=== PATIENT | male | born 1970 | race American Indian/Alaskan Native ===

== ENCOUNTER 2019-11-26 10:38 | Inpatient (IN) | payer MEDICAID, SELFPAY ==
--- NOTE | 2019-11-26 | CT_ITS ---
EXAMINATION: CT ABDOMEN AND PELVIS WITHOUT CONTRAST CLINICAL INFORMATION: Right flank pain COMPARISON: 03/29/2019 and 04/04/2018 TECHNIQUE: Multidetector volumetric imaging was performed from the superior aspect of the liver through the pubic symphysis. Sagittal and coronal reformatted images were obtained on the technologist's workstation. This CT examination was performed using dose optimization techniques as appropriate, variously including the following: *Automated exposure control *Adjustment of mA and/or kV according to patient size (this includes techniques or standardized protocols for targeted exams where dose is matched to indication/reason for exam; i.e. extremities or head) *Use of iterative reconstruction technique DLP: 694 mGy-cm FINDINGS: KIDNEYS AND URETERS: Status post left nephrectomy. Surgical clips in the left renal fossa. No mass. Stable thickening of dura is fashion with associated clips or calcification (image 40/99). Compensatory enlargement of the right kidney. On unenhanced CT a 1.8 cm right upper pole mass (image 33/99) measures 3 Hounsfield units consistent with a cyst. No enhancement on prior CT. No right renal calculi. There is new right perinephric fat stranding and thickening of the renal renal fascia (image 39/99). This suggests acute inflammation such as pyelonephritis or glomerulonephritis. The right ureter is normal in course and caliber. No calculus and no hydronephrosis. LUNG BASES: Minor dependent atelectasis. LIVER, GALLBLADDER, AND BILIARY TREE: The liver is normal in size, shape, and attenuation. No focal hepatic lesion or biliary ductal dilatation is present. The gallbladder is unremarkable with no evidence of radiopaque gallstones, gallbladder wall thickening, or obvious pericholecystic inflammatory changes. PANCREAS: Unremarkable. SPLEEN: There is a small stable laterally positioned accessory spleen (image 26/99). ADRENAL GLANDS: The left adrenal gland is normal in appearance. There is a stable 18 mm right adrenal mass (image 27/99) measuring 10 outside units. This is most consistent with a lipid rich adenoma. BLADDER: The bladder again demonstrates mild wall thickening. No bladder calculus. GASTROINTESTINAL TRACT: The small and large bowel are unremarkable. The appendix is unremarkable. No free air. No free fluid. ABDOMINAL WALL: Postsurgical changes in the left lateral abdominal wall from nephrectomy (image 48/99). LYMPH NODES: No retroperitoneal lymphadenopathy. No pelvic lymphadenopathy. VASCULAR: Surgical clips along the course of the left renal artery. Normal caliber abdominal aorta. No caval or branch vessel abnormality seen. No rich peritoneal collection. PELVIC VISCERA: The prostate and seminal vesicles are symmetric and within normal limits. No pelvic free fluid or lymphadenopathy. Large phlebolith in the right hemipelvis. OSSEOUS STRUCTURES: No suspicious lytic or blastic lesions. IMPRESSION: 1. There is new right perinephric fat stranding and thickening of the renal renal fascia suggesting an acute inflammatory process such as pyelonephritis or glomerulonephritis. Clinical correlation advised. No hydronephrosis. No calculi. 2. Compensatory enlargement of a solitary right kidney following left nephrectomy. Stable right upper pole cyst. 3. Stable 18 mm right adrenal mass. Favor lipid rich adenoma. 4. Stable minor bladder wall thickening.
[2019-11-26 10:56] VITALS: BP 145/94; PULSE 108; RESP 18; TEMP 37.3; O2SAT 98; BMI 32.3
[2019-11-26 11:41] LABS: Glucose Urine UA NEG (NEG); Leukocyte Esterase Urine NEG (NEG); Nitrite Urine NEG (NEG); PH 5.5 (5.0-8.0); Specific Gravity - Urine >= 1.030 (1.005-1.025); Urine Blood NEG (NEG); Urine Ketones NEG (NEG); Urine Protein TRACE MG/DL (NEG-TRACE)
[2019-11-26 11:46] LABS: Color Urine YELLOW
[2019-11-26 11:47] LABS: Appearance Urine CLEAR
[2019-11-26 13:10] LABS: MANUAL DIFF FLAG NO
[2019-11-26] MEDS: Cyclobenzaprine HCl 10 MG TABLET PO (13:11)
[2019-11-26] MEDS: 0.9 % Sodium Chloride 1,000 ML 999 ML IVCONT (13:12)
[2019-11-26 13:13] LABS: Basophils Absolute Auto 0.1 X10*3/uL (0.0-0.2); Basophils Percent Auto 0.4 % (0-2); Eosinophils Absolute Auto 0.2 X10*3/uL (0.0-0.4); Eosinophils Percent Auto 1.7 % (0-4); Hematocrit 48.4 % (42-52); Hemoglobin 16.4 g/dl (14.0-18.0); Imm Gran Abs Auto 0.24 X10*3/uL (0.00-0.03); Imm Gran Pct Auto 1.8 % (0.0-0.4); Lymphocytes Absolute Auto 1.7 X10*3/uL (1.2-4.9); Lymphocytes Percent Auto 12.9 % (20-40); Mean Corpuscular HGB Conc 33.9 g/dl (31.0-36.0); Mean Corpuscular Hemoglobin 31.2 pg (27.0-33.0); Mean Corpuscular Volume 92.2 fL (80-98); Mean Platelet Volume 11.4 fL (9.4-12.4); Monocytes Absolute Auto 1.1 X10*3/uL (0.1-1.2); Monocytes Percent Auto 8.5 % (2-11); Neutrophils Absolute Auto 9.9 X10*3/uL (2.0-8.3); Neutrophils Percent Auto 74.7 % (45-73); Platelet Count 249 X10*3/uL (160-400); Red Blood Count 5.25 X10*6/uL (4.60-5.80); Red Cell Distribution Width 12.8 % (11.0-16.0); White Blood Count 13.3 X10*3/uL (4.8-10.8)
--- NOTE | 2019-11-26 13:15 | ED.ABDPAIN ---
HPI - Abdominal Pain General Chief Complaint: Back Pain/Injury Stated Complaint: kidney pain Time Seen by Provider: 11/26/19 12:12 Source: patient Mode of arrival: ambulatory Limitations: no limitations History of Present Illness HPI narrative: 49yoM c PMHx of asthma, arthritis and PSHx of left kidney removed presenting to the ED c c/o R flank pain while walking today. Reports s red jack to right flank denies injury. Admit to associated increased urgency/frequency. Worse with movement. Relieved c rest. Associated symptoms: denies other symptoms Related Data Home Medications Medication Instructions Recorded Confirmed montelukast [Singulair] 10 mg PO DAILY 11/26/19 11/26/19 nicotine 11/26/19 pregabalin [Lyrica] 150 mg PO BID 11/26/19 11/26/19 Allergies Allergy/AdvReac Type Severity Reaction Status Date / Time ibuprofen [From MOTRIN] Allergy Unknown KIDNEY Verified 11/26/19 11:05 ISSUES mushroom AdvReac Mild VOMITING Verified 11/26/19 11:05 OMNIPAQUE (IV Contrast) Allergy Mild HIVES Uncoded 11/08/19 15:01 Review of Systems Review of Systems Yes all other systems are reviewed and are negative Constitutional: Reports as per HPI, Denies body ache(s), Denies chills, Denies fever(s), Denies headache(s), Denies lethargy, Denies malaise and Denies weakness Eyes: Reports as per HPI Reports as per HPI, Denies dysphagia, Denies headache(s) and Denies odynophagia Cardiovascular: Reports as per HPI, Denies chest pain, Denies Epigastric Pain and Denies dyspnea Respiratory: Reports as per HPI and Denies dyspnea Gastrointestinal: Reports as per HPI, Denies belching, Denies melena, Denies bloating, Denies hematochezia, Denies change in bowel habits, Denies tenesmus, Denies change in stool character, Denies coffee ground emesis, Denies constipation, Denies GI cramping, Denies dysphagia, Denies excessive flatus, Denies early satiety, Denies dyspepsia, Denies heartburn, Denies fecal incontinence, Denies diarrhea, Denies loose stools, Denies nausea, Denies odynophagia, Denies vomiting, Denies hematemesis and Denies other Genitourinary: Reports as per HPI, Denies hematospermia, Denies hematuria, Reports oliguria, Reports difficulty urinating, Denies dysuria, Reports flank pain, Denies penile discharge, Reports urinary frequency, Reports urinary hesitancy, Denies urinary incontinence and Reports urinary urgency Musculoskeletal: Reports as per HPI, Denies numbness and Denies tingling Reports as per HPI, Denies headache(s), Denies numbness, Denies tingling and Denies weakness Endocrine: Reports as per HPI, Denies polyphagia, Denies polydipsia and Denies polyuria Hematologic/Lymphatic: Reports as per HPI Allergic/Immunologic: Reports as per HPI Physical Exam Vital Signs and I&O and Narrative: Vital Signs and I&O: Vital Signs Temp 97.3 F 11/26/19 20:00 Pulse 86 11/26/19 20:00 Resp 18 11/26/19 20:00 BP 137/87 11/26/19 20:00 Pulse Ox 97 11/26/19 20:00 Intake & Output 11/26/19 11/26/19 11/27/19 06:59 18:59 06:59 Intake Total 1000 / 1000 Balance 1000 / 1000 Weight 90.718 kg Intake: Intake, IV Amoun t 1000 / 1000 0.9 % Sodium C hloride 1,000 ml 1000 / 1000 @ 999 mls/hr I VCONT .Q1H1M [facility] Rx#:[id number] Body Mass Index 32.3 All vitals reviewed and pt c mildly hypertensive otherwise all other vitals are within normal limits. Const: General: cooperative, healthy appearing, comfortable, no acute distress, well developed, alert, awake and Physically active Nutritional Appearance: average body habitus Orientation/consciousness: patient oriented x3 Limitations: no limitations HENMT: Head: Yes normal to inspection Ears: hearing grossly normal bilaterally General nose exam: Normal external nose present Face and sinus: Yes normal facial exam Mouth: Normal oral and palatal mucosa present and moist mucous membranes Throat: Yes posterior oropharynx normal Eyes: General: appearance normal, both eyes and all related structures Visual Yu: normal visual yu by confrontation Pupils: Equal, round and reactive pupils present EOM: EOMs intact bilaterally Neck: Neck: Yes normal visual inspection, Yes full ROM, Yes no lymphadenopathy, Yes no meningeal signs, Yes trachea midline and Yes supple Chest: Chest palpation & inspection: normal inspection of the chest Resp: Effort & Inspection: normal respiratory effort and able to speak in complete sentences Auscultation: clear to auscultation bilaterally, no crackles, no rales, no rhonchi and no wheezes Cardio: Rate: regular rate Rhythm: regular rhythm Heart sounds: S1 normal heart sound present and S2 normal heart sound present Peripheral pulses: Peripheral pulses 2+ throughout GI: Inspection: Yes normal to inspection Palpation (GI): Soft to palpation, Tenderness to palpation present (GI) (Right Flank) and No hepatosplenomegaly present Percussion: Yes normal to percussion Auscultation: normal bowel sounds : General: Yes no CVA tenderness Back/Spine/Pelvis: Back: no CVA tenderness Cervical Spine: normal cervical lordosis and cervical ROM normal Thoracic/Lumbar Spine: thoracic and lumbar spine normal to inspection and thoraco-lumbar ROM normal Skin: Lesions: no lesions Rashes: rashes noted (to right flank erythemous) Wounds: no wounds Neuro: General: patient oriented x3, gait normal and no meningeal signs Cranial nerves: Yes Equal, round and reactive pupils present Cognition (Neuro): normal cognition Motor exam (neuro): 5/5 motor strength present throughout Sensory Exam: Normal double simultaneous stimulation for sensation Extrem: General: Yes normal to inspection, Yes full ROM and Yes capillary refill normal Course Course Course Narrative: Patient seen at 12:15PM 49yoM c PMHx of asthma, arthritis and PSHx of left kidney removed presenting to the ED c c/o R flank pain while walking today. Reports s red jack to right flank denies injury. Admit to associated increased urgency/frequency. Worse with movement. Relieved c rest. Denies fevers, N/V, CP/SOB, back pain, hematuria, constipation or diarrhea. - Concern for muscle strain vs kidney stones vs UTI/Pyelonephritis - Plan: Labs, UA, CT scan of abd/pelvis c IV contrast. Provide IVF's, 10 mg of flexeril and re-evaluate Labs Returned 15PM - Pt c Mild elevated WBC at 13,000. Otherwise all other labs WNL. CT scan of abd/pelvis c IV contrast revealed IMPRESSION: 1. There is new right perinephric fat stranding and thickening of the renal renal fascia suggesting an acute inflammatory process such as pyelonephritis or glomerulonephritis. Clinical correlation advised. No hydronephrosis. No calculi. 2. Compensatory enlargement of a solitary right kidney following left nephrectomy. Stable right upper pole cyst. 3. Stable 18 mm right adrenal mass. Favor lipid rich adenoma. 4. Stable minor bladder wall thickening. - Therefore 2 gm of Rocephin ordered at this time. Plan is to admit for UTI/Pyelonephritis. - Pt understands and agrees with plan. MDM - Abdominal Pain Lab Data Result diagrams: 11/26/19 13:06 11/26/19 13:06 Labs: Lab Results 11/26/19 11/26/19 11/26/19 Range/Units 11:28 13:06 13:06 WBC 13.3 H (4.8-10.8) X10*3/uL RBC 5.25 (4.60-5.80) X10*6/uL Hgb 16.4 (14.0-18.0) g/dl Hct 48.4 (42-52) % MCV 92.2 (80-98) fL MCH 31.2 (27.0-33.0) pg MCHC 33.9 (31.0-36.0) g/dl RDW 12.8 (11.0-16.0) % Plt Count 249 (160-400) X10*3/uL MPV 11.4 (9.4-12.4) fL Immature Gran % (Auto) 1.8 H (0.0-0.4) % Neut % (Auto) 74.7 H (45-73) % Lymph % (Auto) 12.9 L (20-40) % [place] % (Auto) 8.5 (2-11) % Eos % (Auto) 1.7 (0-4) % Baso % (Auto) 0.4 (0-2) % Neut # (Auto) 9.9 H (2.0-8.3) X10*3/uL Lymph # (Auto) 1.7 (1.2-4.9) X10*3/uL [place] # (Auto) 1.1 (0.1-1.2) X10*3/uL Eos # (Auto) 0.2 (0.0-0.4) X10*3/uL Baso # (Auto) 0.1 (0.0-0.2) X10*3/uL Abs Immat Gran (auto) 0.24 H (0.00-0.03) X10*3/uL Absolute Nucleated RBC 0.000 (0.0-0.012) X10*3/uL Nucleated RBC % (auto) 0.0 (0.0-0.2) /100WBC Hold Purple Top SEE NOTE Sodium (135-145) mmol/L Potassium (3.3-5.1) mmol/l Chloride (96-108) mmol/L Carbon Dioxide (22-29) mmol/L Anion Gap (12-20) BUN (9-16) mg/dL Creatinine (0.5-1.4) mg/dL Estim Creat Clear Calc Estimated GFR Random Glucose (60-115) mg/dL Lactic Acid (0.5-2.0) mmol/L Calcium (8.4-10.2) mg/dL Urine Color YELLOW Urine Appearance CLEAR Urine pH 5.5 (5.0-8.0) Ur Specific [place] >= 1.030 H (1.005-1.025) Urine Protein TRACE (NEG-TRACE) MG/DL Urine Glucose (UA) NEG (NEG) MG/DL Urine Ketones NEG (NEG) MG/DL Urine Blood NEG (NEG) Urine Nitrite NEG (NEG) Ur Leukocyte Esterase NEG (NEG) Urine RBC (0) /HPF Urine WBC (0-4) /HPF Ur Squamous Epith Cells /LPF Urine Bacteria /LPF 11/26/19 11/26/19 11/26/19 Range/Units 13:06 15:23 15:24 WBC (4.8-10.8) X10*3/uL RBC (4.60-5.80) X10*6/uL Hgb (14.0-18.0) g/dl Hct (42-52) % MCV (80-98) fL MCH (27.0-33.0) pg MCHC (31.0-36.0) g/dl RDW (11.0-16.0) % Plt Count (160-400) X10*3/uL MPV (9.4-12.4) fL Immature Gran % (Auto) (0.0-0.4) % Neut % (Auto) (45-73) % Lymph % (Auto) (20-40) % [place] % (Auto) (2-11) % Eos % (Auto) (0-4) % Baso % (Auto) (0-2) % Neut # (Auto) (2.0-8.3) X10*3/uL Lymph # (Auto) (1.2-4.9) X10*3/uL [place] # (Auto) (0.1-1.2) X10*3/uL Eos # (Auto) (0.0-0.4) X10*3/uL Baso # (Auto) (0.0-0.2) X10*3/uL Abs Immat Gran (auto) (0.00-0.03) X10*3/uL Absolute Nucleated RBC (0.0-0.012) X10*3/uL Nucleated RBC % (auto) (0.0-0.2) /100WBC Hold Purple Top Sodium 137 (135-145) mmol/L Potassium 4.5 (3.3-5.1) mmol/l Chloride 105 (96-108) mmol/L Carbon Dioxide 24 (22-29) mmol/L Anion Gap 13 (12-20) BUN 18 H (9-16) mg/dL Creatinine 1.05 (0.5-1.4) mg/dL Estim Creat Clear Calc 87.7 Estimated GFR > 60 Random Glucose 98 (60-115) mg/dL Lactic Acid 1.2 (0.5-2.0) mmol/L Calcium 9.1 (8.4-10.2) mg/dL Urine Color YELLOW Urine Appearance CLEAR Urine pH 5.5 (5.0-8.0) Ur Specific [place] 1.020 (1.005-1.025) Urine Protein 1+ H (NEG-TRACE) MG/DL Urine Glucose (UA) NEG (NEG) MG/DL Urine Ketones NEG (NEG) MG/DL Urine Blood TRACE (NEG) Urine Nitrite NEG (NEG) Ur Leukocyte Esterase NEG (NEG) Urine RBC 1-4 (0) /HPF Urine WBC 1-4 (0-4) /HPF Ur Squamous Epith Cells TRACE /LPF Urine Bacteria TRACE /LPF Critical Care Time Critical Care Time Critical Care Time: Yes Total Critical Care Time: 45 Attestation: I attest to this document Discharge Plan Discharge Clinical Impression: Acute pyelonephritis, Acute right flank pain Patient Disposition: Admitted As Inpatient Interventions: Admission Worksheet (ED) Last Done: 11/26/19 19:34 Discharge Date/Time: 11/26/19 19:43 [facility] Past Medical History Attestation statement: The following information was validated with the patient. Medical History Arthritis Asthma Surgical History H/O kidney removal H/O neck surgery Previous back surgery Social History Social History Household Members: Spouse and Children Housing: Apartment Do you presently have visiting nurse or other home services: No Alcohol intake: current Alcohol intake frequency: a few times a month Smoking Status: Current every day smoker Years Smoked: 30 Smoked in Last 30 Days: Yes Smoking Quit Date: 0900 Use of substances other than those prescribed or required for medical reasons: No Have you been hit, kicked, punched, or otherwise hurt by someone within the past year? If so, by whom?: No Do you feel safe in your current relationship?: Yes Is there a partner from a previous relationship who is making you feel unsafe now?: No Are you made to feel afraid or neglected: No Advance Directives: No Advance Directives Information Provided: Yes Do you have thoughts of harming others: None Do you have a plan to hurt others: No Plan Recently lost weight without trying: No
[2019-11-26 13:32] LABS: Anion Gap 13 (12-20); Blood Urea Nitrogen 18 mg/dL (9-16); Calcium 9.1 mg/dL (8.4-10.2); Carbon Dioxide 24 mmol/L (22-29); Chloride 105 mmol/L (96-108); Creatinine Clr Calc Pharmacy 87.7; Estimated Glomerular Filt Rate > 60; Glucose Random 98 mg/dL (60-115); Potassium 4.5 mmol/l (3.3-5.1); Sodium 137 mmol/L (135-145)
[2019-11-26 14:29] VITALS: BP 149/89; PULSE 86; RESP 18; O2SAT 97
[2019-11-26 15:06] VITALS: BP 161/83; PULSE 75; RESP 16; TEMP 36.8; O2SAT 99
[2019-11-26 15:34] LABS: Glucose Urine UA NEG (NEG); Leukocyte Esterase Urine NEG (NEG); Nitrite Urine NEG (NEG); PH 5.5 (5.0-8.0); Urine Blood TRACE (NEG); Urine Ketones NEG (NEG); Urine Protein 1+ MG/DL (NEG-TRACE)
[2019-11-26 15:36] LABS: Appearance Urine CLEAR; Color Urine YELLOW
[2019-11-26 15:39] LABS: Squamous Epithelial Cell Urine TRACE /LPF
[2019-11-26 15:40] LABS: Bacteria Urine TRACE /LPF
[2019-11-26 15:49] LABS: Lactic Acid 1.2 mmol/L (0.5-2.0)
[2019-11-26] MEDS: levoFLOXacin/D5W 750 MG/150 ML PIGGYBACK 100 MG IV (16:13)
--- NOTE | 2019-11-26 19:19 | PC.NURSE ---
Report taken from Usha, this RN resuming care. Pt found sitting upright in bed, speaking full sentences, inquiring when he will be admitted to floor. Continue to monitor.
[2019-11-26 20:00] VITALS: BP 137/87; PULSE 86; RESP 18; TEMP 36.3; O2SAT 97
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
[2019-11-26] MEDS: 0.9 % Sodium Chloride Flush 3 ML SYRINGE 2 ML IVFLUSH (20:24)
[2019-11-26] MEDS: oxyCODONE HCl Immed Release 5 MG TABLET PO (21:00)
[2019-11-26] MEDS: 0.9 % Sodium Chloride 1,000 ML 100 ML IVCONT (22:12)
[2019-11-26] MEDS: Flu Vacc QS2020-21(6mos up)/PF 0.5 ML SYRINGE IM (22:15)
[2019-11-26 23:22] VITALS: BP 137/75; PULSE 95; RESP 18; TEMP 36.9; O2SAT 95
[2019-11-27 02:39] VITALS: RESP 18
[2019-11-27] MEDS: Morphine Sulfate 2 MG/ML CARTRIDGE 1 MG IVPUSH (02:39)
--- NOTE | 2019-11-27 04:45 | PC.NURSE ---
Patient alert and oriented, vss, c/o 08/30 R-flank pain unable to give oxycodone on shift. Discussed with ordered for 1mg morphine IV given as ordered. Patient resting in bed eyes closed, NS running at 100ml/hr Will continue to monitor
[2019-11-27] MEDS: oxyCODONE HCl Immed Release 5 MG TABLET PO ×4 (05:19→23:58)
[2019-11-27 05:38] VITALS: BMI 32.4
[2019-11-27 05:59] VITALS: BMI 32.3
[2019-11-27 06:34] LABS: MANUAL DIFF FLAG NO
[2019-11-27 06:55] LABS: Basophils Absolute Auto 0.1 X10*3/uL (0.0-0.2); Basophils Percent Auto 0.5 % (0-2); Eosinophils Absolute Auto 0.2 X10*3/uL (0.0-0.4); Eosinophils Percent Auto 1.7 % (0-4); Hematocrit 45.2 % (42-52); Hemoglobin 14.8 g/dl (14.0-18.0); Imm Gran Abs Auto 0.33 X10*3/uL (0.00-0.03); Imm Gran Pct Auto 2.7 % (0.0-0.4); Lymphocytes Absolute Auto 2.4 X10*3/uL (1.2-4.9); Lymphocytes Percent Auto 19.8 % (20-40); Mean Corpuscular HGB Conc 32.7 g/dl (31.0-36.0); Mean Corpuscular Hemoglobin 31.1 pg (27.0-33.0); Mean Platelet Volume 11.9 fL (9.4-12.4); Monocytes Absolute Auto 1.2 X10*3/uL (0.1-1.2); Monocytes Percent Auto 9.5 % (2-11); Neutrophils Absolute Auto 8.1 X10*3/uL (2.0-8.3); Neutrophils Percent Auto 65.8 % (45-73); Platelet Count 226 X10*3/uL (160-400); Red Blood Count 4.76 X10*6/uL (4.60-5.80); Red Cell Distribution Width 12.8 % (11.0-16.0); White Blood Count 12.3 X10*3/uL (4.8-10.8)
[2019-11-27 07:37] LABS: Anion Gap 13 (12-20); Blood Urea Nitrogen 24 mg/dL (9-16); Calcium 8.5 mg/dL (8.4-10.2); Carbon Dioxide 22 mmol/L (22-29); Chloride 107 mmol/L (96-108); Creatinine Clr Calc Pharmacy 80.8; Estimated Glomerular Filt Rate > 60; Glucose Random 97 mg/dL (60-115); Potassium 4.1 mmol/l (3.3-5.1); Sodium 138 mmol/L (135-145)
[2019-11-27 08:00] VITALS: BP 136/95; PULSE 82; RESP 20; TEMP 36.6; O2SAT 97
[2019-11-27] MEDS: 0.9 % Sodium Chloride 1,000 ML 100 ML IVCONT ×2 (10:44→20:49)
--- NOTE | 2019-11-27 11:14 | MHC.CM.PN ---
Patient lives alone in a 6 apartment building and he is functionally independent. Patient's goal is to return home and CM has initiated and will follow for dc planning. Patient's Girlfriend/Susi is his HCP and his PCP is Dr. Mirtha Lunsford.
[2019-11-27 12:03] VITALS: BP 143/79; PULSE 77; RESP 18; TEMP 36.6; O2SAT 96
--- NOTE | 2019-11-27 12:18 | PC.NURSE ---
Administratively documented meds from 11/26/2019 as not given. Confirmed with ED RN Usha that they were not given as PA had entered them in error.
--- NOTE | 2019-11-27 12:30 | PC.NURSE ---
Mo from ED 11/26/2019 administratively documented as complete. Confirmed with ED RN Usha she administered it and it continued on transfer. [facility] medical staff assistant confirm it was infused but due to Expanse access issue, were unable to document completion time.
[2019-11-27 14:52] VITALS: BMI 32.3
[2019-11-27 16:00] VITALS: BP 148/85; PULSE 75; RESP 20; TEMP 36.4; O2SAT 98
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
--- NOTE | 2019-11-27 16:30 | P.CNID_ITS ---
History of Present Illness Data of Consult Primary Care Provider: Mirtha Lunsford MD Review of Systems Constitutional: Constitutional: Denies headache(s) and Denies weakness ENT: Denies headache(s) Musculoskeletal: Musculoskeletal: Denies numbness and Denies tingling Neurologic: Reports as per HPI, Denies headache(s), Denies numbness, Denies tingling and Denies weakness PMFSH Past Medical History Medical History Arthritis Asthma Surgical History Surgical History H/O kidney removal H/O neck surgery Previous back surgery Social History Social History Household Members: Spouse and Children Housing: Apartment Alcohol intake: current Alcohol intake frequency: a few times a month Smoking Status: Current every day smoker Years Smoked: 30 Advance Directives: No Advance Directives Information Provided: No service: No Current occupational status: employed Meds Allergies Allergy/AdvReac Type Severity Reaction Status Date / Time ibuprofen [From MOTRIN] Allergy Unknown KIDNEY Verified 11/26/19 11:05 ISSUES mushroom AdvReac Mild VOMITING Verified 11/26/19 11:05 OMNIPAQUE (IV Contrast) Allergy Mild HIVES Uncoded 11/08/19 15:01 Home Medications Medication Instructions Recorded Confirmed Type montelukast [Singulair] 10 mg PO DAILY 11/26/19 11/26/19 History nicotine 11/26/19 History pregabalin [Lyrica] 150 mg PO BID 11/26/19 11/26/19 History Physical Exam Vital Signs and I&O and Narrative: Vital Signs and I&O: Vital Signs Temp 97.9 F 11/27/19 12:03 Pulse 77 11/27/19 12:03 Resp 18 11/27/19 12:03 BP 143/79 H 11/27/19 12:03 Pulse Ox 96 11/27/19 12:03 Intake & Output 11/26/19 11/27/19 11/27/19 18:59 06:59 18:59 Intake Total 1000 / 2710 1710 / 2710 1720 / 1720 Output Total 601 / 601 Balance 1000 / 2109 1109 / 2109 1720 / 1720 Urine Output (Aver age ml/kg/hr) 0.55 0.55 Weight 200 lb 200 lb 0.732 oz 200 lb 0.724 oz Intake: Intake, Oral [place] unt 1560 / 1560 720 / 720 Intake, IV Amoun t 1000 / 1150 150 / 1150 1000 / 1000 levoFLOXacin/D 5W 750 mg In 150 150 / 150 ml @ 100 mls/h r IV ONCE ONE Rx# :[id number] 0.9 % Sodium C hloride 1,000 ml 1000 / 1000 1000 / 1000 @ 100 mls/hr I VCONT .Q10H JUAN Rx#:[id number] Output: Output, Urine Am ount 601 / 601 Other: Breakfast % Eate n 100% Dinner % Eaten 100% Body Mass Index 32.3 Results Labs CBC & Chem 7: 11/28/19 05:35 11/27/19 05:34 Labs: Short CBC 11/26/19 11/27/19 Range/Units 15:24 05:34 WBC 12.3 H (4.8-10.8) X10*3/uL Hgb 14.8 (14.0-18.0) g/dl Hct 45.2 (42-52) % Plt Count 226 (160-400) X10*3/uL Urine Color YELLOW Urine Appearance CLEAR Urine pH 5.5 (5.0-8.0) Ur Specific [place] 1.020 (1.005-1.025) Urine Protein 1+ H (NEG-TRACE) MG/DL Urine Glucose (UA) NEG (NEG) MG/DL Urine Ketones NEG (NEG) MG/DL Urine Blood TRACE (NEG) Urine Nitrite NEG (NEG) Ur Leukocyte Esterase NEG (NEG) Urine RBC 1-4 (0) /HPF Urine WBC 1-4 (0-4) /HPF Ur Squamous Epith Cells TRACE /LPF Urine Bacteria TRACE /LPF BMP 11/27/19 05:34 Sodium 138 Potassium 4.1 Chloride 107 Carbon Dioxide 22 BUN 24 H Creatinine 1.14 Calcium 8.5
--- NOTE | 2019-11-27 17:32 | P.PNIM_ITS ---
Subjective Subjective Date of Service: 11/27/19 Interval History: patient admitted for right flank pain and diagnosed to have acute pyelonephritis by imaging studies, today patient complaining of persistent right flank pain radiating from back towards the right groin, no hematuria no fever chills. Review of Systems General no fever no chills. CVS no chest pain, no palpitation. GI no nausea no vomiting no diarrhea. Skin no rashes Physical Exam Vital Signs and I&O and Narrative: Vital Signs and I&O: Vital Signs Temp 97.6 F 11/27/19 16:00 Pulse 75 11/27/19 16:00 Resp 20 11/27/19 16:00 BP 148/85 H 11/27/19 16:00 Pulse Ox 98 11/27/19 16:00 Intake & Output 11/26/19 11/27/19 11/27/19 18:59 06:59 18:59 Intake Total 1000 / 2710 1710 / 2710 1720 / 1720 Output Total 601 / 601 Balance 1000 / 2109 1109 / 2109 1720 / 1720 Urine Output (Aver age ml/kg/hr) 0.55 0.55 Weight 90.718 kg 90.739 kg 90.739 kg Intake: Intake, Oral [place] unt 1560 / 1560 720 / 720 Intake, IV Amoun t 1000 / 1150 150 / 1150 1000 / 1000 levoFLOXacin/D 5W 750 mg In 150 150 / 150 ml @ 100 mls/h r IV ONCE ONE Rx# :[id number] 0.9 % Sodium C hloride 1,000 ml 1000 / 1000 1000 / 1000 @ 100 mls/hr I VCONT .Q10H JUAN Rx#:[id number] Output: Output, Urine Am ount 601 / 601 Other: Breakfast % Eate n 100% Dinner % Eaten 100% Body Mass Index 32.3 General patient awake alert ambulating with no distress. Neck is supple no JVD. CVS no chest pain, no palpitation. Respiratory lungs clear to auscultation no respiratory distress no wheeze or rhonchi. Gastrointestinal abdomen soft nontender no guarding no rigidity bowel sounds audible Skin no rash Extremities no edema. Neuro nonfocal Objective Data Current Medications Generic Name Dose Route Start Last Admin Trade Name Freq PRN Reason Stop Dose Admin Acetaminophen 650 mg 11/26/19 20:20 Acetaminophen 650 Mg Supp.Rect [place] Q6H PRN Pain, Mild (Pain Scale 1-3) Sodium Chloride 1,000 mls @ 100 mls/hr 11/26/19 20:20 11/27/19 10:44 Ns IVCONT 100 mls/hr .Q10H JUAN Administration Ondansetron HCl 4 mg 11/26/19 20:20 Ondansetron Hcl 4 Mg/2 Ml Vial IVPUSH Q8H PRN Nausea and Vomiting Oxycodone HCl 5 mg 11/26/19 20:20 11/27/19 11:34 Oxycodone Hcl Immed Release 5 Mg Tablet PO 5 mg Q6H PRN Administration Pain, Severe (Pain Scale 7-10) Sodium Chloride 2 ml 11/27/19 00:00 11/27/19 11:00 0.9 % Sodium Chloride Flush 3 Ml Syringe IVFLUSH Not Given QSHIFT [facility] Labs CBC & Chem 7: 11/27/19 05:34 11/27/19 05:34 Labs: Laboratory Results - last 24 hr 11/27/19 11/27/19 05:34 05:34 MCV 95.0 MCH 31.1 MCHC 32.7 RDW 12.8 Plt Count 226 MPV 11.9 Immature Gran % (Auto) 2.7 H Neut % (Auto) 65.8 Lymph % (Auto) 19.8 L [place] % (Auto) 9.5 Eos % (Auto) 1.7 Baso % (Auto) 0.5 Neut # (Auto) 8.1 Lymph # (Auto) 2.4 [place] # (Auto) 1.2 Eos # (Auto) 0.2 Baso # (Auto) 0.1 Abs Immat Gran (auto) 0.33 H Absolute Nucleated RBC 0.000 Nucleated RBC % (auto) 0.0 Anion Gap 13 Estim Creat Clear Calc 80.8 Estimated GFR > 60 Random Glucose 97 Calcium 8.5 Assessment and Plan (1) Acute pyelonephritis: Problem details: He is doing better Cultures are pending Status: Acute (2) Acute right flank pain: Status: Acute (3) Previous back surgery: Status: Acute (4) Asthma: Status: Acute Assessment and Plan: 1. Acute pyelonephritis. patient feeling better still with right flank pain continue IV ceftriaxone follow urine cultures, no evidence of sepsis, WBC gradually trending down, patient seen by Infectious Disease she recommends Ce ftin for 10 days. 2. History of asthma, currently no acute exacerbation. 3. Deep vein thrombosis prophylaxis. Low risk. Recommend early ambulation.
[2019-11-27 23:24] VITALS: BP 145/79; PULSE 77; RESP 18; TEMP 36.6; O2SAT 97
[2019-11-27] MEDS: 0.9 % Sodium Chloride Flush 3 ML SYRINGE 2 ML IVFLUSH (23:59)
[2019-11-28 03:13] VITALS: BMI 33.7
[2019-11-28] MEDS: 0.9 % Sodium Chloride 1,000 ML 100 ML IVCONT (06:29)
[2019-11-28 06:37] LABS: MANUAL DIFF FLAG NO
[2019-11-28 06:50] LABS: Basophils Absolute Auto 0.1 X10*3/uL (0.0-0.2); Basophils Percent Auto 0.4 % (0-2); Eosinophils Absolute Auto 0.3 X10*3/uL (0.0-0.4); Eosinophils Percent Auto 2.7 % (0-4); Hematocrit 44.1 % (42-52); Hemoglobin 14.5 g/dl (14.0-18.0); Imm Gran Abs Auto 0.32 X10*3/uL (0.00-0.03); Imm Gran Pct Auto 2.9 % (0.0-0.4); Lymphocytes Absolute Auto 2.4 X10*3/uL (1.2-4.9); Lymphocytes Percent Auto 21.4 % (20-40); Mean Corpuscular HGB Conc 32.9 g/dl (31.0-36.0); Mean Corpuscular Hemoglobin 31.5 pg (27.0-33.0); Mean Corpuscular Volume 95.7 fL (80-98); Mean Platelet Volume 11.9 fL (9.4-12.4); Monocytes Percent Auto 8.7 % (2-11); Neutrophils Absolute Auto 7.2 X10*3/uL (2.0-8.3); Neutrophils Percent Auto 63.9 % (45-73); Platelet Count 202 X10*3/uL (160-400); Red Blood Count 4.61 X10*6/uL (4.60-5.80); Red Cell Distribution Width 12.8 % (11.0-16.0); White Blood Count 11.2 X10*3/uL (4.8-10.8)
[2019-11-28 07:35] VITALS: BP 154/99; PULSE 94; RESP 20; TEMP 36.7; O2SAT 95
[2019-11-28] MEDS: oxyCODONE HCl Immed Release 5 MG TABLET PO (09:26)
--- NOTE | 2019-11-28 11:41 | MHC.CM.PN ---
Patient has been medically cleared for dc to home today, no services.
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
== END 2019-11-28 12:01 | disposition home or self-care (01) | DRG 463 ==
LOC: HO.ED 16:43 → HO.IMC 17:13
PROVIDERS: Physician Assistant Medical; Admitting Provider Hospitalist; PCP Family Medicine; Visit Provider Hospitalist
DX: N10 Acute pyelonephritis (principal); F17.210 Nicotine dependence, cigarettes, uncomplicated; J45.909 Unspecified asthma, uncomplicated; I12.9 Hypertensive chronic kidney disease with stage 1 through stage 4 chronic kidney disease, or unspecified chronic kidney disease; N18.9 Chronic kidney disease, unspecified; Z71.6 Tobacco abuse counseling; Z90.5 Acquired absence of kidney; Z88.6 Allergy status to analgesic agent; Z79.899 Other long term (current) drug therapy
CPT/HCPCS: 36415; 74176; 80048; 81001; 81003; 83605; 85025; 87040; 87086; 90686; 96361; 96365; 96367; 99219; 99284; 99291; J1956; J2270

== ENCOUNTER 2019-11-29 15:05 | Emergency (ER) | payer MEDICAID, SELFPAY ==
--- NOTE | 2019-11-29 15:52 | PC.NURSE ---
called for triage x2, no answer.
== END 2019-11-29 17:30 | disposition left against medical advice (07) ==
PROVIDERS: Emergency Provider Emergency Medicine; PCP Family Medicine
DX: R10.9 Unspecified abdominal pain (principal)
CPT/HCPCS: 99281

== ENCOUNTER 2020-01-31 07:48 | Outpatient (REF) | payer MEDICAID, SELFPAY | END 2020-01-31 07:49 | disposition home or self-care (01) | LOC: HO.LAB 07:48 | PROVIDERS: PCP Family Medicine; Visit Provider Internal Medicine | DX: Z20.828 Contact with and (suspected) exposure to other viral communicable diseases (principal) | CPT/HCPCS: C9803; U0003 ==

== ENCOUNTER 2020-02-25 03:58 | Emergency (ER) | payer MEDICAID, SELFPAY ==
[2020-02-25 04:05] VITALS: BP 146/94; PULSE 95; RESP 22; TEMP 36.3; O2SAT 94; BMI 33.9
[2020-02-25] MEDS: Albuterol/Iprat 2.5/0.5MG 3 ML AMPUL.NEB INHALE (04:15)
[2020-02-25 04:16] VITALS: PULSE 91; O2SAT 96
--- NOTE | 2020-02-25 04:32 | ED.ASTHMA ---
HPI - Asthma General Chief Complaint: Asthma Stated Complaint: Asthma Time Seen by Provider: 02/25/20 04:28 Source: patient Mode of arrival: ambulatory Limitations: no limitations History of Present Illness HPI Narrative: Patient history of asthma/COPD smoker planning to quit, comes here for increased shortness of breath since last night with audible wheezing and dry cough no fever no chills no recent exposure to COVID feels this to similar attacks as in the past complaint: asthma attack Onset (ago): day(s) (1) Severity: moderate Associated symptoms: dry cough Asthma History: adult onset Treatments Prior to Arrival: inhaled bronchodilator Related Data Current Asthma Therapy: inhaled bronchodilator Home Medications Medication Instructions Recorded Confirmed montelukast [Singulair] 10 mg PO DAILY 11/26/19 11/26/19 nicotine 11/26/19 pregabalin [Lyrica] 150 mg PO BID 11/26/19 11/26/19 Previous Rx's Medication Instructions Recorded cefuroxime axetil 500 mg PO Q12H #20 tab 11/28/19 prednisone 40 mg PO DAILY #10 tab 02/25/20 Allergies Allergy/AdvReac Type Severity Reaction Status Date / Time ibuprofen [From MOTRIN] Allergy Unknown KIDNEY Verified 11/26/19 11:05 ISSUES mushroom AdvReac Mild VOMITING Verified 11/26/19 11:05 OMNIPAQUE (IV Contrast) Allergy Mild HIVES Uncoded 11/08/19 15:01 Review of Systems Review of Systems: Constitutional : No Weight loss, No Fever, No Chills ENT/Mouth : No sore throat, No Rhinorrhea Eyes: No Eye Pain, No Swelling Cardiovascular : No Chest Pain, no palpitations Respiratory :++Cough, No Sputum, ++ shortness of breath Gastrointestinal : no Nausea, No Vomiting, No Diarrhea, No abdominal Pain, no black stools Genitourinary : No Dysuria, No Urinary Frequency Musculoskeletal : No joint pain, No Myalgias, No Joint Swelling Skin : No Skin Lesions, No rash Neuro : No Weakness, No Numbness, No Dizziness, No Headache Psych : No Anxiety/Panic, No Depression Heme/Lymph: No Bruising, No Lymphadenopathy Endocrine : No Polyuria, No Polydipsia All other systems reviewed and are negative PMFSH Past Medical History Medical History Arthritis Asthma Surgical History H/O kidney removal H/O neck surgery Previous back surgery Social History Social History Household Members: Spouse and Children Housing: Apartment Alcohol intake: current Alcohol intake frequency: holidays/special occasions only Smoking Status: Former smoker Years Smoked: 30 Smoked in Last 30 Days: Yes Use of substances other than those prescribed or required for medical reasons: No Advance Directives: No Advance Directives Information Provided: No service: No Current occupational status: employed Physical Exam Vital Signs: Vital Signs: Last Vital Signs Temp 97.4 F 02/25/20 04:05 Pulse 80 02/25/20 06:14 Resp 15 02/25/20 06:00 BP 143/86 H 02/25/20 06:00 Pulse Ox 95 02/25/20 06:00 Body Mass Index 33.9 Appearance: Alert. Oriented X3. No acute distress. Frequent dry cough Eyes: Pupils equal, round and reactive to light. ENT: Pharynx normal. Neck: Normal inspection. Neck supple. CVS: Normal heart rate and rhythm. Pulses normal. Respiratory: Mild respiratory distress. Bilateral diffuse wheezing and rhonchi no crackles no dullness on percussion Abdomen: Soft and nontender. Bowel sounds are present, no mass palpable, no CVA tenderness Skin: Skin warm and dry. Normal skin color. Normal skin turgor. Extremities: No lower extremity edema. No calf tenderness Neuro: Oriented X 3. No motor deficit. No sensory deficit. Course Course Course Narrative: Patient with COPD/asthma came with increased shortness of breath chest x-ray negative for any acute infiltrate COVID test is negative labs stable with normal WBC count. Patient responded to DuoNeb treatment and IV steroid will give him another albuterol treatment as he is saturating 92% at room air discharge him home on prednisone and to continue albuterol inhalers MDM - Asthma Lab Data Result diagrams: 02/25/20 04:50 02/25/20 04:51 Labs: Lab Results 02/25/20 02/25/20 02/25/20 Range/Units 04:50 04:50 04:51 WBC 8.0 (4.8-10.8) X10*3/uL RBC 5.15 (4.60-5.80) X10*6/uL Hgb 15.7 (14.0-18.0) g/dl Hct 47.4 (42-52) % MCV 92.0 (80-98) fL MCH 30.5 (27.0-33.0) pg MCHC 33.1 (31.0-36.0) g/dl RDW 13.0 (11.0-16.0) % Plt Count 233 (160-400) X10*3/uL MPV 11.4 (9.4-12.4) fL Immature Gran % (Auto) 0.6 H (0.0-0.4) % Neut % (Auto) 50.9 (45-73) % Lymph % (Auto) 28.3 (20-40) % [place] % (Auto) 10.9 (2-11) % Eos % (Auto) 8.7 H (0-4) % Baso % (Auto) 0.6 (0-2) % Lymph # (Auto) 2.3 (1.2-4.9) X10*3/uL [place] # (Auto) 0.9 (0.1-1.2) X10*3/uL Eos # (Auto) 0.7 H (0.0-0.4) X10*3/uL Baso # (Auto) 0.1 (0.0-0.2) X10*3/uL Abs Immat Gran (auto) 0.05 H (0.00-0.03) X10*3/uL Absolute Neuts (auto) 4.1 (2.0-8.3) X10*3/uL Absolute Nucleated RBC 0.000 (0.0-0.012) X10*3/uL Nucleated RBC % (auto) 0.0 (0.0-0.2) /100WBC Sodium 138 (135-145) mmol/L Potassium 4.4 (3.3-5.1) mmol/l Chloride 103 (96-108) mmol/L Carbon Dioxide 28 (22-29) mmol/L Anion Gap 11 L (12-20) BUN 17 H (9-16) mg/dL Creatinine 1.12 (0.5-1.4) mg/dL Estim Creat Clear Calc 83.3 Estimated GFR > 60 Random Glucose 108 (60-115) mg/dL Calcium 8.8 (8.4-10.2) mg/dL COVID-19 ([facility]) Negative (Negative) COVID-19 Clin Com See Note Discharge Plan Discharge Clinical Impression: Chronic obstructive asthma with exacerbation Patient Disposition: Home, Self-Care Instructions: COPD (Chronic Obstructive Pulmonary Disease) (ED) Additional Instructions: Continue use inhaler as prescribed. Take prednisone course stop smoking follow with PCP if not better Prescriptions: New prednisone 20 mg tablet 40 mg PO DAILY Qty: 10 RF: 0 No Action montelukast [Singulair] 10 mg Tablet 10 mg PO DAILY RF: 0 pregabalin [Lyrica] 150 mg Capsule 150 mg PO BID RF: 0 nicotine RF: 0 Hold Instructions: Resume on 11/28/19. Resume as previously directed cefuroxime axetil 500 mg Tablet 500 mg PO Q12H Qty: 20 RF: 0 Interventions: ED Discharge Assessment Last Done: 02/25/20 06:45
[2020-02-25 04:33] VITALS: RESP 20
--- NOTE | 2020-02-25 04:34 | XR_ITS ---
EXAMINATION: XR CHEST CLINICAL INFORMATION: Shortness of breath COMPARISON: 07/02/2019 TECHNIQUE: Frontal view of the chest was obtained. FINDINGS: Cervical fusion hardware noted. The lungs are well expanded. Mild bronchial wall thickening. No dense consolidation. No edema or effusion. No pneumothorax. The cardiomediastinal silhouette is within normal limits. XR/XR chest 1V IMPRESSION: No dense consolidation. Bronchial wall thickening can be seen with a small airways process such as asthma or atypical/viral infection.
[2020-02-25] MEDS: Albuterol Sulfate (0.083%) 2.5 MG/3 ML VIAL.NEB 5 MG INHALE (04:54)
[2020-02-25] MEDS: Magnesium Sulfate/H2O 2 GM/50 ML PIGGYBACK IV (04:54)
[2020-02-25] MEDS: methylPREDNISolone Sod Succ/PF 125 MG/2 ML VIAL IVPUSH (04:55)
[2020-02-25 04:56] VITALS: PULSE 91; O2SAT 95
[2020-02-25 05:07] LABS: Basophils Absolute Auto 0.1 X10*3/uL (0.0-0.2); Basophils Percent Auto 0.6 % (0-2); Eosinophils Absolute Auto 0.7 X10*3/uL (0.0-0.4); Eosinophils Percent Auto 8.7 % (0-4); Hematocrit 47.4 % (42-52); Hemoglobin 15.7 g/dl (14.0-18.0); Imm Gran Abs Auto 0.05 X10*3/uL (0.00-0.03); Imm Gran Pct Auto 0.6 % (0.0-0.4); Lymphocytes Absolute Auto 2.3 X10*3/uL (1.2-4.9); Lymphocytes Percent Auto 28.3 % (20-40); MANUAL DIFF FLAG NO; Mean Corpuscular HGB Conc 33.1 g/dl (31.0-36.0); Mean Corpuscular Hemoglobin 30.5 pg (27.0-33.0); Mean Platelet Volume 11.4 fL (9.4-12.4); Monocytes Absolute Auto 0.9 X10*3/uL (0.1-1.2); Monocytes Percent Auto 10.9 % (2-11); Neutrophils Absolute Auto 4.1 X10*3/uL (2.0-8.3); Neutrophils Percent Auto 50.9 % (45-73); Platelet Count 233 X10*3/uL (160-400); Red Blood Count 5.15 X10*6/uL (4.60-5.80)
[2020-02-25 05:20] LABS: COVID-19 Test Negative (Negative); IDNOW Serial# 9DD0AD1C
[2020-02-25 05:35] LABS: Anion Gap 11 (12-20); Blood Urea Nitrogen 17 mg/dL (9-16); Calcium 8.8 mg/dL (8.4-10.2); Carbon Dioxide 28 mmol/L (22-29); Chloride 103 mmol/L (96-108); Creatinine Clr Calc Pharmacy 83.3; Estimated Glomerular Filt Rate > 60; Glucose Random 108 mg/dL (60-115); Potassium 4.4 mmol/l (3.3-5.1); Sodium 138 mmol/L (135-145)
[2020-02-25 06:00] VITALS: BP 143/86; PULSE 90; RESP 15; O2SAT 95
[2020-02-25] MEDS: Albuterol Sulfate (0.083%) 2.5 MG/3 ML VIAL.NEB 7.5 MG INHALE (06:13)
[2020-02-25 06:14] VITALS: PULSE 80; O2SAT 92
== END 2020-02-25 06:58 | disposition home or self-care (01) ==
PROVIDERS: Emergency Provider Internal Medicine; PCP Family Medicine
DX: J44.1 Chronic obstructive pulmonary disease with (acute) exacerbation (principal); Z20.828 Contact with and (suspected) exposure to other viral communicable diseases; Z87.891 Personal history of nicotine dependence
CPT/HCPCS: 36415; 71045; 80048; 85025; 87635; 94640; 94644; 96365; 96375; 99284; J2930; J3475

== ENCOUNTER 2020-03-14 06:27 | Emergency (ER) | payer MEDICAID, SELFPAY ==
[2020-03-14 06:35] VITALS: BP 147/97; PULSE 111; RESP 16; TEMP 36.8; O2SAT 96; BMI 33.9
--- NOTE | 2020-03-14 06:42 | ED_ITS ---
HPI - SOB/Dyspnea General Chief Complaint: Upper Respiratory Symptoms Stated Complaint: ASTHMA Time Seen by Provider: 03/14/20 06:42 Source: patient Mode of arrival: ambulatory Limitations: no limitations History of Present Illness HPI Narrative: History of COPD/asthma smoker been feeling increased shortness of breath since last night with dry cough no fever no chills has taken and 2 treatments and 3 times inhaler without any response patient been tested for COVID 3 times already negative no one else is sick at home MD elicited complaint: shortness of breath Pertinent past history: COPD and asthma Onset (ago): day(s) Severity: moderate Exacerbating factors: coughing Relieving factors: nothing Known history of: COPD and asthma Associated symptoms: denies other symptoms Treatment prior to arrival: bronchodilator Related Data Home oxygen amount: none Home Medications Medication Instructions Recorded Confirmed montelukast [Singulair] 10 mg PO DAILY 11/26/19 11/26/19 nicotine 11/26/19 pregabalin [Lyrica] 150 mg PO BID 11/26/19 11/26/19 Previous Rx's Medication Instructions Recorded cefuroxime axetil 500 mg PO Q12H #20 tab 11/28/19 prednisone 40 mg PO DAILY #10 tab 02/25/20 doxycycline hyclate 100 mg PO BID #20 cap 03/14/20 prednisone 40 mg PO DAILY #10 tab 03/14/20 Allergies Allergy/AdvReac Type Severity Reaction Status Date / Time ibuprofen [From MOTRIN] Allergy Unknown KIDNEY Verified 11/26/19 11:05 ISSUES mushroom AdvReac Mild VOMITING Verified 11/26/19 11:05 OMNIPAQUE (IV Contrast) Allergy Mild HIVES Uncoded 11/08/19 15:01 Review of Systems Review of Systems: Constitutional : No Weight loss, No Fever, No Chills ENT/Mouth : No sore throat, No Rhinorrhea Eyes: No Eye Pain, No Swelling Cardiovascular : No Chest Pain, no palpitations Respiratory :+Cough, No Sputum, ++ shortness of breath Gastrointestinal : no Nausea, No Vomiting, No Diarrhea, No abdominal Pain, no black stools Genitourinary : No Dysuria, No Urinary Frequency Musculoskeletal : No joint pain, No Myalgias, No Joint Swelling Skin : No Skin Lesions, No rash Neuro : No Weakness, No Numbness, No Dizziness, No Headache Psych : No Anxiety/Panic, No Depression Heme/Lymph: No Bruising, No Lymphadenopathy Endocrine : No Polyuria, No Polydipsia All other systems reviewed and are negative PMFSH Past Medical History Medical History Arthritis Asthma Surgical History H/O kidney removal H/O neck surgery Previous back surgery Social History Social History Household Members: Spouse and Children Housing: Apartment Alcohol intake: current Alcohol intake frequency: holidays/special occasions only Smoking Status: Light tobacco smoker Years Smoked: 30 Advance Directives: No Advance Directives Information Provided: No service: No Current occupational status: employed Physical Exam Vital Signs: Vital Signs: Last Vital Signs Temp 97.9 F 03/14/20 09:58 Pulse 84 03/14/20 09:58 Resp 18 03/14/20 09:58 BP 133/82 03/14/20 09:58 Pulse Ox 99 03/14/20 09:58 Body Mass Index 33.9 Const: General: healthy appearing, comfortable and acute distress mild Nutritional Appearance: average body habitus and well nourished Orientation/consciousness: patient oriented x3 HENMT: Head: Yes normal to inspection Ears: hearing grossly normal bilaterally General nose exam: Normal external nose present Mouth: Normal oral and palatal mucosa present Eyes: General: appearance normal, both eyes and all related structures Neck: Neck: Yes normal visual inspection, Yes lymphadenopathy and Yes no JVD Chest: Chest palpation & inspection: normal inspection of the chest and normal palpation of entire chest wall Resp: Effort & Inspection: respiratory distress, uses accessory muscles and prolonged expiratory phase Auscultation: no crackles, no rales, rhonchi throughout and wheezes expiratory wheezes Percussion: percussion normal Cardio: Jugular venous distension: no JVD Rate: tachycardic Rhythm: regular rhythm Heart sounds: S1 normal heart sound present and S2 normal heart sound present Peripheral pulses: Peripheral pulses 2+ throughout GI: Inspection: Yes normal to inspection Palpation (GI): Soft to palpation, nontender and No hepatosplenomegaly present Auscultation: normal bowel sounds Back/Spine/Pelvis: Thoracic/Lumbar Spine: thoracic and lumbar spine normal to inspection Skin: General skin exam: no rashes or lesions noted Neuro: General: patient oriented x3 and no focal motor deficits Extrem: General: Yes normal to inspection, Yes no calf tenderness and No pedal edema MDM - SOB/Dyspnea MDM Narrative Medical decision making narrative: Patient chronic smoker COPD/bronchitis feeling better after nebulizing treatment and steroids. Will discharge patient home on doxycycline and prednisone and advised to continue nebulizing treatment at home Medical Records Attestation: I reviewed the patient's medical records. Lab Data Attestation: I reviewed the patient's lab results. Result diagrams: 03/14/20 07:15 03/14/20 07:15 Labs: Lab Results 03/14/20 03/14/20 Range/Units 07:15 07:15 WBC 7.8 (4.8-10.8) X10*3/uL RBC 5.07 (4.60-5.80) X10*6/uL Hgb 15.8 (14.0-18.0) g/dl Hct 46.5 (42-52) % MCV 91.7 (80-98) fL MCH 31.2 (27.0-33.0) pg MCHC 34.0 (31.0-36.0) g/dl RDW 12.9 (11.0-16.0) % Plt Count 225 (160-400) X10*3/uL MPV 10.9 (9.4-12.4) fL Immature Gran % (Auto) 0.8 H (0.0-0.4) % Neut % (Auto) 64.4 (45-73) % Lymph % (Auto) 17.9 L (20-40) % [place] % (Auto) 8.7 (2-11) % Eos % (Auto) 7.7 H (0-4) % Baso % (Auto) 0.5 (0-2) % Lymph # (Auto) 1.4 (1.2-4.9) X10*3/uL [place] # (Auto) 0.7 (0.1-1.2) X10*3/uL Eos # (Auto) 0.6 H (0.0-0.4) X10*3/uL Baso # (Auto) 0.0 (0.0-0.2) X10*3/uL Abs Immat Gran (auto) 0.06 H (0.00-0.03) X10*3/uL Absolute Neuts (auto) 5.0 (2.0-8.3) X10*3/uL Absolute Nucleated RBC 0.000 (0.0-0.012) X10*3/uL Nucleated RBC % (auto) 0.0 (0.0-0.2) /100WBC Sodium 138 (135-145) mmol/L Potassium 4.1 (3.3-5.1) mmol/l Chloride 106 (96-108) mmol/L Carbon Dioxide 23 (22-29) mmol/L Anion Gap 13 (12-20) BUN 12 (9-16) mg/dL Creatinine 1.05 (0.5-1.4) mg/dL Estim Creat Clear Calc 88.9 Estimated GFR > 60 Random Glucose 114 (60-115) mg/dL Calcium 8.9 (8.4-10.2) mg/dL Discharge Plan Discharge Clinical Impression: Bronchitis Patient Disposition: Home, Self-Care Instructions: Acute Bronchitis (ED) Additional Instructions: Stop smoking. Continue to use inhaler. Take antibiotics as prescribed. Follow-up with PCP if not better Prescriptions: New doxycycline hyclate 100 mg capsule 100 mg PO BID Qty: 20 RF: 0 prednisone 20 mg tablet 40 mg PO DAILY Qty: 10 RF: 0 No Action prednisone 20 mg tablet 40 mg PO DAILY Qty: 10 RF: 0 montelukast [Singulair] 10 mg Tablet 10 mg PO DAILY RF: 0 pregabalin [Lyrica] 150 mg Capsule 150 mg PO BID RF: 0 nicotine RF: 0 Hold Instructions: Resume on 11/28/19. Resume as previously directed cefuroxime axetil 500 mg Tablet 500 mg PO Q12H Qty: 20 RF: 0 Stand Alone Forms: Work/School Release Interventions: ED Discharge Assessment Last Done: 03/14/20 11:22 Discharge Date/Time: 03/14/20 11:22
--- NOTE | 2020-03-14 06:50 | XR_ITS ---
EXAMINATION: XR CHEST CLINICAL INFORMATION: Shortness of breath COMPARISON: 02/25/2020 TECHNIQUE: Frontal view of the chest was obtained. FINDINGS: No significant abnormality is noted involving the heart, lungs, mediastinum, bony thorax or soft tissues. XR/XR chest 1V IMPRESSION: Unremarkable examination.
[2020-03-14] MEDS: methylPREDNISolone Sod Succ/PF 125 MG/2 ML VIAL IVPUSH (07:19)
[2020-03-14] MEDS: Magnesium Sulfate/H2O 2 GM/50 ML PIGGYBACK IV (07:19)
[2020-03-14 07:20] LABS: MANUAL DIFF FLAG NO
[2020-03-14 07:23] LABS: Basophils Percent Auto 0.5 % (0-2); Eosinophils Absolute Auto 0.6 X10*3/uL (0.0-0.4); Eosinophils Percent Auto 7.7 % (0-4); Hematocrit 46.5 % (42-52); Hemoglobin 15.8 g/dl (14.0-18.0); Imm Gran Abs Auto 0.06 X10*3/uL (0.00-0.03); Imm Gran Pct Auto 0.8 % (0.0-0.4); Lymphocytes Absolute Auto 1.4 X10*3/uL (1.2-4.9); Lymphocytes Percent Auto 17.9 % (20-40); Mean Corpuscular Hemoglobin 31.2 pg (27.0-33.0); Mean Corpuscular Volume 91.7 fL (80-98); Mean Platelet Volume 10.9 fL (9.4-12.4); Monocytes Absolute Auto 0.7 X10*3/uL (0.1-1.2); Monocytes Percent Auto 8.7 % (2-11); Neutrophils Percent Auto 64.4 % (45-73); Platelet Count 225 X10*3/uL (160-400); Red Blood Count 5.07 X10*6/uL (4.60-5.80); Red Cell Distribution Width 12.9 % (11.0-16.0); White Blood Count 7.8 X10*3/uL (4.8-10.8)
[2020-03-14] MEDS: Albuterol Sulfate (0.083%) 2.5 MG/3 ML VIAL.NEB 5 MG INHALE ×2 (07:31→09:53)
[2020-03-14] MEDS: Albuterol/Iprat 2.5/0.5MG 3 ML AMPUL.NEB INHALE (07:31)
[2020-03-14 07:32] VITALS: PULSE 97; O2SAT 92
[2020-03-14 07:47] LABS: Anion Gap 13 (12-20); Blood Urea Nitrogen 12 mg/dL (9-16); Calcium 8.9 mg/dL (8.4-10.2); Carbon Dioxide 23 mmol/L (22-29); Chloride 106 mmol/L (96-108); Creatinine Clr Calc Pharmacy 88.9; Estimated Glomerular Filt Rate > 60; Glucose Random 114 mg/dL (60-115); Potassium 4.1 mmol/l (3.3-5.1); Sodium 138 mmol/L (135-145)
[2020-03-14 07:51] VITALS: PULSE 105; O2SAT 94
[2020-03-14 09:53] VITALS: PULSE 85; O2SAT 98
[2020-03-14 09:58] VITALS: BP 133/82; PULSE 84; RESP 18; TEMP 36.6; O2SAT 99
== END 2020-03-14 11:22 | disposition home or self-care (01) ==
PROVIDERS: Emergency Provider Internal Medicine; PCP Family Medicine
DX: J20.9 Acute bronchitis, unspecified (principal); F17.210 Nicotine dependence, cigarettes, uncomplicated; J45.909 Unspecified asthma, uncomplicated; Z79.899 Other long term (current) drug therapy
CPT/HCPCS: 36415; 71045; 80048; 85025; 94640; 94644; 94645; 96365; 96375; 99284; 99285; J2930; J3475

== ENCOUNTER → 2020-04-14 12:46 | Outpatient (BNVA) | payer MEDICAID, SELFPAY | PROVIDERS: PCP Family Medicine; Visit Provider Internal Medicine Endocrinology, Diabetes & Metabolism | DX: D35.01 Benign neoplasm of right adrenal gland (principal) | CPT/HCPCS: 99212 ==

== ENCOUNTER 2020-04-16 | Outpatient (REF) | payer MEDICAID, SELFPAY | END 2020-04-16 00:01 | disposition home or self-care (01) | LOC: HO.RESP | PROVIDERS: Visit Provider Internal Medicine Pulmonary Disease | DX: J44.9 Chronic obstructive pulmonary disease, unspecified (principal) | CPT/HCPCS: 99212 ==

== ENCOUNTER 2020-04-16 09:40 | Outpatient (REF) | payer MEDICAID, SELFPAY ==
--- NOTE | 2020-04-16 | PFT_ITS ---
Forced vital capacity is normal. FEV1 is slightly decreased, FEV1/FVC ratio is slightly decreased. [id number] moderately decreased. MVV is moderately decreased. Post bronchodilator, there is a significant improvement in FVC and [id number]. Total lung capacity normal. Residual volume moderately increased. Diffusion capacity normal. CONCLUSION: There is evidence of mild obstructive airway disorder. There is a significant response to bronchodilator therapy. These findings are consistent with mild bronchial asthma. Clinical correlation is recommended. Ramesh Henning MD MSB/MODL / [id number]
== END 2020-04-16 09:41 | disposition home or self-care (01) ==
LOC: HO.RESP 09:40
PROVIDERS: PCP Family Medicine; Visit Provider Internal Medicine Pulmonary Disease
DX: J44.9 Chronic obstructive pulmonary disease, unspecified (principal)

== ENCOUNTER 2020-04-30 05:55 | Outpatient (REF) | payer MEDICAID, SELFPAY ==
[2020-05-06 22:37] LABS: Dexamethasone 477 ng/dL
== END 2020-04-30 05:56 | disposition home or self-care (01) ==
LOC: HO.LAB 05:55
PROVIDERS: PCP Family Medicine; Visit Provider Internal Medicine Endocrinology, Diabetes & Metabolism
DX: D35.01 Benign neoplasm of right adrenal gland (principal)
CPT/HCPCS: 36415; 80299; 82533

== ENCOUNTER 2020-05-05 07:49 | Outpatient (REF) | payer MEDICAID, SELFPAY ==
--- NOTE | ~2020-05-05 | CT_ITS ---
EXAMINATION: CT ABDOMEN AND PELVIS WITHOUT CONTRAST CLINICAL INFORMATION: Benign neoplasm of right adrenal gland COMPARISON: Previous CT of the abdomen and pelvis November 2019 TECHNIQUE: Multidetector volumetric imaging was performed from the superior aspect of the liver through the pubic symphysis. Sagittal and coronal reformatted images were obtained on the technologist's workstation. This CT examination was performed using dose optimization techniques as appropriate, variously including the following: *Automated exposure control *Adjustment of mA and/or kV according to patient size (this includes techniques or standardized protocols for targeted exams where dose is matched to indication/reason for exam; i.e. extremities or head) *Use of iterative reconstruction technique DLP: 577 mGy-cm FINDINGS: LUNG BASES: The visualized lung bases are unremarkable. LIVER, GALLBLADDER, AND BILIARY TREE: The liver is normal in size, shape, and attenuation. No focal hepatic lesion or biliary ductal dilatation is present. The gallbladder is unremarkable with no evidence of radiopaque gallstones, gallbladder wall thickening, or obvious pericholecystic inflammatory changes. PANCREAS: Unremarkable. SPLEEN: Unremarkable. ADRENAL GLANDS: There is a stable 1 x 1.8 cm low-attenuation right adrenal lesion. Hounsfield units without contrast measure 4. This likely represents a benign adenoma. The left adrenal gland is normal appearing. KIDNEYS AND URETERS: The left kidney has been removed. There is a 1.6 cm cyst exophytic to the medial upper pole of the right kidney. The right kidney is otherwise unremarkable. BLADDER: Not optimally distended. GASTROINTESTINAL TRACT: The small and large bowel are unremarkable. The appendix is unremarkable. ABDOMINAL WALL: There are postsurgical changes to the left lateral abdominal wall that are stable. LYMPH NODES: Normal. VASCULAR: Unremarkable. PELVIC VISCERA: Unremarkable. OSSEOUS STRUCTURES: There are mild degenerative changes of the spine. CT/CT abdomen pelvis wo con IMPRESSION: Stable 1 x 1.8 cm low-attenuation right adrenal lesion likely representing a benign adenoma. Postoperative change from left nephrectomy. Stable right renal cyst.
[2020-05-05] MEDS: Barium Sulfate Oral (Berry) 450 ML ORAL.SUSP 900 ML PO (10:57)
== END 2020-05-05 07:50 | disposition home or self-care (01) ==
LOC: HO.CT 07:49
PROVIDERS: PCP Family Medicine; Visit Provider Internal Medicine Endocrinology, Diabetes & Metabolism
DX: D35.01 Benign neoplasm of right adrenal gland (principal)
CPT/HCPCS: 74176

== ENCOUNTER 2020-05-14 12:23 | Emergency (ER) | payer MEDICAID, SELFPAY ==
--- NOTE | ~2020-05-14 | XR_ITS ---
EXAMINATION: XR FOOT, RIGHT CLINICAL INFORMATION: Pain and swelling. COMPARISON: None TECHNIQUE: AP, lateral, and oblique views of the right foot. FINDINGS: There is no visible acute fracture, dislocation or subluxation seen. The soft tissues are normal. The ankle mortise and subtalar joints are normal. There is a small retrocalcaneal enthesophyte. XR/XR foot RT min 3V IMPRESSION: Small retrocalcaneal enthesophyte. No visible acute fracture or joint abnormality seen.
[2020-05-14 12:46] VITALS: BP 170/102; PULSE 82; RESP 18; TEMP 37.1; O2SAT 97; BMI 33.0
[2020-05-14] MEDS: Acetaminophen 325 MG TABLET 650 MG PO (13:54)
--- NOTE | 2020-05-14 14:02 | ED.LOWEXIN ---
HPI - Extremity Injury (Lower) General Chief Complaint: Extremity Injury, Lower Stated Complaint: rt foot toe pain,no inj Time Seen by Provider: 05/14/20 13:59 Source: patient Mode of arrival: ambulatory Limitations: no limitations History of Present Illness HPI Narrative: 50-year-old male with history of arthritis presented with 1 day history of right big toe pain and redness, patient declined any history of trauma or injury to the foot or to the toe, no prior episodes of to pain, pain started today, described as sharp severe 7/10 constant localized to the pace of right big toe with no radiation, movement makes the pain worse nothing make it better. Related Data Home Medications Medication Instructions Recorded Confirmed montelukast [Singulair] 10 mg PO DAILY 11/26/19 04/14/20 nicotine 11/26/19 04/14/20 pregabalin [Lyrica] 150 mg PO BID 11/26/19 04/14/20 Previous Rx's Medication Instructions Recorded doxycycline hyclate 100 mg PO BID #20 cap 03/14/20 dexamethasone 1 mg tablet 1 mg PO ONCE 1 Days #1 tab 04/14/20 albuterol sulfate 90 mcg/actuation 2 puff INHALATION Q4-6H PRN 30 04/16/20 aerosol inhaler Days #1 ea azithromycin 250 mg tablet See Rx Instructions PO .COMPLEX 5 04/16/20 Days #6 tab benzonatate 100 mg capsule 100 mg PO TID PRN #60 cap 04/16/20 fluticasone 250 mcg-salmeterol 50 1 inh INHALATION BID 30 Days #1 ea 04/16/20 mcg/dose blistr powdr for inhalation prednisone 20 mg PO BID #10 tab 05/14/20 Allergies Allergy/AdvReac Type Severity Reaction Status Date / Time ibuprofen [From MOTRIN] Allergy Unknown KIDNEY Verified 04/16/20 09:44 ISSUES mushroom AdvReac Mild VOMITING Verified 04/16/20 09:44 Review of Systems Review of Systems: All other systems are reviewed and are negative Constitutional: Reports as per HPI and Reports no additional constitutional complaints Eyes: Reports as per HPI and Reports no additional eye complaints Reports system reviewed and no additional complaints, except as documented Cardiovascular: Reports as per HPI and Reports no additional cardiovascular complaints Respiratory: Reports as per HPI and Reports no additional respiratory complaints Gastrointestinal: Reports as per HPI and Reports no additional gastrointestinal complaints Genitourinary: Reports no additional female genitourinary complaints Musculoskeletal: Reports no additional musculoskeletal complaints Skin/Breast: Reports system reviewed and no additional complaints, except as docu Psychiatric: Reports no additional psychiatric complaints Endocrine: Reports no additional endocrine complaints Hematologic/Lymphatic: Reports no additional hematologic/lymphatic complaints Allergic/Immunologic: Reports no additional allergic/immunologic complaints Reports system reviewed and no additional complaints, except as documented and Reports Abnormal speech present [facility] Past Medical History 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 Arthritis Asthma Surgical History H/O kidney removal H/O neck surgery Previous back surgery Social History Social History Household Members: Spouse and Children Housing: Apartment Alcohol intake: never Smoking Status: Current some day smoker Years Smoked: 30 Use of substances other than those prescribed or required for medical reasons: No Advance Directives: No Advance Directives Information Provided: No service: No Current occupational status: employed Physical Exam Vital Signs: Vital Signs: Last Vital Signs Temp 98.8 F 05/14/20 12:46 Pulse 96 05/14/20 14:11 Resp 16 05/14/20 14:11 BP 153/99 H 05/14/20 14:11 Pulse Ox 98 05/14/20 14:11 Body Mass Index 33.0 Vital signs have been reviewed as appeared to be correct. Blood pressure normal. Heart rate normal. Respiration rate normal. Temperature normal. Oxygen saturation normal. Appearance: Alert. Oriented X3. No acute distress. Head: Normal external exam. Normocephalic. Atraumatic. No Haynes signs noted. No raccoon eyes noted Eyes: PERRLA. EOMI. Conjunctiva and sclera normal. Eyelids normal. ENT: TM's Normal. Pharynx normal. Uvula midline. Moist mucous membranes. No trismus noted. No drooling noted. No muffled voice noted. Neck: Normal inspection. Neck supple. FROM. No adenopathy. Thyroid Normal. No meningeal signs. No neck mass noted. CVS: Normal heart rate and rhythm. Heart sound normal. No murmurs noted. Pulses normal throughout. Respiratory: No respiratory distress. Painless inspiration. Breath sounds normal. No wheezes/rales/rhonchi noted. Chest nontender. No accessory muscle usage noted or decreased air movement noted. Abdomen: Soft and nontender. Bowel sounds normal in all 4 quadrants. No distention noted. No organomegaly noted. No visible injury noted. Back: No CVA tenderness. Full range of motion noted. Skin: Skin warm and dry. Normal skin color. Normal skin turgor. No rashes/lesions/lacerations noted. Extremities: Mild swelling redness and hotness to the base of the right big toe, tender to touch and movement, no deformity. Neuro: Oriented X 3. No motor deficit. No sensory deficit. Reflexes normal. Course Course Course Narrative: 50-year-old male with history of arthritis, patient never had a history of gout, today's physical exam and x-ray of the foot is consistent with gout arthritis to the right big toe. Because patient has 1 kidney and NSAIDs is contraindicated for this patient were started the patient on steroids. Initial blood pressure was high improved while in the ED. MDM - Extremity Injury (Lower) Imaging Data Right foot x-ray: Radiologist's impression: Small retrocalcaneal enthesophyte. No visible acute fracture or joint abnormality seen. Discharge Plan Discharge Clinical Impression: Gout, arthritis Patient Disposition: Home, Self-Care Instructions: Gout (ED) Prescriptions: New prednisone 20 mg tablet 20 mg PO BID Qty: 10 RF: 0 No Action benzonatate [Tessalon Perles] 100 mg capsule 100 mg PO TID PRN (Reason: cough) Qty: 60 RF: 0 montelukast [Singulair] 10 mg Tablet 10 mg PO DAILY RF: 0 pregabalin [Lyrica] 150 mg Capsule 150 mg PO BID RF: 0 nicotine RF: 0 Hold Instructions: Resume on 11/28/19. Resume as previously directed doxycycline hyclate 100 mg capsule 100 mg PO BID Qty: 20 RF: 0 dexamethasone 1 mg tablet 1 mg PO ONCE 1 Days Qty: 1 RF: 0 fluticasone propion-salmeterol [Wixela Inhub] 250-50 mcg/dose blister with device 1 inh inhalation BID 30 Days Qty: 1 RF: 6 albuterol sulfate 90 mcg/actuation HFA aerosol inhaler 2 puff inhalation Q4-6H PRN (Reason: shortness of breath or wheezing) 30 Days Qty: 1 RF: 6 azithromycin 250 mg tablet See Rx Instructions PO .COMPLEX 5 Days Qty: 6 RF: 0 Referrals: Mirtha Lunsford MD [Primary Care Provider] - 2 days Stand Alone Forms: Work/School Release
[2020-05-14 14:11] VITALS: BP 153/99; PULSE 96; RESP 16; O2SAT 98
[2020-05-14] MEDS: predniSONE 20 MG TABLET 60 MG PO (14:16)
== END 2020-05-14 14:53 | disposition home or self-care (01) ==
PROVIDERS: Emergency Provider Emergency Medicine; PCP Family Medicine
DX: M10.9 Gout, unspecified (principal); M77.31 Calcaneal spur, right foot; Z90.5 Acquired absence of kidney; F17.200 Nicotine dependence, unspecified, uncomplicated
CPT/HCPCS: 73630; 99283; 99284

== ENCOUNTER 2020-07-08 11:40 | Emergency (ER) | payer MEDICAID, SELFPAY ==
[2020-07-08 12:35] VITALS: BP 144/105; PULSE 84; RESP 18; TEMP 36.8; O2SAT 97; BMI 32.3
--- NOTE | 2020-07-08 13:12 | ED_ITS ---
HPI - Back Pain/Injury General Chief Complaint: Back Pain/Injury <RAMANDEEP Oliva Last Filed: 07/08/20 13:54> Stated Complaint: L LEG PAIN <RAMANDEEP Oliva Last Filed: 07/08/20 13:54> Time Seen by Provider: 07/08/20 12:43 <RAMANDEEP Oliva Last Filed: 07/08/20 13:54> Source: patient <RAMANDEEP Oliva Last Filed: 07/08/20 13:54> Mode of arrival: ambulatory <RAMANDEEP Oliva Last Filed: 07/08/20 13:54> History of Present Illness HPI Narrative: 50-year-old male with a past medical history of asthma, arthritis, previ ous back surgery, neck surgery, 1 kidney removed, presenting to the ED complaining of left-sided lower back/buttock pain radiating down left lower extremity x1 day. Admits pain worse with movement/ambulation. Denies known injury/trauma or falls, numbness, tingling, weakness, urinary incontinence/retention, fever, chills, dysuria/hematuria <RAMANDEEP Oliva Last Filed: 07/08/20 13:54> MD elicited complaint: back pain <RAMANDEEP Oliva Last Filed: 07/08/20 13:54> Related Data Home Medications: Home Medications Medication Instructions Recorded Confirmed pregabalin [Lyrica] 150 mg PO BID 11/26/19 07/28/20 Previous Rx's Medication Instructions Recorded albuterol sulfate 90 mcg/actuation 2 puff INHALATION Q4-6H PRN 30 04/16/20 aerosol inhaler Days #1 ea nicotine 21 mg TRANSDERMAL DAILY #30 ea 07/28/20 prednisone 20 mg PO DAILY #5 tab 07/28/20 <RAMANDEEP Oliva Last Filed: 07/08/20 13:54> Allergies/Adverse Reactions: Allergies Allergy/AdvReac Type Severity Reaction Status Date / Time ibuprofen [From MOTRIN] Allergy Unknown KIDNEY Verified 07/28/20 07:33 ISSUES mushroom AdvReac Mild VOMITING Verified 07/28/20 07:33 <RAMANDEEP Oliva Last Filed: 07/08/20 13:54> Review of Systems Review of Systems: Constitutional: No Fever, No Chills Gastrointestinal: No Nausea, No Vomiting, No Abdominal pain Genitourinary: No Dysuria, No Hematuria, No Urinary Incontinence/retention, No Flank Pain Musculoskeletal: +back pain, No Myalgias, No Joint Swelling Skin: No Skin Lesions, No rash Neuro: No Weakness, No Numbness, No Paresthesias <RAMANDEEP Oliva - Last Filed: 07/08/20 13:54> Yes all other systems are reviewed and are negative <RAMANDEEP Oliva - Last Filed: 07/08/20 13:54> Neurologic: Denies Sensory deficit (Neuro) <ARMANDEEP Oliva - Last Filed: 07/08/20 13:54> [facility] Past Medical History Attestation statement: The following information was validated with the patient. 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 Arthritis Asthma <RAMANDEEP Oliva - Last Filed: 07/08/20 13:54> Surgical History: Surgical History H/O kidney removal H/O neck surgery Previous back surgery <RAMANDEEP Oliva Last Filed: 07/08/20 13:54> Social History Social History: Social History Household Members: None Housing: Apartment Do you presently have visiting nurse or other home services: No Alcohol intake: never Patient Tobacco Use Status: Current everyday Tobacco user Tobacco use type: Cigarette Years Smoked: 20 years e-Cigarette/Vaping Use: Currently Using Second Hand Smoke Exposure: No service: No Current occupational status: employed <RAMANDEEP Oliva Last Filed: 07/08/20 13:54> Physical Exam Vital Signs: Vital Signs: Last Vital Signs Temp 98.2 F 07/08/20 12:35 Pulse 84 07/08/20 12:35 Resp 18 07/08/20 12:35 BP 144/105 H 07/08/20 12:35 Pulse Ox 97 07/08/20 12:35 Body Mass Index 32.3 <RAMANDEEP Oliva - Last Filed: 07/08/20 13:54> Vital Signs: Last Vital Signs Temp 98.2 F 07/08/20 12:35 Pulse 84 07/08/20 12:35 Resp 18 07/08/20 12:35 BP 144/105 H 07/08/20 12:35 Pulse Ox 97 07/08/20 12:35 Body Mass Index 32.3 <Arcadio Landa MD - Last Filed: 08/04/20 11:31> Const: General: cooperative, healthy appearing and no acute distress <Nasima Espinoza DC - Last Filed: 07/08/20 13:54> Orientation/consciousness: patient oriented x3 <Nasima Espinoza DC - Last Filed: 07/08/20 13:54> Limitations: no limitations <Nasima Espinoza DC - Last Filed: 07/08/20 13:54> HENMT: Head: Yes normal to inspection <Nasima Espinoza DC - Last Filed: 07/08/20 13:54> Ears: hearing grossly normal bilaterally <Nasima Espinoza DC - Last Filed: 07/08/20 13:54> General nose exam: Normal external nose present <Nasima Espinoza DC - Last Filed: 07/08/20 13:54> Face and sinus: Yes normal facial exam <Nasima Espinoza DC - Last Filed: 07/08/20 13:54> Eyes: General: appearance normal, both eyes and all related structures <Nasima Espinoza DC - Last Filed: 07/08/20 13:54> EOM: EOMs intact bilaterally <Nasima Espinoza DC - Last Filed: 07/08/20 13:54> Neck: Other: No midline cervical spinous tenderness or step-offs <Nasima Espinoza [facility] Last Filed: 07/08/20 13:54> Neck: Yes normal visual inspection and Yes no meningeal signs <RAMANDEEP Oliva - Last Filed: 07/08/20 13:54> Resp: Effort & Inspection: normal respiratory effort <RAMANDEEP Oliva Last Filed: 07/08/20 13:54> Cardio: Rate: regular rate <RAMANDEEP Oliva - Last Filed: 07/08/20 13:54> GI: Inspection: Yes normal to inspection <Nasima Espinoza DC - Last Filed: 07/08/20 13:54> Palpation (GI): Soft to palpation, nontender, no guarding and not rigid <Nasima Espinoza DC - Last Filed: 07/08/20 13:54> : General: Yes no CVA tenderness <Nasima Espinoza DC - Last Filed: 07/08/20 13:54> Back/Spine/Pelvis: Other: No midline thoracic/lumbar spinous tenderness or step-offs. + left-sided lower lumbar MSK/buttock tenderness to palpation, no appreciable deformity/ecchymosis or erythema <Nasima Espinoza DC - Last Filed: 07/08/20 13:54> Back: no CVA tenderness <Nasima Espinoza DC - Last Filed: 07/08/20 13:54> Skin: Rashes: no rashes <Nasima Espinoza DC - Last Filed: 07/08/20 13:54> Wounds: no wounds <Nasima Espinoza DC - Last Filed: 07/08/20 13:54> Neuro: Other: No saddle anesthesia, ambulating with steady gait <Nasima Espinoza DC - Last Filed: 07/08/20 13:54> General: patient oriented x3, gait normal, tone normal, moves all extremities and no meningeal signs <Nasima Espinoza DC - Last Filed: 07/08/20 13:54> Gait exam (Neuro): Normal gait present <Nasima Espinoza [facility] Last Filed: 07/08/20 13:54> Motor exam (neuro): 5/5 motor strength present throughout <Nasima Espinoza DC - Last Filed: 07/08/20 13:54> Sensory Exam: No Sensory deficit (Neuro) <Nasima Espinoza [facility] Last Filed: 07/08/20 13:54> Extrem: General: Yes normal to inspection <Nasima Espinoza DC - Last Filed: 07/08/20 13:54> Course Course Course Narrative: I have reviewed the chart <Arcadio Landa MD - Last Filed: 08/04/20 11:31> MDM - Back Pain/Injury MDM Narrative Medical decision making narrative: On exam VSS, NAD/well-appearing, no midline spinous tenderness throughout, no red flag symptoms or saddle anesthesia, ambulating with steady gait. Likely MSK pain/sciatica. Low concern for cauda equina/cord compression <RAMANDEEP Oliva Last Filed: 07/08/20 13:54> Discharge Plan Discharge Clinical Impression: Lumbar radiculopathy <RAMANDEEP Oliva Last Filed: 07/08/20 13:54> Patient Disposition: Home, Self-Care <RAMANDEEP Oliva Last Filed: 07/08/20 13:54> Instructions: Acute Low Back Pain (ED) <RAMANDEEP Oliva Last Filed: 07/08/20 13:54> Additional Instructions: Your pain is likely musculoskeletal Flexeril is a muscle relaxer, take at night as it makes you drowsy, do not drive, drink alcohol, or operate machinery while taking it Prednisone is a steroid which will help with inflammation Lidoderm patches are numbing patches, apply to painful area In addition take Tylenol at home If symptoms persist or worsen, pain becomes unbearable, you developed urinary retention or incontinence, or weakness return to the ED <RAMANDEEP Oliva Last Filed: 07/08/20 13:54> Prescriptions: No Action pregabalin [Lyrica] 150 mg Capsule 150 mg PO BID RF: 0 nicotine 21 mg/24 hr Patch 24 Hour 21 mg transdermal DAILY Qty: 30 RF: 0 prednisone 20 mg tablet 20 mg PO DAILY Qty: 5 RF: 0 albuterol sulfate 90 mcg/actuation HFA aerosol inhaler 2 puff inhalation Q4-6H PRN (Reason: shortness of breath or wheezing) 30 Days Qty: 1 RF: 6 <RAMANDEEP Oliva Last Filed: 07/08/20 13:54> Referrals: Mirtha Lunsford MD [Primary Care Provider] - 5 days <RAMANDEEP Oliva Last Filed: 07/08/20 13:54> Stand Alone Forms: Work/School Release <RAMANDEEP Oliva Last Filed: 07/08/20 13:54> Interventions: ED Discharge Assessment Last Done: 07/08/20 13:49 <RAMANDEEP Oliva Last Filed: 07/08/20 13:54> Discharge Date/Time: 07/08/20 13:49 <RAMANDEEP Oliva - Last Filed: 07/08/20 13:54>
[2020-07-08] MEDS: Cyclobenzaprine HCl 5 MG TABLET PO (13:43)
[2020-07-08] MEDS: Lidocaine 4 % Patch ADH..PATCH 1 PATCH TRANSDERMA (13:43)
== END 2020-07-08 13:49 | disposition home or self-care (01) ==
PROVIDERS: Emergency Provider Emergency Medicine; PCP Family Medicine
DX: M54.16 Radiculopathy, lumbar region (principal); M54.42 Lumbago with sciatica, left side
CPT/HCPCS: 99283

== ENCOUNTER 2020-07-27 22:19 | Inpatient (IN) | payer MEDICAID, SELFPAY ==
--- NOTE | ~2020-07-27 | XR_ITS ---
EXAMINATION: PORTABLE CHEST 1 VIEW CLINICAL INFORMATION: Short of breath . COMPARISON: 03/12/2020. TECHNIQUE: Portable frontal view of the chest was obtained. FINDINGS: The lungs are well expanded. No focal infiltrate, effusion, edema, or pneumothorax. Cardiac and mediastinal silhouettes are within normal limits for technique. No acute bony abnormality seen. Cervical spine hardware noted. XR/XR chest 1V IMPRESSION: No evidence of acute disease.
[2020-07-27 22:25] VITALS: PULSE 145; RESP 39; O2SAT 94; BMI 34.4
[2020-07-27] MEDS: Magnesium Sulfate/H2O 2 GM/50 ML PIGGYBACK IV (22:31)
[2020-07-27] MEDS: methylPREDNISolone Sod Succ 125 MG/2 ML VIAL IVPUSH (22:31)
[2020-07-27 22:32] VITALS: BP 170/107; PULSE 102; RESP 33; O2SAT 95
--- NOTE | 2020-07-27 22:37 | ECG_ITS ---
Test Reason : ASTHMA Blood Pressure : / mmHG Vent. Rate : 133 BPM Atrial Rate : 133 BPM P-R Int : 124 ms QRS Dur : 084 ms QT Int : 300 ms P-R-T Axes : 076 026 059 degrees QTc Int : 446 ms Sinus tachycardia Inferior infarct , age undetermined Abnormal ECG When compared to the previous EKG of Vent. rate has increased Referred By: Adelita Mcclelland Electronically Signed By:JULEE AVENDAÑO MD
--- NOTE | 2020-07-27 22:40 | ED.SOB ---
HPI - SOB/Dyspnea General Chief Complaint: Dyspnea Stated Complaint: SOB Time Seen by Provider: 07/27/20 22:36 Source: patient and family Mode of arrival: ambulatory History of Present Illness HPI Narrative: 50-year-old male with history of asthma/COPD who comes in in extremis stating that he recently was trying to stop smoking and was trying to vape instead and states that he vaped approximately 2 hours ago and then developed acute worsening shortness of breath. Otherwise, denies any fevers, chills, abdominal pain, urinary symptoms but does complain of chest tightness. Related Data Home Medications Medication Instructions Recorded Confirmed montelukast [Singulair] 10 mg PO DAILY 11/26/19 04/14/20 nicotine 11/26/19 04/14/20 pregabalin [Lyrica] 150 mg PO BID 11/26/19 04/14/20 Previous Rx's Medication Instructions Recorded doxycycline hyclate 100 mg PO BID #20 cap 03/14/20 dexamethasone 1 mg tablet 1 mg PO ONCE 1 Days #1 tab 04/14/20 albuterol sulfate 90 mcg/actuation 2 puff INHALATION Q4-6H PRN 30 04/16/20 aerosol inhaler Days #1 ea azithromycin 250 mg tablet See Rx Instructions PO .COMPLEX 5 04/16/20 Days #6 tab benzonatate 100 mg capsule 100 mg PO TID PRN #60 cap 04/16/20 fluticasone 250 mcg-salmeterol 50 1 inh INHALATION BID 30 Days #1 ea 04/16/20 mcg/dose blistr powdr for inhalation prednisone 20 mg PO BID #10 tab 05/14/20 acetaminophen [Tylenol Extra 500 mg PO Q6H PRN #20 tab 07/08/20 Strength] cyclobenzaprine 5 mg PO Q8H PRN 5 Days #14 tab 07/08/20 lidocaine [Lidoderm] 1 patch TOPICAL DAILY PRN #30 ea 07/08/20 MDD remove after 12 hours prednisone 40 mg PO DAILY 5 Days #10 tab 07/08/20 Allergies Allergy/AdvReac Type Severity Reaction Status Date / Time ibuprofen [From MOTRIN] Allergy Unknown KIDNEY Verified 07/08/20 12:35 ISSUES mushroom AdvReac Mild VOMITING Verified 07/08/20 12:35 Review of Systems Review of Systems: Pertinent positives and negatives as stated in HPI 10 point review of systems otherwise negative. 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 Arthritis Asthma Surgical History H/O kidney removal H/O neck surgery Previous back surgery Social History Social History Household Members: Spouse and Children Housing: Apartment Do you presently have visiting nurse or other home services: No Alcohol intake: never Years Smoked: 30 Advance Directives: No Advance Directives Information Provided: No service: No Current occupational status: employed Physical Exam Vital Signs: Vital Signs: Last Vital Signs Pulse 127 H 07/27/20 23:18 Resp 34 H 07/27/20 23:00 BP 160/95 H 07/27/20 23:00 Pulse Ox 96 07/27/20 23:00 Body Mass Index 34.4 VITAL SIGNS: Reviewed. GENERAL: Well developed, well nourished, severe distress. HEAD: Normocephalic/atraumatic EYES: PERRLA, EOMI OROPHARYNX: no oral lesions noted, posterior pharynx clear, no lip/tongue/facial swelling NECK: Supple, no adenopathy LUNGS: Minimal air movement with expiratory wheeze, tachypnea, significant work of breathing with retractions and tripoding. SpO2<94> on non-rebreather CARDIOVASCULAR: Regular rate and rhythm without noted murmurs ABDOMEN: Obese, Soft, non-tender, non-distended with bowel sounds. SKIN: Inspection of the skin reveals no rashes NEUROLOGIC: Alert and oriented x 4. Strength and sensation to light touch were grossly intact x 4. Course Course Course Narrative: 50-year-old male with severe asthma exacerbation who has continue to improve after receiving Solu-Medrol, magnesium sulfate, and 3-10 mg hour long albuterol treatments. He will be admitted, this is not sepsis. Review of all investigations is negative for evidence of pneumonia and COVID-19 is negative. The leukocytosis is secondary to having received Solu-Medrol prior to lab work being drawn. Patient is now able to speak in full sentences although his respiratory rate remains elevated at 26 he is oxygenating well with much improved air movement. This case was discussed with the inpatient hospitalist who has agreed for admission. MDM - SOB/Dyspnea Lab Data Result diagrams: 07/27/20 22:44 07/27/20 22:44 Labs: Lab Results 07/27/20 07/27/20 07/27/20 Range/Units 22:44 22:44 23:36 WBC 17.9 H (4.8-10.8) X10*3/uL RBC 5.26 (4.60-5.80) X10*6/uL Hgb 16.4 (14.0-18.0) g/dl Hct 48.6 (42-52) % MCV 92.4 (80-98) fL MCH 31.2 (27.0-33.0) pg MCHC 33.7 (31.0-36.0) g/dl RDW 12.9 (11.0-16.0) % Plt Count 284 D (160-400) X10*3/uL MPV 11.4 (9.4-12.4) fL Immature Gran % (Auto) 1.1 H (0.0-0.4) % Neut % (Auto) 73.0 (45-73) % Lymph % (Auto) 18.8 L (20-40) % [place] % (Auto) 6.8 (2-11) % Eos % (Auto) 0.1 (0-4) % Baso % (Auto) 0.2 (0-2) % Lymph # (Auto) 3.4 (1.2-4.9) X10*3/uL [place] # (Auto) 1.2 (0.1-1.2) X10*3/uL Eos # (Auto) 0.0 (0.0-0.4) X10*3/uL Baso # (Auto) 0.0 (0.0-0.2) X10*3/uL Abs Immat Gran (auto) 0.20 H (0.00-0.03) X10*3/uL Absolute Neuts (auto) 13.1 H (2.0-8.3) X10*3/uL Absolute Nucleated RBC 0.000 (0.0-0.012) X10*3/uL Nucleated RBC % (auto) 0.0 (0.0-0.2) /100WBC Sodium 141 (135-145) mmol/L Potassium 3.9 (3.3-5.1) mmol/L Chloride 109 H (96-108) mmol/L Carbon Dioxide 18 L (22-29) mmol/L Anion Gap 18 (12-20) BUN 17 H (9-16) mg/dL Creatinine 1.10 (0.5-1.4) mg/dL Estim Creat Clear Calc 88.4 Estimated GFR > 60 Random Glucose 155 H D (60-115) mg/dL Calcium 9.0 (8.4-10.2) mg/dL Total Bilirubin 0.5 (0.0-1.0) mg/dL AST 15 (5-37) U/L ALT 19 (0-40) U/L Alkaline Phosphatase 98 (39-117) U/L Total Protein 7.4 (6.5-8.0) g/dL Albumin 4.5 (3.5-5.0) g/dL COVID-19 ([facility]) Negative (Negative) COVID-19 Clin Com See Note ECG Data Attestation: I personally reviewed and interpreted this ECG as follows: Prior ECG tracings: not available for review Interpretation: Sinus tachycardia, HR-133, no evidence of acute ischemia, LA/QRS/QTC are within normal limits. Discharge Plan Discharge Clinical Impression: Acute hypoxemic respiratory failure, Asthma exacerbation, Engages in vaping Patient Disposition: Admitted As Inpatient Prescriptions: No Action benzonatate [Tessalon Perles] 100 mg capsule 100 mg PO TID PRN (Reason: cough) Qty: 60 RF: 0 prednisone 20 mg tablet 20 mg PO BID Qty: 10 RF: 0 montelukast [Singulair] 10 mg Tablet 10 mg PO DAILY RF: 0 pregabalin [Lyrica] 150 mg Capsule 150 mg PO BID RF: 0 nicotine RF: 0 Hold Instructions: Resume on 11/28/19. Resume as previously directed doxycycline hyclate 100 mg capsule 100 mg PO BID Qty: 20 RF: 0 prednisone 20 mg tablet 40 mg PO DAILY 5 Days Qty: 10 RF: 0 acetaminophen [Tylenol Extra Strength] 500 mg tablet 500 mg PO Q6H PRN (Reason: pain or fever) Qty: 20 RF: 0 lidocaine [Lidoderm] 5 % adhesive patch,medicated 1 patch topical DAILY MDD remove after 12 hours PRN (Reason: pain) Qty: 30 RF: 0 cyclobenzaprine 5 mg tablet 5 mg PO Q8H PRN (Reason: pain (scale score 7-10)) 5 Days Qty: 14 RF: 0 dexamethasone 1 mg tablet 1 mg PO ONCE 1 Days Qty: 1 RF: 0 fluticasone propion-salmeterol [Wixela Inhub] 250-50 mcg/dose blister with device 1 inh inhalation BID 30 Days Qty: 1 RF: 6 albuterol sulfate 90 mcg/actuation HFA aerosol inhaler 2 puff inhalation Q4-6H PRN (Reason: shortness of breath or wheezing) 30 Days Qty: 1 RF: 6 azithromycin 250 mg tablet See Rx Instructions PO .COMPLEX 5 Days Qty: 6 RF: 0
[2020-07-27 22:48] LABS: Basophils Percent Auto 0.2 % (0-2); Eosinophils Percent Auto 0.1 % (0-4); Hematocrit 48.6 % (42-52); Hemoglobin 16.4 g/dl (14.0-18.0); Imm Gran Pct Auto 1.1 % (0.0-0.4); Lymphocytes Absolute Auto 3.4 X10*3/uL (1.2-4.9); Lymphocytes Percent Auto 18.8 % (20-40); MANUAL DIFF FLAG NO; Mean Corpuscular HGB Conc 33.7 g/dl (31.0-36.0); Mean Corpuscular Hemoglobin 31.2 pg (27.0-33.0); Mean Corpuscular Volume 92.4 fL (80-98); Mean Platelet Volume 11.4 fL (9.4-12.4); Monocytes Absolute Auto 1.2 X10*3/uL (0.1-1.2); Monocytes Percent Auto 6.8 % (2-11); Neutrophils Absolute Auto 13.1 X10*3/uL (2.0-8.3); Platelet Count 284 X10*3/uL (160-400); Red Blood Count 5.26 X10*6/uL (4.60-5.80); Red Cell Distribution Width 12.9 % (11.0-16.0); White Blood Count 17.9 X10*3/uL (4.8-10.8)
[2020-07-27] MEDS: LORazepam 2 MG/ML VIAL 0.5 MG IVPUSH (22:53)
[2020-07-27 23:00] VITALS: BP 160/95; PULSE 134; RESP 34; O2SAT 96
--- NOTE | 2020-07-27 23:08 | PC.NURSE ---
PT HAS IMPROVED FOLLOWING MEDICATIONS AND RESPIRATORY TREATMENT. PT NOW SPEAKING IN HALF SENTENCES, RR DECREASED TO 30'S. PT REQUESTED AND WAS GIVEN SIPS OF WATER. PT MORE RELAXED AND REQUESTED TO WATCH TV.
[2020-07-27] MEDS: Albuterol Sulfate (0.083%) 2.5 MG/3 ML VIAL.NEB 10 MG INHALE (23:17)
[2020-07-27 23:18] VITALS: PULSE 127; O2SAT 96
[2020-07-27 23:25] LABS: Alanine Aminotransferase 19 U/L (0-40); Albumin Level 4.5 g/dL (3.5-5.0); Alkaline Phosphatase 98 U/L (39-117); Anion Gap 18 (12-20); Aspartate Amino Transferase 15 U/L (5-37); Bilirubin Total 0.5 mg/dL (0.0-1.0); Blood Urea Nitrogen 17 mg/dL (9-16); Carbon Dioxide 18 mmol/L (22-29); Chloride 109 mmol/L (96-108); Creatinine Clr Calc Pharmacy 88.4; Estimated Glomerular Filt Rate > 60; Glucose Random 155 mg/dL (60-115); Potassium 3.9 mmol/L (3.3-5.1); Sodium 141 mmol/L (135-145); Total Protein 7.4 g/dL (6.5-8.0)
[2020-07-27 23:57] LABS: COVID-19 Test Negative (Negative); IDNOW Serial# 9DD0AD1C
[2020-07-28 00:39] VITALS: BP 149/93; PULSE 110; RESP 22; O2SAT 98
--- NOTE | 2020-07-28 00:40 | PC.NURSE ---
PT RELAXED, MINIMAL WORK OF BREATHING AND RR IMPROVED TO 21/MIN. PT REPORTS DYSPNEA AT 5/10.
[2020-07-28 01:01] LABS: Glucose Urine UA NEG (NEG); Leukocyte Esterase Urine NEG (NEG); Nitrite Urine NEG (NEG); Specific Gravity - Urine 1.015 (1.005-1.025); Urine Blood NEG (NEG); Urine Ketones NEG (NEG); Urine Protein NEG (NEG-TRACE)
[2020-07-28 01:02] LABS: Appearance Urine CLEAR; Color Urine YELLOW; UACC Culture Trigger NO
--- NOTE | 2020-07-28 01:12 | PC.NURSE ---
PT REQUESTED AND PROVIDED WITH SANDWICH AND SODA, PT ALSO HAD 8OZ OF WATER.
[2020-07-28 01:56] VITALS: BP 140/76; PULSE 106; RESP 22; O2SAT 92
--- NOTE | 2020-07-28 01:57 | PC.NURSE ---
pt given warm blanket and pillow, able to recline in semi fowlers position comfortably. pt placed on 2 lpm 02 via nc, spo2 improved from 92% room air to 94% on nc.
[2020-07-28 03:03] VITALS: BP 120/67; PULSE 109; RESP 22
--- NOTE | 2020-07-28 03:08 | PC.NURSE ---
REPORT TAKEN FROM EDY RENDON, FIRST CONTACT WITH PT. RESTING IN BED SKIN PWD RESPIRATIONS EVEN UNLABORED. VSS. AWAITING BED ASSIGNMENT FOR ADMISSION. AWARE OF PLAN OF CARE.
--- NOTE | 2020-07-28 05:19 | PC.NURSE ---
PT CONTINUES TO REST IN BED AWAITING BED ASSIGNMENT FOR ADMISSION, OFFERS NO COMPLAINTS AT THIS TIME.
--- NOTE | 2020-07-28 05:41 | PM.IMHP ---
History of Present Illness Date of Service: 07/27/20 Chief Complaint: Shortness of breath This is a 50-year-old male with past medical history of asthma who presents the hospital shortness of breath. Patient reports that he has asthma will come of this morning from sleep, he was having wheezing, difficulty breathing, dry cough, developed chest pain with coughing, no abdominal pain nausea or vomiting, no diarrhea constipation, no urinary symptoms and no lower extremity edema. Denies any fever or chills. Reports that his last asthma exacerbation was 2 months ago. On arrival to the ED patient was noted to be gasping for air unable to speak and having increased work of breathing. On arrival to the ED hemodynamically stable with a heart rate 145, respiratory rate of 39, BP of 170/107, and satting 94% on non-rebreather. Currently satting 92% on room air. 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 Arthritis Asthma Surgical History H/O kidney removal H/O neck surgery Previous back surgery Social History Household Members: Spouse and Children Housing: Apartment Do you presently have visiting nurse or other home services: No Alcohol intake: never Patient Tobacco Use Status: Current everyday Tobacco user Years Smoked: 30 Advance Directives: No Advance Directives Information Provided: No service: No Current occupational status: employed Meds Allergies Allergy/AdvReac Type Severity Reaction Status Date / Time ibuprofen [From MOTRIN] Allergy Unknown KIDNEY Verified 07/08/20 12:35 ISSUES mushroom AdvReac Mild VOMITING Verified 07/08/20 12:35 Home Medications Medication Instructions Recorded Confirmed Last Taken Type pregabalin [Lyrica] 150 mg PO BID 11/26/19 07/28/20 11/26/19 History Physical Exam Vital Signs and Narrative: Vital Signs: Last Vital Signs Pulse 109 H 07/28/20 03:03 Resp 22 H 07/28/20 03:03 BP 120/67 07/28/20 03:03 Pulse Ox 92 07/28/20 01:56 Body Mass Index 34.4 Const: General: cooperative and no acute distress Orientation/consciousness: patient oriented x3 Eyes: General: appearance normal, both eyes and all related structures Chest: Other: Wheezing throughout the lungs Resp: Effort & Inspection: normal respiratory effort and able to speak in complete sentences Cardio: Rate: regular rate Rhythm: regular rhythm GI: Palpation (GI): Soft to palpation Auscultation: normal bowel sounds Skin: General skin exam: no rashes or lesions noted Neuro: General: patient oriented x3 Cognition (Neuro): normal cognition Extrem: General: Yes normal to inspection and Yes no pedal edema Results Labs CBC and Chem 7: 07/27/20 22:44 07/27/20 22:44 Labs: Laboratory Results - last 24 hr 07/27/20 07/27/20 07/27/20 22:44 22:44 23:36 MCV 92.4 MCH 31.2 MCHC 33.7 RDW 12.9 Plt Count 284 D MPV 11.4 Immature Gran % (Auto) 1.1 H Neut % (Auto) 73.0 Lymph % (Auto) 18.8 L [place] % (Auto) 6.8 Eos % (Auto) 0.1 Baso % (Auto) 0.2 Lymph # (Auto) 3.4 [place] # (Auto) 1.2 Eos # (Auto) 0.0 Baso # (Auto) 0.0 Abs Immat Gran (auto) 0.20 H Absolute Neuts (auto) 13.1 H Absolute Nucleated RBC 0.000 Nucleated RBC % (auto) 0.0 Anion Gap 18 Estim Creat Clear Calc 88.4 Estimated GFR > 60 Random Glucose 155 H D Calcium 9.0 Total Bilirubin 0.5 AST 15 ALT 19 Alkaline Phosphatase 98 Total Protein 7.4 Albumin 4.5 Urine Color Urine Appearance Urine pH Ur Specific [place] Urine Protein Urine Glucose (UA) Urine Ketones Urine Blood Urine Nitrite Ur Leukocyte Esterase COVID-19 ([facility]) Negative COVID-19 Clin Com See Note 07/28/20 00:55 MCV MCH MCHC RDW Plt Count MPV Immature Gran % (Auto) Neut % (Auto) Lymph % (Auto) [place] % (Auto) Eos % (Auto) Baso % (Auto) Lymph # (Auto) [place] # (Auto) Eos # (Auto) Baso # (Auto) Abs Immat Gran (auto) Absolute Neuts (auto) Absolute Nucleated RBC Nucleated RBC % (auto) Anion Gap Estim Creat Clear Calc Estimated GFR Random Glucose Calcium Total Bilirubin AST ALT Alkaline Phosphatase Total Protein Albumin Urine Color YELLOW Urine Appearance CLEAR Urine pH 6.0 Ur Specific [place] 1.015 Urine Protein NEG Urine Glucose (UA) NEG Urine Ketones NEG Urine Blood NEG Urine Nitrite NEG Ur Leukocyte Esterase NEG COVID-19 ([facility]) COVID-19 Clin Com Imaging Radiologist's Impressions: Impressions Chest X-Ray 07/27/20 22:36 IMPRESSION: No evidence of acute disease. Assessment and Plan (1) Acute hypoxemic respiratory failure: Status: Acute (2) Asthma exacerbation: Status: Acute This is a 50-year-old male with past medical history of asthma who presents to the hospital with complaints of shortness of breath and wheezing, found to be hypoxic. # acute asthma exacerbation - no evidence of infection - patient continues to smoke which is most likely a exacerbating factor - started on IV Solu-Medrol b.i.d. - DuoNeb p.r.n. and scheduled # acute hypoxic respiratory failure - secondary to asthma exacerbation - currently on 2 L of oxygen satting 95-96% - manage asthma as above - monitor respiratory status - wean off oxygen as tolerated DVT prophylaxis: Lovenox
[2020-07-28] MEDS: methylPREDNISolone Sod Succ 40 MG/ML VIAL IVPUSH (07:29)
[2020-07-28] MEDS: Enoxaparin Sodium 40 MG/0.4 ML SYRINGE SUBCUT (07:29)
[2020-07-28] MEDS: Pregabalin 150 MG CAPSULE PO (07:29)
[2020-07-28] MEDS: 0.9 % Sodium Chloride Flush 3 ML SYRINGE IVFLUSH (07:29)
[2020-07-28 07:57] VITALS: BP 144/81; PULSE 91; RESP 18; TEMP 36.1; O2SAT 95
[2020-07-28 11:28] VITALS: BP 159/96; PULSE 108; RESP 18; TEMP 36.3; O2SAT 95
--- NOTE | 2020-07-28 11:31 | MHC.CM.PN ---
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 REPORTS HE HAS HEALTH CARE PROXY NAMING HIS GIRL FRIEND THE FIRST AGENT AND HIS BROTHER SECOND , [id number] THAT HE MAIL COPY IN TO THE [facility] MEDICAL RECORDS TO HAVE ON FILE. DISCHARGE PLAN-ANTICIPATE DISCHARGE LATER TODAY , CONFIRMED BY HOSPITALIST HOME NO SERVICES PCP LIMA AGUAYO AT THE [facility] HAS APPOINTMENT ALREADY SCHEDULED FOR SEPTEMBER TRANSPORTATION FAMILY/FRIENDS
[2020-07-28] MEDS: Throat Lozenge, Medicated LOZENGE 1 LOZENGE MUCOUS MEM (11:39)
[2020-07-28] MEDS: Acetaminophen 325 MG TABLET 650 MG PO (11:39)
[2020-07-28] MEDS: Nicotine 21 MG PATCH.TD24 TRANSDERMA (11:39)
--- NOTE | 2020-07-28 12:32 | P.DS_ITS ---
DS: Providers Provider Date of Service: 07/28/20 Date of admission: 07/28/20 01:21 Primary care physician: Unknown Physician DS: Diagnosis Discharge Diagnosis (1) Acute hypoxemic respiratory failure: Status: Acute (2) Asthma exacerbation: Status: Acute DS: Medications Discharge Medications Home Medications: Home Medications Medication Instructions Recorded Confirmed pregabalin [Lyrica] 150 mg PO BID 11/26/19 07/28/20 Previous Rx's Medication Instructions Recorded albuterol sulfate 90 mcg/actuation 2 puff INHALATION Q4-6H PRN 30 04/16/20 aerosol inhaler Days #1 ea nicotine 21 mg TRANSDERMAL DAILY #30 ea 07/28/20 prednisone 20 mg PO DAILY #5 tab 07/28/20 DS: Summary Hospital Course Hospital Course: Shortness of breath This is a 50-year-old male with past medical history of asthma who presents the hospital shortness of breath. Patient reports that he has asthma will come of this morning from sleep, he was having wheezing, difficulty breathing, dry cough, developed chest pain with coughing, no abdominal pain nausea or vomiting, no diarrhea constipation, no urinary symptoms and no lower extremity edema. Denies any fever or chills. Reports that his last asthma exacerbation was 2 months ago. On arrival to the ED patient was noted to be gasping for air unable to speak and having increased work of breathing. On arrival to the ED hemodynamically stable with a heart rate 145, respiratory rate of 39, BP of 170/107, and satting 94% on non-rebreather. Currently satting 92% on room air. On arrival are significant for WBC count of 17.9 (this was drawn after patient received Solu-Medrol) otherwise unremarkable Chest x-ray shows no evidence of acute disease Hospital course 50-year-old male with past medical history of asthma presented to the hospital with complaints of shortness of breath and wheezing,after he vaped,in ER found to be hypoxic, tachycardic and tachypneic,patient treated with iv steroids,duonebs and oxygen with good response, he feels good and wishes to be discharged home since his lung examination is clear his oxygen has been weaned to off he is talking without any shortness of breath he is being discharged home on short course of steroids,rec to continue duoneb updrafts qid and prn and recommended to abstain from vaping and has been placed on nicotine patch. Time Spent with Patient Time attestation: Total time spent providing and/or coordinating discharge services: Discharge coordination time: Greater than 30 minutes Quality: Stroke Does the patient have a stroke diagnosis?: No Physical Exam Vital Signs: Vital Signs: Last Vital Signs Temp 97.3 F 07/28/20 11:28 Pulse 108 H 07/28/20 11:28 Resp 18 07/28/20 11:28 BP 159/96 H 07/28/20 11:28 Pulse Ox 95 07/28/20 11:28 Body Mass Index 34.4 General patient resting comfortably in no acute distress, talking in full sentences. Neck supple no JVD. CVS regular rate rhythm, Respiratory lungs clear to auscultation, no respiratory distress, no wheeze, no rhonchi. Gastrointestinal abdomen soft, nontender, bowel sounds audible, no guarding , no rigidity. Extremities no clubbing cyanosis or edema. Neuro nonfocal , speech clear. Skin no rash DS: Data Data Completed and Pending Labs on day of discharge: Laboratory Results - last 24 hr 07/27/20 07/27/20 07/27/20 22:44 22:44 23:36 WBC 17.9 H RBC 5.26 Hgb 16.4 Hct 48.6 MCV 92.4 MCH 31.2 MCHC 33.7 RDW 12.9 Plt Count 284 D MPV 11.4 Immature Gran % (Auto) 1.1 H Neut % (Auto) 73.0 Lymph % (Auto) 18.8 L [place] % (Auto) 6.8 Eos % (Auto) 0.1 Baso % (Auto) 0.2 Lymph # (Auto) 3.4 [place] # (Auto) 1.2 Eos # (Auto) 0.0 Baso # (Auto) 0.0 Abs Immat Gran (auto) 0.20 H Absolute Neuts (auto) 13.1 H Absolute Nucleated RBC 0.000 Nucleated RBC % (auto) 0.0 Sodium 141 Potassium 3.9 Chloride 109 H Carbon Dioxide 18 L Anion Gap 18 BUN 17 H Creatinine 1.10 Estim Creat Clear Calc 88.4 Estimated GFR > 60 Random Glucose 155 H D Calcium 9.0 Total Bilirubin 0.5 AST 15 ALT 19 Alkaline Phosphatase 98 Total Protein 7.4 Albumin 4.5 Urine Color Urine Appearance Urine pH Ur Specific [place] Urine Protein Urine Glucose (UA) Urine Ketones Urine Blood Urine Nitrite Ur Leukocyte Esterase COVID-19 ([facility]) Negative COVID-19 Clin Com See Note 07/28/20 00:55 WBC RBC Hgb Hct MCV MCH MCHC RDW Plt Count MPV Immature Gran % (Auto) Neut % (Auto) Lymph % (Auto) [place] % (Auto) Eos % (Auto) Baso % (Auto) Lymph # (Auto) [place] # (Auto) Eos # (Auto) Baso # (Auto) Abs Immat Gran (auto) Absolute Neuts (auto) Absolute Nucleated RBC Nucleated RBC % (auto) Sodium Potassium Chloride Carbon Dioxide Anion Gap BUN Creatinine Estim Creat Clear Calc Estimated GFR Random Glucose Calcium Total Bilirubin AST ALT Alkaline Phosphatase Total Protein Albumin Urine Color YELLOW Urine Appearance CLEAR Urine pH 6.0 Ur Specific [place] 1.015 Urine Protein NEG Urine Glucose (UA) NEG Urine Ketones NEG Urine Blood NEG Urine Nitrite NEG Ur Leukocyte Esterase NEG COVID-19 ([facility]) COVID-19 Clin Com Discharge Plan Discharge Patient Disposition: Home, Self-Care Discharge Diagnosis: Acute hypoxic respiratory failure Acute asthma exacerbation Referrals: Physician,Unknown [Primary Care Provider] - 1 Week Discharge Medications: New nicotine 21 mg/24 hr Patch 24 Hour 21 mg transdermal DAILY Qty: 30 RF: 0 prednisone 20 mg tablet 20 mg PO DAILY Qty: 5 RF: 0 Continued pregabalin [Lyrica] 150 mg Capsule 150 mg PO BID RF: 0 albuterol sulfate 90 mcg/actuation HFA aerosol inhaler 2 puff inhalation Q4-6H PRN (Reason: shortness of breath or wheezing) 30 Days Qty: 1 RF: 6 Discharge Orders: Discharge Order (Routine); Ordered 07/28/20 Ordered By: Niall Alexandre Diet: advance to usual diet Activity on Discharge: As tolerated Stand Alone Forms: Patient Portal Discharge page Care Plan Goals: Acute asthma exacerbation due to vaping strongly rec to avoid allergens and smoking,take prednisone for 5 days,use albuterol updraft 4 x per day and as needed for shortness of breath every 3 hrs Health Concerns: Asthma/vaping Plan of Treatment: follow up with pcp in 1 week Assessment: as above
== END 2020-07-28 13:10 | disposition home or self-care (01) | DRG 144 ==
LOC: HO.ED 07-28 00:29 → HO.EDOVER 07-28 02:16 → HO.S3 07-28 05:28
PROVIDERS: Admitting Provider Internal Medicine; Emergency Provider Student in an Organized Health Care Education/Training Program; PCP Family Medicine; Visit Provider Hospitalist
DX: U07.0 Vaping-related disorder (principal); J96.01 Acute respiratory failure with hypoxia; J45.901 Unspecified asthma with (acute) exacerbation; F17.210 Nicotine dependence, cigarettes, uncomplicated; Z20.822 Contact with and (suspected) exposure to COVID-19; Z71.6 Tobacco abuse counseling; Z88.6 Allergy status to analgesic agent; Z79.52 Long term (current) use of systemic steroids; Z79.899 Other long term (current) drug therapy
CPT/HCPCS: 36415; 71045; 80053; 81003; 85025; 87635; 93005; 94640; 94644; 96365; 96366; 96375; 99218; 99285; J1650; J2060; J2920; J2930; J3475

== ENCOUNTER 2020-07-28 07:49 | Outpatient (REF) | payer MEDICAID, SELFPAY | END 2020-07-28 07:50 | disposition home or self-care (01) | LOC: HO.HOSX 07:49 | PROVIDERS: Visit Provider Physician Assistant | DX: Z13.89 Encounter for screening for other disorder (principal) ==

== ENCOUNTER 2020-09-14 00:23 | Inpatient (IN) | payer MEDICAID, SELFPAY ==
[2020-09-14] VITALS (12 sets, daily range): BP systolic 125–160; BP diastolic 77–94; PULSE 79–118; RESP 17–28; TEMP 36.5–36.9; O2SAT 94–98; BMI 34.0; BMI 34.4
--- NOTE | ~2020-09-14 | XR_ITS ---
EXAMINATION: XR CHEST CLINICAL INFORMATION: Cough COMPARISON: 07/27/2020 TECHNIQUE: 2 views of the chest were obtained. FINDINGS: Lung volumes are symmetric. No focal consolidation is seen. No evidence of pneumothorax, pleural effusion, or pulmonary edema. The cardiomediastinal contour is unremarkable. ACDF hardware noted in the lower cervical spine. No acute osseous findings are seen. XR/XR chest 2V IMPRESSION: No acute cardiopulmonary findings.
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
[2020-09-14] MEDS: Albuterol Sulfate (0.083%) 2.5 MG/3 ML VIAL.NEB 10 MG INHALE ×2 (01:30→04:11)
[2020-09-14 01:51] LABS: Basophils Absolute Auto 0.1 X10*3/uL (0.0-0.2); Basophils Percent Auto 0.5 % (0-2); Eosinophils Absolute Auto 0.8 X10*3/uL (0.0-0.4); Eosinophils Percent Auto 7.6 % (0-4); Hematocrit 42.8 % (42-52); Hemoglobin 14.5 g/dl (14.0-18.0); Imm Gran Abs Auto 0.17 X10*3/uL (0.00-0.03); Imm Gran Pct Auto 1.7 % (0.0-0.4); Lymphocytes Absolute Auto 2.4 X10*3/uL (1.2-4.9); Lymphocytes Percent Auto 24.3 % (20-40); MANUAL DIFF FLAG NO; Mean Corpuscular HGB Conc 33.9 g/dl (31.0-36.0); Mean Corpuscular Hemoglobin 31.7 pg (27.0-33.0); Mean Corpuscular Volume 93.7 fL (80-98); Mean Platelet Volume 11.4 fL (9.4-12.4); Monocytes Absolute Auto 1.1 X10*3/uL (0.1-1.2); Monocytes Percent Auto 10.8 % (2-11); Neutrophils Absolute Auto 5.4 X10*3/uL (2.0-8.3); Neutrophils Percent Auto 55.1 % (45-73); Platelet Count 193 X10*3/uL (160-400); Red Blood Count 4.57 X10*6/uL (4.60-5.80); Red Cell Distribution Width 13.3 % (11.0-16.0); White Blood Count 9.9 X10*3/uL (4.8-10.8)
[2020-09-14 02:19] LABS: Anion Gap 13 (12-20); Blood Urea Nitrogen 18 mg/dL (9-16); Calcium 8.9 mg/dL (8.4-10.2); Chloride 108 mmol/L (96-108); Creatinine Clr Calc Pharmacy 89.8; Estimated Glomerular Filt Rate > 60; Glucose Random 109 mg/dL (60-115); Potassium 3.8 mmol/L (3.3-5.1); Sodium 140 mmol/L (135-145)
[2020-09-14 02:24] LABS: Carbon Dioxide 23 mmol/L (22-29)
[2020-09-14] MEDS: methylPREDNISolone Sod Succ 125 MG/2 ML VIAL IVPUSH (03:30)
[2020-09-14] MEDS: Magnesium Sulfate/H2O 2 GM/50 ML PIGGYBACK IV (03:30)
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
[2020-09-14 06:27] LABS: COVID-19 Test Negative (Negative); IDNOW Serial# 9DD0AD1C
[2020-09-14 06:37] LABS: Troponin-I High Sensitivity 14.4 ng/L (<3.5-35.0)
[2020-09-14] MEDS: methylPREDNISolone Sod Succ 40 MG/ML VIAL IVPUSH ×3 (07:21→18:16)
[2020-09-14] MEDS: Azithromycin 500 MG TABLET PO (07:21)
[2020-09-14] MEDS: Enoxaparin Sodium 40 MG/0.4 ML SYRINGE SUBCUT (07:21)
[2020-09-14] MEDS: Albuterol/Iprat 2.5/0.5MG 3 ML AMPUL.NEB INHALE ×4 (08:44→20:19)
[2020-09-14] MEDS: 0.9 % Sodium Chloride Flush 3 ML SYRINGE IVFLUSH ×3 (09:14→19:51)
[2020-09-14] MEDS: Famotidine 20 MG TABLET PO (09:14)
--- NOTE | 2020-09-14 13:52 | PC.NURSE ---
pt is not pleased that his tv is not working states how do you expect me to stay here in the hospital with no tv. pt educated that we are here to take care of his medical needs. pt not happy and asking if he has to stay. pt educated about leaving ama but reminded he is being admitted for a reason. pt medicated per emar and given lunch. pt aware of plan of care.
--- NOTE | 2020-09-14 14:20 | PC.NURSE ---
denita to call back
[2020-09-14] MEDS: Acetaminophen 325 MG TABLET 650 MG PO (15:01)
[2020-09-14] MEDS: Pregabalin 150 MG CAPSULE PO (18:15)
[2020-09-14] MEDS: oxyCODONE HCl Immed Release 5 MG TABLET PO (19:51)
[2020-09-15] VITALS (12 sets, daily range): BP systolic 140–157; BP diastolic 82–92; PULSE 97–118; RESP 18–20; TEMP 36.4–36.8; O2SAT 94–99
[2020-09-15] MEDS: Melatonin 3 MG TABLET 6 MG PO ×2 (00:12→19:57)
[2020-09-15] MEDS: methylPREDNISolone Sod Succ 40 MG/ML VIAL IVPUSH ×4 (00:12→18:38)
[2020-09-15] MEDS: Albuterol/Iprat 2.5/0.5MG 3 ML AMPUL.NEB INHALE ×3 (00:30→11:09)
--- NOTE | 2020-09-15 00:59 | PC.NURSE ---
pt with 17 beat run VT asymptomatic - reported to Dr. Elvia limon with frequent pvc's, labs in am ok per [employer]. pacer pads at bedside. will continue to monitor
[2020-09-15 05:32] LABS: Basophils Percent Auto 0.2 % (0-2); Eosinophils Percent Auto 0.2 % (0-4); Hematocrit 44.4 % (42-52); Hemoglobin 14.5 g/dl (14.0-18.0); Imm Gran Abs Auto 0.38 X10*3/uL (0.00-0.03); Imm Gran Pct Auto 1.6 % (0.0-0.4); Lymphocytes Absolute Auto 0.8 X10*3/uL (1.2-4.9); Lymphocytes Percent Auto 3.4 % (20-40); MANUAL DIFF FLAG SCAN; Mean Corpuscular HGB Conc 32.7 g/dl (31.0-36.0); Mean Corpuscular Volume 94.9 fL (80-98); Mean Platelet Volume 12.1 fL (9.4-12.4); Monocytes Absolute Auto 0.4 X10*3/uL (0.1-1.2); Monocytes Percent Auto 1.7 % (2-11); Neutrophils Absolute Auto 21.8 X10*3/uL (2.0-8.3); Neutrophils Percent Auto 92.9 % (45-73); Platelet Count 215 X10*3/uL (160-400); Red Blood Count 4.68 X10*6/uL (4.60-5.80); Red Cell Distribution Width 13.4 % (11.0-16.0); SCAN SMEAR FLAG 1; White Blood Count 23.5 X10*3/uL (4.8-10.8)
[2020-09-15 05:56] LABS: SLIDE REVIEW VERIFIED
[2020-09-15 06:02] LABS: Anion Gap 17 (12-20); Blood Urea Nitrogen 17 mg/dL (9-16); Calcium 9.3 mg/dL (8.4-10.2); Carbon Dioxide 19 mmol/L (22-29); Chloride 106 mmol/L (96-108); Creatinine Clr Calc Pharmacy 105.6; Estimated Glomerular Filt Rate > 60; Glucose Random 143 mg/dL (60-115); Potassium 4.4 mmol/L (3.3-5.1); Sodium 138 mmol/L (135-145)
[2020-09-15] MEDS: Enoxaparin Sodium 40 MG/0.4 ML SYRINGE SUBCUT (06:19)
[2020-09-15] MEDS: Azithromycin 500 MG TABLET PO (06:21)
[2020-09-15] MEDS: Acetaminophen 325 MG TABLET 650 MG PO (08:08)
[2020-09-15] MEDS: Famotidine 20 MG TABLET PO (08:08)
[2020-09-15] MEDS: Pregabalin 150 MG CAPSULE PO ×2 (08:08→19:57)
[2020-09-15] MEDS: 0.9 % Sodium Chloride Flush 3 ML SYRINGE IVFLUSH ×3 (08:13→20:41)
--- NOTE | 2020-09-15 10:03 | MHC.CM.PN ---
met with pt raj inepenmdent and being dcd today pt key sbis car in parking lot dc plan home no services
--- NOTE | 2020-09-15 10:07 | MHC.CM.PN ---
pt dcd home no services pt will drive himself home
--- NOTE | 2020-09-15 10:10 | MHC.CM.PN ---
met with pt who is independent cm intervention is not indicated pt will drive himself home his car is in parking lot
--- NOTE | 2020-09-15 12:18 | HO.PM.IMPN ---
Subjective Subjective Date of Service: 09/15/20 Interval History: F/u on asthma exacerbation, still feel sob Review of Systems .ros Physical Exam Vital Signs: Vital Signs: Last Vital Signs Temp 97.5 F 09/15/20 11:44 Pulse 116 H 09/15/20 11:44 Resp 20 09/15/20 11:44 BP 157/88 H 09/15/20 11:44 Pulse Ox 95 09/15/20 11:44 Body Mass Index 34.4 Const: Other: General: AO X 3, no acute distress Resp: wheeze, CVS: S1,S2,RRR GI: +BS, NT, no distention Skin: No rash Neuro: motor grossly intact Psych: appropriate affect Objective Data Current Medications Generic Name Dose Route Start Last Admin Trade Name Freq PRN Reason Stop Dose Admin Acetaminophen 650 mg 09/14/20 05:53 09/15/20 08:08 Acetaminophen 325 Mg Tablet PO 650 mg Q6H PRN Administration Pain, Mild (Pain Scale 1-3) Azithromycin 500 mg 09/14/20 06:00 09/15/20 06:21 Azithromycin 500 Mg Tablet PO 500 mg Q24H JUAN Administration Benzonatate 100 mg 09/15/20 12:14 Benzonatate 100 Mg Capsule PO TID PRN Cough Enoxaparin Sodium 40 mg 09/14/20 07:00 09/15/20 06:19 Enoxaparin Sodium 40 Mg/0.4 Ml Syringe SUBCUT 40 mg Q24H JUAN Administration Famotidine 20 mg 09/14/20 09:00 09/15/20 08:08 Famotidine 20 Mg Tablet PO 20 mg DAILY JUAN Administration Magnesium Hydroxide 30 ml 09/14/20 05:53 Milk Of Magnesia 30 Ml Oral.Susp PO DAILY PRN Constipation Melatonin 6 mg 09/14/20 05:53 09/15/20 00:12 Melatonin 3 Mg Tablet PO 6 mg BEDTIME PRN Administration Insomnia Methylprednisolone Sodium Succinate 40 mg 09/14/20 07:00 09/15/20 12:09 Methylprednisolone Sod Succ 40 Mg/Ml Vial IVPUSH 40 mg Q6H JUAN Administration Oxycodone HCl 5 mg 09/14/20 05:53 09/14/20 19:51 Oxycodone Hcl Immed Release 5 Mg Tablet PO 5 mg Q6H PRN Administration Pain, Severe (Pain Scale 7-10) Pregabalin 150 mg 09/14/20 21:00 09/15/20 08:08 Pregabalin 150 Mg Capsule PO 150 mg BID JUAN Administration Sodium Chloride 3 ml 09/14/20 08:00 09/15/20 08:13 0.9 % Sodium Chloride Flush 3 Ml Syringe IVFLUSH 3 ml QSHIFT JUAN Administration Labs CBC & Chem 7: 09/15/20 04:29 09/15/20 04:29 Labs: Laboratory Results - last 24 hr 09/15/20 09/15/20 04:29 04:29 WBC 23.5 H RBC 4.68 Hgb 14.5 Hct 44.4 MCV 94.9 MCH 31.0 MCHC 32.7 RDW 13.4 Plt Count 215 MPV 12.1 Immature Gran % (Auto) 1.6 H Neut % (Auto) 92.9 H Lymph % (Auto) 3.4 L [place] % (Auto) 1.7 L Eos % (Auto) 0.2 Baso % (Auto) 0.2 Lymph # (Auto) 0.8 L [place] # (Auto) 0.4 Eos # (Auto) 0.0 Baso # (Auto) 0.0 Abs Immat Gran (auto) 0.38 H Absolute Neuts (auto) 21.8 H Absolute Nucleated RBC 0.000 Nucleated RBC % (auto) 0.0 Smear Tech's Comments VERIFIED Sodium 138 Potassium 4.4 Chloride 106 Carbon Dioxide 19 L Anion Gap 17 BUN 17 H Creatinine 0.89 Estim Creat Clear Calc 105.6 Estimated GFR > 60 Random Glucose 143 H Calcium 9.3 Assessment and Plan (1) Asthma exacerbation: Status: Acute Assessment and Plan: 50-year-old male with a past medical history of asthma, arthritis presented to the hospital with a chief complaint of shortness of breath. Noted to be in acute asthma exacerbation. Acute asthma exacerbation: improving, change Duoneb to Xopenex d/t tachycaria IV Solumedrol for 1 more day. Supplemental oxygen p.r.n. Azithromycin for presumed bronchitis Tesalon for cough DVT prophylaxis: Lovenox Code status: Full code Quality Stroke Does the patient have a stroke diagnosis?: No VTE Prior VTE?: No VTE Risk Level:: Medical - moderate - high VTE Device Contraindication: Treatment Not Indicated VTE Drug Contraindication: N/A - Med Ordered
--- NOTE | 2020-09-15 12:26 | P.CDIC_ITS ---
CDI Concurrent Query Service Date: 09/16/20 Documentation Clarification: Please clarify if you are treating a proba ble/suspected/likely or confirmed: Asthma Type: -Mild intermittent - less than 2x/week -Mild persistent - more than 2x/week but not daily -Moderate persistent - daily and may restrict physical activity -Severe persistent - throughout the day with frequent attacks, limiting activities -Exercise induced -Other, please specify -Unable to determine Provider Response: Other Other Diagnosis: Moderate persistent asthma PLEASE DO NOT DELETE/MODIFY EXISTING CONTENT Additional information is needed in order to code to the highest accuracy and appropriate Severity of Illness (SOI). Please clarify the information noted below in your progress notes and discharge summary. Risk Factors/Clinical Indicators/Treatments Admit with Acute Asthma Exacerbation treated with nebulizer, antibiotic and steroid. Underlying history of Asthma CDS: Misty [place] RN Contact Number: [phone] Please Review the information above and exercise your independent professional judgment in responding to the query. If you concur, pleas document in the PROGRESS NOTES and DISCHARGE SUMMARY. If you do not agree with the query, please document in the query above. THIS QUERY IS PART OF THE PERMANENT MEDICAL RECORD
[2020-09-15] MEDS: Benzonatate 100 MG CAPSULE PO ×2 (12:37→20:41)
--- NOTE | 2020-09-15 16:53 | PC.NURSE ---
PRN tessalon not effective. Pt states no change, and pt is coughing very freq parveen with ambulating. notified- states will start new PO hycodan PRN
[2020-09-15] MEDS: guaiFEN/Codeine SF 200/20/10ML 10 ML LIQUID 5 ML PO (17:33)
[2020-09-15] MEDS: oxyCODONE HCl Immed Release 5 MG TABLET PO (19:57)
[2020-09-16] MEDS: guaiFEN/Codeine SF 200/20/10ML 10 ML LIQUID 5 ML PO ×2 (01:46→07:44)
[2020-09-16] MEDS: methylPREDNISolone Sod Succ 40 MG/ML VIAL IVPUSH ×2 (01:47→06:06)
[2020-09-16 02:00] VITALS: PULSE 115; O2SAT 96
[2020-09-16 03:30] VITALS: BP 142/84; PULSE 95; RESP 18; TEMP 36.7; O2SAT 95
[2020-09-16] MEDS: Enoxaparin Sodium 40 MG/0.4 ML SYRINGE SUBCUT (06:06)
[2020-09-16] MEDS: Azithromycin 500 MG TABLET PO (06:06)
[2020-09-16] MEDS: Benzonatate 100 MG CAPSULE PO (06:19)
--- NOTE | 2020-09-16 07:41 | PM.DS ---
DS: Providers Provider Date of Service: 09/16/20 Date of admission: 09/14/20 05:53 Primary care physician: Mirtha Lunsford MD DS: Diagnosis Discharge Diagnosis (1) Asthma exacerbation: Status: Acute DS: Medications Discharge Medications Home Medications: Home Medications Medication Instructions Recorded Confirmed pregabalin [Lyrica] 150 mg PO BID 11/26/19 09/14/20 montelukast 1 tab PO QPM 09/14/20 09/14/20 Previous Rx's Medication Instructions Recorded albuterol sulfate 90 mcg/actuation 2 puff INHALATION Q4-6H PRN 30 04/16/20 aerosol inhaler Days #1 ea nicotine 21 mg TRANSDERMAL DAILY #30 ea 07/28/20 prednisone 20 mg PO DAILY #5 tab 07/28/20 codeine-guaifenesin 5 ml PO Q6H PRN #118 ml 09/16/20 DS: Summary Hospital Course Hospital Course: Patient presented with exacerbation of asthma after recent steroid use and was admitted for exacerbation of moderate persitent asthma treated with IV steroid , bronchodilators by Nebs and has significantly improved and being transitioned to oral prednisone, cough medication and advised stop smoking and follow up with you PCP. Final diagnosis: Asthma exacerbation Time Spent with Patient Time attestation: Total time spent providing and/or coordinating discharge services: Discharge coordination time: Greater than 30 minutes Quality: Stroke Does the patient have a stroke diagnosis?: No Physical Exam Vital Signs: Vital Signs: Last Vital Signs Temp 98.0 F 09/16/20 03:30 Pulse 95 09/16/20 03:30 Resp 18 09/16/20 03:30 BP 142/84 H 09/16/20 03:30 Pulse Ox 95 09/16/20 03:30 Body Mass Index 34.4 Const: Other: General: AO X 3, no acute distress Resp: CTA bilateral CVS: S1,S2,RRR GI: +BS, NT, no distention Skin: No rash Neuro: motor grossly intact Psych: appropriate affect Discharge Plan Discharge Anticipated Discharge Date/Time: 09/16/20 09:04 Patient Disposition: Home, Self-Care Discharge Diagnosis: Asthma exacerbation Referrals: Mirtha Lunsford MD [Primary Care Provider] - 1 Week Discharge Medications: New prednisone 10 mg tablet See Taper mg PO DAILY Qty: 20 RF: 0 codeine-guaifenesin 10-100 mg/5 mL Liquid 5 ml PO Q6H PRN (Reason: Cough) Qty: 118 RF: 0 Continued pregabalin [Lyrica] 150 mg Capsule 150 mg PO BID RF: 0 nicotine 21 mg/24 hr Patch 24 Hour 21 mg transdermal DAILY Qty: 30 RF: 0 montelukast 10 mg tablet 1 tab PO QPM RF: 0 albuterol sulfate 90 mcg/actuation HFA aerosol inhaler 2 puff inhalation Q4-6H PRN (Reason: shortness of breath or wheezing) 30 Days Qty: 1 RF: 6 Discontinued prednisone 20 mg tablet 20 mg PO DAILY Qty: 5 RF: 0 Discharge Orders: Discharge Order (Routine); Ordered 09/16/20 Ordered By: Woody Cruz Diet: advance to usual diet Activity on Discharge: As tolerated Stand Alone Forms: Patient Portal Discharge page, Work/School Release Care Plan Goals: Prevent rehospitalization and full recover from asthma Health Concerns: [place] Plan of Treatment: Use inhalers, take steroid as directed and stop smoking Assessment: as above Discharge Date/Time: 09/16/20 09:30
[2020-09-16 07:44] VITALS: BP 140/95; PULSE 91; RESP 20; TEMP 36.6; O2SAT 96
[2020-09-16] MEDS: 0.9 % Sodium Chloride Flush 3 ML SYRINGE IVFLUSH (07:45)
[2020-09-16] MEDS: Pregabalin 150 MG CAPSULE PO (07:45)
[2020-09-16] MEDS: Famotidine 20 MG TABLET PO (07:45)
--- NOTE | 2020-09-16 07:55 | PC.NURSE ---
Walked pt around unit with cont pulseox on - didnt drop below 95%
[2020-09-16 08:00] VITALS: PULSE 85; O2SAT 95
[2020-09-16 08:12] VITALS: PULSE 89; O2SAT 95
--- NOTE | 2020-09-16 08:47 | MHC.CM.PN ---
pts dc no skilled servceis ordered by
== END 2020-09-16 09:30 | disposition home or self-care (01) | DRG 141 ==
LOC: HO.ED 05:27 → HO.EDOVER 06:09 → HO.IMC 14:16
PROVIDERS: Admitting Provider Hospitalist; Emergency Provider Emergency Medicine; PCP Family Medicine; Visit Provider Internal Medicine
DX: J45.41 Moderate persistent asthma with (acute) exacerbation (principal); F17.210 Nicotine dependence, cigarettes, uncomplicated; Z20.822 Contact with and (suspected) exposure to COVID-19; Z71.6 Tobacco abuse counseling; Z90.5 Acquired absence of kidney; Z88.6 Allergy status to analgesic agent; Z79.899 Other long term (current) drug therapy
CPT/HCPCS: 36415; 71046; 80048; 84484; 85025; 87635; 94640; 94644; 94645; 99219; 99285; J1650; J2920; J2930; J3475

== ENCOUNTER 2020-09-22 06:21 | Inpatient (IN) | payer MEDICAID, SELFPAY ==
[2020-09-22] VITALS (10 sets, daily range): BP systolic 134–153; BP diastolic 81–100; PULSE 84–106; RESP 18–22; TEMP 36–36.9; O2SAT 92–96; BMI 34.3
--- NOTE | ~2020-09-22 | XR_ITS ---
EXAMINATION: XR CHEST CLINICAL INFORMATION: Dyspnea COMPARISON: Previous chest x-ray 09/14/2020 TECHNIQUE: Frontal view of the chest was obtained. FINDINGS: The cardiac and mediastinal contours are stable. There are increased central bronchovascular markings questionable for airways disease or small infiltrates. Mild pulmonary edema cannot be excluded and clinical correlation is recommended. The lungs are otherwise clear. There is no pleural effusion or pneumothorax. There are degenerative changes of the spine. There are postsurgical changes to the cervical spine. XR/XR chest 1V IMPRESSION: Increased central bronchovascular markings questionable for airways disease or small infiltrates. Differential would include mild pulmonary edema. Clinical correlation recommended.
--- NOTE | 2020-09-22 06:38 | ECG_ITS ---
Test Reason : SOB Blood Pressure : / mmHG Vent. Rate : 099 BPM Atrial Rate : 099 BPM P-R Int : 124 ms QRS Dur : 084 ms QT Int : 356 ms P-R-T Axes : 068 036 030 degrees QTc Int : 456 ms Normal sinus rhythm Normal ECG When compared to the previous EKG of Criteria for inferior infarct not present Referred By: Myrna Corrales Electronically Signed By:Donald Whitehead
--- NOTE | 2020-09-22 06:40 | ED_ITS ---
HPI - Asthma General Chief Complaint: Dyspnea Stated Complaint: Trouble breathing since last visit Time Seen by Provider: 09/22/20 06:35 Source: patient and old records reviewed Mode of arrival: ambulatory Limitations: no limitations History of Present Illness HPI Narrative: 50 yo male with asthma here with attack since leaving hospital for same on 09/16 he is on oral steroids did not take today's dose, he works m [employer] and thinks exposure triggered this attack MD complaint: asthma attack and shortness of breath Onset (ago): day(s) (3) Severity: moderate and similar to prior Associated symptoms: dry cough Asthma History: childhood onset Treatments Prior to Arrival: inhaled bronchodilator Related Data Home Medications Medication Instructions Recorded Confirmed pregabalin 150 mg capsule (Lyrica) 150 mg PO BID 11/26/19 09/14/20 montelukast 10 mg tablet 1 tab PO QPM 09/14/20 09/14/20 Previous Rx's Medication Instructions Recorded albuterol sulfate 90 mcg/actuation 2 puff INHALATION Q4-6H PRN 30 04/16/20 aerosol inhaler Days #1 ea nicotine 21 mg/24 hr daily 21 mg TRANSDERMAL DAILY #30 ea 07/28/20 transdermal patch codeine 10 mg-guaifenesin 100 mg/5 5 ml PO Q6H PRN #118 ml 09/16/20 mL oral liquid prednisone 10 mg tablet See Taper PO DAILY #20 tab 09/16/20 Allergies Allergy/AdvReac Type Severity Reaction Status Date / Time ibuprofen [From MOTRIN] Allergy Unknown KIDNEY Verified 09/14/20 17:02 ISSUES mushroom AdvReac Mild VOMITING Verified 09/14/20 17:02 Review of Systems Review of Systems: Constitutional : No Fever, No Chills ENT/Mouth : No Hoarseness, No sore throat, No Rhinorrhea Eyes: No Redness, No Discharge, No Vision Changes Cardiovascular : No Chest Pain, positive SOB, positive Dyspnea on Exertion, No Edema Respiratory : positive Cough, No Sputum, positive Wheezing, Gastrointestinal : No Nausea, No Vomiting, No Diarrhea, No abdominal Pain Genitourinary : No Dysuria, No Hematuria Musculoskeletal : No joint pain, No Myalgias Skin : No rash Neuro : No Weakness, No Numbness, No Headache Psych : No anxiety, depression Heme/Lymph: No Bruising, No Bleeding Endocrine : No Polyuria, No Polydipsia All other systems reviewed and are negative [facility] Past Medical History Attestation statement: The following information was validated with the patient. 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 Arthritis Asthma Surgical History H/O kidney removal H/O neck surgery Previous back surgery Social History Social History Household Members: Spouse Housing: Apartment Do you presently have visiting nurse or other home services: No Alcohol intake: current Alcohol intake frequency: a few times a week Patient Tobacco Use Status: Current everyday Tobacco user Tobacco use type: Cigarette Cigarettes Per Day: 3 Years Smoked: 20 years e-Cigarette/Vaping Use: Former Use Second Hand Smoke Exposure: Yes Advance Directives: No Advance Directives Information Provided: No service: No Current occupational status: employed Physical Exam Vital Signs: Vital Signs: Last Vital Signs Temp 98.0 F 09/22/20 08:16 Pulse 91 09/22/20 08:16 Resp 20 09/22/20 08:16 BP 140/87 H 09/22/20 08:16 Pulse Ox 92 09/22/20 08:16 Body Mass Index 34.3 Appearance: Alert. Oriented X3. mild acute distress. Eyes: Pupils equal, round and reactive to light. ENT: Pharynx normal. Neck: Normal inspection. Neck supple. CVS: Normal heart rate and rhythm. Pulses normal. Respiratory: Mild respiratory distress retractions nd tachypnea. Breath sounds decreased throughout with end exp wheezes Abdomen: Soft and nontender. Skin: Skin warm and dry. Normal skin color. Normal skin turgor. Extremities: No lower extremity edema. No calf ttp Neuro: Oriented X 3. No motor deficit. No sensory deficit. Course Course Course Narrative: repeat neb ordered, given CXR and hx of COPD syndrome - added on antibiotics given repeat nebs, already on steroids - admit for further management MDM - Asthma MDM Narrative Medical decision making narrative: 50 yo male with hx of asthma comes in with exacerbation after possible cleaning product/work exposure, at this time will need IV steroids, IV magnesium, hour long neb 10mg, labs, cultures, CXR, COVID swab, currently on steroids if he does not drastically improve will need admission for further care Lab Data Result diagrams: 09/22/20 07:03 09/22/20 07:03 Labs: Lab Results 09/22/20 09/22/20 09/22/20 Range/Units 07:03 07:03 07:03 WBC 14.6 H (4.8-10.8) X10*3/uL RBC 5.01 (4.60-5.80) X10*6/uL Hgb 15.9 (14.0-18.0) g/dl Hct 46.8 (42-52) % MCV 93.4 (80-98) fL MCH 31.7 (27.0-33.0) pg MCHC 34.0 (31.0-36.0) g/dl RDW 13.4 (11.0-16.0) % Plt Count 203 (160-400) X10*3/uL MPV 11.1 (9.4-12.4) fL Immature Gran % (Auto) Cancelled Neut % (Auto) Cancelled Lymph % (Auto) Cancelled [place] % (Auto) Cancelled Eos % (Auto) Cancelled Baso % (Auto) Cancelled Lymph # (Auto) Cancelled [place] # (Auto) Cancelled Eos # (Auto) Cancelled Baso # (Auto) Cancelled Abs Immat Gran (auto) Cancelled Absolute Neuts (auto) Cancelled Absolute Nucleated RBC 0.000 (0.0-0.012) X10*3/uL Nucleated RBC % (auto) 0.0 (0.0-0.2) /100WBC Neutrophils % (Manual) 60 (45-73) % Band Neutrophils % 9 H (3-5) % Lymphocytes % (Manual) 15 L (20-40) % Monocytes % (Manual) 7 (2-11) % Eosinophils % (Manual) 7 H (0-4) % Metamyelocytes % 2 % Abs Neuts (Manual) 10.1 H (2.2-7.9) X10*3/uL Lymphocytes # (Manual) 2.2 (0.6-4.8) X10*3/uL Monocytes # (Manual) 1.0 (0.0-1.2) X10*3/uL Eosinophils # (Manual) 1.0 H (0.0-0.8) X10*3/UL Metamyelocytes # 0.3 X10*3/uL Nucleated RBCs 1 H (0-0) /100WBC Toxic Vacuolation PRESENT Platelet Estimate NORMAL (NORMAL) Large Platelets PRESENT Plt Morphology Comment NOTED RBC Morphology NORMAL VBG pH (7.32-7.43) VBG pCO2 mmHg VBG pO2 mmHg VBG HCO3 (22-26) mmol/L VBG O2 Saturation % VBG Base Excess mmol/L Sodium 138 (135-145) mmol/L Potassium 3.9 (3.3-5.1) mmol/L Chloride 101 (96-108) mmol/L Carbon Dioxide 26 (22-29) mmol/L Anion Gap 15 (12-20) BUN 15 (9-16) mg/dL Creatinine 1.06 (0.5-1.4) mg/dL Estim Creat Clear Calc 88.6 Estimated GFR > 60 Random Glucose 127 H (60-115) mg/dL Lactic Acid 3.1 H* (0.5-2.0) mmol/L Calcium 9.2 (8.4-10.2) mg/dL Total Bilirubin 0.7 (0.0-1.0) mg/dL Direct Bilirubin 0.3 (0.0-0.5) mg/dL AST 21 (5-37) U/L ALT 32 (0-40) U/L Alkaline Phosphatase 86 (39-117) U/L B-Natriuretic Peptide (<100) pg/mL Total Protein 7.1 (6.5-8.0) g/dL Albumin 4.2 (3.5-5.0) g/dL COVID-19 ([facility]) (Negative) COVID-19 Clin Com 09/22/20 09/22/20 09/22/20 Range/Units 07:03 07:03 07:14 WBC (4.8-10.8) X10*3/uL RBC (4.60-5.80) X10*6/uL Hgb (14.0-18.0) g/dl Hct (42-52) % MCV (80-98) fL MCH (27.0-33.0) pg MCHC (31.0-36.0) g/dl RDW (11.0-16.0) % Plt Count (160-400) X10*3/uL MPV (9.4-12.4) fL Immature Gran % (Auto) Neut % (Auto) Lymph % (Auto) [place] % (Auto) Eos % (Auto) Baso % (Auto) Lymph # (Auto) [place] # (Auto) Eos # (Auto) Baso # (Auto) Abs Immat Gran (auto) Absolute Neuts (auto) Absolute Nucleated RBC (0.0-0.012) X10*3/uL Nucleated RBC % (auto) (0.0-0.2) /100WBC Neutrophils % (Manual) (45-73) % Band Neutrophils % (3-5) % Lymphocytes % (Manual) (20-40) % Monocytes % (Manual) (2-11) % Eosinophils % (Manual) (0-4) % Metamyelocytes % % Abs Neuts (Manual) (2.2-7.9) X10*3/uL Lymphocytes # (Manual) (0.6-4.8) X10*3/uL Monocytes # (Manual) (0.0-1.2) X10*3/uL Eosinophils # (Manual) (0.0-0.8) X10*3/UL Metamyelocytes # X10*3/uL Nucleated RBCs (0-0) /100WBC Toxic Vacuolation Platelet Estimate (NORMAL) Large Platelets Plt Morphology Comment RBC Morphology VBG pH 7.39 (7.32-7.43) VBG pCO2 37 mmHg VBG pO2 129 mmHg VBG HCO3 22 (22-26) mmol/L VBG O2 Saturation 99.0 % VBG Base Excess -1.4 mmol/L Sodium (135-145) mmol/L Potassium (3.3-5.1) mmol/L Chloride (96-108) mmol/L Carbon Dioxide (22-29) mmol/L Anion Gap (12-20) BUN (9-16) mg/dL Creatinine (0.5-1.4) mg/dL Estim Creat Clear Calc Estimated GFR Random Glucose (60-115) mg/dL Lactic Acid (0.5-2.0) mmol/L Calcium (8.4-10.2) mg/dL Total Bilirubin (0.0-1.0) mg/dL Direct Bilirubin (0.0-0.5) mg/dL AST (5-37) U/L ALT (0-40) U/L Alkaline Phosphatase (39-117) U/L B-Natriuretic Peptide < 10 (<100) pg/mL Total Protein (6.5-8.0) g/dL Albumin (3.5-5.0) g/dL COVID-19 ([facility]) Negative (Negative) COVID-19 Clin Com See Note ECG Data Attestation: I personally reviewed and interpreted this ECG as follows: ECG interpretation time: 06:52 Interpretation: Rate: 99 Rhythm: NSR [place]: normal Normal P waves. Normal LUCY. Normal QRS complex. ST T wave : normal no GAMALIEL qTC: normal prior studies: no acute ischemia The study has been interpreted contemporaneously by me. . Critical Care Time Critical Care Time Critical Care Time: Yes Total Critical Care Time: 35 Attestation: hour long neb, repeat nebs, review of records I attest to this time spent taking care of the patient Discharge Plan Discharge Clinical Impression: Acidosis, lactic COPD (chronic obstructive pulmonary disease) Qualifiers: COPD type: COPD with acute exacerbation Qualified Code(s): J44.1 - Chronic obstructive pulmonary disease with (acute) exacerbation Patient Disposition: Admitted As Inpatient
[2020-09-22] MEDS: Albuterol Sulfate (0.083%) 2.5 MG/3 ML VIAL.NEB 10 MG INHALE (06:49)
[2020-09-22] MEDS: Magnesium Sulfate/H2O 2 GM/50 ML PIGGYBACK IV (07:09)
[2020-09-22] MEDS: methylPREDNISolone Sod Succ 125 MG/2 ML VIAL IVPUSH (07:09)
[2020-09-22 07:16] LABS: Hematocrit 46.8 % (42-52); Hemoglobin 15.9 g/dl (14.0-18.0); Mean Corpuscular Hemoglobin 31.7 pg (27.0-33.0); Mean Corpuscular Volume 93.4 fL (80-98); Mean Platelet Volume 11.1 fL (9.4-12.4); Platelet Count 203 X10*3/uL (160-400); Red Blood Count 5.01 X10*6/uL (4.60-5.80); Red Cell Distribution Width 13.4 % (11.0-16.0); White Blood Count 14.6 X10*3/uL (4.8-10.8)
[2020-09-22 07:22] LABS: VBG Base Excess -1.4 mmol/L; VBG HCO3 22 mmol/L (22-26); VBG pCO2 37 mmHg; VBG pH 7.39 (7.32-7.43); VBG pO2 129 mmHg
[2020-09-22 07:26] LABS: Venous Blood Gas Refer to POC result
[2020-09-22 07:36] LABS: COVID-19 Test Negative (Negative); IDNOW Serial# 9DD0AD1C
[2020-09-22 07:43] LABS: Band Neutrophils Percent 9 % (3-5); Eosinophils Percent Manual 7 % (0-4); Large Platelet PRESENT; Lymphocytes Absolute Manual 2.2 X10*3/uL (0.6-4.8); Lymphocytes Percent Manual 15 % (20-40); Metamyelocytes Absolute 0.3 X10*3/uL; Metamyelocytes Percent 2 %; Monocytes Percent Manual 7 % (2-11); Neutrophils Absolute Manual 10.1 X10*3/uL (2.2-7.9); Neutrophils Percent Manual 60 % (45-73); Nucleated Red Blood Cells 1 /100WBC (0-0); Platelet Estimate NORMAL (NORMAL); Platelet Morphology Comment NOTED; Toxic Vacuolation PRESENT
[2020-09-22 07:44] LABS: RBC Morphology NORMAL
[2020-09-22 07:48] LABS: Alanine Aminotransferase 32 U/L (0-40); Albumin Level 4.2 g/dL (3.5-5.0); Alkaline Phosphatase 86 U/L (39-117); Anion Gap 15 (12-20); Aspartate Amino Transferase 21 U/L (5-37); Bilirubin Direct 0.3 mg/dL (0.0-0.5); Bilirubin Total 0.7 mg/dL (0.0-1.0); Blood Urea Nitrogen 15 mg/dL (9-16); Calcium 9.2 mg/dL (8.4-10.2); Carbon Dioxide 26 mmol/L (22-29); Chloride 101 mmol/L (96-108); Creatinine Clr Calc Pharmacy 88.6; Estimated Glomerular Filt Rate > 60; Glucose Random 127 mg/dL (60-115); Potassium 3.9 mmol/L (3.3-5.1); Sodium 138 mmol/L (135-145); Total Protein 7.1 g/dL (6.5-8.0)
[2020-09-22 07:51] LABS: B Type Natriuretic Peptide < 10 pg/mL (<100)
[2020-09-22 07:54] LABS: Lactic Acid 3.1 mmol/L (0.5-2.0)
[2020-09-22] MEDS: cefTRIAXone sodium 1 GM in 0.9 % Sodium Chloride 50 ML IV (08:12)
[2020-09-22] MEDS: 0.9 % Sodium Chloride 500 ML IV (08:13)
[2020-09-22 09:12] LABS: Reflex Lactate? Lactic Acid Added
[2020-09-22] MEDS: Doxycycline Hyclate 100 MG in 0.9 % Sodium Chloride 250 ML 166.67 MG IV (09:23)
--- NOTE | 2020-09-22 09:41 | PHA.MEDREC ---
Pharmacy Consult ? Medication Reconciliation Pharmacy has completed the medication reconciliation. PT reports the last dose of prednisone taken was 20mg yesterday.
[2020-09-22] MEDS: Albuterol Sulfate (0.083%) 2.5 MG/3 ML VIAL.NEB INHALE (09:44)
[2020-09-22 10:16] LABS: ~Lactic Acid-LAB USE ONLY 1.4 mmol/L (0.5-2.0)
[2020-09-22] MEDS: Albuterol/Iprat 2.5/0.5MG 3 ML AMPUL.NEB INHALE ×2 (13:42→19:24)
[2020-09-22] MEDS: methylPREDNISolone Sod Succ 40 MG/ML VIAL IVPUSH ×2 (14:26→20:43)
--- NOTE | 2020-09-22 16:40 | P.HPHOSP_ITS ---
History of Present Illness Date of Service: 09/22/20 Chief Complaint: shortness of breath 50 year male smoker with history of asthma, arthitis, recent admission from 09/14 to 09/16 and treated with exacerbation of asthma and discarged home with steroid and bronchodilators and come back today with persistent symptoms of shortness of breath, non productive cough and wheeze and does seem to be getting better with inhalers and steroid at home and therefore came back to be reevaluated. 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 Arthritis Asthma Surgical History H/O kidney removal H/O neck surgery Previous back surgery Social History Household Members: Family Housing: Apartment Do you presently have visiting nurse or other home services: No Alcohol intake: current Alcohol intake frequency: a few times a week Patient Tobacco Use Status: Current everyday Tobacco user Tobacco use type: Cigarette Cigarettes Per Day: 3 Years Smoked: 20 years Smoked in Last 30 Days: Yes e-Cigarette/Vaping Use: Former Use Patient Interested in Nicotine Replacement: No (states he has reduced amount of cigarettes from 2 packs to 2/day) Patient Given Instructions on How to Stop Smoking: No (pt refused) Second Hand Smoke Exposure: No Use of substances other than those prescribed or required for medical reasons: No Currently Displaying Signs/Symptoms of Drug Intoxication Withdrawal: No Any prior treatment program specific to substance use: No Have you been hit, kicked, punched, or otherwise hurt by someone within the past year? If so, by whom?: No Do you feel safe in your current relationship?: Yes Is there a partner from a previous relationship who is making you feel unsafe now?: No Are you made to feel afraid or neglected: No Advance Directives: No Advance Directives Information Provided: No Do you have thoughts of harming others: None Do you have a plan to hurt others: No Plan Recently lost weight without trying: No Nutrition Risks: No Nutritional Risk Poor oral hygiene: No service: No Current occupational status: employed Meds Allergies Allergy/AdvReac Type Severity Reaction Status Date / Time ibuprofen [From MOTRIN] Allergy Unknown KIDNEY Verified 09/14/20 17:02 ISSUES mushroom AdvReac Mild VOMITING Verified 09/14/20 17:02 Active Medications: Current Medications Generic Name Dose Route Start Last Admin Trade Name Freq PRN Reason Stop Dose Admin Acetaminophen 650 mg 09/22/20 12:12 Acetaminophen 325 Mg Tablet PO Q6H PRN Pain, Mild (Pain Scale 1-3) Albuterol/Ipratropium 3 ml 09/22/20 14:00 09/22/20 13:42 Albuterol/Iprat 2.5/0.5mg 3 Ml Ampul.Neb INHALE 3 ml RQ6H WHILE AWAKE JUAN Administration Albuterol/Ipratropium 3 ml 09/22/20 12:17 Albuterol/Iprat 2.5/0.5mg 3 Ml Ampul.Neb INHALE Q2H PRN Shortness of Breath Guaifenesin/Codeine Phosphate 5 ml 09/22/20 16:38 Guaifen/Codeine Sf 200/20/10ml 10 Ml Liquid PO Q6H PRN Cough Methylprednisolone Sodium Succinate 40 mg 09/22/20 14:00 09/22/20 14:26 Methylprednisolone Sod Succ 40 Mg/Ml Vial IVPUSH 40 mg Q8H JUAN Administration Montelukast Sodium 10 mg 09/22/20 21:00 Montelukast Sodium 10 Mg Tablet PO BEDTIME JUAN Nicotine 21 mg 09/22/20 16:38 Nicotine 21 Mg Patch.Td24 TRANSDERMA DAILY PRN Nicotine Cravings Non-Formulary Medication 1 tab 09/22/20 16:38 Acetaminophen PO Q6H PRN Headache Pharmacy Consult 1 each 09/22/20 09:19 Consult Rx Perform Med Rec MISCELLANE ONCE PRN Consult order Pregabalin 150 mg 09/22/20 21:00 Pregabalin 150 Mg Capsule PO BID JUAN Rivaroxaban 10 mg 09/23/20 09:00 Rivaroxaban 10 Mg Tablet PO DAILY JUAN Simethicone 80 mg 09/22/20 17:00 Simethicone 80 Mg Tab.Chew PO QIDWMHS JUAN Sodium Chloride 3 ml 09/22/20 16:00 0.9 % Sodium Chloride Flush 3 Ml Syringe IVFLUSH QSHIFT [facility] Home Medications Medication Instructions Recorded Confirmed Last Taken Type pregabalin 150 mg capsule (Lyrica) 150 mg PO BID 11/26/19 09/22/20 09/21/20 History montelukast 10 mg tablet 1 tab PO BEDTIME 09/14/20 09/22/20 09/21/20 History acetaminophen 500 mg tablet 1 tab PO Q6H PRN 09/22/20 09/22/20 Unknown History ipratropium 20 mcg-albuterol 100 1 - 2 puff PO QID 09/22/20 09/22/20 09/21/20 History mcg/actuation mist for inhalation (Combivent Respimat) nicotine 21 mg/24 hr daily 21 mg TRANSDERMAL DAILY PRN 09/22/20 09/22/20 Unknown History transdermal patch simethicone 80 mg chewable tablet 80 mg PO QIDWMHS 09/22/20 09/22/20 09/21/20 History Physical Exam Vital Signs and Narrative: Vital Signs: Last Vital Signs Temp 97.2 F 09/22/20 15:52 Pulse 88 09/22/20 15:52 Resp 20 09/22/20 15:52 BP 151/90 H 09/22/20 15:52 Pulse Ox 95 09/22/20 15:52 Body Mass Index 34.3 Const: Other: Constitutional Awake and Alert, No apparent distress Neck Supple, No lymphadenopathy Cardiovascular RRR, No M/R/G, S1 S2, No S3 S4, No pedal edema Respiratory tight air movment, no wheeze Gastrointestinal Non tender, Non-distended Skin No rash Neurological Alert & oriented x3 Psychological Appropriate affect Results Labs CBC and Chem 7: 09/22/20 07:03 09/22/20 07:03 Imaging Radiologist's Impressions: Impressions Chest X-Ray 09/22/20 06:37 IMPRESSION: Increased central bronchovascular markings questionable for airways disease or small infiltrates. Differential would include mild pulmonary edema. Clinical correlation recommended. Assessment and Plan (1) Asthma exacerbation: Status: Acute 50 male with asthma readmitted for exacerbation of asthma Plan: IV corticosteroid, bronchodilators by Neb, cough medicine. Eleavated WBC is due to recent steroid. Lactic acidosis d/t bronchidlators not sepsis. Xarelto for DVT prophylaxis Quality Stroke Does the patient have a stroke diagnosis?: No VTE Prior VTE?: No VTE Risk Level:: Medical - moderate - high VTE Device Contraindication: N/A - Device Ordered VTE Drug Contraindication: N/A - Med Ordered
[2020-09-22] MEDS: Acetaminophen 325 MG TABLET 650 MG PO (17:44)
[2020-09-22] MEDS: Simethicone 80 MG TAB.CHEW PO ×2 (17:44→20:43)
[2020-09-22] MEDS: guaiFEN/Codeine SF 200/20/10ML 10 ML LIQUID 5 ML PO (17:45)
[2020-09-22] MEDS: 0.9 % Sodium Chloride Flush 3 ML SYRINGE IVFLUSH ×2 (17:45→20:43)
[2020-09-22] MEDS: Montelukast Sodium 10 MG TABLET PO (20:43)
[2020-09-22] MEDS: Pregabalin 150 MG CAPSULE PO (20:43)
[2020-09-22] MEDS: Melatonin 3 MG TABLET 6 MG PO (22:48)
[2020-09-23] MEDS: guaiFEN/Codeine SF 200/20/10ML 10 ML LIQUID 5 ML PO ×3 (02:05→15:16)
[2020-09-23] MEDS: Acetaminophen 325 MG TABLET 650 MG PO (02:08)
[2020-09-23] MEDS: Albuterol/Iprat 2.5/0.5MG 3 ML AMPUL.NEB INHALE ×2 (02:15→07:45)
[2020-09-23 02:16] VITALS: PULSE 95; O2SAT 94
[2020-09-23] MEDS: methylPREDNISolone Sod Succ 40 MG/ML VIAL IVPUSH (06:13)
[2020-09-23 07:46] VITALS: BP 170/94; PULSE 88; RESP 20; TEMP 36.6; O2SAT 97
[2020-09-23 07:47] VITALS: PULSE 87; O2SAT 98
[2020-09-23] MEDS: Simethicone 80 MG TAB.CHEW PO (08:47)
[2020-09-23] MEDS: 0.9 % Sodium Chloride Flush 3 ML SYRINGE IVFLUSH (08:48)
[2020-09-23] MEDS: Pregabalin 150 MG CAPSULE PO (08:48)
[2020-09-23] MEDS: Rivaroxaban 10 MG TABLET PO (08:48)
--- NOTE | 2020-09-23 09:13 | MHC.CM.PN ---
pt lives in [facility] alone. he reports he is independent in his care. 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 pt denies the need for vna at dc. pt has a s.o. and brother that live in the area and can help him should he need it. pt will transport himself at dc as his car is in the [facility] pkg lot. dc plan is home no svcs. cm to cont. to follow.
--- NOTE | 2020-09-23 14:03 | PM.DS ---
DS: Providers Provider Date of Service: 09/23/20 Date of admission: 09/22/20 12:14 Primary care physician: Unknown Physician DS: Diagnosis Discharge Diagnosis (1) Asthma exacerbation: Status: Acute DS: Medications Discharge Medications Home Medications: Home Medications Medication Instructions Recorded Confirmed pregabalin 150 mg capsule (Lyrica) 150 mg PO BID 11/26/19 09/22/20 montelukast 10 mg tablet 1 tab PO BEDTIME 09/14/20 09/22/20 acetaminophen 500 mg tablet 1 tab PO Q6H PRN 09/22/20 09/22/20 ipratropium 20 mcg-albuterol 100 1 - 2 puff PO QID 09/22/20 09/22/20 mcg/actuation mist for inhalation (Combivent Respimat) nicotine 21 mg/24 hr daily 21 mg TRANSDERMAL DAILY PRN 09/22/20 09/22/20 transdermal patch simethicone 80 mg chewable tablet 80 mg PO QIDWMHS 09/22/20 09/22/20 Previous Rx's Medication Instructions Recorded albuterol sulfate 90 mcg/actuation 2 puff INHALATION Q4-6H PRN 30 04/16/20 aerosol inhaler Days #1 ea codeine 10 mg-guaifenesin 100 mg/5 5 ml PO Q6H PRN #118 ml 09/16/20 mL oral liquid codeine 10 mg-guaifenesin 100 mg/5 5 ml PO Q6H PRN #120 ml 09/23/20 mL oral liquid prednisone 10 mg tablet See Taper PO DAILY #18 tab 09/23/20 DS: Summary Hospital Course Hospital Course: Chief Complaint: shortness of breath 50 year male smoker with history of asthma, arthitis, recent admission from 09/14 to 09/16 and treated with exacerbation of asthma and discarged home with steroid and bronchodilators and come back today? with persistent symptoms of shortness of breath, non productive cough and wheeze and does seem to be getting better with inhalers and steroid at home and therefore came back to be reevaluated. Hospital course: He was hospitalized overnight and treated with IV steroid, bronchodilators by Nebulizers, given robitussin and codein for cough.. His main problem was cough and got much relief with robitussin with codein and able to sleep. Lungs are clear, no hypoxia and therefore will discharge to complete course of prednisone cindy and use inhlaers as needed and to stop smoking. Time Spent with Patient Time attestation: Total time spent providing and/or coordinating discharge services: Discharge coordination time: Greater than 30 minutes Quality: Stroke Does the patient have a stroke diagnosis?: No Physical Exam Vital Signs: Vital Signs: Last Vital Signs Temp 97.8 F 09/23/20 07:46 Pulse 87 09/23/20 07:47 Resp 20 09/23/20 07:46 BP 170/94 H 09/23/20 07:46 Pulse Ox 97 09/23/20 07:46 Body Mass Index 34.3 DS: Data Data Completed and Pending Labs on day of discharge: Preliminary micro results at discharge 09/22/20 07:19 Blood Culture - Preliminary Blood - Arterial No growth after 24 hours. 09/22/20 07:02 Blood Culture - Preliminary Blood - Arterial No growth after 24 hours. Discharge Plan Discharge Anticipated Discharge Date/Time: 09/23/20 13:31 Patient Disposition: Home, Self-Care Discharge Diagnosis: Asthma exacerbation with COPD Referrals: Physician,Unknown [Primary Care Provider] - 1 Week Discharge Medications: New codeine-guaifenesin 10-100 mg/5 mL Liquid 5 ml PO Q6H PRN (Reason: Cough) Qty: 120 RF: 0 prednisone 10 mg tablet See Taper mg PO DAILY Qty: 18 RF: 0 Continued acetaminophen 500 mg tablet 1 tab PO Q6H PRN (Reason: Headache) RF: 0 Combivent Respimat 20-100 mcg/actuation mist 1 - 2 puff PO QID RF: 0 nicotine 21 mg/24 hr patch 24 hour 21 mg transdermal DAILY PRN (Reason: Nicotine Cravings) RF: 0 simethicone 80 mg Tablet,Chewable 80 mg PO QIDWMHS RF: 0 pregabalin [Lyrica] 150 mg Capsule 150 mg PO BID RF: 0 montelukast 10 mg tablet 1 tab PO BEDTIME RF: 0 codeine-guaifenesin 10-100 mg/5 mL Liquid 5 ml PO Q6H PRN (Reason: Cough) Qty: 118 RF: 0 albuterol sulfate 90 mcg/actuation HFA aerosol inhaler 2 puff inhalation Q4-6H PRN (Reason: shortness of breath or wheezing) 30 Days Qty: 1 RF: 6 Discontinued prednisone 10 mg tablet See Taper mg PO DAILY Qty: 20 RF: 0 Discharge Orders: Discharge Order (Routine); Ordered 09/23/20 Ordered By: Woody Cruz Diet: advance to usual diet Activity on Discharge: As tolerated Stand Alone Forms: Patient Portal Discharge page, Work/School Release Care Plan Goals: prevent rehospitalization Health Concerns: asthma/copd, smoking Plan of Treatment: Take prednisone, use inhalers as directed, cough medication for cough and follow up with your Doctor in a week Assessment: See above
== END 2020-09-23 15:46 | disposition home or self-care (01) | DRG 141 ==
LOC: HO.ED 09:19 → HO.EDOVER 12:25 → HO.IMC 13:48
PROVIDERS: Admitting Provider Internal Medicine; Emergency Provider Emergency Medicine; Visit Provider Internal Medicine
DX: J45.901 Unspecified asthma with (acute) exacerbation (principal); E87.2 Acidosis; F17.210 Nicotine dependence, cigarettes, uncomplicated; Z71.6 Tobacco abuse counseling; Z90.5 Acquired absence of kidney; Z20.822 Contact with and (suspected) exposure to COVID-19; M19.90 Unspecified osteoarthritis, unspecified site; Z88.6 Allergy status to analgesic agent; Z79.899 Other long term (current) drug therapy
CPT/HCPCS: 36415; 71045; 80048; 80076; 82803; 83605; 83880; 85007; 85027; 87040; 87635; 93005; 94640; 94644; 99219; 99285; J0696; J2920; J2930; J3475

== ENCOUNTER 2020-10-20 10:48 | Emergency (ER) | payer MEDICAID, SELFPAY ==
--- NOTE | ~2020-10-20 | XR_ITS ---
EXAMINATION: XR CHEST CLINICAL INFORMATION: Productive cough COMPARISON: Chest radiographs 09/22/2020, 09/14/2020 TECHNIQUE: 2 views of the chest were obtained. FINDINGS: Lungs are clear. There is no airspace consolidation or groundglass opacity or effusion. The costophrenic sulci are well-defined. The heart is normal in size. The hilar and mediastinal contours are normal. There is mild dextrocurvature lower thoracic spine. Prior lower anterior cervical fusion again noted. XR/XR chest 2V IMPRESSION: Unremarkable examination.
[2020-10-20 11:38] VITALS: BP 158/96; PULSE 98; RESP 16; TEMP 36.8; O2SAT 96; BMI 34.7
--- NOTE | 2020-10-20 12:12 | ED.GENADULT ---
HPI - General Adult General Chief complaint: General Medical Stated complaint: ASTHMA Time Seen by Provider: 10/20/20 11:53 Source: patient Mode of arrival: ambulatory Limitations: no limitations History of Present Illness HPI narrative: 50 y/o male with history of asthma/COPD overlap with 2 recent admissions to [facility] end or August and early September who presents to the ED from Urgent Care with mild facial swelling x1 week as well as productive cough of yellow phlegm and wheezing that started yesterday. He recently completed a prednisone taper about 2 weeks ago. He has been using his nebulizer treatments every 4-6 hours at home. 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 He has no fever or chills. He is fully vaccinated against COVID-19. MD complaint: facial swelling, wheezing + cough Onset (ago): day(s) Location: face and neck Radiation: non-radiation Severity: mild Relieving factors: medication Associated symptoms: cough and shortness of breath Treatments prior to arrival: none Related Data Home Medications Medication Instructions Recorded Confirmed pregabalin 150 mg capsule (Lyrica) 150 mg PO BID 11/26/19 09/22/20 montelukast 10 mg tablet 1 tab PO BEDTIME 09/14/20 09/22/20 acetaminophen 500 mg tablet 1 tab PO Q6H PRN 09/22/20 09/22/20 ipratropium 20 mcg-albuterol 100 1 - 2 puff PO QID 09/22/20 09/22/20 mcg/actuation mist for inhalation (Combivent Respimat) nicotine 21 mg/24 hr daily 21 mg TRANSDERMAL DAILY PRN 09/22/20 09/22/20 transdermal patch simethicone 80 mg chewable tablet 80 mg PO QIDWMHS 09/22/20 09/22/20 Previous Rx's Medication Instructions Recorded albuterol sulfate 90 mcg/actuation 2 puff INHALATION Q4-6H PRN 30 04/16/20 aerosol inhaler Days #1 ea codeine 10 mg-guaifenesin 100 mg/5 5 ml PO Q6H PRN #118 ml 09/16/20 mL oral liquid codeine 10 mg-guaifenesin 100 mg/5 5 ml PO Q6H PRN #120 ml 09/23/20 mL oral liquid prednisone 10 mg tablet See Taper PO DAILY #18 tab 09/23/20 azithromycin 250 mg tablet See Rx Instructions .ROUTE 10/20/20 (Zithromax Z-Abdifatah) .COMPLEX #6 tab hydrocodone-homatropine 5 mg-1.5 5 ml PO Q4-6H PRN #60 ml 10/20/20 mg/5 mL (5 mL) oral syrup (Hycodan) ipratropium 0.5 mg-albuterol 3 mg 3 ml INHALATION Q6H PRN #15 ml 10/20/20 (2.5 mg base)/3 mL nebulization soln prednisone 10 mg tablets in a dose 10 mg PO PER PKG DIR #48 ea 10/20/20 pack Allergies Allergy/AdvReac Type Severity Reaction Status Date / Time ibuprofen [From MOTRIN] Allergy Unknown KIDNEY Verified 09/14/20 17:02 ISSUES mushroom AdvReac Mild VOMITING Verified 09/14/20 17:02 Review of Systems Constitutional: Constitutional: Denies chills, Denies fever(s) and Denies headache(s) Eyes: Eyes: Denies change in vision, Denies eye discharge and Reports itchy eyes ENT: Denies facial pain, Denies headache(s), Denies lip swelling, Denies nasal congestion, Denies sore throat, Denies throat swelling and Denies tongue swelling Cardiovascular: Cardiovascular: Denies chest pain, Denies chest pain with activity, Reports dyspnea, Reports dyspnea on exertion and Denies orthopnea Respiratory: Respiratory: Reports change in phlegm color, Reports chest congestion, Reports cough, Denies hemoptysis, Denies pain on inspiration, Reports pain with cough, Reports dyspnea, Reports dyspnea on exertion and Reports wheezing Gastrointestinal: Gastrointestinal: Denies abdominal pain, Denies nausea and Denies vomiting Musculoskeletal: Musculoskeletal: Denies back pain and Denies myalgias Integumentary/Breasts: Skin/Breast: Reports swelling, Denies pruritus, Denies erythema and Denies rash Neurologic: Denies headache(s) Endocrine: Endocrine: Denies flushing Hematologic/Lymphatic: Hematologic/Lymphatic: Denies easy bleeding and Denies easy bruising Allergic/Immunologic: Allergic/Immunologic: Reports itchy eyes, Denies lip swelling, Denies throat swelling, Denies tongue swelling and Reports wheezing PMFSH Past Medical History Attestation statement: The following information was validated with the patient. 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 Arthritis Asthma Surgical History H/O kidney removal H/O neck surgery Previous back surgery Social History Social History Household Members: Family Housing: Apartment Do you presently have visiting nurse or other home services: No Alcohol intake: current Alcohol intake frequency: a few times a week Patient Tobacco Use Status: Current everyday Tobacco user Tobacco use type: Cigarette Cigarettes Per Day: 3 Years Smoked: 20 years e-Cigarette/Vaping Use: Former Use Second Hand Smoke Exposure: No service: No Current occupational status: employed Physical Exam Vital Signs: Vital Signs: Last Vital Signs Temp 98.2 F 10/20/20 11:38 Pulse 86 10/20/20 13:13 Resp 16 10/20/20 11:38 BP 158/96 H 10/20/20 11:38 Pulse Ox 96 10/20/20 11:38 Body Mass Index 34.7 Appearance: Alert. Oriented X3. No acute distress. Head/face: normal inspection with subjective reports of mild generalized facial swelling, no edema, no erythema, no rash. Eyes: Pupils equal, round and reactive to light. ENT: Pharynx normal. no swelling of lips, mouth or tongue. Neck: Normal inspection. Neck supple. CVS: Normal heart rate and rhythm. Pulses normal. Respiratory: No respiratory distress. speaking in complete sentences, expiratory wheezes bilaterally, L>R. no rhonchi, no accessory muscle use Abdomen: Soft and nontender. +BS x4 Skin: Skin warm and dry. Normal skin color. Normal skin turgor. No rashes. Extremities: No lower extremity edema. Neuro: Oriented X 3. No motor deficit. No sensory deficit. Const: General: cooperative, healthy appearing, comfortable, no acute distress, alert and awake Nutritional Appearance: average body habitus Orientation/consciousness: patient oriented x3 Limitations: no limitations HENMT: Head: Yes normal to inspection, Yes normocephalic and Yes atraumatic Ears: hearing grossly normal bilaterally, external ears normal and TM's normal bilaterally General nose exam: Normal external nose present and Normal nares present Face and sinus: Yes face symmetric, No erythema, No sinus tenderness, No Facial tenderness on exam of face and sinuses and Yes hudson face (very mild) Mouth: Normal oral and palatal mucosa present, lip normal and tongue normal Teeth and gingiva: dentition normal and gingiva normal Throat: Yes posterior oropharynx normal, Yes tonsils normal and Yes uvula midline Eyes: General: appearance normal, both eyes and all related structures Neck: Neck: Yes normal visual inspection Neuro: General: patient oriented x3 Course Course Course Narrative: 50 y/o male presenting with reports of facial swelling and wheezing, productive cough. He was sent in from Urgent Care where he was noted to be tachycardic to 110. He reports using his home neb prior to going in. He denies chest pain or palpitations. He is breathing with ease but is wheezey on exam. Given new productive cough will check CXR. Will check COVID swab as well. PO prednisone and nebulizer ordered. His facial swelling may be due to ongoing steroid use for the last month however benefits outweigh the risks at this time and patient agrees. Reevaluation(s) Reevaluation #1: CXR clear. COVID negative. Wheezing significantly improved. No hypoxia or resp distress. Will treat for acute bronchitis and refer to Pulm. He has never seen pulm before and sounds like he has never had PFTs. Encouraged to stay away from harsh cleaning chemicals such as bleach as this can exacerbate his asthma. He is stable for d/c home with close outpatient follow up. Medical Decision Making Lab Data Labs: Lab Results 10/20/20 Range/Units 12:35 COVID-19 ([facility]) Negative (Negative) COVID-19 Clin Com See Note Discharge Plan Discharge Clinical Impression: Acute bronchitis Qualifiers: Bronchitis organism: unspecified organism Qualified Code(s): J20.9 - Acute bronchitis, unspecified Patient Disposition: Home, Self-Care Instructions: Acute Bronchitis (ED), Wheezing (ED) Additional Instructions: Your COVID test was negative. Your chest x-ray did not show any pneumonia. Take the prescribed medications as directed. Start the prednisone taper TOMORROW, you were given the 1st dose in the ER today. Use your nebulizer every 4 hours at home for the next 2 days. Follow up with your doctor this week. Follow up with Pulmonology - name and number listed below. If you develop new or worsening symptoms call 911 or come back to the ER for further evaluation. Prescriptions: New hydrocodone-homatropine [Hycodan] 5-1.5 mg/5 mL (5 mL) syrup 5 ml PO Q4-6H PRN (Reason: cough) Qty: 60 RF: 0 prednisone 10 mg tablets,dose pack 10 mg PO PER PKG DIR Qty: 48 RF: 0 azithromycin [Zithromax Z-Abdifatah] 250 mg tablet See Rx Instructions .ROUTE .COMPLEX Qty: 6 RF: 0 ipratropium-albuterol 0.5 mg-3 mg(2.5 mg base)/3 mL solution for nebulization 3 ml inhalation Q6H PRN (Reason: shortness of breath or wheezing) Qty: 15 RF: 0 No Action acetaminophen 500 mg tablet 1 tab PO Q6H PRN (Reason: Headache) RF: 0 Combivent Respimat 20-100 mcg/actuation mist 1 - 2 puff PO QID RF: 0 nicotine 21 mg/24 hr patch 24 hour 21 mg transdermal DAILY PRN (Reason: Nicotine Cravings) RF: 0 simethicone 80 mg Tablet,Chewable 80 mg PO QIDWMHS RF: 0 codeine-guaifenesin 10-100 mg/5 mL Liquid 5 ml PO Q6H PRN (Reason: Cough) Qty: 120 RF: 0 prednisone 10 mg tablet See Taper mg PO DAILY Qty: 18 RF: 0 pregabalin [Lyrica] 150 mg Capsule 150 mg PO BID RF: 0 montelukast 10 mg tablet 1 tab PO BEDTIME RF: 0 codeine-guaifenesin 10-100 mg/5 mL Liquid 5 ml PO Q6H PRN (Reason: Cough) Qty: 118 RF: 0 albuterol sulfate 90 mcg/actuation HFA aerosol inhaler 2 puff inhalation Q4-6H PRN (Reason: shortness of breath or wheezing) 30 Days Qty: 1 RF: 6 Referrals: Flip Wan MD [Physician] - 2 days (asthma/COVID with 2 recent admissions and recurrent exacerbations) Stand Alone Forms: Work/School Release Interventions: ED Discharge Assessment Last Done: 10/20/20 14:14 Discharge Date/Time: 10/20/20 14:15
[2020-10-20] MEDS: predniSONE 10 MG TABLET 50 MG PO (12:40)
[2020-10-20] MEDS: Loratadine 10 MG TABLET PO (12:40)
[2020-10-20 13:13] VITALS: PULSE 86; O2SAT 96
[2020-10-20] MEDS: Albuterol Sulfate (0.083%) 2.5 MG/3 ML VIAL.NEB 5 MG INHALE (13:13)
[2020-10-20 13:14] LABS: COVID-19 Test Negative (Negative); IDNOW Serial# 08D9AD1C
== END 2020-10-20 14:15 | disposition home or self-care (01) ==
PROVIDERS: Physician Assistant; Emergency Provider Emergency Medicine; PCP Family Medicine
DX: J20.9 Acute bronchitis, unspecified (principal); M54.2 Cervicalgia; F17.210 Nicotine dependence, cigarettes, uncomplicated; R05 Cough; Z20.822 Contact with and (suspected) exposure to COVID-19; Z71.6 Tobacco abuse counseling; Z79.899 Other long term (current) drug therapy
CPT/HCPCS: 36415; 71046; 87635; 94640; 99283; 99284

== ENCOUNTER → 2020-10-21 12:50 | Outpatient (BNVA) | payer MEDICAID, SELFPAY | PROVIDERS: PCP Family Medicine; Visit Provider Internal Medicine Pulmonary Disease | DX: J44.9 Chronic obstructive pulmonary disease, unspecified (principal) | CPT/HCPCS: 99212 ==

== ENCOUNTER 2020-10-26 08:00 | Emergency (ER) | payer MEDICAID, SELFPAY ==
[2020-10-26 08:02] VITALS: BP 145/95; PULSE 115; RESP 16; TEMP 36.1; O2SAT 97; BMI 34.7
[2020-10-26 08:11] VITALS: BP 146/107; PULSE 109; RESP 16; TEMP 37.1; O2SAT 95
--- NOTE | 2020-10-26 08:11 | ED.BACK ---
HPI - Back Pain/Injury General Chief Complaint: Back Pain/Injury Stated Complaint: BACK PAIN Time Seen by Provider: 10/26/20 08:11 Source: patient and old records reviewed Mode of arrival: ambulatory Limitations: no limitations History of Present Illness MD elicited complaint: back pain Pertinent past history: prior back pain Onset (ago): day(s) (2) Timing: progressively worsening Severity: severe Similar Symptoms Previously: Yes Quality: sharp, aching and throbbing Location: lumbar spine Radiation: buttocks and left upper leg Exacerbating factors: movement, walking and coughing/sneezing Relieving factors: none Context: unknown Associated symptoms: denies other symptoms Work related injury: No Related Data Home Medications Medication Instructions Recorded Confirmed pregabalin 150 mg capsule (Lyrica) 150 mg PO BID 11/26/19 09/22/20 montelukast 10 mg tablet 1 tab PO BEDTIME 09/14/20 09/22/20 acetaminophen 500 mg tablet 1 tab PO Q6H PRN 09/22/20 09/22/20 ipratropium 20 mcg-albuterol 100 1 - 2 puff PO QID 09/22/20 09/22/20 mcg/actuation mist for inhalation (Combivent Respimat) nicotine 21 mg/24 hr daily 21 mg TRANSDERMAL DAILY PRN 09/22/20 09/22/20 transdermal patch simethicone 80 mg chewable tablet 80 mg PO QIDWMHS 09/22/20 09/22/20 Previous Rx's Medication Instructions Recorded albuterol sulfate 90 mcg/actuation 2 puff INHALATION Q4-6H PRN 30 04/16/20 aerosol inhaler Days #1 ea codeine 10 mg-guaifenesin 100 mg/5 5 ml PO Q6H PRN #118 ml 09/16/20 mL oral liquid codeine 10 mg-guaifenesin 100 mg/5 5 ml PO Q6H PRN #120 ml 09/23/20 mL oral liquid prednisone 10 mg tablet See Taper PO DAILY #18 tab 09/23/20 azithromycin 250 mg tablet See Rx Instructions .ROUTE 10/20/20 (Zithromax Z-Abdifatah) .COMPLEX #6 tab hydrocodone-homatropine 5 mg-1.5 5 ml PO Q4-6H PRN #60 ml 10/20/20 mg/5 mL (5 mL) oral syrup (Hycodan) ipratropium 0.5 mg-albuterol 3 mg 3 ml INHALATION Q6H PRN #15 ml 10/20/20 (2.5 mg base)/3 mL nebulization soln prednisone 10 mg tablets in a dose 10 mg PO PER PKG DIR #48 ea 10/20/20 pack fluticasone 250 mcg-salmeterol 50 1 inh INHALATION BID 30 Days #1 ea 10/21/20 mcg/dose blistr powdr for inhalation (Wixela Inhub) cyclobenzaprine 10 mg tablet 10 mg PO TID PRN #14 tab 10/26/20 lidocaine 4 % topical patch 1 patch TOPICAL DAILY PRN #10 ea 10/26/20 morphine 15 mg immediate release 15 mg PO Q6H PRN 3 Days #8 tab 10/26/20 tablet Allergies Allergy/AdvReac Type Severity Reaction Status Date / Time ibuprofen [From MOTRIN] Allergy Unknown KIDNEY Verified 10/21/20 13:00 ISSUES mushroom AdvReac Mild VOMITING Verified 10/21/20 13:00 Review of Systems Review of Systems: Constitutional : No Weight loss, No Fever, No Chills, ENT/Mouth : No Hearing loss, No Ear Pain, No Nasal Congestion, No Sinus Pain, No Hoarseness, No sore throat, No Rhinorrhea, No Swallowing Difficulty Cardiovascular : No Chest Pain, No SOB Respiratory : No Cough, No Dyspnea Gastrointestinal : No Nausea, No Vomiting, No Diarrhea, No abdominal Pain, No Hematochezia, No Melena Genitourinary : No Dysuria, No Urinary Frequency, No Hematuria, No Urinary Incontinence, Musculoskeletal : positive back pain Skin : No Skin Lesions, No rash Neuro : No Weakness, No Numbness, No Paresthesias, no loss of bowel or bladder incontinence, no saddle anesthesia [facility] Past Medical History Attestation statement: The following information was validated with the patient. 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 Arthritis Asthma Surgical History H/O kidney removal H/O neck surgery Previous back surgery Social History Social History Household Members: Family Housing: Apartment Do you presently have visiting nurse or other home services: No Alcohol intake: current Alcohol intake frequency: a few times a week Patient Tobacco Use Status: Current everyday Tobacco user Tobacco use type: Cigarette Cigarettes Per Day: 3 Years Smoked: 20 years e-Cigarette/Vaping Use: Former Use Second Hand Smoke Exposure: No Advance Directives: Yes Advance Directives Information Provided: Yes Advance Directives on File: No service: No Current occupational status: employed Physical Exam Vital Signs: Vital Signs: Last Vital Signs Temp 97.0 F 10/26/20 08:02 Pulse 115 H 10/26/20 08:02 Resp 16 10/26/20 08:02 BP 145/95 H 10/26/20 08:02 Pulse Ox 97 10/26/20 08:02 Body Mass Index 34.7 Appearance: Alert. Oriented X3. No acute distress. Eyes: Pupils equal, round and reactive to light. ENT: Pharynx normal. Neck: Normal inspection. Neck supple. CVS: Normal heart rate and rhythm. Pulses normal. Respiratory: No respiratory distress. Breath sounds normal. Abdomen: Soft and nontender. Back: ttp along lower lumbar spine and L buttock area - 2+ bilateral patella intact, SILT throughout, 5/5 strength Skin: Skin warm and dry. Normal skin color. Normal skin turgor. Extremities: No lower extremity edema. No calf ttp Neuro: Oriented X 3. No motor deficit. No sensory deficit. MDM - Back Pain/Injury MDM Narrative Medical decision making narrative: 50 yo male with hx of back pain comes in with low back pain and sciatica down L leg - no b/b incontinence, no saddle anesthesia no CE symptoms, no other red flags - will treat for pain and refer to PCP. NV intact Discharge Plan Discharge Clinical Impression: Strain of lumbar region, Sciatica Patient Disposition: Home, Self-Care Instructions: Sciatica (ED), Acute Low Back Pain (ED), Lower Back Exercises (ED) Additional Instructions: return to ED for any worsening symptoms or concerns Prescriptions: New cyclobenzaprine 10 mg tablet 10 mg PO TID PRN (Reason: muscle spasm) Qty: 14 RF: 0 lidocaine 4 % adhesive patch,medicated 1 patch topical DAILY PRN (Reason: pain) Qty: 10 RF: 0 morphine 15 mg tablet 15 mg PO Q6H PRN (Reason: pain) 3 Days Qty: 8 RF: 0 No Action acetaminophen 500 mg tablet 1 tab PO Q6H PRN (Reason: Headache) RF: 0 Combivent Respimat 20-100 mcg/actuation mist 1 - 2 puff PO QID RF: 0 nicotine 21 mg/24 hr patch 24 hour 21 mg transdermal DAILY PRN (Reason: Nicotine Cravings) RF: 0 simethicone 80 mg Tablet,Chewable 80 mg PO QIDWMHS RF: 0 codeine-guaifenesin 10-100 mg/5 mL Liquid 5 ml PO Q6H PRN (Reason: Cough) Qty: 120 RF: 0 prednisone 10 mg tablet See Taper mg PO DAILY Qty: 18 RF: 0 hydrocodone-homatropine [Hycodan] 5-1.5 mg/5 mL (5 mL) syrup 5 ml PO Q4-6H PRN (Reason: cough) Qty: 60 RF: 0 prednisone 10 mg tablets,dose pack 10 mg PO PER PKG DIR Qty: 48 RF: 0 azithromycin [Zithromax Z-Abdifatah] 250 mg tablet See Rx Instructions .ROUTE .COMPLEX Qty: 6 RF: 0 ipratropium-albuterol 0.5 mg-3 mg(2.5 mg base)/3 mL solution for nebulization 3 ml inhalation Q6H PRN (Reason: shortness of breath or wheezing) Qty: 15 RF: 0 pregabalin [Lyrica] 150 mg Capsule 150 mg PO BID RF: 0 montelukast 10 mg tablet 1 tab PO BEDTIME RF: 0 codeine-guaifenesin 10-100 mg/5 mL Liquid 5 ml PO Q6H PRN (Reason: Cough) Qty: 118 RF: 0 fluticasone propion-salmeterol [Wixela Inhub] 250-50 mcg/dose blister with device 1 inh inhalation BID 30 Days Qty: 1 RF: 6 albuterol sulfate 90 mcg/actuation HFA aerosol inhaler 2 puff inhalation Q4-6H PRN (Reason: shortness of breath or wheezing) 30 Days Qty: 1 RF: 6 Referrals: Mirtha Lunsford MD [Primary Care Provider] - 3 days (if not better) Stand Alone Forms: Work/School Release
== END 2020-10-26 08:30 | disposition home or self-care (01) ==
PROVIDERS: Emergency Provider Emergency Medicine; PCP Family Medicine
DX: S39.012A Strain of muscle, fascia and tendon of lower back, initial encounter (principal); M54.42 Lumbago with sciatica, left side; M79.605 Pain in left leg; F17.210 Nicotine dependence, cigarettes, uncomplicated; X58.XXXA Exposure to other specified factors, initial encounter; Y93.9 Activity, unspecified; Y92.9 Unspecified place or not applicable; Y99.9 Unspecified external cause status; Z71.6 Tobacco abuse counseling; Z79.899 Other long term (current) drug therapy
CPT/HCPCS: 99283

== ENCOUNTER → 2020-12-08 10:18 | Outpatient (BNVA) | payer MEDICAID, SELFPAY | PROVIDERS: PCP Family Medicine; Visit Provider Internal Medicine Pulmonary Disease | DX: J44.9 Chronic obstructive pulmonary disease, unspecified (principal); Z91.09 Other allergy status, other than to drugs and biological substances | CPT/HCPCS: 99212 ==

== ENCOUNTER 2021-01-13 07:26 | Outpatient (REF) | payer MEDICAID, SELFPAY | END 2021-01-13 07:27 | disposition home or self-care (01) | LOC: HO.MDS 07:26 | PROVIDERS: PCP Family Medicine; Visit Provider Internal Medicine Pulmonary Disease | DX: J45.51 Severe persistent asthma with (acute) exacerbation (principal) | CPT/HCPCS: 96372; J2357 ==

== ENCOUNTER → 2021-01-19 09:33 | Outpatient (BNVA) | payer MEDICAID, SELFPAY | PROVIDERS: PCP Family Medicine; Visit Provider Internal Medicine Pulmonary Disease | DX: Z91.09 Other allergy status, other than to drugs and biological substances (principal); J44.9 Chronic obstructive pulmonary disease, unspecified | CPT/HCPCS: 99212 ==

== ENCOUNTER 2021-01-29 12:55 | Outpatient (REF) | payer MEDICAID, SELFPAY | END 2021-01-29 12:56 | disposition home or self-care (01) | LOC: HO.MDS 12:55 | PROVIDERS: Visit Provider Internal Medicine Pulmonary Disease | DX: J45.50 Severe persistent asthma, uncomplicated (principal) | CPT/HCPCS: 96372; J2357 ==

== ENCOUNTER 2021-02-16 07:51 | Outpatient (REF) | payer MEDICAID, SELFPAY | END 2021-02-16 07:52 | disposition home or self-care (01) | LOC: HO.MDS 07:51 | PROVIDERS: Visit Provider Internal Medicine Pulmonary Disease | DX: J45.50 Severe persistent asthma, uncomplicated (principal) | CPT/HCPCS: 96372; J2357 ==

== ENCOUNTER 2021-03-02 07:25 | Outpatient (REF) | payer MEDICAID, SELFPAY | END 2021-03-02 07:26 | disposition home or self-care (01) | LOC: HO.MDS 07:25 | PROVIDERS: PCP Family Medicine; Visit Provider Internal Medicine Pulmonary Disease | DX: J45.50 Severe persistent asthma, uncomplicated (principal) | CPT/HCPCS: 96372; J2357 ==

== ENCOUNTER 2021-03-16 07:32 | Outpatient (REF) | payer MEDICAID, SELFPAY | END 2021-03-16 07:33 | disposition home or self-care (01) | LOC: HO.MDS 07:32 | PROVIDERS: PCP Family Medicine; Visit Provider Internal Medicine Pulmonary Disease | DX: J45.50 Severe persistent asthma, uncomplicated (principal) | CPT/HCPCS: 96372; J2357 ==

== ENCOUNTER 2021-03-17 14:56 | Outpatient (REF) | payer MEDICAID, SELFPAY ==
--- NOTE | ~2021-03-17 | XR_ITS ---
EXAMINATION: XR CERVICAL SPINE CLINICAL INFORMATION: Cervicalgia COMPARISON: August 19, 2008 TECHNIQUE: 6 views of the cervical spine were obtained. FINDINGS: Patient is status post anterior discectomy and fusion at the C5-C6 and C6-C7 levels. There appears to be some degree of bony union at the C5-C6 level. There is some smooth mildly bulging bony union anterior aspect C6-C7 level. No abnormal prevertebral soft tissue swelling is seen. No acute fracture is appreciated. Remainder of the disc spaces appear unremarkable. There is no significant change from prior study other than for the anterior discectomy and fusion at C6-C7. XR/XR cervical spine 4V IMPRESSION: Postsurgical change C5-C7 without acute cervical spine abnormality appreciated.
--- NOTE | ~2021-03-17 | XR_ITS ---
EXAMINATION: XR SHOULDER, LEFT CLINICAL INFORMATION: Left shoulder pain. COMPARISON: 03/20/2007. TECHNIQUE: AP external rotation, Grashey, scapular Y, and axillary views of the left shoulder. FINDINGS: There is no evidence of acute fracture or dislocation of the left shoulder. No calcific tendinitis. Glenohumeral joint appears unremarkable. There is degenerative change of the left acromioclavicular joint with narrowing of the joint space and marginal spurring. XR/XR shoulder LT min 2V IMPRESSION: Degenerative change of the left acromioclavicular joint. No significant left shoulder abnormality appreciated.
== END 2021-03-17 14:57 | disposition home or self-care (01) ==
LOC: HO.XRAY 14:56
PROVIDERS: Absent Provider Family Medicine; PCP Family Medicine; Visit Provider Nurse Practitioner Family
DX: M25.512 Pain in left shoulder (principal); M54.2 Cervicalgia
CPT/HCPCS: 72050; 73030

== ENCOUNTER 2021-03-30 07:49 | Outpatient (REF) | payer MEDICAID, SELFPAY | END 2021-03-30 07:50 | disposition home or self-care (01) | LOC: HO.MDS 07:49 | PROVIDERS: PCP Family Medicine; Visit Provider Internal Medicine Pulmonary Disease | DX: J45.50 Severe persistent asthma, uncomplicated (principal) | CPT/HCPCS: 96372; J2357 ==

== ENCOUNTER 2021-04-14 12:02 | Outpatient (REF) | payer MEDICAID, SELFPAY | END 2021-04-14 12:03 | disposition home or self-care (01) | LOC: HO.MDS 12:02 | PROVIDERS: PCP Family Medicine; Visit Provider Internal Medicine Pulmonary Disease | DX: J45.50 Severe persistent asthma, uncomplicated (principal); M10.9 Gout, unspecified; Z90.5 Acquired absence of kidney | CPT/HCPCS: 96372; J2357 ==

== ENCOUNTER 2021-04-25 06:26 | Emergency (ER) | payer MEDICAID, SELFPAY ==
--- NOTE | ~2021-04-25 | XR_ITS ---
EXAMINATION: XR CHEST CLINICAL INFORMATION: Cough. Left lateral chest wall pain. COMPARISON: Most recent chest radiograph dated 10/20/2020. TECHNIQUE: 2 views of the chest were obtained. FINDINGS: No focal airspace consolidation. No pleural effusion or pneumothorax. Stable cardiomediastinal silhouette. Cervical spine stabilization hardware and upper abdominal surgical clips are unchanged. No acute osseous abnormality. XR/XR chest 2V IMPRESSION: No acute cardiopulmonary findings.
[2021-04-25 06:45] VITALS: BP 131/90; PULSE 102; RESP 16; TEMP 36.9; O2SAT 96; BMI 33.9
[2021-04-25 07:13] LABS: COVID-19 Test Negative (Negative)
[2021-04-25 07:15] VITALS: BP 138/89; PULSE 96; RESP 14; TEMP 37.2; O2SAT 97
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
[2021-04-25] MEDS: Albuterol/Iprat 2.5/0.5MG 3 ML AMPUL.NEB INHALE (07:47)
[2021-04-25 07:49] VITALS: PULSE 84; RESP 21; O2SAT 96
== END 2021-04-25 09:18 | disposition home or self-care (01) ==
PROVIDERS: Emergency Provider Emergency Medicine; PCP Family Medicine
DX: R07.89 Other chest pain (principal); J45.909 Unspecified asthma, uncomplicated; Z20.822 Contact with and (suspected) exposure to COVID-19; I10 Essential (primary) hypertension; F17.200 Nicotine dependence, unspecified, uncomplicated
CPT/HCPCS: 71046; 87635; 94640; 99284

== ENCOUNTER 2021-04-27 07:39 | Outpatient (REF) | payer MEDICAID, SELFPAY | END 2021-04-27 07:40 | disposition home or self-care (01) | LOC: HO.MDS 07:39 | PROVIDERS: PCP Family Medicine; Visit Provider Internal Medicine Pulmonary Disease | DX: J45.51 Severe persistent asthma with (acute) exacerbation (principal) | CPT/HCPCS: 96372; J2357 ==

== ENCOUNTER → 2021-05-08 08:56 | Outpatient (BNVA) | payer MEDICAID, SELFPAY | PROVIDERS: PCP Family Medicine; Visit Provider Internal Medicine Endocrinology, Diabetes & Metabolism | DX: D35.01 Benign neoplasm of right adrenal gland (principal) | CPT/HCPCS: 99212 ==

== ENCOUNTER 2021-05-12 07:56 | Outpatient (REF) | payer MEDICAID, SELFPAY | END 2021-05-12 07:57 | disposition home or self-care (01) | LOC: HO.MDS 07:56 | PROVIDERS: PCP Family Medicine; Visit Provider Internal Medicine Pulmonary Disease | DX: J45.50 Severe persistent asthma, uncomplicated (principal) | CPT/HCPCS: 96372; J2357 ==

== ENCOUNTER 2021-05-18 18:52 | Emergency (ER) | payer MEDICAID, SELFPAY ==
[2021-05-18 19:19] VITALS: BP 145/98; PULSE 110; RESP 20; TEMP 36.9; O2SAT 97
== END 2021-05-18 19:52 | disposition left against medical advice (07) ==
PROVIDERS: Emergency Provider Emergency Medicine
DX: J45.909 Unspecified asthma, uncomplicated (principal)

== ENCOUNTER 2021-05-20 00:58 | Emergency (ER) | payer MEDICAID, SELFPAY ==
--- NOTE | ~2021-05-20 | XR_ITS ---
EXAMINATION: XR CHEST CLINICAL INFORMATION: Asthma COMPARISON: 04/25/2021 TECHNIQUE: Frontal view of the chest was obtained. FINDINGS: Low lung volumes and portable technique exaggerate prominence of the bronchovascular markings/interstitium. No parenchymal consolidation. No pleural effusion. No pneumothorax. Cardiomediastinal silhouette and pulmonary vascularity are within normal limits. No acute osseous abnormalities. XR/XR chest 1V IMPRESSION: No acute findings.
[2021-05-20 01:05] VITALS: BP 153/94; PULSE 106; RESP 18; TEMP 36.4; O2SAT 96; BMI 33.9
[2021-05-20 01:39] LABS: COVID-19 Test Negative (Negative); Influenza A Negative (Negative); Influenza B2 Negative (Negative)
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
[2021-05-20] MEDS: Acetaminophen 325 MG TABLET 650 MG PO (02:01)
[2021-05-20] MEDS: predniSONE 20 MG TABLET 60 MG PO (02:01)
[2021-05-20] MEDS: Albuterol Sulfate (0.083%) 2.5 MG/3 ML VIAL.NEB 5 MG INHALE (02:03)
[2021-05-20] MEDS: Albuterol/Iprat 2.5/0.5MG 3 ML AMPUL.NEB INHALE (02:03)
[2021-05-20 02:05] VITALS: PULSE 84; RESP 16; O2SAT 96
[2021-05-20 03:16] VITALS: BP 148/82; PULSE 92; RESP 20; O2SAT 96
== END 2021-05-20 03:32 | disposition home or self-care (01) ==
PROVIDERS: Emergency Provider Emergency Medicine
DX: J45.901 Unspecified asthma with (acute) exacerbation (principal); Z20.822 Contact with and (suspected) exposure to COVID-19; I10 Essential (primary) hypertension; F17.200 Nicotine dependence, unspecified, uncomplicated; Z79.899 Other long term (current) drug therapy; Z72.89 Other problems related to lifestyle; Z90.5 Acquired absence of kidney
CPT/HCPCS: 71045; 87502; 87635; 94640; 94644; 99284

== ENCOUNTER 2021-05-25 07:44 | Outpatient (REF) | payer MEDICAID, SELFPAY | END 2021-05-25 07:45 | disposition home or self-care (01) | LOC: HO.MDS 07:44 | PROVIDERS: Visit Provider Internal Medicine Pulmonary Disease | DX: J45.50 Severe persistent asthma, uncomplicated (principal) | CPT/HCPCS: 96372; J2357 ==

== ENCOUNTER 2021-06-09 07:35 | Outpatient (REF) | payer MEDICAID, SELFPAY | END 2021-06-09 07:36 | disposition home or self-care (01) | LOC: HO.MDS 07:35 | PROVIDERS: Visit Provider Internal Medicine Pulmonary Disease | DX: J45.50 Severe persistent asthma, uncomplicated (principal) | CPT/HCPCS: 96372; J2357 ==

== ENCOUNTER → 2021-06-10 12:40 | Outpatient (BNVA) | payer MEDICAID, SELFPAY | PROVIDERS: PCP Family Medicine; Visit Provider Internal Medicine Pulmonary Disease | DX: J44.9 Chronic obstructive pulmonary disease, unspecified (principal); Z91.09 Other allergy status, other than to drugs and biological substances | CPT/HCPCS: 99212 ==

== ENCOUNTER 2021-06-22 07:51 | Outpatient (REF) | payer MEDICAID, SELFPAY | END 2021-06-22 07:52 | disposition home or self-care (01) | LOC: HO.MDS 07:51 | PROVIDERS: Visit Provider Internal Medicine Pulmonary Disease | DX: J45.50 Severe persistent asthma, uncomplicated (principal) | CPT/HCPCS: 96372; J2357 ==

== ENCOUNTER 2021-07-01 06:31 | Emergency (ER) | payer MEDICAID, SELFPAY ==
--- NOTE | ~2021-07-01 | XR_ITS ---
EXAMINATION: XR CHEST CLINICAL INFORMATION: Cough COMPARISON: Chest x-ray 05/10/2021 TECHNIQUE: Frontal view of the chest was obtained. FINDINGS: Cardiac silhouette is normal in size. The lungs are well aerated. There is no lobar consolidation. No pleural effusion or pneumothorax. Surgical changes of the cervical spine. XR/XR chest 1V IMPRESSION: No acute pulmonary pathology.
[2021-07-01 06:43] VITALS: BP 149/108; PULSE 98; RESP 22; TEMP 37.2; O2SAT 98; BMI 38.7
--- NOTE | 2021-07-01 06:56 | ED.URI ---
HPI - URI/Sore Throat General Chief Complaint: Upper Respiratory Symptoms Stated Complaint: cough, difficulty breathing Time Seen by Provider: 07/01/21 06:56 Source: patient Mode of arrival: ambulatory Limitations: no limitations History of Present Illness HPI Narrative: 51 years old male came in for evaluation of upper respiratory symptoms. Patient with history of smoking cigarette came in with complain of headache, nasal congestion, sore throat, coughing with a white sputum. No sick contacts, patient took COVID vaccination x3, had flu shot. Related Data Home Medications Medication Instructions Recorded Confirmed pregabalin 150 mg capsule (Lyrica) 150 mg PO BID 11/26/19 05/08/21 montelukast 10 mg tablet 1 tab PO BEDTIME 09/14/20 05/08/21 acetaminophen 500 mg tablet 1 tab PO Q6H PRN 09/22/20 05/08/21 ipratropium 20 mcg-albuterol 100 1 - 2 puff PO QID 09/22/20 05/08/21 mcg/actuation mist for inhalation (Combivent Respimat) simethicone 80 mg chewable tablet 80 mg PO QIDWMHS 09/22/20 05/08/21 amlodipine 5 mg tablet 5 mg PO DAILY 05/08/21 05/08/21 Previous Rx's Medication Instructions Recorded hydrocodone-homatropine 5 mg-1.5 5 ml PO Q4-6H PRN #60 ml 10/20/20 mg/5 mL (5 mL) oral syrup (Hycodan) ipratropium 0.5 mg-albuterol 3 mg 3 ml INHALATION Q6H PRN #15 ml 10/20/20 (2.5 mg base)/3 mL nebulization soln cyclobenzaprine 10 mg tablet 10 mg PO TID PRN #14 tab 10/26/20 lidocaine 4 % topical patch 1 patch TOPICAL DAILY PRN #10 ea 10/26/20 morphine 15 mg immediate release 15 mg PO Q6H PRN 3 Days #8 tab 10/26/20 tablet omalizumab 150 mg subcutaneous 225 mg SUBCUT Q2W 28 Days #3 ea 12/11/20 solution (Xolair) benzonatate 200 mg capsule 200 mg PO BID-TID PRN 30 Days #60 01/19/21 cap codeine 10 mg-guaifenesin 100 mg/5 5 ml PO Q6H PRN 30 Days #237 ml 01/20/21 mL oral liquid tramadol 50 mg tablet 50 - 100 mg PO Q4H PRN #20 tab 04/25/21 dexamethasone 1 mg tablet 1 mg PO DAILY #1 tab 05/08/21 albuterol sulfate 90 mcg/actuation 1 inh INHALATION QID PRN #6.7 g 05/20/21 aerosol inhaler fluticasone propionate 115 2 puff INHALATION Q12H 30 Days #1 06/10/21 mcg-salmeterol 21 mcg/actuation ea HFA inhaler (Advair HFA) albuterol sulfate 90 mcg/actuation 1 inh INHALATION QID PRN #6.7 g 07/01/21 aerosol inhaler azithromycin 250 mg tablet See Rx Instructions .ROUTE 07/01/21 (Zithromax Z-Abdifatah) .COMPLEX #6 tab prednisone 20 mg tablet 20 mg PO BID #10 tab 07/01/21 Allergies Allergy/AdvReac Type Severity Reaction Status Date / Time Iodinated Contrast Media Allergy Severe Unknown Verified 07/01/21 06:43 ibuprofen [From MOTRIN] Allergy Unknown KIDNEY Verified 07/01/21 06:43 ISSUES mushroom AdvReac Mild VOMITING Verified 07/01/21 06:43 Review of Systems Review of Systems: All other systems are reviewed and are negative Constitutional: Reports as per HPI and Reports no additional constitutional complaints Eyes: Reports as per HPI and Reports no additional eye complaints Reports system reviewed and no additional complaints, except as documented Cardiovascular: Reports as per HPI and Reports no additional cardiovascular complaints Respiratory: Reports as per HPI and Reports no additional respiratory complaints Gastrointestinal: Reports as per HPI and Reports no additional gastrointestinal complaints Genitourinary: Reports no additional female genitourinary complaints Musculoskeletal: Reports no additional musculoskeletal complaints Skin/Breast: Reports system reviewed and no additional complaints, except as docu Psychiatric: Reports no additional psychiatric complaints Endocrine: Reports no additional endocrine complaints Hematologic/Lymphatic: Reports no additional hematologic/lymphatic complaints Allergic/Immunologic: Reports no additional allergic/immunologic complaints Reports system reviewed and no additional complaints, except as documented and Reports Abnormal speech present [facility] Past Medical History 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 Arthritis Asthma Hypertension Surgical History H/O kidney removal H/O neck surgery History of unilateral nephrectomy Previous back surgery Family History Family History Mother Hypertension Asthma Father Medical history unknown Social History Social History Household Members: Family Housing: Apartment Do you presently have visiting nurse or other home services: No Alcohol intake: current Alcohol intake frequency: a few times a week Patient Tobacco Use Status: Current everyday Tobacco user Tobacco use type: Cigarette Cigarettes Per Day: 3 Years Smoked: 20 years e-Cigarette/Vaping Use: Former Use Second Hand Smoke Exposure: No Advance Directives: No Advance Directives Information Provided: No service: No Current occupational status: employed Physical Exam Vital Signs: Vital Signs: Last Vital Signs Temp 98.2 F 07/01/21 07:12 Pulse 92 07/01/21 07:12 Resp 18 07/01/21 07:12 BP 129/84 07/01/21 07:12 Pulse Ox 94 07/01/21 07:12 BMI result Body Mass Index 38.7 Vital signs have been reviewed as appeared to be correct. Blood pressure normal. Heart rate normal. Respiration rate normal. Temperature normal. Oxygen saturation normal. Appearance: Alert. Oriented X3. No acute distress. Head: Normal external exam. Normocephalic. Atraumatic. No Haynes signs noted. No raccoon eyes noted Eyes: PERRLA. EOMI. Conjunctiva and sclera normal. Eyelids normal. ENT: TM's Normal. Pharynx normal. Uvula midline. Moist mucous membranes. No trismus noted. No drooling noted. No muffled voice noted. Neck: Normal inspection. Neck supple. FROM. No adenopathy. Thyroid Normal. No meningeal signs. No neck mass noted. CVS: Normal heart rate and rhythm. Heart sound normal. No murmurs noted. Pulses normal throughout. Respiratory: No respiratory distress. Painless inspiration. Breath sounds normal. Bilateral diffuse expiratory wheezing with prolonged expiration, Chest nontender. No accessory muscle usage noted or decreased air movement noted. Abdomen: Soft and nontender. Bowel sounds normal in all 4 quadrants. No distention noted. No organomegaly noted. No visible injury noted. Back: No CVA tenderness. Full range of motion noted. Skin: Skin warm and dry. Normal skin color. Normal skin turgor. No rashes/lesions/lacerations noted. Extremities: No lower extremity edema. Extremities exhibit normal range of motion. Extremities nontender. Neuro: Oriented X 3. Cranial nerve exam: II-XII are grossly intact No motor deficit. No sensory deficit. Reflexes normal. Course Course Course Narrative: Assessment and plan. 51-year-old male was history of smoking a cigarette and in the process of quitting smoking. Start the patient on bronchodilator/prednisone/Z-Abdifatah. MDM - URI/Sore Throat Lab Data Attestation: I reviewed the patient's lab results. Labs: Lab Results 07/01/21 07/01/21 Range/Units 06:37 06:37 COVID-19 ([facility]) Negative (Negative) COVID-19 Clin Com See Note Influenza Type A ([facility]) Negative (Negative) Influenza Type B ([facility]) Negative (Negative) Influenza A & B Note See Note Imaging Data Chest x-ray: Attestation: I personally reviewed and interpreted this imaging study as follows: Radiologist's impression: No acute pathology Discharge Plan Discharge Clinical Impression: Bronchitis Patient Disposition: Home, Self-Care Instructions: Acute Bronchitis (ED) Prescriptions: New prednisone 20 mg tablet 20 mg PO BID Qty: 10 0RF albuterol sulfate 90 mcg/actuation HFA aerosol inhaler 1 inh inhalation QID PRN (Reason: shortness of breath or wheezing) Qty: 6.7 0RF azithromycin [Zithromax Z-Abdifatah] 250 mg tablet See Rx Instructions .ROUTE .COMPLEX Qty: 6 0RF Rx Instructions: For 250 mg dose pack: take 500 mg today (day 1), then 250 mg for 4 days (days 2-5) No Action Xolair 150 mg recon soln 225 mg subcut Q2W 28 Days Qty: 3 12RF Rx Instructions: requires multiple injection sites; do not exceed 150 mg per injection site codeine-guaifenesin 10-100 mg/5 mL liquid 5 ml PO Q6H PRN (Reason: allergy symptoms) 30 Days Qty: 237 0RF acetaminophen 500 mg tablet 1 tab PO Q6H PRN (Reason: Headache) 0RF Combivent Respimat 20-100 mcg/actuation mist 1 - 2 puff PO QID 0RF simethicone 80 mg Tablet,Chewable 80 mg PO QIDWMHS 0RF hydrocodone-homatropine [Hycodan] 5-1.5 mg/5 mL (5 mL) syrup 5 ml PO Q4-6H PRN (Reason: cough) Qty: 60 0RF ipratropium-albuterol 0.5 mg-3 mg(2.5 mg base)/3 mL solution for nebulization 3 ml inhalation Q6H PRN (Reason: shortness of breath or wheezing) Qty: 15 0RF pregabalin [Lyrica] 150 mg Capsule 150 mg PO BID 0RF montelukast 10 mg tablet 1 tab PO BEDTIME 0RF cyclobenzaprine 10 mg tablet 10 mg PO TID PRN (Reason: muscle spasm) Qty: 14 0RF lidocaine 4 % adhesive patch,medicated 1 patch topical DAILY PRN (Reason: pain) Qty: 10 0RF Rx Instructions: may leave on for up to 12 hrs morphine 15 mg tablet 15 mg PO Q6H PRN (Reason: pain) 3 Days Qty: 8 0RF tramadol 50 mg tablet 50 - 100 mg PO Q4H PRN (Reason: pain) Qty: 20 0RF albuterol sulfate 90 mcg/actuation HFA aerosol inhaler 1 inh inhalation QID PRN (Reason: shortness of breath or wheezing) Qty: 6.7 0RF benzonatate 200 mg capsule 200 mg PO BID-TID PRN (Reason: cough) 30 Days Qty: 60 1RF amlodipine 5 mg tablet 5 mg PO DAILY 0RF dexamethasone 1 mg tablet 1 mg PO DAILY Qty: 1 0RF Advair HFA 115-21 mcg/actuation HFA aerosol inhaler 2 puff inhalation Q12H 30 Days Qty: 1 6RF Referrals: Mirtha Lunsford MD [Primary Care Provider] -
[2021-07-01 07:04] LABS: IDNOW Serial# 16C4AD1C; Influenza A Negative (Negative); Influenza B2 Negative (Negative)
[2021-07-01 07:05] LABS: COVID-19 Test Negative (Negative)
[2021-07-01 07:12] VITALS: BP 129/84; PULSE 92; RESP 18; TEMP 36.8; O2SAT 94
== END 2021-07-01 09:13 | disposition home or self-care (01) ==
PROVIDERS: Emergency Provider Emergency Medicine; PCP Family Medicine
DX: J40 Bronchitis, not specified as acute or chronic (principal); R05.9 Cough, unspecified; R06.02 Shortness of breath; F17.210 Nicotine dependence, cigarettes, uncomplicated; Z71.6 Tobacco abuse counseling; Z20.822 Contact with and (suspected) exposure to COVID-19; Z79.899 Other long term (current) drug therapy
CPT/HCPCS: 71045; 87502; 87635; 99283

== ENCOUNTER 2021-07-06 08:05 | Outpatient (REF) | payer MEDICAID, SELFPAY | END 2021-07-06 08:06 | disposition home or self-care (01) | LOC: HO.MDS 08:05 | PROVIDERS: Visit Provider Internal Medicine Pulmonary Disease | DX: J45.50 Severe persistent asthma, uncomplicated (principal) | CPT/HCPCS: 96372; J2357 ==

== ENCOUNTER 2021-07-21 07:59 | Outpatient (REF) | payer MEDICAID, SELFPAY | END 2021-07-21 08:00 | disposition home or self-care (01) | LOC: HO.MDS 07:59 | PROVIDERS: Visit Provider Internal Medicine Pulmonary Disease | DX: J45.50 Severe persistent asthma, uncomplicated (principal) | CPT/HCPCS: 96372; J2357 ==

== ENCOUNTER 2021-08-03 07:29 | Outpatient (REF) | payer MEDICAID, SELFPAY | END 2021-08-03 07:30 | disposition home or self-care (01) | LOC: HO.MDS 07:29 | PROVIDERS: Visit Provider Internal Medicine Pulmonary Disease | DX: J45.50 Severe persistent asthma, uncomplicated (principal) | CPT/HCPCS: 96372; J2357 ==

== ENCOUNTER 2021-08-17 07:58 | Outpatient (REF) | payer MEDICAID, SELFPAY | END 2021-08-17 07:59 | disposition home or self-care (01) | LOC: HO.MDS 07:58 | PROVIDERS: Visit Provider Internal Medicine Pulmonary Disease | DX: J45.50 Severe persistent asthma, uncomplicated (principal) | CPT/HCPCS: 96372; J2357 ==

== ENCOUNTER 2021-08-31 00:35 | Inpatient (IN) | payer MEDICAID, SELFPAY ==
[2021-08-31] VITALS (12 sets, daily range): BP systolic 115–154; BP diastolic 77–90; PULSE 94–116; RESP 18–28; TEMP 36.6–37.1; O2SAT 93–98; BMI 33.0
--- NOTE | ~2021-08-31 | XR_ITS ---
EXAMINATION: XR CHEST CLINICAL INFORMATION: Dyspnea COMPARISON: 07/01/2021 TECHNIQUE: Frontal view of the chest was obtained. FINDINGS: Cardiac leads overlie the chest. Cervical fusion hardware. The lungs are well expanded. There is no focal consolidation, edema, or effusion. No pneumothorax. The cardiomediastinal silhouette is within normal limits. No acute osseous abnormality. XR/XR chest 1V IMPRESSION: Clear lungs.
--- NOTE | 2021-08-31 00:48 | ECG_ITS ---
Test Reason : cp Blood Pressure : / mmHG Vent. Rate : 097 BPM Atrial Rate : 097 BPM P-R Int : 144 ms QRS Dur : 090 ms QT Int : 356 ms P-R-T Axes : 075 023 040 degrees QTc Int : 452 ms Normal sinus rhythm Normal ECG When compared with ECG of 22-SEP-2020 06:50, No significant change was found Referred By: Generic ED Physician Electronically Signed By:JULEE AVENDAÑO MD
[2021-08-31] MEDS: Albuterol Sulfate (0.083%) 2.5 MG/3 ML VIAL.NEB 10 MG INHALE (01:09)
[2021-08-31] MEDS: methylPREDNISolone Sod Succ 125 MG/2 ML VIAL 60 MG IVPUSH (01:11)
[2021-08-31] MEDS: Magnesium Sulfate/H2O 2 GM/50 ML PIGGYBACK IV (01:12)
[2021-08-31 01:36] LABS: COVID-19 Test Negative (Negative)
--- NOTE | 2021-08-31 01:47 | ED_ITS ---
HPI - SOB/Dyspnea General Chief Complaint: Dyspnea Stated Complaint: chest pains, coughing Time Seen by Provider: 08/31/21 00:58 History of Present Illness HPI Narrative: Patient is a 51-year-old male with coughing upper respiratory symptoms ongoing for the last 2 days. Positive history of smoking. Wheezing. Patient vaccinated for COVID. Cough nonproductive in nature. Worsen with ambulation. No changes in environment. No fever no chills Related Data Home Medications Medication Instructions Recorded Confirmed pregabalin 150 mg capsule (Lyrica) 150 mg PO BID 11/26/19 05/08/21 montelukast 10 mg tablet 1 tab PO BEDTIME 09/14/20 05/08/21 acetaminophen 500 mg tablet 1 tab PO Q6H PRN Headache 09/22/20 05/08/21 ipratropium 20 mcg-albuterol 100 1 - 2 puff PO QID 09/22/20 05/08/21 mcg/actuation mist for inhalation (Combivent Respimat) simethicone 80 mg chewable tablet 80 mg PO QIDWMHS 09/22/20 05/08/21 amlodipine 5 mg tablet 5 mg PO DAILY 05/08/21 05/08/21 Previous Rx's Medication Instructions Recorded hydrocodone-homatropine 5 mg-1.5 5 ml PO Q4-6H PRN cough #60 mL 10/20/20 mg/5 mL (5 mL) oral syrup (Hycodan) ipratropium 0.5 mg-albuterol 3 mg 3 ml inhalation Q6H PRN shortness 10/20/20 (2.5 mg base)/3 mL nebulization of breath or wheezing #15 mL soln cyclobenzaprine 10 mg tablet 10 mg PO TID PRN muscle spasm #14 10/26/20 tabs lidocaine 4 % topical patch 1 patch topical DAILY PRN pain #10 10/26/20 ea morphine 15 mg immediate release 15 mg PO Q6H PRN pain 3 days #8 10/26/20 tablet tabs omalizumab 150 mg subcutaneous 225 mg subcut Q2W 28 days #3 ea 12/11/20 solution (Xolair) benzonatate 200 mg capsule 200 mg PO BID-TID PRN cough 30 01/19/21 days #60 caps codeine 10 mg-guaifenesin 100 mg/5 5 ml PO Q6H PRN allergy symptoms 01/20/21 mL oral liquid 30 days #237 mL tramadol 50 mg tablet 50 - 100 mg PO Q4H PRN pain #20 04/25/21 tabs dexamethasone 1 mg tablet 1 mg PO DAILY #1 tab 05/08/21 albuterol sulfate 90 mcg/actuation 1 inh inhalation QID PRN shortness 05/20/21 aerosol inhaler of breath or wheezing #6.7 grams fluticasone propionate 115 2 puff inhalation Q12H 30 days #1 06/10/21 mcg-salmeterol 21 mcg/actuation ea HFA inhaler (Advair HFA) albuterol sulfate 90 mcg/actuation 1 inh inhalation QID PRN shortness 07/01/21 aerosol inhaler of breath or wheezing #6.7 grams azithromycin 250 mg tablet See Rx Instructions PO .COMPLEX #6 07/01/21 (Zithromax Z-Abdifatah) tabs prednisone 20 mg tablet 20 mg PO BID #10 tabs 07/01/21 Allergies Allergy/AdvReac Type Severity Reaction Status Date / Time Iodinated Contrast Media Allergy Severe Unknown Verified 07/01/21 06:43 ibuprofen [From MOTRIN] Allergy Unknown KIDNEY Verified 07/01/21 06:43 ISSUES mushroom AdvReac Mild VOMITING Verified 07/01/21 06:43 Review of Systems Review of Systems: Positive coughing upper respiratory symptoms Yes all other systems are reviewed and are negative [facility] Past Medical History Attestation statement: The following information was validated with the patient. 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 Arthritis Asthma Hypertension Surgical History H/O kidney removal H/O neck surgery History of unilateral nephrectomy Previous back surgery Family History Family History Mother Hypertension Asthma Father Medical history unknown Social History Social History Household Members: Family Housing: Apartment Do you presently have visiting nurse or other home services: No Alcohol intake: current Alcohol intake frequency: does not drink Patient Tobacco Use Status: Never used Tobacco Tobacco use type: Cigarette Cigarettes Per Day: 3 Years Smoked: 20 years e-Cigarette/Vaping Use: Former Use Second Hand Smoke Exposure: No Use of substances other than those prescribed or required for medical reasons: No Advance Directives: No service: No Current occupational status: employed Physical Exam Vital Signs: Vital Signs: Last Vital Signs Temp 98.1 F 08/31/21 00:45 Pulse 97 08/31/21 04:46 Resp 20 08/31/21 04:46 BP 125/80 08/31/21 04:46 Pulse Ox 93 08/31/21 04:46 O2 Del Method 08/31/21 04:46 BMI result Body Mass Index 33.0 Appearance: Alert. Oriented X3. No acute distress. Eyes: Pupils equal, round and reactive to light. ENT: Pharynx normal. Neck: Normal inspection. Neck supple. No lymph nodes noted. No crepitus CVS: Normal heart rate and rhythm. Pulses normal. Normal S1 and S2 Respiratory: No respiratory distress. . Positive Wheezing. Moving good air. No rales Abdomen: Soft and nontender. No rigidity. No distention. good BS x4 Skin: Skin warm and dry. Normal skin color. Normal skin turgor. Extremities: No lower extremity edema. Neurovascular intact to all extremities. No Lacerations. No Rash Neuro: Oriented X 3. No motor deficit. No sensory deficit. Moving all extermities. No slurred speech MDM - SOB/Dyspnea MDM Narrative Medical decision making narrative: COVID test was negative. Chest x-ray did not show any focal infiltrate. L long neb given. Steroids given. Magnesium given. Will monitor carefully. Patient's EKG showed a sinus pattern heart rate is 100 NV QRS QT within normal limits there is no acute ST segment elevation noted. Patient given to continuous neb treatments. Continued to be wheezy. Will admit patient for further treatment. Currently in stable condition. Differential Diagnosis Differential diagnosis: Likely acute exacerbation of chronic obstructive airways disease Medical Records Attestation: I reviewed the patient's medical records. Lab Data Attestation: I reviewed the patient's lab results. Result diagrams: 08/31/21 04:45 08/31/21 04:45 Labs: Lab Results 08/31/21 08/31/21 Range/Units 00:50 04:45 WBC 9.0 (4.8-10.8) X10*3/uL RBC 4.75 (4.60-5.80) X10*6/uL Hgb 14.6 (14.0-18.0) g/dl Hct 43.8 (42.0-52.0) % MCV 92.2 (80.0-98.0) fL MCH 30.7 (27.0-33.0) pg MCHC 33.3 (31.0-36.0) g/dl RDW 13.0 (11.0-16.0) % Plt Count 234 (160-400) X10*3/uL MPV 10.8 (9.4-12.4) fL Immature Gran % (Auto) 1.3 H (0.0-0.4) % Neut % (Auto) 87.6 H (45-73) % Lymph % (Auto) 6.7 L (20-40) % [place] % (Auto) 1.8 L (2-11) % Eos % (Auto) 2.0 (0-4) % Baso % (Auto) 0.6 (0-2) % Lymph # (Auto) 0.6 L (1.2-4.9) X10*3/uL [place] # (Auto) 0.2 (0.1-1.2) X10*3/uL Eos # (Auto) 0.2 (0.0-0.4) X10*3/uL Baso # (Auto) 0.1 (0.0-0.2) X10*3/uL Abs Immat Gran (auto) 0.12 H (0.00-0.03) X10*3/uL Absolute Neuts (auto) 7.8 (2.0-8.3) x10*3/uL Absolute Nucleated RBC 0.000 (0.0-0.012) X10*3/uL Nucleated RBC % (auto) 0.0 (0.0-0.2) /100WBC COVID-19 ([facility]) Negative (Negative) COVID-19 Clin Com See Note Discharge Plan Discharge Clinical Impression: Asthma with exacerbation Patient Disposition: Admitted As Inpatient
--- NOTE | 2021-08-31 02:22 | PC.NURSE ---
Pt a&o, pt completed breathing treatment. pt does report some improvement but still has some sob. Provider aware. Will continue to monitor, if no improvement after monitoring for a short time, second respiratory treatment ordered. pt on bedside monitor
[2021-08-31] MEDS: Albuterol Sulfate (0.083%) 2.5 MG/3 ML VIAL.NEB 7.5 MG INHALE (02:59)
[2021-08-31 04:50] LABS: Basophils Absolute Auto 0.1 X10*3/uL (0.0-0.2); Basophils Percent Auto 0.6 % (0-2); Eosinophils Absolute Auto 0.2 X10*3/uL (0.0-0.4); Hematocrit 43.8 % (42.0-52.0); Hemoglobin 14.6 g/dl (14.0-18.0); Imm Gran Abs Auto 0.12 X10*3/uL (0.00-0.03); Imm Gran Pct Auto 1.3 % (0.0-0.4); Lymphocytes Absolute Auto 0.6 X10*3/uL (1.2-4.9); Lymphocytes Percent Auto 6.7 % (20-40); MANUAL DIFF FLAG NO; Mean Corpuscular HGB Conc 33.3 g/dl (31.0-36.0); Mean Corpuscular Hemoglobin 30.7 pg (27.0-33.0); Mean Corpuscular Volume 92.2 fL (80.0-98.0); Mean Platelet Volume 10.8 fL (9.4-12.4); Monocytes Absolute Auto 0.2 X10*3/uL (0.1-1.2); Monocytes Percent Auto 1.8 % (2-11); Neutrophils Absolute Auto 7.8 x10*3/uL (2.0-8.3); Neutrophils Percent Auto 87.6 % (45-73); Platelet Count 234 X10*3/uL (160-400); Red Blood Count 4.75 X10*6/uL (4.60-5.80)
[2021-08-31 05:10] LABS: Anion Gap 14 (12-20); Blood Urea Nitrogen 16 mg/dL (9-16); Calcium 8.9 mg/dL (8.4-10.2); Carbon Dioxide 21 mmol/L (22-29); Chloride 104 mmol/L (96-108); Creatinine Clr Calc Pharmacy 78.6; Estimated Glomerular Filt Rate > 60; Glucose Random 143 mg/dL (60-115); Potassium 4.1 mmol/L (3.3-5.1); Sodium 135 mmol/L (135-145)
--- NOTE | 2021-08-31 05:37 | PM.IMHP ---
History of Present Illness Date of Service: 08/31/21 Chief Complaint: sob 51-year-old male with a past medical history of hypertension, asthma/COPD, arthritis, tobacco dependence presented to the hospital today with a chief complaint of shortness of breath. Patient reports that over the past 3 days he has been having shortness of breath associated with cough and whitish sputum production. Denies any fevers. Mentioned shortness of breath has been gradually worsening with no significant improvement from his home inhalers. Hence decided to come to the ER for further evaluation. Denies any GI symptoms. Review of all other systems is negative except mentioned above ER course: Per ER team patient noted to be diffusely wheezing; given nebulizations and steroids with no significant improvement; hence decided to admit to the hospital for further management. 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 Arthritis Asthma Hypertension Family History Mother Hypertension Asthma Father Medical history unknown Surgical History H/O kidney removal H/O neck surgery History of unilateral nephrectomy Previous back surgery Social History Household Members: Family Housing: Apartment Do you presently have visiting nurse or other home services: No Alcohol intake: current Alcohol intake frequency: does not drink Patient Tobacco Use Status: Never used Tobacco Tobacco use type: Cigarette Cigarettes Per Day: 3 Years Smoked: 20 years e-Cigarette/Vaping Use: Former Use Second Hand Smoke Exposure: No Use of substances other than those prescribed or required for medical reasons: No Advance Directives: No service: No Current occupational status: employed Meds Allergies Allergy/AdvReac Type Severity Reaction Status Date / Time Iodinated Contrast Media Allergy Severe Unknown Verified 07/01/21 06:43 ibuprofen [From MOTRIN] Allergy Unknown KIDNEY Verified 07/01/21 06:43 ISSUES mushroom AdvReac Mild VOMITING Verified 07/01/21 06:43 Active Medications: Current Medications Acetaminophen (Acetaminophen 325 Mg Tablet) 650 mg PO Q6H PRN PRN Reason: Pain, Mild (Pain Scale 1-3) Albuterol/Ipratropium (Albuterol/Iprat 2.5/0.5mg 3 Ml Ampul.Neb) 3 ml INHALE RQ4H WHILE AWAKE [facility] Albuterol/Ipratropium (Albuterol/Iprat 2.5/0.5mg 3 Ml Ampul.Neb) 3 ml INHALE RQ4H PRN PRN Reason: Shortness of Breath/Wheezing Azithromycin (Azithromycin 500 Mg Tablet) 500 mg PO Q24H [facility] Enoxaparin Sodium (Enoxaparin Sodium 40 Mg/0.4 Ml Syringe) 40 mg SUBCUT Q24H [facility] Melatonin (Melatonin 3 Mg Tablet) 6 mg PO BEDTIME PRN PRN Reason: Insomnia Methylprednisolone Sodium Succinate (Methylprednisolone Sod Succ 40 Mg/Ml Vial) 40 mg IVPUSH Q6H [facility] Pharmacy Consult (Consult Rx Perform Med Rec) 1 each MISCELLANE ONCE PRN PRN Reason: Consult order Senna (Sennosides 8.6 Mg Tablet) 17.2 mg PO BEDTIME PRN PRN Reason: Constipation Sodium Chloride (0.9 % Sodium Chloride Flush 3 Ml Syringe) 3 ml IVFLUSH QSHIFT [facility] Home Medications Medication Instructions Recorded Confirmed Last Taken Type pregabalin 150 mg capsule (Lyrica) 150 mg PO BID 11/26/19 05/08/21 09/21/20 History montelukast 10 mg tablet 1 tab PO BEDTIME 09/14/20 05/08/21 09/21/20 History acetaminophen 500 mg tablet 1 tab PO Q6H PRN Headache 09/22/20 05/08/21 Unknown History ipratropium 20 mcg-albuterol 100 1 - 2 puff PO QID 09/22/20 05/08/21 09/21/20 History mcg/actuation mist for inhalation (Combivent Respimat) simethicone 80 mg chewable tablet 80 mg PO QIDWMHS 09/22/20 05/08/21 09/21/20 History amlodipine 5 mg tablet 5 mg PO DAILY 05/08/21 05/08/21 Unknown History Physical Exam Vital Signs and Narrative: Vital Signs: Last Vital Signs Temp 98.1 F 08/31/21 00:45 Pulse 97 08/31/21 04:46 Resp 20 08/31/21 04:46 BP 125/80 08/31/21 04:46 Pulse Ox 93 08/31/21 04:46 O2 Del Method 08/31/21 04:46 BMI result Body Mass Index 33.0 Gen: Appears be in no acute distress HEENT: NCAT, Moist mucosa. Pulmonary: Bilateral expiratory wheezing noted, fair air entry CVS: Normal S1-S2 Abdomen: BS+, Soft, Nontender Extremities: Warm well perfused Neuro: Alert and awake. Grossly nonfocal Results Labs CBC and Chem 7: 08/31/21 04:45 08/31/21 04:45 Labs: Laboratory Results - last 24 hr 08/31/21 08/31/21 08/31/21 00:50 04:45 04:45 MCV 92.2 MCH 30.7 MCHC 33.3 RDW 13.0 Plt Count 234 MPV 10.8 Immature Gran % (Auto) 1.3 H Neut % (Auto) 87.6 H Lymph % (Auto) 6.7 L [place] % (Auto) 1.8 L Eos % (Auto) 2.0 Baso % (Auto) 0.6 Lymph # (Auto) 0.6 L [place] # (Auto) 0.2 Eos # (Auto) 0.2 Baso # (Auto) 0.1 Abs Immat Gran (auto) 0.12 H Absolute Neuts (auto) 7.8 Absolute Nucleated RBC 0.000 Nucleated RBC % (auto) 0.0 Anion Gap 14 Estim Creat Clear Calc 78.6 Estimated GFR > 60 Random Glucose 143 H Calcium 8.9 COVID-19 ([facility]) Negative COVID-19 Clin Com See Note Imaging Radiologist's Impressions: Impressions Chest X-Ray 08/31/21 01:01 IMPRESSION: Clear lungs. Assessment and Plan (1) Asthma-COPD overlap syndrome: Status: Acute Plan 51-year-old male with a past medical history of hypertension, asthma/COPD, arthritis, tobacco dependence presented to the hospital today with a chief complaint of shortness of breath. Noted to be in acute asthma/COPD exacerbation. Admitted for further management. Acute asthma/COPD exacerbation: Continue Solu-Medrol IV q.i.d. Nebulizations standing and p.r.n. Azithromycin Supplemental oxygen p.r.n. Tobacco dependence: Counseled on smoking cessation History of hypertension: Continue home amlodipine DVT prophylaxis: Lovenox Code status: Full code Quality Stroke Does the patient have a stroke diagnosis?: No VTE Prior VTE?: No VTE Risk Level:: Medical - moderate - high VTE Device Contraindication: Treatment Not Indicated VTE Drug Contraindication: N/A - Med Ordered
[2021-08-31] MEDS: Azithromycin 500 MG TABLET PO (05:53)
[2021-08-31] MEDS: methylPREDNISolone Sod Succ 40 MG/ML VIAL IVPUSH ×4 (05:54→22:56)
--- NOTE | 2021-08-31 05:55 | PC.NURSE ---
pt medicated per mar
--- NOTE | 2021-08-31 08:36 | PHA.MEDREC ---
Pharmacy Consult ? Medication Reconciliation Pharmacy has completed the medication reconciliation.
--- NOTE | 2021-08-31 08:36 | PHA.MEDREC ---
Pharmacy Consult ? Medication Reconciliation Pharmacy has completed the medication reconciliation.
--- NOTE | 2021-08-31 09:00 | PM.EVENT ---
Event Note Date of Service: 08/31/21 Event Note: Admitted for asthma exacerbation this morning. Exam: wheezing, very tight.. Continue IV steroid, bronchodilators scheduled and PRN o/w A/P per H and P from today
[2021-08-31] MEDS: Albuterol/Iprat 2.5/0.5MG 3 ML AMPUL.NEB INHALE ×5 (09:15→23:22)
[2021-08-31] MEDS: 0.9 % Sodium Chloride Flush 3 ML SYRINGE IVFLUSH ×3 (10:17→22:56)
[2021-08-31] MEDS: Enoxaparin Sodium 40 MG/0.4 ML SYRINGE SUBCUT (10:19)
[2021-08-31] MEDS: Benzonatate 100 MG CAPSULE PO ×3 (10:26→23:09)
--- NOTE | 2021-08-31 11:56 | MHC.CM.PN ---
met with pt who had no servceis prior to admiison pt will drive himself home he is vax x 4 dc plan home no servceis
--- NOTE | 2021-08-31 12:53 | PC.NURSE ---
patient a&ox3, security monitor applied-nsr, vss, pt lungs have expiratory wheezing, no c/o pain or discomfort, pt states his cough was helped with the tessalon perlabrak, pt medicated per order, will continue to monitor
--- NOTE | 2021-08-31 13:14 | P.CDIC_ITS ---
CDI Concurrent Query Documentation Clarification: PHYSICIAN'S DOCUMENTATION REQUEST Date of Query: 08/31/21 1315 Patient Name: Yuri Dotson Admit Date: 08/31/21 Dear Doctor, Please review the following and provide your response in the progress notes. Clinical Indicators: The diagnosis of asthma was documented in the record on 08/31/21. Additional clinical indicators from the record include: Risk Factors/Clinical Indicators/Treatments Admitted for asthma exacerbation this morning. Exam: wheezing, very tight.. Continue IV steroid, bronchodilators scheduled and PRN Based on the above, please clarify in the Progress Notes further specificity regarding the type and acuity of the asthma: Type: * Mild intermittent - less than 2x/week * Mild persistent - more than 2x/week but not daily * Moderate persistent - daily and may restrict physical activity * Severe persistent - throughout the day with frequent attacks, limiting activities * Exercise induced * Chronic obstructive asthma and indicate if with acute lower respiratory infection * Asthma with underlying COPD and indicate if with acute lower respiratory infection * Other ? please specify * Unable to determine Acuity: * With acute exacerbation * With status asthmaticus * Uncomplicated * Unable to determine Use of terms such as suspected, likely, concern for, or probable (associated with a specific diagnosis that is being evaluated, monitored, or treated as if it exists) are acceptable and can be coded in the inpatient setting, when documented at the time of discharge. Thank you, Misty Hills RN Extension: [phone] Please use your independent medical judgment in providing your response. THIS QUERY IS PART OF THE PERMANENT MEDICAL RECORD
--- NOTE | 2021-08-31 13:14 | MHC.CDI.CONC ---
CDI Concurrent Query Documentation Clarification: PHYSICIAN'S DOCUMENTATION REQUEST Date of Query: 08/31/21 1315 Patient Name: Yuri Dotson Admit Date: 08/31/21 Dear Doctor, Please review the following and provide your response in the progress notes. Clinical Indicators: The diagnosis of asthma was documented in the record on 08/31/21. Additional clinical indicators from the record include: Risk Factors/Clinical Indicators/Treatments Admitted for asthma exacerbation this morning. Exam: wheezing, very tight.. Continue IV steroid, bronchodilators scheduled and PRN Based on the above, please clarify in the Progress Notes further specificity regarding the type and acuity of the asthma: Type: Mild intermittent - less than 2x/week Mild persistent - more than 2x/week but not daily Moderate persistent - daily and may restrict physical activity Severe persistent - throughout the day with frequent attacks, limiting activities Exercise induced Chronic obstructive asthma and indicate if with acute lower respiratory infection Asthma with underlying COPD and indicate if with acute lower respiratory infection Other ? please specify Unable to determine Acuity: With acute exacerbation With status asthmaticus Uncomplicated Unable to determine Use of terms such as suspected, likely, concern for, or probable (associated with a specific diagnosis that is being evaluated, monitored, or treated as if it exists) are acceptable and can be coded in the inpatient setting, when documented at the time of discharge. Thank you, Misty Hills RN Extension: [phone] Please use your independent medical judgment in providing your response. THIS QUERY IS PART OF THE PERMANENT MEDICAL RECORD
[2021-08-31] MEDS: Acetaminophen 325 MG TABLET 650 MG PO ×2 (17:39→22:56)
--- NOTE | 2021-08-31 17:41 | PC.NURSE ---
patient medicated for headache 08/30, pvc monitor intact, sinus tach, vss, will continue to monitor
[2021-08-31] MEDS: Melatonin 3 MG TABLET 6 MG PO (23:09)
[2021-09-01 03:24] VITALS: BP 139/87; PULSE 102; RESP 20; TEMP 36.8; O2SAT 93
[2021-09-01 03:28] VITALS: BP 103/52; PULSE 78; RESP 16; TEMP 36.2; O2SAT 93
[2021-09-01] MEDS: methylPREDNISolone Sod Succ 40 MG/ML VIAL IVPUSH (05:53)
[2021-09-01] MEDS: Azithromycin 500 MG TABLET PO (05:53)
[2021-09-01] MEDS: Albuterol/Iprat 2.5/0.5MG 3 ML AMPUL.NEB INHALE ×2 (06:39→08:49)
[2021-09-01 07:03] LABS: Hematocrit 47.5 % (42.0-52.0); Hemoglobin 15.9 g/dl (14.0-18.0); Mean Corpuscular HGB Conc 33.5 g/dl (31.0-36.0); Mean Corpuscular Hemoglobin 31.1 pg (27.0-33.0); Mean Platelet Volume 11.2 fL (9.4-12.4); Platelet Count 292 X10*3/uL (160-400); Red Blood Count 5.11 X10*6/uL (4.60-5.80); Red Cell Distribution Width 13.1 % (11.0-16.0)
[2021-09-01 07:05] LABS: Anion Gap 19 (12-20); Blood Urea Nitrogen 19 mg/dL (9-16); Calcium 9.7 mg/dL (8.4-10.2); Carbon Dioxide 19 mmol/L (22-29); Chloride 104 mmol/L (96-108); Estimated Glomerular Filt Rate > 60; Glucose Random 141 mg/dL (60-115); Potassium 4.1 mmol/L (3.3-5.1); Sodium 138 mmol/L (135-145)
[2021-09-01 07:45] VITALS: BP 142/84; PULSE 102; RESP 20; TEMP 36.6; O2SAT 95
[2021-09-01 08:21] LABS: Band Neutrophils Percent 7 % (3-5); Lymphocytes Absolute Manual 0.5 X10*3/uL (1.2-4.9); Lymphocytes Percent Manual 2 % (20-40); Metamyelocytes Absolute 0.3 X10*3/uL; Metamyelocytes Percent 1 %; Monocytes Absolute Manual 0.8 X10*3/uL (0.1-1.2); Monocytes Percent Manual 3 % (2-11); Neutrophils Absolute Manual 24.4 X10*3/uL (2.0-8.3); Neutrophils Percent Manual 87 % (45-73); Nucleated Red Blood Cells 1 /100WBC (0-0)
[2021-09-01 08:23] LABS: Platelet Estimate NORMAL (NORMAL); Platelet Morphology Comment NORMAL; RBC Morphology NORMAL
[2021-09-01 08:50] VITALS: PULSE 103; RESP 18; O2SAT 93
--- NOTE | 2021-09-01 09:02 | PM.DS ---
DS: Providers Provider Date of Service: 09/01/21 Date of admission: 08/31/21 05:34 Primary care physician: Unknown Physician DS: Diagnosis Discharge Diagnosis (1) Asthma-COPD overlap syndrome: Status: Acute DS: Summary Hospital Course Hospital Course: [facility] Complaint: sob 51-year-old male with a past medical history of hypertension, asthma/COPD, arthritis, tobacco dependence presented to the hospital today with a chief complaint of shortness of breath. ? Patient reports that over the past 3 days he has been having shortness of breath associated with cough and whitish sputum production.? Denies any fevers. ? Mentioned shortness of breath has been gradually worsening with no significant improvement from his home inhalers.? Hence decided to come to the ER for further evaluation. ? Denies any GI symptoms. ? ?Review of all other systems is negative except mentioned above ? ER course: Per ER team patient noted to be diffusely wheezing; given nebulizations and steroids with no significant improvement; hence decided to admit to the hospital for further management. Hospital course: Patient was admitted overnight and treated with IV Solumedrol, bronchodilators scheduled and PRN and improved by the next day of hospital with resolution of wheezing, no respiratory distress, O2 sat 95% on room air. Has no fever, but note that WBC has gone up to 23 from 9 the prior day. He has the pattern of doing this in past with steroid use and there is no evidence of acute infection, this is reactive from steroid but will repeat next week. Will discharge with an additional 4 days of Prednisone, no smoking advised and to continue use of inhalers. He feels comfortable and ready to go home. Advised to follow up with PCP Time Spent with Patient Time attestation: Total time spent providing and/or coordinating discharge services: Discharge coordination time: Greater than 30 minutes Quality: Safe Use of Opioids Does Pt have an Active Cancer Diagnosis on the Problem List?: No Quality: Stroke Does the patient have a stroke diagnosis?: No Physical Exam Vital Signs: Vital Signs: Last Vital Signs Temp 97.9 F 09/01/21 07:45 Pulse 103 H 09/01/21 08:50 Resp 18 09/01/21 08:50 BP 142/84 H 09/01/21 07:45 Pulse Ox 95 09/01/21 07:45 O2 Del Method 09/01/21 07:45 O2 Flow Rate 2 09/01/21 03:28 BMI result Body Mass Index 33.0 Const: Other: General: AO X 3, no acute distress Resp: CTA bilateral CVS: S1,S2,RRR GI: +BS, NT, no distention Skin: No rash Neuro: motor grossly intact Psych: appropriate affect DS: Data Data Completed and Pending Labs on day of discharge: Laboratory Results - last 24 hr 09/01/21 09/01/21 06:19 06:19 WBC 26.0 H RBC 5.11 Hgb 15.9 Hct 47.5 MCV 93.0 MCH 31.1 MCHC 33.5 RDW 13.1 Plt Count 292 MPV 11.2 Immature Gran % (Auto) Cancelled Neut % (Auto) Cancelled Lymph % (Auto) Cancelled Wilkes % (Auto) Cancelled Eos % (Auto) Cancelled Baso % (Auto) Cancelled Lymph # (Auto) Cancelled Wilkes # (Auto) Cancelled Eos # (Auto) Cancelled Baso # (Auto) Cancelled Abs Immat Gran (auto) Cancelled Absolute Neuts (auto) Cancelled Absolute Nucleated RBC 0.000 Nucleated RBC % (auto) 0.0 Neutrophils % (Manual) 87 H Band Neutrophils % 7 H Lymphocytes % (Manual) 2 L Monocytes % (Manual) 3 Metamyelocytes % 1 Abs Neuts (Manual) 24.4 H Lymphocytes # (Manual) 0.5 L Monocytes # (Manual) 0.8 Metamyelocytes # 0.3 Nucleated RBCs 1 H Platelet Estimate NORMAL Plt Morphology Comment NORMAL RBC Morphology NORMAL Sodium 138 Potassium 4.1 Chloride 104 Carbon Dioxide 19 L Anion Gap 19 BUN 19 H Creatinine 1.11 Estim Creat Clear Calc 82.0 Estimated GFR > 60 Random Glucose 141 H Calcium 9.7 D Discharge Plan Discharge Anticipated Discharge Date/Time: 09/01/21 08:55 Patient Disposition: Home, Self-Care Discharge Diagnosis: Asthma exacerbation Referrals: Physician,Unknown J [Primary Care Provider] - 1 Week Discharge Medications: New prednisone 20 mg tablet 20 mg PO DAILY Qty: 8 0RF Continued Xolair 150 mg recon soln 225 mg subcut Q2W 28 Days Qty: 3 12RF Rx Instructions: requires multiple injection sites; do not exceed 150 mg per injection site acetaminophen 500 mg tablet 1 tab PO Q6H PRN (Reason: Headache) Combivent Respimat 20-100 mcg/actuation mist 1 - 2 puff PO QID ipratropium-albuterol 0.5 mg-3 mg(2.5 mg base)/3 mL solution for nebulization 3 ml inhalation Q6H PRN (Reason: shortness of breath or wheezing) Qty: 15 0RF pregabalin [Lyrica] 150 mg Capsule 150 mg PO BID montelukast 10 mg tablet 1 tab PO BEDTIME cyclobenzaprine 10 mg tablet 10 mg PO TID PRN (Reason: muscle spasm) Qty: 14 0RF albuterol sulfate 90 mcg/actuation HFA aerosol inhaler 1 inh inhalation QID PRN (Reason: shortness of breath or wheezing) Qty: 6.7 0RF amlodipine 10 mg tablet 1 tab PO DAILY loratadine 10 mg tablet 1 tab PO DAILY Combivent Respimat 20-100 mcg/actuation mist 1 puff inhalation QID PRN (Reason: Shortness Of Breath) Advair HFA 115-21 mcg/actuation HFA aerosol inhaler 2 puff inhalation Q12H 30 Days Qty: 1 6RF Discharge Orders: Discharge Order (Routine); Ordered 09/01/21 Ordered By: Woody Cruz Diet: Advance to usual diet Activity on Discharge: As tolerated Stand Alone Forms: Patient Portal Discharge page Other Ambulatory Orders: Complete Blood Count no Diff (Routine) Timeframe: [id number] Facility: [facility] - Location: Laboratory Ordered By: Woody Cruz Care Plan Goals: Full recovery from asthma exacerbation Health Concerns: Asthma, COPD Plan of Treatment: take Prednisone as recommended, no smoking and follow up with your Doctor in a week Use inhalers as directed Check lab (CBC) next week Assessment: As above Discharge Date/Time: 09/01/21 09:21
[2021-09-01] MEDS: Enoxaparin Sodium 40 MG/0.4 ML SYRINGE SUBCUT (09:03)
[2021-09-01] MEDS: Benzonatate 100 MG CAPSULE PO (09:05)
--- NOTE | 2021-09-01 09:11 | MHC.CM.PN ---
pt dcd home no skilled servceis ordered by
[2021-09-01 09:42] LABS: SLIDE REVIEW VERIFIED
== END 2021-09-01 09:21 | disposition home or self-care (01) | DRG 140 ==
LOC: HO.ED 04:13 → HO.EDOVER 05:47 → HO.IMC 18:40
PROVIDERS: Admitting Provider Hospitalist; Emergency Provider Emergency Medicine Emergency Medical Services; PCP Family Medicine; Visit Provider Internal Medicine
DX: J44.1 Chronic obstructive pulmonary disease with (acute) exacerbation (principal); J45.901 Unspecified asthma with (acute) exacerbation; D72.829 Elevated white blood cell count, unspecified; F17.210 Nicotine dependence, cigarettes, uncomplicated; I10 Essential (primary) hypertension; Z71.6 Tobacco abuse counseling; Z20.822 Contact with and (suspected) exposure to COVID-19; Z90.5 Acquired absence of kidney; Z91.041 Radiographic dye allergy status; Z88.6 Allergy status to analgesic agent; Z79.51 Long term (current) use of inhaled steroids; Z79.52 Long term (current) use of systemic steroids; Z79.899 Other long term (current) drug therapy
CPT/HCPCS: 36415; 71045; 80048; 85007; 85025; 85027; 87635; 93005; 94640; 94644; 96365; 96366; 96375; 99219; 99285; J1650; J2920; J2930; J3475

== ENCOUNTER 2021-09-09 08:02 | Outpatient (REF) | payer MEDICAID, SELFPAY | END 2021-09-09 08:03 | disposition home or self-care (01) | LOC: HO.MDS 08:02 | PROVIDERS: Visit Provider Internal Medicine Pulmonary Disease | DX: J45.50 Severe persistent asthma, uncomplicated (principal) | CPT/HCPCS: 96372; J2357 ==

== ENCOUNTER 2021-09-28 07:31 | Outpatient (REF) | payer MEDICAID, SELFPAY | END 2021-09-28 07:32 | disposition home or self-care (01) | LOC: HO.MDS 07:31 | PROVIDERS: Visit Provider Internal Medicine Pulmonary Disease | DX: J45.50 Severe persistent asthma, uncomplicated (principal) | CPT/HCPCS: 36415; 71046; 85027; 96372; J2357 ==

== ENCOUNTER 2021-09-28 09:45 | Outpatient (REF) | payer MEDICAID, SELFPAY ==
--- NOTE | ~2021-09-28 | XR_ITS ---
EXAMINATION: XR CHEST CLINICAL INFORMATION: Asthma COMPARISON: Previous chest x-rays most recent August 2021 TECHNIQUE: 2 views of the chest were obtained. FINDINGS: The cardiac and mediastinal contours are stable. There is retrosternal linear scarring or subsegmental atelectasis similar to previous exams. The lungs are otherwise clear. There is no pleural effusion or pneumothorax. There are postsurgical changes to the lower cervical spine. There are degenerative changes of the thoracic spine. XR/XR chest 2V IMPRESSION: No evidence for acute disease in chest.
[2021-09-28 10:43] LABS: Hematocrit 45.7 % (42.0-52.0); Hemoglobin 15.5 g/dl (14.0-18.0); Mean Corpuscular HGB Conc 33.9 g/dl (31.0-36.0); Mean Corpuscular Hemoglobin 31.1 pg (27.0-33.0); Mean Corpuscular Volume 91.8 fL (80.0-98.0); Mean Platelet Volume 11.2 fL (9.4-12.4); Platelet Count 289 X10*3/uL (160-400); Red Blood Count 4.98 X10*6/uL (4.60-5.80); Red Cell Distribution Width 12.8 % (11.0-16.0); White Blood Count 8.2 X10*3/uL (4.8-10.8)
== END 2021-09-28 09:46 | disposition home or self-care (01) ==
LOC: HO.XRAY 09:45
PROVIDERS: Absent Provider Internal Medicine; PCP Family Medicine; Visit Provider Internal Medicine Endocrinology, Diabetes & Metabolism
DX: J45.21 Mild intermittent asthma with (acute) exacerbation (principal); D72.829 Elevated white blood cell count, unspecified; R60.0 Localized edema
CPT/HCPCS: 36415; 71046; 85027

== ENCOUNTER 2021-10-12 08:02 | Outpatient (REF) | payer MEDICAID, SELFPAY | END 2021-10-12 08:03 | disposition home or self-care (01) | LOC: HO.MDS 08:02 | PROVIDERS: Visit Provider Internal Medicine Pulmonary Disease | DX: J45.50 Severe persistent asthma, uncomplicated (principal) | CPT/HCPCS: 96372; J2357 ==

== ENCOUNTER 2021-10-27 07:50 | Outpatient (REF) | payer MEDICAID, SELFPAY | END 2021-10-27 07:51 | disposition home or self-care (01) | LOC: HO.MDS 07:50 | PROVIDERS: Visit Provider Internal Medicine Pulmonary Disease | DX: J45.50 Severe persistent asthma, uncomplicated (principal) | CPT/HCPCS: 96372; J2357 ==

== ENCOUNTER 2021-11-09 07:47 | Outpatient (REF) | payer MEDICAID, SELFPAY | END 2021-11-09 07:48 | disposition home or self-care (01) | LOC: HO.MDS 07:47 | PROVIDERS: Visit Provider Internal Medicine Pulmonary Disease | DX: J45.50 Severe persistent asthma, uncomplicated (principal) | CPT/HCPCS: 96372; J2357 ==

== ENCOUNTER 2021-11-21 07:37 | Emergency (ER) | payer MEDICAID, SELFPAY ==
--- NOTE | ~2021-11-21 | XR_ITS ---
EXAMINATION: XR CHEST CLINICAL INFORMATION: Shortness of breath. COMPARISON: 09/28/2021 chest radiographs. TECHNIQUE: Frontal view of the chest was obtained. FINDINGS: Mild linear markings are seen at the left lung base. The right lung is clear. The heart and mediastinal structures are unremarkable. XR/XR chest 1V IMPRESSION: Mild linear markings at the left lung base are nonspecific, but represents interval increase in the previous study. This could represent mild atelectasis or developing infiltrate.
[2021-11-21 07:46] VITALS: BP 142/85; PULSE 114; RESP 22; TEMP 37; O2SAT 93; BMI 33.5
--- NOTE | 2021-11-21 08:08 | ECG_ITS ---
Test Reason : SOB Blood Pressure : / mmHG Vent. Rate : 108 BPM Atrial Rate : 108 BPM P-R Int : 134 ms QRS Dur : 086 ms QT Int : 330 ms P-R-T Axes : 066 021 039 degrees QTc Int : 442 ms Sinus tachycardia Otherwise normal ECG When compared with ECG of 31-AUG-2021 01:43, No significant change was found Referred By: Sola Ortiz Electronically Signed By:DAVID FINCH
--- NOTE | 2021-11-21 08:09 | ED.ASTHMA ---
HPI - Asthma General Chief Complaint: Asthma Stated Complaint: asthma cough Time Seen by Provider: 11/21/21 08:02 Source: patient Mode of arrival: ambulatory Limitations: no limitations History of Present Illness HPI Narrative: 51 yo male with history of asthma, active smoker, sciatica, gout, hx pyelonephritis, environmental allergies who presents to the ER for evaluation of SOB, wheezing and cough that started last night. He reports at home his had some cough and shortness of breath last week but got over a pretty quickly. She did not have COVID. He reports he used his nebulizer machine twice at home last night but ran out of his medications. He states he had a hard time sleeping because of his shortness of breath, wheezing and coughing. He has had chills but no fevers. He is vaccinated for COVID. He denies any chest pain but he admits to chest discomfort only when he coughs. He is dyspneic on exertion. He denies any lower extremity swelling or edema. He was [place] [facility] [place] asthma exacerbation. MD complaint: shortness of breath Onset (ago): day(s) (1) Severity: similar to prior Context: recent URI and smoke exposure Associated symptoms: productive cough Asthma History: adult onset, history of frequent attacks and history of prior ED visit Treatments Prior to Arrival: inhaled bronchodilator Related Data Current Asthma Therapy: none Home Medications Medication Instructions Recorded Confirmed pregabalin 150 mg capsule (Lyrica) 150 mg PO BID 11/26/19 08/31/21 montelukast 10 mg tablet 1 tab PO BEDTIME 09/14/20 08/31/21 acetaminophen 500 mg tablet 1 tab PO Q6H PRN Headache 09/22/20 08/31/21 ipratropium 20 mcg-albuterol 100 1 - 2 puff PO QID 09/22/20 08/31/21 mcg/actuation mist for inhalation (Combivent Respimat) amlodipine 10 mg tablet 1 tab PO DAILY 08/31/21 08/31/21 ipratropium 20 mcg-albuterol 100 1 puff inhalation QID PRN 08/31/21 08/31/21 mcg/actuation mist for inhalation Shortness Of Breath (Combivent Respimat) loratadine 10 mg tablet 1 tab PO DAILY 07/11/22 07/11/22 Previous Rx's Medication Instructions Recorded ipratropium 0.5 mg-albuterol 3 mg 3 ml inhalation Q6H PRN shortness 10/20/20 (2.5 mg base)/3 mL nebulization of breath or wheezing #15 mL soln cyclobenzaprine 10 mg tablet 10 mg PO TID PRN muscle spasm #14 10/26/20 tabs omalizumab 150 mg subcutaneous 225 mg subcut Q2W 28 days #3 ea 12/11/20 solution (Xolair) albuterol sulfate 90 mcg/actuation 1 inh inhalation QID PRN shortness 05/20/21 aerosol inhaler of breath or wheezing #6.7 grams fluticasone propionate 115 2 puff inhalation Q12H 30 days #1 06/10/21 mcg-salmeterol 21 mcg/actuation ea HFA inhaler (Advair HFA) prednisone 20 mg tablet 20 mg PO DAILY #8 tabs 09/01/21 albuterol sulfate 1.25 mg/3 mL 1.25 mg (3 mL) inhalation QID PRN 11/21/21 solution for nebulization shortness of breath or wheezing #75 mL azithromycin 250 mg tablet See Rx Instructions PO .COMPLEX #6 11/21/21 (Zithromax Z-Abdifatah) tabs cefpodoxime 200 mg tablet 200 mg PO BID #10 tabs 11/21/21 prednisone 20 mg tablet 40 mg PO DAILY #14 tabs 11/21/21 Allergies Allergy/AdvReac Type Severity Reaction Status Date / Time Iodinated Contrast Media Allergy Severe Unknown Verified 07/01/21 06:43 ibuprofen [From MOTRIN] Allergy Unknown KIDNEY Verified 07/01/21 06:43 ISSUES mushroom AdvReac Mild VOMITING Verified 07/01/21 06:43 Review of Systems Review of Systems: Constitutional: No Fever, No Chills ENT/Mouth: + sore throat, No Rhinorrhea, No Swallowing Difficulty Cardiovascular: No Chest Pain, + SOB, No Orthopnea, No Edema Respiratory: + Cough, + Sputum, + Wheezing, + dyspnea Gastrointestinal: No Nausea, No Vomiting, No Diarrhea, No abdominal Pain Genitourinary: No Dysuria, No Urinary Frequency, No Hematuria Musculoskeletal: No joint pain, No Myalgias Skin: No Skin Lesions, No rash Neuro: No Weakness, No Numbness, No Dizziness, No Headache Psych: No Anxiety/Panic, No Depression Heme/Lymph: No Bruising, No Lymphadenopathy Endocrine: No Polyuria, No Polydipsia PMFSH Past Medical History 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 Arthritis Asthma Hypertension Surgical History H/O kidney removal H/O neck surgery History of unilateral nephrectomy Previous back surgery Family History Family History Mother Hypertension Asthma Father Medical history unknown Social History Social History Household Members: None Housing: House Do you presently have visiting nurse or other home services: No Alcohol intake: current Alcohol intake frequency: does not drink Patient Tobacco Use Status: Current everyday Tobacco user Tobacco use type: Cigarette Cigarettes Per Day: 4 Years Smoked: 20 years e-Cigarette/Vaping Use: Former Use Second Hand Smoke Exposure: No Advance Directives: No Advance Directives Information Provided: No service: No Current occupational status: employed Physical Exam Vital Signs: Vital Signs: Last Vital Signs Temp 98.4 F 11/21/21 08:54 Pulse 93 11/21/21 09:49 Resp 20 11/21/21 09:49 BP 139/84 11/21/21 08:54 Pulse Ox 98 11/21/21 08:54 O2 Del Method 11/21/21 08:54 BMI result Body Mass Index 33.5 Appearance: Alert. Oriented X3. No acute distress. Eyes: Pupils equal, round and reactive to light. ENT: Pharynx normal. Neck: Normal inspection. Neck supple. CVS: Normal heart rate and rhythm. Pulses normal. Respiratory: Mild respiratory distress with RR low 20s, mild increased WOB, diffuse inspiratory and expiratory wheezes throughout with prolonged expiratory phase. Abdomen: Soft and nontender. +BS x4 Skin: Skin warm and dry. Normal skin color. Normal skin turgor. No rashes. Extremities: No lower extremity edema. Neuro: Oriented X 3. No motor deficit. No sensory deficit. Nonfocal Course Course Course Narrative: 51 yo male with history of asthma, COPD overlap syndrome who was recently admitted to each for asthma exacerbation over the summer who presents to the ER for evaluation of cough, wheezing, shortness of breath that started last night in the setting of being around his with recent URI. On arrival to the ER he is tachycardic and mildly tachypneic. He has diffuse inspiratory and expiratory wheezes with prolonged expiratory phase. He is able to speak in complete sentences. His oxygen saturations are 98%. Will check chest x-ray and lab workup. Will check EKG. Will give him an hour long nebulizer 10 mg albuerol treatment, 125 mg IV solumedrol, 2g Mg++ and reassess. Reevaluation(s) Reevaluation #1: Patient aeration has improved although he does have some ongoing wheezing. Will repeat his nebulizer. He is not tachycardic or tremulous. He reports some improvement with the breathing treatment and would like another. Reevaluation #2: Chest x-ray showing possible left base developing infiltrate versus atelectasis. He has no leukocytosis. After a total of 20 mg of albuterol patient's wheezing has improved. There is some mild persistent wheezing but he is feeling much better than when he 1st arrived. Patient would like to be discharged home with refills of his nebulizer treatments, steroids and antibiotics rather than be admitted to the hospital at this time. We discussed that if he fails outpatient management he will require admission to the hospital and understands to come back if he has worsening symptoms. At this time comfortable with [place] home. He will follow-up with Dr. Wan, his sensor specialist and do his best to stop smoking. Strict return precautions discussed. Comfortable with [facility] - Asthma Medical Records Attestation: I reviewed the patient's medical records. Lab Data Attestation: I reviewed the patient's lab results. Result diagrams: 11/21/21 08:41 11/21/21 08:41 Labs: Lab Results 11/21/21 11/21/21 11/21/21 Range/Units 08:26 08:26 08:41 WBC 8.1 (4.8-10.8) X10*3/uL RBC 5.39 (4.60-5.80) X10*6/uL Hgb 16.5 (14.0-18.0) g/dl Hct 49.4 (42.0-52.0) % MCV 91.7 (80.0-98.0) fL MCH 30.6 (27.0-33.0) pg MCHC 33.4 (31.0-36.0) g/dl RDW 12.7 (11.0-16.0) % Plt Count 204 D (160-400) X10*3/uL MPV 11.0 (9.4-12.4) fL Immature Gran % (Auto) 1.4 H (0.0-0.4) % Neut % (Auto) 62.8 (45-73) % Lymph % (Auto) 14.8 L (20-40) % [place] % (Auto) 14.0 H (2-11) % Eos % (Auto) 6.3 H (0-4) % Baso % (Auto) 0.7 (0-2) % Lymph # (Auto) 1.2 (1.2-4.9) X10*3/uL [place] # (Auto) 1.1 (0.1-1.2) X10*3/uL Eos # (Auto) 0.5 H (0.0-0.4) X10*3/uL Baso # (Auto) 0.1 (0.0-0.2) X10*3/uL Abs Immat Gran (auto) 0.11 H (0.00-0.03) X10*3/uL Absolute Neuts (auto) 5.1 (2.0-8.3) x10*3/uL Absolute Nucleated RBC 0.000 (0.0-0.012) X10*3/uL Nucleated RBC % (auto) 0.0 (0.0-0.2) /100WBC Sodium (135-145) mmol/L Potassium (3.3-5.1) mmol/L Chloride (96-108) mmol/L Carbon Dioxide (22-29) mmol/L Anion Gap (12-20) BUN (9-16) mg/dL Creatinine (0.5-1.4) mg/dL Estim Creat Clear Calc Estimated GFR Random Glucose (60-115) mg/dL Calcium (8.4-10.2) mg/dL Magnesium (1.6-2.6) mg/dL Total Bilirubin (0.0-1.0) mg/dL Direct Bilirubin (0.0-0.5) mg/dL AST (5-37) U/L ALT (0-40) U/L Alkaline Phosphatase (39-117) U/L B-Natriuretic Peptide (<100) pg/mL Total Protein (6.5-8.0) g/dL Albumin (3.5-5.0) g/dL Procalcitonin ng/mL Urine Color Urine Appearance Urine pH (5.0-9.0) Ur Specific [place] (1.005-1.025) Urine Protein (Neg-Trace) mg/dL Urine Glucose (UA) (Negative) mg/dL Urine Ketones (Negative) mg/dL Urine Blood (Negative) Urine Nitrite (Negative) Ur Leukocyte Esterase (Negative) COVID-19 (WESLY) Negative (Negative) COVID-19 Clin Com See Note Influenza Type A (CONRADO) Negative (Negative) Influenza Type B (CONRADO) Negative (Negative) Influenza A & B Note See Note 11/21/21 11/21/21 11/21/21 Range/Units 08:41 08:41 08:41 WBC (4.8-10.8) X10*3/uL RBC (4.60-5.80) X10*6/uL Hgb (14.0-18.0) g/dl Hct (42.0-52.0) % MCV (80.0-98.0) fL MCH (27.0-33.0) pg MCHC (31.0-36.0) g/dl RDW (11.0-16.0) % Plt Count (160-400) X10*3/uL MPV (9.4-12.4) fL Immature Gran % (Auto) (0.0-0.4) % Neut % (Auto) (45-73) % Lymph % (Auto) (20-40) % [place] % (Auto) (2-11) % Eos % (Auto) (0-4) % Baso % (Auto) (0-2) % Lymph # (Auto) (1.2-4.9) X10*3/uL [place] # (Auto) (0.1-1.2) X10*3/uL Eos # (Auto) (0.0-0.4) X10*3/uL Baso # (Auto) (0.0-0.2) X10*3/uL Abs Immat Gran (auto) (0.00-0.03) X10*3/uL Absolute Neuts (auto) (2.0-8.3) x10*3/uL Absolute Nucleated RBC (0.0-0.012) X10*3/uL Nucleated RBC % (auto) (0.0-0.2) /100WBC Sodium 140 (135-145) mmol/L Potassium 4.4 (3.3-5.1) mmol/L Chloride 106 (96-108) mmol/L Carbon Dioxide 19 L (22-29) mmol/L Anion Gap 19 (12-20) BUN 15 (9-16) mg/dL Creatinine 1.12 (0.5-1.4) mg/dL Estim Creat Clear Calc 82.0 Estimated GFR > 60 Random Glucose 106 (60-115) mg/dL Calcium 9.4 (8.4-10.2) mg/dL Magnesium 2.2 (1.6-2.6) mg/dL Total Bilirubin 0.5 (0.0-1.0) mg/dL Direct Bilirubin 0.2 (0.0-0.5) mg/dL AST 20 (5-37) U/L ALT 23 (0-40) U/L Alkaline Phosphatase 137 H D (39-117) U/L B-Natriuretic Peptide < 10 (<100) pg/mL Total Protein 7.7 (6.5-8.0) g/dL Albumin 4.5 (3.5-5.0) g/dL Procalcitonin 0.08 ng/mL Urine Color Urine Appearance Urine pH (5.0-9.0) Ur Specific [place] (1.005-1.025) Urine Protein (Neg-Trace) mg/dL Urine Glucose (UA) (Negative) mg/dL Urine Ketones (Negative) mg/dL Urine Blood (Negative) Urine Nitrite (Negative) Ur Leukocyte Esterase (Negative) COVID-19 (WESLY) (Negative) COVID-19 Clin Com Influenza Type A (CONRADO) (Negative) Influenza Type B (CONRADO) (Negative) Influenza A & B Note 11/21/21 Range/Units 10:25 WBC (4.8-10.8) X10*3/uL RBC (4.60-5.80) X10*6/uL Hgb (14.0-18.0) g/dl Hct (42.0-52.0) % MCV (80.0-98.0) fL MCH (27.0-33.0) pg MCHC (31.0-36.0) g/dl RDW (11.0-16.0) % Plt Count (160-400) X10*3/uL MPV (9.4-12.4) fL Immature Gran % (Auto) (0.0-0.4) % Neut % (Auto) (45-73) % Lymph % (Auto) (20-40) % [place] % (Auto) (2-11) % Eos % (Auto) (0-4) % Baso % (Auto) (0-2) % Lymph # (Auto) (1.2-4.9) X10*3/uL [place] # (Auto) (0.1-1.2) X10*3/uL Eos # (Auto) (0.0-0.4) X10*3/uL Baso # (Auto) (0.0-0.2) X10*3/uL Abs Immat Gran (auto) (0.00-0.03) X10*3/uL Absolute Neuts (auto) (2.0-8.3) x10*3/uL Absolute Nucleated RBC (0.0-0.012) X10*3/uL Nucleated RBC % (auto) (0.0-0.2) /100WBC Sodium (135-145) mmol/L Potassium (3.3-5.1) mmol/L Chloride (96-108) mmol/L Carbon Dioxide (22-29) mmol/L Anion Gap (12-20) BUN (9-16) mg/dL Creatinine (0.5-1.4) mg/dL Estim Creat Clear Calc Estimated GFR Random Glucose (60-115) mg/dL Calcium (8.4-10.2) mg/dL Magnesium (1.6-2.6) mg/dL Total Bilirubin (0.0-1.0) mg/dL Direct Bilirubin (0.0-0.5) mg/dL AST (5-37) U/L ALT (0-40) U/L Alkaline Phosphatase (39-117) U/L B-Natriuretic Peptide (<100) pg/mL Total Protein (6.5-8.0) g/dL Albumin (3.5-5.0) g/dL Procalcitonin ng/mL Urine Color Yellow Urine Appearance Clear Urine pH 6.5 (5.0-9.0) Ur Specific [place] 1.020 (1.005-1.025) Urine Protein Negative (Neg-Trace) mg/dL Urine Glucose (UA) Negative (Negative) mg/dL Urine Ketones Negative (Negative) mg/dL Urine Blood Negative (Negative) Urine Nitrite Negative (Negative) Ur Leukocyte Esterase Negative (Negative) COVID-19 (WESLY) (Negative) COVID-19 Clin Com Influenza Type A (CONRADO) (Negative) Influenza Type B (CONRADO) (Negative) Influenza A & B Note ECG Data Attestation: I personally reviewed and interpreted this ECG as follows: ECG interpretation date: 11/21/21 ECG interpretation time: 09:31 Prior ECG tracings: available for review Interpretation: sinus tachycardia, HR 108, normal CT interval, normal QTc, no ST segment elevations or depressions Critical Care Time Critical Care Time Critical Care Time: Yes Total Critical Care Time: 41 Attestation: I have personally provided critical care time exclusive of time spent on separately billable procedures. Time includes review of lab data, radiology results, frequent bedside reassessments and monitoring for potential decompensation. Intervention performed as documented. Discharge Plan Discharge Clinical Impression: Acute asthmatic bronchitis Patient Disposition: Home, Self-Care Instructions: Asthma (ED), Acute Bronchitis (ED) Additional Instructions: Your chest x-ray showed a possible developing pneumonia at the left lower lung, take the prescribed antibiotics for this. Use the prescribed albuterol treatments every 4 hours while awake where not feeling well. Take the prescribed steroids as directed. Recommend following up with your sensor specialist next week. STOP SMOKING If you have any new or worsening symptoms call 911 or come back to the hospital right away for further evaluation Prescriptions: New albuterol sulfate 1.25 mg/3 mL solution for nebulization 1.25 mg inhalation QID PRN (Reason: shortness of breath or wheezing) Qty: 75 0RF prednisone 20 mg tablet 40 mg PO DAILY Qty: 14 0RF azithromycin [Zithromax Z-Abdifatah] 250 mg tablet See Rx Instructions .ROUTE .COMPLEX Qty: 6 0RF Rx Instructions: take 500 mg today (day 1), then 250 mg for 4 days (days 2-5) cefpodoxime 200 mg tablet 200 mg PO BID Qty: 10 0RF Rx Instructions: must administer with a meal/food No Action Xolair 150 mg recon soln 225 mg subcut Q2W 28 Days Qty: 3 12RF Rx Instructions: requires multiple injection sites; do not exceed 150 mg per injection site acetaminophen 500 mg tablet 1 tab PO Q6H PRN (Reason: Headache) Combivent Respimat 20-100 mcg/actuation mist 1 - 2 puff PO QID ipratropium-albuterol 0.5 mg-3 mg(2.5 mg base)/3 mL solution for nebulization 3 ml inhalation Q6H PRN (Reason: shortness of breath or wheezing) Qty: 15 0RF pregabalin [Lyrica] 150 mg Capsule 150 mg PO BID montelukast 10 mg tablet 1 tab PO BEDTIME cyclobenzaprine 10 mg tablet 10 mg PO TID PRN (Reason: muscle spasm) Qty: 14 0RF albuterol sulfate 90 mcg/actuation HFA aerosol inhaler 1 inh inhalation QID PRN (Reason: shortness of breath or wheezing) Qty: 6.7 0RF amlodipine 10 mg tablet 1 tab PO DAILY loratadine 10 mg tablet 1 tab PO DAILY Combivent Respimat 20-100 mcg/actuation mist 1 puff inhalation QID PRN (Reason: Shortness Of Breath) prednisone 20 mg tablet 20 mg PO DAILY Qty: 8 0RF Advair HFA 115-21 mcg/actuation HFA aerosol inhaler 2 puff inhalation Q12H 30 Days Qty: 1 6RF Referrals: Mirtha Lunsford MD [Primary Care Provider] - Flip Wan MD [Physician] - Interventions: ED Discharge Assessment Last Done: 11/21/21 10:48 Discharge Date/Time: 11/21/21 10:48
[2021-11-21] MEDS: Albuterol Sulfate 7.5 MG, Albuterol Sulfate (0.083%) 2.5 MG 10 MG INHALE (08:17)
--- OUTSIDE RECORDS SUMMARY | 2021-11-21 08:17 | XMS_ITS | Continuity of Care Document ---
:1970 Author Organization [facility] Address Unavailable , Care Team Providers Name Role Phone Mirtha Lunsford MD Primary Care Physician [phone] Encounter [facility] [place] Date(s): 04/16/21 - 07/16/21 [facility] Attending Physician: Yair Kearney MD Admitting Physician: Yair Kearney MD Referring Physician: Mirtha Lunsford MD Allergies, Adverse Reactions, Alerts Substance Reaction Severity Status Other Food Allergy n/v Persistent Severe Active mushrooms Motrin avoids due to having single kidney Active Immunizations Given and Recorded Vaccine Date Status Refusal Reason pneumococcal 23-valent vaccine1 06/25/14 Given 1Early/Late Reason: Wan to Standard Admin Times Medications Acetaminophen = 500 mg, 0 Refills, Maintenance, 06/23/18 9:02:30 EDT Start Date: 06/23/18 Status: OrderedAlbuterol 0.083% Inhalation Solution 2.5 mg, Inhalation, Every 4 hours, PRN, Maintenance, 06/25/14 13:24:17 EDT Start Date: 06/25/14 Status: OrderedamLODIPine 5 mg oral tablet 5 mg, 1, tablet, By Mouth, Daily, Refills 0, Maintenance, 04/27/21 14:53:00 EST, Partial fill upon patient request if the prescription is for a schedule II opioid drug. Start Date: 04/27/21 Status: Orderedanxiety and depression pills anxiety and depression pills, Refills 0, Maintenance, 04/27/21 15:00:00 EST, Supply Start Date: 04/27/21 Status: OrderedCombivent Respimat 20 mcg-100 mcg/inh inhalation aerosol 1 puffs, Inhalation, 4 times a day, PRN Wheezing/Shortness of Breath, INHALE 1 PUFF 4 TIMES A DAY MAY TAKE ADDITIONAL PUFFS NEEDED NOT TO EXCEED 6 PUFFS IN 24 HOURS Start Date: 12/28/17 Status: OrderedInjections for breathing every two weeks Injections for breathing every two weeks, Refills 0, Maintenance, 04/27/21 14:54:00 EST, Supply Start Date: 04/27/21 Status: OrderedLyrica 150 mg oral capsule 1 capsule = 150 mg, By Mouth, 2 times a day, 0 Refills, Maintenance, 02/25/16 11:55:59 EST, Capsule Start Date: 02/25/16 Status: OrderedXopenex HFA 45 mcg/inh inhalation aerosol 2 puffs, Inhalation, 2 times a day, 0 Refills, Maintenance, 06/25/14 13:25:14 EDT, Aerosol Start Date: 06/25/14 Status: Ordered Problem List Condition Effective Dates Status Health Status Informant Asthma flare(Confirmed) Active Sacroiliac joint Active dysfunction(Confirmed) Social History Social History Type Response Smoking Status 5-9 cigarettes (between 1/4 to 1/2 pack)/day in last 30 days entered on: 12/28/17 Sex
--- OUTSIDE RECORDS SUMMARY | 2021-11-21 08:17 | XMS_ITS | Continuity of Care Document ---
:1970 Author Organization [facility] Address [address] [place] [id number]- Care Team Providers Name Role Phone Mirtha Lunsford MD Primary Care Physician [phone] [place] [facility] [place] [facility] [id number] Date(s): 01/14/20 - 02/13/20 [facility] [address] [place] [id number] Attending Physician: Dodie Venegas Admitting Physician: Dodie Venegas Referring Physician: Dodie Venegas Referring Physician: Sherwin Jacob Allergies, Adverse Reactions, Alerts Substance Reaction Severity [...] 06/25/14 13:24:17 EDT Start Date: 06/25/14 Status: OrderedCombivent Respimat 20 mcg-100 mcg/inh inhalation aerosol 1 puffs, Inhalation, 4 times a day, PRN Wheezing/Shortness of Breath, INHALE 1 PUFF 4 TIMES A DAY MAY TAKE ADDITIONAL PUFFS NEEDED NOT TO EXCEED 6 PUFFS IN 24 HOURS Start Date: 12/28/17 Status: OrderedLyrica 150 mg oral capsule 1 capsule = 150 mg, By Mouth, 2 times a day, 0 Refills, Maintenance, 02/25/16 11:55:59 EST, Capsule Start Date: 02/25/16 Status: OrderedXopenex HFA 45 mcg/inh inhalation aerosol 2 puffs, Inhalation, 2 times a day, 0 Refills, Maintenance, 06/25/14 13:25:14 EDT, Aerosol Start Date: 06/25/14 Status: Ordered Problem List Condition Effective Dates Status Health Status Informant Sacroiliac joint Active dysfunction(Confirmed) Social History Social History Type Response Smoking Status 5-9 cigarettes (between 1/4 to 1/2 pack)/day in last 30 days entered on: 12/28/17 Sex
--- OUTSIDE RECORDS SUMMARY | 2021-11-21 08:17 | XMS_ITS | Continuity of Care Document ---
:1970 Author Organization [facility] Address [address] [place] [phone]- Care Team Providers Name Role Phone Mirtha Lunsford MD Primary Care Physician [place] [facility] [place] [id number] Date(s): 04/11/19 - 04/21/19 [facility] [address] [place] [id number]- [facility] Attending Physician: Dodie Venegas Admitting Physician: Dodie Venegas Referring Physician: Dodie Venegas Referring Physician: Sherwin Jacob Allergies, Adverse Reactions, Alerts Substance Reaction Severity Status Motrin avoids due to having single kidney Active Other Food Allergy n/v Persistent Severe Active mushrooms Immunizations Given and Recorded Vaccine Date Status [...] EDT, Aerosol Start Date: 06/25/14 Status: Ordered Social History Social History Type Response Smoking Status 5-9 cigarettes (between 1/4 to 1/2 pack)/day in last 30 days entered on: 12/28/17 Sex
--- OUTSIDE RECORDS SUMMARY | 2021-11-21 08:17 | XMS_ITS | Continuity of Care Document ---
:1970 Author Organization [facility] Address [address] [place] [phone]- Care Team Providers Name Role Phone Mirtha Lunsford MD Primary Care Physician [phone] Encounter [facility] [place] Date(s): 08/05/21 - 09/04/21 [facility] [address] [place] [id number] Attending Physician: Dodie Venegas Admitting [...]
--- OUTSIDE RECORDS SUMMARY | 2021-11-21 08:17 | XMS_ITS | Continuity of Care Document ---
:1970 Author Organization [facility] Address [address] [place] [id number]- Care Team Providers Name Role Phone Mirtha Lunsford MD Primary Care Physician [phone] [place] [facility] [place] 04[place]21 - 05/28/21 [facility] [address] [place] [id number]- Allergies, Adverse Reactions, Alerts Substance Reaction Severity [...]
--- OUTSIDE RECORDS SUMMARY | 2021-11-21 08:17 | XMS_ITS | Continuity of Care Document ---
:1970 Author Organization [facility] Address [address] [place] [phone]- Care Team Providers Name Role Phone Mirtha Lunsford MD Primary Care Physician [phone] Encounter [facility] [place] R [id number] Date(s): 10/23/19 - 11/22/19 [facility] [address] [place] [id number]- [facility] Allergies, Adverse Reactions, Alerts Substance Reaction Severity [...]
--- OUTSIDE RECORDS SUMMARY | 2021-11-21 08:17 | XMS_ITS | Continuity of Care Document ---
:1970 Author Organization [facility] Address [address] [place] [phone]- Care Team Providers Name Role Phone Mirtha Lunsford MD Primary Care Physician [phone] [place] [facility] [place](s): 09/29/20 - 10/29/20 [facility] [address] [place] [id number] Attending Physician: Dodie Venegas Admitting Physician: Dodie [...] 06/25/14 13:24:17 EDT Start Date: 06/25/14 Status: Orderedbenzonatate 100 mg oral capsule 0 Refills, Maintenance, 06/06/20 12:32:00 EDT, Partial fill upon patient request if the prescriptionis for a schedule II opioid drug. Start Date: 06/06/20 Status: OrderedCombivent Respimat 20 mcg-100 mcg/inh inhalation [...]
--- OUTSIDE RECORDS SUMMARY | 2021-11-21 08:17 | XMS_ITS | Continuity of Care Document ---
:1970 Author Organization [facility] Address Unavailable , Care Team Providers Name Role Phone Mirtha Lunsford MD Primary Care Physician [place] [facility] [place] 05/10/21 [facility] Allergies, Adverse Reactions, Alerts Substance Reaction Severity [...]
--- OUTSIDE RECORDS SUMMARY | 2021-11-21 08:17 | XMS_ITS | Continuity of Care Document ---
:1970 Author Organization [facility] Address [address] [place] [address]- Care Team Providers Name Role Phone Mirtha Lunsford MD Primary Care Physician [phone] [place] [facility] [place]s): 01/29/19 - 03/09/19 [facility] [address] [place] [address]- [facility] Attending Physician: Hemant Torres MD, V Admitting Physician: Hemant Torres MD, V Allergies, Adverse Reactions, Alerts Substance Reaction Severity [...]
--- OUTSIDE RECORDS SUMMARY | 2021-11-21 08:17 | XMS_ITS | Continuity of Care Document ---
:1970 Author Organization [facility] Address [address] [place] [address]- Care Team Providers Name Role Phone Mirtha Lunsford MD Primary Care Physician Encounter [facility] [place] Date(s): 06/06/20 - 08/21/20 [facility] [address] [place] [id number] Attending Physician: Hemant Torres MD, V Admitting [...]
--- OUTSIDE RECORDS SUMMARY | 2021-11-21 08:17 | XMS_ITS | Continuity of Care Document ---
:1970 Author Organization [facility] Address [address] [place] [address]- Care Team Providers Name Role Phone SaltvilleMirtha beth MD Primary Care Physician [phone] Encounter [facility] [place] Date(s): 09/05/19 - 10/05/19 [facility] [address] [place] [address]- [facility] Allergies, Adverse Reactions, Alerts Substance Reaction Severity [...]
--- OUTSIDE RECORDS SUMMARY | 2021-11-21 08:17 | XMS_ITS | Continuity of Care Document ---
:1970 Author Organization [facility]rology Address Unavailable , Care Team Providers Name Role Phone Mirtha Lunsford MD Primary Care Physician [place] [facility] [place] 07/21/21 - 08/20/21 [facility] Attending Physician: Dodie Venegas Admitting Physician: Dodie Venegas Referring Physician: Dodie Venegas Allergies, Adverse Reactions, Alerts Substance Reaction Severity [...]
--- OUTSIDE RECORDS SUMMARY | 2021-11-21 08:17 | XMS_ITS | Continuity of Care Document ---
:1970 Author Organization [facility] Address Unavailable , Care Team Providers Name Role Phone Mirtha Lunsford MD Primary Care Physician Encounter [facility] [place] Date(s): 04/10/21 - 05/16/21 [facility] Attending Physician: Yair Kearney MD [...]
--- OUTSIDE RECORDS SUMMARY | 2021-11-21 08:17 | XMS_ITS | Continuity of Care Document ---
:1970 Author Organization [facility] Address [address] [place] [address]- Care Team Providers Name Role Phone Mirtha Lunsford MD Primary Care Physician [phone] [id number] - 10/29/20 [facility] [address] [place] [id number] Attending Physician: Hemant Torres MD, V Admitting [...]
--- OUTSIDE RECORDS SUMMARY | 2021-11-21 08:17 | XMS_ITS | Continuity of Care Document ---
:1970 Author Organization [facility] Address [address] [place] [address]- Care Team Providers Name Role Phone Mirtha Lunsford MD Primary Care Physician [phone] Encounter [facility] [place] Date(s): 02/23/21 - 03/25/21 [facility] [address] [place] [id number] Allergies, Adverse Reactions, Alerts Substance Reaction Severity [...] Maintenance, 02/25/16 11:55:59 EST, Capsule Start Date: 1/4/17 Status: OrderedXopenex HFA 45 mcg/inh inhalation aerosol [...]
--- OUTSIDE RECORDS SUMMARY | 2021-11-21 08:17 | XMS_ITS | Continuity of Care Document ---
:1970 Author Organization [facility] Address Unavailable , Care Team Providers Name Role Phone Mirtha Lunsford MD Primary Care Physician [place] [facility] [place] 04/16/21 - 05/16/21 [facility] Allergies, Adverse Reactions, Alerts Substance [...]
--- OUTSIDE RECORDS SUMMARY | 2021-11-21 08:17 | XMS_ITS | Continuity of Care Document ---
:1970 Author Organization [facility] Address [address] [place] [address]- Care Team Providers Name Role Phone Mirtha Lunsford MD Primary Care Physician [id number] - 09/04/21 [facility] [address] [place] [address] Attending Physician: Jeremias Shea MD Admitting Physician: Jeremias Shea MD Allergies, Adverse Reactions, Alerts Substance Reaction [...]
--- OUTSIDE RECORDS SUMMARY | 2021-11-21 08:17 | XMS_ITS | Continuity of Care Document ---
:1970 Author Organization [facility] Address [address] [place] [address]- Care Team Providers Name Role Phone Mirtha Lunsford MD Primary Care Physician [phone] [place] [facility] [place] 01/16/19 - 05/16/19 [facility] [address] [place] [address]- [facility] Attending Physician: Hemant Torres MD, V [...]
--- OUTSIDE RECORDS SUMMARY | 2021-11-21 08:17 | XMS_ITS | Continuity of Care Document ---
:1970 Author Organization [facility] Address [address] [place] [address]- Care Team Providers Name Role Phone Mirtha Lunsford MD Primary Care Physician En[place] [facility] [place] [facility] [id number] Date(s): 02/07/19 - 02/17/19 [facility] [address] [place] [address]- [facility] Attending Physician: Dodie Venegas Admitting Physician: Dodie [...]
--- OUTSIDE RECORDS SUMMARY | 2021-11-21 08:17 | XMS_ITS | Continuity of Care Document ---
:1970 Author Organization [facility] Address Unavailable , Care Team Providers Name Role Phone Mirtha Lunsford MD Primary Care Physician [id number] Date(s): 05/25/21 - 07/16/21 [facility] Attending Physician: Yair Kearney MD Admitting [...]
[2021-11-21 08:21] VITALS: PULSE 98; RESP 24; O2SAT 97
[2021-11-21] MEDS: methylPREDNISolone Sod Succ 125 MG/2 ML VIAL IVPUSH (08:24)
[2021-11-21] MEDS: Magnesium Sulfate/H2O 2 GM/50 ML PIGGYBACK IV (08:24)
[2021-11-21] MEDS: guaiFENesin LA 600 MG TAB.ER.12H 1200 MG PO (08:24)
[2021-11-21 08:45] LABS: MANUAL DIFF FLAG NO
[2021-11-21 08:54] VITALS: BP 139/84; PULSE 98; RESP 24; TEMP 36.9; O2SAT 98
[2021-11-21 08:54] LABS: Basophils Absolute Auto 0.1 X10*3/uL (0.0-0.2); Basophils Percent Auto 0.7 % (0-2); Eosinophils Absolute Auto 0.5 X10*3/uL (0.0-0.4); Eosinophils Percent Auto 6.3 % (0-4); Hematocrit 49.4 % (42.0-52.0); Hemoglobin 16.5 g/dl (14.0-18.0); Imm Gran Abs Auto 0.11 X10*3/uL (0.00-0.03); Imm Gran Pct Auto 1.4 % (0.0-0.4); Lymphocytes Absolute Auto 1.2 X10*3/uL (1.2-4.9); Lymphocytes Percent Auto 14.8 % (20-40); Mean Corpuscular HGB Conc 33.4 g/dl (31.0-36.0); Mean Corpuscular Hemoglobin 30.6 pg (27.0-33.0); Mean Corpuscular Volume 91.7 fL (80.0-98.0); Monocytes Absolute Auto 1.1 X10*3/uL (0.1-1.2); Neutrophils Absolute Auto 5.1 x10*3/uL (2.0-8.3); Neutrophils Percent Auto 62.8 % (45-73); Platelet Count 204 X10*3/uL (160-400); Red Blood Count 5.39 X10*6/uL (4.60-5.80); Red Cell Distribution Width 12.7 % (11.0-16.0); White Blood Count 8.1 X10*3/uL (4.8-10.8)
[2021-11-21] MEDS: Albuterol Sulfate 2.5 MG, Albuterol Sulfate (0.083%) 2.5 MG 5 MG INHALE ×2 (09:01→09:48)
[2021-11-21 09:03] VITALS: PULSE 98; RESP 20; O2SAT 95
[2021-11-21 09:04] LABS: IDNOW Serial# 9DB6401D; Influenza A Negative (Negative); Influenza B2 Negative (Negative)
[2021-11-21 09:05] LABS: COVID-19 Test Negative (Negative); IDNOW Serial# 16C4AD1C
[2021-11-21 09:15] LABS: B Type Natriuretic Peptide < 10 pg/mL (<100)
--- NOTE | 2021-11-21 09:17 | PC.NURSE ---
Pt received two duo nebs via Respiratory Therapy. Pt continues to have bilateral wheezes throughout. Pt states that work of breathing is a bit easier at this time
[2021-11-21 09:20] LABS: Alanine Aminotransferase 23 U/L (0-40); Albumin Level 4.5 g/dL (3.5-5.0); Alkaline Phosphatase 137 U/L (39-117); Anion Gap 19 (12-20); Aspartate Amino Transferase 20 U/L (5-37); Bilirubin Direct 0.2 mg/dL (0.0-0.5); Bilirubin Total 0.5 mg/dL (0.0-1.0); Blood Urea Nitrogen 15 mg/dL (9-16); Calcium 9.4 mg/dL (8.4-10.2); Carbon Dioxide 19 mmol/L (22-29); Chloride 106 mmol/L (96-108); Estimated Glomerular Filt Rate > 60; Glucose Random 106 mg/dL (60-115); Magnesium 2.2 mg/dL (1.6-2.6); Potassium 4.4 mmol/L (3.3-5.1); Sodium 140 mmol/L (135-145); Total Protein 7.7 g/dL (6.5-8.0)
[2021-11-21 09:27] LABS: Procalcitonin 0.08 ng/mL
[2021-11-21 09:49] VITALS: PULSE 93; RESP 20; O2SAT 96
[2021-11-21 10:33] LABS: Appearance Urine Clear; Color Urine Yellow; Glucose Urine UA Negative (Negative); Leukocyte Esterase Urine Negative (Negative); Nitrite Urine Negative (Negative); PH 6.5 (5.0-9.0); Urine Blood Negative (Negative); Urine Ketones Negative (Negative); Urine Protein Negative (Neg-Trace)
== END 2021-11-21 10:48 | disposition home or self-care (01) ==
PROVIDERS: Physician Assistant; Emergency Provider Emergency Medicine; PCP Family Medicine
DX: J45.909 Unspecified asthma, uncomplicated (principal); Z20.822 Contact with and (suspected) exposure to COVID-19; R06.02 Shortness of breath; F17.210 Nicotine dependence, cigarettes, uncomplicated; Z71.6 Tobacco abuse counseling; Z79.899 Other long term (current) drug therapy
CPT/HCPCS: 36415; 71045; 80048; 80076; 81003; 83735; 83880; 84145; 85025; 87502; 87635; 93005; 94640; 96365; 96366; 96375; 99285; J2930; J3475

== ENCOUNTER 2021-12-03 14:08 | Outpatient (REF) | payer MEDICAID, SELFPAY ==
--- NOTE | ~2021-12-03 | XR_ITS ---
EXAMINATION: XR CHEST CLINICAL INFORMATION: Bronchitis COMPARISON: Chest x-ray 11/21/2021 TECHNIQUE: 2 views of the chest were obtained. FINDINGS: No significant abnormality is noted involving the heart, lungs, mediastinum, bony thorax or soft tissues. There is lower cervical disc fusion with ventral hardware. XR/XR chest 2V IMPRESSION: Unremarkable chest examination.
== END 2021-12-03 14:09 | disposition home or self-care (01) ==
LOC: HO.XRAY 14:08
PROVIDERS: Absent Provider Family Medicine; PCP Family Medicine; Visit Provider Internal Medicine
DX: J40 Bronchitis, not specified as acute or chronic (principal)
CPT/HCPCS: 71046

== ENCOUNTER → 2022-01-27 10:36 | Outpatient (BNVA) | payer MEDICAID, SELFPAY | PROVIDERS: PCP Family Medicine; Visit Provider Internal Medicine Pulmonary Disease | DX: J45.909 Unspecified asthma, uncomplicated (principal); Z91.09 Other allergy status, other than to drugs and biological substances; Z79.899 Other long term (current) drug therapy | CPT/HCPCS: 99212 ==

== ENCOUNTER 2022-02-01 07:26 | Outpatient (REF) | payer MEDICAID, SELFPAY | END 2022-02-01 07:27 | disposition home or self-care (01) | LOC: HO.MDS 07:26 | PROVIDERS: Visit Provider Internal Medicine Pulmonary Disease | DX: J45.50 Severe persistent asthma, uncomplicated (principal) | CPT/HCPCS: 96372; J2357 ==

== ENCOUNTER 2022-02-13 03:30 | Emergency (ER) | payer MEDICAID, SELFPAY ==
[2022-02-13 03:36] VITALS: BP 155/73; PULSE 95; RESP 22; TEMP 36.4; O2SAT 96; BMI 38.7
--- NOTE | 2022-02-13 03:48 | ED.GENADULT ---
HPI - General Adult General Chief complaint: General Medical Stated complaint: Diff breathing Time Seen by Provider: 02/13/22 03:48 Source: patient Mode of arrival: ambulatory Limitations: no limitations History of Present Illness HPI narrative: Patient history of asthma already vaccinated against COVID and flu been sick since yesterday with nasal congestion running nose cough chills no fever cough is mostly dry came here with wheezing and frequent cough use nebulized treatment at home without much response Related Data Home Medications Medication Instructions Recorded Confirmed pregabalin 150 mg capsule (Lyrica) 150 mg PO BID 11/26/19 08/31/21 montelukast 10 mg tablet 1 tab PO BEDTIME 09/14/20 08/31/21 acetaminophen 500 mg tablet 1 tab PO Q6H PRN Headache 09/22/20 08/31/21 ipratropium 20 mcg-albuterol 100 1 - 2 puff PO QID 09/22/20 08/31/21 mcg/actuation mist for inhalation (Combivent Respimat) amlodipine 10 mg tablet 1 tab PO DAILY 08/31/21 08/31/21 loratadine 10 mg tablet 1 tab PO DAILY 08/31/21 08/31/21 Previous Rx's Medication Instructions Recorded ipratropium 0.5 mg-albuterol 3 mg 3 ml inhalation Q6H PRN shortness 10/20/20 (2.5 mg base)/3 mL nebulization of breath or wheezing #15 mL soln cyclobenzaprine 10 mg tablet 10 mg PO TID PRN muscle spasm #14 10/26/20 tabs omalizumab 150 mg subcutaneous 225 mg subcut Q2W 28 days #3 ea 12/11/20 solution (Xolair) albuterol sulfate 90 mcg/actuation 1 inh inhalation QID PRN shortness 05/20/21 aerosol inhaler of breath or wheezing #6.7 grams fluticasone propionate 115 2 puff inhalation Q12H 30 days #1 06/10/21 mcg-salmeterol 21 mcg/actuation ea HFA inhaler (Advair HFA) albuterol sulfate 1.25 mg/3 mL 1.25 mg (3 mL) inhalation QID PRN 11/21/21 solution for nebulization shortness of breath or wheezing #75 mL cefpodoxime 200 mg tablet 200 mg PO BID #10 tabs 11/21/21 codeine 10 mg-guaifenesin 100 mg/5 10 ml PO Q6H PRN cough #237 mL 02/13/22 mL oral liquid oseltamivir 75 mg capsule (Tamiflu) 75 mg PO BID 5 days #10 caps 02/13/22 prednisone 20 mg tablet 40 mg PO DAILY #10 tabs 02/13/22 Allergies Allergy/AdvReac Type Severity Reaction Status Date / Time Iodinated Contrast Media Allergy Severe Unknown Verified 01/27/22 10:38 ibuprofen [From MOTRIN] Allergy Unknown KIDNEY Verified 01/27/22 10:38 ISSUES mushroom AdvReac Mild VOMITING Verified 01/27/22 10:38 Review of Systems Review of Systems: Yes all other systems are reviewed and are negative [facility] Past Medical History Medical History (Updated 02/13/22 @ 05:49 by Yobani Palumbo MD) 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 Arthritis Asthma Asthma with exacerbation Hypertension Surgical History H/O kidney removal H/O neck surgery History of unilateral nephrectomy Previous back surgery Family History Family History Mother Hypertension Asthma Father Medical history unknown Social History Social History Household Members: None Housing: House Do you presently have visiting nurse or other home services: No Alcohol intake: current Alcohol intake frequency: does not drink Patient Tobacco Use Status: Current everyday Tobacco user Tobacco use type: Cigarette Cigarettes Per Day: 4 Years Smoked: 20 years e-Cigarette/Vaping Use: Former Use Second Hand Smoke Exposure: No Use of substances other than those prescribed or required for medical reasons: No Any prior treatment program specific to substance use: No Advance Directives: No Advance Directives Information Provided: Yes service: No Current occupational status: employed Physical Exam ED Vital Signs: Vital Signs - 24 hr 02/13/22 03:36 02/13/22 04:10 02/13/22 04:36 Temperature 97.6 F 98.1 F Pulse Rate 95 128 H 129 H Respiratory Rate 22 H 28 H 24 H Blood Pressure 155/73 H 137/80 Pulse Oximetry 96 93 Oxygen Delivery Method Room Air Room Air 02/13/22 05:40 Temperature 99.7 F Pulse Rate 114 H Respiratory Rate 23 H Blood Pressure 131/84 Pulse Oximetry 94 Oxygen Delivery Method Room Air BMI result Body Mass Index 38.7 Appearance: Alert. Oriented X3. No acute distress. Eyes: No pallor ENT: Pharynx normal. Oral Mucosa moist Neck: Normal inspection. Neck supple. CVS: Normal heart rate and rhythm. Pulses normal. Respiratory: No respiratory distress. Equal air entry bilateral, bilateral wheezing with rhonchi Abdomen: Soft and nontender. Bowel sounds are present, no mass palpable, no CVA tenderness Skin: Skin warm and dry. Normal skin color. Normal skin turgor. Extremities: No lower extremity edema. No calf tenderness Neuro: Oriented X 3. No motor deficit. Medications Administered Discontinued Medications Generic Name Dose Route Start Last Admin Trade Name Freq PRN Reason Stop Dose Admin Albuterol Sulfate 2.5 mg/ 0 mg 02/13/22 03:49 02/13/22 04:08 Albuterol/Ipratropium 3 ml INHALE 02/13/22 03:50 5 each ONCE ONE Administration Guaifenesin/Codeine Phosphate 10 ml 02/13/22 03:49 02/13/22 04:05 Guaifen/Codeine Sf 200/20/10ml 10 Ml Liquid PO 02/13/22 03:50 10 ml ONCE ONE Administration Magnesium Sulfate 2 gm in 50 mls @ 100 mls/hr 02/13/22 03:49 02/13/22 04:06 Magnesium Sulfate/H2o IV 02/13/22 04:18 100 mls/hr ONCE ONE Administration Methylprednisolone Sodium Succinate 125 mg 02/13/22 03:49 02/13/22 04:03 Methylprednisolone Sod Succ 125 Mg/2 Ml Vial IVPUSH 02/13/22 03:50 125 mg ONCE ONE Administration Oseltamivir Phosphate 75 mg 02/13/22 05:17 02/13/22 05:28 Oseltamivir Phosphate 75 Mg Capsule PO 02/13/22 05:18 75 mg ONCE ONE Administration Medical Decision Making Lab Data MDM Lab Attestation statement: I reviewed the patient's lab results. Result Diagrams: 02/13/22 04:01 02/13/22 04:01 Labs: Lab Results 02/13/22 02/13/22 02/13/22 Range/Units 04:01 04:01 04:01 WBC 10.2 (4.8-10.8) X10*3/uL RBC 5.12 (4.60-5.80) X10*6/uL Hgb 15.6 (14.0-18.0) g/dl Hct 46.3 (42.0-52.0) % MCV 90.4 (80.0-98.0) fL MCH 30.5 (27.0-33.0) pg MCHC 33.7 (31.0-36.0) g/dl RDW 13.0 (11.0-16.0) % Plt Count 238 (160-400) X10*3/uL MPV 11.0 (9.4-12.4) fL Immature Gran % (Auto) 0.8 H (0.0-0.4) % Neut % (Auto) 84.0 H (45-73) % Lymph % (Auto) 8.1 L (20-40) % Sampson % (Auto) 6.6 (2-11) % Eos % (Auto) 0.2 (0-4) % Baso % (Auto) 0.3 (0-2) % Lymph # (Auto) 0.8 L (1.2-4.9) X10*3/uL Sampson # (Auto) 0.7 (0.1-1.2) X10*3/uL Eos # (Auto) 0.0 (0.0-0.4) X10*3/uL Baso # (Auto) 0.0 (0.0-0.2) X10*3/uL Abs Immat Gran (auto) 0.08 H (0.00-0.03) X10*3/uL Absolute Neuts (auto) 8.6 H (2.0-8.3) x10*3/uL Absolute Nucleated RBC 0.000 (0.0-0.012) X10*3/uL Nucleated RBC % (auto) 0.0 (0.0-0.2) /100WBC Sodium 138 (135-145) mmol/L Potassium 4.5 (3.3-5.1) mmol/L Chloride 104 (96-108) mmol/L Carbon Dioxide 24 (22-29) mmol/L Anion Gap 15 (12-20) BUN 16 (9-16) mg/dL Creatinine 1.14 (0.5-1.4) mg/dL Estim Creat Clear Calc 86.7 Estimated GFR > 60 Random Glucose 83 (60-115) mg/dL Calcium 9.0 (8.4-10.2) mg/dL Total Bilirubin 0.4 (0.0-1.0) mg/dL AST 16 (5-37) U/L ALT 16 (0-40) U/L Alkaline Phosphatase 125 H (39-117) U/L Total Protein 7.0 (6.5-8.0) g/dL Albumin 4.3 (3.5-5.0) g/dL Influenza Type A (PCR) POSITIVE A (Negative) Influenza Type B (PCR) NEGATIVE (Negative) RSV RNA Qual (PCR) NEGATIVE (Negative) SARS-CoV-2 RNA (RT-PCR) NEGATIVE (Negative) Discharge Plan Discharge Clinical Impression: Asthma, Influenza A Patient Disposition: Home, Self-Care Instructions: Asthma (ED), Influenza (ED) Additional Instructions: Continue to use albuterol inhaler as prescribed Tamiflu as prescribed Prednisone and cough syrup Drink plenty of fluid, social distancing still completely better Prescriptions: New prednisone 20 mg tablet 40 mg PO DAILY Qty: 10 0RF codeine-guaifenesin 10-100 mg/5 mL liquid 10 ml PO Q6H PRN (Reason: cough) Qty: 237 0RF oseltamivir [Tamiflu] 75 mg capsule 75 mg PO BID 5 Days Qty: 10 0RF No Action Xolair 150 mg recon soln 225 mg subcut Q2W 28 Days Qty: 3 12RF Rx Instructions: requires multiple injection sites; do not exceed 150 mg per injection site acetaminophen 500 mg tablet 1 tab PO Q6H PRN (Reason: Headache) Combivent Respimat 20-100 mcg/actuation mist 1 - 2 puff PO QID ipratropium-albuterol 0.5 mg-3 mg(2.5 mg base)/3 mL solution for nebulization 3 ml inhalation Q6H PRN (Reason: shortness of breath or wheezing) Qty: 15 0RF pregabalin [Lyrica] 150 mg Capsule 150 mg PO BID montelukast 10 mg tablet 1 tab PO BEDTIME cyclobenzaprine 10 mg tablet 10 mg PO TID PRN (Reason: muscle spasm) Qty: 14 0RF albuterol sulfate 1.25 mg/3 mL solution for nebulization 1.25 mg inhalation QID PRN (Reason: shortness of breath or wheezing) Qty: 75 0RF cefpodoxime 200 mg tablet 200 mg PO BID Qty: 10 0RF Rx Instructions: must administer with a meal/food albuterol sulfate 90 mcg/actuation HFA aerosol inhaler 1 inh inhalation QID PRN (Reason: shortness of breath or wheezing) Qty: 6.7 0RF amlodipine 10 mg tablet 1 tab PO DAILY loratadine 10 mg tablet 1 tab PO DAILY Advair HFA 115-21 mcg/actuation HFA aerosol inhaler 2 puff inhalation Q12H 30 Days Qty: 1 6RF Interventions: ED Discharge Assessment Last Done: 02/13/22 06:02 Discharge Date/Time: 02/13/22 06:03
[2022-02-13 04:08] LABS: MANUAL DIFF FLAG NO
[2022-02-13 04:10] VITALS: PULSE 128; RESP 28; O2SAT 95
--- NOTE | 2022-02-13 04:20 | PC.NURSE ---
pt a&o, increase sob with history of Asthma. no chest pain. Medicated per apr. pt able to speak in full sentences. pt please on bedside monitor
[2022-02-13 04:26] LABS: Alanine Aminotransferase 16 U/L (0-40); Albumin Level 4.3 g/dL (3.5-5.0); Alkaline Phosphatase 125 U/L (39-117); Anion Gap 15 (12-20); Aspartate Amino Transferase 16 U/L (5-37); Basophils Percent Auto 0.3 % (0-2); Bilirubin Total 0.4 mg/dL (0.0-1.0); Blood Urea Nitrogen 16 mg/dL (9-16); Carbon Dioxide 24 mmol/L (22-29); Chloride 104 mmol/L (96-108); Creatinine Clr Calc Pharmacy 86.7; Eosinophils Percent Auto 0.2 % (0-4); Estimated Glomerular Filt Rate > 60; Glucose Random 83 mg/dL (60-115); Hematocrit 46.3 % (42.0-52.0); Hemoglobin 15.6 g/dl (14.0-18.0); Imm Gran Abs Auto 0.08 X10*3/uL (0.00-0.03); Imm Gran Pct Auto 0.8 % (0.0-0.4); Lymphocytes Absolute Auto 0.8 X10*3/uL (1.2-4.9); Lymphocytes Percent Auto 8.1 % (20-40); Mean Corpuscular HGB Conc 33.7 g/dl (31.0-36.0); Mean Corpuscular Hemoglobin 30.5 pg (27.0-33.0); Mean Corpuscular Volume 90.4 fL (80.0-98.0); Monocytes Absolute Auto 0.7 X10*3/uL (0.1-1.2); Monocytes Percent Auto 6.6 % (2-11); Neutrophils Absolute Auto 8.6 x10*3/uL (2.0-8.3); Platelet Count 238 X10*3/uL (160-400); Potassium 4.5 mmol/L (3.3-5.1); Red Blood Count 5.12 X10*6/uL (4.60-5.80); Sodium 138 mmol/L (135-145); White Blood Count 10.2 X10*3/uL (4.8-10.8)
[2022-02-13 04:36] VITALS: BP 137/80; PULSE 129; RESP 24; TEMP 36.7; O2SAT 93
--- NOTE | 2022-02-13 04:47 | PC.NURSE ---
pt report feeling better after medication and treatment
[2022-02-13 05:04] LABS: Influenza A PCR POSITIVE (Negative); Influenza B PCR NEGATIVE (Negative); Resp Syncy Virus RNA Qual PCR NEGATIVE (Negative); SARS COV2 PCR INHOUSE NEGATIVE (Negative)
[2022-02-13 05:40] VITALS: BP 131/84; PULSE 114; RESP 23; TEMP 37.6; O2SAT 94
--- NOTE | 2022-02-13 06:01 | PC.NURSE ---
Reviewed discharge instruction with pt. pt verbalized understanding.
== END 2022-02-13 06:03 | disposition home or self-care (01) ==
PROVIDERS: Emergency Provider Internal Medicine
DX: J11.1 Influenza due to unidentified influenza virus with other respiratory manifestations (principal); J45.909 Unspecified asthma, uncomplicated; F17.210 Nicotine dependence, cigarettes, uncomplicated
CPT/HCPCS: 0241U; 36415; 71045; 80053; 85025; 94640; 96374; 96375; 99284; J2930; J3475

== ENCOUNTER 2022-02-23 07:32 | Outpatient (REF) | payer MEDICAID, SELFPAY | END 2022-02-23 07:33 | disposition home or self-care (01) | LOC: HO.MDS 07:32 | PROVIDERS: PCP Internal Medicine; Visit Provider Internal Medicine Pulmonary Disease | DX: J45.50 Severe persistent asthma, uncomplicated (principal) | CPT/HCPCS: 96372; J2357 ==

== ENCOUNTER 2022-03-03 13:04 | Outpatient (REF) | payer MEDICAID, SELFPAY ==
--- NOTE | 2022-03-03 09:45 | EMG_ITS ---
Please see scanned EMG / Nerve Conduction Report. MTDD
== END 2022-03-03 13:05 | disposition home or self-care (01) ==
LOC: HO.NEURO 13:04
PROVIDERS: Visit Provider Internal Medicine
DX: R20.2 Paresthesia of skin (principal)
CPT/HCPCS: 95885; 95909

== ENCOUNTER 2022-03-08 09:35 | Outpatient (REF) | payer MEDICAID, SELFPAY | END 2022-03-08 09:36 | disposition home or self-care (01) | LOC: HO.MDS 09:35 | PROVIDERS: Visit Provider Internal Medicine Pulmonary Disease | DX: J45.50 Severe persistent asthma, uncomplicated (principal) | CPT/HCPCS: 96372; J2357 ==

== ENCOUNTER 2022-03-09 08:12 | Emergency (ER) | payer MEDICAID, SELFPAY ==
--- NOTE | ~2022-03-09 | CT_ITS ---
EXAMINATION: CT abdomen pelvis wo IV con CLINICAL INFORMATION: Reason for Exam R flank and RLQ pain COMPARISON: Multiple prior CTs most recent 05/05/2020 TECHNIQUE: Multidetector volumetric imaging was performed from the superior aspect of the liver through the pubic symphysis , noncontrasted study. Sagittal and coronal reformatted images were obtained on the technologist's workstation. This CT examination was performed using dose optimization techniques as appropriate, variously including the following: *Automated exposure control *Adjustment of mA and/or kV according to patient size (this includes techniques or standardized protocols for targeted exams where dose is matched to indication/reason for exam; i.e. extremities or head) *Use of iterative reconstruction technique DLP: 677 mGy-cm FINDINGS: LOWER THORAX: Included lung bases are clear. HEPATOBILIARY: No focal hepatic lesions. No biliary ductal dilatation. GALLBLADDER: Gallbladder unremarkable. SPLEEN: Spleen is normal in size. PANCREAS: No focal mass or ductal dilatation. STOMACH AND GASTROINTESTINAL TRACT: Stomach is grossly unremarkable. There are a few scattered sigmoid diverticula. No evidence of diverticulitis. No CT evidence of appendicitis. ADRENALS: Redemonstration of right adrenal nodule 1.5 x 1.7 cm, low attenuation of its matrix suggesting lipid rich adenoma, this has not changed. Left adrenal is normal. KIDNEYS/URETERS: Postsurgical changes from prior left nephrectomy. Compensatory hypertrophy right kidney. No stone. No hydronephrosis. Perinephric fat are clear. Small cyst protruding from the anterior cortex 1.4 cm. This has not changed from prior CT of February 2018 URINARY BLADDER: Partially decompressed. PELVIC VISCERA: Unremarkable PERITONEUM: No free air or fluid. LYMPH NODES: No lymphadenopathy. VASCULAR:Abdominal aorta normal in size, no aneurysm found. BONES, ABDOMINAL WALL AND SOFT TISSUES: Age-appropriate changes of the spine and skeletal system, no destructive osteolytic or osteosclerotic bone lesion found CT/CT abdomen pelvis wo IV con IMPRESSION: * No CT evidence of acute intra-abdominal process to explain patient's pain symptoms. * Postsurgical changes from prior left nephrectomy. Compensatory hypertrophy right kidney. * Stable right adrenal nodule, low attenuation of its matrix suggesting lipid rich adenoma. * Mild sigmoid diverticulosis without evidence of acute diverticulitis. * Cystic structure in the upper pole right kidney 1.9 cm Limited evaluation due to lack of contrast, this is stable unchanged since February 2018 likely a simple cyst. No follow-up is required.
[2022-03-09 08:39] VITALS: BP 150/89; PULSE 91; RESP 16; TEMP 36.2; O2SAT 97; BMI 32.9
--- NOTE | 2022-03-09 09:20 | ED.GENADULT ---
HPI - General Adult General Chief complaint: General Medical Stated complaint: Lump on r side/Sore throat Time Seen by Provider: 03/09/22 09:07 Source: patient Mode of arrival: ambulatory History of Present Illness HPI narrative: 52-year-old male with past medical history of arthritis, asthma, hypertension, kidney removal, presenting to the ED complaining of right flank pain radiating to right lower quadrant x a few days. States pain worse with walking and palpation. Also reports sore throat. Denies fever, chills, nausea/vomiting, hematuria/dysuria, scrotal swelling/pain, urinary incontinence/retention Onset (ago): day(s) Related Data Home Medications Medication Instructions Recorded Confirmed pregabalin 150 mg capsule (Lyrica) 150 mg PO BID 11/26/19 08/31/21 montelukast 10 mg tablet 1 tab PO BEDTIME 09/14/20 08/31/21 acetaminophen 500 mg tablet 1 tab PO Q6H PRN Headache 09/22/20 08/31/21 ipratropium 20 mcg-albuterol 100 1 - 2 puff PO QID 09/22/20 08/31/21 mcg/actuation mist for inhalation (Combivent Respimat) amlodipine 10 mg tablet 1 tab PO DAILY 08/31/21 08/31/21 loratadine 10 mg tablet 1 tab PO DAILY 08/31/21 08/31/21 Previous Rx's Medication Instructions Recorded ipratropium 0.5 mg-albuterol 3 mg 3 ml inhalation Q6H PRN shortness 10/20/20 (2.5 mg base)/3 mL nebulization of breath or wheezing #15 mL soln cyclobenzaprine 10 mg tablet 10 mg PO TID PRN muscle spasm #14 10/26/20 tabs omalizumab 150 mg subcutaneous 225 mg subcut Q2W 28 days #3 ea 12/11/20 solution (Xolair) albuterol sulfate 90 mcg/actuation 1 inh inhalation QID PRN shortness 05/20/21 aerosol inhaler of breath or wheezing #6.7 grams fluticasone propionate 115 2 puff inhalation Q12H 30 days #1 06/10/21 mcg-salmeterol 21 mcg/actuation ea HFA inhaler (Advair HFA) albuterol sulfate 1.25 mg/3 mL 1.25 mg (3 mL) inhalation QID PRN 11/21/21 solution for nebulization shortness of breath or wheezing #75 mL cefpodoxime 200 mg tablet 200 mg PO BID #10 tabs 11/21/21 codeine 10 mg-guaifenesin 100 mg/5 10 ml PO Q6H PRN cough #237 mL 02/13/22 mL oral liquid oseltamivir 75 mg capsule (Tamiflu) 75 mg PO BID 5 days #10 caps 02/13/22 prednisone 20 mg tablet 40 mg PO DAILY #10 tabs 02/13/22 acetaminophen 500 mg tablet 500 mg PO Q6H PRN fever or pain 03/09/22 (Tylenol Extra Strength) #14 tabs cyclobenzaprine 5 mg tablet 5 mg PO Q8H PRN pain (scale score 03/09/22 7-10) 5 days #14 tabs lidocaine 5 % topical patch 1 patch topical DAILY PRN pain #30 03/09/22 (Lidoderm) ea Allergies Allergy/AdvReac Type Severity Reaction Status Date / Time Iodinated Contrast Media Allergy Severe Unknown Verified 03/09/22 09:40 ibuprofen [From MOTRIN] Allergy Unknown KIDNEY Verified 03/09/22 09:40 ISSUES mushroom AdvReac Mild VOMITING Verified 03/09/22 09:40 Review of Systems Review of Systems: Constitutional: No Fever, No Chills ENT/Mouth: No Ear Pain, No Nasal Congestion, + sore throat, No Rhinorrhea, No Swallowing Difficulty Cardiovascular: No Chest Pain, No SOB Respiratory: No Cough, No Sputum, No Wheezing Gastrointestinal: No Nausea, No Vomiting, No Diarrhea, No Constipation, No Abdominal pain Genitourinary: No Dysuria, No Urinary Frequency, No Hematuria, No Urinary Incontinence/retention, No Urgency, + Flank Pain Musculoskeletal: + joint pain, No Myalgias, No Joint Swelling Skin: No Skin Lesions, No rash Neuro: No Weakness, No Numbness, No Paresthesias Yes all other systems are reviewed and are negative Constitutional: Constitutional: Reports as per [facility] Past Medical History Attestation statement: The following information was validated with the patient. 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 Arthritis Asthma Asthma with exacerbation Hypertension Surgical History H/O kidney removal H/O neck surgery History of unilateral nephrectomy Previous back surgery Family History Family History Mother Hypertension Asthma Father Medical history unknown Social History Social History Household Members: None Housing: House Do you presently have visiting nurse or other home services: No Alcohol intake: current Alcohol intake frequency: does not drink Patient Tobacco Use Status: Current everyday Tobacco user Tobacco use type: Cigarette Cigarettes Per Day: 4 Years Smoked: 20 years e-Cigarette/Vaping Use: Former Use Second Hand Smoke Exposure: No Advance Directives: No Advance Directives Information Provided: No service: No Current occupational status: employed Physical Exam ED Vital Signs: Vital Signs - 24 hr 03/09/22 08:39 03/09/22 11:22 Temperature 97.1 F 97.1 F Pulse Rate 91 88 Respiratory Rate 16 16 Blood Pressure 150/89 H 135/85 Pulse Oximetry 97 93 Oxygen Delivery Method Room Air Room Air BMI result Body Mass Index 32.9 Const General: cooperative, healthy appearing, comfortable and no acute distress Orientation/consciousness: patient oriented x3 Limitations: no limitations HENMT Head: Yes normal to inspection and Yes atraumatic Ears: hearing grossly normal bilaterally, external ears normal, TM's normal bilaterally and mastoids normal General nose exam: Normal external nose present Face and sinus: Yes normal facial exam Throat: Yes tonsils normal, Yes uvula midline, No peritonsillar mass and Yes posterior oropharynx abnormal (mild erythematous ) Eyes General: appearance normal, both eyes and all related structures EOM: EOMs intact bilaterally Neck Neck: Yes normal visual inspection and Yes no meningeal signs Resp Effort & Inspection: normal respiratory effort and no respiratory distress Cardio Rate: regular rate Heart sounds: S1 normal heart sound present and S2 normal heart sound present GI Inspection: Yes normal to inspection Palpation (GI): Soft to palpation, Tenderness to palpation present (GI) in the RLQ; not suprapubicly, no guarding and not rigid General: Yes CVA tenderness on the right Back/Spine/Pelvis Other: No midline thoracic/lumbar spinous tenderness/step-off or deformity Back: CVA tenderness Skin Rashes: no rashes Wounds: no wounds Neuro Other: Strength intact throughout. No saddle anesthesia. Sensation intact to light touch. Neurovascular intact distally General: patient oriented x3, gait normal, tone normal, moves all extremities, no meningeal signs and no focal motor deficits Gait exam (Neuro): Normal gait present Motor exam (neuro): 5/5 motor strength present throughout Extrem General: Yes normal to inspection Course Course Course Narrative: -1106--no leukocytosis. BUN acute on chronically elevated. UA not infected -rapid strep negative CT abdomen pelvis wo IV con IMPRESSION: ? *? No CT evidence of acute intra-abdominal process to explain patient's pain symptoms. ? *? Postsurgical changes from prior left nephrectomy. Compensatory hypertrophy right kidney. ? *? Stable right adrenal nodule, low attenuation of its matrix suggesting lipid rich adenoma. ? *? Mild sigmoid diverticulosis without evidence of acute diverticulitis. ? *? Cystic structure in the upper pole right kidney 1.9 cm Limited evaluation due to lack of contrast, this is stable unchanged since February 2018 likely a simple cyst. No follow-up is required. Results discussed with patient including worrisome signs and symptoms and strict return precautions, and when to return to the emergency department. They verbalized understanding and feel safe for discharge at this time. Medical Decision Making Medical Decision Making [facility] Narrative: 52-year-old male with past medical history of arthritis, asthma, hypertension, kidney removal, presenting to the ED complaining of right flank pain radiating to right lower quadrant x a few days. On exam vital signs stable, NAD, nontoxic appearing, abdomen soft nontender with RLQ and right CVA tenderness, no rebound or guarding, no midline spinous tenderness throughout or red flag symptoms. Ambulating with steady gait. Concern for renal stone/pyelo vs appendicitis vs MSK pain/strain. Low suspicion for testicular torsion, fracture, cord compression, cauda equina or cholecystitis/cholelithiasis Plan: Labs, UA, CT AP, re-evaluate Please refer to course for remaining clinical decision making, interpretation of labs/imaging results, and discussions with consultants and/or family members. Differential Diagnosis Differential Diagnoses: The differential diagnosis associated with the presentation includes As above Lab Data [facility] Lab Attestation statement: I reviewed the patient's lab results. 03/09/22 09:48 03/09/22 09:48 Labs: Lab Results 03/09/22 03/09/22 03/09/22 Range/Units 09:47 09:48 09:48 WBC 8.4 (4.8-10.8) X10*3/uL RBC 5.25 (4.60-5.80) X10*6/uL Hgb 16.0 (14.0-18.0) g/dl Hct 47.0 (42.0-52.0) % MCV 89.5 (80.0-98.0) fL MCH 30.5 (27.0-33.0) pg MCHC 34.0 (31.0-36.0) g/dl RDW 13.0 (11.0-16.0) % Plt Count 271 (160-400) X10*3/uL MPV 10.6 (9.4-12.4) fL Immature Gran % (Auto) 1.4 H (0.0-0.4) % Neut % (Auto) 66.6 (45-73) % Lymph % (Auto) 19.1 L (20-40) % [place] % (Auto) 9.9 (2-11) % Eos % (Auto) 2.5 (0-4) % Baso % (Auto) 0.5 (0-2) % Lymph # (Auto) 1.6 (1.2-4.9) X10*3/uL [place] # (Auto) 0.8 (0.1-1.2) X10*3/uL Eos # (Auto) 0.2 (0.0-0.4) X10*3/uL Baso # (Auto) 0.0 (0.0-0.2) X10*3/uL Abs Immat Gran (auto) 0.12 H (0.00-0.03) X10*3/uL Absolute Neuts (auto) 5.6 (2.0-8.3) x10*3/uL Absolute Nucleated RBC 0.000 (0.0-0.012) X10*3/uL Nucleated RBC % (auto) 0.0 (0.0-0.2) /100WBC Sodium 137 (135-145) mmol/L Potassium 4.6 (3.3-5.1) mmol/L Chloride 106 (96-108) mmol/L Carbon Dioxide 25 (22-29) mmol/L Anion Gap 11 L (12-20) BUN 18 H (9-16) mg/dL Creatinine 1.07 (0.5-1.4) mg/dL Estim Creat Clear Calc 84.0 Estimated GFR > 60 Random Glucose 93 (60-115) mg/dL Calcium 9.2 (8.4-10.2) mg/dL Magnesium 2.3 (1.6-2.6) mg/dL Total Bilirubin 0.6 (0.0-1.0) mg/dL Direct Bilirubin 0.2 (0.0-0.5) mg/dL AST 14 (5-37) U/L ALT 17 (0-40) U/L Alkaline Phosphatase 115 (39-117) U/L Total Protein 7.1 (6.5-8.0) g/dL Albumin 4.1 (3.5-5.0) g/dL Lipase 54 (8-78) U/L Urine Color Yellow Urine Appearance Clear Urine pH 5.5 (5.0-9.0) Ur Specific [place] 1.015 (1.005-1.025) Urine Protein Negative (Neg-Trace) mg/dL Urine Glucose (UA) Negative (Negative) mg/dL Urine Ketones Negative (Negative) mg/dL Urine Blood Negative (Negative) Urine Nitrite Negative (Negative) Ur Leukocyte Esterase Negative (Negative) S. pyogenes GrpA CORNADO (Negative) 03/09/22 Range/Units 09:48 WBC (4.8-10.8) X10*3/uL RBC (4.60-5.80) X10*6/uL Hgb (14.0-18.0) g/dl Hct (42.0-52.0) % MCV (80.0-98.0) fL MCH (27.0-33.0) pg MCHC (31.0-36.0) g/dl RDW (11.0-16.0) % Plt Count (160-400) X10*3/uL MPV (9.4-12.4) fL Immature Gran % (Auto) (0.0-0.4) % Neut % (Auto) (45-73) % Lymph % (Auto) (20-40) % [place] % (Auto) (2-11) % Eos % (Auto) (0-4) % Baso % (Auto) (0-2) % Lymph # (Auto) (1.2-4.9) X10*3/uL [place] # (Auto) (0.1-1.2) X10*3/uL Eos # (Auto) (0.0-0.4) X10*3/uL Baso # (Auto) (0.0-0.2) X10*3/uL Abs Immat Gran (auto) (0.00-0.03) X10*3/uL Absolute Neuts (auto) (2.0-8.3) x10*3/uL Absolute Nucleated RBC (0.0-0.012) X10*3/uL Nucleated RBC % (auto) (0.0-0.2) /100WBC Sodium (135-145) mmol/L Potassium (3.3-5.1) mmol/L Chloride (96-108) mmol/L Carbon Dioxide (22-29) mmol/L Anion Gap (12-20) BUN (9-16) mg/dL Creatinine (0.5-1.4) mg/dL Estim Creat Clear Calc Estimated GFR Random Glucose (60-115) mg/dL Calcium (8.4-10.2) mg/dL Magnesium (1.6-2.6) mg/dL Total Bilirubin (0.0-1.0) mg/dL Direct Bilirubin (0.0-0.5) mg/dL AST (5-37) U/L ALT (0-40) U/L Alkaline Phosphatase (39-117) U/L Total Protein (6.5-8.0) g/dL Albumin (3.5-5.0) g/dL Lipase (8-78) U/L Urine Color Urine Appearance Urine pH (5.0-9.0) Ur Specific [place] (1.005-1.025) Urine Protein (Neg-Trace) mg/dL Urine Glucose (UA) (Negative) mg/dL Urine Ketones (Negative) mg/dL Urine Blood (Negative) Urine Nitrite (Negative) Ur Leukocyte Esterase (Negative) S. pyogenes GrpA CONRAD[place] Negative (Negative) Radiology Impression Discussion of test interpretation with radiology: I have reviewed the radiologist's reading. External Record Review External record reviewed: Office record, Outpatient record and Prior outpatient labs Prescription Management I considered prescription management with: Pain Medication Discharge Plan Discharge Clinical Impression: Acute flank pain, Abdominal pain Patient Disposition: Home, Self-Care Instructions: Abdominal Pain (ED), Flank Pain (ED) Additional Instructions: Your pain is likely musculoskeletal Flexeril is a muscle relaxer, take at night as it makes you drowsy, do not drive, drink alcohol, or operate machinery while taking it Lidoderm patches are numbing patches, apply to painful area In addition take Tylenol at home If symptoms persist or worsen, pain becomes unbearable, you developed urinary retention or incontinence, or weakness return to the ED Prescriptions: New acetaminophen [Tylenol Extra Strength] 500 mg tablet 500 mg PO Q6H PRN (Reason: fever or pain) Qty: 14 0RF lidocaine [Lidoderm] 5 % adhesive patch,medicated 1 patch topical DAILY MDD remove after 12 hours PRN (Reason: pain) Qty: 30 0RF Rx Instructions: leave on most painful area for up to 12 hrs cyclobenzaprine 5 mg tablet 5 mg PO Q8H PRN (Reason: pain (scale score 7-10)) 5 Days Qty: 14 0RF No Action Xolair 150 mg recon soln 225 mg subcut Q2W 28 Days Qty: 3 12RF Rx Instructions: requires multiple injection sites; do not exceed 150 mg per injection site acetaminophen 500 mg tablet 1 tab PO Q6H PRN (Reason: Headache) Combivent Respimat 20-100 mcg/actuation mist 1 - 2 puff PO QID ipratropium-albuterol 0.5 mg-3 mg(2.5 mg base)/3 mL solution for nebulization 3 ml inhalation Q6H PRN (Reason: shortness of breath or wheezing) Qty: 15 0RF pregabalin [Lyrica] 150 mg Capsule 150 mg PO BID montelukast 10 mg tablet 1 tab PO BEDTIME cyclobenzaprine 10 mg tablet 10 mg PO TID PRN (Reason: muscle spasm) Qty: 14 0RF albuterol sulfate 1.25 mg/3 mL solution for nebulization 1.25 mg inhalation QID PRN (Reason: shortness of breath or wheezing) Qty: 75 0RF cefpodoxime 200 mg tablet 200 mg PO BID Qty: 10 0RF Rx Instructions: must administer with a meal/food prednisone 20 mg tablet 40 mg PO DAILY Qty: 10 0RF codeine-guaifenesin 10-100 mg/5 mL liquid 10 ml PO Q6H PRN (Reason: cough) Qty: 237 0RF oseltamivir [Tamiflu] 75 mg capsule 75 mg PO BID 5 Days Qty: 10 0RF albuterol sulfate 90 mcg/actuation HFA aerosol inhaler 1 inh inhalation QID PRN (Reason: shortness of breath or wheezing) Qty: 6.7 0RF amlodipine 10 mg tablet 1 tab PO DAILY loratadine 10 mg tablet 1 tab PO DAILY Advair HFA 115-21 mcg/actuation HFA aerosol inhaler 2 puff inhalation Q12H 30 Days Qty: 1 6RF Referrals: Mirtha Lunsford MD [Primary Care Provider] - 3 days Interventions: ED Discharge Assessment Last Done: 03/09/22 11:42 Discharge Date/Time: 03/09/22 11:42
[2022-03-09 09:52] LABS: MANUAL DIFF FLAG NO
[2022-03-09 09:55] LABS: Basophils Percent Auto 0.5 % (0-2); Eosinophils Absolute Auto 0.2 X10*3/uL (0.0-0.4); Eosinophils Percent Auto 2.5 % (0-4); Imm Gran Abs Auto 0.12 X10*3/uL (0.00-0.03); Imm Gran Pct Auto 1.4 % (0.0-0.4); Lymphocytes Absolute Auto 1.6 X10*3/uL (1.2-4.9); Lymphocytes Percent Auto 19.1 % (20-40); Mean Corpuscular Hemoglobin 30.5 pg (27.0-33.0); Mean Corpuscular Volume 89.5 fL (80.0-98.0); Mean Platelet Volume 10.6 fL (9.4-12.4); Monocytes Absolute Auto 0.8 X10*3/uL (0.1-1.2); Monocytes Percent Auto 9.9 % (2-11); Neutrophils Absolute Auto 5.6 x10*3/uL (2.0-8.3); Neutrophils Percent Auto 66.6 % (45-73); Platelet Count 271 X10*3/uL (160-400); Red Blood Count 5.25 X10*6/uL (4.60-5.80); White Blood Count 8.4 X10*3/uL (4.8-10.8)
[2022-03-09 09:56] LABS: Appearance Urine Clear; Color Urine Yellow; Glucose Urine UA Negative (Negative); Leukocyte Esterase Urine Negative (Negative); Nitrite Urine Negative (Negative); PH 5.5 (5.0-9.0); Specific Gravity - Urine 1.015 (1.005-1.025); Urine Blood Negative (Negative); Urine Ketones Negative (Negative); Urine Protein Negative (Neg-Trace)
[2022-03-09 10:02] LABS: IDNOW Serial# 6674DD1D; Strep A Nucleic Acid Negative (Negative)
[2022-03-09 10:09] LABS: Alanine Aminotransferase 17 U/L (0-40); Albumin Level 4.1 g/dL (3.5-5.0); Alkaline Phosphatase 115 U/L (39-117); Anion Gap 11 (12-20); Aspartate Amino Transferase 14 U/L (5-37); Bilirubin Direct 0.2 mg/dL (0.0-0.5); Bilirubin Total 0.6 mg/dL (0.0-1.0); Blood Urea Nitrogen 18 mg/dL (9-16); Calcium 9.2 mg/dL (8.4-10.2); Carbon Dioxide 25 mmol/L (22-29); Chloride 106 mmol/L (96-108); Estimated Glomerular Filt Rate > 60; Glucose Random 93 mg/dL (60-115); Lipase 54 U/L (8-78); Magnesium 2.3 mg/dL (1.6-2.6); Potassium 4.6 mmol/L (3.3-5.1); Sodium 137 mmol/L (135-145); Total Protein 7.1 g/dL (6.5-8.0)
[2022-03-09 11:22] VITALS: BP 135/85; PULSE 88; RESP 16; TEMP 36.2; O2SAT 93
== END 2022-03-09 11:42 | disposition home or self-care (01) ==
PROVIDERS: Physician Assistant; Emergency Provider Emergency Medicine; PCP Family Medicine
DX: R10.13 Epigastric pain (principal); J02.9 Acute pharyngitis, unspecified; R10.31 Right lower quadrant pain; F17.210 Nicotine dependence, cigarettes, uncomplicated; Z71.6 Tobacco abuse counseling; Z79.899 Other long term (current) drug therapy
CPT/HCPCS: 36415; 74176; 80048; 80076; 81003; 83690; 83735; 85025; 87651; 99283; 99284

== ENCOUNTER 2022-03-22 07:40 | Outpatient (REF) | payer MEDICAID, SELFPAY | END 2022-03-22 07:41 | disposition home or self-care (01) | LOC: HO.MDS 07:40 | PROVIDERS: Visit Provider Internal Medicine Pulmonary Disease | DX: J45.50 Severe persistent asthma, uncomplicated (principal) | CPT/HCPCS: 96372; J2357 ==

== ENCOUNTER 2022-03-28 09:10 | Emergency (ER) | payer MEDICAID, SELFPAY ==
--- NOTE | ~2022-03-28 | XR_ITS ---
EXAMINATION: XR CHEST CLINICAL INFORMATION: Cough. COMPARISON: 02/13/2022 chest radiograph. TECHNIQUE: Frontal view of the chest was obtained. FINDINGS: No significant abnormality is noted involving the heart, lungs, mediastinum, bony thorax or soft tissues. Cervical spine anterior fusion plate in good position without abnormality. XR/XR chest 1V IMPRESSION: No acute cardiopulmonary process.
[2022-03-28 09:13] VITALS: BP 142/91; PULSE 108; RESP 16; TEMP 36.8; O2SAT 98; BMI 32.3
--- NOTE | 2022-03-28 09:19 | ECG_ITS ---
Test Reason : CHEST PAIN Blood Pressure : / mmHG Vent. Rate : 102 BPM Atrial Rate : 102 BPM P-R Int : 138 ms QRS Dur : 078 ms QT Int : 334 ms P-R-T Axes : 061 014 031 degrees QTc Int : 435 ms Sinus tachycardia Otherwise normal ECG When compared with ECG of 21-NOV-2021 08:33, No significant change was found Referred By: Malik Viera Electronically Signed By:JULEE AVENDAÑO MD
--- NOTE | 2022-03-28 09:20 | ED.GENADULT ---
HPI - General Adult General Chief complaint: General Medical Stated complaint: CP , Swollen Throat, asthma Time Seen by Provider: 03/28/22 09:18 Source: patient Mode of arrival: ambulatory Limitations: no limitations History of Present Illness HPI narrative: 52-year-old male presents emergency room complaining of a sore throat he states he is vaccinated for COVID and flu he denies any sick contacts but states he has been having sore throat for the past day states he also has some chest congestion but has no cough he denies fevers or chills he does have history of asthma and is a smoker but has no cough. Denies any fevers chills nausea vomiting or diarrhea. Onset (ago): day(s) Related Data Home Medications Medication Instructions Recorded Confirmed pregabalin 150 mg capsule (Lyrica) 150 mg PO BID 11/26/19 08/31/21 montelukast 10 mg tablet 1 tab PO BEDTIME 09/14/20 08/31/21 acetaminophen 500 mg tablet 1 tab PO Q6H PRN Headache 09/22/20 08/31/21 ipratropium 20 mcg-albuterol 100 1 - 2 puff PO QID 09/22/20 08/31/21 mcg/actuation mist for inhalation (Combivent Respimat) amlodipine 10 mg tablet 1 tab PO DAILY 08/31/21 08/31/21 loratadine 10 mg tablet 1 tab PO DAILY 08/31/21 08/31/21 Previous Rx's Medication Instructions Recorded ipratropium 0.5 mg-albuterol 3 mg 3 ml inhalation Q6H PRN shortness 10/20/20 (2.5 mg base)/3 mL nebulization of breath or wheezing #15 mL soln cyclobenzaprine 10 mg tablet 10 mg PO TID PRN muscle spasm #14 10/26/20 tabs omalizumab 150 mg subcutaneous 225 mg subcut Q2W 28 days #3 ea 12/11/20 solution (Xolair) albuterol sulfate 90 mcg/actuation 1 inh inhalation QID PRN shortness 05/20/21 aerosol inhaler of breath or wheezing #6.7 grams fluticasone propionate 115 2 puff inhalation Q12H 30 days #1 06/10/21 mcg-salmeterol 21 mcg/actuation ea HFA inhaler (Advair HFA) albuterol sulfate 1.25 mg/3 mL 1.25 mg (3 mL) inhalation QID PRN 11/21/21 solution for nebulization shortness of breath or wheezing #75 mL cefpodoxime 200 mg tablet 200 mg PO BID #10 tabs 11/21/21 codeine 10 mg-guaifenesin 100 mg/5 10 ml PO Q6H PRN cough #237 mL 02/13/22 mL oral liquid oseltamivir 75 mg capsule (Tamiflu) 75 mg PO BID 5 days #10 caps 02/13/22 prednisone 20 mg tablet 40 mg PO DAILY #10 tabs 02/13/22 acetaminophen 500 mg tablet 500 mg PO Q6H PRN fever or pain 03/09/22 (Tylenol Extra Strength) #14 tabs cyclobenzaprine 5 mg tablet 5 mg PO Q8H PRN pain (scale score 03/09/22 7-10) 5 days #14 tabs lidocaine 5 % topical patch 1 patch topical DAILY PRN pain #30 03/09/22 (Lidoderm) ea acetaminophen 325 mg tablet 325 mg PO QID PRN pain #90 tabs 03/28/22 (Tylenol) benzonatate 100 mg capsule 100 mg PO BID PRN cough #20 caps 03/28/22 Allergies Allergy/AdvReac Type Severity Reaction Status Date / Time Iodinated Contrast Media Allergy Severe Unknown Verified 03/28/22 09:13 ibuprofen [From MOTRIN] Allergy Unknown KIDNEY Verified 03/28/22 09:13 ISSUES mushroom AdvReac Mild VOMITING Verified 03/28/22 09:13 [facility] Past Medical History 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 Arthritis Asthma Asthma with exacerbation Hypertension Surgical History H/O kidney removal H/O neck surgery History of unilateral nephrectomy Previous back surgery Family History Family History Mother Hypertension Asthma Father Medical history unknown Social History Social History Household Members: None Housing: House Do you presently have visiting nurse or other home services: No Alcohol intake: current Alcohol intake frequency: does not drink Patient Tobacco Use Status: Current everyday Tobacco user Tobacco use type: Cigarette Cigarettes Per Day: 4 Years Smoked: 20 years e-Cigarette/Vaping Use: Former Use Second Hand Smoke Exposure: No Advance Directives: No Advance Directives Information Provided: Yes service: No Current occupational status: employed Physical Exam ED Vital Signs: Vital Signs - 24 hr 03/28/22 09:13 03/28/22 10:45 Temperature 98.3 F 98.9 F Pulse Rate 108 H 91 Respiratory Rate 16 14 Blood Pressure 142/91 H 138/86 Pulse Oximetry 98 98 Oxygen Delivery Method Room Air Room Air BMI result Body Mass Index 32.3 Medications Administered Discontinued Medications Generic Name Dose Route Start Last Admin Trade Name Freq PRN Reason Stop Dose Admin Acetaminophen 650 mg 03/28/22 09:18 03/28/22 10:08 Acetaminophen 325 Mg Tablet PO 03/28/22 09:19 650 mg ONCE ONE Administration Benzonatate 100 mg 03/28/22 09:23 03/28/22 10:08 Benzonatate 100 Mg Capsule PO 03/28/22 09:24 100 mg ONCE ONE Administration Sodium Chloride 1,000 mls @ 999 mls/hr 03/28/22 09:30 03/28/22 10:08 Ns IV 03/28/22 10:30 999 mls/hr .Q1H1M JUAN Administration Prednisone 60 mg 03/28/22 09:18 03/28/22 10:07 Prednisone 20 Mg Tablet PO 03/28/22 09:19 60 mg ONCE ONE Administration Medical Decision Making Medical Decision Making [facility] Narrative: Concern for viral infection I will give patient Tylenol prednisone Tessalon I will check or COVID flu RSV strep and mono. 1121 Patient is negative for covid flu and rs and mono. He is sleeping comfortably in the room. I will send home. Differential Diagnosis Differential Diagnoses: The differential diagnosis associated with the presentation includes COVID influenza strep mononucleosis or other viral infection patient is not toxic) normal vitals Admission/Observation Consideration of admission/observation: Escalation of care including admission/observation considered Lab Data [facility] Lab Attestation statement: I reviewed the patient's lab results. 03/28/22 09:42 03/28/22 09:42 Labs: Lab Results 03/28/22 03/28/22 03/28/22 Range/Units 09:42 09:42 09:42 WBC 12.7 H (4.8-10.8) X10*3/uL RBC 5.01 (4.60-5.80) X10*6/uL Hgb 15.3 (14.0-18.0) g/dl Hct 45.2 (42.0-52.0) % MCV 90.2 (80.0-98.0) fL MCH 30.5 (27.0-33.0) pg MCHC 33.8 (31.0-36.0) g/dl RDW 13.3 (11.0-16.0) % Plt Count 266 (160-400) X10*3/uL MPV 10.3 (9.4-12.4) fL Immature Gran % (Auto) 2.4 H (0.0-0.4) % Neut % (Auto) 74.7 H (45-73) % Lymph % (Auto) 12.3 L (20-40) % [place] % (Auto) 10.2 (2-11) % Eos % (Auto) 0.2 (0-4) % Baso % (Auto) 0.2 (0-2) % Lymph # (Auto) 1.6 (1.2-4.9) X10*3/uL [place] # (Auto) 1.3 H (0.1-1.2) X10*3/uL Eos # (Auto) 0.0 (0.0-0.4) X10*3/uL Baso # (Auto) 0.0 (0.0-0.2) X10*3/uL Abs Immat Gran (auto) 0.31 H (0.00-0.03) X10*3/uL Absolute Neuts (auto) 9.4 H (2.0-8.3) x10*3/uL Absolute Nucleated RBC 0.000 (0.0-0.012) X10*3/uL Nucleated RBC % (auto) 0.0 (0.0-0.2) /100WBC Sodium 136 (135-145) mmol/L Potassium 4.0 (3.3-5.1) mmol/L Chloride 108 (96-108) mmol/L Carbon Dioxide 18 L (22-29) mmol/L Anion Gap 14 (12-20) BUN 27 H (9-16) mg/dL Creatinine 0.91 (0.5-1.4) mg/dL Estim Creat Clear Calc 97.8 Estimated GFR > 60 Random Glucose 103 (60-115) mg/dL Calcium 8.9 (8.4-10.2) mg/dL Monoscreen (Negative) Influenza Type A (PCR) NEGATIVE (Negative) Influenza Type B (PCR) NEGATIVE (Negative) RSV RNA Qual (PCR) NEGATIVE (Negative) SARS-CoV-2 RNA (RT-PCR) NEGATIVE (Negative) S. pyogenes GrpA CONRADO (Negative) 03/28/22 03/28/22 Range/Units 09:42 09:44 WBC (4.8-10.8) X10*3/uL RBC (4.60-5.80) X10*6/uL Hgb (14.0-18.0) g/dl Hct (42.0-52.0) % MCV (80.0-98.0) fL MCH (27.0-33.0) pg MCHC (31.0-36.0) g/dl RDW (11.0-16.0) % Plt Count (160-400) X10*3/uL MPV (9.4-12.4) fL Immature Gran % (Auto) (0.0-0.4) % Neut % (Auto) (45-73) % Lymph % (Auto) (20-40) % [place] % (Auto) (2-11) % Eos % (Auto) (0-4) % Baso % (Auto) (0-2) % Lymph # (Auto) (1.2-4.9) X10*3/uL [place] # (Auto) (0.1-1.2) X10*3/uL Eos # (Auto) (0.0-0.4) X10*3/uL Baso # (Auto) (0.0-0.2) X10*3/uL Abs Immat Gran (auto) (0.00-0.03) X10*3/uL Absolute Neuts (auto) (2.0-8.3) x10*3/uL Absolute Nucleated RBC (0.0-0.012) X10*3/uL Nucleated RBC % (auto) (0.0-0.2) /100WBC Sodium (135-145) mmol/L Potassium (3.3-5.1) mmol/L Chloride (96-108) mmol/L Carbon Dioxide (22-29) mmol/L Anion Gap (12-20) BUN (9-16) mg/dL Creatinine (0.5-1.4) mg/dL Estim Creat Clear Calc Estimated GFR Random Glucose (60-115) mg/dL Calcium (8.4-10.2) mg/dL Monoscreen Negative (Negative) Influenza Type A (PCR) (Negative) Influenza Type B (PCR) (Negative) RSV RNA Qual (PCR) (Negative) SARS-CoV-2 RNA (RT-PCR) (Negative) S. pyogenes GrpA CONRADO Negative (Negative) Independent Interpretation I performed an independent interpretation of an: EKG Interpretation: Rate 102 sinus tachycardia no signs of ischemia no change from previous Discharge Plan Discharge Clinical Impression: Pharyngitis, Chest congestion Patient Disposition: Home, Self-Care Instructions: Pleurisy (ED), Pharyngitis (ED), Upper Respiratory Infection (ED) Additional Instructions: Your flu covid rsv strept and mono were all negative. This is likely a viral issue that should resolve. I will send you home with robert alvarez tylenol and ibuprofen as needed for pain. Prescriptions: New acetaminophen [Tylenol] 325 mg tablet 325 mg PO QID PRN (Reason: pain) Qty: 90 0RF benzonatate 100 mg capsule 100 mg PO BID PRN (Reason: cough) Qty: 20 0RF No Action Xolair 150 mg recon soln 225 mg subcut Q2W 28 Days Qty: 3 12RF Rx Instructions: requires multiple injection sites; do not exceed 150 mg per injection site acetaminophen 500 mg tablet 1 tab PO Q6H PRN (Reason: Headache) Combivent Respimat 20-100 mcg/actuation mist 1 - 2 puff PO QID ipratropium-albuterol 0.5 mg-3 mg(2.5 mg base)/3 mL solution for nebulization 3 ml inhalation Q6H PRN (Reason: shortness of breath or wheezing) Qty: 15 0RF pregabalin [Lyrica] 150 mg Capsule 150 mg PO BID montelukast 10 mg tablet 1 tab PO BEDTIME cyclobenzaprine 10 mg tablet 10 mg PO TID PRN (Reason: muscle spasm) Qty: 14 0RF albuterol sulfate 1.25 mg/3 mL solution for nebulization 1.25 mg inhalation QID PRN (Reason: shortness of breath or wheezing) Qty: 75 0RF cefpodoxime 200 mg tablet 200 mg PO BID Qty: 10 0RF Rx Instructions: must administer with a meal/food prednisone 20 mg tablet 40 mg PO DAILY Qty: 10 0RF codeine-guaifenesin 10-100 mg/5 mL liquid 10 ml PO Q6H PRN (Reason: cough) Qty: 237 0RF oseltamivir [Tamiflu] 75 mg capsule 75 mg PO BID 5 Days Qty: 10 0RF acetaminophen [Tylenol Extra Strength] 500 mg tablet 500 mg PO Q6H PRN (Reason: fever or pain) Qty: 14 0RF lidocaine [Lidoderm] 5 % adhesive patch,medicated 1 patch topical DAILY MDD remove after 12 hours PRN (Reason: pain) Qty: 30 0RF Rx Instructions: leave on most painful area for up to 12 hrs cyclobenzaprine 5 mg tablet 5 mg PO Q8H PRN (Reason: pain (scale score 7-10)) 5 Days Qty: 14 0RF albuterol sulfate 90 mcg/actuation HFA aerosol inhaler 1 inh inhalation QID PRN (Reason: shortness of breath or wheezing) Qty: 6.7 0RF amlodipine 10 mg tablet 1 tab PO DAILY loratadine 10 mg tablet 1 tab PO DAILY Advair HFA 115-21 mcg/actuation HFA aerosol inhaler 2 puff inhalation Q12H 30 Days Qty: 1 6RF
[2022-03-28 09:46] LABS: MANUAL DIFF FLAG NO
[2022-03-28 09:48] LABS: Basophils Percent Auto 0.2 % (0-2); Eosinophils Percent Auto 0.2 % (0-4); Hematocrit 45.2 % (42.0-52.0); Hemoglobin 15.3 g/dl (14.0-18.0); Imm Gran Abs Auto 0.31 X10*3/uL (0.00-0.03); Imm Gran Pct Auto 2.4 % (0.0-0.4); Lymphocytes Absolute Auto 1.6 X10*3/uL (1.2-4.9); Lymphocytes Percent Auto 12.3 % (20-40); Mean Corpuscular HGB Conc 33.8 g/dl (31.0-36.0); Mean Corpuscular Hemoglobin 30.5 pg (27.0-33.0); Mean Corpuscular Volume 90.2 fL (80.0-98.0); Mean Platelet Volume 10.3 fL (9.4-12.4); Monocytes Absolute Auto 1.3 X10*3/uL (0.1-1.2); Monocytes Percent Auto 10.2 % (2-11); Neutrophils Absolute Auto 9.4 x10*3/uL (2.0-8.3); Neutrophils Percent Auto 74.7 % (45-73); Platelet Count 266 X10*3/uL (160-400); Red Blood Count 5.01 X10*6/uL (4.60-5.80); Red Cell Distribution Width 13.3 % (11.0-16.0); White Blood Count 12.7 X10*3/uL (4.8-10.8)
[2022-03-28 10:02] LABS: IDNOW Serial# 6674DD1D; Strep A Nucleic Acid Negative (Negative)
[2022-03-28] MEDS: predniSONE 20 MG TABLET 60 MG PO (10:07)
[2022-03-28] MEDS: 0.9 % Sodium Chloride 1,000 ML 999 ML IV (10:08)
[2022-03-28] MEDS: Benzonatate 100 MG CAPSULE PO (10:08)
[2022-03-28] MEDS: Acetaminophen 325 MG TABLET 650 MG PO (10:08)
--- NOTE | 2022-03-28 10:22 | PC.NURSE ---
pt is a/o x 4 no sob/aníbal noted lungs - cta. speaks in full sentences. heart sounds - regular. abd soft and non-tender. bs + x 4 quads. non edema noted. pt aware of plan of care.
[2022-03-28 10:25] LABS: Influenza A PCR NEGATIVE (Negative); Influenza B PCR NEGATIVE (Negative); Resp Syncy Virus RNA Qual PCR NEGATIVE (Negative); SARS COV2 PCR INHOUSE NEGATIVE (Negative)
[2022-03-28 10:28] LABS: Anion Gap 14 (12-20); Blood Urea Nitrogen 27 mg/dL (9-16); Calcium 8.9 mg/dL (8.4-10.2); Carbon Dioxide 18 mmol/L (22-29); Chloride 108 mmol/L (96-108); Creatinine Clr Calc Pharmacy 97.8; Estimated Glomerular Filt Rate > 60; Glucose Random 103 mg/dL (60-115); Sodium 136 mmol/L (135-145)
[2022-03-28 10:41] LABS: Monotest Negative (Negative)
[2022-03-28 10:45] VITALS: BP 138/86; PULSE 91; RESP 14; TEMP 37.2; O2SAT 98
== END 2022-03-28 11:38 | disposition home or self-care (01) ==
PROVIDERS: Emergency Provider Student in an Organized Health Care Education/Training Program; PCP Family Medicine
DX: J02.9 Acute pharyngitis, unspecified (principal); R07.89 Other chest pain; F17.210 Nicotine dependence, cigarettes, uncomplicated; Z20.822 Contact with and (suspected) exposure to COVID-19; Z20.828 Contact with and (suspected) exposure to other viral communicable diseases; Z79.899 Other long term (current) drug therapy; Z71.6 Tobacco abuse counseling
CPT/HCPCS: 0241U; 36415; 71045; 80048; 85025; 86308; 87651; 93005; 99284

== ENCOUNTER 2022-04-05 07:46 | Outpatient (REF) | payer MEDICAID, SELFPAY | END 2022-04-05 07:47 | disposition home or self-care (01) | LOC: HO.MDS 07:46 | PROVIDERS: Visit Provider Internal Medicine Pulmonary Disease | DX: J45.50 Severe persistent asthma, uncomplicated (principal) | CPT/HCPCS: 96372; J2357 ==

== ENCOUNTER 2022-04-05 13:38 | Emergency (ER) | payer MEDICAID, SELFPAY | END 2022-04-05 15:38 | disposition left against medical advice (07) | PROVIDERS: Emergency Provider Emergency Medicine; PCP Family Medicine | DX: J02.9 Acute pharyngitis, unspecified (principal); F17.210 Nicotine dependence, cigarettes, uncomplicated ==

== ENCOUNTER 2022-04-06 08:22 | Emergency (ER) | payer MEDICAID, SELFPAY ==
[2022-04-06 08:25] VITALS: BP 167/97; PULSE 107; RESP 20; TEMP 36.6; O2SAT 98; BMI 33.0
[2022-04-06 08:49] LABS: Strep A Nucleic Acid Negative (Negative)
[2022-04-06 09:09] LABS: IDNOW Serial# BCCEAD1C; Influenza A Negative (Negative); Influenza B2 Negative (Negative)
[2022-04-06 09:13] LABS: COVID-19 Test Negative (Negative); IDNOW Serial# 55D5AD1C
--- NOTE | 2022-04-06 09:18 | PC.NURSE ---
patient resting quietly on stretcher. NAD. No resp distress. only c/o sore throat at this time. seen here a few days ago for same compliant. FLU/COVID/STREP negative.
--- NOTE | 2022-04-06 09:19 | ED_ITS ---
HPI - General Adult General Chief complaint: Upper Respiratory Symptoms Stated complaint: Losing voice/Sore throat Time Seen by Provider: 04/06/22 09:18 Source: patient Mode of arrival: ambulatory Limitations: no limitations Related Data Home Medications Medication Instructions Recorded Confirmed pregabalin 150 mg capsule (Lyrica) 150 mg PO BID 11/26/19 08/31/21 montelukast 10 mg tablet 1 tab PO BEDTIME 09/14/20 08/31/21 acetaminophen 500 mg tablet 1 tab PO Q6H PRN Headache 09/22/20 08/31/21 ipratropium 20 mcg-albuterol 100 1 - 2 puff PO QID 09/22/20 08/31/21 mcg/actuation mist for inhalation (Combivent Respimat) amlodipine 10 mg tablet 1 tab PO DAILY 08/31/21 08/31/21 loratadine 10 mg tablet 1 tab PO DAILY 08/31/21 08/31/21 Previous Rx's Medication Instructions Recorded ipratropium 0.5 mg-albuterol 3 mg 3 ml inhalation Q6H PRN shortness 10/20/20 (2.5 mg base)/3 mL nebulization of breath or wheezing #15 mL soln cyclobenzaprine 10 mg tablet 10 mg PO TID PRN muscle spasm #14 10/26/20 tabs omalizumab 150 mg subcutaneous 225 mg subcut Q2W 28 days #3 ea 12/11/20 solution (Xolair) albuterol sulfate 90 mcg/actuation 1 inh inhalation QID PRN shortness 05/20/21 aerosol inhaler of breath or wheezing #6.7 grams fluticasone propionate 115 2 puff inhalation Q12H 30 days #1 06/10/21 mcg-salmeterol 21 mcg/actuation ea HFA inhaler (Advair HFA) albuterol sulfate 1.25 mg/3 mL 1.25 mg (3 mL) inhalation QID PRN 11/21/21 solution for nebulization shortness of breath or wheezing #75 mL cefpodoxime 200 mg tablet 200 mg PO BID #10 tabs 11/21/21 codeine 10 mg-guaifenesin 100 mg/5 10 ml PO Q6H PRN cough #237 mL 02/13/22 mL oral liquid oseltamivir 75 mg capsule (Tamiflu) 75 mg PO BID 5 days #10 caps 02/13/22 prednisone 20 mg tablet 40 mg PO DAILY #10 tabs 02/13/22 acetaminophen 500 mg tablet 500 mg PO Q6H PRN fever or pain 03/09/22 (Tylenol Extra Strength) #14 tabs cyclobenzaprine 5 mg tablet 5 mg PO Q8H PRN pain (scale score 03/09/22 7-10) 5 days #14 tabs lidocaine 5 % topical patch 1 patch topical DAILY PRN pain #30 03/09/22 (Lidoderm) ea acetaminophen 325 mg tablet 325 mg PO QID PRN pain #90 tabs 03/28/22 (Tylenol) benzonatate 100 mg capsule 100 mg PO BID PRN cough #20 caps 03/28/22 Allergies Allergy/AdvReac Type Severity Reaction Status Date / Time Iodinated Contrast Media Allergy Severe Unknown Verified 04/06/22 08:31 ibuprofen [From MOTRIN] Allergy Unknown KIDNEY Verified 04/06/22 08:31 ISSUES mushroom AdvReac Mild VOMITING Verified 04/06/22 08:31 [facility] Past Medical History 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 Arthritis Asthma Asthma with exacerbation Hypertension Surgical History H/O kidney removal H/O neck surgery History of unilateral nephrectomy Previous back surgery Family History Family History Mother Hypertension Asthma Father Medical history unknown Social History Social History Household Members: None Housing: House Do you presently have visiting nurse or other home services: No Alcohol intake: current Alcohol intake frequency: does not drink Patient Tobacco Use Status: Current everyday Tobacco user Tobacco use type: Cigarette Cigarettes Per Day: 4 Years Smoked: 20 years e-Cigarette/Vaping Use: Former Use Second Hand Smoke Exposure: No Advance Directives: No Advance Directives Information Provided: No service: No Current occupational status: employed Physical Exam ED Vital Signs: Vital Signs - 24 hr 04/06/22 08:25 Temperature 97.8 F Pulse Rate 107 H Respiratory Rate 20 Blood Pressure 167/97 H Pulse Oximetry 98 Oxygen Delivery Method Room Air BMI result Body Mass Index 33.0 Medical Decision Making Lab Data Labs: Lab Results 04/06/22 04/06/22 04/06/22 Range/Units 08:30 08:30 08:30 COVID-19 (WESLY) Negative (Negative) COVID-19 Clin Com See Note Influenza Type A (CONRADO) Negative (Negative) Influenza Type B (CONRADO) Negative (Negative) Influenza A & B Note See Note S. pyogenes GrpA CONRADO Negative (Negative) Discharge Plan Discharge Prescriptions: No Action Xolair 150 mg recon soln 225 mg subcut Q2W 28 Days Qty: 3 12RF Rx Instructions: requires multiple injection sites; do not exceed 150 mg per injection site acetaminophen 500 mg tablet 1 tab PO Q6H PRN (Reason: Headache) Combivent Respimat 20-100 mcg/actuation mist 1 - 2 puff PO QID ipratropium-albuterol 0.5 mg-3 mg(2.5 mg base)/3 mL solution for nebulization 3 ml inhalation Q6H PRN (Reason: shortness of breath or wheezing) Qty: 15 0RF pregabalin [Lyrica] 150 mg Capsule 150 mg PO BID montelukast 10 mg tablet 1 tab PO BEDTIME cyclobenzaprine 10 mg tablet 10 mg PO TID PRN (Reason: muscle spasm) Qty: 14 0RF albuterol sulfate 1.25 mg/3 mL solution for nebulization 1.25 mg inhalation QID PRN (Reason: shortness of breath or wheezing) Qty: 75 0RF cefpodoxime 200 mg tablet 200 mg PO BID Qty: 10 0RF Rx Instructions: must administer with a meal/food prednisone 20 mg tablet 40 mg PO DAILY Qty: 10 0RF codeine-guaifenesin 10-100 mg/5 mL liquid 10 ml PO Q6H PRN (Reason: cough) Qty: 237 0RF oseltamivir [Tamiflu] 75 mg capsule 75 mg PO BID 5 Days Qty: 10 0RF acetaminophen [Tylenol Extra Strength] 500 mg tablet 500 mg PO Q6H PRN (Reason: fever or pain) Qty: 14 0RF lidocaine [Lidoderm] 5 % adhesive patch,medicated 1 patch topical DAILY MDD remove after 12 hours PRN (Reason: pain) Qty: 30 0RF Rx Instructions: leave on most painful area for up to 12 hrs cyclobenzaprine 5 mg tablet 5 mg PO Q8H PRN (Reason: pain (scale score 7-10)) 5 Days Qty: 14 0RF acetaminophen [Tylenol] 325 mg tablet 325 mg PO QID PRN (Reason: pain) Qty: 90 0RF benzonatate 100 mg capsule 100 mg PO BID PRN (Reason: cough) Qty: 20 0RF albuterol sulfate 90 mcg/actuation HFA aerosol inhaler 1 inh inhalation QID PRN (Reason: shortness of breath or wheezing) Qty: 6.7 0RF amlodipine 10 mg tablet 1 tab PO DAILY loratadine 10 mg tablet 1 tab PO DAILY Advair HFA 115-21 mcg/actuation HFA aerosol inhaler 2 puff inhalation Q12H 30 Days Qty: 1 6RF
--- NOTE | 2022-04-06 09:23 | ED.URI ---
HPI - URI/Sore Throat General Chief Complaint: Upper Respiratory Symptoms Stated Complaint: Losing voice/Sore throat Time Seen by Provider: 04/06/22 09:18 Source: patient Mode of arrival: ambulatory Limitations: no limitations History of Present Illness HPI Narrative: 52 yo male with history of mild intermittent asthma, seasonal allergies, kidney stones, arthritis who presents to the ER for a sore throat and losing his voice. He states he 1st got sick with a chest cold almost 2 weeks ago. He was seen here on 03/28 when he tested negative for Strep, Flu, COVID, mono and RSV. He was given meds for his cough. He states his cough got better but his sore throat persisted and he soon after lost his voice. He has tried tea, hot water with lemon and OTC remedies. He reports his voice is still not normal and he is worried. He denies fever, SOB, chest pain, trouble swallowing or neck swelling. He continues to smoke cigarettes but has been trying to cut down. MD elicited complaint: sore throat Pertinent past history: asthma Onset (ago): week(s) Consistency: constant Severity: moderate Description of mucous: clear Able to tolerate fluids by mouth: Yes Exacerbating factors: swallowing and speaking Relieving factors: nothing Associated symptoms: voice changes, sore throat and cough Treatments prior to arrival: none Related Data Home Medications Medication Instructions Recorded Confirmed pregabalin 150 mg capsule (Lyrica) 150 mg PO BID 11/26/19 08/31/21 montelukast 10 mg tablet 1 tab PO BEDTIME 09/14/20 08/31/21 acetaminophen 500 mg tablet 1 tab PO Q6H PRN Headache 09/22/20 08/31/21 ipratropium 20 mcg-albuterol 100 1 - 2 puff PO QID 09/22/20 08/31/21 mcg/actuation mist for inhalation (Combivent Respimat) amlodipine 10 mg tablet 1 tab PO DAILY 08/31/21 08/31/21 loratadine 10 mg tablet 1 tab PO DAILY 08/31/21 08/31/21 Previous Rx's Medication Instructions Recorded ipratropium 0.5 mg-albuterol 3 mg 3 ml inhalation Q6H PRN shortness 10/20/20 (2.5 mg base)/3 mL nebulization of breath or wheezing #15 mL soln cyclobenzaprine 10 mg tablet 10 mg PO TID PRN muscle spasm #14 10/26/20 tabs omalizumab 150 mg subcutaneous 225 mg subcut Q2W 28 days #3 ea 12/11/20 solution (Xolair) albuterol sulfate 90 mcg/actuation 1 inh inhalation QID PRN shortness 05/20/21 aerosol inhaler of breath or wheezing #6.7 grams fluticasone propionate 115 2 puff inhalation Q12H 30 days #1 06/10/21 mcg-salmeterol 21 mcg/actuation ea HFA inhaler (Advair HFA) albuterol sulfate 1.25 mg/3 mL 1.25 mg (3 mL) inhalation QID PRN 11/21/21 solution for nebulization shortness of breath or wheezing #75 mL cefpodoxime 200 mg tablet 200 mg PO BID #10 tabs 11/21/21 codeine 10 mg-guaifenesin 100 mg/5 10 ml PO Q6H PRN cough #237 mL 02/13/22 mL oral liquid oseltamivir 75 mg capsule (Tamiflu) 75 mg PO BID 5 days #10 caps 02/13/22 prednisone 20 mg tablet 40 mg PO DAILY #10 tabs 02/13/22 acetaminophen 500 mg tablet 500 mg PO Q6H PRN fever or pain 03/09/22 (Tylenol Extra Strength) #14 tabs cyclobenzaprine 5 mg tablet 5 mg PO Q8H PRN pain (scale score 03/09/22 7-10) 5 days #14 tabs lidocaine 5 % topical patch 1 patch topical DAILY PRN pain #30 03/09/22 (Lidoderm) ea acetaminophen 325 mg tablet 325 mg PO QID PRN pain #90 tabs 03/28/22 (Tylenol) benzonatate 100 mg capsule 100 mg PO BID PRN cough #20 caps 03/28/22 Allergies Allergy/AdvReac Type Severity Reaction Status Date / Time Iodinated Contrast Media Allergy Severe Unknown Verified 04/06/22 08:31 ibuprofen [From MOTRIN] Allergy Unknown KIDNEY Verified 04/06/22 08:31 ISSUES mushroom AdvReac Mild VOMITING Verified 04/06/22 08:31 Review of Systems Review of Systems: Yes all other systems are reviewed and are negative PMFSH Past Medical History 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 Arthritis Asthma Asthma with exacerbation Hypertension Surgical History H/O kidney removal H/O neck surgery History of unilateral nephrectomy Previous back surgery Family History Family History Mother Hypertension Asthma Father Medical history unknown Social History Social History Household Members: None Housing: House Do you presently have visiting nurse or other home services: No Alcohol intake: current Alcohol intake frequency: does not drink Patient Tobacco Use Status: Current everyday Tobacco user Tobacco use type: Cigarette Cigarettes Per Day: 4 Years Smoked: 20 years e-Cigarette/Vaping Use: Former Use Second Hand Smoke Exposure: No Advance Directives: No Advance Directives Information Provided: No service: No Current occupational status: employed Physical Exam Vital Signs: Vital Signs: Last Vital Signs Temp 97.8 F 04/06/22 08:25 Pulse 107 H 04/06/22 08:25 Resp 20 04/06/22 08:25 BP 167/97 H 04/06/22 08:25 Pulse Ox 98 04/06/22 08:25 O2 Del Method 04/06/22 08:25 BMI result Body Mass Index 33.0 Appearance: Alert. Oriented X3. No acute distress. Eyes: Pupils equal, round and reactive to light. ENT: Pharynx with mild posterior pharyngeal erythema, moist mucus membranes. normal tonsils and uvula. normal TMs bilaterally. Neck: Normal inspection. Neck supple. No LAD. Trachea midline CVS: Normal heart rate and rhythm. Pulses normal. Respiratory: No respiratory distress. Breath sounds normal. Skin: Skin warm and dry. Normal skin color. Normal skin turgor. No rashes. Extremities: No lower extremity edema. Neuro: Oriented X 3. Grossly normal, nonfocal Course Course Course Narrative: 52 yo male presenting with sore throat and losing his voice, started about 10-14 days ago. Cough and other URI symptoms are improved but the voice changes persist. He continues to smoke. VSS today and exam is unremarkable. He appears well. COVID, Flu, Strep tests today are negative. We discussed importance of voice rest, smoking cessation and roles of other remedies. Stable for d/c home with supportive care and outpatient follow up. Medical Decision Making Differential Diagnosis Differential Diagnoses: The differential diagnosis associated with the presentation includes laryngitis, viral pharyngitis, strep throat, vocal cord dysfunction, vocal cord mass/polyp, less likely malignancy Lab Data MDM Lab Attestation statement: I reviewed the patient's lab results. Labs: Lab Results 04/06/22 04/06/22 04/06/22 Range/Units 08:30 08:30 08:30 COVID-19 ([facility]) Negative (Negative) COVID-19 Clin Com See Note Influenza Type A ([facility]) Negative (Negative) Influenza Type B ([facility]) Negative (Negative) Influenza A & B Note See Note S. pyogenes GrpA [facility] Negative (Negative) External Record Review External record reviewed: Outpatient record, Prior outpatient labs and Prior outpatient radiology Tests considered The following testing was considered but not selected: labs and imaging considered, not indicated at this time Chronic Conditions Patient?s care impacted by: Other (smoking) Critical Care Time Critical Care Time Critical Care Time: No Discharge Plan Discharge Clinical Impression: Laryngitis Patient Disposition: Home, Self-Care Instructions: Laryngitis (ED) Additional Instructions: You tested negative for COVID-19, influenza and strep throat today. You have laryngitis which will resolve with time and voice rest. Do your best to stop smoking Rest and drink plenty of fluids Follow up with your doctor as needed. Prescriptions: No Action Xolair 150 mg recon soln 225 mg subcut Q2W 28 Days Qty: 3 12RF Rx Instructions: requires multiple injection sites; do not exceed 150 mg per injection site acetaminophen 500 mg tablet 1 tab PO Q6H PRN (Reason: Headache) Combivent Respimat 20-100 mcg/actuation mist 1 - 2 puff PO QID ipratropium-albuterol 0.5 mg-3 mg(2.5 mg base)/3 mL solution for nebulization 3 ml inhalation Q6H PRN (Reason: shortness of breath or wheezing) Qty: 15 0RF pregabalin [Lyrica] 150 mg Capsule 150 mg PO BID montelukast 10 mg tablet 1 tab PO BEDTIME cyclobenzaprine 10 mg tablet 10 mg PO TID PRN (Reason: muscle spasm) Qty: 14 0RF albuterol sulfate 1.25 mg/3 mL solution for nebulization 1.25 mg inhalation QID PRN (Reason: shortness of breath or wheezing) Qty: 75 0RF cefpodoxime 200 mg tablet 200 mg PO BID Qty: 10 0RF Rx Instructions: must administer with a meal/food prednisone 20 mg tablet 40 mg PO DAILY Qty: 10 0RF codeine-guaifenesin 10-100 mg/5 mL liquid 10 ml PO Q6H PRN (Reason: cough) Qty: 237 0RF oseltamivir [Tamiflu] 75 mg capsule 75 mg PO BID 5 Days Qty: 10 0RF acetaminophen [Tylenol Extra Strength] 500 mg tablet 500 mg PO Q6H PRN (Reason: fever or pain) Qty: 14 0RF lidocaine [Lidoderm] 5 % adhesive patch,medicated 1 patch topical DAILY MDD remove after 12 hours PRN (Reason: pain) Qty: 30 0RF Rx Instructions: leave on most painful area for up to 12 hrs cyclobenzaprine 5 mg tablet 5 mg PO Q8H PRN (Reason: pain (scale score 7-10)) 5 Days Qty: 14 0RF acetaminophen [Tylenol] 325 mg tablet 325 mg PO QID PRN (Reason: pain) Qty: 90 0RF benzonatate 100 mg capsule 100 mg PO BID PRN (Reason: cough) Qty: 20 0RF albuterol sulfate 90 mcg/actuation HFA aerosol inhaler 1 inh inhalation QID PRN (Reason: shortness of breath or wheezing) Qty: 6.7 0RF amlodipine 10 mg tablet 1 tab PO DAILY loratadine 10 mg tablet 1 tab PO DAILY Advair HFA 115-21 mcg/actuation HFA aerosol inhaler 2 puff inhalation Q12H 30 Days Qty: 1 6RF Referrals: Mirtha Lunsford MD [Primary Care Provider] -
== END 2022-04-06 09:41 | disposition home or self-care (01) ==
PROVIDERS: Emergency Provider Emergency Medicine; PCP Family Medicine
DX: J04.0 Acute laryngitis (principal); R05.9 Cough, unspecified; Z20.822 Contact with and (suspected) exposure to COVID-19; Z20.828 Contact with and (suspected) exposure to other viral communicable diseases; Z79.899 Other long term (current) drug therapy; F17.210 Nicotine dependence, cigarettes, uncomplicated; Z71.6 Tobacco abuse counseling
CPT/HCPCS: 87502; 87635; 87651; 99282; 99283

== ENCOUNTER 2022-04-19 07:19 | Outpatient (REF) | payer MEDICAID, SELFPAY | END 2022-04-19 07:20 | disposition home or self-care (01) | LOC: HO.MDS 07:19 | PROVIDERS: Visit Provider Internal Medicine Pulmonary Disease | DX: J45.50 Severe persistent asthma, uncomplicated (principal) | CPT/HCPCS: 96372; J2357 ==

== ENCOUNTER 2022-05-03 08:24 | Outpatient (REF) | payer MEDICAID, SELFPAY | END 2022-05-03 08:25 | disposition home or self-care (01) | LOC: HO.MDS 08:24 | PROVIDERS: Visit Provider Internal Medicine Pulmonary Disease | DX: J45.50 Severe persistent asthma, uncomplicated (principal) | CPT/HCPCS: 96372; J2357 ==

== ENCOUNTER → 2022-05-11 08:53 | Outpatient (BNVA) | payer MEDICAID, SELFPAY | PROVIDERS: PCP Family Medicine; Visit Provider Internal Medicine Endocrinology, Diabetes & Metabolism | DX: D35.01 Benign neoplasm of right adrenal gland (principal) | CPT/HCPCS: 99212 ==

== ENCOUNTER 2022-05-17 08:01 | Outpatient (REF) | payer MEDICAID, SELFPAY | END 2022-05-17 08:02 | disposition home or self-care (01) | LOC: HO.MDS 08:01 | PROVIDERS: Visit Provider Internal Medicine Pulmonary Disease | DX: J45.50 Severe persistent asthma, uncomplicated (principal) | CPT/HCPCS: 96372; J2357 ==

== ENCOUNTER 2022-05-31 07:06 | Outpatient (REF) | payer MEDICAID, SELFPAY | END 2022-05-31 07:07 | disposition home or self-care (01) | LOC: HO.MDS 07:06 | PROVIDERS: Visit Provider Internal Medicine Pulmonary Disease | DX: J45.50 Severe persistent asthma, uncomplicated (principal) | CPT/HCPCS: 96372; J2357 ==

== ENCOUNTER 2022-06-14 07:43 | Outpatient (REF) | payer MEDICAID, SELFPAY | END 2022-06-14 07:44 | disposition home or self-care (01) | LOC: HO.MDS 07:43 | PROVIDERS: Visit Provider Internal Medicine Pulmonary Disease | DX: J45.909 Unspecified asthma, uncomplicated (principal) | CPT/HCPCS: 96372; J2357 ==

== ENCOUNTER 2022-06-23 07:31 | Emergency (ER) | payer MEDICAID, SELFPAY ==
--- NOTE | ~2022-06-23 | XR_ITS ---
EXAMINATION: XR CHEST CLINICAL INFORMATION: Chest pain asthma COMPARISON: Chest radiograph from 03/28/2022 TECHNIQUE: Frontal view of the chest was obtained. FINDINGS: Stable interstitial prominence. Left basilar atelectasis versus scarring. No pneumothorax. Trachea is midline. Cardiac mediastinal silhouette is stable. No large pleural effusion. Osseous structures are intact. Soft tissues are unremarkable. XR/XR chest 1V IMPRESSION: 1. Stable interstitial prominence. 2. Left basilar atelectasis versus scarring.
[2022-06-23 07:33] VITALS: BP 153/93; PULSE 110; RESP 18; TEMP 36; O2SAT 98; BMI 33.9
--- NOTE | 2022-06-23 07:37 | ECG_ITS ---
Test Reason : cp Blood Pressure : / mmHG Vent. Rate : 100 BPM Atrial Rate : 100 BPM P-R Int : 146 ms QRS Dur : 084 ms QT Int : 350 ms P-R-T Axes : 048 020 031 degrees QTc Int : 451 ms Normal sinus rhythm Normal ECG When compared with ECG of 28-MAR-2022 09:29, No significant change was found Referred By: Generic ED Physician Electronically Signed By:JULEE AVENDAÑO MD
--- NOTE | 2022-06-23 07:57 | ED.ASTHMA ---
HPI - Asthma General Chief Complaint: Upper Respiratory Symptoms Stated Complaint: chest pain, cough, asthma, toe issue Time Seen by Provider: 06/23/22 07:50 Source: patient Mode of arrival: ambulatory History of Present Illness HPI Narrative: 52-year-old male who presents with 2 days of persistent 9 time coughing and increased difficulty breathing and has a history of asthma. Patient last took his albuterol inhaler proximal is 0630 this morning. He otherwise denies any body aches, fevers, chills. Related Data Home Medications Medication Instructions Recorded Confirmed pregabalin 150 mg capsule (Lyrica) 150 mg PO BID 11/26/19 05/11/22 montelukast 10 mg tablet 1 tab PO BEDTIME 09/14/20 05/11/22 acetaminophen 500 mg tablet 1 tab PO Q6H PRN Headache 09/22/20 05/11/22 ipratropium 20 mcg-albuterol 100 1 - 2 puff PO QID 09/22/20 05/11/22 mcg/actuation mist for inhalation (Combivent Respimat) loratadine 10 mg tablet 1 tab PO DAILY 08/31/21 05/11/22 lisinopril 10 mg tablet 10 mg PO DAILY 05/11/22 05/11/22 Previous Rx's Medication Instructions Recorded ipratropium 0.5 mg-albuterol 3 mg 3 ml inhalation Q6H PRN shortness 10/20/20 (2.5 mg base)/3 mL nebulization of breath or wheezing #15 mL soln cyclobenzaprine 10 mg tablet 10 mg PO TID PRN muscle spasm #14 10/26/20 tabs omalizumab 150 mg subcutaneous 225 mg subcut Q2W 28 days #3 ea 12/11/20 solution (Xolair) albuterol sulfate 90 mcg/actuation 1 inh inhalation QID PRN shortness 05/20/21 aerosol inhaler of breath or wheezing #6.7 grams fluticasone propionate 115 2 puff inhalation Q12H 30 days #1 06/10/21 mcg-salmeterol 21 mcg/actuation ea HFA inhaler (Advair HFA) albuterol sulfate 1.25 mg/3 mL 1.25 mg (3 mL) inhalation QID PRN 11/21/21 solution for nebulization shortness of breath or wheezing #75 mL cefpodoxime 200 mg tablet 200 mg PO BID #10 tabs 11/21/21 codeine 10 mg-guaifenesin 100 mg/5 10 ml PO Q6H PRN cough #237 mL 02/13/22 mL oral liquid oseltamivir 75 mg capsule (Tamiflu) 75 mg PO BID 5 days #10 caps 02/13/22 acetaminophen 500 mg tablet 500 mg PO Q6H PRN fever or pain 03/09/22 (Tylenol Extra Strength) #14 tabs cyclobenzaprine 5 mg tablet 5 mg PO Q8H PRN pain (scale score 03/09/22 7-10) 5 days #14 tabs lidocaine 5 % topical patch 1 patch topical DAILY PRN pain #30 03/09/22 (Lidoderm) ea acetaminophen 325 mg tablet 325 mg PO QID PRN pain #90 tabs 03/28/22 (Tylenol) benzonatate 100 mg capsule 100 mg PO BID PRN cough #20 caps 03/28/22 dexamethasone 1 mg tablet 1 mg PO ONCE #1 tab 05/04/22 prednisone 50 mg tablet 50 mg PO DAILY 4 days #4 tabs 06/23/22 Allergies Allergy/AdvReac Type Severity Reaction Status Date / Time Iodinated Contrast Media Allergy Severe Unknown Verified 05/11/22 09:03 ibuprofen [From MOTRIN] Allergy Unknown KIDNEY Verified 05/11/22 09:03 ISSUES mushroom AdvReac Mild VOMITING Verified 05/11/22 09:03 amlodipine AdvReac Unknown Swelling Verified 05/11/22 09:03 Review of Systems Review of Systems: Pertinent positives and negatives as stated in [facility] Past Medical History Source: nursing notes reviewed 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 Arthritis Asthma Asthma with exacerbation Hypertension Surgical History H/O kidney removal H/O neck surgery History of unilateral nephrectomy Previous back surgery Family History Family History Mother Hypertension Asthma Father Medical history unknown Social History Social History Household Members: None Housing: House Do you presently have visiting nurse or other home services: No Alcohol intake: current Alcohol intake frequency: does not drink Patient Tobacco Use Status: Current everyday Tobacco user Tobacco use type: Cigarette Cigarettes Per Day: 4 Years Smoked: 20 years e-Cigarette/Vaping Use: Former Use Second Hand Smoke Exposure: No Advance Directives: No service: No Current occupational status: employed Physical Exam Vital Signs: Vital Signs: Last Vital Signs Temp 96.8 F 06/23/22 07:33 Pulse 97 06/23/22 09:08 Resp 20 06/23/22 09:08 BP 153/93 H 06/23/22 07:33 Pulse Ox 98 06/23/22 07:33 O2 Del Method Room Air 06/23/22 07:33 BMI result Body Mass Index 33.9 VITAL SIGNS: Reviewed. GENERAL: Well developed, well nourished, in no acute distress. HEAD: Normocephalic/atraumatic EYES: PERRLA, EOMI EARS: Ext canals without abnormality, TMs non-bulging and non-erythematous NOSE: Nares patent bilateral OROPHARYNX: no oral lesions noted, posterior pharynx clear and non-erythematous without noted tonsillar enlargement/erythema/exudates NECK: Supple, no adenopathy LUNGS: Normal breath sounds. No adventitious sounds or accessory muscle use. SpO2<98> CARDIOVASCULAR: Regular rate and rhythm without noted murmurs, no JVD or lower extremity edema. ABDOMEN: Soft, non-tender, non-distended with bowel sounds. MUSCULOSKELETAL: No tenderness, deformities, or effusions noted on gross inspection. EXTREMITIES: No cyanosis, clubbing or edema. SKIN: Inspection of the skin reveals no rashes NEUROLOGIC: Alert and oriented x 4. Strength and sensation to light touch were grossly intact x 4. Medications Administered Discontinued Medications Generic Name Dose Route Start Last Admin Trade Name Freq PRN Reason Stop Dose Admin Acetaminophen 975 mg 06/23/22 07:54 06/23/22 08:08 Acetaminophen 325 Mg Tablet PO 06/23/22 07:55 975 mg ONCE ONE Administration Albuterol Sulfate 10 mg 06/23/22 07:54 06/23/22 08:14 Albuterol Sulfate (0.083%) 2.5 Mg/3 Ml Vial.Neb INHALE 06/23/22 07:55 10 mg ONCE ONE Administration Albuterol Sulfate 7.5 mg/ 0 mg 06/23/22 08:54 06/23/22 09:06 Albuterol/Ipratropium 3 ml INHALE 06/23/22 08:55 2.5 each ONCE ONE Administration Prednisone 50 mg 06/23/22 07:54 06/23/22 08:08 Prednisone 10 Mg Tablet PO 06/23/22 07:55 50 mg ONCE ONE Administration Medical Decision Making Medical Decision Making MDM Narrative: 52-year-old male with history and clinical presentation most consistent with asthma exacerbation and likely concomitant seasonal allergy symptoms. Low clinical suspicion for any acute cardiopulmonary etiology this patient is not hypoxic and reported shortness of breath is related with deep inspiration. Patient is also a noted cigarette smoker. Review of all investigations and re-evaluation demonstrates that patient is feeling improved in will continue on a short course of steroids. He was given all results and findings and is otherwise discharged home in stable condition. Differential Diagnosis Please see the discussion above Independent Interpretation I performed an independent interpretation of an: EKG Interpretation: Normal sinus rhythm, HR-100, no STEMI, ID/QRS/QTC is within normal limits. Radiology Impression Radiologist Impression: My interpretation is in agreement with radiology's impression of the imaging studies. Discharge Plan Discharge Clinical Impression: Asthma exacerbation Patient Disposition: Home, Self-Care Instructions: Asthma (ED) Additional Instructions: 1. Resume all home medications. Recommend that you start taking daily Flonase (fluticasone) as well as the Claritin that you are taking daily. 2. Please reduce the amount of cigarettes that your smoking daily. 3. Complete the entire course steroids. 4. Follow-up with your primary care provider by calling the office today and scheduling a follow-up appointment. Return to the ER for any worsening symptoms. Prescriptions: New prednisone 50 mg tablet 50 mg PO DAILY 4 Days Qty: 4 0RF No Action Xolair 150 mg recon soln 225 mg subcut Q2W 28 Days Qty: 3 12RF Rx Instructions: requires multiple injection sites; do not exceed 150 mg per injection site dexamethasone 1 mg tablet 1 mg PO ONCE Qty: 1 0RF acetaminophen 500 mg tablet 1 tab PO Q6H PRN (Reason: Headache) Combivent Respimat 20-100 mcg/actuation mist 1 - 2 puff PO QID ipratropium-albuterol 0.5 mg-3 mg(2.5 mg base)/3 mL solution for nebulization 3 ml inhalation Q6H PRN (Reason: shortness of breath or wheezing) Qty: 15 0RF pregabalin [Lyrica] 150 mg Capsule 150 mg PO BID montelukast 10 mg tablet 1 tab PO BEDTIME cyclobenzaprine 10 mg tablet 10 mg PO TID PRN (Reason: muscle spasm) Qty: 14 0RF albuterol sulfate 1.25 mg/3 mL solution for nebulization 1.25 mg inhalation QID PRN (Reason: shortness of breath or wheezing) Qty: 75 0RF cefpodoxime 200 mg tablet 200 mg PO BID Qty: 10 0RF Rx Instructions: must administer with a meal/food codeine-guaifenesin 10-100 mg/5 mL liquid 10 ml PO Q6H PRN (Reason: cough) Qty: 237 0RF oseltamivir [Tamiflu] 75 mg capsule 75 mg PO BID 5 Days Qty: 10 0RF acetaminophen [Tylenol Extra Strength] 500 mg tablet 500 mg PO Q6H PRN (Reason: fever or pain) Qty: 14 0RF lidocaine [Lidoderm] 5 % adhesive patch,medicated 1 patch topical DAILY MDD remove after 12 hours PRN (Reason: pain) Qty: 30 0RF Rx Instructions: leave on most painful area for up to 12 hrs cyclobenzaprine 5 mg tablet 5 mg PO Q8H PRN (Reason: pain (scale score 7-10)) 5 Days Qty: 14 0RF acetaminophen [Tylenol] 325 mg tablet 325 mg PO QID PRN (Reason: pain) Qty: 90 0RF benzonatate 100 mg capsule 100 mg PO BID PRN (Reason: cough) Qty: 20 0RF albuterol sulfate 90 mcg/actuation HFA aerosol inhaler 1 inh inhalation QID PRN (Reason: shortness of breath or wheezing) Qty: 6.7 0RF loratadine 10 mg tablet 1 tab PO DAILY Advair HFA 115-21 mcg/actuation HFA aerosol inhaler 2 puff inhalation Q12H 30 Days Qty: 1 6RF lisinopril 10 mg tablet 10 mg PO DAILY Referrals: Mirtha Lunsford MD [Primary Care Provider] -
[2022-06-23] MEDS: Acetaminophen 325 MG TABLET 975 MG PO (08:08)
[2022-06-23] MEDS: predniSONE 10 MG TABLET 50 MG PO (08:08)
[2022-06-23] MEDS: Albuterol Sulfate (0.083%) 2.5 MG/3 ML VIAL.NEB 10 MG INHALE (08:14)
[2022-06-23 08:20] VITALS: PULSE 102; RESP 28; O2SAT 96
[2022-06-23 09:08] VITALS: PULSE 97; RESP 20
[2022-06-23] MEDS: Albuterol Sulfate 90 MCG 8 GM INHALER 2 PUFF INHALE (11:05)
[2022-06-23 11:09] VITALS: PULSE 96; RESP 18
[2022-06-23 11:12] VITALS: BP 138/78; PULSE 90; RESP 20; O2SAT 95
--- NOTE | 2022-06-23 11:14 | PC.NURSE ---
Patient has some wheezing after getting breathing treatments but is improved from first arrived.
== END 2022-06-23 11:16 | disposition home or self-care (01) ==
PROVIDERS: Emergency Provider Student in an Organized Health Care Education/Training Program; PCP Family Medicine
DX: J45.901 Unspecified asthma with (acute) exacerbation (principal); F17.210 Nicotine dependence, cigarettes, uncomplicated
CPT/HCPCS: 71045; 93005; 94640; 99285

== ENCOUNTER → 2022-06-24 09:12 | Outpatient (BNVA) | payer MEDICAID, SELFPAY | PROVIDERS: PCP Family Medicine; Visit Provider Internal Medicine Pulmonary Disease | DX: J45.909 Unspecified asthma, uncomplicated (principal); Z91.09 Other allergy status, other than to drugs and biological substances | CPT/HCPCS: 99212 ==

== ENCOUNTER 2022-06-28 07:39 | Outpatient (REF) | payer MEDICAID, SELFPAY | END 2022-06-28 07:40 | disposition home or self-care (01) | LOC: HO.MDS 07:39 | PROVIDERS: Visit Provider Internal Medicine Pulmonary Disease | DX: J45.50 Severe persistent asthma, uncomplicated (principal) | CPT/HCPCS: 96372; J2357 ==

== ENCOUNTER 2022-07-07 06:41 | Emergency (ER) | payer MEDICAID, SELFPAY ==
--- NOTE | ~2022-07-07 | XR_ITS ---
EXAMINATION: XR FOOT, RIGHT CLINICAL INFORMATION: Pain first metatarsal phalangeal joint. Suspect gout. COMPARISON: May 14, 2020 TECHNIQUE: AP, lateral, and oblique views of the right foot. FINDINGS: There is no evidence of acute fracture or dislocation of the right foot. Joint spaces are maintained. There is some mild soft tissue edema seen about the medial aspect of the first metatarsophalangeal joint. No bony erosions or soft tissue calcifications are evident. XR/XR foot RT 2V IMPRESSION: Soft tissue edema about the first metatarsophalangeal joint without erosive change or soft tissue calcifications.
[2022-07-07 07:00] VITALS: BMI 26.6
--- NOTE | 2022-07-07 07:53 | ED.LOWEXIN ---
HPI - Extremity Injury (Lower) General Chief Complaint: Extremity Injury, Lower Stated Complaint: lower extremity inj? Time Seen by Provider: 07/07/22 07:17 Source: patient Mode of arrival: ambulatory History of Present Illness HPI Narrative: 52-year-old male presents with pain, redness, swelling at the right great toe MTP this started last night. Patient denies any traumatic injury or history of diabetes. Patient states that he did drink on Tuesday. Related Data Home Medications Medication Instructions Recorded Confirmed pregabalin 150 mg capsule (Lyrica) 150 mg PO BID 11/26/19 05/11/22 montelukast 10 mg tablet 1 tab PO BEDTIME 09/14/20 05/11/22 ipratropium 20 mcg-albuterol 100 1 - 2 puff PO QID 09/22/20 05/11/22 mcg/actuation mist for inhalation (Combivent Respimat) loratadine 10 mg tablet 1 tab PO DAILY 08/31/21 05/11/22 lisinopril 10 mg tablet 10 mg PO DAILY 05/11/22 05/11/22 Previous Rx's Medication Instructions Recorded omalizumab 150 mg subcutaneous 225 mg subcut Q2W 28 days #3 ea 12/11/20 solution (Xolair) albuterol sulfate 90 mcg/actuation 1 inh inhalation QID PRN shortness 05/20/21 aerosol inhaler of breath or wheezing #6.7 grams fluticasone propionate 115 2 puff inhalation Q12H 30 days #1 06/10/21 mcg-salmeterol 21 mcg/actuation ea HFA inhaler (Advair HFA) albuterol sulfate 1.25 mg/3 mL 1.25 mg (3 mL) inhalation QID PRN 11/21/21 solution for nebulization shortness of breath or wheezing #75 mL cefpodoxime 200 mg tablet 200 mg PO BID #10 tabs 11/21/21 cyclobenzaprine 5 mg tablet 5 mg PO Q8H PRN pain (scale score 03/09/22 7-10) 5 days #14 tabs lidocaine 5 % topical patch 1 patch topical DAILY PRN pain #30 03/09/22 (Lidoderm) ea acetaminophen 325 mg tablet 325 mg PO QID PRN pain #90 tabs 03/28/22 (Tylenol) benzonatate 100 mg capsule 100 mg PO BID PRN cough #20 caps 03/28/22 dexamethasone 1 mg tablet 1 mg PO ONCE #1 tab 05/04/22 fluticasone propionate 50 1 spray intranasal BID 30 days #16 06/24/22 mcg/actuation nasal grams spray,suspension (Flonase Allergy Relief) codeine 10 mg-guaifenesin 100 mg/5 10 ml PO Q4-6H PRN allergy 06/25/22 mL oral liquid symptoms 10 days #237 mL Allergies Allergy/AdvReac Type Severity Reaction Status Date / Time Iodinated Contrast Media Allergy Severe Unknown Verified 07/07/22 07:02 ibuprofen [From MOTRIN] Allergy Unknown KIDNEY Verified 07/07/22 07:02 ISSUES mushroom AdvReac Mild VOMITING Verified 07/07/22 07:02 amlodipine AdvReac Unknown Swelling Verified 07/07/22 07:02 Review of Systems Review of Systems: Pertinent positives and negatives as stated in HPI [facility] Past Medical History Source: nursing notes reviewed 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 Arthritis Asthma Asthma with exacerbation Hypertension Surgical History H/O kidney removal H/O neck surgery History of unilateral nephrectomy Previous back surgery Family History Family History Mother Hypertension Asthma Father Medical history unknown Social History Social History Household Members: None Housing: House Do you presently have visiting nurse or other home services: No Alcohol intake: never Patient Tobacco Use Status: Current everyday Tobacco user Tobacco use type: Cigarette Cigarettes Per Day: 4 Years Smoked: 20 years Smoked in Last 30 Days: Yes e-Cigarette/Vaping Use: Former Use Second Hand Smoke Exposure: No Use of substances other than those prescribed or required for medical reasons: No Advance Directives: No service: No Current occupational status: employed Physical Exam Vital Signs: Vital Signs: Last Vital Signs Temp 98.5 F 07/07/22 08:10 Pulse 85 07/07/22 08:10 Resp 17 07/07/22 08:10 BP 117/90 H 07/07/22 08:10 Pulse Ox 96 07/07/22 08:10 O2 Del Method Room Air 07/07/22 08:10 BMI result Body Mass Index 26.6 VITAL SIGNS: Reviewed. GENERAL: Well developed, well nourished, in no acute distress. HEAD: Normocephalic/atraumatic EYES: PERRLA, EOMI LUNGS: Normal breath sounds. No adventitious sounds or accessory muscle use. CARDIOVASCULAR: Regular rate and rhythm without noted murmurs ABDOMEN: Soft, non-tender, non-distended with bowel sounds. RIGHT GREAT TOE: Swelling, erythema isolated to the MTP, no evidence of deformity or skin breaks or infection around the nail, tenderness on palpation SKIN: Inspection of the skin reveals no rashes NEUROLOGIC: Alert and oriented x 4. Strength and sensation to light touch were grossly intact x 4. Medications Administered Discontinued Medications Generic Name Dose Route Start Last Admin Trade Name Freq PRN Reason Stop Dose Admin Acetaminophen 975 mg 07/07/22 07:53 07/07/22 07:58 Acetaminophen 325 Mg Tablet PO 07/07/22 07:54 975 mg ONCE ONE Administration Medical Decision Making Medical Decision Making MDM Narrative: 52-year-old male with history and clinical presentation most consistent with gout, does not appear to be infectious in etiology. Will obtain BMP, x-ray and then provide colchicine. Review of all investigations demonstrates appropriate renal function and will give patient colchicine with loading dose 1.2 mg, also gave patient 0.6 mg and instructed to take 1 hour after. No evidence to suggest fracture/dislocation/cellulitis. Differential Diagnosis Please see the discussion above Lab Data Please see the discussion above 07/07/22 07:40 Labs: Lab Results 07/07/22 Range/Units 08:45 Sodium 137 (135-145) mmol/L Potassium 4.7 (3.3-5.1) mmol/L Chloride 104 (96-108) mmol/L Carbon Dioxide 26 (22-29) mmol/L Anion Gap 12 (12-20) BUN 18 H (9-16) mg/dL Creatinine 0.88 (0.5-1.4) mg/dL Estim Creat Clear Calc 92.8 Estimated GFR > 60 Random Glucose 97 (60-115) mg/dL Calcium 9.2 (8.4-10.2) mg/dL Radiology Impression Radiologist Impression: My interpretation is in agreement with radiology's impression Discharge Plan Discharge Clinical Impression: Gout attack Patient Disposition: Home, Self-Care Instructions: Low Purine Diet (ED), Gout (ED) Additional Instructions: 1. Please take the 0.6 mg colchicine 1 hour after the dose that you are given by nursing. 2. You may continue to treat your joint swelling and pain with ibuprofen 400 mg, orally with milk or food, every 6 hours. Drink plenty of water as well. 3. Follow-up with primary care provider in 1-2 days for re-evaluation. Return to the ER for any worsening symptoms. Prescriptions: No Action Xolair 150 mg recon soln 225 mg subcut Q2W 28 Days Qty: 3 12RF Rx Instructions: requires multiple injection sites; do not exceed 150 mg per injection site dexamethasone 1 mg tablet 1 mg PO ONCE Qty: 1 0RF codeine-guaifenesin 10-100 mg/5 mL liquid 10 ml PO Q4-6H PRN (Reason: allergy symptoms) 10 Days Qty: 237 0RF Combivent Respimat 20-100 mcg/actuation mist 1 - 2 puff PO QID pregabalin [Lyrica] 150 mg Capsule 150 mg PO BID montelukast 10 mg tablet 1 tab PO BEDTIME albuterol sulfate 1.25 mg/3 mL solution for nebulization 1.25 mg inhalation QID PRN (Reason: shortness of breath or wheezing) Qty: 75 0RF cefpodoxime 200 mg tablet 200 mg PO BID Qty: 10 0RF Rx Instructions: must administer with a meal/food lidocaine [Lidoderm] 5 % adhesive patch,medicated 1 patch topical DAILY MDD remove after 12 hours PRN (Reason: pain) Qty: 30 0RF Rx Instructions: leave on most painful area for up to 12 hrs cyclobenzaprine 5 mg tablet 5 mg PO Q8H PRN (Reason: pain (scale score 7-10)) 5 Days Qty: 14 0RF acetaminophen [Tylenol] 325 mg tablet 325 mg PO QID PRN (Reason: pain) Qty: 90 0RF benzonatate 100 mg capsule 100 mg PO BID PRN (Reason: cough) Qty: 20 0RF albuterol sulfate 90 mcg/actuation HFA aerosol inhaler 1 inh inhalation QID PRN (Reason: shortness of breath or wheezing) Qty: 6.7 0RF loratadine 10 mg tablet 1 tab PO DAILY Advair HFA 115-21 mcg/actuation HFA aerosol inhaler 2 puff inhalation Q12H 30 Days Qty: 1 6RF lisinopril 10 mg tablet 10 mg PO DAILY fluticasone propionate [Flonase Allergy Relief] 50 mcg/actuation spray,suspension 1 spray intranasal BID 30 Days Qty: 16 6RF Rx Instructions: administer into each nostril Referrals: Mirtha Lunsford MD [Primary Care Provider] -
[2022-07-07] MEDS: Acetaminophen 325 MG TABLET 975 MG PO (07:58)
[2022-07-07 08:10] VITALS: BP 117/90; PULSE 85; RESP 17; TEMP 36.9; O2SAT 96
--- NOTE | 2022-07-07 08:24 | PC.NURSE ---
assumed care of this pt at 0730. pt a&o x4, calm, pleasant, and cooperative. pt reports right great toe pain 3/10 at rest and with elevation but worsens with walking. x-ray completed, labs obtained, and pt medicated per apr. pt currently resting quietly on stretcher in no apparent distress. awaiting lab results. vss. wctm
[2022-07-07 09:10] LABS: Anion Gap 12 (12-20)
[2022-07-07 09:12] LABS: Blood Urea Nitrogen 18 mg/dL (9-16); Calcium 9.2 mg/dL (8.4-10.2); Carbon Dioxide 26 mmol/L (22-29); Chloride 104 mmol/L (96-108); Creatinine Clr Calc Pharmacy 92.8; Estimated Glomerular Filt Rate > 60; Glucose Random 97 mg/dL (60-115); Potassium 4.7 mmol/L (3.3-5.1); Sodium 137 mmol/L (135-145)
[2022-07-07] MEDS: Colchicine 0.6 MG TABLET 1.2 MG PO (10:07)
[2022-07-07] MEDS: Colchicine 0.6 MG TABLET PO (10:07)
== END 2022-07-07 10:22 | disposition home or self-care (01) ==
PROVIDERS: Emergency Provider Student in an Organized Health Care Education/Training Program; PCP Family Medicine
DX: M10.9 Gout, unspecified (principal); Z79.899 Other long term (current) drug therapy; F17.210 Nicotine dependence, cigarettes, uncomplicated; Z71.6 Tobacco abuse counseling
CPT/HCPCS: 36415; 73620; 80048; 99283; 99284

== ENCOUNTER 2022-07-12 10:50 | Outpatient (REF) | payer MEDICAID, SELFPAY | END 2022-07-12 10:51 | disposition home or self-care (01) | LOC: HO.MDS 10:50 | PROVIDERS: Visit Provider Internal Medicine Pulmonary Disease | DX: J45.50 Severe persistent asthma, uncomplicated (principal) | CPT/HCPCS: 96372; J2357 ==

== ENCOUNTER 2022-07-13 06:25 | Outpatient (REF) | payer MEDICAID, SELFPAY ==
[2022-07-13 09:29] LABS: Cortisol Random 1.3 ug/dL
[2022-07-22 09:08] LABS: Dexamethasone 568 ng/dL
== END 2022-07-13 06:26 | disposition home or self-care (01) ==
LOC: HO.LAB 06:25
PROVIDERS: PCP Family Medicine; Visit Provider Internal Medicine Endocrinology, Diabetes & Metabolism
DX: D35.01 Benign neoplasm of right adrenal gland (principal); Z79.899 Other long term (current) drug therapy
CPT/HCPCS: 36415; 80299; 82533

== ENCOUNTER 2022-07-27 14:55 | Outpatient (REF) | payer MEDICAID, SELFPAY | END 2022-07-27 14:56 | disposition home or self-care (01) | LOC: HO.MDS 14:55 | PROVIDERS: Visit Provider Internal Medicine Pulmonary Disease | DX: J45.50 Severe persistent asthma, uncomplicated (principal) | CPT/HCPCS: 96372; J2357 ==

== ENCOUNTER 2022-08-04 10:15 | Emergency (ER) | payer MEDICAID, SELFPAY ==
--- NOTE | ~2022-08-04 | XR_ITS ---
EXAMINATION: XR CHEST CLINICAL INFORMATION: Cough and asthma COMPARISON: 06/23/2022 TECHNIQUE: 2 views of the chest were obtained. FINDINGS: No significant abnormality is noted involving the heart, lungs, mediastinum, bony thorax or soft tissues. ACDF hardware is again seen. Some interstitial prominence had been noted previously which is no longer the case. XR/XR chest 2V IMPRESSION: No acute intrathoracic disease.
[2022-08-04 10:31] VITALS: BP 139/90; PULSE 96; RESP 16; TEMP 35.7; O2SAT 97; BMI 33.8
--- NOTE | 2022-08-04 10:39 | ECG_ITS ---
Test Reason : CHEST PAIN Blood Pressure : / mmHG Vent. Rate : 104 BPM Atrial Rate : 104 BPM P-R Int : 126 ms QRS Dur : 080 ms QT Int : 332 ms P-R-T Axes : 063 039 029 degrees QTc Int : 436 ms Sinus tachycardia Otherwise normal ECG When compared with ECG of 23-JUN-2022 07:39, No significant change was found Referred By: Miky Garcia Electronically Signed By:JULEE AVENDAÑO MD
[2022-08-04 11:13] LABS: MANUAL DIFF FLAG NO
[2022-08-04 11:15] LABS: Basophils Absolute Auto 0.1 X10*3/uL (0.0-0.2); Basophils Percent Auto 0.4 % (0-2); Eosinophils Percent Auto 0.2 % (0-4); Hematocrit 48.9 % (42.0-52.0); Hemoglobin 16.7 g/dl (14.0-18.0); Imm Gran Abs Auto 0.61 X10*3/uL (0.00-0.03); Imm Gran Pct Auto 3.5 % (0.0-0.4); Lymphocytes Absolute Auto 0.9 X10*3/uL (1.2-4.9); Lymphocytes Percent Auto 5.2 % (20-40); Mean Corpuscular HGB Conc 34.2 g/dl (31.0-36.0); Mean Corpuscular Hemoglobin 31.6 pg (27.0-33.0); Mean Corpuscular Volume 92.4 fL (80.0-98.0); Mean Platelet Volume 11.3 fL (9.4-12.4); Monocytes Absolute Auto 0.6 X10*3/uL (0.1-1.2); Monocytes Percent Auto 3.7 % (2-11); Neutrophils Absolute Auto 15.2 x10*3/uL (2.0-8.3); Platelet Count 273 X10*3/uL (160-400); Red Blood Count 5.29 X10*6/uL (4.60-5.80); Red Cell Distribution Width 12.7 % (11.0-16.0); White Blood Count 17.5 X10*3/uL (4.8-10.8)
[2022-08-04 11:28] LABS: Anion Gap 14 (12-20); Blood Urea Nitrogen 26 mg/dL (9-16); Calcium 9.9 mg/dL (8.4-10.2); Carbon Dioxide 19 mmol/L (22-29); Chloride 105 mmol/L (96-108); Creatinine Clr Calc Pharmacy 84.4; Estimated Glomerular Filt Rate > 60; Glucose Random 104 mg/dL (60-115); Potassium 4.8 mmol/L (3.3-5.1); Sodium 133 mmol/L (135-145)
[2022-08-04 11:30] VITALS: BP 142/91; PULSE 95; RESP 24; TEMP 37.1; O2SAT 95
[2022-08-04 11:37] LABS: Troponin-I High Sensitivity 19.5 ng/L (<3.5-35.0)
[2022-08-04 12:10] VITALS: BP 131/93; PULSE 92; RESP 20; O2SAT 97
[2022-08-04 12:19] VITALS: PULSE 87; RESP 17; O2SAT 98
[2022-08-04] MEDS: Albuterol Sulfate (0.083%) 2.5 MG/3 ML VIAL.NEB 5 MG INHALE (12:19)
[2022-08-04 12:50] LABS: COVID-19 Test Negative (Negative); IDNOW Serial# BCCEAD1C
[2022-08-04] MEDS: dexAMETHasone 2 MG TABLET 10 MG PO (13:25)
--- NOTE | 2022-08-04 13:33 | ED.GENADULT ---
HPI - General Adult General Chief complaint: General Medical Stated complaint: high BP, , dizzy, headache Time Seen by Provider: 08/04/22 12:06 Source: patient Mode of arrival: ambulatory Limitations: no limitations History of Present Illness HPI narrative: 52-year-old male my, hypertension presents with chest discomfort, difficulty breathing, I burning been foggy vision. Patient noted his blood pressure at that time was 160 systolic leave. Patient had a vague chest discomfort. Described as a sharp pain in the middle of his chest. Did not radiate. Not associated with nausea vomiting. He did have some shortness of breath and some wheezing and cough. This is not atypical for the patient. There are no clear relieving or exacerbating features. He had no fevers or chills. There is no mucus production. At that same time, he tried to eat some crackers developed a right-sided neck pain with swallowing. That symptom has since resolved. Essentially, his only complaint at this time is some shortness of breath associated with the wheezing and difficulty breathing. Related Data Home Medications Medication Instructions Recorded Confirmed pregabalin 150 mg capsule (Lyrica) 150 mg PO BID 11/26/19 05/11/22 montelukast 10 mg tablet 1 tab PO BEDTIME 09/14/20 05/11/22 ipratropium 20 mcg-albuterol 100 1 - 2 puff PO QID 09/22/20 05/11/22 mcg/actuation mist for inhalation (Combivent Respimat) loratadine 10 mg tablet 1 tab PO DAILY 08/31/21 05/11/22 lisinopril 10 mg tablet 10 mg PO DAILY 05/11/22 05/11/22 Previous Rx's Medication Instructions Recorded omalizumab 150 mg subcutaneous 225 mg subcut Q2W 28 days #3 ea 12/11/20 solution (Xolair) albuterol sulfate 90 mcg/actuation 1 inh inhalation QID PRN shortness 05/20/21 aerosol inhaler of breath or wheezing #6.7 grams fluticasone propionate 115 2 puff inhalation Q12H 30 days #1 06/10/21 mcg-salmeterol 21 mcg/actuation ea HFA inhaler (Advair HFA) albuterol sulfate 1.25 mg/3 mL 1.25 mg (3 mL) inhalation QID PRN 11/21/21 solution for nebulization shortness of breath or wheezing #75 mL cefpodoxime 200 mg tablet 200 mg PO BID #10 tabs 11/21/21 cyclobenzaprine 5 mg tablet 5 mg PO Q8H PRN pain (scale score 03/09/22 7-10) 5 days #14 tabs lidocaine 5 % topical patch 1 patch topical DAILY PRN pain #30 03/09/22 (Lidoderm) ea acetaminophen 325 mg tablet 325 mg PO QID PRN pain #90 tabs 03/28/22 (Tylenol) benzonatate 100 mg capsule 100 mg PO BID PRN cough #20 caps 03/28/22 dexamethasone 1 mg tablet 1 mg PO ONCE #1 tab 05/04/22 fluticasone propionate 50 1 spray intranasal BID 30 days #16 06/24/22 mcg/actuation nasal grams spray,suspension (Flonase Allergy Relief) codeine 10 mg-guaifenesin 100 mg/5 10 ml PO Q4-6H PRN allergy 06/25/22 mL oral liquid symptoms 10 days #237 mL Allergies Allergy/AdvReac Type Severity Reaction Status Date / Time Iodinated Contrast Media Allergy Severe Unknown Verified 08/04/22 10:30 ibuprofen [From MOTRIN] Allergy Unknown KIDNEY Verified 08/04/22 10:30 ISSUES mushroom AdvReac Mild VOMITING Verified 08/04/22 10:30 amlodipine AdvReac Unknown Swelling Verified 08/04/22 10:30 Review of Systems Review of Systems: CONSTITUTIONAL: Denies weight loss, fever and chills. HEENT: Denies changes in vision and hearing. RESPIRATORY: + SOB and cough. CV: Denies palpitations + CP. GI: Denies abdominal pain, nausea, vomiting and diarrhea. : Denies dysuria and urinary frequency. MSK: Denies myalgia and joint pain. SKIN: Denies rash and pruritus. NEUROLOGICAL: Denies headache and syncope. PSYCHIATRIC: Denies recent changes in mood. Denies anxiety and depression. All other ROS are negative unless in HPI PMFSH Past Medical History 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 Arthritis Asthma Asthma with exacerbation Hypertension Surgical History H/O kidney removal H/O neck surgery History of unilateral nephrectomy Previous back surgery Family History Family History Mother Hypertension Asthma Father Medical history unknown Social History Social History Household Members: None Housing: House Do you presently have visiting nurse or other home services: No Alcohol intake: never Patient Tobacco Use Status: Current everyday Tobacco user Tobacco use type: Cigarette Cigarettes Per Day: 4 Years Smoked: 20 years Smoked in Last 30 Days: Yes e-Cigarette/Vaping Use: Former Use Second Hand Smoke Exposure: No Use of substances other than those prescribed or required for medical reasons: No Advance Directives: No service: No Current occupational status: employed Physical Exam ED Vital Signs: Vital Signs - 24 hr 08/04/22 10:31 08/04/22 11:30 08/04/22 12:10 Temperature 96.3 F L 98.7 F Pulse Rate 96 95 92 Respiratory Rate 16 24 H 20 Blood Pressure 139/90 H 142/91 H 131/93 H Pulse Oximetry 97 95 97 Oxygen Delivery Method Room Air Room Air Room Air 08/04/22 12:19 Temperature Pulse Rate 87 Respiratory Rate 17 Blood Pressure Pulse Oximetry Oxygen Delivery Method BMI result Body Mass Index 33.8 GEN: Well developed, no acute distress, alert, oriented HEENT: Normocephalic, atraumatic, normal external ears, nose appears normal, no oropharyngeal edema or exudates Eyes: Normal to appearance Neck: Supple, no lymphadenopathy Respiratory: Prolonged expiration, expiratory wheezes, poor air movement Cardiovascular: Regular rate and rhythm, no murmurs rubs or gallops Abdomen: Soft, nontender, nondistended, no guarding, no rebound Back: No CVA tenderness Extremities: No clubbing cyanosis or edema Neurologic: No focal neurologic deficits, cranial nerves 2-12 intact, strength is 5/5 bilaterally Skin: No rash Course Course Course Narrative: 52-year-old male with history of asthma presents with multiple complaints. The workup is completed this time. Patient's laboratory analysis is most consistent with an elevated white blood cell count with a left shift. He has no fever. Chest x-ray reveals no acute cardiopulmonary disease. There is no indication start antibiotic treatment. COVID negative. Patient received dexamethasone and nebulizer treatment. Lungs are clear to auscultation bilaterally. No longer dyspneic. He is feeling much better. Will discharge patient at this time with close follow-up. Medications Administered Discontinued Medications Generic Name Dose Route Start Last Admin Trade Name Prince PRN Reason Stop Dose Admin Albuterol Sulfate 5 mg 08/04/22 12:12 08/04/22 12:19 Albuterol Sulfate (0.083%) 2.5 Mg/3 Ml Vial.Neb INHALE 08/04/22 12:13 5 mg ONCE ONE Administration Dexamethasone 10 mg 08/04/22 12:12 08/04/22 13:25 Dexamethasone 2 Mg Tablet PO 08/04/22 12:13 10 mg ONCE ONE Administration Medical Decision Making Medical Decision Making [facility] Narrative: 52-year-old male presents with multiple complaints including chest discomfort, difficulty breathing, wheezing, coughing, dizziness, eye complaints and elevated blood pressure. On my evaluation, patient's blood pressure was significantly improved. His heart was regular rate and rhythm. There are no murmurs rubs or gallops. Lungs revealed decreased air movement, prolonged expiration and some expiratory wheezes. Symptoms are most consistent with an asthma exacerbation. I have provided the patient with nebulizer, steroids, chest x-ray, routine laboratory analysis. Will re-evaluate the patient frequently. Will need to assess for patient for discharge. This symptoms persist, patient may require hospitalization. Differential Diagnosis Differential Diagnoses: The differential diagnosis associated with the presentation includes (Asthma exacerbation, atypical chest pain, bronchitis, pneumonia, COVID, viral infection, musculoskeletal pain) Admission/Observation Consideration of admission/observation: Escalation of care including admission/observation considered Lab Data [facility] Lab Attestation statement: I reviewed the patient's lab results. 08/04/22 11:06 08/04/22 11:06 Labs: Lab Results 08/04/22 08/04/22 08/04/22 Range/Units 11:05 11:06 11:06 WBC 17.5 H (4.8-10.8) X10*3/uL RBC 5.29 (4.60-5.80) X10*6/uL Hgb 16.7 (14.0-18.0) g/dl Hct 48.9 (42.0-52.0) % MCV 92.4 (80.0-98.0) fL MCH 31.6 (27.0-33.0) pg MCHC 34.2 (31.0-36.0) g/dl RDW 12.7 (11.0-16.0) % Plt Count 273 (160-400) X10*3/uL MPV 11.3 (9.4-12.4) fL Immature Gran % (Auto) 3.5 H (0.0-0.4) % Neut % (Auto) 87.0 H (45-73) % Lymph % (Auto) 5.2 L (20-40) % Peach % (Auto) 3.7 (2-11) % Eos % (Auto) 0.2 (0-4) % Baso % (Auto) 0.4 (0-2) % Lymph # (Auto) 0.9 L (1.2-4.9) X10*3/uL Peach # (Auto) 0.6 (0.1-1.2) X10*3/uL Eos # (Auto) 0.0 (0.0-0.4) X10*3/uL Baso # (Auto) 0.1 (0.0-0.2) X10*3/uL Abs Immat Gran (auto) 0.61 H (0.00-0.03) X10*3/uL Absolute Neuts (auto) 15.2 H (2.0-8.3) x10*3/uL Absolute Nucleated RBC 0.000 (0.0-0.012) X10*3/uL Nucleated RBC % (auto) 0.0 (0.0-0.2) /100WBC Sodium 133 L (135-145) mmol/L Potassium 4.8 (3.3-5.1) mmol/L Chloride 105 (96-108) mmol/L Carbon Dioxide 19 L (22-29) mmol/L Anion Gap 14 (12-20) BUN 26 H (9-16) mg/dL Creatinine 1.08 (0.5-1.4) mg/dL Estim Creat Clear Calc 84.4 Estimated GFR > 60 Random Glucose 104 (60-115) mg/dL Calcium 9.9 D (8.4-10.2) mg/dL Troponin I High Sens 19.5 (<3.5-35.0) ng/L COVID-19 ([facility]) (Negative) COVID-19 Clin Com 06/14/23 Range/Units 12:29 WBC (4.8-10.8) X10*3/uL RBC (4.60-5.80) X10*6/uL Hgb (14.0-18.0) g/dl Hct (42.0-52.0) % MCV (80.0-98.0) fL MCH (27.0-33.0) pg MCHC (31.0-36.0) g/dl RDW (11.0-16.0) % Plt Count (160-400) X10*3/uL MPV (9.4-12.4) fL Immature Gran % (Auto) (0.0-0.4) % Neut % (Auto) (45-73) % Lymph % (Auto) (20-40) % Peach % (Auto) (2-11) % Eos % (Auto) (0-4) % Baso % (Auto) (0-2) % Lymph # (Auto) (1.2-4.9) X10*3/uL Peach # (Auto) (0.1-1.2) X10*3/uL Eos # (Auto) (0.0-0.4) X10*3/uL Baso # (Auto) (0.0-0.2) X10*3/uL Abs Immat Gran (auto) (0.00-0.03) X10*3/uL Absolute Neuts (auto) (2.0-8.3) x10*3/uL Absolute Nucleated RBC (0.0-0.012) X10*3/uL Nucleated RBC % (auto) (0.0-0.2) /100WBC Sodium (135-145) mmol/L Potassium (3.3-5.1) mmol/L Chloride (96-108) mmol/L Carbon Dioxide (22-29) mmol/L Anion Gap (12-20) BUN (9-16) mg/dL Creatinine (0.5-1.4) mg/dL Estim Creat Clear Calc Estimated GFR Random Glucose (60-115) mg/dL Calcium (8.4-10.2) mg/dL Troponin I High Sens (<3.5-35.0) ng/L COVID-19 ([facility]) Negative (Negative) COVID-19 Clin Com See Note Independent Interpretation I performed an independent interpretation of an: EKG (Sinus tachycardia heart rate [address], [address] elevations depressions, Q-waves noted in 3 and AVF, low voltage in the limb leads) and Plain X-Ray (Chest: No acute cardiopulmonary disease) Tests considered The following testing was considered but not selected: CT chest Prescription Management I considered prescription management with: Pain Medication and Antibiotic Discharge Plan Discharge Clinical Impression: Asthma, Atypical chest pain, Elevated blood pressure reading Patient Disposition: Home, Self-Care Instructions: Chest Pain (DC), Asthma (ED), DASH Eating Plan (ED), Hypertension (ED) Prescriptions: No Action Xolair 150 mg recon soln 225 mg subcut Q2W 28 Days Qty: 3 12RF Rx Instructions: requires multiple injection sites; do not exceed 150 mg per injection site dexamethasone 1 mg tablet 1 mg PO ONCE Qty: 1 0RF codeine-guaifenesin 10-100 mg/5 mL liquid 10 ml PO Q4-6H PRN (Reason: allergy symptoms) 10 Days Qty: 237 0RF Combivent Respimat 20-100 mcg/actuation mist 1 - 2 puff PO QID pregabalin [Lyrica] 150 mg Capsule 150 mg PO BID montelukast 10 mg tablet 1 tab PO BEDTIME albuterol sulfate 1.25 mg/3 mL solution for nebulization 1.25 mg inhalation QID PRN (Reason: shortness of breath or wheezing) Qty: 75 0RF cefpodoxime 200 mg tablet 200 mg PO BID Qty: 10 0RF Rx Instructions: must administer with a meal/food lidocaine [Lidoderm] 5 % adhesive patch,medicated 1 patch topical DAILY MDD remove after 12 hours PRN (Reason: pain) Qty: 30 0RF Rx Instructions: leave on most painful area for up to 12 hrs cyclobenzaprine 5 mg tablet 5 mg PO Q8H PRN (Reason: pain (scale score 7-10)) 5 Days Qty: 14 0RF acetaminophen [Tylenol] 325 mg tablet 325 mg PO QID PRN (Reason: pain) Qty: 90 0RF benzonatate 100 mg capsule 100 mg PO BID PRN (Reason: cough) Qty: 20 0RF albuterol sulfate 90 mcg/actuation HFA aerosol inhaler 1 inh inhalation QID PRN (Reason: shortness of breath or wheezing) Qty: 6.7 0RF loratadine 10 mg tablet 1 tab PO DAILY Advair HFA 115-21 mcg/actuation HFA aerosol inhaler 2 puff inhalation Q12H 30 Days Qty: 1 6RF lisinopril 10 mg tablet 10 mg PO DAILY fluticasone propionate [Flonase Allergy Relief] 50 mcg/actuation spray,suspension 1 spray intranasal BID 30 Days Qty: 16 6RF Rx Instructions: administer into each nostril Referrals: [facility] [Primary Care Provider] -
== END 2022-08-04 13:57 | disposition home or self-care (01) ==
PROVIDERS: Emergency Provider Emergency Medicine
DX: J45.909 Unspecified asthma, uncomplicated (principal); R07.89 Other chest pain; H53.8 Other visual disturbances; I10 Essential (primary) hypertension; R05.9 Cough, unspecified; Z20.822 Contact with and (suspected) exposure to COVID-19
CPT/HCPCS: 36415; 71046; 80048; 84484; 85025; 87635; 93005; 94640; 99284; 99285; J8540

== ENCOUNTER 2022-08-09 07:09 | Outpatient (REF) | payer MEDICAID, SELFPAY | END 2022-08-09 07:10 | disposition home or self-care (01) | LOC: HO.MDS 07:09 | PROVIDERS: Visit Provider Internal Medicine Pulmonary Disease | DX: J45.50 Severe persistent asthma, uncomplicated (principal) | CPT/HCPCS: 96372; J2357 ==

== ENCOUNTER 2022-08-19 07:45 | Emergency (ER) | payer MEDICAID, SELFPAY ==
--- NOTE | ~2022-08-19 | CT_ITS ---
EXAMINATION: CT LUMBAR SPINE WITHOUT CONTRAST CLINICAL INFORMATION: Lower extremity weakness and back pain. COMPARISON: CT scan of the abdomen and pelvis dated 03/09/2022. TECHNIQUE: Multiple axial images of the lumbar spine were obtained without the administration of intravenous contrast. Coronal and sagittal reformatted images were obtained. This CT examination was performed using dose optimization techniques as appropriate, variously including the following: *Automated exposure control *Adjustment of mA and/or kV according to patient size (this includes techniques or standardized protocols for targeted exams where dose is matched to indication/reason for exam; i.e. extremities or head) *Use of iterative reconstruction technique DLP; 638 mGy-cm FINDINGS: There is normal lumbar lordosis and spinal alignment. The vertebral bodies are intact. Mild to moderate marginal osteophyte formation is seen at L1-2 and more pronounced at L4-5. The neural foramina are patent. Mild multilevel bilateral facet arthropathy is seen, most pronounced at L3-4 and L5-S1. L4-5 generalized disc bulge mildly narrowing the spinal canal and neural foramina at that level. Mild hypertrophy of the ligamentum flavum. Mid sagittal diameter is 16 mm (image 85, series 6). No acute intra-abdominal/pelvic abnormality. Status post left nephrectomy with no abnormality in the left renal fossa. The paravertebral soft tissues are unremarkable. CT/CT lumbar spine wo IV con IMPRESSION: 1. L4-5 generalized disc bulge causing mild spinal canal and neural foraminal narrowing. 2. Mild multilevel degenerative changes as detailed above. If patient's symptoms persist or worsen, lumbar spine MRI should be considered.
[2022-08-19 08:27] VITALS: BP 122/85; PULSE 99; RESP 19; TEMP 36.8; O2SAT 96; BMI 34.8
[2022-08-19 08:34] VITALS: BP 122/85; PULSE 94; RESP 16; TEMP 36.8; O2SAT 98
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
[2022-08-19 09:23] LABS: MANUAL DIFF FLAG NO
[2022-08-19 09:29] LABS: Basophils Absolute Auto 0.1 X10*3/uL (0.0-0.2); Basophils Percent Auto 0.5 % (0-2); Eosinophils Absolute Auto 0.1 X10*3/uL (0.0-0.4); Eosinophils Percent Auto 0.7 % (0-4); Hematocrit 43.4 % (42.0-52.0); Hemoglobin 14.6 g/dl (14.0-18.0); Imm Gran Abs Auto 0.55 X10*3/uL (0.00-0.03); Imm Gran Pct Auto 4.6 % (0.0-0.4); Lymphocytes Absolute Auto 2.1 X10*3/uL (1.2-4.9); Lymphocytes Percent Auto 17.6 % (20-40); Mean Corpuscular HGB Conc 33.6 g/dl (31.0-36.0); Mean Corpuscular Hemoglobin 31.3 pg (27.0-33.0); Mean Corpuscular Volume 93.1 fL (80.0-98.0); Mean Platelet Volume 10.4 fL (9.4-12.4); Monocytes Absolute Auto 1.1 X10*3/uL (0.1-1.2); Monocytes Percent Auto 9.5 % (2-11); Neutrophils Absolute Auto 8.1 x10*3/uL (2.0-8.3); Neutrophils Percent Auto 67.1 % (45-73); Platelet Count 234 X10*3/uL (160-400); Red Blood Count 4.66 X10*6/uL (4.60-5.80); Red Cell Distribution Width 13.2 % (11.0-16.0)
[2022-08-19 09:40] LABS: INTERNATIONAL NORM RATIO 0.9 (0.9-1.1); Prothrombin Time 9.7 SEC (10.0-13.1)
[2022-08-19 09:51] LABS: Appearance Urine Clear; Color Urine Yellow; Glucose Urine UA Negative (Negative); Leukocyte Esterase Urine Negative (Negative); Nitrite Urine Negative (Negative); Specific Gravity - Urine 1.015 (1.005-1.025); Urine Blood Negative (Negative); Urine Ketones Negative (Negative); Urine Protein Negative (Neg-Trace)
[2022-08-19 09:54] LABS: Alanine Aminotransferase 23 U/L (0-40); Albumin Level 3.8 g/dL (3.5-5.0); Alkaline Phosphatase 63 U/L (39-117); Anion Gap 13 (12-20); Aspartate Amino Transferase 13 U/L (5-37); Bilirubin Direct 0.1 mg/dL (0.0-0.5); Bilirubin Total 0.3 mg/dL (0.0-1.0); Blood Urea Nitrogen 19 mg/dL (9-16); Calcium 9.6 mg/dL (8.4-10.2); Carbon Dioxide 25 mmol/L (22-29); Chloride 108 mmol/L (96-108); Creatinine Clr Calc Pharmacy 106.3; Estimated Glomerular Filt Rate > 60; Glucose Random 98 mg/dL (60-115); Potassium 4.5 mmol/L (3.3-5.1); Sodium 141 mmol/L (135-145); Total Protein 6.2 g/dL (6.5-8.0)
[2022-08-19 10:50] LABS: Magnesium 2.3 mg/dL (1.6-2.6)
--- NOTE | 2022-08-19 11:15 | PC.NURSE ---
pt a&o x4, pleasant, calm, and cooperative. reports weakness from lower back down lower extremities that started last night while doing dishes. pt sts he had to army crawl upstairs to bed. pt sts little pain to BL lower extremities that is bearable. otherwise no complaints. currently resting quietly on stretcher in no apparent distress. rr even/unlabored. wctm
[2022-08-19] MEDS: Acetaminophen 325 MG TABLET 975 MG PO (12:04)
[2022-08-19 12:08] VITALS: RESP 16
== END 2022-08-19 12:09 | disposition home or self-care (01) ==
PROVIDERS: Physician Assistant Medical; Emergency Provider Emergency Medicine
DX: M54.50 Low back pain, unspecified (principal); Z79.899 Other long term (current) drug therapy
CPT/HCPCS: 36415; 72131; 80048; 80076; 81003; 83735; 85025; 85610; 85730; 99284

== ENCOUNTER 2022-08-19 08:00 | Outpatient (REF) | payer MEDICAID, SELFPAY ==
[2022-08-19 11:14] LABS: Estimated Glomerular Filt Rate > 60
[2022-08-19 11:36] LABS: Creatinine, mg/dL 87.23
[2022-08-19 13:21] LABS: Creatinine, 24Hr Urine 1.4 G/Day (1.0-2.0); Total Volume 24 Hour Urine 1650 mL
== END 2022-08-19 08:01 | disposition home or self-care (01) ==
LOC: HO.LAB 08:00
PROVIDERS: Visit Provider Internal Medicine Hypertension Specialist
DX: I10 Essential (primary) hypertension (principal); Z90.5 Acquired absence of kidney
CPT/HCPCS: 36415; 82565; 82570

== ENCOUNTER 2022-08-23 07:06 | Outpatient (REF) | payer MEDICAID, SELFPAY | END 2022-08-23 07:07 | disposition home or self-care (01) | LOC: HO.MDS 07:06 | PROVIDERS: Visit Provider Internal Medicine Pulmonary Disease | DX: J45.50 Severe persistent asthma, uncomplicated (principal) | CPT/HCPCS: 96372; J2357 ==

== ENCOUNTER 2022-09-06 08:54 | Outpatient (REF) | payer MEDICAID, SELFPAY | END 2022-09-06 08:55 | disposition home or self-care (01) | LOC: HO.MDS 08:54 | PROVIDERS: Visit Provider Internal Medicine Pulmonary Disease | DX: J45.50 Severe persistent asthma, uncomplicated (principal) | CPT/HCPCS: 96372; J2357 ==

== ENCOUNTER 2022-09-07 10:10 | Outpatient (AMB) | payer MEDICAID, SELFPAY ==
--- NOTE | 2022-09-07 10:14 | A.OFFVIS_ITS ---
Intake Vital Signs 09/07/22 10:16 Height 5 ft 6 in Weight 209 lb 7.026 oz BMI 33.8 BP 118/82 Pulse 107 H Pulse Oximetry (%) 95 Intake Visit Reasons: asthma exacerbation Intake Note: Continue current regimen of Xolair, Advair, Combivent, and albuterol MDI. Pt was started on flonase for allergy symptoms. Allergies Iodinated Contrast Media Allergy (Severe, Verified 08/04/22 10:30) Unknown ibuprofen [From MOTRIN] Allergy (Unknown, Verified 08/04/22 10:30) KIDNEY ISSUES mushroom Adverse Reaction (Mild, Verified 08/04/22 10:30) VOMITING amlodipine Adverse Reaction (Unknown, Verified 08/04/22 10:30) Swelling HPI asthma exacerbation HPI Details 52-year-old gentleman, active 20+ pack-year smoker, followed for allergic asthma asthma/COPD overlap syndrome.? Patient continues on Xolair, albuterol MDI and Combivent. He has not been using his Advair, and does his symptoms suboptimal control. Though he denies an acute exacerbation. [facility] 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 Arthritis Asthma Asthma with exacerbation Hypertension Surgical History H/O kidney removal H/O neck surgery History of unilateral nephrectomy Previous back surgery Family History Mother Hypertension Asthma Father Medical history unknown Social History Household Members: None Housing: House Do you presently have visiting nurse or other home services: No Alcohol intake: never Patient Tobacco Use Status: Current everyday Tobacco user Tobacco use type: Cigarette Cigarettes Per Day: 4 Years Smoked: 20 years e-Cigarette/Vaping Use: Former Use Second Hand Smoke Exposure: No service: No Current occupational status: employed Review of Systems Const Denies daytime sleepiness, Denies excessive sweating, Denies fatigue, Denies fever(s), Denies lethargy, Denies malaise, Denies night sweats, Denies snoring and Denies weight loss Eyes Denies blurry vision and Denies itchy eyes ENT Denies nasal congestion, Denies post nasal drip, Denies sinus pain, Denies sinus pressure and Denies other ( Thrush) Card Denies chest pain, Denies pedal edema, Denies dyspnea, Denies orthopnea and Denies paroxysmal nocturnal dyspnea Resp Denies cough, Denies hemoptysis, Denies excessive phlegm production, Denies dyspnea, Denies snoring and Denies wheezing GI Denies abdominal pain and Denies heartburn Musc Denies myalgias, Denies arthralgias and Denies joint swelling Skin/Breast Denies rash Neuro Denies memory loss and Denies seizure-like activity Psych Denies abnormal sleep pattern, Denies anxiety and Denies memory loss Endo Denies excessive sweating, Denies fatigue and Denies heat intolerance Paul/Lymph Denies easy bruising Aller/Immun Denies itchy eyes, Denies seasonal rhinorrhea and Denies wheezing Physical Exam Vital Signs: Last Vital Signs Pulse 107 H 09/07/22 10:16 BP 118/82 09/07/22 10:16 Pulse Ox 95 09/07/22 10:16 BMI result Body Mass Index 33.8 Const General: no acute distress and alert Nutritional Appearance: not obese Orientation/consciousness: Other orientation findings ( oriented) HEENT Head: Yes atraumatic Eyes General: appearance normal, both eyes and all related structures Sclerae: sclerae normal EOM: EOMs intact bilaterally Neck Neck: Yes supple Lymphatic: no lymphadenopathy noted Resp Effort & Inspection: normal respiratory effort and no use of accessory muscles Auscultation: clear to auscultation bilaterally Cardio Rate: regular rate Rhythm: regular rhythm Heart sounds: no gallops, no murmurs and no rubs Skin General skin exam: other ( warm) Extrem General: No clubbing, No cyanosis and No edema Assessment & Plan Assessment & Plan (1) Asthma: Code(s): J45.909 - Unspecified asthma, uncomplicated Plan: Suboptimal control as patient has not been using his Advair. Restart Advair. Continue Xolair and albuterol MDI/Combivent. (2) Environmental allergies: Code(s): Z91.09 - Other allergy status, other than to drugs and biological substances Plan: Improved control on Xolair. Continue current regimen. Medications: Refilled fluticasone propion-salmeterol 115-21 mcg/actuation (Advair HFA) 2 puffs inh alation Q12H 1 ea 6RF 30 days Coding Level of Care Code Est Pt Level 4 (39268) Diagnoses Asthma J45.909 Environmental allergies Z91.09
[2022-09-07 10:16] VITALS: BP 118/82; PULSE 107; O2SAT 95; BMI 33.8
== END 2022-09-07 10:40 | disposition home or self-care (01) ==
PROVIDERS: Visit Provider Internal Medicine Pulmonary Disease
DX: J45.909 Unspecified asthma, uncomplicated (principal); Z91.09 Other allergy status, other than to drugs and biological substances
CPT/HCPCS: 99214

== ENCOUNTER → 2022-09-07 10:10 | Outpatient (BNVA) | payer MEDICAID, SELFPAY | PROVIDERS: Visit Provider Internal Medicine Pulmonary Disease | DX: J45.909 Unspecified asthma, uncomplicated (principal); Z91.09 Other allergy status, other than to drugs and biological substances; F17.210 Nicotine dependence, cigarettes, uncomplicated | CPT/HCPCS: 99212 ==

== ENCOUNTER 2022-09-13 12:19 | Observation (INO) | payer MEDICAID, SELFPAY ==
--- NOTE | ~2022-09-13 | XR_ITS ---
EXAMINATION: XR CHEST CLINICAL INFORMATION: Chest pain. COMPARISON: 08/04/2022 chest radiographs. TECHNIQUE: 2 views of the chest were obtained. FINDINGS: The lungs are clear. There are no pleural effusions. The heart and mediastinal structures are unremarkable. An anterior cervical spine fusion plate is noted in place without abnormality or change XR/XR chest 2V IMPRESSION: No acute cardiopulmonary process.
--- NOTE | ~2022-09-13 | CT_ITS ---
EXAMINATION: CT ABDOMEN AND PELVIS WITHOUT CONTRAST CLINICAL INFORMATION: abd pain. COMPARISON: 03/09/2022. TECHNIQUE: Multidetector volumetric imaging was performed from the superior aspect of the liver through the pubic symphysis without contrast per renal stone protocol. Sagittal and coronal reformatted images were obtained on the technologist workstation. This CT examination was performed using dose optimization techniques as appropriate, variously including the following: *Automated exposure control *Adjustment of mA and/or kV according to patient size (this includes techniques or standardized protocols for targeted exams where dose is matched to indication/reason for exam; i.e. extremities or head) *Use of iterative reconstruction technique DLP: 578 mGy-cm. FINDINGS: LUNG BASES: The visualized lung bases are unremarkable. LIVER, GALLBLADDER, BILIARY TREE: The non-contrast liver is normal in size, shape, and attenuation. No focal hepatic lesion or biliary ductal dilatation is present. The gallbladder is unremarkable with no evidence of radiopaque gallstones, gallbladder wall thickening, or obvious pericholecystic inflammatory changes. PANCREAS: Unremarkable. SPLEEN: Unremarkable. ADRENAL GLANDS: There is stable 2 cm nodular fullness to the right adrenal gland most consistent with a lipid rich adrenal adenoma, unchanged from the prior study. Left adrenal gland unremarkable KIDNEYS AND URETERS: The left kidney is surgically absent with postoperative changes. I do not appreciate any suspicious soft tissue nodules to suggest recurrent or residual disease in the left renal bed. Remaining right kidney is grossly unremarkable. No obstructive changes. No perinephric stranding. The ureter is decompressed throughout its course to the bladder BLADDER: Decompressed GASTROINTESTINAL TRACT: No colonic wall thickening or pericolonic inflammatory change. The appendix is grossly unremarkable. Small bowel unremarkable ABDOMINAL WALL: No significant hernia is appreciated. LYMPHOVASCULAR STRUCTURES: No lymphadenopathy. The aorta is unremarkable.. PELVIC VISCERA: Unremarkable. OSSEUS STRUCTURES: Unremarkable. CT/CT abdomen pelvis wo IV con IMPRESSION: Chronic appearing and postoperative changes similar to the prior study. I do not appreciate any acute intra-abdominal process.
--- NOTE | 2022-09-13 12:21 | ECG_ITS ---
Test Reason : fall Blood Pressure : / mmHG Vent. Rate : 109 BPM Atrial Rate : 109 BPM P-R Int : 122 ms QRS Dur : 072 ms QT Int : 318 ms P-R-T Axes : 066 017 033 degrees QTc Int : 428 ms Sinus tachycardia Otherwise normal ECG When compared with ECG of 04-AUG-2022 10:46, No significant change was found Referred By: Joe Tee Electronically Signed By:JULEE AVENDAÑO MD
[2022-09-13 12:36] VITALS: BP 149/91; PULSE 109; RESP 18; TEMP 36.1; O2SAT 95; BMI 34.4
--- NOTE | 2022-09-13 12:36 | ED.GENADULT ---
HPI - General Adult General Chief complaint: Abdominal Pain Stated complaint: SOB/Heartburn/CP Time Seen by Provider: 09/13/22 17:48 History of Present Illness HPI narrative: Patient is a 52-year-old male with a history of asthma. History of smoking. Presented today with having epigastric pain. Nausea. Patient claims that at night it seems to get worse it seems to be burning now he is having wheezing he feels hat he is having hiccups. Denies any diaphoresis. No coughing congestion upper respiratory symptoms. No history of HI in the past. Positive history of asthma positive history of smoking no history of hypertension patient claims the symptoms started about 3 days ago at that time he ate some fried chicken then had epigastric pain. Pain usually is worse at night. Improved during the day. Related Data Home Medications Medication Instructions Recorded Confirmed pregabalin 150 mg capsule (Lyrica) 150 mg PO BID 11/26/19 05/11/22 montelukast 10 mg tablet 1 tab PO BEDTIME 09/14/20 05/11/22 ipratropium 20 mcg-albuterol 100 1 - 2 puff PO QID 09/22/20 05/11/22 mcg/actuation mist for inhalation (Combivent Respimat) loratadine 10 mg tablet 1 tab PO DAILY 08/31/21 05/11/22 lisinopril 10 mg tablet 10 mg PO DAILY 05/11/22 05/11/22 Previous Rx's Medication Instructions Recorded omalizumab 150 mg subcutaneous 225 mg subcut Q2W 28 days #3 ea 12/11/20 solution (Xolair) albuterol sulfate 90 mcg/actuation 1 inh inhalation QID PRN shortness 05/20/21 aerosol inhaler of breath or wheezing #6.7 grams albuterol sulfate 1.25 mg/3 mL 1.25 mg (3 mL) inhalation QID PRN 11/21/21 solution for nebulization shortness of breath or wheezing #75 mL cefpodoxime 200 mg tablet 200 mg PO BID #10 tabs 11/21/21 cyclobenzaprine 5 mg tablet 5 mg PO Q8H PRN pain (scale score 03/09/22 7-10) 5 days #14 tabs lidocaine 5 % topical patch 1 patch topical DAILY PRN pain #30 03/09/22 (Lidoderm) ea acetaminophen 325 mg tablet 325 mg PO QID PRN pain #90 tabs 03/28/22 (Tylenol) benzonatate 100 mg capsule 100 mg PO BID PRN cough #20 caps 03/28/22 dexamethasone 1 mg tablet 1 mg PO ONCE #1 tab 05/04/22 fluticasone propionate 50 1 spray intranasal BID 30 days #16 06/24/22 mcg/actuation nasal grams spray,suspension (Flonase Allergy Relief) codeine 10 mg-guaifenesin 100 mg/5 10 ml PO Q4-6H PRN allergy 06/25/22 mL oral liquid symptoms 10 days #237 mL acetaminophen 325 mg tablet 650 mg PO Q6H PRN pain #30 tabs 08/19/22 (Tylenol) prednisone 20 mg tablet 40 mg PO DAILY 5 days #10 tabs 08/19/22 fluticasone propionate 115 2 puff inhalation Q12H 30 days #1 09/07/22 mcg-salmeterol 21 mcg/actuation ea HFA inhaler (Advair HFA) Allergies Allergy/AdvReac Type Severity Reaction Status Date / Time Iodinated Contrast Media Allergy Severe Unknown Verified 09/13/22 12:35 ibuprofen [From MOTRIN] Allergy Unknown KIDNEY Verified 09/13/22 12:35 ISSUES mushroom AdvReac Mild VOMITING Verified 09/13/22 12:35 amlodipine AdvReac Unknown Swelling Verified 09/13/22 12:35 Review of Systems Review of Systems: Positive abdominal pain. Positive shortness of breath Yes all other systems are reviewed and are negative PMFSH Past Medical History Attestation statement: The following information was validated with the patient. 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 Arthritis Asthma Asthma with exacerbation Hypertension Surgical History H/O kidney removal H/O neck surgery History of unilateral nephrectomy Previous back surgery Family History Family History Mother Hypertension Asthma Father Medical history unknown Social History Social History Household Members: None Housing: House Do you presently have visiting nurse or other home services: No Alcohol intake: current Alcohol intake frequency: holidays/special occasions only Alcohol type: beer Patient Tobacco Use Status: Current everyday Tobacco user Tobacco use type: Cigarette Cigarettes Per Day: 4 Years Smoked: 20 years Smoked in Last 30 Days: Yes e-Cigarette/Vaping Use: Former Use Second Hand Smoke Exposure: No Use of substances other than those prescribed or required for medical reasons: No Advance Directives: No Advance Directives Information Provided: No service: No Current occupational status: employed Physical Exam ED Vital Signs: Vital Signs - 24 hr 09/13/22 12:36 09/13/22 16:05 09/13/22 18:35 Temperature 96.9 F 96.8 F 97.7 F Pulse Rate 109 H 88 87 Respiratory Rate 18 18 20 Blood Pressure 149/91 H 149/89 H 148/85 H Pulse Oximetry 95 97 97 Oxygen Delivery Method Room Air Room Air Room Air 09/13/22 18:55 09/13/22 20:25 Temperature 97.7 F Pulse Rate 87 89 Respiratory Rate 19 19 Blood Pressure 112/71 Pulse Oximetry 96 Oxygen Delivery Method Room Air BMI result Body Mass Index 34.4 Appearance: Alert. Oriented X3. No acute distress. Eyes: Pupils equal, round and reactive to light. ENT: Pharynx normal. Neck: Normal inspection. Neck supple. No lymph nodes noted. No crepitus CVS: Normal heart rate and rhythm. Pulses normal. Normal S1 and S2 Respiratory: No respiratory distress. Breath sounds normal. Positive Wheezing. No rales Abdomen: Soft and nontender. No rigidity. No distention. good BS x4 Skin: Skin warm and dry. Normal skin color. Normal skin turgor. Extremities: No lower extremity edema. Neurovascular intact to all extremities. No Lacerations. No Rash Neuro: Oriented X 3. No motor deficit. No sensory deficit. Moving all extermities. No slurred speech Course Course Course Narrative: TRISTON GILLIS 52-year-old male presents for evaluation of chest pain, heartburn and shortness of breath. Patient with a history of asthma in feels his heartburn is contributing to an asthma attack. He also reports waking up at night gasping for air. EKG was done in triage and is nonischemic. Plan for labs Medications Administered Generic Name Dose Route Start Last Admin Trade Name Freq PRN Reason Stop Dose Admin Sodium Chloride 1,000 mls @ 999 mls/hr 09/13/22 21:00 09/13/22 21:30 Ns IV 09/13/22 22:00 999 mls/hr .Q1H1M JUAN Administration Sodium Chloride 1,000 mls @ 999 mls/hr 09/13/22 21:00 09/13/22 21:30 Ns IV 09/13/22 22:00 999 mls/hr .Q1H1M JUAN Administration Discontinued Medications Generic Name Dose Route Start Last Admin Trade Name Freq PRN Reason Stop Dose Admin Al Hydroxide/Mg Hydroxide 30 ml 09/13/22 18:05 09/13/22 18:45 Magnesium Hydrox/Alum Hydrox 30 Ml Oral.Susp PO 09/13/22 18:06 30 ml ONCE ONE Administration Albuterol/Ipratropium 3 ml 09/13/22 18:05 09/13/22 18:52 Albuterol/Iprat 2.5/0.5mg 3 Ml Ampul.Neb INHALE 09/13/22 18:06 3 ml ONCE ONE Administration Sodium Chloride 1,000 mls @ 999 mls/hr 09/13/22 18:15 09/13/22 20:28 Ns IV 09/13/22 19:15 Infused .Q1H1M JUAN Infusion Sodium Chloride 1,000 mls @ 999 mls/hr 09/13/22 20:15 09/13/22 21:29 Ns IV 09/13/22 21:15 Infused .Q1H1M JUAN Infusion Ceftriaxone Sodium 1 gm/ 50 mls @ 100 mls/hr 09/13/22 20:08 09/13/22 21:02 Sodium Chloride IV 09/13/22 20:37 Infused ONCE ONE Infusion Methylprednisolone Sodium Succinate 125 mg 09/13/22 18:05 09/13/22 18:46 Methylprednisolone Sod Succ 125 Mg/2 Ml Vial IVPUSH 09/13/22 18:06 125 mg ONCE ONE Administration Medical Decision Making Medical Decision Making MDM Narrative: Positive abdominal pain in the epigastric area nausea generalized malaise decreased p.o. intake patient felt when he sat up it improves. Positive burning sensation in the epigastric area. CT scan of the abdomen pelvis showed no acute finding. No obstruction or abscess no perforation patient's labs showed an elevated white count. There is a bandemia. Question etiology. On interpretation of patient's chest x-ray was negative. No evidence for pneumonia no evidence of pneumothorax. Patient's electrolytes did show elevated BUN and creatinine. Consistent with dehydration. IV fluid was started. Patient is approximately 100 kilos. Will give a full 3 L of fluids. Recheck lactate. There is no source. Two sets of cardiac enzymes was done. There were negative. My interpretation patient's EKG just shows sinus tachycardia. Consistent with the dehydration picture. Not consistent with ACS. Patient's case discussed with the hospitalist team. Will admit for further evaluation of patient's dehydration bandemia. In stable condition. Patient's lactate could be from albuterol treatment. Differential Diagnosis Differential Diagnoses: The differential diagnosis associated with the presentation includes Abdominal pain, dehydration, pancreatitis, biliary disease, pneumonia, ACS Admission/Observation Consideration of admission/observation: Escalation of care including admission/observation considered Consult Healthcare Provider Management of the patient was discussed with: Hospitalist Lab Data MDM Lab Attestation statement: I reviewed the patient's lab results. 09/13/22 13:31 09/13/22 13:31 Labs: Lab Results 09/13/22 09/13/22 09/13/22 Range/Units 13:31 13:31 13:31 WBC 24.1 H (4.8-10.8) X10*3/uL RBC 5.10 (4.60-5.80) X10*6/uL Hgb 15.9 (14.0-18.0) g/dl Hct 47.5 (42.0-52.0) % MCV 93.1 (80.0-98.0) fL MCH 31.2 (27.0-33.0) pg MCHC 33.5 (31.0-36.0) g/dl RDW 13.8 (11.0-16.0) % Plt Count 256 (160-400) X10*3/uL MPV 11.5 (9.4-12.4) fL Immature Gran % (Auto) Cancelled Neut % (Auto) Cancelled Lymph % (Auto) Cancelled [place] % (Auto) Cancelled Eos % (Auto) Cancelled Baso % (Auto) Cancelled Lymph # (Auto) Cancelled [place] # (Auto) Cancelled Eos # (Auto) Cancelled Baso # (Auto) Cancelled Abs Immat Gran (auto) Cancelled Absolute Neuts (auto) Cancelled Absolute Nucleated RBC 0.000 (0.0-0.012) X10*3/uL Nucleated RBC % (auto) 0.0 (0.0-0.2) /100WBC Neutrophils % (Manual) 63 (45-73) % Band Neutrophils % 24 H (3-5) % Lymphocytes % (Manual) 4 L (20-40) % Monocytes % (Manual) 3 (2-11) % Basophils % (Manual) 1 (0-2) % Metamyelocytes % 5 % Abs Neuts (Manual) 21.0 H (2.0-8.3) X10*3/uL Lymphocytes # (Manual) 1.0 L (1.2-4.9) X10*3/uL Monocytes # (Manual) 0.7 (0.1-1.2) X10*3/uL Basophils # (Manual) 0.2 (0.0-0.2) X10*3/uL Metamyelocytes # 1.2 X10*3/uL Platelet Estimate NORMAL (NORMAL) Plt Morphology Comment NORMAL RBC Morphology NORMAL PT 10.7 (10.0-13.1) SEC INR 0.9 (0.9-1.1) APTT 24.2 L (26.0-36.4) SEC Sodium 138 (135-145) mmol/L Potassium 5.0 (3.3-5.1) mmol/L Chloride 105 (96-108) mmol/L Carbon Dioxide 23 (22-29) mmol/L Anion Gap 15 (12-20) BUN 37 H (9-16) mg/dL Creatinine 1.52 H (0.5-1.4) mg/dL Estim Creat Clear Calc 60.4 Estimated GFR 48 Random Glucose 145 H (60-115) mg/dL Lactic Acid (0.5-2.0) mmol/L Calcium 9.7 (8.4-10.2) mg/dL Total Bilirubin 0.7 (0.0-1.0) mg/dL AST 15 (5-37) U/L ALT 32 (0-40) U/L Alkaline Phosphatase 60 (39-117) U/L Troponin I High Sens (<3.5-35.0) ng/L Total Protein 7.5 (6.5-8.0) g/dL Albumin 4.4 (3.5-5.0) g/dL Lipase 30 (8-78) U/L Urine Color Urine Appearance Urine pH (5.0-9.0) Ur Specific [place] (1.005-1.025) Urine Protein (Neg-Trace) mg/dL Urine Glucose (UA) (Negative) mg/dL Urine Ketones (Negative) mg/dL Urine Blood (Negative) Urine Nitrite (Negative) Ur Leukocyte Esterase (Negative) 09/13/22 09/13/22 09/13/22 Range/Units 13:31 18:32 20:16 WBC (4.8-10.8) X10*3/uL RBC (4.60-5.80) X10*6/uL Hgb (14.0-18.0) g/dl Hct (42.0-52.0) % MCV (80.0-98.0) fL MCH (27.0-33.0) pg MCHC (31.0-36.0) g/dl RDW (11.0-16.0) % Plt Count (160-400) X10*3/uL MPV (9.4-12.4) fL Immature Gran % (Auto) Neut % (Auto) Lymph % (Auto) [place] % (Auto) Eos % (Auto) Baso % (Auto) Lymph # (Auto) [place] # (Auto) Eos # (Auto) Baso # (Auto) Abs Immat Gran (auto) Absolute Neuts (auto) Absolute Nucleated RBC (0.0-0.012) X10*3/uL Nucleated RBC % (auto) (0.0-0.2) /100WBC Neutrophils % (Manual) (45-73) % Band Neutrophils % (3-5) % Lymphocytes % (Manual) (20-40) % Monocytes % (Manual) (2-11) % Basophils % (Manual) (0-2) % Metamyelocytes % % Abs Neuts (Manual) (2.0-8.3) X10*3/uL Lymphocytes # (Manual) (1.2-4.9) X10*3/uL Monocytes # (Manual) (0.1-1.2) X10*3/uL Basophils # (Manual) (0.0-0.2) X10*3/uL Metamyelocytes # X10*3/uL Platelet Estimate (NORMAL) Plt Morphology Comment RBC Morphology PT (10.0-13.1) SEC INR (0.9-1.1) APTT (26.0-36.4) SEC Sodium (135-145) mmol/L Potassium (3.3-5.1) mmol/L Chloride (96-108) mmol/L Carbon Dioxide (22-29) mmol/L Anion Gap (12-20) BUN (9-16) mg/dL Creatinine (0.5-1.4) mg/dL Estim Creat Clear Calc Estimated GFR Random Glucose (60-115) mg/dL Lactic Acid (0.5-2.0) mmol/L Calcium (8.4-10.2) mg/dL Total Bilirubin (0.0-1.0) mg/dL AST (5-37) U/L ALT (0-40) U/L Alkaline Phosphatase (39-117) U/L Troponin I High Sens 13.5 10.6 (<3.5-35.0) ng/L Total Protein (6.5-8.0) g/dL Albumin (3.5-5.0) g/dL Lipase (8-78) U/L Urine Color Yellow Urine Appearance Clear Urine pH 6.5 (5.0-9.0) Ur Specific [place] 1.020 (1.005-1.025) Urine Protein Trace (Neg-Trace) mg/dL Urine Glucose (UA) Negative (Negative) mg/dL Urine Ketones Negative (Negative) mg/dL Urine Blood Negative (Negative) Urine Nitrite Negative (Negative) Ur Leukocyte Esterase Negative (Negative) 09/13/22 Range/Units 20:16 WBC (4.8-10.8) X10*3/uL RBC (4.60-5.80) X10*6/uL Hgb (14.0-18.0) g/dl Hct (42.0-52.0) % MCV (80.0-98.0) fL MCH (27.0-33.0) pg MCHC (31.0-36.0) g/dl RDW (11.0-16.0) % Plt Count (160-400) X10*3/uL MPV (9.4-12.4) fL Immature Gran % (Auto) Neut % (Auto) Lymph % (Auto) [place] % (Auto) Eos % (Auto) Baso % (Auto) Lymph # (Auto) [place] # (Auto) Eos # (Auto) Baso # (Auto) Abs Immat Gran (auto) Absolute Neuts (auto) Absolute Nucleated RBC (0.0-0.012) X10*3/uL Nucleated RBC % (auto) (0.0-0.2) /100WBC Neutrophils % (Manual) (45-73) % Band Neutrophils % (3-5) % Lymphocytes % (Manual) (20-40) % Monocytes % (Manual) (2-11) % Basophils % (Manual) (0-2) % Metamyelocytes % % Abs Neuts (Manual) (2.0-8.3) X10*3/uL Lymphocytes # (Manual) (1.2-4.9) X10*3/uL Monocytes # (Manual) (0.1-1.2) X10*3/uL Basophils # (Manual) (0.0-0.2) X10*3/uL Metamyelocytes # X10*3/uL Platelet Estimate (NORMAL) Plt Morphology Comment RBC Morphology PT (10.0-13.1) SEC INR (0.9-1.1) APTT (26.0-36.4) SEC Sodium (135-145) mmol/L Potassium (3.3-5.1) mmol/L Chloride (96-108) mmol/L Carbon Dioxide (22-29) mmol/L Anion Gap (12-20) BUN (9-16) mg/dL Creatinine (0.5-1.4) mg/dL Estim Creat Clear Calc Estimated GFR Random Glucose (60-115) mg/dL Lactic Acid 2.4 H* (0.5-2.0) mmol/L Calcium (8.4-10.2) mg/dL Total Bilirubin (0.0-1.0) mg/dL AST (5-37) U/L ALT (0-40) U/L Alkaline Phosphatase (39-117) U/L Troponin I High Sens (<3.5-35.0) ng/L Total Protein (6.5-8.0) g/dL Albumin (3.5-5.0) g/dL Lipase (8-78) U/L Urine Color Urine Appearance Urine pH (5.0-9.0) Ur Specific [place] (1.005-1.025) Urine Protein (Neg-Trace) mg/dL Urine Glucose (UA) (Negative) mg/dL Urine Ketones (Negative) mg/dL Urine Blood (Negative) Urine Nitrite (Negative) Ur Leukocyte Esterase (Negative) Independent Interpretation I performed an independent interpretation of an: EKG and Plain X-Ray Interpretation: Sinus heart rate is 100 MO QRS QT within normal limits is no acute ST segment elevation Chest x-ray showed no pneumonia no pneumothorax Radiology Impression Discussion of test interpretation with radiology: I have reviewed the radiologist's reading. Chronic Conditions Asthma Discharge Plan Discharge Clinical Impression: Asthma, Chest pain, Acute dehydration Prescriptions: No Action Xolair 150 mg recon soln 225 mg subcut Q2W 28 Days Qty: 3 12RF Rx Instructions: requires multiple injection sites; do not exceed 150 mg per injection site dexamethasone 1 mg tablet 1 mg PO ONCE Qty: 1 0RF codeine-guaifenesin 10-100 mg/5 mL liquid 10 ml PO Q4-6H PRN (Reason: allergy symptoms) 10 Days Qty: 237 0RF Combivent Respimat 20-100 mcg/actuation mist 1 - 2 puff PO QID pregabalin [Lyrica] 150 mg Capsule 150 mg PO BID montelukast 10 mg tablet 1 tab PO BEDTIME albuterol sulfate 1.25 mg/3 mL solution for nebulization 1.25 mg inhalation QID PRN (Reason: shortness of breath or wheezing) Qty: 75 0RF cefpodoxime 200 mg tablet 200 mg PO BID Qty: 10 0RF Rx Instructions: must administer with a meal/food lidocaine [Lidoderm] 5 % adhesive patch,medicated 1 patch topical DAILY MDD remove after 12 hours PRN (Reason: pain) Qty: 30 0RF Rx Instructions: leave on most painful area for up to 12 hrs cyclobenzaprine 5 mg tablet 5 mg PO Q8H PRN (Reason: pain (scale score 7-10)) 5 Days Qty: 14 0RF acetaminophen [Tylenol] 325 mg tablet 325 mg PO QID PRN (Reason: pain) Qty: 90 0RF benzonatate 100 mg capsule 100 mg PO BID PRN (Reason: cough) Qty: 20 0RF albuterol sulfate 90 mcg/actuation HFA aerosol inhaler 1 inh inhalation QID PRN (Reason: shortness of breath or wheezing) Qty: 6.7 0RF loratadine 10 mg tablet 1 tab PO DAILY prednisone 20 mg tablet 40 mg PO DAILY 5 Days Qty: 10 0RF acetaminophen [Tylenol] 325 mg tablet 650 mg PO Q6H PRN (Reason: pain) Qty: 30 0RF lisinopril 10 mg tablet 10 mg PO DAILY fluticasone propionate [Flonase Allergy Relief] 50 mcg/actuation spray,suspension 1 spray intranasal BID 30 Days Qty: 16 6RF Rx Instructions: administer into each nostril fluticasone propion-salmeterol [Advair HFA] 115-21 mcg/actuation HFA aerosol inhaler 2 puff inhalation Q12H 30 Days Qty: 1 6RF
[2022-09-13 13:48] LABS: Hematocrit 47.5 % (42.0-52.0); Hemoglobin 15.9 g/dl (14.0-18.0); Mean Corpuscular HGB Conc 33.5 g/dl (31.0-36.0); Mean Corpuscular Hemoglobin 31.2 pg (27.0-33.0); Mean Corpuscular Volume 93.1 fL (80.0-98.0); Mean Platelet Volume 11.5 fL (9.4-12.4); Platelet Count 256 X10*3/uL (160-400); Red Cell Distribution Width 13.8 % (11.0-16.0)
[2022-09-13 13:53] LABS: WBC ABN SCTR FOR CBC 1
[2022-09-13 13:59] LABS: Alanine Aminotransferase 32 U/L (0-40); Albumin Level 4.4 g/dL (3.5-5.0); Alkaline Phosphatase 60 U/L (39-117); Anion Gap 15 (12-20); Aspartate Amino Transferase 15 U/L (5-37); Bilirubin Total 0.7 mg/dL (0.0-1.0); Blood Urea Nitrogen 37 mg/dL (9-16); Calcium 9.7 mg/dL (8.4-10.2); Carbon Dioxide 23 mmol/L (22-29); Chloride 105 mmol/L (96-108); Creatinine Clr Calc Pharmacy 60.4; Estimated Glomerular Filt Rate 48; Glucose Random 145 mg/dL (60-115); Lipase 30 U/L (8-78); Sodium 138 mmol/L (135-145); Total Protein 7.5 g/dL (6.5-8.0)
[2022-09-13 14:07] LABS: Troponin-I High Sensitivity 13.5 ng/L (<3.5-35.0)
[2022-09-13 14:15] LABS: INTERNATIONAL NORM RATIO 0.9 (0.9-1.1); Prothrombin Time 10.7 SEC (10.0-13.1)
[2022-09-13 14:18] LABS: Neutrophils Percent Manual 63 % (45-73); Partial Thromboplastin Time 24.2 SEC (26.0-36.4)
[2022-09-13 14:21] LABS: Band Neutrophils Percent 24 % (3-5); Basophils Percent Manual 1 % (0-2); Lymphocytes Percent Manual 4 % (20-40); Metamyelocytes Percent 5 %; Monocytes Percent Manual 3 % (2-11)
[2022-09-13 14:22] LABS: Platelet Estimate NORMAL (NORMAL); Platelet Morphology Comment NORMAL; RBC Morphology NORMAL
[2022-09-13 14:26] LABS: Basophils Abs Manual 0.2 X10*3/uL (0.0-0.2); Metamyelocytes Absolute 1.2 X10*3/uL; Monocytes Absolute Manual 0.7 X10*3/uL (0.1-1.2); White Blood Count 24.1 X10*3/uL (4.8-10.8)
[2022-09-13 16:05] VITALS: BP 149/89; PULSE 88; RESP 18; TEMP 36; O2SAT 97
[2022-09-13 18:35] VITALS: BP 148/85; PULSE 87; RESP 20; TEMP 36.5; O2SAT 97
[2022-09-13 18:40] LABS: Appearance Urine Clear; Color Urine Yellow; Glucose Urine UA Negative (Negative); Leukocyte Esterase Urine Negative (Negative); Nitrite Urine Negative (Negative); PH 6.5 (5.0-9.0); Urine Blood Negative (Negative); Urine Ketones Negative (Negative); Urine Protein Trace mg/dL (Neg-Trace)
[2022-09-13] MEDS: Magnesium Hydrox/Alum Hydrox 30 ML ORAL.SUSP PO (18:45)
[2022-09-13] MEDS: 0.9 % Sodium Chloride 1,000 ML 999 ML IV ×4 (18:46→21:30)
[2022-09-13] MEDS: methylPREDNISolone Sod Succ 125 MG/2 ML VIAL IVPUSH (18:46)
[2022-09-13] MEDS: Albuterol/Iprat 2.5/0.5MG 3 ML AMPUL.NEB INHALE (18:52)
--- NOTE | 2022-09-13 18:52 | PC.NURSE ---
20g IV placed in the right AC w/o complications - IVF and medications administered per provider order, RT bedside providing albuterol treatment.
[2022-09-13 18:55] VITALS: PULSE 87; RESP 19; O2SAT 96
[2022-09-13 20:25] VITALS: BP 112/71; PULSE 89; RESP 19; TEMP 36.5; O2SAT 96
[2022-09-13] MEDS: cefTRIAXone sodium 1 GM in 0.9 % Sodium Chloride 50 ML IV (20:32)
[2022-09-13 20:51] LABS: Lactic Acid 2.4 mmol/L (0.5-2.0)
[2022-09-13 21:04] LABS: Troponin-I High Sensitivity 10.6 ng/L (<3.5-35.0)
--- NOTE | 2022-09-13 21:52 | PHA.MEDREC ---
Pharmacy Consult ? Medication Reconciliation Pharmacy has completed the medication reconciliation. Patient confirmed all medications. Reports his dexamethasone was 2 tabs x 4 days and 1 tab x 8 days, and that he is now on the 1 tab for 8 days. Patient has no clue what sertraline is. Marium Schulz, PharmD
[2022-09-13 22:29] LABS: Reflex Lactate? Lactic Acid Added
--- NOTE | 2022-09-13 22:42 | PM.IMHP ---
History of Present Illness Date of Service: 09/13/22 Chief Complaint: abd pain 52-year-old male with reported history of asthma, comes into the hospital with complaints of abdominal pain. Patient reports that the pain started on Tuesday, it occurs while he is laying down, he feels significant start comfort all over his stomach that radiates to the chest, feels like burning heat, 10 makes him jump up. Patient reports that he has had poor sleep as a result, and has not had any recent leave. This pain is intermittent, occurs worse at rest, reports no chest pain, no palpitations, no diarrhea or constipation, no nausea or vomiting, no urinary symptoms and no lower extremity edema. He reports feeling chills 2 days prior but no fever. As a result of this abdominal pain patient has had poor oral intake and has not been eating or drinking appropriately. On arrival to the ED patient hemodynamically stable no significant abnormal vitals Labs are significant for WBC count of 24, evidence of bandemia, creatinine of 1.52 with a baseline less than 1, lactic acid of 2.4, Negative UA. Abdominal pelvic CT negative for any acute abnormality. Patient presents to have pain, and poor tolerance of p.o. intake therefore will be admitted for further management Review of Systems Review of Systems: Yes all other systems are reviewed and are negative COUNT INCLUDES THE [facility] 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 Arthritis Asthma Asthma with exacerbation Hypertension Family History Mother Hypertension Asthma Father Medical history unknown Surgical History H/O kidney removal H/O neck surgery History of unilateral nephrectomy Previous back surgery Social History Household Members: None Housing: House Do you presently have visiting nurse or other home services: No Alcohol intake: current Alcohol intake frequency: holidays/special occasions only Alcohol type: beer Patient Tobacco Use Status: Current everyday Tobacco user Tobacco use type: Cigarette Cigarettes Per Day: 4 Years Smoked: 20 years Smoked in Last 30 Days: Yes e-Cigarette/Vaping Use: Former Use Second Hand Smoke Exposure: No Use of substances other than those prescribed or required for medical reasons: No Advance Directives: No Advance Directives Information Provided: No service: No Current occupational status: employed Meds Allergies Allergy/AdvReac Type Severity Reaction Status Date / Time Iodinated Contrast Media Allergy Severe Unknown Verified 09/13/22 12:35 ibuprofen [From MOTRIN] Allergy Unknown KIDNEY Verified 09/13/22 12:35 ISSUES mushroom AdvReac Mild VOMITING Verified 09/13/22 12:35 amlodipine AdvReac Unknown Swelling Verified 09/13/22 12:35 Home Medications Medication Instructions Recorded Confirmed Last Taken Type pregabalin 150 mg capsule (Lyrica) 150 mg PO BID 11/26/19 09/13/22 08/30/21 History montelukast 10 mg tablet 1 tab PO BEDTIME 09/14/20 09/13/22 08/30/21 History ipratropium 20 mcg-albuterol 100 2 puff PO BID 09/22/20 09/13/22 08/30/21 History mcg/actuation mist for inhalation (Combivent Respimat) loratadine 10 mg tablet 1 tab PO DAILY 08/31/21 09/13/22 08/30/21 History lisinopril 10 mg tablet 10 mg PO DAILY 05/11/22 09/13/22 Unknown History dexamethasone 4 mg tablet 4 mg PO DAILY 09/13/22 09/13/22 Unknown History Physical Exam Vital Signs and Narrative: Vital Signs: Last Vital Signs Temp 97.7 F 09/13/22 20:25 Pulse 89 09/13/22 20:25 Resp 19 09/13/22 20:25 BP 112/71 09/13/22 20:25 Pulse Ox 96 09/13/22 20:25 O2 Del Method Room Air 09/13/22 20:25 BMI result Body Mass Index 34.4 Const: General: cooperative and no acute distress Orientation/consciousness: patient oriented x3 Eyes: General: appearance normal, both eyes and all related structures Resp: Effort & Inspection: normal respiratory effort Auscultation: clear to auscultation bilaterally Cardio: Rate: regular rate Rhythm: regular rhythm GI: Other: Abdomen is mildly tender worse at the epigastric region, no rebound or guarding Palpation (GI): Soft to palpation Auscultation: normal bowel sounds Skin: General skin exam: no rashes or lesions noted Neuro: General: patient oriented x3 Cognition (Neuro): normal cognition Extrem: General: Yes normal to inspection and Yes no pedal edema Results Labs 09/13/22 13:31 09/13/22 13:31 Labs: Laboratory Results - last 24 hr 09/13/22 09/13/22 09/13/22 13:31 13:31 13:31 MCV 93.1 MCH 31.2 MCHC 33.5 RDW 13.8 Plt Count 256 MPV 11.5 Immature Gran % (Auto) Cancelled Neut % (Auto) Cancelled Lymph % (Auto) Cancelled [place] % (Auto) Cancelled Eos % (Auto) Cancelled Baso % (Auto) Cancelled Lymph # (Auto) Cancelled [place] # (Auto) Cancelled Eos # (Auto) Cancelled Baso # (Auto) Cancelled Abs Immat Gran (auto) Cancelled Absolute Neuts (auto) Cancelled Absolute Nucleated RBC 0.000 Nucleated RBC % (auto) 0.0 Neutrophils % (Manual) 63 Band Neutrophils % 24 H Lymphocytes % (Manual) 4 L Monocytes % (Manual) 3 Basophils % (Manual) 1 Metamyelocytes % 5 Abs Neuts (Manual) 21.0 H Lymphocytes # (Manual) 1.0 L Monocytes # (Manual) 0.7 Basophils # (Manual) 0.2 Metamyelocytes # 1.2 Platelet Estimate NORMAL Plt Morphology Comment NORMAL RBC Morphology NORMAL PT 10.7 INR 0.9 APTT 24.2 L Anion Gap 15 Estim Creat Clear Calc 60.4 Estimated GFR 48 Random Glucose 145 H Lactic Acid Calcium 9.7 Total Bilirubin 0.7 AST 15 ALT 32 Alkaline Phosphatase 60 Total Protein 7.5 Albumin 4.4 Lipase 30 Urine Color Urine Appearance Urine pH Ur Specific [place] Urine Protein Urine Glucose (UA) Urine Ketones Urine Blood Urine Nitrite Ur Leukocyte Esterase 09/13/22 09/13/22 18:32 20:16 MCV MCH MCHC RDW Plt Count MPV Immature Gran % (Auto) Neut % (Auto) Lymph % (Auto) [place] % (Auto) Eos % (Auto) Baso % (Auto) Lymph # (Auto) [place] # (Auto) Eos # (Auto) Baso # (Auto) Abs Immat Gran (auto) Absolute Neuts (auto) Absolute Nucleated RBC Nucleated RBC % (auto) Neutrophils % (Manual) Band Neutrophils % Lymphocytes % (Manual) Monocytes % (Manual) Basophils % (Manual) Metamyelocytes % Abs Neuts (Manual) Lymphocytes # (Manual) Monocytes # (Manual) Basophils # (Manual) Metamyelocytes # Platelet Estimate Plt Morphology Comment RBC Morphology PT INR APTT Anion Gap Estim Creat Clear Calc Estimated GFR Random Glucose Lactic Acid 2.4 H* Calcium Total Bilirubin AST ALT Alkaline Phosphatase Total Protein Albumin Lipase Urine Color Yellow Urine Appearance Clear Urine pH 6.5 Ur Specific [place] 1.020 Urine Protein Trace Urine Glucose (UA) Negative Urine Ketones Negative Urine Blood Negative Urine Nitrite Negative Ur Leukocyte Esterase Negative Imaging Radiologist's Impressions: Impressions Chest X-Ray 09/13/22 15:05 IMPRESSION: No acute cardiopulmonary process. Abdomen/Pelvis CT 09/13/22 18:39 IMPRESSION: Chronic appearing and postoperative changes similar to the prior study. I do not appreciate any acute intra-abdominal process. Assessment and Plan (1) Abdominal pain: Status: Acute (2) HO (acute kidney injury): Status: Acute (3) Acute dehydration: Status: Acute Plan 52-year-old male with past medical history of asthma, and cortical adrenal adenoma comes into the hospital with complaints of abdominal discomfort found to have HO # abdominal discomfort, pain - likely secondary to acid reflux - troponin, abdominal pelvic CT negative with no evidence of acute findings - will treat with PPI 40 b.i.d. - monitor symptoms - Keep NPO and advance p.o. as tolerated # HO - near to dehydration - started on IV fluids - follow BMP # leukocytosis - likely secondary to dehydration, and reactive - no evidence of infection acutely - will follow CBC and blood cultures - off on starting antibiotics at this time # lactic acidosis - secondary to dehydration - continue IVF - trend # asthma - not in exacerbation - continue home inhalers DVT prophylaxis: Early ambulation Time Spent With Patient Time: Total time managing care of this patient today ____ minutes. Quality Stroke Does the patient have a stroke diagnosis?: No VTE Prior VTE?: No VTE Risk Level:: Medical - low VTE Device Contraindication: Treatment Not Indicated VTE Drug Contraindication: Treatment Not Indicated
[2022-09-13 23:00] VITALS: BP 136/90; PULSE 77; RESP 17; TEMP 36.6; O2SAT 98
[2022-09-13 23:18] LABS: ~Lactic Acid-LAB USE ONLY 3.3 mmol/L (0.5-2.0)
--- NOTE | 2022-09-13 23:20 | PC.NURSE ---
critical lactic acid 3.3. this rn made dr hairston aware. no new orders
--- NOTE | 2022-09-13 23:56 | PC.NURSE ---
pt NPO orders in place. per dr hairston po meds, ice, and water are okay. per due to abd pain not yet controlled will attempted food trial in am.
[2022-09-13] MEDS: Lactated Ringers 1,000 ML 100 ML IVCONT (23:58)
[2022-09-13] MEDS: Omeprazole 40 MG CAPSULE.DR PO (23:59)
[2022-09-14] VITALS (9 sets, daily range): BP systolic 116–141; BP diastolic 56–90; PULSE 74–98; RESP 16–22; TEMP 36.3–37.2; O2SAT 96–99
[2022-09-14 00:46] LABS: Reflex Lactate? 2 Y
[2022-09-14 01:32] LABS: ~Lactic Acid-LAB USE ONLY 2.6 mmol/L (0.5-2.0)
--- NOTE | 2022-09-14 01:33 | PC.NURSE ---
critical [place] 2.6. dr hairston made aware. no new orders. IVF infusing
--- NOTE | 2022-09-14 05:00 | PC.NURSE ---
pt ambulatory to restroom independently. pt calm and cooperative.
[2022-09-14 06:03] LABS: Hematocrit 39.5 % (42.0-52.0); Hemoglobin 12.9 g/dl (14.0-18.0); Mean Corpuscular HGB Conc 32.7 g/dl (31.0-36.0); Mean Corpuscular Hemoglobin 30.9 pg (27.0-33.0); Mean Corpuscular Volume 94.5 fL (80.0-98.0); Mean Platelet Volume 10.9 fL (9.4-12.4); Platelet Count 197 X10*3/uL (160-400); Red Blood Count 4.18 X10*6/uL (4.60-5.80); Red Cell Distribution Width 13.7 % (11.0-16.0)
[2022-09-14 06:31] LABS: Band Neutrophils Percent 6 % (3-5); Lymphocytes Absolute Manual 0.6 X10*3/uL (1.2-4.9); Lymphocytes Percent Manual 3 % (20-40); Metamyelocytes Absolute 0.2 X10*3/uL; Metamyelocytes Percent 1 %; Monocytes Absolute Manual 0.2 X10*3/uL (0.1-1.2); Monocytes Percent Manual 1 % (2-11); Myelocytes Absolute 0.4 X10*/uL; Myelocytes Percent 2 %; Neutrophils Absolute Manual 17.7 X10*3/uL (2.0-8.3); Neutrophils Percent Manual 87 % (45-73); Platelet Estimate SLIGHTLY DECREASED (NORMAL); RBC Morphology NOTED
[2022-09-14 06:32] LABS: Burr Cells 1+ (0-2) /OIF; Platelet Morphology Comment NORMAL; Smudge Cells PRESENT; Toxic Vacuolation PRESENT
[2022-09-14] MEDS: Omeprazole 40 MG CAPSULE.DR PO ×2 (06:32→15:36)
[2022-09-14] MEDS: oxyCODONE HCl Immed Release 5 MG TABLET PO ×3 (06:32→22:55)
--- NOTE | 2022-09-14 06:34 | PC.NURSE ---
iv pump repeated alarm for down stream occlusion. this rn placed 20g iv in R hand. pt tolerated well. pt medicated according to mar
[2022-09-14 06:38] LABS: Anion Gap 12 (12-20); Blood Urea Nitrogen 31 mg/dL (9-16); Calcium 8.3 mg/dL (8.4-10.2); Carbon Dioxide 21 mmol/L (22-29); Chloride 107 mmol/L (96-108); Creatinine Clr Calc Pharmacy 88.3; Estimated Glomerular Filt Rate > 60; Glucose Random 163 mg/dL (60-115); Potassium 4.5 mmol/L (3.3-5.1); Sodium 135 mmol/L (135-145)
[2022-09-14] MEDS: Albuterol/Iprat 2.5/0.5MG 3 ML AMPUL.NEB INHALE ×2 (07:27→19:26)
--- NOTE | 2022-09-14 07:40 | PC.NURSE ---
assumed care of pt at this time. axox4, ambulating to bathroom at this time. assessed pt pain; 06/30 abd. pain. all needs met at this time; awaiting bed assignment.
[2022-09-14 07:50] LABS: Lactic Acid 2.1 mmol/L (0.5-2.0)
[2022-09-14] MEDS: Fluticasone/Vilanterol 100/25 BLST.W.DEV 1 PUFF INHALE (08:05)
--- NOTE | 2022-09-14 08:08 | PC.NURSE ---
Critical lactic of 2.[address] Spear made aware, clarified if he wanted a 5th lactic collected, per Dr. Spear he would not like a repeat in 2 hours at this time
[2022-09-14] MEDS: 0.9 % Sodium Chloride Flush 3 ML SYRINGE IVFLUSH ×2 (08:12→20:46)
[2022-09-14] MEDS: dexAMETHasone 4 MG TABLET PO (08:12)
[2022-09-14] MEDS: Pregabalin 150 MG CAPSULE PO ×2 (08:12→20:46)
[2022-09-14] MEDS: Loratadine 10 MG TABLET PO (08:13)
[2022-09-14] MEDS: lisinopriL 10 MG TABLET PO (08:13)
[2022-09-14] MEDS: Lactated Ringers 1,000 ML 100 ML IVCONT ×3 (08:15→22:56)
[2022-09-14] MEDS: Acetaminophen 325 MG TABLET 650 MG PO ×2 (08:17→15:36)
[2022-09-14 09:26] LABS: Reflex Lactate? Lactic Acid Added
--- NOTE | 2022-09-14 11:34 | PC.NURSE ---
report given to [facility] – ada nurse.
--- NOTE | 2022-09-14 16:24 | HO.PM.IMPN ---
Subjective Subjective Date of Service: 09/14/22 Interval History: describes abdominal pain as a fullness in burning that is intermittent exacerbated by food. When further questioned patient has essentially been on steroids over the last 6 weeks for asthma exacerbation/ gout/lumbar radiculopathy. When NPO. . . Pain subsided Review of Systems denies chest pain Denies shortness of breath Denies nausea vomiting diarrhea Denies fever chills Physical Exam Vital Signs: Vital Signs: Last Vital Signs Temp 98.8 F 09/14/22 15:15 Pulse 98 09/14/22 15:15 Resp 18 09/14/22 15:15 BP 116/56 L 09/14/22 15:15 Pulse Ox 96 09/14/22 15:15 O2 Del Method Room Air 09/14/22 15:15 BMI result Body Mass Index 34.4 Const: Other: awake alert oriented x3 no acute distress Resp: Other: clear to auscultation bilaterally no rales rhonchi or Cardio: Other: no S4; positive S1-S2; no S3 murmurs rubs or gallops GI: Other: soft nontender nondistended with Extrem: Other: no edema bilaterally Objective Data Active Medications Acetaminophen (Acetaminophen 325 Mg Tablet) 650 mg PO Q6H PRN PRN Reason: Pain, Mild (Pain Scale 1-3) Last Admin: 09/14/22 15:36 Dose: 650 mg Documented By: ANU Albuterol Sulfate (Albuterol Sulfate (0.042%) 1.25 Mg/3 Ml Vial.Neb) 1.25 mg INHALE QID PRN PRN Reason: shortness of breath or wheezing Albuterol Sulfate (Albuterol Sulfate 90 Mcg 8 Gm Inhaler) 1 puff INHALE QID PRN PRN Reason: shortness of breath or wheezing Albuterol/Ipratropium (Albuterol/Iprat 2.5/0.5mg 3 Ml Ampul.Neb) 3 ml INHALE BID [facility] Last Admin: 09/14/22 07:27 Dose: 3 ml Documented By: KELVIN Fluticasone Propionate (Fluticasone Propionate Nasal 16 Gm [place]) 1 spray NOSTRIL-B BID [facility] Last Admin: 09/14/22 11:34 Dose: Not Given Documented By: FEDERICO Non-Admin Reason: Med Not Available Fluticasone/Vilanterol (Fluticasone/Vilanterol 100/25 Blst.W.Dev) 1 puff INHALE RDAILY [facility] Last Admin: 09/14/22 08:05 Dose: 1 puff Documented By: KELVIN Lactated Ringer's (Lr) 1,000 mls @ 100 mls/hr IVCONT .Q10H [facility] Last Admin: 09/14/22 13:02 Dose: 100 mls/hr Documented By: ANU Lisinopril (Lisinopril 10 Mg Tablet) 10 mg PO DAILY [facility]; Protocol Last Admin: 09/14/22 08:13 Dose: 10 mg Documented By: FEDERICO Loratadine (Loratadine 10 Mg Tablet) 10 mg PO DAILY [facility] Last Admin: 09/14/22 08:13 Dose: 10 mg Documented By: FEDERICO Montelukast Sodium (Montelukast Sodium 10 Mg Tablet) 10 mg PO BEDTIME [facility] Omeprazole (Omeprazole 40 Mg Capsule.Dr) 40 mg PO BID@0630,1630 [facility] Last Admin: 09/14/22 15:36 Dose: 40 mg Documented By: ANU Ondansetron HCl (Ondansetron Hcl 4 Mg/2 Ml Vial) 4 mg IVPUSH Q8H PRN PRN Reason: Nausea and Vomiting Oxycodone HCl (Oxycodone Hcl Immed Release 5 Mg Tablet) 5 mg PO Q6H PRN PRN Reason: Pain, Severe (Pain Scale 7-10) Last Admin: 09/14/22 12:49 Dose: 5 mg Documented By: ANU Pantoprazole Sodium (Pantoprazole Sodium 40 Mg/10 Ml Vial) 40 mg IVPUSH BID@0630,1630 [facility] Pregabalin (Pregabalin 150 Mg Capsule) 150 mg PO BID [facility] Last Admin: 09/14/22 08:12 Dose: 150 mg Documented By: FEDERICO Sodium Chloride (0.9 % Sodium Chloride Flush 3 Ml Syringe) 3 ml IVFLUSH QSHIFT [facility] Last Admin: 09/14/22 15:37 Dose: Not Given Documented By: ANU Non-Admin Reason: IV Running Labs 09/14/22 05:48 09/14/22 05:48 Labs: Laboratory Results - last 24 hr 09/13/22 09/13/22 09/13/22 18:32 20:16 22:40 MCV MCH MCHC RDW Plt Count MPV Immature Gran % (Auto) Neut % (Auto) Lymph % (Auto) [place] % (Auto) Eos % (Auto) Baso % (Auto) Lymph # (Auto) [place] # (Auto) Eos # (Auto) Baso # (Auto) Abs Immat Gran (auto) Absolute Neuts (auto) Absolute Nucleated RBC Nucleated RBC % (auto) Neutrophils % (Manual) Band Neutrophils % Lymphocytes % (Manual) Monocytes % (Manual) Metamyelocytes % Myelocytes % Abs Neuts (Manual) Lymphocytes # (Manual) Monocytes # (Manual) Metamyelocytes # Myelocytes # Smudge Cells Toxic Vacuolation Platelet Estimate Plt Morphology Comment RBC Morphology [place] Cells Anion Gap Estim Creat Clear Calc Estimated GFR Random Glucose Lactic Acid 2.4 H* Lactic Acid F/U @ 2Hr 3.3 H* Lactic Acid F/U @ 4Hr Calcium Urine Color Yellow Urine Appearance Clear Urine pH 6.5 Ur Specific [place] 1.020 Urine Protein Trace Urine Glucose (UA) Negative Urine Ketones Negative Urine Blood Negative Urine Nitrite Negative Ur Leukocyte Esterase Negative 09/14/22 09/14/22 09/14/22 01:02 05:48 05:48 MCV 94.5 MCH 30.9 MCHC 32.7 RDW 13.7 Plt Count 197 MPV 10.9 Immature Gran % (Auto) Cancelled Neut % (Auto) Cancelled Lymph % (Auto) Cancelled [place] % (Auto) Cancelled Eos % (Auto) Cancelled Baso % (Auto) Cancelled Lymph # (Auto) Cancelled [place] # (Auto) Cancelled Eos # (Auto) Cancelled Baso # (Auto) Cancelled Abs Immat Gran (auto) Cancelled Absolute Neuts (auto) Cancelled Absolute Nucleated RBC 0.000 Nucleated RBC % (auto) 0.0 Neutrophils % (Manual) 87 H Band Neutrophils % 6 H Lymphocytes % (Manual) 3 L Monocytes % (Manual) 1 L Metamyelocytes % 1 Myelocytes % 2 Abs Neuts (Manual) 17.7 H Lymphocytes # (Manual) 0.6 L Monocytes # (Manual) 0.2 Metamyelocytes # 0.2 Myelocytes # 0.4 [place] Cells PRESENT Toxic Vacuolation PRESENT Platelet Estimate SLIGHTLY DECREASED Plt Morphology Comment NORMAL RBC Morphology NOTED [place] Cells 1+ (0-2) Anion Gap 12 Estim Creat Clear Calc 88.3 Estimated GFR > 60 Random Glucose 163 H Lactic Acid Lactic Acid F/U @ 2Hr Lactic Acid F/U @ 4Hr 2.6 H* Calcium 8.3 L D Urine Color Urine Appearance Urine pH Ur Specific [place] Urine Protein Urine Glucose (UA) Urine Ketones Urine Blood Urine Nitrite Ur Leukocyte Esterase 09/14/22 07:03 MCV MCH MCHC RDW Plt Count MPV Immature Gran % (Auto) Neut % (Auto) Lymph % (Auto) [place] % (Auto) Eos % (Auto) Baso % (Auto) Lymph # (Auto) [place] # (Auto) Eos # (Auto) Baso # (Auto) Abs Immat Gran (auto) Absolute Neuts (auto) Absolute Nucleated RBC Nucleated RBC % (auto) Neutrophils % (Manual) Band Neutrophils % Lymphocytes % (Manual) Monocytes % (Manual) Metamyelocytes % Myelocytes % Abs Neuts (Manual) Lymphocytes # (Manual) Monocytes # (Manual) Metamyelocytes # Myelocytes # [place] Cells Toxic Vacuolation Platelet Estimate Plt Morphology Comment RBC Morphology [place] Cells Anion Gap Estim Creat Clear Calc Estimated GFR Random Glucose Lactic Acid 2.1 H* Lactic Acid F/U @ 2Hr Lactic Acid F/U @ 4Hr Calcium Urine Color Urine Appearance Urine pH Ur Specific [place] Urine Protein Urine Glucose (UA) Urine Ketones Urine Blood Urine Nitrite Ur Leukocyte Esterase Assessment and Plan (1) Gastritis: Status: Acute (2) HO (acute kidney injury): Status: Acute (3) Asthma: Status: Acute (4) Leukocytosis: Status: Acute Plan 52-year-old male with past medical history of asthma, and cortical adrenal adenoma comes into the hospital with complaints of abdominal discomfort found to have HO. when question has been on courses of prednisone for asthma exacerbation, then course of prednisone for gout, then course of steroids for lumbar radiculopathy 1.Gastritis (secondary to prednisone use) - IV pantoprazole b.i.d. - advance diet as tolerated 2. HO - resolved with volume repletion -follow renals/divalents 3.Leukocytosis - likely secondary to steroid use. - Trend daily 4.Asthma - not in exacerbation - continue home inhalers ambulation full code patient requires ongoing hospitalization to treat gastritis with IV PPI Time Spent With Patient Time: Total time managing care of this patient today ____ minutes. Quality Stroke Does the patient have a stroke diagnosis?: No VTE Prior VTE?: No VTE Risk Level:: Medical - low VTE Device Contraindication: Treatment Not Indicated VTE Drug Contraindication: Treatment Not Indicated
[2022-09-14] MEDS: Pantoprazole Sodium 40 MG/10 ML VIAL IVPUSH (17:55)
[2022-09-14] MEDS: Montelukast Sodium 10 MG TABLET PO (20:46)
[2022-09-14] MEDS: Fluticasone Propionate Nasal 16 GM SPRAY 1 SPRAY NOSTRIL-B (22:55)
[2022-09-15] VITALS (10 sets, daily range): BP systolic 121–147; BP diastolic 71–78; PULSE 71–91; RESP 16–20; TEMP 36–36.9; O2SAT 94–98
[2022-09-15] MEDS: Pantoprazole Sodium 40 MG/10 ML VIAL IVPUSH ×2 (05:56→16:37)
[2022-09-15] MEDS: oxyCODONE HCl Immed Release 5 MG TABLET PO ×3 (05:59→20:08)
[2022-09-15] MEDS: Albuterol/Iprat 2.5/0.5MG 3 ML AMPUL.NEB INHALE ×2 (06:07→19:36)
[2022-09-15] MEDS: Fluticasone/Vilanterol 100/25 BLST.W.DEV 1 PUFF INHALE (08:41)
[2022-09-15] MEDS: Loratadine 10 MG TABLET PO (08:56)
[2022-09-15] MEDS: Lactated Ringers 1,000 ML 100 ML IVCONT ×2 (08:56→18:31)
[2022-09-15] MEDS: Acetaminophen 325 MG TABLET 650 MG PO ×3 (08:56→23:35)
[2022-09-15] MEDS: Pregabalin 150 MG CAPSULE PO ×2 (08:56→20:08)
[2022-09-15] MEDS: lisinopriL 10 MG TABLET PO (08:56)
--- NOTE | 2022-09-15 09:50 | MHC.CM.PN ---
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 PT VERIFIES PCP IS LIMA AGUAYO, JACKIE VACC X4 AND PT REPORTS HIS S.O. ARIEL Moran. [phone] IS HIS HCP AND COPY HAS BEEN REQUESTED. DCP: HOME NO SERVICES, PT WILL DRIVE SELF HOME
--- NOTE | 2022-09-15 16:11 | HO.PM.IMPN ---
Subjective Subjective Date of Service: 09/15/22 Interval History: improved but still some postprandial burning and pain. Review of Systems denies chest pain Denies shortness of breath Denies nausea vomiting diarrhea Denies fever chills Physical Exam Vital Signs: Vital Signs: Last Vital Signs Temp 97.6 F 09/15/22 15:14 Pulse 91 09/15/22 15:14 Resp 16 09/15/22 15:14 BP 123/71 09/15/22 15:14 Pulse Ox 95 09/15/22 15:14 O2 Del Method Room Air 09/15/22 15:14 BMI result Body Mass Index 34.4 Const: Other: awake alert oriented x3 no acute distress Resp: Other: clear to auscultation bilaterally no rales rhonchi or Cardio: Other: no S4; positive S1-S2; no S3 murmurs rubs or gallops GI: Other: soft nontender nondistended with Extrem: Other: no edema bilaterally Objective Data Active Medications Acetaminophen (Acetaminophen 325 Mg Tablet) 650 mg PO Q6H PRN PRN Reason: Pain, Mild (Pain Scale 1-3) Last Admin: 09/15/22 08:56 Dose: 650 mg Documented By: ANU Albuterol Sulfate (Albuterol Sulfate (0.042%) 1.25 Mg/3 Ml Vial.Neb) 1.25 mg INHALE QID PRN PRN Reason: shortness of breath or wheezing Albuterol Sulfate (Albuterol Sulfate 90 Mcg 8 Gm Inhaler) 1 puff INHALE QID PRN PRN Reason: shortness of breath or wheezing Albuterol/Ipratropium (Albuterol/Iprat 2.5/0.5mg 3 Ml Ampul.Neb) 3 ml INHALE BID [facility] Last Admin: 09/15/22 06:07 Dose: 3 ml Documented By: TALIA Fluticasone Propionate (Fluticasone Propionate Nasal 16 Gm [place]) 1 spray NOSTRIL-B BID [facility] Last Admin: 09/15/22 08:56 Dose: Not Given Documented By: ANU Non-Admin Reason: Patient Refused Fluticasone/Vilanterol (Fluticasone/Vilanterol 100/25 Blst.W.Dev) 1 puff INHALE RDAILY [facility] Last Admin: 09/15/22 08:41 Dose: 1 puff Documented By: LYNN Lactated Ringer's (Lr) 1,000 mls @ 100 mls/hr IVCONT .Q10H [facility] Last Admin: 09/15/22 13:10 Dose: Not Given Documented By: ANU Non-Admin Reason: IV Running Lisinopril (Lisinopril 10 Mg Tablet) 10 mg PO DAILY [facility]; Protocol Last Admin: 09/15/22 08:56 Dose: 10 mg Documented By: ANU Loratadine (Loratadine 10 Mg Tablet) 10 mg PO DAILY [facility] Last Admin: 09/15/22 08:56 Dose: 10 mg Documented By: ANU Montelukast Sodium (Montelukast Sodium 10 Mg Tablet) 10 mg PO BEDTIME [facility] Last Admin: 09/14/22 20:46 Dose: 10 mg Documented By: NELSON Ondansetron HCl (Ondansetron Hcl 4 Mg/2 Ml Vial) 4 mg IVPUSH Q8H PRN PRN Reason: Nausea and Vomiting Oxycodone HCl (Oxycodone Hcl Immed Release 5 Mg Tablet) 5 mg PO Q6H PRN PRN Reason: Pain, Severe (Pain Scale 7-10) Last Admin: 09/15/22 12:10 Dose: 5 mg Documented By: ANU Pantoprazole Sodium (Pantoprazole Sodium 40 Mg/10 Ml Vial) 40 mg IVPUSH BID@0630,1630 [facility] Last Admin: 09/15/22 05:56 Dose: 40 mg Documented By: NELSON Pregabalin (Pregabalin 150 Mg Capsule) 150 mg PO BID [facility] Last Admin: 09/15/22 08:56 Dose: 150 mg Documented By: ANU Sodium Chloride (0.9 % Sodium Chloride Flush 3 Ml Syringe) 3 ml IVFLUSH QSHIFT [facility] Last Admin: 09/15/22 08:53 Dose: Not Given Documented By: ANU Non-Admin Reason: IV Running Labs 09/14/22 05:48 09/14/22 05:48 Microbiology Microbiology Results: Microbiology 09/13/22 20:16 Blood Culture - Preliminary Blood - Venous No growth after 24 hours. 09/13/22 20:16 Blood Culture - Preliminary Blood - Venous No growth after 24 hours. Assessment and Plan (1) Gastritis: Status: Acute (2) HO (acute kidney injury): Status: Acute Plan 52-year-old male with past medical history of asthma, and cortical adrenal adenoma comes into the hospital with complaints of abdominal discomfort found to have HO. when question has been on courses of prednisone for asthma exacerbation, then course of prednisone for gout, then course of steroids for lumbar radiculopathy. Slowly improving with therapies 1.Gastritis (secondary to prednisone use) - IV pantoprazole b.i.d. - advance diet tolerated thus far 2. HO - resolved with volume repletion -follow renals/divalents 3.Leukocytosis - likely secondary to steroid use. - Trend daily 4.Asthma - not in exacerbation - continue home inhalers ambulation full code patient requires ongoing hospitalization to treat gastritis with IV PPI Time Spent With Patient Time: Total time managing care of this patient today ____ minutes. Quality Stroke Does the patient have a stroke diagnosis?: No VTE Prior VTE?: No VTE Risk Level:: Medical - low VTE Device Contraindication: Treatment Not Indicated VTE Drug Contraindication: Treatment Not Indicated
[2022-09-15] MEDS: Albuterol Sulfate 90 MCG 8 GM INHALER 1 PUFF INHALE (16:37)
[2022-09-15] MEDS: 0.9 % Sodium Chloride Flush 3 ML SYRINGE IVFLUSH ×2 (16:37→20:08)
[2022-09-15] MEDS: Montelukast Sodium 10 MG TABLET PO (20:08)
[2022-09-15] MEDS: Fluticasone Propionate Nasal 16 GM SPRAY 1 SPRAY NOSTRIL-B (20:09)
[2022-09-16 03:40] VITALS: BP 136/80; PULSE 75; RESP 16; TEMP 36.4; O2SAT 96
[2022-09-16] MEDS: oxyCODONE HCl Immed Release 5 MG TABLET PO ×2 (03:47→10:58)
[2022-09-16] MEDS: Pantoprazole Sodium 40 MG/10 ML VIAL IVPUSH (05:57)
[2022-09-16 06:38] LABS: Hematocrit 44.4 % (42.0-52.0); Hemoglobin 14.9 g/dl (14.0-18.0); Mean Corpuscular HGB Conc 33.6 g/dl (31.0-36.0); Mean Corpuscular Hemoglobin 31.4 pg (27.0-33.0); Mean Corpuscular Volume 93.5 fL (80.0-98.0); Platelet Count 204 X10*3/uL (160-400); Red Blood Count 4.75 X10*6/uL (4.60-5.80); Red Cell Distribution Width 13.7 % (11.0-16.0)
[2022-09-16 06:39] LABS: WBC ABN SCTR FOR CBC 1; White Blood Count 18.3 X10*3/uL (4.8-10.8)
[2022-09-16 06:55] LABS: Alanine Aminotransferase 23 U/L (0-40); Albumin Level 3.6 g/dL (3.5-5.0); Alkaline Phosphatase 49 U/L (39-117); Anion Gap 15 (12-20); Aspartate Amino Transferase 13 U/L (5-37); Bilirubin Total 0.4 mg/dL (0.0-1.0); Blood Urea Nitrogen 27 mg/dL (9-16); Calcium 8.8 mg/dL (8.4-10.2); Carbon Dioxide 21 mmol/L (22-29); Chloride 102 mmol/L (96-108); Estimated Glomerular Filt Rate > 60; Glucose Fasting 89 mg/dL (60-99); Potassium 4.3 mmol/L (3.3-5.1); Sodium 134 mmol/L (135-145); Total Protein 6.2 g/dL (6.5-8.0)
[2022-09-16 07:02] LABS: Band Neutrophils Percent 8 % (3-5); Lymphocytes Absolute Manual 4.6 X10*3/uL (1.2-4.9); Lymphocytes Percent Manual 25 % (20-40); Metamyelocytes Absolute 0.9 X10*3/uL; Metamyelocytes Percent 5 %; Monocytes Absolute Manual 1.1 X10*3/uL (0.1-1.2); Monocytes Percent Manual 6 % (2-11); Neutrophils Absolute Manual 11.7 X10*3/uL (2.0-8.3); Neutrophils Percent Manual 56 % (45-73); Platelet Estimate NORMAL (NORMAL); Platelet Morphology Comment NORMAL; RBC Morphology NORMAL
[2022-09-16] MEDS: Albuterol/Iprat 2.5/0.5MG 3 ML AMPUL.NEB INHALE (07:52)
[2022-09-16 07:54] VITALS: PULSE 92; RESP 18; O2SAT 98
[2022-09-16] MEDS: Fluticasone/Vilanterol 100/25 BLST.W.DEV 1 PUFF INHALE (07:55)
[2022-09-16 07:56] VITALS: BP 138/85; PULSE 88; RESP 20; TEMP 36.3; O2SAT 98
[2022-09-16] MEDS: lisinopriL 10 MG TABLET PO (08:42)
[2022-09-16] MEDS: Pregabalin 150 MG CAPSULE PO (08:43)
[2022-09-16] MEDS: Loratadine 10 MG TABLET PO (08:43)
[2022-09-16] MEDS: Fluticasone Propionate Nasal 16 GM SPRAY 1 SPRAY NOSTRIL-B (08:43)
[2022-09-16] MEDS: 0.9 % Sodium Chloride Flush 3 ML SYRINGE IVFLUSH (08:44)
[2022-09-16 11:54] VITALS: BP 129/86; PULSE 95; RESP 20; TEMP 36.1; O2SAT 96
--- NOTE | 2022-09-16 11:57 | PM.DS ---
DS: Providers Provider Date of Service: 09/16/22 Date of admission: 09/13/22 22:40 Date of discharge: 09/16/22 Primary care physician: Mirtha Lunsford MD DS: Diagnosis Discharge Diagnosis (1) Gastritis: Status: Acute (2) HO (acute kidney injury): Status: Acute DS: Summary Hospital Course Hospital Course: 52-year-old male with reported history of asthma, comes into the hospital with complaints of abdominal pain.? Patient reports that the pain started on Tuesday, it occurs while he is laying down, he feels significant start comfort all over his stomach that radiates to the chest, feels like burning heat, 10 makes him jump up.? Patient reports that he has had poor sleep as a result, and has not had any recent leave.? This pain is intermittent, occurs worse at rest, reports no chest pain, no palpitations, no diarrhea or constipation, no nausea or vomiting, no urinary symptoms and no lower extremity edema.? He reports feeling chills 2 days prior but no fever.? As a result of this abdominal pain patient has had poor oral intake and has not been eating or drinking appropriately. On arrival to the ED patient hemodynamically stable no significant abnormal vitals Labs are significant for WBC count of 24, evidence of bandemia, creatinine of 1.52 with a baseline less than 1, lactic acid of 2.4, Negative UA.?Abdominal pelvic CT negative for any acute abnormality. when further queried, patient describes long-term steroid use related to asthma exacerbation 1st, then episode of gout, then a lumbar radiculopathy. He states he was not compliant taking medicines with food Hospital Course Admitted to general medical floor and given IV pantoprazole q.12 hours. Over the course next 48 hours he improved significantly was able to tolerate a regular diet without issues. At present time sees believed to be gastritis related to steroid use and he will be discharged with omeprazole b.i.d. until follow-up with PCP. Further plans I ORIANA Gary as per PCP Time Spent with Patient Time attestation: Total time managing care of this patient today ____ minutes. Discharge coordination time: Greater than 30 minutes Quality: Safe Use of Opioids Does Pt have an Active Cancer Diagnosis on the Problem List?: No Quality: Stroke Does the patient have a stroke diagnosis?: No Physical Exam Vital Signs: Vital Signs: Last Vital Signs Temp 97.0 F 09/16/22 11:54 Pulse 95 09/16/22 11:54 Resp 20 09/16/22 11:54 BP 129/86 09/16/22 11:54 Pulse Ox 96 09/16/22 11:54 O2 Del Method Room Air 09/16/22 11:54 BMI result Body Mass Index 34.4 Const: Other: awake alert oriented x3 no acute distress Resp: Other: clear to auscultation bilaterally no rales rhonchi or Cardio: Other: no S4; positive S1-S2; no S3 murmurs rubs or gallops GI: Other: soft nontender nondistended with Extrem: Other: no edema bilaterally DS: Data Data Completed and Pending Labs on day of discharge: Laboratory Results - last 24 hr 09/16/22 09/16/22 06:12 06:12 WBC 18.3 H RBC 4.75 Hgb 14.9 Hct 44.4 MCV 93.5 MCH 31.4 MCHC 33.6 RDW 13.7 Plt Count 204 MPV 11.0 Immature Gran % (Auto) Cancelled Neut % (Auto) Cancelled Lymph % (Auto) Cancelled [place] % (Auto) Cancelled Eos % (Auto) Cancelled Baso % (Auto) Cancelled Lymph # (Auto) Cancelled [place] # (Auto) Cancelled Eos # (Auto) Cancelled Baso # (Auto) Cancelled Abs Immat Gran (auto) Cancelled Absolute Neuts (auto) Cancelled Absolute Nucleated RBC 0.000 Nucleated RBC % (auto) 0.0 Neutrophils % (Manual) 56 Band Neutrophils % 8 H Lymphocytes % (Manual) 25 Monocytes % (Manual) 6 Metamyelocytes % 5 Abs Neuts (Manual) 11.7 H Lymphocytes # (Manual) 4.6 Monocytes # (Manual) 1.1 Metamyelocytes # 0.9 Platelet Estimate NORMAL Plt Morphology Comment NORMAL RBC Morphology NORMAL Sodium 134 L Potassium 4.3 Chloride 102 Carbon Dioxide 21 L Anion Gap 15 BUN 27 H Creatinine 1.02 Estim Creat Clear Calc 90.0 Estimated GFR > 60 Fasting Glucose 89 Calcium 8.8 D Total Bilirubin 0.4 AST 13 ALT 23 Alkaline Phosphatase 49 Total Protein 6.2 L Albumin 3.6 Preliminary micro results at discharge 09/13/22 20:16 Blood Culture - Preliminary Blood - Venous No growth after 48 hours. 09/13/22 20:16 Blood Culture - Preliminary Blood - Venous No growth after 48 hours. Discharge Plan Discharge Anticipated Discharge Date/Time: 09/16/22 11:53 Patient Disposition: Home, Self-Care Discharge Diagnosis: Acute gastritis Referrals: Mirtha Lunsford MD [Primary Care Provider] - 1 Week Discharge Medications: New omeprazole 40 mg capsule,delayed release(DR/EC) 40 mg PO BID Qty: 60 1RF Continued Xolair 150 mg recon soln 225 mg subcut Q2W 28 Days Qty: 3 12RF Rx Instructions: requires multiple injection sites; do not exceed 150 mg per injection site Combivent Respimat 20-100 mcg/actuation mist 2 puff PO BID pregabalin [Lyrica] 150 mg Capsule 150 mg PO BID montelukast 10 mg tablet 1 tab PO BEDTIME albuterol sulfate 1.25 mg/3 mL solution for nebulization 1.25 mg inhalation QID PRN (Reason: shortness of breath or wheezing) Qty: 75 0RF albuterol sulfate 90 mcg/actuation HFA aerosol inhaler 1 inh inhalation QID PRN (Reason: shortness of breath or wheezing) Qty: 6.7 0RF loratadine 10 mg tablet 1 tab PO DAILY acetaminophen [Tylenol] 325 mg tablet 650 mg PO Q6H PRN (Reason: pain) Qty: 30 0RF dexamethasone 4 mg tablet 4 mg PO DAILY lisinopril 10 mg tablet 10 mg PO DAILY fluticasone propionate [Flonase Allergy Relief] 50 mcg/actuation spray,suspension 1 spray intranasal BID 30 Days Qty: 16 6RF Rx Instructions: administer into each nostril fluticasone propion-salmeterol [Advair HFA] 115-21 mcg/actuation HFA aerosol inhaler 2 puff inhalation Q12H 30 Days Qty: 1 6RF Discharge Orders: Discharge Order (Routine); Ordered 09/16/22 Ordered By: Dylan Spear Diet: Advance to usual diet Activity on Discharge: As tolerated Stand Alone Forms: Patient Portal Discharge page Care Plan Goals: resume all medicines as taken prior to hospitalization Health Concerns: take omeprazole 40 mg b.i.d. until seen by PCP. Plan of Treatment: based on response to therapies Assessment: see discharge summary
--- NOTE | 2022-09-16 12:38 | MHC.CM.PN ---
PT MEDICALLY CLEARED FOR D/C HOME SELF-CARE, PT'S CAR IN [facility] AND HE WILL DRIVE HIMSELF HOME
--- NOTE | 2022-09-19 16:51 | P.CDIM_ITS ---
PROVIDER RESPONSE TEXT: To clarify, the appropriate diagnosis supported by the clinical indicators: Other: Related to volume contracture QUERY TEXT: PHYSICIAN'S DOCUMENTATION REQUEST Date of Query: 09/15/2022 07:58 AM EDT Patient Name: Yuri Stokes Admit Date: 09/14/2022 Dear Dylan Spear, A review of the medical record indicates additional documentation may be needed. Please review below and update the documentation accordingly. Clinical Indicators: H&P: 09/14 - Lactic acidosis Secondary to dehydration Continue IVF/trend Clarify which of the following accurately represents the acuity of the Lactic acidosis: Possible options might include: Acute lactic acidosis Other specify if known Other (explain)Clinically unable to determine (explain)Thank you, Ashly Blair, CCS, CDIS Use of terms such as suspected, likely, concern for, or probable (associated with a specific diagnosi s that is being evaluated, monitored, or treated as if it exists) are acceptable and can be coded in the inpatient se tting, when documented at the time of discharge. Please use your independent medical judgment in providing your response. THIS QUERY IS PART OF THE PERMANENT MEDICAL RECORD
== END 2022-09-16 13:42 | disposition home or self-care (01) ==
LOC: HO.ED 18:03 → HO.EDOVER 22:44 → HO.IMC 09-14 11:26
PROVIDERS: Physician Assistant; Admitting Provider Internal Medicine; Emergency Provider Emergency Medicine Emergency Medical Services; PCP Family Medicine; Visit Provider Hospitalist
DX: K29.60 Other gastritis without bleeding (principal); N17.9 Acute kidney failure, unspecified; E86.0 Dehydration; E87.20 Acidosis, unspecified; R07.9 Chest pain, unspecified; R10.13 Epigastric pain; J45.909 Unspecified asthma, uncomplicated; R11.0 Nausea; I10 Essential (primary) hypertension; R06.02 Shortness of breath; D72.829 Elevated white blood cell count, unspecified; Z79.899 Other long term (current) drug therapy
CPT/HCPCS: 36415; 71046; 74176; 80048; 80053; 81003; 83605; 83690; 84484; 85007; 85025; 85027; 85610; 85730; 87040; 93005; 94640; 96361; 96365; 96375; 96376; 99222; 99285; J0696; J2930; J8540

== ENCOUNTER → 2022-09-13 12:21 | Outpatient (BNV) | payer MEDICAID, SELFPAY | PROVIDERS: Visit Provider Internal Medicine Cardiovascular Disease | DX: R00.0 Tachycardia, unspecified (principal) | CPT/HCPCS: 93010 ==

== ENCOUNTER → 2022-09-13 22:40 | Outpatient (BNV) | payer MEDICAID, SELFPAY | PROVIDERS: Admitting Provider Internal Medicine; Emergency Provider Emergency Medicine Emergency Medical Services; Visit Provider Internal Medicine | DX: K29.70 Gastritis, unspecified, without bleeding (principal); N17.9 Acute kidney failure, unspecified | CPT/HCPCS: 99222; 99233; 99239 ==

== ENCOUNTER 2022-09-20 09:02 | Outpatient (REF) | payer MEDICAID, SELFPAY | END 2022-09-20 09:03 | disposition home or self-care (01) | LOC: HO.MDS 09:02 | PROVIDERS: Visit Provider Internal Medicine Pulmonary Disease | DX: J45.50 Severe persistent asthma, uncomplicated (principal) | CPT/HCPCS: 96372; J2357 ==

== ENCOUNTER 2022-09-21 10:39 | Emergency (ER) | payer MEDICAID, SELFPAY ==
[2022-09-21 10:53] VITALS: BP 128/94; PULSE 107; RESP 17; TEMP 36.1; O2SAT 95; BMI 34.9
--- NOTE | 2022-09-21 11:03 | PC.NURSE ---
PT HAS ONLY THE R KIDNEY
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
== END 2022-09-21 13:03 | disposition home or self-care (01) ==
PROVIDERS: Emergency Provider Emergency Medicine; PCP Family Medicine
DX: S39.012A Strain of muscle, fascia and tendon of lower back, initial encounter (principal); X58.XXXA Exposure to other specified factors, initial encounter; M51.36 Other intervertebral disc degeneration, lumbar region; I10 Essential (primary) hypertension; F17.210 Nicotine dependence, cigarettes, uncomplicated; Y93.9 Activity, unspecified; Y92.9 Unspecified place or not applicable; Y99.9 Unspecified external cause status
CPT/HCPCS: 99282; 99283

== ENCOUNTER 2022-09-23 11:39 | Outpatient (REF) | payer MEDICAID, SELFPAY ==
[2022-09-23 18:12] LABS: CT PCR NOT DETECTED (Not Detect.); NG PCR NOT DETECTED (Not Detect.)
[2022-09-24 05:13] LABS: Syphilis Screen Nonreactive (Nonreactive)
== END 2022-09-23 11:40 | disposition home or self-care (01) ==
LOC: HO.HHCL 11:39
PROVIDERS: Visit Provider Family Medicine
DX: Z11.3 Encounter for screening for infections with a predominantly sexual mode of transmission (principal); N48.9 Disorder of penis, unspecified
CPT/HCPCS: 0353U; 36415; 86780; 87255

== ENCOUNTER 2022-09-29 10:54 | Outpatient (REF) | payer MEDICAID, SELFPAY ==
[2022-09-29 15:05] LABS: Syphilis Screen Nonreactive (Nonreactive)
== END 2022-09-29 10:55 | disposition home or self-care (01) ==
LOC: HO.HHCL 10:54
PROVIDERS: Visit Provider Family Medicine
DX: N48.9 Disorder of penis, unspecified (principal)
CPT/HCPCS: 36415; 86780; 87255

== ENCOUNTER 2022-09-29 11:30 | Outpatient (REF) | payer MEDICAID, SELFPAY | END 2022-09-29 11:31 | disposition home or self-care (01) | LOC: HO.LNP 11:30 | PROVIDERS: Visit Provider Family Medicine | DX: N48.9 Disorder of penis, unspecified (principal) | CPT/HCPCS: 87255 ==

== ENCOUNTER 2022-09-29 12:30 | Emergency (ER) | payer MEDICAID, SELFPAY ==
--- NOTE | ~2022-09-29 | XR_ITS ---
EXAMINATION: XR CHEST CLINICAL INFORMATION: Shortness of breath. COMPARISON: 09/13/2022 chest radiographs. TECHNIQUE: 2 views of the chest were obtained. FINDINGS: No significant abnormality is noted involving the heart, lungs, mediastinum, bony thorax or soft tissues. Anterior cervical spine fusion plate in place without abnormality. XR/XR chest 2V IMPRESSION: No acute cardiopulmonary process.
[2022-09-29 12:37] VITALS: BP 145/92; PULSE 112; RESP 18; TEMP 36.9; O2SAT 97; BMI 34.7
--- NOTE | 2022-09-29 12:37 | ED.GENADULT ---
HPI - General Adult General Chief complaint: General Medical Stated complaint: weakness, fatigue Time Seen by Provider: 09/29/22 14:37 Source: patient and RN notes reviewed Mode of arrival: ambulatory Limitations: no limitations History of Present Illness HPI narrative: This is a [id number], with a hx of asthma and recent admission for HO, presenting to the emergency department with complaints of fatigue since this morning. Pt states that is feeling much more tired than he usually does today. Denies headache, fevers, chills, abdominal pain, nausea, vomiting or diarrhea. He reports that he has a genitalial rash, he is sexually active with his . He states that he has been coughing today and has felt wheezy - has been using albuterol inhaler with some relief. No fevers, chills, abdominal pain, chest pain, palpitations, nausea, vomiting, diarrhea, constipation, urinary symptoms or penile discharge. No other complaints or concerns at this time. MD complaint: Fatigue Onset (ago): day(s) Radiation: non-radiation Relieving factors: none Exacerbating factors: none Associated symptoms: denies other symptoms Treatments prior to arrival: none Related Data Home Medications Medication Instructions Recorded Confirmed pregabalin 150 mg capsule (Lyrica) 150 mg PO BID 11/26/19 09/13/22 montelukast 10 mg tablet 1 tab PO BEDTIME 09/14/20 09/13/22 ipratropium 20 mcg-albuterol 100 2 puff PO BID 09/22/20 09/13/22 mcg/actuation mist for inhalation (Combivent Respimat) loratadine 10 mg tablet 1 tab PO DAILY 08/31/21 09/13/22 lisinopril 10 mg tablet 10 mg PO DAILY 05/11/22 09/13/22 dexamethasone 4 mg tablet 4 mg PO DAILY 09/13/22 09/13/22 Previous Rx's Medication Instructions Recorded omalizumab 150 mg subcutaneous 225 mg subcut Q2W 28 days #3 ea 12/11/20 solution (Xolair) albuterol sulfate 90 mcg/actuation 1 inh inhalation QID PRN shortness 05/20/21 aerosol inhaler of breath or wheezing #6.7 grams albuterol sulfate 1.25 mg/3 mL 1.25 mg (3 mL) inhalation QID PRN 11/21/21 solution for nebulization shortness of breath or wheezing #75 mL acetaminophen 325 mg tablet 650 mg PO Q6H PRN pain #30 tabs 08/19/22 (Tylenol) fluticasone propionate 115 2 puff inhalation Q12H 30 days #1 09/07/22 mcg-salmeterol 21 mcg/actuation ea HFA inhaler (Advair HFA) omeprazole 40 mg capsule,delayed 40 mg PO BID #60 caps 09/16/22 release oxycodone 5 mg tablet 5 mg PO TID PRN pain #14 tabs 09/21/22 fluticasone propionate 50 1 spray intranasal BID 30 days #16 09/23/22 mcg/actuation nasal grams spray,suspension (Flonase Allergy Relief) albuterol sulfate 2.5 mg/0.5 mL 2.5 mg (0.5 mL) inhalation Q20M 09/29/22 solution for nebulization #30 ea albuterol sulfate 90 mcg/actuation 2 puff inhalation QID PRN 09/29/22 aerosol inhaler shortness of breath or wheezing #6.7 grams mupirocin 2 % topical ointment 1 appl topical TID 7 days #15 grams 09/29/22 prednisone 20 mg tablet 40 mg PO DAILY 5 days #10 tabs 09/29/22 Allergies Allergy/AdvReac Type Severity Reaction Status Date / Time Iodinated Contrast Media Allergy Severe Unknown Verified 09/13/22 12:35 ibuprofen [From MOTRIN] Allergy Unknown KIDNEY Verified 09/13/22 12:35 ISSUES mushroom AdvReac Mild VOMITING Verified 09/13/22 12:35 amlodipine AdvReac Unknown Swelling Verified 09/13/22 12:35 Review of Systems Review of Systems: Yes all other systems are reviewed and are negative Constitutional: Constitutional: Reports as per [facility] Past Medical History Attestation statement: The following information was validated with the patient. 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 Arthritis Asthma Asthma with exacerbation Hypertension Surgical History H/O kidney removal H/O neck surgery History of unilateral nephrectomy Previous back surgery Family History Family History Mother Hypertension Asthma Father Medical history unknown Social History Social History Household Members: None Housing: Apartment Do you presently have visiting nurse or other home services: No Alcohol intake: current Alcohol intake frequency: holidays/special occasions only Alcohol type: beer Patient Tobacco Use Status: Current everyday Tobacco user Tobacco use type: Cigarette Cigarettes Per Day: 5 Years Smoked: 20 years e-Cigarette/Vaping Use: Former Use Second Hand Smoke Exposure: No Advance Directives: No Advance Directives Information Provided: No service: No Current occupational status: employed Physical Exam ED Vital Signs: Vital Signs - 24 hr 09/29/22 12:37 09/29/22 16:29 Temperature 98.4 F Pulse Rate 112 H 97 Respiratory Rate 18 20 Blood Pressure 145/92 H 125/75 Pulse Oximetry 97 98 Oxygen Delivery Method Room Air Room Air BMI result Body Mass Index 34.7 Const General: cooperative, comfortable and no acute distress Orientation/consciousness: patient oriented x3 Limitations: no limitations HENMT Head: Yes normal to inspection, Yes normocephalic and Yes atraumatic Ears: hearing grossly normal bilaterally General nose exam: Normal external nose present Face and sinus: Yes normal facial exam Mouth: Normal oral and palatal mucosa present, oropharynx normal and moist mucous membranes Throat: Yes posterior oropharynx normal Eyes General: appearance normal, both eyes and all related structures Eyelids: Yes eyelids normal Conjunctivae: conjunctivae normal Sclerae: sclerae normal Pupils: Equal, round and reactive pupils present EOM: EOMs intact bilaterally Neck Neck: Yes normal visual inspection, Yes full ROM and Yes no lymphadenopathy Lymphatic: no lymphadenopathy noted Chest Chest palpation & inspection: normal inspection of the chest Resp Other: Lungs with inspiratory and expiratory wheezes noted throughout all lung yu. Effort & Inspection: normal respiratory effort and able to speak in complete sentences Cardio Rate: regular rate Rhythm: regular rhythm Heart sounds: S1 normal heart sound present and S2 normal heart sound present GI Other: examination performed with RN present during entire encounter. 1mm pustule noted to shaft of uncircumsized penis with no surrounding erythema, edema or warmth. No drainage. able to retract foreskin without difficulty. Inspection: Yes normal to inspection Skin General skin exam: no rashes or lesions noted Trauma: no lacerations or abrasions Wounds: no wounds Neuro General: patient oriented x3 and moves all extremities Cranial nerves: Yes Equal, round and reactive pupils present Extrem General: Yes normal to inspection Right upper extremity: normal to inspection Left upper extremity: normal to inspection Right lower extremity: normal to inspection Left lower extremity: normal to inspection Course Course Course Narrative: RME - 52 yo male with history of asthma, recent admission for HO (w/ leukocytosis and bandemia without source of infection), hx pyelonephritis who presents to the ER for evaluation of acute onset of weakness and fatigue and not feeling well that started yesterday. He also reports a genital rash. He is concerned about STI, AIDS, or some other disease. Sexually active with only. Anxious about his abnormal labs in the past. HR 110 in triage. Plan: lab workup, UA Reevaluation(s) Reevaluation #1: Pt's symptoms signifiantly improved after receiving updraft. Workup all reassuring today. Sxs consistent with asthma exacerbation and folliculitis. D/C with mupriocin, prednisone and albuterol. Discussed return precautions. PT understands and agrees with plan. Stable for d/c, Medications Administered Discontinued Medications Generic Name Dose Route Start Last Admin Trade Name Freq PRN Reason Stop Dose Admin Albuterol Sulfate 5 mg/ 0 mg 09/29/22 15:05 09/29/22 15:45 Albuterol/Ipratropium 3 ml INHALE 09/29/22 15:06 1 each ONCE ONE Administration Prednisone 40 mg 09/29/22 15:05 09/29/22 15:15 Prednisone 20 Mg Tablet PO 09/29/22 15:06 40 mg ONCE ONE Administration Medical Decision Making Medical Decision Making [facility] Narrative: 52 year old male presenting to the emergency department for evaluation of tiredness which started today. During examination, vital signs within normal limits. Lungs with inspiratory and expiratory wheezes heard throughout all lung yu. Patient also expressing concerns about bump on penile shaft. Examination consistent with folliculitis. Patient medicated in department with Prednisone and duo nebulizer. Lung sounds greatly improved, wheezes no longer heard. Symptoms consistent with asthma exacerbation, will discharge and of course of Prednisone. Patient given return precautions. Patient understands the cruise with plan. He is feeling much better, patient stable for discharge. Differential Diagnosis Differential Diagnoses: The differential diagnosis associated with the presentation includes asthma exacerbation, pneumonia, UTI, herpes, folliculitis Lab Data [facility] Lab Attestation statement: I reviewed the patient's lab results. 09/29/22 13:32 09/29/22 13:32 Labs: Lab Results 09/29/22 09/29/22 09/29/22 Range/Units 13:32 13:32 13:33 WBC 7.7 (4.8-10.8) X10*3/uL RBC 4.12 L (4.60-5.80) X10*6/uL Hgb 12.9 L (14.0-18.0) g/dl Hct 39.4 L (42.0-52.0) % MCV 95.6 (80.0-98.0) fL MCH 31.3 (27.0-33.0) pg MCHC 32.7 (31.0-36.0) g/dl RDW 14.6 (11.0-16.0) % Plt Count 250 (160-400) X10*3/uL MPV 10.0 (9.4-12.4) fL Immature Gran % (Auto) 3.0 H (0.0-0.4) % Neut % (Auto) 67.5 (45-73) % Lymph % (Auto) 18.0 L (20-40) % [place] % (Auto) 9.3 (2-11) % Eos % (Auto) 1.7 (0-4) % Baso % (Auto) 0.5 (0-2) % Lymph # (Auto) 1.4 (1.2-4.9) X10*3/uL [place] # (Auto) 0.7 (0.1-1.2) X10*3/uL Eos # (Auto) 0.1 (0.0-0.4) X10*3/uL Baso # (Auto) 0.0 (0.0-0.2) X10*3/uL Abs Immat Gran (auto) 0.23 H (0.00-0.03) X10*3/uL Absolute Neuts (auto) 5.2 (2.0-8.3) x10*3/uL Absolute Nucleated RBC 0.000 (0.0-0.012) X10*3/uL Nucleated RBC % (auto) 0.0 (0.0-0.2) /100WBC Sodium 142 (135-145) mmol/L Potassium 4.0 (3.3-5.1) mmol/L Chloride 105 (96-108) mmol/L Carbon Dioxide 27 (22-29) mmol/L Anion Gap 14 (12-20) BUN 10 (9-16) mg/dL Creatinine 1.07 (0.5-1.4) mg/dL Estim Creat Clear Calc 86.2 Estimated GFR > 60 Random Glucose 107 (60-115) mg/dL Calcium 9.8 D (8.4-10.2) mg/dL Magnesium 2.3 (1.6-2.6) mg/dL Total Bilirubin 0.5 (0.0-1.0) mg/dL Direct Bilirubin 0.2 (0.0-0.5) mg/dL AST 22 (5-37) U/L ALT 35 (0-40) U/L Alkaline Phosphatase 90 (39-117) U/L Total Protein 7.3 (6.5-8.0) g/dL Albumin 4.1 (3.5-5.0) g/dL Urine Color Yellow Urine Appearance Clear Urine pH 7.5 (5.0-9.0) Ur Specific [place] 1.010 (1.005-1.025) Urine Protein Negative (Neg-Trace) mg/dL Urine Glucose (UA) Negative (Negative) mg/dL Urine Ketones Negative (Negative) mg/dL Urine Blood Negative (Negative) Urine Nitrite Negative (Negative) Ur Leukocyte Esterase Negative (Negative) COVID-19 ([facility]) (Negative) COVID-19 Clin Com Influenza Type A ([facility]O) (Negative) Influenza Type B (CONRADO) (Negative) Influenza A & B Note 09/29/22 09/29/22 Range/Units 15:10 15:10 WBC (4.8-10.8) X10*3/uL RBC (4.60-5.80) X10*6/uL Hgb (14.0-18.0) g/dl Hct (42.0-52.0) % MCV (80.0-98.0) fL MCH (27.0-33.0) pg MCHC (31.0-36.0) g/dl RDW (11.0-16.0) % Plt Count (160-400) X10*3/uL MPV (9.4-12.4) fL Immature Gran % (Auto) (0.0-0.4) % Neut % (Auto) (45-73) % Lymph % (Auto) (20-40) % [place] % (Auto) (2-11) % Eos % (Auto) (0-4) % Baso % (Auto) (0-2) % Lymph # (Auto) (1.2-4.9) X10*3/uL [place] # (Auto) (0.1-1.2) X10*3/uL Eos # (Auto) (0.0-0.4) X10*3/uL Baso # (Auto) (0.0-0.2) X10*3/uL Abs Immat Gran (auto) (0.00-0.03) X10*3/uL Absolute Neuts (auto) (2.0-8.3) x10*3/uL Absolute Nucleated RBC (0.0-0.012) X10*3/uL Nucleated RBC % (auto) (0.0-0.2) /100WBC Sodium (135-145) mmol/L Potassium (3.3-5.1) mmol/L Chloride (96-108) mmol/L Carbon Dioxide (22-29) mmol/L Anion Gap (12-20) BUN (9-16) mg/dL Creatinine (0.5-1.4) mg/dL Estim Creat Clear Calc Estimated GFR Random Glucose (60-115) mg/dL Calcium (8.4-10.2) mg/dL Magnesium (1.6-2.6) mg/dL Total Bilirubin (0.0-1.0) mg/dL Direct Bilirubin (0.0-0.5) mg/dL AST (5-37) U/L ALT (0-40) U/L Alkaline Phosphatase (39-117) U/L Total Protein (6.5-8.0) g/dL Albumin (3.5-5.0) g/dL Urine Color Urine Appearance Urine pH (5.0-9.0) Ur Specific [place] (1.005-1.025) Urine Protein (Neg-Trace) mg/dL Urine Glucose (UA) (Negative) mg/dL Urine Ketones (Negative) mg/dL Urine Blood (Negative) Urine Nitrite (Negative) Ur Leukocyte Esterase (Negative) COVID-19 ([facility]) Negative (Negative) COVID-19 Clin Com See Note Influenza Type A (CONRADO) Negative (Negative) Influenza Type B (CON[facility]O) Negative (Negative) Influenza A & B Note See Note Radiology Impression Discussion of test interpretation with radiology: I have reviewed the radiologist's reading. External Record Review External record reviewed: Inpatient record, Office record, Outpatient record, Prior outpatient labs, Prior outpatient radiology, Primary care record and Outside ED record Discharge Plan Discharge Clinical Impression: Asthma exacerbation, Malaise, Folliculitis Patient Disposition: Home, Self-Care Instructions: Asthma (ED), Folliculitis (ED) Additional Instructions: You tested negative for COVID and flu today. Your blood work was reassuring today. Your urine did not show any signs of infection. You have a skin infection on your penile shaft, please use antibiotic ointment for the next 7 days. Keep a close eye on region, watch for any increasing redness, swelling, or pain. Your chest x-ray did not show any pneumonia. However your lungs were wheezy which improved after receiving updraft. Please take prescribed prednisone as directed. Complete the entire course. Use albuterol inhaler and nebulizer as directed. If any new or worsening symptoms occur including but not limited to worsening shortness of breath, chest pain, please return for re-evaluation. Prescriptions: New prednisone 20 mg tablet 40 mg PO DAILY 5 Days Qty: 10 0RF albuterol sulfate 2.5 mg/0.5 mL solution for nebulization 2.5 mg inhalation Q20M Qty: 30 0RF Rx Instructions: for up to 3 doses albuterol sulfate 90 mcg/actuation HFA aerosol inhaler 2 puff inhalation QID PRN (Reason: shortness of breath or wheezing) Qty: 6.7 0RF mupirocin 2 % ointment 1 appl topical TID 7 Days Qty: 15 0RF No Action Xolair 150 mg recon soln 225 mg subcut Q2W 28 Days Qty: 3 12RF Rx Instructions: requires multiple injection sites; do not exceed 150 mg per injection site fluticasone propionate [Flonase Allergy Relief] 50 mcg/actuation spray,suspension 1 spray intranasal BID 30 Days Qty: 16 6RF Rx Instructions: administer into each nostril Combivent Respimat 20-100 mcg/actuation mist 2 puff PO BID pregabalin [Lyrica] 150 mg Capsule 150 mg PO BID montelukast 10 mg tablet 1 tab PO BEDTIME albuterol sulfate 1.25 mg/3 mL solution for nebulization 1.25 mg inhalation QID PRN (Reason: shortness of breath or wheezing) Qty: 75 0RF albuterol sulfate 90 mcg/actuation HFA aerosol inhaler 1 inh inhalation QID PRN (Reason: shortness of breath or wheezing) Qty: 6.7 0RF loratadine 10 mg tablet 1 tab PO DAILY acetaminophen [Tylenol] 325 mg tablet 650 mg PO Q6H PRN (Reason: pain) Qty: 30 0RF oxycodone 5 mg tablet 5 mg PO TID PRN (Reason: pain) Qty: 14 0RF Rx Instructions: Partial Fill upon patient request. dexamethasone 4 mg tablet 4 mg PO DAILY omeprazole 40 mg capsule,delayed release(DR/EC) 40 mg PO BID Qty: 60 1RF lisinopril 10 mg tablet 10 mg PO DAILY fluticasone propion-salmeterol [Advair HFA] 115-21 mcg/actuation HFA aerosol inhaler 2 puff inhalation Q12H 30 Days Qty: 1 6RF Interventions: ED Discharge Assessment Last Done: 09/29/22 17:36 Discharge Date/Time: 09/29/22 17:36
--- NOTE | 2022-09-29 12:43 | ECG_ITS ---
Test Reason : weakness Blood Pressure : / mmHG Vent. Rate : 106 BPM Atrial Rate : 106 BPM P-R Int : 130 ms QRS Dur : 086 ms QT Int : 328 ms P-R-T Axes : 000 173 161 degrees QTc Int : 435 ms Limb leads reversal Sinus tachycardia Right axis deviation Inferior infarct , age undetermined Abnormal ECG When compared with ECG of 13-SEP-2022 12:31, QRS axis Shifted right Referred By: Sola Ortiz Electronically Signed By:Donald Whitehead
[2022-09-29 13:37] LABS: MANUAL DIFF FLAG NO
[2022-09-29 13:41] LABS: Basophils Percent Auto 0.5 % (0-2); Eosinophils Absolute Auto 0.1 X10*3/uL (0.0-0.4); Eosinophils Percent Auto 1.7 % (0-4); Hematocrit 39.4 % (42.0-52.0); Hemoglobin 12.9 g/dl (14.0-18.0); Imm Gran Abs Auto 0.23 X10*3/uL (0.00-0.03); Lymphocytes Absolute Auto 1.4 X10*3/uL (1.2-4.9); Mean Corpuscular HGB Conc 32.7 g/dl (31.0-36.0); Mean Corpuscular Hemoglobin 31.3 pg (27.0-33.0); Mean Corpuscular Volume 95.6 fL (80.0-98.0); Monocytes Absolute Auto 0.7 X10*3/uL (0.1-1.2); Monocytes Percent Auto 9.3 % (2-11); Neutrophils Absolute Auto 5.2 x10*3/uL (2.0-8.3); Neutrophils Percent Auto 67.5 % (45-73); Platelet Count 250 X10*3/uL (160-400); Red Blood Count 4.12 X10*6/uL (4.60-5.80); Red Cell Distribution Width 14.6 % (11.0-16.0); White Blood Count 7.7 X10*3/uL (4.8-10.8)
[2022-09-29 13:45] LABS: Appearance Urine Clear; Color Urine Yellow; Glucose Urine UA Negative (Negative); Leukocyte Esterase Urine Negative (Negative); Nitrite Urine Negative (Negative); PH 7.5 (5.0-9.0); Urine Blood Negative (Negative); Urine Ketones Negative (Negative); Urine Protein Negative (Neg-Trace)
[2022-09-29 14:01] LABS: Alanine Aminotransferase 35 U/L (0-40); Albumin Level 4.1 g/dL (3.5-5.0); Alkaline Phosphatase 90 U/L (39-117); Anion Gap 14 (12-20); Aspartate Amino Transferase 22 U/L (5-37); Bilirubin Direct 0.2 mg/dL (0.0-0.5); Bilirubin Total 0.5 mg/dL (0.0-1.0); Blood Urea Nitrogen 10 mg/dL (9-16); Calcium 9.8 mg/dL (8.4-10.2); Carbon Dioxide 27 mmol/L (22-29); Chloride 105 mmol/L (96-108); Creatinine Clr Calc Pharmacy 86.2; Estimated Glomerular Filt Rate > 60; Glucose Random 107 mg/dL (60-115); Magnesium 2.3 mg/dL (1.6-2.6); Sodium 142 mmol/L (135-145); Total Protein 7.3 g/dL (6.5-8.0)
[2022-09-29] MEDS: predniSONE 20 MG TABLET 40 MG PO (15:15)
[2022-09-29 15:45] LABS: COVID-19 Test Negative (Negative); IDNOW Serial# 9DB6401D
[2022-09-29] MEDS: Albuterol Sulfate 5 MG, Albuterol/Iprat 2.5/0.5MG 3 ML 3 ML INHALE (15:45)
[2022-09-29 15:46] LABS: IDNOW Serial# BCCEAD1C; Influenza A Negative (Negative); Influenza B2 Negative (Negative)
[2022-09-29 16:29] VITALS: BP 125/75; PULSE 97; RESP 20; O2SAT 98
== END 2022-09-29 17:36 | disposition home or self-care (01) ==
PROVIDERS: Physician Assistant; Physician Assistant Medical; Emergency Provider Student in an Organized Health Care Education/Training Program; PCP Family Medicine
DX: J45.901 Unspecified asthma with (acute) exacerbation (principal); L73.9 Follicular disorder, unspecified; R06.02 Shortness of breath; R00.0 Tachycardia, unspecified; Z20.822 Contact with and (suspected) exposure to COVID-19; Z20.828 Contact with and (suspected) exposure to other viral communicable diseases; Z79.899 Other long term (current) drug therapy
CPT/HCPCS: 36415; 71046; 80048; 80076; 81003; 83735; 85025; 87502; 87635; 93005; 99283; 99284

== ENCOUNTER → 2022-09-29 12:43 | Outpatient (BNV) | payer MEDICAID, SELFPAY | PROVIDERS: Emergency Provider Student in an Organized Health Care Education/Training Program; PCP Family Medicine; Visit Provider Internal Medicine Cardiovascular Disease | DX: R00.0 Tachycardia, unspecified (principal); R94.31 Abnormal electrocardiogram [ECG] [EKG] | CPT/HCPCS: 93010 ==

== ENCOUNTER 2022-10-04 07:11 | Outpatient (REF) | payer MEDICAID, SELFPAY | END 2022-10-04 07:12 | disposition home or self-care (01) | LOC: HO.MDS 07:11 | PROVIDERS: Visit Provider Internal Medicine Pulmonary Disease | DX: J45.50 Severe persistent asthma, uncomplicated (principal) | CPT/HCPCS: 96372; J2357 ==

== ENCOUNTER 2022-10-18 07:51 | Outpatient (REF) | payer MEDICAID, SELFPAY | END 2022-10-18 07:52 | disposition home or self-care (01) | LOC: HO.MDS 07:51 | PROVIDERS: Visit Provider Internal Medicine Pulmonary Disease | DX: J45.50 Severe persistent asthma, uncomplicated (principal) | CPT/HCPCS: 96372; J2357 ==

== ENCOUNTER 2022-11-01 07:49 | Outpatient (REF) | payer MEDICAID, SELFPAY | END 2022-11-01 07:50 | disposition home or self-care (01) | LOC: HO.MDS 07:49 | PROVIDERS: Visit Provider Internal Medicine Pulmonary Disease | DX: J45.50 Severe persistent asthma, uncomplicated (principal) | CPT/HCPCS: 96372; J2357 ==

== ENCOUNTER 2022-11-09 08:18 | Emergency (ER) | payer MEDICAID, SELFPAY ==
--- NOTE | ~2022-11-09 | US_ITS ---
EXAMINATION: LEFT LOWER EXTREMITY DEEP VENOUS ULTRASOUND CLINICAL INFORMATION: SIDE lower extremity complaint. COMPARISON: None. TECHNIQUE: Duplex Doppler imaging with compression maneuvers were performed of the left lower extremity deep venous system. FINDINGS: The visualized common femoral, femoral and popliteal veins demonstrate normal compressibility and color flow without evidence of venous thrombosis. Visualized portions of the calf veins demonstrate normal color fill-in suggesting patency. There is no evidence of a Cowan's cyst. Localized superficial imaging in the region of indicated pain (third toe) demonstrates no gross abnormality. US/US venous duplex LE LT IMPRESSION: No evidence of deep venous thrombosis involving the left lower extremity.
--- NOTE | ~2022-11-09 | XR_ITS ---
EXAMINATION: XR FOOT, LEFT CLINICAL INFORMATION: Foot pain and redness COMPARISON: None available. TECHNIQUE: AP, lateral, and oblique views of the left foot. FINDINGS: Mild calcaneal spurring, otherwise bones are unremarkable. No fracture, dislocation or erosive bony changes. Alignment is anatomic. Joint spaces are maintained. No focal soft tissue swelling. XR/XR foot LT min 3V IMPRESSION: No acute bony pathology.
[2022-11-09 08:21] VITALS: BP 134/90; PULSE 107; RESP 18; TEMP 36.7; O2SAT 97; BMI 35.0
--- NOTE | 2022-11-09 09:19 | ED_ITS ---
HPI - Extremity Problem General Chief complaint: Extremity Problem Stated complaint: L Leg Pain Time Seen by Provider: 11/09/22 09:10 Source: patient, RN notes reviewed and old records reviewed Mode of arrival: ambulatory History of Present Illness HPI Narrative: 52-year-old male with a past medical history of gastritis, gout, arthritis, asthma, presenting to the ED sent down from physical therapy for left foot pain/ inflamed vein. patient reports foot pain started yesterday, atraumatic, noted to be warm and increasingly painful today. does report history of gout however this presenting differently. Denies injury/fall or trauma, numbness/ tingling, weakness, fever/ chills, calf pain, recent travel, taking anticoagulation MD Complaint: extremity pain Related Data Home Medications Medication Instructions Recorded Confirmed pregabalin 150 mg capsule (Lyrica) 150 mg PO BID 11/26/19 09/13/22 montelukast 10 mg tablet 1 tab PO BEDTIME 09/14/20 09/13/22 ipratropium 20 mcg-albuterol 100 2 puff PO BID 09/22/20 09/13/22 mcg/actuation mist for inhalation (Combivent Respimat) loratadine 10 mg tablet 1 tab PO DAILY 08/31/21 09/13/22 lisinopril 10 mg tablet 10 mg PO DAILY 05/11/22 09/13/22 dexamethasone 4 mg tablet 4 mg PO DAILY 09/13/22 09/13/22 Previous Rx's Medication Instructions Recorded omalizumab 150 mg subcutaneous 225 mg subcut Q2W 28 days #3 ea 12/11/20 solution (Xolair) albuterol sulfate 90 mcg/actuation 1 inh inhalation QID PRN shortness 05/20/21 aerosol inhaler of breath or wheezing #6.7 grams albuterol sulfate 1.25 mg/3 mL 1.25 mg (3 mL) inhalation QID PRN 11/21/21 solution for nebulization shortness of breath or wheezing #75 mL acetaminophen 325 mg tablet 650 mg (2 x 325 mg) PO Q6H PRN 08/19/22 (Tylenol) pain #30 tabs fluticasone propionate 115 2 puff inhalation Q12H 30 days #1 09/07/22 mcg-salmeterol 21 mcg/actuation ea HFA inhaler (Advair HFA) omeprazole 40 mg capsule,delayed 40 mg PO BID #60 caps 09/16/22 release oxycodone 5 mg tablet 5 mg PO TID PRN pain #14 tabs 09/21/22 fluticasone propionate 50 1 spray intranasal BID 30 days #16 09/23/22 mcg/actuation nasal grams spray,suspension (Flonase Allergy Relief) albuterol sulfate 2.5 mg/0.5 mL 2.5 mg (0.5 mL) inhalation Q20M 09/29/22 solution for nebulization #30 ea albuterol sulfate 90 mcg/actuation 2 puff inhalation QID PRN 09/29/22 aerosol inhaler shortness of breath or wheezing #6.7 grams mupirocin 2 % topical ointment 1 appl topical TID 7 days #15 grams 09/29/22 prednisone 20 mg tablet 40 mg (2 x 20 mg) PO DAILY 5 days 09/29/22 #10 tabs cephalexin 500 mg capsule 500 mg PO QID 7 days #28 caps 11/09/22 prednisone 10 mg tablets in a dose See Taper PO DAILY #48 ea 11/11/22 pack tramadol 50 mg tablet 50 mg PO BID PRN severe pain 11/11/22 (scale score 7-10) #5 tabs Allergies Allergy/AdvReac Type Severity Reaction Status Date / Time Iodinated Contrast Media Allergy Severe Unknown Verified 11/11/22 09:50 ibuprofen [From MOTRIN] Allergy Unknown KIDNEY Verified 11/11/22 09:50 ISSUES mushroom AdvReac Mild VOMITING Verified 11/11/22 09:50 amlodipine AdvReac Unknown Swelling Verified 11/11/22 09:50 Review of Systems Review of Systems: Constitutional: No Fever, No Chills ENT/Mouth: No Ear Pain, No Nasal Congestion, No sore throat, No Rhinorrhea, No Swallowing Difficulty Cardiovascular: No Chest Pain, No SOB Respiratory: No Cough, No Sputum Gastrointestinal: No Nausea, No Vomiting, No Abdominal pain Genitourinary: No Dysuria, No Urinary Frequency, No Hematuria Musculoskeletal: +oint pain, No Myalgias, + Joint Swelling Skin: + Skin Lesions, No rash Neuro: No Weakness, No Numbness, No Paresthesias Yes all other systems are reviewed and are negative Constitutional: Constitutional: Reports as per [facility] Past Medical History Attestation statement: The following information was validated with the patient. Source: old records reviewed Medical History Asthma with exacerbation Hypertension 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 Arthritis Asthma Surgical History History of unilateral nephrectomy H/O neck surgery Previous back surgery H/O kidney removal Family History Family History Mother Hypertension Asthma Father Medical history unknown Social History Social History Household Members: None Housing: Apartment Do you presently have visiting nurse or other home services: No Alcohol intake: current Alcohol intake frequency: a few times a week Alcohol type: beer Patient Tobacco Use Status: Current everyday Tobacco user Tobacco use type: Cigarette Cigarettes Per Day: 5 Years Smoked: 20 years e-Cigarette/Vaping Use: Former Use Second Hand Smoke Exposure: No Advance Directives: No service: No Current occupational status: employed Physical Exam Vital Signs: Vital Signs: Last Vital Signs Temp 98.1 F 11/09/22 08:21 Pulse 87 11/09/22 09:24 Resp 18 11/09/22 09:24 BP 130/90 H 11/09/22 09:24 Pulse Ox 98 11/09/22 09:24 O2 Del Method Room Air 11/09/22 09:24 BMI result Body Mass Index 35.0 Const: General: cooperative, healthy appearing and no acute distress Orientation/consciousness: patient oriented x3 Limitations: no limitations HEENT: Head: Yes normal to inspection and Yes atraumatic Ears: hearing grossly normal bilaterally General nose exam: Normal external nose present Face and sinus: Yes normal facial exam Eyes: General: appearance normal, both eyes and all related structures EOM: EOMs intact bilaterally Neck: Neck: Yes normal visual inspection and Yes no meningeal signs Resp: Effort & Inspection: normal respiratory effort and no respiratory distress Cardio: Rate: regular rate Heart sounds: S1 normal heart sound present and S2 normal heart sound present Peripheral pulses: dorsalis pedis present Skin: Wounds: no wounds Neuro: General: patient oriented x3, tone normal and no meningeal signs Cranial nerves: Yes CN's II-XII intact bilaterally Gait exam (Neuro): Normal gait present Extrem: Other: left foot with small area of erythema to distal 3rd metatarsal, warm to touch, tender to palpation. Mild superficial thrombophlebitis noted. No appreciable swelling/ pitting edema, no crepitus, no ecchymosis. Neurovascularly intact. No lymphangitis General: Yes no calf tenderness Course Course Course Narrative: 1018--XR foot LT min 3V IMPRESSION: No acute bony pathology. US venous duplex LE LT IMPRESSION: No evidence of deep venous thrombosis involving the left lower extremity. > will treat as early cellulitis. Results discussed with patient including worrisome signs and symptoms and strict return precautions, and when to return to the emergency department. They verbalized understanding and feel safe for discharge at this time. Medical Decision Making Medical Decision Making [facility] Narrative: 52-year-old male with a past medical history of gastritis, gout, arthritis, asthma, presenting to the ED sent down from physical therapy for left foot pain/ inflamed vein. on exam mildly tachycardic likely from pain, NAD, nontoxic a ppearing, physical exam as noted above with small area of erythema and warmth to distal left 3rd metatarsal. Neurovascularly intact. Concern for DVT vs superficial thrombophlebitis vs early cellulitis vs ?gout. low suspicion for septic joint/arthritis, necrotizing fasciitis or arterial occlusion or fracture Plan: X-ray, venous duplex ultrasound Please refer to course for remaining clinical decision making, interpretation of labs/imaging results, and discussions with consultants and/or family members. Differential Diagnosis Differential Diagnoses: The differential diagnosis associated with the presentation includes As above Lab Data [facility] Lab Attestation statement: I reviewed the patient's lab results. Independent Interpretation I performed an independent interpretation of an: Plain X-Ray Radiology Impression Discussion of test interpretation with radiology: I have reviewed the radiologist's reading. External Record Review External record reviewed: Inpatient record, Office record, Outpatient record, Prior outpatient labs, Prior outpatient radiology, Primary care record and Outside ED record Tests considered The following testing was considered but not selected: As above Prescription Management I considered prescription management with: Pain Medication and Antibiotic Discharge Plan Discharge Clinical Impression: Cellulitis, Superficial thrombophlebitis Patient Disposition: Home, Self-Care Instructions: Cellulitis (DC), Superficial Thrombophlebitis (ED) Additional Instructions: Your ultrasound and x-ray were unremarkable. Keflex as an antibiotic please take as prescribed Consider compression stockings and elevation at home. Take Tylenol for pain Follow-up with your doctor If symptoms persist or worsen return to the ED Prescriptions: New cephalexin 500 mg capsule 500 mg PO QID 7 Days Qty: 28 0RF No Action Xolair 150 mg recon soln 225 mg subcut Q2W 28 Days Qty: 3 12RF Rx Instructions: requires multiple injection sites; do not exceed 150 mg per injection site fluticasone propionate [Flonase Allergy Relief] 50 mcg/actuation spray,suspension 1 spray intranasal BID 30 Days Qty: 16 6RF Rx Instructions: administer into each nostril Combivent Respimat 20-100 mcg/actuation mist 2 puff PO BID pregabalin [Lyrica] 150 mg Capsule 150 mg PO BID montelukast 10 mg tablet 1 tab PO BEDTIME albuterol sulfate 1.25 mg/3 mL solution for nebulization 1.25 mg inhalation QID PRN (Reason: shortness of breath or wheezing) Qty: 75 0RF albuterol sulfate 90 mcg/actuation HFA aerosol inhaler 1 inh inhalation QID PRN (Reason: shortness of breath or wheezing) Qty: 6.7 0RF loratadine 10 mg tablet 1 tab PO DAILY acetaminophen [Tylenol] 325 mg tablet 650 mg PO Q6H PRN (Reason: pain) Qty: 30 0RF oxycodone 5 mg tablet 5 mg PO TID PRN (Reason: pain) Qty: 14 0RF Rx Instructions: Partial Fill upon patient request. dexamethasone 4 mg tablet 4 mg PO DAILY omeprazole 40 mg capsule,delayed release(DR/EC) 40 mg PO BID Qty: 60 1RF prednisone 20 mg tablet 40 mg PO DAILY 5 Days Qty: 10 0RF albuterol sulfate 2.5 mg/0.5 mL solution for nebulization 2.5 mg inhalation Q20M Qty: 30 0RF Rx Instructions: for up to 3 doses albuterol sulfate 90 mcg/actuation HFA aerosol inhaler 2 puff inhalation QID PRN (Reason: shortness of breath or wheezing) Qty: 6.7 0RF mupirocin 2 % ointment 1 appl topical TID 7 Days Qty: 15 0RF prednisone 10 mg tablets,dose pack See Taper PO DAILY Qty: 48 0RF Taper: Prednisone 40 mg daily for 3 Days and 0 Hour 30 mg daily for 3 Days and 0 Hour 20 mg daily for 3 Days and 0 Hour 10 mg daily for 3 Days and 0 Hour tramadol 50 mg tablet 50 mg PO BID PRN (Reason: severe pain (scale score 7-10)) Qty: 5 0RF lisinopril 10 mg tablet 10 mg PO DAILY fluticasone propion-salmeterol [Advair HFA] 115-21 mcg/actuation HFA aerosol inhaler 2 puff inhalation Q12H 30 Days Qty: 1 6RF Referrals: Mirtha Lunsford MD [Primary Care Provider] - 5 days Interventions: ED Discharge Assessment Last Done: 11/09/22 10:25 Discharge Date/Time: 11/09/22 10:25
[2022-11-09 09:24] VITALS: BP 130/90; PULSE 87; RESP 18; O2SAT 98
--- NOTE | 2022-11-09 09:36 | PC.NURSE ---
aox4. CHRISTOS. reports L foot pain nonradiating. +CSM- no numbness/tingling. reports pain increases when walks. no other complaints. no cp/sob.
== END 2022-11-09 10:25 | disposition home or self-care (01) ==
PROVIDERS: Emergency Provider Emergency Medicine; PCP Family Medicine
DX: L03.116 Cellulitis of left lower limb (principal); M79.662 Pain in left lower leg; I80.02 Phlebitis and thrombophlebitis of superficial vessels of left lower extremity; R00.0 Tachycardia, unspecified; I10 Essential (primary) hypertension; F17.210 Nicotine dependence, cigarettes, uncomplicated; Z79.899 Other long term (current) drug therapy
CPT/HCPCS: 73630; 93971; 99284

== ENCOUNTER 2022-11-11 09:43 | Emergency (ER) | payer MEDICAID, SELFPAY ==
--- NOTE | ~2022-11-11 | XR_ITS ---
EXAMINATION: CR FOOT, RIGHT CLINICAL INFORMATION: Pain COMPARISON: Left foot films dated 11/09/2022. Right foot films dated 07/07/2022. TECHNIQUE: AP, lateral, and oblique views of the right foot. FINDINGS: Mild soft tissue swelling over the forefoot is seen centered at the distal metatarsal and proximal interphalangeal joints. No underlying acute fracture or dislocation is seen. Minimal spurring is seen at the first metatarsophalangeal joint. No other significant arthritic changes noted XR/XR foot RT 2V IMPRESSION: 1. Mild soft tissue swelling over the forefoot. No acute fracture or dislocation. 2. Minimal degenerative changes at the first metatarsophalangeal joint.
[2022-11-11 09:51] VITALS: BP 153/92; PULSE 110; RESP 19; TEMP 36.6; O2SAT 99; BMI 34.5
--- NOTE | 2022-11-11 10:25 | ED.LOWEXIN ---
HPI - Extremity Injury (Lower) General Chief Complaint: Extremity Injury, Lower Stated Complaint: r foot swelling Time Seen by Provider: 11/11/22 10:21 Source: patient Mode of arrival: ambulatory Limitations: no limitations History of Present Illness HPI Narrative: 52 yo male with history of arthritis, gastritis, hx pyelonephritis, hx solitary kidney, recently diagnosed cellulitis of the left foot here 2 days ago presents to the ER for evaluation of redness, pain and swelling at the base of the great toe on the right foot that started when he woke up today. He denies any injury or trauma. He states he has a history of gout in his other foot years ago. He denies any fever, chills, N/V/D. He has been taking the keflex for the left foot and it is getting better. MD complaint: foot injury Onset (ago): hour(s) Type of Injury: unknown Place: home Severity: moderate Relieving factors: immobilization and rest Exacerbating factors: weight bearing, movement and palpation Associated symptoms: able to partially bear weight Other symptoms: none Related Data Home Medications Medication Instructions Recorded Confirmed pregabalin 150 mg capsule (Lyrica) 150 mg PO BID 11/26/19 09/13/22 montelukast 10 mg tablet 1 tab PO BEDTIME 09/14/20 09/13/22 ipratropium 20 mcg-albuterol 100 2 puff PO BID 09/22/20 09/13/22 mcg/actuation mist for inhalation (Combivent Respimat) loratadine 10 mg tablet 1 tab PO DAILY 08/31/21 09/13/22 lisinopril 10 mg tablet 10 mg PO DAILY 05/11/22 09/13/22 dexamethasone 4 mg tablet 4 mg PO DAILY 09/13/22 09/13/22 Previous Rx's Medication Instructions Recorded omalizumab 150 mg subcutaneous 225 mg subcut Q2W 28 days #3 ea 12/11/20 solution (Xolair) albuterol sulfate 90 mcg/actuation 1 inh inhalation QID PRN shortness 05/20/21 aerosol inhaler of breath or wheezing #6.7 grams albuterol sulfate 1.25 mg/3 mL 1.25 mg (3 mL) inhalation QID PRN 11/21/21 solution for nebulization shortness of breath or wheezing #75 mL acetaminophen 325 mg tablet 650 mg (2 x 325 mg) PO Q6H PRN 08/19/22 (Tylenol) pain #30 tabs fluticasone propionate 115 2 puff inhalation Q12H 30 days #1 09/07/22 mcg-salmeterol 21 mcg/actuation ea HFA inhaler (Advair HFA) omeprazole 40 mg capsule,delayed 40 mg PO BID #60 caps 09/16/22 release oxycodone 5 mg tablet 5 mg PO TID PRN pain #14 tabs 09/21/22 fluticasone propionate 50 1 spray intranasal BID 30 days #16 09/23/22 mcg/actuation nasal grams spray,suspension (Flonase Allergy Relief) albuterol sulfate 2.5 mg/0.5 mL 2.5 mg (0.5 mL) inhalation Q20M 09/29/22 solution for nebulization #30 ea albuterol sulfate 90 mcg/actuation 2 puff inhalation QID PRN 09/29/22 aerosol inhaler shortness of breath or wheezing #6.7 grams mupirocin 2 % topical ointment 1 appl topical TID 7 days #15 grams 09/29/22 prednisone 20 mg tablet 40 mg (2 x 20 mg) PO DAILY 5 days 09/29/22 #10 tabs cephalexin 500 mg capsule 500 mg PO QID 7 days #28 caps 11/09/22 prednisone 10 mg tablets in a dose See Taper PO DAILY #48 ea 11/11/22 pack tramadol 50 mg tablet 50 mg PO BID PRN severe pain 11/11/22 (scale score 7-10) #5 tabs Allergies Allergy/AdvReac Type Severity Reaction Status Date / Time Iodinated Contrast Media Allergy Severe Unknown Verified 11/11/22 09:50 ibuprofen [From MOTRIN] Allergy Unknown KIDNEY Verified 11/11/22 09:50 ISSUES mushroom AdvReac Mild VOMITING Verified 11/11/22 09:50 amlodipine AdvReac Unknown Swelling Verified 11/11/22 09:50 Review of Systems Review of Systems: Yes all other systems are reviewed and are negative PMFSH Past Medical History Medical History Asthma with exacerbation Hypertension 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 Arthritis Asthma Surgical History History of unilateral nephrectomy H/O neck surgery Previous back surgery H/O kidney removal Family History Family History Mother Hypertension Asthma Father Medical history unknown Social History Social History Household Members: None Housing: Apartment Do you presently have visiting nurse or other home services: No Alcohol intake: current Alcohol intake frequency: a few times a week Alcohol type: beer Patient Tobacco Use Status: Current everyday Tobacco user Tobacco use type: Cigarette Cigarettes Per Day: 5 Years Smoked: 20 years e-Cigarette/Vaping Use: Former Use Second Hand Smoke Exposure: No Advance Directives: No service: No Current occupational status: employed Physical Exam Vital Signs: Vital Signs: Last Vital Signs Temp 98 F 11/11/22 09:51 Pulse 110 H 11/11/22 09:51 Resp 19 11/11/22 09:51 BP 153/92 H 11/11/22 09:51 Pulse Ox 99 11/11/22 09:51 O2 Del Method Room Air 11/11/22 09:51 BMI result Body Mass Index 34.5 Appearance: Alert. Oriented X3. No acute distress. HEENT: normal inspection CVS: Normal heart rate and rhythm. Pulses normal. Respiratory: No respiratory distress. Skin: Skin warm and dry. Normal skin color. Normal skin turgor. No rashes. Extremities: right foot with erythema, swelling and tenderness of the 1st MTP joint. no fluctuance or induration. pain w/ movement of the toe. no open wounds. NV intact distally. left foot with mild erythema, minimal warmth on the top of the foot Neuro: Oriented X 3. No motor deficit. No sensory deficit. antalgic gait Medications Administered Discontinued Medications Generic Name Dose Route Start Last Admin Trade Name Freq PRN Reason Stop Dose Admin Ketorolac Tromethamine 30 mg 11/11/22 11:37 11/11/22 11:51 Ketorolac Tromethamine 30 Mg/Ml Vial IM 11/11/22 11:38 30 mg ONCE ONE Administration Prednisone 60 mg 11/11/22 11:37 11/11/22 11:51 Prednisone 20 Mg Tablet PO 11/11/22 11:38 60 mg ONCE ONE Administration Medical Decision Making Medical Decision Making MDM Narrative: 52 yo male presenting to the ER for evaluation of nontraumatic right great toe pain, redness and swelling that started today. he is already on abx for cellulitis of the left foot exam is c/w acute gout flare of the right great toe x-ray reviewed no indication for joint aspiration today, low suspicion for infection will start on prednisone, has 1 kidney cannot take nsaids Differential Diagnosis Differential Diagnoses: The differential diagnosis associated with the presentation includes gout, septic joint, cellulitis, abscess, fracture Independent Interpretation I performed an independent interpretation of an: Plain X-Ray Interpretation: no acute fracture, agree w/ radiology read Radiology Impression Discussion of test interpretation with radiology: I have reviewed the radiologist's reading. Radiologist Impression: EXAMINATION: CR FOOT, RIGHT CLINICAL INFORMATION: Pain COMPARISON: Left foot films dated 11/09/2022. Right foot films dated 07/07/2022. TECHNIQUE: AP, lateral, and oblique views of the right foot. FINDINGS: Mild soft tissue swelling over the forefoot is seen centered at the distal metatarsal and proximal interphalangeal joints. No underlying acute fracture or dislocation is seen. Minimal spurring is seen at the first metatarsophalangeal joint. No other significant arthritic changes noted XR/XR foot RT 2V IMPRESSION: 1. Mild soft tissue swelling over the forefoot. No acute fracture or dislocation. 2. Minimal degenerative changes at the first metatarsophalangeal joint. External Record Review External record reviewed: Outpatient record, Prior outpatient labs and Prior outpatient radiology Prescription Management I considered prescription management with: Pain Medication and Other (steroids) Chronic Conditions Patient?s care impacted by: Other (hx solitary kidney, cannot use NSAIDS) Critical Care Time Critical Care Time Critical Care Time: No Discharge Plan Discharge Clinical Impression: Gout Qualifiers: Gout site: toe Gout etiology: unspecified cause Chronicity: acute Laterality: right Qualified Code(s): M10.9 - Gout, unspecified Patient Disposition: Home, Self-Care Instructions: Low Purine Diet (ED), Gout (ED) Additional Instructions: Your x-ray read is still pending, if there is an abnormality, we will call you. Take the prescribed steroid taper as directed. Start this medication tomorrow, your given 1st dose today in the emergency department. Recommend Tylenol 975 mg every 6 hours around the clock for mild to moderate pain. Take the prescribed Tramadol as needed for severe pain only. Follow-up with primary care doctor. If you develop new or worsening symptoms call 911 or come back to the ER for further evaluation. Prescriptions: New prednisone 10 mg tablets,dose pack See Taper PO DAILY Qty: 48 0RF Taper: Prednisone 40 mg daily for 3 Days and 0 Hour 30 mg daily for 3 Days and 0 Hour 20 mg daily for 3 Days and 0 Hour 10 mg daily for 3 Days and 0 Hour tramadol 50 mg tablet 50 mg PO BID PRN (Reason: severe pain (scale score 7-10)) Qty: 5 0RF No Action Xolair 150 mg recon soln 225 mg subcut Q2W 28 Days Qty: 3 12RF Rx Instructions: requires multiple injection sites; do not exceed 150 mg per injection site fluticasone propionate [Flonase Allergy Relief] 50 mcg/actuation spray,suspension 1 spray intranasal BID 30 Days Qty: 16 6RF Rx Instructions: administer into each nostril Combivent Respimat 20-100 mcg/actuation mist 2 puff PO BID pregabalin [Lyrica] 150 mg Capsule 150 mg PO BID montelukast 10 mg tablet 1 tab PO BEDTIME albuterol sulfate 1.25 mg/3 mL solution for nebulization 1.25 mg inhalation QID PRN (Reason: shortness of breath or wheezing) Qty: 75 0RF albuterol sulfate 90 mcg/actuation HFA aerosol inhaler 1 inh inhalation QID PRN (Reason: shortness of breath or wheezing) Qty: 6.7 0RF loratadine 10 mg tablet 1 tab PO DAILY acetaminophen [Tylenol] 325 mg tablet 650 mg PO Q6H PRN (Reason: pain) Qty: 30 0RF oxycodone 5 mg tablet 5 mg PO TID PRN (Reason: pain) Qty: 14 0RF Rx Instructions: Partial Fill upon patient request. dexamethasone 4 mg tablet 4 mg PO DAILY omeprazole 40 mg capsule,delayed release(DR/EC) 40 mg PO BID Qty: 60 1RF prednisone 20 mg tablet 40 mg PO DAILY 5 Days Qty: 10 0RF albuterol sulfate 2.5 mg/0.5 mL solution for nebulization 2.5 mg inhalation Q20M Qty: 30 0RF Rx Instructions: for up to 3 doses albuterol sulfate 90 mcg/actuation HFA aerosol inhaler 2 puff inhalation QID PRN (Reason: shortness of breath or wheezing) Qty: 6.7 0RF mupirocin 2 % ointment 1 appl topical TID 7 Days Qty: 15 0RF cephalexin 500 mg capsule 500 mg PO QID 7 Days Qty: 28 0RF lisinopril 10 mg tablet 10 mg PO DAILY fluticasone propion-salmeterol [Advair HFA] 115-21 mcg/actuation HFA aerosol inhaler 2 puff inhalation Q12H 30 Days Qty: 1 6RF Referrals: Mirtha Lunsford MD [Primary Care Provider] - Interventions: ED Discharge Assessment Last Done: 11/11/22 13:05 Discharge Date/Time: 11/11/22 13:05
[2022-11-11] MEDS: predniSONE 20 MG TABLET 60 MG PO (11:51)
[2022-11-11] MEDS: Ketorolac Tromethamine 30 MG/ML VIAL IM (11:51)
== END 2022-11-11 13:05 | disposition home or self-care (01) ==
PROVIDERS: Emergency Provider Emergency Medicine; PCP Family Medicine
DX: M10.9 Gout, unspecified (principal); M79.671 Pain in right foot; Z79.899 Other long term (current) drug therapy; F17.210 Nicotine dependence, cigarettes, uncomplicated
CPT/HCPCS: 73620; 96372; 99283; 99284; J1885

== ENCOUNTER 2022-11-16 07:36 | Outpatient (REF) | payer MEDICAID, SELFPAY | END 2022-11-16 07:37 | disposition home or self-care (01) | LOC: HO.MDS 07:36 | PROVIDERS: Visit Provider Internal Medicine Pulmonary Disease | DX: J45.50 Severe persistent asthma, uncomplicated (principal) | CPT/HCPCS: 96372; J2357 ==

== ENCOUNTER 2022-11-16 08:00 | Outpatient (RCR) | payer MEDICAID, SELFPAY | END 2023-03-07 09:39 | disposition home or self-care (01) | LOC: HO.PT 08:00 | PROVIDERS: PCP Family Medicine; Visit Provider Physician Assistant | DX: M54.50 Low back pain, unspecified (principal) | CPT/HCPCS: 97110; 97140; 97161; 97530 ==

== ENCOUNTER 2022-11-28 09:02 | Inpatient (IN) | payer MEDICAID, SELFPAY ==
[2022-11-28] VITALS (13 sets, daily range): BP systolic 131–163; BP diastolic 82–93; PULSE 95–130; RESP 14–24; TEMP 36.3–36.9; O2SAT 94–97; BMI 35.3
--- NOTE | 2022-11-28 09:22 | PC.NURSE ---
Patient reports sob that started yesterday and has gotten worse. states that he did two updrafts this morning at 2am and 6am with no relief. Reports productive cough with whwite sputum. Wheezing heard bilaterally. VSS Sinus tacy on monitor.
--- NOTE | 2022-11-28 09:36 | ED_ITS ---
HPI - Asthma General Chief Complaint: Asthma Stated Complaint: SOB Time Seen by Provider: 11/28/22 09:30 Source: patient Mode of arrival: ambulatory Limitations: no limitations History of Present Illness HPI Narrative: Patient is a 52 old male presents emergency department for evaluation of shortness of breath, chest pain diffuse throughout the anterior chest experienced only during episode deep breathing and cough. Cough is productive at times with yellow phlegm. Positive home nebulizers without sub mint. States that this does feel consistent with his prior episodes of asthma exacerbation. Denies any known sick contacts. Denies fevers, chills, headache, sore throat, neck pain, abdominal pain, nausea, vomiting, lower extremity pain, recent surgery, or prolonged immobilization. Related Data Home Medications Medication Instructions Recorded Confirmed pregabalin 150 mg capsule (Lyrica) 150 mg PO BID 11/26/19 11/28/22 montelukast 10 mg tablet 1 tab PO BEDTIME 09/14/20 11/28/22 loratadine 10 mg tablet 1 tab PO DAILY 08/31/21 11/28/22 lisinopril 10 mg tablet 10 mg PO DAILY 05/11/22 11/28/22 cyclobenzaprine 10 mg tablet 10 mg PO BEDTIME PRN muscle pain 11/28/22 11/28/22 ipratropium 20 mcg-albuterol 100 1 puff inhalation BID Shortness Of 11/28/22 11/28/22 mcg/actuation mist for inhalation Breath Or Wheezing (Combivent Respimat) nicotine 21 mg/24 hr daily 1 patch transdermal DAILY 11/28/22 11/28/22 transdermal patch Previous Rx's Medication Instructions Recorded omalizumab 150 mg subcutaneous 225 mg subcut Q2W 28 days #3 ea 12/11/20 solution (Xolair) acetaminophen 325 mg tablet 650 mg (2 x 325 mg) PO Q6H PRN 08/19/22 (Tylenol) pain #30 tabs fluticasone propionate 115 2 puff inhalation Q12H 30 days #1 09/07/22 mcg-salmeterol 21 mcg/actuation ea HFA inhaler (Advair HFA) fluticasone propionate 50 1 spray intranasal BID 30 days #16 09/23/22 mcg/actuation nasal grams spray,suspension (Flonase Allergy Relief) albuterol sulfate 90 mcg/actuation 2 puff inhalation QID PRN 09/29/22 aerosol inhaler shortness of breath or wheezing #6.7 grams tramadol 50 mg tablet 50 mg PO BID PRN severe pain 11/11/22 (scale score 7-10) #5 tabs Allergies Allergy/AdvReac Type Severity Reaction Status Date / Time Iodinated Contrast Media Allergy Severe Unknown Verified 11/11/22 09:50 ibuprofen [From MOTRIN] Allergy Unknown KIDNEY Verified 11/11/22 09:50 ISSUES mushroom AdvReac Mild VOMITING Verified 11/11/22 09:50 amlodipine AdvReac Unknown Swelling Verified 11/11/22 09:50 Review of Systems 2 Review of Systems: Yes all other systems are reviewed and are negative [facility] Past Medical History Attestation statement: The following information was validated with the patient. Source: old records reviewed Medical History Asthma with exacerbation Hypertension 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 Arthritis Asthma Surgical History History of unilateral nephrectomy H/O neck surgery Previous back surgery H/O kidney removal Family History Family History Mother Hypertension Asthma Father Medical history unknown Social History Social History Household Members: None Housing: Apartment Do you presently have visiting nurse or other home services: No Alcohol intake: current Alcohol intake frequency: holidays/special occasions only Alcohol type: beer Patient Tobacco Use Status: Current everyday Tobacco user Tobacco use type: Cigarette Cigarette Packs Per Day: 0 Cigarettes Per Day: 4 Years Smoked: 20 years e-Cigarette/Vaping Use: Former Use Second Hand Smoke Exposure: No service: No Current occupational status: employed Physical Exam 2 Vital Signs: Vital Signs: Last Vital Signs Temp 98.4 F 11/28/22 19:36 Pulse 105 H 11/28/22 19:54 Resp 16 11/28/22 19:54 BP 148/84 H 11/28/22 19:36 Pulse Ox 96 11/28/22 19:36 O2 Del Method Nasal Cannula 11/28/22 19:36 O2 Flow Rate 2 11/28/22 19:36 BMI result Body Mass Index 35.3 Appearance: Alert.?Oriented to person, place and time. No acute distress.?Normal affect. Eyes: Pupils equal, round and reactive to light.? ENT: Pharynx normal.?? Neck: Normal inspection.? Neck supple.??No cervical lymphadenopathy. CVS: Heart sounds normal. Sinus tachycardia.? Pulses normal.?? Respiratory: Increased work of breathing.? Lung sounds with inspiratory and expiratory wheezing bilaterally Abdomen: Soft and non-tender. Normoactive bowel sounds. Skin: Skin warm and dry.? Normal skin color.? ? Extremities: No lower extremity edema.? No calf ttp? Neuro: Moves all extremities spontaneously. Sensation intact bilaterally. CN II- XII intact. No focal neuro deficits. Ambulates with normal steady gait. Course Reevaluation(s) Reevaluation #1: EKG revealing a sinus tachycardia without acute ischemic findings, troponin 16.4, at this time suspect secondary to demand ischemia versus ACS, comparable with prior levels. Chest x-rays without evidence of pneumonia,mildl leukoctosis 12.5, likely inflamatory not consistent with sepsis. COVID-19 testing is negative. At this time suspect symptoms most consistent with asthma exacerbation; thus far he has received albuterol 7.5 mg nebulizer, 60 of prednisone orally, and remains with significant inspiratory and expiratory wheezing. Will trial mag 2 g IV, and Solu-Medrol 40 mg IV. Time: 12:25 Reevaluation #2: Patient with improvement in shortness of breath at rest after receiving magnesium and Solu-Medrol. Attempted ambulatory O2 trial, O2 saturation down to 92% on room air, tachycardic with heart rate to the 130s, significant dyspnea, fatigue, and cough upon ambulation. Spoke with hospitalist, Dr. Love for admission to medicine service for treatment of asthma exacerbation, will additionally obtain venous blood gas at this time. Time: 14:24 Medications Administered Generic Name Dose Route Start Last Admin Trade Name Freq PRN Reason Stop Dose Admin Albuterol/Ipratropium 3 ml 11/28/22 16:00 11/28/22 19:51 Albuterol/Iprat 2.5/0.5mg 3 Ml Ampul.Neb INHALE 3 ml RQ4H JUAN Administration Cefuroxime Axetil 500 mg 11/28/22 21:00 11/28/22 19:43 Cefuroxime Axetil 500 Mg Tablet PO 500 mg BID JUAN Administration Enoxaparin Sodium 40 mg 11/28/22 18:00 11/28/22 17:42 Enoxaparin Sodium 40 Mg/0.4 Ml Syringe SUBCUT 40 mg Q24H JUAN Administration Hydrocodone Bit/Homatropine Methylb 10 ml 11/28/22 17:00 11/28/22 19:43 Hydrocodone/Homat 5/1.5/5 Ml 5 Ml Syrup PO 10 ml QID JUAN Administration Methylprednisolone Sodium Succinate 40 mg 11/28/22 21:00 11/28/22 19:43 Methylprednisolone Sod Succ 40 Mg/Ml Vial IVPUSH 40 mg BID JUAN Administration Nicotine 21 mg 11/28/22 15:15 11/28/22 15:15 Nicotine 21 Mg Patch.Td24 TRANSDERMA 21 mg DAILY JUAN Administration Omeprazole 20 mg 11/28/22 16:30 11/28/22 17:42 Omeprazole 20 Mg Capsule.Dr PO 20 mg BID@0630,1630 JUAN Administration Sodium Chloride 3 ml 11/28/22 16:00 11/28/22 17:42 0.9 % Sodium Chloride Flush 3 Ml Syringe IVFLUSH 3 ml QSHIFT JUAN Administration Discontinued Medications Generic Name Dose Route Start Last Admin Trade Name Freq PRN Reason Stop Dose Admin Acetaminophen 975 mg 11/28/22 12:25 11/28/22 12:42 Acetaminophen 325 Mg Tablet PO 11/28/22 12:26 975 mg ONCE ONE Administration Albuterol Sulfate 2.5 mg/ 5 mg 11/28/22 09:48 11/28/22 09:52 Albuterol Sulfate 2.5 mg INHALE 11/28/22 09:49 5 mg ONCE ONE Administration Albuterol Sulfate 2.5 mg/ 0 mg 11/28/22 10:57 11/28/22 10:59 Albuterol/Ipratropium 3 ml INHALE 11/28/22 10:58 2.5 dose ONCE ONE Administration Magnesium Sulfate 2 gm in 50 mls @ 50 mls/hr 11/28/22 15:40 11/28/22 17:38 Magnesium Sulfate/H2o IV 11/28/22 16:39 Infused ONCE ONE Infusion Loratadine 10 mg 11/28/22 15:01 11/28/22 15:15 Loratadine 10 Mg Tablet PO 11/28/22 15:02 10 mg ONCE ONE Administration Methylprednisolone Sodium Succinate 40 mg 11/28/22 12:24 11/28/22 12:39 Methylprednisolone Sod Succ 40 Mg/Ml Vial IVPUSH 11/28/22 12:25 40 mg ONCE ONE Administration Prednisone 60 mg 11/28/22 09:40 11/28/22 09:52 Prednisone 20 Mg Tablet PO 11/28/22 09:41 60 mg ONCE ONE Administration Medical Decision Making Medical Decision Making [facility] Narrative: Patient is a 52-year-old male with past medical history of asthma, gout, gastritis, pyelonephritis presenting to emergency department for evaluation of shortness of breath as per HPI. At the time my examination he is noted to have mild increased work of breathing, tachypnea and tachycardia, speaking short sentences, diffuse expiratory wheezing throughout, and no use of accessory muscles. Will obtain CBC to evaluate for leukocytosis/ anemia, CMP to evaluate for abnormal electrolytes /abnormal renal function/ abnormal hepatic function, EKG and troponin to evaluate for ischemia/ACS. Chest x-ray to evaluate for consolidation/ infiltrate/ mass/ pulmonary congestion COVID-19 and influenza testing. At this time Lower suspicion for ACS, Wells score for DVT -2; low risk, unlikely suspect viral syndrome v. pneumonia v. asthma exacerbation as etiology for symptoms. Suspect tachypnea and tachycardia due to respiratory distress, afebrile, low suspicionfor sepsis. ED bronch protocol ordered and prednisone 60 mg orally. Differential Diagnosis Differential Diagnoses: The differential diagnosis associated with the presentation includes (As noted above) Admission/Observation Consideration of admission/observation: Escalation of care including admission/observation considered (I considered admission upon arrival, see course narrative for further detail) Lab Data [facility] Lab Attestation statement: I reviewed the patient's lab results. Labs revealing a very mild leukocytosis at 12.5, overall unremarkable CMP. 11/28/22 09:55 11/28/22 09:55 Labs: Lab Results 11/28/22 11/28/22 Range/Units 09:55 09:58 WBC 12.5 H (4.8-10.8) X10*3/uL RBC 4.91 (4.60-5.80) X10*6/uL Hgb 15.2 (14.0-18.0) g/dl Hct 45.9 (42.0-52.0) % MCV 93.5 (80.0-98.0) fL MCH 31.0 (27.0-33.0) pg MCHC 33.1 (31.0-36.0) g/dl RDW 12.6 (11.0-16.0) % Plt Count 228 (160-400) X10*3/uL MPV 11.4 (9.4-12.4) fL Immature Gran % (Auto) 0.8 H (0.0-0.4) % Neut % (Auto) 91.7 H (45-73) % Lymph % (Auto) 3.8 L (20-40) % [place] % (Auto) 2.5 (2-11) % Eos % (Auto) 0.9 (0-4) % Baso % (Auto) 0.3 (0-2) % Lymph # (Auto) 0.5 L (1.2-4.9) X10*3/uL [place] # (Auto) 0.3 (0.1-1.2) X10*3/uL Eos # (Auto) 0.1 (0.0-0.4) X10*3/uL Baso # (Auto) 0.0 (0.0-0.2) X10*3/uL Abs Immat Gran (auto) 0.10 H (0.00-0.03) X10*3/uL Absolute Neuts (auto) 11.5 H (2.0-8.3) x10*3/uL Absolute Nucleated RBC 0.000 (0.0-0.012) X10*3/uL Nucleated RBC % (auto) 0.0 (0.0-0.2) /100WBC Smear Tech's Comments VERIFIED Sodium 140 (135-145) mmol/L Potassium 4.5 (3.3-5.1) mmol/L Chloride 110 H (96-108) mmol/L Carbon Dioxide 19 L (22-29) mmol/L Anion Gap 16 (12-20) BUN 12 (9-16) mg/dL Creatinine 1.00 (0.5-1.4) mg/dL Estim Creat Clear Calc 93.1 Estimated GFR > 60 Random Glucose 189 H (60-115) mg/dL Calcium 9.1 D (8.4-10.2) mg/dL Magnesium 2.0 (1.6-2.6) mg/dL Total Bilirubin 0.3 (0.0-1.0) mg/dL AST 18 (5-37) U/L ALT 17 (0-40) U/L Alkaline Phosphatase 93 (39-117) U/L Troponin I High Sens 16.4 D (<3.5-35.0) ng/L Total Protein 7.5 (6.5-8.0) g/dL Albumin 4.1 (3.5-5.0) g/dL COVID-19 ([facility]) Negative (Negative) COVID-19 Clin Com See Note Independent Interpretation I performed an independent interpretation of an: EKG and Plain X-Ray (I personally interpreted chest x-ray and agree with radiologist impression, no evidence of consolidation or infiltrate) Interpretation: Rate: 113 Rhythm:? Sinus tachycardia Normal P waves.? Normal LUCY.?? Normal QRS complex.?? ST T wave :??No ST elevation, no ST depression, no T-wave inversion qTC: 449 prior studies:? September 2022 The study has been interpreted contemporaneously by me. Radiology Impression Discussion of test interpretation with radiology: I have reviewed the radiologist's reading. Radiologist Impression: XR/XR chest 2V IMPRESSION: Unremarkable chest examination. No change from 09/29/2022 External Record Review External record reviewed: Outpatient record Critical Care Time Critical Care Time Critical Care Time: Yes Total Critical Care Time: 35 Attestation: I personally attest to this critical care time spent taking care of the patient exclusive of all other billable procedures was approximately 35 minutes including initial evaluation of patient, ordering tests, x-ray interpretation, EKG interpretation, medical consultation, documentation, re-evaluation. Discharge Plan Discharge Clinical Impression: Asthma with acute exacerbation Patient Disposition: Admitted As Inpatient Interventions: Admission Worksheet (ED) Last Done: 11/28/22 18:19 Discharge Date/Time: 11/28/22 18:20
--- NOTE | 2022-11-28 10:15 | PC.NURSE ---
Updraft provided by respiratory, patient reports some relief, wheezing improved
[2022-11-28 10:16] LABS: COVID-19 Test Negative (Negative); IDNOW Serial# 55D5AD1C
[2022-11-28 10:17] LABS: Alanine Aminotransferase 17 U/L (0-40); Albumin Level 4.1 g/dL (3.5-5.0); Alkaline Phosphatase 93 U/L (39-117); Anion Gap 16 (12-20); Aspartate Amino Transferase 18 U/L (5-37); Bilirubin Total 0.3 mg/dL (0.0-1.0); Blood Urea Nitrogen 12 mg/dL (9-16); Calcium 9.1 mg/dL (8.4-10.2); Carbon Dioxide 19 mmol/L (22-29); Chloride 110 mmol/L (96-108); Creatinine Clr Calc Pharmacy 93.1; Estimated Glomerular Filt Rate > 60; Glucose Random 189 mg/dL (60-115); Potassium 4.5 mmol/L (3.3-5.1); Sodium 140 mmol/L (135-145); Total Protein 7.5 g/dL (6.5-8.0)
--- NOTE | 2022-11-28 10:41 | PC.NURSE ---
Patient reports difficulty breathing again, 95% on RA, wheezing heard bilaterally, provider notified, stated to call respiratory, respiratory called
--- NOTE | 2022-11-28 10:58 | PC.NURSE ---
Seen by respiratory, new orders obtained
[2022-11-28] MEDS: Nicotine 21 MG PATCH.TD24 TRANSDERMA (15:15)
--- NOTE | 2022-11-28 15:29 | PM.IMHP ---
History of Present Illness Date of Service: 11/28/22 Attending physician on admission: Mary Grace Love Chief Complaint: asthma excerebation,possible uri,tachycardia 52 old male presents emergency department for evaluation of shortness of breath,aggressive coughing ,feels tight /sob which is more during cough and deep breathing . Cough is productive at times with yellow phlegm. In addition patient says he has been area and scratchy feeling in throat. Positive home nebulizers without benefit . States that this does feel consistent with his prior episodes of asthma exacerbation. Denies any known sick contacts or travel. Denies fevers, chills, headache, neck pain, abdominal pain, nausea, vomiting, lower extremity pain, recent surgery, or prolonged immobilization. patient was given -nebs steriods in ed -sob minimum improvement ,has aggaressive cough ,uri like symptoms-ed requested admission for asthma excerebation. Lab imaging ekg reviewed: wbc: 12.5 bmp fine . ekg is sinus tachycardia Review of Systems Review of Systems: as above. [facility] Medical History Asthma with exacerbation Hypertension 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 Arthritis Asthma Family History Mother Hypertension Asthma Father Medical history unknown Surgical History History of unilateral nephrectomy H/O neck surgery Previous back surgery H/O kidney removal Social History Household Members: None Housing: Apartment Do you presently have visiting nurse or other home services: No Alcohol intake: current Alcohol intake frequency: holidays/special occasions only Alcohol type: beer Patient Tobacco Use Status: Current everyday Tobacco user Tobacco use type: Cigarette Cigarettes Per Day: 5 Years Smoked: 20 years Smoked in Last 30 Days: Yes e-Cigarette/Vaping Use: Former Use Second Hand Smoke Exposure: No Use of substances other than those prescribed or required for medical reasons: No Advance Directives: No service: No Current occupational status: employed Meds Allergies Allergy/AdvReac Type Severity Reaction Status Date / Time Iodinated Contrast Media Allergy Severe Unknown Verified 11/11/22 09:50 ibuprofen [From MOTRIN] Allergy Unknown KIDNEY Verified 11/11/22 09:50 ISSUES mushroom AdvReac Mild VOMITING Verified 11/11/22 09:50 amlodipine AdvReac Unknown Swelling Verified 11/11/22 09:50 Active Medications: Current Medications Albuterol/Ipratropium (Albuterol/Iprat 2.5/0.5mg 3 Ml Ampul.Neb) 3 ml INHALE RQ4H JUAN Albuterol/Ipratropium (Albuterol/Iprat 2.5/0.5mg 3 Ml Ampul.Neb) 3 ml INHALE Q3H PRN PRN Reason: sob Cefuroxime Axetil (Cefuroxime Axetil 500 Mg Tablet) 500 mg PO BID [facility] Enoxaparin Sodium (Enoxaparin Sodium 40 Mg/0.4 Ml Syringe) 40 mg SUBCUT Q24H [facility] Hydrocodone Bit/Homatropine Methylb (Hydrocodone/Homat 5/1.5/5 Ml 5 Ml Syrup) 10 ml PO QID [facility] Last Admin: 11/28/22 15:14 Dose: 10 ml Methylprednisolone Sodium Succinate (Methylprednisolone Sod Succ 40 Mg/Ml Vial) 40 mg IVPUSH BID [facility] Nicotine (Nicotine 21 Mg Patch.Td24) 21 mg TRANSDERMA DAILY [facility] Last Admin: 11/28/22 15:15 Dose: 21 mg Sodium Chloride (0.9 % Sodium Chloride Flush 3 Ml Syringe) 3 ml IVFLUSH QSHIFT [facility] Home Medications Medication Instructions Recorded Confirmed Last Taken Type pregabalin 150 mg capsule (Lyrica) 150 mg PO BID 11/26/19 09/13/22 08/30/21 History montelukast 10 mg tablet 1 tab PO BEDTIME 09/14/20 09/13/22 08/30/21 History loratadine 10 mg tablet 1 tab PO DAILY 08/31/21 09/13/22 08/30/21 History lisinopril 10 mg tablet 10 mg PO DAILY 05/11/22 09/13/22 Unknown History cyclobenzaprine 10 mg tablet 10 mg PO BEDTIME PRN muscle pain 11/28/22 11/28/22 Unknown History nicotine 14 mg/24 hr daily 1 patch topical DAILY 11/28/22 11/28/22 Unknown History transdermal patch sertraline 100 mg tablet 100 mg PO DAILY 11/28/22 11/28/22 Unknown History Physical Exam Vital Signs and Narrative: Vital Signs: Last Vital Signs Temp 98.5 F 11/28/22 11:56 Pulse 118 H 11/28/22 15:01 Resp 18 11/28/22 15:01 BP 163/93 H 11/28/22 15:18 Pulse Ox 94 11/28/22 15:01 O2 Del Method Room Air 11/28/22 15:01 BMI result Body Mass Index 35.3 Appearance: Alert.? Oriented X3.?sob. Eyes: Pupils equal, round and reactive to light. ENT: Pharynx -no much erythema cvs: rrr(tachycardia), [id number] , no murmur res: air entry tight , has bilateral wheezing abd: no rebound or guarding ,nt, bs present. ext pulses present , no cyanosis. neuro: axo3 , nonfocal. Results Labs 11/28/22 09:55 11/28/22 09:55 Labs: Laboratory Results - last 24 hr 11/28/22 11/28/22 09:55 09:58 MCV 93.5 MCH 31.0 MCHC 33.1 RDW 12.6 Plt Count 228 MPV 11.4 Immature Gran % (Auto) 0.8 H Neut % (Auto) 91.7 H Lymph % (Auto) 3.8 L [place] % (Auto) 2.5 Eos % (Auto) 0.9 Baso % (Auto) 0.3 Lymph # (Auto) 0.5 L [place] # (Auto) 0.3 Eos # (Auto) 0.1 Baso # (Auto) 0.0 Abs Immat Gran (auto) 0.10 H Absolute Neuts (auto) 11.5 H Absolute Nucleated RBC 0.000 Nucleated RBC % (auto) 0.0 Smear Tech's Comments VERIFIED Anion Gap 16 Estim Creat Clear Calc 93.1 Estimated GFR > 60 Random Glucose 189 H Calcium 9.1 D Magnesium 2.0 Total Bilirubin 0.3 AST 18 ALT 17 Alkaline Phosphatase 93 Total Protein 7.5 Albumin 4.1 COVID-19 ([facility]) Negative COVID-19 Clin Com See Note ECG Attestation: I personally reviewed and interpreted this ECG as follows: (sinus tachycardia) Imaging Radiologist's Impressions: Impressions Chest X-Ray 11/28/22 09:50 IMPRESSION: Unremarkable chest examination. No change from 09/29/2022 Assessment and Plan (1) Asthma exacerbation: Status: Resolved Plan 52-year-old male with past medical history of asthma execerbation/uri 1. asthma -moderate persistent asthma excerebation/possible uri viral covid neg,added res panel mild leucocytosis tachycardia -sec to cough aggressive and nebs. not hypoxic no sepsis given hour long treatment nebs -seems slightly improving started nebs ,steriods iv ,antbiotics,loratidine and cough meds. Rest of the home medication continue once medical reconciliation is done. DVT prophylaxis: lovenox. Time Spent With Patient Time: Total time managing care of this patient today ____ minutes. Quality Stroke Does the patient have a stroke diagnosis?: No VTE Prior VTE?: No VTE Risk Level:: Medical - moderate - high VTE Device Contraindication: N/A - Device Ordered VTE Drug Contraindication: N/A - Med Ordered
--- NOTE | 2022-11-28 16:55 | PHA.MEDREC ---
Pharmacy Consult ? Medication Reconciliation Pharmacy has completed the medication reconciliation. Patient states only used rescue inhaler and then came to hospital when pertaining to respiratory meds. Patient mentions they cannot take pregablin and tramadol together, with tramadol being reserved for severe pain. Patient is now on 21mg nicotine patch. Receives Xolair every 2 weeks.
--- NOTE | 2022-11-28 17:23 | PC.NURSE ---
Patient transferred form ED to rm [id number] ,RM [id number] did not have curtains,admissions order states Medical Telemetry,patient was transferred by Nursing Labeling Machine Operator,report was not called from ED.Nursing Labeling Machine Operator was called and asked to transfer patient because of other emergencies in ED .Dr. Love was notified and it is ok for this patient to stay on med-surg unit.
[2022-11-28] MEDS: Omeprazole 20 MG CAPSULE.DR PO (17:42)
[2022-11-29] VITALS (13 sets, daily range): BP systolic 132–159; BP diastolic 75–91; PULSE 79–130; RESP 17–25; TEMP 36.4–37.1; O2SAT 94–98
[2022-11-29] MEDS: Omeprazole 20 MG CAPSULE.DR PO (06:26)
--- NOTE | 2022-11-29 11:46 | HO.PM.IMPN ---
Subjective Subjective Date of Service: 11/29/22 Interval History: asthma excerebation, Review of Systems sob seems somewhat improving but still sob with minimum activity Still has aggressive cough He says he becomes tachycardic when receives nebulizer and has aggressive cough Physical Exam Vital Signs: Vital Signs: Last Vital Signs Temp 98.2 F 11/29/22 11:16 Pulse 112 H 11/29/22 11:16 Resp 24 H 11/29/22 11:16 BP 132/77 11/29/22 11:16 Pulse Ox 98 11/29/22 11:16 O2 Del Method Room Air 11/29/22 11:16 O2 Flow Rate 2 11/29/22 07:06 BMI result Body Mass Index 35.3 Appearance: Alert.? Oriented X3.?sob cvs: rrr(tachycardia improving), [id number] , no murmur res: air entry tight , has bilateral wheezing abd: no rebound or guarding ,nt, bs present. ext pulses present , no cyanosis. neuro: axo3 , nonfocal. Objective Data Active Medications Acetaminophen (Acetaminophen 325 Mg Tablet) 975 mg PO Q6H PRN PRN Reason: Pain, Mild (Pain Scale 1-3) Cefuroxime Axetil (Cefuroxime Axetil 500 Mg Tablet) 500 mg PO BID [facility] Last Admin: 11/29/22 09:07 Dose: 500 mg Documented By: JONN Enoxaparin Sodium (Enoxaparin Sodium 40 Mg/0.4 Ml Syringe) 40 mg SUBCUT Q24H [facility] Last Admin: 11/28/22 17:42 Dose: 40 mg Documented By: LUIS Hydrocodone Bit/Homatropine Methylb (Hydrocodone/Homat 5/1.5/5 Ml 5 Ml Syrup) 10 ml PO Q4H [facility] Last Admin: 11/29/22 09:06 Dose: 10 ml Documented By: JONN Loratadine (Loratadine 10 Mg Tablet) 10 mg PO DAILY [facility] Last Admin: 11/29/22 09:56 Dose: 10 mg Documented By: JONN Methylprednisolone Sodium Succinate (Methylprednisolone Sod Succ 40 Mg/Ml Vial) 40 mg IVPUSH BID [facility] Last Admin: 11/29/22 09:06 Dose: 40 mg Documented By: JONN Nicotine (Nicotine 21 Mg Patch.Td24) 21 mg TRANSDERMA DAILY [facility] Last Admin: 11/29/22 09:07 Dose: 21 mg Documented By: JONN Omeprazole (Omeprazole 20 Mg Capsule.) 20 mg PO BID@0630,1630 [facility] Last Admin: 11/29/22 06:26 Dose: 20 mg Documented By: IDALMIS Pregabalin (Pregabalin 150 Mg Capsule) 150 mg PO BID [facility] Last Admin: 11/29/22 10:08 Dose: 150 mg Documented By: JONN Sodium Chloride (0.9 % Sodium Chloride Flush 3 Ml Syringe) 3 ml IVFLUSH QSHIFT [facility] Last Admin: 11/29/22 09:12 Dose: 3 ml Documented By: JONN Labs 11/28/22 09:55 11/28/22 09:55 Labs: Laboratory Results - last 24 hr 11/28/22 11/28/22 15:30 15:36 Hold Purple Top SEE NOTE VBG pH 7.39 VBG pCO2 33 VBG pO2 52 VBG HCO3 20 L VBG O2 Saturation 80.0 VBG Base Excess -3.1 Hold Green Top See Note Assessment and Plan (1) Asthma with acute exacerbation: Status: Acute Plan 52-year-old male with past medical history of asthma execerbation/uri 1. acute asthma excerebation -moderate persistent asthma excerebation/possible uri viral covid neg,added res panel mild leucocytosis tachycardia -sec to cough aggressive and nebs. not hypoxic no sepsis minimum improment so far started nebs chnaged to xopenex ,steriods iv ,antbiotics,loratidine and adjusted cough meds. DVT prophylaxis: lovenox. ongoing hospitilisation need : acute asthma excerebation -moderate persistent asthma excerebation/possible uri viral-needs nebs,steriods ,respiraory status not optimal yet. Time Spent With Patient Time: Total time managing care of this patient today ____ minutes. Quality Stroke Does the patient have a stroke diagnosis?: No VTE Prior VTE?: No VTE Risk Level:: Medical - moderate - high VTE Device Contraindication: N/A - Device Ordered VTE Drug Contraindication: N/A - Med Ordered
--- NOTE | 2022-11-29 15:31 | MHC.CM.PN ---
PT REPORTS HE LIVES ALONE AND CARES FOR HIMSELF HE STATES BELIEVES HE NEEDS A C S S REPRESENTATIVE AND HAS AN APPT FOR AN EVALUATION WITH [facility] ON 12/20/22 PT USES A CANE TO AMBULATE AND DENIES HAVING ANY OTHER DME HE SAYS HE HAS A HCP, COPY REQUESTED PCP: LIMA AGUAYO DCP: HOME NO SERVICES PT TO ARRANGE TRANSPORT
[2022-11-30] VITALS (10 sets, daily range): BP systolic 130–170; BP diastolic 74–92; PULSE 82–110; RESP 18–24; TEMP 36.2–36.9; O2SAT 95–99
[2022-11-30 07:15] LABS: Adenovirus PCR Not Detected (Not Detect.); Bordetella parapertussis PCR Not Detected (Not Detect.); Bordetella pertussis PCR Not Detected (Not Detect.); Chlamydia pneumoniae PCR Not Detected (Not Detect.); Coronavirus 229E PCR Not Detected (Not Detect.); Coronavirus HKU1 PCR Not Detected (Not Detect.); Coronavirus NL63 PCR Not Detected (Not Detect.); Coronavirus OC43 PCR Not Detected (Not Detect.); Human metapneumovirus PCR Not Detected (Not Detect.); Influenza A PCR Not Detected (Not Detect.); Influenza B PCR Not Detected (Not Detect.); Mycoplasma pneumoniae PCR Not Detected (Not Detect.); Parainfluenza 1 PCR Not Detected (Not Detect.); Parainfluenza 2 PCR Not Detected (Not Detect.); Parainfluenza 3 PCR Not Detected (Not Detect.); Parainfluenza 4 PCR Not Detected (Not Detect.); RSV PCR Not Detected (Not Detect.); Rhino/Enterovirus PCR Detected (Not Detect.); SARS-CoV-2 PCR Not Detected (Not Detect.)
--- NOTE | 2022-11-30 14:20 | HO.PM.IMPN ---
Subjective Subjective Date of Service: 11/30/22 Interval History: complaining of persistent shortness of breath and cough, denies fever, no chills, no headache, no dizziness respiratory viral panel positive for rhino virus on 2 L of oxygen finger oximetry 96%. Review of Systems all other system reviewed and negative Physical Exam Vital Signs: Vital Signs: Last Vital Signs Temp 97.2 F 11/30/22 12:20 Pulse 100 11/30/22 12:36 Resp 24 H 11/30/22 12:36 BP 170/92 H 11/30/22 12:20 Pulse Ox 95 11/30/22 12:20 O2 Del Method Room Air 11/30/22 12:20 O2 Flow Rate 2 11/30/22 07:50 BMI result Body Mass Index 35.3 Const: Other: General awake alert x3 no acute distress Neck supple no JVD. CVS regular rate rhythm, Respiratory lungs bilateral expiratory wheeze, no use of accessory muscles Gastrointestinal abdomen soft, non tender, bowel sounds audible, no guarding , no rigidity. Extremities no edema. Neuro nonfocal , speech clear. Skin no rash Objective Data Active Medications Acetaminophen (Acetaminophen 325 Mg Tablet) 975 mg PO Q6H PRN PRN Reason: Pain, Mild (Pain Scale 1-3) Last Admin: 11/30/22 10:22 Dose: 975 mg Documented By: COTEMA Cefuroxime Axetil (Cefuroxime Axetil 500 Mg Tablet) 500 mg PO BID [facility] Last Admin: 11/30/22 08:15 Dose: 500 mg Documented By: COTEMA Enoxaparin Sodium (Enoxaparin Sodium 40 Mg/0.4 Ml Syringe) 40 mg SUBCUT Q24H [facility] Last Admin: 11/29/22 16:21 Dose: 40 mg Documented By: JONN Hydrocodone Bit/Homatropine Methylb (Hydrocodone/Homat 5/1.5/5 Ml 5 Ml Syrup) 10 ml PO Q4H [facility] Last Admin: 11/30/22 12:38 Dose: 10 ml Documented By: COTEMA Levalbuterol HCl (Levalbuterol Hcl 1.25 Mg/3 Ml Vial.Neb) 1.25 mg INHALE Q3H PRN PRN Reason: sob Levalbuterol HCl (Levalbuterol Hcl 1.25 Mg/3 Ml Vial.Neb) 1.25 mg INHALE RQ4H [facility] Last Admin: 11/30/22 12:36 Dose: 1.25 mg Documented By: TALIA Loratadine (Loratadine 10 Mg Tablet) 10 mg PO DAILY [facility] Last Admin: 11/30/22 08:15 Dose: 10 mg Documented By: COTEMA Methylprednisolone Sodium Succinate (Methylprednisolone Sod Succ 40 Mg/Ml Vial) 40 mg IVPUSH BID [facility] Last Admin: 11/30/22 08:15 Dose: 40 mg Documented By: COTEMA Nicotine (Nicotine 21 Mg Patch.Td24) 21 mg TRANSDERMA DAILY [facility] Last Admin: 11/30/22 08:15 Dose: 21 mg Documented By: KIMBERLEYEMA Omeprazole (Omeprazole 20 Mg Capsule.) 20 mg PO BID@0630,1630 [facility] Last Admin: 11/30/22 05:47 Dose: 20 mg Documented By: EDAFOAleksandar Pregabalin (Pregabalin 150 Mg Capsule) 150 mg PO BID [facility] Last Admin: 11/30/22 08:15 Dose: 150 mg Documented By: TAVIA Sodium Chloride (0.9 % Sodium Chloride Flush 3 Ml Syringe) 3 ml IVFLUSH QSHIFT [facility] Last Admin: 11/30/22 08:19 Dose: 3 ml Documented By: TAVIA Labs 11/28/22 09:55 11/28/22 09:55 Labs: Laboratory Results - last 24 hr 11/29/22 14:45 Respiratory Panel Sif[place]es See Note Adenovirus (Rapid PCR) Not Detected B.pert (TEM-PCR) Not Detected B.parapertussis DNA PCR Not Detected C. pneumoniae DNA (PCR) Not Detected Coronavirus OC43 (PCR) Not Detected Coronavirus HKU1 (PCR) Not Detected Coronavirus 229E (PCR) Not Detected Coronavirus NL63 (PCR) Not Detected Human Metapneumovir PCR Not Detected Influenza A (RT-PCR) Not Detected Influenza B (RT-PCR) Not Detected M. pneumoniae (PCR) Not Detected Parainfluenza 1 (PCR) Not Detected Parainfluenza 2 (PCR) Not Detected Parainfluenza 3 (PCR) Not Detected Parainfluenza 4 (PCR) Not Detected RSV (PCR) Not Detected Entero/Rhino (PCR) Detected A SARS-CoV-2 RNA (RT-PCR) Not Detected Assessment and Plan (1) Asthma with acute exacerbation: Status: Acute Plan 52-year-old male with past medical history of asthma execerbation/uri 1. acute excerebation of oderate persistent asthma respiratory viral panel positive for rhino virus,covid neg less tachycardia, will place on DuoNeb updraft scheduled q.4 hours, DC Xopenex continue IV steroids ,cough medications and loratadine wean oxygen as tolerated not on home oxygen DC Ceftin, continue supportive care 2. tobacco use disorder continue nicotine patch DVT prophylaxis: lovenox. ongoing hospitilisation need : acute asthma excerebation -moderate persistent asthma excerebation/possible uri viral-needs nebs,steriods ,respiraory status not optimal yet. Time Spent With Patient Time: Total time managing care of this patient today ____ minutes. Quality Stroke Does the patient have a stroke diagnosis?: No VTE Prior VTE?: No VTE Risk Level:: Medical - moderate - high VTE Device Contraindication: N/A - Device Ordered VTE Drug Contraindication: N/A - Med Ordered
[2022-12-01] VITALS (10 sets, daily range): BP systolic 137–152; BP diastolic 79–91; PULSE 91–115; RESP 2–18; TEMP 36.2–36.4; O2SAT 93–106
--- NOTE | 2022-12-01 11:08 | HO.PM.IMPN ---
Subjective Subjective Date of Service: 12/01/22 Interval History: complaining of persistent shortness of breath , cough, has headache this morning denies lightheadedness or dizziness, no fevers, no chills requiring 2 L of oxygen finger oximetry 95%, not on home O2. tolerating diet no nausea, no vomiting, no abdominal pain, no acute events overnight. Review of Systems all other system reviewed and negative Physical Exam Vital Signs: Vital Signs: Last Vital Signs Temp 97.5 F 12/01/22 07:42 Pulse 91 12/01/22 07:47 Resp 18 12/01/22 07:47 BP 143/79 H 12/01/22 07:42 Pulse Ox 95 12/01/22 07:42 O2 Del Method Nasal Cannula 12/01/22 07:42 O2 Flow Rate 2 12/01/22 07:42 BMI result Body Mass Index 35.3 Const: Other: General awake alert x3 no acute distress Neck supple no JVD. CVS regular rate rhythm, Respiratory lungs bilateral expiratory wheeze, no use of accessory muscles Gastrointestinal abdomen soft, non tender, bowel sounds audible, no guarding , no rigidity. Extremities no edema. Neuro nonfocal , speech clear. Skin no rash Objective Data Active Medications Acetaminophen (Acetaminophen 325 Mg Tablet) 975 mg PO Q6H PRN PRN Reason: Pain, Mild (Pain Scale 1-3) Last Admin: 12/01/22 08:32 Dose: 975 mg Documented By: COTEMA Albuterol/Ipratropium (Albuterol/Iprat 2.5/0.5mg 3 Ml Ampul.Neb) 3 ml INHALE RQ4H WHILE AWAKE [facility] Last Admin: 12/01/22 07:46 Dose: 3 ml Documented By: JHONATHAN Enoxaparin Sodium (Enoxaparin Sodium 40 Mg/0.4 Ml Syringe) 40 mg SUBCUT Q24H [facility] Last Admin: 11/30/22 16:38 Dose: 40 mg Documented By: COTEMA Fluticasone Propionate (Fluticasone Propionate Nasal 16 Gm [place]) 1 spray NOSTRIL-B BID [facility] Hydrocodone Bit/Homatropine Methylb (Hydrocodone/Homat 5/1.5/5 Ml 5 Ml Syrup) 10 ml PO QID [facility] Levalbuterol HCl (Levalbuterol Hcl 1.25 Mg/3 Ml Vial.Delgado) 1.25 mg INHALE Q3H PRN PRN Reason: sob Last Admin: 11/30/22 23:06 Dose: 1.25 mg Documented By: JIMENA Lisinopril (Lisinopril 10 Mg Tablet) 10 mg PO DAILY [facility]; Protocol Loratadine (Loratadine 10 Mg Tablet) 10 mg PO DAILY [facility] Last Admin: 12/01/22 08:32 Dose: 10 mg Documented By: COTEMA Methylprednisolone Sodium Succinate (Methylprednisolone Sod Succ 40 Mg/Ml Vial) 40 mg IVPUSH BID [facility] Last Admin: 12/01/22 08:32 Dose: 40 mg Documented By: KIMBERLEYEMA Montelukast Sodium (Montelukast Sodium 10 Mg Tablet) 10 mg PO BEDTIME [facility] Nicotine (Nicotine 21 Mg Patch.Td24) 21 mg TRANSDERMA DAILY [facility] Last Admin: 12/01/22 08:33 Dose: 21 mg Documented By: TAVIA Omeprazole (Omeprazole 20 Mg Capsule.) 20 mg PO BID@0630,1630 [facility] Last Admin: 12/01/22 05:37 Dose: 20 mg Documented By: CHET Pregabalin (Pregabalin 150 Mg Capsule) 150 mg PO BID [facility] Last Admin: 12/01/22 08:32 Dose: 150 mg Documented By: TAVIA Sodium Chloride (0.9 % Sodium Chloride Flush 3 Ml Syringe) 3 ml IVFLUSH QSHIFT [facility] Last Admin: 12/01/22 08:32 Dose: 3 ml Documented By: COTEMA Labs 11/28/22 09:55 11/28/22 09:55 Assessment and Plan (1) Asthma with acute exacerbation: Status: Acute Plan 52-year-old male with past medical history of asthma execerbation/uri 1. acute excerebation of moderate persistent asthma respiratory viral panel positive for rhino virus,covid neg. cxr neg on DuoNeb updraft scheduled q.4 hours scheduled and as needed, continue IV steroids ,cough medications and loratadine mild tachycardia likely due to updrafts will follow Resume Singulair and Flonase wean oxygen as tolerated not on home oxygen if patient continue to improve will wean iv steroids to by mouth at a.m. DC Ceftin, continue supportive care 2. tobacco use disorder continue nicotine patch DVT prophylaxis: lovenox. ongoing hospitilisation need : acute exacerbation of moderate persistent asthma / uri viral-needs nebs,steriods iv. Time Spent With Patient Time: Total time managing care of this patient today ____ minutes. Quality Stroke Does the patient have a stroke diagnosis?: No VTE Prior VTE?: No VTE Risk Level:: Medical - moderate - high VTE Device Contraindication: N/A - Device Ordered VTE Drug Contraindication: N/A - Med Ordered
--- NOTE | 2022-12-01 13:59 | MHC.CM.PN ---
Patient Lives alone. DP home no services private transport. Patient states that he has a CM Finoa; but she does not know where she is from. A call placed to the contact# provided by patient [phone]. The call went to her . Bess is from [facility] per her VM greeting. A VM was left with CM contact info.
[2022-12-01] MEDS: polyethylene glycoL 3350 17 GM POWD.PACK PO (16:45)
[2022-12-01] MEDS: HYDROcodone/Homat 5/1.5/5 ML 5 ML SYRUP 10 ML PO (20:31)
[2022-12-01] MEDS: methylPREDNISolone Sod Succ 40 MG/ML VIAL IVPUSH (20:31)
[2022-12-01] MEDS: Montelukast Sodium 10 MG TABLET PO (20:31)
[2022-12-01] MEDS: Pregabalin 150 MG CAPSULE PO (20:31)
[2022-12-01] MEDS: Fluticasone Propionate Nasal 16 GM SPRAY 1 SPRAY NOSTRIL-B (20:32)
[2022-12-01] MEDS: Albuterol/Iprat 2.5/0.5MG 3 ML AMPUL.NEB INHALE (20:44)
[2022-12-01] MEDS: Acetaminophen 325 MG TABLET 975 MG PO (20:46)
[2022-12-02] VITALS (10 sets, daily range): BP systolic 134–162; BP diastolic 73–91; PULSE 89–107; RESP 14–20; TEMP 36.2–36.7; O2SAT 93–97
[2022-12-02] MEDS: Albuterol/Iprat 2.5/0.5MG 3 ML AMPUL.NEB INHALE ×5 (01:21→20:25)
[2022-12-02] MEDS: polyethylene glycoL 3350 17 GM POWD.PACK PO (08:19)
[2022-12-02] MEDS: Nicotine 21 MG PATCH.TD24 TRANSDERMA (08:19)
[2022-12-02] MEDS: HYDROcodone/Homat 5/1.5/5 ML 5 ML SYRUP 10 ML PO ×4 (08:20→20:01)
[2022-12-02] MEDS: methylPREDNISolone Sod Succ 40 MG/ML VIAL IVPUSH ×2 (08:20→20:03)
[2022-12-02] MEDS: Loratadine 10 MG TABLET PO (08:21)
[2022-12-02] MEDS: Sennosides 8.6 MG TABLET 17.2 MG PO (08:21)
[2022-12-02] MEDS: Omeprazole 20 MG CAPSULE.DR PO ×2 (08:21→17:01)
[2022-12-02] MEDS: Pregabalin 150 MG CAPSULE PO ×2 (08:21→20:03)
[2022-12-02] MEDS: lisinopriL 10 MG TABLET PO (08:21)
[2022-12-02] MEDS: Fluticasone Propionate Nasal 16 GM SPRAY 1 SPRAY NOSTRIL-B ×2 (08:21→20:01)
[2022-12-02] MEDS: Benzonatate 100 MG CAPSULE PO ×3 (08:29→20:03)
--- NOTE | 2022-12-02 10:41 | P.PNIM_ITS ---
Subjective Subjective Date of Service: 12/02/22 Interval History: f/u on athma, persistent wheeze, sob Physical Exam 2 Vital Signs: Vital Signs: Last Vital Signs Temp 97.1 F 12/02/22 06:48 Pulse 94 12/02/22 06:48 Resp 18 12/02/22 06:48 BP 135/79 12/02/22 06:48 Pulse Ox 93 12/02/22 06:48 O2 Del Method Room Air 12/02/22 06:48 O2 Flow Rate 2 12/02/22 00:00 BMI result Body Mass Index 35.3 Const: Other: General: AO X 3, no acute distress Resp: lonnie wheeze, no accessory muscle use CVS: S1,S2,RRR GI: +BS, NT, no distention Skin: No rash Neuro: motor grossly intact Psych: appropriate affect Objective Data Active Medications Acetaminophen (Acetaminophen 325 Mg Tablet) 975 mg PO Q6H PRN PRN Reason: Pain, Mild (Pain Scale 1-3) Last Admin: 12/01/22 20:46 Dose: 975 mg Documented By: STEPHEN Albuterol/Ipratropium (Albuterol/Iprat 2.5/0.5mg 3 Ml Ampul.Neb) 3 ml INHALE RQ4H WHILE AWAKE [facility] Last Admin: 12/02/22 07:51 Dose: 3 ml Documented By: KELVIN Benzonatate (Benzonatate 100 Mg Capsule) 100 mg PO TID [facility] Last Admin: 12/02/22 08:29 Dose: 100 mg Documented By: NIKO Enoxaparin Sodium (Enoxaparin Sodium 40 Mg/0.4 Ml Syringe) 40 mg SUBCUT Q24H [facility] Last Admin: 12/01/22 16:03 Dose: 40 mg Documented By: JANE Fluticasone Propionate (Fluticasone Propionate Nasal 16 Gm [place]) 1 spray NOSTRIL-B BID [facility] Last Admin: 12/02/22 08:21 Dose: 1 spray Documented By: NIKO Hydrocodone Bit/Homatropine Methylb (Hydrocodone/Homat 5/1.5/5 Ml 5 Ml Syrup) 10 ml PO QID [facility] Last Admin: 12/02/22 08:20 Dose: 10 ml Documented By: NIKO Levalbuterol HCl (Levalbuterol Hcl 1.25 Mg/3 Ml Vial.Neb) 1.25 mg INHALE Q3H PRN PRN Reason: sob Last Admin: 11/30/22 23:06 Dose: 1.25 mg Documented By: JIMENA Lisinopril (Lisinopril 10 Mg Tablet) 10 mg PO DAILY [facility]; Protocol Last Admin: 12/02/22 08:21 Dose: 10 mg Documented By: NIKO Loratadine (Loratadine 10 Mg Tablet) 10 mg PO DAILY [facility] Last Admin: 12/02/22 08:21 Dose: 10 mg Documented By: NIKO Methylprednisolone Sodium Succinate (Methylprednisolone Sod Succ 40 Mg/Ml Vial) 40 mg IVPUSH BID [facility] Last Admin: 12/02/22 08:20 Dose: 40 mg Documented By: NIKO Montelukast Sodium (Montelukast Sodium 10 Mg Tablet) 10 mg PO BEDTIME [facility] Last Admin: 12/01/22 20:31 Dose: 10 mg Documented By: STEPHEN Nicotine (Nicotine 21 Mg Patch.Td24) 21 mg TRANSDERMA DAILY [facility] Last Admin: 12/02/22 08:19 Dose: 21 mg Documented By: NIKO Omeprazole (Omeprazole 20 Mg Capsule.Dr) 20 mg PO BID@0630,1630 [facility] Last Admin: 12/02/22 08:21 Dose: 20 mg Documented By: NIKO Polyethylene Glycol (Polyethylene Glycol 3350 17 Gm Powd.Pack) 17 gm PO DAILY [facility] Last Admin: 12/02/22 08:19 Dose: 17 gm Documented By: NIKO Pregabalin (Pregabalin 150 Mg Capsule) 150 mg PO BID [facility] Last Admin: 12/02/22 08:21 Dose: 150 mg Documented By: NIKO Senna (Sennosides 8.6 Mg Tablet) 17.2 mg PO DAILY [facility] Last Admin: 12/02/22 08:21 Dose: 17.2 mg Documented By: NIKO Sodium Chloride (0.9 % Sodium Chloride Flush 3 Ml Syringe) 3 ml IVFLUSH QSHIFT [facility] Last Admin: 12/02/22 08:22 Dose: 3 ml Documented By: NIKO Labs 11/28/22 09:55 11/28/22 09:55 Assessment and Plan (1) Asthma with acute exacerbation: Status: Acute Plan 52-year-old male with past medical history of asthma execerbation/uri 1. acute excerebation of moderate persistent asthma d/t rhino virus,covid neg. cxr neg, continue steroid, updrafts, cough meds, wean off O2, 2. tobacco use disorder continue nicotine patch DVT prophylaxis: lovenox. ongoing hospitilisation need : acute exacerbation of moderate persistent asthma / uri viral-needs nebs,steriods iv. Time Spent With Patient Time: Total time managing care of this patient today ____ minutes. Quality Stroke Does the patient have a stroke diagnosis?: No VTE Prior VTE?: No VTE Risk Level:: Medical - moderate - high VTE Device Contraindication: N/A - Device Ordered VTE Drug Contraindication: N/A - Med Ordered
[2022-12-02] MEDS: Acetaminophen 325 MG TABLET 975 MG PO ×2 (10:48→20:03)
[2022-12-02] MEDS: Enoxaparin Sodium 40 MG/0.4 ML SYRINGE SUBCUT (17:01)
[2022-12-02] MEDS: Montelukast Sodium 10 MG TABLET PO (20:03)
[2022-12-02] MEDS: Melatonin 3 MG TABLET 6 MG PO (23:33)
[2022-12-02] MEDS: guaiFEN/Codeine SF 200/20/10ML 10 ML LIQUID 5 ML PO (23:33)
[2022-12-03 00:46] VITALS: PULSE 100; RESP 18; O2SAT 95
[2022-12-03] MEDS: levalbuterol HCL 1.25 MG/3 ML VIAL.NEB INHALE (00:46)
[2022-12-03 03:31] VITALS: BP 138/91; PULSE 100; RESP 17; TEMP 36.6; O2SAT 95
[2022-12-03] MEDS: Omeprazole 20 MG CAPSULE.DR PO (05:56)
[2022-12-03 07:44] VITALS: BP 154/99; PULSE 88; RESP 18; TEMP 36.1; O2SAT 95
[2022-12-03] MEDS: HYDROcodone/Homat 5/1.5/5 ML 5 ML SYRUP 10 ML PO (08:35)
[2022-12-03] MEDS: Nicotine 21 MG PATCH.TD24 TRANSDERMA (08:35)
[2022-12-03] MEDS: amLODIPine Besylate 5 MG TABLET PO (08:36)
[2022-12-03] MEDS: polyethylene glycoL 3350 17 GM POWD.PACK PO (08:36)
[2022-12-03] MEDS: Sennosides 8.6 MG TABLET 17.2 MG PO (08:36)
[2022-12-03] MEDS: Pregabalin 150 MG CAPSULE PO (08:36)
[2022-12-03] MEDS: Benzonatate 100 MG CAPSULE PO (08:36)
[2022-12-03] MEDS: lisinopriL 10 MG TABLET PO (08:36)
[2022-12-03] MEDS: Loratadine 10 MG TABLET PO (08:36)
[2022-12-03] MEDS: Albuterol/Iprat 2.5/0.5MG 3 ML AMPUL.NEB INHALE (08:41)
[2022-12-03] MEDS: Fluticasone Propionate Nasal 16 GM SPRAY 1 SPRAY NOSTRIL-B (08:41)
[2022-12-03 08:42] VITALS: PULSE 103; RESP 18; O2SAT 95
--- NOTE | 2022-12-03 10:17 | PM.DS ---
DS: Providers Provider Date of Service: 12/03/22 Date of admission: 11/28/22 15:01 Primary care physician: Mirtha Lunsford MD DS: Diagnosis Discharge Diagnosis (1) Asthma with acute exacerbation: Status: Acute DS: Summary Hospital Course Hospital Course: Chief Complaint: asthma excerebation,possible uri,tachycardia 52 old male presents emergency department for evaluation of shortness of breath,aggressive coughing ,feels tight /sob which is more during cough and deep breathing . Cough is productive at times with yellow phlegm. In addition patient says he has been area and scratchy feeling in throat. Positive home nebulizers without benefit . States that this does feel consistent with his prior episodes of asthma exacerbation. Denies any known sick contacts or travel. Denies fevers, chills, headache, neck pain, abdominal pain, nausea, vomiting, lower extremity pain, recent surgery, or prolonged immobilization. patient was given -nebs steriods in ed -sob minimum improvement ,has aggaressive cough ,uri like symptoms-ed requested admission for asthma excerebation. Lab imaging ekg reviewed: wbc: 12.5 bmp fine . ekg is sinus tachycardia Hospital course: patient was hospitalized for management of acute exacerbation of asthma precipitated by rhino virus. His management consisted of IV steroid, bronchodilators by nebulizer and over the course of hospitalization has improved he was on oxygen and presently does not need oxygen. His oxygen saturation is 95% room in and upon ambulation. Plan is to dischargen him home to continue use of home inhalers in addition to steroid for 3 more days, prednisone 40 mg daily for 3 days. his lungs are clear, and he is breathing easy. of note, his blood pressure has been high with systolic blood pressures in the foot 100 and 50s. This has been a trend in the past, I have initiated Norvasc 5 mg daily and should follow up with primary care physician for further medication adjustment and BP check final diagnoses Acute exacerbation of asthma rhino virus hypertension, previously not treated Time Spent with Patient Time attestation: Total time managing care of this patient today ____ minutes. Discharge coordination time: Greater than 30 minutes Quality: Safe Use of Opioids Does Pt have an Active Cancer Diagnosis on the Problem List?: No Quality: Stroke Does the patient have a stroke diagnosis?: No Physical Exam Vital Signs: Vital Signs: Last Vital Signs Temp 96.9 F 12/03/22 07:44 Pulse 103 H 12/03/22 08:42 Resp 18 12/03/22 08:42 BP 154/99 H 12/03/22 07:44 Pulse Ox 95 12/03/22 07:44 O2 Del Method Nasal Cannula 12/03/22 07:44 O2 Flow Rate 2 12/03/22 07:44 BMI result Body Mass Index 35.3 Const: Other: General: AO X 3, no acute distress Resp: clear, no accessory muscle use CVS: S1,S2,RRR GI: +BS, NT, no distention Skin: No rash Neuro: motor grossly intact Psych: appropriate affect Discharge Plan Discharge Anticipated Discharge Date/Time: 12/03/22 10:12 Patient Disposition: Home, Self-Care Discharge Diagnosis: Acute asthma, rhino virus Referrals: Mirtha Lunsford MD [Primary Care Provider] - 1 Week Discharge Medications: New prednisone 20 mg tablet 40 mg PO DAILY Qty: 6 0RF amlodipine 5 mg Tablet 5 mg PO DAILY Qty: 30 0RF Protocol: Hold for SBP< HOLD for SBP < : 90 Continued Xolair 150 mg recon soln 225 mg subcut Q2W 28 Days Qty: 3 12RF Rx Instructions: requires multiple injection sites; do not exceed 150 mg per injection site; NEXT DOSE: 11/30/22 fluticasone propionate [Flonase Allergy Relief] 50 mcg/actuation spray,suspension 1 spray intranasal BID 30 Days Qty: 16 6RF Rx Instructions: administer into each nostril pregabalin [Lyrica] 150 mg Capsule 150 mg PO BID Rx Instructions: CANNOT TAKE WITH TRAMADOL montelukast 10 mg tablet 1 tab PO BEDTIME loratadine 10 mg tablet 1 tab PO DAILY acetaminophen [Tylenol] 325 mg tablet 650 mg PO Q6H PRN (Reason: pain) Qty: 30 0RF albuterol sulfate 90 mcg/actuation HFA aerosol inhaler 2 puff inhalation QID PRN (Reason: shortness of breath or wheezing) Qty: 6.7 0RF tramadol 50 mg tablet 50 mg PO BID PRN (Reason: severe pain (scale score 7-10)) Qty: 5 0RF Rx Instructions: CANNOT TAKE WITH PREGABLIN cyclobenzaprine 10 mg tablet 10 mg PO BEDTIME PRN (Reason: muscle pain) nicotine 21 mg/24 hr Patch 24 Hour 1 patch TRANSDERMAL DAILY Combivent Respimat 20-100 mcg/actuation mist 1 puff inhalation BID lisinopril 10 mg tablet 10 mg PO DAILY fluticasone propion-salmeterol [Advair HFA] 115-21 mcg/actuation HFA aerosol inhaler 2 puff inhalation Q12H 30 Days Qty: 1 6RF Discharge Orders: Discharge Order (Routine); Ordered 12/03/22 Ordered By: Woody Cruz Diet: Advance to usual diet Activity on Discharge: As tolerated Stand Alone Forms: Patient Portal Discharge page Care Plan Goals: full recovery from asthma and rhino virus Health Concerns: asthma exacerbation rhino virus Plan of Treatment: take prednisone as directed and continue using your usual inhalers, follow-up with your primary care doctor within a week to 10 days, call and make the appointment. Assessment: See above
--- NOTE | 2022-12-03 10:52 | MHC.CM.PN ---
Patient has been discharged to home self care. He arranged for transport home.
== END 2022-12-03 10:42 | disposition home or self-care (01) | DRG 141 ==
LOC: HO.ED 09:33 → HO.EDOVER 15:19 → HO.S3 15:35
PROVIDERS: Nurse Practitioner Family; Admitting Provider Internal Medicine; Emergency Provider Emergency Medicine; PCP Family Medicine; Visit Provider Internal Medicine
DX: J45.41 Moderate persistent asthma with (acute) exacerbation (principal); B97.89 Other viral agents as the cause of diseases classified elsewhere; F17.210 Nicotine dependence, cigarettes, uncomplicated; I10 Essential (primary) hypertension; Z20.822 Contact with and (suspected) exposure to COVID-19; Z90.5 Acquired absence of kidney; Z91.041 Radiographic dye allergy status; Z71.6 Tobacco abuse counseling; Z79.51 Long term (current) use of inhaled steroids; Z79.899 Other long term (current) drug therapy
CPT/HCPCS: 36415; 71046; 80053; 82803; 83735; 84484; 85025; 87633; 87635; 93005; 94640; 99285; J1650; J2920; J3475

== ENCOUNTER → 2022-11-28 15:01 | Outpatient (BNV) | payer MEDICAID, SELFPAY | PROVIDERS: Admitting Provider Internal Medicine; Emergency Provider Emergency Medicine; PCP Family Medicine; Visit Provider Internal Medicine | DX: J45.901 Unspecified asthma with (acute) exacerbation (principal) | CPT/HCPCS: 99222; 99232; 99233 ==

== ENCOUNTER 2022-12-08 08:51 | Outpatient (AMB) | payer MEDICAID, SELFPAY ==
--- NOTE | 2022-12-08 08:53 | MHC.OFFVIS ---
Intake Vital Signs 12/08/22 08:55 Height 5 ft 6 in Weight 216 lb 0.848 oz BMI 34.9 BP 112/62 Blood Pressure Location Lt brachial Position Sitting Pulse 114 H Pulse Source Doppler Pulse Oximetry (%) 99 Oxygen Delivery Method Room Air Intake Visit Reasons: asthma exacerbation Allergies Iodinated Contrast Media Allergy (Severe, Verified 12/08/22 08:56) Unknown ibuprofen [From MOTRIN] Allergy (Unknown, Verified 12/08/22 08:56) KIDNEY ISSUES mushroom Adverse Reaction (Mild, Verified 12/08/22 08:56) VOMITING amlodipine Adverse Reaction (Unknown, Verified 12/08/22 08:56) Swelling HPI asthma exacerbation HPI Details 52-year-old gentleman, active 20+ pack-year smoker, followed for allergic asthma asthma/COPD overlap syndrome.? At the last office visit he has been hospitalized for rhinovirus induced asthma exacerbation. Now his at baseline. He continues on Xolair, Advair, and albuterol MDI/Combivent. 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 Arthritis Surgical History History of unilateral nephrectomy H/O neck surgery Previous back surgery H/O kidney removal Family History Mother Hypertension Asthma Father Medical history unknown Social History Household Members: None Housing: Apartment Do you presently have visiting nurse or other home services: No Alcohol intake: current Alcohol intake frequency: holidays/special occasions only Alcohol type: beer Patient Tobacco Use Status: Current everyday Tobacco user Tobacco use type: Cigarette Cigarette Packs Per Day: 0 Cigarettes Per Day: 4 Years Smoked: 20 years e-Cigarette/Vaping Use: Former Use Second Hand Smoke Exposure: No service: No Current occupational status: employed [employer] Const Denies daytime sleepiness, Denies excessive sweating, Denies fatigue, Denies fever(s), Denies lethargy, Denies malaise, Denies night sweats, Denies snoring and Denies weight loss Eyes Denies blurry vision and Denies itchy eyes ENT Denies nasal congestion, Denies post nasal drip, Denies sinus pain, Denies sinus pressure and Denies other ( Thrush) Card Denies chest pain, Denies pedal edema, Denies dyspnea, Denies orthopnea and Denies paroxysmal nocturnal dyspnea Resp Denies cough, Denies hemoptysis, Denies excessive phlegm production, Denies dyspnea, Denies snoring and Denies wheezing GI Denies abdominal pain and Denies heartburn Musc Denies myalgias, Denies arthralgias and Denies joint swelling Skin/Breast Denies rash Neuro Denies memory loss and Denies seizure-like activity Psych Denies abnormal sleep pattern, Denies anxiety and Denies memory loss Endo Denies excessive sweating, Denies fatigue and Denies heat intolerance Paul/Lymph Denies easy bruising Aller/Immun Denies itchy eyes, Denies seasonal rhinorrhea and Denies wheezing Physical Exam Vital Signs: Last Vital Signs Pulse 114 H 12/08/22 08:55 BP 112/62 12/08/22 08:55 Pulse Ox 99 12/08/22 08:55 Oxygen Delivery Method Room Air 12/08/22 08:55 BMI result Body Mass Index 34.9 Const General: no acute distress and alert Nutritional Appearance: not obese Orientation/consciousness: Other orientation findings ( oriented) HEENT Head: Yes atraumatic Eyes General: appearance normal, both eyes and all related structures Sclerae: sclerae normal EOM: EOMs intact bilaterally Neck Neck: Yes supple Lymphatic: no lymphadenopathy noted Resp Effort & Inspection: normal respiratory effort and no use of accessory muscles Auscultation: clear to auscultation bilaterally Cardio Rate: regular rate Rhythm: regular rhythm Heart sounds: no gallops, no murmurs and no rubs Skin General skin exam: other ( warm) Extrem General: No clubbing, No cyanosis and No edema Assessment & Plan Assessment & Plan (1) Asthma: Code(s): J45.909 - Unspecified asthma, uncomplicated Plan: Well controlled current regimen of Xolair, Advair, and albuterol MDI/Combivent. Continue current regimen. (2) Environmental allergies: Code(s): Z91.09 - Other allergy status, other than to drugs and biological substances Plan: Well controlled on Xolair. Continue current regimen. Coding Level of Care Code Est Pt Level 4 (47641) Diagnoses Asthma J45.909 Environmental allergies Z91.09
[2022-12-08 08:55] VITALS: BP 112/62; PULSE 114; O2SAT 99; BMI 34.9
== END 2022-12-08 09:18 | disposition home or self-care (01) ==
PROVIDERS: Visit Provider Internal Medicine Pulmonary Disease
DX: J45.909 Unspecified asthma, uncomplicated (principal); Z91.09 Other allergy status, other than to drugs and biological substances
CPT/HCPCS: 99214

== ENCOUNTER → 2022-12-08 08:51 | Outpatient (BNVA) | payer MEDICAID, SELFPAY | PROVIDERS: Visit Provider Internal Medicine Pulmonary Disease | DX: J45.909 Unspecified asthma, uncomplicated (principal); Z91.09 Other allergy status, other than to drugs and biological substances | CPT/HCPCS: 99212 ==

== ENCOUNTER 2022-12-09 07:38 | Outpatient (REF) | payer MEDICAID, SELFPAY | END 2022-12-09 07:39 | disposition home or self-care (01) | LOC: HO.MDS 07:38 | PROVIDERS: Visit Provider Internal Medicine Pulmonary Disease | DX: J45.50 Severe persistent asthma, uncomplicated (principal) | CPT/HCPCS: 96372; J2357 ==

== ENCOUNTER 2022-12-23 07:47 | Outpatient (REF) | payer MEDICAID, SELFPAY | END 2022-12-23 07:48 | disposition home or self-care (01) | LOC: HO.MDS 07:47 | PROVIDERS: Visit Provider Internal Medicine Pulmonary Disease | DX: J45.50 Severe persistent asthma, uncomplicated (principal) | CPT/HCPCS: 96372; J2357 ==

== ENCOUNTER 2022-12-30 08:48 | Outpatient (AMB) | payer MEDICAID, SELFPAY ==
--- NOTE | 2022-12-30 08:53 | MHC.OFFVIS ---
Intake Vital Signs 12/30/22 08:54 Height 5 ft 6 in Weight 217 lb 2.485 oz BMI 35.0 BP 118/72 Blood Pressure Location Lt brachial Position Sitting Pulse 110 H Pulse Source Doppler Pulse Oximetry (%) 96 Oxygen Delivery Method Room Air Intake Visit Reasons: Asthma Allergies Iodinated Contrast Media Allergy (Severe, Verified 12/30/22 08:59) Unknown ibuprofen [From MOTRIN] Allergy (Unknown, Verified 12/30/22 08:59) KIDNEY ISSUES mushroom Adverse Reaction (Mild, Verified 12/30/22 08:59) VOMITING amlodipine Adverse Reaction (Unknown, Verified 12/30/22 08:59) Swelling HPI Asthma HPI Details 52-year-old gentleman, active 20+ pack-year smoker, followed for allergic asthma asthma/COPD overlap syndrome.?He continues on Xolair, Advair, and albuterol MDI/Combivent with good control of his underlying asthma symptoms. Over the last few weeks he developed infection bronchitis symptomatic with cough productive of greenish sputum. 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 Arthritis Surgical History (Updated 12/11/22 @ 00:02 by Background Daemon) History of unilateral nephrectomy H/O neck surgery Previous back surgery H/O kidney removal Family History Mother Hypertension Asthma Father Medical history unknown Social History Household Members: None Housing: Apartment Do you presently have visiting nurse or other home services: No Alcohol intake: current Alcohol intake frequency: holidays/special occasions only Alcohol type: beer Patient Tobacco Use Status: Current everyday Tobacco user Tobacco use type: Cigarette Cigarette Packs Per Day: 0 Cigarettes Per Day: 4 Years Smoked: 20 years e-Cigarette/Vaping Use: Former Use Second Hand Smoke Exposure: No service: No Current occupational status: employed [employer] Const Denies daytime sleepiness, Denies excessive sweating, Denies fatigue, Denies fever(s), Denies lethargy, Denies malaise, Denies night sweats, Denies snoring and Denies weight loss Eyes Denies blurry vision and Denies itchy eyes ENT Denies nasal congestion, Denies post nasal drip, Denies sinus pain, Denies sinus pressure and Denies other ( Thrush) Card Denies chest pain, Denies pedal edema, Denies dyspnea, Denies orthopnea and Denies paroxysmal nocturnal dyspnea Resp Reports cough, Denies hemoptysis, Reports excessive phlegm production, Denies dyspnea, Denies snoring and Denies wheezing GI Denies abdominal pain and Denies heartburn Musc Denies myalgias, Denies arthralgias and Denies joint swelling Skin/Breast Denies rash Neuro Denies memory loss and Denies seizure-like activity Psych Denies abnormal sleep pattern, Denies anxiety and Denies memory loss Endo Denies excessive sweating, Denies fatigue and Denies heat intolerance Palu/Lymph Denies easy bruising Aller/Immun Denies itchy eyes, Denies seasonal rhinorrhea and Denies wheezing Physical Exam Vital Signs: Last Vital Signs Pulse 110 H 12/30/22 08:54 BP 118/72 12/30/22 08:54 Pulse Ox 96 12/30/22 08:54 Oxygen Delivery Method Room Air 12/30/22 08:54 BMI result Body Mass Index 35.0 Const General: no acute distress and alert Nutritional Appearance: not obese Orientation/consciousness: Other orientation findings ( oriented) HEENT Head: Yes atraumatic Eyes General: appearance normal, both eyes and all related structures Sclerae: sclerae normal EOM: EOMs intact bilaterally Neck Neck: Yes supple Lymphatic: no lymphadenopathy noted Resp Effort & Inspection: normal respiratory effort and no use of accessory muscles Auscultation: clear to auscultation bilaterally Cardio Rate: regular rate Rhythm: regular rhythm Heart sounds: no gallops, no murmurs and no rubs Skin General skin exam: other ( warm) Extrem General: No clubbing, No cyanosis and No edema Assessment & Plan Assessment & Plan (1) Asthma: Code(s): J45.909 - Unspecified asthma, uncomplicated Plan: Well controlled on current regimen of Xolair, Combivent, Advair, albuterol MDI. Continue current regimen. Now with an acute infection bronchitis, will treat with a course of Levaquin. (2) Environmental allergies: Code(s): Z91.09 - Other allergy status, other than to drugs and biological substances Plan: Well controlled on Xolair. Continue current regimen. Coding Level of Care Code Est Pt Level 4 (53495) Diagnoses Asthma J45.909 Environmental allergies Z91.09
[2022-12-30 08:54] VITALS: BP 118/72; PULSE 110; O2SAT 96; BMI 35.0
== END 2022-12-30 09:20 | disposition home or self-care (01) ==
PROVIDERS: PCP Family Medicine; Visit Provider Internal Medicine Pulmonary Disease
DX: J45.909 Unspecified asthma, uncomplicated (principal); Z91.09 Other allergy status, other than to drugs and biological substances
CPT/HCPCS: 99214

== ENCOUNTER → 2022-12-30 08:48 | Outpatient (BNVA) | payer MEDICAID, SELFPAY | PROVIDERS: PCP Family Medicine; Visit Provider Internal Medicine Pulmonary Disease | DX: J45.909 Unspecified asthma, uncomplicated (principal); Z91.09 Other allergy status, other than to drugs and biological substances | CPT/HCPCS: 99212 ==

== ENCOUNTER 2023-01-06 07:42 | Outpatient (REF) | payer MEDICAID, SELFPAY | END 2023-01-06 07:43 | disposition home or self-care (01) | LOC: HO.MDS 07:42 | PROVIDERS: Visit Provider Internal Medicine Pulmonary Disease | DX: J45.50 Severe persistent asthma, uncomplicated (principal) | CPT/HCPCS: 96372; J2357 ==

== ENCOUNTER 2023-01-20 08:01 | Outpatient (REF) | payer MEDICAID, SELFPAY | END 2023-01-20 08:02 | disposition home or self-care (01) | LOC: HO.MDS 08:01 | PROVIDERS: Visit Provider Internal Medicine Pulmonary Disease | DX: J45.50 Severe persistent asthma, uncomplicated (principal) | CPT/HCPCS: 96372; J2357 ==

== ENCOUNTER 2023-02-02 10:00 | Outpatient (RCR) | payer MEDICAID, SELFPAY | END 2023-05-06 11:41 | disposition home or self-care (01) | LOC: HO.PT 10:00 | PROVIDERS: PCP Family Medicine; Visit Provider Family Medicine | DX: M25.511 Pain in right shoulder (principal); M25.512 Pain in left shoulder | CPT/HCPCS: 97110; 97140; 97161 ==

== ENCOUNTER 2023-02-03 11:14 | Outpatient (REF) | payer MEDICAID, SELFPAY | END 2023-02-03 11:15 | disposition home or self-care (01) | LOC: HO.MDS 11:14 | PROVIDERS: Visit Provider Internal Medicine Pulmonary Disease | DX: J45.50 Severe persistent asthma, uncomplicated (principal) | CPT/HCPCS: 96372; J2357 ==

== ENCOUNTER 2023-02-24 10:15 | Outpatient (REF) | payer MEDICAID, SELFPAY | END 2023-02-24 10:16 | disposition home or self-care (01) | LOC: HO.MDS 10:15 | PROVIDERS: Visit Provider Internal Medicine Pulmonary Disease | DX: J45.50 Severe persistent asthma, uncomplicated (principal) | CPT/HCPCS: 96372; J2357 ==

== ENCOUNTER 2023-03-10 08:05 | Outpatient (REF) | payer MEDICAID, SELFPAY | END 2023-03-10 08:06 | disposition home or self-care (01) | LOC: HO.MDS 08:05 | PROVIDERS: Visit Provider Internal Medicine Pulmonary Disease | DX: J45.50 Severe persistent asthma, uncomplicated (principal) | CPT/HCPCS: 96372; J2357 ==

== ENCOUNTER 2023-03-24 11:10 | Outpatient (REF) | payer MEDICAID, SELFPAY | END 2023-03-24 11:11 | disposition home or self-care (01) | LOC: HO.MDS 11:10 | PROVIDERS: Visit Provider Internal Medicine Pulmonary Disease | DX: J45.50 Severe persistent asthma, uncomplicated (principal) | CPT/HCPCS: 96372; J2357 ==

== ENCOUNTER 2023-03-29 14:58 | Emergency (ER) | payer MEDICAID, SELFPAY ==
--- NOTE | 2023-03-29 | ECG_ITS ---
Test Reason : CHEST PAIN Blood Pressure : / mmHG Vent. Rate : 109 BPM Atrial Rate : 109 BPM P-R Int : 142 ms QRS Dur : 078 ms QT Int : 338 ms P-R-T Axes : 065 028 046 degrees QTc Int : 455 ms Sinus tachycardia Otherwise normal ECG When compared with ECG of 28-NOV-2022 09:59, No significant change was found Referred By: Generic ED Physician Electronically Signed By:LOIDA MELARA
--- NOTE | ~2023-03-29 | XR_ITS ---
EXAMINATION: XR CHEST CLINICAL INFORMATION: Cough, difficulty breathing COMPARISON: None available. TECHNIQUE: 2 views of the chest were obtained. FINDINGS: The lungs are well-expanded and clear. Heart size and pulmonary vascularity is normal. No gross bony abnormality seen. There is ventral plate and screws im lower cervical spine for fusion XR/XR chest 2V IMPRESSION: No acute cardiopulmonary process seen.
[2023-03-29 15:17] VITALS: BP 135/89; PULSE 106; RESP 18; TEMP 36.6; O2SAT 94; BMI 34.6
--- NOTE | 2023-03-29 15:17 | ED_ITS ---
HPI - Chest Pain General Chief Complaint: Upper Respiratory Symptoms Stated Complaint: Chest Discomfort Head Pain Injury 03/25/23 Related Data Home Medications Medication Instructions Recorded Confirmed pregabalin 150 mg capsule (Lyrica) 150 mg PO BID 11/26/19 11/28/22 montelukast 10 mg tablet 1 tab PO BEDTIME 09/14/20 11/28/22 loratadine 10 mg tablet 1 tab PO DAILY 08/31/21 11/28/22 cyclobenzaprine 10 mg tablet 10 mg PO BEDTIME PRN muscle pain 11/28/22 11/28/22 ipratropium 20 mcg-albuterol 100 1 puff inhalation BID Shortness Of 11/28/22 11/28/22 mcg/actuation mist for inhalation Breath Or Wheezing (Combivent Respimat) nicotine 21 mg/24 hr daily 1 patch transdermal DAILY 11/28/22 11/28/22 transdermal patch escitalopram oxalate 5 mg tablet 5 mg PO DAILY 12/30/22 (Lexapro) lisinopril 20 mg tablet 20 mg PO QAM 12/30/22 sertraline 100 mg tablet 100 mg PO DAILY 12/30/22 Previous Rx's Medication Instructions Recorded omalizumab 150 mg subcutaneous 225 mg subcut Q2W 28 days #3 ea 12/11/20 solution (Xolair) acetaminophen 325 mg tablet 650 mg (2 x 325 mg) PO Q6H PRN 08/19/22 (Tylenol) pain #30 tabs fluticasone propionate 50 1 spray intranasal BID 30 days #16 09/23/22 mcg/actuation nasal grams spray,suspension (Flonase Allergy Relief) albuterol sulfate 90 mcg/actuation 2 puff inhalation QID PRN 09/29/22 aerosol inhaler shortness of breath or wheezing #6.7 grams tramadol 50 mg tablet 50 mg PO BID PRN severe pain 11/11/22 (scale score 7-10) #5 tabs amlodipine 5 mg tablet 5 mg PO DAILY #30 tabs 12/03/22 prednisone 20 mg tablet 40 mg (2 x 20 mg) PO DAILY #6 tabs 12/03/22 levofloxacin 750 mg tablet 750 mg PO DAILY 7 days #7 tabs 12/30/22 fluticasone propionate 115 2 puff inhalation Q12H 30 days #1 03/24/23 mcg-salmeterol 21 mcg/actuation ea HFA inhaler (Advair HFA) Allergies Allergy/AdvReac Type Severity Reaction Status Date / Time Iodinated Contrast Media Allergy Severe Unknown Verified 12/30/22 08:59 ibuprofen [From MOTRIN] Allergy Unknown KIDNEY Verified 12/30/22 08:59 ISSUES mushroom AdvReac Mild VOMITING Verified 12/30/22 08:59 amlodipine AdvReac Unknown Swelling Verified 12/30/22 08:59 [facility] Past Medical History Medical History (Updated 04/02/23 @ 17:17 by Olivia Newton NP) Asthma Asthma with exacerbation Hypertension 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 Arthritis Surgical History (Updated 12/11/22 @ 00:02 by Nikko Shaw) History of unilateral nephrectomy H/O neck surgery Previous back surgery H/O kidney removal Family History Family History Mother Hypertension Asthma Father Medical history unknown Social History Social History Household Members: None Housing: Apartment Do you presently have visiting nurse or other home services: No Alcohol intake: current Alcohol intake frequency: holidays/special occasions only Alcohol type: beer Patient Tobacco Use Status: Current everyday Tobacco user Tobacco use type: Cigarette Cigarette Packs Per Day: 0 Cigarettes Per Day: 4 Years Smoked: 20 years e-Cigarette/Vaping Use: Former Use Second Hand Smoke Exposure: No Advance Directives: No Advance Directives Information Provided: No service: No Current occupational status: employed Physical Exam 2 Vital Signs: Vital Signs: Last Vital Signs Temp 97.8 F 03/29/23 15:17 Pulse 106 H 03/29/23 15:17 Resp 18 03/29/23 15:17 BP 135/89 03/29/23 15:17 Pulse Ox 94 03/29/23 15:17 O2 Del Method Room Air 03/29/23 15:17 BMI result Body Mass Index 34.6 Course Course Course Narrative: This is a rapid medical exam. Deferred additional HPI, ROS, PE to primary provider. 53 yo male with history of solitary kidney, asthma, chronic back/neck pain here with complaints of coughing, difficulty breathing, chest tightness since last night. No fevers, chills. Also had head strike/injury 2/2 and has had headache, dizziness subsequently. No LOC. No AC therapy use. Normal neuro-will hold on ct imaging Will obtain EKG, CXR, viral testing, labs VSS Medical Decision Making Lab Data 03/29/23 15:40 03/29/23 15:40 Labs: Lab Results 03/29/23 Range/Units 15:40 WBC 9.7 (4.8-10.8) X10*3/uL RBC 4.93 (4.60-5.80) X10*6/uL Hgb 15.1 (14.0-18.0) g/dl Hct 45.3 (42.0-52.0) % MCV 91.9 (80.0-98.0) fL MCH 30.6 (27.0-33.0) pg MCHC 33.3 (31.0-36.0) g/dl RDW 13.2 (11.0-16.0) % Plt Count 270 (160-400) X10*3/uL MPV 11.0 (9.4-12.4) fL Immature Gran % (Auto) 0.6 H (0.0-0.4) % Neut % (Auto) 67.0 (45-73) % Lymph % (Auto) 17.9 L (20-40) % [place] % (Auto) 9.1 (2-11) % Eos % (Auto) 4.8 H (0-4) % Baso % (Auto) 0.6 (0-2) % Lymph # (Auto) 1.7 (1.2-4.9) X10*3/uL [place] # (Auto) 0.9 (0.1-1.2) X10*3/uL Eos # (Auto) 0.5 H (0.0-0.4) X10*3/uL Baso # (Auto) 0.1 (0.0-0.2) X10*3/uL Abs Immat Gran (auto) 0.06 H (0.00-0.03) X10*3/uL Absolute Neuts (auto) 6.5 (2.0-8.3) x10*3/uL Absolute Nucleated RBC 0.000 (0.0-0.012) X10*3/uL Nucleated RBC % (auto) 0.0 (0.0-0.2) /100WBC PT 12.2 (11.1-13.3) SEC INR 1.0 (0.9-1.1) Sodium 140 (135-145) mmol/L Potassium 4.4 (3.3-5.1) mmol/L Chloride 107 (96-108) mmol/L Carbon Dioxide 25 (22-29) mmol/L Anion Gap 12 (12-20) BUN 14 (9-16) mg/dL Creatinine 1.12 (0.5-1.4) mg/dL Estim Creat Clear Calc 81.3 Estimated GFR > 60 Random Glucose 91 (60-115) mg/dL Calcium 9.5 (8.4-10.2) mg/dL Total Bilirubin 0.2 (0.0-1.0) mg/dL Direct Bilirubin < 0.2 (0.0-0.5) mg/dL AST 25 (5-37) U/L ALT 27 (0-40) U/L Alkaline Phosphatase 118 H (39-117) U/L Troponin I High Sens 13.3 (<3.5-35.0) ng/L Total Protein 7.4 (6.5-8.0) g/dL Albumin 4.0 (3.5-5.0) g/dL COVID-19 ([facility]) Negative (Negative) COVID-19 Clin Com See Note Influenza Type A ([facility]) Negative (Negative) Influenza Type B ([facility]O) Negative (Negative) Influenza A & B Note See Note Discharge Plan Discharge Clinical Impression: Viral infection Patient Disposition: Left W/O Completing Treatment Prescriptions: No Action Xolair 150 mg recon soln 225 mg subcut Q2W 28 Days Qty: 3 12RF Rx Instructions: requires multiple injection sites; do not exceed 150 mg per injection site; NEXT DOSE: 11/30/22 fluticasone propionate [Flonase Allergy Relief] 50 mcg/actuation spray,suspension 1 spray intranasal BID 30 Days Qty: 16 6RF Rx Instructions: administer into each nostril fluticasone propion-salmeterol [Advair HFA] 115-21 mcg/actuation HFA aerosol inhaler 2 puff inhalation Q12H 30 Days Qty: 1 6RF pregabalin [Lyrica] 150 mg Capsule 150 mg PO BID Rx Instructions: CANNOT TAKE WITH TRAMADOL montelukast 10 mg tablet 1 tab PO BEDTIME loratadine 10 mg tablet 1 tab PO DAILY acetaminophen [Tylenol] 325 mg tablet 650 mg PO Q6H PRN (Reason: pain) Qty: 30 0RF albuterol sulfate 90 mcg/actuation HFA aerosol inhaler 2 puff inhalation QID PRN (Reason: shortness of breath or wheezing) Qty: 6.7 0RF tramadol 50 mg tablet 50 mg PO BID PRN (Reason: severe pain (scale score 7-10)) Qty: 5 0RF Rx Instructions: CANNOT TAKE WITH PREGABLIN cyclobenzaprine 10 mg tablet 10 mg PO BEDTIME PRN (Reason: muscle pain) nicotine 21 mg/24 hr Patch 24 Hour 1 patch TRANSDERMAL DAILY Combivent Respimat 20-100 mcg/actuation mist 1 puff inhalation BID prednisone 20 mg tablet 40 mg PO DAILY Qty: 6 0RF amlodipine 5 mg Tablet 5 mg PO DAILY Qty: 30 0RF Protocol: Hold for SBP< HOLD for SBP < : 90 lisinopril 20 mg tablet 20 mg PO QAM sertraline 100 mg tablet 100 mg PO DAILY escitalopram oxalate [Lexapro] 5 mg tablet 5 mg PO DAILY levofloxacin 750 mg tablet 750 mg PO DAILY 7 Days Qty: 7 0RF Discharge Date/Time: 03/29/23 19:58
[2023-03-29 15:44] LABS: MANUAL DIFF FLAG NO
[2023-03-29 15:45] LABS: Basophils Absolute Auto 0.1 X10*3/uL (0.0-0.2); Basophils Percent Auto 0.6 % (0-2); Eosinophils Absolute Auto 0.5 X10*3/uL (0.0-0.4); Eosinophils Percent Auto 4.8 % (0-4); Hematocrit 45.3 % (42.0-52.0); Hemoglobin 15.1 g/dl (14.0-18.0); Imm Gran Abs Auto 0.06 X10*3/uL (0.00-0.03); Imm Gran Pct Auto 0.6 % (0.0-0.4); Lymphocytes Absolute Auto 1.7 X10*3/uL (1.2-4.9); Lymphocytes Percent Auto 17.9 % (20-40); Mean Corpuscular HGB Conc 33.3 g/dl (31.0-36.0); Mean Corpuscular Hemoglobin 30.6 pg (27.0-33.0); Mean Corpuscular Volume 91.9 fL (80.0-98.0); Monocytes Absolute Auto 0.9 X10*3/uL (0.1-1.2); Monocytes Percent Auto 9.1 % (2-11); Neutrophils Absolute Auto 6.5 x10*3/uL (2.0-8.3); Platelet Count 270 X10*3/uL (160-400); Red Blood Count 4.93 X10*6/uL (4.60-5.80); Red Cell Distribution Width 13.2 % (11.0-16.0); White Blood Count 9.7 X10*3/uL (4.8-10.8)
[2023-03-29 15:53] LABS: Prothrombin Time 12.2 SEC (11.1-13.3)
[2023-03-29 16:02] LABS: Alanine Aminotransferase 27 U/L (0-40); Alkaline Phosphatase 118 U/L (39-117); Anion Gap 12 (12-20); Aspartate Amino Transferase 25 U/L (5-37); Bilirubin Direct < 0.2 mg/dL (0.0-0.5); Bilirubin Total 0.2 mg/dL (0.0-1.0); Blood Urea Nitrogen 14 mg/dL (9-16); Calcium 9.5 mg/dL (8.4-10.2); Carbon Dioxide 25 mmol/L (22-29); Chloride 107 mmol/L (96-108); Creatinine Clr Calc Pharmacy 81.3; Estimated Glomerular Filt Rate > 60; Glucose Random 91 mg/dL (60-115); Potassium 4.4 mmol/L (3.3-5.1); Sodium 140 mmol/L (135-145); Total Protein 7.4 g/dL (6.5-8.0)
[2023-03-29 16:08] LABS: COVID-19 Test Negative (Negative); IDNOW Serial# 58CA691E; IDNOW Serial# 6674DD1D; Influenza A Negative (Negative); Influenza B2 Negative (Negative); Troponin-I High Sensitivity 13.3 ng/L (<3.5-35.0)
== END 2023-03-29 19:58 | disposition left against medical advice (07) ==
LOC: HO.ED 19:53
PROVIDERS: Nurse Practitioner Family; Emergency Provider Emergency Medicine; PCP Family Medicine
DX: B34.9 Viral infection, unspecified (principal); R07.9 Chest pain, unspecified; I10 Essential (primary) hypertension; J45.909 Unspecified asthma, uncomplicated; R05.9 Cough, unspecified; Z11.52 Encounter for screening for COVID-19
CPT/HCPCS: 36415; 71046; 80048; 80076; 84484; 85025; 85610; 87502; 87635; 93005; 99283

== ENCOUNTER → 2023-03-29 15:07 | Outpatient (BNV) | payer MEDICAID, SELFPAY | PROVIDERS: Emergency Provider Emergency Medicine; PCP Family Medicine; Visit Provider Internal Medicine | DX: R00.0 Tachycardia, unspecified (principal) | CPT/HCPCS: 93010 ==

== ENCOUNTER 2023-04-07 07:59 | Outpatient (REF) | payer MEDICAID, SELFPAY | END 2023-04-07 08:00 | disposition home or self-care (01) | LOC: HO.MDS 07:59 | PROVIDERS: Visit Provider Internal Medicine Pulmonary Disease | DX: J45.50 Severe persistent asthma, uncomplicated (principal) | CPT/HCPCS: 96372; J2357 ==

== ENCOUNTER 2023-04-21 09:09 | Outpatient (REF) | payer MEDICAID, SELFPAY ==
[2023-04-21 09:18] VITALS: BP 127/87; PULSE 86; RESP 18; TEMP 36.6; BMI 34.5
== END 2023-04-21 09:10 | disposition home or self-care (01) ==
LOC: HO.MDS 09:09
PROVIDERS: Visit Provider Internal Medicine Pulmonary Disease
DX: J45.50 Severe persistent asthma, uncomplicated (principal)
CPT/HCPCS: 96372; J2357

== ENCOUNTER 2023-05-05 07:37 | Outpatient (REF) | payer MEDICAID, SELFPAY ==
[2023-05-05 07:37] VITALS: BP 146/96; PULSE 92; RESP 20; TEMP 36; O2SAT 97
== END 2023-05-05 07:38 | disposition home or self-care (01) ==
LOC: HO.MDS 07:37
PROVIDERS: Visit Provider Internal Medicine Pulmonary Disease
DX: J45.50 Severe persistent asthma, uncomplicated (principal)
CPT/HCPCS: 96372; J2357

== ENCOUNTER 2023-05-06 07:59 | Emergency (ER) | payer MEDICAID, SELFPAY ==
[2023-05-06] VITALS (7 sets, daily range): BP systolic 136–164; BP diastolic 83–106; PULSE 82–102; RESP 16–22; TEMP 36–36.6; O2SAT 94–98; BMI 40.3
--- NOTE | 2023-05-06 | ECG_ITS ---
Test Reason : chest pain w/ coughing Blood Pressure : / mmHG Vent. Rate : 082 BPM Atrial Rate : 082 BPM P-R Int : 150 ms QRS Dur : 082 ms QT Int : 380 ms P-R-T Axes : 058 029 038 degrees QTc Int : 443 ms Normal sinus rhythm Normal ECG When compared with ECG of 29-MAR-2023 15:07, No significant change was found Referred By: Lilian Mart Electronically Signed By:JULEE AVENDAÑO MD
--- NOTE | ~2023-05-06 | XR_ITS ---
EXAMINATION: XR CHEST CLINICAL INFORMATION: Chest pain COMPARISON: 09/29/2022 and 03/29/2023 TECHNIQUE: Frontal view of the chest was obtained. FINDINGS: Lungs are well expanded and clear. No evidence of consolidation, pleural effusion or pneumothorax. There appears to be chronic thickening of the bronchial avitia. Query if there is any history of cigarette smoking, bronchitis or asthma. Cardiac silhouette is normal in size. The pulmonary vascular pattern is normal. No acute osseous abnormality. Anterior fusion hardware the cervical spine is partially included in the [id number]. XR/XR chest 1V IMPRESSION: * No acute cardiopulmonary abnormality. * The observation of chronic diffuse thickening of bronchial avitia requires clinical correlation.
--- NOTE | 2023-05-06 08:40 | PC.NURSE ---
Pt coming from home reports coughing with phlegm (clear) X2 days, pt reports coughing so hard he feels like he is going to pass out. Pt reports he feels like he has mucus stuck in his throat that he cannot get out. Pt also reports sharp chest pains with coughing 8/10, along with SOB during those episodes. Pt is alert and oriented, breathing even and unlabored, skin WNL. Pt denies any fevers, N/V/D, recent illnesses. Pt resting in bed comfortably, intermittent cough noted.
--- NOTE | 2023-05-06 09:42 | ED_ITS ---
HPI - General Adult General Chief complaint: General Medical Stated complaint: choking in sleep, waking up dizzy, rash on chest Time Seen by Provider: 05/06/23 08:24 History of Present Illness HPI narrative: Patient is a 53-year-old male presents today with having coughing congestion upper respiratory symptoms also chest tightness that has been ongoing for the last 3-4 days. He feels like he has some liquid in the back of his throat when he coughs. Patient feels that he needs to cough to get it up and feels better. He is vaccinated for COVID. He is also complaining of some chest pain that is mid chest. Patient denies any diaphoresis. There is a nonspecific rash to his chest. He has been itching for 2 days. Positive history of smoking. Positive history of borderline hypertension. No history of high cholesterol no history of VT. Patient is from home. No diaphoresis. No abdominal pain or nausea no vomiting. No diarrhea. No stress test done in the past. Related Data Home Medications Medication Instructions Recorded Confirmed pregabalin 150 mg capsule (Lyrica) 150 mg PO BID 11/26/19 11/28/22 montelukast 10 mg tablet 1 tab PO BEDTIME 09/14/20 11/28/22 loratadine 10 mg tablet 1 tab PO DAILY 08/31/21 11/28/22 cyclobenzaprine 10 mg tablet 10 mg PO BEDTIME PRN muscle pain 11/28/22 11/28/22 ipratropium 20 mcg-albuterol 100 1 puff inhalation BID Shortness Of 11/28/22 11/28/22 mcg/actuation mist for inhalation Breath Or Wheezing (Combivent Respimat) nicotine 21 mg/24 hr daily 1 patch transdermal DAILY 11/28/22 11/28/22 transdermal patch escitalopram oxalate 5 mg tablet 5 mg PO DAILY 12/30/22 (Lexapro) lisinopril 20 mg tablet 20 mg PO QAM 12/30/22 sertraline 100 mg tablet 100 mg PO DAILY 12/30/22 Previous Rx's Medication Instructions Recorded omalizumab 150 mg subcutaneous 225 mg subcut Q2W 28 days #3 ea 12/11/20 solution (Xolair) acetaminophen 325 mg tablet 650 mg (2 x 325 mg) PO Q6H PRN 08/19/22 (Tylenol) pain #30 tabs fluticasone propionate 50 1 spray intranasal BID 30 days #16 09/23/22 mcg/actuation nasal grams spray,suspension (Flonase Allergy Relief) albuterol sulfate 90 mcg/actuation 2 puff inhalation QID PRN 09/29/22 aerosol inhaler shortness of breath or wheezing #6.7 grams tramadol 50 mg tablet 50 mg PO BID PRN severe pain 11/11/22 (scale score 7-10) #5 tabs amlodipine 5 mg tablet 5 mg PO DAILY #30 tabs 12/03/22 prednisone 20 mg tablet 40 mg (2 x 20 mg) PO DAILY #6 tabs 12/03/22 levofloxacin 750 mg tablet 750 mg PO DAILY 7 days #7 tabs 12/30/22 fluticasone propionate 115 2 puff inhalation Q12H 30 days #1 03/24/23 mcg-salmeterol 21 mcg/actuation ea HFA inhaler (Advair HFA) albuterol sulfate 90 mcg/actuation 2 inh inhalation Q6H PRN shortness 05/06/23 breath activated powder inhaler of breath or wheezing #1 ea doxycycline hyclate 100 mg capsule 100 mg PO BID cough 7 days #14 caps 05/06/23 prednisone 20 mg tablet 40 mg (2 x 20 mg) PO DAILY #10 tabs 05/06/23 Allergies Allergy/AdvReac Type Severity Reaction Status Date / Time Iodinated Contrast Media Allergy Severe Unknown Verified 05/06/23 08:05 ibuprofen [From MOTRIN] Allergy Unknown KIDNEY Verified 05/06/23 08:05 ISSUES mushroom AdvReac Mild VOMITING Verified 05/06/23 08:05 amlodipine AdvReac Unknown Swelling Verified 05/06/23 08:05 Review of Systems 2 Review of Systems: Positive shortness of breath Yes all other systems are reviewed and are negative PMFSH Past Medical History Attestation statement: The following information was validated with the patient. Medical History Asthma Asthma with exacerbation Hypertension 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 Arthritis Surgical History History of unilateral nephrectomy H/O neck surgery Previous back surgery H/O kidney removal Family History Family History Mother Hypertension Asthma Father Medical history unknown Social History Social History Household Members: None Housing: Apartment Do you presently have visiting nurse or other home services: No Alcohol intake: current Alcohol intake frequency: holidays/special occasions only Alcohol type: beer Patient Tobacco Use Status: Current everyday Tobacco user Tobacco use type: Cigarette Cigarette Packs Per Day: 0 Cigarettes Per Day: 4 Years Smoked: 20 years Smoked in Last 30 Days: Yes e-Cigarette/Vaping Use: Former Use Second Hand Smoke Exposure: No Use of substances other than those prescribed or required for medical reasons: No Advance Directives: No service: No Current occupational status: employed Physical Exam ED Vital Signs: Vital Signs - 24 hr 05/06/23 08:02 05/06/23 08:34 05/06/23 09:52 Temperature 96.8 F 97.6 F Pulse Rate 102 H 86 82 Respiratory Rate 18 16 22 H Blood Pressure 156/106 H 149/105 H Pulse Oximetry 98 97 Oxygen Delivery Method Room Air Room Air 05/06/23 10:23 05/06/23 11:48 05/06/23 12:48 Temperature 96.8 F Pulse Rate 88 90 90 Respiratory Rate 18 19 18 Blood Pressure 136/83 Pulse Oximetry 96 Oxygen Delivery Method Room Air BMI result Body Mass Index 40.3 Appearance: Alert. Oriented X3. No acute distress. Eyes: Pupils equal, round and reactive to light. ENT: Pharynx normal. Neck: Normal inspection. Neck supple. No lymph nodes noted. No crepitus CVS: Normal heart rate and rhythm. Pulses normal. Normal S1 and S2 Respiratory: No respiratory distress. Positive wheezing bilaterally Abdomen: Soft and nontender. No rigidity. No distention. good BS x4 Skin: Skin warm and dry. Normal skin color. Normal skin turgor. Extremities: No lower extremity edema. Neurovascular intact to all extremities. No Lacerations. No Rash Neuro: Oriented X 3. No motor deficit. No sensory deficit. Moving all extermities. No slurred speech Medications Administered Discontinued Medications Generic Name Dose Route Start Last Admin Trade Name Freq PRN Reason Stop Dose Admin Albuterol/Ipratropium 3 ml 05/06/23 12:45 05/06/23 12:48 Albuterol/Iprat 2.5/0.5mg 3 Ml Ampul.Neb INHALE 05/06/23 12:46 3 ml ONCE ONE Administration Albuterol Sulfate 2.5 mg/ 0 mg 05/06/23 09:52 05/06/23 09:57 Albuterol/Ipratropium 3 ml INHALE 05/06/23 09:53 1 dose ONCE ONE Administration Albuterol Sulfate 2.5 mg/ 0 mg 05/06/23 10:20 05/06/23 10:23 Albuterol/Ipratropium 3 ml INHALE 05/06/23 10:21 1 dose ONCE ONE Administration Sodium Chloride 1,000 mls @ 999 mls/hr 05/06/23 09:45 05/06/23 11:48 Ns IV 05/06/23 10:45 Infused .Q1H1M JUAN Infusion Methylprednisolone Sodium Succinate 125 mg 05/06/23 09:43 05/06/23 10:30 Methylprednisolone Sod Succ 125 Mg/2 Ml Vial IVPUSH 05/06/23 09:44 125 mg ONCE ONE Administration Medical Decision Making Medical Decision Making [facility] Narrative: Patient feels coughing upper respiratory symptoms. His flu COVID RSV were all negative. Chest x-ray showed no focal infiltrate by my interpretation. I reviewed radiology's reading. Question bronchitis was noted. Will start patient on doxycycline. My interpretation patient's EKG showed a sinus rhythm heart rate is 80 MD QRS QTC within normal limits there has no acute ST segment elevation in the setting of well-appearing atypical chest pain 2 sets of negative enzymes unlikely secondary to ACS. Will discharge patient home. Close follow-up on an outpatient basis Differential Diagnosis Differential Diagnoses: The differential diagnosis associated with the presentation includes Bronchitis, asthma, pneumonia Admission/Observation Consideration of admission/observation: Escalation of care including admission/observation considered Lab Data [facility] Lab Attestation statement: I reviewed the patient's lab results. 05/06/23 10:28 05/06/23 10:28 Labs: Lab Results 05/06/23 05/06/23 05/06/23 Range/Units 10:28 11:49 11:58 WBC 7.8 (4.8-10.8) X10*3/uL RBC 5.30 (4.60-5.80) X10*6/uL Hgb 16.2 (14.0-18.0) g/dl Hct 47.8 (42.0-52.0) % MCV 90.2 (80.0-98.0) fL MCH 30.6 (27.0-33.0) pg MCHC 33.9 (31.0-36.0) g/dl RDW 13.0 (11.0-16.0) % Plt Count 245 (160-400) X10*3/uL MPV 10.9 (9.4-12.4) fL Immature Gran % (Auto) 0.5 H (0.0-0.4) % Neut % (Auto) 61.2 (45-73) % Lymph % (Auto) 25.5 (20-40) % [place] % (Auto) 9.5 (2-11) % Eos % (Auto) 2.8 (0-4) % Baso % (Auto) 0.5 (0-2) % Lymph # (Auto) 2.0 (1.2-4.9) X10*3/uL [place] # (Auto) 0.7 (0.1-1.2) X10*3/uL Eos # (Auto) 0.2 (0.0-0.4) X10*3/uL Baso # (Auto) 0.0 (0.0-0.2) X10*3/uL Abs Immat Gran (auto) 0.04 H (0.00-0.03) X10*3/uL Absolute Neuts (auto) 4.8 (2.0-8.3) x10*3/uL Absolute Nucleated RBC 0.000 (0.0-0.012) X10*3/uL Nucleated RBC % (auto) 0.0 (0.0-0.2) /100WBC Sodium 139 (135-145) mmol/L Potassium 4.3 (3.3-5.1) mmol/L Chloride 105 (96-108) mmol/L Carbon Dioxide 25 (22-29) mmol/L Anion Gap 13 (12-20) BUN 13 (9-16) mg/dL Creatinine 1.00 (0.5-1.4) mg/dL Estim Creat Clear Calc 98.7 Estimated GFR > 60 Random Glucose 94 (60-115) mg/dL Calcium 10.2 D (8.4-10.2) mg/dL Troponin I High Sens 11.3 11.1 (<3.5-35.0) ng/L B-Natriuretic Peptide 36 (<100) pg/mL Urine Color Yellow Urine Appearance Clear Urine pH 7.0 (5.0-9.0) Ur Specific [place] 1.015 (1.005-1.025) Urine Protein Negative (Neg-Trace) mg/dL Urine Glucose (UA) Negative (Negative) mg/dL Urine Ketones Negative (Negative) mg/dL Urine Blood Negative (Negative) Urine Nitrite Negative (Negative) Ur Leukocyte Esterase Negative (Negative) Urine RBC 0-2 (0-2) /HPF Urine WBC 0-5 (0-5) /HPF Ur Squamous Epith Cells 0-2 (0-2) /HPF Urine Bacteria None Seen (None Seen) Hyaline Casts 0-2 (0-2) /LPF Influenza Type A (PCR) NEGATIVE (Negative) Influenza Type B (PCR) NEGATIVE (Negative) RSV RNA Qual (PCR) NEGATIVE (Negative) SARS-CoV-2 RNA (RT-PCR) NEGATIVE (Negative) Independent Interpretation I performed an independent interpretation of an: EKG (Sinus heart rate is 80 MD QRS QTC within normal limits is no acute ST segment elevation) and Plain X-Ray (Chest x-ray negative for pneumonia) Radiology Impression Discussion of test interpretation with radiology: I have reviewed the radiologist's reading. Discharge Plan Discharge Clinical Impression: Bronchitis Patient Disposition: Home, Self-Care Instructions: Chronic Bronchitis (DC) Prescriptions: New doxycycline hyclate 100 mg capsule 100 mg PO BID 7 Days Qty: 14 0RF prednisone 20 mg tablet 40 mg PO DAILY Qty: 10 0RF albuterol sulfate 90 mcg/actuation aerosol powdr breath activated 2 inh inhalation Q6H PRN (Reason: shortness of breath or wheezing) Qty: 1 0RF No Action Xolair 150 mg recon soln 225 mg subcut Q2W 28 Days Qty: 3 12RF Rx Instructions: requires multiple injection sites; do not exceed 150 mg per injection site; NEXT DOSE: 11/30/22 fluticasone propionate [Flonase Allergy Relief] 50 mcg/actuation spray,suspension 1 spray intranasal BID 30 Days Qty: 16 6RF Rx Instructions: administer into each nostril fluticasone propion-salmeterol [Advair HFA] 115-21 mcg/actuation HFA aerosol inhaler 2 puff inhalation Q12H 30 Days Qty: 1 6RF pregabalin [Lyrica] 150 mg Capsule 150 mg PO BID Rx Instructions: CANNOT TAKE WITH TRAMADOL montelukast 10 mg tablet 1 tab PO BEDTIME loratadine 10 mg tablet 1 tab PO DAILY acetaminophen [Tylenol] 325 mg tablet 650 mg PO Q6H PRN (Reason: pain) Qty: 30 0RF albuterol sulfate 90 mcg/actuation HFA aerosol inhaler 2 puff inhalation QID PRN (Reason: shortness of breath or wheezing) Qty: 6.7 0RF tramadol 50 mg tablet 50 mg PO BID PRN (Reason: severe pain (scale score 7-10)) Qty: 5 0RF Rx Instructions: CANNOT TAKE WITH PREGABLIN cyclobenzaprine 10 mg tablet 10 mg PO BEDTIME PRN (Reason: muscle pain) nicotine 21 mg/24 hr Patch 24 Hour 1 patch TRANSDERMAL DAILY Combivent Respimat 20-100 mcg/actuation mist 1 puff inhalation BID prednisone 20 mg tablet 40 mg PO DAILY Qty: 6 0RF amlodipine 5 mg Tablet 5 mg PO DAILY Qty: 30 0RF Protocol: Hold for SBP< HOLD for SBP < : 90 lisinopril 20 mg tablet 20 mg PO QAM sertraline 100 mg tablet 100 mg PO DAILY escitalopram oxalate [Lexapro] 5 mg tablet 5 mg PO DAILY levofloxacin 750 mg tablet 750 mg PO DAILY 7 Days Qty: 7 0RF Referrals: Mirtha Lunsford MD [Primary Care Provider] - 05/09/23
[2023-05-06] MEDS: Albuterol Sulfate 2.5 MG, Albuterol/Iprat 2.5/0.5MG 3 ML 3 ML INHALE ×2 (09:57→10:23)
[2023-05-06] MEDS: methylPREDNISolone Sod Succ 125 MG/2 ML VIAL IVPUSH (10:30)
[2023-05-06] MEDS: 0.9 % Sodium Chloride 1,000 ML 999 ML IV (10:30)
[2023-05-06 10:35] LABS: MANUAL DIFF FLAG NO
[2023-05-06 10:39] LABS: Basophils Percent Auto 0.5 % (0-2); Eosinophils Absolute Auto 0.2 X10*3/uL (0.0-0.4); Eosinophils Percent Auto 2.8 % (0-4); Hematocrit 47.8 % (42.0-52.0); Hemoglobin 16.2 g/dl (14.0-18.0); Imm Gran Abs Auto 0.04 X10*3/uL (0.00-0.03); Imm Gran Pct Auto 0.5 % (0.0-0.4); Lymphocytes Percent Auto 25.5 % (20-40); Mean Corpuscular HGB Conc 33.9 g/dl (31.0-36.0); Mean Corpuscular Hemoglobin 30.6 pg (27.0-33.0); Mean Corpuscular Volume 90.2 fL (80.0-98.0); Mean Platelet Volume 10.9 fL (9.4-12.4); Monocytes Absolute Auto 0.7 X10*3/uL (0.1-1.2); Monocytes Percent Auto 9.5 % (2-11); Neutrophils Absolute Auto 4.8 x10*3/uL (2.0-8.3); Neutrophils Percent Auto 61.2 % (45-73); Platelet Count 245 X10*3/uL (160-400); White Blood Count 7.8 X10*3/uL (4.8-10.8)
[2023-05-06 10:58] LABS: Anion Gap 13 (12-20); Blood Urea Nitrogen 13 mg/dL (9-16); Calcium 10.2 mg/dL (8.4-10.2); Carbon Dioxide 25 mmol/L (22-29); Chloride 105 mmol/L (96-108); Creatinine Clr Calc Pharmacy 98.7; Estimated Glomerular Filt Rate > 60; Glucose Random 94 mg/dL (60-115); Potassium 4.3 mmol/L (3.3-5.1); Sodium 139 mmol/L (135-145)
[2023-05-06 11:02] LABS: B Type Natriuretic Peptide 36 pg/mL (<100); Troponin-I High Sensitivity 11.3 ng/L (<3.5-35.0)
[2023-05-06 11:24] LABS: Influenza A PCR NEGATIVE (Negative); Influenza B PCR NEGATIVE (Negative); Resp Syncy Virus RNA Qual PCR NEGATIVE (Negative); SARS COV2 PCR INHOUSE NEGATIVE (Negative)
[2023-05-06 12:12] LABS: Appearance Urine Clear; Color Urine Yellow; Glucose Urine UA Negative (Negative); Leukocyte Esterase Urine Negative (Negative); Nitrite Urine Negative (Negative); Specific Gravity - Urine 1.015 (1.005-1.025); Urine Blood Negative (Negative); Urine Ketones Negative (Negative); Urine Protein Negative (Neg-Trace)
[2023-05-06 12:14] LABS: Bacteria Urine None Seen (None Seen); Hyaline Casts Urine 0-2 /LPF (0-2); RBC Urine 0-2 /HPF (0-2); Squamous Epithelial Cell Urine 0-2 /HPF (0-2); WBC Urine 0-5 /HPF (0-5)
[2023-05-06 12:33] LABS: Troponin-I High Sensitivity 11.1 ng/L (<3.5-35.0)
[2023-05-06] MEDS: Albuterol/Iprat 2.5/0.5MG 3 ML AMPUL.NEB INHALE (12:48)
== END 2023-05-06 13:44 | disposition home or self-care (01) ==
PROVIDERS: Emergency Provider Emergency Medicine Emergency Medical Services; PCP Family Medicine
DX: J40 Bronchitis, not specified as acute or chronic (principal); R21 Rash and other nonspecific skin eruption; I10 Essential (primary) hypertension; J45.909 Unspecified asthma, uncomplicated; Z11.52 Encounter for screening for COVID-19; Z20.828 Contact with and (suspected) exposure to other viral communicable diseases
CPT/HCPCS: 0241U; 36415; 71045; 80048; 81001; 83880; 84484; 85025; 93005; 94640; 96361; 96374; 99285; J2930

== ENCOUNTER → 2023-05-06 09:34 | Outpatient (BNV) | payer MEDICAID, SELFPAY | PROVIDERS: Emergency Provider Emergency Medicine Emergency Medical Services; PCP Family Medicine; Visit Provider Internal Medicine Cardiovascular Disease | DX: R07.9 Chest pain, unspecified (principal) | CPT/HCPCS: 93010 ==

== ENCOUNTER → 2023-05-11 12:16 | Outpatient (BNVA) | payer MEDICAID, SELFPAY | PROVIDERS: PCP Family Medicine; Visit Provider Internal Medicine ==

== ENCOUNTER 2023-05-19 08:01 | Outpatient (REF) | payer MEDICAID, SELFPAY ==
[2023-05-19 08:06] VITALS: BP 123/92; PULSE 100; RESP 18; TEMP 36.5; O2SAT 97
== END 2023-05-19 08:02 | disposition home or self-care (01) ==
LOC: HO.MDS 08:01
PROVIDERS: Visit Provider Internal Medicine Pulmonary Disease
DX: J45.50 Severe persistent asthma, uncomplicated (principal)
CPT/HCPCS: 96372; J2357

== ENCOUNTER 2023-05-30 10:38 | Outpatient (REF) | payer MEDICAID, SELFPAY ==
[2023-05-30 12:36] LABS: Alanine Aminotransferase 18 U/L (0-40); Albumin Level 4.6 g/dL (3.5-5.0); Alkaline Phosphatase 134 U/L (39-117); Anion Gap 13 (12-20); Aspartate Amino Transferase 17 U/L (5-37); Bilirubin Direct 0.2 mg/dL (0.0-0.5); Bilirubin Total 0.3 mg/dL (0.0-1.0); Blood Urea Nitrogen 13 mg/dL (9-16); Calcium 9.7 mg/dL (8.4-10.2); Carbon Dioxide 28 mmol/L (22-29); Chloride 104 mmol/L (96-108); Cholesterol 237 mg/dL (<200); Estimated Glomerular Filt Rate > 60; Glucose Random 99 mg/dL (60-115); HDL Cholesterol 79 mg/dL (>40); LDL Cholesterol Calculated 131 mg/dL (<100); Potassium 4.5 mmol/L (3.3-5.1); Sodium 140 mmol/L (135-145); Triglycerides 139 mg/dL (<150)
[2023-05-30 12:54] LABS: TSH reflex Free T4 0.33 uIU/mL (0.32-4.0)
[2023-05-30 12:59] LABS: HIV AB/AG Nonreactive (Nonreactive); HIV Num 1 0.05 S/CO (0.00-0.99); ~HepC Num1 0.15 S/CO (0.00-0.79); ~Hepatitis C Antibody Nonreactive (Nonreactive)
[2023-05-30 13:52] LABS: CT PCR NOT DETECTED (Not Detect.); NG PCR NOT DETECTED (Not Detect.)
[2023-06-01 08:54] LABS: RPR Rapid Plasma Reagin NON-REACTIVE (NON-REACTIVE)
== END 2023-05-30 10:39 | disposition home or self-care (01) ==
LOC: HO.HHCL 10:38
PROVIDERS: Visit Provider Family Medicine
DX: R00.0 Tachycardia, unspecified (principal); I10 Essential (primary) hypertension; E78.5 Hyperlipidemia, unspecified; Z11.3 Encounter for screening for infections with a predominantly sexual mode of transmission
CPT/HCPCS: 0353U; 36415; 80048; 80061; 80076; 84443; 86592; 86803; 87389

== ENCOUNTER 2023-06-02 10:53 | Outpatient (AMB) | payer MEDICAID, SELFPAY ==
[2023-06-02 10:55] VITALS: BP 128/82; PULSE 109; BMI 33.7
--- NOTE | 2023-06-02 10:55 | MHC.OFFVIS ---
Intake Vital Signs 06/02/23 10:55 Height 5 ft 6 in Weight 208 lb 15.971 oz BMI 33.7 BP 128/82 Blood Pressure Location Lt brachial Position Sitting Pulse 109 H Pulse Source Pulse Oximeter Intake Visit Reasons: Adrenal adenoma-confirmed Intake Note: Patient present today for Adrenal adenoma follow up visit. Tactical Response Group Officer Required: No Accompanied by: Self / Same As Patient Allergies Iodinated Contrast Media Allergy (Severe, Verified 06/02/23 11:02) Unknown ibuprofen [From MOTRIN] Allergy (Unknown, Verified 06/02/23 11:02) KIDNEY ISSUES mushroom Adverse Reaction (Mild, Verified 06/02/23 11:02) VOMITING amlodipine Adverse Reaction (Unknown, Verified 06/02/23 11:02) Swelling Medication List - Last Reconciled 06/02/23 by Artur Aguilar MD acetaminophen (Tylenol) 650 mg (2 x 325 mg) PO Q6H PRN albuterol sulfate 90 mcg/actuation 2 puffs inhalation QID PRN albuterol sulfate 90 mcg/actuation 2 inhalations inhalation Q6H PRN amlodipine 5 mg See Protocol PO DAILY cyclobenzaprine 10 mg PO BEDTIME PRN doxycycline hyclate 100 mg PO BID 7 days escitalopram oxalate (Lexapro) 5 mg PO DAILY fluticasone propion-salmeterol 115-21 mcg/actuation (Advair HFA) 2 puffs inhalation Q12H 30 days fluticasone propionate 50 mcg/actuation (Flonase Allergy Relief) 1 spray intranasal BID 30 days ipratropium-albuterol 20-100 mcg/actuation (Combivent Respimat) 1 puff inhalation BID lisinopril 20 mg PO QAM loratadine 10 mg PO DAILY montelukast 10 mg PO BEDTIME omalizumab (Xolair) 225 mg subcut Q2W 28 days pregabalin (Lyrica) 150 mg PO BID HPI HPI Comments History of Present Illness Details 53 yo male today for follow-up visit, for adrenal lesion evaluation. He is feeling well. He had allergic reaction to IV contrast. The had to send the patient to ER after IV contrast was given. He has incidental finding right adrenal nodule found in CT performed in ER back in February 2018. A CT with washout was consistent with benign adenoma. He has had extensive biochemical workup which showed the mass was not secretory with including several dexamethasone suppression test. More recently, he completed a course of steroids for asthma and is going to go for steroid injection next week. Denies no dizziness, denies acne, proximal muscle weakness, y, no violaceous stretch escalante, , denies nausea, vomiting, diarrhea, palpitations, sweating, flushing, headache, anxiety, irritability. FH negative for cancer. personal age appropriate screening for cancer negative. 03/02/18 CT scan. There is a 1.5 cm enhancing right adrenal lesion measuring 69 Hounsfield units. Left adrenal gland is normal. 03/29/19 CT Abdomenr There is 1.3 x 1.4 cm right adrenal lesion. On precontrast exam it measures 17 Hounsfield units. On immediate post contrast it measures 78 Hounsfield units and on delayed 10 minute images it measures 40 Hounsfield units. The absolute washout is 62.3% and related washout is 48.7%. These findings are consistent with benign adrenal adenoma. The left adrenal gland is normal. 04/04/18 CT abdomen with and without contrast. There is a 1.5 cm right adrenal lesion. On precontrast it measures 17 Hounsfield units. On the postcontrast exam it measures 65 Hounsfield units and on 10 minute washout images it measures 30 Hounsfield units. The absolute washout is 72.9% and related washout is 53.8% suggestive of adenoma. The left adrenal gland is normal. Workup for hypersecretion was normal. No sx of pheo or [facility] Medical History Asthma Asthma with exacerbation Hypertension 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 Arthritis Surgical History History of unilateral nephrectomy H/O neck surgery Previous back surgery H/O kidney removal Family History Mother Hypertension Asthma Father Medical history unknown Social History Household Members: None Housing: Apartment Do you presently have visiting nurse or other home services: No Alcohol intake: current Alcohol intake frequency: holidays/special occasions only Alcohol type: beer Patient Tobacco Use Status: Current everyday Tobacco user Tobacco use type: Cigarette Cigarette Packs Per Day: 0 Cigarettes Per Day: 4 Years Smoked: 20 years e-Cigarette/Vaping Use: Former Use Second Hand Smoke Exposure: No service: No Current occupational status: employed Physical Exam Vital Signs: Last Vital Signs Pulse 109 H 06/02/23 10:55 BP 128/82 06/02/23 10:55 BMI result Body Mass Index 33.7 Const Other: No cushingoid features Assessment & Plan Assessment & Plan (1) 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: Code(s): D35.01 - Benign neoplasm of right adrenal gland Plan: This is a 51-year-old male with a history of adrenal mass of the right characterized as benign with washout and found to be non secretory. The plan is to continued observation. May repeat 1 mg dexamethasone suppression test in 1 year Coding Level of Care Code Est Pt Level 3 (01761) Diagnoses 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 D35.01
== END 2023-06-02 11:13 | disposition home or self-care (01) ==
PROVIDERS: PCP Family Medicine; Referring Provider Family Medicine; Visit Provider Internal Medicine Endocrinology, Diabetes & Metabolism
DX: D35.01 Benign neoplasm of right adrenal gland (principal)
CPT/HCPCS: 99213

== ENCOUNTER 2023-06-06 06:21 | Emergency (ER) | payer MEDICAID, SELFPAY ==
--- NOTE | ~2023-06-06 | XR_ITS ---
EXAMINATION: XR CHEST CLINICAL INFORMATION: Shortness of breath. COMPARISON: Multiple priors with the last chest x-ray of 05/06/2023 TECHNIQUE: 2 views of the chest were obtained. FINDINGS: Lower cervical fusion hardware is again noted. The cardiomediastinal silhouette is stable and normal. The lungs are symmetrically adequately expanded. No focal consolidation, changes of congestion or pleural effusions are seen. No pneumothorax. Small round nodular density noted at the right lung base laterally projecting over the ninth rib lateral segment is felt to represent a nipple shadow. Mild arthritic changes at the acromioclavicular articulation are again noted. XR/XR chest 2V IMPRESSION: No radiographic evidence of pneumonia or pulmonary edema. No acute pulmonary process. A faint round nodular opacity noted at the right lung base laterally probably represents a nipple shadow. Consider repeat PA view following nipple marker placement.
[2023-06-06 06:30] VITALS: BP 159/90; PULSE 100; RESP 20; TEMP 37; O2SAT 98; BMI 33.9
--- NOTE | 2023-06-06 06:46 | PC.NURSE ---
pt no longer wanted to stay due to wait time.
== END 2023-06-06 09:26 | disposition left against medical advice (07) ==
PROVIDERS: Emergency Provider Emergency Medicine; PCP Family Medicine
DX: R09.A2 Foreign body sensation, throat (principal)
CPT/HCPCS: 71046; 99281; 99283

== ENCOUNTER 2023-06-07 12:37 | Outpatient (REF) | payer MEDICAID, SELFPAY ==
--- NOTE | ~2023-06-07 | XR_ITS ---
EXAMINATION: XR CHEST CLINICAL INFORMATION: Right nipple marker recommended by radiologist because a small round nodular opacity. COMPARISON: 06/06/2023 TECHNIQUE: 2 frontal views of the chest was obtained. FINDINGS: Redemonstration of lower cervical fusion hardware. Heart size normal. There is no gross pneumothorax. Radiopaque marker placed on right nipple correlates with general region of previously questioned small rounded nodular density felt to likely represent a nipple shadow, although this density is less conspicuous on the current exam. No pleural effusion. No focal consolidation. XR/XR chest 1V IMPRESSION: Radiopaque marker placed on right nipple correlates with general region of previously questioned small round nodular density felt to likely represent a nipple shadow, although this density is less conspicuous on the current exam. This study was presented today, June 07, 2023, for interpretation. Stat results provided at this time as requested by referring provider.
== END 2023-06-07 12:38 | disposition home or self-care (01) ==
LOC: HO.HHCX 12:37
PROVIDERS: Visit Provider Emergency Medicine
DX: R93.89 Abnormal findings on diagnostic imaging of other specified body structures (principal)
CPT/HCPCS: 71045

== ENCOUNTER 2023-06-20 14:30 | Outpatient (AMB) | payer MEDICAID, SELFPAY ==
[2023-06-20 14:48] VITALS: BP 125/80; PULSE 107; BMI 34.2
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
== END 2023-06-20 15:05 | disposition home or self-care (01) ==
PROVIDERS: PCP Family Medicine; Referring Provider Family Medicine; Visit Provider Surgery
DX: Z87.19 Personal history of other diseases of the digestive system (principal)
CPT/HCPCS: 99203

== ENCOUNTER → 2023-06-20 14:30 | Outpatient (BNVA) | payer MEDICAID, SELFPAY | PROVIDERS: PCP Family Medicine; Visit Provider Surgery | DX: Z87.19 Personal history of other diseases of the digestive system (principal); Z71.2 Person consulting for explanation of examination or test findings | CPT/HCPCS: 99202 ==

== ENCOUNTER 2023-07-03 07:10 | Emergency (ER) | payer MEDICAID, SELFPAY ==
[2023-07-03 07:13] VITALS: BP 150/99; PULSE 106; RESP 18; TEMP 37.2; O2SAT 97; BMI 45.2
[2023-07-03 08:12] LABS: Influenza A PCR NEGATIVE (Negative); Influenza B PCR NEGATIVE (Negative); Resp Syncy Virus RNA Qual PCR NEGATIVE (Negative); SARS COV2 PCR INHOUSE NEGATIVE (Negative)
[2023-07-03] MEDS: diphenhydrAMINE HCL 25 MG CAPSULE PO (08:49)
--- NOTE | 2023-07-03 09:24 | ED.GENADULT ---
HPI - General Adult General Chief complaint: Skin/Abscess/Foreign Body Stated complaint: Body aches Time Seen by Provider: 07/03/23 07:51 Source: patient Mode of arrival: ambulatory History of Present Illness HPI narrative: 53-year-old male presents with bilateral skin itchiness to flank areas of the abdomen, no difficulty swallowing, no facial swelling and no difficulty breathing. Related Data Home Medications ?Medication ?Instructions ?Recorded ?Confirmed pregabalin 150 mg capsule (Lyrica) 150 mg PO BID 11/26/19 06/20/23 cyclobenzaprine 10 mg tablet 10 mg PO BEDTIME PRN muscle pain 11/28/22 06/20/23 ipratropium 20 mcg-albuterol 100 1 puff inhalation BID Shortness Of 11/28/22 06/20/23 mcg/actuation mist for inhalation Breath Or Wheezing (Combivent Respimat) escitalopram oxalate 5 mg tablet 5 mg PO DAILY 12/30/22 06/20/23 (Lexapro) lisinopril 20 mg tablet 20 mg PO QAM 12/30/22 06/20/23 loratadine 10 mg tablet 10 mg PO DAILY 05/11/23 06/20/23 montelukast 10 mg tablet 10 mg PO BEDTIME 05/11/23 06/20/23 atorvastatin 40 mg tablet 40 mg PO QAM 06/20/23 06/20/23 carvedilol 3.125 mg tablet 3.125 mg PO BID 06/20/23 06/20/23 escitalopram oxalate 10 mg tablet 10 mg PO DAILY 06/20/23 06/20/23 hydroxyzine pamoate 25 mg capsule 25 mg PO DAILY PRN anxiety 06/20/23 06/20/23 hydroxyzine pamoate 50 mg capsule 50 mg PO DAILY PRN anxiety 06/20/23 06/20/23 metoprolol succinate 25 mg 12.5 mg PO DAILY 06/20/23 06/20/23 tablet,extended release 24 hr nicotine 7 mg/24 hr daily 1 patch transdermal Q24H 06/20/23 transdermal patch pregabalin 150 mg capsule (Lyrica) 150 mg PO DAILY 06/20/23 sertraline 100 mg tablet 100 mg PO DAILY 06/20/23 terbinafine HCl 1 % topical cream 1 appl topical BID 06/20/23 Previous Rx's ?Medication ?Instructions ?Recorded omalizumab 150 mg subcutaneous 225 mg subcut Q2W 28 days #3 ea 12/11/20 solution (Xolair) acetaminophen 325 mg tablet 650 mg (2 x 325 mg) PO Q6H PRN 08/19/22 (Tylenol) pain #30 tabs albuterol sulfate 90 mcg/actuation 2 puff inhalation QID PRN 09/29/22 aerosol inhaler shortness of breath or wheezing #6.7 grams amlodipine 5 mg tablet 5 mg PO DAILY #30 tabs 12/03/22 fluticasone propionate 115 2 puff inhalation Q12H 30 days #1 03/24/23 mcg-salmeterol 21 mcg/actuation ea HFA inhaler (Advair HFA) albuterol sulfate 90 mcg/actuation 2 inh inhalation Q6H PRN shortness 05/06/23 breath activated powder inhaler of breath or wheezing #1 ea doxycycline hyclate 100 mg capsule 100 mg PO BID cough 7 days #14 caps 05/06/23 fluticasone propionate 50 1 spray intranasal BID 30 days #16 06/07/23 mcg/actuation nasal grams spray,suspension (Flonase Allergy Relief) sodium,potassium,mag sulfates 17.5 See Rx Instructions PO .COMPLEX 06/20/23 gram-3.13 gram-1.6 gram oral soln #354 mL (Suprep Bowel Prep Kit) levofloxacin 750 mg tablet 750 mg PO DAILY #7 tabs 06/29/23 Allergies Allergy/AdvReac Type Severity Reaction Status Date / Time Iodinated Contrast Media Allergy Severe Unknown Verified 07/03/23 07:15 ibuprofen [From MOTRIN] Allergy Unknown KIDNEY Verified 07/03/23 07:15 ISSUES mushroom AdvReac Mild VOMITING Verified 07/03/23 07:15 amlodipine AdvReac Unknown Swelling Verified 07/03/23 07:15 Review of Systems Review of Systems: Pertinent positives and negatives as stated in HPI [facility] Past Medical History Source: nursing notes reviewed Medical History Smoker History of rectal polyps Asthma Asthma with exacerbation Hypertension 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 Arthritis Surgical History History of unilateral nephrectomy H/O neck surgery Previous back surgery H/O kidney removal Family History Family History Mother Hypertension Asthma Father Medical history unknown Social History Social History Household Members: None Housing: Apartment Do you presently have visiting nurse or other home services: No Alcohol intake: current Alcohol intake frequency: holidays/special occasions only Alcohol type: beer Patient Tobacco Use Status: Current everyday Tobacco user Tobacco use type: Cigarette Cigarette Packs Per Day: 0 Cigarettes Per Day: 4 Years Smoked: 20 years e-Cigarette/Vaping Use: Former Use Second Hand Smoke Exposure: No Advance Directives: No Advance Directives Information Provided: No Do you have a plan to hurt others: No Plan service: No Current occupational status: employed Physical Exam ED Vital Signs: Vital Signs - 24 hr 07/03/23 07:13 Temperature 99.0 F Pulse Rate 106 H Respiratory Rate 18 Blood Pressure 150/99 H Pulse Oximetry 97 Oxygen Delivery Method Room Air BMI result Body Mass Index 45.2 VITAL SIGNS: Reviewed. GENERAL: Well developed, well nourished, in no acute distress. HEAD: Normocephalic/atraumatic EYES: PERRLA, EOMI EARS: Ext canals without abnormality, TMs non-bulging and non-erythematous NOSE: Nares patent bilateral OROPHARYNX: no oral lesions noted, posterior pharynx clear and non-erythematous without noted tonsillar enlargement/erythema/exudates NECK: Supple, no adenopathy LUNGS: Normal breath sounds. No adventitious sounds or accessory muscle use. SpO2<97> CARDIOVASCULAR: Regular rate and rhythm without noted murmurs ABDOMEN: Soft, non-tender, non-distended with bowel sounds. MUSCULOSKELETAL: No tenderness, deformities, or effusions noted on gross inspection. EXTREMITIES: No cyanosis, clubbing or edema. SKIN: Inspection of the skin reveals mild erythema to bilateral abdominal flank, no purpura NEUROLOGIC: Alert and oriented x 4. Strength and sensation to light touch were grossly intact x 4. Medications Administered Discontinued Medications Generic Name Dose Route Start Last Admin Trade Name Freq PRN Reason Stop Dose Admin Diphenhydramine HCl 25 mg 07/03/23 08:18 07/03/23 08:49 Diphenhydramine Hcl 25 Mg Capsule PO 07/03/23 08:19 25 mg ONCE ONE Administration Medical Decision Making Medical Decision Making MDM Narrative: 53-year-old male with history and clinical presentation, possible viral illness, possible medication side effect as recent use of of medication, possible scratching due to dry skin. Patient just completed a course of levofloxacin. Patient given 25 mg of Benadryl, I did review the viral testing results which are negative for influenza/RSV/COVID-19. Patient may be experiencing a sensitivity to levofloxacin, he was informed of this and instructed to communicate this before getting treated with this antibiotic in the future. Lab Data [facility] Lab Attestation statement: I reviewed the patient's lab results. Please see the discussion above Labs: Lab Results 07/03/23 Range/Units 07:30 Influenza Type A (PCR) NEGATIVE (Negative) Influenza Type B (PCR) NEGATIVE (Negative) RSV RNA Qual (PCR) NEGATIVE (Negative) SARS-CoV-2 RNA (RT-PCR) NEGATIVE (Negative) External Record Review External record reviewed: Outpatient record, Prior outpatient labs, Prior outpatient radiology and Outside ED record Critical Care Time Critical Care Time Critical Care Time: Yes Total Critical Care Time: 30 Attestation: I personally attest to this time spent taking care of the patient. Discharge Plan Discharge Clinical Impression: Antibiotic-induced allergic rash Patient Disposition: Home, Self-Care Instructions: Antibiotic Medication Allergy (ED) Additional Instructions: I suspicion for reaction to levofloxacin, recommend avoiding this medication in the future. Continue to take [id number] Benadryl as needed for any further redness and itching. Return to the ER for any facial/lip/tongue swelling or difficulty breathing. Prescriptions: No Action Xolair 150 mg recon soln 225 mg subcut Q2W 28 Days Qty: 3 12RF Rx Instructions: requires multiple injection sites; do not exceed 150 mg per injection site; NEXT DOSE: 11/30/22 fluticasone propion-salmeterol [Advair HFA] 115-21 mcg/actuation HFA aerosol inhaler 2 puff inhalation Q12H 30 Days Qty: 1 6RF fluticasone propionate [Flonase Allergy Relief] 50 mcg/actuation spray,suspension 1 spray intranasal BID 30 Days Qty: 16 2RF Rx Instructions: administer into each nostril levofloxacin 750 mg tablet 750 mg PO DAILY Qty: 7 0RF pregabalin [Lyrica] 150 mg Capsule 150 mg PO BID Rx Instructions: CANNOT TAKE WITH TRAMADOL montelukast 10 mg tablet 10 mg PO BEDTIME loratadine 10 mg tablet 10 mg PO DAILY acetaminophen [Tylenol] 325 mg tablet 650 mg PO Q6H PRN (Reason: pain) Qty: 30 0RF doxycycline hyclate 100 mg capsule 100 mg PO BID 7 Days Qty: 14 0RF albuterol sulfate 90 mcg/actuation aerosol powdr breath activated 2 inh inhalation Q6H PRN (Reason: shortness of breath or wheezing) Qty: 1 0RF albuterol sulfate 90 mcg/actuation HFA aerosol inhaler 2 puff inhalation QID PRN (Reason: shortness of breath or wheezing) Qty: 6.7 0RF cyclobenzaprine 10 mg tablet 10 mg PO BEDTIME PRN (Reason: muscle pain) Combivent Respimat 20-100 mcg/actuation mist 1 puff inhalation BID amlodipine 5 mg Tablet 5 mg PO DAILY Qty: 30 0RF Protocol: Hold for SBP< HOLD for SBP < : 90 lisinopril 20 mg tablet 20 mg PO QAM escitalopram oxalate [Lexapro] 5 mg tablet 5 mg PO DAILY pregabalin [Lyrica] 150 mg capsule 150 mg PO DAILY atorvastatin 40 mg tablet 40 mg PO QAM escitalopram oxalate 10 mg tablet 10 mg PO DAILY carvedilol 3.125 mg tablet 3.125 mg PO BID hydroxyzine pamoate 50 mg capsule 50 mg PO DAILY PRN (Reason: anxiety) hydroxyzine pamoate 25 mg capsule 25 mg PO DAILY PRN (Reason: anxiety) metoprolol succinate 25 mg tablet extended release 24 hr 12.5 mg PO DAILY nicotine 7 mg/24 hr patch 24 hour 1 patch transdermal Q24H sertraline 100 mg tablet 100 mg PO DAILY terbinafine HCl 1 % cream 1 appl topical BID sodium,potassium,mag sulfates [Suprep Bowel Prep Kit] 17.5-3.13-1.6 gram recon soln See Rx Instructions PO .COMPLEX Qty: 354 0RF Rx Instructions: DILUTE; drink full amount early evening before AND next morning at least 2 hr before procedure; follow w 960 mL water PO Referrals: Mirtha Lunsford MD [Primary Care Provider] - Print Language: Montserratian
[2023-07-03 09:40] VITALS: BP 146/86; PULSE 95; RESP 18; TEMP 36.3; O2SAT 98
== END 2023-07-03 09:40 | disposition home or self-care (01) ==
PROVIDERS: Emergency Provider Student in an Organized Health Care Education/Training Program; PCP Family Medicine
DX: R21 Rash and other nonspecific skin eruption (principal); L29.9 Pruritus, unspecified; M79.10 Myalgia, unspecified site; F17.210 Nicotine dependence, cigarettes, uncomplicated; Z11.52 Encounter for screening for COVID-19; Z20.822 Contact with and (suspected) exposure to COVID-19; Z79.899 Other long term (current) drug therapy
CPT/HCPCS: 0241U; 99282; 99283

== ENCOUNTER 2023-07-08 06:51 | Day surgery (SDC) | payer MEDICAID, SELFPAY ==
[2023-07-06 12:06] VITALS: BMI 34.2
--- NOTE | 2023-07-06 13:47 | HO.ANESPROP2 ---
Documented by User: Mely Chun NP 07/06/23 13:48 HPI - Anesthesia Eval Consult details Narrative: 53yo M for Colonoscopy with possible Polypectomy PMFSH Active Problems Active Problems: All Active Problems Smoker (Acute) History of rectal polyps (Acute) Asthma (Acute) Gastritis (Acute) Acute pyelonephritis (Acute) Acute right flank pain (Acute) Engages in vaping (Acute) Hip pain (Acute) Environmental allergies (Acute) 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 (Acute) H/O neck surgery (Acute) H/O kidney removal (Acute) Arthritis (Acute) Past Medical History Medical History Smoker History of rectal polyps Asthma Asthma with exacerbation Hypertension 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 Arthritis Family History Family History Mother Hypertension Asthma Father Medical history unknown Surgical History Surgical History History of unilateral nephrectomy H/O neck surgery Previous back surgery H/O kidney removal Social History Social History Household Members: None Housing: Apartment Do you presently have visiting nurse or other home services: No Alcohol intake: current Alcohol intake frequency: holidays/special occasions only Alcohol type: beer Patient Tobacco Use Status: Current everyday Tobacco user Tobacco use type: Cigarette Cigarette Packs Per Day: 0 Cigarettes Per Day: 5 Years Smoked: 20 years e-Cigarette/Vaping Use: Former Use Second Hand Smoke Exposure: No service: No Current occupational status: employed Meds Allergies Allergy/AdvReac Type Severity Reaction Status Date / Time Iodinated Contrast Media Allergy Severe Unknown Verified 07/03/23 07:15 levofloxacin Allergy Mild Rash Verified 07/03/23 09:34 ibuprofen [From MOTRIN] Allergy Unknown KIDNEY Verified 07/03/23 07:15 ISSUES mushroom AdvReac Mild VOMITING Verified 07/03/23 07:15 amlodipine AdvReac Unknown Swelling Verified 07/03/23 07:15 Home Medications ?Medication ?Instructions ?Recorded ?Confirmed ?Last Taken ?Type pregabalin 150 mg capsule (Lyrica) 150 mg PO BID 11/26/19 06/20/23 11/28/22 09:00 History cyclobenzaprine 10 mg tablet 10 mg PO BEDTIME PRN muscle pain 11/28/22 06/20/23 Unknown History ipratropium 20 mcg-albuterol 100 1 puff inhalation BID Shortness Of 11/28/22 06/20/23 Unknown History mcg/actuation mist for inhalation Breath Or Wheezing (Combivent Respimat) escitalopram oxalate 5 mg tablet 5 mg PO DAILY 12/30/22 06/20/23 Unknown History (Lexapro) lisinopril 20 mg tablet 20 mg PO QAM 12/30/22 06/20/23 Unknown History loratadine 10 mg tablet 10 mg PO DAILY 05/11/23 06/20/23 Unknown History montelukast 10 mg tablet 10 mg PO BEDTIME 05/11/23 06/20/23 Unknown History atorvastatin 40 mg tablet 40 mg PO QAM 06/20/23 06/20/23 Unknown History carvedilol 3.125 mg tablet 3.125 mg PO BID 06/20/23 06/20/23 Unknown History escitalopram oxalate 10 mg tablet 10 mg PO DAILY 06/20/23 06/20/23 Unknown History hydroxyzine pamoate 25 mg capsule 25 mg PO DAILY PRN anxiety 06/20/23 06/20/23 Unknown History hydroxyzine pamoate 50 mg capsule 50 mg PO DAILY PRN anxiety 06/20/23 06/20/23 Unknown History metoprolol succinate 25 mg 12.5 mg PO DAILY 06/20/23 06/20/23 Unknown History tablet,extended release 24 hr nicotine 7 mg/24 hr daily 1 patch transdermal Q24H 06/20/23 Unknown History transdermal patch pregabalin 150 mg capsule (Lyrica) 150 mg PO DAILY 06/20/23 Unknown History sertraline 100 mg tablet 100 mg PO DAILY 06/20/23 Unknown History terbinafine HCl 1 % topical cream 1 appl topical BID 06/20/23 Unknown History Exam Height,Weight and Vital Signs: Height 5 ft 6 in Weight 96.162 kg Assessment and Plan Assessment Anesthesia Assessment: Chart Reviewed Documented by User: Funmi Vazquez MD 07/08/23 09:42 [facility] Past Medical History Medical History Smoker History of rectal polyps Asthma Asthma with exacerbation Hypertension 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 Arthritis Family History Family History Mother Hypertension Asthma Father Medical history unknown Family history of problems with anesthesia: No Surgical History Surgical History History of unilateral nephrectomy H/O neck surgery Previous back surgery H/O kidney removal History of Problems with Anesthesia: No Social History Social History Household Members: None Housing: Apartment Do you presently have visiting nurse or other home services: No Alcohol intake: current Alcohol intake frequency: holidays/special occasions only Alcohol type: beer Patient Tobacco Use Status: Current everyday Tobacco user Tobacco use type: Cigarette Cigarette Packs Per Day: 0 Cigarettes Per Day: 5 Years Smoked: 20 years e-Cigarette/Vaping Use: Former Use Second Hand Smoke Exposure: No service: No Current occupational status: employed Meds Allergies Allergy/AdvReac Type Severity Reaction Status Date / Time Iodinated Contrast Media Allergy Severe Unknown Verified 07/03/23 07:15 levofloxacin Allergy Mild Rash Verified 07/03/23 09:34 ibuprofen [From MOTRIN] Allergy Unknown KIDNEY Verified 07/03/23 07:15 ISSUES mushroom AdvReac Mild VOMITING Verified 07/03/23 07:15 amlodipine AdvReac Unknown Swelling Verified 07/03/23 07:15 Home Medications ?Medication ?Instructions ?Recorded ?Confirmed ?Last Taken ?Type pregabalin 150 mg capsule (Lyrica) 150 mg PO BID 11/26/19 06/20/23 11/28/22 09:00 History cyclobenzaprine 10 mg tablet 10 mg PO BEDTIME PRN muscle pain 11/28/22 06/20/23 Unknown History ipratropium 20 mcg-albuterol 100 1 puff inhalation BID Shortness Of 11/28/22 06/20/23 Unknown History mcg/actuation mist for inhalation Breath Or Wheezing (Combivent Respimat) escitalopram oxalate 5 mg tablet 5 mg PO DAILY 12/30/22 06/20/23 Unknown History (Lexapro) lisinopril 20 mg tablet 20 mg PO QAM 12/30/22 06/20/23 Unknown History loratadine 10 mg tablet 10 mg PO DAILY 05/11/23 06/20/23 Unknown History montelukast 10 mg tablet 10 mg PO BEDTIME 05/11/23 06/20/23 Unknown History atorvastatin 40 mg tablet 40 mg PO QAM 06/20/23 06/20/23 Unknown History carvedilol 3.125 mg tablet 3.125 mg PO BID 06/20/23 06/20/23 Unknown History escitalopram oxalate 10 mg tablet 10 mg PO DAILY 06/20/23 06/20/23 Unknown History hydroxyzine pamoate 25 mg capsule 25 mg PO DAILY PRN anxiety 06/20/23 06/20/23 Unknown History hydroxyzine pamoate 50 mg capsule 50 mg PO DAILY PRN anxiety 06/20/23 06/20/23 Unknown History metoprolol succinate 25 mg 12.5 mg PO DAILY 06/20/23 06/20/23 Unknown History tablet,extended release 24 hr nicotine 7 mg/24 hr daily 1 patch transdermal Q24H 06/20/23 Unknown History transdermal patch pregabalin 150 mg capsule (Lyrica) 150 mg PO DAILY 06/20/23 Unknown History sertraline 100 mg tablet 100 mg PO DAILY 06/20/23 Unknown History terbinafine HCl 1 % topical cream 1 appl topical BID 06/20/23 Unknown History Exam Height,Weight and Vital Signs: Height 5 ft 6 in Weight 96.162 kg Vital Signs Temp Pulse Resp BP Pulse Ox O2 Del Method 97.0 F 92 16 122/88 92 Room Air 07/08/23 08:04 07/08/23 08:04 07/08/23 08:04 07/08/23 08:04 07/08/23 08:04 07/08/23 08:04 Airway Mallampati Class: II TM Dist: >3cm Neck ROM: Full Partial: Upper and Lower Heart: RRR Lungs: Bilateral wheezes Assessment and Plan Assessment Anesthesia Assessment: Anesthesia Plan Discussed and Chart Reviewed Final Anesthetic Review Family History of Problems with Anesthesia: No History of Problems with Anesthesia: No NPO: Yes ASA Class: II Final Preanesthetic Review: No Changes in Pt Med Stat, Meds/Allgs Chart Reviewed, Consent Obtained/Reviewed and Anes Risks/Benef Reviewed Patient Risk: Intermediate Procedure Risk: Low Assessment/Block/Sedation in SS: Assess/Block/Sedation-SS Anesthetic Plan Anesthetic Plan: TIVA Disposition: Standard PACU
[2023-07-08 07:47] VITALS: BMI 32.3
[2023-07-08 08:04] VITALS: BP 122/88; PULSE 92; RESP 16; TEMP 36.1; O2SAT 92
[2023-07-08] MEDS: Lactated Ringers 1,000 ML 100 ML IVCONT (08:07)
--- NOTE | 2023-07-08 08:10 | MHC.SHP ---
Pre-Procedural Eval Section A - 24 Hr Update-Section A only Date of Service: 07/08/23 The patient is an INPATIENT: No The patient has been examined within 24 hours of the surgical procedure. The History & Physical has been completed within 30 days and I have reviewed it.: Yes Section B - Complete if H&P > 30 days Chief Complaint: Personal history of other diseases Allergies: Allergies Allergy/AdvReac Type Severity Reaction Status Date / Time Iodinated Contrast Media Allergy Severe Unknown Verified 07/03/23 07:15 levofloxacin Allergy Mild Rash Verified 07/03/23 09:34 ibuprofen [From MOTRIN] Allergy Unknown KIDNEY Verified 07/03/23 07:15 ISSUES mushroom AdvReac Mild VOMITING Verified 07/03/23 07:15 amlodipine AdvReac Unknown Swelling Verified 07/03/23 07:15 Plan I have reviewed the history and physical and performed a pertinent physical examination on my patient. No changes have occurred unless specified. Time Spent With Patient Time: Total time managing care of this patient today ____ minutes.
[2023-07-08] MEDS: Albuterol Sulfate (0.083%) 2.5 MG/3 ML VIAL.NEB INHALE (08:37)
[2023-07-08 08:39] VITALS: PULSE 91; RESP 18; O2SAT 95
--- NOTE | 2023-07-08 09:33 | W.PM.OPN ---
Operative Note Operative Note Date of Service: 07/08/23 Narrative: Preop diagnosis: History of a tubular adenoma Postop diagnosis: 1. Flat polyp about 1 cm, in the cecum, removed with multiple bites of the cold forceps 2. Small polyp about 2-3 mm at level 80 cm, removed with multiple bites of a cold forceps 3. Small polyp, about 2-3 mm at level 70 cm , removed with multiple bites of a cold forceps 4. Small polyp about 2-3 mm at level 45 cm, removed with multiple bites of the cold forceps 5. Small polyp, about 2-3 mm at level 20 cm removed with multiple bites of cold forceps 6. Polyp, about 5 mm, at level 5 cm removed with multiple bites of the cold forceps 7. External hemorrhoid Procedure: Colonoscopy with polypectomy using cold forceps x 6 The patient is a 53-year-old male, with a history of tubular adenoma in the past, here for a follow-up colonoscopy. He understands the technique of the procedure as well as the risks, benefits, and alternatives The patient was brought to the operating room and placed in left lateral decubitus position under monitored anesthesia care. A surgical time-out was done. A full digital rectal exam was done and this did not reveal any significant anal lesions. He did have external hemorrhoids. The tip of the Olympus colonoscope was gently introduced through the anal orifice advanced with insufflation all the way to the cecum. The cecum was intubated. The cecum was identified by visualization of the ileocecal valve as well as the appendiceal orifice. There was note of a flat polyp in the cecum, about 1 cm in widest dimension removed with multiple bites of cold forceps. The scope was gradually withdrawn with careful examination of the entire colonic mucosa being done with scope withdrawal. The patient had adequate bowel prep so it was unlikely that any lesion may have been missed. There was note of a small polyp about 2-3 mm at level 80 cm removed with multiple bites of the cold forceps. Another small polyp about 2-3 mm in size was removed with multiple bites of the cold forceps at level 70 cm. A small polyp about 2-3 mm was seen at 45 cm also removed with multiple bites of the cold forceps. A small polyp about 2-3 mm at level 20 cm removed with multiple cold forceps. A polyp in the rectum about 5 mm in size at level 5 cm was removed with cold forceps as well. The rest of the anal canal was unremarkable except for hemorrhoids. The scope was then withdrawn completely with desufflation. The patient tolerated procedure well. There were no immediate complications. Depending on the path report, will probably recommend repeating the colonoscopy in 1 year because of the multiple polyps as above.
[2023-07-08 09:34] VITALS: BP 95/53; PULSE 96; RESP 12; TEMP 36.5; O2SAT 96
--- NOTE | 2023-07-08 09:48 | P.CONAN_ITS ---
HPI - Anesthesia Eval Consult details Narrative: for colon screen [facility] Active Problems Active Problems: All Active Problems Smoker (Acute) History of rectal polyps (Acute) Asthma (Acute) Gastritis (Acute) Acute pyelonephritis (Acute) Acute right flank pain (Acute) Engages in vaping (Acute) Hip pain (Acute) Environmental allergies (Acute) 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 (Acute) H/O neck surgery (Acute) H/O kidney removal (Acute) Arthritis (Acute) Past Medical History Medical History Smoker History of rectal polyps Asthma Asthma with exacerbation Hypertension 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 Arthritis Family History Family History Mother Hypertension Asthma Father Medical history unknown Family history of problems with anesthesia: No Surgical History Surgical History History of unilateral nephrectomy H/O neck surgery Previous back surgery H/O kidney removal History of Problems with Anesthesia: No Social History Social History Household Members: None Housing: Apartment Do you presently have visiting nurse or other home services: No Alcohol intake: current Alcohol intake frequency: holidays/special occasions only Alcohol type: beer Patient Tobacco Use Status: Current everyday Tobacco user Tobacco use type: Cigarette Cigarette Packs Per Day: 0 Cigarettes Per Day: 5 Years Smoked: 20 years e-Cigarette/Vaping Use: Former Use Second Hand Smoke Exposure: No Use of substances other than those prescribed or required for medical reasons: No Are you DNR?: No Advance Directives: No Advance Directives Information Provided: Yes service: No Current occupational status: employed Meds Allergies Allergy/AdvReac Type Severity Reaction Status Date / Time Iodinated Contrast Media Allergy Severe Unknown Verified 07/03/23 07:15 levofloxacin Allergy Mild Rash Verified 07/03/23 09:34 ibuprofen [From MOTRIN] Allergy Unknown KIDNEY Verified 07/03/23 07:15 ISSUES mushroom AdvReac Mild VOMITING Verified 07/03/23 07:15 amlodipine AdvReac Unknown Swelling Verified 07/03/23 07:15 Active Medications: Current Medications Albuterol Sulfate (Albuterol Sulfate (0.083%) 2.5 Mg/3 Ml Vial.Neb) 2.5 mg INHALE ONCE PRN PRN Reason: Shortness of Breath/Wheezing Last Admin: 07/08/23 08:37 Dose: 2.5 mg Lactated Ringer's (Lr) 1,000 mls @ 100 mls/hr IVCONT .Q10H JUAN Last Admin: 07/08/23 08:07 Dose: 100 mls/hr Home Medications ?Medication ?Instructions ?Recorded ?Confirmed ?Last Taken ?Type pregabalin 150 mg capsule (Lyrica) 150 mg PO BID 11/26/19 06/20/23 11/28/22 09:00 History cyclobenzaprine 10 mg tablet 10 mg PO BEDTIME PRN muscle pain 11/28/22 06/20/23 Unknown History ipratropium 20 mcg-albuterol 100 1 puff inhalation BID Shortness Of 11/28/22 06/20/23 Unknown History mcg/actuation mist for inhalation Breath Or Wheezing (Combivent Respimat) escitalopram oxalate 5 mg tablet 5 mg PO DAILY 12/30/22 06/20/23 Unknown History (Lexapro) lisinopril 20 mg tablet 20 mg PO QAM 12/30/22 06/20/23 Unknown History loratadine 10 mg tablet 10 mg PO DAILY 05/11/23 06/20/23 Unknown History montelukast 10 mg tablet 10 mg PO BEDTIME 05/11/23 06/20/23 Unknown History atorvastatin 40 mg tablet 40 mg PO QAM 06/20/23 06/20/23 Unknown History carvedilol 3.125 mg tablet 3.125 mg PO BID 06/20/23 06/20/23 Unknown History escitalopram oxalate 10 mg tablet 10 mg PO DAILY 06/20/23 06/20/23 Unknown History hydroxyzine pamoate 25 mg capsule 25 mg PO DAILY PRN anxiety 06/20/23 06/20/23 Unknown History hydroxyzine pamoate 50 mg capsule 50 mg PO DAILY PRN anxiety 06/20/23 06/20/23 Unknown History metoprolol succinate 25 mg 12.5 mg PO DAILY 06/20/23 06/20/23 Unknown History tablet,extended release 24 hr nicotine 7 mg/24 hr daily 1 patch transdermal Q24H 06/20/23 Unknown History transdermal patch pregabalin 150 mg capsule (Lyrica) 150 mg PO DAILY 06/20/23 Unknown History sertraline 100 mg tablet 100 mg PO DAILY 06/20/23 Unknown History terbinafine HCl 1 % topical cream 1 appl topical BID 06/20/23 Unknown History Exam Height,Weight and Vital Signs: Height 5 ft 6 in Weight 90.718 kg Last Vital Signs Temp 97.7 F 07/08/23 09:34 Pulse 96 07/08/23 09:34 Resp 12 07/08/23 09:34 BP 95/53 L 07/08/23 09:34 Pulse Ox 96 07/08/23 09:34 O2 Del Method Room Air 07/08/23 09:34 Airway Mallampati Class: III TM Dist: >3cm Neck ROM: Full Heart: rrr Lungs: cta Assessment and Plan Assessment Anesthesia Assessment: Anesthesia Plan Discussed, Smoking Cess. Discussed (vapes) and Chart Reviewed Final Anesthetic Review Family History of Problems with Anesthesia: No History of Problems with Anesthesia: No NPO: Yes ASA Class: III Final Preanesthetic Review: No Changes in Pt Med Stat, Meds/Allgs Chart Reviewed, Consent Obtained/Reviewed and Anes Risks/Benef Reviewed Patient Risk: Intermediate Procedure Risk: Low Anesthetic Plan Anesthetic Plan: MAC: Disposition: Standard PACU
[2023-07-08 09:49] VITALS: BP 111/79; PULSE 85; RESP 18; TEMP 36.5; O2SAT 97
== END 2023-07-08 10:00 | disposition home or self-care (01) ==
PROVIDERS: PCP Family Medicine; Visit Provider Surgery
PROC: 0DBE8ZZ Excision of Large Intestine, Via Natural or Artificial Opening Endoscopic (ICD-10-PCS; CPT 45380; principal; 2023-07-08 09:00)
DX: Z12.11 Encounter for screening for malignant neoplasm of colon (principal); D12.0 Benign neoplasm of cecum; D12.6 Benign neoplasm of colon, unspecified; K63.5 Polyp of colon; K64.4 Residual hemorrhoidal skin tags; Z86.010 Personal history of colon polyps; I10 Essential (primary) hypertension; J45.909 Unspecified asthma, uncomplicated; Z88.8 Allergy status to other drugs, medicaments and biological substances
CPT/HCPCS: 45380; 88305; 94640; J2250; J2704

== ENCOUNTER → 2023-07-08 06:51 | Outpatient (BNV) | payer MEDICAID, SELFPAY | PROVIDERS: PCP Family Medicine; Visit Provider Surgery | DX: Z12.11 Encounter for screening for malignant neoplasm of colon (principal); K63.5 Polyp of colon; Z86.010 Personal history of colon polyps | CPT/HCPCS: 45380 ==

== ENCOUNTER 2023-07-21 10:14 | Outpatient (AMB) | payer MEDICAID, SELFPAY ==
--- NOTE | 2023-07-21 10:14 | MHC.OFFVIS ---
Intake Visit Reasons: S/P colonoscopy Intake Note: This patient presents for a post-op status post colonoscopy. Patient c/o; reports no complaints status post colonoscopy, reports he has a rash all over his body which is very itchy, reports has x2 Shingles vaccines. Medical Sonographer Required: No Accompanied by: Self / Same As Patient Allergies Iodinated Contrast Media Allergy (Severe, Verified 07/21/23 10:18) Unknown levofloxacin Allergy (Mild, Verified 07/21/23 10:18) Rash ibuprofen [From MOTRIN] Allergy (Unknown, Verified 07/21/23 10:18) KIDNEY ISSUES mushroom Adverse Reaction (Mild, Verified 07/21/23 10:18) VOMITING amlodipine Adverse Reaction (Unknown, Verified 07/21/23 10:18) Swelling Medication List - Last Reconciled 07/21/23 by Stephane Pisano MD acetaminophen (Tylenol) 650 mg (2 x 325 mg) PO Q6H PRN albuterol sulfate 90 mcg/actuation 2 puffs inhalation QID PRN albuterol sulfate 90 mcg/actuation 2 inhalations inhalation Q6H PRN amlodipine 5 mg See Protocol PO DAILY atorvastatin 40 mg PO QAM carvedilol 3.125 mg PO BID cyclobenzaprine 10 mg PO BEDTIME PRN doxycycline hyclate 100 mg PO BID 7 days escitalopram oxalate (Lexapro) 5 mg PO DAILY escitalopram oxalate 10 mg PO DAILY fluticasone propion-salmeterol 115-21 mcg/actuation (Advair HFA) 2 puffs inhalation Q12H 30 days fluticasone propionate 50 mcg/actuation (Flonase Allergy Relief) 1 spray intranasal BID 30 days hydroxyzine pamoate 50 mg PO DAILY PRN hydroxyzine pamoate 25 mg PO DAILY PRN ipratropium-albuterol 20-100 mcg/actuation (Combivent Respimat) 1 puff inhalation BID levofloxacin 750 mg PO DAILY lisinopril 20 mg PO QAM loratadine 10 mg PO DAILY metoprolol succinate ER 12.5 mg PO DAILY montelukast 10 mg PO BEDTIME nicotine 1 patch transdermal Q24H omalizumab (Xolair) 225 mg subcut Q2W 28 days pregabalin (Lyrica) 150 mg PO BID pregabalin (Lyrica) 150 mg PO DAILY sertraline 100 mg PO DAILY sodium,potassium,mag sulfates 17.5-3.13-1.6 gram (Suprep Bowel Prep Kit) DILUTE; drink full amount early evening before AND next morning at least 2 hr before procedure; follow w 960 mL water PO terbinafine HCl 1% 1 appl topical BID HPI HPI S/P colonoscopy: Details: He underwent a colonoscopy last 07/08/2023 for a history of a tubular adenoma. He tolerated the procedure well. He currently denies significant complaints. [facility] Medical History (Updated 07/21/23 @ 10:25 by Stephane Pisano MD) Tubular adenoma Smoker History of rectal polyps Asthma Asthma with exacerbation Hypertension 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 Arthritis Surgical History History of unilateral nephrectomy H/O neck surgery Previous back surgery H/O kidney removal Family History Mother Hypertension Asthma Father Medical history unknown Social History Household Members: None Housing: Apartment Do you presently have visiting nurse or other home services: No Alcohol intake: current Alcohol intake frequency: holidays/special occasions only Alcohol type: beer Patient Tobacco Use Status: Current everyday Tobacco user Tobacco use type: Cigarette Cigarette Packs Per Day: 0 Cigarettes Per Day: 5 Years Smoked: 20 years e-Cigarette/Vaping Use: Former Use Second Hand Smoke Exposure: No service: No Current occupational status: employed [employer] Systems Const Denies chills and Denies fever(s) Card Denies chest pain, Denies dyspnea and Denies dyspnea on exertion Resp Denies cough, Denies dyspnea and Denies dyspnea on exertion GI Denies hematochezia and Denies change in bowel habits Denies hematuria and Denies difficulty urinating Musc Denies back pain and Denies limited range of motion Neuro Denies focal weakness and Denies convulsions Psych Denies depression and Denies mood swings Physical Exam Const General: comfortable and no acute distress Resp Effort & Inspection: normal respiratory effort GI Palpation (GI): Soft to palpation, not firm and nontender Assessment & Plan Assessment & Plan (1) Tubular adenoma: Code(s): D36.9 - Benign neoplasm, unspecified site Category: Medical Plan: Status post colonoscopy. He had multiple polyps removed. There was a flat polyp in the cecum about 1 cm in size. This was removed using multiple bites of the cold forceps. There were 4 other small polyps which were tubular adenomas without any high-grade dysplasia.. I explained to him that in view of the above findings, I would recommend repeating the colonoscopy within 1 year. He understands the plan well. I also advised him the benefits of weight loss because of his high BMI. Coding Level of Care Code Est Pt Level 2 (58283) Diagnoses Tubular adenoma D36.9
== END 2023-07-21 10:26 | disposition home or self-care (01) ==
PROVIDERS: PCP Family Medicine; Referring Provider Family Medicine; Visit Provider Surgery
DX: D12.0 Benign neoplasm of cecum (principal); D12.4 Benign neoplasm of descending colon; D12.5 Benign neoplasm of sigmoid colon; D12.9 Benign neoplasm of anus and anal canal
CPT/HCPCS: 99212

== ENCOUNTER → 2023-07-21 10:14 | Outpatient (BNVA) | payer MEDICAID, SELFPAY | PROVIDERS: PCP Family Medicine; Visit Provider Surgery | DX: D36.9 Benign neoplasm, unspecified site (principal) | CPT/HCPCS: 99212 ==

== ENCOUNTER 2023-08-01 08:31 | Outpatient (AMB) | payer MEDICAID, SELFPAY ==
[2023-08-01 09:05] VITALS: BP 114/64; PULSE 101; O2SAT 97; BMI 33.3
--- NOTE | 2023-08-01 09:05 | MHC.OFFVIS ---
Vital Signs 08/01/23 09:05 Height 5 ft 6 in Weight 206 lb 2.115 oz BMI 33.3 BP 114/64 Blood Pressure Location Lt brachial Position Sitting Pulse 101 H Pulse Source Doppler Pulse Oximetry (%) 97 Oxygen Delivery Method Room Air Intake Visit Reasons: Asthma Allergies Iodinated Contrast Media Allergy (Severe, Verified 08/01/23 09:10) Unknown levofloxacin Allergy (Mild, Verified 08/01/23 09:10) Rash ibuprofen [From MOTRIN] Allergy (Unknown, Verified 08/01/23 09:10) KIDNEY ISSUES mushroom Adverse Reaction (Mild, Verified 08/01/23 09:10) VOMITING amlodipine Adverse Reaction (Unknown, Verified 08/01/23 09:10) Swelling HPI HPI Asthma: Details: 53-year-old gentleman, active 20+ pack-year smoker, followed for allergic asthma asthma/COPD overlap syndrome.?He continues on Xolair, Advair, and albuterol MDI/Combivent with good control of his underlying asthma symptoms. over the last 2 weeks he has been having mild exacerbation secondary to very high pollen count. [facility] Medical History (Updated 07/21/23 @ 10:25 by Stephane Pisano MD) Tubular adenoma Smoker History of rectal polyps Asthma Asthma with exacerbation Hypertension 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 Arthritis Surgical History History of unilateral nephrectomy H/O neck surgery Previous back surgery H/O kidney removal Family History Mother Hypertension Asthma Father Medical history unknown Social History Household Members: None Housing: Apartment Do you presently have visiting nurse or other home services: No Alcohol intake: current Alcohol intake frequency: holidays/special occasions only Alcohol type: beer Patient Tobacco Use Status: Current everyday Tobacco user Tobacco use type: Cigarette Cigarette Packs Per Day: 0 Cigarettes Per Day: 5 Years Smoked: 20 years e-Cigarette/Vaping Use: Former Use Second Hand Smoke Exposure: No service: No Current occupational status: employed [employer] Const Denies daytime sleepiness, Denies excessive sweating, Denies fatigue, Denies fever(s), Denies lethargy, Denies malaise, Denies night sweats, Denies snoring and Denies weight loss Eyes Denies blurry vision and Denies itchy eyes ENT Denies nasal congestion, Denies post nasal drip, Denies sinus pain, Denies sinus pressure and Denies other ( Thrush) Card Denies chest pain, Denies pedal edema, Denies dyspnea, Denies orthopnea and Denies paroxysmal nocturnal dyspnea Resp Reports cough, Denies hemoptysis, Denies excessive phlegm production, Denies dyspnea, Denies snoring and Denies wheezing GI Denies abdominal pain and Denies heartburn Musc Denies myalgias, Denies arthralgias and Denies joint swelling Skin/Breast Denies rash Neuro Denies memory loss and Denies seizure-like activity Psych Denies abnormal sleep pattern, Denies anxiety and Denies memory loss Endo Denies excessive sweating, Denies fatigue and Denies heat intolerance Paul/Lymph Denies easy bruising Aller/Immun Denies itchy eyes, Denies seasonal rhinorrhea and Denies wheezing Physical Exam Vital Signs: Last Vital Signs Pulse 101 H 08/01/23 09:05 BP 114/64 08/01/23 09:05 Pulse Ox 97 08/01/23 09:05 Oxygen Delivery Method Room Air 08/01/23 09:05 BMI result Body Mass Index 33.3 Const General: no acute distress and alert Nutritional Appearance: not obese Orientation/consciousness: Other orientation findings ( oriented) HEENT Head: Yes atraumatic Eyes General: appearance normal, both eyes and all related structures Sclerae: sclerae normal EOM: EOMs intact bilaterally Neck Neck: Yes supple Lymphatic: no lymphadenopathy noted Resp Effort & Inspection: normal respiratory effort and no use of accessory muscles Auscultation: clear to auscultation bilaterally Cardio Rate: regular rate Rhythm: regular rhythm Heart sounds: no gallops, no murmurs and no rubs Skin General skin exam: other ( warm) Extrem General: No clubbing, No cyanosis and No edema Assessment & Plan Assessment & Plan (1) Asthma: Code(s): J45.909 - Unspecified asthma, uncomplicated Category: Medical Plan: Baseline well controlled on current regimen of Xolair, Advair, Combivent, and albuterol MDI. Continue current regimen. (2) Environmental allergies: Code(s): Z91.09 - Other allergy status, other than to drugs and biological substances Category: Medical Plan: Baseline control on Xolair. Now with mild exacerbation secondary to very high seasonal pollen count. Will treat with low-dose prednisone course. Medications: New prednisone Take 2 pills daily for 7 days, then take 1 pill daily for 7 days 10 mg PO DIRECTED 21 tabs 0RF Coding Level of Care Code Est Pt Level 4 (69709) Diagnoses Asthma J45.909 Environmental allergies Z91.09
== END 2023-08-01 09:23 | disposition home or self-care (01) ==
PROVIDERS: PCP Family Medicine; Referring Provider Family Medicine; Visit Provider Internal Medicine Pulmonary Disease
DX: J45.909 Unspecified asthma, uncomplicated (principal); Z91.09 Other allergy status, other than to drugs and biological substances
CPT/HCPCS: 99214

== ENCOUNTER → 2023-08-01 08:31 | Outpatient (BNVA) | payer MEDICAID, SELFPAY | PROVIDERS: PCP Family Medicine; Visit Provider Internal Medicine Pulmonary Disease | DX: J45.909 Unspecified asthma, uncomplicated (principal); Z91.09 Other allergy status, other than to drugs and biological substances | CPT/HCPCS: 99212 ==

== ENCOUNTER 2023-08-26 09:08 | Outpatient (REF) | payer MEDICAID, SELFPAY ==
[2023-08-26 11:39] LABS: Alanine Aminotransferase 30 U/L (0-40); Albumin Level 4.2 g/dL (3.5-5.0); Alkaline Phosphatase 117 U/L (39-117); Aspartate Amino Transferase 25 U/L (5-37); Bilirubin Direct 0.2 mg/dL (0.0-0.5); Bilirubin Total 0.4 mg/dL (0.0-1.0); Cholesterol 183 mg/dL (<200); HDL Cholesterol 78 mg/dL (>40); LDL Cholesterol Calculated 90 mg/dL (<100); Total Protein 7.4 g/dL (6.5-8.0); Triglycerides 78 mg/dL (<150)
== END 2023-08-26 09:09 | disposition home or self-care (01) ==
LOC: HO.HHCL 09:08
PROVIDERS: Visit Provider Family Medicine
DX: E78.5 Hyperlipidemia, unspecified (principal)
CPT/HCPCS: 36415; 80061; 80076

== ENCOUNTER 2023-09-14 13:43 | Outpatient (REF) | payer MEDICAID, SELFPAY ==
--- NOTE | ~2023-09-14 | XR_ITS ---
EXAMINATION: XR SHOULDER, RIGHT CLINICAL INFORMATION: acute neck pain radiating to R upper arm COMPARISON: None available. TECHNIQUE: AP external rotation, Grashey, scapular Y, and axillary views of the right shoulder. FINDINGS: There is moderate acromioclavicular osteoarthritis. Small glenoid osteophytes. Glenohumeral joint space is normal. No fracture or malalignment. Soft tissues are normal with no abnormal calcifications. XR/XR shoulder RT min 2V IMPRESSION: Moderate acromioclavicular and mild glenohumeral osteoarthritis. No acute osseous findings.
--- NOTE | ~2023-09-14 | XR_ITS ---
EXAMINATION: XR CERVICAL SPINE CLINICAL INFORMATION: Neck pain COMPARISON: 03/17/2021 TECHNIQUE: Five views of the cervical spine. FINDINGS: Solid osseous fusion across the interbody spaces at C5-C6 and C6-C7 status post ACDF with interbody grafts, ACDF plate and screw fixation at C5-C6 and a zero-profile construct at C6-C7. Mild degenerative disc disease is again noted at C3-C4 and C4-C5 with endplate osteophytes. Intervertebral disc heights appear well-preserved. There is mild multilevel facet arthropathy, most notably at C3 and C3-C4. Vertebral alignment is normal without spondylolisthesis. Vertebral body heights are normal. No fractures are evident. Prevertebral soft tissues are normal. XR/XR cervical spine 3V IMPRESSION: 1. Solid osseous fusion at C5-C6 and C6-C7 status post ACDF. 2. Mild degenerative disc disease at C3-C4 and C4-C5.
== END 2023-09-14 13:44 | disposition home or self-care (01) ==
LOC: HO.XRAY 13:43
PROVIDERS: PCP Family Medicine; Visit Provider Family Medicine
DX: M54.2 Cervicalgia (principal); M79.621 Pain in right upper arm
CPT/HCPCS: 72040; 73030

== ENCOUNTER 2023-10-17 07:23 | Emergency (ER) | payer MEDICAID, SELFPAY ==
--- NOTE | ~2023-10-17 | XR_ITS ---
EXAMINATION: XR CHEST CLINICAL INFORMATION: Shortness of breath, wheezing COMPARISON: Chest radiograph 06/07/2023 TECHNIQUE: 2 views of the chest were obtained. FINDINGS: The lungs are adequately expanded. No focal consolidation. Mild bilateral bronchial wall thickening. No pleural effusions or pneumothorax. The cardiomediastinal silhouette is within normal limits. No acute osseous abnormality. Cervical spine fusion hardware. XR/XR chest 2V IMPRESSION: Mild bilateral bronchial wall thickening which can be seen with reactive airways disease. No focal consolidation. Electronically signed by: Sanford Estrella MD 10/17/2023 12:37 PM EDT
[2023-10-17 07:41] VITALS: BP 143/88; PULSE 101; RESP 20; TEMP 36.9; O2SAT 97; BMI 32.7
[2023-10-17 08:17] LABS: IDNOW Serial# 08D9AD1C; Strep A Nucleic Acid Negative (Negative)
[2023-10-17 09:06] LABS: Influenza A PCR NEGATIVE (Negative); Influenza B PCR NEGATIVE (Negative); Resp Syncy Virus RNA Qual PCR NEGATIVE (Negative); SARS COV2 PCR INHOUSE NEGATIVE (Negative)
== END 2023-10-17 10:15 | disposition left against medical advice (07) ==
PROVIDERS: Physician Assistant Medical; Emergency Provider Emergency Medicine; PCP Family Medicine
DX: J45.909 Unspecified asthma, uncomplicated (principal); R06.02 Shortness of breath; Z03.818 Encounter for observation for suspected exposure to other biological agents ruled out
CPT/HCPCS: 0241U; 71046; 87651; 99281

== ENCOUNTER 2023-10-18 03:08 | Emergency (ER) | payer MEDICAID, SELFPAY ==
[2023-10-18] VITALS (7 sets, daily range): BP systolic 120–141; BP diastolic 60–90; PULSE 81–101; RESP 18–30; TEMP 36.6–36.7; O2SAT 94–97; BMI 33.9
--- NOTE | ~2023-10-18 | XR_ITS ---
EXAMINATION: XR CHEST CLINICAL INFORMATION: Shortness of breath COMPARISON: Chest x-ray on 10/17/2023 TECHNIQUE: Frontal view of the chest was obtained. FINDINGS: The cardiac silhouette is normal. There is mild diffuse bronchial wall thickening. There are no areas of consolidation. There are no pleural effusions or pneumothoraces. The bones and soft tissues are unremarkable for the patient's age. XR/XR chest 1V IMPRESSION: Bronchial wall thickening may be infectious and/or inflammatory in etiology. Electronically signed by: Barbara Orlando MD 10/18/2023 03:42 AM EDT
[2023-10-18 03:24] LABS: MANUAL DIFF FLAG NO
[2023-10-18] MEDS: methylPREDNISolone Sod Succ 125 MG/2 ML VIAL IVPUSH (03:24)
[2023-10-18 03:28] LABS: Basophils Absolute Auto 0.1 X10*3/uL (0.0-0.2); Basophils Percent Auto 0.8 % (0-2); Eosinophils Absolute Auto 0.5 X10*3/uL (0.0-0.4); Eosinophils Percent Auto 5.5 % (0-4); Hematocrit 42.8 % (42.0-52.0); Hemoglobin 14.8 g/dl (14.0-18.0); Imm Gran Abs Auto 0.06 X10*3/uL (0.00-0.03); Imm Gran Pct Auto 0.7 % (0.0-0.4); Lymphocytes Absolute Auto 2.4 X10*3/uL (1.2-4.9); Lymphocytes Percent Auto 26.5 % (20-40); Mean Corpuscular HGB Conc 34.6 g/dl (31.0-36.0); Mean Corpuscular Hemoglobin 31.5 pg (27.0-33.0); Mean Corpuscular Volume 91.1 fL (80.0-98.0); Mean Platelet Volume 11.2 fL (9.4-12.4); Monocytes Percent Auto 11.1 % (2-11); Neutrophils Absolute Auto 5.1 x10*3/uL (2.0-8.3); Neutrophils Percent Auto 55.4 % (45-73); Platelet Count 231 X10*3/uL (160-400); White Blood Count 9.2 X10*3/uL (4.8-10.8)
[2023-10-18] MEDS: Albuterol Sulfate 5 MG, Albuterol Sulfate (0.083%) 2.5 MG 7.5 MG INHALE ×2 (03:40→07:38)
[2023-10-18 03:41] LABS: Anion Gap 14 (12-20); Blood Urea Nitrogen 24 mg/dL (9-16); Calcium 9.6 mg/dL (8.4-10.2); Carbon Dioxide 21 mmol/L (22-29); Chloride 108 mmol/L (96-108); Creatinine Clr Calc Pharmacy 76.4; Estimated Glomerular Filt Rate > 60; Glucose Random 99 mg/dL (60-115); Sodium 139 mmol/L (135-145)
[2023-10-18 04:16] LABS: Influenza A PCR NEGATIVE (Negative); Influenza B PCR NEGATIVE (Negative); Resp Syncy Virus RNA Qual PCR NEGATIVE (Negative); SARS COV2 PCR INHOUSE NEGATIVE (Negative)
[2023-10-18] MEDS: Albuterol Sulfate 2.5 MG, Albuterol Sulfate (0.083%) 2.5 MG 5 MG INHALE (06:01)
--- NOTE | 2023-10-18 07:22 | PC.NURSE ---
wheezes heard throughout all yu and patient has some chest tightness with coughing, bringing up white clear phlegm.
--- NOTE | 2023-10-18 07:56 | ED_ITS ---
HPI - Asthma General Chief Complaint: Asthma Stated Complaint: diff breathing Time Seen by Provider: 10/18/23 03:16 Source: patient Mode of arrival: ambulatory Limitations: no limitations History of Present Illness ED Provider: Dr. Landa HPI Narrative: patient with 48 hours of increasing shortness of breath, denies fever. states that he has severe COPD MD complaint: shortness of breath Onset (ago): day(s) Severity: moderate Treatments Prior to Arrival: inhaled bronchodilator Related Data Home Medications ?Medication ?Instructions ?Recorded ?Confirmed pregabalin 150 mg capsule (Lyrica) 150 mg PO BID 11/26/19 07/21/23 cyclobenzaprine 10 mg tablet 10 mg PO BEDTIME PRN muscle pain 11/28/22 07/21/23 ipratropium 20 mcg-albuterol 100 1 puff inhalation BID Shortness Of 11/28/22 07/21/23 mcg/actuation mist for inhalation Breath Or Wheezing (Combivent Respimat) escitalopram oxalate 5 mg tablet 5 mg PO DAILY 12/30/22 07/21/23 (Lexapro) lisinopril 20 mg tablet 20 mg PO QAM 12/30/22 07/21/23 loratadine 10 mg tablet 10 mg PO DAILY 05/11/23 07/21/23 atorvastatin 40 mg tablet 40 mg PO QAM 06/20/23 07/21/23 carvedilol 3.125 mg tablet 3.125 mg PO BID 06/20/23 07/21/23 escitalopram oxalate 10 mg tablet 10 mg PO DAILY 06/20/23 07/21/23 hydroxyzine pamoate 25 mg capsule 25 mg PO DAILY PRN anxiety 06/20/23 07/21/23 hydroxyzine pamoate 50 mg capsule 50 mg PO DAILY PRN anxiety 06/20/23 07/21/23 metoprolol succinate 25 mg 12.5 mg PO DAILY 06/20/23 07/21/23 tablet,extended release 24 hr nicotine 7 mg/24 hr daily 1 patch transdermal Q24H 06/20/23 07/21/23 transdermal patch pregabalin 150 mg capsule (Lyrica) 150 mg PO DAILY 06/20/23 07/21/23 sertraline 100 mg tablet 100 mg PO DAILY 06/20/23 07/21/23 terbinafine HCl 1 % topical cream 1 appl topical BID 06/20/23 07/21/23 Previous Rx's ?Medication ?Instructions ?Recorded omalizumab 150 mg subcutaneous 225 mg subcut Q2W 28 days #3 ea 12/11/20 solution (Xolair) acetaminophen 325 mg tablet 650 mg (2 x 325 mg) PO Q6H PRN 08/19/22 (Tylenol) pain #30 tabs albuterol sulfate 90 mcg/actuation 2 puff inhalation QID PRN 09/29/22 aerosol inhaler shortness of breath or wheezing #6.7 grams amlodipine 5 mg tablet 5 mg PO DAILY #30 tabs 12/03/22 albuterol sulfate 90 mcg/actuation 2 inh inhalation Q6H PRN shortness 05/06/23 breath activated powder inhaler of breath or wheezing #1 ea doxycycline hyclate 100 mg capsule 100 mg PO BID cough 7 days #14 caps 05/06/23 sodium,potassium,mag sulfates 17.5 See Rx Instructions PO .COMPLEX 06/20/23 gram-3.13 gram-1.6 gram oral soln #354 mL (Suprep Bowel Prep Kit) levofloxacin 750 mg tablet 750 mg PO DAILY #7 tabs 06/29/23 montelukast 10 mg tablet 10 mg PO BEDTIME #90 tabs 07/21/23 prednisone 10 mg tablet 10 mg PO DIRECTED #21 tabs 08/01/23 fluticasone propionate 50 1 spray intranasal BID #48 mL 10/03/23 mcg/actuation nasal spray,suspension fluticasone propionate 115 2 puff inhalation Q12H 30 days #1 10/17/23 mcg-salmeterol 21 mcg/actuation ea HFA inhaler (Advair HFA) [id number] 2.5 20 ml PO Q4H PRN cough #118 mL 10/18/23 mg-5 mg-50 mg/5 mL oral liquid (Robitussin Cough and Cold CF) prednisone 20 mg tablet 60 mg (3 x 20 mg) PO DAILY #12 tabs 10/18/23 Allergies Allergy/AdvReac Type Severity Reaction Status Date / Time Iodinated Contrast Media Allergy Severe Unknown Verified 10/18/23 03:16 levofloxacin Allergy Mild Rash Verified 10/18/23 03:16 ibuprofen [From MOTRIN] Allergy Unknown KIDNEY Verified 10/18/23 03:16 ISSUES mushroom AdvReac Mild VOMITING Verified 10/18/23 03:16 amlodipine AdvReac Unknown Swelling Verified 10/18/23 03:16 Review of Systems 2 Review of Systems: Yes all other systems are reviewed and are negative Neurologic: Denies Sensory deficit (Neuro) [facility] Past Medical History Medical History Tubular adenoma Smoker History of rectal polyps Asthma Asthma with exacerbation Hypertension 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 Arthritis Surgical History History of unilateral nephrectomy H/O neck surgery Previous back surgery H/O kidney removal Family History Family History Mother Hypertension Asthma Father Medical history unknown Social History Social History Household Members: None Housing: Apartment Do you presently have visiting nurse or other home services: No Alcohol intake: current Alcohol intake frequency: holidays/special occasions only Alcohol type: beer Patient Tobacco Use Status: Current everyday Tobacco user Tobacco use type: Cigarette Cigarette Packs Per Day: 0 Cigarettes Per Day: 5 Years Smoked: 20 years Smoked in Last 30 Days: No e-Cigarette/Vaping Use: Former Use Second Hand Smoke Exposure: No Use of substances other than those prescribed or required for medical reasons: No Advance Directives: Yes Advance Directives Information Provided: Yes Advance Directives on File: No Do you have a plan to hurt others: No Plan service: No Current occupational status: employed Physical Exam 2 Vital Signs: Vital Signs: Last Vital Signs Temp 98.1 F 10/18/23 05:35 Pulse 81 10/18/23 07:55 Resp 18 10/18/23 07:55 BP 125/66 10/18/23 07:55 Pulse Ox 95 10/18/23 07:55 O2 Del Method Room Air 10/18/23 07:55 BMI result Body Mass Index 33.9 Const: Other: very short of breath, audible wheezing Nutritional Appearance: average body habitus Orientation/consciousness: oriented to person and patient oriented x3 Limitations: no limitations HEENT: Head: Yes normal to inspection Ears: external ears normal General nose exam: Normal external nose present Mouth: Normal oral and palatal mucosa present and oropharynx normal Throat: Yes posterior oropharynx normal Eyes: General: appearance normal, both eyes and all related structures Neck: Other: supple Neck: Yes normal visual inspection Chest: Chest palpation & inspection: normal inspection of the chest Resp: Other: diffuse wheezing, tight Cardio: Jugular venous distension: no JVD Rate: regular rate Rhythm: r egular rhythm Heart sounds: S1 normal heart sound present and S2 normal heart sound present GI: Inspection: Yes normal to inspection Palpation (GI): Soft to palpation, nontender and No hepatosplenomegaly present Auscultation: normal bowel sounds : General: Yes no CVA tenderness Back/Spine/Pelvis: Back: no CVA tenderness Skin: General skin exam: no rashes or lesions noted Neuro: General: oriented to person and patient oriented x3 Cranial nerves: Yes CN's II-XII intact bilaterally Motor exam (neuro): 5/5 motor strength present throughout Sensory Exam: No Sensory deficit (Neuro) Extrem: General: Yes normal to inspection Psych: Appearance: grossly normal Course Reevaluation(s) Reevaluation #1: with multiple treatments and iv steroids patient now improve, will dc home on prednisone. Time: 08:00 Reevaluation #2: I spent 40 minutes of critical care, with interventions, assessments, speaking to patient, consultants, and family. Time: 08:00 Medications Administered Discontinued Medications Generic Name Dose Route Start Last Admin Trade Name Freq PRN Reason Stop Dose Admin Albuterol Sulfate 5 mg/ 7.5 mg 10/18/23 03:36 10/18/23 03:40 Albuterol Sulfate 2.5 mg INHALE 10/18/23 03:37 7.5 mg ONCE ONE Administration Albuterol Sulfate 2.5 mg/ 5 mg 10/18/23 05:56 10/18/23 06:01 Albuterol Sulfate 2.5 mg INHALE 10/18/23 05:57 5 mg ONCE ONE Administration Albuterol Sulfate 5 mg/ 7.5 mg 10/18/23 07:26 10/18/23 07:38 Albuterol Sulfate 2.5 mg INHALE 10/18/23 07:27 7.5 mg ONCE ONE Administration Methylprednisolone Sodium Succinate 125 mg 10/18/23 03:18 10/18/23 03:24 Methylprednisolone Sod Succ 125 Mg/2 Ml Vial IVPUSH 10/18/23 03:19 125 mg ONCE ONE Administration Medical Decision Making Differential Diagnosis Differential Diagnoses: The differential diagnosis associated with the presentation includes (COPD exacerbation, pneumonia, covid, flu, rsv) Admission/Observation Consideration of admission/observation: Escalation of care including admission/observation considered (upon arrival patient considered for admission) Lab Data 10/18/23 03:21 10/18/23 03:21 Labs: Lab Results 10/18/23 Range/Units 03:21 WBC 9.2 (4.8-10.8) X10*3/uL RBC 4.70 (4.60-5.80) X10*6/uL Hgb 14.8 (14.0-18.0) g/dl Hct 42.8 (42.0-52.0) % MCV 91.1 (80.0-98.0) fL MCH 31.5 (27.0-33.0) pg MCHC 34.6 (31.0-36.0) g/dl RDW 13.0 (11.0-16.0) % Plt Count 231 (160-400) X10*3/uL MPV 11.2 (9.4-12.4) fL Immature Gran % (Auto) 0.7 H (0.0-0.4) % Neut % (Auto) 55.4 (45-73) % Lymph % (Auto) 26.5 (20-40) % [place] % (Auto) 11.1 H (2-11) % Eos % (Auto) 5.5 H (0-4) % Baso % (Auto) 0.8 (0-2) % Lymph # (Auto) 2.4 (1.2-4.9) X10*3/uL [place] # (Auto) 1.0 (0.1-1.2) X10*3/uL Eos # (Auto) 0.5 H (0.0-0.4) X10*3/uL Baso # (Auto) 0.1 (0.0-0.2) X10*3/uL Abs Immat Gran (auto) 0.06 H (0.00-0.03) X10*3/uL Absolute Neuts (auto) 5.1 (2.0-8.3) x10*3/uL Absolute Nucleated RBC 0.000 (0.0-0.012) X10*3/uL Nucleated RBC % (auto) 0.0 (0.0-0.2) /100WBC Sodium 139 (135-145) mmol/L Potassium 4.0 (3.3-5.1) mmol/L Chloride 108 (96-108) mmol/L Carbon Dioxide 21 L (22-29) mmol/L Anion Gap 14 (12-20) BUN 24 H (9-16) mg/dL Creatinine 1.18 (0.5-1.4) mg/dL Estim Creat Clear Calc 76.4 Estimated GFR > 60 Random Glucose 99 (60-115) mg/dL Calcium 9.6 (8.4-10.2) mg/dL Influenza Type A (PCR) NEGATIVE (Negative) Influenza Type B (PCR) NEGATIVE (Negative) RSV RNA Qual (PCR) NEGATIVE (Negative) SARS-CoV-2 RNA (RT-PCR) NEGATIVE (Negative) Independent Interpretation I performed an independent interpretation of an: Plain X-Ray (no infiltrate) Prescription Management I considered prescription management with: Antibiotic (no evidence of infiltrate on cxr) Chronic Conditions Patient?s care impacted by: Other (copd) Discharge Plan Discharge Clinical Impression: COPD exacerbation Patient Disposition: Home, Self-Care Instructions: COPD (Chronic Obstructive Pulmonary Disease) (ED) Prescriptions: New prednisone 20 mg tablet 60 mg PO DAILY Qty: 12 0RF Robitussin Cough and Cold CF 2.5-5-50 mg/5 mL liquid 20 ml PO Q4H PRN (Reason: cough) Qty: 118 0RF No Action Xolair 150 mg recon soln 225 mg subcut Q2W 28 Days Qty: 3 12RF Rx Instructions: requires multiple injection sites; do not exceed 150 mg per injection site; NEXT DOSE: 11/30/22 levofloxacin 750 mg tablet 750 mg PO DAILY Qty: 7 0RF montelukast 10 mg tablet 10 mg PO BEDTIME Qty: 90 2RF fluticasone propionate 50 mcg/actuation spray,suspension 1 spray intranasal BID Qty: 48 0RF fluticasone propion-salmeterol [Advair HFA] 115-21 mcg/actuation HFA aerosol inhaler 2 puff inhalation Q12H 30 Days Qty: 1 6RF pregabalin [Lyrica] 150 mg Capsule 150 mg PO BID Rx Instructions: CANNOT TAKE WITH TRAMADOL loratadine 10 mg tablet 10 mg PO DAILY acetaminophen [Tylenol] 325 mg tablet 650 mg PO Q6H PRN (Reason: pain) Qty: 30 0RF doxycycline hyclate 100 mg capsule 100 mg PO BID 7 Days Qty: 14 0RF albuterol sulfate 90 mcg/actuation aerosol powdr breath activated 2 inh inhalation Q6H PRN (Reason: shortness of breath or wheezing) Qty: 1 0RF albuterol sulfate 90 mcg/actuation HFA aerosol inhaler 2 puff inhalation QID PRN (Reason: shortness of breath or wheezing) Qty: 6.7 0RF cyclobenzaprine 10 mg tablet 10 mg PO BEDTIME PRN (Reason: muscle pain) Combivent Respimat 20-100 mcg/actuation mist 1 puff inhalation BID amlodipine 5 mg Tablet 5 mg PO DAILY Qty: 30 0RF Protocol: Hold for SBP< HOLD for SBP < : 90 lisinopril 20 mg tablet 20 mg PO QAM escitalopram oxalate [Lexapro] 5 mg tablet 5 mg PO DAILY pregabalin [Lyrica] 150 mg capsule 150 mg PO DAILY atorvastatin 40 mg tablet 40 mg PO QAM escitalopram oxalate 10 mg tablet 10 mg PO DAILY carvedilol 3.125 mg tablet 3.125 mg PO BID hydroxyzine pamoate 50 mg capsule 50 mg PO DAILY PRN (Reason: anxiety) hydroxyzine pamoate 25 mg capsule 25 mg PO DAILY PRN (Reason: anxiety) metoprolol succinate 25 mg tablet extended release 24 hr 12.5 mg PO DAILY nicotine 7 mg/24 hr patch 24 hour 1 patch transdermal Q24H sertraline 100 mg tablet 100 mg PO DAILY terbinafine HCl 1 % cream 1 appl topical BID sodium,potassium,mag sulfates [Suprep Bowel Prep Kit] 17.5-3.13-1.6 gram recon soln See Rx Instructions PO .COMPLEX Qty: 354 0RF Rx Instructions: DILUTE; drink full amount early evening before AND next morning at least 2 hr before procedure; follow w 960 mL water PO prednisone 10 mg tablet 10 mg PO DIRECTED Qty: 21 0RF Rx Instructions: Take 2 pills daily for 7 days, then take 1 pill daily for 7 days Print Language: Bengali
== END 2023-10-18 08:26 | disposition home or self-care (01) ==
PROVIDERS: Emergency Provider Emergency Medicine; PCP Family Medicine
DX: J44.1 Chronic obstructive pulmonary disease with (acute) exacerbation (principal); R06.02 Shortness of breath; Z03.818 Encounter for observation for suspected exposure to other biological agents ruled out; Z79.899 Other long term (current) drug therapy
CPT/HCPCS: 0241U; 71045; 80048; 85025; 94640; 94664; 96374; 99284; 99285; J2919

== ENCOUNTER 2023-12-28 14:14 | Outpatient (AMB) | payer MEDICAID, SELFPAY ==
--- NOTE | 2023-12-28 14:16 | MHC.OFFVIS ---
Vital Signs 12/28/23 14:17 Height 5 ft 6 in Weight 203 lb 14.841 oz BMI 32.9 BP 119/60 Blood Pressure Location Rt brachial Position Sitting Pulse 101 H Pulse Source Doppler Pulse Oximetry (%) 97 Oxygen Delivery Method Room Air Intake Visit Reasons: asthma exacerbation Allergies Iodinated Contrast Media Allergy (Severe, Verified 10/18/23 03:16) Unknown levofloxacin Allergy (Mild, Verified 10/18/23 03:16) Rash ibuprofen [From MOTRIN] Allergy (Unknown, Verified 10/18/23 03:16) KIDNEY ISSUES mushroom Adverse Reaction (Mild, Verified 10/18/23 03:16) VOMITING amlodipine Adverse Reaction (Unknown, Verified 10/18/23 03:16) Swelling HPI HPI asthma exacerbation: Details: 53-year-old gentleman, active 20+ pack-year smoker, followed for allergic asthma asthma/COPD overlap syndrome.?He continues on Xolair, Advair, and albuterol MDI/Combivent with baseline good control of his underlying asthma symptoms. Today he comes in for sick visit complaining of an acute exacerbation symptomatic with cough productive of sputum and wheezing. 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 Arthritis Surgical History History of unilateral nephrectomy H/O neck surgery Previous back surgery H/O kidney removal Family History Mother Hypertension Asthma Father Medical history unknown Social History Household Members: None Housing: Apartment Do you presently have visiting nurse or other home services: No Alcohol intake: current Alcohol intake frequency: holidays/special occasions only Alcohol type: beer Patient Tobacco Use Status: Current everyday Tobacco user Tobacco use type: Cigarette Cigarette Packs Per Day: 0 Cigarettes Per Day: 5 Years Smoked: 20 years e-Cigarette/Vaping Use: Former Use Second Hand Smoke Exposure: No service: No Current occupational status: employed Review of Systems Const Denies daytime sleepiness, Denies excessive sweating, Denies fatigue, Denies fever(s), Denies lethargy, Denies malaise, Denies night sweats, Denies snoring and Denies weight loss Eyes Denies blurry vision and Denies itchy eyes ENT Denies nasal congestion, Denies post nasal drip, Denies sinus pain, Denies sinus pressure and Denies other ( Thrush) Card Denies chest pain, Denies pedal edema, Denies dyspnea, Denies orthopnea and Denies paroxysmal nocturnal dyspnea Resp Reports cough, Denies hemoptysis, Reports excessive phlegm production, Denies dyspnea, Denies snoring and Reports wheezing GI Denies abdominal pain and Denies heartburn Musc Denies myalgias, Denies arthralgias and Denies joint swelling Skin/Breast Denies rash Neuro Denies memory loss and Denies seizure-like activity Psych Denies abnormal sleep pattern, Denies anxiety and Denies memory loss Endo Denies excessive sweating, Denies fatigue and Denies heat intolerance Paul/Lymph Denies easy bruising Aller/Immun Denies itchy eyes, Denies seasonal rhinorrhea and Reports wheezing Physical Exam Vital Signs: Last Vital Signs Pulse 101 H 12/28/23 14:17 BP 119/60 12/28/23 14:17 Pulse Ox 97 12/28/23 14:17 Oxygen Delivery Method Room Air 12/28/23 14:17 BMI result Body Mass Index 32.9 Const General: no acute distress and alert Nutritional Appearance: not obese Orientation/consciousness: Other orientation findings ( oriented) HEENT Head: Yes atraumatic Eyes General: appearance normal, both eyes and all related structures Sclerae: sclerae normal EOM: EOMs intact bilaterally Neck Neck: Yes supple Lymphatic: no lymphadenopathy noted Resp Effort & Inspection: normal respiratory effort and no use of accessory muscles Auscultation: wheezes expiratory wheezes (Bilateral) Cardio Rate: regular rate Rhythm: regular rhythm Heart sounds: no gallops, no murmurs and no rubs Skin General skin exam: other ( warm) Extrem General: No clubbing, No cyanosis and No edema Assessment & Plan Assessment & Plan (1) Environmental allergies: Code(s): Z91.09 - Other allergy status, other than to drugs and biological substances Category: Medical Plan: Well controlled on Xolair. Continue current regimen. (2) Asthma: Code(s): J45.909 - Unspecified asthma, uncomplicated Category: Medical Plan: Baseline controlled on Xolair, Advair, duo nebs, albuterol MDI. Now with an acute exacerbation, will treat with a course of azithromycin and prednisone. Orders: Orders XR chest 2V Today R05.9 - Cough, unspecified Medications: New prednisone 40 mg (2 x 20 mg) PO DAILY 10 tabs 0RF azithromycin For 250 mg dose pack: take 500 mg today (day 1), then 250 mg for 4 days (days 2-5) PO 6 tabs 0RF Coding Level of Care Code Est Pt Level 4 (96839) Complex EM visit Add On G2211 Diagnoses Environmental allergies Z91.09 Asthma J45.909
[2023-12-28 14:17] VITALS: BP 119/60; PULSE 101; O2SAT 97; BMI 32.9
== END 2023-12-28 14:34 | disposition home or self-care (01) ==
LOC: HO.HPS 14:14
PROVIDERS: PCP Family Medicine; Visit Provider Internal Medicine Pulmonary Disease
DX: Z91.09 Other allergy status, other than to drugs and biological substances (principal); J45.909 Unspecified asthma, uncomplicated
CPT/HCPCS: 99214

== ENCOUNTER 2023-12-28 14:14 | Outpatient (REF) | payer MEDICAID, SELFPAY ==
--- NOTE | ~2023-12-28 | XR_ITS ---
EXAMINATION: XR CHEST CLINICAL INFORMATION: R05.9 - Cough, unspecified COMPARISON: Chest x-ray on 10/18/2023 TECHNIQUE: 2 views of the chest were obtained. FINDINGS: The cardiac silhouette is normal. There is mild diffuse bronchial wall thickening. There are no areas of consolidation. There are no pleural effusions or pneumothoraces. The bones and soft tissues are unremarkable for the patient's age. XR/XR chest 2V IMPRESSION: Bronchial wall thickening may be infectious and/or inflammatory in etiology. Electronically signed by: Barbara Orlando MD 01/21/2024 07:51 AM EST
== END 2023-12-28 14:15 | disposition home or self-care (01) ==
LOC: HO.XRAY 14:14
PROVIDERS: PCP Family Medicine; Visit Provider Internal Medicine Pulmonary Disease
DX: R05.9 Cough, unspecified (principal); J45.909 Unspecified asthma, uncomplicated; Z87.891 Personal history of nicotine dependence
CPT/HCPCS: 71046; 99212

== ENCOUNTER 2024-01-21 06:34 | Emergency (ER) | payer MEDICAID, SELFPAY ==
--- NOTE | ~2024-01-21 | XR_ITS ---
EXAMINATION: XR CHEST CLINICAL INFORMATION: dyspnea COMPARISON: Chest x-ray on 12/28/2023 TECHNIQUE: 2 views of the chest were obtained. FINDINGS: No significant abnormality is noted involving the heart, lungs, mediastinum, bony thorax or soft tissues. XR/XR chest 2V IMPRESSION: Unremarkable examination. Electronically signed by: Barbara Orlando MD 01/21/2024 07:51 AM EST
[2024-01-21 06:35] VITALS: BP 150/95; PULSE 99; RESP 26; TEMP 36.3; O2SAT 96; BMI 33.8
--- NOTE | 2024-01-21 06:48 | ED_ITS ---
HPI - General Adult General Chief complaint: Dyspnea Stated complaint: diff breathing, asthmatic Time Seen by Provider: 01/21/24 06:48 Source: patient Mode of arrival: ambulatory Limitations: no limitations History of Present Illness ED Provider: Carolina HPI narrative: Patient is a 53-year-old male with history of asthma, current smoker presenting with complaint of shortness of breath for the past 2 days. Non-productive cough, though reports he feels as though he has sputum to clear. Denies fevers, chest pain, palpitations. Has been using inhaler and nebulizer with little relief. Only smoked 2 cigarettes yesterday as he felt too short of breath to smoke normal amount. MD complaint: shortness of breath Onset (ago): day(s) Associated symptoms: cough Treatments prior to arrival: other Related Data Home Medications ?Medication ?Instructions ?Recorded ?Confirmed pregabalin 150 mg capsule (Lyrica) 150 mg PO BID 11/26/19 07/21/23 cyclobenzaprine 10 mg tablet 10 mg PO BEDTIME PRN muscle pain 11/28/22 07/21/23 ipratropium 20 mcg-albuterol 100 1 puff inhalation BID Shortness Of 11/28/22 07/21/23 mcg/actuation mist for inhalation Breath Or Wheezing (Combivent Respimat) escitalopram oxalate 5 mg tablet 5 mg PO DAILY 12/30/22 07/21/23 (Lexapro) lisinopril 20 mg tablet 20 mg PO QAM 12/30/22 07/21/23 loratadine 10 mg tablet 10 mg PO DAILY 05/11/23 07/21/23 atorvastatin 40 mg tablet 40 mg PO QAM 06/20/23 07/21/23 carvedilol 3.125 mg tablet 3.125 mg PO BID 06/20/23 07/21/23 escitalopram oxalate 10 mg tablet 10 mg PO DAILY 06/20/23 07/21/23 hydroxyzine pamoate 25 mg capsule 25 mg PO DAILY PRN anxiety 06/20/23 07/21/23 hydroxyzine pamoate 50 mg capsule 50 mg PO DAILY PRN anxiety 06/20/23 07/21/23 metoprolol succinate 25 mg 12.5 mg PO DAILY 06/20/23 07/21/23 tablet,extended release 24 hr nicotine 7 mg/24 hr daily 1 patch transdermal Q24H 06/20/23 07/21/23 transdermal patch pregabalin 150 mg capsule (Lyrica) 150 mg PO DAILY 06/20/23 07/21/23 sertraline 100 mg tablet 100 mg PO DAILY 06/20/23 07/21/23 terbinafine HCl 1 % topical cream 1 appl topical BID 06/20/23 07/21/23 Previous Rx's ?Medication ?Instructions ?Recorded omalizumab 150 mg subcutaneous 225 mg subcut Q2W 28 days #3 ea 12/11/20 solution (Xolair) acetaminophen 325 mg tablet 650 mg (2 x 325 mg) PO Q6H PRN 08/19/22 (Tylenol) pain #30 tabs albuterol sulfate 90 mcg/actuation 2 puff inhalation QID PRN 09/29/22 aerosol inhaler shortness of breath or wheezing #6.7 grams amlodipine 5 mg tablet 5 mg PO DAILY #30 tabs 12/03/22 albuterol sulfate 90 mcg/actuation 2 inh inhalation Q6H PRN shortness 05/06/23 breath activated powder inhaler of breath or wheezing #1 ea doxycycline hyclate 100 mg capsule 100 mg PO BID cough 7 days #14 caps 05/06/23 sodium,potassium,mag sulfates 17.5 See Rx Instructions PO .COMPLEX 06/20/23 gram-3.13 gram-1.6 gram oral soln #354 mL (Suprep Bowel Prep Kit) levofloxacin 750 mg tablet 750 mg PO DAILY #7 tabs 06/29/23 montelukast 10 mg tablet 10 mg PO BEDTIME #90 tabs 07/21/23 fluticasone propionate 50 1 spray intranasal BID #48 mL 10/03/23 mcg/actuation nasal spray,suspension fluticasone propionate 115 2 puff inhalation Q12H 30 days #1 10/17/23 mcg-salmeterol 21 mcg/actuation ea HFA inhaler (Advair HFA) [id number] 2.5 20 ml PO Q4H PRN cough #118 mL 10/18/23 mg-5 mg-50 mg/5 mL oral liquid (Robitussin Cough and Cold CF) azithromycin 250 mg tablet See Rx Instructions PO .COMPLEX #6 12/28/23 tabs prednisone 20 mg tablet 40 mg (2 x 20 mg) PO DAILY #10 tabs 12/28/23 albuterol sulfate 2.5 mg/3 mL 2.5 mg (3 mL) inhalation Q4-6H PRN 01/21/24 (0.083 %) solution for nebulization shortness of breath or wheezing #75 mL azithromycin 250 mg tablet See Rx Instructions PO .COMPLEX #6 01/21/24 tabs benzonatate 100 mg capsule 100 mg PO TID PRN cough #20 caps 01/21/24 prednisone 20 mg tablet 40 mg (2 x 20 mg) PO DAILY #10 tabs 01/21/24 Allergies Allergy/AdvReac Type Severity Reaction Status Date / Time Iodinated Contrast Media Allergy Severe Unknown Verified 01/21/24 06:39 levofloxacin Allergy Mild Rash Verified 01/21/24 06:39 ibuprofen [From MOTRIN] Allergy Unknown KIDNEY Verified 01/21/24 06:39 ISSUES mushroom AdvReac Mild VOMITING Verified 01/21/24 06:39 amlodipine AdvReac Unknown Swelling Verified 01/21/24 06:39 Review of Systems 2 Review of Systems: As per hPI. 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 Arthritis Surgical History History of unilateral nephrectomy H/O neck surgery Previous back surgery H/O kidney removal Family History Family History Mother Hypertension Asthma Father Medical history unknown Social History Social History Household Members: None Housing: Apartment Do you presently have visiting nurse or other home services: No Alcohol intake: former Patient Tobacco Use Status: Current everyday Tobacco user Tobacco use type: Cigarette Cigarette Packs Per Day: 0 Cigarettes Per Day: 5 Years Smoked: 20 years Smoked in Last 30 Days: Yes e-Cigarette/Vaping Use: Former Use Second Hand Smoke Exposure: No Use of substances other than those prescribed or required for medical reasons: No Advance Directives: No Advance Directives Information Provided: No Do you have a plan to hurt others: No Plan service: No Current occupational status: employed Physical Exam ED Vital Signs: Vital Signs - 24 hr 01/21/24 06:35 01/21/24 07:40 01/21/24 08:46 Temperature 97.3 F Pulse Rate 99 103 H 78 Respiratory Rate 26 H 24 H 19 Blood Pressure 150/95 H Pulse Oximetry 96 Oxygen Delivery Method Room Air BMI result Body Mass Index 33.8 Vital signs have been reviewed and appear to be correct. Blood pressure elevated. Heart rate normal. Respiratory rate mildly tachypneic. Temperature normal. Oxygen saturation normal. Const General: cooperative, healthy appearing and no acute distress Orientation/consciousness: oriented to person, oriented to place, oriented to time and patient oriented x3 Limitations: no limitations HENMT Head: Yes normocephalic and Yes atraumatic Ears: external ears normal General nose exam: Normal external nose present Face and sinus: Yes face symmetric Mouth: oropharynx normal and moist mucous membranes Throat: Yes uvula midline Eyes Pupils: Equal, round and reactive pupils present Neck Neck: Yes normal visual inspection and Yes supple Resp Effort & Inspection: normal respiratory effort and able to speak in complete sentences Auscultation: wheezes expiratory wheezes, inspiratory wheezes and throughout Cardio Rate: regular rate Rhythm: regular rhythm Heart sounds: S1 normal heart sound present and S2 normal heart sound present GI Palpation (GI): Soft to palpation and nontender Auscultation: normoactive bowel sounds General: Yes no CVA tenderness Back/Spine/Pelvis Back: no CVA tenderness Skin General skin exam: elasticity normal and turgor normal Neuro General: oriented to person, oriented to place, oriented to time, patient oriented x3, moves all extremities, no focal motor deficits and CN's II-XI intact bilaterally Cranial nerves: Yes Equal, round and reactive pupils present Cognition (Neuro): normal cognition Extrem General: Yes full ROM, Yes no pedal edema and Yes no calf tenderness Psych Mental Status: mental status grossly normal Affect: normal affect Thought process: Normal thought process present Medications Administered Discontinued Medications Generic Name Dose Route Start Last Admin Trade Name Freq PRN Reason Stop Dose Admin Albuterol Sulfate 2.5 mg/ 5 mg 01/21/24 08:45 01/21/24 09:10 Albuterol Sulfate 2.5 mg INHALE 01/21/24 09:26 Not Given Q20M [facility] Albuterol Sulfate 5 mg/ 0 mg 01/21/24 07:32 01/21/24 07:39 Albuterol/Ipratropium 3 ml INHALE 01/21/24 07:33 7.5 each ONCE ONE Administration Magnesium Sulfate 2 gm in 50 mls @ 25 mls/hr 01/21/24 06:51 01/21/24 09:27 Magnesium Sulfate/H2o IV 01/21/24 08:50 Infused ONCE ONE Infusion Methylprednisolone Sodium Succinate 60 mg 01/21/24 06:51 01/21/24 07:04 Methylprednisolone Sod Succ 125 Mg/2 Ml Vial IVPUSH 01/21/24 06:52 60 mg ONCE ONE Administration Medical Decision Making Medical Decision Making [facility] Narrative: Patient is a 53-year-old male with history of asthma, current smoker presenting with complaint of shortness of breath for the past 2 days. On exam patient is awake, A+Ox3, BP elevated, mildly tachypneic, VS otherwise, WNL, afebrile, normal neurological exam without focal deficits, physical exam findings as above. Given reported symptoms and physical exam findings, initial differential includes asthma exacerbation, bronchitis, pneumonia, viral illness, covid, flu, rsv. Labs notable for slight leukocytosis, otherwise unremarkable. X-ray chest notable for no evidence of pneumonia. My interpretation is in agreement with the radiologist's interpretation. Viral serology negative. Patient still has some expiratory wheezing after two breathing treatments here, but work of breathing has improved. Able to maintain adequate saturation without increased work of breathing on ambulation. Feel patient is stable for discharge home and patient is agreeable with this. He is requesting albuterol for his nebulizer. Return precautions discussed. Follow up with PCP. Patient verbalized understanding of and agreement with plan. Differential Diagnosis Differential Diagnoses: The differential diagnosis associated with the presentation includes As per [facility] Admission/Observation Consideration of admission/observation: Escalation of care including admission/observation considered Patient would have been admitted to the hospital had their work up had any findings where hospital admission was appropriate and their clinical presentation warranted hospital admission. Lab Data [facility] Lab Attestation statement: I reviewed the patient's lab results. As per [facility] 01/21/24 06:46 01/21/24 06:46 Labs: Lab Results 01/21/24 Range/Units 06:46 WBC 10.9 H (4.8-10.8) X10*3/uL RBC 4.77 (4.60-5.80) X10*6/uL Hgb 14.8 (14.0-18.0) g/dl Hct 44.0 (42.0-52.0) % MCV 92.2 (80.0-98.0) fL MCH 31.0 (27.0-33.0) pg MCHC 33.6 (31.0-36.0) g/dl RDW 13.1 (11.0-16.0) % Plt Count 236 (160-400) X10*3/uL MPV 10.8 (9.4-12.4) fL Immature Gran % (Auto) 1.1 H (0.0-0.4) % Neut % (Auto) 82.5 H (45-73) % Lymph % (Auto) 8.4 L (20-40) % [place] % (Auto) 7.6 (2-11) % Eos % (Auto) 0.1 (0-4) % Baso % (Auto) 0.3 (0-2) % Lymph # (Auto) 0.9 L (1.2-4.9) X10*3/uL [place] # (Auto) 0.8 (0.1-1.2) X10*3/uL Eos # (Auto) 0.0 (0.0-0.4) X10*3/uL Baso # (Auto) 0.0 (0.0-0.2) X10*3/uL Abs Immat Gran (auto) 0.12 H (0.00-0.03) X10*3/uL Absolute Neuts (auto) 9.0 H (2.0-8.3) x10*3/uL Absolute Nucleated RBC 0.000 (0.0-0.012) X10*3/uL Nucleated RBC % (auto) 0.0 (0.0-0.2) /100WBC Sodium 140 (135-145) mmol/L Potassium 4.1 (3.3-5.1) mmol/L Chloride 107 (96-108) mmol/L Carbon Dioxide 18 L (22-29) mmol/L Anion Gap 19 (12-20) BUN 19 H (9-16) mg/dL Creatinine 1.01 (0.5-1.4) mg/dL Estim Creat Clear Calc 89.2 Estimated GFR > 60 Random Glucose 128 H (60-115) mg/dL Calcium 9.6 (8.4-10.2) mg/dL Total Bilirubin 0.6 (0.0-1.0) mg/dL AST 21 (5-37) U/L ALT 26 (0-40) U/L Alkaline Phosphatase 114 (39-117) U/L Total Protein 7.5 (6.5-8.0) g/dL Albumin 4.3 (3.5-5.0) g/dL Influenza Type A (PCR) NEGATIVE (Negative) Influenza Type B (PCR) NEGATIVE (Negative) RSV RNA Qual (PCR) NEGATIVE (Negative) SARS-CoV-2 RNA (RT-PCR) NEGATIVE (Negative) Independent Interpretation I performed an independent interpretation of an: Plain X-Ray Interpretation: No evidence of pneumonia on cxr. Radiology Impression Discussion of test interpretation with radiology: I have reviewed the radiologist's reading. Radiologist Impression: XR/XR chest 2V IMPRESSION: Unremarkable examination. External Record Review External record reviewed: Inpatient record, Office record and Outpatient record Prescription Management I considered prescription management with: Antibiotic and Other Discharge Plan Discharge Clinical Impression: Asthma with exacerbation Patient Disposition: Home, Self-Care Instructions: Asthma (DC) Additional Instructions: You were evaluated in the emergency department today for cough, wheezing and shortness of breath. You are being treated for an asthma exacerbation with a short course of steroids to decrease inflammation. You are being prescribed an antibiotic, complete the full course as prescribed. You are being prescribed benzonatate for cough which you can use every 8 hours as needed, PLEASE BE SURE TO KEEP THIS MEDICATION OUT OF THE REACH OF CHILDREN. You are being prescribed albuterol for your nebulizer. Please follow-up with your primary care provider this week. Return to the emergency department if you develop worsening shortness of breath, difficulty breathing, chest pain, fever not improved with Tylenol or ibuprofen, or any other concerning symptoms. Prescriptions: New azithromycin 250 mg tablet See Rx Instructions .ROUTE .COMPLEX Qty: 6 0RF Rx Instructions: For 250 mg dose pack: take 500 mg today (day 1), then 250 mg for 4 days (days 2-5) prednisone 20 mg tablet 40 mg PO DAILY Qty: 10 0RF benzonatate 100 mg capsule 100 mg PO TID PRN (Reason: cough) Qty: 20 0RF albuterol sulfate 2.5 mg /3 mL (0.083 %) solution for nebulization 2.5 mg inhalation Q4-6H PRN (Reason: shortness of breath or wheezing) Qty: 75 0RF No Action Xolair 150 mg recon soln 225 mg subcut Q2W 28 Days Qty: 3 12RF Rx Instructions: requires multiple injection sites; do not exceed 150 mg per injection site; NEXT DOSE: 11/30/22 levofloxacin 750 mg tablet 750 mg PO DAILY Qty: 7 0RF montelukast 10 mg tablet 10 mg PO BEDTIME Qty: 90 2RF fluticasone propionate 50 mcg/actuation spray,suspension 1 spray intranasal BID Qty: 48 0RF fluticasone propion-salmeterol [Advair HFA] 115-21 mcg/actuation HFA aerosol inhaler 2 puff inhalation Q12H 30 Days Qty: 1 6RF pregabalin [Lyrica] 150 mg Capsule 150 mg PO BID Rx Instructions: CANNOT TAKE WITH TRAMADOL loratadine 10 mg tablet 10 mg PO DAILY acetaminophen [Tylenol] 325 mg tablet 650 mg PO Q6H PRN (Reason: pain) Qty: 30 0RF doxycycline hyclate 100 mg capsule 100 mg PO BID 7 Days Qty: 14 0RF albuterol sulfate 90 mcg/actuation aerosol powdr breath activated 2 inh inhalation Q6H PRN (Reason: shortness of breath or wheezing) Qty: 1 0RF albuterol sulfate 90 mcg/actuation HFA aerosol inhaler 2 puff inhalation QID PRN (Reason: shortness of breath or wheezing) Qty: 6.7 0RF cyclobenzaprine 10 mg tablet 10 mg PO BEDTIME PRN (Reason: muscle pain) Combivent Respimat 20-100 mcg/actuation mist 1 puff inhalation BID amlodipine 5 mg Tablet 5 mg PO DAILY Qty: 30 0RF Protocol: Hold for SBP< HOLD for SBP < : 90 Robitussin Cough and Cold CF 2.5-5-50 mg/5 mL liquid 20 ml PO Q4H PRN (Reason: cough) Qty: 118 0RF lisinopril 20 mg tablet 20 mg PO QAM escitalopram oxalate [Lexapro] 5 mg tablet 5 mg PO DAILY pregabalin [Lyrica] 150 mg capsule 150 mg PO DAILY atorvastatin 40 mg tablet 40 mg PO QAM escitalopram oxalate 10 mg tablet 10 mg PO DAILY carvedilol 3.125 mg tablet 3.125 mg PO BID hydroxyzine pamoate 50 mg capsule 50 mg PO DAILY PRN (Reason: anxiety) hydroxyzine pamoate 25 mg capsule 25 mg PO DAILY PRN (Reason: anxiety) metoprolol succinate 25 mg tablet extended release 24 hr 12.5 mg PO DAILY nicotine 7 mg/24 hr patch 24 hour 1 patch transdermal Q24H sertraline 100 mg tablet 100 mg PO DAILY terbinafine HCl 1 % cream 1 appl topical BID sodium,potassium,mag sulfates [Suprep Bowel Prep Kit] 17.5-3.13-1.6 gram recon soln See Rx Instructions PO .COMPLEX Qty: 354 0RF Rx Instructions: DILUTE; drink full amount early evening before AND next morning at least 2 hr before procedure; follow w 960 mL water PO prednisone 20 mg tablet 40 mg PO DAILY Qty: 10 0RF azithromycin 250 mg tablet See Rx Instructions PO .COMPLEX Qty: 6 0RF Rx Instructions: For 250 mg dose pack: take 500 mg today (day 1), then 250 mg for 4 days (days 2-5) PO Print Language: Czech
[2024-01-21 06:52] LABS: Basophils Percent Auto 0.3 % (0-2); Eosinophils Percent Auto 0.1 % (0-4); Hemoglobin 14.8 g/dl (14.0-18.0); Imm Gran Abs Auto 0.12 X10*3/uL (0.00-0.03); Imm Gran Pct Auto 1.1 % (0.0-0.4); Lymphocytes Absolute Auto 0.9 X10*3/uL (1.2-4.9); Lymphocytes Percent Auto 8.4 % (20-40); MANUAL DIFF FLAG NO; Mean Corpuscular HGB Conc 33.6 g/dl (31.0-36.0); Mean Corpuscular Volume 92.2 fL (80.0-98.0); Mean Platelet Volume 10.8 fL (9.4-12.4); Monocytes Absolute Auto 0.8 X10*3/uL (0.1-1.2); Monocytes Percent Auto 7.6 % (2-11); Neutrophils Percent Auto 82.5 % (45-73); Platelet Count 236 X10*3/uL (160-400); Red Blood Count 4.77 X10*6/uL (4.60-5.80); Red Cell Distribution Width 13.1 % (11.0-16.0); White Blood Count 10.9 X10*3/uL (4.8-10.8)
[2024-01-21] MEDS: methylPREDNISolone Sod Succ 125 MG/2 ML VIAL 60 MG IVPUSH (07:04)
[2024-01-21] MEDS: Magnesium Sulfate/H2O 2 GM/50 ML PIGGYBACK IV (07:05)
[2024-01-21 07:06] LABS: Alanine Aminotransferase 26 U/L (0-40); Albumin Level 4.3 g/dL (3.5-5.0); Alkaline Phosphatase 114 U/L (39-117); Anion Gap 19 (12-20); Aspartate Amino Transferase 21 U/L (5-37); Bilirubin Total 0.6 mg/dL (0.0-1.0); Blood Urea Nitrogen 19 mg/dL (9-16); Calcium 9.6 mg/dL (8.4-10.2); Carbon Dioxide 18 mmol/L (22-29); Chloride 107 mmol/L (96-108); Creatinine Clr Calc Pharmacy 89.2; Estimated Glomerular Filt Rate > 60; Glucose Random 128 mg/dL (60-115); Potassium 4.1 mmol/L (3.3-5.1); Sodium 140 mmol/L (135-145); Total Protein 7.5 g/dL (6.5-8.0)
[2024-01-21 07:29] LABS: Influenza A PCR NEGATIVE (Negative); Influenza B PCR NEGATIVE (Negative); Resp Syncy Virus RNA Qual PCR NEGATIVE (Negative); SARS COV2 PCR INHOUSE NEGATIVE (Negative)
--- OUTSIDE RECORDS SUMMARY | 2024-01-21 07:38 | XMS_ITS | Continuity of Care Document ---
Author Organization [facility] Address [address] [place] [phone]- Care Team Providers Care Grades 6 Through 8 Teacher Name Role Phone Mirtha Lunsford MD Primary Care Physician [place] [facility] [place] 09[place]07[place]22 - 10/07/22 [facility] [address] [place] [phone]- Allergies, Adverse Reactions, Alerts Substance Reaction Severity Status Other Food Allergy n/v mushrooms Persistent Severe Active Motrin avoids due to having single kidney Active Immunizations Given and Recorded Vaccine Date Status Refusal Reason pneumococcal 23-valent vaccine 1 06/25/14 Given 1Early/Late Reason: Wan to Standard Admin Times Medications Acetaminophen = 500 mg, 0 Refills, Maintenance, 06/23/18 9:02:30 EDT Start Date: 06/23/18 Status: Ordered Albuterol 0.083% Inhalation Solution 2.5 mg, Inhalation, Every 4 hours, PRN, Maintenance, 06/25/14 13:24:17 EDT Start Date: 06/25/14 Status: Ordered amLODIPine 5 mg oral tablet 5 mg, 1, tablet, By Mouth, Daily, Refills 0, Maintenance, 04/27/21 14:53:00 EST, Partial fill upon patient request if the prescription is for a schedule II opioid drug. Start Date: 04/27/21 Status: Ordered anxiety and depression pills anxiety and depression pills, Refills 0, Maintenance, 04/27/21 15:00:00 EST, Supply Start Date: 04/27/21 Status: Ordered Combivent Respimat 20 mcg-100 mcg/inh inhalation aerosol 1 puffs, Inhalation, 4 times a day, PRN Wheezing/Shortness of Breath, INHALE 1 PUFF 4 TIMES A DAY MAY TAKE ADDITIONAL PUFFS NEEDED NOT TO EXCEED 6 PUFFS IN 24 HOURS Start Date: 12/28/17 Status: Ordered Injections for breathing every two weeks Injections for breathing every two weeks, Refills 0, Maintenance, 04/27/21 14:54:00 EST, Supply Start Date: 04/27/21 Status: Ordered Lyrica 150 mg oral capsule 1 capsule = 150 mg, By Mouth, 2 times a day, 0 Refills, Maintenance, 02/25/16 11:55:59 EST, Capsule Start Date: 02/25/16 Status: Ordered oxyCODONE 5 mg oral tablet PLEASE SEE ATTACHED FOR DETAILED DIRECTIONS Start Date: 10/04/22 Status: Ordered predniSONE 20 mg oral tablet TAKE 2 TABLETS ORALLY DAILY FOR 5 DAYS Start Date: 10/04/22 Status: Ordered Xopenex HFA 45 mcg/inh inhalation aerosol 2 puffs, Inhalation, 2 times a day, 0 Refills, Maintenance, 06/25/14 13:25:14 EDT, Aerosol Start Date: 06/25/14 Status: Ordered Problem List Condition Confirmation Course Effective Dates Status Health St atus Informant Asthma flare Confirmed Active Sacroiliac joint dysfunction Confirmed Active Social History Social History Type Response Smoking Status 5-9 cigarettes (betw een 1/4 to 1/2 pack)/day in last 30 days entered on: 12/28/17 Sex Patient Care team information Care Team Personnel Name: Mirtha Lunsford MD Position: [facility] Outreach Member Role: PCP Address: Address: [address] [place] [address] [place] [phone]- Name: Ashley Duran RN Position: [facility] ED RN W/OE and Tasks Member Role: Primary Care Nurse Name: Rashaun Cortez Position: [facility] TA Member Role: Lifetime Consulting Physician Name: Junito Kent RN Position: [facility] RN Member Role: Primary Care Nurse Care Team Related Persons Name: ARIEL VILLEGAS Address: home [address] [place] [address] Name: MICA RM Address: home [address] [place] [id number]
[2024-01-21] MEDS: Albuterol Sulfate 5 MG, Albuterol/Iprat 2.5/0.5MG 3 ML 3 ML INHALE (07:39)
--- OUTSIDE RECORDS SUMMARY | 2024-01-21 07:39 | XMS_ITS | Continuity of Care Document ---
Author Organization [facility] Address [address] [place] [phone]- Care Team Providers Care Access Coordinator Name Role Phone [place] Mirtha SOSA Primary Care Physician Encounter [facility] [place] Date(s): 10/04/22 - 11/03/22 [facility] [address] [place] [phone]- Attending Physician: Dodie Venegas Admitting Physician: Dodie Venegas Referring Physician: Dodie Venegas Referring Physician: Sherwin Jacob Allergies, Adverse Reactions, Alerts Substance Reaction Severity Status Motrin avoids due to having single kidney Active Other Food Allergy n/v mushrooms Persistent Severe Active Immunizations Given and Recorded Vaccine Date [...] Care team information Care Team Personnel Name: Jonn SOSA , Mirtha Landaverde Position: [facility] Outreach Member Role: PCP Address: Address: [address] [place] [address] [place] [phone]- Name: Ashley Duran RN Position: [facility] ED RN W/OE and Tasks Member Role: Primary Care Nurse Name: Rashaun Cortez Position: [facility] TA Member Role: Lifetime Consulting Physician Name: Donte RENDON, Junito Position: [facility] RN Member Role: Primary Care Nurse Care Team Related Persons Name: ARIEL VILLEGAS Address: [address] [place] [address] Name: MICA RM Address: home [address] [place] [address]
--- OUTSIDE RECORDS SUMMARY | 2024-01-21 07:39 | XMS_ITS | Continuity of Care Document ---
Author Organization [facility] Address [address] [place] [phone]- Care Team Providers Care Epic Director Name Role Phone Elaine Sierra NP Primary Care Physician [phone] Encounter [facility] [place] Date(s): 05/12/22 - 06/11/22 [facility] [address] [place] [phone]- Attending Physician: Dodie Venegas Admitting Physician: Dodie [...] EST, Capsule Start Date: 02/25/16 Status: Ordered Xopenex HFA 45 mcg/inh inhalation [...] Care team information Care Team Personnel Name: Ashley Duran RN Position: [facility] ED RN W/OE and Tasks Member Role: Primary Care Nurse Name: Rashaun Cortez Position: [facility] Member Role: Lifetime Consulting Physician Name: Junito Kent RN Position: [facility] RN Member Role: Primary Care Nurse Care Team Related Persons Name: ARIEL VILLEGAS Address: home [address] [place] [address] Name: MICA RM Address: home [address] [place] [phone]
--- OUTSIDE RECORDS SUMMARY | 2024-01-21 07:39 | XMS_ITS | Continuity of Care Document ---
Author Organization [facility] Address [address] [place] [phone]- Care Team Providers Care Budget Manager Name Role Phone Elaine Sierra NP Primary Care Physician [phone] Encounter [facility] [place] Date(s): 12/01/21 - 01/06/[address] [address] Attending Physician: Elaine Sierra NP Admitting Physician: Elaine Sierra NP Referring Physician: Elaine Sierra NP Allergies, Adverse Reactions, Alerts Substance Reaction Severity [...] team information Care Team Personnel Name: Ashley Murillo RN Position: [facility] ED RN W/OE and Tasks Member Role: Primary Care Nurse Name: Junito Kent RN Position: S RN Member Role: Primary Care Nurse Care Team Related Persons Name: ARIEL VILLEGAS Address: [address] [place] [address] Name: RM MICA Address: home [address] [place] [phone]
--- OUTSIDE RECORDS SUMMARY | 2024-01-21 07:39 | XMS_ITS | Continuity of Care Document ---
Author Organization [facility] Address [address] [place] [id number]- Care Team Providers Care Clay Dry Press Operator Name Role Phone Rigo OWENS, Elaine Primary Care Physician Encounter [facility] Date(s): 03/19/22 - 06/11/22 [facility] [address] [place] [id number]- Attending Physician: Jeremias Shea MD Admitting Physician: [...] Team Personnel Name: Ashley Duran RN Position: [facility] ED RN W/OE and Tasks Member Role: Primary Care Nurse Name: Rashaun Cortez Position: [facility] GISELL Member Role: Lifetime Consulting Physician Name: Junito Kent RN Position: [facility] RN Member Role: Primary Care Nurse Care Team Related Persons Name: ARIEL VILLEGAS Address: [address] [place] [address] Name: MICA RM Address: home [address] [place] [id number]
[2024-01-21 07:40] VITALS: PULSE 103; RESP 24; O2SAT 99
[2024-01-21] MEDS: Albuterol Sulfate 2.5 MG, Albuterol Sulfate (0.083%) 2.5 MG 5 MG INHALE (08:45)
[2024-01-21 08:46] VITALS: PULSE 78; RESP 19; O2SAT 98
--- NOTE | 2024-01-21 09:33 | MHC.EDTECH ---
Ambulation trial with O2 monitoring successfully completed with O2 Sat 95-97% during trial without any difficulty. Provider Beatris Trniidad NP informed.
[2024-01-21 09:37] VITALS: BP 139/86; PULSE 93; RESP 20; TEMP 36.6; O2SAT 96
[2024-01-21 09:59] VITALS: BP 146/76; PULSE 91; RESP 16; TEMP 37; O2SAT 96
== END 2024-01-21 10:01 | disposition home or self-care (01) ==
PROVIDERS: Emergency Provider Emergency Medicine; PCP Family Medicine
DX: J45.901 Unspecified asthma with (acute) exacerbation (principal); R06.02 Shortness of breath; Z03.818 Encounter for observation for suspected exposure to other biological agents ruled out; R00.0 Tachycardia, unspecified; I10 Essential (primary) hypertension; F17.210 Nicotine dependence, cigarettes, uncomplicated; Z79.899 Other long term (current) drug therapy
CPT/HCPCS: 0241U; 36415; 71046; 80053; 85025; 94640; 96365; 96366; 96375; 99284; 99285; J2919; J3475

== ENCOUNTER 2024-02-02 09:35 | Outpatient (AMB) | payer MEDICAID, SELFPAY ==
--- NOTE | 2024-02-02 09:39 | A.OFFVIS_ITS ---
Vital Signs 02/02/24 09:40 Height 5 ft 6 in Weight 207 lb 3.752 oz BMI 33.4 BP 120/82 Blood Pressure Location Rt brachial Position Sitting Pulse 105 H Pulse Source Doppler Pulse Oximetry (%) 97 Oxygen Delivery Method Room Air Intake Visit Reasons: Asthma Allergies Iodinated Contrast Media Allergy (Severe, Verified 01/21/24 06:39) Unknown levofloxacin Allergy (Mild, Verified 01/21/24 06:39) Rash ibuprofen [From MOTRIN] Allergy (Unknown, Verified 01/21/24 06:39) KIDNEY ISSUES mushroom Adverse Reaction (Mild, Verified 01/21/24 06:39) VOMITING amlodipine Adverse Reaction (Unknown, Verified 01/21/24 06:39) Swelling HPI HPI Asthma: Details: 53-year-old gentleman, active 20+ pack-year smoker, followed for allergic asthma asthma/COPD overlap syndrome.?He continues on Xolair, Advair, and albuterol MDI/Combivent with baseline good control of his underlying asthma symptoms. He continues to complain persistent nocturnal cough productive of whitish sputum. 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 Arthritis Surgical History History of unilateral nephrectomy H/O neck surgery Previous back surgery H/O kidney removal Family History Mother Hypertension Asthma Father Medical history unknown Social History Household Members: None Housing: Apartment Do you presently have visiting nurse or other home services: No Alcohol intake: former Patient Tobacco Use Status: Current everyday Tobacco user Tobacco use type: Cigarette Cigarette Packs Per Day: 0 Cigarettes Per Day: 5 Years Smoked: 20 years e-Cigarette/Vaping Use: Former Use Second Hand Smoke Exposure: No service: No Current occupational status: employed Review of Systems Const Denies daytime sleepiness, Denies excessive sweating, Denies fatigue, Denies fever(s), Denies lethargy, Denies malaise, Denies night sweats, Denies snoring and Denies weight loss Eyes Denies blurry vision and Denies itchy eyes ENT Denies nasal congestion, Denies post nasal drip, Denies sinus pain, Denies sinus pressure and Denies other ( Thrush) Card Denies chest pain, Denies pedal edema, Denies dyspnea, Denies orthopnea and Denies paroxysmal nocturnal dyspnea Resp Reports cough, Denies hemoptysis, Reports excessive phlegm production, Denies dyspnea, Denies snoring and Denies wheezing GI Denies abdominal pain and Denies heartburn Musc Denies myalgias, Denies arthralgias and Denies joint swelling Skin/Breast Denies rash Neuro Denies memory loss and Denies seizure-like activity Psych Denies abnormal sleep pattern, Denies anxiety and Denies memory loss Endo Denies excessive sweating, Denies fatigue and Denies heat intolerance Paul/Lymph Denies easy bruising Aller/Immun Denies itchy eyes, Denies seasonal rhinorrhea and Denies wheezing Physical Exam Vital Signs: Last Vital Signs Pulse 105 H 02/02/24 09:40 BP 120/82 02/02/24 09:40 Pulse Ox 97 02/02/24 09:40 Oxygen Delivery Method Room Air 02/02/24 09:40 BMI result Body Mass Index 33.4 Const General: no acute distress and alert Nutritional Appearance: not obese Orientation/consciousness: Other orientation findings ( oriented) HEENT Head: Yes atraumatic Eyes General: appearance normal, both eyes and all related structures Sclerae: sclerae normal EOM: EOMs intact bilaterally Neck Neck: Yes supple Lymphatic: no lymphadenopathy noted Resp Effort & Inspection: normal respiratory effort and no use of accessory muscles Auscultation: clear to auscultation bilaterally Cardio Rate: regular rate Rhythm: regular rhythm Heart sounds: no gallops, no murmurs and no rubs Skin General skin exam: other ( warm) Extrem General: No clubbing, No cyanosis and No edema Assessment & Plan Assessment & Plan (1) Asthma: Code(s): J45.909 - Unspecified asthma, uncomplicated Category: Medical Plan: Good baseline control on Xolair, Advair and Combivent. Continue current regimen. (2) Environmental allergies: Code(s): Z91.09 - Other allergy status, other than to drugs and biological substances Category: Medical Plan: Well controlled on Xolair and Singulair. Continue current regimen. (3) Cough: Code(s): R05.9 - Cough, unspecified Category: Medical Plan: Now with persistent cough, will obtain sputum culture. Orders: Orders Sputum Cult + Gram stain Today R05.9 - Cough, unspecified Coding Level of Care Code Est Pt Level 4 (24983) Complex EM visit Add On G2211 Diagnoses Asthma J45.909 Environmental allergies Z91.09 Cough R05.9
[2024-02-02 09:40] VITALS: BP 120/82; PULSE 105; O2SAT 97; BMI 33.4
== END 2024-02-02 09:56 | disposition home or self-care (01) ==
PROVIDERS: PCP Family Medicine; Visit Provider Internal Medicine Pulmonary Disease
DX: J45.909 Unspecified asthma, uncomplicated (principal); Z91.09 Other allergy status, other than to drugs and biological substances; R05.9 Cough, unspecified
CPT/HCPCS: 99214

== ENCOUNTER → 2024-02-02 09:35 | Outpatient (BNVA) | payer MEDICAID, SELFPAY | PROVIDERS: PCP Family Medicine; Visit Provider Internal Medicine Pulmonary Disease | DX: J45.909 Unspecified asthma, uncomplicated (principal); Z91.09 Other allergy status, other than to drugs and biological substances; R05.9 Cough, unspecified | CPT/HCPCS: 99212 ==

== ENCOUNTER 2024-02-28 09:24 | Outpatient (REF) | payer MEDICAID, SELFPAY ==
[2024-02-28 11:36] LABS: Rheumatoid Factor 14.5 IU/mL (<15.0)
[2024-02-28 12:01] LABS: Erythrocyte Sedimentation Rate 7 MM/HR (0-15)
[2024-02-28 12:04] LABS: HIV AB/AG Nonreactive (Nonreactive); HIV Num 1 0.05 S/CO (0.00-0.99); Syphilis Screen Nonreactive (Nonreactive); ~HepC Num1 0.09 S/CO (0.00-0.79); ~Hepatitis C Antibody Nonreactive (Nonreactive)
[2024-02-28 14:07] LABS: CT PCR NOT DETECTED (Not Detect.); NG PCR NOT DETECTED (Not Detect.)
[2024-03-02 15:39] LABS: Anti Nuclear Antibody Screen NEGATIVE (NEGATIVE)
== END 2024-02-28 09:25 | disposition home or self-care (01) ==
LOC: HO.HHCL 09:24
PROVIDERS: Visit Provider Family Medicine
DX: M25.641 Stiffness of right hand, not elsewhere classified (principal); M25.642 Stiffness of left hand, not elsewhere classified; Z11.3 Encounter for screening for infections with a predominantly sexual mode of transmission
CPT/HCPCS: 85652; 86038; 86431; 86780; 86803; 87389; 87491; 87591

== ENCOUNTER 2024-04-20 09:01 | Outpatient (AMB) | payer MEDICAID, SELFPAY ==
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
[2024-04-20 09:16] VITALS: BMI 32.5
--- OUTSIDE RECORDS SUMMARY | 2024-04-20 09:34 | XMS_ITS | Clinical Summary ---
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 predominantly in REM sleep. 2. Total sleep time RDI 9. REM sleep RDI 33. 3. Minimal periodic limb movement disorder, PLMS index 4. 4. Moderate amount of snoring, 25% of the sleep time. 08/29/23: Pt notes he had been prescribed a CPAP machine in the past, but has not rocael using it due to sleeping with his hands in his face. He has new concerns of sleeping difficulties, memory changes and coughing when sneezing due to lack of breath. Assessment & Plan (08/29/2023 10:02 AM EDT): Sleep study 04/18/2017 revealed 1. Moderately severe obstructive sleep apnea/hypopnea, predominantly in REM sleep. 2. Total sleep time RDI 9. REM sleep RDI 33. 3. Minimal periodic limb movement disorder, PLMS index 4. 4. Moderate amount of snoring, 25% of the sleep time. 08/29/23: Pt notes he had been prescribed a CPAP machine in the past, but has not rocael using it due to sleeping with his hands in his face. He has new concerns of sleeping difficulties, memory changes and coughing when sneezing due to lack of breath. Assessment & Plan (05/30/2023 12:20 PM EDT): Sleep study 04/18/2017 revealed 1. Moderately severe obstructive sleep apnea/hypopnea, predominantly in REM sleep. 2. Total sleep time RDI 9. REM sleep RDI 33. 3. Minimal periodic limb movement disorder, PLMS index 4. 4. Moderate amount of snoring, 25% of the sleep time. He did not follow up for CPAP titration. Then was referred to sleep medicine. He repots he will be doing a home sleep study in the future. Assessment & Plan (01/24/2023 9:01 AM EST): Sleep study 04/18/2017 revealed 1. Moderately severe obstructive sleep apnea/hypopnea, predominantly in REM sleep. 2. Total sleep time RDI 9. REM sleep RDI 33. 3. Minimal periodic limb movement disorder, PLMS index 4. 4. Moderate amount of snoring, 25% of the sleep time. He did not follow up for CPAP titration. Then was referred to sleep medicine. He repots he will be doing a home sleep study in the future. Assessment & Plan (11/01/2022 10:22 AM EDT): Sleep study 04/18/2017 revealed 1. Moderately severe obstructive sleep apnea/hypopnea, predominantly in REM sleep. 2. Total sleep time RDI 9. REM sleep RDI 33. 3. Minimal periodic limb movement disorder, PLMS index 4. 4. Moderate amount of snoring, 25% of the sleep time. He did not follow up for CPAP titration. Then was referred to sleep medicine. He repots he will be doing a home sleep study in the future. Assessment & Plan (06/28/2022 10:10 AM EDT): 04/18/2017:Prior Sleep study CONCLUSION: 1. Moderately severe obstructive sleep apnea/hypopnea, predominantly in REM sleep. 2. Total sleep time RDI 9. REM sleep RDI 33. 3. Minimal periodic limb movement disorder, PLMS index 4. 4. Moderate amount of snoring, 25% of the sleep time. He did not follow up for CPAP titration. Stage 2 chronic kidney disease 08/19/2020 Essential hypertension 08/19/2020 Overview (11/03/2023): -followed by [facility] -echo 03/31/23 EF 60-65% no changes compared to02/2017 -Blood pressure is at goal -Continue lifestyle modifications -Continue current medications -cardiology note from 04/12/23, no changes, follow up 6 months Assessment & Plan (11/03/2023 10:12 AM EDT): -followed by [facility] -echo 03/31/23 EF 60-65% no changes compared to02/2017 -Blood pressure is at goal -Continue lifestyle modifications -Continue current medications -cardiology note from 04/12/23, no changes, follow up 6 months Assessment & Plan (05/30/2023 12:31 PM EDT): -followed by [facility] -echo 03/31/23 EF 60-65% no changes compared to02/2017 -Blood pressure is at goal -Continue lifestyle modifications -Continue current medications -cardiology note from 04/12/23, no changes, follow up 6 months Assessment & Plan (12/20/2022 8:03 PM EDT): cr 11/28/2022 cr 1 Checked here BP manually in LA 132/100 and in RA 140/100 , HR 116, pt was smoking 1 hour ago. Pt having elevated BP here and diastolic at home as well and at hospital -EKG today for ongoing tachycardia ----> HR 105,QTc 449, NSR ,questionable Q wave lead III and AvF seen in EKG done in 09/2022 -will increase lisinopril to 20 mg daily , will hold on amlodipine for now-pt concern for hx of LE edema -advised tobacco cessation and advised to use nicotine patches and px today lozenges -pt to f w PCP in next 4 to 6 weeks to monitor BP and will need chem f up then after Bhupendra inh dose was increased -EKG today HR 105,QTc 449, NSR ,questionable Q wave lead III and AvF seen in EKG done in 09/2022 -Pt denies having any cardiac symptoms --referred today to cards w elevated risk factors and abnormal EKG-will hold on ASA for now ,denies symptoms will need stress test Assessment & Plan (11/01/2022 9:02 AM EDT): -Blood pressure is at goal -Continue lifestyle modifications -Continue current medications Depressive disorder 03/09/2012 Overview (06/29/2023): -Followed by psychiatric prescriber Loraine Bunch Assessment & Plan (05/30/2023 12:33 PM EDT): Followed by psychiatric prescriber Loraine Bunch Dyslipidemia 03/09/2012 Overview (10/31/2023): Lab Results Component Value Date CHOLESTEROL 201 (H) 03/05/2022 LDLCHOL 112 (H) 03/05/2022 TRIG 78 08/26/2023 TRIG 139 05/30/2023 TRIG 159 (H) 03/05/2022 HDLCHOL 62 03/05/2022 CHOLHDLRAT 3.2 03/05/2022 -atorvastatin increased from 40mg to 80mg by CDTM 08/2023 -continue lifestyle modifications Assessment & Plan (05/30/2023 12:33 PM EDT): Lab Results Component Value Date CHOLESTEROL 201 (H) 03/05/2022 LDLCHOL 112 (H) 03/05/2022 TRIG 159 (H) 03/05/2022 HDLCHOL 62 03/05/2022 CHOLHDLRAT 3.2 03/05/2022 -continue lifestyle modifications Assessment & Plan (01/24/2023 9:00 AM EST): Lab Results Component Value Date CHOLESTEROL 201 (H) 03/05/2022 LDLCHOL 112 (H) 03/05/2022 TRIG 159 (H) 03/05/2022 HDLCHOL 62 03/05/2022 CHOLHDLRAT 3.2 03/05/2022 -continue lifestyle modifications Assessment & Plan (11/01/2022 9:02 AM EDT): Lab Results Component Value Date CHOLESTEROL 201 (H) 03/05/2022 LDLCHOL 112 (H) 03/05/2022 TRIG 159 (H) 03/05/2022 HDLCHOL 62 03/05/2022 CHOLHDLRAT 3.2 03/05/2022 -continue lifestyle modifications Nicotine dependence 03/09/2012 Overview (10/31/2023): -Cigg/day: 5 -Age started: 23 -Total years smokin -Pack year history: 15 packs Encouraged smoking cessation resources such as pharmacomtherapy, [facility] smoking cessation group, and [facility] pharmacy smoking cessation clinic -14mg and 7mg patches trialed 11/01/2022 Discussed USPSTF recommends annual lung cancer screening with low dose CT in people who meet the following criteria: -ages 50 to 80 years. -have a 20 pack-year smoking history. -currently smoke cigarettes or quit within the past 15 years. -LDCT: referral on 05/30/2023 to pharmacy with Merary Agosto CDTM: patient seen in CDTM 10/31/23 and reports smoking 4-5cigs/day and denies using NRT, states he will continue efforts without NRT Assessment & Plan (05/30/2023 10:18 AM EDT): -Cigg/day: 5 -Age started: 23 -Total years smokin -Pack year history: 15 packs Encouraged smoking cessation resources such as pharmacomtherapy, [facility] smoking cessation group, and [facility] pharmacy smoking cessation clinic -14mg and 7mg patches trialed 11/01/2022 Discussed USPSTF recommends annual lung cancer screening with low dose CT in people who meet the following criteria: -ages 50 to 80 years. -have a 20 pack-year smoking history. -currently smoke cigarettes or quit within the past 15 years. -LDCT: referral on 05/30/2023 to pharmacy with Merary Assessment & Plan (01/24/2023 10:03 AM EST): -Smokes 6 cigarettes a day. -14mg and 7mg patches given 11/01/2022. Assessment & Plan (11/01/2022 9:16 AM EDT): -Smokes 5 cigarettes a day. -14mg and 7mg patches given 11/01/2022. Assessment & Plan (02/24/2022 10:59 AM EST): -smoking 4-5 cig a day -Declined CDTM or assistance for quitting on 02/24/2022. Advise to let me know if he needs any support. Resolved Problems Problem Noted Date Diagnosed Date Resolved Date Tachycardia 01/24/2023 02/10/2024 Overview (01/24/2023): Referral to cardio done 01/24/23 Assessment & Plan (05/30/2023 12:31 PM EDT): Referral to cardio done 01/24/23 Assessment & Plan (01/24/2023 10:06 AM EST): Referral to cardio done 01/24/23 Thrush 01/24/2023 05/30/2023 Obesity (BMI 35.0-39.9 without comorbidity) 12/20/2022 09/14/2023 Assessment & Plan (12/20/2022 8:04 PM EDT): -Advised pt to improve diet and exercise,discussed healthy life style -discussed chief credit officer referral -referred today Acute dehydration 09/23/2022 10/27/2022 HO (acute kidney injury) 09/23/2022 Elevated blood pressure reading 09/23/2022 10/27/2022 Gastritis 09/23/2022 10/27/2022 Penile lesion 09/23/2022 10/27/2022 Assessment & Plan (09/23/2022 10:54 AM EDT): Advised no sex until we rule out STI. Herpes viral culture obtained. RPR testing. Low back pain at multiple sites 09/23/2022 10/27/2022 Assessment & Plan (09/23/2022 10:52 AM EDT): MRI has been trying to reach Pt. He was given the number today to call. Once MRI is done, he will schedule with neuro surgery. -Given 1 tab daily of oxycodone in the morning. Pt understands this is for one week only and not residential. Acute idiopathic gout involv ing toe of left foot 09/08/2022 09/08/2022 Neural foraminal stenosis of lumbar spine 09/07/2022 10/27/2022 Gout attack 07/15/2022 10/27/2022 Assessment & Plan (07/17/2022 1:53 PM EDT): Advised patient to hydrate, Limit sugary drinks and alcohol. These can make gout flares worse, limit foods high in purines, eat a well-balanced diet. RTC PRN if symptome worsen or fail to improve Right flank pain 06/28/2022 02/10/2024 Asthma 06/28/2022 10/27/2022 Environmental allergies 06/28/2022 12/ Use of combustion-free vaporization device 06/28/2022 02/10/2024 Leukocytosis 06/28/2022 10/27/2022 Callus of foot 05/21/2022 10/27/2022 Assessment & Plan (05/21/2022 12:26 PM EDT): No evidence of ulceration at this time use urea cream FU with PCP Tobacco dependence 02/24/2022 Disorder of adrenal gland 02/15/2022 Hypertensive disorder 02/15/20222022 Benign essential hypertension 04/08/2021 09/06/2022 Overview (09/06/2022): -Blood pressure is at goal -Continue lifestyle modifications -Continue current medications Low back pain 04/08/2021 10/27/2022 Absent kidney 08/19/2020 02/10/2024 Rheumatoid arthritis 08/19/2020 023 Nicotine dependence 08/19/2020 07/03/19 Mild intermittent asthma 11/22/2016 Episodic opioid dependence 03/09/2012 0 07/02/2022 Encounters Date Type Department Care Team Description 04/17/2024 3:00 PM EST Office Visit [facility] [address] [place] [phone] Kwame Tariq MD Flu-like symptoms (Primary Dx); Moderate persistent asthma without complication 04/16/[address] [facility] [address] [place] [phone] Anibal Lenz MD Sacroiliac joint dysfunction 04/12/[address] [facility] [address] [place] [phone] Mirtha Lunsford MD Moderate persistent asthma without complication 04/03/[address] [facility] [address] [place] [phone] Mirtha Lunsford MD Mild intermittent asthma without complication 04/03/[address] [facility] [address] [place] [phone] Mirtha Lunsford MD Chronic bilateral low back pain, unspecified whether sciatica present; Mild intermittent asthma without complication 03/19/[address] [facility] [address] [place] [phone] Joyce Nava MA Recalls May (I book the appt on 06/18/2024 for Physical.) 03/19/2024 Travel 03/09/2024 9:00 AM EST Office Visit [facility] [address] [place] [phone] Anibal Lenz MD Acute left-sided thoracic back pain (Primary Dx); Sacroiliac joint dysfunction 03/09/2024 Travel 03/07/[address] [facility] [address] [place] [phone] Mirtha Lunsford MD Chronic bilateral low back pain, unspecified whether sciatica present 03/05/[address] [phone] Mirtha Lunsford MD Seasonal allergies 02/28/[address] [phone] Mirtha Lunsford MD Moderate persistent asthma without complication 02/27/[address] [phone] Linwood Kumari MA PA for Lyrica 02/26/[address] [phone] Kitty Funk NP Rash; Sacroiliac joint dysfunction 02/26/[address] [phone] Mirtha Lunsford MD Sacroiliac joint dysfunction 02/23/2024 9:45 AM EST Office Visit [address] [phone] Mirtha Lunsford MD Fissure in skin of foot (Primary Dx); Stiffness of joints of both hands; Varicose veins of both lower extremities, unspecified whether complicated; Dietary counseling; Exercise counseling; Class 1 obesity due to excess calories with serious comorbidity and body mass index (BMI) of 34.0 to 34.9 in adult; Moderate persistent asthma without complication; Adrenal cortical adenoma, unspecified laterality; Routine screening for STI (sexually transmitted infection) 02/23/[address] [phone] Mirtha Lunsford MD Durable Medical Equipment (Compression stockings) 02/23/2024 Travel [address] [phone] Mirtha Lunsford MD Prior Authorization ( PA Request Pregabalin 150 MG) 02/07/[address] [phone] Mirtha Lunsford MD Care Coordination (ICP CP healthcare project manager ) 02/07/[address] [facility] [address] [place] [phone] Mirtha Lunsford MD Chronic bilateral low back pain, unspecified whether sciatica present 01/21/2024 Orders Only [facility] External Provider, [facility] from Last 3 Months Immunizations Name Administration Dates Next Due Hep A, Adult 05/30/2023,11/01/2022,06/28/2022 Hep B, adult 01/24/2023,08/02/2022,06/28/2022 Influenza injectable quadriv alent IIV4 with preservative 11/01/2022,11/08/2017,01/12/2017,11/18 Influenza injectable quadriv alent preservative free 02/18/2022,11/10/2020,11/28/2019,11/25,11/13/2018,11/21/2014 Influenza, IIV3, injectable 02/18/2022,0 11/10/2020,11/26/2019,11/13,11/08/2017,01/12/2017,11/19/2015 ,11/21/2014,01/20/2012,01/13/2010 Influenza, Split (incl. lopez fied surface antigen) 01/20/2012 Influenza, Unspecified 11/10/2020,2019,11/13/2018,11/08,01/12/2017,11/19/2015,11/21/2014 ,01/20/2012,01/13/2010 Influenza, seasonal, injecta ble, preservative free 11/03/2023 Moderna Covid-19 Vaccine 12+ 07/06/2021, 07/06/2021,02/27/2021,02/27,05/23/2020,05/23/2020,04/25/2020 ,04/25/2020 Moderna Covid-19 Vaccine 6+ Bivalent 02/18/2022, 02/18/2022 Pfizer Covid-19 Vaccine 12+ 01/24/2023 Pneumococcal Conjugate PCV 20 11/01/2022 Pneumococcal Polysaccharide PPSV23 10/24/2014,,01/22/2008 Pneumococcal, Unspecified 01/22/2008 TD (adult), 2 Lf tetanus tox oid, preservative free, adsorbed 11/15/2011,05/26/2007 Td (adult) 11/15/2011 Td (adult), 5 Lf tetanus tox oid, preservative free, adsorbed 11/15/2011 Td, Adsorbed, Preservative F ree, Adult Use, Lf Unspecified 05/26/2007 Tdap 10/24/2014 Zoster, Recombinant 04/27/2021,2021 Family History Medical History Relation Name Comments Hypertension Mother Relation Name Status Comments Mother Social History Tobacco Use Types Packs/Day Years Used Date Smoking Tobacco: Every Day Cigarettes Passive Smoke Exposure: Current Smokeless Tobacco: Never Tobacco Cessation:Ready to Q uit: Not Asked; Counseling Given: Not Answered Comments:4-5 cigs/day Alcohol Use Standard Drinks/Week Comments Yes 0 (1 standard drink = 0.6 oz pur e alcohol) occasionally Alcohol Answer Date Recorded How often do you have a drink containing alcohol ? 2 12/19/2023 How many drinks containing a lcohol do you have on a typical day when you are drinking? 1 12/19/2023 Frequency of Binge Drinking Not on file 11/22 Depression Answer Date Recorded Patient Health Questionnaire-9 Score 0 06/17/2023 Patient Health Questionnaire-9 Score 0 06/17/2023 Last PHQ-9: Questionnaire Data Not on file 0 06/17/2023 Housing Stability Answer Date Recorded What is your housing situation today? I have nava laureano 08/29/[address] you li ve. Do you have problems with any of the following? None of the above 08/29/2023 Food Insecurity Answer Date Recorded Within the past 12 months, y ou worried that your food would run out before you got money to buy more: Never True 08/29/2023 Within the past 12 months,th e food you bought just didn't last and you didn't have enough money to get more: Never True 09/2023 Transportation Answer Date Recorded In the past 12 months, has l ack of transportation kept you from medical appts, meetings, work or from getting things needed for daily living? No 08/29/2023 Utilities Answer Date Recorded In the past 12 months, has t he electric, gas, oil or water company threatened to shut off services in your home? No 08/29/2023 Depression Answer Date Recorded Patient Health Questionnaire-2 Score 0 06/17/2023 Internet Access Answer Date Recorded Internet Access Q1 Yes 10/24/2023 Internet Access Q2 My internet/Wi-Fi ac cess is not consistent or reliable 10/24/2023 Sex and Gender Information Value Date Recorded Sex Assigned at Male 12/21/2021 10:19 AM EDT Legal Sex Male 10:19 AM EDT Gender Identity Male 12/21/2021 10:19 AM EDT Sexual Orientation Straight 12/21/2021 10 :19 AM EDT Last Filed Vital Signs Vital Sign Reading Time Taken Comments Blood Pressure 145/98 04/17/2024 3:08 PM EST Pulse 104 04/17/2024 3:08 PM EST Temperature 37.2 ??C (99 ??F) 04/17/2024 3:08 PM EST Respiratory Rate 20 04/17/2024 3:08 PM EST Oxygen Saturation 94% 04/17/2024 3:08 PM EST Inhaled Oxygen Concentration - - Weight 97.1 kg (214 lb 2 oz) 04/17/2024 3:08 PM EST Height 172.7 cm (5' 8 ) 04/17/2024 3:08 PM EST Body Mass Index 32.56 04/17/2024 3:08 PM EST Plan of Treatment Upcoming Encounters Date Type Department Care Team (Late st Contact Info) Description 06/18/2024 9:15 AM EDT Office Visit [facility] [address] [place] [address] Mirtha Lunsford MD [address] [place] [address] 07/18/2024 8:00 AM EDT Office Visit [facility] [address] [place] [phone] Rebecca Capps Health Maintenance Due Date Last Done Comments CT Colonography 1968 FIT DNA/Cologuard 1968 FIT 1968 FOBT 1968 Sigmoidoscopy 1968 Depression Screening 06/16/2024 06/17/2023, 06/17/19 Dental Oral Exam 07/16/2024 01/16/2024, 05/2020, 04/02/2019, Additional history exists Dental Prophylaxis 07/16/2024 01/16/2024, 0 07/25/2020, 07/03/2018, Additional history exists Colonoscopy 08/23/2024 08/24/2023, 06/21, 07/08/2023, Additional history exists Colorectal Cancer Screening 08/23/2024 SDOH Screening 08/28/2024 08/29/2023 DTaP/Tdap/Td Vaccines (2 - Td or Tdap) 10/24/2024 10/24/2014, 11/15/2011, 11/15/2011, Additional history exists Alcohol/Substance Use Screening 12/18/2024 12/19/2023 Dental X-Ray: Bitewings 01/16/2025 01/16/20 24, 04/15/2021, 03/26/2021, Additional history exists Tobacco Screening 04/17/2025 04/17/2024 Dental X-Ray: Full Mouth 01/16/2027 024, 07/25/2020, 05/05/2015 Lipid Panel 08/25/2028 08/26/2023, 040 09/2023, 03/05/2022 RSV Patients and Patients Aged 60 years or older (1 - 1-dose 75+ series) 02/15/2043 Zoster Vaccines Completed 04/27/2021, 2021 Pneumococcal Vaccine: 50+ Years Completed 11/01/2022, 10/24/2014, 06/25/2014, Additional history exists Hepatitis B Vaccines Completed 01/24/2023, 08/02/2022, 06/28/2022 Hepatitis A Vaccines Completed 05/30/2023, 11/01/2022, 06/28/2022 Influenza Vaccine Completed 11/03/2023, , 02/18/2022, Additional history exists COVID-19 Vaccine Completed 11/10/2023, 05/2022, 02/18/2022, Additional history exists HIV Screening Completed 02/28/2024, 04/0 09/2023, 03/12/2022 Hepatitis C Screening Completed 02/28/2024 , 05/30/2023, 03/12/2022, Additional history exists HIB Vaccines Aged Out No longer eligi ble based on patient's age to complete this topic HPV Vaccines Aged Out No longer eligi ble based on patient's age to complete this topic IPV Vaccines Aged Out No longer eligi ble based on patient's age to complete this topic Meningococcal Vaccine Aged Out No javier madi eligible based on patient's age to complete this topic RSV under 20 months Aged Out No longe r eligible based on patient's age to complete this topic Rotavirus Vaccines Aged Out No longer eligible based on patient's age to complete this topic Goals Goal Patient Goal Type Associated Problems Recent Progress Patient-Stated? Author Blood Pressure < 140/90 Blood Pressure 145/98( 025 3:08 PM EST) No Piers-Gambl e, Victoria, PharmD Reduce tobacco use (cigarettes, smokeless, etc) Tobacco Use No Piers-Gambl e, Victoria, PharmD Procedures Procedure Name Priority Date/Time Associated Diagnosis Comments POCT INFLUENZA A (ID NOW RAPID MOLECULAR) Routine 04/17/2024 3:22 PM EST Flu-like symptoms POCT INFLUENZA B (ID NOW RAPID MOLECULAR) Routine 04/17/2024 3:22 PM EST Flu-like symptoms POCT RAPID COVID ANTIGEN Routine 04/17/2024 3:22 PM EST Flu-like symptoms CHANCE SCREEN, IFA, W/REFL TITER AND PATTERN Routine 02/28/2024 9:39 AM EST Stiffness of joints of both hands SYPHILIS SCREEN Routine 02/28/2024 9:26 AM EST Routine screening for STI (sexually transmitted infection) HEPATITIS C AB W/REFL TO HCV RNA, QN, PCR Routine 02/28/2024 9:26 AM EST Routine screening for STI (sexually transmitted infection) HIV 1/2 ANTIGEN/ANTIBODY, FOURTH GENERATION W/RFL Routine 02/28/2024 9:26 AM EST Routine screening for STI (sexually transmitted infection) SED RATE BY MODIFIED WESTERGREN Routine 02/28/2024 9:26 AM EST Stiffness of joints of both hands RHEUMATOID FACTOR Routine 02/28/2024 9:2 6 AM EST Stiffness of joints of both hands CHLAMYDIA/N. GONORRHOEAE RNA, TMA, UROGENITAL Routine 02/28/2024 9:26 AM EST Routine screening for STI (sexually transmitted infection) XR CHEST 2 VIEWS Routine 01/21/2024 6:50 AM EST PROPHYLAXIS - ADULT Routine 01/16/2024 8 :00 AM EST Dental plaque Dental calculus INTRAORAL - COMPLETE SERIES OF RADIOGRAPHIC IMAGES Routine 01/16/2024 8:00 AM EST PERIODIC ORAL EVALUATION - ESTABLISHED PATIENT Routine 01/16/2024 8:00 AM EST LIPID PANEL, STANDARD Routine 08/26/2023 9:11 AM EDT HM COLONOSCOPY Routine 08/24/2023 2:44 PM EDT from Last 3 Months or Most Recently Relevant to Health Maintenance Results * POCT Rapid Influenza B ESCOBEDO ID NOW (04/17/2024 3:22 PM EST) Influenza B Negative Negative, Indeterminate [facility] Swab 04/17/2024 3:22 PM EST Kwame Tariq MD POINT OF CARE TEST ENTER/EDIT OR DERABLES Final Result [facility] [address] [place] [phone] * (ABNORMAL) POCT Rapid Influenza A ESCOBEDO ID NOW (04/17/2024 3:22 PM EST) Influenza A Positive( A) Negative, Indeterminate [facility] Swab 04/17/2024 3:22 PM EST us Kwame Name POINT OF CARE TEST ENTER/EDIT OR DERABLES Final Result [facility] [address] [place] [phone] * POCT Rapid Covid-19 BinaxNOW (04/17/2024 3:22 PM EST) Rapid COVID Ag Negative [facility] Swab 04/17/2024 3:22 PM EST us Kwame Name POINT OF CARE TEST ENTER/EDIT OR DERABLES Final Result Performing Organization Address [facility]/ZIP Co de Phone Number [facility] [address] [place] [address] [phone] * CHANCE Screen,IFA, with Reflex to Titer and Pattern (02/28/2024 9:39 AM EST) Anti Nuclear Antibody Screen NEGATIVE NEGATIVE [facility] Comment:CHANCE IFA is a first l ine screen for detecting thepresence of up to approximately 150 autoantibodies invarious autoimmune diseases. A negative CHANCE IFA resultsuggests an CHANCE-associated autoimmune disease is notpresent at this time, but is not definitive. If thereis high clinical suspicion for Sjogren's syndrome,testing for anti-SS-A/Ro antibody should be considered.Anti-Aracelis-1 antibody should be considered for clinicallysuspected inflammatory myopathies.AC-0: NegativeInternational Consensus on CHANCE Patterns(https://doi.org/10.1515/vmdp-1374-2320)For additional information, please refer tohttp://education.[employer].Corebook/faq/JVL119(This link is being provided for informational/educational purposes only.)THIS TEST WAS PERFORMED AT:[employer] [place] [id number] PRINCE MD CHANCE Titer TNP [facility] CHANCE Pattern [facility] CH[facility] 2 (REF LAB) [facility] CHANCE Pattern 2 [facility] CHANCE TITER 3 [facility] CHANCE PATTERN 3 [facility] Blood Venous blood specimen / Unknown 02/28/2024 9:39 AM EST 02/28/2024 11:15 AM EST Mirtha Lunsford MD LAB BLOOD ORDERABLES Final Result Performing Organization Address [facility] de Phone Number [facility] [address] [place] [phone] * Syphilis Screen (02/28/2024 9:26 AM EST) [facility] Syphilis Screen Nonreactive Nonreactive [facility] Blood Venous blood specimen / Unknown 02/28/2024 9:26 AM EST 02/28/2024 11:15 AM EST Mirtha Lunsford MD LAB BLOOD ORDERABLES Final Result Performing Organization Address [facility] de Phone Number [facility] [address] [place] [phone] * Hepatitis C Antibody with Reflex to HCV, RNA, Quantitative, Real-Time PCR (02/28/2024 9:26 AM EST) [facility] Hepatitis C Antibody Nonreactive Nonreactive [facility] Comment:Antibodies to HCV no t detected; does not exclude early acuteHCV infection. Blood Venous blood specimen / Unknown 02/28/2024 9:26 AM EST 02/28/2024 11:15 AM EST Mirtha Lunsford MD LAB BLOOD ORDERABLES Final Result Performing Organization Address [facility] de Phone Number [facility] [address] [place] [address] [phone] * Chlamydia/N. Gonorrhoeae RNA, TMA, Urine (02/28/2024 9:26 AM EST) [facility] CT PCR NOT DETECTED Not Detect. [facility] Comment:A not detected test result does not exclude the possibilityof infection because test results can be affected byimproper specimen collection, concurrent antibiotic therapy,or the number of organisms in the specimen which may bebelow the sensitivity of the test. As with many diagnostictests, results from the Xpert CT/NG assay should beinterpreted in conjunction with other laboratory andclinical data available to the clinician.Xpert CT/NG performance has not been evaluated in patientsless than 14 years of age. The assay should not be used forthe evaluationof suspected sexual abuse or for other medico-legalindications. Additional testing is recommended in anycircumstance when false positive or false negative resultscould lead to adverse medical, social or psychologicalconsequences. NG PCR NOT DETECTED Not Detect. [facility] Comment:A not detected test result does not exclude the possibilityof infection because test results can be affected byimproper specimen collection, concurrent antibiotic therapy,or the number of organisms in the specimen which may bebelow the sensitivity of the test. As with many diagnostictests, results from the Xpert CT/NG assay should beinterpreted in conjunction with other laboratory andclinical data available to the clinician.Xpert CT/NG performance has not been evaluated in patientsless than 14 years of age. The assay should not be used forthe evaluationof suspected sexual abuse or for other medico-legalindications. Additional testing is recommended in anycircumstance when false positive or false negative resultscould lead to adverse medical, social or psychologicalconsequences. Urine, Random 02/28/2024 9:2 6 AM EST 02/28/2024 11:34 AM EST Narrative [facility] - 02/28/2024 2:07 PM EST Urine us Mritha Lunsford MD LAB MICROBIOLOGY - GENERAL ORDERABLES Final Result [facility] [address] [place] [phone] * HIV-1/2 Antigen and Antibodies, Fourth Generation, with Reflexes (02/28/2024 9:26 AM EST) HIV AB/AG Nonreactive Nonreactive [facility] Comment:HIV-1 p24 Ag and/or HIV-1/HIV-2 Ab not detected.A test result that is nonreactive does not exclude thepossibility of exposure to or infection with HIV-1 and/orHIV-2. Nonreactive results in this assay for individualswith prior exposure to HIV-1 and/or HIV-2 may be due toantigen and antibody levels that are below the limit ofdetection of this assay.The [employer] HIV Ag/Ab Combo assay result andsupplemental assay results should be interpreted inconjunction with the patient's clinical presentation,history and other laboratory results. If the results areinconsistent with clinical evidence, additional testing issuggested to confirm the result. Blood Venous blood specimen / Unknown 02/28/2024 9:26 AM EST 02/28/2024 11:15 AM EST Mirtha Lunsford MD LAB BLOOD ORDERABLES Final Result Performing Organization Address [facility] Co de Phone Number [facility] [address] [place] [phone] * Sed Rate by Modified Jonoergren (02/28/2024 9:26 AM EST) [facility] Erythrocyte Sedimentation Rate 7 0 - 15 MM/HR [facility] Comment:Patients with polycy themia and many hemoglobin abnormalitiesmay have depressed sed rates whereas patients with anemiamay have elevated sed rates. Blood Venous blood specimen / Unknown 02/28/2024 9:26 AM EST 02/28/2024 11:15 AM EST Mirtha Lunsford MD LAB BLOOD ORDERABLES Final Result Performing Organization Address [facility] Co de Phone Number [facility] [address] [place] [address] [phone] * Rheumatoid Factor (02/28/2024 9:26 AM EST) [facility] Rheumatoid Factor 14.5 <15.0 IU/mL [facility] Blood Venous blood specimen / Unknown 02/28/2024 9:26 AM EST 02/28/2024 11:15 AM EST us Mirtha Lunsford MD LAB BLOOD ORDERABLES Final Result [facility] [address] [facility] [place] [address] [phone] * XR Chest 2 Views (01/21/2024 6:50 AM EST) Anatomical Region Laterality Modality Chest Radiographic Ursula ging 01/21/2024 6:50 AM EST Narrative 01/21/2024 7:54 AM EST ? [facility] ?[address] ?[place] [address] ?XRay Report ? Signed ? Patient: Yuri Stokes ? MR#: [id number] ? : 1970 ?Acct:[id number] ? Age/Sex: 53 / M ?ADM Date: 01/21/24 ? Loc: HO.ED ? Attending Dr: ? Ordering Physician: Jena Corrales DO ?? Date of Service: 01/21/24 ?? Procedure(s): XR chest 2V ?? Accession Number(s): [id number] ? cc: Mirtha Lunsford MD; Jena Corrales DO ? EXAMINATION: ?? XR CHEST ? CLINICAL INFORMATION: ?? dyspnea ? COMPARISON: ?? Chest x-ray on 12/28/2023 ? TECHNIQUE: ?? 2 views of the chest were obtained. ? FINDINGS: ?? No significant abnormality is noted involving the heart, lungs, ?? mediastinum, bony thorax or soft tissues. ? XR/XR chest 2V ?? IMPRESSION: ?? Unremarkable examination. ? Electronically signed by: ??Barbaar Orlando MD ??01/21/2024 07:51 AM EST ?? RP ? Dictated By: ?Barbara Orlando MD ? Signed By: ?<Electronically signed by Barbara Orlando MD in OV> ? 01/21/24 0751 ? DD/DT: 01/20/ 0650 ? TD/TT: 01/20/ 0654 ? Claim Review Medical Director: PN ? Procedure Note Donotuseinterpreter, Image - 01/21/[address] [address] XRay Report Signed Patient: Yuri Stokes MR#: [id number] : 1970Acct:[id number] Age/Sex: 53 / MADM Date: 01/21/24 Loc: .ED Attending Dr: Ordering Physician: Jena Corrales DO Date of Service: 01/21/24 Procedure(s): XR chest 2V Accession Number(s): [id number] cc: Mirtha Lunsford MD; Jena Corrales DO EXAMINATION: XR CHEST CLINICAL INFORMATION: dyspnea COMPARISON: Chest x-ray on 12/28/2023 TECHNIQUE: 2 views of the chest were obtained. FINDINGS: No significant abnormality is noted involving the heart, lungs, mediastinum, bony thorax or soft tissues. XR/XR chest 2V IMPRESSION: Unremarkable examination. Electronically signed by: Barbara Orlando MD 01/21/2024 07:51 AM EST RP Dictated By: Barbara Orlando MD Signed By: <Electronically signed by Barbara Orlando MD in OV> 01/21/24 0751 DD/ 0650 TD/TT: 01/21/24 0654 Claim Review Medical Director: PN [facility] External Provider IMG XR PROCEDURES Final Result * Lipid Panel, Standard (08/26/2023 9:11 AM EDT) Triglycerides 78 <150 mg/dL [facility] Comment:Desirable Triglyceri de: less than 150 mg/dLBorderline High Triglyceride 150-199 mg/dLHigh Triglyceride: 200-499 mg/dLVery High Triglyceride: greater than or equal to 5OO mg/dL Cholesterol 183 <200 mg/dL [facility] Comment:Desirable Cholestero l: less than 200 mg/dLBorderline High Cholesterol: 200-239 mg/dLHigh Cholesterol: greater than 239 mg/dL LDL Cholesterol Calculated 90 <100 mg/dL [facility] Comment:Desirable LDL: less than 100 mg/dLNear Optimal/Above Optimal LDL: 110- 129 mg/dLBorderline High LDL: 130-159 mg/dLHigh LDL: 160-189 mg/dLVery High LDL: greater than or equal to 190 mg/dL HDL Cholesterol 78 >40 mg/dL [facility] Comment:Desirable HDL: great er than 40 mg/dL Note: This HDL assay may give artificially low results in patients with liver disease. 08/26/2023 9:11 AM EDT 08/26/2023 11:07 AM EDT Mirtha Lunsford MD LAB BLOOD ORDERABLES Final Result [facility] [address] [place] [address] [phone] * (ABNORMAL) Colonoscopy (07/08/2023) Colonoscopy Abnormal( A) Normal Comment:Multiple polyps with Dr. Pisano, repeat 1 year Historical Provider HEALTH MAINTENANCE Edited Result - Final from Last 3 Months or Most Recently Relevant to Health Maintenance Insurance [facility] [place] AD[place] Advance Directives Documents on File Type Date Recorded Patient Cargo And Ramp Services Manager Expl anation Advance Directives and Living Will 12/19/2023 Health Care Proxy 12/19/23 Care Teams Professor Of Music Relationship Specialty Start Date End Date Chambers, MD Mirtha [address] [place] [phone] PCP - General Family Medicine 03/04/15 Victoria Radford PharmD [address] [place] [phone] Pharmacist Internal Medicine 08/03/22 Acosta Sinha FNP [address] [place] [address] Nurse Practitioner Family Medicine 01/17/23 Flip Wan MD [address] [place] [address] Pulmonary Disease 02/02/24 Dmitri Sequeira MD [address] [facility] [address] [place] [address] Nephrology 02/10/24 Stephane Pisano MD [address] [place] [address] [address] [place] [address] General Surgery 02/10/24 Melvin Claros MD [address] [place] [address] Cardiology 04/16/24 Ghassan Fletcher White SourerCigar Head Holer 02/07/24
--- OUTSIDE RECORDS SUMMARY | 2024-04-20 09:34 | XMS_ITS | Encounter Summary ---
Author Organization [employer] Address [address] [facility] [address] [facility] [address] [place] [address] Care Team Providers Care Liability Claims Adjuster Name Role Phone Mirtha Lunsford MD Primary Care Provider + [phone] Victoria Radford PharmD Unavailable [phone] Acosta Sinha GLASS INSTALLER TECHNICIAN Unavailable Unavailable Flip Wan MD Unavailable [phone] Dmitri Sequeira MD Unavailable [phone] Stephane Pisano MD Unavailable [phone] eMlvin Claros MD Unavailable [phone] Reason for Visit * Reason Comments Med Refill Encounter Details Date Type Department Care Team (Late st Contact Info) Description 09/23/2022 Refill [facility] [address] [place], [place] [phone] Mirtha Lunsford MD [address] [place], [place] [phone] Seasonal allergies Social History Tobacco Use Types Packs/Day Years Used Date Smoking Tobacco: Every Day Cigarettes Passive Smoke Exposure: Current Smokeless Tobacco: Never Comments:6 cigs Alcohol Use Standard Drinks/Week Comments Yes 0 (1 standard drink = 0.6 oz pur e alcohol) occasionally Depression Answer Date Recorded Patient Health Questionnaire-9 Score 10 07/12/2022 Depression Answer Date Recorded Patient Health Questionnaire-2 Score 2 07/12/2022 Sex and Gender Information Value Date Recorded Sex Assigned at Male 12/21/2021 10:19 AM EDT Legal Sex Male 10:19 AM EDT Gender Identity Male 12/21/2021 10:19 AM EDT Sexual Orientation Straight 12/21/2021 10 :19 AM EDT documented as of this encounter Plan of Treatment Upcoming Encounters Date Type Department Care Team (Late st Contact Info) Description 06/18/2024 9:15 AM EDT Office Visit [facility] [address] [place] [address] Mirtha Lunsford MD [address] [place] [address] 07/18/2024 8:00 AM EDT Office Visit [facility] ADULT [facility] [address] [place] [address] Rebecca Capps documented as of this encounter Goals Goal Patient Goal Type Associated Problems Recent Progress Patient-Stated? Author Blood Pressure < 140/90 Blood Pressure 145/98( 025 3:08 PM EST) No Victoria Mayo PharmD documented as of this encounter Visit Diagnoses Diagnosis Seasonal allergies Allergic rhinitis, cause unspecified documented in this encounter Additional Health Concerns Assessment Noted Time PHQ-9 Depression Total Score: 10 023 3:38 PM EDT documented as of this encounter Care Teams Liability Claims Adjuster Relationship Specialty Start Date End Date Mirtha Lunsford MD [address] [place] [address] PCP - General Family Medicine 03/04/15 Victoria Radford, PharmD [address] [place] [address] Pharmacist Internal Medicine 08/03/22 Acosta Sinha FNP [address] [place] [address] Nurse Practitioner Family Medicine 01/17/23 Filp Wan MD [address] [place] [address] Pulmonary Disease 02/02/24 Dmitri Sequeira MD [address] [place] [address] [address] [place] [address] Nephrology 02/10/24 Stephane Pisano MD [address] [place] [address] [address] [place] [address] General Surgery 02/10/24 Melvin Claros MD [address] [place] [address] Cardiology 04/16/24 NARAYAN LICEA Brake SpecialistJava Sql Developer 01/06/23 02/06/24 Ghassan Fletcher Brake SpecialistJava Sql Developer 02/07/24 documented as of this encounter
--- OUTSIDE RECORDS SUMMARY | 2024-04-20 09:34 | XMS_ITS | Encounter Summary ---
Author Organization [employer] Address [address] [facility] [address] [address] [place] [address] Care Team Providers Care End Touching Machine Operator Name Role Phone Mirtha Lunsford MD Primary Care Provider +- [phone] Victoria Radford PharmD Unavailable Acosta Sinha RISK OFFICER Unavailable Unavailable Flip Wan MD Unavailable [phone] Dmitri Sequeira MD Unavailable [phone] Stephane Pisano MD Unavailable [phone] Melvin Claros MD Unavailable [phone] Reason for Visit * Reason Onset Date Comments Other 11/23/2022 Encounter Details Date Type Department Care Team (Late st Contact Info) Description 11/23/2022 Telephone [facility] [address] [place], [place] [phone] Mirtha Lunsford MD [address] [place], [place] [phone] Other Social History Tobacco Use Types Packs/Day Years [...] AM EDT documented as of this encounter Miscellaneous Notes * Telephone Encounter - Melody Cecil - 11/23/2022 9:17 AM EDT Tc from nidia with ICP states pt is requesting for a higher dosage to the nicotine patches. States he feels like it is not helping him. Any questions, contact nidia at [phone] documented in this encounter Plan of Treatment Upcoming Encounters Date Type Department Care Team (Late st Contact Info) Description 06/18/2024 9:15 AM EDT Office Visit [facility] [address] [place] [address] Mirtha Lunsford MD [address] [place] [address] 07/18/2024 8:00 AM EDT Office Visit [facility] ADULT [facility] [address] [place] [address] Rebecca Capps documented as of this encounter Goals Goal Patient Goal Type Associated Problems Recent Progress Patient-Stated? Author Blood Pressure < 140/90 Blood Pressure 145/98( 025 3:08 PM EST) No Victoria Mayo PharmD documented as of this encounter Visit Diagnoses Not on filedocumented in this encounter Additional Health Concerns Assessment Noted Time PHQ-9 Depression Total Score: 10 023 3:38 PM EDT documented as of this encounter Care Teams End Touching Machine Operator Relationship Specialty Start Date End Date Mirtha Lunsford MD [address] [place] [address] [phone] PCP - General Family Medicine 03/04/15 Victoria Radford PharmD [address] [place] [address] Pharmacist Internal Medicine 08/03/22 Acosta Sinha FNP [address] [place] [address] Nurse Practitioner Family Medicine 01/17/23 Flip Wan MD 5 [place] [address] Pulmonary Disease 02/02/24 Dmitri Sequeira MD 100 [facility] 200 [place] [address] Nephrology 02/10/24 Stephane Pisano MD [address] [place] [address] 3[address] [place] [address] General Surgery 02/10/24 Melvin Claros MD [address] [place] [address] Cardiology 04/16/24 NARAYAN LICEA Check AirmanDoor Cutter 01/06/23 02/06/24 Ghassan Fletcher Check AirmanDoor Cutter 02/07/24 documented as of this encounter
--- OUTSIDE RECORDS SUMMARY | 2024-04-20 09:34 | XMS_ITS | Encounter Summary ---
Author Organization [employer] Address [address] [facility] [address] [address] [place] [address] Care Team Providers Care Gasoline Engine Assembler Name Role Phone Mirtha Lunsford MD Primary Care Provider + [phone] Victoria Radford PharmD Unavailable Acosta Sinha SERVER SECURITY ADMINISTRATOR Unavailable Unavailable Flip Wan MD Unavailable [phone] Dmitri Sequeira MD Unavailable [phone] Stephane Pisano MD Unavailable [phone] Melvin Claros MD Unavailable [phone] Reason for Visit * Reason Comments Med Refill Encounter Details Date Type Department Care Team (Late st Contact Info) Description 11/15/[address] [facility] [address] [place], [place] [phone] Mirtha Lunsford MD [address] [place], [place] [phone] Seasonal allergies Social History Tobacco Use Types [...] 06/18/2024 9:15 AM EDT Office Visit [facility] [address] [place] [address] Mirtha Lunsford MD [address] [place] [address] 07/18/2024 8:00 AM EDT Office Visit [facility] [address] [place] [address] Rebecca Capps documented as of this encounter [...] documented as of this encounter Care Teams Gasoline Engine Assembler Relationship Specialty Start Date End Date Mirtha Lunsford MD [address] [place] [address] PCP - General Family Medicine 03/04/15 Victoria Radford, PharmD [address] [place] [address] Pharmacist Internal Medicine 08/03/22 Acosta Sinha FNP [address] [place] [address] Nurse Practitioner Family Medicine 01/17/23 Flip Wan MD [address] [place] [address] Pulmonary Disease 02/02/24 Dmitri Sequeira MD [address] [place] [address] [address] [place] [address] Nephrology 02/10/24 Stephane Pisano MD [address] [place] [address] [address] [place] [address] General Surgery 02/10/24 Melvin Claros MD [address] [place] [address] Cardiology 04/16/24 NARAYAN LICEA Bark TannerGray Tender 01/06/23 02/06/24 Ghassan Fletcher Bark TannerGray Tender 02/07/24 documented as of this encounter
--- OUTSIDE RECORDS SUMMARY | 2024-04-20 09:35 | XMS_ITS | Encounter Summary ---
Author Organization [employer] [facility] Address [address] [facility] 7t [place] [address] Care Team Providers Care Land Acquisition Specialist Name Role Phone Mirtha Lunsford MD Primary Care Provider + [phone] Victoria Radford PharmD Unavailable [phone] Acosta Sinha AIRPLANE PILOT COMMERCIAL Unavailable Unavailable Flip Wan MD Unavailable [phone] Dmitri Sequeira MD Unavailable [phone] Stephane Pisano MD Unavailable [phone] Melvin Claros MD Unavailable [phone] Encounter Details Date Type Department Care Team (Latest Contact Info) Description 07/03/2018 Abstract [facility] Dental, Provider, DDS Social History Tobacco Use Types Packs/Day Years Used Date Smoking Tobacco: Never Assessed Sex and Gender Information Value Date Recorded Sex Assigned at Male 12/21/2021 10:19 AM EDT Legal Sex Male 10:19 AM EDT Gender Identity Male 12/21/2021 10:19 AM EDT Sexual Orientation Straight 12/21/2021 10 :19 AM EDT documented as of this encounter Plan of Treatment Upcoming Encounters Date Type Department Care Team (Late st Contact Info) Description 06/18/2024 9:15 AM EDT Office Visit [facility] [address] [place], [place] [phone] Mirtha Lunsford MD [address] [place] [address] 07/18/2024 8:00 AM EDT Office Visit [facility] [address] [place] [address] Rebecca Capps documented as of this encounter Visit Diagnoses Not on filedocumented in this encounter Care Teams Land Acquisition Specialist Relationship Specialty Start Date End Date Mirtha Lunsford MD [address] [place] [address] PCP - General Family Medicine 03/04/15 Victoria Radford, GypsyD [address] [place] [address] Pharmacist Internal Medicine 08/03/22 Acosta Sinha FNP [address] [place] [address] Nurse Practitioner Family Medicine 01/17/23 Flip Wan MD [address] [place] [address] Pulmonary Disease 02/02/24 Dmitri Seque[address] MD [address] [facility] 200 [place] [address] Nephrology 02/10/24 Stephane Pisano MD [address] [place] [address] 3rd [place] [address] General Surgery 02/10/24 Melvin Claros MD [address] [place] [address] Cardiology 04/16/24 NARAYAN LICEA Mortgage BrokerMammography Tech 01/06/23 02/06/24 Ghassan Fletcher Mortgage BrokerMammography Tech 02/07/24 documented as of this encounter
--- OUTSIDE RECORDS SUMMARY | 2024-04-20 09:35 | XMS_ITS | Encounter Summary ---
Author Organization [employer] Address [address] [facility] [address] [place] [address] Care Team Providers Care Cessation Systems Outreach Specialist Name Role Phone Mirtha Lunsford MD Primary Care Provider + [phone] Victoria Radford PharmD Unavailable [phone] Acosta Sinha LABORATORY TESTER Unavailable Unavailable Flip Wan MD Unavailable [phone] Dmitri Sequeira MD Unavailable [phone] Stephane Pisano MD Unavailable [phone] Melvin Claros MD Unavailable [phone] Reason for Visit * Reason Comments Med Refill Encounter Details Date Type Department Care Team (Late st Contact Info) Description 01/04/2024 Refill [facility] MEDICINE 230 [place], [place] [phone] Shayla Ferrer DO 230 [place], [place] [phone] Social History Tobacco Use Types Packs/Day Years Used Date Smoking Tobacco: Every Day Cigarettes Passive Smoke Exposure: Current Smokeless Tobacco: Never Comments:4-5 cigs/day Alcohol Use Standard Drinks/Week Comments [...] Description 06/18/2024 9:15 AM EDT Office Visit [facility] MEDICINE 230 [place] [address] Mirtha Lunsford MD 230 [place] [address] 07/18/2024 8:00 AM EDT Office Visit [facility] ADULT DENTAL 230 [place] [address] Rebecca Capps documented as of this encounter Goals Goal Patient Goal Type Associated Problems Recent Progress Patient-Stated? Author Blood Pressure < 140/90 Blood Pressure 145/98( 025 3:08 PM EST) No Victoria Mayo PharmD Reduce tobacco use (cigarettes, smokeless, etc) Tobacco Use No Victoria Mayo PharmD documented as of this encounter Visit Diagnoses Not on filedocumented in this encounter Additional Health Concerns Assessment Noted Time PHQ-9 Depression Total Score: 0 06/17/19 24 9:26 AM EDT documented as of this encounter Care Teams Cessation Systems Outreach Specialist Relationship Specialty Start Date End Date Mirtha Lunsford MD [address] [place] [address] PCP - General Family Medicine 03/04/15 Victoria Radford PharmD [address] [place] [address] Pharmacist Internal Medicine 08/03/22 Acosta Sinha FNP [address] [place] [address] Nurse Practitioner Family Medicine 01/17/23 Flip Wan MD [address] [place] [address] Pulmonary Disease 02/02/24 Dmitri Sequeira MD 100 [facility] 200 [place] [address] Nephrology 02/10/24 Stephane Pisano MD [address] [place] [address] 3rd [place] [address] General Surgery 02/10/24 Melvin Claros MD [address]96 [place] [address] Cardiology 04/16/24 NARAYAN LICEA Meter Readers SupervisorWhizzer 01/06/23 02/06/24 Ghassan Fletcher Meter Readers SupervisorWhizzer 02/07/24 documented as of this encounter
--- OUTSIDE RECORDS SUMMARY | 2024-04-20 09:35 | XMS_ITS | Encounter Summary ---
Author Organization [employer] Address [address] [facility] [facility] [address] 7t [place] [address] Care Team Providers Care Operating Room Specialist Name Role Phone Mirtha Lunsford MD Primary Care Provider +- [phone] Victoria Radford PharmD Unavailable Acosta Sinha REHAB DIRECTOR OCCUPATIONAL THERAPIST Unavailable Unavailable Flip Wan MD Unavailable [phone] Dmitri Sequeira MD Unavailable [phone] Stephane Pisano MD Unavailable [phone] Melvin Claros MD Unavailable [phone] Reason for Visit * Reason Comments Med Refill Encounter Details Date Type Department Care Team (Late st Contact Info) Description 11/13/2022 Refill [facility] [address] [place] [address] [phone] Mirtha Lunsford MD 230 [place], [place] [phone] Essential hypertension (Primary Dx) Social History Tobacco Use Types Packs/Day Years [...] Description 06/18/2024 9:15 AM EDT Office Visit [facility] MEDICINE 230 [place] [address] Mirtha Lunsford MD 230 [place] [address] 07/18/2024 8:00 AM EDT Office Visit [facility] ADULT DENTAL [address] [place] [address] Rebecca Capps documented as of this encounter Goals Goal Patient Goal Type Associated Problems Recent Progress Patient-Stated? Author Blood Pressure < 140/90 Blood Pressure 145/98( 025 3:08 PM EST) No Victoria Mayo PharmD documented as of this encounter Visit Diagnoses Diagnosis Essential hypertension- Primary Unspecified essential hypertension documented in this encounter Additional Health Concerns Assessment Noted Time PHQ-9 Depression Total Score: 10 023 3:38 PM EDT documented as of this encounter Care Teams Operating Room Specialist Relationship Specialty Start Date End Date Mirtha Lunsford MD [address] [place] [address] PCP - General Family Medicine 03/04/15 Victoria Radford PharmD [address] [place] [address] Pharmacist Internal Medicine 08/03/22 Acosta Sinha FNP [address] [place] [address] Nurse Practitioner Family Medicine 01/17/23 Flip Wan MD [address] [place] [address] Pulmonary Disease 02/02/24 Dmitri Sequeira MD [address] [place] [address] Nephrology 02/10/24 Stephane Pisano MD [address] [place] [address] 3[address] [place] [address] General Surgery 02/10/24 Melvin Claros MD 596 [place] [address] Cardiology 04/16/24 NARAYAN LICEA Customer Retention RepresentativeMedical Doctor Nuclear Medicine 01/06/23 02/06/24 Ghassan Fletcher Customer Retention RepresentativeMedical Doctor Nuclear Medicine 02/07/24 documented as of this encounter
--- OUTSIDE RECORDS SUMMARY | 2024-04-20 09:35 | XMS_ITS | Encounter Summary ---
Author Organization [employer] Address [address] [facility] [address] 7t [place] [address] Care Team Providers Care Hearing Stenographer Name Role Phone Mirtha Lunsford MD Primary Care Provider + [phone] Victoria Radford PharmD Unavailable [phone] Acosta Sinha PURCHASING COORDINATOR Unavailable Unavailable Flip Wan MD Unavailable [phone] Dmitri Sequeira MD Unavailable [phone] Stephane Pisano MD Unavailable [phone] Melvin Claros MD Unavailable [phone] Encounter Details Date Type Department Care Team (Late st Contact Info) Description 08/24/2023 Abstract [facility] MEDICINE 230 [place], [place] [phone] Mirtha Lunsford MD 230 [place], [place] [phone] Social History Tobacco Use Types Packs/Day Years [...] housing situation today? I have nava laureano 12/06/[address] you li ve. Do you have problems with any of the following? None of the above 12/06/2022 Food Insecurity Answer Date Recorded Within the past 12 months, y ou worried that your food would run out before you got money to buy more: Never True 12/06/2022 Within the past 12 months,th e food you bought just didn't last and you didn't have enough money to get more: Never True Transportation Answer Date Recorded In the past 12 months, has l ack of transportation kept you from medical appts, meetings, work or from getting things needed for daily living? No 12/06/2022 Utilities Answer Date Recorded In the past 12 months, has t he electric, gas, oil or water company threatened to shut off services in your home? No 12/06/2022 Depression Answer Date Recorded Patient Health Questionnaire-2 Score 0 06/17/2023 Sex and Gender Information Value Date Recorded Sex Assigned at Male 12/21/2021 10:19 AM EDT Legal Sex Male 10:19 AM EDT Gender Identity Male 12/21/2021 10:19 AM EDT Sexual Orientation Straight 12/21/2021 10 :19 AM EDT documented as of this encounter Plan of Treatment Upcoming Encounters Date Type Department Care Team (Late st Contact Info) Description 06/18/2024 9:15 AM EDT Office Visit [facility] MEDICINE 230 [place] [address] Mirtha Lunsford MD 230 [place] [address] 07/18/2024 8:00 AM EDT Office Visit [facility] ADULT DENTAL 230 [place] [address] Rebecca Capps documented as of this encounter Goals Goal Patient Goal Type Associated Problems Recent Progress Patient-Stated? Author Blood Pressure < 140/90 Blood Pressure 145/98( 025 3:08 PM EST) No Piers-Gambl e, Victoria, PharmD Reduce tobacco use (cigarettes, smokeless, etc) Tobacco Use No Piers-Gambl e, Victoria, PharmD documented as of this encounter Procedures Procedure Name Priority Date/Time Associated Diagnosis Comments HM COLONOSCOPY Routine 08/24/2023 2:44 PM EDT documented in this encounter Visit Diagnoses Not on filedocumented in this encounter Additional Health Concerns Assessment Noted Time PHQ-9 Depression Total Score: 0 06/17/19 9:26 AM EDT documented as of this encounter Care Teams Hearing Stenographer Relationship Specialty Start Date End Date Mirtha Lunsford MD 230 [place] [address] PCP - General Family Medicine 03/04/15 Victoria Radford, GypsyD [address] [place] [address] Pharmacist Internal Medicine 08/03/22 Acosta Sinha FNP [address] [place] [address] Nurse Practitioner Family Medicine 01/17/23 Flip Wan MD [address] [place] [address] Pulmonary Disease 02/02/24 Dmitri Sequeira MD [address] [address] Nephrology 02/10/24 Stephane Pisano MD [address] [place] [address] 3rd [place] [address] General Surgery 02/10/24 Melvin Claros MD 596 [place] [address] Cardiology 04/16/24 NARAYAN LICEA SensitizerDeoiling Machine Operator 01/06/23 02/06/24 Ghassan Fletcher SensitizerDeoiling Machine Operator 02/07/24 documented as of this encounter
--- OUTSIDE RECORDS SUMMARY | 2024-04-20 09:35 | XMS_ITS | Encounter Summary ---
Author Organization [employer] Address [address] [facility] [address] 7t [place] [address] Care Team Providers Care Executive Producer [employer]os Name Role Phone Mirtha Lunsford MD Primary Care Provider +- [phone] Victoria Radford PharmD Unavailable Acosta Sinha LABEL STITCHER Unavailable Unavailable Flip Wan MD Unavailable [phone] Dmitri Sequeira MD Unavailable [phone] Stephane Pisano MD Unavailable [phone] Melvin Claros MD Unavailable [phone] Reason for Visit * Reason Comments Med Refill Encounter Details Date Type Department Care Team (Late st Contact Info) Description 04/03/2024 Refill [facility] MEDICINE 230 [place], [place] [phone] Mirtha Lunsford MD 230 [place] [address] Mild intermittent asthma without complication Social History Tobacco Use Types Packs/Day Years [...] Description 06/18/2024 9:15 AM EDT Office Visit [facility] MEDICINE 230 [place] [address] Mirtha Lunsford MD 230 [place] [address] 07/18/2024 8:00 AM EDT Office Visit [facility] ADULT DENTAL 230 [place] [address] Rebecca Capps documented as of this encounter Goals Goal Patient Goal Type Associated Problems Recent Progress Patient-Stated? Author Blood Pressure < 140/90 Blood Pressure 145/98( 025 3:08 PM EST) No Victoria Mayo PharmD Reduce tobacco use (cigarettes, smokeless, etc) Tobacco Use No Victoria Mayo PharmD documented as of this encounter Visit Diagnoses Diagnosis Mild intermittent asthma without complication documented in this encounter Additional Health Concerns Assessment Noted Time PHQ-9 Depression Total Score: 0 06/17/19 24 9:26 AM EDT documented as of this encounter Care Teams Executive Producer Promos Relationship Specialty Start Date End Date Mirtha Lunsford MD 230 [place] [address] PCP - General Family Medicine 03/04/15 Victoria Radford PharmD [address] [place] [address] Pharmacist Internal Medicine 08/03/22 Acosta Sinha FNP [address] [place] [address] Nurse Practitioner Family Medicine 01/17/23 Flip Wan MD [address] [place] [address] Pulmonary Disease 02/02/24 Dmitri Sequeira MD [address] [place] [address] Nephrology 02/10/24 Stephane Pisano MD [address] [place] [address] 3rd [place] [address] General Surgery 02/10/24 Melvin Claros MD 5[address] [place] [address] Cardiology 04/16/24 Ghassan Fletcher Senior Sql Server DeveloperCard Clothier 02/07/24 documented as of this encounter
--- OUTSIDE RECORDS SUMMARY | 2024-04-20 09:35 | XMS_ITS | Encounter Summary ---
Author Organization [employer] Address [address] [facility] [address] 7t [place] [address] Care Team Providers Care Test Desk Supervisor Name Role Phone Mirtha Lunsford MD Primary Care Provider +- [phone] Victoria Radford PharmD Unavailable [phone] Acosta Sinha Unavailable Unavailable Flip Wan MD Unavailable [phone] Dmitri Sequeira MD Unavailable [phone] Stephane Pisano MD Unavailable [phone] Melvin Claros MD Unavailable [phone] Reason for Visit * Reason Comments Med Refill Encounter Details Date Type Department Care Team (Late st Contact Info) Description 02/02/2023 Refill [facility] MEDICINE 230 [place] [address] Acosta Sinha FNP Social History Tobacco Use Types Packs/Day Years Used Date Smoking Tobacco: Every Day Cigarettes Passive Smoke Exposure: Current Smokeless Tobacco: Never Comments:6 cigs Alcohol Use Standard Drinks/Week Comments Yes 0 (1 standard drink = 0.6 oz pur e alcohol) occasionally Depression Answer Date Recorded Patient Health Questionnaire-9 Score 10 07/12/2022 Housing Stability Answer Date Recorded What is [...] Description 06/18/2024 9:15 AM EDT Office Visit [facility] MEDICINE [address] [place] [address] Mirtha Lunsford MD [address] [place] [address] 07/18/2024 8:00 AM EDT Office Visit [facility] ADULT DENTAL [address] [place] [address] Rebecca Capps documented as of this encounter Goals Goal Patient Goal Type Associated Problems Recent Progress Patient-Stated? Author Blood Pressure < 140/90 Blood Pressure 145/98( 025 3:08 PM EST) No Victoria Mayo, PharmD documented as of this encounter Visit Diagnoses Not on filedocumented in this encounter Additional Health Concerns Assessment Noted Time PHQ-9 Depression Total Score: 10 023 3:38 PM EDT documented as of this encounter Care Teams Test Desk Supervisor Relationship Specialty Start Date End Date Mirtha Lunsford MD [address] [place] [address] PCP - General Family Medicine 03/04/15 Victoria Radford, Duy 230 [place] [address] Pharmacist Internal Medicine 08/03/22 Acosta Sinha FNP 230 [place] [address] Nurse Practitioner Family Medicine 01/17/23 Flip Wan MD [address] [place] [address] Pulmonary Disease 02/02/24 Dmitri Sequeira MD [address] [address] Nephrology 02/10/24 Stephane Pisano MD [address] [place] [address] 3rd [place] [address] General Surgery 02/10/24 Melvin Claros MD 596 [place] [address] Cardiology 04/16/24 NARAYAN LICEA Pole PeelerMonitoring Engineer 01/06/23 02/06/24 Ghassan Fletcher Pole PeelerMonitoring Engineer 02/07/24 documented as of this encounter
--- OUTSIDE RECORDS SUMMARY | 2024-04-20 09:35 | XMS_ITS | Encounter Summary ---
Author Organization [employer] Address [address] [facility] [address] 7[address] [place] [address] Care Team Providers Care Lifeguard Name Role Phone Mirtha Lunsford MD Primary Care Provider +- [phone] Victoria Radford PharmD Unavailable [phone] Acosta Sinha SALES FORCE DEVELOPER Unavailable Unavailable Flip Wan MD Unavailable [phone] Dmitri Sequeira MD Unavailable [phone] Stephane Pisano MD Unavailable [phone] Melvin Claros MD Unavailable [phone] Reason for Visit * Reason Comments Med Refill Encounter Details Date Type Department Care Team (Late st Contact Info) Description 04/16/2024 Refill [facility] [address] [place] [address] [phone] Anibal Lenz MD 230 [place], [place] [phone] Sacroiliac joint dysfunction Social History Tobacco Use Types Packs/Day Years [...] Description 06/18/2024 9:15 AM EDT Office Visit [facility] MEDICINE 230 [place] [address] Mirtha Lunsford MD 230 [place] [address] 07/18/2024 8:00 AM EDT Office Visit [facility] ADULT DENTAL 230 [place] [address] Rebecca Capps documented as of this encounter Goals Goal Patient Goal Type Associated Problems Recent Progress Patient-Stated? Author Blood Pressure < 140/90 Blood Pressure 145/98( 025 3:08 PM EST) No Victoria Mayo PharmD Reduce tobacco use (cigarettes, smokeless, etc) Tobacco Use No Victoria Mayo PharmD documented as of this encounter Visit Diagnoses Diagnosis Sacroiliac joint dysfunction Nonallopathic lesion of sacral region, not elsewhere classified documented in this encounter Additional Health Concerns Assessment Noted Time PHQ-9 Depression Total Score: 0 06/17/19 24 9:26 AM EDT documented as of this encounter Care Teams Lifeguard Relationship Specialty Start Date End Date Mirtha Lunsford MD 230 [place] [address] PCP - General Family Medicine 03/04/15 Victoria Radford PharmD [address] [place] [address] Pharmacist Internal Medicine 08/03/22 Acosta Sinha FNP [address] [place] [address] Nurse Practitioner Family Medicine 01/17/23 Flip Wan MD [address] [place] [address] Pulmonary Disease 02/02/24 Dmitri Sequeira MD [address] [facility] 200 [place] [address] Nephrology 02/10/24 Stephane Pisano MD [address] [place] [address] 3rd [place] [address] General Surgery 02/10/24 Melvin Claros MD 596 [place] [address] Cardiology 04/16/24 Ghassan Fletcher Planner/SchedulerProduction Cell Leader 02/07/24 documented as of this encounter
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
--- OUTSIDE RECORDS SUMMARY | 2024-04-20 09:35 | XMS_ITS | Encounter Summary ---
Author Organization [facility] Address [address] 7t [place] [address] Care Team Providers Care Instructor Private Name Role Phone Mirtha Lunsford MD Primary Care Provider + [phone] Victoria Radford PharmD Unavailable Acosta Sinha HALL MONITOR Unavailable Unavailable Flip Wan MD Unavailable [phone] Dmitri Sequeira MD Unavailable [phone] Stephane Pisano MD Unavailable [phone] Melvin Claros MD Unavailable [phone] Encounter Details Date Type Department Care Team (Latest Contact Info) Description 07/25/2020 Abstract [facility] CONVERSIONS Dental, Provider, DDS Social History [...] Description 06/18/2024 9:15 AM EDT Office Visit [facility] MEDICINE [address] [place], [place] [phone] Mirtha Lunsford MD [address] [place] [address] 07/18/2024 8:00 AM EDT Office Visit [facility] ADULT DENTAL [address] [place] [address] Rebecca Capps documented as of this encounter Visit Diagnoses Not on filedocumented in this encounter Care Teams Instructor Private Relationship Specialty Start Date End Date Mirtha Lunsford MD [address] [place] [address] PCP - General Family Medicine 03/04/15 Victoria Radford, GypsyD [address] [place] [address] Pharmacist Internal Medicine 08/03/22 Acosta Sinha FNP [address] [place] [address] Nurse Practitioner Family Medicine 01/17/23 Flip Wan MD [address] [place] [address] Pulmonary Disease 02/02/24 Dmitri Sequeira MD [address] [facility] [address] [place] [phone] Nephrology 02/10/24 Stephane Pisano MD [address] [place] [address] 3rd [place] [address] General Surgery 02/10/24 Melvin Claros MD [address] [place] [address] Cardiology 04/16/24 NARAYAN LICEA Fur JoinerOil Lease Buyer 01/06/23 02/06/24 Ghassan Fletcher Fur JoinerOil Lease Buyer 02/07/24 documented as of this encounter
--- OUTSIDE RECORDS SUMMARY | 2024-04-20 09:35 | XMS_ITS | Encounter Summary ---
Author Organization [employer] Address [address] [place] [address] Care Team Providers Care Business Administration Professor Name Role Phone Mirtha Lunsford MD Primary Care Provider +- [phone] Victoria Radford PharmD Unavailable Acosta Sinha SENIOR RESEARCH ANALYST Unavailable Unavailable Flip Wan MD Unavailable [phone] Dmitri Sequeira MD Unavailable [phone] Stephane Pisano MD Unavailable [phone] Melvin Claros MD Unavailable [phone] Reason for Visit * Reason Comments Med Refill Encounter Details Date Type Department Care Team (Late st Contact Info) Description 04/12/2024 Refill [facility] MEDICINE [address] [place], [place] [phone] Mirtha Lunsford MD [address] [place] [address] Moderate persistent asthma without complication Social History Tobacco Use [...] Description 06/18/2024 9:15 AM EDT Office Visit [facility] MEDICINE [address] [place] [address] Mirtha Lunsford MD [address] [place] [address] 07/18/2024 8:00 AM EDT Office Visit [facility] ADULT DENTAL [address] [place] [address] Rebecca Capps documented as of this encounter Goals Goal Patient Goal Type Associated Problems Recent Progress Patient-Stated? Author Blood Pressure < 140/90 Blood Pressure 145/98( 025 3:08 PM EST) No Victoria Mayo PharmNaresh Reduce tobacco use (cigarettes, smokeless, etc) Tobacco Use No Victoria Mayo PharmD documented as of this encounter Visit Diagnoses Diagnosis Moderate persistent asthma without complication documented in this encounter Additional Health Concerns Assessment Noted Time PHQ-9 Depression Total Score: 0 06/17/19 24 9:26 AM EDT documented as of this encounter Care Teams Business Administration Professor Relationship Specialty Start Date End Date Mirtha Lunsford MD [address] [place] [address] PCP - General Family Medicine 03/04/15 Victoria Radford PharmD [address] [place] [address] Pharmacist Internal Medicine 08/03/22 Acosta Sinha FNP [address] [place] [address] Nurse Practitioner Family Medicine 01/17/23 Flip Wan MD [address] [place] [address] Pulmonary Disease 02/02/24 Dmitri Sequeira MD [address] [place] [phone] Nephrology 02/10/24 Stephane Pisano MD [address] [place] [address] [address] [place] [address] General Surgery 02/10/24 Melvin Claros MD [address] [place] [address] Cardiology 04/16/24 Ghassan Fletcher Metalizer Field OperationIntegrated Logistics Programs Director 02/07/24 documented as of this encounter
--- OUTSIDE RECORDS SUMMARY | 2024-04-20 09:35 | XMS_ITS | Encounter Summary ---
Author Organization [employer] Address [address] [place] [address] Care Team Providers Care Naval Science Teacher Name Role Phone Mirtha Lunsford MD Primary Care Provider [phone]- [phone] Victoria Radford PharmD Unavailable [phone] Acosta Sinha METALSMITH APPRENTICE Unavailable Unavailable Flip Wan MD Unavailable [phone] Dmitri Sequeira MD Unavailable [phone] Stephane Pisano MD Unavailable [phone] Melvin Claros MD Unavailable [phone] Encounter Details Date Type Department Care Team (Late st Contact Info) Description 04/17/2024 3:00 PM EST Office Visit [facility] [address] [place] [phone] Name, MD Kwame [address] [place] [address] Flu-like symptoms (Primary Dx); Moderate persistent asthma without complication Social History [...] AM EDT documented as of this encounter Last Filed Vital Signs Vital Sign Reading [...] Mass Index 32.56 04/17/2024 3:08 PM EST documented in this encounter Progress Notes * Nadine Melissa MA - 04/17/2024 3:00 PM EST * Kwame Tariq MD - 04/17/2024 3:00 PM EST Subjective Patient ID: Yuri Dotson is a 54 y.o. male who presents for No chief complaint on file.. Patient comes for a sick visit. The patient has 2 days of malaise, body aches, fevers, chills, cough and wheezing. He has a personal history of asthma. Rapid testing for flu was positive today. Review of Systems Constitutional: Positive for fatigue and fever. HENT: Negative for sore throat. Respiratory: Positive for cough, shortness of breath and wheezing. Cardiovascular: Negative for chest pain. Musculoskeletal: Positive for myalgias. Visit Vitals BP (!) 145/98 (BP Location: Right arm, Patient Position: Sitting, BP Cuff Size: Large adult) Pulse 104 Temp 99 ??F (37.2 ??C) (Oral) Resp 20 Ht 5' 8 (1.727 m) Wt 214 lb 2 oz (97.1 kg) SpO2 94% BMI 32.56 kg/m?? Smoking Status Every Day BSA 2.16 m?? Objective Physical Exam Constitutional: Appearance: Normal appearance. Cardiovascular: Rate and Rhythm: Normal rate and regular rhythm. Heart sounds: No murmur heard. Pulmonary: Effort: Pulmonary effort is normal. No respiratory distress. Breath sounds: Wheezing present. No rhonchi or rales. Abdominal: Palpations: Abdomen is soft. Tenderness: There is no abdominal tenderness. Musculoskeletal: Right lower leg: No edema. Left lower leg: No edema. Neurological: Mental Status: He is alert. Latest Reference Range & Units 04/17/24 15:22 Influenza A Negative, Indeterminate Positive ! Influenza B Negative, Indeterminate Negative Rapid COVID Ag Negative !: Data is abnormal Assessment/Plan Diagnoses and all orders for this visit: Flu-like symptoms Comments: Patient is having symptoms of flu and asthma exacerbation. Rapid testing for flu A was positive. I recommended rest, drink plenty of fluids, Tylenol 3 times a day as needed, 5-day course of prednisone, course of Tamiflu, continue current inhalers, mask at home until he is feeling better. He is recommended to call or come back if he does not feel much better by next week. Orders: - POCT Rapid Covid-19 BinaxNOW - POCT Rapid Influenza B ESCOBEDO ID NOW - POCT Rapid Influenza A ESCOBEDO ID NOW Moderate persistent asthma without complication - albuterol (Ventolin HFA) 108 (90 Base) MCG/ACT inhaler; INHALE 2 PUFFS BY MOUTH EVERY 4 HOURS NEEDED FOR WHEEZING OR SHORTNESS OF BREATH Other orders - predniSONE (Deltasone) 20 MG tablet; Take 2 tablets (40 mg) by mouth Once per day for 5 days. - oseltamivir (Tamiflu) 75 MG capsule; Take 1 capsule (75 mg) by mouth 2 times daily for 5 days. - acetaminophen (Tylenol Extra Strength) 500 MG tablet; Take 1 tablet (500 mg) by mouth every 8 (eight) hours if needed for fever. documented in this encounter Plan of Treatment Upcoming Encounters Date Type Department Care Team (Late st Contact Info) Description 06/18/2024 9:15 AM EDT Office Visit [facility] MEDICINE [address] [place] [phone] Mirtha Lunsford MD [address] [place] [address] 07/18/2024 8:00 AM EDT Office Visit [facility] ADULT DENTAL [address] [place] [address] Rebecca Capps documented as of this encounter Goals Goal Patient Goal Type Associated Problems Recent Progress Patient-Stated? Author Blood Pressure < 140/90 Blood Pressure 145/98( 025 3:08 PM EST) No Piers-Gambl e, Victoria, PharmD Reduce tobacco use (cigarettes, smokeless, etc) Tobacco Use No Piers-Gambl e, Victoria, PharmD documented as of this encounter Procedures Procedure Name Priority Date/Time Associated Diagnosis Comments POCT INFLUENZA B (ID NOW RAPID MOLECULAR) Routine 04/17/2024 3:22 PM EST Flu-like symptoms POCT INFLUENZA A (ID NOW RAPID MOLECULAR) Routine 04/17/2024 3:22 PM EST Flu-like symptoms POCT RAPID COVID ANTIGEN Routine 04/17/2024 3:22 PM EST Flu-like symptoms documented in this encounter Results * (ABNORMAL) POCT Rapid Influenza A ESCOBEDO ID NOW (04/17/2024 3:22 PM EST) [facility] Influenza A Positive( A) Negative, Indeterminate [facility] Swab 04/17/2024 3:22 PM EST us Kwame Tariq MD POINT OF CARE TEST ENTER/EDIT OR DERABLES Final Result Performing Organization Address [facility] de Phone Number [facility] [address] [place] [phone] * POCT Rapid Influenza B ESCOBEDO ID NOW (04/17/2024 3:22 PM EST) [facility] Influenza B Negative Negative, Indeterminate [facility] Swab 04/17/2024 3:22 PM EST us Kwame Tariq MD POINT OF CARE TEST ENTER/EDIT OR DERABLES Final Result Performing Organization Address [facility] de Phone Number [facility] [address] [place] [phone] * POCT Rapid Covid-19 BinaxNOW (04/17/2024 3:22 PM EST) [facility] Rapid COVID Ag Negative [facility] Swab 04/17/2024 3:22 PM EST us Kwame Tariq MD POINT OF CARE TEST ENTER/EDIT OR DERABLES Final Result [facility] [address] [place] [address] [phone] documented in this encounter Visit Diagnoses Diagnosis Flu-like symptoms- Primary Moderate persistent asthma without complication documented in this encounter Additional Health Concerns Assessment Noted Time PHQ-9 Depression Total Score: 0 06/17/19 24 9:26 AM EDT documented as of this encounter Care Teams Naval Science Teacher Relationship Specialty Start Date End Date Mirtha Lunsford MD [address] [place] [address] PCP - General Family Medicine 03/04/15 Victoria Radford PharmD [address] [place] [address] Pharmacist Internal Medicine 08/03/22 Acosta Sinha FNP [address] [place] [address] Nurse Practitioner Family Medicine 01/17/23 Flip Wan MD [address] [place] [address] Pulmonary Disease 02/02/24 Dmitri Sequeira MD [address] [phone] Nephrology 02/10/24 Stephane Pisano MD [address] [place] [address] 3rd [place] [address] General Surgery 02/10/24 Melvin Claros MD [address] [place] [address] Cardiology 04/16/24 Ghassan Fletcher Blade FilerPrevention Coordinator 02/07/24 documented as of this encounter
--- OUTSIDE RECORDS SUMMARY | 2024-04-20 09:35 | XMS_ITS | Encounter Summary ---
Author Organization [employer] Address [address] 7[address] [place] [address] Care Team Providers Care Rubber Mill Operator Name Role Phone Mirtha Lunsford MD Primary Care Provider +- [phone] Victoria Radford PharmD Unavailable [phone] Acosta Sinha PUBLIC RELATIONS MANAGER Unavailable Unavailable Flip Wan MD Unavailable [phone] Dmtiri Sequeira MD Unavailable [phone] Stephane Pisano MD Unavailable [phone] Reason for Visit * Reason Comments Med Refill Encounter Details Date Type Department Care Team (Late st Contact Info) Description 04/03/2024 Refill [facility] [address] [place], [place] [phone] Mirtha Lunsford MD [address] [place], [place] [phone] Chronic bilateral low back pain, unspecified whether sciatica present; Mild intermittent asthma without complication Social History [...] 9:15 AM EDT Office Visit [facility] [address] [place] [address] Mirtha Lunsford MD [address] [place] [address] 07/18/2024 8:00 AM EDT Office Visit [facility] [address] [place] [address] Rebecca Capps documented as of this encounter Goals Goal Patient Goal Type Associated Problems Recent Progress Patient-Stated? Author Blood Pressure < 140/90 Blood Pressure 145/98( 025 3:08 PM EST) No Victoria Mayo PharmD Reduce tobacco use (cigarettes, smokeless, etc) Tobacco Use No Victoria Mayo PharmD documented as of this encounter Visit Diagnoses Diagnosis Chronic bilateral low back pain, unspecified whether sciatica present Mild intermittent asthma without complication documented in this encounter Additional Health Concerns Assessment Noted Time PHQ-9 Depression Total Score: 0 06/17/19 24 9:26 AM EDT documented as of this encounter Care Teams Rubber Mill Operator Relationship Specialty Start Date End Date Mirtha Lunsford MD [address] [place] [address] PCP - General Family Medicine 03/04/15 Victoria Radford PharmD [address] [place] [address] Pharmacist Internal Medicine 08/03/22 Acosta Sinha FNP [address] [place] [address] Nurse Practitioner Family Medicine 01/17/23 Flip Wan MD [address] [place] [address] Pulmonary Disease 02/02/24 Dmitri Sequeira MD [address] [address] Nephrology 02/10/24 Stephane Pisano MD [address] [place] [address] 3rd [place] [address] General Surgery 02/10/24 Ghassan Fletcher Public Service DirectorHydro Plant Technician 02/07/24 documented as of this encounter
--- OUTSIDE RECORDS SUMMARY | 2024-04-20 09:35 | XMS_ITS | Encounter Summary ---
Author Organization [employer] Address [address] 7t [place] [address] Care Team Providers Care Recovery Room Rn Name Role Phone Mirtha Lunsford MD Primary Care Provider +- [phone] Victoria Radford PharmD Unavailable [phone] Acosta Sinha SHOCHET Unavailable Unavailable Flip Wan MD Unavailable [phone] Dmitri Sequeira MD Unavailable [phone] Stephane Pisano MD Unavailable [phone] Melvin Claros MD Unavailable [phone] Reason for Visit * Reason Comments Med Refill Encounter Details Date Type Department Care Team (Late st Contact Info) Description 09/06/2023 Refill [facility] 230 [place], [place] [phone] Mirtha Lunsford MD 230 [place] [address] Social History Tobacco Use Types Packs/Day Years [...] Description 06/18/2024 9:15 AM EDT Office Visit [facility] [address] [place] [address] Mirtha Lunsford MD 230 [place] [address] 07/18/2024 8:00 AM EDT Office Visit [facility] 230 [place] [address] Rebecca Capps documented as of this encounter Goals Goal Patient Goal Type Associated Problems Recent Progress Patient-Stated? Author Blood Pressure < 140/90 Blood Pressure 145/98( 025 3:08 PM EST) No Piers-Gambl e, Victoria, PharmD Reduce tobacco use (cigarettes, smokeless, etc) Tobacco Use No Piers-Gambl e, Victoria, PharmD documented as of this encounter Visit Diagnoses Not on filedocumented in this encounter Additional Health Concerns Assessment Noted Time PHQ-9 Depression Total Score: 0 06/17/19 9:26 AM EDT documented as of this encounter Care Teams Recovery Room Rn Relationship Specialty Start Date End Date Mirtha Lunsford MD 230 [place] [address] PCP - General Family Medicine 03/04/15 Victoria Radford, GypsyD [address] [place] [address] Pharmacist Internal Medicine 08/03/22 Acosta Sinha FNP [address] [place] [address] Nurse Practitioner Family Medicine 01/17/23 Flip Wan MD [address] [place] [address] Pulmonary Disease 02/02/24 Dmitri Sequeira MD 100 [facility] 200 [place] [address] Nephrology 02/10/24 Stephane Pisano MD [address] [place] [address] 3rd [place] [address] General Surgery 02/10/24 Melvin Claros MD 596 [place] [address] Cardiology 04/16/24 NARAYAN LICEA Systems TechnicianBathing Suit Maker 01/06/23 02/06/24 Ghassan Fletcher Systems TechnicianBathing Suit Maker 02/07/24 documented as of this encounter
--- OUTSIDE RECORDS SUMMARY | 2024-04-20 09:35 | XMS_ITS | Encounter Summary ---
Author Organization [facility] Address 100 [facility] 200 [place] [address] Phone Care Team Providers Care Regional Production Manager Name Role Phone Tavia Mosquera Primary Care Provider [phone] Reason for Referral * Imaging (Routine) - Closed Specialty Diagnoses / Procedures Referred By Contac t Referred To Contact Diagnoses Right kidney absent Procedures Ultrasound renal limited Dmitri Sequeira MD Phone: tel: fax: Referral ID Status Reason Start Date Expiration Date Visits Re quested Visits Authorized [id number] Closed 09/22/2023 09/21/2024 1 1 Encounter Details Date Type Department Care Team (Latest Contact Info) Description 09/22/2023 Office Communication [facility] 100 [facility] 200 [place] [address] Dmitri Sequeira MD [address] [facility] 204 [place] [phone] Right kidney absent (Primary Dx) Social History Tobacco Use Types [...] on file Sexual Orientation Not on file documented as of this encounter Miscellaneous Notes * Telephone Encounter - Dmitri Sequeira MD - 09/23/2023 5:31 AM EDT Make up vcahrt as I saw him--put on schedule 09/22/23 so I coastal/harbor defense officer write a note * Telephone Encounter - Dmitri Sequeira MD - 09/22/2023 4:29 PM EDT Pls make up cahrt so I can write note and bbill--he was seen 09/22/23 documented in this encounter Plan of Treatment Scheduled Orders Name Type Priority Associated Diagnoses Orde r Schedule Renal Function Panel Lab Routine Right kidney absent Expected: 08/21/2024, Expires: 10/22/2024 Urinalysis with microscopic Lab Routine Right kidney absent Expected: 08/21/2024, Expires: 10/22/2024 Urine Albumin / Creatinine Ratio Lab Routine Right kidney absent Expected: 08/21/2024, Expires: 10/22/2024 Protein, Total, Random Urine w/Creatinine (Protein/Creat Ratio) Lab Routine Right kidney absent Expected: 08/21/2024, Expires: 10/22/2024 Ultrasound renal limited Imaging Routine Right kidney absent Expected: 08/21/2024, Expires: 09/21/2024 documented as of this encounter Visit Diagnoses Diagnosis Right kidney absent- Primary documented in this encounter Care Teams Regional Production Manager Relationship Specialty Start Date End Date [facility] [address] [place] [address] PCP - General 04/29/22 documented as of this encounter
--- OUTSIDE RECORDS SUMMARY | 2024-04-20 09:35 | XMS_ITS | Encounter Summary ---
Author Organization [employer] Address [address] [facility] 7t [place] [address] Care Team Providers Care Tattoo And Body Artist Name Role Phone Mirtha Lunsford MD Primary Care Provider + [phone] Victoria Radford PharmD Unavailable [phone] Acosta Sinha BLOW MOULDING MACHINE OPERATOR Unavailable Unavailable Flip Wan MD Unavailable [phone] Dmitri Sequeira MD Unavailable [phone] Stephane Pisano MD Unavailable Melvin Claros MD Unavailable [phone] Encounter Details Date Type Department Care Team (Late st Contact Info) Description 09/08/2022 Abstract [facility] 230 [place] [address] Mirtha Lunsford MD 230 [place], [place] [phone] Social History Tobacco Use Types Packs/Day Years [...] Description 06/18/2024 9:15 AM EDT Office Visit [facility] 230 [place] [address] Mirtha Lunsford MD 230 [place], [place] 07/18/2024 8:00 AM EDT Office Visit [facility] 230 [place] [address] Rebecca Capps documented as of this encounter [...] documented as of this encounter Care Teams Tattoo And Body Artist Relationship Specialty Start Date End Date Mirtha Lunsford MD [address] [place] [address] PCP - General Family Medicine 03/04/15 Victoria Radford, PharmD [address] [place] [address] Pharmacist Internal Medicine 08/03/22 Acosta Sinha FNP [address] [place] [address] Nurse Practitioner Family Medicine 01/17/23 Flip Wan MD [address] [place] [address] Pulmonary Disease 02/02/24 Dmitri Sequeira MD [address] [phone] Nephrology 02/10/24 Stephane Pisano MD [address] [place] [address] 3rd [place] [address] General Surgery 02/10/24 Melvin Claros MD 596 [place] [address] Cardiology 04/16/24 NARAYAN LICEA Manufacturing InspectorSupervisor Acoustical Tile Carpenters 01/06/23 02/06/24 Ghassan Fletcher Manufacturing InspectorSupervisor Acoustical Tile Carpenters 02/07/24 documented as of this encounter
--- OUTSIDE RECORDS SUMMARY | 2024-04-20 09:35 | XMS_ITS | Encounter Summary ---
Author Organization [employer] Address [address] 7t [place] [address] Care Team Providers Care Pack Mule Worker Name Role Phone Mirtha Lunsford MD Primary Care Provider + [phone] [place] Radford PharmD Unavailable Acosta Sinha CONVEYOR TECHNICIAN Unavailable Unavailable Flip Wan MD Unavailable [phone] Dmitri Sequeira MD Unavailable [phone] Stephane Pisano MD Unavailable [phone] Melvin Claros MD Unavailable [phone] Reason for Visit * Reason Comments Med Refill Encounter Details Date Type Department Care Team (Late st Contact Info) Description 12/29/2023 Refill [facility] 230 [place] [address] Anya Muller ANP 230 [place] [address] Essential hypertension Social History Tobacco Use Types Packs/Day Years [...] Description 06/18/2024 9:15 AM EDT Office Visit [facility] 230 [place] [address] Mirtha Lunsford MD 230 [place] [address] 07/18/2024 8:00 AM EDT Office Visit [facility] [address] [place] [address] Rebecca Capps documented as of this encounter Goals Goal Patient Goal Type Associated Problems Recent Progress Patient-Stated? Author Blood Pressure < 140/90 Blood Pressure 145/98( 025 3:08 PM EST) No Victoria Mayo PharmD Reduce tobacco use (cigarettes, smokeless, etc) Tobacco Use No Victoria Mayo PharmD documented as of this encounter Visit Diagnoses Diagnosis Essential hypertension Unspecified essential hypertension documented in this encounter Additional Health Concerns Assessment Noted Time PHQ-9 Depression Total Score: 0 06/17/19 24 9:26 AM EDT documented as of this encounter Care Teams Pack Mule Worker Relationship Specialty Start Date End Date Mirtha Lunsford MD [address] [place] [address] PCP - General Family Medicine 03/04/15 Victoria Radford PharmD [address] [place] [address] Pharmacist Internal Medicine 08/03/22 Acosta Sinha FNP [address] [place] [address] Nurse Practitioner Family Medicine 01/17/23 Flip Wan MD [address] [place] [address] Pulmonary Disease 02/02/24 Dmitri Sequeira MD 100 [facility] 200 [place] [address] Nephrology 02/10/24 Stephane Pisano MD [address] [place] [address] 3rd [place] [address] General Surgery 02/10/24 Melvin Claros MD 596 [place] [address] Cardiology 04/16/24 NARAYAN LICEA Corn ShredderContent Development Manager 01/06/23 02/06/24 Ghassan Fletcher Corn ShredderContent Development Manager 02/07/24 documented as of this encounter
== END 2024-04-20 09:42 | disposition home or self-care (01) ==
PROVIDERS: PCP Family Medicine; Visit Provider Physical Medicine & Rehabilitation
DX: M19.011 Primary osteoarthritis, right shoulder (principal); M79.18 Myalgia, other site; R20.0 Anesthesia of skin; R20.2 Paresthesia of skin
CPT/HCPCS: 99204

== ENCOUNTER → 2024-04-20 09:01 | Outpatient (BNVA) | payer MEDICAID, SELFPAY | PROVIDERS: PCP Family Medicine; Visit Provider Physical Medicine & Rehabilitation | DX: M19.011 Primary osteoarthritis, right shoulder (principal); M79.18 Myalgia, other site; R20.0 Anesthesia of skin; R20.2 Paresthesia of skin; Z98.1 Arthrodesis status | CPT/HCPCS: 99202 ==

== ENCOUNTER 2024-05-31 07:53 | Outpatient (AMB) | payer MEDICAID, SELFPAY ==
--- NOTE | 2024-05-31 07:55 | A.OFFVIS_ITS ---
Vital Signs 05/31/24 07:57 Height 5 ft 8 in Weight 214 lb 15.211 oz BMI 32.7 BP 116/86 Blood Pressure Location Rt brachial Position Sitting Pulse 93 Pulse Source Pulse Oximeter Pulse Oximetry (%) 98 Oxygen Delivery Method Room Air Intake Visit Reasons: Adrenal adenoma Intake Note: Patient present today for Adrenal adenoma follow up visit. Vice President Payment Required: No Accompanied by: Self / Same As Patient Allergies Iodinated Contrast Media Allergy (Severe, Verified 05/31/24 07:58) Unknown levofloxacin Allergy (Mild, Verified 05/31/24 07:58) Rash ibuprofen [From MOTRIN] Allergy (Unknown, Verified 05/31/24 07:58) KIDNEY ISSUES mushroom Adverse Reaction (Mild, Verified 05/31/24 07:58) VOMITING amlodipine Adverse Reaction (Unknown, Verified 05/31/24 07:58) Swelling Medication List - Last Reconciled 05/31/24 by Artur Aguilar MD acetaminophen (Tylenol) 650 mg (2 x 325 mg) PO Q6H PRN albuterol sulfate 90 mcg/actuation 2 puffs inhalation QID PRN albuterol sulfate 90 mcg/actuation 2 inhalations inhalation Q6H PRN albuterol sulfate 2.5 mg (3 mL) inhalation Q4-6H PRN amlodipine 5 mg See Protocol PO DAILY atorvastatin 40 mg PO QAM azithromycin For 250 mg dose pack: take 500 mg today (day 1), then 250 mg for 4 days (days 2-5) azithromycin For 250 mg dose pack: take 500 mg today (day 1), then 250 mg for 4 days (days 2-5) PO benzonatate 100 mg PO TID PRN carvedilol 3.125 mg PO BID cyclobenzaprine 10 mg PO BEDTIME PRN dexamethasone 1 mg PO ONCE escitalopram oxalate (Lexapro) 5 mg PO DAILY escitalopram oxalate 10 mg PO DAILY fluticasone propion-salmeterol 115-21 mcg/actuation (Advair HFA) 2 puffs inhalation Q12H 30 days fluticasone propionate 50 mcg/actuation 1 spray intranasal BID guaifenesin ER 600 mg PO BID hydroxyzine pamoate 50 mg PO DAILY PRN hydroxyzine pamoate 25 mg PO DAILY PRN ipratropium-albuterol 20-100 mcg/actuation (Combivent Respimat) 1 puff inhalation BID levofloxacin 750 mg PO DAILY lisinopril 20 mg PO QAM loratadine 10 mg PO DAILY metoprolol succinate ER 12.5 mg PO DAILY montelukast 10 mg PO BEDTIME nicotine 1 patch transdermal Q24H omalizumab (Xolair) 225 mg subcut Q2W 28 days bkxhtrhdzhinh-LJ-aamcicwzrzd 2.5-5-50 mg/5 mL (Robitussin Cough and Cold CF) 20 mL PO Q4H PRN prednisone 40 mg (2 x 20 mg) PO DAILY prednisone 40 mg (2 x 20 mg) PO DAILY pregabalin (Lyrica) 150 mg PO BID pregabalin (Lyrica) 150 mg PO DAILY sertraline 100 mg PO DAILY sodium,potassium,mag sulfates 17.5-3.13-1.6 gram (Suprep Bowel Prep Kit) DILUTE; drink full amount early evening before AND next morning at least 2 hr before procedure; follow w 960 mL water PO terbinafine HCl 1% 1 appl topical BID HPI Comments Details: 54 yo male today for follow-up visit, for adrenal lesion evaluation. He is feeling well. He had allergic reaction to IV contrast. The had to send the patient to ER after IV contrast was given. He has incidental finding right adrenal nodule found in CT performed in ER back in February 2018. A CT with washout was consistent with benign adenoma. He has had extensive biochemical workup which showed the mass was not secretory with including several dexamethasone suppression test. More recently, he completed a course of steroids for asthma and is going to go for steroid injection next week. Denies no dizziness, denies acne, proximal muscle weakness, y, no violaceous stretch escalante, , denies nausea, vomiting, diarrhea, palpitations, sweating, flushing, headache, anxiety, irritability. FH negative for cancer. personal age appropriate screening for cancer negative. 03/02/18 CT scan. There is a 1.5 cm enhancing right adrenal lesion measuring 69 Hounsfield units. Left adrenal gland is normal. 03/29/19 CT Abdomenr There is 1.3 x 1.4 cm right adrenal lesion. On precontrast exam it measures 17 Hounsfield units. On immediate post contrast it measures 78 Hounsfield units and on delayed 10 minute images it measures 40 Hounsfield units. The absolute washout is 62.3% and related washout is 48.7%. These findings are consistent with benign adrenal adenoma. The left adrenal gland is normal. 04/04/18 CT abdomen with and without contrast. There is a 1.5 cm right adrenal lesion. On precontrast it measures 17 Hounsfield units. On the postcontrast exam it measures 65 Hounsfield units and on 10 minute washout images it measures 30 Hounsfield units. The absolute washout is 72.9% and related washout is 53.8% suggestive of adenoma. The left adrenal gland is normal. Workup for hypersecretion was normal. No sx of pheo or Reese's. The patient is a 54-year-old male presenting with urinary symptoms and surveillance of an adrenal mass. He has experienced sensations of kidney soreness and unusual urination patterns, indicating possible prostate issues or urinary tract infection. Although he acknowledges these urinary symptoms, he does not exhibit signs like increased frequency, urgency, dysuria, or hematuria. Additionally, he has no symptoms such as weight gain, weakness, or features suggestive of Reese syndrome. The adrenal mass is longstanding, and he remains asymptomatic in that regard. These issues are significant considerations that necessitate further urinalysis by PCP to evaluate the potential for infection and ongoing surveillance of the adrenal mass. COUNTS INCLUDE 234 BEDS AT THE [facility] Medical History (Updated 04/20/24 @ 10:12 by Edwige Varela MD) Tubular adenoma Smoker History of rectal polyps Asthma Asthma with exacerbation Hypertension 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 Arthritis Surgical History History of unilateral nephrectomy H/O neck surgery Previous back surgery H/O kidney removal Family History Mother Hypertension Asthma Father Medical history unknown Social History Household Members: None Housing: Apartment Do you presently have visiting nurse or other home services: No Alcohol intake: former Patient Tobacco Use Status: Current everyday Tobacco user Tobacco use type: Cigarette Cigarette Packs Per Day: 0 Cigarettes Per Day: 5 Years Smoked: 20 years e-Cigarette/Vaping Use: Former Use Second Hand Smoke Exposure: No service: No Current occupational status: unemployed 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 The plan is to continued observation. Will repeat 1 mg dexamethasone suppression test 1. Adrenal mass Regular surveillance of the stable adrenal mass is recommended. Cortisol levels should be assessed annually through a dexamethasone suppression test to monitor adrenal function. 2. Urinary symptoms A urinalysis is advised to evaluate for potential urinary tract infection or prostate-related issues. Follow-up with primary care is recommended to arrange for this test, and further evaluation may be necessary based on findings. I discussed the importance of monitoring the adrenal mass annually using a dexamethasone suppression test to ensure stable adrenal function, emphasizing the absence of symptomatic changes such as those seen in [place] syndrome. Regarding urinary symptoms, the patient was advised to undergo urinalysis and contact PCP soon, as immediate identification of any infection is crucial to prevent progression. We discussed potential prostate involvement, given his symptoms, which require additional evaluation if urinalysis results do not reveal infection. The patient understands the rationale behind these assessments and is agreeable to the planned management strategy. - Contact your primary care physician promptly to arrange for a urinalysis. - Follow instructions for performing the dexamethasone suppression test as directed, with prescribed timing. - Report immediately if symptoms worsen or new symptoms develop. - Plan to monitor the adrenal mass yearly with appropriate testing and surveillance. The patient had an opportunity to ask questions regarding treatment plan. The patient expressed understanding and agreement with the above treatment plan. . Patient was informed and verbally consented to the use of an ambient scribe for clinic note documentation during this visit. Orders: Orders Cortisol Random 1 Week D35.01 - Benign neoplasm of right adrenal gland Dexamethasone 1 Week D35.01 - Benign neoplasm of right adrenal gland Medications: New dexamethasone 1 mg PO ONCE 1 tab 0RF Coding Level of Care Code Est Pt Level 3 (32268) Diagnoses 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 D35.01
[2024-05-31 07:57] VITALS: BP 116/86; PULSE 93; O2SAT 98; BMI 32.7
--- OUTSIDE RECORDS SUMMARY | 2024-05-31 07:58 | XMS_ITS | Encounter Summary ---
Author Organization [employer] Address [address] [place] [address] Care Team Providers Care Paving Machine Operator Name Role Phone Mirtha Lunsford MD Primary Care Provider [place] Radford PharmD Unavailable Acosta Sinha RN BUILDING Unavailable Unavailable Flip Wan MD Unavailable [phone] Dmitri Sequeira MD Unavailable [phone] Stephane Pisano MD Unavailable Melvin Claros MD Unavailable [phone] Reason for Visit * Reason Comments Med Refill Encounter Details Date Type Department Care Team (Late st Contact Info) Description 11/15/2022 Refill [facility] [address] [place], [place] [phone] Mirtha Lunsford MD 230 [place], [place] [phone] Seasonal allergies Social History Tobacco Use Types [...] Description 06/18/2024 9:15 AM EDT Office Visit [facility]ICINE 230 [place] [address] Mirtha Lunsford MD 230 [place] [address] 07/18/2024 8:00 AM EDT Office Visit [facility] ADULT DENTAL 230 [place] [address] Rebecca Capps documented as of this encounter Goals Goal Patient Goal Type Associated Problems Recent Progress Patient-Stated? Author Blood Pressure < 140/90 Blood Pressure 132/84( 025 10:22 AM EDT) No Vitcoria Mayo PharmD documented as of this encounter Visit Diagnoses Diagnosis Seasonal allergies Allergic rhinitis, cause unspecified documented in this encounter Additional Health Concerns Assessment Noted Time PHQ-9 Depression Total Score: 10 023 3:38 PM EDT documented as of this encounter Care Teams Paving Machine Operator Relationship Specialty Start Date End Date Mirtha Lunsford MD [address] [place] [address] PCP - General Family Medicine 03/04/15 Victoria Radford, PharmD [address] [place] [address] Pharmacist Internal Medicine 08/03/22 Acosta Sinha FNP [address] [place] [address] Nurse Practitioner Family Medicine 01/17/23 Flip Wan MD [address] [place] [address] Pulmonary Disease 02/02/24 Dmitri Sequeira MD [address] [place] [address] Nephrology 02/10/24 Stephane Pisano MD [address] [place] [address] 3rd [place] [address] General Surgery 02/10/24 Melvin Claros MD 596 [place] [address] Cardiology 04/16/24 NARAYAN LICEA Supplemental NurseHot Mill Shearer 01/06/23 02/06/24 Ghassan Fletcher Supplemental NurseHot Mill Shearer 02/07/24 documented as of this encounter
--- OUTSIDE RECORDS SUMMARY | 2024-05-31 07:58 | XMS_ITS | Encounter Summary ---
Author Organization [employer] Address [address] [facility] [address] 7t [place] [address] Care Team Providers Care Meals On Wheels Driver Name Role Phone Mirtha Lunsford MD Primary Care Provider [phone]- [phone] Victoria Radford PharmD Unavailable [phone] Acosta Sinha BIOFUELS PLANT SUPERINTENDENT Unavailable Unavailable Flip Wan MD Unavailable [phone] Dmitri Sequeira MD Unavailable [phone] Stephane Pisano MD Unavailable [phone] Melvin Claros MD Unavailable [phone] Reason for Visit * Reason Comments Med Refill Encounter Details Date Type Department Care Team (Late st Contact Info) Description 05/08/2024 Refill [facility] [address] [place] [address] [phone] Mirtha Lunsford MD [address] [place], [place] [phone] Social History Tobacco Use Types Packs/Day Years [...] Description 06/18/2024 9:15 AM EDT Office Visit [facility] MEDIC[facility] [address] [place] [address] Mirtha Lunsford MD [address] [place] [address] 07/18/2024 8:00 AM EDT Office Visit [facility] ADULT DENTAL [address] [place] [address] Rebecca Capps documented as of this encounter Goals Goal Patient Goal Type Associated Problems Recent Progress Patient-Stated? Author Blood Pressure < 140/90 Blood Pressure 132/84( 025 10:22 AM EDT) No Victoria Mayo PharmD Reduce tobacco use (cigarettes, smokeless, etc) Tobacco Use No Victoria Mayo PharmD documented as of this encounter Visit Diagnoses Not on filedocumented in this encounter Additional Health Concerns Assessment Noted Time PHQ-9 Depression Total Score: 0 06/17/19 24 9:26 AM EDT documented as of this encounter Care Teams Meals On Wheels Driver Relationship Specialty Start Date End Date Mirtha Lunsford MD [address] [place] [address] PCP - General Family Medicine 03/04/15 Victoria Radford, PharmD [address] [place] [phone] Pharmacist Internal Medicine 08/03/22 Acosta Sinha FNP [address] [place] [address] 54571 Nurse Practitioner Family Medicine 01/17/23 Flip Wan MD [address] [place] [phone] Pulmonary Disease 02/02/24 Dmitri Sequeira MD [address] [phone] Nephrology 02/10/24 Stephane Pisano MD [address] [place] [address] [address] [place] [address] General Surgery 02/10/24 Melvin Claros MD [address] [place] [address] Cardiology 04/16/24 Ghassan Fletcher Records AnalystMedical Record Clerk 02/07/24 documented as of this encounter
--- OUTSIDE RECORDS SUMMARY | 2024-05-31 07:58 | XMS_ITS | Clinical Summary ---
Author Organization [employer] Address [address] [facility] 7t [place] [address] Care Team Providers Care Bank Vault Clerk Name Role Phone Mirtha Lunsford MD Primary Care Provider [phone]- [phone] Victorai Radford PharmD Unavailable [phone] Acosta Sinha TENTER FRAME OPERATOR Unavailable Unavailable Flip Wan MD Unavailable [phone] Dmitri Sequeira MD Unavailable [phone] Stephane Pisano MD Unavailable [phone] Melvin Claros MD Unavailable [phone] Allergies Active Allergy Reactions Criticality Noted Date [...] MOUTH EVERY 12 HOURS 12 g 11 02/24/19 23 Active montelukast (Singulair) 10 MG tabletIndicatio ns:Mild intermittent asthma without complication TAKE 1 TABLET BY MOUTH EVERYDAY AT BEDTIME 90 tablet 1 01/22/20 23 Active atorvastatin (Lipitor) 80 MG tabletIndicatio ns:Dyslipidemia Take 1 tablet (80 mg) by mouth Once per day. 90 tablet 08/24/19 24 Active metoprolol succinate XL (Toprol-XL) 25 MG 24 hr tabletIndicatio ns:Essential hypertension Take 1 tablet by mouth once daily. Do not crush or chew. 90 tablet 3 08/29/19 24 Active omalizumab (Xolair) 150 MG/ML injectionIndica tions:Moderate persistent asthma without complication Inject under the skin. Active albuterol (2.5 MG/3ML) 0.083% nebulizer solutionIndicat ions:Moderate persistent asthma without complication TAKE 3 ML BY NEBULIZATION EVERY 4 (FOUR) HOURS IF NEEDED FOR WHEEZING. 75 mL 2 11/02/19 24 Active terbinafine (Athletes Foot, Terbinafine,) 1 % creamIndication s:Fissures in skin of both feet,Tinea pedis of left foot Apply topically 2 times daily. 42 g 2 12/19/19 24 Active lisinopril 20 MG tabletIndicatio ns:Essential hypertension Take 1 tablet (20 mg) by mouth in the morning. 90 tablet 01/10/20 24 Active mometasone (Elocon) 0.1 % creamIndication s:Rash APPLY TO THE AFFECTED AREA(S) TOPICALLY ONCE DAILY 45 g 1 02/27/19 25 Active loratadine (Claritin) 10 MG tabletIndicatio ns:Seasonal allergies TAKE 1 TABLET BY MOUTH EVERY MORNING 90 tablet 1 03/06/19 25 Active Combivent Respimat 20-100 MCG/ACT inhalerIndicati ons:Mild intermittent asthma without complication INHALE 1 PUFF BY INHALATION ROUTE 4 TIMES EVERY DAY MAY TAKE ADDITIONAL PUFFS NEEDED NOT TO EXCEED 6 PUFFS IN 24HRS 4 g 7 04/03/19 25 Active baclofen (Lioresal) 10 MG tabletIndicatio ns:Sacroiliac joint dysfunction TAKE 1 TABLET BY MOUTH THREE TIMES DAILY IN THE MORNING, AT NOON, AND AT BEDTIME NEEDED FOR MUSCLE SPASMS 60 tablet 1 04/17/19 25 Active lidocaine (Lidoderm) 5 % patchIndication s:Sacroiliac joint dysfunction APPLY 1 PATCH TOPICALLY TO SKIN, LEAVE ON FOR 12 HOURS AND OFF FOR 12 HOURS DIRECTED 30 patch 1 04/27/19 25 Active pregabalin (Lyrica) 150 MG capsuleIndicati ons:Chronic bilateral low back pain, unspecified whether sciatica present TAKE 1 CAPSULE BY MOUTH TWICE DAILY IN THE MORNING AND IN THE EVENING 60 capsule 05/03/19 25 Active albuterol (Ventolin HFA) 108 (90 Base) MCG/ACT inhalerIndicati ons:Moderate persistent asthma without complication INHALE 2 PUFFS BY MOUTH EVERY 4 HOURS NEEDED FOR WHEEZING OR SHORTNESS OF BREATH 18 g 1 05/19/19 25 Active pregabalin (Lyrica) 150 MG capsuleIndicati ons:Chronic bilateral low back pain, unspecified whether sciatica present TAKE 1 CAPSULE BY MOUTH TWICE DAILY IN THE MORNING AND IN THE EVENING 60 capsule 04/03/19 25 2024 Discontinued albuterol (Ventolin HFA) 108 (90 Base) MCG/ACT inhalerIndicati ons:Moderate persistent asthma without complication INHALE 2 PUFFS BY MOUTH EVERY 4 HOURS NEEDED FOR WHEEZING OR SHORTNESS OF BREATH 18 g 1 04/17/19 25 2024 Discontinued acetaminophen (Tylenol Extra Strength) 500 MG tablet Take 1 tablet (500 mg) by mouth every 8 (eight) hours if needed for fever. 90 tablet 04/17/19 25 2024 Active Problems Problem Noted Date Diagnosed Date Hx of chest pain 04/16/2024 Overview (04/16/2024): -Patient followed at [facility] with Dr. Agueda Claros DO. [...] and nutrition interventions discussed. -Patient followed at [facility] with Dr. Agueda Claros [...] retention. I spoke with JULIETA Wood at [facility] pain clinic and they want the last CT scan faxed at [phone], they will fu with patient this week. Order lumbar MRI ro cord compromise Preventative health care 07/02/2022 Overview (12/19/2023): -next physical exam due after 05/29/2024 -eye care facilitated by [facility] -dental home is [facility] -health care proxy filed 12/19/23 Assessment & Plan (12/19/2023 9:30 AM EDT): -next physical exam due after 05/29/2024 -eye care facilitated by [facility] -dental home is [facility] -health care proxy filed 12/19/23 Assessment & Plan (05/30/2023 10:13 AM EDT): -next physical exam due after 02/28/2023 -eye care facilitated by [facility] -dental home is [facility] -health care proxy given on 05/30/2023 Assessment & Plan (11/01/2022 9:15 AM EDT): -next physical exam due after 02/28/2023 -eye care facilitated by [facility] -dental home is Adrenal cortical adenoma 06/28/2022 Overview (02/23/2024): Seen by Dr. Aguilar 05/08/2021 (prior was followed by Dr. Moseley) Hx incidental finding right adrenal nodule found in CT preformed in ER Feb 2018 c/w benign adenoma. Biochemical workup showed mass not racing secretary including dexamethasone suppression test. Repeat CT done [...] benign adenoma. Biochemical workup showed mass not racing secretary including dexamethasone suppression test. Repeat CT done [...] benign adenoma. Biochemical workup showed mass not racing secretary including dexamethasone suppression test. Repeat CT done 2019. Follow up Dr. Aguilar 1 year recommended. -referral placed 05/30/23 Assessment & Plan (01/24/2023 9:53 AM EST): Seen by Dr. Aguilar 05/08/2021 (prior was followed by Dr. Moseley) Hx incidental finding right adrenal nodule found in CT preformed in ER Feb 2018 c/w benign adenoma. Biochemical workup showed mass not racing secretary including dexamethasone suppression test. Repeat CT done [...] plan. Moderate persistent asthma 02/24/2022 Overview (02/02/2024): -make up operator helper Dr. Wan seen 02/02/24 -Well controlled on current regimen of Xolair, Combivent, Advair, albuterol MDI. -last prednisone use 12/28/23 for exacerbation, given by pulmonary Assessment & Plan (02/23/2024 10:09 AM EST): -make up operator helper Dr. Wan seen 02/02/24 -Well controlled on current regimen of Xolair, Combivent, Advair, albuterol MDI. -last prednisone use 12/28/23 for exacerbation, given by pulmonary Assessment & Plan (05/30/2023 12:31 PM EDT): -make up operator helper Dr. Wna seen 12/2022 -Well controlled on current regimen of Xolair, Combivent, Advair, albuterol MDI. Continue current Assessment & Plan (01/24/2023 9:53 AM EST): -make up operator helper Dr. Wan seen 12/2022 -Well controlled on current regimen of Xolair, Combivent, Advair, albuterol MDI. Continue current Assessment & Plan (12/20/2022 8:01 PM EDT): Few wheezing on lung exam,reports feeling well -offered NBZ tx here but refuse states will get at home ,and got pump tx before coming that may cause elevated HR -continue his regular inh and montelukast -continue care w make up operator helper -planned apt for next month -advised to get booster for COVID 19 at vaccine clinic, pt s/p p20 and flu vaccine already Assessment & Plan (11/01/2022 9:02 AM EDT): -make up operator helper Dr. Wan -continue Flovent -continue Singulair -continue albuterol prn Assessment & Plan (06/28/2022 10:09 AM EDT): Normal lung exam. advised to call Dr. Wan, his make up operator helper, for kristan't. continue Flovent, Singulair, may use [...] Tubular adenoma on colonoscopy 03/[address] iPsano, referred 03/2021 follow up 3 years recommended [...] Essential hypertension 08/19/2020 Overview (11/03/2023): -followed by [facility] -echo 03/31/23 EF 60-65% no changes compared to02/2017 -Blood pressure is at goal -Continue lifestyle modifications -Continue current medications -cardiology note from 04/12/23, no changes, follow up 6 months Assessment & Plan (11/03/2023 10:12 AM EDT): -followed by [facility] -echo 03/31/23 EF 60-65% no changes compared to02/2017 -Blood pressure is at goal -Continue lifestyle modifications -Continue current medications -cardiology note from 04/12/23, no changes, follow up 6 months Assessment & Plan (05/30/2023 12:31 PM EDT): -followed by [facility] -echo 03/31/23 EF 60-65% [...] as pharmacomtherapy, [facility] smoking cessation group, and [facility] pharmacy smoking cessation clinic -14mg and 7mg patches trialed 11/01/2022 Discussed USPSTF recommends annual lung cancer screening with low dose CT in people who meet the following criteria: -ages 50 to 80 years. -have a 20 pack-year smoking history. -currently smoke cigarettes or quit within the past 15 years. -LDCT: referral on 05/30/2023 to pharmacy with [facility] Per CDTM: patient seen in CDTM 10/31/23 and reports smoking 4-5cigs/day and denies using NRT, states he will continue efforts without NRT Assessment & Plan (05/30/2023 10:18 AM EDT): -Cigg/day: 5 -Age started: 23 -Total years smokin -Pack year history: 15 packs Encouraged smoking cessation resources such as pharmacomtherapy, [facility] smoking cessation group, and [facility] pharmacy smoking cessation clinic -14mg and [...] diet and exercise,discussed healthy life style -discussed dance director referral -referred today Acute dehydration 09/23/2022 10/27/2022 [...] is for one week only and not buttermaker continuous churn. Acute idiopathic gout involv ing toe of [...] 06/28/2022 02/10/2024 Asthma 06/28/2022 10/27/2022 Environmental allergies 06/28/202201/22 Use of combustion-free vaporization device 06/28/2022 02/10/2024 [...] Encounters Date Type Department Care Team Description 05/18/2024 Refill [facility] [address] [place] [phone] Name, MD Kwame Moderate persistent asthma without complication 05/16/2024 Telephone [facility] MEDIC[facility] [address] [place] [address] NUTRITION APPT REQUEST 05/14/2024 Orders Only [facility] [address] [place] [address] [phone] Mirtha Lunsford MD Class 1 obesity due to excess calories with serious comorbidity and body mass index (BMI) of 33.0 to 33.9 in adult (Primary Dx) 05/11/2024 10:30 AM EDT Office Visit [facility] [address] [place] [address] [phone] Kulwinder Álvarez MD Callus (Primary Dx); Seborrheic keratosis; Viral wart on finger 05/11/2024 Travel 05/10/2024 Orders Only [facility] [address] [place] [address] [phone] Kalli Henderson MD Class 1 obesity due to excess calories with serious comorbidity and body mass index (BMI) of 33.0 to 33.9 in adult (Primary Dx) 05/09/2024 Telephone [facility] [address] [place] [address] 81411 Mirtha Lunsford MD 05/08/2024 Refill [facility] [address] [place] [address] [phone] Mirtha Lunsford MD 05/04/2024 Population Health Risk Score [facility] () Department [address] [place] [address] [phone] Provider, Population Health Generic 05/02/2024 Refill [facility] [address] [place] [address] [phone] Mirtha Lunsford MD Chronic bilateral low back pain, unspecified whether sciatica present 04/26/2024 Refill [facility] [address] [place] [address] [phone] Mirtha Lunsford MD Sacroiliac joint dysfunction 04/17/2024 3:00 PM EST Office Visit [facility] [address] [place] [address] Kwame Tariq MD Flu-like symptoms (Primary Dx); Moderate persistent asthma without complication 04/16/2024 Refill [facility] [address] [place] [address] [phone] Anibal Lenz MD Sacroiliac joint dysfunction 04/12/2024 Refill [facility] [address] [place] [address] [phone] Mirtha Lunsford MD Moderate persistent asthma without complication 04/03/2024 Refill [facility] [address] [place] [address] 8[address]21 Mirtha Lunsford MD Mild intermittent asthma without complication 04/03/2024 Refill [facility] [address] [place] [address] Mirtha Lunsford MD Chronic bilateral low back pain, unspecified whether sciatica present; Mild intermittent asthma without complication 03/19/2024 Telephone [facility] [address] [place] [address] 32995 Joyce Nava MA Recalls May (I book the appt on 06/18/2024 for Physical.) 03/19/2024 Travel 03/09/2024 9:00 AM EST Office Visit [facility] [address] [place] [address] [phone] Anibal Lenz MD Acute left-sided thoracic back pain (Primary Dx); Sacroiliac joint dysfunction 03/09/2024 Travel 03/07/2024 Refill [facility] [address] [place] [address] [phone] Mirtha Lunsford MD Chronic bilateral low back pain, unspecified whether sciatica present 03/05/2024 Refill [facility] [address] [place] [address] [phone] Mirtha Lunsford MD Seasonal allergies from Last 3 Months Immunizations Name Administration [...] Sign Reading Time Taken Comments Blood Pressure 132/84 05/11/2024 10:22 AM EDT Pulse 74 05/11/2024 10:22 AM EDT Temperature 37.1 ??C (98.7 ??F) 05/11/2024 10:22 AM E DT Respiratory Rate 18 05/11/2024 10:22 AM EDT Oxygen Saturation 94% 04/17/2024 3:08 PM EST Inhaled Oxygen Concentration - - Weight 96.8 kg (213 lb 6.4 oz) 05/11/2024 10:22 AM EDT Height 172.7 cm (5' 8 ) 05/11/2024 10:22 AM EDT Body Mass Index 32.45 05/11/2024 10:22 AM EDT Plan of Treatment Upcoming Encounters Date Type Department Care Team (Late st Contact Info) Description 06/18/2024 9:15 AM EDT Office Visit [facility] MEDICINE [address] [place] [address] Mirtha Lunsford MD [address] [place] [address] 07/18/2024 8:00 AM EDT Office Visit [facility] ADULT DENTAL [address] [place] [address] Rebecca Capps Health Maintenance Due Date Last [...] 024, 07/25/2020, 05/05/2015 Lipid Panel 08/25/2028 08/26/2023, 04/0 09/2023, 03/05/2022 RSV Patients and Patients Aged 60 years or older (1 - 1-dose 75+ series) 02/15/2043 Zoster Vaccines Completed 04/27/2021, 2021 Pneumococcal Vaccine: 50+ Years Completed 11/01/2022, 10/24/2014, 06/25/2014, Additional history exists Hepatitis B Vaccines Completed 01/24/2023, 08/02/2022, 06/28/2022 Hepatitis A Vaccines Aged Out 05/30/2023, 11/01/2022, 06/28/2022 No longer eligible based on patient's age to complete this topic Influenza Vaccine Completed 11/03/2023, , 02/18/2022, Additional history exists COVID-19 Vaccine Completed 11/10/2023, 05/2022, 02/18/2022, Additional history exists HIV Screening Completed 02/28/2024, 09/2023, 03/12/2022 Hepatitis C Screening Completed 02/28/2024 [...] Pressure 132/84( 025 10:22 AM EDT) No Piers-Gambl e, Victoria, PharmD Reduce tobacco [...] Routine 04/17/2024 3:22 PM EST Flu-like symptoms HEPATITIS C AB W/REFL TO HCV RNA, QN, PCR Routine 02/28/2024 9:26 AM EST Routine screening for STI (sexually transmitted infection) HIV 1/2 ANTIGEN/ANTIBODY, FOURTH GENERATION W/RFL Routine 02/28/2024 9:26 AM EST Routine screening for STI (sexually transmitted infection) PROPHYLAXIS - ADULT Routine 01/16/2024 8 :00 [...] ESCOBEDO ID NOW (04/17/2024 3:22 PM EST) Pathologist [facility] Influenza B Negative Negative, Indeterminate [facility] Swab 04/17/2024 3:22 PM EST us Kwame Tariq MD POINT OF CARE TEST ENTER/EDIT OR DERABLES Final Result [facility] [address] [place] [phone] * (ABNORMAL) POCT Rapid Influenza A ESCOBEDO ID NOW (04/17/2024 3:22 PM EST) Influenza A Positive( A) Negative, Indeterminate [facility] Swab 04/17/2024 3:22 PM EST us Kwame Tariq MD POINT OF CARE TEST ENTER/EDIT OR DERABLES Final Result Performing Organization Address City/[facility]/ZIP Co de Phone Number [facility] [address] [place] [address] [phone] * POCT Rapid Covid-19 BinaxNOW (04/17/2024 3:22 PM EST) Rapid COVID Ag Negative [facility] Swab 04/17/2024 3:22 PM EST Kwame Name POINT OF CARE TEST ENTER/EDIT OR DERABLES Final Result Performing Organization Address [facility] Co de Phone Number [facility] [address] [place] [address] [phone] * Hepatitis C Antibody with Reflex to HCV, RNA, Quantitative, Real-Time PCR (02/28/2024 9:26 AM EST) Pathologist [facility] Hepatitis C Antibody Nonreactive Nonreactive [facility] Comment:Antibodies to HCV no t detected; does not exclude early acuteHCV infection. Blood Venous blood specimen / Unknown 02/28/2024 9:26 AM EST 02/28/2024 11:15 AM EST us Mirtha Lunsford MD LAB BLOOD ORDERABLES Final Result Performing Organization Address [facility] Co de Phone Number [facility] [address] [place] [phone] * HIV-1/2 Antigen and Antibodies, Fourth Generation, with Reflexes (02/28/2024 9:26 AM EST) HIV AB/AG Nonreactive Nonreactive [facility] Comment:HIV-1 p24 Ag and/or HIV-1/HIV-2 Ab not detected.A test result that is nonreactive does not exclude thepossibility of exposure to or infection with HIV-1 and/orHIV-2. Nonreactive results in this assay for individualswith prior exposure to HIV-1 and/or HIV-2 may be due toantigen and antibody levels that are below the limit ofdetection of this assay.The [employer] HIV Ag/Ab Combo assay result andsupplemental assay results should be interpreted inconjunction with the patient's clinical presentation,history and other laboratory results. If the results areinconsistent with clinical evidence, additional testing issuggested to confirm the result. Blood Venous blood specimen / Unknown 02/28/2024 9:26 AM EST 02/28/2024 11:15 AM EST Mirtha Lunsford MD LAB BLOOD ORDERABLES Final Result Performing Organization Address City/State/[facility] Co de Phone Number [facility] [address] [place] [phone] * Lipid Panel, Standard (08/26/2023 9:11 AM EDT) Triglycerides 78 <150 mg/dL [facility] Comment:Desirable Triglyceri de: less than 150 mg/dLBorderline High Triglyceride 150-199 mg/dLHigh Triglyceride: 200-499 mg/dLVery High Triglyceride: greater than or equal to 5OO mg/dL Cholesterol 183 <200 mg/dL [facility] Comment:Desirable Cholestero l: less than 200 mg/dLBorderline High Cholesterol: 200-239 mg/dLHigh Cholesterol: greater than 239 mg/dL LDL Cholesterol Calculated 90 <100 mg/dL [facility] Comment:Desirable LDL: less than 100 mg/dLNear Optimal/Above Optimal LDL: 110- 129 mg/dLBorderline High LDL: 130-159 mg/dLHigh LDL: 160-189 mg/dLVery High LDL: greater than or equal to 190 mg/dL HDL Cholesterol 78 >40 mg/dL [facility] Comment:Desirable HDL: great er than 40 mg/dL Note: This HDL assay may give artificially low results in patients with liver disease. 08/26/2023 9:11 AM EDT 08/26/2023 11:07 AM EDT Mirtha Lunsford MD LAB BLOOD ORDERABLES Final Result [facility] [address] [place] [phone] [phone] * (ABNORMAL) Colonoscopy (07/08/2023) Colonoscopy Abnormal( A) Normal Comment:Multiple polyps with Dr. Pisano, repeat 1 year us Historical Provider HEALTH MAINTENANCE Edited Result - Final from Last 3 Months or Most Recently Relevant to Health Maintenance Insurance [facility] C3 DENTAL-[facility] MEDICAID STAND ADULT Advance Directives Documents on File Type Date Recorded Patient Web Interface Developer Expl anation Advance Directives and Living Will 12/19/2023 Health Care Proxy 12/19/23 Care Teams Bank Vault Clerk Relationship Specialty Start Date End Date Jonn, MD Mirtha [address] [place], [place] PCP - General Family Medicine 03/04/15 Victoria Radford PharmD [address] [place] [address] Pharmacist Internal Medicine 08/03/22 Acosta Sinha FNP [address] [place] [address] Nurse Practitioner Family Medicine 01/17/23 Flip Wan MD [address] [place] [address] Pulmonary Disease 02/02/24 Dmitri Sequeira MD [address] [phone] Nephrology 02/10/24 Stephane Pisano MD 11 [facility] [address] [place], [place] General Surgery 02/10/24 Melvin Claros MD [address] [place] [address] Cardiology 04/16/24 Ghassan Fletcher Unix Systems AdministratorPipe Insulator Helper 02/07/24
--- OUTSIDE RECORDS SUMMARY | 2024-05-31 07:58 | XMS_ITS | Encounter Summary ---
Author Organization [employer] [facility] Address [address] [facility] 7t [place] [address] Care Team Providers Care Flitch Hanger Name Role Phone Mirtha Lunsford MD Primary Care Provider + [phone] Victoria Radford PharmD Unavailable [phone] Acosta Sinha CALENDER OPERATOR Unavailable Unavailable Flip Wan MD Unavailable [phone] Dmitri Sequeira MD Unavailable [phone] Stephane Pisano MD Unavailable [phone] Melvin Claros MD Unavailable [phone] Encounter Details Date Type Department Care Team (Latest Contact Info) Description 07/25/2020 Abstract [facility] CONVERSIONS Dental, Provider, DDS Social History Tobacco [...] Description 06/18/2024 9:15 AM EDT Office Visit [facility] MEDICINE [address] [place], [place] [phone] Mirtha Lunsford MD 230 [place] [address] 07/18/2024 8:00 AM EDT Office Visit [facility] ADULT DENTAL 230 [place] [address] Rebecca Capps documented as of this encounter Visit Diagnoses Not on filedocumented in this encounter Care Teams Flitch Hanger Relationship Specialty Start Date End Date Mirtha Lunsford MD 230 [place] [address] PCP - General Family Medicine 03/04/15 Victoria Radford, GypsyD [address] [place] [address] Pharmacist Internal Medicine 08/03/22 Acosta Sinha FNP 230 [place] [address] Nurse Practitioner Family Medicine 01/17/23 Flip Wan MD [address] [place] [address] Pulmonary Disease 02/02/24 Dmitri Sequeira MD 100 [facility] 200 [place] [address] Nephrology 02/10/24 Stephane Pisano MD [address] [place] [address] 3rd [place] [address] General Surgery 02/10/24 Melvin Claros MD 596 [place] [address] Cardiology 04/16/24 NARAYAN LICEA Systems ProgrammerChemistry Intern 01/06/23 02/06/24 Ghassan Fletcher Systems ProgrammerChemistry Intern 02/07/24 documented as of this encounter
--- OUTSIDE RECORDS SUMMARY | 2024-05-31 07:58 | XMS_ITS | Encounter Summary ---
Author Organization [employer] Address [address] [facility] [address] 7t [place] [address] Care Team Providers Care Mechanical Test Engineer Name Role Phone Mirtha Lunsford MD Primary Care Provider +- [phone] Victoria Radford PharmD Unavailable [phone] Acosta Sinha CUSTOM FEED MILL OPERATOR HELPER Unavailable Unavailable Flip Wan MD Unavailable [phone] Dmitri Sequeira MD Unavailable [phone] Stephane Pisano MD Unavailable [phone] Melvin Claros MD Unavailable [phone] Encounter Details Date Type Department Care Team (Late st Contact Info) Description 05/14/[address] [facility] MEDICINE 230 [place], [place] [phone] Mirtha Lunsford MD 230 [place], [place] [phone] Class 1 obesity due to excess calories with serious comorbidity and body mass index (BMI) of 33.0 to 33.9 in adult (Primary Dx) Social History Tobacco Use Types [...] AM EDT Office Visit [facility] MEDICINE 230 [place] [address] Mirtha Lunsford MD 230 [place] [address] 07/18/2024 8:00 AM EDT Office Visit [facility] ADULT DENTAL 230 [place] [address] Rebecca Capps documented as of this encounter Goals Goal Patient Goal Type Associated Problems Recent Progress Patient-Stated? Author Blood Pressure < 140/90 Blood Pressure 132/84( 025 10:22 AM EDT) No Victoria Mayo PharmD Reduce tobacco use (cigarettes, smokeless, etc) Tobacco Use No Victoria Mayo PharmD documented as of this encounter Visit Diagnoses Diagnosis Class 1 obesity due to excess calories with serious comorbidity and body mass index (BMI) of 33.0 to 33.9 in adult- Primary documented in this encounter Additional Health Concerns Assessment Noted Time PHQ-9 Depression Total Score: 0 06/17/19 24 9:26 AM EDT documented as of this encounter Care Teams Mechanical Test Engineer Relationship Specialty Start Date End Date Mirtha Lunsford MD [address] [place] [address] PCP - General Family Medicine 03/04/15 Victoria Radford PharmD [address] [place] [address] Pharmacist Internal Medicine 08/03/22 Acosta Sinha FNP [address] [place] [address] Nurse Practitioner Family Medicine 01/17/23 Flip Wan MD [address] [place] [address] Pulmonary Disease 02/02/24 Dmitri Sequeira MD 100 [facility] 200 [place] [address] Nephrology 02/10/24 Stephane Pisano MD [address] [place] [address] 3rd [place] [address] General Surgery 02/10/24 Melvin Claros MD 596 [place] [address] Cardiology 04/16/24 Ghassan Fletcher Return To Factory ClerkPlant Packer 02/07/24 documented as of this encounter
--- OUTSIDE RECORDS SUMMARY | 2024-05-31 07:58 | XMS_ITS | Encounter Summary ---
Author Organization [employer] Address [address] [facility] [address] 7t [place] [address] Care Team Providers Care Large Sheetfed Press Operator Name Role Phone Mirtha Lunsford MD Primary Care Provider + [phone] Victoria Radford PharmD Unavailable Acosta Sinha ROOF FOREMAN Unavailable Unavailable Flip Wan MD Unavailable [phone] Dmitri Sequeira MD Unavailable [phone] Stephane Pisano MD Unavailable [phone] Melvin Claros MD Unavailable [phone] Reason for Visit * Reason Comments Med Refill Encounter Details Date Type Department Care Team (Late st Contact Info) Description 12/29/2023 Refill [facility] MEDICINE 230 [place] [address] Anya Muller ANP 230 [place] [address] Essential hypertension Social History Tobacco Use Types [...] 9:15 AM EDT Office Visit [facility] MEDICINE 230 [place] [address] Mirtha Lunsford MD 230 [place] [address] 07/18/2024 8:00 AM EDT Office Visit [facility] ADULT DENTAL 230 [place] [address] Rebecca Capps documented as of this encounter [...] documented as of this encounter Care Teams Large Sheetfed Press Operator Relationship Specialty Start Date End Date Mirtha Lunsford MD 230 [place] [address] PCP - General Family Medicine 03/04/15 Victoria Radford PharmD [address] [place] [address] Pharmacist Internal Medicine 08/03/22 Acosta Sinha FNP [address] [place] [address] Nurse Practitioner Family Medicine 01/17/23 Flip Wan MD [address] [place] [address] Pulmonary Disease 02/02/24 Dmitri Sequeira MD 100 [facility] 200 [place] [address] Nephrology 02/10/24 Stephane Pisano MD [address] [place] [address] 3rd [place] [address] General Surgery 02/10/24 Melvin Claros MD 596 [place] [address] Cardiology 04/16/24 NARAYAN LICEA Intern RetailMangle Press Catcher 01/06/23 02/06/24 Ghassan Fletcher Intern RetailMangle Press Catcher 02/07/24 documented as of this encounter
--- OUTSIDE RECORDS SUMMARY | 2024-05-31 07:58 | XMS_ITS | Encounter Summary ---
Author Organization [facility] Address [address] [facility] 200 [place] [address] Phone Care Team Providers Care Home Comfort Advisor Name Role Phone Tavia Mosquera Primary Care Provider [phone] Reason for Referral * Imaging (Routine) - Closed Specialty Diagnoses / Procedures Referred By Contac t Referred To Contact Diagnoses Right kidney absent Procedures Ultrasound renal limited Dmitri Sequeira MD Phone: tel: fax: Referral ID Status Reason Start Date Expiration Date Visits Re quested Visits Authorized [id number] Closed 09/22/2023 09/21/2024 1 1 Encounter Details Date Type Department Care Team (Latest Contact Info) Description 09/22/2023 Office Communication [facility] [address] [facility] 200 [place] [address] Dmitri Sequeira MD [address] [facility] 204 [place] [phone] Right kidney absent (Primary Dx) Social History Tobacco Use Types Packs/Day Years Used Date Smoking Tobacco: Every Day Cigarettes 0.2 42.3 Started: 02/21/1982 Alcohol Use Standard Drinks/Week Comments [...] saw him--put on schedule 09/22/23 so I ladle liner helper write a note * Telephone Encounter - [...] Primary documented in this encounter Care Teams Home Comfort Advisor Relationship Specialty Start Date End Date [facility] [address] [place] [address] PCP - General 04/29/22 documented as of this encounter
--- OUTSIDE RECORDS SUMMARY | 2024-05-31 07:58 | XMS_ITS | Encounter Summary ---
Author Organization [employer] Address [address] [facility] [address] 7t [place] [address] Care Team Providers Care Patient Financial Representative Name Role Phone Mirtha Lunsford MD Primary Care Provider + [phone] Victoria Radford PharmD Unavailable Acosta Sinha DIESEL POWERPLANT MECHANIC Unavailable Unavailable Flip Wan MD Unavailable [phone] Dmitri Sequeira MD Unavailable [phone] Stephane Pisnao MD Unavailable Melvin Claros MD Unavailable [phone] Reason for Visit * Reason Comments Med Refill Encounter Details Date Type Department Care Team (Late st Contact Info) Description 09/23/2022 Refill [facility] [address] [place], [place] [phone] Mirtha Lunsford MD 230 [place], [place] [phone] Seasonal allergies Social History Tobacco Use Types [...] AM EDT Office Visit [facility] MEDICINE 230 [place] [address] Mirtha Lunsford MD 230 [place] [address] 07/18/2024 8:00 AM EDT Office Visit [facility] ADULT DENTAL 230 [place] [address] Rebecca Capps documented as of this encounter Goals Goal Patient Goal Type Associated Problems Recent Progress Patient-Stated? Author Blood Pressure < 140/90 Blood Pressure 132/84( 025 10:22 AM EDT) No Victoria Mayo PharmD documented as of this encounter Visit Diagnoses Diagnosis Seasonal allergies Allergic rhinitis, cause unspecified documented in this encounter Additional Health Concerns Assessment Noted Time PHQ-9 Depression Total Score: 10 023 3:38 PM EDT documented as of this encounter Care Teams Patient Financial Representative Relationship Specialty Start Date End Date Mirtha Lunsford MD [address] [place] [address] PCP - General Family Medicine 03/04/15 Victoria Radford, PharmD [address] [place] [address] Pharmacist Internal Medicine 08/03/22 Acosta Sinha FNP [address] [place] [address] Nurse Practitioner Family Medicine 01/17/23 Flip Wan MD [address] [place] [address] Pulmonary Disease 02/02/24 Dmitri Sequeira MD [address] [place] [address] Nephrology 02/10/24 Stephane Pisano MD [address] [place] [address] 3rd [place] [address] General Surgery 02/10/24 Melvin Claros MD 596 [place] [address] Cardiology 04/16/24 NARAYAN LICEA Radio Interference InvestigatorBarrel Driller 01/06/23 02/06/24 Ghassan Fletcher Radio Interference InvestigatorBarrel Driller 02/07/24 documented as of this encounter
--- OUTSIDE RECORDS SUMMARY | 2024-05-31 07:58 | XMS_ITS | Encounter Summary ---
Author Organization [employer] Address [address] [facility] [facility] [address] 7t [place] [address] Care Team Providers Care Pillow Cleaner Name Role Phone Mirtha Lunsford MD Primary Care Provider +- [phone] Victoria Radford PharmD Unavailable [phone] Acosta Sinha Unavailable Unavailable Flip Wan MD Unavailable [phone] Dmitri Sequeira MD Unavailable [phone] Stephane Pisano MD Unavailable [phone] Melvin Claros MD Unavailable [phone] Reason for Visit * Reason Comments Med Refill Encounter Details Date Type Department Care Team (Late st Contact Info) Description 02/02/2023 Refill [facility] MEDICINE 230 [place] [address] Acosta Sinha FNP Social History Tobacco Use [...] Description 06/18/2024 9:15 AM EDT Office Visit [facility] MEDICINE [address] [place] [address] Mirtha Lunsford MD [address] [place] [address] 07/18/2024 8:00 AM EDT Office Visit [facility] ADULT DENTAL [address] [place] [address] Rebecca Capps documented as of this encounter Goals Goal Patient Goal Type Associated Problems Recent Progress Patient-Stated? Author Blood Pressure < 140/90 Blood Pressure 132/84( 025 10:22 AM EDT) No Victoria Maoy, PharmD documented as of this encounter Visit Diagnoses Not on filedocumented in this encounter Additional Health Concerns Assessment Noted Time PHQ-9 Depression Total Score: 10 023 3:38 PM EDT documented as of this encounter Care Teams Pillow Cleaner Relationship Specialty Start Date End Date Mirtha Lunsford MD [address] [place] [address] PCP - General Family Medicine 03/04/15 Victoria Radford, Duy 230 [place] [address] Pharmacist Internal Medicine 08/03/22 Acosta Sinha FNP 230 [place] [address] Nurse Practitioner Family Medicine 01/17/23 Flip Wan MD [address] [place] [address] Pulmonary Disease 02/02/24 Dmitri Sequeira MD [address] [address] Nephrology 02/10/24 Stephane Pisano MD [address] [place] [address] [address] General Surgery 02/10/24 Melvin Claros MD 596 [place] [address] Cardiology 04/16/24 NARAYAN LICEA Metal Fitters And MachinistsAdvertising Copywriter 01/06/23 02/06/24 Ghassan Fletcher Metal Fitters And MachinistsAdvertising Copywriter 02/07/24 documented as of this encounter
--- OUTSIDE RECORDS SUMMARY | 2024-05-31 07:58 | XMS_ITS | Encounter Summary ---
Author Organization [employer] Address [address] [facility] [address] 7t [place] [address] Care Team Providers Care Grout Machine Operator Name Role Phone Mirtha Lunsford MD Primary Care Provider + [phone] Victoria Radford PharmD Unavailable [phone] Acosta Sinha SAND FILLER Unavailable Unavailable Flip Wan MD Unavailable [phone] Dmitri Sequeira MD Unavailable [phone] Stephane Pisano MD Unavailable [phone] Melvin Claros MD Unavailable [phone] Encounter Details Date Type Department Care Team (Late st Contact Info) Description 08/24/2023 Abstract [facility] 230 [place], [place] [phone] Mirtha Lunsford MD 230 [place], [place] [phone] Social History Tobacco Use Types Packs/Day Years [...] Description 06/18/2024 9:15 AM EDT Office Visit [facility] 230 [place] [address] Mirtha Lunsford MD 230 [place] [address] 07/18/2024 8:00 AM EDT Office Visit [facility] ADULT DENTAL 230 [place] [address] Rebecca Capps documented as of this encounter [...] documented as of this encounter Care Teams Grout Machine Operator Relationship Specialty Start Date End Date Mirtha Lunsford MD 230 [place] [address] PCP - General Family Medicine 03/04/15 Victoria Radford, GypsyD [address] [place] [address] Pharmacist Internal Medicine 08/03/22 Acosta Sinha FNP [address] [place] [address] Nurse Practitioner Family Medicine 01/17/23 Flip Wan MD [address] [place] [address] Pulmonary Disease 02/02/24 Dmitri Sequeira MD [address] [address] Nephrology 02/10/24 Stephane Pisano MD [address] [place] [address] 3rd [place] [address] General Surgery 02/10/24 Melvin Claros MD 596 [place] [address] Cardiology 04/16/24 NARAYAN LICEA Criminal ProfilerMixer Machine Feeder 01/06/23 02/06/24 Ghassan Fletcher Criminal ProfilerMixer Machine Feeder 02/07/24 documented as of this encounter
--- OUTSIDE RECORDS SUMMARY | 2024-05-31 07:58 | XMS_ITS | Encounter Summary ---
Author Organization [employer] Address [address] [address] 7t [place] [address] Care Team Providers Care Manganese Wheeler Name Role Phone Mirtha Lunsford MD Primary Care Provider +- [phone] Victoria Radford PharmD Unavailable Acosta Sinha EQUITY RESEARCH ANALYST Unavailable Unavailable Flip Wan MD Unavailable [phone] Dmitri Sequeira MD Unavailable [phone] Stephane Pisano MD Unavailable [phone] Melvin Claros MD Unavailable [phone] Reason for Visit * Reason Comments Med Refill Encounter Details Date Type Department Care Team (Late st Contact Info) Description 09/06/2023 Refill [facility] MED[facility]INE 230 [place], [place] [phone] Mirtha Lunsford MD 230 [place] [address] Social History Tobacco Use Types Packs/Day Years [...] Description 06/18/2024 9:15 AM EDT Office Visit [facility] MEDICINE [address] [place] [address] Mirtha Lunsford MD 230 [place] [address] 07/18/2024 8:00 AM EDT Office Visit [facility] ADULT DENTAL 230 [place] [address] Rebecca Capps documented as of this encounter [...] documented as of this encounter Care Teams Manganese Wheeler Relationship Specialty Start Date End Date Mirtha Lunsford MD 230 [place] [address] PCP - General Family Medicine 03/04/15 Victoria Radford, GypsyD [address] [place] [address] Pharmacist Internal Medicine 08/03/22 Acosta Sinha FNP [address] [place] [address] Nurse Practitioner Family Medicine 01/17/23 Flip Wan MD [address] [place] [address] Pulmonary Disease 02/02/24 Dmitri Sequeira MD 100 [facility] 200 [place] [address] Nephrology 02/10/24 Stephane Pisano MD [address] [place] [address] 3rd [place] [address] General Surgery 02/10/24 Melvin Claros MD 596 [place] [address] Cardiology 04/16/24 NARAYAN LICEA Rn BuildingCook Station 01/06/23 02/06/24 Ghassan Fletcher Rn BuildingCook Station 02/07/24 documented as of this encounter
--- OUTSIDE RECORDS SUMMARY | 2024-05-31 07:58 | XMS_ITS | Encounter Summary ---
Author Organization [employer] Address [address] [facility] [address] [facility] [address] 7t [place] [address] Care Team Providers Care Family Support Specialist Name Role Phone Mirtha Lunsford MD Primary Care Provider +- [phone] Victoria Radford PharmD Unavailable Acosta Sinha BIOFUELS OPERATIONS MANAGER Unavailable Unavailable Flip Wan MD Unavailable [phone] Dmitri Sequeira MD Unavailable [phone] Stephane Pisano MD Unavailable [phone] Melvin Claros MD Unavailable [phone] Reason for Visit * Reason Onset Date Comments Other 11/23/2022 Encounter Details Date Type Department Care Team (Late st Contact Info) Description 11/23/2022 Telephone [facility] MEDICINE 230 [place], [place] [phone] Mirtha Lunsford MD 230 [place], [place] [phone] Other Social History Tobacco Use Types Packs/Day [...] helping him. Any questions, contact nidia at [phone] documented in this encounter Plan of Treatment Upcoming Encounters Date Type Department Care Team (Late st Contact Info) Description 06/18/2024 9:15 AM EDT Office Visit [facility] MEDICINE 230 [place] [address] Mirtha Lunsford MD 230 [place] [address] 07/18/2024 8:00 AM EDT Office Visit [facility] ADULT DENTAL 230 [place] [address] Rebecca Capps documented as of this encounter [...] documented as of this encounter Care Teams Family Support Specialist Relationship Specialty Start Date End Date Mirtha Lunsford MD [address] [place] [phone] PCP - General Family Medicine 03/04/15 Victoria Radfodr PharmD [address] [place] [address] Pharmacist Internal Medicine 08/03/22 Acosta Sinha FNP 230 [place] [address] Nurse Practitioner Family Medicine 01/17/23 Flip Wan MD [address] [place] [address] Pulmonary Disease 02/02/24 Dmitri Sequeira MD 100 [facility] 200 [place] [address] Nephrology 02/10/24 Stephane Pisano MD [address] [place] [address] 3rd [place] [address] General Surgery 02/10/24 Melvin Claros MD 596 [place] [address] Cardiology 04/16/24 NARAYAN LICEA Rabbet OperatorUnit Manager 01/06/23 02/06/24 Ghassan Fletcher Rabbet OperatorUnit Manager 02/07/24 documented as of this encounter
--- OUTSIDE RECORDS SUMMARY | 2024-05-31 07:58 | XMS_ITS | Encounter Summary ---
Author Organization [employer] Address [address] [facility] 7t [place] [address] Care Team Providers Care Wire Bender Name Role Phone Mirtha Lunsford MD Primary Care Provider + [phone] Victoria Radford PharmD Unavailable [phone] Acosta Sinha LABEL FUSER TENDER Unavailable Unavailable Flip Wan MD Unavailable [phone] Dmitri Sequeira MD Unavailable [phone] Stephane Pisano MD Unavailable [phone] Melvin Claros MD Unavailable [phone] Reason for Referral * Consultation (Routine) - Closed Specialty Diagnoses / Procedures Referred By Ruthie reyes Referred To Contact Nutrition Diagnoses Class 1 obesity due to excess calories with serious comorbidity and body mass index (BMI) of 33.0 to 33.9 in adult Kalli Henderson MD 230 [place] [address] Phone: tel: fax: Referral ID Status Reason Start Date Expiration Date V isits Requested Visits Authorized [id number] Closed Consult and Treat 05/10/2024 05/10/2025 1 1 Encounter Details Date Type Department Care Team (Late st Contact Info) Description 05/10/2024 Orders Only [facility] MEDICINE 230 [place] [address] Kalli Henderson MD 230 [place], [place] [phone] Class 1 obesity due to excess calories [...] [facility] MED[facility]INE 230 [place] [address] Mirtha Lunsford MD 230 [place] [address] 07/18/2024 8:00 AM EDT Office Visit [facility] ADULT DENTAL 230 [place], [place] [phone] Rebecca Capps Scheduled Referrals Name Type Priority Associated Diagnoses Orde r Schedule Referral to Nutrition Therapy Outpatient Referral Routine Class 1 obesity due to excess calories with serious comorbidity and body mass index (BMI) of 33.0 to 33.9 in adult Expected: 05/10/2024 (Approximate), Expires: 05/10/2025 documented as of this encounter Goals Goal [...] documented as of this encounter Care Teams Wire Bender Relationship Specialty Start Date End Date Mirtha Lunsford MD [address] [place] [address] [phone] PCP - General Family Medicine 03/04/15 PetesVictoria Duran, PharmD [address] [place] [address] Pharmacist Internal Medicine 08/03/22 Acosta Sinha FNP 230 [place] [address] Nurse Practitioner Family Medicine 01/17/23 Flip Wan MD 5 [place] [address] Pulmonary Disease 02/02/24 Dmitri Sequeira MD 100 [facility] 200 [place] [address] Nephrology 02/10/24 Stephane Pisano MD [address] [place] [address] 3rd [place] [address] General Surgery 02/10/24 Melvin Claros MD 596 [place] [address] Cardiology 04/16/24 Ghassan Fletcher Knit Tubing DyerFlat Spring Assembler 02/07/24 documented as of this encounter
--- OUTSIDE RECORDS SUMMARY | 2024-05-31 07:58 | XMS_ITS | Encounter Summary ---
Author Organization [employer] [facility] Address [address] [facility] 7t [place] [address] Care Team Providers Care Dining Server Name Role Phone Mirtha Lunsford MD Primary Care Provider + [phone] Victoria Radford PharmD Unavailable [phone] Acosta Sinha INSULATOR TESTER Unavailable Unavailable Flip Wan MD Unavailable [phone] Dmitri Sequeira MD Unavailable [phone] Stephane Pisano MD Unavailable [phone] Melvin Claros MD Unavailable +[phone] Encounter Details Date Type Department Care Team (Latest Contact Info) Description 07/03/[address] [facility] CONVERSIONS Dental, Provider, DDS Social History [...] 06/18/2024 9:15 AM EDT [address] [facility] MEDICINE [address] [place], [place] [phone] Mirtha Lunsford MD 230 [place] [address] 07/18/2024 8:00 AM EDT Office Visit [facility]ULT [facility] [address] [place] [address] Rebecca Capps documented as of this encounter Visit Diagnoses Not on filedocumented in this encounter Care Teams Dining Server Relationship Specialty Start Date End Date Mirtha Lunsford MD 230 [place] [address] PCP - General Family Medicine 03/04/15 Victoria Radford, GypsyD 230 [place] [address] Pharmacist Internal Medicine 08/03/22 Acosta Sinha FNP 230 [place] [address] Nurse Practitioner Family Medicine 01/17/23 Flip Wan MD [address] [place] [address] Pulmonary Disease 02/02/24 Dmitri Sequeira MD 100 [facility] 200 [place] [address] Nephrology 02/10/24 Stephane Pisano MD [address] [place] [address] 3rd [place] [address] General Surgery 02/10/24 Melvin Claros MD 596 [place] [address] Cardiology 04/16/24 NARAYAN LICEA Pens And Pencils RepairerStraightening Machine Feeder 01/06/23 02/06/24 Ghassan Fletcher Pens And Pencils RepairerStraightening Machine Feeder 02/07/24 documented as of this encounter
--- OUTSIDE RECORDS SUMMARY | 2024-05-31 07:58 | XMS_ITS | Encounter Summary ---
Author Organization [employer] Address [address] [facility] [address] 7t [place] [address] Care Team Providers Care Roving Carrier Name Role Phone Mirtah Lunsford MD Primary Care Provider +- [phone] Victoria Radford PharmD Unavailable Acosta Sinha STRUCTURAL TEST ENGINEER Unavailable Unavailable Flip Wan MD Unavailable [phone] Dmitri Sequeira MD Unavailable [phone] Stephane Pisano MD Unavailable [phone] Melvin Claros MD Unavailable [phone] Reason for Visit * Reason Comments Med Refill Encounter Details Date Type Department Care Team (Late st Contact Info) Description 04/12/[address] [facility] MEDICINE 230 [place] [address] Mirtha Lunsford MD 230 [place] [address] Moderate persistent asthma without complication Social History [...] [facility] 230 [place] [address] Mirtha Lunsford MD 230 [place] [address] 07/18/2024 8:00 AM EDT Office Visit [facility] ADULT DENTAL [address] [place] [address] Rebecca Capps documented as of this encounter [...] documented as of this encounter Care Teams Roving Carrier Relationship Specialty Start Date End Date Mirtha Lunsford MD 230 [place] [address] PCP - General Family Medicine 03/04/15 Victoria Radford, PharmD [address] [place] [address] Pharmacist Internal Medicine 08/03/22 Acosta Sinha FNP [address] [place] [address] Nurse Practitioner Family Medicine 01/17/23 Flip Wan MD [address] [place] [address] Pulmonary Disease 02/02/24 Dmitri Sequeira MD [address] [address] Nephrology 02/10/24 Stephane Pisano MD [address] [place] [address] 3rd [place] [address] General Surgery 02/10/24 Melvin Claros MD 596 [place] [address] Cardiology 04/16/24 Ghassan Fletcher Neon Sign MakerSocial Media Marketing Specialist 02/07/24 documented as of this encounter
--- OUTSIDE RECORDS SUMMARY | 2024-05-31 07:58 | XMS_ITS | Encounter Summary ---
Author Organization [employer] Address [address] [facility] 7t [place] [address] Care Team Providers Care Armament Repairer Name Role Phone Mirtha Lunsford MD Primary Care Provider + [phone] Victoria Radford PharmD Unavailable Acosta Sinha SLAB CONDITIONER SUPERVISOR Unavailable Unavailable Flip Wan MD Unavailable [phone] Dmitri Sequeira MD Unavailable [phone] Stephane Pisano MD Unavailable Melvin Claros MD Unavailable [phone] Encounter Details Date Type Department Care Team (Late st Contact Info) Description 09/08/2022 Abstract [facility] MEDICINE 230 [place] [address] Mirtha Lunsford MD 230 [place], [place] [phone] Social History Tobacco Use Types Packs/Day Years [...] Description 06/18/2024 9:15 AM EDT Office Visit [facility] 230 [place] [address] Mirtha Lunsford MD 230 [place], [place] 07/18/2024 8:00 AM EDT Office Visit [facility] ADULT DENTAL 230 [place] [address] Rebecca Capps documented as of this encounter [...] documented as of this encounter Care Teams Armament Repairer Relationship Specialty Start Date End Date Mirtha Lunsford MD [address] [place] [address] PCP - General Family Medicine 03/04/15 Victoria Radford, PharmD [address] [place] [address] Pharmacist Internal Medicine 08/03/22 Acosta Sinha FNP [address] [place] [address] Nurse Practitioner Family Medicine 01/17/23 Flip Wan MD [address] [place] [address] Pulmonary Disease 02/02/24 Dmitri Sequeira MD 100 [facility] 200 [place] [address] Nephrology 02/10/24 Stephane Pisano MD [address] [place] [address] 3rd [place] [address] General Surgery 02/10/24 Melvin Claros MD 596 [place] [address] Cardiology 04/16/24 NARAYAN LICEA Chemical ManagerCommunity Outreach Specialist 01/06/23 02/06/24 Ghassan Fletcher Chemical ManagerCommunity Outreach Specialist 02/07/24 documented as of this encounter
--- OUTSIDE RECORDS SUMMARY | 2024-05-31 07:58 | XMS_ITS | Encounter Summary ---
Author Organization [employer] Address [address] [facility] [address] 7t [place] [address] Care Team Providers Care Inventory Audit Clerk Name Role Phone Mirtha Lunsford MD Primary Care Provider + [phone] Victoria Radford PharmD Unavailable [phone] Acosta Sinha ENVIRONMENTAL SERVICES MANAGER Unavailable Unavailable Flip Wan MD Unavailable [phone] Dmitri Sequeira MD Unavailable [phone] Stephane Pisano MD Unavailable [phone] Melvin Claros MD Unavailable [phone] Reason for Visit * Reason Comments Med Refill Encounter Details Date Type Department Care Team (Late st Contact Info) Description 01/04/[address] [facility] MEDICINE 230 [place], [place] [phone] Shayla Ferrer DO 230 [place], [place] [phone] Social History Tobacco Use Types Packs/Day Years [...] 9:15 AM EDT Office Visit [facility] MEDICINE 230 [place] [address] Mirtha Lunsford MD 230 [place] [address] 07/18/2024 8:00 AM EDT Office Visit [facility] ADULT DENTAL 230 [place] [address] Rebecca Capps documented as of this encounter [...] documented as of this encounter Care Teams Inventory Audit Clerk Relationship Specialty Start Date End Date Mirtha Lunsford MD 230 [place] [address] PCP - General Family Medicine 03/04/15 Victoria Radford, PharmD [address] [place] [address] Pharmacist Internal Medicine 08/03/22 Acosta Sinha FNP [address] [place] [address] Nurse Practitioner Family Medicine 01/17/23 Flip Wan MD [address] [place] [address] Pulmonary Disease 02/02/24 Dmitri Sequeira MD [address] [facility] 200 [place] [address] Nephrology 02/10/24 Stephane Pisano MD [address] [place] [address] 3rd [place] [address] General Surgery 02/10/24 Melvin Claros MD 596 [place] [address] Cardiology 04/16/24 NARAYAN LICEA Strategic BuyerSupport Analyst 01/06/23 02/06/24 Ghassan Fletcher Strategic BuyerSupport Analyst 02/07/24 documented as of this encounter
--- OUTSIDE RECORDS SUMMARY | 2024-05-31 07:58 | XMS_ITS | Encounter Summary ---
Author Organization [employer] Address [address] [facility] [address] 7t [place] [address] Care Team Providers Care Inserting Machine Operator Name Role Phone Mirtha Lunsford MD Primary Care Provider +- [phone] Victoria Radford PharmD Unavailable Acosta Sinha CHEMICAL UNIT OPERATOR Unavailable Unavailable Flip Wan MD Unavailable [phone] Dmitri Sequeira MD Unavailable [phone] Stephane Pisano MD Unavailable [phone] Melvin Claros MD Unavailable [phone] Reason for Visit * Reason Comments Med Refill Encounter Details Date Type Department Care Team (Late st Contact Info) Description 04/03/[address] [facility] MEDICINE 230 [place] [address] Mirtha Lunsford MD 230 [place] [address] Mild intermittent asthma without complication Social History [...] Description 06/18/2024 9:15 AM EDT Office Visit [facility] MEDICINE [address] [place] [address] Mirtha Lunsford MD 230 [place] [address] 07/18/2024 8:00 AM EDT Office Visit [facility] ADULT DENTAL 230 [place] [address] Rebecca Capps documented as of this encounter [...] documented as of this encounter Care Teams Inserting Machine Operator Relationship Specialty Start Date End Date Mirtha Lunsford MD 230 [place] [address] PCP - General Family Medicine 03/04/15 Victoria Radford PharmD [address] [place] [address] Pharmacist Internal Medicine 08/03/22 Acosta Sinha FNP [address] [place] [address] Nurse Practitioner Family Medicine 01/17/23 Flip Wan MD [address] [place] [address] Pulmonary Disease 02/02/24 Dmitri Sequeira MD [address] [address] Nephrology 02/10/24 Stephane Pisano MD [address] [place] [address] 3rd [place] [address] General Surgery 02/10/24 Melvin Claros MD 596 [place] [address] Cardiology 04/16/24 Ghassan Fletcher Shank TapperStaking Press Operator 02/07/24 documented as of this encounter
--- OUTSIDE RECORDS SUMMARY | 2024-05-31 07:58 | XMS_ITS | Encounter Summary ---
Author Organization [employer] Address [address] [facility] [address] 7t [place] [address] Care Team Providers Care Store Gift Wrap Associate Name Role Phone Mirtha Lunsford MD Primary Care Provider +- [phone] Victoria Radford PharmD Unavailable [phone] Acosta Sinha STUDIO MUSICIAN Unavailable Unavailable Flip Wan MD Unavailable [phone] Dmitri Sequeira MD Unavailable [phone] Stephane Pisano MD Unavailable [phone] Melvin Claros MD Unavailable [phone] Reason for Visit * Reason Comments Med Refill Encounter Details Date Type Department Care Team (Late st Contact Info) Description 11/13/2022 Refill [facility] [address] [place] [address] [phone] Mirtha Lunsford MD 230 [place], [place] [phone] Essential hypertension (Primary Dx) Social History Tobacco [...] AM EDT Office Visit [facility] MEDICINE 230 [place] [address] Mirtha Lunsford MD 230 [place] [address] 07/18/2024 8:00 AM EDT Office Visit [facility] ADULT DENTAL [address] [place] [address] Rebecca Capps documented as of this encounter [...] documented as of this encounter Care Teams Store Gift Wrap Associate Relationship Specialty Start Date End Date Mirtha Lunsford MD [address] [place] [address] PCP - General Family Medicine 03/04/15 Victoria Radford PharmD [address] [place] [address] Pharmacist Internal Medicine 08/03/22 Acosta Sinha FNP [address] [place] [address] Nurse Practitioner Family Medicine 01/17/23 Flip Wan MD [address] [place] [address] Pulmonary Disease 02/02/24 Dmitri Seuqeira MD [address] [address] Nephrology 02/10/24 Stephane Pisano MD [address] [place] [address] 3rd [place] [address] General Surgery 02/10/24 Melvin Claros MD 596 [place] [address] Cardiology 04/16/24 NARAYAN LICEA Nurse LeaderFilling Machine Tender 01/06/23 02/06/24 Ghassan Fletcher Nurse LeaderFilling Machine Tender 02/07/24 documented as of this encounter
--- OUTSIDE RECORDS SUMMARY | 2024-05-31 07:58 | XMS_ITS | Clinical Summary ---
Author Organization [facility] Address [address] [place] [address] [place] [address] Phone Care Team Providers Care Planning Analyst Name Role Phone Demetri Tavia Primary Care Provider [phone] Allergies Active Allergy Reactions Criticality Noted Date [...] plan. 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 Wan -continue Flovent -continue Singulair -continue [...] CHOLHDLRAT 3.2 03/05/2022 -continue lifestyle modifications Immunizations Immunization Administration Dates Next Due Hepatitis A 11/01/2022,06/28/2022 [...] Colorectal Cancer Screening: Sigmoidoscopy 02/15/2017 Influenza Vaccine (Season Ended) 2024 11/01/2022, 02/18/2022, 02/18/2022, Additional history exists Pneumococcal Vaccine: Peds ( 0 to 5 Years) and At-Risk Patients (6 to 49 Years) Completed 11/01/2022, 10/24/2014, 06/25/2014, Additional history exists Insurance Medicaid [place] Care Teams Planning Analyst Relationship Specialty Start Date End Date Tavia Mosquera [address] [place] [address] PCP - General 04/29/22
== END 2024-05-31 08:09 | disposition home or self-care (01) ==
LOC: HO.ENCR 07:53
PROVIDERS: PCP Family Medicine; Visit Provider Internal Medicine Endocrinology, Diabetes & Metabolism
DX: D35.01 Benign neoplasm of right adrenal gland (principal)
CPT/HCPCS: 99213

== ENCOUNTER → 2024-05-31 07:53 | Outpatient (BNVA) | payer MEDICAID, SELFPAY | PROVIDERS: PCP Family Medicine; Visit Provider Internal Medicine Endocrinology, Diabetes & Metabolism | DX: D35.01 Benign neoplasm of right adrenal gland (principal) | CPT/HCPCS: 99212 ==

== ENCOUNTER 2024-06-12 06:54 | Outpatient (REF) | payer MEDICAID, SELFPAY ==
--- OUTSIDE RECORDS SUMMARY | 2024-06-12 06:57 | XMS_ITS | Encounter Summary ---
Author Organization [employer] Address [address] [facility] [address] 7t [place] [address] Care Team Providers Care Belt Turner Name Role Phone Mirtha Lunsford MD Primary Care Provider + [phone] Victoria Radford PharmD Unavailable Acosta Sinha GAG WRITER Unavailable Unavailable Flip Wan MD Unavailable [phone] Dmitri Sequeira MD Unavailable [phone] Stephane Piasno MD Unavailable [phone] Melvin Claros MD Unavailable [phone] Artur Aguilar MD Unavailable [phone] Reason for Visit * Reason Comments Med Refill Encounter Details Date Type Department Care Team (Late st Contact Info) Description 11/13/2022 Refill [facility] [address] [place] [address] [phone] Mirtha Lunsford MD 230 [place], [place] [phone] Essential hypertension (Primary Dx) Social History Tobacco [...] Description 06/18/2024 9:15 AM EDT Office Visit [facility] MED[facility] 230 [place] [address] Mirtha Lunsford MD 230 [place] [address] 07/18/2024 8:00 AM EDT Office Visit [facility] ADULT DENTAL 230 [place] [address] Rebecca Capps documented as of this encounter [...] documented as of this encounter Care Teams Belt Turner Relationship Specialty Start Date End Date Mirtha Lunsford MD [address] [place] [address] PCP - General Family Medicine 03/04/15 Victoria Radford, PharmD [address] [place] [address] Pharmacist Internal Medicine 08/03/22 Acosta Sinha FNP [address] [place] [address] Nurse Practitioner Family Medicine 01/17/23 Flip Wan MD [address] [place] [address] Pulmonary Disease 02/02/24 Dmitri Sequeira MD 100 [address] 200 [place] [address] Nephrology 02/10/24 Stephane Pisano MD [address] 3rd [place] [address] General Surgery 02/10/24 Melvin Claros MD 596 [place] [address] Cardiology 04/16/24 Artur Aguilar MD [address] [place] [address] Endocrinology 05/31/24 NARAYAN LICEA Timber GirdlerPewter Finisher 01/06/23 02/06/24 Ghassan Fletcher Timber GirdlerPewter Finisher 02/07/24 documented as of this encounter
--- OUTSIDE RECORDS SUMMARY | 2024-06-12 06:57 | XMS_ITS | Encounter Summary ---
Author Organization [employer] Address [address] [facility] [address] 7t [place] [address] Care Team Providers Care Gse Mechanic Name Role Phone Mirtha Lunsford MD Primary Care Provider + [phone] Victoria Radford PharmD Unavailable Acosta Sinha MATH TEACHER Unavailable Unavailable Flip Wan MD Unavailable [phone] Dmitri Sequeira MD Unavailable [phone] Stephane Pisano MD Unavailable [phone] Melvin Claros MD Unavailable [phone] Artur Aguilar MD Unavailable [phone] Reason for Visit * Reason Comments Med Refill Encounter Details Date Type Department Care Team (Late st Contact Info) Description 05/08/2024 Refill [facility] [address] [place] [address] [phone] Mirtha Lunsford MD 230 [place], [place] [phone] Social History Tobacco Use Types Packs/Day Years [...] Description 06/18/2024 9:15 AM EDT Office Visit [facility] MED[facility] 230 [place] [address] Mirtha Lunsford MD 230 [place] [address] 07/18/2024 8:00 AM EDT Office Visit [facility] ADULT DENTAL 230 [place] [address] Rebecca Capps documented as of this encounter Goals Goal Patient Goal Type Associated Problems Recent Progress Patient-Stated? Author Blood Pressure < 140/90 Blood Pressure 132/84( 025 10:22 AM EDT) No Victoria Mayo, PharmD Reduce tobacco use (cigarettes, smokeless, etc) Tobacco Use No PetesVictoria Frost, PharmD documented as of this encounter Visit Diagnoses Not on filedocumented in this encounter Additional Health Concerns Assessment Noted Time PHQ-9 Depression Total Score: 0 06/17/19 24 9:26 AM EDT documented as of this encounter Care Teams Gse Mechanic Relationship Specialty Start Date End Date Mirtha Lunsford MD [address] [place] [address] PCP - General Family Medicine 03/04/15 Victoria Radford, PharmD [address] [place] [address] Pharmacist Internal Medicine 08/03/22 Acosta Sinha FNP [address] [place] [address] Nurse Practitioner Family Medicine 01/17/23 Flip Wan MD [address] [place] [address] Pulmonary Disease 02/02/24 Dmitri Sequeira MD [address] [address] Nephrology 02/10/24 Stephane Pisano MD [address] [place] [address] 3rd [place] [address] General Surgery 02/10/24 Melvin Claros MD 596 [place] [address] Cardiology 04/16/24 Artur Aguilar MD [address] [place] [address] Endocrinology 05/31/24 Ghassan Fletcher Biological AideWell Reactivator Operator 02/07/24 documented as of this encounter
--- OUTSIDE RECORDS SUMMARY | 2024-06-12 06:57 | XMS_ITS | Encounter Summary ---
Author Organization [employer] Address [address] 7t [place] [address] Care Team Providers Care Artificial Breast Fabricator Name Role Phone Mirtha Lunsford MD Primary Care Provider + [phone] Victoria Radford PharmD Unavailable [phone] Acosta Sinha COURSEWARE DEVELOPER Unavailable Unavailable Flip Wan MD Unavailable [phone] Dmitri Sequeira MD Unavailable [phone] Stephane Pisano MD Unavailable Melvin Claros MD Unavailable [phone] Artur Aguilar MD Unavailable [phone] Encounter Details Date Type Department Care Team (Late st Contact Info) Description 06/08/2024 Orders Only [facility] MEDICINE 230 [place], [place] [phone] Mirtha Lunsford MD 230 [place], [place] [phone] Essential hypertension Social History Tobacco Use Types [...] before you got money to buy more: Sometimes True 2024 Within the past 12 months,th e food you bought just didn't last and you didn't have enough money to get more: Sometimes True 06/06/2024 Transportation Answer Date Recorded In the past [...] Description 06/18/2024 9:15 AM EDT Office Visit [facility] MED[facility] 230 [place] [address] Mirtha Lunsford MD 230 [place] [address] 07/18/2024 8:00 AM EDT Office Visit [facility] ADULT DENTAL 230 [place] [address] Rebecca Capps documented as of this encounter Goals Goal Patient Goal Type Associated Problems Recent Progress Patient-Stated? Author Blood Pressure < 140/90 Blood Pressure 132/84( 025 10:22 AM EDT) No Victoria Mayo PharmD Reduce tobacco use (cigarettes, smokeless, etc) Tobacco Use No Victoria Mayo, PharmD documented as of this encounter Visit Diagnoses Diagnosis Essential hypertension Unspecified essential hypertension documented in this encounter Additional Health Concerns Assessment Noted Time PHQ-9 Depression Total Score: 0 06/17/19 24 9:26 AM EDT documented as of this encounter Care Teams Artificial Breast Fabricator Relationship Specialty Start Date End Date Mirtha Lunsford MD 230 [place] [address] PCP - General Family Medicine 03/04/15 Victoria Radford, PharmD 230 [place] [address] Pharmacist Internal Medicine 08/03/22 Acosta Sinha FNP 230 [place], [place] Nurse Practitioner Family Medicine 01/17/23 Flip Wan MD 5 [place] [address] Pulmonary Disease 02/02/24 Dmitri Sequeira MD [address] [address] Nephrology 02/10/24 Stephane Pisano MD 11 [facility] 3rd [place] [address] General Surgery 02/10/24 Melvin Claros MD [address] [place] [address] Cardiology 04/16/24 Artur Aguilar MD [address] [place] [address] Drive [address] [place] [address] Endocrinology 05/31/24 Ghassan Fletcher Purchasing And Fiscal ClerkOffice Machine Embossograph Operator 02/07/24 documented as of this encounter
--- OUTSIDE RECORDS SUMMARY | 2024-06-12 06:57 | XMS_ITS | Encounter Summary ---
Author Organization [employer] Address [address] [facility] 7t [place] [address] Care Team Providers Care Sales Representative Cash Registers Name Role Phone Mirtha Lunsford MD Primary Care Provider + [phone] Victoria Radford PharmD Unavailable Acosta Sinha OPS ANALYST Unavailable Unavailable Flip Wan MD Unavailable [phone] Dmitri Sequeira MD Unavailable [phone] Stephane Pisano MD Unavailable Melvin Claros MD Unavailable [phone] Artur Aguilar MD Unavailable [phone] Reason for Visit * Reason Comments Med Refill Encounter Details Date Type Department Care Team (Late st Contact Info) Description 11/15/2022 Refill [facility] [address] [place], [place] [phone] Mirtha Lunsford MD 230 [place], [place] [phone] Seasonal allergies Social History Tobacco Use Types [...] EDT Office Visit [facility] MEDICINE 230 [place] [address] Mirtha Lunsford MD [address] [place] [address] 07/18/2024 8:00 AM EDT Office Visit [facility] ADULT DENTAL [address] [place] [address] Rebecca Capps documented as of this encounter [...] documented as of this encounter Care Teams Sales Representative Cash Registers Relationship Specialty Start Date End Date Mirtha Lunsford MD [address] [place] [address] PCP - General Family Medicine 03/04/15 Victoria Radford, PharmD [address] [place] [address] Pharmacist Internal Medicine 08/03/22 Acosta Sinha FNP [address] [place] [address] Nurse Practitioner Family Medicine 01/17/23 Flip Wan MD [address] [place] [address] Pulmonary Disease 02/02/24 Dmitri Sequeira MD [address] [place] [address] Nephrology 02/10/24 Stephane Pisano MD [address] 3rd [place] [address] General Surgery 02/10/24 Melvin Claros MD 596 [place] [address] Cardiology 04/16/24 Artur Aguilar MD [address] [place] [address] Endocrinology 05/31/24 NARAYAN LICEA Slab Miller OperatorHigh Risk Case Manager 01/06/23 02/06/24 Ghassan Fletcher Slab Miller OperatorHigh Risk Case Manager 02/07/24 documented as of this encounter
--- OUTSIDE RECORDS SUMMARY | 2024-06-12 06:57 | XMS_ITS | Encounter Summary ---
Author Organization [employer] Address [address] [facility] [address] 7t [place] [address] Care Team Providers Care Freelance Art Director Name Role Phone Mirtha Lunsford MD Primary Care Provider + [phone] Victoria Radford PharmD Unavailable [phone] Acosta Sinha DIABETES TRAINER Unavailable Unavailable Flip Wan MD Unavailable [phone] Dmitri Sequeira MD Unavailable [phone] Stephane Pisano MD Unavailable [phone] Melvin Claros MD Unavailable [phone] Artur Aguilar MD Unavailable [phone] Reason for Visit * Reason Onset Date Comments Other 11/23/2022 Encounter Details Date Type Department Care Team ([facility] st Contact Info) Description 11/23/2022 Telephone [facility] MEDICINE 230 [place], [place] [phone] Mirtha Lunsford MD 230 [place], [place] [phone] Other Social History Tobacco Use Types Packs/Day [...] helping him. Any questions, contact nidia at [phone] documented in this encounter Plan of Treatment Upcoming Encounters Date Type Department Care Team (Late st Contact Info) Description 06/18/2024 9:15 AM EDT Office Visit [facility] MEDICINE 230 [place] [address] Mirtha Lunsford MD 230 [place] [address] 07/18/2024 8:00 AM EDT Office Visit [facility] ADULT DENTAL 230 [place] [address] Rebecca Capps documented as of this encounter Goals Goal Patient Goal Type Associated Problems Recent Progress Patient-Stated? Author Blood Pressure < 140/90 Blood Pressure 132/84( 025 10:22 AM EDT) No Victoria Mayo, PharmD documented as of this encounter Visit Diagnoses Not on filedocumented in this encounter Additional Health Concerns Assessment Noted Time PHQ-9 Depression Total Score: 10 023 3:38 PM EDT documented as of this encounter Care Teams Freelance Art Director Relationship Specialty Start Date End Date Mirtha Lunsford MD [address] [place] [address] [id number] PCP - General Family Medicine 03/04/15 Victoria Radford, PharmD [address] [place] [address] [phone] Pharmacist Internal Medicine 08/03/22 Acosta Sinha FNP 230 [place] [address] Nurse Practitioner Family Medicine 01/17/23 Flip Wan MD 5 [place] [address] Pulmonary Disease 02/02/24 Dmitri Sequeira MD 100 [facility] 200 [place] [address] Nephrology 02/10/24 Stephane Pisano MD 11 [facility] 3rd [place] [address] General Surgery 02/10/24 Melvin Claros MD 596 [place] [address] Cardiology 04/16/24 Artur Aguilar MD [address] [place] [address] Endocrinology 05/31/24 NARAYAN LICEA Kettle CoordinatorFitness Attendant 01/06/23 02/06/24 Ghassan Fletcher Kettle CoordinatorFitness Attendant 02/07/24 documented as of this encounter
--- OUTSIDE RECORDS SUMMARY | 2024-06-12 06:57 | XMS_ITS | Encounter Summary ---
Author Organization [employer] Address [address] [facility] 7t [place] [address] Care Team Providers Care Kelp Cutter Name Role Phone Mirtha Lunsford MD Primary Care Provider + [phone] Victoria Radford PharmD Unavailable [phone] Acosta Sinha STRIPPING SHOVEL OPERATOR Unavailable Unavailable Flip Wan MD Unavailable Dmitri Sequeira MD Unavailable [phone] Stephane Pisano MD Unavailable [phone] Melvin Claros MD Unavailable [phone] Artur Aguilar MD Unavailable [phone] Reason for Visit * Reason Comments Med Refill Encounter Details Date Type Department Care Team (Late st Contact Info) Description 09/23/2022 Refill [facility] [address] [place], [place] [phone] Mirtha Lunsford MD 230 [place], [place] [phone] Seasonal allergies Social History Tobacco Use Types [...] 9:15 AM EDT Office Visit [facility] MEDICINE 230 [place] [address] Mirtha Lunsford MD [address] [place] [address] 07/18/2024 8:00 AM EDT Office Visit [facility] ADULT DENTAL [address] [place] [address] Rebecca Capps documented as of this encounter [...] documented as of this encounter Care Teams Kelp Cutter Relationship Specialty Start Date End Date Mirtha Lunsford MD [address] [place] [address] PCP - General Family Medicine 03/04/15 Victoria Radford, PharmD [address] [place] [address] Pharmacist Internal Medicine 08/03/22 Acosta Sinha FNP [address] [place] [address] Nurse Practitioner Family Medicine 01/17/23 Flip Wan MD [address] [place] [address] Pulmonary Disease 02/02/24 Dmitri Sequeira MD 100 [facility] 200 [place] [address] Nephrology 02/10/24 Stephane Pisano MD [address] 3rd [place] [address] General Surgery 02/10/24 Melvin Claros MD 596 [place] [address] Cardiology 04/16/24 Artur Aguilar MD [address] [place] [address] Endocrinology 05/31/24 NARAYAN LICEA Boiler Operators SupervisorLogistic Manager 01/06/23 02/06/24 Ghassan Fletcher Boiler Operators SupervisorLogistic Manager 02/07/24 documented as of this encounter
--- OUTSIDE RECORDS SUMMARY | 2024-06-12 06:57 | XMS_ITS | Encounter Summary ---
Author Organization [employer] Address [address] [facility] 7t [place] [address] Care Team Providers Care Rail Switchman Name Role Phone Mirtha Lunsford MD Primary Care Provider + [phone] Victoria Radford PharmD Unavailable [phone] Acosta Sinha GENERAL MERCHANDISE SALESPERSON Unavailable Unavailable Flip Wan MD Unavailable [phone] Dmitri Sequeira MD Unavailable [phone] Stephane Pisano MD Unavailable [phone] Melvin Claros MD Unavailable [phone] Artur Aguilar MD Unavailable [phone] Reason for Referral * Consultation (Routine) - Closed Specialty Diagnoses / Procedures Referred By Ruthie reyes Referred To Contact Nutrition Diagnoses Class 1 obesity due to excess calories with serious comorbidity and body mass index (BMI) of 33.0 to 33.9 in adult Kalli Henderson MD 230 [place] [address] Phone: tel: fax: Referral ID Status Reason Start Date Expiration Date V isits Requested Visits Authorized [id number] Closed Consult and Treat 05/10/2024 05/10/2025 1 1 Encounter Details Date Type Department Care Team (Late st Contact Info) Description 05/10/2024 Orders Only [facility] MEDICINE 230 [place], [place] [phone] Kalli Henderson MD 230 [place] [address] Class 1 obesity due to excess calories [...] Description 06/18/2024 9:15 AM EDT Office Visit [facility] MEDICINE 230 [place] [address] Mirtha Lunsford MD 230 [place] [address] 07/18/2024 8:00 AM EDT Office Visit [facility] ADULT DENTAL 230 [place], [place] [phone] Rebecca Capps Scheduled Referrals Name Type Priority [...] documented as of this encounter Care Teams Rail Switchman Relationship Specialty Start Date End Date Mirtha Lunsford MD [address] [place] [address] PCP - General Family Medicine 03/04/15 Petes-Marlene Gamblesa, PharmD [address] [place] [address] Pharmacist Internal Medicine 08/03/22 Acosta Sinha FNP 230 [place] [address] Nurse Practitioner Family Medicine 01/17/23 Flip Wan MD 5 [place] [address] Pulmonary Disease 02/02/24 Dmitri Sequeira MD 100 [facility] 200 [place] [address] Nephrology 02/10/24 Stephane Pisano MD 11 Hospital [facility] 3rd [place] [address] General Surgery 02/10/24 Melvin Claros MD 596 [place] [address] Cardiology 04/16/24 Artur Aguilar MD [address] [place] [address] Endocrinology 05/31/24 Ghassan Fletcher Padder CushionPipe Coverer And Insulator 02/07/24 documented as of this encounter
--- OUTSIDE RECORDS SUMMARY | 2024-06-12 06:57 | XMS_ITS | Encounter Summary ---
Author Organization [employer] Address [address] [facility] [address] 7t [place] [address] Care Team Providers Care Vehicle Maintenance Technician Name Role Phone Mitrha Lunsford MD Primary Care Provider + [phone] Victoria Radford PharmD Unavailable [phone] Acosta Sinha Unavailable Unavailable Flip Wan MD Unavailable [phone] Dmitri Sequeira MD Unavailable [phone] Stephane Pisano MD Unavailable [phone] Melvin Claros MD Unavailable [phone] Artur Aguilar MD Unavailable [phone] Reason for Visit * Reason Comments Med Refill Encounter Details Date Type Department Care Team (Late st Contact Info) Description 02/02/2023 Refill [facility] MEDICINE 230 [place] [address] Acosta Sinha FNP Social History Tobacco Use [...] Office Visit [facility] MEDICINE [address] [place] [address] Mirtha Lunsford MD [address] [place] [address] 07/18/2024 8:00 AM EDT Office Visit [facility] ADULT DENTAL [address] [place] [address] Rebecca Capps documented as of this encounter [...] documented as of this encounter Care Teams Vehicle Maintenance Technician Relationship Specialty Start Date End Date Mirtha Lunsford MD [address] [place] [address] PCP - General Family Medicine 03/04/15 Victoria Radford PharmD 230 [place] [address] Pharmacist Internal Medicine 08/03/22 Acosta Sinha FNP 230 [place] [address] Nurse Practitioner Family Medicine 01/17/23 Flip Wan MD 5 [place] [address] Pulmonary Disease 02/02/24 Dmitri Sequeira MD [address] [address] Nephrology 02/10/24 Stephane Pisano MD [address] 3rd [place] [address] General Surgery 02/10/24 Melvin Claros MD 596 [place] [address] Cardiology 04/16/24 Artur Aguilar MD [address] [place] [address] Endocrinology 05/31/24 NARAYAN LICEA Recruit InstructorBusiness Operations Consultant 01/06/23 02/06/24 Ghassan Fletcher Recruit InstructorBusiness Operations Consultant 02/07/24 documented as of this encounter
--- OUTSIDE RECORDS SUMMARY | 2024-06-12 06:57 | XMS_ITS | Encounter Summary ---
Author Organization [employer] Address 75 [facility] 7t [place] [address] Care Team Providers Care Pillowcase Sewer Name Role Phone Mirtha Lunsford MD Primary Care Provider + [phone] Victoria Radford PharmD Unavailable Acosta Sinha Unavailable Unavailable Flip Wan MD Unavailable [phone] Dmitri Sequeira MD Unavailable [phone] Stephane Pisano MD Unavailable Melvin Claros MD Unavailable [phone] Artur Aguilar MD Unavailable [phone] Reason for Visit * Reason Comments Med Refill Encounter Details Date Type Department Care Team (Late st Contact Info) Description 06/07/2024 Refill [facility] MEDICINE 230 [place], [place] [phone] Victoria Radford, PharmD 230 [place], [place] [phone] Essential hypertension Social History Tobacco Use Types [...] encounter Miscellaneous Notes * Telephone Encounter - Loraine Wakefield LPN - 06/08/2024 8:04 AM EDT Last seen 04.17.24 documented in this encounter Plan of Treatment Upcoming Encounters Date Type Department Care Team ([facility] st Contact Info) Description 06/18/2024 9:15 AM EDT Office Visit [facility] MEDICINE 230 [place] [address] Mirtha Lunsford MD 230 [place] [address] 07/18/2024 8:00 AM EDT Office Visit [facility] ADULT DENTAL 230 [place] [address] Rebecca Capps documented as of this encounter Goals Goal Patient Goal Type Associated Problems Recent Progress Patient-Stated? Author Blood Pressure < 140/90 Blood Pressure 132/84( 025 10:22 AM EDT) No Petes-Victoria Swanson, PharmD Reduce tobacco use (cigarettes, smokeless, etc) Tobacco Use No Piers-GambVictoria morales, PharmD documented as of this encounter Visit Diagnoses Diagnosis Essential hypertension Unspecified essential hypertension documented in this encounter Additional Health Concerns Assessment Noted Time PHQ-9 Depression Total Score: 0 06/17/19 24 9:26 AM EDT documented as of this encounter Care Teams Pillowcase Sewer Relationship Specialty Start Date End Date Mirtha Lunsford MD 230 [place] [address] PCP - General Family Medicine 03/04/15 Victoria Radford, PharmD [address] [place] [address] Pharmacist Internal Medicine 08/03/22 Acosta Sinha FNP [address] [place] [address] Nurse Practitioner Family Medicine 01/17/23 Flip Wan MD [address] [place] [address] Pulmonary Disease 02/02/24 Dmitri Sequeira MD [address] [place] [address] Nephrology 02/10/24 Stephane Pisano MD [address] 3rd [place] [address] General Surgery 02/10/24 Melvin Claros MD 596 [place] [address] Cardiology 04/16/24 Artur Aguilar MD [address] [place] [address] Endocrinology 05/31/24 Ghassan Fletcher Supervisor BakingPot Feeder 02/07/24 documented as of this encounter
--- OUTSIDE RECORDS SUMMARY | 2024-06-12 06:57 | XMS_ITS | Encounter Summary ---
Author Organization [employer] Address [address] [facility] [address] 7t [place] [address] Care Team Providers Care Medication Aid Name Role Phone Mirtha Lunsford MD Primary Care Provider + [phone] Victoria Radford PharmD Unavailable [phone] Acosta Sinha E COMMERCE WEB DEVELOPER Unavailable Unavailable Flip Wan MD Unavailable [phone] Dmitri Sequeira MD Unavailable [phone] Stephane Pisano MD Unavailable [phone] Melvin Claros MD Unavailable [phone] Artur Aguilar MD Unavailable [phone] Encounter Details Date Type Department Care Team (Late st Contact Info) Description 05/14/2024 Orders Only [facility] MEDICINE 230 [place], [place] [phone] Mirtha Lunsford MD 230 [place], [place] [phone] Class 1 obesity due to excess calories [...] Office Visit [facility] MEDICINE 230 [place] [address] Mirtha Lunsford MD 230 [place] [address] 07/18/2024 8:00 AM EDT Office Visit [facility] ADULT DENTAL 230 [place] [address] Rebecca Capps documented as of this encounter [...] documented as of this encounter Care Teams Medication Aid Relationship Specialty Start Date End Date Mirtha Lunsford MD 230 [place] [address] PCP - General Family Medicine 03/04/15 Victoria Radford, PharmD 230 [place] [address] Pharmacist Internal Medicine 08/03/22 Acosta Sinha FNP 230 [place], [place] Nurse Practitioner Family Medicine 01/17/23 Flip Wan MD 5 [place] [address] Pulmonary Disease 02/02/24 Dmitri Sequeira MD [address] [address] Nephrology 02/10/24 Stephane Pisano MD 11 [facility] 3rd [place] [address] General Surgery 02/10/24 Melvin Claros MD 596 [place] [address] Cardiology 04/16/24 Artur Aguilar MD [address] [place] [address] Endocrinology 05/31/24 Ghassan Fletcher Machine Tool DresserAn/Sqq 89(V)15 Sonar System Journeyman 02/07/24 documented as of this encounter
--- OUTSIDE RECORDS SUMMARY | 2024-06-12 06:57 | XMS_ITS | Encounter Summary ---
Author Organization [employer] Address 75 [facility] 7t [place] [address] Care Team Providers Care Quality Control Assessor Name Role Phone Mirtha Lunsford MD Primary Care Provider + [phone] Victoria Radford PharmD Unavailable [phone] Acosta Sinha INTERPRETER Unavailable Unavailable Flip Wan MD Unavailable [phone] Dmitri Sequeira MD Unavailable [phone] Stephane Pisano MD Unavailable Melvin Claros MD Unavailable Artur Aguilar MD Unavailable [phone] Encounter Details Date Type Department Care Team (Latest Contact Info) Description 07/03/2018 Abstract [facility] CONVERSIONS Dental, Provider, DDS Social History Tobacco [...] Description 06/18/2024 9:15 AM EDT Office Visit [facility] MEDICINE 230 [place] [address] Mirtha Lunsford MD 230 [place] [address] 07/18/2024 8:00 AM EDT Office Visit [facility] ADULT DENTAL 230 [place] [address] Rebecca Capps documented as of this encounter Visit Diagnoses Not on filedocumented in this encounter Care Teams Quality Control Assessor Relationship Specialty Start Date End Date Mirtha Lunsford MD 230 [place] [address] PCP - General Family Medicine 03/04/15 Victoria Radford, GypsyD 230 [place] [address] Pharmacist Internal Medicine 08/03/22 Acosta Sinha FNP 230 [place] [address] Nurse Practitioner Family Medicine 01/17/23 Flip Wan MD 5 [place] [address] Pulmonary Disease 02/02/24 Dmitri Sequeira MD [address] [address] Nephrology 02/10/24 Stephane Pisano MD [address] [facility] 3rd [place] [address] General Surgery 02/10/24 Melvin Claros MD 596 [place] [address] Cardiology 04/16/24 Artur Aguilar MD [address] [facility] [address] [place] [address] Endocrinology 05/31/24 NARAYAN LICEA Home Health Nurse Licensed PracticalBotany Technician 01/06/23 02/06/24 Ghassan Fletcher Home Health Nurse Licensed PracticalBotany Technician 02/07/24 documented as of this encounter
--- OUTSIDE RECORDS SUMMARY | 2024-06-12 06:58 | XMS_ITS | Encounter Summary ---
Author Organization [employer] Address 75 [facility] 7t [place] [address] Care Team Providers Care Wastewater Technician Name Role Phone Mirtha Lunsford MD Primary Care Provider + [phone] Victoria Radford PharmD Unavailable [phone] Acosta Sinha VESSEL SPECIALIST Unavailable Unavailable Flip Wan MD Unavailable [phone] Dmitri Sequeira MD Unavailable [phone] Stephane Pisano MD Unavailable Melvin Claros MD Unavailable [phone] Artur Aguilar MD Unavailable [phone] Encounter Details Date Type Department Care Team (Latest Contact Info) Description 07/25/2020 Abstract [facility] CONVERSIONS Dental, Provider, DDS Social History Tobacco [...] Description 06/18/2024 9:15 AM EDT Office Visit [facility] MEDICINE 230 [place] [address] Mirtha Lunsford MD 230 [place] [address] 07/18/2024 8:00 AM EDT Office Visit [facility] ADULT DENTAL 230 [place] [address] Rebecca Capps documented as of this encounter Visit Diagnoses Not on filedocumented in this encounter Care Teams Wastewater Technician Relationship Specialty Start Date End Date Mirtha Lunsford MD 230 [place] [address] PCP - General Family Medicine 03/04/15 Victoria Radford, GypsyD 230 [place] [address] Pharmacist Internal Medicine 08/03/22 Acosta Sinha FNP 230 [place] [address] Nurse Practitioner Family Medicine 01/17/23 Flip Wan MD 5 [place] [address] Pulmonary Disease 02/02/24 Dmitri Sequeira MD [address] [address] Nephrology 02/10/24 Stephane Pisano MD 11 [facility] 3rd [place] [address] General Surgery 02/10/24 Melvin Claros MD 596 [place] [address] Cardiology 04/16/24 Artur Aguilar MD [address] [place] [address] Endocrinology 05/31/24 NARAYAN LICEA Education RnParty Director 01/06/23 02/06/24 Ghassan Fletcher Education RnParty Director 02/07/24 documented as of this encounter
--- OUTSIDE RECORDS SUMMARY | 2024-06-12 06:58 | XMS_ITS | Encounter Summary ---
Author Organization [employer] Address [address] [facility] [address] 7t [place] [address] Care Team Providers Care Flake Or Shred Roll Operator Name Role Phone Mirtha Lunsford MD Primary Care Provider + [phone] Victoria Radford PharmD Unavailable Acosta Sinha MEDICAL PRACTITIONERS Unavailable Unavailable Flip Wan MD Unavailable [phone] Dmitri Sequeira MD Unavailable [phone] Stephane Pisano MD Unavailable [phone] Melvin Claros MD Unavailable [phone] Artur Aguilar MD Unavailable [phone] Reason for Visit * Reason Comments Med Refill Encounter Details Date Type Department Care Team (Late st Contact Info) Description 09/06/2023 Refill [facility] MEDICINE 230 [place], [place] [phone] Mirtha Lunsford MD 230 [place] [address] Social History Tobacco Use Types Packs/Day Years [...] Description 06/18/2024 9:15 AM EDT Office Visit [facility] MEDICINE [address] [place] [address] Mirtha Lunsford MD 230 [place] [address] 07/18/2024 8:00 AM EDT Office Visit [facility] ADULT DENTAL [address] [place] [address] Rebecca Capps documented as of this encounter [...] documented as of this encounter Care Teams Flake Or Shred Roll Operator Relationship Specialty Start Date End Date Mirtha Lunsford MD 230 [place] [address] PCP - General Family Medicine 03/04/15 Victoria Radford, GypsyD [address] [place] [address] Pharmacist Internal Medicine 08/03/22 Acosta Sinha FNP [address] [place] [address] Nurse Practitioner Family Medicine 01/17/23 Flip Wan MD 5 [place] [address] Pulmonary Disease 02/02/24 Dmitri Sequeira MD 100 [facility] [address] 200 [place] [address] Nephrology 02/10/24 Stephane Pisano MD 11 [facility] 3rd [place] [address] General Surgery 02/10/24 Melvin Claros MD 596 [place] [address] Cardiology 04/16/24 Artur Aguilar MD [address] [place] [address] Endocrinology 05/31/24 NARAYAN LICEA Senior Strategy ManagerSilk Screener 01/06/23 02/06/24 Ghassan Fletcher Senior Strategy ManagerSilk Screener 02/07/24 documented as of this encounter
--- OUTSIDE RECORDS SUMMARY | 2024-06-12 06:58 | XMS_ITS | Encounter Summary ---
Author Organization [employer] Address [address] [facility] [address] 7t [place] [address] Care Team Providers Care Riverboat Master Name Role Phone Mirtha Lunsford MD Primary Care Provider + [phone] Victoria Radford PharmD Unavailable [phone] Acosta Sinha ELEVATOR OPERATOR SERVICE Unavailable Unavailable Flip Wan MD Unavailable [phone] Dmitri Sequeira MD Unavailable [phone] Stephane Pisano MD Unavailable Melvin Claros MD Unavailable Artur Aguilar MD Unavailable [phone] Encounter Details Date Type Department Care Team (Late st Contact Info) Description 08/24/2023 Abstract [facility] MEDICINE 230 [place], [place] [phone] Mirtha Lunsford MD 230 [place], [place] [phone] Social History Tobacco Use Types Packs/Day Years [...] EDT Office Visit [facility] MEDICINE [address] [place] [address] Mirtha Lunsford MD [address] [place] [address] 07/18/2024 8:00 AM EDT Office Visit [facility] ADULT DENTAL [address] [place] [address] Rebecca Capps documented as of this encounter [...] documented as of this encounter Care Teams Riverboat Master Relationship Specialty Start Date End Date Mirtha Lunsford MD 230 [place] [address] PCP - General Family Medicine 03/04/15 Victoria Radford PharmD [address] [place] [address] Pharmacist Internal Medicine 08/03/22 Acosta Sinha FNP [address] [place] [address] Nurse Practitioner Family Medicine 01/17/23 Flip Wan MD 5 [place] [address] Pulmonary Disease 02/02/24 Dmitri Sequeira MD [address] [address] Nephrology 02/10/24 Stephane Pisano MD 11 [facility] 3rd [place] [address] General Surgery 02/10/24 Mlevin Claors MD 596 [place] [address] Cardiology 04/16/24 Artur Aguilar MD 10 [facility] [address] [place] [address] Endocrinology 05/31/24 NARAYAN LICEA Paper SealerPhysician Coder 01/06/23 02/06/24 Ghassan Fletcher Paper SealerPhysician Coder 02/07/24 documented as of this encounter
--- OUTSIDE RECORDS SUMMARY | 2024-06-12 06:58 | XMS_ITS | Encounter Summary ---
Author Organization [employer] Address [address] 7t [place] [address] Care Team Providers Care Vehicle Service Agent Name Role Phone Mirtha Lunsford MD Primary Care Provider + [phone] Victoria Radford PharmD Unavailable Acosta Sinha Unavailable Unavailable Flip Wan MD Unavailable [phone] Dmitri Sequeira MD Unavailable [phone] Stephane Pisano MD Unavailable [phone] Melvin Claros MD Unavailable [phone] Artur Aguilar MD Unavailable [phone] Reason for Visit * Reason Comments Med Refill Encounter Details Date Type Department Care Team (Late st Contact Info) Description 12/29/2023 Refill [facility] MEDICINE 230 [place], [place] [phone] Anya Muller, ANP 230 [place] [address] Essential hypertension Social History Tobacco Use Types [...] Description 06/18/2024 9:15 AM EDT Office Visit [facility] MEDICINE 230 [place] [address] Mirtha Lunsford MD 230 [place] [address] 07/18/2024 8:00 AM EDT Office Visit [facility] ADULT DENTAL 230 [place] [address] Rebecca Capps documented as of this encounter Goals Goal Patient Goal Type Associated Problems Recent Progress Patient-Stated? Author Blood Pressure < 140/90 Blood Pressure 132/84( 025 10:22 AM EDT) No Victoria Mayo PharmD Reduce tobacco use (cigarettes, smokeless, etc) Tobacco Use No Petes-Victoria Swanson, PharmD documented as of this encounter Visit Diagnoses Diagnosis Essential hypertension Unspecified essential hypertension documented in this encounter Additional Health Concerns Assessment Noted Time PHQ-9 Depression Total Score: 0 06/17/19 24 9:26 AM EDT documented as of this encounter Care Teams Vehicle Service Agent Relationship Specialty Start Date End Date Mirtha Lunsford MD 230 [place] [address] PCP - General Family Medicine 03/04/15 Victoria Radford, PharmD [address] [place] [address] Pharmacist Internal Medicine 08/03/22 Acosta Sinha FNP [address] [place] [address] Nurse Practitioner Family Medicine 01/17/23 Flip Wan MD [address] [place] [address] Pulmonary Disease 02/02/24 Dmitri Sequeira MD [address] [address] Nephrology 02/10/24 Stephane Pisano MD [address] [place] [address] 3rd [place] [address] General Surgery 02/10/24 Melvin Claros MD 596 [place] [address] Cardiology 04/16/24 Artur Aguilar MD [address] [place] [address] Endocrinology 05/31/24 NARAYAN LICEA Real Estate Agency PrincipalBiology Lecturer 01/06/23 02/06/24 Ghassan Fletcher Real Estate Agency PrincipalBiology Lecturer 02/07/24 documented as of this encounter
--- OUTSIDE RECORDS SUMMARY | 2024-06-12 06:58 | XMS_ITS | Encounter Summary ---
Author Organization [employer] Address [address] 7t [place] [address] Care Team Providers Care Jewelry Salesperson Name Role Phone Mirtha Lunsford MD Primary Care Provider Victoria Radford PharmD Unavailable Acosta Sinha BANKRUPTCY PARALEGAL Unavailable Unavailable Flip Wan MD Unavailable [phone] Dmitri Sequeira MD Unavailable [phone] Stephane Pisano MD Unavailable [phone] Melvin Claros MD Unavailable Artur Aguilar MD Unavailable [phone] Encounter Details Date Type Department Care Team (Late st Contact Info) Description 09/08/2022 Abstract [facility] MED[facility]INE 230 [place] [address] Mirtha Lunsford MD 230 [place], [place] [phone] Social History Tobacco Use Types Packs/Day Years [...] Description 06/18/2024 9:15 AM EDT Office Visit [facility] 230 [place] [address] Mirtha Lunsford MD 230 [place] [address] 07/18/2024 8:00 AM EDT Office Visit [facility] ADULT DENTAL 230 [place] [address] Rebecca Capps documented as of this encounter [...] documented as of this encounter Care Teams Jewelry Salesperson Relationship Specialty Start Date End Date Mirtha Lunsford MD [address] [place] [address] PCP - General Family Medicine 03/04/15 Victoria Radford, PharmD [address] [place] [address] Pharmacist Internal Medicine 08/03/22 Acosta Sinha FNP [address] [place] [address] Nurse Practitioner Family Medicine 01/17/23 Flip Wan MD [address] [place] [address] Pulmonary Disease 02/02/24 Dmitri Sequeira MD [address] [place] [address] 200 [place] [address] Nephrology 02/10/24 Stephane Pisano MD [address] 3rd [place] [address] General Surgery 02/10/24 Melvin Claros MD 596 [place] [address] Cardiology 04/16/24 Artur Aguilar MD [address] [place] [address] Endocrinology 05/31/24 NARAYAN LICEA Judicial AssistantHearing Therapist 01/06/23 02/06/24 Ghassan Fletcher Judicial AssistantHearing Therapist 02/07/24 documented as of this encounter
--- OUTSIDE RECORDS SUMMARY | 2024-06-12 06:58 | XMS_ITS | Encounter Summary ---
Author Organization [employer] Address [address] [facility] 7t [place] [address] Care Team Providers Care Forecast Analyst Name Role Phone Mirtha Lunsford MD Primary Care Provider + [phone] Victoria Radford PharmD Unavailable [phone] Acosta Sinha JOB DEVELOPER Unavailable Unavailable Flip Wan MD Unavailable [phone] Dmitri Sequeira MD Unavailable [phone] Stephane Pisano MD Unavailable [phone] Melvin Claros MD Unavailable [phone] Artur Aguilar MD Unavailable [phone] Reason for Visit * Reason Comments Med Refill Encounter Details Date Type Department Care Team (Late st Contact Info) Description 04/12/2024 Refill [facility] MED[facility] 230 [place], [place] [phone] Mirtha Lunsford MD 230 [place] [address] Moderate persistent asthma without complication Social History [...] Description 06/18/2024 9:15 AM EDT Office Visit [facility] MEDICINE 230 [place] [address] Mirtha Lunsford MD 230 [place] [address] 07/18/2024 8:00 AM EDT Office Visit [facility] ADULT DENTAL 230 [place] [address] Rebecca Capps documented as of this encounter [...] documented as of this encounter Care Teams Forecast Analyst Relationship Specialty Start Date End Date Mirtha Lunsford MD 230 [place] [address] PCP - General Family Medicine 03/04/15 Victoria Radford, PharmD [address] [place] [address] Pharmacist Internal Medicine 08/03/22 Acosta Sinha FNP [address] [place] [address] Nurse Practitioner Family Medicine 01/17/23 Flip Wan MD [address] [place] [address] Pulmonary Disease 02/02/24 Dmitri Sequeira MD [address] [address] Nephrology 02/10/24 Stephane Pisano MD [address] [place] [address] 3rd [place] [address] General Surgery 02/10/24 Melvin Claros MD 596 [place] [address] Cardiology 04/16/24 Artur Aguilar MD [address] [place] [address] Endocrinology 05/31/24 Ghassan Fletcher White Sugar SupervisorWaste And Batting Waste Chopper 02/07/24 documented as of this encounter
--- OUTSIDE RECORDS SUMMARY | 2024-06-12 06:58 | XMS_ITS | Encounter Summary ---
Author Organization [employer] Address [address] [facility] 7t [place] [address] Care Team Providers Care Hide Examiner Name Role Phone Mirtha Lunsford MD Primary Care Provider + [phone] Victoria Radford PharmD Unavailable Acosta Sinha WORK OVER RIG OPERATOR Unavailable Unavailable Flip Wan MD Unavailable [phone] Dmitri Sequeira MD Unavailable [phone] Stephane Pisano MD Unavailable [phone] Melvin Claros MD Unavailable [phone] Artur Aguilar MD Unavailable [phone] Reason for Visit * Reason Comments Med Refill Encounter Details Date Type Department Care Team (Late st Contact Info) Description 04/03/2024 Refill [facility] MEDICINE 230 [place], [place] [phone] Mirtha Lunsford MD 230 [place] [address] Mild intermittent asthma without complication Social History [...] Office Visit [facility] MEDICINE 230 [place] [address] Mirtha Lunsford MD 230 [place] [address] 07/18/2024 8:00 AM EDT Office Visit [facility] ADULT DENTAL 230 [place] [address] Rebecca Capps documented as of this encounter [...] documented as of this encounter Care Teams Hide Examiner Relationship Specialty Start Date End Date Mirtha Lunsford MD 230 [place] [address] PCP - General Family Medicine 03/04/15 Victoria Radford, PharmD [address] [place] [address] Pharmacist Internal Medicine 08/03/22 Acosta Sinha FNP [address] [place] [address] Nurse Practitioner Family Medicine 01/17/23 Flip Wan MD [address] [place] [address] Pulmonary Disease 02/02/24 Dmitri Sequeira MD [address] [address] Nephrology 02/10/24 Stephane Pisano MD [address] [place] [address] 3rd [place] [address] General Surgery 02/10/24 Melvin Claros MD 596 [place] [address] Cardiology 04/16/24 Artur Aguilar MD [address] [place] [address] Endocrinology 05/31/24 Ghassan Fletcher Fleet SalespersonService Center Assistant 02/07/24 documented as of this encounter
--- OUTSIDE RECORDS SUMMARY | 2024-06-12 06:58 | XMS_ITS | Encounter Summary ---
Author Organization [facility] Address [address] [facility] [facility] 200 [place] [address] Phone Care Team Providers Care Hot Blaster Name Role Phone Tavia Mosquera Primary Care Provider [phone] Reason for Referral * Imaging (Routine) - Closed Specialty Diagnoses / Procedures Referred By Contac t Referred To Contact Diagnoses Right kidney absent Procedures Ultrasound renal limited Dmitri Sequeira MD Phone: tel: fax: Referral ID Status Reason Start Date Expiration Date Visits Re quested Visits Authorized [id number] Closed 09/22/2023 09/21/2024 1 1 Encounter Details Date Type Department Care Team (Latest Contact Info) Description 09/22/2023 Office Communication [facility] [address] [facility] 200 [place] [address] Dmitri Sequeira MD [address] [facility] 204 [place] [phone] Right kidney absent (Primary Dx) Social History [...] saw him--put on schedule 09/22/23 so I thread dresser write a note * Telephone Encounter - [...] Primary documented in this encounter Care Teams Hot Blaster Relationship Specialty Start Date End Date [facility] [address] [place] [address] PCP - General 04/29/22 documented as of this encounter
--- OUTSIDE RECORDS SUMMARY | 2024-06-12 06:58 | XMS_ITS | Encounter Summary ---
Author Organization [employer] Address [address] [facility] [address] 7t [place] [address] Care Team Providers Care Drafting Detailer Name Role Phone Mirtha Lunsford MD Primary Care Provider + [phone] Victoria Radford PharmD Unavailable Acosta Sinha LOCOMOTIVE PIPE FITTER Unavailable Unavailable Flip Wan MD Unavailable [phone] Dmitri Sequeira MD Unavailable [phone] Stephane Pisano MD Unavailable [phone] Melvin Claros MD Unavailable [phone] Artur Aguilar MD Unavailable [phone] Reason for Visit * Reason Comments Med Refill Encounter Details Date Type Department Care Team (Late st Contact Info) Description 01/04/2024 Refill [facility] MEDICINE 230 [place], [place] [phone] Shayla Ferrer DO 230 [place], [place] [phone] Social History Tobacco Use Types Packs/Day Years [...] [facility] MED[facility] 230 [place] [address] Mirtha Lunsford MD 230 [place] [address] 07/18/2024 8:00 AM EDT Office Visit [facility] ADULT DENTAL 230 [place] [address] Rebecca Capps documented as of this encounter Goals Goal Patient Goal Type Associated Problems Recent Progress Patient-Stated? Author Blood Pressure < 140/90 Blood Pressure 132/84( 025 10:22 AM EDT) No Victoria Mayo, PharmD Reduce tobacco use (cigarettes, smokeless, etc) Tobacco Use No Piers-Gambl nickie, Victoria, PharmD documented as of this encounter Visit Diagnoses Not on filedocumented in this encounter Additional Health Concerns Assessment Noted Time PHQ-9 Depression Total Score: 0 06/17/19 24 9:26 AM EDT documented as of this encounter Care Teams Drafting Detailer Relationship Specialty Start Date End Date Mirtha Lunsford MD [address] [place] [address] PCP - General Family Medicine 03/04/15 Victoria Radford, PharmD [address] [place] [address] Pharmacist Internal Medicine 08/03/22 Acosta Sinha FNP [address] [place] [address] Nurse Practitioner Family Medicine 01/17/23 Flip Wan MD [address] [place] [address] Pulmonary Disease 02/02/24 Dmitri Sequeira MD 100 [facility] 200 [place] [address] Nephrology 02/10/24 Stephane Pisano MD [address] [place] [address] 3rd [place] [address] General Surgery 02/10/24 Melvin Claros MD 596 [place] [address] Cardiology 04/16/24 Artur Aguilar MD [address] [place] [address] Endocrinology 05/31/24 NARAYAN LICEA Box Office ClerkTank Wagon Operator 01/06/23 02/06/24 Ghassan Fletcher Box Office ClerkTank Wagon Operator 02/07/24 documented as of this encounter
--- OUTSIDE RECORDS SUMMARY | 2024-06-12 06:58 | XMS_ITS | Clinical Summary ---
Author Organization [facility] Address [address] [place] [address] [place] [address] Phone Care Team Providers Care Skid Road Worker Name Role Phone Demetri Tavia Primary Care Provider [phone] Allergies Active Allergy Reactions Criticality Noted Date [...] reviewed the films today as well. Mr. Chaipn Dotson has chronic low back pain for [...] plan. Moderate persistent asthma 02/24/202211/18 Overview (11/18/2022): -comparator operator Dr. Wan -continue Flovent -continue Singulair -continue albuterol prn Last Assessment & Plan: -comparator operator Dr. Wan -continue Flovent -continue Singulair -continue [...] 02/18/2022, 02/18/2022, Additional history exists Pneumococcal Vaccine: 50+ Years Completed 11/01/2022, 10/24/2014, 06/25/2014, Additional history exists Pneumococcal Vaccine: Peds ( 0 to 5 Years) and At-Risk Patients (6 to 49 Years) Discontinued 11/01/2022, 10/24/2014, 06/25/2014, Additional history exists Insurance Medicaid [place] Medicaid [place] Care Teams Skid Road Worker Relationship Specialty Start Date End Date [facility] 230 [facility] [place] [address] PCP - General 04/29/22
[2024-06-12 10:11] LABS: Cortisol Random 1.2 ug/dL
[2024-06-23 13:18] LABS: Dexamethasone 583 ng/dL
== END 2024-06-12 06:55 | disposition home or self-care (01) ==
LOC: HO.LAB 06:54
PROVIDERS: PCP Family Medicine; Visit Provider Internal Medicine Endocrinology, Diabetes & Metabolism
DX: D35.01 Benign neoplasm of right adrenal gland (principal)
CPT/HCPCS: 36415; 80299; 82533

== ENCOUNTER 2024-06-20 14:20 | Outpatient (REF) | payer MEDICAID, SELFPAY ==
--- NOTE | ~2024-06-20 | XR_ITS ---
CLINICAL HISTORY: M79.643 - Pain in unspecified hand 3 views of the right hand, 3 views of the left hand Comparison: None Findings: No fractures or dislocations. No significant arthritic change. No erosions. No radiopaque foreign body. Soft tissues are unremarkable. IMPRESSION: 1. No acute findings This document has been electronically signed by: Kam Avina MD on 06/23/2024 06:47:18
--- NOTE | 2024-06-20 14:23 | EMG_ITS ---
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 History of past cervical fusion, lumbar surgery. Chronic neck pain, right-sided mostly. Reason for referral: Evaluate for Carpal Tunnel Syndrome Procedure done: Bilateral upper extremities NCS Precautions and/or limitations: Previous cervical and lumbar spine surgeries The limb temperature was monitored continuously and remained between 32-36 degrees C during the performance of the NCS. Nerve Conduction Studies Anti Sensory Summary Table ?Stim Site NR Onset (ms) Norm Onset (ms) Peak (ms) Norm Peak (ms) O-P Amp (?V) Norm O-P Amp Site1 Site2 Delta-0 (ms) Dist (cm) Masood (m/s) Norm Masood (m/s) Left Median Anti Sensory (2nd Digit) Wrist ? 3.2 4.0 <3.6 14.5 >10 Wrist 2nd Digit 3.2 14.0 44 Right Median Anti Sensory (2nd Digit) Wrist ? 3.0 3.8 <3.6 19.4 >10 Wrist 2nd Digit 3.0 14.0 47 Left Ulnar Anti Sensory (5th Digit) Wrist ? 2.5 3.1 <3.7 22.0 >15.0 Wrist 5th Digit 2.5 14.0 56 Right Ulnar Anti Sensory (5th Digit) Wrist ? 2.3 3.2 <3.7 18.3 >15.0 Wrist 5th Digit 2.3 14.0 61 Motor Summary Table ?Stim Site NR Onset (ms) Norm Onset (ms) O-P Amp (mV) Norm O-P Amp iAmp (mV) Amp (1st) (%) Site1 Site2 Delta-0 (ms) Dist (cm) Masood (m/s) Norm Masood (m/s) Left Median Motor (Abd Poll Brev) Wrist ? 4.0 <3.9 12.3 >4.5 14.1 100.0 Elbow Wrist 3.7 21.0 57 >45 Elbow ? 7.7 12.2 14.1 99.2 Right Median Motor (Abd Poll Brev) Wrist ? 3.8 <3.9 9.4 >4.5 11.0 100.0 Elbow Wrist 3.9 21.0 54 >45 Elbow ? 7.7 9.5 10.9 101.1 Left Ulnar Motor (Abd Dig Minimi) Wrist ? 3.0 <3.0 6.7 >5 8.5 100.0 B Elbow Wrist 3.6 20.5 57 >45 B Elbow ? 6.6 6.7 8.8 100.0 A Elbow B Elbow 1.8 10.0 56 >45 A Elbow ? 8.4 6.3 8.3 94.0 Right Ulnar Motor (Abd Dig Minimi) Wrist ? 2.8 <3.0 7.0 >5 8.9 100.0 B Elbow Wrist 3.5 20.0 57 >45 B Elbow ? 6.3 7.2 9.0 102.9 A Elbow B Elbow 1.6 10.0 62 >45 A Elbow ? 7.9 6.9 9.0 98.6 Comparison Summary Table ?Stim Site NR Peak (ms) Norm Peak (ms) P-T Amp (?V) Site1 Site2 Delta-P (ms) Norm Delta (ms) Right Median/Radial Dig I Comparison (Digit 1 - 10cm) Median ? 2.9 <2.9 31.9 Median Radial 0.1 Radial ? 2.8 <2.8 7.5 FINDINGS: Left median motor nerve showed prolonged distal latency, normal amplitude and normal conduction velocity. Bilateral median sensory nerves showed prolonged peak latency. All other nerves tested were within normal. IMPRESSION: 1. This is an abnormal nerve conduction study. 2. There is electrodiagnostic evidence for left moderate-severe in right mild median neuropathy at the wrist, consistent with carpal tunnel syndrome. 3. There is no electrodiagnostic evidence for ulnar neuropathy. CLINICAL COMMENT: Sending for hand x-rays. Follow up with me after results Thank you for your kind referral. Edwige Varela MD, CHAD Board Certified, [place] Board of Physical Medicine and Rehabilitation (ABPMR) Board Certified, [place] Board of Electrodiagnostic Medicine (ABEM) CODIN 5 [phone] MTDD
--- OUTSIDE RECORDS SUMMARY | 2024-06-20 15:39 | XMS_ITS | Encounter Summary ---
Author Organization [employer] Address [address] [facility] [address] 7t [place] [address] Care Team Providers Care Hand Fretted Instrument Maker Name Role Phone Mirtha Lunsford MD Primary Care Provider + [phone] Victoria Radford PharmD Unavailable Acosta Sinha DRAIN TILE PRESS OPERATOR Unavailable Unavailable Flip Wan MD Unavailable [phone] Dmitri Sequeira MD Unavailable [phone] Stephane Pisano MD Unavailable [phone] Melvin Claros MD Unavailable [phone] Artur Aguilar MD Unavailable [phone] Reason for Visit * Reason Onset Date Comments Other 11/23/2022 Encounter Details Date Type Department Care Team ([facility] st Contact Info) Description 11/23/2022 Telephone [facility] MEDICINE 230 [place], [place] [phone] Mirtha Lunsford MD 230 [place], [place] [phone] Other Social History Tobacco Use Types Packs/Day [...] helping him. Any questions, contact nidia at [phone] documented in this encounter Plan of Treatment Upcoming Encounters Date Type Department Care Team (Late st Contact Info) Description 07/18/2024 8:00 AM EDT Office Visit [facility] ADULT DENTAL 230 [place] [address] Rebecca Capps documented as of this encounter Goals Goal Patient Goal Type Associated Problems Recent Progress Patient-Stated? Author Blood Pressure < 140/90 Blood Pressure 133/90( 025 9:04 AM EDT) No Petes-Victoria Swanson, PharmD documented as of this encounter Visit Diagnoses Not on filedocumented in this encounter Additional Health Concerns Assessment Noted Time PHQ-9 Depression Total Score: 10 023 3:38 PM EDT documented as of this encounter Care Teams Hand Fretted Instrument Maker Relationship Specialty Start Date End Date Mirtha Lunsford MD 230 [place] [address] PCP - General Family Medicine 03/04/15 Victoria Radford, PharmD 230 [place] [address] Pharmacist Internal Medicine 08/03/22 Acosta Sinha FNP 230 [place], [place] Nurse Practitioner Family Medicine 01/17/23 Flip Wan MD [address] [place] [address] Pulmonary Disease 02/02/24 Dmitri Sequeira MD [address] [place] [address] Nephrology 02/10/24 Stephane Pisano MD [address] 3rd [place] [address] General Surgery 02/10/24 Melvin Claros MD 596 [place] [address] Cardiology 04/16/24 Artur Aguilar MD [address] [place] [address] Endocrinology 05/31/24 NARAYAN LICEA Assistant Loan ProcessorMechanic Marine Engine 01/06/23 02/06/24 Ghassan Fletcher Assistant Loan ProcessorMechanic Marine Engine 02/07/24 documented as of this encounter
--- OUTSIDE RECORDS SUMMARY | 2024-06-20 15:39 | XMS_ITS | Encounter Summary ---
Author Organization [employer] Address [address] [facility] [address] 7t [place] [address] Care Team Providers Care Clerk Checker Name Role Phone Mirtha Lunsford MD Primary Care Provider + [phone] Victoria Radford PharmD Unavailable [phone] Acosta Sinha PLUSH BRUSHER Unavailable Unavailable Flip Wan MD Unavailable [phone] Dmitri Sequeira MD Unavailable [phone] Stephane Pisano MD Unavailable Melvin Claros MD Unavailable [phone] Artur Aguilar MD Unavailable [phone] Reason for Visit * Reason Comments Med Refill Encounter Details Date Type Department Care Team (Late st Contact Info) Description 09/23/2022 Refill [facility] [address] [place], [place] [phone] Mirtha Lunsford MD 230 [place], [place] [phone] Seasonal allergies Social History Tobacco Use Types [...] Description 07/18/2024 8:00 AM EDT Office Visit [facility] ADULT DENTAL 230 [place] [address] Rebecca Capps documented as of this encounter Goals Goal Patient Goal Type Associated Problems Recent Progress Patient-Stated? Author Blood Pressure < 140/90 Blood Pressure 133/90( 025 9:04 AM EDT) No Victoria Mayo PharmD documented as of this encounter Visit Diagnoses Diagnosis Seasonal allergies Allergic rhinitis, cause unspecified documented in this encounter Additional Health Concerns Assessment Noted Time PHQ-9 Depression Total Score: 10 023 3:38 PM EDT documented as of this encounter Care Teams Clerk Checker Relationship Specialty Start Date End Date Mirtha Lunsford MD 230 [place] [address] PCP - General Family Medicine 03/04/15 Victoria Radford, PharmD 230 [place] [address] Pharmacist Internal Medicine 08/03/22 Acosta Sinha FNP 230 [place] [address] Nurse Practitioner Family Medicine 01/17/23 Flip Wan MD 5 [place] [address] Pulmonary Disease 02/02/24 Dmitri Sequeira MD 100 [facility] 200 [place] [address] Nephrology 02/10/24 Stephane Pisano MD 11 [facility] 3rd [place] [address] General Surgery 02/10/24 Melvin Claros MD 596 [place] [address] Cardiology 04/16/24 Artur Aguilar MD [address] [place] [address] Endocrinology 05/31/24 NARAYAN LICEA CouncilpersonField Technician 01/06/23 02/06/24 Ghassan Fletcher CouncilpersonField Technician 02/07/24 documented as of this encounter
--- OUTSIDE RECORDS SUMMARY | 2024-06-20 15:39 | XMS_ITS | Clinical Summary ---
Author Organization [employer] Address [address] [place] [address] Care Team Providers Care Custom Furrier Name Role Phone Mirtha Lunsford MD Primary Care Provider [phone]- [phone] Victoria Radford PharmD Unavailable Acosta Sinha PRODUCT MARKETING PROGRAMS MANAGER Unavailable Unavailable Flip Wan MD Unavailable [phone] Dmitri Sequeira MD Unavailable Stephane Pisano MD Unavailable [phone] Melvin Claros MD Unavailable Artur Aguilar MD Unavailable [phone] Allergies Active Allergy Reactions Criticality Noted Date [...] Once per day. 90 tablet 024 Active omalizumab (Xolair) 150 MG/ML injectionIndica [...] times daily. 42 g 2 024 Active loratadine (Claritin) 10 MG tabletIndicatio ns:Seasonal allergies TAKE 1 TABLET BY MOUTH EVERY MORNING 90 tablet 1 025 Active Combivent Respimat 20-100 MCG/ACT inhalerIndicati ons:Mild intermittent asthma without complication INHALE 1 PUFF BY INHALATION ROUTE 4 TIMES EVERY DAY MAY TAKE ADDITIONAL PUFFS NEEDED NOT TO EXCEED 6 PUFFS IN 24HRS 4 g 7 025 Active lidocaine (Lidoderm) 5 % patchIndication s:Sacroiliac joint dysfunction APPLY 1 PATCH TOPICALLY TO SKIN, LEAVE ON FOR 12 HOURS AND OFF FOR 12 HOURS DIRECTED 30 patch 1 025 Active albuterol (Ventolin HFA) 108 (90 Base) MCG/ACT inhalerIndicati ons:Moderate persistent asthma without complication INHALE 2 PUFFS BY MOUTH EVERY 4 HOURS NEEDED FOR WHEEZING OR SHORTNESS OF BREATH 18 g 1 025 Active mometasone (Elocon) 0.1 % creamIndication s:Rash APPLY TOPICALLY TO THE AFFECTED AREA(S) ONCE DAILY 45 g 1 025 Active pregabalin (Lyrica) 150 MG capsuleIndicati ons:Chronic bilateral low back pain, unspecified whether sciatica present TAKE 1 CAPSULE BY MOUTH TWICE DAILY IN THE MORNING AND IN THE EVENING 60 capsule 025 Active lisinopril 20 MG tabletIndicatio ns:Essential hypertension Take 1 tablet (20 mg) by mouth in the morning. 90 tablet 3 025 Active metoprolol succinate XL (Toprol-XL) 25 MG 24 hr tabletIndicatio ns:Essential hypertension Take 1 tablet by mouth once daily. Do not crush or chew. 90 tablet 3 025 Active baclofen (Lioresal) 10 MG tabletIndicatio ns:Sacroiliac joint dysfunction TAKE 1 TABLET BY MOUTH THREE TIMES DAILY IN THE MORNING, AT NOON, AND AT BEDTIME NEEDED FOR MUSCLE SPASMS 60 tablet 1 025 Active metoprolol succinate XL (Toprol-XL) 25 MG 24 hr tabletIndicatio ns:Essential hypertension Take 1 tablet by mouth once daily. Do not crush or chew. 90 tablet 3 024 2024 Discontinued(R eorder (will not trigger notification to Pharmacy)) lisinopril 20 MG tabletIndicatio ns:Essential hypertension Take 1 tablet (20 mg) by mouth in the morning. 90 tablet 024 2024 Discontinued mometasone (Elocon) 0.1 % creamIndication s:Rash APPLY TO THE AFFECTED AREA(S) TOPICALLY ONCE DAILY 45 g 1 025 2024 Discontinued baclofen (Lioresal) 10 MG tabletIndicatio ns:Sacroiliac joint dysfunction TAKE 1 TABLET BY MOUTH THREE TIMES DAILY IN THE MORNING, AT NOON, AND AT BEDTIME NEEDED FOR MUSCLE SPASMS 60 tablet 1 025 2024 Discontinued pregabalin (Lyrica) 150 MG capsuleIndicati ons:Chronic bilateral low back pain, unspecified whether sciatica present TAKE 1 CAPSULE BY MOUTH TWICE DAILY IN THE MORNING AND IN THE EVENING 60 capsule 025 2024 Discontinued lisinopril 20 MG tabletIndicatio ns:Essential hypertension TAKE 1 TABLET BY MOUTH EVERY MORNING 90 tablet 025 2024 Discontinued(R eorder (will not trigger notification to Pharmacy)) Active Problems Problem Noted Date Diagnosed Date Multiple lipomas 06/18/2024 Overview (06/18/2024): Multiple lipomas as described in physical exam. History of lipoma removal. - Will refer back to surgery as they are bothersome to him. Referred to General Surgery 06/18/24. Assessment & Plan (06/18/2024 2:49 PM EDT): Multiple lipomas as described in physical exam. History of lipoma removal. - Will refer back to surgery as they are bothersome to him. Referred to General Surgery 06/18/24. Ingrown nail of great toe 06/18/2024 Overview (06/18/2024): - Podiatry referral was placed 06/18/24. Assessment & Plan (06/18/2024 3:01 PM EDT): - Podiatry referral was placed 06/18/24. Leg muscle spasm 06/18/2024 Overview (06/18/2024): Left leg spasm, likely from underlying back issues. No evidence of nerve compression. - Recommended to continue with orthopedics Assessment & Plan (06/18/2024 2:59 PM EDT): Left leg spasm, likely from underlying back issues. No evidence of nerve compression. - Recommended to continue with orthopedics Hx of chest pain 04/16/2024 Overview (04/16/2024): -Patient followed at [facility] with Dr. Agueda Claros DO. Note from 04/12/24 reviewed. Stiffness of joints of both hands 02/23/2024 Overview (06/18/2024): Ongoing stiffness and pain to both hands. - Inflammatory and rheumatoid labs Feb 2024 were negative. - NCS scheduled 06/20/24 Assessment & Plan (06/18/2024 2:55 PM EDT): Ongoing stiffness and pain to both hands. - Inflammatory and rheumatoid labs Feb 2024 were negative. - NCS scheduled 06/20/24 Fissures in skin of both feet 12/19/2023 [...] OTC athletes foot cream Dietary counseling 08/29/2023 Assessment & Plan (06/18/2024 2:49 PM EDT): Dietary Recommendations: Fruits, vegetables, whole grains, protein foods, and fat-free or low-fat dairy products are healthy choices. Eat different types of protein foods in your diet. This can include seafood, lean meats, poultry, beans, peas, lentils, nuts, seeds, soy products, and eggs. Limit foods and beverages higher in added sugars, saturated fat, and sodium. Exercise counseling 08/29/2023 Assessment & Plan (06/18/2024 2:50 PM EDT): Exercise Recommendations: At least 150 minutes of moderate-intensity physical activity per week, or an equivalent combination of moderate- and vigorous-intensity activity. Class 1 obesity due to exces s calories with serious comorbidity and body mass index (BMI) of 33.0 to 33.9 in adult 08/29/2023 Overview (06/18/2024): Discussed weight, diet, exercise with patient in relation to health conditions. Used motivational interviewing to illicit change talk and established initial goals with patient. Assessment & Plan (06/18/2024 3:05 PM EDT): Discussed weight, diet, exercise with patient in relation to health conditions. Used motivational interviewing to illicit change talk and established initial goals with patient. Memory problem 08/29/2023 Overview (08/29/2023): -discussed memory [...] and nutrition interventions discussed. -Patient followed at [facility] with Dr. Agueda Claros DO. [...] retention. I spoke with JULIETA Wood at [facility] pain clinic and they want the last CT scan faxed at [phone], they will fu with patient this week. Order lumbar MRI ro cord compromise Other specified health status 07/02/2022 Overview (06/18/2024): -next physical exam due after 06/18/25 -eye care facilitated by [facility] -dental home is [facility] [place] -health care proxy filed 12/19/23 Assessment & Plan (06/18/2024 3:03 PM EDT): -next physical exam due after 06/18/25 -eye care facilitated by [facility] -dental home is [facility] [place] -health care proxy filed 12/19/23 Assessment & Plan (12/19/2023 9:30 AM EDT): -next physical exam due after 05/29/2024 -eye care facilitated by [facility] -dental home is [facility] [place] -health care proxy filed 12/19/23 Assessment & Plan (05/30/2023 10:13 AM EDT): -next physical exam due after 02/28/2023 -eye care facilitated by [facility] -dental home is [facility] [place] -health care proxy given on 05/30/2023 Assessment & Plan (11/01/2022 9:15 AM EDT): -next physical exam due after 02/28/2023 -eye care facilitated by [facility] -dental home is Adrenal cortical adenoma 06/28/2022 Overview (05/31/2024): Seen by Dr. Aguilar 05/08/2021 (prior was followed by Dr. Msoeley) Hx incidental finding right adrenal nodule found in CT preformed in ER Feb 2018 c/w benign adenoma. Biochemical workup showed mass not legal secretary receptionist including dexamethasone suppression test. Repeat CT done 2019. -seen 06/02/2023 The plan is to continued observation. May repeat 1 mg dexamethasone suppression test in 1 year -seen 05/31/[address] Aguilar -The plan is to continued observation. Will repeat 1 mg dexamethasone suppression test -Regular surveillance of the stable adrenal mass is recommended. Cortisol levels should be assessed annually through a dexamethasone suppression test to monitor adrenal function. -Follow up Dr. Aguilar 1 year recommended Assessment & Plan (02/23/2024 10:08 AM EST): Seen by Dr. Aguilar 05/08/2021 (prior was followed by Dr. Moseley) Hx incidental finding right adrenal nodule found in CT preformed in ER Feb 2018 c/w benign adenoma. Biochemical workup showed mass not legal secretary receptionist including dexamethasone suppression test. Repeat CT done [...] benign adenoma. Biochemical workup showed mass not legal secretary receptionist including dexamethasone suppression test. Repeat CT done 2019. Follow up Dr. Aguilar 1 year recommended. -referral placed 05/30/23 Assessment & Plan (01/24/2023 9:53 AM EST): Seen by Dr. Aguilar 05/08/2021 (prior was followed by Dr. Moseley) Hx incidental finding right adrenal nodule found in CT preformed in ER Feb 2018 c/w benign adenoma. Biochemical workup showed mass not legal secretary receptionist including dexamethasone suppression test. Repeat CT done [...] plan. 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 Wan seen 02/02/24 -Well controlled on current regimen of Xolair, Combivent, Advair, albuterol MDI. -last prednisone use 12/28/23 for exacerbation, given by pulmonary Assessment & Plan (06/18/2024 3:06 PM EDT): -sewer pipe sorter Dr. Wan seen 02/02/24 -Well controlled on current regimen of Xolair, Combivent, Advair, albuterol MDI. -last prednisone use 12/28/23 for exacerbation, given by pulmonary Assessment & Plan (02/23/2024 10:09 AM EST): -sewer pipe sorter Dr. Wan seen 02/02/24 -Well controlled on current regimen of Xolair, Combivent, Advair, albuterol MDI. -last prednisone use 12/28/23 for exacerbation, given by pulmonary Assessment & Plan (05/30/2023 12:31 PM EDT): -sewer pipe sorter Dr. Wan seen 12/2022 -Well controlled on current regimen of Xolair, Combivent, Advair, albuterol MDI. Continue current Assessment & Plan (01/24/2023 9:53 AM EST): -sewer pipe sorter Dr. Wan seen 12/2022 -Well controlled on current regimen of Xolair, Combivent, Advair, albuterol MDI. Continue current Assessment & Plan (12/20/2022 8:01 PM EDT): Few wheezing on lung exam,reports feeling well -offered NBZ tx here but refuse states will get at home ,and got pump tx before coming that may cause elevated HR -continue his regular inh and montelukast -continue care w sewer pipe sorter -planned apt for next month -advised to get booster for COVID 19 at vaccine clinic, pt s/p p20 and flu vaccine already Assessment & Plan (11/01/2022 9:02 AM EDT): -sewer pipe sorter Dr. Wan -continue Flovent -continue Singulair -continue albuterol prn Assessment & Plan (06/28/2022 10:09 AM EDT): Normal lung exam. advised to call Dr. Wan, his sewer pipe sorter, for kristan't. continue Flovent, Singulair, may use [...] up 1 month Tubular adenoma 02/15/2022 Overview (06/18/2024): Tubular adenoma on colonoscopy 03/[address] Pisano, referred 03/2021 follow up 3 years recommended -colonoscopy intake with Dr. Pisano 07/08/23 with multiple polyps recommending repeat in 1 year -has follow-up scheduled with Dr. Pisano per pt's report 06/18/24 in the next few months. Assessment & Plan (06/18/2024 3:04 PM EDT): Tubular adenoma on colonoscopy 03/[address] Pisano, referred 03/2021 follow up 3 years recommended -colonoscopy intake with Dr. Pisano 07/08/23 with multiple polyps recommending repeat in 1 year -has follow-up scheduled with Dr. Pisano per pt's report 06/18/24 in the next few months. Assessment & Plan (08/29/2023 8:28 AM EDT): [...] kidney disease 08/19/2020 Essential hypertension 08/19/2020 Overview (06/18/2024): -followed by [facility] -echo 03/31/23 EF 60-65% no changes compared to02/2017 -Blood pressure is slightly above goal, recommended monitoring at home. -Continue lifestyle modifications -Continue current medications -cardiology note from 04/12/23, no changes, follow up 6 months Assessment & Plan (06/18/2024 3:06 PM EDT): -followed by [facility] -echo 03/31/23 EF 60-65% no changes compared to02/2017 -Blood pressure is slightly above goal, recommended monitoring at home. -Continue lifestyle modifications -Continue current medications -cardiology note from 04/12/23, no changes, follow up 6 months Assessment & Plan (11/03/2023 10:12 AM EDT): -followed by [facility] -echo 03/31/23 EF 60-65% no changes compared to02/2017 -Blood pressure is at goal -Continue lifestyle modifications -Continue current medications -cardiology note from 04/12/23, no changes, follow up 6 months Assessment & Plan (05/30/2023 12:31 PM EDT): -followed by [facility] -echo 03/31/23 EF 60-65% no changes compared [...] psychiatric prescriber Loraine Bunch Assessment & Plan (06/18/2024 3:03 PM EDT): -Followed by psychiatric prescriber Loraine Bunch Assessment & Plan (05/30/2023 12:33 PM EDT): Followed by psychiatric prescriber Loraine Bunch Dyslipidemia 03/09/2012 Overview (06/18/2024): Lab Results Component Value Date CHOL 183 08/26/2023 CHOL 237 (H) 05/30/2023 TRIG 78 08/26/2023 TRIG 139 05/30/2023 TRIG 159 (H) 03/05/2022 HDL 78 08/26/2023 HDL 79 05/30/2023 LDLCHOLCAL 90 08/26/2023 LDLCHOLCAL 131 (H) 05/30/2023 -atorvastatin increased from 40mg to 80mg by [facility] 08/2023 -continue lifestyle modifications Assessment & Plan (06/18/2024 3:03 PM EDT): Lab Results Component Value Date CHOL 183 08/26/2023 CHOL 237 (H) 05/30/2023 TRIG 78 08/26/2023 TRIG 139 05/30/2023 TRIG 159 (H) 03/05/2022 HDL 78 08/26/2023 HDL 79 05/30/2023 LDLCHOLCAL 90 08/26/2023 LDLCHOLCAL 131 (H) 05/30/2023 -atorvastatin [place] from 40mg to 80mg by [facility] [place] 08/2023 -continue lifestyle modifications Assessment & Plan [...] -continue lifestyle modifications Nicotine dependence 03/09/2012 Overview (06/18/2024): -Cigg/day: 5 -Age started: 23 -Total years smokin -Pack year history: 15 packs Encouraged smoking cessation resources such as pharmacomtherapy, [facility] smoking cessation group, and [facility] pharmacy smoking cessation clinic -14mg and 7mg patches trialed 11/01/2022 Discussed USPSTF recommends annual lung cancer screening with low dose CT in people who meet the following criteria: -ages 50 to 80 years. -have a 20 pack-year smoking history. -currently smoke cigarettes or quit within the past 15 years. -LDCT: referral on 05/30/2023 to pharmacy with Mer[facility] Mejia [facility]: patient seen in [facility] 10/31/23 and reports smoking 4-5cigs/day and denies using NRT, states he will continue efforts without NRT. Ordered LDCT 06/18/24. Assessment & Plan (06/18/2024 3:02 PM EDT): -Cigg/day: 5 -Age started: 23 -Total years smokin -Pack year history: 15 packs Encouraged smoking cessation resources such as pharmacomtherapy, [facility] smoking cessation group, and [facility] pharmacy smoking cessation clinic -14mg and 7mg patches trialed 11/01/2022 Discussed USPSTF recommends annual lung cancer screening with low dose CT in people who meet the following criteria: -ages 50 to 80 years. -have a 20 pack-year smoking history. -currently smoke cigarettes or quit within the past 15 years. -LDCT: referral on 05/30/2023 to pharmacy with Merary Mejia [facility]: patient seen in [facility] 10/31/23 and reports smoking 4-5cigs/day and denies using NRT, states he will continue efforts without NRT. Ordered LDCT 06/18/24. Assessment & Plan (05/30/2023 10:18 AM EDT): -Cigg/day: 5 -Age started: 23 -Total years smokin -Pack year history: 15 packs Encouraged smoking cessation resources such as pharmacomtherapy, [facility] smoking cessation group, and [facility] pharmacy smoking cessation clinic -14mg and 7mg [...] diet and exercise,discussed healthy life style -discussed religious studies professor referral -referred today Acute dehydration 09/23/2022 10/27/2022 [...] is for one week only and not termite exterminator helper. Acute idiopathic gout involv ing toe of [...] 02/10/2024 Asthma 06/28/2022 10/27/2022 Environmental allergies 06/28/2022 12 Use of combustion-free vaporization device 06/28/2022 02/10/2024 [...] Encounters Date Type Department Care Team Description 06/19/2024 Refill [facility] [address] [place] [id number] Mirtha Lunsford MD Sacroiliac joint dysfunction 06/18/2024 9:15 AM EDT Office Visit [facility] [address] [place] [address] [phone] Mirtha Lunsford MD Lipoma, unspecified site (Primary Dx); Ingrown nail of great toe; Leg muscle spasm; Stiffness of joints of both hands; Moderate persistent asthma without complication; Essential hypertension; Dyslipidemia; Depressive disorder; Tubular adenoma; Cigarette nicotine dependence without complication; Class 1 obesity due to excess calories with serious comorbidity and body mass index (BMI) of 33.0 to 33.9 in adult; Dietary counseling; Exercise counseling; Other specified health status 06/18/2024 Travel 06/14/2024 Telephone [facility] [address] [place] [phone] Mirtha Lunsford MD Chartprep 06/12/2024 Orders Only GENERIC EXTERNAL DATA DEPARTMENT Provider, Generic External Data 06/08/2024 Orders Only [address] [address] Mirtha Lunsford MD Essential hypertension 06/07/2024 Refill [facility] [address] [place] [id number] Victoria Radford, PharmD Essential hypertension 06/06/2024 Patient Outreach [address] [phone] Mirtha Lunsford MD Pre-visit Planning (SDOH screening negative and Tobacco screening positive) 06/04/2024 Refill [facility] [address] [place] [phone] Mirtha Lunsford MD Chronic bilateral low back pain, unspecified whether sciatica present 05/31/2024 Refill [facility] [address] [place] [phone] Mirtha Lunsford MD Rash 05/18/2024 Refill [facility] [address] [place] [phone] Kwame Tariq MD Moderate persistent asthma without complication 05/16/2024 Telephone [facility] [address] [place] [phone] NUTRITION APPT REQUEST 05/14/2024 Orders Only [facility] [address] [place] [phone] Mirtha Lunsford MD Class 1 obesity due to excess calories with serious comorbidity and body mass index (BMI) of 33.0 to 33.9 in adult (Primary Dx) 05/11/2024 10:30 AM EDT Office Visit [address] [address] Kulwinder Álvarez MD Callus (Primary Dx); Seborrheic keratosis; Viral wart on finger 05/11/2024 Travel 05/10/2024 Orders Only [facility] [address] [place] [id number] Kalli Henderson MD Class 1 obesity due to excess calories with serious comorbidity and body mass index (BMI) of 33.0 to 33.9 in adult (Primary Dx) 05/09/2024 Telephone [facility] [address] [place] [phone] Mirtha Lunsford MD 05/08/2024 Refill [facility] [address] [place] [phone] Mirtha Lunsford MD 05/04/2024 Population Health Risk Score [facility] ([facility] Department [address] [place] [id number] Provider, Population Health Generic 05/02/2024 Refill [facility] [address] [place] [phone] Mirtha Lunsford MD Chronic bilateral low back pain, unspecified whether sciatica present 04/26/2024 Refill [facility] [address] [place] [phone] Mirtha Lunsford MD Sacroiliac joint dysfunction 04/17/2024 3:00 PM EST Office Visit [facility] [address] [place] [phone] Kwame Tariq MD Flu-like symptoms (Primary Dx); Moderate persistent asthma without complication 04/16/2024 Refill [facility] [address] [place] [phone] Anibal Lenz MD Sacroiliac joint dysfunction 04/12/2024 Refill [facility] [address] [place] [phone] Mirtha Lunsford MD Moderate persistent asthma without complication 04/03/2024 Refill [facility] [address] [place] [phone] Mirtha Lunsford MD Mild intermittent asthma without complication 04/03/2024 Refill [facility] [address] [place] [phone] Mirtha Lunsford MD Chronic bilateral low back pain, unspecified whether sciatica present; Mild intermittent asthma without complication from Last 3 Months Immunizations Name Administration [...] Date Recorded Patient Health Questionnaire-9 Score 0 06/18/2024 Patient Health Questionnaire-9 Score 0 06/18/2024 Last PHQ-9: Questionnaire Data Not on file 0 06/18/2024 Housing Stability Answer Date Recorded What is [...] Date Recorded Patient Health Questionnaire-2 Score 0 06/18/2024 Internet Access Answer Date Recorded Internet Access [...] Sign Reading Time Taken Comments Blood Pressure 133/90 06/18/2024 9:04 AM EDT Pulse 98 06/18/2024 9:04 AM EDT Temperature 37.1 ??C (98.7 ??F) 05/11/2024 10:22 AM E DT Respiratory Rate 20 06/18/2024 9:04 AM EDT Oxygen Saturation 94% 04/17/2024 3:08 PM EST Inhaled Oxygen Concentration - - Weight 97.5 kg (215 lb) 06/18/2024 9:04 AM EDT Height 172.7 cm (5' 8 ) 06/18/2024 9:04 AM EDT Body Mass Index 32.69 06/18/2024 9:04 AM EDT Plan of Treatment Upcoming Encounters Date Type Department Care Team (Late st Contact Info) Description 07/18/2024 8:00 AM EDT Office Visit [facility] [address] [place] [address] Rebecca Capps Health Maintenance Due Date Last Done Comments CT Colonography 1968 FIT DNA/Cologuard 1968 FIT 1968 FOBT 1968 Sigmoidoscopy 1968 Dental Oral Exam 07/16/2024 01/16/2024, 05/2020, 04/02/2019, Additional history exists Dental Prophylaxis 07/16/2024 01/16/2024, 0 07/25/2020, 07/03/2018, Additional history exists Colonoscopy 08/23/2024 08/24/2023, 06/21, 07/08/2023, Additional history exists Colorectal Cancer Screening 08/23/2024 DTaP/Tdap/Td Vaccines (2 - Td or Tdap) 10/24/2024 10/24/2014, 11/15/2011, 11/15/2011, Additional history exists Alcohol/Substance Use Screening 12/18/2024 12/19/2023 Dental X-Ray: Bitewings 01/16/2025 01/16/20 24, 04/15/2021, 03/26/2021, Additional history exists SDOH Screening 06/06/2025 06/06/2024 Depression Screening 06/18/2025 06/18/2024, 06/19/19 Tobacco Screening 06/18/2025 06/18/2024 Dental X-Ray: Full Mouth 01/16/2027 024, 07/25/2020, [...] Additional history exists HIV Screening Completed 02/28/2024, 040 09/2023, 03/12/2022 Hepatitis C Screening Completed 02/28/2024 [...] Pressure 133/90( 025 9:04 AM EDT) No Piers-Gambl e, Victoria, PharmD Reduce tobacco use (cigarettes, smokeless, etc) Tobacco Use No Piers-Gambl e, Victoria, PharmD Procedures Procedure Name Priority Date/Time Associated Diagnosis Comments CORTISOL RANDOM Routine 06/12/2024 8:24 AM EDT POCT INFLUENZA A (ID NOW RAPID MOLECULAR) [...] Recently Relevant to Health Maintenance Results * Cortisol Random (06/12/2024 8:24 AM EDT) Cortisol Random 1.2 ug/dL [facility] Comment:Reference Range*: Be fore 10 am 6.2-19.4 ug/dL After 5 pm 2.3-11.9 ug/dL*Please interpret above results accordingly.This test was performed using the Esc[place]edo chemiluminescentmethod. Values obtained from different assay methods cannotbe used interchangeably.Patients receiving fludrocortisone, prednisolone orprednisone may show artificially elevated cortisol valuesdue to cross-reactivity. 06/12/2024 8:24 AM EDT 06/12/2024 8:24 AM EDT us Generic External Data Provider LAB BLOOD ORDERAB LES Final Result [facility] [address] [place] [phone] * POCT Rapid Influenza B ESCOBEDO ID NOW (04/17/2024 3:22 PM EST) Influenza B Negative Negative, Indeterminate [facility] Swab 04/17/2024 3:22 PM EST us Kwame Tariq MD POINT OF CARE TEST ENTER/EDIT OR DERABLES Final Result Performing Organization Address [facility] Co de Phone Number [facility] [address] [place] [phone] * (ABNORMAL) POCT Rapid Influenza A ESCOBEDO ID NOW (04/17/2024 3:22 PM EST) Influenza A Positive( A) Negative, Indeterminate [facility] Swab 04/17/2024 3:22 PM EST Kwame Tariq MD POINT OF CARE TEST ENTER/EDIT OR DERABLES Final Result Performing Organization Address [facility] Co de Phone Number [facility] [address] [place] [phone] * POCT Rapid Covid-19 BinaxNOW (04/17/2024 3:22 PM EST) Rapid COVID Ag Negative [facility] Swab 04/17/2024 3:22 PM EST Kwame Tariq MD POINT OF CARE TEST ENTER/EDIT OR DERABLES Final Result Performing Organization Address [facility] Co de Phone Number [facility] [address] [place] [phone] * Hepatitis C Antibody with Reflex to HCV, RNA, Quantitative, Real-Time PCR (02/28/2024 9:26 AM EST) Pathologist [facility] Hepatitis C Antibody Nonreactive Nonreactive [facility] Comment:Antibodies to HCV no t detected; does not exclude early acuteHCV infection. Blood Venous blood specimen / Unknown 02/28/2024 9:26 AM EST 02/28/2024 11:15 AM EST Mirtha Lunsford MD LAB BLOOD ORDERABLES Final Result Performing Organization Address [facility] Co de Phone Number [facility] [address] [place] [address] [phone] * HIV-1/2 Antigen and Antibodies, Fourth Generation, with Reflexes (02/28/2024 9:26 AM EST) HIV AB/AG Nonreactive Nonreactive [facility] Comment:HIV-1 p24 Ag and/or HIV-1/HIV-2 Ab not detected.A test result that is nonreactive does not exclude thepossibility of exposure to or infection with HIV-1 and/orHIV-2. Nonreactive results in this assay for individualswith prior exposure to HIV-1 and/or HIV-2 may be due toantigen and antibody levels that are below the limit ofdetection of this assay.The Auto [employer]Xtreme Installs HIV Ag/Ab Combo assay result andsupplemental assay results should be interpreted inconjunction with the patient's clinical presentation,history and other laboratory results. If the results areinconsistent with clinical evidence, additional testing issuggested to confirm the result. Blood Venous blood specimen / Unknown 02/28/2024 9:26 AM EST 02/28/2024 11:15 AM EST Mirtha Lunsford MD LAB BLOOD ORDERABLES Final Result Performing Organization Address [facility] Co de Phone Number [facility] [address] [place] [address] [phone] * Lipid Panel, Standard (08/26/2023 9:11 AM EDT) Triglycerides 78 <150 mg/dL [facility] Comment:Desirable Triglyceri de: less than 150 mg/dLBorderline High Triglyceride 150-199 mg/dLHigh Triglyceride: 200-499 mg/dLVery High Triglyceride: greater than or equal to 5OO mg/dL Cholesterol 183 <200 mg/dL [facility] Comment:Desirable Cholestero l: less than 200 mg/dLBorderline High Cholesterol: 200-239 mg/dLHigh Cholesterol: greater than 239 mg/dL LDL Cholesterol Calculated 90 <100 mg/dL [facility] Comment:Desirable LDL: less than 100 mg/dLNear Optimal/Above Optimal LDL: 110- 129 mg/dLBorderline High LDL: 130-159 mg/dLHigh LDL: 160-189 mg/dLVery High LDL: greater than or equal to 190 mg/dL HDL Cholesterol 78 >40 mg/dL [facility] Comment:Desirable HDL: great er than 40 mg/dL Note: This HDL assay may give artificially low results in patients with liver disease. 08/26/2023 9:11 AM EDT 08/26/2023 11:07 AM EDT Mirtha Lunsford MD LAB BLOOD ORDERABLES Final Result [facility] [address] [place] [address] [phone] * (ABNORMAL) Colonoscopy (07/08/2023) Colonoscopy Abnormal( A) Normal Comment:Multiple polyps with Dr. iPsano, repeat 1 year Historical Provider HEALTH MAINTENANCE Edited Result - Final from Last 3 Months or Most Recently Relevant to Health Maintenance Insurance [facility] STAND ADULT Advance Directives Documents on File Type Date Recorded Patient Corporate Event Planner Expl anation Advance Directives and Living Will 12/19/2023 Health Care Proxy 12/19/23 Care Teams Custom Furrier Relationship Specialty Start Date End Date [place], [place] Mirtha [address] [place], [place] PCP - General Family Medicine 03/04/15 Victoria Radford PharmD [address] [place] [address] Pharmacist Internal Medicine 08/03/22 Acosta Sinha FNP [address] [place] [address] Nurse Practitioner Family Medicine 01/17/23 Flip Wan MD [address] [place] [address] Pulmonary Disease 02/02/24 Dmitri Sequeira MD 100 [facility] [address] [place] [address] Nephrology 02/10/24 Stephane Pisano MD [address] 3rd [place] [address] General Surgery 02/10/24 Melvin Claros MD [address] [place] [address] Cardiology 04/16/24 Artur Aguilar MD [address] [place] [address] Endocrinology 05/31/24 Ghassan Fletcher French Folding Machine OperatorStaffing Rn 02/07/24
--- OUTSIDE RECORDS SUMMARY | 2024-06-20 15:39 | XMS_ITS | Encounter Summary ---
Author Organization [employer] Address [address] [facility] [address] 7[address] [place] [address] Care Team Providers Care Wet Washer Machine Name Role Phone Mirtha Lunsford MD Primary Care Provider + [phone] Victoria Radford PharmD Unavailable Acosta Sinha DREDGEMASTER Unavailable Unavailable Flip Wan MD Unavailable [phone] Dmitri Sequeira MD Unavailable [phone] Stephane Pisano MD Unavailable Melvin Claros MD Unavailable [phone] Artur Aguilar MD Unavailable [phone] Reason for Visit * Reason Comments Med Refill Encounter Details Date Type Department Care Team (Late st Contact Info) Description 11/15/2022 Refill [facility] [address] [place], [place] [phone] Mirtha Lunsford MD [address] [place], [place] [phone] Seasonal allergies Social History Tobacco Use Types [...] Description 07/18/2024 8:00 AM EDT Office Visit [facility] ADULT DENTAL 230 [place] [address] Rebecca Capps documented as of this encounter [...] documented as of this encounter Care Teams Wet Washer Machine Relationship Specialty Start Date End Date Mirtha Lunsford MD [address] [place] [address] PCP - General Family Medicine 03/04/15 Victoria Radford, PharmD [address] [place] [address] Pharmacist Internal Medicine 08/03/22 Acosta Sinha FNP [address] [place] [address] Nurse Practitioner Family Medicine 01/17/23 Flip Wan MD [address] [place] [address] Pulmonary Disease 02/02/24 Dmitri Sequeira MD 100 [facility] 200 [place] [address] Nephrology 02/10/24 Stephane Pisano MD 11 [facility] 3rd [place] [address] General Surgery 02/10/24 Melvin Claros MD 596 [place] [address] Cardiology 04/16/24 Artur Aguilar MD [address] [place] [address] Endocrinology 05/31/24 NARAYAN LICEA Routing Equipment TenderNetworking Technology Instructor 01/06/23 02/06/24 Ghassan Fletcher Routing Equipment TenderNetworking Technology Instructor 02/07/24 documented as of this encounter
--- OUTSIDE RECORDS SUMMARY | 2024-06-20 15:39 | XMS_ITS | Encounter Summary ---
Author Organization [employer] Address [address] [facility] [address] 7t [place] [address] Care Team Providers Care Salesforce Consultant Name Role Phone Mirtha Lunsford MD Primary Care Provider + [phone] Victoria Radford PharmD Unavailable [phone] Acosta Sinha PHARMACY SCHEDULER Unavailable Unavailable Flip Wan MD Unavailable [phone] Dmitri Sequeira MD Unavailable [phone] Stephane Pisano MD Unavailable [phone] Melvin Claros MD Unavailable [phone] Artur Aguilar MD Unavailable [phone] Reason for Visit * Reason Comments Med Refill Encounter Details Date Type Department Care Team (Late st Contact Info) Description 05/08/2024 Refill [facility] [address] [place] [address] [phone] Mirtha Lunsford MD [address] [place], [place] [phone] Social History Tobacco Use Types Packs/Day Years [...] Description 07/18/2024 8:00 AM EDT Office Visit [facility] 230 [place] [address] Rebecca Capps documented as of this encounter [...] documented as of this encounter Care Teams Salesforce Consultant Relationship Specialty Start Date End Date Mirtha Lunsford MD [address] [place] [address] PCP - General Family Medicine 03/04/15 Victoria Radford, PharmD [address] [place] [address] Pharmacist Internal Medicine 08/03/22 Acosta Sinha FNP [address] [place] [address] Nurse Practitioner Family Medicine 01/17/23 Flip Wan MD 5 [place] [address] Pulmonary Disease 02/02/24 Dmitri Sequeira MD [address] [address] Nephrology 02/10/24 Stephane Pisano MD 11 [facility] 3rd [place] [address] General Surgery 02/10/24 Melvin Claros MD 596 [place] [address] Cardiology 04/16/24 Artur Aguilar MD 10 [facility] [address] [place] [address] Endocrinology 05/31/24 Ghassan Fletcher Acute CoordinatorRadiological Metallurgist 02/07/24 documented as of this encounter
--- OUTSIDE RECORDS SUMMARY | 2024-06-20 15:39 | XMS_ITS | Encounter Summary ---
Author Organization [email or web address] Address [address] [facility] [address] 7t [place] [address] Care Team Providers Care Relief Mate Name Role Phone Mirtha Lunsford MD Primary Care Provider + [phone] Victoria Radford PharmD Unavailable [phone] Acosta Sinha CNC SERVICE ENGINEER Unavailable Unavailable Flip Wan MD Unavailable [phone] Dmitri Sequeira MD Unavailable [phone] Stephane Pisano MD Unavailable [phone] Melvin Claros MD Unavailable [phone] Artur Aguilar MD Unavailable [phone] Reason for Visit * Reason Comments Med Refill Encounter Details Date Type Department Care Team (Late st Contact Info) Description 11/13/2022 Refill [facility] [address] [place] [address] [phone] Mirtha Lunsford MD 230 [place], [place] [phone] Essential hypertension (Primary Dx) Social History Tobacco [...] Description 07/18/2024 8:00 AM EDT Office Visit [facility] ADULT D[facility] 230 [place] [address] Rebecca Capps documented as of this encounter [...] documented as of this encounter Care Teams Relief Mate Relationship Specialty Start Date End Date Mirtha Lunsford MD [address] [place] [address] PCP - General Family Medicine 03/04/15 Victoria Radford, PharmD [address] [place] [address] Pharmacist Internal Medicine 08/03/22 Acosta Sinha FNP [address] [place] [address] Nurse Practitioner Family Medicine 01/17/23 Flip Wan MD 5 [place] [address] Pulmonary Disease 02/02/24 Dmitri Sequeira MD [address] [address] Nephrology 02/10/24 Stephane Pisano MD 11 [facility] 3rd [place] [address] General Surgery 02/10/24 Melvin Claros MD 596 [place] [address] Cardiology 04/16/24 Artur Aguilar MD [address] [place] [address] Endocrinology 05/31/24 NARAYAN LICEA Welfare DirectorSubscription Crew Leader 01/06/23 02/06/24 Ghassan Fletcher Welfare DirectorSubscription Crew Leader 02/07/24 documented as of this encounter
--- OUTSIDE RECORDS SUMMARY | 2024-06-20 15:39 | XMS_ITS | Encounter Summary ---
Author Organization [employer] Address [address] [facility] [facility] [address] [facility] [address] 7t [place] [address] Care Team Providers Care Die Stamper Name Role Phone Mirtha Lunsford MD Primary Care Provider +- [phone] Victoria Radford PharmD Unavailable [phone] Acosta Sinha ROUNDHOUSE SUPERVISOR Unavailable Unavailable Flip Wan MD Unavailable [phone] Dmitri Sequeira MD Unavailable [phone] Stephane Pisano MD Unavailable [phone] Melvin Claros MD Unavailable [phone] Artur Aguilar MD Unavailable [phone] Encounter Details Date Type Department Care Team (Latest Contact Info) Description 06/18/2024 Travel Social History Tobacco Use Types Packs/Day Years [...] Description 07/18/2024 8:00 AM EDT Office Visit [facility] ADULT DENTAL [address] [place] [address] Rebecca Capps documented as of this encounter [...] Noted Time PHQ-9 Depression Total Score: 0 06/19/19 25 9:06 AM EDT documented as of this encounter Care Teams Die Stamper Relationship Specialty Start Date End Date Mirtha Lunsford MD 230 [place] [address] PCP - General Family Medicine 03/04/15 Victoria Radford PharmD 230 [place] [address] Pharmacist Internal Medicine 08/03/22 Acosta Sinha FNP 230 [place] [address] Nurse Practitioner Family Medicine 01/17/23 Flip Wan MD 5 [place] [address] Pulmonary Disease 02/02/24 Dmitri Sequeira MD 100 [facility] 200 [place] [phone] Nephrology 02/10/24 Stephane Pisano MD 11 [facility] 3rd [place] [address] General Surgery 02/10/24 Melvin Claros MD 596 [place] [address] Cardiology 04/16/24 Artur Aguilar MD [address] [place] [address] Endocrinology 05/31/24 Ghassan Fletcher Self Pay SpecialistTheatre Arts Professor 02/07/24 documented as of this encounter
--- OUTSIDE RECORDS SUMMARY | 2024-06-20 15:39 | XMS_ITS | Encounter Summary ---
Author Organization [employer] Address [address] [facility] [address] 7t [place] [address] Care Team Providers Care Repairer Pump Name Role Phone Mirtha Lunsford MD Primary Care Provider + [phone] Victoria Radford PharmD Unavailable [phone] Acosta Sinha Unavailable Unavailable Flip Wan MD Unavailable [phone] Dmitri Sequeira MD Unavailable [phone] Stephane Pisano MD Unavailable [phone] Melvin Claros MD Unavailable [phone] Artur Aguilar MD Unavailable [phone] Reason for Visit * Reason Comments Med Refill Encounter Details Date Type Department Care Team (Late st Contact Info) Description 02/02/[address] [facility] 230 [place] [address] Acosta Sinha FNP Social History Tobacco Use [...] Description 07/18/2024 8:00 AM EDT Office Visit [facility] ADULT DENT[facility] 230 [place] [address] Rebecca Capps documented as of this encounter [...] documented as of this encounter Care Teams Repairer Pump Relationship Specialty Start Date End Date Mirtha Lunsford MD 230 [place] [address] PCP - General Family Medicine 03/04/15 Victoria Radford PharmD [address] [place] [address] Pharmacist Internal Medicine 08/03/22 Acosta Sinha FNP [address] [place] [address] Nurse Practitioner Family Medicine 01/17/23 Flip Wan MD 5 [place] [address] Pulmonary Disease 02/02/24 Dmitri Sequeira MD 100 [facility] 200 [place] [address] Nephrology 02/10/24 Stephane Pisano MD [address] 3rd [place] [address] General Surgery 02/10/24 Melvin Claros MD 596 [place] [address] Cardiology 04/16/24 Artur Aguilar MD [address] [place] [address] Endocrinology 05/31/24 NARAYAN LICEA Registered Nurse Cardiac TelemetrySocial Work Professor 01/06/23 02/06/24 Ghassan Fletcher Registered Nurse Cardiac TelemetrySocial Work Professor 02/07/24 documented as of this encounter
--- OUTSIDE RECORDS SUMMARY | 2024-06-20 15:40 | XMS_ITS | Encounter Summary ---
Author Organization [email or web address] Address [address] [facility] [address] 7t [place] [address] Care Team Providers Care Chief Customer Officer Name Role Phone Mirtha Lunsford MD Primary Care Provider +- [phone] Victoria Radford PharmD Unavailable Acosta Sinha DIVISION HUMAN RESOURCES MANAGER Unavailable Unavailable Flip Wan MD Unavailable [phone] Dmitri Sequeira MD Unavailable [phone] Stephane Pisano MD Unavailable [phone] Melvin Claros MD Unavailable [phone] Artur Aguilar MD Unavailable [phone] Reason for Visit * Reason Comments Med Refill Encounter Details Date Type Department Care Team (Late st Contact Info) Description 06/19/2024 Refill [facility] 230 [place], [place] [phone] Mirtha Lunsford MD 230 [place], [place] [phone] Sacroiliac joint dysfunction Social History Tobacco Use [...] Description 07/18/2024 8:00 AM EDT Office Visit [facility] ADULT DENTAL 230 [place] [address] Rebecca Capps documented as of this encounter Goals Goal Patient Goal Type Associated Problems Recent Progress Patient-Stated? Author Blood Pressure < 140/90 Blood Pressure 133/90( 025 9:04 AM EDT) No Piers-GambVictoria morales, PharmD Reduce tobacco use (cigarettes, smokeless, etc) Tobacco Use No Ana-Victoria Swanson PharmD documented as of this encounter Visit Diagnoses Diagnosis Sacroiliac joint dysfunction Nonallopathic lesion of sacral region, not elsewhere classified documented in this encounter Additional Health Concerns Assessment Noted Time PHQ-9 Depression Total Score: 0 06/19/19 25 9:06 AM EDT documented as of this encounter Care Teams Chief Customer Officer Relationship Specialty Start Date End Date Mirtha Lunsford MD [address] [place] [address] PCP - General Family Medicine 03/04/15 Victoria Radford PharmD [address] [place] [address] Pharmacist Internal Medicine 08/03/22 Acosta Sinha FNP [address] [place] [address] Nurse Practitioner Family Medicine 01/17/23 Flip Wan MD 5 [place] [address] Pulmonary Disease 02/02/24 Dmitri Sequeira MD [address] [address] Nephrology 02/10/24 Stephane Pisano MD 11 [facility] 3rd [place] [address] General Surgery 02/10/24 Melvin Claros MD 596 [place] [address] Cardiology 04/16/24 Artur Aguilar MD 10 [facility] [address] [place] [address] Endocrinology 05/31/24 Ghassan Fletcher Inspector Exhaust EmissionsMilled Rice Broker 02/07/24 documented as of this encounter
--- OUTSIDE RECORDS SUMMARY | 2024-06-20 15:40 | XMS_ITS | Encounter Summary ---
Author Organization [employer] [facility] Address [address] [facility] 7t [place] [address] Care Team Providers Care Python Developer Name Role Phone Mirtha Lunsford MD Primary Care Provider + [phone] Victoria Radford PharmD Unavailable [phone] Acosta Sinha SIGN LANGUAGE INTERPRETER Unavailable Unavailable Flip Wan MD Unavailable [phone] Dmitri Sequeira MD Unavailable [phone] Stephane Pisano MD Unavailable [phone] Melvin Claros MD Unavailable [phone] Artur Aguilar MD Unavailable [phone] Encounter Details Date Type Department Care Team (Latest Contact Info) Description 07/03/[address] [facility] Dental, Provider, DDS Social History [...] 07/18/2024 8:00 AM EDT Office Visit [facility] ADULT DENTAL 230 [place] [address] Rebecca Capps documented as of this encounter Visit Diagnoses Not on filedocumented in this encounter Care Teams Python Developer Relationship Specialty Start Date End Date Mirtha Lunsford MD 230 [place] [address] PCP - General Family Medicine 03/04/15 Victoria Radford PharmD 230 [place] [address] Pharmacist Internal Medicine 08/03/22 Acosta Sinha FNP 230 [place] [address] Nurse Practitioner Family Medicine 01/17/23 Flip Wan MD 5 [place] [address] Pulmonary Disease 02/02/24 Dmitri Sequeira MD 100 [facility] 200 [place] [address] Nephrology 02/10/24 Stephane Pisano MD [address] 3rd [place] [address] General Surgery 02/10/24 Melvin Claros MD 596 [place] [address] Cardiology 04/16/24 Artur Aguilar MD [address] [place] [address] Endocrinology 05/31/24 NARAYAN LICEA Rn Case MgrInstaller Soft Top 01/06/23 02/06/24 Ghassan Fletcher Rn Case MgrInstaller Soft Top 02/07/24 documented as of this encounter
--- OUTSIDE RECORDS SUMMARY | 2024-06-20 15:40 | XMS_ITS | Encounter Summary ---
Author Organization [employer] Address [address] [facility] 7t [place] [address] Care Team Providers Care Material Crew Supervisor Name Role Phone Mirtha Lunsford MD Primary Care Provider + [phone] Victoria Radford PharmD Unavailable Acosta Sinha BUILDING SUPPLIES SALESPERSON RETAIL Unavailable Unavailable Flip Wan MD Unavailable [phone] Dmitri Sequeira MD Unavailable [phone] Stephane Pisano MD Unavailable [phone] Melvin Claros MD Unavailable [phone] Artur Aguilar MD Unavailable [phone] Reason for Visit * Reason Comments Med Refill Encounter Details Date Type Department Care Team (Late st Contact Info) Description 04/03/2024 Refill [facility] 230 [place], [place] [phone] Mirtha Lunsford MD 230 [place] [address] Mild intermittent asthma without complication Social History [...] Description 07/18/2024 8:00 AM EDT Office Visit [facility] ADULT [facility] 230 [place] [address] Rebecca Cpaps documented as of this encounter Goals Goal [...] documented as of this encounter Care Teams Material Crew Supervisor Relationship Specialty Start Date End Date Mirtha Lunsford MD 230 [place] [address] PCP - General Family Medicine 03/04/15 Victoria Radford, PharmD [address] [place] [address] Pharmacist Internal Medicine 08/03/22 Acosta Sinha FNP [address] [place] [address] Nurse Practitioner Family Medicine 01/17/23 Flip Wan MD 5 [place] [address] Pulmonary Disease 02/02/24 Dmitri Sequeira MD 100 [facility] 200 [place] [address] Nephrology 02/10/24 Stephane Pisano MD 11 [facility] 3rd [place] [address] General Surgery 02/10/24 Melvin Claros MD 596 [place] [address] Cardiology 04/16/24 Artur Aguilar MD 10 [facility] [address] [place] [address] Endocrinology 05/31/24 Ghassan Fletcher Denial Resolution SpecialistNurse Ortho 02/07/24 documented as of this encounter
--- OUTSIDE RECORDS SUMMARY | 2024-06-20 15:40 | XMS_ITS | Encounter Summary ---
Author Organization [employer] Address 75 [facility] 7t [place] [address] Care Team Providers Care Industrial Mechanic Name Role Phone Mirtha Lunsford MD Primary Care Provider + [phone] Victoria Radford PharmD Unavailable Acosta Sinha OFFICE SERVICES ASSISTANT Unavailable Unavailable Flip Wan MD Unavailable [phone] Dmitri Sequeira MD Unavailable [phone] Stephane Pisano MD Unavailable [phone] Melvin Claros MD Unavailable [phone] Artur Aguilar MD Unavailable [phone] Reason for Visit * Reason Comments Med Refill Encounter Details Date Type Department Care Team (Late st Contact Info) Description 04/12/2024 Refill [facility] MEDICINE 230 [place], [place] [phone] Mirtha Lunsford MD 230 [place] [address] Moderate persistent asthma without complication Social History [...] Description 07/18/2024 8:00 AM EDT Office Visit [facility] ADULT DENTAL 230 [facility] [place] [address] Rebecca Capps documented as of this encounter [...] documented as of this encounter Care Teams Industrial Mechanic Relationship Specialty Start Date End Date Mirtha Lunsford MD 230 [place] [address] PCP - General Family Medicine 03/04/15 Victoria Radford, PharmD [address] [place] [address] Pharmacist Internal Medicine 08/03/22 Acosta Sinha FNP [address] [place] [address] Nurse Practitioner Family Medicine 01/17/23 Flip Wan MD 5 [place] [address] Pulmonary Disease 02/02/24 Dmitri Sequeira MD 100 [facility] 200 [place] [address] Nephrology 02/10/24 Stephane Pisano MD 11 [facility] 3rd [place] [address] General Surgery 02/10/24 Melvin Claros MD 596 [place] [address] Cardiology 04/16/24 Artur Aguilar MD 10 [facility] [address] [place] [address] Endocrinology 05/31/24 Ghassan Fletcher Semiconductor EngineerRehabilitation Aide/Scheduler 02/07/24 documented as of this encounter
--- OUTSIDE RECORDS SUMMARY | 2024-06-20 15:40 | XMS_ITS | Encounter Summary ---
Author Organization [employer] Address 75 [facility] [address] 7t [place] [address] Care Team Providers Care Teletypesetter Name Role Phone Mirtha Lunsford MD Primary Care Provider + [phone] Victoria Radford PharmD Unavailable Acosta Sinha EQUAL OPPORTUNITY SPECIALIST Unavailable Unavailable Flip Wan MD Unavailable [phone] Dmitri Sequeira MD Unavailable [phone] Stephane Pisano MD Unavailable [phone] Melvin Claros MD Unavailable [phone] Artur Aguilar MD Unavailable [phone] Reason for Visit * Reason Comments Med Refill Encounter Details Date Type Department Care Team (Late st Contact Info) Description 01/04/2024 Refill [facility] MEDICINE 230 [place], [place] [phone] Shayla Ferrer DO 230 [place], [place] [phone] Social History Tobacco Use Types Packs/Day Years [...] Description 07/18/2024 8:00 AM EDT Office Visit [facility] ADULT DENTAL 230 [place] [address] Rebecca Capps documented as of this encounter [...] documented as of this encounter Care Teams Teletypesetter Relationship Specialty Start Date End Date Mirtha Lunsford MD 230 [place] [address] PCP - General Family Medicine 03/04/15 Victoria Radford, PharmD 230 [place] [address] Pharmacist Internal Medicine 08/03/22 Acosta Sinha FNP 230 [place] [address] Nurse Practitioner Family Medicine 01/17/23 Flip Wan MD 5 [place] [address] Pulmonary Disease 02/02/24 Dmitri Sequeira MD [address] [address] Nephrology 02/10/24 Stephane Pisano MD 11 [facility] 3rd [place] [address] General Surgery 02/10/24 Melvin Claros MD 596 [place] [address] Cardiology 04/16/24 Artur Aguilar MD 10 [facility] [address] [place] [address] Endocrinology 05/31/24 NARAYAN LICEA WedgerUnit Control Worker 01/06/23 02/06/24 Ghassan Fletcher WedgerUnit Control Worker 02/07/24 documented as of this encounter
--- OUTSIDE RECORDS SUMMARY | 2024-06-20 15:40 | XMS_ITS | Encounter Summary ---
Author Organization [email or web address] Address [address] [facility] [address] 7t [place] [address] Care Team Providers Care Air Bag Curer Name Role Phone Mirtha Lunsford MD Primary Care Provider + [phone] Victoria Radford PharmD Unavailable Acosta Sinha Unavailable Unavailable Flip Wan MD Unavailable Dmitri Sequeira MD Unavailable [phone] Stephane Pisano MD Unavailable [phone] Melvin Claros MD Unavailable [phone] Artur Aguilar MD Unavailable [phone] Reason for Visit * Reason Comments Med Refill Encounter Details Date Type Department Care Team (Late st Contact Info) Description 12/29/2023 Refill [facility] MEDICINE 230 [place], [place] [phone] Anya Muller, ANP 230 [place] [address] Essential hypertension Social History Tobacco Use Types [...] Description 07/18/2024 8:00 AM EDT Office Visit [facility] ADULT DENTAL 230 [place] [address] Rebecca Capps documented as of this encounter [...] documented as of this encounter Care Teams Air Bag Curer Relationship Specialty Start Date End Date Mirtha Lunsford MD 230 [place] [address] PCP - General Family Medicine 03/04/15 Victoria Radford, PharmD 230 [place] [address] Pharmacist Internal Medicine 08/03/22 Acosta Sinha FNP 230 [place] [address] Nurse Practitioner Family Medicine 01/17/23 Flip Wan MD 5 [place] [address] Pulmonary Disease 02/02/24 Dmitri Sequeira MD [address] [address] Nephrology 02/10/24 Stephane Pisano MD 11 [facility] 3rd [place] [address] General Surgery 02/10/24 Melvin Claros MD 596 [place] [address] Cardiology 04/16/24 Artur Aguilar MD 10 [facility] [address] [place] [address] Endocrinology 05/31/24 NARAYAN LICEA Client Resolution SpecialistContinuum Of Care Manager 01/06/23 02/06/24 Ghassan Fletcher Client Resolution SpecialistContinuum Of Care Manager 02/07/24 documented as of this encounter
--- OUTSIDE RECORDS SUMMARY | 2024-06-20 15:40 | XMS_ITS | Encounter Summary ---
Author Organization [facility] Address 75 [facility] 7t [place] [address] Care Team Providers Care Rn Bsn Name Role Phone Mirtha Lunsford MD Primary Care Provider + [phone] Victoria Radford PharmD Unavailable [phone] Acosta Sinha DOBBY LOOMS PEGGER Unavailable Unavailable Flip Wan MD Unavailable [phone] Dmitri Sequeira MD Unavailable [phone] Stephane Pisano MD Unavailable [phone] Melvin Claros MD Unavailable [phone] Artur Aguilar MD Unavailable [phone] Encounter Details Date Type Department Care Team (Latest Contact Info) Description 07/25/2020 Abstract [facility] CONVERSIONS Dental, Provider, DDS Social History [...] Description 07/18/2024 8:00 AM EDT Office Visit [facility] ADULT DENTAL 230 [place] [address] Rebecca Capps documented as of this encounter Visit Diagnoses Not on filedocumented in this encounter Care Teams Rn Bsn Relationship Specialty Start Date End Date Mirtha Lunsford MD 230 [place] [address] PCP - General Family Medicine 03/04/15 Victoria Radford PharmD 230 [place] [address] Pharmacist Internal Medicine 08/03/22 Acosta Sinha FNP 230 [place] [address] Nurse Practitioner Family Medicine 01/17/23 Flip Wan MD 5 [place] [address] Pulmonary Disease 02/02/24 Dmitri Sequeira MD 100 [facility] 200 [place] [address] Nephrology 02/10/24 Stephane Pisano MD [address] 3rd [place] [address] General Surgery 02/10/24 Melvin Claros MD 596 [place] [address] Cardiology 04/16/24 Artur Aguilar MD [address] [place] [address] Endocrinology 05/31/24 NARAYAN LICEA Machine Ceramic CoaterValuer 01/06/23 02/06/24 Ghassan Fletcher Machine Ceramic CoaterValuer 02/07/24 documented as of this encounter
--- OUTSIDE RECORDS SUMMARY | 2024-06-20 15:40 | XMS_ITS | Encounter Summary ---
Author Organization [employer] Address [address] [facility] [address] 7t [place] [address] Care Team Providers Care Sign Manufacturer Name Role Phone Mirtha Lunsford MD Primary Care Provider + [phone] Victoria Radford PharmD Unavailable Acosta Sinha PEPPER PICKER Unavailable Unavailable Flip Wan MD Unavailable Dmitri Sequeira MD Unavailable [phone] Stephane Pisano MD Unavailable Melvin Claros MD Unavailable Artur Aguilar MD Unavailable [phone] Encounter Details Date Type Department Care Team (Late st Contact Info) Description 08/24/2023 Abstract [facility] MEDICINE 230 [place], [place] [phone] Mirtha Lunsford MD 230 [place], [place] [phone] Social History Tobacco Use Types Packs/Day Years [...] Description 07/18/2024 8:00 AM EDT Office Visit [facility] ADULT DENTAL 230 [place] [address] Rebecca Capps documented as of this encounter [...] documented as of this encounter Care Teams Sign Manufacturer Relationship Specialty Start Date End Date Mirtha Lunsford MD 230 [place] [address] PCP - General Family Medicine 03/04/15 Victoria Radford PharmD 230 [place] [address] Pharmacist Internal Medicine 08/03/22 Acosta Sinha FNP 230 [place] [address] Nurse Practitioner Family Medicine 01/17/23 Flip Wan MD [address] [place] [address] Pulmonary Disease 02/02/24 Dmitri Sequeira MD [address] [address] Nephrology 02/10/24 Stephane Pisano MD 11 [facility] 3rd [place] [address] General Surgery 02/10/24 Melvin Claros MD 596 [place] [address] Cardiology 04/16/24 Artur Aguilar MD [address] [place] [address] Endocrinology 05/31/24 NARAYAN LICEA Pole RiverCarpet Floor Layer Apprentice 01/06/23 02/06/24 Ghassan Fletcher Pole RiverCarpet Floor Layer Apprentice 02/07/24 documented as of this encounter
--- OUTSIDE RECORDS SUMMARY | 2024-06-20 15:40 | XMS_ITS | Encounter Summary ---
Author Organization [employer] Address [address] [facility] [address] 7t [place] [address] Care Team Providers Care Marine Chronometer Assembler Name Role Phone Mirtha Lunsford MD Primary Care Provider + [phone] Victoria Radford PharmD Unavailable [phone] Acosta Sinha SOLUTIONS MANAGER Unavailable Unavailable Flip Wan MD Unavailable [phone] Dmitri Sequeira MD Unavailable [phone] Stephane Pisano MD Unavailable [phone] Melvin Claros MD Unavailable [phone] Artur Aguilar MD Unavailable [phone] Encounter Details Date Type Department Care Team (Late st Contact Info) Description 05/14/2024 Orders Only [facility] MEDICINE 230 [place], [place] [phone] Mirtha Lunsford MD 230 [place], [place] [phone] Class 1 obesity due to excess calories [...] Description 07/18/2024 8:00 AM EDT Office Visit [facility] ADULT DENTAL 230 [place] [address] Rebecca Capps documented as of this encounter Goals Goal Patient Goal Type Associated Problems Recent Progress Patient-Stated? Author Blood Pressure < 140/90 Blood Pressure 133/90( 025 9:04 AM EDT) No Victoria Mayo PharmNaresh Reduce tobacco use [...] documented as of this encounter Care Teams Marine Chronometer Assembler Relationship Specialty Start Date End Date Mirtha Lunsford MD [address] [place] [address] PCP - General Family Medicine 03/04/15 Victoria Radford PharmD [address] [place] [address] Pharmacist Internal Medicine 08/03/22 Acosta Sinha FNP [address] [place] [address] Nurse Practitioner Family Medicine 01/17/23 Flip Wan MD 5 [place] [address] Pulmonary Disease 02/02/24 Dmitri Sequeira MD 100 [facility] 200 [place] [address] Nephrology 02/10/24 Stephane Pisano MD 11 [facility] 3rd [place] [address] General Surgery 02/10/24 Melvin Claros MD 596 [place] [address] Cardiology 04/16/24 Artur Aguilar MD [address] [address] Endocrinology 05/31/24 Ghassan Fletcher Last InserterAnalysis Tester 02/07/24 documented as of this encounter
--- OUTSIDE RECORDS SUMMARY | 2024-06-20 15:40 | XMS_ITS | Encounter Summary ---
Author Organization [employer] Address [address] [facility] [address] 7t [place] [address] Care Team Providers Care Refinery Operator Reforming Unit Name Role Phone Mirtha Lunsford MD Primary Care Provider + [phone] Victoria Radford PharmD Unavailable [phone] Acosta Sinha SLAUGHTERER RELIGIOUS RITUAL Unavailable Unavailable Flip Wan MD Unavailable [phone] Dmitri Sequeira MD Unavailable [phone] Stephane Pisano MD Unavailable [phone] Melvin Claros MD Unavailable [phone] Artur Aguilar MD Unavailable [phone] Reason for Visit * Reason Comments Med Refill Encounter Details Date Type Department Care Team (Late st Contact Info) Description 09/06/[address] [facility] MEDICINE 230 [place], [place] [phone] Mirtha Lunsford MD 230 [place] [address] Social History Tobacco Use Types Packs/Day Years [...] [facility] 230 [place] [address] Rebecca Capps documented as of this encounter [...] documented as of this encounter Care Teams Refinery Operator Reforming Unit Relationship Specialty Start Date End Date Mirtha Lunsford MD 230 [place] [address] PCP - General Family Medicine 03/04/15 Victoria Radford PharmD 230 [place] [address] Pharmacist Internal Medicine 08/03/22 Acosta Sinha FNP 230 [place] [address] Nurse Practitioner Family Medicine 01/17/23 Flip Wan MD 5 [place] [address] Pulmonary Disease 02/02/24 Dmitri Sequeira MD 100 [facility] 200 [place] [address] Nephrology 02/10/24 Stephane Pisano MD [address] 3rd [place] [address] General Surgery 02/10/24 Melvin Claros MD 596 [place] [address] Cardiology 04/16/24 Artur Aguilar MD [address] [place] [address] Endocrinology 05/31/24 NARAYAN LICEA Kitchen Bath DesignerSteam Fitter Supervisor Maintenance 01/06/23 02/06/24 Ghassan Fletcher Kitchen Bath DesignerSteam Fitter Supervisor Maintenance 02/07/24 documented as of this encounter
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
--- OUTSIDE RECORDS SUMMARY | 2024-06-20 15:40 | XMS_ITS | Clinical Summary ---
Author Organization [facility] Address [address] [place] [address] [place] [address] Phone Care Team Providers Care Commercial Pilot Name Role Phone Demetri Tavia Primary Care Provider [phone] Allergies Active Allergy Reactions Criticality Noted Date [...] plan. 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 Wan -continue Flovent -continue Singulair -continue albuterol prn Tubular adenoma 02/15/2022 11/18/2022 Overview (11/18/2022): Tubular adenoma on colonoscopy 03/[address] Pisano, referred 03/2021 -Missed appointment, encouraged to reschedule on 07/30/21. Was given phone number. Last Assessment & Plan: Tubular adenoma on colonoscopy 03/[address] iPsano, referred 03/2021 -Missed appointment, encouraged to reschedule [...] 10/24/2014, 06/25/2014, Additional history exists Insurance Medicaid [place] Medicaid [place] Care Teams Commercial Pilot Relationship Specialty Start Date End Date [facility] [address] [facility] [place] [address] PCP - General 04/29/22
--- OUTSIDE RECORDS SUMMARY | 2024-06-20 15:40 | XMS_ITS | Encounter Summary ---
Author Organization [employer] Address [address] [facility] 7[address] [place] [address] Care Team Providers Care Material Stockkeeper Yard Name Role Phone Mirtha Lunsford MD Primary Care Provider + [phone] Victoria Radford PharmD Unavailable [phone] Acosta Sinha SATELLITE INSTRUCTION FACILITATOR Unavailable Unavailable Flip Wan MD Unavailable [phone] Dmitri Sequeira MD Unavailable [phone] Stephane Pisano MD Unavailable [phone] Melvin Claros MD Unavailable [phone] Artur Aguilar MD Unavailable [phone] Reason for Referral * Consultation (Routine) - Closed Specialty Diagnoses / Procedures Referred By Ruthie reyes Referred To Contact Nutrition Diagnoses Class 1 obesity due to excess calories with serious comorbidity and body mass index (BMI) of 33.0 to 33.9 in adult Kalli Henderson MD [address] [place] [address] Phone: tel: fax: Referral ID Status Reason Start Date Expiration Date V isits Requested Visits Authorized [id number] Closed Consult and Treat 05/10/2024 05/10/2025 1 1 Encounter Details Date Type Department Care Team (Late st Contact Info) Description 05/10/2024 Orders Only [facility] [address] [place], [place] [phone] Kalli Henderson MD [address] [place] [address] Class 1 obesity due to excess calories [...] Description 07/18/2024 8:00 AM EDT Office Visit [facility] ADULT DENTAL [address] [place] [address] Rebecca Capps Scheduled Referrals Name Type Priority [...] as of this encounter Care Teams Material Stockkeeper Yard Relationship Specialty Start Date End Date Mirtha Lunsford MD [address] [place] [address] PCP - General Family Medicine 03/04/15 Piers-, Victoria, PharmD [address] [place] [address] Pharmacist Internal Medicine 08/03/22 Acosta Sinha FNP [address] [place] [address] Nurse Practitioner Family Medicine 01/17/23 Flip Wan MD [address] [place] [address] Pulmonary Disease 02/02/24 Dmitri Sequeira MD [address] [facility] [address] [place] [address] Nephrology 02/10/24 Stephane Pisano MD [address] 3rd [place] [address] General Surgery 02/10/24 Melvin Claros MD [address] [place] [address] Cardiology 04/16/24 Artur Aguilar MD [address] [place] [address] Endocrinology 05/31/24 Ghassan Fletcher General I FarmworkerVice President Of Recruiting 02/07/24 documented as of this encounter
--- OUTSIDE RECORDS SUMMARY | 2024-06-20 15:40 | XMS_ITS | Encounter Summary ---
Author Organization [facility] Address [address] [facility] [address] [place] [address] Phone Care Team Providers Care Vegetable Ii Farmworker Name Role Phone Tavia Mosquera Primary Care Provider [phone] Reason for Referral * Imaging (Routine) - Closed Specialty Diagnoses / Procedures Referred By Contac t Referred To Contact Diagnoses Right kidney absent Procedures Ultrasound renal limited Dmitri Sequeira MD Phone: tel: fax: Referral ID Status Reason Start Date Expiration Date Visits Re quested Visits Authorized [id number] Closed 09/22/2023 09/21/2024 1 1 Encounter Details Date Type Department Care Team (Latest Contact Info) Description 09/22/2023 Office Communication [facility] [address] [facility] [address] [place] [address] Dmitri Sequeira MD [address] [facility] [address] [place] [phone] Right kidney absent (Primary Dx) Social History [...] saw him--put on schedule 09/22/23 so I underwater hunter write a 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
--- OUTSIDE RECORDS SUMMARY | 2024-06-20 15:40 | XMS_ITS | Encounter Summary ---
Author Organization [employer] Address [address] 7[address] [place] [address] Care Team Providers Care Computer Systems Information Director Name Role Phone Mirtha Lunsford MD Primary Care Provider Victoria Radford PharmD Unavailable Acosta Sinha MOTORCYCLE POLICE Unavailable Unavailable Flip Wan MD Unavailable [phone] Dmitri Sequeira MD Unavailable [phone] Stephane Pisano MD Unavailable Melvin Claros MD Unavailable Artur Aguilar MD Unavailable [phone] Encounter Details Date Type Department Care Team (Late st Contact Info) Description 09/08/2022 Abstract [facility] MEDICINE [address] [place] [address] Mirtha Lunsford MD [address] [place], [place] [phone] Social History Tobacco Use Types Packs/Day Years [...] Description 07/18/2024 8:00 AM EDT Office Visit [facility] ADULT DENTAL [address] [place] [address] Rebecca Capps documented as of this encounter Goals Goal Patient Goal Type Associated Problems Recent Progress Patient-Stated? Author Blood Pressure < 140/90 Blood Pressure 133/90( 025 9:04 AM EDT) No PetesVictoria Frost, PharmD documented as of this encounter Visit Diagnoses Not on filedocumented in this encounter Additional Health Concerns Assessment Noted Time PHQ-9 Depression Total Score: 10 023 3:38 PM EDT documented as of this encounter Care Teams Computer Systems Information Director Relationship Specialty Start Date End Date Mirtha Lunsford MD [address] [place] [address] PCP - General Family Medicine 03/04/15 Victoria Radford, PharmD [address] [place] [address] Pharmacist Internal Medicine 08/03/22 Acosta Sinha FNP [address] [place] [address] Nurse Practitioner Family Medicine 01/17/23 Flip Wan MD [address] [place] [address] Pulmonary Disease 02/02/24 Dmitri Sequeira MD [address] [phone] Nephrology 02/10/24 Stephane Pisano MD [address] [facility] 3rd [place] [address] General Surgery 02/10/24 Melvin Claros MD [address] [place] [address] Cardiology 04/16/24 Artur Aguilar MD [address] [place] [address] Endocrinology 05/31/24 NARAYAN LICEA Railcar Brake OperatorWood Tank Builder 01/06/23 02/06/24 Ghassan Fletcher Railcar Brake OperatorWood Tank Builder 02/07/24 documented as of this encounter
== END 2024-06-20 14:21 | disposition home or self-care (01) ==
LOC: HO.NEURO 14:20
PROVIDERS: PCP Family Medicine; Visit Provider Physical Medicine & Rehabilitation
DX: R20.0 Anesthesia of skin (principal); R20.2 Paresthesia of skin; M79.643 Pain in unspecified hand; Z98.890 Other specified postprocedural states
CPT/HCPCS: 73130; 95911

== ENCOUNTER → 2024-06-20 14:23 | Outpatient (BNV) | payer MEDICAID, SELFPAY | PROVIDERS: PCP Family Medicine; Visit Provider Physical Medicine & Rehabilitation | DX: G56.02 Carpal tunnel syndrome, left upper limb (principal) | CPT/HCPCS: 95911 ==

== ENCOUNTER → 2024-06-20 14:36 | Outpatient (BNV) | payer MEDICAID, SELFPAY | PROVIDERS: PCP Family Medicine; Visit Provider Radiology Diagnostic Radiology | DX: M79.641 Pain in right hand (principal); M79.642 Pain in left hand | CPT/HCPCS: 73130 ==

== ENCOUNTER 2024-07-05 14:44 | Outpatient (AMB) | payer MEDICAID, SELFPAY ==
--- NOTE | 2024-07-05 14:46 | MHC.OFFVIS ---
Vital Signs 07/05/24 14:53 Height 5 ft 8 in Weight 214 lb 4.629 oz BMI 32.6 BP 132/72 Blood Pressure Location Rt brachial Position Sitting Pulse 72 Intake Visit Reasons: tubular adenoma Intake Note: Patient here to follow up tubular adenoma. Last colonoscopy 07-08-2023. Due for repeat colonoscopy. 2nd concern: c/o multiple lipomas thighs, back, arms. Patient c/o: lipomas getting bigger and painful. Vulcanizing Press Operator Required: No Accompanied by: Self / Same As Patient Allergies Iodinated Contrast Media Allergy (Severe, Verified 07/05/24 14:50) Unknown levofloxacin Allergy (Mild, Verified 07/05/24 14:50) Rash ibuprofen [From MOTRIN] Allergy (Unknown, Verified 07/05/24 14:50) KIDNEY ISSUES mushroom Adverse Reaction (Mild, Verified 07/05/24 14:50) VOMITING amlodipine Adverse Reaction (Unknown, Verified 07/05/24 14:50) Swelling Medication List - Last Reconciled 07/05/24 by Stephane Pisano MD acetaminophen (Tylenol) 650 mg (2 x 325 mg) PO Q6H PRN albuterol sulfate 90 mcg/actuation 2 puffs inhalation QID PRN albuterol sulfate 90 mcg/actuation 2 inhalations inhalation Q6H PRN albuterol sulfate 2.5 mg (3 mL) inhalation Q4-6H PRN amlodipine 5 mg See Protocol PO DAILY atorvastatin 40 mg PO QAM benzonatate 100 mg PO TID PRN carvedilol 3.125 mg PO BID cyclobenzaprine 10 mg PO BEDTIME PRN dexamethasone 1 mg PO ONCE escitalopram oxalate (Lexapro) 5 mg PO DAILY escitalopram oxalate 10 mg PO DAILY fluticasone propion-salmeterol 115-21 mcg/actuation (Advair HFA) 2 puffs inhalation Q12H 30 days fluticasone propionate 50 mcg/actuation 1 spray intranasal BID guaifenesin ER 600 mg PO BID hydroxyzine pamoate 50 mg PO DAILY PRN hydroxyzine pamoate 25 mg PO DAILY PRN ipratropium-albuterol 20-100 mcg/actuation (Combivent Respimat) 1 puff inhalation BID lisinopril 20 mg PO QAM loratadine 10 mg PO DAILY metoprolol succinate ER 12.5 mg PO DAILY montelukast 10 mg PO QPM nicotine 1 patch transdermal Q24H omalizumab (Xolair) 225 mg subcut Q2W 28 days wybnigfsktlpr-KG-wauuhhsifet 2.5-5-50 mg/5 mL (Robitussin Cough and Cold CF) 20 mL PO Q4H PRN pregabalin (Lyrica) 150 mg PO BID pregabalin (Lyrica) 150 mg PO DAILY sodium,potassium,mag sulfates 17.5-3.13-1.6 gram (Suprep Bowel Prep Kit) DILUTE; drink full amount early evening before AND next morning at least 2 hr before procedure; follow w 960 mL water PO terbinafine HCl 1% 1 appl topical BID HPI HPI tubular adenoma: Details: 54-year-old male here for follow-up for a history of a tubular adenoma. He had undergone a colonoscopy last Jun, 2023. He had multiple polyps removed then which were tubular adenomas on pathology. However there was note of a 1 cm polyp in the cecum what was relatively flat. I had recommended repeating the colonoscopy within 1 year because of this flat polyp in the cecum which was also a tubular adenoma. He denies GI complaints currently. He says he feels well overall. 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 Arthritis Surgical History History of rectal sphincterotomy History of hydrocelectomy History of colonoscopy History of left nephrectomy H/O neck surgery Previous back surgery Family History Mother Hypertension Asthma Father Medical history unknown Social History Household Members: None Housing: Apartment Do you presently have visiting nurse or other home services: No Alcohol intake: former Patient Tobacco Use Status: Current everyday Tobacco user Tobacco use type: Cigarette Cigarette Packs Per Day: 0 Cigarettes Per Day: 5 Years Smoked: 20 years e-Cigarette/Vaping Use: Former Use Second Hand Smoke Exposure: No service: No Current occupational status: unemployed 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 Review of Systems Const Denies chills and Denies fever(s) Card Denies chest pain, Denies dyspnea and Denies dyspnea on exertion Resp Denies cough, Denies dyspnea and Denies dyspnea on exertion GI Denies hematochezia and Denies change in bowel habits Denies hematuria and Denies difficulty urinating Musc Denies back pain and Denies limited range of motion Neuro Denies focal weakness and Denies convulsions Psych Denies depression and Denies mood swings Physical Exam Vital Signs: Last Vital Signs Pulse 72 07/05/24 14:53 BP 132/72 07/05/24 14:53 BMI result Body Mass Index 32.6 Const General: comfortable and no acute distress Orientation/consciousness: patient oriented x3 Neck Neck: Yes no lymphadenopathy Resp Auscultation: clear to auscultation bilaterally Cardio Rhythm: regular rhythm GI Palpation (GI): Soft to palpation, nontender and no guarding Neuro General: patient oriented x3 Assessment & Plan Assessment & Plan (1) History of adenomatous polyp of colon: Code(s): Z86.0101 - Personal history of adenomatous and serrated colon polyps Category: Medical Plan: He has had multiple tubular adenomas in the past. However, last year, he had 1 flat polyp, 1 cm in size in the cecum this was removed with multiple bites of the cold forceps. I had recommended repeating the colonoscopy within 1 year because of this flat polyp. I explained the technique of this procedure. I reviewed the risks including but not limited to bleeding and perforation, as well as the benefits and alternatives. He says he still understands and wants to proceed. He also says that he had lipomas that he wanted removed on different parts of his body. Currently, he is unable to feel these lipomas at all. I told him that when he follows up in the office, he can point this out to me and we can schedule excision for this. Coding Level of Care Code New Pt Level 3 (67152) Diagnoses History of adenomatous polyp of colon Z86.0101
[2024-07-05 14:53] VITALS: BP 132/72; PULSE 72; BMI 32.6
--- OUTSIDE RECORDS SUMMARY | 2024-07-05 15:31 | XMS_ITS | Clinical Summary ---
Author Organization [facility] Address [address] [facility] [address] [place] [address] Care Team Providers Care Belt Press Operator Name Role Phone Mirtha Lunsford MD Primary Care Provider [phone] Victoria Radford PharmD Unavailable Acosta Sinha BATTERY STACKER Unavailable Unavailable Flip Wan MD Unavailable [phone] Dmitri Sequeira MD Unavailable Stephane Pisano MD Unavailable Melvin Claros MD Unavailable Artur Aguilar MD Unavailable [phone] Allergies Active Allergy Reactions Criticality Noted [...] ONCE DAILY 45 g 1 025 Active lisinopril 20 MG tabletIndicatio ns:Essential [...] MUSCLE SPASMS 60 tablet 1 025 Active pregabalin (Lyrica) 150 MG capsuleIndicati ons:Chronic bilateral low back pain, unspecified whether sciatica present TAKE 1 CAPSULE BY MOUTH TWICE DAILY IN THE MORNING AND IN THE EVENING 60 capsule 025 Active metoprolol succinate XL (Toprol-XL) 25 MG 24 hr tabletIndicatio ns:Essential hypertension Take 1 tablet by mouth once daily. Do not crush or chew. 90 tablet 3 024 2024 Discontinued(R eorder (will not trigger notification to Pharmacy)) lisinopril 20 MG tabletIndicatio ns:Essential hypertension Take 1 tablet (20 mg) by mouth in the morning. 90 tablet 024 2024 Discontinued baclofen (Lioresal) 10 MG tabletIndicatio [...] pain 04/16/2024 Overview (04/16/2024): -Patient followed at [facility] with Dr. Agueda Claros DO. [...] and nutrition interventions discussed. -Patient followed at [facility] with Dr. Agueda [...] retention. I spoke with JULIETA Wood at [facility] pain clinic and they want the last CT scan faxed at [phone], they will fu with patient this week. Order lumbar MRI ro cord compromise Other specified health status 07/02/2022 Overview (06/18/2024): -next physical exam due after 06/18/25 -eye care facilitated by [facility] -dental home is [facility] -health care proxy filed 12/19/23 Assessment & Plan (06/18/2024 3:03 PM EDT): -next physical exam due after 06/18/25 -eye care facilitated by [facility] -dental home is [facility] -health care proxy filed 12/19/23 Assessment & Plan (12/19/2023 9:30 AM EDT): -next physical exam due after 05/29/2024 -eye care facilitated by [facility] -dental home is [facility] -health care proxy filed 12/19/23 Assessment & Plan (05/30/2023 10:13 AM EDT): -next physical exam due after 02/28/2023 -eye care facilitated by [facility] -dental home is [facility] -health care proxy given on 05/30/2023 Assessment [...] benign adenoma. 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 Repeat CT done [...] benign adenoma. 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 Repeat CT done [...] benign adenoma. 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 Repeat CT done 2019. Follow up Dr. Aguilar 1 year recommended. -referral placed 05/30/23 Assessment & Plan (01/24/2023 9:53 AM EST): Seen by Dr. Aguilar 05/08/2021 (prior was followed by Dr. Moseley) Hx incidental finding right adrenal nodule found in CT preformed in ER Feb 2018 c/w benign adenoma. 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 Repeat CT done [...] plan. 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 -last prednisone use 12/28/23 for exacerbation, given by pulmonary Assessment & Plan (06/18/2024 3:06 PM EDT): -automotive design layout drafter Dr. Wan seen 02/02/24 -Well controlled on current regimen of Xolair, Combivent, Advair, albuterol MDI. -last prednisone use 12/28/23 for exacerbation, given by pulmonary Assessment & Plan (02/23/2024 10:09 AM EST): -automotive design layout drafter Dr. Wan seen 02/02/24 -Well controlled on current regimen of Xolair, Combivent, Advair, albuterol MDI. -last prednisone use 12/28/23 for exacerbation, given by pulmonary Assessment & Plan (05/30/2023 12:31 PM EDT): -automotive design layout drafter Dr. Wan seen 12/2022 -Well controlled on current regimen of Xolair, Combivent, Advair, albuterol MDI. Continue current Assessment & Plan (01/24/2023 9:53 AM EST): -automotive design layout drafter Dr. Wan seen 12/2022 -Well controlled on current regimen of Xolair, Combivent, Advair, albuterol MDI. Continue current Assessment & Plan (12/20/2022 8:01 PM EDT): Few wheezing on lung exam,reports feeling well -offered NBZ tx here but refuse states will get at home ,and got pump tx before coming that may cause elevated HR -continue his regular inh and montelukast -continue care w automotive design layout drafter -planned apt for next month -advised to get booster for COVID 19 at vaccine clinic, pt s/p p20 and flu vaccine already Assessment & Plan (11/01/2022 9:02 AM EDT): -automotive design layout drafter Dr. Wan -continue Flovent -continue Singulair -continue albuterol prn Assessment & Plan (06/28/2022 10:09 AM EDT): Normal lung exam. advised to call Dr. Wan, his automotive design layout drafter, for kristan't. continue Flovent, Singulair, may use [...] Essential hypertension 08/19/2020 Overview (06/18/2024): -followed by [facility] -echo 03/31/23 EF 60-65% no changes compared to02/2017 -Blood pressure is slightly above goal, recommended monitoring at home. -Continue lifestyle modifications -Continue current medications -cardiology note from 04/12/23, no changes, follow up 6 months Assessment & Plan (06/18/2024 3:06 PM EDT): -followed by [facility] -echo 03/31/23 EF 60-65% no changes compared to02/2017 -Blood pressure is slightly above goal, recommended monitoring at home. -Continue lifestyle modifications -Continue current medications -cardiology note from 04/12/23, no changes, follow up 6 months Assessment & Plan (11/03/2023 10:12 AM EDT): -followed by [facility] -echo 03/31/23 EF 60-65% no changes compared to02/2017 -Blood pressure is at goal -Continue lifestyle modifications -Continue current medications -cardiology note from 04/12/23, no changes, follow up 6 months Assessment & Plan (05/30/2023 12:31 PM EDT): -followed by [facility] -echo 03/31/23 EF 60-65% no changes compared [...] -atorvastatin increased from 40mg to 80mg by CD 08/2023 -continue lifestyle modifications Assessment & Plan [...] as pharmacomtherapy, [facility] smoking cessation group, and [facility] pharmacy smoking cessation clinic -14mg and 7mg patches trialed 11/01/2022 Discussed USPSTF recommends annual lung cancer screening with low dose CT in people who meet the following criteria: -ages 50 to 80 years. -have a 20 pack-year smoking history. -currently smoke cigarettes or quit within the past 15 years. -LDCT: referral on 05/30/2023 to pharmacy with [facility]: patient seen in CDTM 10/31/23 and reports smoking 4-5cigs/day and denies using NRT, states he will continue efforts without NRT. Ordered LDCT 06/18/24. Assessment & Plan (06/18/2024 3:02 PM EDT): -Cigg/day: 5 -Age started: 23 -Total years smokin -Pack year history: 15 packs Encouraged smoking cessation resources such as pharmacomtherapy, [facility] smoking cessation group, and [facility] pharmacy smoking cessation clinic -14mg and 7mg patches trialed 11/01/2022 Discussed USPSTF recommends annual lung cancer screening with low dose CT in people who meet the following criteria: -ages 50 to 80 years. -have a 20 pack-year smoking history. -currently smoke cigarettes or quit within the past 15 years. -LDCT: referral on 05/30/2023 to pharmacy with [facility]: patient seen in CDTM 10/31/23 and reports smoking 4-5cigs/day and denies using NRT, states he will continue efforts without NRT. Ordered LDCT 06/18/24. Assessment & Plan (05/30/2023 10:18 AM EDT): -Cigg/day: 5 -Age started: 23 -Total years smokin -Pack year history: 15 packs Encouraged smoking cessation resources such as pharmacomtherapy, [facility] smoking cessation group, and [facility] pharmacy smoking cessation clinic -14mg [...] diet and exercise,discussed healthy life style -discussed grid maker referral -referred today Acute dehydration 09/23/2022 10/27/2022 [...] is for one week only and not computer terminal operator. Acute idiopathic gout involv ing toe of [...] arthritis 08/19/2020 023 Nicotine dependence 08/19/2020 07/03/19 23 Mild intermittent asthma 11/22/2016 Episodic opioid dependence 03/09/2012 0 07/02/2022 Encounters Date Type Department Care Team Description 07/03/2024 Refill [facility] WALKIN [address] [address] Mirtha Lunsford MD Chronic bilateral low back pain, unspecified whether sciatica present 06/21/[address] [address] Mirtha Lunsford MD Lung screening referral 06/20/2024 Orders Only [facility] External Provider, [facility] 06/19/2024 [facility] [address] [address] Mirtha Lunsford MD Sacroiliac joint dysfunction 06/18/2024 9:15 AM EDT Office Visit [address] [address] Mirtha Lunsford MD Lipoma, unspecified site (Primary [...] specified health status 06/18/2024 Travel 06/14/[address] [address] Mirtha Lunsford MD Chartprep 06/12/2024 Orders Only GENERIC EXTERNAL DATA DEPARTMENT Provider, Generic External Data 06/08/2024 Orders Only [address] [address] Mirtha Lunsford MD Essential hypertension 06/07/[address] [address] Victoria Radford, PharmD Essential hypertension 06/06/2024 Patient Outreach [address] [address] Mirtha Lunsford MD Pre-visit Planning (SDOH screening negative and Tobacco screening positive) 06/04/2024 Refill [facility] WALK-IN CENTER [address] [place] [address] Mirtha Lunsford MD Chronic bilateral low back pain, unspecified whether sciatica present 05/31/2024 Refill [facility] MEDICINE [address] [place] [address] Mirtha Lunsford MD Rash 05/18/2024 Refill [facility] WALK-IN CENTER [address] [place] [address] Kwame Tariq MD Moderate persistent asthma without complication 05/16/2024 Telephone [facility] MEDICINE [address] [place] [phone] NUTRITION APPT REQUEST 05/14/2024 Orders Only [facility] MEDICINE [address] [place] [address] Mirtha Lunsford MD Class 1 obesity due to excess calories with serious comorbidity and body mass index (BMI) of 33.0 to 33.9 in adult (Primary Dx) 05/11/2024 10:30 AM EDT Office Visit [address] [address] Kulwinder Álvarez MD Callus (Primary Dx); Seborrheic keratosis; Viral wart on finger 05/11/2024 Travel 05/10/2024 Orders Only [facility] MEDICINE [address] [place] [address] Kalli Henderson MD Class 1 obesity due to excess calories with serious comorbidity and body mass index (BMI) of 33.0 to 33.9 in adult (Primary Dx) 05/09/2024 Telephone [facility] MEDICINE [address] [place] [address] Mirtha Lunsford MD 05/08/2024 Refill [facility] WALK[facility]IN [facility]ENTER [address] [place] [phone] Mirtha Lunsford MD 05/04/2024 Population Health Risk Score [facility] () Department [address] [place] [phone] Provider, Population Health Generic 05/02/2024 Refill [facility] WALK-IN CENTER [address] [place] [address] Mirtha Lunsford MD Chronic bilateral low back pain, unspecified whether sciatica present 04/26/2024 Refill [facility] MEDICINE [address] [place] [address] Mirtha Lunsford MD Sacroiliac joint dysfunction 04/17/2024 3:00 PM EST Office Visit [facility] WALK[facility]IN C[facility] [address] [place] [address] Kwame Tariq MD Flu-like symptoms (Primary Dx); Moderate persistent asthma without complication 04/16/2024 Refill [facility] WALK-IN CENTER [address] [place] [address] Anibal Lenz MD Sacroiliac joint dysfunction 04/12/2024 Refill [facility] MEDICINE [address] [place] [address] Mirtha Lunsford MD Moderate persistent asthma without complication from Last 3 Months Immunizations Immunization Administration Dates Next Due Hep A, Adult [...] [facility] [address] [place] [address] Rebecca Capps Health Maintenance Due Date Last [...] 024, 07/25/2020, 05/05/2015 Lipid Panel 08/25/2028 08/26/2023, 0409/2023, 03/05/2022 RSV Patients and Patients Aged 60 [...] patient's age to complete this topic Meningococcal B Vaccine Aged Out No l onger eligible based on patient's age to complete [...] Procedure Name Priority Date/Time Associated Diagnosis Comments XR HAND 3+ VIEWS BILATERAL Routine 06/23/2024 6:47 AM EDT DEXAMETHASONE Routine 06/12/2024 8:24 AM EDT CORTISOL RANDOM Routine 06/12/2024 8:24 AM EDT [...] Recently Relevant to Health Maintenance Results * XR Hand 3+Views Bilateral (06/23/2024 6:47 AM EDT) Anatomical Region Laterality Modality Upper Extremities, Hand Bilateral Radiogra phic Imaging 06/23/2024 6:47 AM EDT Narrative 06/23/2024 6:48 AM EDT ? [facility] ?[address] ?[place] [address] ?XRay Report ? Signed ? Patient: Samson Mauri,Yuri ? MR#: [id number] ? : 1970 ?Acct:[id number] ? Age/Sex: 54 / M ?ADM Date: 04/30/25 ? Loc: HO.NEURO ? Attending Dr: Edwige Varela MD ? Ordering Physician: Edwige Rodriguez ?? Date of Service: 06/20/24 ?? Procedure(s): XR Hand Bilat min 3v ?? Accession Number(s): [id number] ? cc: Mirtha Lunsford MD; Edwige Rodriguez ? CLINICAL HISTORY: M79.643 - Pain in unspecified hand ? 3 views of the right hand, 3 views of the left hand ? Comparison: None ? Findings: ?? No fractures or dislocations. ?? No significant arthritic change. ?? No erosions. No radiopaque foreign body. ?? Soft tissues are unremarkable. ? IMPRESSION: ?? 1. No acute findings ? This document has been electronically signed by: Kam Avina MD on ?? 06/23/2024 06:47:18 ? Dictated By: ?Kam Avina MD ? Signed By: ?<Electronically signed by Kam Avina MD in OV> ?06/23/24 0648 ? DD/ 6 ? TD/TT: 06/23/24646 ? Tobacco Curer: ? Procedure Note Analiater, Image - 06/23/2024 [place] [address] XRay Report Signed Patient: Yuri Stokes MR#: [id number] : 1970Acct:[id number] Age/Sex: 54 / MADM Date: 06/20/24 Loc: HO.NEURO Attending Dr: Edwige Varela MD Ordering Physician: Edwige Rodriguez Date of Service: 06/20/24 Procedure(s): XR Hand Bilat min 3v Accession Number(s): [id number] cc: Mirtha Lunsford MD; Edwige Rodriguez CLINICAL HISTORY: M79.643 - Pain in unspecified hand 3 views of the right hand, 3 views of the left hand Comparison: None Findings: No fractures or dislocations. No significant arthritic change. No erosions. No radiopaque foreign body. Soft tissues are unremarkable. IMPRESSION: 1. No acute findings This document has been electronically signed by: Kam Avina MD on 06/23/2024 06:47:18 Dictated By: Kam Avina MD Signed By: <Electronically signed by Kam Avina MD in OV> 06/23/24647 DD/ 6 TD/TT: 06/23/24646 Tobacco Curer: [facility] External Provider IMG XR PROCEDURES Edited Result - Final * Dexamethasone (06/12/2024 8:24 AM EDT) Dexamethasone 583 ng/dL [facility] Comment:Reference Ranges for Dexamethasone:Baseline: Less than 20 ng/dL1 mg dexamethasone overnight: 180-550 ng/dL (8:00-10:00 AM)This test was developed and its analytical performancecharacteristics have been determined by [employer].It has not been cleared or approved by the FDA. This assayhas been validated pursuant to the CLIA regulations and isused for clinical purposes.THIS TEST WAS PERFORMED AT:[employer] [id number] [facility] [place] [address]VYAVPOREN FRANKLIN MD,PHD,CHAD 06/12/2024 8:24 AM EDT 06/12/2024 8:24 AM EDT Generic External Data Provider LAB BLOOD ORDERAB LES Final Result Performing Organization Address [facility] de Phone Number [facility] [address] [place] [phone] * Cortisol Random (06/12/2024 8:24 AM EDT) Pathologist [facility] Cortisol Random 1.2 ug/dL [facility] Comment:Reference Range*: Be fore 10 am 6.2-19.4 ug/dL After 5 pm 2.3-11.9 ug/dL*Please interpret above results accordingly.This test was performed using the Escobedo chemiluminescentmethod. Values obtained from different assay methods cannotbe used interchangeably.Patients receiving fludrocortisone, prednisolone orprednisone may show artificially elevated cortisol valuesdue to cross-reactivity. 06/12/2024 8:24 AM EDT 06/12/2024 8:24 AM EDT Generic External Data Provider LAB BLOOD ORDERAB LES Final Result Performing Organization Address [facility] Co de Phone Number [facility] [address] [place] [phone] * POCT Rapid Influenza B ESCOBEDO ID NOW (04/17/2024 3:22 PM EST) [facility] Influenza B Negative Negative, Indeterminate [facility] Swab 04/17/2024 3:22 PM EST us Kwame Tariq MD POINT OF CARE TEST ENTER/EDIT OR DERABLES Final Result Performing Organization Address [facility] Phone Number [facility] [address] [place] [phone] * (ABNORMAL) POCT Rapid Influenza A ESCOBEDO ID NOW (04/17/2024 3:22 PM EST) [facility] Influenza A Positive( A) Negative, Indeterminate [facility] Swab 04/17/2024 3:22 PM EST us Kwame Tariq MD POINT OF CARE TEST ENTER/EDIT OR DERABLES Final Result Performing Organization Address [facility] de Phone Number [facility] [address] [place] [phone] * POCT Rapid Covid-19 BinaxNOW (04/17/2024 3:22 PM EST) [facility] Rapid COVID Ag Negative [facility] Swab 04/17/2024 3:22 PM EST Kwame Tariq MD POINT OF CARE TEST ENTER/EDIT OR DERABLES Final Result Performing Organization Address [facility] Phone Number [facility] [address] [place] [phone] * Hepatitis C Antibody with Reflex to HCV, RNA, Quantitative, Real-Time PCR (02/28/2024 9:26 AM EST) [facility] Hepatitis C Antibody Nonreactive Nonreactive [facility] Comment:Antibodies to HCV no t detected; does not exclude early acuteHCV infection. Blood Venous blood specimen / Unknown 02/28/2024 9:26 AM EST 02/28/2024 11:15 AM EST Mirtha Lunsford MD LAB BLOOD ORDERABLES Final Result Performing Organization Address [facility]/ZIP Co de Phone Number [facility] [address] [place] [phone] * HIV-1/2 Antigen and Antibodies, Fourth Generation, with Reflexes (02/28/2024 9:26 AM EST) HIV AB/AG Nonreactive Nonreactive [facility] Comment:HIV-1 p24 Ag and/or HIV-1/HIV-2 Ab not detected.A test result that is nonreactive does not exclude thepossibility of exposure to or infection with HIV-1 and/orHIV-2. Nonreactive results in this assay for individualswith prior exposure to HIV-1 and/or HIV-2 may be due toantigen and antibody levels that are below the limit ofdetection of this assay.The [employer] HIV Ag/Ab Combo assay result andsupplemental assay results should be interpreted inconjunction with the patient's clinical presentation,history and other laboratory results. If the results areinconsistent with clinical evidence, additional testing issuggested to confirm the result. Blood Venous blood specimen / Unknown 02/28/2024 9:26 AM EST 02/28/2024 11:15 AM EST Mirtha Lunsofrd MD LAB BLOOD ORDERABLES Final Result Performing Organization Address City/[facility]/ZIP Co de Phone Number [facility] [address] [place] [phone] * Lipid Panel, Standard (08/26/2023 9:11 AM EDT) Triglycerides 78 <150 mg/dL [facility] Comment:Desirable Triglyceri de: less than 150 mg/dLBorderline High Triglyceride 150-199 mg/dLHigh Triglyceride: 200-499 mg/dLVery High Triglyceride: greater than or equal to 5OO mg/dL Cholesterol 183 <200 mg/dL [facility] Comment:Desirable Cholestero l: less than 200 mg/dLBorderline High Cholesterol: 200-239 mg/dLHigh Cholesterol: greater than 239 mg/dL LDL Cholesterol Calculated 90 <100 mg/dL [facility] Comment:Desirable LDL: less than 100 mg/dLNear Optimal/Above Optimal LDL: 110- 129 mg/dLBorderline High LDL: 130-159 mg/dLHigh LDL: 160-189 mg/dLVery High LDL: greater than or equal to 190 mg/dL HDL Cholesterol 78 >40 mg/dL [facility] Comment:Desirable HDL: great er than 40 mg/dL Note: This HDL assay may give artificially low results in patients with liver disease. 08/26/2023 9:11 AM EDT 08/26/2023 11:07 AM EDT Mirtha Lunsford MD LAB BLOOD ORDERABLES Final Result Performing Organization Address City/State/[facility] Co de Phone Number [facility] [address] [place] [address] [phone] * (ABNORMAL) Colonoscopy (07/08/2023) Colonoscopy Abnormal( A) Normal Comment:Multiple polyps with Dr. Pisano, repeat 1 year Historical Provider HEALTH MAINTENANCE Edited Result - Final from Last 3 Months or Most Recently Relevant to Health Maintenance Insurance [employer] C3 [facility] MEDICAID STAND ADULT Advance Directives Documents on File Type Date Recorded Patient Stock Taker Expl anation Advance Directives and Living Will 12/19/2023 Health Care Proxy 12/19/23 Care Teams Belt Press Operator Relationship Specialty Start Date End Date Jonn, MD Mirtha [address] [place] [phone] PCP - General Family Medicine 03/04/15 Victoria Radford, Duy [address] [place] [phone] Pharmacist Internal Medicine 08/03/22 Acosta Sinha FNP [address] [place] [address] Nurse Practitioner Family Medicine 01/17/23 Flip Wan MD [address] [place] [address] Pulmonary Disease 02/02/24 Dmitri Sequeira MD [address] [facility] [address] [place] [phone] Nephrology 02/10/24 Stephane Pisano MD [address] [facility] 3rd [place] [address] General Surgery 02/10/24 Melvin Claros MD [address] [place] [address] Cardiology 04/16/24 Artur Aguilar MD [address] [place] [address] Endocrinology 05/31/24 Ghassan [employer] Treatment Plant OperatorSoil Conservation Aide 02/07/24
--- OUTSIDE RECORDS SUMMARY | 2024-07-05 15:31 | XMS_ITS | Encounter Summary ---
Author Organization [employer] Address 75 [facility] 7t [place] [address] Care Team Providers Care Timber Feller Name Role Phone Mirtha Lunsford MD Primary Care Provider + [phone] Victoria Radford PharmD Unavailable Acosta Sinha SOLAR APPLICATIONS DEVELOPMENT ENGINEER Unavailable Unavailable Flip Wan MD Unavailable Dmitri Sequeira MD Unavailable +[phone] Stephane Pisano MD Unavailable Melvin Claros MD Unavailable +[phone] Artur Aguilar MD Unavailable [phone] Reason for Visit * Reason Onset Date Comments Other 11/23/2022 Encounter Details Date Type Department Care Team (Late st Contact Info) Description 11/23/2022 Telephone [facility] MEDICINE [address] [place] [address] [phone] Mirtha Lunsford MD [address] [place], [place] [phone] Other Social History Tobacco Use Types Packs/Day [...] helping him. Any questions, contact nidia at [phone] documented in this encounter Plan of Treatment Upcoming Encounters Date Type Department Care Team (Late st Contact Info) Description 07/18/2024 8:00 AM EDT Office Visit [facility] ADULT DENTAL 230 [place] [address] Rebecca Capps documented as of this encounter [...] documented as of this encounter Care Teams Timber Feller Relationship Specialty Start Date End Date Mirtha Lunsford MD [address] [place] [address] PCP - General Family Medicine 03/04/15 Victoria Radford, PharmD [address] [place] [address] Pharmacist Internal Medicine 08/03/22 Acosta Sinha FNP [address] [place], [place] Nurse Practitioner Family Medicine 01/17/23 Flip Wan MD [address] [place] [address] Pulmonary Disease 02/02/24 Dmitri Sequeira MD [address] [place] [address] Nephrology 02/10/24 Stephane Pisano MD [address] 3rd [place] [address] General Surgery 02/10/24 Melvin Claros MD [address] [place] [address] Cardiology 04/16/24 Artur Aguilar MD [address] [place] [address] Endocrinology 05/31/24 NARAYAN LICEA Meat PumperAutomobile Technician 01/06/23 02/06/24 Ghassan Fletcher Meat PumperAutomobile Technician 02/07/24 documented as of this encounter
--- OUTSIDE RECORDS SUMMARY | 2024-07-05 15:31 | XMS_ITS | Encounter Summary ---
Author Organization [employer] Address 75 [facility] 7t [place] [address] Care Team Providers Care Marketing Business Analyst Name Role Phone Mirtha Lunsford MD Primary Care Provider + [phone] Victoria Radford PharmD Unavailable +[phone] Acosta Sinha SONOSCOPE OPERATOR Unavailable Unavailable Flip Wan MD Unavailable [phone] Dmitri Sequeira MD Unavailable [phone] Stephane Pisano MD Unavailable [phone] Melvin Claros MD Unavailable [phone] Artur Aguilar MD Unavailable [phone] Reason for Referral * Consultation (Routine) - Closed Specialty Diagnoses / Procedures Referred By Ruthie eryes Referred To Contact Nutrition Diagnoses Class 1 obesity due to excess calories with serious comorbidity and body mass index (BMI) of 33.0 to 33.9 in adult Kalli Henderson MD 230 [place] [address] Phone: tel: fax: Referral ID Status Reason Start Date Expiration Date V isits Requested Visits Authorized [id number] Closed Consult and Treat 05/10/2024 05/10/2025 1 1 Encounter Details Date Type Department Care Team (Late st Contact Info) Description 05/10/2024 Orders Only [facility] MEDICINE 230 [place], [place] [phone] Kalli Henderson MD 230 [place] [address] Class 1 obesity due to excess calories [...] Description 07/18/2024 8:00 AM EDT Office Visit [facility] ADULT DENTAL 230 [place] [address] Rebecca Capps Scheduled Referrals Name Type Priority [...] documented as of this encounter Care Teams Marketing Business Analyst Relationship Specialty Start Date End Date Mirtha Lunsford MD [address] [place] [address] PCP - General Family Medicine 03/04/15 Piers-, Victoria, PharmD [address] [place] [address] Pharmacist Internal Medicine 08/03/22 Acosta Sinha FNP [address] [place] [address] Nurse Practitioner Family Medicine 01/17/23 Flip Wan MD [address] [place] [address] Pulmonary Disease 02/02/24 Dmitri Sequeira MD 100 [facility] [address] [place] [address] Nephrology 02/10/24 Stephane Pisano MD [address] 3rd [place] [address] General Surgery 02/10/24 Melvin Claros MD 596 [place] [address] Cardiology 04/16/24 Artur Aguilar MD [address] [place] [address] Endocrinology 05/31/24 Ghassan Fletcher Test Case DeveloperRn Flight 02/07/24 documented as of this encounter
--- OUTSIDE RECORDS SUMMARY | 2024-07-05 15:31 | XMS_ITS | Encounter Summary ---
Author Organization [employer] Address [address] [facility] [address] 7t [place] [address] Care Team Providers Care Paper Reel Operator Name Role Phone Mirtha Lunsford MD Primary Care Provider + [phone] Victoria Radford PharmD Unavailable +[phone] Acosta Sinha DATA DEVELOPER Unavailable Unavailable Flip Wan MD Unavailable [phone] Dmitri Sequeira MD Unavailable [phone] Stephane Pisano MD Unavailable [phone] Melvin Claros MD Unavailable [phone] Artur Aguilar MD Unavailable [phone] Encounter Details Date Type Department Care Team (Late st Contact Info) Description 05/14/2024 Orders Only [facility] MEDICINE 230 [place], [place] [phone] Mirtha Lunsford MD 230 [place], [place] [phone] Class 1 obesity due to excess calories [...] Description 07/18/2024 8:00 AM EDT Office Visit [facility] ADULT DENTAL 230 [place] [address] Rebecca Capps documented as of this encounter [...] documented as of this encounter Care Teams Paper Reel Operator Relationship Specialty Start Date End Date Mirtha Lunsford MD [address] [place] [address] PCP - General Family Medicine 03/04/15 Victoria Radford PharmD [address] [place] [address] Pharmacist Internal Medicine 08/03/22 Acosta Sinha FNP [address] [place] [address] Nurse Practitioner Family Medicine 01/17/23 Flip Wan MD 5 [place] [address] Pulmonary Disease 02/02/24 Dmitri Sequeira MD [address] [address] Nephrology 02/10/24 Stephane Pisano MD 11 [facility] 3rd [place] [address] General Surgery 02/10/24 Melvin Claros MD 596 [place] [address] Cardiology 04/16/24 Artur Aguilar MD 10 [facility] [address] [place] [address] Endocrinology 05/31/24 Ghassan Fletcher Chick Room SupervisorProduction Aide 02/07/24 documented as of this encounter
--- OUTSIDE RECORDS SUMMARY | 2024-07-05 15:31 | XMS_ITS | Encounter Summary ---
Author Organization [employer] Address 75 [facility] 7t [place] [address] Care Team Providers Care Respite Coordinator Name Role Phone Mirtha Lunsford MD Primary Care Provider + [phone] Victoria Radford PharmD Unavailable +[phone] Acosta Sinha Unavailable Unavailable Flip Wan MD Unavailable [phone] Dmitri Sequeira MD Unavailable [phone] Stephane Pisano MD Unavailable [phone] Melvin Claros MD Unavailable [phone] Artur Aguilar MD Unavailable [phone] Reason for Visit * Reason Comments Med Refill Encounter Details Date Type Department Care Team (Late st Contact Info) Description 02/02/2023 Refill [facility] MEDICINE 230 [place] [address] Acosta Sinha FNP Social History Tobacco Use [...] Description 07/18/2024 8:00 AM EDT Office Visit [facility] ADULT DENTAL 230 [place] [address] Rebecca Capps documented as of this encounter [...] documented as of this encounter Care Teams Respite Coordinator Relationship Specialty Start Date End Date Mirtha Lunsford MD 230 [place] [address] PCP - General Family Medicine 03/04/15 Victoria Radford PharmD 230 [place] [address] Pharmacist Internal Medicine 08/03/22 Acosta Sinha FNP 230 [place] [address] Nurse Practitioner Family Medicine 01/17/23 Flip Wan MD 5 [place] [address] Pulmonary Disease 02/02/24 Dmitri Sequeira MD 100 [facility] [address] [place] [address] Nephrology 02/10/24 Stephane Pisano MD [address] 3rd [place] [address] General Surgery 02/10/24 Melvin Claros MD 596 [place] [address] Cardiology 04/16/24 Artur Aguilar MD [address] [place] [address] Endocrinology 05/31/24 NARAYAN LICEA Administrative Sales AssistantAddressing Machine Operator 01/06/23 02/06/24 Ghassan Fletcher Administrative Sales AssistantAddressing Machine Operator 02/07/24 documented as of this encounter
--- OUTSIDE RECORDS SUMMARY | 2024-07-05 15:31 | XMS_ITS | Encounter Summary ---
Author Organization [employer] Address 75 [facility] 7t [place] [address] Care Team Providers Care Assistant Foreman Name Role Phone Mirtha Lunsford MD Primary Care Provider + [phone] Victoria Radford PharmD Unavailable [phone] Acosta Sinha ENERGY MANAGEMENT SPECIALIST Unavailable Unavailable Flip Wan MD Unavailable [phone] Dmitri Sequeira MD Unavailable [phone] Stephane Pisano MD Unavailable Melvin Claros MD Unavailable [phone] Artur Aguilar MD Unavailable [phone] Encounter Details Date Type Department Care Team (Latest Contact Info) Description 07/03/2018 Abstract [facility] CONVERSIONS Dental, Provider, DDS Social History [...] Description 07/18/2024 8:00 AM EDT Office Visit [facility] ADULT DENTAL 230 [place] [address] Rebecca Capps documented as of this encounter Visit Diagnoses Not on filedocumented in this encounter Care Teams Assistant Foreman Relationship Specialty Start Date End Date Mirtha Lunsford MD 230 [place] [address] PCP - General Family Medicine 03/04/15 Victoria Radford, Duy 230 [place] [address] Pharmacist Internal Medicine 08/03/22 Acosta Sinha FNP 230 [place] [address] Nurse Practitioner Family Medicine 01/17/23 Flip Wan MD 5 [place] [address] Pulmonary Disease 02/02/24 Dmitri Sequeira MD 100 [facility] 200 [place] [address] Nephrology 02/10/24 Stephane Pisano MD [address] 3rd [place] [address] General Surgery 02/10/24 Melvin Claros MD 596 [place] [address] Cardiology 04/16/24 Artur Aguilar MD [address] [place] [address] Endocrinology 05/31/24 NARAYAN LICEA Ingot HeaderControl Panel Builder 01/06/23 02/06/24 Ghassan Fletcher Ingot HeaderControl Panel Builder 02/07/24 documented as of this encounter
--- OUTSIDE RECORDS SUMMARY | 2024-07-05 15:31 | XMS_ITS | Encounter Summary ---
Author Organization [employer] Address 75 [facility] 7t [place] [address] Care Team Providers Care Customer Relations Assistant Name Role Phone Mirtha Lunsford MD Primary Care Provider + [phone] Victoria Radford PharmD Unavailable Acosta Sinha FIRE PATROL Unavailable Unavailable Flip Wan MD Unavailable [phone] Dmitri Sequeira MD Unavailable [phone] Stephane Pisano MD Unavailable Melvin Claros MD Unavailable [phone] Artur Aguilar MD Unavailable [phone] Reason for Visit * Reason Comments Med Refill Encounter Details Date Type Department Care Team (Late st Contact Info) Description 11/15/2022 Refill [facility] CHC MED & PEDS 505 [place], [place] [phone] Mirtha Lunsford MD 230 [place] [address] Seasonal allergies Social History Tobacco Use Types [...] Description 07/18/2024 8:00 AM EDT Office Visit [facility] ADULT DENTAL 230 [place] [address] Rebecca Capps documented as of this encounter [...] documented as of this encounter Care Teams Customer Relations Assistant Relationship Specialty Start Date End Date Mirtha Lunsford MD 230 [place] [address] PCP - General Family Medicine 03/04/15 Victoria Radford, PharmD 230 [place] [address] Pharmacist Internal Medicine 08/03/22 Acosta Sinha FNP 230 [place] [address] Nurse Practitioner Family Medicine 01/17/23 Flip Wan MD 5 [place] [address] Pulmonary Disease 02/02/24 Dmitri Sequeira MD 100 [facility] 200 [place] [address] Nephrology 02/10/24 Stephane Pisano MD 11 [facility] 3rd [place] [address] General Surgery 02/10/24 Melvin Claros MD 596 [place] [address] Cardiology 04/16/24 Artur Aguilar MD [address] [facility] [address] [place] [address] Endocrinology 05/31/24 NARAYAN LICEA Manager LocationChild And Adolescent Therapist 01/06/23 02/06/24 Ghassan Fletcher Manager LocationChild And Adolescent Therapist 02/07/24 documented as of this encounter
--- OUTSIDE RECORDS SUMMARY | 2024-07-05 15:31 | XMS_ITS | Encounter Summary ---
Author Organization [employer] Address [address] [facility] [address] 7t [place] [address] Care Team Providers Care Equipment Technician Name Role Phone Mirtha Lunsford MD Primary Care Provider + [phone] Victoria Radford PharmD Unavailable [phone] Acosta Sinha RUG CLEANER HELPER Unavailable Unavailable Flip Wan MD Unavailable [phone] Dmitri Sequeira MD Unavailable [phone] Stephane Pisano MD Unavailable Melvin Claros MD Unavailable [phone] Artur Aguilar MD Unavailable [phone] Reason for Visit * Reason Comments Med Refill Encounter Details Date Type Department Care Team (Late st Contact Info) Description 11/13/2022 Refill [facility] 230 [place], [place] [phone] Mirtha Lunsford MD 230 [place], [place] [phone] Essential hypertension (Primary Dx) Social History Tobacco [...] Description 07/18/2024 8:00 AM EDT Office Visit [facility] ADULT DENTAL 230 [place] [address] Rebecca Capps documented as of this encounter [...] documented as of this encounter Care Teams Equipment Technician Relationship Specialty Start Date End Date Mirtha Lunsford MD 230 [place] [address] PCP - General Family Medicine 03/04/15 Victoria Radford, PharmD 230 [place] [address] Pharmacist Internal Medicine 08/03/22 Acosta Sinha FNP 230 [place] [address] Nurse Practitioner Family Medicine 01/17/23 Flip Wan MD 5 [place] [address] Pulmonary Disease 02/02/24 Dmitri Sequeira MD [address] [address] Nephrology 02/10/24 Stephane Pisano MD 11 [facility] 3rd [place] [address] General Surgery 02/10/24 Melvin Claros MD 596 [place] [address] Cardiology 04/16/24 Artur Aguilar MD [address] [place] [address] Endocrinology 05/31/24 NARAYAN LICEA Software Support EngineerFact Checker 01/06/23 02/06/24 Ghassan Fletcher Software Support EngineerFact Checker 02/07/24 documented as of this encounter
--- OUTSIDE RECORDS SUMMARY | 2024-07-05 15:31 | XMS_ITS | Encounter Summary ---
Author Organization [employer] Address 75 [facility] 7t [place] [address] Care Team Providers Care Mammalogist Name Role Phone Mirtha Lunsford MD Primary Care Provider + [phone] Victoria Radford PharmD Unavailable [phone] Acosta Sinha CERAMIC CHEMIST Unavailable Unavailable Flip Wan MD Unavailable [phone] Dmitri Sequeira MD Unavailable [phone] Stephane Pisano MD Unavailable Melvin Claros MD Unavailable [phone] Artur Aguilar MD Unavailable [phone] Reason for Visit * Reason Comments Med Refill Encounter Details Date Type Department Care Team (Late st Contact Info) Description 09/23/[address] [facility] CHC MED & PEDS 505 [place], [place] [phone] Mirtha Lunsford MD 230 [place] [address] Seasonal allergies Social History Tobacco Use Types [...] [facility] 230 [place] [address] Rebecca Capps documented as of this encounter [...] documented as of this encounter Care Teams Mammalogist Relationship Specialty Start Date End Date Mirtha Lunsford MD 230 [place] [address] PCP - General Family Medicine 03/04/15 Victoria Radford, PharmD 230 [place] [address] Pharmacist Internal Medicine 08/03/22 Acosta Sinha FNP 230 [place] [address] Nurse Practitioner Family Medicine 01/17/23 Flip Wan MD 5 [place] [address] Pulmonary Disease 02/02/24 Dmitri Sequeira MD 100 [facility] 200 [place] [address] Nephrology 02/10/24 Stephane Pisano MD 11 [facility] 3rd [place] [address] General Surgery 02/10/24 Melvin Claros MD 596 [place] [address] Cardiology 04/16/24 Artur Aguilar MD [address] [facility] [address] [place] [address] Endocrinology 05/31/24 NARAYAN LICEA Farm Equipment OperatorCabinet Maker 01/06/23 02/06/24 Ghassan Fletcher Farm Equipment OperatorCabinet Maker 02/07/24 documented as of this encounter
--- OUTSIDE RECORDS SUMMARY | 2024-07-05 15:31 | XMS_ITS | Encounter Summary ---
Author Organization [employer] Address [address] [facility] [address] 7t [place] [address] Care Team Providers Care It Systems Analyst Name Role Phone Mirtha Lunsford MD Primary Care Provider + [phone] Victoria Radford PharmD Unavailable [phone] Acosta Sinha VALET Unavailable Unavailable Flip Wan MD Unavailable [phone] Dmitri Sequeira MD Unavailable [phone] Stephane Pisano MD Unavailable [phone] Melvin Claros MD Unavailable [phone] Artur Aguilar MD Unavailable [phone] Reason for Visit * Reason Comments Med Refill Encounter Details Date Type Department Care Team (Late st Contact Info) Description 05/08/2024 Refill [facility] 230 [place], [place] [phone] Mirtha Lunsford MD 230 [place], [place] [phone] Social History Tobacco Use Types Packs/Day Years [...] Description 07/18/2024 8:00 AM EDT Office Visit [facility] ADULT DENTAL 230 [place] [address] Rebecca Capps documented as of this encounter [...] documented as of this encounter Care Teams It Systems Analyst Relationship Specialty Start Date End Date Mirtha Lunsford MD 230 [place] [address] PCP - General Family Medicine 03/04/15 Victoria Radford, PharmD 230 [place] [address] Pharmacist Internal Medicine 08/03/22 Acosta Sinha FNP 230 [place] [address] Nurse Practitioner Family Medicine 01/17/23 Flip Wan MD 5 [place] [address] Pulmonary Disease 02/02/24 Dmitri Sequeira MD [address] [address] Nephrology 02/10/24 Stephane Pisano MD 11 [facility] 3rd [place] [address] General Surgery 02/10/24 Mevlin Claros MD 596 [place] [address] Cardiology 04/16/24 Artur Aguilar MD 10 [facility] [address] [place] [address] Endocrinology 05/31/24 Ghassan Fletcher Motion Picture Film ExaminerBenefits Analyst 02/07/24 documented as of this encounter
--- OUTSIDE RECORDS SUMMARY | 2024-07-05 15:31 | XMS_ITS | Encounter Summary ---
Author Organization [employer] Address 75 [facility] 7t [place] [address] Care Team Providers Care Can Dragger Name Role Phone Mirtha Lunsford MD Primary Care Provider + [phone] Victoria Radford PharmD Unavailable [phone] Acosta Sinha ROLL EDGE STITCHER HAND Unavailable Unavailable Flip Wan MD Unavailable [phone] Dmitri Sequeira MD Unavailable [phone] Stephane Pisano MD Unavailable [phone] Melvin Claros MD Unavailable [phone] Artur Aguilar MD Unavailable [phone] Encounter Details Date Type Department Care Team (Latest Contact Info) Description 07/25/2020 Abstract [facility] CONVERSIONS Dental, Provider, DDS Social [...] Description 07/18/2024 8:00 AM EDT Office Visit [facility] ADULT DENTAL 230 [place] [address] Rebecca Capps documented as of this encounter Visit Diagnoses Not on filedocumented in this encounter Care Teams Can Dragger Relationship Specialty Start Date End Date Mirtha Lunsford MD 230 [place] [address] PCP - General Family Medicine 03/04/15 Victoria Radford PharmD 230 [place] [address] Pharmacist Internal Medicine 08/03/22 Acosta Sinha FNP 230 [place] [address] Nurse Practitioner Family Medicine 01/17/23 Flip Wan MD 5 [place] [address] Pulmonary Disease 02/02/24 Dmitri Sequeira MD 100 [facility] 200 [place] [address] Nephrology 02/10/24 Stephane Pisano MD [address] 3rd [place] [address] General Surgery 02/10/24 Melvin Claros MD 596 [place] [address] Cardiology 04/16/24 Artur Aguilar MD [address] [place] [address] Endocrinology 05/31/24 NARAYAN LICEA Stuffing Machine OperatorHealthcare Educator 01/06/23 02/06/24 Ghassan Fletcher Stuffing Machine OperatorHealthcare Educator 02/07/24 documented as of this encounter
--- OUTSIDE RECORDS SUMMARY | 2024-07-05 15:32 | XMS_ITS | Encounter Summary ---
Author Organization [employer] Address [address] [facility] [address] 7t [place] [address] Care Team Providers Care Securities Consultant Name Role Phone Mirtha Lunsford MD Primary Care Provider + [phone] Victoria Radford PharmD Unavailable [phone] Acosta Sinha CUTTING MACHINE OPERATOR Unavailable Unavailable Flip Wan MD Unavailable [phone] Dmitri Sequeira MD Unavailable [phone] Stephane Pisano MD Unavailable [phone] Melvin Claros MD Unavailable [phone] Artur Aguilar MD Unavailable [phone] Reason for Visit * Reason Comments Med Refill Encounter Details Date Type Department Care Team (Late st Contact Info) Description 07/03/2024 Refill [facility] 230 [place], [place] [phone] Mirtha Lunsford MD 230 [place], [place] [phone] Chronic bilateral low back pain, unspecified whether sciatica present Social History Tobacco Use Types Packs/Day Years [...] Frequency of Binge Drinking Not on file 10/2 09/2023 Depression Answer Date Recorded Patient Health Questionnaire-9 [...] Office Visit [facility] ADULT DENTAL 230 [place] [address] Rebecca Capps documented as of this encounter Goals Goal Patient Goal Type Associated Problems Recent Progress Patient-Stated? Author Blood Pressure < 140/90 Blood Pressure 133/90( 025 9:04 AM EDT) No PeteVictoria Pak PharmD Reduce tobacco use (cigarettes, smokeless, etc) Tobacco Use No Victoria Mayo PharmD documented as of this encounter Visit Diagnoses Diagnosis Chronic bilateral low back pain, unspecified whether sciatica present documented in this encounter Additional Health Concerns Assessment Noted Time PHQ-9 Depression Total Score: 0 06/19/19 25 9:06 AM EDT documented as of this encounter Care Teams Securities Consultant Relationship Specialty Start Date End Date Mirtha Lunsford MD 230 [place] [address] PCP - General Family Medicine 03/04/15 Victoria Radford PharmD [address] [place] [address] Pharmacist Internal Medicine 08/03/22 Acosta Sinha FNP [address] [place] [address] Nurse Practitioner Family Medicine 01/17/23 Flip Wan MD 5 [place] [address] Pulmonary Disease 02/02/24 Dmitri Sequeira MD [address] [address] Nephrology 02/10/24 Stephane Pisano MD 11 [facility] 3rd [place] [address] General Surgery 02/10/24 Melvin Claros MD 596 [place] [address] Cardiology 04/16/24 Artur Aguilar MD 10 [facility] [address] [place] [address] Endocrinology 05/31/24 Ghassan Fletcher Paint Roller Cover Machine SetterCustomer Relations Advisor 02/07/24 documented as of this encounter
--- OUTSIDE RECORDS SUMMARY | 2024-07-05 15:32 | XMS_ITS | Encounter Summary ---
Author Organization [employer] Address [address] [facility] 7t [place] [address] Care Team Providers Care Forestry Support Specialist Name Role Phone Mirtha Lunsford MD Primary Care Provider + [phone] Victoria Radford PharmD Unavailable [phone] Acosta Sinha BUSINESS PROJECT ANALYST Unavailable Unavailable Flip Wan MD Unavailable [phone] Dmitri Sequeira MD Unavailable [phone] Stephane Pisano MD Unavailable Melvin Claros MD Unavailable Artur Aguilar MD Unavailable [phone] Encounter Details Date Type Department Care Team (Late st Contact Info) Description 09/08/2022 Abstract [facility] 230 [place], [place] [phone] Mirtha Lunsford MD 230 [place], [place] [phone] Social History Tobacco Use Types Packs/Day Years [...] Description 07/18/2024 8:00 AM EDT Office Visit [facility]ULT [facility] 230 [place] [address] Rebecca Capps documented as of this encounter Goals Goal Patient Goal Type Associated Problems Recent Progress Patient-Stated? Author Blood Pressure < 140/90 Blood Pressure 133/90( 025 9:04 AM EDT) No Victoria Mayo, PharmD documented as of this encounter Visit Diagnoses Not on filedocumented in this encounter Additional Health Concerns Assessment Noted Time PHQ-9 Depression Total Score: 10 023 3:38 PM EDT documented as of this encounter Care Teams Forestry Support Specialist Relationship Specialty Start Date End Date Mirtha Lunsford MD 230 [place] [address] PCP - General Family Medicine 03/04/15 Victoria Radford, PharmD 230 [place] [address] Pharmacist Internal Medicine 08/03/22 Acosta Sinha FNP 230 [place] [address] Nurse Practitioner Family Medicine 01/17/23 Flip Wan MD [address] [place] [address] Pulmonary Disease 02/02/24 Dmitri Sequeira MD [address] [id number] Nephrology 02/10/24 Stephane Pisano MD [address] [place] [address] 3rd [place] [address] General Surgery 02/10/24 Melvin Claros MD 596 [place] [address] Cardiology 04/16/24 Artur Aguilar MD 10 [facility] [address] [place] [address] Endocrinology 05/31/24 NARAYAN LICEA Flake Or Shred Roll OperatorRailroad Car Inspector 01/06/23 02/06/24 Ghassan Fletcher Flake Or Shred Roll OperatorRailroad Car Inspector 02/07/24 documented as of this encounter
--- OUTSIDE RECORDS SUMMARY | 2024-07-05 15:32 | XMS_ITS | Encounter Summary ---
Author Organization [employer] Address 75 [facility] 7t [place] [address] Care Team Providers Care Travel Writer Name Role Phone Mirtha Lunsford MD Primary Care Provider + [phone] Victoria Radford PharmD Unavailable [phone] Aocsta Sinha Unavailable Unavailable Flip Wan MD Unavailable [phone] Dmitri Sequeira MD Unavailable [phone] Stephane Pisano MD Unavailable [phone] Melvin Claros MD Unavailable [phone] Artur Aguilar MD Unavailable [phone] Reason for Visit * Reason Comments Med Refill Encounter Details Date Type Department Care Team (Late st Contact Info) Description 01/04/2024 Refill [facility] 230 [place], [place] [phone] Shayla Ferrer DO 230 [place], [place] [phone] Social History Tobacco Use Types Packs/Day Years [...] Description 07/18/2024 8:00 AM EDT Office Visit [facility] ADULT [facility] 230 [place] [address] Rebecca Capps documented as of this encounter [...] documented as of this encounter Care Teams Travel Writer Relationship Specialty Start Date End Date Mirtha Lunsford MD 230 [place] [address] PCP - General Family Medicine 03/04/15 Victoria Radford, PharmD 230 [place] [address] Pharmacist Internal Medicine 08/03/22 Acosta Sinha FNP [address] [place] [address] Nurse Practitioner Family Medicine 01/17/23 Flip Wan MD 5 [place] [address] Pulmonary Disease 02/02/24 Dmitri Sequeira MD [address] [address] Nephrology 02/10/24 Stephane Pisano MD 11 [facility] 3rd [place] [address] General Surgery 02/10/24 Melvin Claros MD 596 [place] [address] Cardiology 04/16/24 Artur Aguilar MD 10 [facility] [address] [place] [address] Endocrinology 05/31/24 NARAYAN LICEA Mainspring Winder And OilerDirector Of Technology 01/06/23 02/06/24 Ghassan Fletcher Mainspring Winder And OilerDirector Of Technology 02/07/24 documented as of this encounter
--- OUTSIDE RECORDS SUMMARY | 2024-07-05 15:32 | XMS_ITS | Encounter Summary ---
Author Organization [employer] Address 75 [facility] 7t [place] [address] Care Team Providers Care Director Career Services Name Role Phone Mirtha Lunsford MD Primary Care Provider + [phone] Victoria Radford PharmD Unavailable Acosta Sinha VETERINARY LIVESTOCK INSPECTOR Unavailable Unavailable Flip Wan MD Unavailable [phone] Dmitri Sequeira MD Unavailable [phone] Stephane Pisano MD Unavailable Melvin Claros MD Unavailable [phone] Artur Aguilar MD Unavailable [phone] Reason for Visit * Reason Comments Med Refill Encounter Details Date Type Department Care Team (Late st Contact Info) Description 04/12/2024 Refill [facility] 230 [place], [place] [phone] Mirtha Lunsford MD 230 [place] [address] Moderate persistent asthma without complication Social History [...] Description 07/18/2024 8:00 AM EDT Office Visit [facility] ADULT DENTAL 230 [place] [address] Rebecca Capps documented as of this encounter [...] documented as of this encounter Care Teams Director Career Services Relationship Specialty Start Date End Date Mirtha Lunsford MD 230 [place] [address] PCP - General Family Medicine 03/04/15 Victoria Radford, PharmD 230 [place] [address] Pharmacist Internal Medicine 08/03/22 Acosta Sinha FNP [address] [place] [address] Nurse Practitioner Family Medicine 01/17/23 Flip Wan MD 5 [place] [address] Pulmonary Disease 02/02/24 Dmitri Sequeira MD [address] [address] Nephrology 02/10/24 Stephane Pisano MD 11 [facility] 3rd [place] [address] General Surgery 02/10/24 Melvin Claros MD 596 [place] [address] Cardiology 04/16/24 Artur Aguilar MD 10 [facility] [address] [place] [address] Endocrinology 05/31/24 Ghassan Fletcher Gasket MakerIs Analyst 02/07/24 documented as of this encounter
--- OUTSIDE RECORDS SUMMARY | 2024-07-05 15:32 | XMS_ITS | Encounter Summary ---
Author Organization [employer] Address [address] [facility] [address] 7t [place] [address] Care Team Providers Care Surgical Consultant Name Role Phone Mirtha Lunsford MD Primary Care Provider + [phone] Victoria Radford PharmD Unavailable Acosta Sinha PLASTER FOREMAN Unavailable Unavailable Flip Wan MD Unavailable [phone] Dmitri Sequeira MD Unavailable [phone] Stephane Pisano MD Unavailable [phone] Melvin Claros MD Unavailable Artur Aguilar MD Unavailable [phone] Encounter Details Date Type Department Care Team (Late st Contact Info) Description 08/24/2023 Abstract [facility] 230 [place], [place] [phone] Mirtha Lunsford MD 230 [place], [place] [phone] Social History Tobacco Use Types Packs/Day Years [...] 8:00 AM EDT Office Visit [facility] 230 [place] [address] Rebecca Capps documented as of this encounter [...] documented as of this encounter Care Teams Surgical Consultant Relationship Specialty Start Date End Date Mirtha Lunsford MD 230 [place] [address] PCP - General Family Medicine 03/04/15 Victoria Radford PharmD 230 [place] [address] Pharmacist Internal Medicine 08/03/22 Acosta Sinha FNP 230 [place] [address] Nurse Practitioner Family Medicine 01/17/23 Flip Wan MD 5 [place] [address] Pulmonary Disease 02/02/24 Dmitri Sequeira MD [address] [address] Nephrology 02/10/24 Stephane Pisano MD [address] 3rd [place] [address] General Surgery 02/10/24 Melvin Claros MD 596 [place] [address] Cardiology 04/16/24 Artur Aguilar MD [address] [place] [address] Endocrinology 05/31/24 NARAYAN LICEA Digital Marketing ConsultantLoad Planner 01/06/23 02/06/24 Ghassan Fletcher Digital Marketing ConsultantLoad Planner 02/07/24 documented as of this encounter
--- OUTSIDE RECORDS SUMMARY | 2024-07-05 15:32 | XMS_ITS | Encounter Summary ---
Author Organization [employer] Address 75 [facility] 7t [place] [address] Care Team Providers Care Advertising Solicitor Name Role Phone Mirtha Lunsford MD Primary Care Provider + [phone] Victoria Radford PharmD Unavailable Acosta Sinha Unavailable Unavailable Flip Wan MD Unavailable [phone] Dmitri Sequeira MD Unavailable [phone] Stephane Pisano MD Unavailable [phone] Melvin Claros MD Unavailable [phone] Artur Aguilar MD Unavailable [phone] Reason for Visit * Reason Comments Med Refill Encounter Details Date Type Department Care Team (Late st Contact Info) Description 12/29/[address] [facility] 230 [place], [place] [phone] Anya Muller ANP 230 [place], [place] [phone] Essential hypertension Social History Tobacco Use Types [...] [facility] ADULT DENT[facility] [address] [place] [address] Rebecca Capps documented as of this encounter [...] documented as of this encounter Care Teams Advertising Solicitor Relationship Specialty Start Date End Date Mirtha Lunsford MD 230 [place] [address] PCP - General Family Medicine 03/04/15 Victoria Radford, PharmD 230 [place] [address] Pharmacist Internal Medicine 08/03/22 Acosta Sinha FNP [address] [place] [address] Nurse Practitioner Family Medicine 01/17/23 Flip Wan MD 5 [place] [address] Pulmonary Disease 02/02/24 Dmitri Sequeira MD [address] [address] Nephrology 02/10/24 Stephane Pisano MD 11 [facility] 3rd [place] [address] General Surgery 02/10/24 Melvin Claros MD 596 [place] [address] Cardiology 04/16/24 Artur Aguilar MD 10 [facility] [address] [place] [address] Endocrinology 05/31/24 NARAYAN LICEA Care Transition CoordinatorRn Transport 01/06/23 02/06/24 Ghassan Fletcher Care Transition CoordinatorRn Transport 02/07/24 documented as of this encounter
--- OUTSIDE RECORDS SUMMARY | 2024-07-05 15:32 | XMS_ITS | Clinical Summary ---
Author Organization [facility] Address [address] [place] [address] [place] [address] Phone Care Team Providers Care Microsoft Net Developer Name Role Phone Demetri Tavia Primary Care Provider [phone] Allergies Active Allergy Reactions Criticality Noted Date [...] plan. 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
--- OUTSIDE RECORDS SUMMARY | 2024-07-05 15:32 | XMS_ITS | Encounter Summary ---
Author Organization [employer] Address 75 [facility] 7t [place] [address] Care Team Providers Care Microbiology Analyst Name Role Phone Mirtha Lunsford MD Primary Care Provider + [phone] Victoria Radford PharmD Unavailable Acosta Sinha BIOSECURITY OFFICER Unavailable Unavailable Flip Wan MD Unavailable [phone] Dmitri Sequeira MD Unavailable [phone] Stephane Pisano MD Unavailable Melvin Claros MD Unavailable [phone] Artur Aguilar MD Unavailable [phone] Reason for Visit * Reason Comments Med Refill Encounter Details Date Type Department Care Team (Late st Contact Info) Description 04/03/2024 Refill [facility] 230 [place], [place] [phone] Mirtha Lunsford MD 230 [place] [address] Mild intermittent asthma without complication Social History [...] Description 07/18/2024 8:00 AM EDT Office Visit [facility] ADULT DENTAL 230 [place] [address] Rebecca Capps documented as of this encounter [...] documented as of this encounter Care Teams Microbiology Analyst Relationship Specialty Start Date End Date Mirtha Lunsford MD 230 [place] [address] PCP - General Family Medicine 03/04/15 Victoria Radford, PharmD 230 [place] [address] Pharmacist Internal Medicine 08/03/22 Acosta Sinha FNP [address] [place] [address] Nurse Practitioner Family Medicine 01/17/23 Flip Wan MD 5 [place] [address] Pulmonary Disease 02/02/24 Dmitri Sequeira MD [address] [address] Nephrology 02/10/24 Stephane Pisano MD 11 [facility] 3rd [place] [address] General Surgery 02/10/24 Melvin Claros MD 596 [place] [address] Cardiology 04/16/24 Artur Aguilar MD 10 [facility] [address] [place] [address] Endocrinology 05/31/24 Ghassan Fletcher Pre Sales Technical EngineerMachining And Assembly Supervisor 02/07/24 documented as of this encounter
--- OUTSIDE RECORDS SUMMARY | 2024-07-05 15:32 | XMS_ITS | Encounter Summary ---
Author Organization [employer] Address 75 [facility] 7t [place] [address] Care Team Providers Care Oracle Bpm Consultant Name Role Phone Mirtha Lunsford MD Primary Care Provider + [phone] Victoria Radford PharmD Unavailable Acosta Sinha DANCING MASTER Unavailable Unavailable Flip Wan MD Unavailable [phone] Dmitri Sequeira MD Unavailable [phone] Stephane Pisano MD Unavailable [phone] Melvin Claros MD Unavailable [phone] Artur Aguilar MD Unavailable [phone] Reason for Visit * Reason Comments Med Refill Encounter Details Date Type Department Care Team (Late st Contact Info) Description 09/06/2023 Refill [facility] 230 [place], [place] [phone] Mirtha Lunsford MD 230 [place] [address] Social History Tobacco Use Types Packs/Day Years [...] 8:00 AM EDT Office Visit [facility] ADULT DENT[facility] 230 [place] [address] Rebecca Capps documented as of this encounter [...] documented as of this encounter Care Teams Oracle Bpm Consultant Relationship Specialty Start Date End Date Mirtha Lunsford MD 230 [place] [address] PCP - General Family Medicine 03/04/15 Victoria Radford PharmD 230 [place] [address] Pharmacist Internal Medicine 08/03/22 Acosta Sinha FNP 230 [place] [address] Nurse Practitioner Family Medicine 01/17/23 Flip Wan MD 5 [place] [address] Pulmonary Disease 02/02/24 Dmitri Sequeira MD [address] [address] Nephrology 02/10/24 Stephane Pisano MD [address] 3rd [place] [address] General Surgery 02/10/24 Melvin Claros MD 596 [place] [address] Cardiology 04/16/24 Artur Aguilar MD [address] [place] [address] Endocrinology 05/31/24 NARAYAN LICEA Edge Bander OperatorForensic Technician 01/06/23 02/06/24 Ghassan Fletcher Edge Bander OperatorForensic Technician 02/07/24 documented as of this encounter
--- OUTSIDE RECORDS SUMMARY | 2024-07-05 15:32 | XMS_ITS | Encounter Summary ---
Author Organization [facility] Address [address] [facility] [address] [place] [address] Phone Care Team Providers Care Food Writer Name Role Phone Tavia Mosquera Primary Care Provider [phone] Reason for Referral * Imaging (Routine) - Closed Specialty Diagnoses / Procedures Referred By Contac t Referred To Contact Diagnoses Right kidney absent Procedures Ultrasound renal limited Dmitri Sequeira MD Phone: tel: fax: Referral ID Status Reason Start Date Expiration Date Visits Re quested Visits Authorized [id number] Closed 09/22/2023 09/21/2024 1 1 Encounter Details Date Type Department Care Team (Latest Contact Info) Description 09/22/2023 Office Communication [facility] [address] [facility] [address] [place] [address] Dmitri Sequeira MD [address] [facility] 204 [place] [phone] Right kidney absent (Primary Dx) Social History [...] saw him--put on schedule 09/22/23 so I investigative analyst write a note * Telephone Encounter - [...] Primary documented in this encounter Care Teams Food Writer Relationship Specialty Start Date End Date [facility] [address] [place] [address] PCP - General 04/29/22 documented as of this encounter
== END 2024-07-05 15:38 | disposition home or self-care (01) ==
LOC: HO.HGS 14:45
PROVIDERS: PCP Family Medicine; Visit Provider Surgery
DX: Z86.0101 Personal history of adenomatous and serrated colon polyps (principal); Z01.818 Encounter for other preprocedural examination
CPT/HCPCS: 99213

== ENCOUNTER → 2024-07-05 14:44 | Outpatient (BNVA) | payer MEDICAID, SELFPAY | PROVIDERS: PCP Family Medicine; Visit Provider Surgery | DX: D17.20 Benign lipomatous neoplasm of skin and subcutaneous tissue of unspecified limb (principal); D17.1 Benign lipomatous neoplasm of skin and subcutaneous tissue of trunk; Z86.0101 Personal history of adenomatous and serrated colon polyps | CPT/HCPCS: 99212 ==

== ENCOUNTER 2024-07-15 00:56 | Emergency (ER) | payer MEDICAID, SELFPAY ==
--- NOTE | ~2024-07-15 | XR_ITS ---
CLINICAL HISTORY: cough, sob 1 view chest x-ray. Comparison: CR/SR - XR CHEST 1V - 10/18/23 03:21 EDT Findings: No consolidation, pneumothorax, or effusion. Bronchial wall thickening redemonstrated, unchanged. Heart size normal. Surgical hardware identified over the cervical spine. Impression: 1. Bilateral bronchial wall thickening redemonstrated. No focal pulmonary consolidation. No interval change. This document has been electronically signed by: Adrian Park MD on 07/15/2024 01:48:47
[2024-07-15 01:06] VITALS: BP 111/76; PULSE 94; RESP 24; TEMP 36.3; O2SAT 95; BMI 32.9
--- NOTE | 2024-07-15 01:10 | ECG_ITS ---
Test Reason : DISPENA Blood Pressure : */* mmHG Vent. Rate : 88 BPM Atrial Rate : 88 BPM P-R Int : 142 ms QRS Dur : 88 ms QT Int : 356 ms P-R-T Axes : 58 40 49 degrees QTcB Int : 430 ms Normal sinus rhythm Normal ECG When compared with ECG of 06-May-2023 09:34, No significant change was found Referred By: Generic ED Physician Electronically Signed By: Donald Whitehead
--- NOTE | 2024-07-15 01:24 | MHC.EDTECH ---
Patient ekg taken in Triage and was read by Provider ,blood drawn and rsv/covid swab collected all sent to lab .
[2024-07-15 01:29] LABS: Basophils Absolute Auto 0.1 X10*3/uL (0.0-0.2); Basophils Percent Auto 0.9 % (0-2); Eosinophils Absolute Auto 0.4 X10*3/uL (0.0-0.4); Eosinophils Percent Auto 4.3 % (0-4); Hematocrit 44.5 % (42.0-52.0); Hemoglobin 15.1 g/dl (14.0-18.0); Imm Gran Abs Auto 0.09 X10*3/uL (0.00-0.03); Imm Gran Pct Auto 1.1 % (0.0-0.4); Lymphocytes Absolute Auto 2.5 X10*3/uL (1.2-4.9); Lymphocytes Percent Auto 30.3 % (20-40); MANUAL DIFF FLAG NO; Mean Corpuscular HGB Conc 33.9 g/dl (31.0-36.0); Mean Corpuscular Hemoglobin 31.6 pg (27.0-33.0); Mean Corpuscular Volume 93.1 fL (80.0-98.0); Mean Platelet Volume 11.5 fL (9.4-12.4); Monocytes Absolute Auto 0.9 X10*3/uL (0.1-1.2); Monocytes Percent Auto 10.8 % (2-11); Neutrophils Absolute Auto 4.3 x10*3/uL (2.0-8.3); Neutrophils Percent Auto 52.6 % (45-73); Platelet Count 210 X10*3/uL (160-400); Red Blood Count 4.78 X10*6/uL (4.60-5.80); Red Cell Distribution Width 13.2 % (11.0-16.0); White Blood Count 8.1 X10*3/uL (4.8-10.8)
[2024-07-15 01:43] VITALS: PULSE 92; RESP 20; O2SAT 94
[2024-07-15] MEDS: Albuterol Sulfate 7.5 MG, Albuterol Sulfate (0.083%) 2.5 MG 10 MG INHALE (01:44)
--- NOTE | 2024-07-15 01:45 | ED.SOB ---
HPI - SOB/Dyspnea General Chief Complaint: Dyspnea Stated Complaint: SOB Time Seen by Provider: 07/15/24 01:43 Source: patient Mode of arrival: ambulatory Limitations: no limitations History of Present Illness ED Provider: Dr. Javed Olsen HPI Narrative: 54-year-old male with a history of asthma, gastritis who presents emergency department for evaluation of shortness of breath and cough x3 days. Patient states that he has a cough which is productive of thick white sputum. He states that he has a tightness in his chest whenever he coughs. The patient has been using his albuterol inhaler 10 times a day with no relief of his shortness of breath. Patient states that this evening, he had a coughing spell that made him very short of breath therefore he came to the emergency department for evaluation. Related Data Home Medications ?Medication ?Instructions ?Recorded ?Confirmed pregabalin 150 mg capsule (Lyrica) 150 mg PO BID 11/26/19 07/05/24 cyclobenzaprine 10 mg tablet 10 mg PO BEDTIME PRN muscle pain 11/28/22 07/05/24 ipratropium 20 mcg-albuterol 100 1 puff inhalation BID Shortness Of 11/28/22 07/05/24 mcg/actuation mist for inhalation Breath Or Wheezing (Combivent Respimat) escitalopram oxalate 5 mg tablet 5 mg PO DAILY 12/30/22 07/05/24 (Lexapro) lisinopril 20 mg tablet 20 mg PO QAM 12/30/22 07/05/24 loratadine 10 mg tablet 10 mg PO DAILY 05/11/23 07/05/24 atorvastatin 40 mg tablet 40 mg PO QAM 06/20/23 07/05/24 carvedilol 3.125 mg tablet 3.125 mg PO BID 06/20/23 07/05/24 escitalopram oxalate 10 mg tablet 10 mg PO DAILY 06/20/23 07/05/24 hydroxyzine pamoate 25 mg capsule 25 mg PO DAILY PRN anxiety 06/20/23 07/05/24 hydroxyzine pamoate 50 mg capsule 50 mg PO DAILY PRN anxiety 06/20/23 07/05/24 metoprolol succinate 25 mg 12.5 mg PO DAILY 06/20/23 07/05/24 tablet,extended release 24 hr nicotine 7 mg/24 hr daily 1 patch transdermal Q24H 06/20/23 07/05/24 transdermal patch pregabalin 150 mg capsule (Lyrica) 150 mg PO DAILY 06/20/23 07/05/24 terbinafine HCl 1 % topical cream 1 appl topical BID 06/20/23 07/05/24 Previous Rx's ?Medication ?Instructions ?Recorded omalizumab 150 mg subcutaneous 225 mg subcut Q2W 28 days #3 ea 12/11/20 solution (Xolair) acetaminophen 325 mg tablet 650 mg (2 x 325 mg) PO Q6H PRN 08/19/22 (Tylenol) pain #30 tabs albuterol sulfate 90 mcg/actuation 2 puff inhalation QID PRN 09/29/22 aerosol inhaler shortness of breath or wheezing #6.7 grams amlodipine 5 mg tablet 5 mg PO DAILY #30 tabs 12/03/22 albuterol sulfate 90 mcg/actuation 2 inh inhalation Q6H PRN shortness 05/06/23 breath activated powder inhaler of breath or wheezing #1 ea sodium,potassium,mag sulfates 17.5 See Rx Instructions PO .COMPLEX 06/20/23 gram-3.13 gram-1.6 gram oral soln #354 mL (Suprep Bowel Prep Kit) [id number] 2.5 20 ml PO Q4H PRN cough #118 mL 10/18/23 mg-5 mg-50 mg/5 mL oral liquid (Robitussin Cough and Cold CF) albuterol sulfate 2.5 mg/3 mL 2.5 mg (3 mL) inhalation Q4-6H PRN 01/21/24 (0.083 %) solution for nebulization shortness of breath or wheezing #75 mL benzonatate 100 mg capsule 100 mg PO TID PRN cough #20 caps 01/21/24 guaifenesin 600 mg tablet, 600 mg PO BID #30 tabs 02/02/24 extended release 12 hr fluticasone propionate 50 1 spray intranasal BID #48 mL 05/04/24 mcg/actuation nasal spray,suspension dexamethasone 1 mg tablet 1 mg PO ONCE #1 tab 05/31/24 montelukast 10 mg tablet 10 mg PO QPM #90 tabs 06/25/24 fluticasone propionate 115 2 puff inhalation Q12H 30 days #1 06/29/24 mcg-salmeterol 21 mcg/actuation ea HFA inhaler (Advair HFA) sodium,potassium,mag sulfates 17.5 See Rx Instructions PO .COMPLEX 07/05/24 gram-3.13 gram-1.6 gram oral soln #354 mL (Suprep Bowel Prep Kit) azithromycin 250 mg tablet See Rx Instructions PO .COMPLEX #6 07/15/24 (Zithromax Z-Abdifatah) tabs prednisone 20 mg tablet 60 mg (3 x 20 mg) PO DAILY 5 days 07/15/24 #15 tabs Allergies Allergy/AdvReac Type Severity Reaction Status Date / Time Iodinated Contrast Media Allergy Severe Unknown Verified 07/15/24 01:08 levofloxacin Allergy Mild Rash Verified 07/15/24 01:08 ibuprofen [From MOTRIN] Allergy Unknown KIDNEY Verified 07/15/24 01:08 ISSUES mushroom AdvReac Mild VOMITING Verified 07/15/24 01:08 amlodipine AdvReac Unknown Swelling Verified 07/15/24 01:08 Review of Systems Review of Systems: Yes all other systems are reviewed and are negative [facility] Past Medical History [facility] Narrative: Social history: Patient smokes half a pack of cigarettes per day times many years. He drinks 8 beers 2 to 3 times a week. He denies drug use. 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 Arthritis Surgical History History of rectal sphincterotomy History of hydrocelectomy History of colonoscopy History of left nephrectomy H/O neck surgery Previous back surgery Family History Family History Mother Hypertension Asthma Father Medical history unknown Social History Social History Household Members: None Housing: Apartment Do you presently have visiting nurse or other home services: No Alcohol intake: former Patient Tobacco Use Status: Current everyday Tobacco user Tobacco use type: Cigarette Cigarette Packs Per Day: 0 Cigarettes Per Day: 5 Years Smoked: 20 years e-Cigarette/Vaping Use: Former Use Second Hand Smoke Exposure: No Advance Directives: No Advance Directives Information Provided: No Do you have a plan to hurt others: No Plan service: No Current occupational status: unemployed 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 Exam: General: Awake, alert in no distress, patient is coughing frequently while I was in the room Head: Normocephalic, atraumatic EENT: PERRL, Lids normal, sclera normal, conjunctiva normal, nose normal , ears normal, throat without erythema or exudates Neck: Supple, no adenopathy Lung: Breath sounds were symmetric, patient has diffuse wheezing with no rales or rhonchi. Chest: symmetric movement, nontender Heart: regular rate and rhythm, normal S1, S2 no murmurs or rubs Abdomen: soft, non-tender, nondistended, normal bowel sounds Back: no vertebral tenderness, no CVAT Extremities: no deformities, moves all extremities symmetrically Neuro: Awake, alert, oriented, normal speech, cranial nerves intact, moves all extremities symmetrically Psych: Pleasant, cooperative Medications Administered Discontinued Medications Generic Name Dose Route Start Last Admin Trade Name Freq PRN Reason Stop Dose Admin Albuterol Sulfate 7.5 mg/ 10 mg 07/15/24 01:43 07/15/24 01:44 Albuterol Sulfate 2.5 mg INHALE 07/15/24 01:44 10 mg ONCE ONE Administration Albuterol Sulfate 5 mg/ 0 mg 07/15/24 02:10 07/15/24 02:33 Albuterol/Ipratropium 3 ml INHALE 07/15/24 02:11 1 each ONCE ONE Administration Azithromycin 500 mg/ Sodium 250 mls @ 125 mls/hr 07/15/24 01:59 07/15/24 04:20 Chloride IV 07/15/24 03:58 Infused ONCE ONE Infusion Methylprednisolone Sodium Succinate 125 mg 07/15/24 01:59 07/15/24 02:15 Methylprednisolone Sod Succ 125 Mg/2 Ml Vial IVPUSH 07/15/24 02:00 125 mg ONCE ONE Administration Medical Decision Making Medical Decision Making [facility] Narrative: 54-year-old male with a history of asthma, gastritis who presents emergency department for evaluation of shortness of breath and cough x3 days. Patient states that he has a cough which is productive of thick white sputum. He states that he has a tightness in his chest whenever he coughs. The patient has been using his albuterol inhaler 10 times a day with no relief of his shortness of breath. Patient states that this evening, he had a coughing spell that made him very short of breath therefore he came to the emergency department for evaluation. Vital signs were normal. Lung exam did reveal diffuse wheezing otherwise unremarkable. Differential diagnosis: ?Includes but is not limited to pneumonia, bronchitis, asthma exacerbation, anemia, electrolyte abnormalities Course: My interpretation of the patient's laboratory evaluation as follows: CBC was normal. CMP was unremarkable. Troponin was elevated at 47.8, the 2 hour repeat troponin was unchanged at 43.3 which is reassuring.. COVID-19, influenza and RSV tests are pending Twelve EKG was unremarkable. Chest x-ray revealed no evidence of pneumonia. COVID-19, influenza and RSV tests were negative My impression is that the patient has acute bronchitis which is caused a flare-up of his asthma. Patient was treated with albuterol 7.5 mg and ipratropium 0.5 mg nebulized, Solu-Medrol 125 mg IV and azithromycin 500 mg orally. Patient was discharged home with prescriptions for Zithromax Z-Abdifatah and prednisone 60 mg once a day for 5 days Admission/Observation Consideration of admission/observation: Escalation of care including admission/observation considered (Yes) Lab Data [facility] Lab Attestation statement: I reviewed the patient's lab results. 07/15/24 01:22 07/15/24 01:22 Labs: Lab Results 07/15/24 07/15/24 Range/Units 01:22 03:56 WBC 8.1 (4.8-10.8) X10*3/uL RBC 4.78 (4.60-5.80) X10*6/uL Hgb 15.1 (14.0-18.0) g/dl Hct 44.5 (42.0-52.0) % MCV 93.1 (80.0-98.0) fL MCH 31.6 (27.0-33.0) pg MCHC 33.9 (31.0-36.0) g/dl RDW 13.2 (11.0-16.0) % Plt Count 210 (160-400) X10*3/uL MPV 11.5 (9.4-12.4) fL Immature Gran % (Auto) 1.1 H (0.0-0.4) % Neut % (Auto) 52.6 (45-73) % Lymph % (Auto) 30.3 (20-40) % [place] % (Auto) 10.8 (2-11) % Eos % (Auto) 4.3 H (0-4) % Baso % (Auto) 0.9 (0-2) % Lymph # (Auto) 2.5 (1.2-4.9) X10*3/uL [place] # (Auto) 0.9 (0.1-1.2) X10*3/uL Eos # (Auto) 0.4 (0.0-0.4) X10*3/uL Baso # (Auto) 0.1 (0.0-0.2) X10*3/uL Abs Immat Gran (auto) 0.09 H (0.00-0.03) X10*3/uL Absolute Neuts (auto) 4.3 (2.0-8.3) x10*3/uL Absolute Nucleated RBC 0.000 (0.0-0.012) X10*3/uL Nucleated RBC % (auto) 0.0 (0.0-0.2) /100WBC Sodium 141 (135-145) mmol/L Potassium 4.1 (3.3-5.1) mmol/L Chloride 110 H (96-108) mmol/L Carbon Dioxide 20 L (22-29) mmol/L Anion Gap 15 (12-20) BUN 15 (9-16) mg/dL Creatinine 1.06 (0.5-1.4) mg/dL Estim Creat Clear Calc 88.4 Estimated GFR > 60 Random Glucose 93 (60-115) mg/dL Calcium 8.8 D (8.4-10.2) mg/dL Total Bilirubin 0.3 (0.0-1.0) mg/dL AST 29 (5-37) U/L ALT 34 (0-40) U/L Alkaline Phosphatase 113 (39-117) U/L Troponin I High Sens 47.8 H D 43.3 H (<3.5-35.0) ng/L Total Protein 6.8 (6.5-8.0) g/dL Albumin 4.1 (3.5-5.0) g/dL Influenza Type A (PCR) NEGATIVE (Negative) Influenza Type B (PCR) NEGATIVE (Negative) RSV RNA Qual (PCR) NEGATIVE (Negative) SARS-CoV-2 RNA (RT-PCR) NEGATIVE (Negative) Independent Interpretation I performed an independent interpretation of an: EKG and Plain X-Ray Interpretation: My independent interpretation patient's one-view chest x-ray is as follows: No acute disease. My independent interpretation patient's 12 EKG done on 07/15/2024 at 01:13 hours is as follows: Normal sinus rhythm rate of 88, normal MO interval, QRS duration QTC interval, no ST segment elevation, no ST segment depression, no significant T-wave abnormalities, no PACs, no PVCs. Compared to EKG dated 05/06/2023 had 09:34 hours there is no significant change. Radiology Impression Discussion of test interpretation with radiology: I have reviewed the radiologist's reading. Radiologist Impression: 1 view chest x-ray. Comparison: CR/SR - XR CHEST 1V - 10/18/23 03:21 EDT Findings: No consolidation, pneumothorax, or effusion. Bronchial wall thickening redemonstrated, unchanged. Heart size normal. Surgical hardware identified over the cervical spine. Impression: 1. Bilateral bronchial wall thickening redemonstrated. No focal pulmonary consolidation. No interval change. This document has been electronically signed by: Adrian Park MD on 07/15/2024 01:48:47 Prescription Management I considered prescription management with: Antibiotic (Zithromax) and Other (Anti-inflammatory steroids: Prednisone) Chronic Conditions Patient?s care impacted by: Hypertension Discharge Plan Discharge Clinical Impression: Acute bronchitis, Asthma exacerbation Patient Disposition: Home, Self-Care Instructions: Asthma (ED), Acute Bronchitis (ED) Additional Instructions: Your blood work was unremarkable. Your chest x-ray did not reveal any evidence for pneumonia. Your EKG was unremarkable. You did have an elevated troponin which can be a marker of heart attack however your repeat troponin was unchanged which is reassuring. I am treating you for an asthma exacerbation and for bronchitis. Take Zithromax (azithromycin) Z-Abdifatah as prescribed. Day 1 take 2 pills, each day after that take 1 pill for total of 5 days. This medication states in your system for 7-10 days and continues to work despite only taking it for 5 days. Take prednisone 20 mg pills, 3 pills once a day for 5 days. While you ?are taking prednisone, do not take any NSAIDs (Motrin, Advil, ibuprofen, Aleve, naproxen). Follow-up with your doctor in 2 days. Please return to the emergency department if your symptoms get worse or if you develop any symptoms that are concerning to you. NB: The patient left the emergency department before he can get his discharge instructions. I did call him on his cell phone and went over the instructions with him verbally. I did tell him that his prescriptions were sent to the [facility] pharmacy on [address] in he states that he will pick them up. Prescriptions: New azithromycin [Zithromax Z-Abdifatah] 250 mg tablet See Rx Instructions .ROUTE .COMPLEX Qty: 6 0RF Rx Instructions: take 500 mg today (day 1), then 250 mg for 4 days (days 2-5) prednisone 20 mg tablet 60 mg PO DAILY 5 Days Qty: 15 0RF No Action Xolair 150 mg recon soln 225 mg subcut Q2W 28 Days Qty: 3 12RF Rx Instructions: requires multiple injection sites; do not exceed 150 mg per injection site; NEXT DOSE: 11/30/22 fluticasone propionate 50 mcg/actuation spray,suspension 1 spray intranasal BID Qty: 48 0RF montelukast 10 mg tablet 10 mg PO QPM Qty: 90 0RF fluticasone propion-salmeterol [Advair HFA] 115-21 mcg/actuation HFA aerosol inhaler 2 puff inhalation Q12H 30 Days Qty: 1 4RF pregabalin [Lyrica] 150 mg Capsule 150 mg PO BID Rx Instructions: CANNOT TAKE WITH TRAMADOL loratadine 10 mg tablet 10 mg PO DAILY acetaminophen [Tylenol] 325 mg tablet 650 mg PO Q6H PRN (Reason: pain) Qty: 30 0RF albuterol sulfate 90 mcg/actuation aerosol powdr breath activated 2 inh inhalation Q6H PRN (Reason: shortness of breath or wheezing) Qty: 1 0RF albuterol sulfate 90 mcg/actuation HFA aerosol inhaler 2 puff inhalation QID PRN (Reason: shortness of breath or wheezing) Qty: 6.7 0RF cyclobenzaprine 10 mg tablet 10 mg PO BEDTIME PRN (Reason: muscle pain) Combivent Respimat 20-100 mcg/actuation mist 1 puff inhalation BID amlodipine 5 mg Tablet 5 mg PO DAILY Qty: 30 0RF Protocol: Hold for SBP< HOLD for SBP < : 90 Robitussin Cough and Cold CF 2.5-5-50 mg/5 mL liquid 20 ml PO Q4H PRN (Reason: cough) Qty: 118 0RF benzonatate 100 mg capsule 100 mg PO TID PRN (Reason: cough) Qty: 20 0RF albuterol sulfate 2.5 mg /3 mL (0.083 %) solution for nebulization 2.5 mg inhalation Q4-6H PRN (Reason: shortness of breath or wheezing) Qty: 75 0RF lisinopril 20 mg tablet 20 mg PO QAM escitalopram oxalate [Lexapro] 5 mg tablet 5 mg PO DAILY pregabalin [Lyrica] 150 mg capsule 150 mg PO DAILY atorvastatin 40 mg tablet 40 mg PO QAM escitalopram oxalate 10 mg tablet 10 mg PO DAILY carvedilol 3.125 mg tablet 3.125 mg PO BID hydroxyzine pamoate 50 mg capsule 50 mg PO DAILY PRN (Reason: anxiety) hydroxyzine pamoate 25 mg capsule 25 mg PO DAILY PRN (Reason: anxiety) metoprolol succinate 25 mg tablet extended release 24 hr 12.5 mg PO DAILY nicotine 7 mg/24 hr patch 24 hour 1 patch transdermal Q24H terbinafine HCl 1 % cream 1 appl topical BID sodium,potassium,mag sulfates [Suprep Bowel Prep Kit] 17.5-3.13-1.6 gram recon soln See Rx Instructions PO .COMPLEX Qty: 354 0RF Rx Instructions: DILUTE; drink full amount early evening before AND next morning at least 2 hr before procedure; follow w 960 mL water PO dexamethasone 1 mg tablet 1 mg PO ONCE Qty: 1 0RF guaifenesin 600 mg tablet extended release 12hr 600 mg PO BID Qty: 30 0RF sodium,potassium,mag sulfates [Suprep Bowel Prep Kit] 17.5-3.13-1.6 gram recon soln See Rx Instructions PO .COMPLEX Qty: 354 0RF Rx Instructions: DILUTE; drink full amount early evening before AND next morning at least 2 hr before procedure; follow w 960 mL water PO Print Language: [place]
[2024-07-15 01:53] LABS: Troponin-I High Sensitivity 47.8 ng/L (<3.5-35.0)
[2024-07-15 01:58] LABS: Alanine Aminotransferase 34 U/L (0-40); Albumin Level 4.1 g/dL (3.5-5.0); Anion Gap 15 (12-20); Aspartate Amino Transferase 29 U/L (5-37); Bilirubin Total 0.3 mg/dL (0.0-1.0); Blood Urea Nitrogen 15 mg/dL (9-16); Calcium 8.8 mg/dL (8.4-10.2); Carbon Dioxide 20 mmol/L (22-29); Chloride 110 mmol/L (96-108); Creatinine Clr Calc Pharmacy 88.4; Estimated Glomerular Filt Rate > 60; Glucose Random 93 mg/dL (60-115); Potassium 4.1 mmol/L (3.3-5.1); Sodium 141 mmol/L (135-145); Total Protein 6.8 g/dL (6.5-8.0)
[2024-07-15] MEDS: Azithromycin 500 MG in 0.9 % Sodium Chloride 250 ML 125 MG IV (02:14)
[2024-07-15] MEDS: methylPREDNISolone Sod Succ 125 MG/2 ML VIAL IVPUSH (02:15)
[2024-07-15] MEDS: Albuterol Sulfate 5 MG, Albuterol/Iprat 2.5/0.5MG 3 ML 3 ML INHALE (02:33)
[2024-07-15 02:45] LABS: Alkaline Phosphatase 113 U/L (39-117)
[2024-07-15 03:26] VITALS: O2SAT 88
[2024-07-15 03:37] LABS: Influenza A PCR NEGATIVE (Negative); Influenza B PCR NEGATIVE (Negative); Resp Syncy Virus RNA Qual PCR NEGATIVE (Negative); SARS COV2 PCR INHOUSE NEGATIVE (Negative)
[2024-07-15 04:21] LABS: Troponin-I High Sensitivity 43.3 ng/L (<3.5-35.0)
[2024-07-15 06:04] VITALS: BP 143/83; PULSE 100; RESP 16; TEMP 36.7; O2SAT 98
--- NOTE | 2024-07-15 07:12 | PC.NURSE ---
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 IV removed and Pt ambulated independently with steady gait. Dr. Olsen aware and spoke to Pt via phone.
[2024-07-15 07:16] VITALS: BP 00/00; PULSE 0; RESP 18; TEMP -17.7; TEMP 0
== END 2024-07-15 07:18 | disposition home or self-care (01) ==
PROVIDERS: Emergency Provider Emergency Medicine Emergency Medical Services; PCP Family Medicine
DX: J20.9 Acute bronchitis, unspecified (principal); J45.901 Unspecified asthma with (acute) exacerbation; R06.02 Shortness of breath; R05.9 Cough, unspecified; R07.89 Other chest pain; Z79.899 Other long term (current) drug therapy; F17.210 Nicotine dependence, cigarettes, uncomplicated; Z03.818 Encounter for observation for suspected exposure to other biological agents ruled out
CPT/HCPCS: 0241U; 36415; 71045; 80053; 84484; 85025; 93005; 94640; 96365; 96366; 96375; 99284; 99285; J0456; J2919

== ENCOUNTER → 2024-07-15 01:10 | Outpatient (BNV) | payer MEDICAID, SELFPAY | PROVIDERS: Emergency Provider Emergency Medicine Emergency Medical Services; PCP Family Medicine; Visit Provider Internal Medicine Cardiovascular Disease | DX: R06.00 Dyspnea, unspecified (principal) | CPT/HCPCS: 93010 ==

== ENCOUNTER → 2024-07-15 01:23 | Outpatient (BNV) | payer MEDICAID, SELFPAY | PROVIDERS: Emergency Provider Emergency Medicine Emergency Medical Services; PCP Family Medicine; Visit Provider Radiology Diagnostic Radiology | DX: J98.09 Other diseases of bronchus, not elsewhere classified (principal) | CPT/HCPCS: 71045 ==

== ENCOUNTER 2024-07-27 09:43 | Outpatient (AMB) | payer MEDICAID, SELFPAY ==
--- NOTE | 2024-07-27 07:59 | MHC.OFFVIS ---
Intake Visit Reasons: LDCT Allergies Iodinated Contrast Media Allergy (Severe, Verified 07/15/24 01:08) Unknown levofloxacin Allergy (Mild, Verified 07/15/24 01:08) Rash ibuprofen [From MOTRIN] Allergy (Unknown, Verified 07/15/24 01:08) KIDNEY ISSUES mushroom Adverse Reaction (Mild, Verified 07/15/24 01:08) VOMITING amlodipine Adverse Reaction (Unknown, Verified 07/15/24 01:08) Swelling HPI HPI LDCT: Details: Initial visit for this 54yo smoker with a 30+PYH. Patient started smoking at age 18 for 36 years at 1ppd. Working to cut down. . Denies marijuana use. Denies second hand smoke exposure. Denies exposure to chemicals or substances like asbestos. . Denies known family history of lung cancer. Denies personal history of cancers. Denies chest CT in last year. . Denies recent travel outside the [place]. Denies recent respiratory illness or recent hospitalization for respiratory issues. Denies testing positive for COVID. Admits receiving COVID Vaccine. . Denies fever, chills, new/worsening cough, hemoptysis, hoarseness or dysphagia. Denies significant chest pain, significant dyspnea or unintentional weight loss. Patient Lung Cancer Screening Questionnaire reviewed with patient by provider. . Shared Decision Making Completed. Patient meets criteria. Discussed in detail with patient, the risk vs benefit of LDCT screening. Patient consents to proceed with scan. Discussed smoking cessation. [facility] Medical History (Updated 07/27/24 @ 09:54 by Joyce Espino PA-C) History of adenomatous polyp of colon Nicotine dependence, cigarettes, uncomplicated History of rectal polyps Asthma Asthma with exacerbation Hypertension 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 Arthritis Surgical History (Updated 07/27/24 @ 08:02 by Joyce Espino PA-C) History of rectal sphincterotomy History of hydrocelectomy History of colonoscopy History of left nephrectomy H/O neck surgery Previous back surgery Family History Mother Hypertension Asthma Father Medical history unknown Social History (Updated 07/27/24 @ 09:54 by Joyce Espino PA-C) Household Members: None Housing: Apartment Do you presently have visiting nurse or other home services: No Alcohol intake: current Alcohol intake frequency: holidays/special occasions only Alcohol type: beer Patient Tobacco Use Status: Current everyday Tobacco user Tobacco use type: Cigarette Years Smoked: (onset 18, 1ppd x 36yrs, 30+PYH) e-Cigarette/Vaping Use: Former Use Second Hand Smoke Exposure: No service: No Current occupational status: unemployed 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 - Patient meets criteria for LDCT for lung cancer screening purposes and is asymptomatic. - Smoking cessation counseling offered. Patients can always call [phone]. - Will arrange for a LDCT scan of the chest for screening purposes at [facility]. - Risks, benefits, and alternatives were discussed in detail and the patient agrees to proceed. - Risks discussed include but are not limited to: radiation exposure, anxiety during testing and while awaiting results, false negatives, false positives and possibility of additional intervention such as further imaging or surgical procedures for benign disease. - Benefits are obviously detection of lung cancer at an early stage which can lead to improved outcomes. - Discussed the importance of screening program compliance with adherence to yearly LDCT scan as scheduled - or sooner interval scans for personalized screening regimen. - Discussed follow up plan. Our office will send a letter discussing results and if needed set up phone call and office visit based on CT findings. - Patient educated on results categorization and the management decisions for suspicious findings potentially found on the screening LDCT scan. Any patient with a Lung RADS score of 3 or 4 will be reviewed by a multidisciplinary team at [facility] to form a plan of action in regards to scan findings. - If further work up is warranted for a suspicious lung finding this will be followed by the Lung Cancer Screening program in conjunction with the Thoracic Surgery Department at [facility]. - A copy of the office note and LDCT will be sent to the patient's PCP - as well as documentation on any associated further plans of care. - Incidental findings on LDCT are the PCP's responsibility. These findings are indicated with an S finding on the LDCT Assessment. A note discussing the findings will be sent to the PCP who is then responsible for further management. - All questions answered.? Coding Level of Care Code Lung Cancer Screening G0296 Diagnoses Nicotine dependence, cigarettes, uncomplicated F17.210
--- OUTSIDE RECORDS SUMMARY | 2024-07-27 10:22 | XMS_ITS | Clinical Summary ---
Author Organization [email or web address] Address [address] [facility] [facility] [address] [place] [address] Care Team Providers Care Retort Fireman Name Role Phone Mirtha Lunsford MD Primary Care Provider [phone] Victoria Radford PharmD Unavailable Acosta Sinha TRADING SPECIALIST Unavailable Unavailable Flip Wan MD Unavailable [phone] Dmitri Sequeira MD Unavailable Stephane Pisano MD Unavailable Melvin Claros MD Unavailable Artur Aguilar MD Unavailable Allergies Active Allergy Reactions Criticality [...] BEDTIME 90 tablet 1 01/22/20 23 Active omalizumab (Xolair) 150 MG/ML injectionIndica tions:Moderate [...] daily. 42 g 2 12/19/19 24 Active loratadine (Claritin) 10 MG tabletIndicatio ns:Seasonal allergies TAKE 1 TABLET BY MOUTH EVERY MORNING 90 tablet 1 03/06/19 25 Active Combivent Respimat 20-100 MCG/ACT inhalerIndicati ons:Mild intermittent asthma without complication INHALE 1 PUFF BY INHALATION ROUTE 4 TIMES EVERY DAY MAY TAKE ADDITIONAL PUFFS NEEDED NOT TO EXCEED 6 PUFFS IN 24HRS 4 g 7 04/03/19 25 Active lidocaine (Lidoderm) 5 % patchIndication s:Sacroiliac joint dysfunction APPLY 1 PATCH TOPICALLY TO SKIN, LEAVE ON FOR 12 HOURS AND OFF FOR 12 HOURS DIRECTED 30 patch 1 04/27/19 25 Active albuterol (Ventolin HFA) 108 (90 Base) MCG/ACT inhalerIndicati ons:Moderate persistent asthma without complication INHALE 2 PUFFS BY MOUTH EVERY 4 HOURS NEEDED FOR WHEEZING OR SHORTNESS OF BREATH 18 g 1 05/19/19 25 Active mometasone (Elocon) 0.1 % creamIndication s:Rash APPLY TOPICALLY TO THE AFFECTED AREA(S) ONCE DAILY 45 g 1 06/01/19 25 Active lisinopril 20 MG tabletIndicatio ns:Essential hypertension Take 1 tablet (20 mg) by mouth in the morning. 90 tablet 3 06/09/19 25 Active metoprolol succinate XL (Toprol-XL) 25 MG 24 hr tabletIndicatio ns:Essential hypertension Take 1 tablet by mouth once daily. Do not crush or chew. 90 tablet 3 06/09/19 25 Active baclofen (Lioresal) 10 MG tabletIndicatio ns:Sacroiliac joint dysfunction TAKE 1 TABLET BY MOUTH THREE TIMES DAILY IN THE MORNING, AT NOON, AND AT BEDTIME NEEDED FOR MUSCLE SPASMS 60 tablet 1 06/21/19 25 Active pregabalin (Lyrica) 150 MG capsuleIndicati ons:Chronic bilateral low back pain, unspecified whether sciatica present TAKE 1 CAPSULE BY MOUTH TWICE DAILY IN THE MORNING AND IN THE EVENING 60 capsule 07/04/19 25 Active atorvastatin (Lipitor) 80 MG tabletIndicatio ns:Dyslipidemia TAKE 1 TABLET BY MOUTH EVERY MORNING 90 tablet 1 07/26/19 25 Active atorvastatin (Lipitor) 80 MG tabletIndicatio ns:Dyslipidemia Take 1 tablet (80 mg) by mouth Once per day. 90 tablet 08/24/19 24 2024 Discontinued pregabalin (Lyrica) 150 MG capsuleIndicati ons:Chronic bilateral low back pain, unspecified whether sciatica present TAKE 1 CAPSULE BY MOUTH TWICE DAILY IN THE MORNING AND IN THE EVENING 60 capsule 06/06/19 25 2024 Discontinued Active Problems Problem Noted Date Diagnosed Date [...] pain 04/16/2024 Overview (04/16/2024): -Patient followed at [facility] with Dr. Agueda Claros DO. [...] and let his feet air out. -recommended OT athletes foot cream Dietary counseling 08/29/2023 Assessment [...] and nutrition interventions discussed. -Patient followed at [facility] with Dr. Agueda Claros [...] retention. I spoke with JULIETA Wood at [facility] pain [facility] and they want the last CT scan faxed at [phone], they will fu with patient this week. Order lumbar MRI ro cord compromise Other specified health status 07/02/2022 Overview (06/18/2024): -next physical exam due after 4/28/26 -eye care facilitated by [facility] -dental home is [facility] -health care proxy filed 12/19/23 Assessment & Plan (06/18/2024 3:03 PM EDT): -next physical exam due after 06/18/25 -eye care facilitated by [facility] -dental home is [facility] -health care proxy filed 12/19/23 Assessment & Plan (12/19/2023 9:30 AM EDT): -next physical exam due after 05/29/2024 -eye care facilitated by [facility] -dental home is [facility] -health care proxy filed 12/19/23 Assessment & Plan (05/30/2023 10:13 AM EDT): -next physical exam due after 02/28/2023 -eye care facilitated by [facility] -dental home is [facility] -health care proxy given on 05/30/2023 [...] benign adenoma. Biochemical workup showed mass not secretary office clerk including dexamethasone suppression test. Repeat CT done [...] benign adenoma. Biochemical workup showed mass not secretary office clerk including dexamethasone suppression test. Repeat CT done [...] benign adenoma. Biochemical workup showed mass not secretary office clerk including dexamethasone suppression test. Repeat CT done 2019. Follow up Dr. Aguilar 1 year recommended. -referral placed 05/30/23 Assessment & Plan (01/24/2023 9:53 AM EST): Seen by Dr. Aguilar 05/08/2021 (prior was followed by Dr. Moseley) Hx incidental finding right adrenal nodule found in CT preformed in ER Feb 2018 c/w benign adenoma. Biochemical workup showed mass not secretary office clerk including dexamethasone suppression test. Repeat CT done [...] plan. Moderate persistent asthma 02/24/2022 Overview (02/02/2024): -senior product designer Dr. Wan seen 02/02/24 -Well controlled on current regimen of Xolair, Combivent, Advair, albuterol MDI. -last prednisone use 12/28/23 for exacerbation, given by pulmonary Assessment & Plan (06/18/2024 3:06 PM EDT): -senior product designer Dr. Wan seen 02/02/24 -Well controlled on current regimen of Xolair, Combivent, Advair, albuterol MDI. -last prednisone use 12/28/23 for exacerbation, given by pulmonary Assessment & Plan (02/23/2024 10:09 AM EST): -senior product designer Dr. Wan seen 02/02/24 -Well controlled on current regimen of Xolair, Combivent, Advair, albuterol MDI. -last prednisone use 12/28/23 for exacerbation, given by pulmonary Assessment & Plan (05/30/2023 12:31 PM EDT): -senior product designer Dr. Wan seen 12/2022 -Well controlled on current regimen of Xolair, Combivent, Advair, albuterol MDI. Continue current Assessment & Plan (01/24/2023 9:53 AM EST): -senior product designer Dr. Wan seen 12/2022 -Well controlled on current regimen of Xolair, Combivent, Advair, albuterol MDI. Continue current Assessment & Plan (12/20/2022 8:01 PM EDT): Few wheezing on lung exam,reports feeling well -offered NBZ tx here but refuse states will get at home ,and got pump tx before coming that may cause elevated HR -continue his regular inh and montelukast -continue care w senior product designer -planned apt for next month -advised to get booster for COVID 19 at vaccine clinic, pt s/p p20 and flu vaccine already Assessment & Plan (11/01/2022 9:02 AM EDT): -senior product designer Dr. Wan -continue Flovent -continue Singulair -continue albuterol prn Assessment & Plan (06/28/2022 10:09 AM EDT): Normal lung exam. advised to call Dr. Wan, his senior product designer, for kristan't. continue Flovent, Singulair, may use [...] up 1 month Tubular adenoma 02/15/2022 Overview (07/09/2024): Tubular adenoma on colonoscopy 03/[address] Pisano, referred 03/2021 follow up 3 years recommended -colonoscopy intake with Dr. Pisano 07/08/23 with multiple polyps recommending repeat in 1 year -had follow-up with Dr. Pisano 07/05/24, colonoscopy scheduled Assessment & Plan (06/18/2024 3:04 PM EDT): [...] Essential hypertension 08/19/2020 Overview (06/18/2024): -followed by [facility] -echo 03/31/23 EF 60-65% no changes compared to02/2017 -Blood pressure is slightly above goal, recommended monitoring at home. -Continue lifestyle modifications -Continue current medications -cardiology note from 04/12/23, no changes, follow up 6 months Assessment & Plan (06/18/2024 3:06 PM EDT): -followed by [facility] -echo 03/31/23 EF 60-65% no changes compared to02/2017 -Blood pressure is slightly above goal, recommended monitoring at home. -Continue lifestyle modifications -Continue current medications -cardiology note from 04/12/23, no changes, follow up 6 months Assessment & Plan (11/03/2023 10:12 AM EDT): -followed by [facility] -echo 03/31/23 EF 60-65% no changes compared to02/2017 -Blood pressure is at goal -Continue lifestyle modifications -Continue current medications -cardiology note from 04/12/23, no changes, follow up 6 months Assessment & Plan (05/30/2023 12:31 PM EDT): -followed by [facility] -echo 03/31/23 EF 60-65% [...] -atorvastatin increased from 40mg to 80mg by [facility] 08/2023 -continue lifestyle modifications Assessment & Plan [...] as pharmacomtherapy, [facility] smoking cessation group, and [facility] pharmacy smoking cessation clinic -14mg [...] as pharmacomtherapy, [facility] smoking cessation group, and [facility] pharmacy smoking cessation clinic -14mg [...] Encouraged smoking cessation resources such as pharmacomtherapy, [facility] smoking cessation group, and [facility] pharmacy smoking cessation clinic -14mg [...] diet and exercise,discussed healthy life style -discussed lighting fixtures decorator referral -referred today Acute dehydration 09/23/2022 10/27/2022 [...] is for one week only and not exterminator. Acute idiopathic gout involv ing toe of [...] Encounters Date Type Department Care Team Description 07/24/2024 Refill [facility] MEDICINE [address] [place] [address] Victoria Radford, PharmD Dyslipidemia 07/18/2024 8:00 AM EDT Office Visit [facility] ADULT DENTAL [address] [place] [address] Rebecca Capps Dental calculus (Primary Dx); Dental plaque 07/15/2024 Orders Only GENERIC EXTERNAL DATA DEPARTMENT Provider, Generic External Data 07/03/2024 Refill [facility] WALK-IN CENTER [address] [place] [address] Mirtha Lunsford MD Chronic bilateral low back pain, unspecified whether sciatica present 06/21/2024 Telephone [facility] MEDICINE [address] [place] [phone] Mirtha Lunsford MD Lung screening referral 06/20/2024 Orders Only [facility] External Provider, [facility] 06/19/2024 Refill [facility] [address] [place] [phone] Mirtha Lunsford MD Sacroiliac joint dysfunction 06/18/2024 9:15 AM EDT Office Visit [facility] MEDICINE [address] [place] [phone] Mirtha Lunsford MD Lipoma, unspecified site (Primary [...] specified health status 06/18/2024 Travel 06/14/[address] [address] Mirtha Lunsford MD Chartprep 06/12/2024 Orders Only GENERIC EXTERNAL DATA DEPARTMENT Provider, Generic External Data 06/08/2024 Orders Only [address] [address] Mirtha Lunsford MD Essential hypertension 06/07/[address] [address] Victoria Radford PharmD Essential hypertension 06/06/2024 Patient Outreach [address] [address] Mirtha Lunsford MD Pre-visit Planning (SDOH screening negative and Tobacco screening positive) 06/04/2024 Refill [facility] WALK-IN [address] [address] Mirtha Lunsford MD Chronic bilateral low back pain, unspecified whether sciatica present 05/31/2024 Refill [facility] MEDICINE [address] [place] [phone] Mirtha Lunsford MD Rash 05/18/2024 Refill [facility] [address] [place] [phone] Name, MD Kwame Moderate persistent asthma without complication 05/16/2024 Telephone [facility] MEDICINE [address] [place] [phone] Hannah Pool, JAMES NUTRITION APPT REQUEST 05/14/2024 Orders Only [facility] MEDICINE [address] [place] [phone] Mirtha Lunsford MD Class 1 obesity due to excess calories with serious comorbidity and body mass index (BMI) of 33.0 to 33.9 in adult (Primary Dx) 05/11/2024 10:30 AM EDT Office Visit [address] [address] Kulwinder Álvarez MD Callus (Primary Dx); Seborrheic keratosis; Viral wart on finger 05/11/2024 Travel 05/10/2024 Orders Only [facility] MEDICINE [address] [place] [phone] Kalli Henderson MD Class 1 obesity due to excess calories with serious comorbidity and body mass index (BMI) of 33.0 to 33.9 in adult (Primary Dx) 05/09/2024 Telephone [facility] MEDICINE [address] [place] [phone] Mirtha Lunsford MD 05/08/2024 Refill [facility] WALK[facility]IN CENTER [address] [place] [address] [phone] Mirtha Lunsford MD 05/04/2024 Population Health Risk Score [facility] Department [address] [place] [phone] Provider, Population Health Generic 05/02/2024 Refill [facility] WALK[facility]IN [facility]ENTER [address] [place] [phone] Mirtha Lunsford MD Chronic bilateral low back pain, unspecified whether sciatica present 04/26/2024 Refill [facility] MEDICINE [address] [place] [phone] Mirtha Lunsford MD Sacroiliac joint dysfunction from Last 3 Months Immunizations Immunization Administration [...] Sign Reading Time Taken Comments Blood Pressure 148/84 07/18/2024 8:10 AM EDT Pulse 98 06/18/2024 9:04 AM [...] Care Team (Late st Contact Info) Description 02/11/2025 8:00 AM EST Office Visit [facility] ADULT DENTAL [address] [place] [address] Rebecca Capps Health Maintenance Due Date Last Done Comments CT Colonography 1970 FIT DNA/Cologuard 1970 FIT 1970 FOBT 1970 Sigmoidoscopy 1970 Colonoscopy 08/23/2024 08/24/2023, 06/21, 07/08/2023, Additional history exists Colorectal Cancer Screening 08/23/2024 DTaP/Tdap/Td Vaccines (2 - Td or Tdap) 10/24/2024 10/24/2014, 11/15/2011, 11/15/2011, Additional history exists Alcohol/Substance Use Screening 12/18/2024 12/19/2023 Dental X-Ray: Bitewings 01/16/2025 01/16/20 24, 04/15/2021, 03/26/2021, Additional history exists Dental Oral Exam 01/19/2025 07/18/2024, , 07/25/2020, Additional history exists Dental Prophylaxis 01/19/2025 07/18/2024, 1 03/17/2023, 07/25/2020, Additional history exists SDOH Screening 06/06/2025 06/06/2024 Depression Screening 06/18/2025 06/18/2024, 06/19/19 Disability Screening 06/18/2025 06/18/2024 Tobacco Screening 07/18/2025 07/18/2024 Dental X-Ray: Full Mouth 01/16/2027 024, 07/25/2020, 05/05/2015 Lipid Panel 08/25/2028 08/26/2023, 0 09/2023, 03/05/2022 RSV Patients and Patients Aged [...] Author Blood Pressure < 140/90 Blood Pressure 148/84( 025 8:10 AM EDT) No Piers-Gambl e, Victoria, PharmD Reduce tobacco use (cigarettes, smokeless, etc) Tobacco Use No Piers-Gambl e, Victoria, PharmD Procedures Procedure Name Priority Date/Time Associated Diagnosis Comments PERIODIC ORAL EVALUATION - ESTABLISHED PATIENT Routine 07/18/2024 8:00 AM EDT CASE PRESENTATION, DETAILED AND EXTENSIVE TREATMENT PLANNING Routine 07/18/2024 8:00 AM EDT ORAL HYGIENE INSTRUCTIONS Routine 07/18/2024 8:00 AM EDT Dental calculus Dental plaque PROPHYLAXIS - ADULT Routine 07/18/2024 8 :00 AM EDT Dental calculus Dental plaque HIGH SENSITIVITY TROPONIN I Routine 07/15/2024 3:56 AM EDT XR CHEST 1 VIEW Routine 07/15/2024 1:48 AM EDT CBC WITH AUTO DIFFERENTIAL Routine 07/15/2024 1:22 AM EDT COMPREHENSIVE METABOLIC PANEL Routine 07/15/2024 1:22 AM EDT HIGH SENSITIVITY TROPONIN I Routine 07/15/2024 1:22 AM EDT SARS COV2/INFLUENZA A/B AND RSV RNA QL NAAT Routine 07/15/2024 1:22 AM EDT XR HAND 3+ VIEWS BILATERAL Routine 06/23/2024 6:47 AM EDT DEXAMETHASONE Routine 06/12/2024 8:24 AM EDT CORTISOL RANDOM Routine 06/12/2024 8:24 AM EDT HEPATITIS C AB W/REFL TO HCV RNA, QN, PCR Routine 02/28/2024 9:26 AM EST Routine screening for STI (sexually transmitted infection) HIV 1/2 ANTIGEN/ANTIBODY, FOURTH GENERATION W/RFL Routine 02/28/2024 9:26 AM EST Routine screening for STI (sexually transmitted infection) INTRAORAL - COMPLETE SERIES OF RADIOGRAPHIC IMAGES Routine 01/16/2024 8:00 AM EST LIPID PANEL, STANDARD Routine 08/26/2023 9:11 AM EDT HM COLONOSCOPY Routine 08/24/2023 2:44 PM EDT from Last 3 Months or Most Recently Relevant to Health Maintenance Results * (ABNORMAL) High Sensitivity Troponin I (07/15/2024 3:56 AM EDT) Only the most recent of2 resultswithin the time period is included. TROPONIN I HIGH SENSITIVITY 43.3(H) <3.5 - 35.0 ng/L [facility] Comment:The Lamb high sens itivity Troponin-I results should beused in conjunction with other diagnostic information suchas ECG, clinical observations and information, and patientsymptoms to aid in the diagnosis of [place]. 07/15/2024 3:56 AM EDT 07/15/2024 4:02 AM EDT us Generic External Data Provider LAB BLOOD ORDERAB LES Final Result [facility] [address] [place] [phone] * XR Chest 1 View (07/15/2024 1:48 AM EDT) Anatomical Region Laterality Modality Chest Radiographic Ursula ging 07/15/2024 1:48 AM EDT Narrative 07/15/2024 1:49 AM EDT ? [facility] ?[address] ?[place] [address] ?XRay Report ? Signed ? Patient: Samson Mauri,Yuri ? MR#: [id number] ? : 1970 ?Acct:[id number] ? Age/Sex: 54 / M ?ADM Date: 05/25/25 ? Loc: HO.ED ? Attending Dr: ? Ordering Physician: Javed Olsen MD ?? Date of Service: 07/15/24 ?? Procedure(s): XR chest 1V ?? Accession Number(s): [id number] ? cc: Mirtha Lunsford MD; Javed Olsen MD ? CLINICAL HISTORY: cough, sob ? 1 view chest x-ray. ? Comparison: CR/SR - XR CHEST 1V - 10/18/23 03:21 EDT ? Findings: ?? No consolidation, pneumothorax, or effusion. Bronchial wall thickening ?? redemonstrated, unchanged. Heart size normal. ?? Surgical hardware identified over the cervical spine. ? Impression: ?? 1. Bilateral bronchial wall thickening redemonstrated. No focal pulmonary ?? consolidation. No interval change. ? This document has been electronically signed by: Adrian Park MD on ?? 07/15/2024 01:48:47 ? Dictated By: ?Adrian Park MD ? Signed By: ?<Electronically signed by Adrian Park MD in OV> ? 07/15/24 0149 ? DD/ 0148 ? TD/TT: 07/15/24 0148 ? Tube Bending Machine Operator: ? Procedure Note Becky Hicks - 07/15/2024 [place] [address] XRay Report Signed Patient: Yuri Stokes MR#: [id number] : 1970Acct:[id number] Age/Sex: 54 / MADM Date: 07/15/24 Loc: HO.ED Attending Dr: Ordering Physician: Javed Olsen MD Date of Service: 07/15/24 Procedure(s): XR chest 1V Accession Number(s): [id number] cc: Mirtha Lunsford MD; Javed Olsen MD CLINICAL HISTORY: cough, sob 1 view chest x-ray. Comparison: CR/SR - XR CHEST 1V - 10/18/23 03:21 EDT Findings: No consolidation, pneumothorax, or effusion. Bronchial wall thickening redemonstrated, unchanged. Heart size normal. Surgical hardware identified over the cervical spine. Impression: 1. Bilateral bronchial wall thickening redemonstrated. No focal pulmonary consolidation. No interval change. This document has been electronically signed by: Adrian Park MD on 07/15/2024 01:48:47 Dictated By: Adrian Park MD Signed By: <Electronically signed by Adrian Park MD in OV> 07/15/24 014 DD/ 7 TD/TT: 07/15/24147 Tube Bending Machine Operator: [facility] External Provider IMG XR PROCEDURES Edited Result - Final * SARS-CoV-2 RNA, Influenza A/B, and RSV RNA, Ql NAAT (07/15/2024 1:22 AM EDT) Influenza A PCR NEGATIVE Negative [facility] Influenza B PCR NEGATIVE Negative [facility] Resp Syncy Virus RNA Qual PCR NEGATIVE Negative [facility] SARS COV2 PCR NEGATIVE Negative [facility] Comment:All test results mus t be correlated with clinical findings.Negative results do not preclude SARS-CoV2, influenza Avirus, influenza B virus and/or RSV infectionand should not be used as the sole basis for treatment orother patient management decisions. Negative results must becombined with clinical observations, patient history, andepidemiological information.This test has not been evaluated for monitoring treatment ofinfection.This test has been authorized by the FDA under an EmergencyUse Authorization (EUA) for use by authorized laboratories.Testing performed on the [employer] GeneXpert utilizingreal-time RT-PCR.All SARS CoV2 and positive influenza A/B results arereported to [facility]. 07/15/2024 1:22 AM EDT 07/15/2024 1:28 AM EDT Generic External Data Provider LAB MICROBIOLOGY - GENERAL ORDERABLES Final Result [facility] [address] [place] [address] [phone] * (ABNORMAL) CBC auto differential (07/15/2024 1:22 AM EDT) White Blood Count 8.1 4.8 - 10.8 X10*3/uL [facility] Red Blood Count 4.78 4.60 - 5.80 X10*6/uL [facility] Hemoglobin 15.1 14.0 - 18.0 g/dl [facility] Hematocrit 44.5 42.0 - 52.0 % [facility] Mean Corpuscular Volume 93.1 80.0 - 98.0 fL [facility] Mean Corpuscular Hemoglobin 31.6 27.0 - 33.0 pg [facility] Mean Corpuscular HGB Conc 33.9 31.0 - 36.0 g/dl [facility] Red Cell Distribution Width 13.2 11.0 - 16.0 % [facility] Platelet Count 210 160 - 400 X10*3/uL [facility] Mean Platelet Volume 11.5 9.4 - 12.4 fL [facility] Neutrophils Percent Auto 52.6 45 - 73 % [facility] Imm Gran Pct Auto 1.1(H) 0.0 - 0.4 % [facility] Lymphocytes Percent Auto 30.3 20 - 40 % [facility] Monocytes Percent Auto 10.8 2 - 11 % [facility] Eosinophils Percent Auto 4.3(H) 0 - 4 % [facility] Basophils Percent Auto 0.9 0 - 2 % [facility] NRBC Pct Auto 0.0 0.0 - 0.2 /100WBC [facility] Neutrophils Absolute Auto 4.3 2.0 - 8.3 x10*3/uL [facility] Imm Gran Abs Auto 0.09(H) 0.00 - 0.03 X10*3/uL [facility] Lymphocytes Absolute Auto 2.5 1.2 - 4.9 X10*3/uL [facility] Monocytes Absolute Auto 0.9 0.1 - 1.2 X10*3/uL [facility] Eosinophils Absolute Auto 0.4 0.0 - 0.4 X10*3/uL [facility] Basophils Absolute Auto 0.1 0.0 - 0.2 X10*3/uL [facility] NRBC Abs Auto 0.000 0.0 - 0.012 X10*3/uL [facility] 07/15/2024 1:22 AM EDT 07/15/2024 1:28 AM EDT us Generic External Data Provider LAB BLOOD ORDERAB LES Final Result [facility] [address] [place] [address] [phone] * (ABNORMAL) Comprehensive Metabolic Panel (07/15/2024 1:22 AM EDT) Sodium 141 135 - 145 mmol/L [facility] Potassium 4.1 3.3 - 5.1 mmol/L [facility] Chloride 110(H) 96 - 108 mmol/L [facility] Carbon Dioxide 20(L) 22 - 29 mmol/L [facility] Anion Gap 15 12 - 20 [facility] Urea Nitrogen (BUN) 15 9 - 16 mg/dL [facility] Creatinine, Serum 1.06 0.5 - 1.4 mg/dL [facility] Creatinine Clr Calc Pharmacy 88.4 [facility] Comment:eGFR (calculated fro m the MDRD study equation) and eCrCl(calculated from the Cockcroft-Gault equation) are based ondifferent parameters and may not yield comparable results.If eCrCl result is absurd, please check patient'sheight/weight. Estimated Glomerular Filt Rate >60 [facility] Comment:Chronic Kidney Disea se: Estimated GFR < 60 mL/min/1.81n5Kkantn Kidney Disease: Estimated GFR < 15 mL/min/1.73m2 Glucose 93 60 - 115 mg/dL [facility] Calcium 8.8 8.4 - 10.2 mg/dL [facility] Bilirubin, Total 0.3 0.0 - 1.0 mg/dL [facility] Aspartate Amino Transferase 29 5 - 37 U/L [facility] Alanine Aminotransferase 34 0 - 40 U/L [facility] Total Protein 6.8 6.5 - 8.0 g/dL [facility] Albumin Level 4.1 3.5 - 5.0 g/dL [facility] Alkaline Phosphatase 113 39 - 117 U/L [facility] [facility] 07/15/2024 1:22 AM EDT 07/15/2024 1:28 AM EDT us Generic External Data Provider LAB BLOOD ORDERAB LES Final Result [facility] [address] [place] [address] [phone] * XR Hand 3+Views Bilateral (06/23/2024 6:47 AM EDT) Anatomical Region Laterality Modality Upper Extremities, Hand Bilateral Radiogra phic Imaging 06/23/2024 6:47 AM EDT Narrative 06/23/2024 6:48 AM EDT ? [facility] ?[address] ?[place] [address] ?XRay Report ? Signed ? Patient: Yuri Stokes ? MR#: [id number] ? : 1970 ?Acct:[id number] ? Age/Sex: 54 / M ?ADM Date: 06/20/24 ? Loc: HO.NEURO ? Attending Dr: Edwige Varela MD ? Ordering Physician: Edwige Rodriguez ?? Date of Service: 06/20/24 ?? Procedure(s): XR Hand Bilat min 3v ?? Accession Number(s): [id number] ? cc: Mirtha Lunsford MD; Edwige Rodriguez [...] MD in OV> ?06/23/24 0648 ? DD/ ? TD/TT: 06/23/24 0647 ? Tube Bending Machine Operator: ? Procedure Note Kurt, Image - 06/23/[address] [address] XRay Report Signed Patient: Yuri Stokes MR#: [id number] : 1970Acct:[id number] Age/Sex: 54 / MADM Date: 06/20/24 Loc: HO.NEURO Attending Dr: Edwige Varela MD Ordering Physician: Edwige Rodriguez Date of Service: 06/20/24 Procedure(s): XR Hand Bilat min 3v Accession Number(s): [id number] cc: Mirtha Lunsford MD; Edwige Rodriguez CLINICAL [...] signed by Kam Avina MD in OV> 06/23/2448 DD/ 6 TD/TT: 06/23/24646 Tube Bending Machine Operator: [facility] External Provider IMG XR PROCEDURES Edited Result - Final * Dexamethasone (06/12/2024 8:24 AM EDT) Dexamethasone 583 ng/dL [facility] Comment:Reference Ranges for Dexamethasone:Baseline: Less than 20 ng/dL1 mg dexamethasone overnight: 180-550 ng/dL (8:00-10:00 AM)This test was developed and its analytical performancecharacteristics have been determined by [employer].It has not been cleared or approved by the FDA. This assayhas been validated pursuant to the CLIA regulations and isused for clinical purposes.THIS TEST WAS PERFORMED AT:[facility] [id number] [place] [address]CLPLXOREN FRANKLIN MD,PHD,CHAD 06/12/2024 8:24 AM EDT 06/12/2024 8:24 AM EDT Generic External Data Provider LAB BLOOD ORDERAB LES Final Result Performing Organization Address [facility] de Phone Number [facility] [address] [place] [phone] * Cortisol Random (06/12/2024 8:24 AM EDT) Cortisol Random 1.2 ug/dL [facility] Comment:Reference Range*: Be fore 10 am 6.2-19.4 ug/dL After 5 pm 2.3-11.9 ug/dL*Please interpret above results accordingly.This test was performed using the Col[employer] chemiluminescentmethod. Values obtained from different assay methods cannotbe used interchangeably.Patients receiving fludrocortisone, prednisolone orprednisone may show artificially elevated cortisol valuesdue to cross-reactivity. 06/12/2024 8:24 AM EDT 06/12/2024 8:24 AM EDT Generic External Data Provider LAB BLOOD ORDERAB LES Final Result Performing Organization Address [facility] Co de Phone Number [facility] [address] [place] [phone] * Hepatitis C Antibody with Reflex to HCV, RNA, Quantitative, Real-Time PCR (02/28/2024 9:26 AM EST) Hepatitis C Antibody Nonreactive Nonreactive [facility] Comment:Antibodies to HCV no t detected; does not exclude early acuteHCV infection. Blood Venous blood specimen / Unknown 02/28/2024 9:26 AM EST 02/28/2024 11:15 AM EST Mirtha Lunsford MD LAB BLOOD ORDERABLES Final Result Performing Organization Address [facility] Co de Phone Number [facility] [address] [place] [address] [phone] * HIV-1/2 Antigen and Antibodies, Fourth Generation, with Reflexes (02/28/2024 9:26 AM EST) Pathologist [facility] HIV AB/AG Nonreactive Nonreactive [facility] Comment:HIV-1 p24 Ag and/or HIV-1/HIV-2 Ab not detected.A test result that is nonreactive does not exclude thepossibility of exposure to or infection with HIV-1 and/orHIV-2. Nonreactive results in this assay for individualswith prior exposure to HIV-1 and/or HIV-2 may be due toantigen and antibody levels that are below the limit ofdetection of this assay.The [employer] HIV Ag/Ab Combo assay result andsupplemental assay results should be interpreted inconjunction with the patient's clinical presentation,history and other laboratory results. If the results areinconsistent with clinical evidence, additional testing issuggested to confirm the result. Blood Venous blood specimen / Unknown 02/28/2024 9:26 AM EST 02/28/2024 11:15 AM EST Mirtha Lunsford MD LAB BLOOD ORDERABLES Final Result Performing Organization Address [facility] Co de Phone Number [facility] [address] [place] [address] [phone] * Lipid Panel, Standard (08/26/2023 9:11 AM EDT) Triglycerides 78 <150 mg/dL [facility] Comment:Desirable Triglyceri de: less than 150 mg/dLBorderline High Triglyceride 150-199 mg/dLHigh Triglyceride: 200-499 mg/dLVery High Triglyceride: greater than or equal to 5OO mg/dL Cholesterol 183 <200 mg/dL [facility] Comment:Desirable Cholestero l: less than 200 mg/dLBorderline High Cholesterol: 200-239 mg/dLHigh Cholesterol: greater than 239 mg/dL LDL Cholesterol Calculated 90 <100 mg/dL [facility] Comment:Desirable LDL: less than 100 mg/dLNear Optimal/Above Optimal LDL: 110- 129 mg/dLBorderline High LDL: 130-159 mg/dLHigh LDL: 160-189 mg/dLVery High LDL: greater than or equal to 190 mg/dL HDL Cholesterol 78 >40 mg/dL [facility] Comment:Desirable HDL: great er than 40 mg/dL Note: This HDL assay may give artificially low results in patients with liver disease. 08/26/2023 9:11 AM EDT 08/26/2023 11:07 AM EDT Mirtha Lunsford MD LAB BLOOD ORDERABLES Final Result Performing Organization Address City/State/[facility] Co de Phone Number [facility] [address] [place] [phone] * (ABNORMAL) Colonoscopy (07/08/2023) Colonoscopy Abnormal( A) Normal Comment:Multiple polyps with Dr. 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
== END 2024-07-27 10:41 | disposition home or self-care (01) ==
LOC: HO.HPS 09:44
PROVIDERS: PCP Family Medicine; Referring Provider Family Medicine; Visit Provider Physician Assistant Medical
DX: F17.210 Nicotine dependence, cigarettes, uncomplicated (principal)
CPT/HCPCS: G0296

== ENCOUNTER 2024-07-27 09:56 | Outpatient (REF) | payer MEDICAID, SELFPAY ==
--- NOTE | ~2024-07-27 | CT_ITS ---
CLINICAL HISTORY: F17.210 - Nicotine dependence, cigarettes, uncomplicated CT lung cancer screening (LDCT) Comparison: None Technique: Axial CT images of the chest using low-dose technique. Referring provider counseled the patient on shared decision-making for LDCT screening. Additional counseling was provided on smoking cessation. Effective radiation dose total: DLP 56.9 mGycm, CTDIvol 1.7 mGy. Findings: Pulmonary nodules: Ovoid left lower lobe nodule, axial 85 measuring 5 mm. Incidental pulmonary findings: Mild airway thickening. Minimal reticular prominence in the subpleural lower lobes. Nonpulmonary findings: Coronary artery calcifications: Minimal Limited upper abdomen: Unremarkable Other: None Impression: LungRADS 2 - Benign Appearance: Continue annual screening with low dose Chest CT in 12 months. Baseline study with 5 mm left lower lobe nodule. ##L2## Category 1: Normal; continue annual screening Category 2: Benign appearance or behavior, continue annual screening Category 3: Probably benign, [address] recommended Category 4A: Suspicious, [address] recommended; may consider PET/CT Category 4B: Suspicious, Additional diagnostics and/or tissue sampling recommended Category 4X: Suspicious, Additional diagnostics and/or tissue sampling recommended Category 0: Recalls (incomplete screen due to Incomplete coverage, Noise, Respiratory motion, Expiration, Obscured by acute abnormality) This document has been electronically signed by: Jonathan Aceves MD on 07/27/2024 12:28:01
== END 2024-07-27 09:57 | disposition home or self-care (01) ==
LOC: HO.CT 09:56
PROVIDERS: PCP Nurse Practitioner Family; Visit Provider Physician Assistant Medical
DX: Z12.2 Encounter for screening for malignant neoplasm of respiratory organs (principal); F17.210 Nicotine dependence, cigarettes, uncomplicated
CPT/HCPCS: 71271; G0296

== ENCOUNTER → 2024-07-27 09:57 | Outpatient (BNV) | payer MEDICAID, SELFPAY | PROVIDERS: PCP Nurse Practitioner Family; Visit Provider Radiology Vascular & Interventional Radiology | DX: F17.210 Nicotine dependence, cigarettes, uncomplicated (principal) | CPT/HCPCS: 71271 ==

== ENCOUNTER 2024-08-29 10:30 | Outpatient (AMB) | payer MEDICAID, SELFPAY ==
--- NOTE | 2024-08-29 10:34 | A.OFFVIS_ITS ---
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 EMG Done at [facility]. Patient reports that he has had ongoing symptoms for about 3 months now. He has had multiple surgeries on his back and neck - done at [facility] about 5+ years ago. He describes his symptoms as tightness in his palm worsened with full finger extension of fingers. He has increased pain when opening jars, but he is not dropping things at this time. He is asking if we treat gout or if we can provide him with a referral to a provider who does treat gout. IMPRESSION: 1. This is an abnormal nerve conduction study. 2. There is electrodiagnostic evidence for left moderate-severe in right mild median neuropathy at the wrist, consistent with carpal tunnel syndrome. 3. There is no electrodiagnostic evidence for ulnar neuropathy. 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 EMG Done at [facility]. Patient reports that he has had ongoing symptoms for about 3 months now. He has had multiple surgeries on his back and neck - done at [facility] about 5+ years ago. He describes his symptoms as tightness in his palm worsened with full finger extension of fingers. He has increased pain when opening jars, but he is not dropping things at this time. He is asking if we treat gout or if we can provide him with a referral to a provider who does treat gout. IMPRESSION: 1. This is an abnormal nerve conduction study. 2. There is electrodiagnostic evidence for left moderate-severe in right mild median neuropathy at the wrist, consistent with carpal tunnel syndrome. 3. There is no electrodiagnostic evidence for ulnar neuropathy. [facility] Medical History (Updated 08/29/24 @ 18:02 by RAMANDEEP Landry) History of adenomatous polyp of colon Nicotine dependence, cigarettes, uncomplicated History of rectal polyps Asthma Asthma with exacerbation Hypertension 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 Arthritis Surgical History (Updated 07/27/24 @ 08:02 by Joyce Espino PA-C) History of rectal sphincterotomy History of hydrocelectomy History of colonoscopy History of left nephrectomy H/O neck surgery Previous back surgery Family History Mother Hypertension Asthma Father Medical history unknown Social History (Updated 07/27/24 @ 09:54 by Joyce Espino PA-C) Household Members: None Housing: Apartment Do you presently have visiting nurse or other home services: No Alcohol intake: current Alcohol intake frequency: holidays/special occasions only Alcohol type: beer Patient Tobacco Use Status: Current everyday Tobacco user Tobacco use type: Cigarette Years Smoked: (onset 18, 1ppd x 36yrs, 30+PYH) e-Cigarette/Vaping Use: Former Use Second Hand Smoke Exposure: No service: No Current occupational status: unemployed 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 He reports constant numbness and tingling in his hands, described as a sleepy sensation upon waking, and difficulty with hand function due to a nut sensation. A nerve conduction study confirmed bilateral carpal tunnel syndrome, and there is also nerve compression at the neck complicating symptom assessment. The patient has a history of multiple surgeries, though specific details were not provided. He inquired about gout, which is managed by his primary care physician. Review of Systems - Neurological: Reports constant numbness and tingling in hands, difficulty with hand function. - Musculoskeletal: Reports neck pain with limited range of motion to one side. Physical Exam - Neurological: Sensation in bilateral hands assessed, numbness noted in the median nerve distribution no thenar or intrinsic wasting musculoskeletal: Patient is able to make a closed fist and extend all digits of the bilateral hands fully Results - Nerve conduction study: Confirmed bilateral carpal tunnel syndrome. Plan The plan involves surgical intervention for bilateral carpal tunnel syndrome, beginning with the right hand due to more pronounced symptoms. The procedure will be conducted under local anesthesia, facilitating a quicker recovery and allowing for the second hand surgery to be scheduled soon after the first, contingent on recovery progress. Postoperative care includes maintaining a clean and dry dressing for five days, followed by careful wound management to prevent infection. The patient should avoid submerging the hand in water for three weeks and refrain from lifting heavy objects with the operative hand for four weeks. The patient was informed of the surgical risks, including potential injury to blood vessels, nerves, tendons, and bones, as well as infection and surgical failure, though these risks are low. A follow-up appointment is scheduled two weeks post-surgery for suture removal and healing assessment. I educated the patient about the condition. I discussed both operative and nonoperative treatment options. The patient would like to proceed with surgery. The risks and benefits of operative treatment were discussed with the patient and the patient wishes to proceed with surgery. These risks include, but are not limited to, risk of damage to blood vessels, nerves, tendons, infection, recurrence, incomplete relief of preoperative symptoms, persistent pain, possible need for further surgery, and the risks associated with regional blocks and/or anesthesia. Plan is to take the patient to the operating room at some point in the next few weeks for the following procedures: 1. Right carpal tunnel release under local All of the preoperative paperwork including the consent was discussed today. All of the patient's questions were answered in the clinic today. The patient understands that they will be in contact with our rn surgical pcu to discuss scheduling their procedure. Patient denies diabetes, blood thinners, asthma, heart issues, lung issues, kidney issues, or current smoking. Discussion Notes I discussed with the patient the diagnosis of bilateral carpal tunnel syndrome and the necessity of surgical intervention, explaining that the procedure would be performed under local anesthesia. We reviewed the postoperative care requirements, including keeping the dressing clean and dry, avoiding water immersion, and lifting restrictions. I informed the patient of the risks associated with the surgery, including potential injury to blood vessels, nerves, tendons, and bones, as well as infection and surgical failure, though these risks are low. The patient was advised to follow up two weeks post-surgery for suture removal and to assess healing progress. Coding Level of Care Code New Pt Level 4 (53987) Diagnoses Bilateral carpal tunnel syndrome G56.03
--- OUTSIDE RECORDS SUMMARY | 2024-08-29 11:27 | XMS_ITS | Encounter Summary ---
Author Organization [facility] Address [address] [place] [address] Phone Care Team Providers Care Networking Specialist Name Role Phone Tavia Mosquera Primary Care Provider Encounter Details Date Type Department Care Team (Late st Contact Info) Description 08/21/2024 Orders Only [facility] [address] [facility] [address] [place] [address] Dmitri Sequeira MD [address] [facility] [address] [place] [address] Right kidney absent Social History Tobacco Use Types Packs/Day Years Used Date Smoking Tobacco: Every Day Cigarettes 0.3 42.5 Started: 02/21/1982 Alcohol Use Standard Drinks/Week Comments Yes 0 (1 standard drink = 0.6 oz pure alcohol) Alcoholic Drinks/day: Occasional social drink Sex and Gender Information Value Date Recorded Sex Assigned at Not on file Legal Sex Male 4:41 PM EST Gender Identity Not on file Sexual Orientation Not on file documented as of this encounter Plan of Treatment Not on file documented as of this encounter Visit Diagnoses Diagnosis Right kidney absent documented in this encounter Care Teams Networking Specialist Relationship Specialty Start Date End Date Tavia Mosquera [address] [place] [address] PCP - General 04/29/22 documented as of this encounter
--- OUTSIDE RECORDS SUMMARY | 2024-08-29 11:27 | XMS_ITS | Patient Health Record ---
Author Organization [facility] Address [address] [place] [address] Care Team Providers Care Security Installation Sales Technician Name Role Phone Aleksandr Spangler Jr Reason For Referral No Information Plan Of Treatment No Information
--- OUTSIDE RECORDS SUMMARY | 2024-08-29 11:27 | XMS_ITS | Clinical Summary ---
Author Organization [employer] Address [address] [place] [address] Care Team Providers Care Dermatologist And Dermatopathologist Name Role Phone Mirtha Lunsford MD Primary Care Provider [phone] Victoria Radford PharmD Unavailable [phone] Acosta Sinha SENIOR CIVIL ENGINEER Unavailable Unavailable Flip Wan MD Unavailable [phone] Dmitri Sequeira MD Unavailable [phone] Stephane Pisano MD Unavailable Melvin Claros MD Unavailable Artur Aguilar MD Unavailable [phone] Allergies Active Allergy Reactions Criticality Noted [...] daily. 42 g 2 12/19/19 24 Active Combivent Respimat 20-100 MCG/ACT inhalerIndicati ons:Mild intermittent asthma without complication INHALE 1 PUFF BY INHALATION ROUTE 4 TIMES EVERY DAY MAY TAKE ADDITIONAL PUFFS NEEDED NOT TO EXCEED 6 PUFFS IN 24HRS 4 g 7 04/03/19 25 Active lisinopril 20 MG tabletIndicatio ns:Essential [...] SPASMS 60 tablet 1 06/21/19 25 Active atorvastatin (Lipitor) 80 MG tabletIndicatio ns:Dyslipidemia TAKE 1 TABLET BY MOUTH EVERY MORNING 90 tablet 1 07/26/19 25 Active albuterol (Ventolin HFA) 108 (90 Base) MCG/ACT inhalerIndicati ons:Moderate persistent asthma without complication INHALE 2 PUFFS BY MOUTH EVERY 4 HOURS NEEDED FOR WHEEZING OR SHORTNESS OF BREATH 18 g 1 08/01/19 25 Active pregabalin (Lyrica) 150 MG capsuleIndicati ons:Chronic bilateral low back pain, unspecified whether sciatica present TAKE 1 CAPSULE BY MOUTH TWICE DAILY IN THE MORNING AND IN THE EVENING 60 capsule 08/03/19 25 Active lidocaine (Lidoderm) 5 % patchIndication s:Sacroiliac joint dysfunction APPLY 1 PATCH TOPICALLY TO SKIN, LEAVE ON FOR 12 HOURS AND OFF FOR 12 HOURS DIRECTED 30 patch 1 08/14/19 25 Active mometasone (Elocon) 0.1 % creamIndication s:Rash APPLY TOPICALLY TO THE AFFECTED AREA(S) EVERY DAY 45 g 1 08/14/19 25 Active loratadine (Claritin) 10 MG tabletIndicatio ns:Seasonal allergies TAKE 1 TABLET BY MOUTH EVERY MORNING 90 tablet 1 08/29/19 25 Active loratadine (Claritin) 10 MG tabletIndicatio ns:Seasonal allergies TAKE 1 TABLET BY MOUTH EVERY MORNING 90 tablet 1 03/06/19 25 2024 Discontinued lidocaine (Lidoderm) 5 % patchIndication s:Sacroiliac joint dysfunction APPLY 1 PATCH TOPICALLY TO SKIN, LEAVE ON FOR 12 HOURS AND OFF FOR 12 HOURS DIRECTED 30 patch 1 04/27/19 25 2024 Discontinued albuterol (Ventolin HFA) 108 (90 Base) MCG/ACT inhalerIndicati ons:Moderate persistent asthma without complication INHALE 2 PUFFS BY MOUTH EVERY 4 HOURS NEEDED FOR WHEEZING OR SHORTNESS OF BREATH 18 g 1 05/19/19 25 2024 Discontinued mometasone (Elocon) 0.1 % creamIndication s:Rash APPLY TOPICALLY TO THE AFFECTED AREA(S) ONCE DAILY 45 g 1 06/01/19 25 2024 Discontinued pregabalin (Lyrica) 150 MG capsuleIndicati ons:Chronic bilateral low back pain, unspecified whether sciatica present TAKE 1 CAPSULE BY MOUTH TWICE DAILY IN THE MORNING AND IN THE EVENING 60 capsule 07/04/19 25 2024 Discontinued Active Problems Problem Noted [...] pain 04/16/2024 Overview (04/16/2024): -Patient followed at [facility] with Dr. Agueda Claros DO. [...] and nutrition interventions discussed. -Patient followed at [facility] with Dr. Agueda Claros DO. [...] retention. I spoke with JULIETA Wood at [facility] pain clinic and they want the last CT scan faxed at [phone], they will fu with patient this week. Order lumbar MRI ro cord compromise Other specified health status 07/02/2022 Overview (06/18/2024): -next physical exam due after 06/18/25 -eye care facilitated by [facility] -dental home is [facility] -health care proxy filed 12/19/23 Assessment & Plan (06/18/2024 3:03 PM EDT): -next physical exam due after 06/18/25 -eye care facilitated by [facility] -dental home is [facility] -health care proxy filed 12/19/23 Assessment & Plan (12/19/2023 9:30 AM EDT): -next physical exam due after 05/29/2024 -eye care facilitated by [facility] -dental home is [facility] -health care proxy filed 12/19/23 Assessment & Plan (05/30/2023 10:13 AM EDT): -next physical exam due after 02/28/2023 -eye care facilitated by [facility] -dental home is [facility] -health care proxy given on 05/30/2023 [...] benign adenoma. Biochemical workup showed mass not industrial truck mechanic including dexamethasone suppression test. Repeat CT done [...] benign adenoma. Biochemical workup showed mass not industrial truck mechanic including dexamethasone suppression test. Repeat CT done [...] benign adenoma. Biochemical workup showed mass not industrial truck mechanic including dexamethasone suppression test. Repeat CT done 2019. Follow up Dr. Aguilar 1 year recommended. -referral placed 05/30/23 Assessment & Plan (01/24/2023 9:53 AM EST): Seen by Dr. Aguilar 05/08/2021 (prior was followed by Dr. Moseley) Hx incidental finding right adrenal nodule found in CT preformed in ER Feb 2018 c/w benign adenoma. Biochemical workup showed mass not industrial truck mechanic including dexamethasone suppression test. Repeat CT done [...] plan. Moderate persistent asthma 02/24/2022 Overview (02/02/2024): -hotel night auditor Dr. Wan seen 02/02/24 -Well controlled on current regimen of Xolair, Combivent, Advair, albuterol MDI. -last prednisone use 12/28/23 for exacerbation, given by pulmonary Assessment & Plan (06/18/2024 3:06 PM EDT): -hotel night auditor Dr. Wan seen 02/02/24 -Well controlled on current regimen of Xolair, Combivent, Advair, albuterol MDI. -last prednisone use 12/28/23 for exacerbation, given by pulmonary Assessment & Plan (02/23/2024 10:09 AM EST): -hotel night auditor Dr. Wan seen 02/02/24 -Well controlled on current regimen of Xolair, Combivent, Advair, albuterol MDI. -last prednisone use 12/28/23 for exacerbation, given by pulmonary Assessment & Plan (05/30/2023 12:31 PM EDT): -hotel night auditor Dr. Wan seen 12/2022 -Well controlled on current regimen of Xolair, Combivent, Advair, albuterol MDI. Continue current Assessment & Plan (01/24/2023 9:53 AM EST): -hotel night auditor Dr. Wan seen 12/2022 -Well controlled on current regimen of Xolair, Combivent, Advair, albuterol MDI. Continue current Assessment & Plan (12/20/2022 8:01 PM EDT): Few wheezing on lung exam,reports feeling well -offered NBZ tx here but refuse states will get at home ,and got pump tx before coming that may cause elevated HR -continue his regular inh and montelukast -continue care w hotel night auditor -planned apt for next month -advised to get booster for COVID 19 at vaccine clinic, pt s/p p20 and flu vaccine already Assessment & Plan (11/01/2022 9:02 AM EDT): -hotel night auditor Dr. Wan -continue Flovent -continue Singulair -continue albuterol prn Assessment & Plan (06/28/2022 10:09 AM EDT): Normal lung exam. advised to call Dr. Wan, his hotel night auditor, for kristan't. continue Flovent, Singulair, may use [...] Essential hypertension 08/19/2020 Overview (06/18/2024): -followed by [facility] -echo 03/31/23 EF 60-65% no changes compared to02/2017 -Blood pressure is slightly above goal, recommended monitoring at home. -Continue lifestyle modifications -Continue current medications -cardiology note from 04/12/23, no changes, follow up 6 months Assessment & Plan (06/18/2024 3:06 PM EDT): -followed by [facility] -echo 03/31/23 EF 60-65% no changes compared to02/2017 -Blood pressure is slightly above goal, recommended monitoring at home. -Continue lifestyle modifications -Continue current medications -cardiology note from 04/12/23, no changes, follow up 6 months Assessment & Plan (11/03/2023 10:12 AM EDT): -followed by [facility] -echo 03/31/23 EF 60-65% no changes compared to02/2017 -Blood pressure is at goal -Continue lifestyle modifications -Continue current medications -cardiology note from 04/12/23, no changes, follow up 6 months Assessment & Plan (05/30/2023 12:31 PM EDT): -followed by [facility] -echo [...] as pharmacomtherapy, [facility] smoking cessation group, and [facility] pharmacy smoking cessation clinic -14mg and [...] as pharmacomtherapy, [facility] smoking cessation group, and [facility] pharmacy smoking cessation clinic -14mg and [...] as pharmacomtherapy, [facility] smoking cessation group, and [facility] pharmacy smoking cessation clinic -14mg and [...] diet and exercise,discussed healthy life style -discussed land classifier referral -referred today Acute dehydration 09/23/2022 10/27/2022 [...] is for one week only and not usp. Acute idiopathic gout involv ing toe of [...] Encounters Date Type Department Care Team Description 08/26/2024 Refill [facility] [address] [place] [address] [phone] Mirtha Lunsford MD Seasonal allergies 08/12/2024 Refill [facility] [address] [place] [address] [phone] Mirtha Lunsford MD Sacroiliac joint dysfunction; Rash 08/02/2024 Refill [facility] [address] [place] [address] [phone] Kalli Henderson MD Chronic bilateral low back pain, unspecified whether sciatica present 07/30/2024 Refill [facility] [address] [place] [address] [phone] Mirtha Lunsford MD Moderate persistent asthma without complication 07/24/2024 Refill [facility] [address] [place] [address] [phone] Victoria Radford, PharmD Dyslipidemia 07/18/2024 8:00 AM EDT Office Visit [facility] ADULT DENTAL [address] [place] [address] [phone] Rebecca Capps Dental calculus (Primary Dx); Dental plaque 07/15/2024 Orders Only GENERIC EXTERNAL DATA DEPARTMENT Provider, Generic External Data 07/03/2024 [facility] [address] [place] [address] [phone] Mirtha Lunsford MD Chronic bilateral low back pain, unspecified whether sciatica present 06/21/2024 Telephone [facility] [address] [place] [address] [phone] Mirtha Lunsford MD Lung screening referral 06/20/2024 Orders Only [facility] External Provider, [facility] 06/19/2024 Refill [facility] [address] [place] [address] [phone] Mirtha Lunsford MD Sacroiliac joint dysfunction 06/18/2024 9:15 AM EDT Office Visit [facility] [address] [place] [address] [phone] Mirtha Lunsford MD Lipoma, unspecified site (Primary [...] specified health status 06/18/2024 Travel 06/14/2024 Telephone [facility] [address] [place] [address] [phone] Mirtha Lunsford MD Chart[employer] 06/12/2024 Orders Only GENERIC EXTERNAL DATA DEPARTMENT Provider, Generic External Data 06/08/2024 Orders Only [facility] [address] [place] [address] [phone] Mirtha Lunsford MD Essential hypertension 06/07/2024 Refill [facility] [address] [place] [address] [phone] Victoria Radford, GypsyD Essential hypertension 06/06/2024 Patient Outreach [facility] [address] [place] [address] [phone] Mirtha Lunsford MD Pre-visit Planning (SDOH screening negative and Tobacco screening positive) 06/04/2024 Refill [facility] [address] [place] [address] [phone] Mirtha Lunsford MD Chronic bilateral low back pain, unspecified whether sciatica present 05/31/2024 Refill [facility] [address] [place] [address] [phone] Mirtha Lunsford MD Rash from Last 3 Months Immunizations Immunization Administration [...] 98 06/18/2024 9:04 AM EDT Temperature 37.1 C (98.7 F) 05/11/2024 10:22 AM EDT Respiratory Rate 20 06/18/2024 9:04 AM EDT [...] Description 02/11/2025 8:00 AM EST Office Visit [facility] ADULT DENTAL [address] [place] [address] Génesis Rebecca Health Maintenance Due Date Last Done Comments CT Colonography 1970 FIT DNA/Cologuard 1970 FIT 1970 FOBT 1970 Sigmoidoscopy 1970 Colonoscopy 08/23/2024 08/24/2023, 06/21, 07/08/2023, Additional history exists Colorectal Cancer Screening 08/23/2024 Influenza Vaccine (#1) 2024 , 11/01/2022, 02/18/2022, Additional history exists DTaP/Tdap/Td Vaccines (2 - Td or Tdap) [...] Hepatitis A Vaccines Completed 05/30/2023, 11/01/2022, 06/28/2022 COVID-19 Vaccine Completed 11/10/2023, 05/2022, 02/18/2022, Additional [...] HIGH SENSITIVITY 43.3(H) <3.5 - 35.0 ng/L [facility] Comment:The Lamb high sens itivity Troponin-I results should beused in conjunction with other diagnostic information suchas ECG, clinical observations and information, and patientsymptoms to aid in the diagnosis of CT. 07/15/2024 3:56 AM EDT 07/15/2024 4:02 AM EDT us Generic External Data Provider LAB BLOOD ORDERAB LES Final Result Performing Organization Address City/State/[facility] Co de Phone Number [facility] [address] [place] [phone] * XR Chest 1 View (07/15/2024 1:48 AM EDT) Anatomical Region Laterality Modality Chest Radiographic Ursula ging 07/15/2024 1:48 AM EDT Narrative 07/15/2024 1:49 AM EDT [place] [address] XRay Report Signed Patient: Yuri Stokes MR#: [id number] : 1970 Acct:[id number] Age/Sex: 54 / M ADM Date: 07/15/24 Loc: HO.ED Attending Dr: Ordering Physician: Javed Olsen MD Date of Service: 07/15/24 Procedure(s): XR chest 1V Accession Number(s): [id number] cc: Mirtha Lunsford MD; Javed Olsen MD [...] signed by Adrian Park MD in OV> 07/15/24148 DD/ 7 TD/TT: 07/15/24147 Manganese Breaker: Procedure Note Donotuseinterpreter, Image - 07/15/[address] [address] XRay Report Signed Patient: Yuri Stokes MR#: [id number] : 1970Acct:[id number] Age/Sex: 54 / MADM Date: 07/15/24 Loc: .ED Attending Dr: Ordering Physician: Javed Olsen MD Date of Service: 07/15/24 Procedure(s): XR chest 1V Accession Number(s): [id number] cc: Mirtha Lunsford MD; Javed Olsen MD [...] signed by Adrian Park MD in OV> 07/15/24148 DD/ 7 TD/TT: 07/15/24147 Manganese Breaker: [facility] External Provider IMG XR PROCEDURES Edited Result - Final * SARS-CoV-2 RNA, Influenza A/B, and RSV RNA, Ql NAAT (07/15/2024 1:22 AM EDT) Pathologist [facility] Influenza A PCR NEGATIVE Negative [facility] Influenza B PCR NEGATIVE Negative [facility] Resp Syncy Virus RNA Qual PCR NEGATIVE Negative [facility] SARS COV2 PCR NEGATIVE Negative [facility] Comment:All test results mus t be [...] use by authorized laboratories.Testing performed on the [email or web address] GeneXpert utilizingreal-time RT-PCR.All SARS CoV2 and positive influenza A/B results arereported to [facility]. 07/15/2024 1:22 AM EDT 07/15/2024 1:28 AM EDT us Generic External Data Provider LAB MICROBIOLOGY - GENERAL ORDERABLES Final Result [facility] [address] [place] [address] [phone] * (ABNORMAL) CBC auto differential (07/15/2024 1:22 AM EDT) [facility] White Blood Count 8.1 4.8 - 10.8 X10*3/uL [facility] Red Blood Count 4.78 4.60 - 5.80 X10*6/uL [facility] Hemoglobin 15.1 14.0 - 18.0 g/dl [facility] Hematocrit 44.5 42.0 - 52.0 % [facility] Mean Corpuscular Volume 93.1 80.0 - 98.0 fL [facility] Mean Corpuscular Hemoglobin 31.6 27.0 - 33.0 pg [facility] Mean Corpuscular HGB Conc 33.9 31.0 - 36.0 g/dl [facility] Red Cell Distribution Width 13.2 11.0 - 16.0 % [facility] Platelet Count 210 160 - 400 X10*3/uL [facility] Mean Platelet Volume 11.5 9.4 - 12.4 fL [facility] Neutrophils Percent Auto 52.6 45 - 73 % [facility] Imm Gran Pct Auto 1.1(H) 0.0 - 0.4 % [facility] Lymphocytes Percent Auto 30.3 20 - 40 % [facility] Monocytes Percent Auto 10.8 2 - 11 % [facility] Eosinophils Percent Auto 4.3(H) 0 - 4 % [facility] Basophils Percent Auto 0.9 0 - 2 % [facility] NRBC Pct Auto 0.0 0.0 - 0.2 /100WBC [facility] Neutrophils Absolute Auto 4.3 2.0 - 8.3 x10*3/uL [facility] Imm Gran Abs Auto 0.09(H) 0.00 - 0.03 X10*3/uL [facility] Lymphocytes Absolute Auto 2.5 1.2 - 4.9 X10*3/uL [facility] Monocytes Absolute Auto 0.9 0.1 - 1.2 X10*3/uL [facility] Eosinophils Absolute Auto 0.4 0.0 - 0.4 X10*3/uL [facility] Basophils Absolute Auto 0.1 0.0 - 0.2 X10*3/uL [facility] NRBC Abs Auto 0.000 0.0 - 0.012 X10*3/uL [facility] 07/15/2024 1:22 AM EDT 07/15/2024 1:28 AM EDT us Generic External Data Provider LAB BLOOD ORDERAB LES Final Result [facility] [address] [place] [phone] * (ABNORMAL) Comprehensive Metabolic Panel (07/15/2024 1:22 AM EDT) Pathologist [facility] Sodium 141 135 - 145 mmol/L [facility] Potassium 4.1 3.3 - 5.1 mmol/L [facility] Chloride 110(H) 96 - 108 mmol/L [facility] Carbon Dioxide 20(L) 22 - 29 mmol/L [facility] Anion Gap 15 12 - 20 [facility] Urea Nitrogen (BUN) 15 9 - 16 mg/dL [facility] Creatinine, Serum 1.06 0.5 - 1.4 mg/dL [facility] Creatinine Clr Calc Pharmacy 88.4 [facility] Comment:eGFR (calculated fro m the MDRD study equation) and eCrCl(calculated from the Cockcroft-Gault equation) are based ondifferent parameters and may not yield comparable results.If eCrCl result is absurd, please check patient'sheight/weight. Estimated Glomerular Filt Rate >60 [facility] Comment:Chronic Kidney Disea se: Estimated GFR < 60 mL/min/1.45z6Kghreg Kidney Disease: Estimated GFR < 15 mL/min/1.73m2 Glucose 93 60 - 115 mg/dL [facility] Calcium 8.8 8.4 - 10.2 mg/dL [facility] Bilirubin, Total 0.3 0.0 - 1.0 mg/dL [facility] Aspartate Amino Transferase 29 5 - 37 U/L [facility] Alanine Aminotransferase 34 0 - 40 U/L [facility] Total Protein 6.8 6.5 - 8.0 g/dL [facility] Albumin Level 4.1 3.5 - 5.0 g/dL [facility] Alkaline Phosphatase 113 39 - 117 U/L [facility] 07/15/2024 1:22 AM EDT 07/15/2024 1:28 AM EDT us Generic External Data Provider LAB BLOOD ORDERAB LES Final Result [facility] [address] [place] [phone] * XR Hand 3+Views Bilateral (06/23/2024 6:47 AM EDT) Anatomical Region Laterality Modality Upper Extremities, Hand Bilateral Radiogra phic Imaging 06/23/2024 6:47 AM EDT Narrative 06/23/2024 6:48 AM EDT [address] [address] XRay Report Signed Patient: Yuri Stokes MR#: [id number] : 1970 Acct:[id number] Age/Sex: 54 / M ADM Date: 06/20/24 Loc: HO.NEURO Attending Dr: Edwige Varela MD Ordering Physician: Edwige Rodriguez Date of Service: 06/20/24 Procedure(s): XR Hand Bilat min 3v Accession Number(s): [id number] cc: Mirtha Lunsford MD; Edwige Rodriguez CLINICAL [...] signed by Kam Avina MD in OV> 06/23/24 0648 DD/ 6 TD/TT: 06/23/24646 Manganese Breaker: Procedure Note Donotuseinterpreter, Image - 06/23/[address] [address] XRay Report Signed Patient: Yuri Stokes MR#: [id number] : 1970Acct:[id number] Age/Sex: 54 / MADM Date: 06/20/24 Loc: HO.NEURO Attending Dr: Edwige Varela MD Ordering Physician: Edwige Rodriguez Date of Service: 06/20/24 Procedure(s): XR Hand Bilat min 3v Accession Number(s): [id number] cc: Mirtha Lunsford MD; Edwige Rodriguez CLINICAL [...] in OV> 06/23/2448 DD/ 6 TD/TT: 06/23/24646 Manganese Breaker: [facility] External Provider IMG XR PROCEDURES Edited Result - Final * Dexamethasone (06/12/2024 8:24 AM EDT) [facility] Signature Dexamethasone 583 ng/dL [facility] Comment:Reference Ranges for Dexamethasone:Baseline: Less than 20 ng/dL1 mg dexamethasone overnight: 180-550 ng/dL (8:00-10:00 AM)This test was developed and its analytical performancecharacteristics have been determined by [employer].It has not been cleared or approved by the FDA. This assayhas been validated pursuant to the CLIA regulations and isused for clinical purposes.THIS TEST WAS PERFORMED AT:[employer] [id number] [place] [phone] FRANKLIN MD,PHD,CHAD 06/12/2024 8:24 AM EDT 06/12/2024 8:24 AM EDT Generic External Data Provider LAB BLOOD ORDERAB LES Final Result [facility] [address] [place] [phone] * Cortisol Random (06/12/2024 8:24 AM EDT) Pathologist [facility] Cortisol Random 1.2 ug/dL [facility] Comment:Reference Range*: Be fore 10 am 6.2-19.4 ug/dL After 5 pm 2.3-11.9 ug/dL*Please interpret above results accordingly.This test was performed using the Lamb chemiluminescentmethod. Values obtained from different assay methods cannotbe used interchangeably.Patients receiving fludrocortisone, prednisolone orprednisone may show artificially elevated cortisol valuesdue to cross-reactivity. 06/12/2024 8:24 AM EDT 06/12/2024 8:24 AM EDT us Generic External Data Provider LAB BLOOD ORDERAB LES Final Result Performing Organization Address [facility] Co de Phone Number [facility] [address] [place] [phone] * Hepatitis C Antibody with Reflex to HCV, RNA, Quantitative, Real-Time PCR (02/28/2024 9:26 AM EST) [facility] Hepatitis C Antibody Nonreactive Nonreactive [facility] Comment:Antibodies to HCV no t detected; does not exclude early acuteHCV infection. Blood Venous blood specimen / Unknown 02/28/2024 9:26 AM EST 02/28/2024 11:15 AM EST Mirtha Lunsford MD LAB BLOOD ORDERABLES Final Result Performing Organization Address [facility] Co de Phone Number [facility] [address] [place] [phone] * HIV-1/2 Antigen and Antibodies, Fourth Generation, with Reflexes (02/28/2024 9:26 AM EST) [facility] HIV AB/AG Nonreactive Nonreactive [facility] Comment:HIV-1 p24 Ag and/or HIV-1/HIV-2 Ab not detected.A test result that is nonreactive does not exclude thepossibility of exposure to or infection with HIV-1 and/orHIV-2. Nonreactive results in this assay for individualswith prior exposure to HIV-1 and/or HIV-2 may be due toantigen and antibody levels that are below the limit ofdetection of this assay.The Material [employer] Dish HIV Ag/Ab Combo assay result andsupplemental assay results should be interpreted inconjunction with the patient's clinical presentation,history and other laboratory results. If the results areinconsistent with clinical evidence, additional testing issuggested to confirm the result. Blood Venous blood specimen / Unknown 02/28/2024 9:26 AM EST 02/28/2024 11:15 AM EST us Mirtha Lunsford MD LAB BLOOD ORDERABLES Final Result [facility] [address] [place] [phone] [phone] * Lipid Panel, Standard (08/26/2023 9:11 AM EDT) Triglycerides 78 <150 mg/dL [facility] Comment:Desirable Triglyceri de: less than 150 mg/dLBorderline High Triglyceride 150-199 mg/dLHigh Triglyceride: 200-499 mg/dLVery High Triglyceride: greater than or equal to 5OO mg/dL Cholesterol 183 <200 mg/dL [facility] Comment:Desirable Cholestero l: less than 200 mg/dLBorderline High Cholesterol: 200-239 mg/dLHigh Cholesterol: greater than 239 mg/dL LDL Cholesterol Calculated 90 <100 mg/dL [facility] Comment:Desirable LDL: less than 100 mg/dLNear Optimal/Above Optimal LDL: 110- 129 mg/dLBorderline High LDL: 130-159 mg/dLHigh LDL: 160-189 mg/dLVery High LDL: greater than or equal to 190 mg/dL HDL Cholesterol 78 >40 mg/dL [facility] Comment:Desirable HDL: great er than 40 mg/dL Note: This HDL assay may give artificially low results in patients with liver disease. 08/26/2023 9:11 AM EDT 08/26/2023 11:07 AM EDT Mirtha Lunsford MD LAB BLOOD ORDERABLES Final Result [facility] [address] [place] [address] [phone] * (ABNORMAL) Colonoscopy (07/08/2023) Colonoscopy Abnormal( A) Normal Comment:Multiple polyps with Dr. Pisano, repeat 1 year Historical Provider HEALTH MAINTENANCE Edited Result - Final from Last 3 Months or Most Recently Relevant to Health Maintenance Insurance [facility] C3 [facility] MEDICAID STAND ADULT Advance Directives Documents on File Type Date Recorded Patient Safety Deposit Boxes Custodian Expl anation Advance Directives and Living Will 12/19/2023 Health Care Proxy 12/19/23 Care Teams Dermatologist And Dermatopathologist Relationship Specialty Start Date End Date Holder, MD Mirtha [address] [place] [address] PCP - General Family Medicine 03/04/15 Victoria Radford, GypsyD [address] [place] [address] Pharmacist Internal Medicine 08/03/22 Acosta Sinha FNP [address] [place] [address] Nurse Practitioner Family Medicine 01/17/23 Flip Wan MD [address] [place] [address] Pulmonary Disease 02/02/24 Dmitri Sequeira MD [address] [phone] Nephrology 02/10/24 Stephane Pisano MD [address] [place] [address] 3rd Floor [place], [place] General Surgery 02/10/24 Melvin Claros MD [address] [place], [place] Cardiology 04/16/24 Artur Aguilar MD [address] [place] [address] Endocrinology 05/31/24 Ghassan Fletcher Die InspectorFlavor Extractor 02/07/24June,Joyce Hoover PA-C Lung Cancer Screening Program Radiology 07/31/24
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
== END 2024-08-29 11:45 | disposition home or self-care (01) ==
LOC: HO.HOS 10:31
PROVIDERS: PCP Family Medicine
DX: G56.03 Carpal tunnel syndrome, bilateral upper limbs (principal)
CPT/HCPCS: 99204

== ENCOUNTER → 2024-08-29 10:30 | Outpatient (BNVA) | payer MEDICAID, SELFPAY | PROVIDERS: PCP Family Medicine | DX: R20.0 Anesthesia of skin (principal); R20.2 Paresthesia of skin; M79.641 Pain in right hand; M79.642 Pain in left hand; G56.03 Carpal tunnel syndrome, bilateral upper limbs | CPT/HCPCS: 99212 ==

== ENCOUNTER 2024-08-30 08:15 | Emergency (ER) | payer MEDICAID, SELFPAY ==
[2024-08-30] VITALS (8 sets, daily range): BP systolic 113–161; BP diastolic 67–74; PULSE 86–107; RESP 16–22; TEMP 35.9–36.8; O2SAT 93–97; BMI 33.8
--- NOTE | 2024-08-30 | ECG_ITS ---
Test Reason : chest pain Blood Pressure : */* mmHG Vent. Rate : 99 BPM Atrial Rate : 99 BPM P-R Int : 146 ms QRS Dur : 88 ms QT Int : 340 ms P-R-T Axes : 55 18 26 degrees QTcB Int : 436 ms Normal sinus rhythm Normal ECG When compared with ECG of 15-Jul-2024 01:13, No significant change was found Referred By: Generic ED Physician Electronically Signed By: Donald Whitehead
--- NOTE | ~2024-08-30 | XR_ITS ---
EXAMINATION: XR CHEST 2 VIEWS HISTORY: chest pain COMPARISON: Comparison is made with the prior examination dated 07/15/2024. FINDINGS: PA and lateral views of the chest are submitted. The lungs are expanded and clear. There is no pleural effusion, pneumothorax, or pulmonary vascular congestion. The heart is normal in size. A portion of the fusion plate is seen in the lower cervical spine. XR/XR chest 2V IMPRESSION: No acute cardiopulmonary abnormality. Electronically signed by: Artur Walker MD 08/30/2024 09:14 AM EDT
--- NOTE | 2024-08-30 09:02 | PC.NURSE ---
Pt to ED 9 from triage. Reports recent hospitalization in [place] approx 1 week ago for SOB, productive cough and pain in chest is 07/31, pt placed on monitor- NSR. States he returned fome from [place] yesterday but respiratory symptoms have not improved and also noted pain to right great toe, redness/swelling present. Pt states he has a hx gout. Mild yellowing noted to eye sclera. Pt with even and unlabored respirations, maintaining O2 sat in 90's on RA. #20 placed L AC, labs collected and sent.
[2024-08-30 09:06] LABS: MANUAL DIFF FLAG NO
[2024-08-30 09:12] LABS: Hematocrit 47.6 % (42.0-52.0); Hemoglobin 16.2 g/dl (14.0-18.0); Imm Gran Abs Auto 0.52 X10*3/uL (0.00-0.03); Imm Gran Pct Auto 4.3 % (0.0-0.4); Lymphocytes Absolute Auto 1.9 X10*3/uL (1.2-4.9); Mean Corpuscular HGB Conc 34.0 g/dl (31.0-36.0); Mean Corpuscular Hemoglobin 30.9 pg (27.0-33.0); Mean Corpuscular Volume 90.8 fL (80.0-98.0); NRBC Abs Auto 0.000 X10*3/uL (0.0-0.012); NRBC Pct Auto 0.0 /100WBC (0.0-0.2); Platelet Count 255 X10*3/uL (160-400); Red Blood Count 5.24 X10*6/uL (4.60-5.80); White Blood Count 12.0 X10*3/uL (4.8-10.8)
--- OUTSIDE RECORDS SUMMARY | 2024-08-30 09:26 | XMS_ITS | Encounter Summary ---
Author Organization [facility] Address [address] [place] [address] Phone Care Team Providers Care First Assistant Name Role Phone Tavia Mosquera Primary Care Provider [phone] Encounter Details Date Type Department Care Team (Late st Contact Info) Description 08/21/2024 Orders Only [facility] [address] [facility] [address] [place] [address] Dmitri Sequeira MD [address] [facility] [address] [place] [address] Right kidney absent Social History Tobacco Use Types Packs/Day Years Used Date Smoking Tobacco: Every Day Cigarettes 0.2 42.5 Started: 02/21/1982 Alcohol Use Standard Drinks/Week [...] absent documented in this encounter Care Teams First Assistant Relationship Specialty Start Date End Date Tavia Mosquera [address] [place] [address] PCP - General 04/29/22 documented as of this encounter
--- OUTSIDE RECORDS SUMMARY | 2024-08-30 09:26 | XMS_ITS | Clinical Summary ---
Author Organization [employer] Address [address] [facility] [address] [place] [address] Care Team Providers Care Self Contained Behavior Unit Teacher Name Role Phone Mirtha Lunsford MD Primary Care Provider [phone] Victoria Radford PharmD Unavailable Acosta Sinha CLINICAL ADMINISTRATOR Unavailable Unavailable Flip Wan MD Unavailable [phone] Dmitri Sequeira MD Unavailable Stephane Pisano MD Unavailable [phone] Melvin Claros MD Unavailable Artur Aguilar [...] 30 patch 1 04/27/19 25 2024 Discontinued mometasone (Elocon) 0.1 % [...] pain 04/16/2024 Overview (04/16/2024): -Patient followed at [place] [facility] with Dr. Agueda Claros DO. [...] air out. -recommended OT athletes foot cream Assessment & Plan (12/19/2023 [...] and nutrition interventions discussed. -Patient followed at [facility] with Dr. Agueda Claros DO. [...] retention. I spoke with JULIETA Wood at [facility] pain clinic and they want the last CT scan faxed at [phone], they will fu with patient this week. Order lumbar MRI ro cord compromise Other specified health status 07/02/2022 Overview (06/18/2024): -next physical exam due after 06/18/25 -eye care facilitated by [facility] -dental home is [facility] -health care proxy filed 12/19/23 Assessment & Plan (06/18/2024 3:03 PM EDT): -next physical exam due after 06/18/25 -eye care facilitated by [facility] -dental home is [facility] -health care proxy filed 12/19/23 Assessment & Plan (12/19/2023 9:30 AM EDT): -next physical exam due after 05/29/2024 -eye care facilitated by [facility] -dental home is [facility] -health care proxy filed 12/19/23 Assessment & Plan (05/30/2023 10:13 AM EDT): -next physical exam due after 02/28/2023 -eye care facilitated by [facility] -dental home is [facility] -[facility] proxy given on 05/30/2023 Assessment & Plan (11/01/2022 9:15 AM EDT): -next physical exam due after 02/28/2023 -[facility] home is Adrenal cortical adenoma 06/28/2022 Overview (05/31/2024): Seen by Dr. Aguilar 05/08/2021 (prior was followed by Dr. Moseley) Hx incidental finding right adrenal nodule found in CT preformed in ER Feb 2018 c/w benign adenoma. Biochemical workup showed mass not sales secretary including dexamethasone suppression test. Repeat CT [...] benign adenoma. Biochemical workup showed mass not sales secretary including dexamethasone suppression test. Repeat CT [...] benign adenoma. Biochemical workup showed mass not sales secretary including dexamethasone suppression test. Repeat CT done 2019. Follow up Dr. Aguilar 1 year recommended. -referral placed 05/30/23 Assessment & Plan (01/24/2023 9:53 AM EST): Seen by Dr. Aguilar 05/08/2021 (prior was followed by Dr. Moseley) Hx incidental finding right adrenal nodule found in CT preformed in ER Feb 2018 c/w benign adenoma. Biochemical workup showed mass not sales secretary including dexamethasone suppression test. Repeat CT [...] plan. Moderate persistent asthma 02/24/2022 Overview (02/02/2024): -automation and controls instructor Dr. Wan seen 02/02/24 -Well controlled on current regimen of Xolair, Combivent, Advair, albuterol MDI. -last prednisone use 12/28/23 for exacerbation, given by pulmonary Assessment & Plan (06/18/2024 3:06 PM EDT): -automation and controls instructor Dr. Wan seen 02/02/24 -Well controlled on current regimen of Xolair, Combivent, Advair, albuterol MDI. -last prednisone use 12/28/23 for exacerbation, given by pulmonary Assessment & Plan (02/23/2024 10:09 AM EST): -automation and controls instructor Dr. Wan seen 02/02/24 -Well controlled on current regimen of Xolair, Combivent, Advair, albuterol MDI. -last prednisone use 12/28/23 for exacerbation, given by pulmonary Assessment & Plan (05/30/2023 12:31 PM EDT): -automation and controls instructor Dr. Wan seen 12/2022 -Well controlled on current regimen of Xolair, Combivent, Advair, albuterol MDI. Continue current Assessment & Plan (01/24/2023 9:53 AM EST): -automation and controls instructor Dr. Wan seen 12/2022 -Well controlled on current regimen of Xolair, Combivent, Advair, albuterol MDI. Continue current Assessment & Plan (12/20/2022 8:01 PM EDT): Few wheezing on lung exam,reports feeling well -offered NBZ tx here but refuse states will get at home ,and got pump tx before coming that may cause elevated HR -continue his regular inh and montelukast -continue care w automation and controls instructor -planned apt for next month -advised to get booster for COVID 19 at vaccine clinic, pt s/p p20 and flu vaccine already Assessment & Plan (11/01/2022 9:02 AM EDT): -automation and controls instructor Dr. Wan -continue Flovent -continue Singulair -continue albuterol prn Assessment & Plan (06/28/2022 10:09 AM EDT): Normal lung exam. advised to call Dr. Wan, his automation and controls instructor, for kristan't. continue Flovent, Singulair, may use [...] Essential hypertension 08/19/2020 Overview (06/18/2024): -followed by [place] [facility] -echo 03/31/23 EF 60-65% no changes compared to02/2017 -Blood pressure is slightly above goal, recommended monitoring at home. -Continue lifestyle modifications -Continue current medications -cardiology note from 04/12/23, no changes, follow up 6 months Assessment & Plan (06/18/2024 3:06 PM EDT): -followed by [place] [facility] -echo 03/31/23 EF 60-65% no changes compared to02/2017 -Blood pressure is slightly above goal, recommended monitoring at home. -Continue lifestyle modifications -Continue current medications -cardiology note from 04/12/23, no changes, follow up 6 months Assessment & Plan (11/03/2023 10:12 AM EDT): -followed by [place] [facility] -echo 03/31/23 EF 60-65% no changes compared to02/2017 -Blood pressure is at goal -Continue lifestyle modifications -Continue current medications -cardiology note from 04/12/23, no changes, follow up 6 months Assessment & Plan (05/30/2023 12:31 PM EDT): -followed by [place] [facility] -echo 03/31/23 EF [...] as pharmacomtherapy, [facility] smoking cessation group, and [facility] pharmacy smoking cessation clinic -14mg and 7mg [...] as pharmacomtherapy, [facility] smoking cessation group, and [facility] pharmacy smoking cessation clinic -14mg and 7mg [...] as pharmacomtherapy, [facility] smoking cessation group, and [facility] pharmacy smoking cessation clinic -14mg and 7mg [...] diet and exercise,discussed healthy life style -discussed passenger tire builder referral -referred today Acute dehydration 09/23/2022 10/27/2022 [...] is for one week only and 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 Acute idiopathic gout involv ing toe of [...] Encounters Date Type Department Care Team Description 08/30/2024 Orders Only GENERIC EXTERNAL DATA DEPARTMENT Provider, Generic External Data 08/26/2024 Refill [facility] [address] [place] [address] Mirtha Lunsford MD Seasonal allergies 08/12/2024 Refill [facility] [address] [place] [address] Mirtha Lunsford MD Sacroiliac joint dysfunction; Rash 08/02/2024 Refill [facility] [address] [place] [phone] Kalli Henderson MD Chronic bilateral low back pain, unspecified whether sciatica present 07/30/2024 Refill [facility] [address] [place] [phone] Mirtha Lunsford MD Moderate persistent asthma without complication 07/24/2024 Refill [facility] [address] [place] [phone] Victoria Radford, PharmD Dyslipidemia 07/18/2024 8:00 AM EDT Office Visit [facility] [address] [place] [phone] Rebecca Capps Dental calculus (Primary Dx); Dental plaque 07/15/2024 Orders Only GENERIC EXTERNAL DATA DEPARTMENT Provider, Generic External Data 07/03/2024 Refill [facility] [address] [place] [phone] Mirtha Lunsford MD Chronic bilateral low back pain, unspecified whether sciatica present 06/21/[address] [address] Mirtha Lunsford MD Lung screening referral 06/20/2024 Orders Only [facility] External Provider, [facility] 06/19/2024 Refill [facility] [address] [place] [phone] Mirtha Lunsford MD Sacroiliac joint dysfunction 06/18/2024 9:15 AM EDT Office Visit [facility] [address] [place] [phone] Mirtha Lunsford MD Lipoma, unspecified site (Primary [...] specified health status 06/18/2024 Travel 06/14/2024 Telephone [facility] [address] [place] [phone] Mirtha Lunsford MD [employer] 06/12/2024 Orders Only GENERIC EXTERNAL DATA DEPARTMENT Provider, Generic External Data 06/08/2024 Orders Only [facility] [address] [place] [phone] Mirtha Lunsford MD Essential hypertension 06/07/2024 Refill [facility] [address] [place] [phone] Victoria Radford, Duy Essential hypertension 06/06/2024 Patient Outreach [address] [address] Mirtha Lunsford MD Pre-visit Planning (SDOH screening negative and Tobacco screening positive) 06/04/2024 Refill [facility] [address] [place] [address] Mirtha Lunsford MD Chronic bilateral low back pain, unspecified whether sciatica present 05/31/2024 Refill [facility] [address] [place] [address] [phone] Mirtha Lunsford MD Rash from Last 3 [...] Answer Date Recorded Internet Access Q1 Yes 08/29/2024 Internet Access Q2 Not on file 08/29/2024 Sex and Gender Information Value Date Recorded [...] Description 02/11/2025 8:00 AM EST Office Visit [facility] [address] [facility] [place] [address] Rebecca Capps Health Maintenance Due Date Last [...] Procedure Name Priority Date/Time Associated Diagnosis Comments CBC WITH AUTO DIFFERENTIAL Routine 08/30/2024 8:57 AM EDT XR CHEST 2 VIEWS Routine 08/30/2024 8:10 AM EDT PERIODIC ORAL EVALUATION - ESTABLISHED PATIENT Routine [...] Relevant to Health Maintenance Results * (ABNORMAL) CBC auto differential (08/30/2024 8:57 AM EDT) Only the most recent of2 resultswithin the time period is included. White Blood Count 12.0(H) 4.8 - 10.8 X10*3/uL [facility] Red Blood Count 5.24 4.60 - 5.80 X10*6/uL [facility] Hemoglobin 16.2 14.0 - 18.0 g/dl [facility] Hematocrit 47.6 42.0 - 52.0 % [facility] Mean Corpuscular Volume 90.8 80.0 - 98.0 fL [facility] Mean Corpuscular Hemoglobin 30.9 27.0 - 33.0 pg [facility] Mean Corpuscular HGB Conc 34.0 31.0 - 36.0 g/dl [facility] Red Cell Distribution Width 13.2 11.0 - 16.0 % [facility] Platelet Count 255 160 - 400 X10*3/uL [facility] Mean Platelet Volume 11.3 9.4 - 12.4 fL [facility] Neutrophils Percent Auto 65.9 45 - 73 % [facility] Imm Gran Pct Auto 4.3(H) 0.0 - 0.4 % [facility] Lymphocytes Percent Auto 15.8(L) 20 - 40 % [facility] Monocytes Percent Auto 8.1 2 - 11 % [facility] Eosinophils Percent Auto 5.1(H) 0 - 4 % [facility] Basophils Percent Auto 0.8 0 - 2 % [facility] NRBC Pct Auto 0.0 0.0 - 0.2 /100WBC [facility] Neutrophils Absolute Auto 7.9 2.0 - 8.3 x10*3/uL [facility] Imm Gran Abs Auto 0.52(H) 0.00 - 0.03 X10*3/uL [facility] Lymphocytes Absolute Auto 1.9 1.2 - 4.9 X10*3/uL [facility] Monocytes Absolute Auto 1.0 0.1 - 1.2 X10*3/uL [facility] Eosinophils Absolute Auto 0.6(H) 0.0 - 0.4 X10*3/uL [facility] Basophils Absolute Auto 0.1 0.0 - 0.2 X10*3/uL [facility] NRBC Abs Auto 0.000 0.0 - 0.012 X10*3/uL [facility] 08/30/2024 8:57 AM EDT 08/30/2024 9:02 AM EDT us Generic External Data Provider LAB BLOOD ORDERAB LES Final Result Performing Organization Address City/State/[facility] Co de Phone Number [facility] [address] [place] [phone] * XR Chest 2 Views (08/30/2024 8:10 AM EDT) Anatomical Region Laterality Modality Chest Radiographic Ursula ging 08/30/2024 8:10 AM EDT Narrative 08/30/2024 9:17 AM EDT [address] [address] XRay Report Signed Patient: Yuri Stokes MR#: [id number] : 1970 Acct:[id number] Age/Sex: 54 / M ADM Date: 08/30/24 Loc: .ED Attending Dr: Ordering Physician: Jena Corrales DO Date of Service: 08/30/24 Procedure(s): XR chest 2V Accession Number(s): [id number] cc: Mirtha Lunsford MD; Jena Corrales DO EXAMINATION: XR CHEST 2 VIEWS HISTORY: chest pain COMPARISON: Comparison is made with the prior examination dated 07/15/2024. FINDINGS: PA and lateral views of the chest are submitted. The lungs are expanded and clear. There is no pleural effusion, pneumothorax, or pulmonary vascular congestion. The heart is normal in size. A portion of the fusion plate is seen in the lower cervical spine. XR/XR chest 2V IMPRESSION: No acute cardiopulmonary abnormality. Electronically signed by: Artur Walker MD 08/30/2024 09:14 AM EDT RP Dictated By: Artur Walker MD Signed By: <Electronically signed by Artur Walker MD in OV> 08/30/24913 DD/ 9 TD/TT: 08/30/24908 Supervisor Properties: Procedure Note Donotuseinterpreter, Image - 08/30/[address] [address] XRay Report Signed Patient: Yuri Stokes MR#: [id number] : 1970Acct:[id number] Age/Sex: 54 / MADM Date: 08/30/24 Loc: .ED Attending Dr: Ordering Physician: Jena Corrales DO Date of Service: 08/30/24 Procedure(s): XR chest 2V Accession Number(s): [id number] cc: Mirtha Lunsford MD; Jena Corrales DO EXAMINATION: XR CHEST 2 VIEWS HISTORY: chest pain COMPARISON: Comparison is made with the prior examination dated 07/15/2024. FINDINGS: PA and lateral views of the chest are submitted. The lungs are expanded and clear. There is no pleural effusion, pneumothorax, or pulmonary vascular congestion. The heart is normal in size. A portion of the fusion plate is seen in the lower cervical spine. XR/XR chest 2V IMPRESSION: No acute cardiopulmonary abnormality. Electronically signed by: Artur Walker MD 08/30/2024 09:14 AM EDT RP Dictated By: Artur Walker MD Signed By: <Electronically signed by Artur Walker MD in OV> 08/30/24913 DD/ 9 TD/TT: 08/30/24908 Supervisor Properties: [facility] External Provider IMG XR PROCEDURES Edited Result - Final * (ABNORMAL) High Sensitivity Troponin I (07/15/2024 3:56 AM EDT) Only the most recent of2 resultswithin the time period is included. TROPONIN I HIGH SENSITIVITY 43.3(H) <3.5 - 35.0 ng/L [facility] Comment:The Lamb high sens itivity Troponin-I results should beused in conjunction with other diagnostic information suchas ECG, clinical observations and information, and patientsymptoms to aid in the diagnosis of VT. 07/15/2024 3:56 AM EDT 07/15/2024 4:02 AM EDT us Generic External Data Provider LAB BLOOD ORDERAB LES Final Result Performing Organization Address City/State/[facility] Co de Phone Number [facility] [address] [place] [phone] * XR Chest 1 View (07/15/2024 1:48 AM EDT) Anatomical Region Laterality Modality Chest Radiographic Ursula ging 07/15/2024 1:48 AM EDT Narrative 07/15/2024 1:49 AM EDT [address] [address] XRay Report Signed Patient: Yuri Stokes MR#: [id number] : 1970 Acct:[id number] Age/Sex: 54 / M ADM Date: 07/15/24 Loc: .ED Attending Dr: Ordering Physician: Javed Olsen MD Date of Service: 07/15/24 Procedure(s): XR chest 1V Accession Number(s): [id number] cc: Mirtha Lunsford MD; Javed Olsen MD [...] Park MD Signed By: <Electronically signed by dArian Park MD in OV> 07/15/24148 DD/ 7 TD/TT: 07/15/24147 Supervisor Properties: Procedure Note Donotuseinterpreter, Image - 07/15/2024 [place] [address] XRay Report Signed Patient: Yuri Stokes MR#: [id number] : 1970Acct:[id number] Age/Sex: 54 / MADM Date: 07/15/24 Loc: HO.ED Attending Dr: Ordering Physician: Javed Olsen MD Date of Service: 07/15/24 Procedure(s): XR chest 1V Accession Number(s): [id number] cc: Mirtha Lunsford MD; Javed Olsen MD [...] in OV> 07/15/24148 DD/ 7 TD/TT: 07/15/24147 Supervisor Properties: [facility] External Provider IMG XR PROCEDURES Edited Result - Final * SARS-CoV-2 RNA, Influenza A/B, and RSV RNA, Ql NAAT (07/15/2024 1:22 AM EDT) Influenza A PCR NEGATIVE Negative [facility] Influenza B PCR NEGATIVE Negative [facility] Resp Syncy Virus RNA Qual PCR NEGATIVE Negative [facility] SARS COV2 PCR NEGATIVE Negative [facility] Comment:All test results mus t [...] use by authorized laboratories.Testing performed on the [employer] GeneXpert utilizingreal-time RT-PCR.All SARS CoV2 and positive influenza A/B results arereported to [facility]. 07/15/2024 1:22 AM EDT 07/15/2024 1:28 AM EDT Generic External Data Provider LAB MICROBIOLOGY - GENERAL ORDERABLES Final Result [facility] [address] [place] [phone] * (ABNORMAL) Comprehensive Metabolic Panel (07/15/2024 1:22 AM EDT) Sodium 141 135 - 145 mmol/L [facility] Potassium 4.1 3.3 - 5.1 mmol/L [facility] Chloride 110(H) 96 - 108 mmol/L [facility] Carbon Dioxide 20(L) 22 - 29 mmol/L [facility] Anion Gap 15 12 - 20 [facility] Urea Nitrogen (BUN) 15 9 - 16 mg/dL [facility] Creatinine, Serum 1.06 0.5 - 1.4 mg/dL [facility] Creatinine Clr Calc Pharmacy 88.4 [facility] Comment:eGFR (calculated fro m the MDRD study equation) and eCrCl(calculated from the Cockcroft-Gault equation) are based ondifferent parameters and may not yield comparable results.If eCrCl result is absurd, please check patient'sheight/weight. Estimated Glomerular Filt Rate >60 [facility] Comment:Chronic Kidney Disea se: Estimated GFR < 60 mL/min/[id number] Kidney Disease: Estimated GFR < 15 mL/min/1.73m2 Glucose 93 60 - 115 mg/dL [facility] Calcium 8.8 8.4 - 10.2 mg/dL [facility] Bilirubin, Total 0.3 0.0 - 1.0 mg/dL [facility] Aspartate Amino Transferase 29 5 - 37 U/L [facility] Alanine Aminotransferase 34 0 - 40 U/L [facility] Total Protein 6.8 6.5 - 8.0 g/dL [facility] Albumin Level 4.1 3.5 - 5.0 g/dL [facility] Alkaline Phosphatase 113 39 - 117 U/L [facility] 07/15/2024 1:22 AM EDT 07/15/2024 1:28 AM EDT us Generic External Data Provider LAB BLOOD ORDERAB LES Final Result Performing Organization Address City/State/[facility] Co de Phone Number [facility] [address] [place] [phone] * XR Hand 3+Views Bilateral (06/23/2024 6:47 AM EDT) Anatomical Region Laterality Modality Upper Extremities, Hand Bilateral Radiogra phic Imaging 06/23/2024 6:47 AM EDT Narrative 06/23/2024 6:48 AM EDT [address] [address] XRay Report Signed Patient: Yuri Stokes MR#: [id number] : 1970 Acct:[id number] Age/Sex: 54 / M ADM Date: 06/20/24 Loc: HO.NEURO Attending Dr: Edwige Varela MD Ordering Physician: Edwige Rodriguez Date of Service: 06/20/24 Procedure(s): XR Hand Bilat min 3v Accession Number(s): [id number] cc: Mirtha Lunsford MD; Edwige Rodriguez CLINICAL [...] in OV> 06/23/24647 DD/ 6 TD/TT: 06/23/24646 Supervisor Properties: Procedure Note Donotuseinterpreter, Image - 06/23/2024 [place] [address] XRay Report Signed Patient: Yuri Stokes MR#: [id number] : 1970Acct:[id number] Age/Sex: 54 / MADM Date: 06/20/24 Loc: HO.NEURO Attending Dr: Edwige Varela MD Ordering Physician: Edwige Rodriguez Date of Service: 06/20/24 Procedure(s): XR Hand Bilat min 3v Accession Number(s): [id number] cc: Mirtha Lunsford MD; Edwige Rodriguez CLINICAL [...] in OV> 06/23/24647 DD/ 6 TD/TT: 06/23/24646 Supervisor Properties: [facility] External Provider IMG XR PROCEDURES Edited Result - Final * Dexamethasone (06/12/2024 8:24 AM EDT) Dexamethasone 583 ng/dL [facility] Comment:Reference Ranges for Dexamethasone:Baseline: Less than 20 ng/dL1 mg dexamethasone overnight: 180-550 ng/dL (8:00-10:00 AM)This test was developed and its analytical performancecharacteristics have been determined by [employer].It has not been cleared or approved by the FDA. This assayhas been validated pursuant to the CLIA regulations and isused for clinical purposes.THIS TEST WAS PERFORMED AT:[employer] [id number] [place] [phone] FRANKLIN MD,PHD,CHAD 06/12/2024 8:24 AM EDT 06/12/2024 8:24 AM EDT Generic External Data Provider LAB BLOOD ORDERAB LES Final Result Performing Organization Address [facility] Co de Phone Number [facility] [address] [place] [phone] * Cortisol Random (06/12/2024 8:24 AM EDT) Cortisol Random 1.2 ug/dL [facility] Comment:Reference Range*: Be fore 10 am 6.2-19.4 ug/dL After 5 pm 2.3-11.9 ug/dL*Please interpret above results accordingly.This test was performed using the [employer] chemiluminescentmethod. Values obtained from different assay methods cannotbe used interchangeably.Patients receiving fludrocortisone, prednisolone orprednisone may show artificially elevated cortisol valuesdue to cross-reactivity. 06/12/2024 8:24 AM EDT 06/12/2024 8:24 AM EDT Generic External Data Provider LAB BLOOD ORDERAB LES Final Result Performing Organization Address [facility]/ZIP Co de Phone Number [facility] [address] [place] [phone] * Hepatitis C Antibody with Reflex to HCV, RNA, Quantitative, Real-Time PCR (02/28/2024 9:26 AM EST) Hepatitis C Antibody Nonreactive Nonreactive [facility] Comment:Antibodies to HCV no t detected; does not exclude early acuteHCV infection. Blood Venous blood specimen / Unknown 02/28/2024 9:26 AM EST 02/28/2024 11:15 AM EST Mirtha Lunsford MD LAB BLOOD ORDERABLES Final Result Performing Organization Address [facility]/ZIP Co de Phone Number [facility] [address] [place] [phone] * HIV-1/2 Antigen and Antibodies, Fourth Generation, with Reflexes (02/28/2024 9:26 AM EST) Pathologist [facility] HIV AB/AG Nonreactive Nonreactive [facility] Comment:HIV-1 p24 Ag and/or HIV-1/HIV-2 Ab not detected.A test result that is nonreactive does not exclude thepossibility of exposure to or infection with HIV-1 and/orHIV-2. Nonreactive results in this assay for individualswith prior exposure to HIV-1 and/or HIV-2 may be due toantigen and antibody levels that are below the limit ofdetection of this assay.The [employer] HIV Ag/Ab Combo assay result andsupplemental assay [...] Organization Address [facility]/ZIP Co de Phone Number [facility] [address] [place] [phone] * Lipid Panel, Standard (08/26/2023 9:11 AM EDT) Triglycerides 78 <150 mg/dL [facility] Comment:Desirable Triglyceri de: less than 150 mg/dLBorderline High Triglyceride 150-199 mg/dLHigh Triglyceride: 200-499 mg/dLVery High Triglyceride: greater than or equal to 5OO mg/dL Cholesterol 183 <200 mg/dL [facility] Comment:Desirable Cholestero l: less than 200 mg/dLBorderline High Cholesterol: 200-239 mg/dLHigh Cholesterol: greater than 239 mg/dL LDL Cholesterol Calculated 90 <100 mg/dL [facility] Comment:Desirable LDL: less than 100 mg/dLNear Optimal/Above Optimal LDL: 110- 129 mg/dLBorderline High LDL: 130-159 mg/dLHigh LDL: 160-189 mg/dLVery High LDL: greater than or equal to 190 mg/dL HDL Cholesterol 78 >40 mg/dL [facility] Comment:Desirable HDL: great er than 40 mg/dL Note: This HDL assay may give artificially low results in patients with liver disease. 08/26/2023 9:11 AM EDT 08/26/2023 11:07 AM EDT Mirtha Lunsford MD LAB BLOOD ORDERABLES Final Result [facility] [address] [place] [phone] * (ABNORMAL) Colonoscopy (07/08/2023) Colonoscopy Abnormal( A) Normal Comment:Multiple polyps with Dr. Pisano, repeat 1 year Thalia Provider HEALTH MAINTENANCE Edited Result - Final from Last 3 Months or Most Recently Relevant to Health Maintenance Insurance [facility] C3 Advance Directives Documents on File Type Date Recorded Patient Bdc Manager Expl anation Advance Directives and Living Will 12/19/2023 Health Care Proxy 12/19/23 Care Teams Self Contained Behavior Unit Teacher Relationship Specialty Start Date End Date [place], MD Mirtha [address] [place] [address] PCP - General Family Medicine 03/04/15 Victoria Radford PharmD [address] [place] [address] Pharmacist Internal Medicine 08/03/22 Acosta Sinha FNP [address] [place] [address] Nurse Practitioner Family Medicine 01/17/23 Flip Wan MD [address] [place] [address] Pulmonary Disease 02/02/24 Dmitri Sequeira MD [address] [phone] Nephrology 02/10/24 Stephane Pisano MD [address] [place] [address] General Surgery 02/10/24 Melvin Claros MD [address] [place] [address] Cardiology 04/16/24 Artur Aguilar MD [address] [place] [address] Endocrinology 05/31/24 Ghassan Houoie Hall CoordinatorRestaurant Area Director 02/07/24June,Joyce Hoover PA-C Lung Cancer Screening Program Radiology 07/31/24
--- OUTSIDE RECORDS SUMMARY | 2024-08-30 09:26 | XMS_ITS | Clinical Summary ---
Author Organization [address] [place] [address] Address [address] [place] [address] Phone Care Team Providers Care [employer] Team Member Name Role Phone Lucrecia Pitt MD Primary Care Provider [phone] Surgical History Surgery Date Site/Laterality Comments NECK [...] Upcoming Encounters Date Type Department Care Team ([facility] Contact Info) Description 09/17/2024 8:30 AM EDT Office Visit Orthopedic Surgery [facility] [address] [phone] Nick Hooper, DPM [address] [address] Health Maintenance Due Date Last Done Comments [...] to complete this topic Insurance [place] Care Teams [employer] Team Member Relationship Specialty Start Date End Date Lucrecia Pitt MD [address] [place] [phone] PCP - General 09/23/22
--- OUTSIDE RECORDS SUMMARY | 2024-08-30 09:26 | XMS_ITS | Patient Health Record ---
Author Organization [facility] Address [address] [place] [address] Care Team Providers Care Presentation Designer Name Role Phone Aleksandr Spangler Jr Reason For Referral No Information Plan Of Treatment No Information
[2024-08-30 09:29] LABS: B Type Natriuretic Peptide < 10 pg/mL (<100)
--- NOTE | 2024-08-30 09:29 | ED_ITS ---
HPI - General Adult General Chief complaint: Dyspnea Stated complaint: chest pain gout Time Seen by Provider: 08/30/24 09:10 Source: patient, RN notes reviewed and old records reviewed Mode of arrival: ambulatory Limitations: no limitations History of Present Illness ED Provider: Carolina HPI narrative: Patient is a 54-year-old male with history of severe persistent asthma presenting to the emergency department with complaint of dyspnea, productive cough for the past week. States he was admitted to a hospital in [place] last week for his symptoms but signed out AMA as he was on vacation with his children. Cough has been productive of white sputum. Patient states that he has been having coughing episodes which have been so severe that it causes him to become lightheaded. Denies fevers. Complains of what he describes as superficial chest pain, worse with coughing. MD complaint: cough, dyspnea Related Data Home Medications ?Medication ?Instructions ?Recorded ?Confirmed pregabalin 150 mg capsule (Lyrica) 150 mg PO BID 11/2507/05/24 cyclobenzaprine 10 mg tablet 10 mg PO BEDTIME PRN musc le pain 11/28/22 07/05/24 ipratropium 20 mcg-albuterol 100 1 puff inhalation BID Shortness Of 11/28/22 07/05/24 mcg/actuation mist for inhalation Breath Or Wheezing (Combivent Respimat) escitalopram oxalate 5 mg tablet 5 mg PO DAILY 3 07/05/24 (Lexapro) lisinopril 20 mg tablet 20 mg PO QAM 12/30/22 loratadine 10 mg tablet 10 mg PO DAILY 05/11/2306/21 atorvastatin 40 mg tablet 40 mg PO QAM 06/20/23 carvedilol 3.125 mg tablet 3.125 mg PO BID 06/20/23 escitalopram oxalate 10 mg tablet 10 mg PO DAILY 06/1907/05/24 hydroxyzine pamoate 25 mg capsule 25 mg PO DAILY PRN a nxiety 06/20/23 07/05/24 hydroxyzine pamoate 50 mg capsule 50 mg PO DAILY PRN a nxiety 06/20/23 07/05/24 metoprolol succinate 25 mg 12.5 mg PO DAILY 06/20/23 0 07/05/24 tablet,extended release 24 hr nicotine 7 mg/24 hr daily 1 patch transdermal Q24H 07/05/24 transdermal patch pregabalin 150 mg capsule (Lyrica) 150 mg PO DAILY 07/05/24 terbinafine HCl 1 % topical cream 1 appl topical BID 0 06/20/23 07/05/24 Previous Rx's ?Medication ?Instructions ?Recorded omalizumab 150 mg subcutaneous 225 mg subcut Q2W 28 da ys #3 ea 12/11/20 solution (Xolair) acetaminophen 325 mg tablet 650 mg (2 x 325 mg) PO Q6H PRN 08/19/22 (Tylenol) pain #30 tabs albuterol sulfate 90 mcg/actuation 2 puff inhalation Q ID PRN 09/29/22 aerosol inhaler shortness of breath or wheez ing #6.7 grams amlodipine 5 mg tablet 5 mg PO DAILY #30 tabs 12/03 albuterol sulfate 90 mcg/actuation 2 inh inhalation Q6 H PRN shortness 05/06/23 breath activated powder inhaler of breath or wheezing #1 ea sodium,potassium,mag sulfates 17.5 See Rx Instructions PO .COMPLEX 06/20/23 gram-3.13 gram-1.6 gram oral soln #354 mL (Suprep Bowel Prep Kit) oybesbskwddnm-[id number] 2.5 20 ml PO Q4H PRN coug h #118 mL 10/18/23 mg-5 mg-50 mg/5 mL oral liquid (Robitussin Cough and Cold CF) albuterol sulfate 2.5 mg/3 mL 2.5 mg (3 mL) inhalation Q4-6H PRN 01/21/24 (0.083 %) solution for nebulization shortness of breat h or wheezing #75 mL benzonatate 100 mg capsule 100 mg PO TID PRN cough #20 caps 01/21/24 guaifenesin 600 mg tablet, 600 mg PO BID #30 tabs 01/21 04/16 extended release 12 hr fluticasone propionate 50 1 spray intranasal BID #48 m L 05/04/24 mcg/actuation nasal spray,suspension dexamethasone 1 mg tablet 1 mg PO ONCE #1 tab 05/31/24 montelukast 10 mg tablet 10 mg PO QPM #90 tabs fluticasone propionate 115 2 puff inhalation Q12H 30 d ays #1 06/29/24 mcg-salmeterol 21 mcg/actuation ea HFA inhaler (Advair HFA) sodium,potassium,mag sulfates 17.5 See Rx Instructions PO .COMPLEX 07/05/24 gram-3.13 gram-1.6 gram oral soln #354 mL (Suprep Bowel Prep Kit) azithromycin 250 mg tablet See Rx Instructions PO .COM PLEX #6 08/30/24 tabs azithromycin 250 mg tablet See Rx Instructions PO .COM PLEX #6 08/30/24 (Zithromax Z-Abdifatah) tabs prednisone 20 mg tablet 20 mg PO DAILY #7 tabs 08/30 prednisone 20 mg tablet 40 mg (2 x 20 mg) PO DAILY # 14 tabs 08/30/24 Allergies Allergy/AdvReac Type Severity Reaction Status Date / Time Iodinated Contrast Media Allergy Severe Unknown Verified 08/30/24 08:32 levofloxacin Allergy Mild Rash Verified 08/30/24 08:32 ibuprofen (From MOTRIN) Allergy Unknown KIDNEY Verified 08/30/24 08:32 ISSUES mushroom AdvReac Mild VOMITING Verified 08/30/24 08:32 amlodipine AdvReac Unknown Swelling Verified 08/30/24 08:32 Review of Systems 2 Review of Systems: As per HPI Yes all other systems are reviewed and are negative Constitutional: Constitutional: Reports as per HPI [facility] Past Medical History Medical History (Updated 08/30/24 @ 14:41 by Britney Figueroa NP) History of adenomatous polyp of colon Nicotine dependence, cigarettes, uncomplicated History of rectal polyps Asthma Asthma with exacerbation Hypertension 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 Arthritis Surgical History (Updated 07/27/24 @ 08:02 by Joyce Espino PA-C) History of rectal sphincterotomy History of hydrocelectomy History of colonoscopy History of left nephrectomy H/O neck surgery Previous back surgery Family History Family History Mother Hypertension Asthma Father Medical history unknown Social History Social History (Updated 07/27/24 @ 09:54 by Joyce Espino PA-C) Household Members: None Housing: Apartment Do you presently have visiting nurse or other home services: No Alcohol intake: current Alcohol intake frequency: holidays/special occasions only Alcohol type: beer Patient Tobacco Use Status: Current everyday Tobacco user Tobacco use type: Cigarette Years Smoked: (onset 18, 1ppd x 36yrs, 30+PYH) Smoked in Last 30 Days: Yes e-Cigarette/Vaping Use: Former Use Second Hand Smoke Exposure: No Advance Directives: No Advance Directives Information Provided: Yes service: No Current occupational status: unemployed 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 Physical Exam ED Vital Signs: Vital Signs - 24 hr 08/30/24 08:30 08/30/24 08:43 08/30/24 10:02 Temperature 98.1 F 98.2 F Pulse Rate 106 H 107 H 87 Respiratory Rate 20 19 Blood Pressure 161/67 H 113/69 Pulse Oximetry 96 95 Oxygen Delivery Method Room Air Room Air 08/30/24 11:01 08/30/24 11:47 08/30/24 13:54 Temperature 96.8 F Pulse Rate 89 90 93 Respiratory Rate 19 22 H 22 H Blood Pressure 116/74 122/67 Pulse Oximetry 96 93 Oxygen Delivery Method Room Air Room Air 08/30/24 14:25 Temperature Pulse Rate Respiratory Rate Blood Pressure Pulse Oximetry 95 Oxygen Delivery Method BMI result Body Mass Index 33.8 Vital signs have been reviewed and appear to be correct. Blood pressure normal. Heart rate slightly tachycardic. Respiratory rate normal. Temperature normal. Oxygen saturation normal. Const General: cooperative, healthy appearing and no acute distress Orientation/consciousness: oriented to person, oriented to place, oriented to time and patient oriented x3 Limitations: no limitations HENMT Head: Yes normocephalic and Yes atraumatic Ears: external ears normal General nose exam: Normal external nose present Face and sinus: Yes face symmetric Mouth: oropharynx normal and moist mucous membranes Throat: Yes uvula midline Eyes Pupils: Equal, round and reactive pupils present Neck Neck: Yes normal visual inspection and Yes supple Resp Effort & Inspection: normal respiratory effort, able to speak in complete sentences, Actively coughing Quality: dry, not labored, no retractions and no use of accessory muscles Auscultation: wheezes expiratory wheezes and throughout Cardio Rate: regular rate Rhythm: regular rhythm Heart sounds: S1 normal heart sound present and S2 normal heart sound present GI Palpation (GI): Soft to palpation and nontender Auscultation: normoactive bowel sounds General: Yes no CVA tenderness Back/Spine/Pelvis Back: no CVA tenderness Skin General skin exam: elasticity normal and turgor normal Neuro General: oriented to person, oriented to place, oriented to time, patient oriented x3, moves all extremities, no focal motor deficits and CN's II-XI intact bilaterally Cranial nerves: Yes Equal, round and reactive pupils present Cognition (Neuro): normal cognition Extrem General: Yes full ROM, Yes no pedal edema and Yes no calf tenderness Psych Mental Status: mental status grossly normal Affect: normal affect Thought process: Normal thought process present Medications Administered Discontinued Medications Generic Name Dose Route Start Last Admin Trade Name Prince PRN Reason Stop Dose Admin Acetaminophen 975 mg 08/30/24 13:27 08/30/24 13:35 Acetaminophen 325 Mg Tablet PO 08/30/24 13:28 975 mg ONCE ONE Administration Albuterol Sulfate 2.5 mg/ 0 mg 08/30/24 09:54 08/30/24 09:59 Albuterol/Ipratropium 3 ml INHALE 08/30/24 09:55 1 dose ONCE ONE Administration Albuterol Sulfate 2.5 mg/ 0 mg 08/30/24 11:40 08/30/24 11:44 Albuterol/Ipratropium 3 ml INHALE 08/30/24 11:41 1 dose ONCE ONE Administration Magnesium Sulfate 2 gm in 50 mls @ 25 mls/hr 08/30/24 09:35 08/30/24 11:21 Magnesium Sulfate/H2o IV 08/30/24 11:34 Infused ONCE ONE Infusion Methylprednisolone Sodium Succinate 125 mg 08/30/24 09:35 08/30/24 09:43 Methylprednisolone Sod Succ 125 Mg/2 Ml Vial IVPUSH 08/30/24 09:36 125 mg ONCE ONE Administration Medical Decision Making Medical Decision Making [facility] Narrative: Patient is a 54-year-old male with history of severe persistent asthma presenting to the emergency department with complaint of dyspnea, productive cough for the past week. On exam patient is awake, A+Ox3, VS WNL, afebrile, normal neurological exam without focal deficits, physical exam findings as above. Given reported symptoms and physical exam findings, initial differential includes but is not limited to viral illness, bronchitis, pneumonia, asthma exacerbation, musculoskeletal pain, costochondritis. Unlikely ACS. Labs notable for mild leukocytosis without shift, slightly elevated troponin, repeat . EKG shows normal sinus rhythm. X-ray chest notable for no evidence of pneumonia. My interpretation is in agreement with the radiologist's interpretation. Patient reports improvement in symptoms after breathing treatment and medications given in the ED. Ambulatory sat 95% on room air. Will discharge on azithromycin for bronchitis as well as prednisone. Advised follow up with PCP. Return precautions discussed. Patient verbalized understanding of and agreement with plan. Differential Diagnosis Differential Diagnoses: The differential diagnosis associated with the presentation includes as per [facility] Admission/Observation Consideration of admission/observation: Escalation of care including admission/observation considered Patient would have been admitted to the hospital had their clinical presentation warranted hospital admission. Lab Data [facility] Lab Attestation statement: I reviewed the patient's lab results. As per [facility] 08/30/24 08:57 08/30/24 08:57 Labs: Lab Results 08/30/24 08/30/24 Range/Units 08:57 11:48 WBC 12.0 H (4.8-10.8) X10*3/uL RBC 5.24 (4.60-5.80) X10*6/uL Hgb 16.2 (14.0-18.0) g/dl Hct 47.6 (42.0-52.0) % MCV 90.8 (80.0-98.0) fL MCH 30.9 (27.0-33.0) pg MCHC 34.0 (31.0-36.0) g/dl RDW 13.2 (11.0-16.0) % Plt Count 255 (160-400) X10*3/uL MPV 11.3 (9.4-12.4) fL Immature Gran % (Auto) 4.3 H (0.0-0.4) % Neut % (Auto) 65.9 (45-73) % Lymph % (Auto) 15.8 L (20-40) % [place] % (Auto) 8.1 (2-11) % Eos % (Auto) 5.1 H (0-4) % Baso % (Auto) 0.8 (0-2) % Lymph # (Auto) 1.9 (1.2-4.9) X10*3/uL [place] # (Auto) 1.0 (0.1-1.2) X10*3/uL Eos # (Auto) 0.6 H (0.0-0.4) X10*3/uL Baso # (Auto) 0.1 (0.0-0.2) X10*3/uL Abs Immat Gran (auto) 0.52 H (0.00-0.03) X10*3/uL Absolute Neuts (auto) 7.9 (2.0-8.3) x10*3/uL Absolute Nucleated RBC 0.000 (0.0-0.012) X10*3/uL Nucleated RBC % (auto) 0.0 (0.0-0.2) /100WBC Sodium 137 (135-145) mmol/L Potassium 4.3 (3.3-5.1) mmol/L Chloride 105 (96-108) mmol/L Carbon Dioxide 23 (22-29) mmol/L Anion Gap 13 (12-20) BUN 20 H (9-16) mg/dL Creatinine 1.20 (0.5-1.4) mg/dL Estim Creat Clear Calc 74.1 Estimated GFR > 60 Random Glucose 105 (60-115) mg/dL Uric Acid 9.9 H (3.4-7.0) mg/dL Calcium 9.5 D (8.4-10.2) mg/dL Magnesium 2.3 (1.6-2.6) mg/dL Total Bilirubin 0.9 (0.0-1.0) mg/dL Direct Bilirubin 0.3 (0.0-0.5) mg/dL AST 30 (5-37) U/L ALT 41 H (0-40) U/L Alkaline Phosphatase 124 H (39-117) U/L Troponin I High Sens 19.0 D 23.4 (<3.5-35.0) ng/L B-Natriuretic Peptide < 10 (<100) pg/mL Total Protein 7.7 (6.5-8.0) g/dL Albumin 4.6 (3.5-5.0) g/dL Independent Interpretation I performed an independent interpretation of an: EKG (normal sinus rhythm,rate 99bpm, normal NJ interval and QTc) and Plain X-Ray Interpretation: No evidence of pneumonia on chest x-ray Radiology Impression Discussion of test interpretation with radiology: I have reviewed the radiologist's reading. Radiologist Impression: XR/XR chest 2V IMPRESSION: No acute cardiopulmonary abnormality. External Record Review External record reviewed: Inpatient record, Office record and Outpatient record Prescription Management I considered prescription management with: Antibiotic and Other Chronic Conditions Patient?s care impacted by: Other (asthma) Discharge Plan Discharge Clinical Impression: Bronchitis, Asthma exacerbation Patient Disposition: Home, Self-Care Instructions: Asthma (DC), Acute Bronchitis (ED) Additional Instructions: You were evaluated in the emergency department today for cough and shortness of breath. You are being treated for bronchitis and asthma exacerbation with an antibiotic, please complete the full course as prescribed. You are also being prescribed a short course of steroids to decrease inflammation. Please follow- up with your primary care provider this week. Return to the emergency department if you develop worsening shortness of breath, difficulty breathing, chest pain, fever not improved with Tylenol or ibuprofen, or any other concerning symptoms. Prescriptions: New azithromycin 250 mg tablet See Rx Instructions .ROUTE .COMPLEX Qty: 6 0RF Rx Instructions: For 250 mg dose pack: take 500 mg today (day 1), then 250 mg for 4 days (days 2-5) prednisone 20 mg tablet 20 mg PO DAILY Qty: 7 0RF No Action Xolair 150 mg recon soln 225 mg subcut Q2W 28 Days Qty: 3 12RF Rx Instructions: requires multiple injection sites; do not exceed 150 mg per injection site; NEXT DOSE: 11/30/22 fluticasone propionate 50 mcg/actuation spray,suspension 1 spray intranasal BID Qty: 48 0RF montelukast 10 mg tablet 10 mg PO QPM Qty: 90 0RF fluticasone propion-salmeterol [Advair HFA] 115-21 mcg/actuation HFA aerosol inhaler 2 puff inhalation Q12H 30 Days Qty: 1 4RF prednisone 20 mg tablet 40 mg PO DAILY Qty: 14 0RF azithromycin [Zithromax Z-Abdifatah] 250 mg tablet See Rx Instructions .ROUTE .COMPLEX Qty: 6 0RF Rx Instructions: take 500 mg today (day 1), then 250 mg for 4 days (days 2-5) pregabalin [Lyrica] 150 mg Capsule 150 mg PO BID Rx Instructions: CANNOT TAKE WITH TRAMADOL loratadine 10 mg tablet 10 mg PO DAILY acetaminophen [Tylenol] 325 mg tablet 650 mg PO Q6H PRN (Reason: pain) Qty: 30 0RF albuterol sulfate 90 mcg/actuation aerosol powdr breath activated 2 inh inhalation Q6H PRN (Reason: shortness of breath or wheezing) Qty: 1 0RF albuterol sulfate 90 mcg/actuation HFA aerosol inhaler 2 puff inhalation QID PRN (Reason: shortness of breath or wheezing) Qty: 6.7 0RF cyclobenzaprine 10 mg tablet 10 mg PO BEDTIME PRN (Reason: muscle pain) Combivent Respimat 20-100 mcg/actuation mist 1 puff inhalation BID amlodipine 5 mg Tablet 5 mg PO DAILY Qty: 30 0RF Protocol: Hold for SBP< HOLD for SBP < : 90 Robitussin Cough and Cold CF 2.5-5-50 mg/5 mL liquid 20 ml PO Q4H PRN (Reason: cough) Qty: 118 0RF benzonatate 100 mg capsule 100 mg PO TID PRN (Reason: cough) Qty: 20 0RF albuterol sulfate 2.5 mg /3 mL (0.083 %) solution for nebulization 2.5 mg inhalation Q4-6H PRN (Reason: shortness of breath or wheezing) Qty: 75 0RF lisinopril 20 mg tablet 20 mg PO QAM escitalopram oxalate [Lexapro] 5 mg tablet 5 mg PO DAILY pregabalin [Lyrica] 150 mg capsule 150 mg PO DAILY atorvastatin 40 mg tablet 40 mg PO QAM escitalopram oxalate 10 mg tablet 10 mg PO DAILY carvedilol 3.125 mg tablet 3.125 mg PO BID hydroxyzine pamoate 50 mg capsule 50 mg PO DAILY PRN (Reason: anxiety) hydroxyzine pamoate 25 mg capsule 25 mg PO DAILY PRN (Reason: anxiety) metoprolol succinate 25 mg tablet extended release 24 hr 12.5 mg PO DAILY nicotine 7 mg/24 hr patch 24 hour 1 patch transdermal Q24H terbinafine HCl 1 % cream 1 appl topical BID sodium,potassium,mag sulfates [Suprep Bowel Prep Kit] 17.5-3.13-1.6 gram recon soln See Rx Instructions PO .COMPLEX Qty: 354 0RF Rx Instructions: DILUTE; drink full amount early evening before AND next morning at least 2 hr before procedure; follow w 960 mL water PO dexamethasone 1 mg tablet 1 mg PO ONCE Qty: 1 0RF guaifenesin 600 mg tablet extended release 12hr 600 mg PO BID Qty: 30 0RF sodium,potassium,mag sulfates [Suprep Bowel Prep Kit] 17.5-3.13-1.6 gram recon soln See Rx Instructions PO .COMPLEX Qty: 354 0RF Rx Instructions: DILUTE; drink full amount early evening before AND next morning at least 2 hr before procedure; follow w 960 mL water PO Print Language: Pashto
[2024-08-30 09:30] LABS: Troponin-I High Sensitivity 19.0 ng/L (<3.5-35.0)
[2024-08-30 09:33] LABS: Uric Acid 9.9 mg/dL (3.4-7.0)
[2024-08-30 09:43] LABS: Alanine Aminotransferase 41 U/L (0-40); Albumin Level 4.6 g/dL (3.5-5.0); Alkaline Phosphatase 124 U/L (39-117); Anion Gap 13 (12-20); Aspartate Amino Transferase 30 U/L (5-37); Blood Urea Nitrogen 20 mg/dL (9-16); Calcium 9.5 mg/dL (8.4-10.2); Carbon Dioxide 23 mmol/L (22-29); Chloride 105 mmol/L (96-108); Creatinine Clr Calc Pharmacy 74.1; Estimated Glomerular Filt Rate > 60; Magnesium 2.3 mg/dL (1.6-2.6); Potassium 4.3 mmol/L (3.3-5.1); Sodium 137 mmol/L (135-145); Total Protein 7.7 g/dL (6.5-8.0)
[2024-08-30] MEDS: Magnesium Sulfate/H2O 2 GM/50 ML PIGGYBACK IV (09:43)
[2024-08-30] MEDS: Albuterol Sulfate 2.5 MG, Albuterol/Iprat 2.5/0.5MG 3 ML 3 ML INHALE ×2 (09:59→11:44)
[2024-08-30 12:17] LABS: Troponin-I High Sensitivity 23.4 ng/L (<3.5-35.0)
--- NOTE | 2024-08-30 13:06 | MHC.EDTECH ---
Gave patient 2 turkey sandwiches
== END 2024-08-30 14:51 | disposition home or self-care (01) ==
PROVIDERS: Emergency Medicine; Registered Nurse Emergency; Emergency Provider Emergency Medicine; PCP Family Medicine
DX: J40 Bronchitis, not specified as acute or chronic (principal); J45.51 Severe persistent asthma with (acute) exacerbation; R06.00 Dyspnea, unspecified; R05.9 Cough, unspecified
CPT/HCPCS: 36415; 71046; 80048; 80076; 83735; 83880; 84484; 84550; 85025; 93005; 94640; 96365; 96366; 99284; 99285; J2919; J3475

== ENCOUNTER → 2024-08-30 08:21 | Outpatient (BNV) | payer MEDICAID, SELFPAY | PROVIDERS: Emergency Provider Emergency Medicine; PCP Family Medicine; Visit Provider Internal Medicine Cardiovascular Disease | DX: R94.31 Abnormal electrocardiogram [ECG] [EKG] (principal); R07.9 Chest pain, unspecified | CPT/HCPCS: 93010 ==

== ENCOUNTER → 2024-08-30 08:27 | Outpatient (BNV) | payer MEDICAID, SELFPAY | PROVIDERS: Emergency Provider Emergency Medicine; PCP Family Medicine; Visit Provider Radiology Diagnostic Radiology | DX: R07.9 Chest pain, unspecified (principal) | CPT/HCPCS: 71046 ==

== ENCOUNTER 2024-09-17 07:40 | Day surgery (SDC) | payer MEDICAID, SELFPAY ==
[2024-09-17 07:56] VITALS: BMI 32.5
[2024-09-17 08:13] VITALS: BP 126/83; PULSE 94; RESP 16; TEMP 36.5; O2SAT 96
--- NOTE | 2024-09-17 08:41 | MHC.SHP ---
Pre-Procedural Eval Section A - 24 Hr Update-Section A only Date of Service: 09/17/24 The patient is an INPATIENT: No Changes since office visit: No Cold of Flu in the past 2 weeks, No New Medical Problems, No Changes in Medication and No Patient answered all questions The patient has been examined within 24 hours of the surgical procedure. The History & Physical has been completed within 30 days and I have reviewed it.: Yes Section B - Complete if H&P > 30 days Chief Complaint: Carpal tunnel syndrome, right upper limb Allergies: Allergies Allergy/AdvReac Type Severity Reaction Status Date / Time Iodinated Contrast Media Allergy Severe Unknown Verified 08/30/24 08:32 levofloxacin Allergy Mild Rash Verified 08/30/24 08:32 ibuprofen (From MOTRIN) Allergy Unknown KIDNEY Verified 08/30/24 08:32 ISSUES mushroom AdvReac Mild VOMITING Verified 08/30/24 08:32 amlodipine AdvReac Unknown Swelling Verified 08/30/24 08:32 Plan Diagnosis/Plan: Unchanged I have reviewed the history and physical and performed a pertinent physical examination on my patient. No changes have occurred unless specified. Time Spent With Patient Time: Total time managing care of this patient today ____ minutes.
--- NOTE | 2024-09-17 08:42 | W.PM.OPN ---
Operative Note Operative Note Date of Service: 09/17/24 Narrative: Preop diagnosis: 1. Right Carpal tunnel syndrome Postop diagnosis: same Procedure: 1. Right Carpal tunnel release Surgeon: Suzette Bond MD Technical Services Manager: None Anesthesia: local block using 1% lidocaine with epinephrine Findings: Thickened transverse carpal ligament. EBL: Less than 5 mL Specimens: None Complications: None Disposition: Brought to recovery room in stable condition Plan: Follow-up for 10-14 days for wound check and suture removal Indications: The patient is 54 years old, with right carpal tunnel syndrome that has been unresponsive to nonoperative management. The risks and benefits of operative treatment including but not limited to risk of damage to blood vessels, nerves, tendons, infection, persistent pain, persistent symptoms, or possible need for additional surgery were discussed with the patient and the patient wishes to proceed with surgery. Procedure: Once consent was obtained a local block was performed using a combination of 1% lidocaine with epinephrine. The patient was then brought back to the operating suite and placed on the operative table in supine position. The right upper extremity was prepped and draped in a standard surgical fashion. Once assured that we had a good block, a 2.0 cm longitudinal incision was made centered over the carpal tunnel. The incision was made through the skin to the subcutaneous tissues using a #15 blade. Dissection was made down to the level of the transverse carpal ligament with care being taken to protect the palmar cutaneous nerve. Once the transverse carpal ligament was clearly visualized, a longitudinal incision was made in the transverse carpal ligament 1st using a #15 blade, then using tenotomy scissors under direct visualization. Care was taken to look for and protect the motor branch of the median nerve when seen in this area. Once satisfied with our carpal tunnel release the wound was copiously irrigated with normal saline and hemostasis was obtained with a brief period of local pressure. The skin edges were reapproximated with some 5.0 nylon suture material and a sterile dressing was applied. The patient appears to have tolerated the procedure well and with no complications. All digits were well vascularized at the conclusion of the case.
[2024-09-17 10:09] VITALS: BP 129/90; PULSE 77; RESP 16; O2SAT 97
== END 2024-09-17 10:11 | disposition home or self-care (01) ==
PROVIDERS: PCP Family Medicine; Visit Provider Orthopaedic Surgery
PROC: (CPT 64721; principal; 2024-09-17 12:10)
DX: G56.01 Carpal tunnel syndrome, right upper limb (principal); R20.0 Anesthesia of skin; R20.2 Paresthesia of skin; M79.641 Pain in right hand; I10 Essential (primary) hypertension; J45.909 Unspecified asthma, uncomplicated; D35.01 Benign neoplasm of right adrenal gland; M10.9 Gout, unspecified; M19.90 Unspecified osteoarthritis, unspecified site; Z90.5 Acquired absence of kidney; Z91.041 Radiographic dye allergy status; Z88.6 Allergy status to analgesic agent; Z88.1 Allergy status to other antibiotic agents; Z98.890 Other specified postprocedural states; F17.210 Nicotine dependence, cigarettes, uncomplicated
CPT/HCPCS: 64721; J0165; J2003

== ENCOUNTER → 2024-09-17 07:40 | Outpatient (BNV) | payer MEDICAID, SELFPAY | PROVIDERS: PCP Family Medicine; Visit Provider Orthopaedic Surgery | DX: G56.01 Carpal tunnel syndrome, right upper limb (principal) | CPT/HCPCS: 64721 ==

== ENCOUNTER 2024-09-26 12:34 | Outpatient (AMB) | payer MEDICAID, SELFPAY ==
--- NOTE | 2024-09-26 12:57 | A.OFFVIS_ITS ---
Vital Signs 09/26/24 12:58 Height 5 ft 8 in Weight 213 lb BMI 32.4 BP 108/67 Blood Pressure Location Lt brachial Position Sitting Pulse 104 H Pulse Oximetry (%) 98 Oxygen Delivery Method Room Air Intake Visit Reasons: Pre-op Colonoscopy Allergies Iodinated Contrast Media Allergy (Severe, Verified 08/30/24 08:32) Unknown levofloxacin Allergy (Mild, Verified 08/30/24 08:32) Rash ibuprofen (From MOTRIN) Allergy (Unknown, Verified 08/30/24 08:32) KIDNEY ISSUES mushroom Adverse Reaction (Mild, Verified 08/30/24 08:32) VOMITING amlodipine Adverse Reaction (Unknown, Verified 08/30/24 08:32) Swelling HPI HPI Pre-op Colonoscopy : Details: 54-year-old gentleman, active 20+ pack-year smoker, followed for allergic asthma asthma/COPD overlap syndrome.?He continues on Xolair, Advair, and albuterol MDI/Combivent with ood control of his underlying asthma symptoms. He denies recent exacerbations. 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 Arthritis Surgical History (Updated 07/27/24 @ 08:02 by Joyce Espino PA-C) History of rectal sphincterotomy History of hydrocelectomy History of colonoscopy History of left nephrectomy H/O neck surgery Previous back surgery Family History Mother Hypertension Asthma Father Medical history unknown Social History (Updated 07/27/24 @ 09:54 by Joyce Espino PA-C) Household Members: None Housing: Apartment Do you presently have visiting nurse or other home services: No Alcohol intake: current Alcohol intake frequency: holidays/special occasions only Alcohol type: beer Patient Tobacco Use Status: Current everyday Tobacco user Tobacco use type: Cigarette Years Smoked: (onset 18, 1ppd x 36yrs, 30+PYH) e-Cigarette/Vaping Use: Former Use Second Hand Smoke Exposure: No service: No Current occupational status: unemployed 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 Review of Systems Const Denies daytime sleepiness, Denies excessive sweating, Denies fatigue, Denies fever(s), Denies lethargy, Denies malaise, Denies night sweats, Denies snoring and Denies weight loss Eyes Denies blurry vision and Denies itchy eyes ENT Denies nasal congestion, Denies post nasal drip, Denies sinus pain, Denies sinus pressure and Denies other ( Thrush) Card Denies chest pain, Denies pedal edema, Denies dyspnea, Denies orthopnea and Denies paroxysmal nocturnal dyspnea Resp Denies cough, Denies hemoptysis, Denies excessive phlegm production, Denies dyspnea, Denies snoring and Denies wheezing GI Denies abdominal pain and Denies heartburn Musc Denies myalgias, Denies arthralgias and Denies joint swelling Skin/Breast Denies rash Neuro Denies memory loss and Denies seizure-like activity Psych Denies abnormal sleep pattern, Denies anxiety and Denies memory loss Endo Denies excessive sweating, Denies fatigue and Denies heat intolerance Paul/Lymph Denies easy bruising Aller/Immun Denies itchy eyes, Denies seasonal rhinorrhea and Denies wheezing Physical Exam Vital Signs: Last Vital Signs Pulse 104 H 09/26/24 12:58 BP 108/67 09/26/24 12:58 Pulse Ox 98 09/26/24 12:58 Oxygen Delivery Method Room Air 09/26/24 12:58 BMI result Body Mass Index 32.4 Const General: no acute distress and alert Nutritional Appearance: not obese Orientation/consciousness: Other orientation findings ( oriented) HEENT Head: Yes atraumatic Eyes General: appearance normal, both eyes and all related structures Sclerae: sclerae normal EOM: EOMs intact bilaterally Neck Neck: Yes supple Lymphatic: no lymphadenopathy noted Resp Effort & Inspection: normal respiratory effort and no use of accessory muscles Auscultation: clear to auscultation bilaterally Cardio Rate: regular rate Rhythm: regular rhythm Heart sounds: no gallops, no murmurs and no rubs Skin General skin exam: other ( warm) Extrem General: No clubbing, No cyanosis and No edema Assessment & Plan Assessment & Plan (1) Severe persistent asthma: Code(s): J45.50 - Severe persistent asthma, uncomplicated Category: Medical Plan: Well controlled on current regimen of Xolair, Advair, albuterol MDI, nebs, Combivent. Continue current regimen (2) Environmental allergies: Code(s): Z91.09 - Other allergy status, other than to drugs and biological substances Category: Medical Plan: Well controlled on Xolair and Singulair. Continue current regimen. (3) Nicotine dependence, cigarettes, uncomplicated: Comment: (onset 18, 1ppd x 36yrs, 30+PYH) Code(s): F17.210 - Nicotine dependence, cigarettes, uncomplicated Category: Medical Plan: Continues to follow-up with lung cancer screening program. (4) Preop pulmonary/respiratory exam: Code(s): Z01.811 - Encounter for preprocedural respiratory examination Category: Medical Plan: At this time patient is at low risk for pulmonary perioperative complications for the proposed colonoscopy either under general anesthesia, or monitored anesthesia care. Coding Level of Care Code Est Pt Level 4 (88329) Complex EM visit Add On G2211 Diagnoses Severe persistent asthma J45.50 Environmental allergies Z91.09 Nicotine dependence, cigarettes, uncomplicated F17.210 Preop pulmonary/respiratory exam Z01.811
[2024-09-26 12:58] VITALS: BP 108/67; PULSE 104; O2SAT 98; BMI 32.4
--- OUTSIDE RECORDS SUMMARY | 2024-09-26 13:08 | XMS_ITS | Patient Health Record ---
Author Organization [facility] Address [address] [place] [address] Care Team Providers Care Ve Teacher Name Role Phone Aleksandr Spangler Jr [phone] Reason For Referral No Information Plan Of Treatment No Information
--- OUTSIDE RECORDS SUMMARY | 2024-09-26 13:08 | XMS_ITS | Clinical Summary ---
Author Organization [facility] Address [address] [place] [address] Care Team Providers Care Draw Hand Name Role Phone Mirtha Lunsford MD Primary Care Provider [phone]- [phone] Victoria Radford PharmD Unavailable Acosta Sinha PHYSICAL EDUCATION DEPARTMENT CHAIR Unavailable Unavailable Flip Wan MD Unavailable [phone] Dmitri Sequeira MD Unavailable Stephane Pisano MD Unavailable Melvin Claros MD Unavailable Artur Aguilar MD Unavailable [phone] Allergies Active Allergy Reactions Criticality Noted [...] MORNING 90 tablet 1 07/26/19 25 Active lidocaine (Lidoderm) 5 % patchIndication [...] MORNING 90 tablet 1 08/29/19 25 Active pregabalin (Lyrica) 150 MG capsuleIndicati ons:Chronic bilateral low back pain, unspecified whether sciatica present TAKE 1 CAPSULE BY MOUTH TWICE DAILY IN THE MORNING AND IN THE EVENING 60 capsule 09/01/19 25 Active albuterol (Ventolin HFA) 108 (90 Base) MCG/ACT inhalerIndicati ons:Moderate persistent asthma without complication INHALE 2 PUFFS BY MOUTH EVERY 4 HOURS NEEDED FOR WHEEZING OR SHORTNESS OF BREATH 18 g 1 09/22/19 25 Active loratadine (Claritin) 10 MG tabletIndicatio ns:Seasonal allergies TAKE 1 TABLET BY MOUTH EVERY MORNING 90 tablet 1 03/06/19 25 2024 Discontinued albuterol (Ventolin HFA) 108 (90 Base) MCG/ACT inhalerIndicati ons:Moderate persistent asthma without complication INHALE 2 PUFFS BY MOUTH EVERY 4 HOURS NEEDED FOR WHEEZING OR SHORTNESS OF BREATH 18 g 1 08/01/19 25 2024 Discontinued pregabalin (Lyrica) 150 MG capsuleIndicati ons:Chronic bilateral low back pain, unspecified whether sciatica present TAKE 1 CAPSULE BY MOUTH TWICE DAILY IN THE MORNING AND IN THE EVENING 60 capsule 08/03/19 25 2024 Discontinued Active Problems Problem Noted [...] pain 04/16/2024 Overview (04/16/2024): -Patient followed at [facility] with Dr. Agueda Claros DO. [...] and nutrition interventions discussed. -Patient followed at [facility] with Dr. Agueda [...] retention. I spoke with JULIETA Wood at [facility] pain clinic and they want the last CT scan faxed at [phone], they will fu with patient this week. Order lumbar MRI ro cord compromise Other specified health status 07/02/2022 Overview (06/18/2024): -next physical exam due after 06/18/25 -eye care facilitated by [facility] -dental home is [facility] -health care proxy filed 12/19/23 Assessment & Plan (06/18/2024 3:03 PM EDT): -next physical exam due after 06/18/25 -eye care facilitated by [facility] -dental home is [facility] -health care proxy filed 12/19/23 Assessment & Plan (12/19/2023 9:30 AM EDT): -next physical exam due after 05/29/2024 -eye care facilitated by [facility] -dental home is [facility] -health care proxy filed 12/19/23 Assessment & Plan (05/30/2023 10:13 AM EDT): -next physical exam due after 02/28/2023 -eye care facilitated by [facility] -dental home is [facility] -health care proxy given on 05/30/2023 [...] benign adenoma. Biochemical workup showed mass not escrow secretary including dexamethasone suppression test. Repeat CT [...] benign adenoma. Biochemical workup showed mass not escrow secretary including dexamethasone suppression test. Repeat CT [...] benign adenoma. Biochemical workup showed mass not escrow secretary including dexamethasone suppression test. Repeat CT done 2019. Follow up Dr. Aguilar 1 year recommended. -referral placed 05/30/23 Assessment & Plan (01/24/2023 9:53 AM EST): Seen by Dr. Aguilar 05/08/2021 (prior was followed by Dr. Moseley) Hx incidental finding right adrenal nodule found in CT preformed in ER Feb 2018 c/w benign adenoma. Biochemical workup showed mass not escrow secretary including dexamethasone suppression test. Repeat CT [...] plan. Moderate persistent asthma 02/24/2022 Overview (02/02/2024): -trolley car mechanic Dr. Wan seen 02/02/24 -Well controlled on current regimen of Xolair, Combivent, Advair, albuterol MDI. -last prednisone use 12/28/23 for exacerbation, given by pulmonary Assessment & Plan (06/18/2024 3:06 PM EDT): -trolley car mechanic Dr. Wan seen 02/02/24 -Well controlled on current regimen of Xolair, Combivent, Advair, albuterol MDI. -last prednisone use 12/28/23 for exacerbation, given by pulmonary Assessment & Plan (02/23/2024 10:09 AM EST): -trolley car mechanic Dr. Wan seen 02/02/24 -Well controlled on current regimen of Xolair, Combivent, Advair, albuterol MDI. -last prednisone use 12/28/23 for exacerbation, given by pulmonary Assessment & Plan (05/30/2023 12:31 PM EDT): -trolley car mechanic Dr. Wan seen 12/2022 -Well controlled on current regimen of Xolair, Combivent, Advair, albuterol MDI. Continue current Assessment & Plan (01/24/2023 9:53 AM EST): -trolley car mechanic Dr. Wan seen 12/2022 -Well controlled on current regimen of Xolair, Combivent, Advair, albuterol MDI. Continue current Assessment & Plan (12/20/2022 8:01 PM EDT): Few wheezing on lung exam,reports feeling well -offered NBZ tx here but refuse states will get at home ,and got pump tx before coming that may cause elevated HR -continue his regular inh and montelukast -continue care w trolley car mechanic -planned apt for next month -advised to get booster for COVID 19 at vaccine clinic, pt s/p p20 and flu vaccine already Assessment & Plan (11/01/2022 9:02 AM EDT): -trolley car mechanic Dr. Wan -continue Flovent -continue Singulair -continue albuterol prn Assessment & Plan (06/28/2022 10:09 AM EDT): Normal lung exam. advised to call Dr. Wan, his trolley car mechanic, for kristan't. continue Flovent, Singulair, may use [...] Essential hypertension 08/19/2020 Overview (06/18/2024): -followed by [facility] -echo 03/31/23 EF 60-65% no changes compared to02/2017 -Blood pressure is slightly above goal, recommended monitoring at home. -Continue lifestyle modifications -Continue current medications -cardiology note from 04/12/23, no changes, follow up 6 months Assessment & Plan (06/18/2024 3:06 PM EDT): -followed by [facility] -echo 03/31/23 EF 60-65% no changes compared to02/2017 -Blood pressure is slightly above goal, recommended monitoring at home. -Continue lifestyle modifications -Continue current medications -cardiology note from 04/12/23, no changes, follow up 6 months Assessment & Plan (11/03/2023 10:12 AM EDT): -followed by [facility] -echo 03/31/23 EF 60-65% no changes compared to02/2017 -Blood pressure is at goal -Continue lifestyle modifications -Continue current medications -cardiology note from 04/12/23, no changes, follow up 6 months Assessment & Plan (05/30/2023 12:31 PM EDT): -followed by [facility] -echo 03/31/23 EF [...] -atorvastatin increased from 40mg to 80mg by [facility] 08/2023 -continue lifestyle modifications Assessment & Plan (06/18/2024 3:03 PM EDT): Lab Results Component Value Date CHOL 183 08/26/2023 CHOL 237 (H) 05/30/2023 TRIG 78 08/26/2023 TRIG 139 05/30/2023 TRIG 159 (H) 03/05/2022 HDL 78 08/26/2023 HDL 79 05/30/2023 LDLCHOLCAL 90 08/26/2023 LDLCHOLCAL 131 (H) 05/30/2023 -atorvastatin increased from 40mg to 80mg by [facility] 08/2023 -continue lifestyle modifications Assessment & Plan [...] as pharmacomtherapy, [facility], and [facility] pharmacy smoking cessation clinic -14mg and [...] as pharmacomtherapy, [facility] smoking cessation group, and [facility] pharmacy smoking cessation clinic -14mg and [...] as pharmacomtherapy, [facility] smoking cessation group, and [facility] pharmacy smoking cessation clinic -14mg and [...] diet and exercise,discussed healthy life style -discussed code and test clerk referral -referred today Acute dehydration 09/23/2022 10/27/2022 [...] is for one week only and not halfway. Acute idiopathic gout involv ing toe of [...] Encounters Date Type Department Care Team Description 09/21/2024 Refill [facility] [address] [place] [address] Mirtha Lunsford MD Moderate persistent asthma without complication 08/31/2024 Refill [facility] [address] [place] [address] Mirtha Lunsford MD Chronic bilateral low back pain, unspecified whether sciatica present 08/30/2024 Orders Only GENERIC EXTERNAL DATA DEPARTMENT Provider, Generic External Data 08/26/2024 Refill [facility] [address] [place] [phone] Mirtha Lunsford MD Seasonal allergies 08/12/2024 Refill [facility] [address] [place] [phone] Mirtha Lunsford MD Sacroiliac joint dysfunction; Rash 08/02/2024 Refill [facility] [address] [place] [phone] Kalli Henderson MD Chronic bilateral low back pain, unspecified whether sciatica present 07/30/2024 Refill [facility] [address] [place] [phone] Mirtha Lunsford MD Moderate persistent asthma without complication 07/24/2024 Refill [facility] [address] [place] [phone] Victoria Radford, PharmD Dyslipidemia 07/18/2024 8:00 AM EDT Office Visit [facility] [address] [place] [phone] Rebecca Capps Dental calculus (Primary Dx); Dental plaque 07/15/2024 Orders Only GENERIC EXTERNAL DATA DEPARTMENT Provider, Generic External Data 07/03/2024 Refill [facility] [address] [place] [phone] Mirtha Lunsford MD Chronic bilateral low back pain, unspecified whether sciatica present from Last 3 Months Immunizations Immunization Administration [...] your housing situation today? I have nava georgi 08/29/[address] you li [...] Description 02/11/2025 8:00 AM EST Office Visit [facility] [address] [place] [address] Rebecca Capps Health Maintenance Due Date Last Done Comments CT Colonography 1970 FIT DNA/Cologuard 1970 FIT 1970 FOBT 1970 Sigmoidoscopy 1970 COVID-19 Vaccine ( season) 2023 01/24/2023, 02/18/2022, 02/18/2022, Additional history exists Colonoscopy 08/23/2024 08/24/2023, 06/21, [...] Hepatitis A Vaccines Completed 05/30/2023, 11/01/2022, 06/28/2022 HIV Screening Completed 02/28/2024, 0 09/2023, 03/12/2022 Hepatitis C Screening Completed 02/28/2024 [...] Procedure Name Priority Date/Time Associated Diagnosis Comments HIGH SENSITIVITY TROPONIN I Routine 08/30/2024 11:48 AM EDT MAGNESIUM Routine 08/30/2024 8:57 AM EDT BASIC METABOLIC PANEL Routine 08/30/2024 8:57 AM EDT HEPATIC FUNCTION PANEL Routine 8:57 AM EDT URIC ACID Routine 08/30/2024 8:57 AM EDT HIGH SENSITIVITY TROPONIN I Routine 08/30/2024 8:57 AM EDT B TYPE NATRIURETIC PEPTIDE (BNP) Routine 08/30/2024 8:57 AM EDT CBC WITH AUTO DIFFERENTIAL Routine 08/30/2024 8:57 [...] QL NAAT Routine 07/15/2024 1:22 AM EDT HEPATITIS C AB W/REFL TO [...] Recently Relevant to Health Maintenance Results * High Sensitivity Troponin I (08/30/2024 11:48 AM EDT) Only the most recent of4 resultswithin the time period is included. Pathologist [facility] TROPONIN I HIGH SENSITIVITY 23.4 <3.5 - 35.0 ng/L [facility] Comment:The Lamb high sens itivity Troponin-I results should beused in conjunction with other diagnostic information suchas ECG, clinical observations and information, and patientsymptoms to aid in the diagnosis of LA. 08/30/2024 11:4 8 AM EDT 08/30/2024 11:51 AM EDT us Generic External Data Provider LAB BLOOD ORDERAB LES Final Result [facility] [address] [place] [phone] * (ABNORMAL) CBC auto differential (08/30/2024 8:57 AM EDT) Only the most recent of2 resultswithin the time period is included. White Blood Count 12.0(H) 4.8 - 10.8 X10*3/uL [facility] Red Blood Count 5.24 4.60 - 5.80 X10*6/uL [facility] Hemoglobin 16.2 14.0 - 18.0 g/dl [facility] Hematocrit 47.6 42.0 - 52.0 % [facility] Mean Corpuscular Volume 90.8 80.0 - 98.0 fL [facility] Mean Corpuscular Hemoglobin 30.9 27.0 - 33.0 pg [facility] Mean Corpuscular HGB Conc 34.0 31.0 - 36.0 g/dl [facility] Red Cell Distribution Width 13.2 11.0 - 16.0 % [facility] Platelet Count 255 160 - 400 X10*3/uL [facility] Mean Platelet Volume 11.3 9.4 - 12.4 fL [facility] Neutrophils Percent Auto 65.9 45 - 73 % [facility] Imm Gran Pct Auto 4.3(H) 0.0 - 0.4 % [facility] Lymphocytes Percent Auto 15.8(L) 20 - 40 % [facility] Monocytes Percent Auto 8.1 2 - 11 % [facility] Eosinophils Percent Auto 5.1(H) 0 - 4 % [facility] Basophils Percent Auto 0.8 0 - 2 % [facility] NRBC Pct Auto 0.0 0.0 - 0.2 /100WBC [facility] Neutrophils Absolute Auto 7.9 2.0 - 8.3 x10*3/uL [facility] Imm Gran Abs Auto 0.52(H) 0.00 - 0.03 X10*3/uL [facility] Lymphocytes Absolute Auto 1.9 1.2 - 4.9 X10*3/uL [facility] Monocytes Absolute Auto 1.0 0.1 - 1.2 X10*3/uL [facility] Eosinophils Absolute Auto 0.6(H) 0.0 - 0.4 X10*3/uL [facility] Basophils Absolute Auto 0.1 0.0 - 0.2 X10*3/uL [facility] NRBC Abs Auto 0.000 0.0 - 0.012 X10*3/uL [facility] 08/30/2024 8:57 AM EDT 08/30/2024 9:02 AM EDT us Generic External Data Provider LAB BLOOD ORDERAB LES Final Result Performing Organization Address [facility] Co de Phone Number [facility] [address] [place] [phone] * (ABNORMAL) Uric acid (08/30/2024 8:57 AM EDT) Uric Acid 9.9(H) 3.4 - 7.0 mg/dL [facility] 08/30/2024 8:57 AM EDT 08/30/2024 9:02 AM EDT us Generic External Data Provider LAB BLOOD ORDERAB LES Final Result Performing Organization Address [facility] Co de Phone Number [facility] [address] [place] [phone] * B Type Natriuretic Peptide (BNP) (08/30/2024 8:57 AM EDT) B Type Natriuretic Peptide <10 <100 pg/mL [facility] 08/30/2024 8:57 AM EDT 08/30/2024 9:02 AM EDT us Generic External Data Provider LAB BLOOD ORDERAB LES Final Result Performing Organization Address [facility] Co de Phone Number [facility] [address] [place] [phone] * Magnesium (08/30/2024 8:57 AM EDT) Magnesium 2.3 1.6 - 2.6 mg/dL [facility] 08/30/2024 8:57 AM EDT 08/30/2024 9:02 AM EDT us Generic External Data Provider LAB BLOOD ORDERAB LES Final Result Performing Organization Address City/[facility]/ZIP Co de Phone Number [facility] [address] [place] [phone] * (ABNORMAL) Hepatic Function Panel (08/30/2024 8:57 AM EDT) [facility] Bilirubin, Total 0.9 0.0 - 1.0 mg/dL [facility] Bilirubin, Direct 0.3 0.0 - 0.5 mg/dL [facility] Aspartate Amino Transferase 30 5 - 37 U/L [facility] Alanine Aminotransferase 41(H) 0 - 40 U/L [facility] Total Protein 7.7 6.5 - 8.0 g/dL [facility] Albumin Level 4.6 3.5 - 5.0 g/dL [facility] Alkaline Phosphatase 124(H) 39 - 117 U/L [facility] 08/30/2024 8:57 AM EDT 08/30/2024 9:02 AM EDT us Generic External Data Provider LAB BLOOD ORDERAB LES Final Result [facility] [address] [place] [phone] * (ABNORMAL) Basic Metabolic Panel (08/30/2024 8:57 AM EDT) [facility] Sodium 137 135 - 145 mmol/L [facility] Potassium 4.3 3.3 - 5.1 mmol/L [facility] Chloride 105 96 - 108 mmol/L [facility] Carbon Dioxide 23 22 - 29 mmol/L [facility] Anion Gap 13 12 - 20 [facility] Urea Nitrogen (BUN) 20(H) 9 - 16 mg/dL [facility] Creatinine, Serum 1.20 0.5 - 1.4 mg/dL [facility] Creatinine Clr Calc Pharmacy 74.1 [facility] Comment:eGFR (calculated fro m the MDRD study equation) and eCrCl(calculated from the Cockcroft-Gault equation) are based ondifferent parameters and may not yield comparable results.If eCrCl result is absurd, please check patient'sheight/weight. Estimated Glomerular Filt Rate >60 [facility] Comment:Chronic Kidney Disea se: Estimated GFR < 60 mL/min/1.58h5Yowzjd Kidney Disease: Estimated GFR < 15 mL/min/1.73m2 Glucose 105 60 - 115 mg/dL [facility] Calcium 9.5 8.4 - 10.2 mg/dL [facility] 08/30/2024 8:57 AM EDT 08/30/2024 9:02 AM EDT us Generic External Data Provider LAB BLOOD ORDERAB LES Final Result Performing Organization Address City/State/[facility] Co de Phone Number [facility] [address] [place] [phone] * XR Chest 2 Views (08/30/2024 8:10 AM EDT) Anatomical Region Laterality Modality Chest Radiographic Ursula ging 08/30/2024 8:10 AM EDT Narrative 08/30/2024 9:17 AM EDT [address] [address] XRay Report Signed Patient: Yuri Stokes MR#: [id number] : 1970 Acct:[id number] Age/Sex: 54 / M ADM Date: 08/30/24 Loc: .ED Attending Dr: Ordering Physician: Jena Corrales DO Date of Service: 08/30/24 Procedure(s): XR chest 2V Accession Number(s): [id number] cc: Mirtha Lunsford MD; Jena Corrales DO [...] in OV> 08/30/24913 DD/ 9 TD/TT: 08/30/24908 Music Critic: Procedure Note Donotuseinterpreter, Image - 08/30/[address] [address] XRay Report Signed Patient: Yuri Stokes MR#: [id number] : 1970Acct:[id number] Age/Sex: 54 / MADM Date: 08/30/24 Loc: .ED Attending Dr: Ordering Physician: Jena Corrales DO Date of Service: 08/30/24 Procedure(s): XR chest 2V Accession Number(s): [id number] cc: Mirtha Lunsford MD; Jena Corrales DO [...] in OV> 08/30/24913 DD/ 9 TD/TT: 08/30/24908 Music Critic: [facility] External Provider IMG XR PROCEDURES Edited Result - Final * XR Chest 1 View (07/15/2024 1:48 AM EDT) Anatomical Region Laterality Modality Chest Radiographic Ursula ging 07/15/2024 1:48 AM EDT Narrative 07/15/2024 1:49 AM EDT [address] [address] XRay Report Signed Patient: Yuri Stokes MR#: [id number] : 1970 Acct:[id number] Age/Sex: 54 / M ADM Date: 07/15/24 Loc: HO.ED Attending Dr: Ordering Physician: Javed Olsen MD Date of Service: 07/15/24 Procedure(s): XR chest 1V Accession Number(s): [id number] cc: Mirtha Lunsford MD; Javed Olsen MD [...] OV> 07/15/24 014 DD/ 7 TD/TT: 07/15/24147 Music Critic: Procedure Note Donotuseinterpreter, Image - 07/15/[address] [address] XRay Report Signed Patient: Yuri Stokes MR#: [id number] : 1970Acct:[id number] Age/Sex: 54 / MADM Date: 07/15/24 Loc: HO.ED Attending Dr: Ordering Physician: Javed Olsen MD Date of Service: 07/15/24 Procedure(s): XR chest 1V Accession Number(s): [id number] cc: Mirtha Lunsford MD; Javed Olsen MD [...] This document has been electronically signed by: Adrina Park MD on 07/15/2024 01:48:47 Dictated By: Adrian Park MD Signed By: <Electronically signed by Adrian Park MD in OV> 07/15/24148 DD/ 7 TD/TT: 07/15/24147 Music Critic: [facility] External Provider IMG XR PROCEDURES Edited Result - Final * SARS-CoV-2 RNA, Influenza A/B, and RSV RNA, Ql NAAT (07/15/2024 1:22 AM EDT) Influenza A PCR NEGATIVE Negative [facility] Influenza B PCR NEGATIVE Negative [facility] Resp Syncy Virus RNA Qual PCR NEGATIVE Negative [facility] SARS COV2 PCR NEGATIVE Negative [facility] Comment:All test results mus t be [...] use by authorized laboratories.Testing performed on the [employer] GeneXpert utilizingreal-time RT-PCR.All SARS CoV2 and positive influenza A/B results arereported to [facility]. 07/15/2024 1:22 AM EDT 07/15/2024 1:28 AM EDT us Generic External Data Provider LAB MICROBIOLOGY - GENERAL ORDERABLES Final Result [facility] [address] [place] [address], [place] [phone] * (ABNORMAL) Comprehensive Metabolic Panel (07/15/2024 1:22 AM EDT) Sodium 141 135 - 145 mmol/L [facility] Potassium 4.1 3.3 - 5.1 mmol/L [facility] Chloride 110(H) 96 - 108 mmol/L [facility] Carbon Dioxide 20(L) 22 - 29 mmol/L [facility] Anion Gap 15 12 - 20 [facility] Urea Nitrogen (BUN) 15 9 - 16 mg/dL [facility] Creatinine, Serum 1.06 0.5 - 1.4 mg/dL [facility] Creatinine Clr Calc Pharmacy 88.4 [facility] Comment:eGFR (calculated fro m the MDRD study equation) and eCrCl(calculated from the Cockcroft-Gault equation) are based ondifferent parameters and may not yield comparable results.If eCrCl result is absurd, please check patient'sheight/weight. Estimated Glomerular Filt Rate >60 [facility] Comment:Chronic Kidney Disea se: Estimated GFR < 60 mL/min/1.77f6Zwphxv Kidney Disease: Estimated GFR < 15 mL/min/1.73m2 Glucose 93 60 - 115 mg/dL [facility] Calcium 8.8 8.4 - 10.2 mg/dL [facility] Bilirubin, Total 0.3 0.0 - 1.0 mg/dL [facility] Aspartate Amino Transferase 29 5 - 37 U/L [facility] Alanine Aminotransferase 34 0 - 40 U/L [facility] Total Protein 6.8 6.5 - 8.0 g/dL [facility] Albumin Level 4.1 3.5 - 5.0 g/dL [facility] Alkaline Phosphatase 113 39 - 117 U/L [facility] 07/15/2024 1:22 AM EDT 07/15/2024 1:28 AM EDT us Generic External Data Provider LAB BLOOD ORDERAB LES Final Result Performing Organization Address [facility] Co de Phone Number [facility] [address] [place] [phone] * Hepatitis C Antibody with Reflex to HCV, RNA, Quantitative, Real-Time PCR (02/28/2024 9:26 AM EST) Pathologist [facility] Hepatitis C Antibody Nonreactive Nonreactive [facility] Comment:Antibodies to HCV no t detected; does not exclude early acuteHCV infection. Blood Venous blood specimen / Unknown 02/28/2024 9:26 AM EST 02/28/2024 11:15 AM EST Mirtha Lunsford MD LAB BLOOD ORDERABLES Final Result Performing Organization Address [facility] de Phone Number [facility] [address] [place] [address] [phone] * HIV-1/2 Antigen and Antibodies, Fourth Generation, with Reflexes (02/28/2024 9:26 AM EST) [facility] HIV AB/AG Nonreactive Nonreactive [facility] Comment:HIV-1 p24 Ag and/or HIV-1/HIV-2 Ab not detected.A test result that is nonreactive does not exclude thepossibility of exposure to or infection with HIV-1 and/orHIV-2. Nonreactive results in this assay for individualswith prior exposure to HIV-1 and/or HIV-2 may be due toantigen and antibody levels that are below the limit ofdetection of this assay.The [employer] HIV Ag/Ab Combo assay result andsupplemental assay results should be interpreted inconjunction with the patient's clinical presentation,history and other laboratory results. If the results areinconsistent with clinical evidence, additional testing issuggested to confirm the result. Blood Venous blood specimen / Unknown 02/28/2024 9:26 AM EST 02/28/2024 11:15 AM EST Mirtha Lunsford MD LAB BLOOD ORDERABLES Final Result Performing Organization Address City/[facility]/ZIP Co de Phone Number [facility] [address] [place] [phone] * Lipid Panel, Standard (08/26/2023 9:11 AM EDT) Triglycerides 78 <150 mg/dL [facility] Comment:Desirable Triglyceri de: less than 150 mg/dLBorderline High Triglyceride 150-199 mg/dLHigh Triglyceride: 200-499 mg/dLVery High Triglyceride: greater than or equal to 5OO mg/dL Cholesterol 183 <200 mg/dL [facility] Comment:Desirable Cholestero l: less than 200 mg/dLBorderline High Cholesterol: 200-239 mg/dLHigh Cholesterol: greater than 239 mg/dL LDL Cholesterol Calculated 90 <100 mg/dL [facility] Comment:Desirable LDL: less than 100 mg/dLNear Optimal/Above Optimal LDL: 110- 129 mg/dLBorderline High LDL: 130-159 mg/dLHigh LDL: 160-189 mg/dLVery High LDL: greater than or equal to 190 mg/dL HDL Cholesterol 78 >40 mg/dL [facility] Comment:Desirable HDL: great er than 40 mg/dL Note: This HDL assay may give artificially low results in patients with liver disease. 08/26/2023 9:11 AM EDT 08/26/2023 11:07 AM EDT Mirtha Lunsford MD LAB BLOOD ORDERABLES Final Result Performing Organization Address City/[facility]/ZIP Co de Phone Number [facility] [address] [place] [phone] * (ABNORMAL) Hm Colonoscopy (07/08/2023) Colonoscopy Abnormal( A) Normal Comment:Multiple polyps with Dr. Pisano, repeat 1 year Historical Provider HEALTH MAINTENANCE Edited Result - Final from Last 3 Months or Most Recently Relevant to Health Maintenance Insurance [facility] MEDICAID STAND ADULT Advance Directives Documents on File Type Date Recorded Patient Ordinary Seaman Expl anation Advance Directives and Living Will 12/19/2023 Health Care Proxy 12/19/23 Care Teams Draw Hand Relationship Specialty Start Date End Date Mirtha Lunsford MD [address] [place] [address] PCP - General Family Medicine 03/04/15 Victoria Radford, GypsyD [address] [place] [address] Pharmacist Internal Medicine 08/03/22 Acosta Sinha FNP [address] [place] [address] Nurse Practitioner Family Medicine 01/17/23 Flip Wan MD [address] [place] [address] Pulmonary Disease 02/02/24 Dmitri Sequeira MD [address] [facility] [address] [place] [address] Nephrology 02/10/24 Stephane Pisano MD 11 [facility] 3rd [place] [address] General Surgery 02/10/24 Melvin Claros MD [address] [place] [address] Cardiology 04/16/24 Artur Aguilar MD [address] [place] [address] Endocrinology 05/31/24 Ghassan Fletcher Mat RepairerWeapons Mechanic 02/07/24June,Joyce Hoover PA-C Lung Cancer Screening Program Radiology 07/31/24
--- OUTSIDE RECORDS SUMMARY | 2024-09-26 13:08 | XMS_ITS | Clinical Summary ---
Author Organization [address] [facility] Address [address] [place] [address] Phone Care Team Providers Care Classified Advertising Supervisor Name Role Phone Lucrecia Pitt MD Primary Care Provider + [phone] Medications ketoconazole (NIZORAL) 2 % cream Apply topically 1 (one) time each day. 30 g 2 Active Hospital, Clinic, or Other Facility Administered Medication Ordered Dose Route Frequency Start Date End Date Status lidocaine (PF) (XYLOCAINE-MPF) 1 % injection 0.5 mLIndications:Acute gout of left foot, unspecified cause .5 mL inj Once PRN Procedure 09/19/2024 09/19/2024 Ended triamcinolone acetonide (KENALOG-40) 40 mg/mL injection 20 mgIndications:Acute gout of left foot, unspecified cause 20 mg IAtc Once PRN Procedure 09/19/2024 09/19/2024 Ended Encounters Date Type Department Care Team Description 09/19/2024 9:00 AM EDT Office Visit Orthopedic Surgery - [place] [address] [phone] Nick Hooper, DPM Acute gout of left foot, unspecified cause (Primary Dx); Dermatophytosis of nail; Tinea pedis of both feet from Last 3 Months Surgical History Surgery Date Site/Laterality Comments NECK [...] Sexual Orientation Not on file Obstetrics History Last Filed Vital Signs Vital Sign Reading Time Taken Comments Blood Pressure - - Pulse - - Temperature - - Respiratory Rate - - Oxygen Saturation - - Inhaled Oxygen Concentration - - Weight 96.6 kg (213 lb) 09/19/2024 8:47 AM EDT Height 167.6 cm (5' 6 ) 09/19/2024 8:47 AM EDT Body Mass Index 34.38 09/19/2024 8:47 AM EDT Plan of Treatment Upcoming Encounters Date Type Department Care Team (Late st Contact Info) Description 11/05/2024 10:15 AM EDT Office Visit Orthopedic Surgery - [place] [id number] [phone] Nick Hooper, DPM [address] [address] Health Maintenance Due Date Last Done Comments Colorectal Cancer Screening: Colonoscopy 03/18/2023 Social Influencers of Health Screening 03/18/2023 Depression Screening 02/22/2024 Influenza Vaccine (#1) 2024 , 11/01/2022, 02/18/2022, Additional history exists DTaP,Tdap,and Td Vaccines (4 - Td or Tdap) 10/24/2024 10/24/2014, 11/15/2011, 05/26/2007 Hypertension/CHF/CAD Annual BMP Blood Test 08/30/2025 08/30/2024, 08/26/2024, 08/25/2024, Additional history exists Cholesterol Screening (Lipid Panel) 08/25/2028 08/26/2023 Zoster Vaccines Completed 04/27/2021, 2021 Pneumococcal Vaccine: 50+ Years Completed 11/01/2022, 10/24/2014, 06/25/2014, Additional history exists Hepatitis B Vaccines Completed 01/24/2023, 08/02/2022, 06/28/2022 Hepatitis A Vaccines Aged Out 05/30/2023, 11/01/2022, 06/28/2022 No longer eligible based on patient's age to complete this topic COVID-19 Vaccine Completed 11/10/2023, 05/2022, 02/18/2022, Additional history exists HIV Screening Completed 02/28/2024 Hepatitis C Screening Completed 02/28/2024 HIB Vaccines Aged Out No longer eligi [...] on patient's age to complete this topic Procedures Procedure Name Priority Date/Time Associated Diagnosis Comments INJECTION TENDON OR LIGAMENT Routine 09/19/2024 9:00 AM EDT Acute gout of left foot, unspecified cause from Last 3 Months Results * Injection tendon or ligament (09/19/2024 9:00 AM EDT) Nick Da Silva DPM - 09/19/2024 9:00 AM EDT Nick Hooper DPM 09/19/2024 12:36 PM Injection tendon or ligament Indications: pain Details: 25 G needle Medications: 0.5 mL lidocaine (PF) 1 %; 20 mg triamcinolone acetonide 40 mg/mL Informed Consent: Site: Foot ligament tendon us Nick Hooper DPM IN CLINIC/BEDSIDE ORDERAB LES Final Result from Last 3 Months Insurance MEDICAID - [place] Care Teams Classified Advertising Supervisor Relationship Specialty Start Date End Date Lucrecia Pitt MD 230 [facility] 1 [place] [address] PCP - General 09/23/22
--- OUTSIDE RECORDS SUMMARY | 2024-09-26 13:08 | XMS_ITS | Encounter Summary ---
Author Organization [facility] Address [address] [facility] [address] [place] [address] Phone Care Team Providers Care Prints And Drawings Curator Name Role Phone Tavia Mosquera Primary Care Provider [phone] Reason for Referral * Imaging (Routine) - Closed Specialty Diagnoses / Procedures Referred By Contac t Referred To Contact Diagnoses Right kidney absent Procedures Ultrasound renal limited Dmitri Sequeira MD Phone: tel: fax: Referral ID Status Reason Start Date Expiration Date Visits Re quested Visits Authorized [id number] Closed 09/22/2023 09/21/2024 1 1 Encounter Details Date Type Department Care Team (Latest Contact Info) Description 09/22/2023 Office Communication [facility] 100 [facility] [address] [place] [address] Dmitri Sequeira MD [address] [facility] [address] [place] [phone] Right kidney absent (Primary Dx) Social History Tobacco Use Types Packs/Day Years Used Date Smoking Tobacco: Every Day Cigarettes 0.3 42.6 Started: 02/21/1982 Alcohol Use Standard Drinks/Week Comments [...] saw him--put on schedule 09/22/23 so I pants closer write a note * Telephone Encounter - [...] Primary documented in this encounter Care Teams Prints And Drawings Curator Relationship Specialty Start Date End Date [facility] [address] [place] [id number] PCP - General 04/29/22 documented as of this encounter
== END 2024-09-26 13:23 | disposition home or self-care (01) ==
LOC: HO.HPS 12:35
PROVIDERS: PCP Nurse Practitioner Family; Visit Provider Internal Medicine Pulmonary Disease
DX: J45.50 Severe persistent asthma, uncomplicated (principal); Z91.09 Other allergy status, other than to drugs and biological substances; F17.210 Nicotine dependence, cigarettes, uncomplicated; Z01.811 Encounter for preprocedural respiratory examination
CPT/HCPCS: 99214

== ENCOUNTER → 2024-09-26 12:34 | Outpatient (BNVA) | payer MEDICAID, SELFPAY | PROVIDERS: PCP Nurse Practitioner Family; Visit Provider Internal Medicine Pulmonary Disease | DX: Z01.811 Encounter for preprocedural respiratory examination (principal); J45.50 Severe persistent asthma, uncomplicated; F17.210 Nicotine dependence, cigarettes, uncomplicated; Z91.09 Other allergy status, other than to drugs and biological substances | CPT/HCPCS: 99212 ==

== ENCOUNTER 2024-10-01 08:36 | Outpatient (AMB) | payer MEDICAID, SELFPAY ==
--- NOTE | 2024-10-01 08:43 | A.OFFVIS_ITS ---
Vital Signs 10/01/24 08:45 Height 5 ft 8 in Weight 213 lb BMI 32.4 Intake Visit Reasons: PO-Rt CTR 09/17/24 Intake Note: Yuri is a 54 year old right hand dominant male who presents today post- operatively status post right carpal tunnel release performed on 09/17/[address] Bond. Patient complains of right basal joint pain, 4 on the 0-10 pain scale. He shares his hand has been really itchy. Denies numbness, tingling, finger locking. Patient has already run out of pain meds. Sutures were removed and steri strips applied. Allergies Iodinated Contrast Media Allergy (Severe, Verified 10/01/24 08:45) Unknown levofloxacin Allergy (Mild, Verified 10/01/24 08:45) Rash ibuprofen (From MOTRIN) Allergy (Unknown, Verified 10/01/24 08:45) KIDNEY ISSUES mushroom Adverse Reaction (Mild, Verified 10/01/24 08:45) VOMITING amlodipine Adverse Reaction (Unknown, Verified 10/01/24 08:45) Swelling HPI HPI PO-Rt CTR 09/17/24: Details: Yuri is a 54 year old right hand dominant male who presents today post- operatively status post right carpal tunnel release performed on 09/17/[address] Bond. Patient complains of right basal joint pain, 4 on the 0-10 pain scale. The patient reports that there is also some discomfort at the most proximal aspect of the incision site on the volar right wrist, in an area where he has noticed some redness and swelling. He shares his hand has been really itchy. Denies numbness, tingling, finger locking. Patient has already run out of pain meds. Sutures were removed and steri strips applied. 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 Arthritis Surgical History (Updated 10/01/24 @ 08:57 by STEPHANY Luna) History of hand surgery History of rectal sphincterotomy History of hydrocelectomy History of colonoscopy History of left nephrectomy H/O neck surgery Previous back surgery Family History Mother Hypertension Asthma Father Medical history unknown Social History (Updated 07/27/24 @ 09:54 by Joyce Espino PA-C) Household Members: None Housing: Apartment Do you presently have visiting nurse or other home services: No Alcohol intake: current Alcohol intake frequency: holidays/special occasions only Alcohol type: beer Patient Tobacco Use Status: Current everyday Tobacco user Tobacco use type: Cigarette Years Smoked: (onset 18, 1ppd x 36yrs, 30+PYH) e-Cigarette/Vaping Use: Former Use Second Hand Smoke Exposure: No service: No Current occupational status: unemployed 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 Neuro: Normal sensation of the tips of all digits of the right hand at this time Vascular: Cap refill brisk Pain: Mild tenderness to Palpation of the proximal aspect of the incision site on the volar right wrist ROM: Patient is able to make a closed fist and extend all digits of the right hand fully Skin: Well-approximated incision site noted on volar aspect of the right wrist, with some mild edema and erythema noted on this aspect of the incision No lacerations or abrasions. General: No evidence of drainage Psych: Appears grossly normal Affect normal Attitude cooperative Assessment & Plan Assessment & Plan (1) Bilateral carpal tunnel syndrome: Code(s): G56.03 - Carpal tunnel syndrome, bilateral upper limbs Category: Medical Plan 1. Status post right carpal tunnel release DOS 09/17/2024 Patient appears to be recovering well postoperatively Patient is educated about the typical recovery course At this time, patient is sent a one-week course of Augmentin out of an abundance of caution to treat any potential infection that is forming at the most proximal aspect of his incision site Patient is educated that he should continue with a 2 lb weight limit for 2 weeks, and should not submerge the hand or participate in any particularly dirty activities for one-week Patient is advised that he should always take antibiotics food, and then Augmentin is meant to be taken twice a day Patient understands this is amenable to this plan Follow-up in 1 week for wound check, sooner with any acute concerns Medications: New amoxicillin-pot clavulanate 875-125 mg 1 tab PO BID 14 tabs 0RF 7 days Coding Level of Care Code Global (89683) Diagnoses Bilateral carpal tunnel syndrome G56.03
[2024-10-01 08:45] VITALS: BMI 32.4
--- OUTSIDE RECORDS SUMMARY | 2024-10-01 08:56 | XMS_ITS | Clinical Summary ---
Author Organization 175 [facility] Address [address] [place] [address] Phone Care Team Providers Care Tax Manager Public Name Role Phone Lucrecia Pitt MD Primary Care Provider + [phone] Medications ketoconazole (NIZORAL) 2 % cream Apply [...] AM EDT Office Visit Orthopedic Surgery - [place] [address] [phone] Nick Hooper, DPM Acute gout of left [...] AM EDT Office Visit Orthopedic Surgery - [place] [address] [phone] Nick Hooper, DPM [address] [address] Health Maintenance Due Date Last Done Comments [...] Months Insurance [place] - [place] Care Teams Tax Manager Public Relationship Specialty Start Date End Date Lucrecia Pitt MD 230 [facility] 1 [place] [address] PCP - General 09/23/22
--- OUTSIDE RECORDS SUMMARY | 2024-10-01 08:56 | XMS_ITS | Clinical Summary ---
Author Organization [employer] Address [address] [place] [address] Care Team Providers Care Wiring Mechanic Name Role Phone Mirtha Lunsford MD Primary Care Provider [phone]- [phone] Victoira Radford PharmD Unavailable Acosta Sinha BUN ICER Unavailable Unavailable Flip Wan MD Unavailable [phone] Dmitri Sequeira MD Unavailable Stephane Pisano [...] pain 04/16/2024 Overview (04/16/2024): -Patient followed at [facility] with Dr. Agueda Claros DO. [...] and nutrition interventions discussed. -Patient followed at [facility] with Dr. Agueda Claros DO. Seen 10/11/23. [...] I spoke with JULIETA Wood at [facility] pain [facility] and they want the last CT scan faxed at [phone], they will fu with patient this week. Order lumbar MRI ro cord compromise Other specified health status 07/02/2022 Overview (06/18/2024): -next physical exam due after 06/18/25 -eye care facilitated by [facility] -dental home is [facility] -health care proxy filed 12/19/23 Assessment & Plan (06/18/2024 3:03 PM EDT): -next physical exam due after 06/18/25 -eye care facilitated by [facility] -dental home is [facility] -health care proxy filed 12/19/23 Assessment & Plan (12/19/2023 9:30 AM EDT): -next physical exam due after 05/29/2024 -eye care facilitated by [facility] -dental home is [facility] -health care proxy filed 12/19/23 Assessment & Plan (05/30/2023 10:13 AM EDT): -next physical exam due after 02/28/2023 -eye care facilitated by [facility] -dental home is [facility] -health care proxy given on 05/30/2023 Assessment [...] benign adenoma. Biochemical workup showed mass not school attendance secretary including dexamethasone suppression test. Repeat CT [...] benign adenoma. Biochemical workup showed mass not school attendance secretary including dexamethasone suppression test. Repeat CT [...] benign adenoma. Biochemical workup showed mass not school attendance secretary including dexamethasone suppression test. Repeat CT done 2019. Follow up Dr. Aguilar 1 year recommended. -referral placed 05/30/23 Assessment & Plan (01/24/2023 9:53 AM EST): Seen by Dr. Aguilar 05/08/2021 (prior was followed by Dr. Moseley) Hx incidental finding right adrenal nodule found in CT preformed in ER Feb 2018 c/w benign adenoma. Biochemical workup showed mass not school attendance secretary including dexamethasone suppression test. Repeat CT [...] plan. Moderate persistent asthma 02/24/2022 Overview (02/02/2024): -worksite wellness practitioner Dr. Wan seen 02/02/24 -Well controlled on current regimen of Xolair, Combivent, Advair, albuterol MDI. -last prednisone use 12/28/23 for exacerbation, given by pulmonary Assessment & Plan (06/18/2024 3:06 PM EDT): -worksite wellness practitioner Dr. Wan seen 02/02/24 -Well controlled on current regimen of Xolair, Combivent, Advair, albuterol MDI. -last prednisone use 12/28/23 for exacerbation, given by pulmonary Assessment & Plan (02/23/2024 10:09 AM EST): -worksite wellness practitioner Dr. Wan seen 02/02/24 -Well controlled on current regimen of Xolair, Combivent, Advair, albuterol MDI. -last prednisone use 12/28/23 for exacerbation, given by pulmonary Assessment & Plan (05/30/2023 12:31 PM EDT): -worksite wellness practitioner Dr. Wan seen 12/2022 -Well controlled on current regimen of Xolair, Combivent, Advair, albuterol MDI. Continue current Assessment & Plan (01/24/2023 9:53 AM EST): -worksite wellness practitioner Dr. Wan seen 12/2022 -Well controlled on current regimen of Xolair, Combivent, Advair, albuterol MDI. Continue current Assessment & Plan (12/20/2022 8:01 PM EDT): Few wheezing on lung exam,reports feeling well -offered NBZ tx here but refuse states will get at home ,and got pump tx before coming that may cause elevated HR -continue his regular inh and montelukast -continue care w worksite wellness practitioner -planned apt for next month -advised to get booster for COVID 19 at vaccine clinic, pt s/p p20 and flu vaccine already Assessment & Plan (11/01/2022 9:02 AM EDT): -worksite wellness practitioner Dr. Wan -continue Flovent -continue Singulair -continue albuterol prn Assessment & Plan (06/28/2022 10:09 AM EDT): Normal lung exam. advised to call Dr. Savage, his worksite wellness practitioner, for kristan't. continue Flovent, Singulair, may use [...] Essential hypertension 08/19/2020 Overview (06/18/2024): -followed by [facility] -echo 03/31/23 EF 60-65% no changes compared to02/2017 -Blood pressure is slightly above goal, recommended monitoring at home. -Continue lifestyle modifications -Continue current medications -cardiology note from 04/12/23, no changes, follow up 6 months Assessment & Plan (06/18/2024 3:06 PM EDT): -followed by [facility] -echo 03/31/23 EF 60-65% no changes compared to02/2017 -Blood pressure is slightly above goal, recommended monitoring at home. -Continue lifestyle modifications -Continue current medications -cardiology note from 04/12/23, no changes, follow up 6 months Assessment & Plan (11/03/2023 10:12 AM EDT): -followed by [facility] -echo 03/31/23 EF 60-65% no changes compared to02/2017 -Blood pressure is at goal -Continue lifestyle modifications -Continue current medications -cardiology note from 04/12/23, no changes, follow up 6 months Assessment & Plan (05/30/2023 12:31 PM EDT): -followed by [facility] [...] as pharmacomtherapy, [facility] smoking cessation group, and [facility] pharmacy smoking cessation clinic -14mg and [...] as pharmacomtherapy, [facility] smoking cessation group, and [facility] pharmacy smoking cessation clinic -14mg and [...] Encouraged smoking cessation resources such as pharmacomtherapy, [facility] smoking cessation group, and [facility] pharmacy smoking cessation clinic -14mg and [...] diet and exercise,discussed healthy life style -discussed grain elevator superintendent referral -referred today Acute dehydration 09/23/2022 10/27/2022 [...] is for one week only and not terminal system operator. Acute idiopathic gout involv ing toe [...] Type Department Care Team Description 09/27/2024 Telephone [facility] [address] [place] [address] Mirtha Lunsford MD November Recalls 09/27/2024 Travel 09/27/2024 Refill [facility] [address] [place] [address] Mirtha Lunsford MD Chronic bilateral low back pain, unspecified whether sciatica present 09/21/2024 Refill [facility] [address] [place] [address] Mirtha Lunsford MD Moderate persistent asthma without complication 08/31/2024 Refill [facility] [address] [place] [phone] Mirtha Lunsford MD Chronic bilateral low back pain, unspecified whether sciatica present 08/30/2024 Orders Only GENERIC EXTERNAL DATA DEPARTMENT Provider, Generic External Data 08/26/2024 Refill [facility] [address] [place] [phone] Mirtha Lunsford MD Seasonal allergies 08/12/2024 Refill [facility] [address] [place] [phone] Mirtha Lunsford MD Sacroiliac joint dysfunction; Rash 08/02/2024 Refill [facility] [address] [place] [address] Kalli Henderson MD Chronic bilateral low back pain, unspecified whether sciatica present 07/30/2024 Refill [facility] [address] [place] [address] Mirtha Lunsford MD Moderate persistent asthma without complication 07/24/2024 Refill [facility] [address] [place] [phone] Victoria Radford, PharmD Dyslipidemia 07/18/2024 8:00 AM EDT Office Visit [facility] [address] [place] [phone] Rebecca Capps Dental calculus (Primary Dx); Dental plaque 07/15/2024 Orders Only GENERIC EXTERNAL DATA DEPARTMENT Provider, Generic External Data 07/03/2024 Refill [facility] [address] [place] [phone] Mirtha Lunsford MD Chronic bilateral low back [...] Description 12/17/2024 10:45 AM EDT Office Visit [facility] [address] [place], [place] [phone] Mirtha Lunsford MD [address] [place], [place] [phone] 02/11/2025 8:00 AM EST Office Visit [facility] [address] [place] [address] Rebecca Capps Health Maintenance Due Date Last [...] HIGH SENSITIVITY 23.4 <3.5 - 35.0 ng/L [facility] Comment:The Lamb high sens itivity Troponin-I results should beused in conjunction with other diagnostic information suchas ECG, clinical observations and information, and patientsymptoms to aid in the diagnosis of [place]. 08/30/2024 11:4 8 AM EDT 08/30/2024 11:51 AM EDT us Generic External Data Provider LAB BLOOD ORDERAB LES Final Result [facility] [address] [place] [phone] * (ABNORMAL) CBC auto differential (08/30/2024 8:57 AM EDT) Only the most recent of2 resultswithin the time period is included. White Blood Count 12.0(H) 4.8 - 10.8 X10*3/uL [facility] Red Blood Count 5.24 4.60 - 5.80 X10*6/uL [facility] Hemoglobin 16.2 14.0 - 18.0 g/dl [facility] Hematocrit 47.6 42.0 - 52.0 % [facility] Mean Corpuscular Volume 90.8 80.0 - 98.0 fL [facility] Mean Corpuscular Hemoglobin 30.9 27.0 - 33.0 pg [facility] Mean Corpuscular HGB Conc 34.0 31.0 - 36.0 g/dl [facility] Red Cell Distribution Width 13.2 11.0 - 16.0 % [facility] Platelet Count 255 160 - 400 X10*3/uL [facility] Mean Platelet Volume 11.3 9.4 - 12.4 fL [facility] Neutrophils Percent Auto 65.9 45 - 73 % [facility] Imm Gran Pct Auto 4.3(H) 0.0 - 0.4 % [facility] Lymphocytes Percent Auto 15.8(L) 20 - 40 % [facility] Monocytes Percent Auto 8.1 2 - 11 % [facility] Eosinophils Percent Auto 5.1(H) 0 - 4 % [facility] Basophils Percent Auto 0.8 0 - 2 % [facility] NRBC Pct Auto 0.0 0.0 - 0.2 /100WBC [facility] Neutrophils Absolute Auto 7.9 2.0 - 8.3 x10*3/uL [facility] Imm Gran Abs Auto 0.52(H) 0.00 - 0.03 X10*3/uL [facility] Lymphocytes Absolute Auto 1.9 1.2 - 4.9 X10*3/uL [facility] Monocytes Absolute Auto 1.0 0.1 - 1.2 X10*3/uL [facility] Eosinophils Absolute Auto 0.6(H) 0.0 - 0.4 X10*3/uL [facility] Basophils Absolute Auto 0.1 0.0 - 0.2 X10*3/uL [facility] NRBC Abs Auto 0.000 0.0 - 0.012 X10*3/uL [facility] 08/30/2024 8:57 AM EDT 08/30/2024 9:02 AM EDT us Generic External Data Provider LAB BLOOD ORDERAB LES Final Result Performing Organization Address [facility]/ZIP Co de Phone Number [facility] [address] [place] [phone] * (ABNORMAL) Uric acid (08/30/2024 8:57 AM EDT) Uric Acid 9.9(H) 3.4 - 7.0 mg/dL [facility] 08/30/2024 8:57 AM EDT 08/30/2024 9:02 AM EDT Generic External Data Provider LAB BLOOD ORDERAB LES Final Result Performing Organization Address [facility] Co de Phone Number [facility] [address] [place] [phone] * B Type Natriuretic Peptide (BNP) (08/30/2024 8:57 AM EDT) B Type Natriuretic Peptide <10 <100 pg/mL [facility] 08/30/2024 8:57 AM EDT 08/30/2024 9:02 AM EDT us Generic External Data Provider LAB BLOOD ORDERAB LES Final Result Performing Organization Address [facility] Co de Phone Number [facility] [address] [place] [phone] * Magnesium (08/30/2024 8:57 AM EDT) Pathologist [facility] Magnesium 2.3 1.6 - 2.6 mg/dL [facility] 08/30/2024 8:57 AM EDT 08/30/2024 9:02 AM EDT Generic External Data Provider LAB BLOOD ORDERAB LES Final Result Performing Organization Address [facility] Co de Phone Number [facility] [address] [place] [phone] * (ABNORMAL) Hepatic Function Panel (08/30/2024 8:57 AM EDT) [facility] Bilirubin, Total 0.9 0.0 - 1.0 mg/dL [facility] Bilirubin, Direct 0.3 0.0 - 0.5 mg/dL [facility] Aspartate Amino Transferase 30 5 - 37 U/L [facility] Alanine Aminotransferase 41(H) 0 - 40 U/L [facility] Total Protein 7.7 6.5 - 8.0 g/dL [facility] Albumin Level 4.6 3.5 - 5.0 g/dL [facility] Alkaline Phosphatase 124(H) 39 - 117 U/L [facility] 08/30/2024 8:57 AM EDT 08/30/2024 9:02 AM EDT Generic External Data Provider LAB BLOOD ORDERAB LES Final Result Performing Organization Address [facility] Co de Phone Number [facility] [address] [place] [phone] * (ABNORMAL) Basic Metabolic Panel (08/30/2024 8:57 AM EDT) [facility] Sodium 137 135 - 145 mmol/L [facility] Potassium 4.3 3.3 - 5.1 mmol/L [facility] Chloride 105 96 - 108 mmol/L [facility] Carbon Dioxide 23 22 - 29 mmol/L [facility] Anion Gap 13 12 - 20 [facility] Urea Nitrogen (BUN) 20(H) 9 - 16 mg/dL [facility] Creatinine, Serum 1.20 0.5 - 1.4 mg/dL [facility] Creatinine Clr Calc Pharmacy 74.1 [facility] Comment:eGFR (calculated fro m the MDRD study equation) and eCrCl(calculated from the Cockcroft-Gault equation) are based ondifferent parameters and may not yield comparable results.If eCrCl result is absurd, please check patient'sheight/weight. Estimated Glomerular Filt Rate >60 [facility] Comment:Chronic Kidney Disea se: Estimated GFR < 60 mL/min/1.93c2Dscefi Kidney Disease: Estimated GFR < 15 mL/min/1.73m2 Glucose 105 60 - 115 mg/dL [facility] Calcium 9.5 8.4 - 10.2 mg/dL [facility] 08/30/2024 8:57 AM EDT 08/30/2024 9:02 AM EDT us Generic External Data Provider LAB BLOOD ORDERAB LES Final Result [facility] [address] [place] [phone] * XR Chest 2 Views (08/30/2024 8:10 AM EDT) Anatomical Region Laterality Modality Chest Radiographic Ursula ging 08/30/2024 8:10 AM EDT Narrative 08/30/2024 9:17 AM EDT [address] [address] XRay Report Signed Patient: Yuri Stokes MR#: [id number] : 1970 Acct:[id number] Age/Sex: 54 / M ADM Date: 08/30/24 Loc: .ED Attending Dr: Ordering Physician: Jena Corrales DO Date of Service: 08/30/24 Procedure(s): XR chest 2V Accession Number(s): [id number] cc: Mirtha Lunsford MD; Jena Corrales DO [...] in OV> 08/30/24913 DD/ 9 TD/TT: 08/30/24908 Wall Worker: Procedure Note Donotuseinterpreter, Image - 08/30/2024 [place] [address] XRay Report Signed Patient: Yuri Stokes MR#: [id number] : 1970Acct:[id number] Age/Sex: 54 / MADM Date: 08/30/24 Loc: .ED Attending Dr: Ordering Physician: Jena Corrales DO Date of Service: 08/30/24 Procedure(s): XR chest 2V Accession Number(s): [id number] cc: Mirtha Lunsford MD; Jena Corrales DO [...] 08/30/24 0914 DD/ 0810 TD/TT: 08/30/24 0909 Wall Worker: [facility] External Provider IMG XR PROCEDURES Edited Result - Final * XR Chest 1 View (07/15/2024 1:48 AM EDT) Anatomical Region Laterality Modality Chest Radiographic Ursula ging 07/15/2024 1:48 AM EDT Narrative 07/15/2024 1:49 AM EDT [address] [address] XRay Report Signed Patient: Yuri Stokes MR#: [id number] : 1970 Acct:[id number] Age/Sex: 54 / M ADM Date: 07/15/24 Loc: HO.ED Attending Dr: Ordering Physician: Javed Olsen MD Date of Service: 07/15/24 Procedure(s): XR chest 1V Accession Number(s): [id number] cc: Mirtha Lunsford MD; Javed Olsen MD [...] OV> 07/15/24 0149 DD/ 7 TD/TT: 07/15/24147 Wall Worker: Procedure Note Donotuseinterpreter, Image - 07/15/[address] [place] [address] XRay Report Signed Patient: Yuri Stokes MR#: [id number] : 1970Acct:[id number] Age/Sex: 54 / MADM Date: 07/15/24 Loc: HO.ED Attending Dr: Ordering Physician: Javed Olsen MD Date of Service: 07/15/24 Procedure(s): XR chest 1V Accession Number(s): [id number] cc: Mirtha Lunsford MD; Javed Olsen MD [...] OV> 07/15/24 0149 DD/ 7 TD/TT: 07/15/24147 Wall Worker: [facility] External Provider IMG XR PROCEDURES Edited Result - Final * SARS-CoV-2 RNA, Influenza A/B, and RSV RNA, Ql NAAT (07/15/2024 1:22 AM EDT) Influenza A PCR NEGATIVE Negative [facility] Influenza B PCR NEGATIVE Negative [facility] Resp Syncy Virus RNA Qual PCR NEGATIVE Negative [facility] SARS COV2 PCR NEGATIVE Negative [facility] Comment:All test results mus t [...] use by authorized laboratories.Testing performed on the [employer] GeneXpert utilizingreal-time RT-PCR.All SARS CoV2 and positive influenza A/B results arereported to [facility]. 07/15/2024 1:22 AM EDT 07/15/2024 1:28 AM EDT us Generic External Data Provider LAB MICROBIOLOGY - GENERAL ORDERABLES Final Result [facility] [address] [place] [phone] * (ABNORMAL) Comprehensive Metabolic Panel (07/15/2024 1:22 AM EDT) Sodium 141 135 - 145 mmol/L [facility] Potassium 4.1 3.3 - 5.1 mmol/L [facility] Chloride 110(H) 96 - 108 mmol/L [facility] Carbon Dioxide 20(L) 22 - 29 mmol/L [facility] Anion Gap 15 12 - 20 [facility] Urea Nitrogen (BUN) 15 9 - 16 mg/dL [facility] Creatinine, Serum 1.06 0.5 - 1.4 mg/dL [facility] Creatinine Clr Calc Pharmacy 88.4 [facility] Comment:eGFR (calculated fro m the MDRD study equation) and eCrCl(calculated from the Cockcroft-Gault equation) are based ondifferent parameters and may not yield comparable results.If eCrCl result is absurd, please check patient'sheight/weight. Estimated Glomerular Filt Rate >60 [facility] Comment:Chronic Kidney Disea se: Estimated GFR < 60 mL/min/1.05g9Ywkjhk Kidney Disease: Estimated GFR < 15 mL/min/1.73m2 Glucose 93 60 - 115 mg/dL [facility] Calcium 8.8 8.4 - 10.2 mg/dL [facility] Bilirubin, Total 0.3 0.0 - 1.0 mg/dL [facility] Aspartate Amino Transferase 29 5 - 37 U/L [facility] Alanine Aminotransferase 34 0 - 40 U/L [facility] Total Protein 6.8 6.5 - 8.0 g/dL [facility] Albumin Level 4.1 3.5 - 5.0 g/dL [facility] Alkaline Phosphatase 113 39 - 117 U/L [facility] 07/15/2024 1:22 AM EDT 07/15/2024 1:28 AM EDT us Generic External Data Provider LAB BLOOD ORDERAB LES Final Result Performing Organization Address [facility]/ZIP Co de Phone Number [facility] [address] [place] [phone] * Hepatitis C Antibody with Reflex to HCV, RNA, Quantitative, Real-Time PCR (02/28/2024 9:26 AM EST) Hepatitis C Antibody Nonreactive Nonreactive [facility] Comment:Antibodies to HCV no t detected; does not exclude early acuteHCV infection. Blood Venous blood specimen / Unknown 02/28/2024 9:26 AM EST 02/28/2024 11:15 AM EST us Mirtha Lunsford MD LAB BLOOD ORDERABLES Final Result Performing Organization Address City/[facility]/ZIP Co de Phone Number [facility] [address] [place] [phone] * HIV-1/2 Antigen and Antibodies, Fourth Generation, with Reflexes (02/28/2024 9:26 AM EST) HIV AB/AG Nonreactive Nonreactive [facility] Comment:HIV-1 p24 Ag and/or HIV-1/HIV-2 Ab not detected.A test result that is nonreactive does not exclude thepossibility of exposure to or infection with HIV-1 and/orHIV-2. Nonreactive results in this assay for individualswith prior exposure to HIV-1 and/or HIV-2 may be due toantigen and antibody levels that are below the limit ofdetection of this assay.[employer] HIV Ag/Ab Combo assay result andsupplemental assay results should be interpreted inconjunction with the patient's clinical presentation,history and other laboratory results. If the results areinconsistent with clinical evidence, additional testing issuggested to confirm the result. Blood Venous blood specimen / Unknown 02/28/2024 9:26 AM EST 02/28/2024 11:15 AM EST Mirtha Lunsford MD LAB BLOOD ORDERABLES Final Result [facility] [address] [place] [phone] * Lipid Panel, Standard (08/26/2023 9:11 AM EDT) Triglycerides 78 <150 mg/dL [facility] Comment:Desirable Triglyceri de: less than 150 mg/dLBorderline High Triglyceride 150-199 mg/dLHigh Triglyceride: 200-499 mg/dLVery High Triglyceride: greater than or equal to 5OO mg/dL Cholesterol 183 <200 mg/dL [facility] Comment:Desirable Cholestero l: less than 200 mg/dLBorderline High Cholesterol: 200-239 mg/dLHigh Cholesterol: greater than 239 mg/dL LDL Cholesterol Calculated 90 <100 mg/dL [facility] Comment:Desirable LDL: less than 100 mg/dLNear Optimal/Above Optimal LDL: 110- 129 mg/dLBorderline High LDL: 130-159 mg/dLHigh LDL: 160-189 mg/dLVery High LDL: greater than or equal to 190 mg/dL HDL Cholesterol 78 >40 mg/dL [facility] Comment:Desirable HDL: great er than 40 mg/dL Note: This HDL assay may give artificially low results in patients with liver disease. 08/26/2023 9:11 AM EDT 08/26/2023 11:07 AM EDT Mirtha Lunsford MD LAB BLOOD ORDERABLES Final Result [facility] [address] [place] [phone] * (ABNORMAL) Colonoscopy (07/08/2023) Colonoscopy Abnormal( A) Normal Comment:Multiple polyps with Dr. 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 Advance Directives and Living Will 12/19/2023 Health Care Proxy 12/19/23 Care Teams Wiring Mechanic Relationship Specialty Start Date End Date Guthrie, MD Mirtha [address] [place], [place] PCP - General Family Medicine 03/04/15 Victoria Radford PharmD [address] [place] [address] Pharmacist Internal Medicine 08/03/22 Acosta Sinha FNP [address] [place], [place] Nurse Practitioner Family Medicine 01/17/23 Flip Wan MD [address] [place] [address] Pulmonary Disease 02/02/24 Dmitri Sequeira MD [address] [phone] Nephrology 02/10/24 Stephane Pisano MD [address] [facility] [address] [place] [address] General Surgery 02/10/24 Melvin Claros MD [address] [place] [address] Cardiology 04/16/24 Artur Aguilar MD [address] [place] [address] Drive [address] [place] [address] Endocrinology 05/31/24 Ghassan Fletcher Apparel Manufacture InstructorMortgage Banker 02/07/24June,Joyce Hoover PA-C Lung Cancer Screening Program Radiology 07/31/24
--- OUTSIDE RECORDS SUMMARY | 2024-10-01 08:56 | XMS_ITS | Encounter Summary ---
Author Organization [facility] Address [address] [facility] [address] [place] [address] Phone Care Team Providers Care Boring Machine Operator Double End Name Role Phone Tavia Mosquera Primary Care Provider [phone] Reason for Referral * Imaging (Routine) - Closed Specialty Diagnoses / Procedures Referred By Contac t Referred To Contact Diagnoses Right kidney absent Procedures Ultrasound renal limited Dmitri Sequeira MD Phone: tel: fax: Referral ID Status Reason Start Date Expiration Date Visits Re quested Visits Authorized [id number] Closed 09/22/2023 09/21/2024 1 1 Encounter Details Date Type Department Care Team (Latest Contact Info) Description 09/22/2023 Office Communication [facility] [address] [facility] [address] [place] [address] Dmitri Sequeira MD [id number] [facility] [address] [place] [phone] Right kidney absent (Primary Dx) Social History [...] saw him--put on schedule 09/22/23 so I medical biller coder write a note * Telephone Encounter - [...] Primary documented in this encounter Care Teams Boring Machine Operator Double End Relationship Specialty Start Date End Date [facility] [address] [place] [id number] PCP - General 04/29/22 documented as of this encounter
--- OUTSIDE RECORDS SUMMARY | 2024-10-01 08:57 | XMS_ITS | Patient Health Record ---
Author Organization [facility] Address [address] [place] [address] Care Team Providers Care Endless Bed Drum Sander Name Role Phone Aleksandr Spangler Jr [phone] Reason For Referral No Information Plan Of Treatment No Information
== END 2024-10-01 09:09 | disposition home or self-care (01) ==
LOC: HO.HOS 08:37
PROVIDERS: PCP Family Medicine
DX: G56.03 Carpal tunnel syndrome, bilateral upper limbs (principal)
CPT/HCPCS: 99024

== ENCOUNTER → 2024-10-01 08:36 | Outpatient (BNVA) | payer MEDICAID, SELFPAY | PROVIDERS: PCP Family Medicine | DX: G56.03 Carpal tunnel syndrome, bilateral upper limbs (principal); Z98.890 Other specified postprocedural states | CPT/HCPCS: 99212 ==

== ENCOUNTER 2024-10-08 08:46 | Outpatient (AMB) | payer MEDICAID, SELFPAY ==
--- NOTE | 2024-10-08 08:49 | A.OFFVIS_ITS ---
Vital Signs 10/08/24 08:55 Height 5 ft 8 in Weight 213 lb BMI 32.4 Intake Visit Reasons: PO- wound check/ Rt CTR 09/17/24 Intake Note: Yuri is a 54 year old right hand dominant male who presents today post- operatively for a wound check status post right carpal tunnel release performed on 09/17/[address] Bond. At his last post-operative visit, he was advised to continue with a 2 lb weight limit for 2 more weeks, and to not submerge the hand or participate in any particularly dirty activities for one-week. He was also started on Augmentin. Patient reports today he only took about 3 days of antibiotics. He continues to have a lot of itchy, sometimes using his teeth to scratch around the incision. He has been massaging around the incision. Allergies Iodinated Contrast Media Allergy (Severe, Verified 10/08/24 08:55) Unknown levofloxacin Allergy (Mild, Verified 10/08/24 08:55) Rash ibuprofen (From MOTRIN) Allergy (Unknown, Verified 10/08/24 08:55) KIDNEY ISSUES mushroom Adverse Reaction (Mild, Verified 10/08/24 08:55) VOMITING amlodipine Adverse Reaction (Unknown, Verified 10/08/24 08:55) Swelling HPI HPI PO- wound check/ Rt CTR 09/17/24: Details: Yuri is a 54 year old right hand dominant male who presents today post- operatively for a wound check status post right carpal tunnel release performed on 09/17/[address] Bond. At his last post-operative visit, he was advised to continue with a 2 lb weight limit for 2 more weeks, and to not submerge the hand or participate in any particularly dirty activities for one-week. He was also started on Augmentin. Patient reports today he only took about 3 days of an tibiotics. The patient reports that he then threw out the antibiotics that were prescribed, stating ?they were too hard to swallow?. He continues to have a lot of itchy, sometimes using his teeth to scratch around the incision. He has been massaging around the incision. 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 Arthritis Surgical History (Updated 10/01/24 @ 08:57 by STEPHANY Luna) History of hand surgery History of rectal sphincterotomy History of hydrocelectomy History of colonoscopy History of left nephrectomy H/O neck surgery Previous back surgery Family History Mother Hypertension Asthma Father Medical history unknown Social History (Updated 07/27/24 @ 09:54 by Joyce Espino PA-C) Household Members: None Housing: Apartment Do you presently have visiting nurse or other home services: No Alcohol intake: current Alcohol intake frequency: holidays/special occasions only Alcohol type: beer Patient Tobacco Use Status: Current everyday Tobacco user Tobacco use type: Cigarette Years Smoked: (onset 18, 1ppd x 36yrs, 30+PYH) e-Cigarette/Vaping Use: Former Use Second Hand Smoke Exposure: No service: No Current occupational status: unemployed 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 Neuro: Normal sensation of the tips of all digits of the right hand at this time Vascular: Cap refill brisk Pain: No further tenderness to palpation of the proximal aspect of the incision site on the volar right wrist ROM: Patient is able to make a closed fist and extend all digits of the right hand fully Skin: Well-approximated incision site noted on volar aspect of the right wrist, with some mild edema noted at the most proximal aspect of the incision No further erythema No lacerations or abrasions. General: No evidence of drainage Psych: Appears grossly normal Affect normal Attitude cooperative Assessment & Plan Assessment & Plan (1) Bilateral carpal tunnel syndrome: Code(s): G56.03 - Carpal tunnel syndrome, bilateral upper limbs Category: Medical Plan 1. Status post right carpal tunnel release DOS 09/17/2024 Patient appears to be recovering well postoperatively Patient is educated about the typical recovery course No further ongoing evidence of infection Patient is educated that in the future, whenever prescribed antibiotics, he should always finish the full course Patient is educated that he should continue with a 2 lb weight limit for 1 week Patient understands this is amenable to this plan 2. Left carpal tunnel syndrome Symptoms intermittent, daily, worse at night Patient states that he is scheduled for a colonoscopy later this month, but after this he would like to explore surgical intervention for his left carpal tunnel syndrome Patient should call our office after he has completed his colonoscopy for an appointment to discuss a left carpal tunnel release Patient understands this and is amenable to this plan Coding Level of Care Code Global (92975) Diagnoses Bilateral carpal tunnel syndrome G56.03
[2024-10-08 08:55] VITALS: BMI 32.4
--- OUTSIDE RECORDS SUMMARY | 2024-10-08 09:11 | XMS_ITS | Clinical Summary ---
Author Organization [facility] Address [address] [place] [address] Phone Care Team Providers Care Rn Labor Delivery Name Role Phone Lucrecia Pitt MD Primary Care Provider [phone] Medications ketoconazole (NIZORAL) 2 % cream Apply [...] AM EDT Office Visit Orthopedic Surgery - [place] [address] [phone] Nick Hooper, DPM Acute gout of left [...] AM EDT Office Visit Orthopedic Surgery - [place] [id number] [phone] Nick Hooper, DPM [address] [id number] Health Maintenance Due Date Last Done Comments [...] Months Insurance MEDICAID - [place] Care Teams Rn Labor Delivery Relationship Specialty Start Date End Date Lucrecia Pitt MD [address] [facility] [address] [place] [address] PCP - General 09/23/22
--- OUTSIDE RECORDS SUMMARY | 2024-10-08 09:11 | XMS_ITS | Patient Health Record ---
Author Organization [facility] Address [address] [place] [address] Care Team Providers Care Actuarial Manager Name Role Phone Aleksandr Spangler Jr [phone] Reason For Referral No Information Plan Of Treatment No Information
--- OUTSIDE RECORDS SUMMARY | 2024-10-08 09:11 | XMS_ITS | Clinical Summary ---
Author Organization [employer] Address [address] [place] [address] Care Team Providers Care Family Services Manager Name Role Phone Mirtha Lunsford MD Primary Care Provider [phone]- [phone] Victoria Radford PharmD Unavailable Acosta Sinha [employer]EST [employer] ECOLOGY PROFESSOR Unavailable Unavailable Flip Wan MD Unavailable [phone] Dmitri Sequeira MD Unavailable Stephane Pisano MD Unavailable [phone] Melvin Claros MD Unavailable Artur Aguilar MD Unavailable Suzette Bond MD Unavailable Allergies Active Allergy Reactions Criticality [...] EDT): - Podiatry referral was placed 06/18/24. Hx of chest pain 04/16/2024 Overview (04/16/2024): -Patient followed at [facility] with Dr. Agueda Claros [...] air out. -recommended OTC athletes foot cream Class 1 obesity due to exces s [...] and nutrition interventions discussed. -Patient followed at [facility] with Dr. Agueda Claros DO. [...] want the last CT scan faxed at [phone], they will fu with patient this week. Order lumbar MRI ro cord compromise Other specified health status 07/02/2022 Overview (06/18/2024): -next physical exam due after 06/18/25 -eye care facilitated by [facility] -dental home is [facility] -health care proxy filed 12/19/23 Assessment & Plan (06/18/2024 3:03 PM EDT): -next physical exam due after 06/18/25 -eye care facilitated by [facility] -dental home is [facility] -health care proxy filed 12/19/23 Assessment & Plan (12/19/2023 9:30 AM EDT): -next physical exam due after 05/29/2024 -eye care facilitated by [facility] -dental home is [facility] -health care proxy filed 12/19/23 Assessment & Plan (05/30/2023 10:13 AM EDT): -next physical exam due after 02/28/2023 -eye care facilitated by [facility] -dental home is [facility] -health care proxy given on 05/30/2023 [...] adenoma. Biochemical workup showed mass not secretary receptionist including dexamethasone suppression test. Repeat [...] adenoma. Biochemical workup showed mass not secretary receptionist including dexamethasone suppression test. Repeat [...] adenoma. Biochemical workup showed mass not secretary receptionist including dexamethasone suppression test. Repeat CT done 2019. Follow up Dr. Aguilar 1 year recommended. -referral placed 05/30/23 Assessment & Plan (01/24/2023 9:53 AM EST): Seen by Dr. Aguilar 05/08/2021 (prior was followed by Dr. Moseley) Hx incidental finding right adrenal nodule found in CT preformed in ER Feb 2018 c/w benign adenoma. Biochemical workup showed mass not secretary receptionist including dexamethasone suppression test. Repeat [...] plan. Moderate persistent asthma 02/24/2022 Overview (02/02/2024): -spray dyer Dr. Wan seen 02/02/24 -Well controlled on current regimen of Xolair, Combivent, Advair, albuterol MDI. -last prednisone use 12/28/23 for exacerbation, given by pulmonary Assessment & Plan (06/18/2024 3:06 PM EDT): -spray dyer Dr. Wan seen 02/02/24 -Well controlled on current regimen of Xolair, Combivent, Advair, albuterol MDI. -last prednisone use 12/28/23 for exacerbation, given by pulmonary Assessment & Plan (02/23/2024 10:09 AM EST): -spray dyer Dr. Wan seen 02/02/24 -Well controlled on current regimen of Xolair, Combivent, Advair, albuterol MDI. -last prednisone use 12/28/23 for exacerbation, given by pulmonary Assessment & Plan (05/30/2023 12:31 PM EDT): -spray dyer Dr. Wan seen 12/2022 -Well controlled on current regimen of Xolair, Combivent, Advair, albuterol MDI. Continue current Assessment & Plan (01/24/2023 9:53 AM EST): -spray dyer Dr. Wan seen 12/2022 -Well controlled on current regimen of Xolair, Combivent, Advair, albuterol MDI. Continue current Assessment & Plan (12/20/2022 8:01 PM EDT): Few wheezing on lung exam,reports feeling well -offered NBZ tx here but refuse states will get at home ,and got pump tx before coming that may cause elevated HR -continue his regular inh and montelukast -continue care w spray dyer -planned apt for next month -advised to get booster for COVID 19 at vaccine clinic, pt s/p p20 and flu vaccine already Assessment & Plan (11/01/2022 9:02 AM EDT): -spray dyer Dr. Wan -continue Flovent -continue Singulair -continue albuterol prn Assessment & Plan (06/28/2022 10:09 AM EDT): Normal lung exam. advised to call Dr. Wan, his spray dyer, for kristan't. continue Flovent, Singulair, may use [...] Essential hypertension 08/19/2020 Overview (06/18/2024): -followed by [facility] -echo 03/31/23 EF 60-65% no changes compared to02/2017 -Blood pressure is slightly above goal, recommended monitoring at home. -Continue lifestyle modifications -Continue current medications -cardiology note from 04/12/23, no changes, follow up 6 months Assessment & Plan (06/18/2024 3:06 PM EDT): -followed by [facility] -echo 03/31/23 EF 60-65% no changes compared to02/2017 -Blood pressure is slightly above goal, recommended monitoring at home. -Continue lifestyle modifications -Continue current medications -cardiology note from 04/12/23, no changes, follow up 6 months Assessment & Plan (11/03/2023 10:12 AM EDT): -followed by [facility] -echo 03/31/23 EF 60-65% no changes compared to02/2017 -Blood pressure is at goal -Continue lifestyle modifications -Continue current medications -cardiology note from 04/12/23, no changes, follow up 6 months Assessment & Plan (05/30/2023 12:31 PM EDT): -followed by [facility] -echo 03/31/23 EF 60-65% no changes [...] Encouraged smoking cessation resources such as pharmacomtherapy, [facility] smoking cessation group, and [facility] pharmacy smoking cessation clinic -14mg and 7mg [...] as pharmacomtherapy, [facility] smoking cessation group, and [facility] pharmacy smoking cessation clinic -14mg and 7mg [...] as pharmacomtherapy, [facility] smoking cessation group, and [facility] pharmacy smoking cessation clinic -14mg and 7mg [...] Problem Noted Date Diagnosed Date Resolved Date Leg muscle spasm 06/18/2024 10/03/2024 Overview (06/18/2024): Left leg spasm, likely from underlying back issues. No evidence of nerve compression. - Recommended to continue with orthopedics Assessment & Plan (06/18/2024 2:59 PM EDT): Left leg spasm, likely from underlying back issues. No evidence of nerve compression. - Recommended to continue with orthopedics Dietary counseling 08/29/2023 Assessment & Plan (06/18/2024 [...] saturated fat, and sodium. Exercise counseling 08/29/2023 10/04/19 Assessment & Plan (06/18/2024 2:50 PM EDT): Exercise Recommendations: At least 150 minutes of moderate-intensity physical activity per week, or an equivalent combination of moderate- and vigorous-intensity activity. 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 Acute idiopathic gout involv ing toe of [...] Type Department Care Team Description 09/27/2024 Telephone [facility] [address] [place] [phone] Mirtha Lunsford MD November Recalls 09/27/2024 Travel 09/27/2024 Refill [facility] [address] [place] [address] Mirtha Lunsford MD Chronic bilateral low back pain, unspecified whether sciatica present 09/21/2024 Refill [facility] [address] [place] [address] Mirtha Lunsford MD Moderate persistent asthma without complication 08/31/2024 Refill [facility] [address] [place] [phone] Mirtha Lunsford MD Chronic bilateral low back pain, unspecified whether sciatica present 08/30/2024 Orders Only GENERIC EXTERNAL DATA DEPARTMENT Provider, Generic External Data 08/26/2024 Refill [facility] [address] [place] [phone] Mirtha Lunsford MD Seasonal allergies 08/12/2024 Refill [facility] [address] [place] [phone] Mirtha Lunsford MD Sacroiliac joint dysfunction; Rash 08/02/2024 Refill [facility] [address] [place] [phone] Kalli Henderson MD Chronic bilateral low back pain, unspecified whether sciatica present 07/30/2024 Refill [facility] [address] [place] [phone] Mirtha Lunsford MD Moderate persistent asthma without complication 07/24/2024 Refill [facility] [address] [place] [phone] Victoria Radford, PharmD Dyslipidemia 07/18/2024 8:00 AM EDT Office Visit [facility] [address] [place] [phone] Rebecca Capps Dental calculus (Primary Dx); Dental plaque 07/15/2024 Orders Only GENERIC EXTERNAL DATA DEPARTMENT Provider, Generic External Data from Last 3 Months Immunizations Immunization Administration [...] Description 12/17/2024 10:45 AM EDT Office Visit [facility] [address] [place] [address] Mirtha Lunsford MD [address] [place] [address] 02/11/2025 8:00 AM EST Office Visit [facility] [address] [place] [address] Rebecca Capps Health Maintenance Due Date Last [...] HIGH SENSITIVITY 23.4 <3.5 - 35.0 ng/L [facility] Comment:The Lamb high sens itivity Troponin-I results should beused in conjunction with other diagnostic information suchas ECG, clinical observations and information, and patientsymptoms to aid in the diagnosis of SD. 08/30/2024 11:4 8 AM EDT 08/30/2024 11:51 AM EDT us Generic External Data Provider LAB BLOOD ORDERAB LES Final Result [facility] [address] [place] [phone] * (ABNORMAL) CBC auto differential (08/30/2024 8:57 AM EDT) Only the most recent of2 resultswithin the time period is included. White Blood Count 12.0(H) 4.8 - 10.8 X10*3/uL [facility] Red Blood Count 5.24 4.60 - 5.80 X10*6/uL [facility] Hemoglobin 16.2 14.0 - 18.0 g/dl [facility] Hematocrit 47.6 42.0 - 52.0 % [facility] Mean Corpuscular Volume 90.8 80.0 - 98.0 fL [facility] Mean Corpuscular Hemoglobin 30.9 27.0 - 33.0 pg [facility] Mean Corpuscular HGB Conc 34.0 31.0 - 36.0 g/dl [facility] Red Cell Distribution Width 13.2 11.0 - 16.0 % [facility] Platelet Count 255 160 - 400 X10*3/uL [facility] Mean Platelet Volume 11.3 9.4 - 12.4 fL [facility] Neutrophils Percent Auto 65.9 45 - 73 % [facility] Imm Gran Pct Auto 4.3(H) 0.0 - 0.4 % [facility] Lymphocytes Percent Auto 15.8(L) 20 - 40 % [facility] Monocytes Percent Auto 8.1 2 - 11 % [facility] Eosinophils Percent Auto 5.1(H) 0 - 4 % [facility] Basophils Percent Auto 0.8 0 - 2 % [facility] NRBC Pct Auto 0.0 0.0 - 0.2 /100WBC [facility] Neutrophils Absolute Auto 7.9 2.0 - 8.3 x10*3/uL [facility] Imm Gran Abs Auto 0.52(H) 0.00 - 0.03 X10*3/uL [facility] Lymphocytes Absolute Auto 1.9 1.2 - 4.9 X10*3/uL [facility] Monocytes Absolute Auto 1.0 0.1 - 1.2 X10*3/uL [facility] Eosinophils Absolute Auto 0.6(H) 0.0 - 0.4 X10*3/uL [facility] Basophils Absolute Auto 0.1 0.0 - 0.2 X10*3/uL [facility] NRBC Abs Auto 0.000 0.0 - 0.012 X10*3/uL [facility] 08/30/2024 8:57 AM EDT 08/30/2024 9:02 AM EDT us Generic External Data Provider LAB BLOOD ORDERAB LES Final Result Performing Organization Address [facility]/ZIP Co de Phone Number [facility] [address] [place] [phone] * (ABNORMAL) Uric acid (08/30/2024 8:57 AM EDT) [facility] Uric Acid 9.9(H) 3.4 - 7.0 mg/dL [facility] 08/30/2024 8:57 AM EDT 08/30/2024 9:02 AM EDT us Generic External Data Provider LAB BLOOD ORDERAB LES Final Result Performing Organization Address [facility] Co de Phone Number [facility] [address] [place] [phone] * B Type Natriuretic Peptide (BNP) (08/30/2024 8:57 AM EDT) [facility] B Type Natriuretic Peptide <10 <100 pg/mL [facility] 08/30/2024 8:57 AM EDT 08/30/2024 9:02 AM EDT Generic External Data Provider LAB BLOOD ORDERAB LES Final Result Performing Organization Address [facility] Co de Phone Number [facility] [address] [place] [phone] * Magnesium (08/30/2024 8:57 AM EDT) [facility] Magnesium 2.3 1.6 - 2.6 mg/dL [facility] 08/30/2024 8:57 AM EDT 08/30/2024 9:02 AM EDT Generic External Data Provider LAB BLOOD ORDERAB LES Final Result Performing Organization Address [facility] de Phone Number [facility] [address] [place] [address] [phone] * (ABNORMAL) Hepatic Function Panel (08/30/2024 8:57 AM EDT) [facility] Bilirubin, Total 0.9 0.0 - 1.0 mg/dL [facility] Bilirubin, Direct 0.3 0.0 - 0.5 mg/dL [facility] Aspartate Amino Transferase 30 5 - 37 U/L [facility] Alanine Aminotransferase 41(H) 0 - 40 U/L [facility] Total Protein 7.7 6.5 - 8.0 g/dL [facility] Albumin Level 4.6 3.5 - 5.0 g/dL [facility] Alkaline Phosphatase 124(H) 39 - 117 U/L [facility] 08/30/2024 8:57 AM EDT 08/30/2024 9:02 AM EDT us Generic External Data Provider LAB BLOOD ORDERAB LES Final Result Performing Organization Address [facility] de Phone Number [facility] [address] [place] [address] [phone] * (ABNORMAL) Basic Metabolic Panel (08/30/2024 8:57 AM EDT) [facility] Sodium 137 135 - 145 mmol/L [facility] Potassium 4.3 3.3 - 5.1 mmol/L [facility] Chloride 105 96 - 108 mmol/L [facility] Carbon Dioxide 23 22 - 29 mmol/L [facility] Anion Gap 13 12 - 20 [facility] Urea Nitrogen (BUN) 20(H) 9 - 16 mg/dL [facility] Creatinine, Serum 1.20 0.5 - 1.4 mg/dL [facility] Creatinine Clr Calc Pharmacy 74.1 [facility] Comment:eGFR (calculated fro m the MDRD study equation) and eCrCl(calculated from the Cockcroft-Gault equation) are based ondifferent parameters and may not yield comparable results.If eCrCl result is absurd, please check patient'sheight/weight. Estimated Glomerular Filt Rate >60 [facility] Comment:Chronic Kidney Disea se: Estimated GFR < 60 mL/min/1.81o7Gthabu Kidney Disease: Estimated GFR < 15 mL/min/1.73m2 Glucose 105 60 - 115 mg/dL [facility] Calcium 9.5 8.4 - 10.2 mg/dL [facility] 08/30/2024 8:57 AM EDT 08/30/2024 9:02 AM EDT us Generic External Data Provider LAB BLOOD ORDERAB LES Final Result Performing Organization Address City/State/[facility] Co de Phone Number [facility] [address] [place] [phone] * XR Chest 2 Views (08/30/2024 8:10 AM EDT) Anatomical Region Laterality Modality Chest Radiographic Ursula ging 08/30/2024 8:10 AM EDT Narrative 08/30/2024 9:17 AM EDT [address] [address] XRay Report Signed Patient: Yuri Stokes MR#: [id number] : 1970 Acct:[id number] Age/Sex: 54 / M ADM Date: 08/30/24 Loc: .ED Attending Dr: Ordering Physician: Jena Corrales DO Date of Service: 08/30/24 Procedure(s): XR chest 2V Accession Number(s): [id number] cc: Mirtha Lunsford MD; [place],Jena DO EXAMINATION: XR CHEST 2 VIEWS HISTORY: [...] in OV> 08/30/24913 DD/ 9 TD/TT: 08/30/24908 Perfect Binder Feeder Offbearer: Procedure Note Donotuseinterpreter, Image - 08/30/2024 [place] [address] XRay Report Signed Patient: Yuri Stokes MR#: [id number] : 1970Acct:[id number] Age/Sex: 54 / MADM Date: 08/30/24 Loc: .ED Attending Dr: Ordering Physician: Jena Corrales DO Date of Service: 08/30/24 Procedure(s): XR chest 2V Accession Number(s): [id number] cc: Mirtha Lunsford MD; Jena Corrales DO [...] Walker MD in OV> 08/30/24 0914 DD/ 9 TD/TT: 08/30/24908 Perfect Binder Feeder Offbearer: us [facility] External Provider IMG XR PROCEDURES Edited Result - Final * XR Chest 1 View (07/15/2024 1:48 AM EDT) Anatomical Region Laterality Modality Chest Radiographic Ursula ging 07/15/2024 1:48 AM EDT Narrative 07/15/2024 1:49 AM EDT [address] [address] XRay Report Signed Patient: Yuri Stokes MR#: [id number] : 1970 Acct:[id number] Age/Sex: 54 / M ADM Date: 07/15/24 Loc: HO.ED Attending Dr: Ordering Physician: Javed Olsen MD Date of Service: 07/15/24 Procedure(s): XR chest 1V Accession Number(s): [id number] cc: Mirtha Lunsford MD; Javed Olsen MD [...] OV> 07/15/24 0149 DD/ 7 TD/TT: 07/15/24147 Perfect Binder Feeder Offbearer: Procedure Note Donotuseinterpreter, Image - 07/15/[address] [address] XRay Report Signed Patient: Yuri Stokes MR#: [id number] : 1970Acct:[id number] Age/Sex: 54 / MADM Date: 07/15/24 Loc: HO.ED Attending Dr: Ordering Physician: Javed Olsen MD Date of Service: 07/15/24 Procedure(s): XR chest 1V Accession Number(s): [id number] cc: Mirtha Lunsford MD; Javed Olsen MD [...] OV> 07/15/24 0149 DD/ 7 TD/TT: 07/15/24147 Perfect Binder Feeder Offbearer: [facility] External Provider IMG XR PROCEDURES Edited Result - Final * SARS-CoV-2 RNA, Influenza A/B, and RSV RNA, Ql NAAT (07/15/2024 1:22 AM EDT) Influenza A PCR NEGATIVE Negative [facility] Influenza B PCR NEGATIVE Negative [facility] Resp Syncy Virus RNA Qual PCR NEGATIVE Negative [facility] SARS COV2 PCR NEGATIVE Negative [facility] Comment:All test results mus t be [...] use by authorized laboratories.Testing performed on the [employer] GeneXpert utilizingreal-time RT-PCR.All SARS CoV2 and positive influenza A/B results arereported to [facility]. 07/15/2024 1:22 AM EDT 07/15/2024 1:28 AM EDT us Generic External Data Provider LAB MICROBIOLOGY - GENERAL ORDERABLES Final Result [facility] [address] [place] [phone] * (ABNORMAL) Comprehensive Metabolic Panel (07/15/2024 1:22 AM EDT) Sodium 141 135 - 145 mmol/L [facility] Potassium 4.1 3.3 - 5.1 mmol/L [facility] Chloride 110(H) 96 - 108 mmol/L [facility] Carbon Dioxide 20(L) 22 - 29 mmol/L [facility] Anion Gap 15 12 - 20 [facility] Urea Nitrogen (BUN) 15 9 - 16 mg/dL [facility] Creatinine, Serum 1.06 0.5 - 1.4 mg/dL [facility] Creatinine Clr Calc Pharmacy 88.4 [facility] Comment:eGFR (calculated fro m the MDRD study equation) and eCrCl(calculated from the Cockcroft-Gault equation) are based ondifferent parameters and may not yield comparable results.If eCrCl result is absurd, please check patient'sheight/weight. Estimated Glomerular Filt Rate >60 [facility] Comment:Chronic Kidney Disea se: Estimated GFR < 60 mL/min/1.79o2Etgach Kidney Disease: Estimated GFR < 15 mL/min/1.73m2 Glucose 93 60 - 115 mg/dL [facility] Calcium 8.8 8.4 - 10.2 mg/dL [facility] Bilirubin, Total 0.3 0.0 - 1.0 mg/dL [facility] Aspartate Amino Transferase 29 5 - 37 U/L [facility] Alanine Aminotransferase 34 0 - 40 U/L [facility] Total Protein 6.8 6.5 - 8.0 g/dL [facility] Albumin Level 4.1 3.5 - 5.0 g/dL [facility] Alkaline Phosphatase 113 39 - 117 U/L [facility] 07/15/2024 1:22 AM EDT 07/15/2024 1:28 AM EDT Generic External Data Provider LAB BLOOD ORDERAB LES Final Result Performing Organization Address [facility]/ZIP Co de Phone Number [facility] [address] [place] [phone] * Hepatitis C Antibody with Reflex to HCV, RNA, Quantitative, Real-Time PCR (02/28/2024 9:26 AM EST) Hepatitis C Antibody Nonreactive Nonreactive [facility] Comment:Antibodies to HCV no t detected; does not exclude early acuteHCV infection. Blood Venous blood specimen / Unknown 02/28/2024 9:26 AM EST 02/28/2024 11:15 AM EST Mirtha Lunsford MD LAB BLOOD ORDERABLES Final Result Performing Organization Address [facility] Co de Phone Number [facility] [address] [place] [phone] * HIV-1/2 Antigen and Antibodies, Fourth Generation, with Reflexes (02/28/2024 9:26 AM EST) HIV AB/AG Nonreactive Nonreactive [facility] Comment:HIV-1 p24 Ag and/or HIV-1/HIV-2 Ab not detected.A test result that is nonreactive does not exclude thepossibility of exposure to or infection with HIV-1 and/orHIV-2. Nonreactive results in this assay for individualswith prior exposure to HIV-1 and/or HIV-2 may be due toantigen and antibody levels that are below the limit ofdetection of this assay.The [employer] HIV Ag/Ab Combo assay result andsupplemental assay results should be interpreted inconjunction with the patient's clinical presentation,history and other laboratory results. If the results areinconsistent with clinical evidence, additional testing issuggested to confirm the result. Blood Venous blood specimen / Unknown 02/28/2024 9:26 AM EST 02/28/2024 11:15 AM EST Mirtha Lunsford MD LAB BLOOD ORDERABLES Final Result Performing Organization Address City/[facility] Co de Phone Number [facility] [address] [place] [address] [phone] * Lipid Panel, Standard (08/26/2023 9:11 AM EDT) Triglycerides 78 <150 mg/dL [facility] Comment:Desirable Triglyceri de: less than 150 mg/dLBorderline High Triglyceride 150-199 mg/dLHigh Triglyceride: 200-499 mg/dLVery High Triglyceride: greater than or equal to 5OO mg/dL Cholesterol 183 <200 mg/dL [facility] Comment:Desirable Cholestero l: less than 200 mg/dLBorderline High Cholesterol: 200-239 mg/dLHigh Cholesterol: greater than 239 mg/dL LDL Cholesterol Calculated 90 <100 mg/dL [facility] Comment:Desirable LDL: less than 100 mg/dLNear Optimal/Above Optimal LDL: 110- 129 mg/dLBorderline High LDL: 130-159 mg/dLHigh LDL: 160-189 mg/dLVery High LDL: greater than or equal to 190 mg/dL HDL Cholesterol 78 >40 mg/dL [facility] Comment:Desirable HDL: great er than 40 mg/dL Note: This HDL assay may give artificially low results in patients with liver disease. 08/26/2023 9:11 AM EDT 08/26/2023 11:07 AM EDT Mirtha Lunsford MD LAB BLOOD ORDERABLES Final Result Performing Organization Address City/[facility]/ZIP Co de Phone Number [facility] [address] [place] [address] [phone] * (ABNORMAL) Colonoscopy (07/08/2023) Colonoscopy Abnormal( A) Normal Comment:Multiple polyps with Dr. 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 Advance Directives and Living Will 12/19/2023 Health Care Proxy 12/19/23 Care Teams Family Services Manager Relationship Specialty Start Date End Date Curry, MD Mirtha [address] [place] [address] PCP - General Family Medicine 03/04/15 Victoria Radford PharmD [address] [place] [phone] Pharmacist Internal Medicine 08/03/22 Acosta Sinha FNP [address] [place] [address] Nurse Practitioner Family Medicine 01/17/23 Flip Wan MD [address] [place] [address] Pulmonary Disease 02/02/24 Dmitri Sequeira MD [address] [facility] 200 [place] [address] Nephrology 02/10/24 Stephane Pisano MD [address] [facility] 3rd [place] [address] General Surgery 02/10/24 Melvin Claros MD [address] [place] [address] Cardiology 04/16/24 Artur Aguilar MD [address] [place] [address] Endocrinology 05/31/24 Suzette Bond MD [address] [place] [address] Orthopaedic Surgery 10/03/24 Ghassan Fletcher Draw Frame RunnerVending Machine Filler 02/07/24June,Joyce Hoover PA-C Lung Cancer Screening Program Radiology 07/31/24
--- OUTSIDE RECORDS SUMMARY | 2024-10-08 09:11 | XMS_ITS | Encounter Summary ---
Author Organization [facility] Address [address] [facility] 200 [place] [address] Phone Care Team Providers Care Netezza Developer Name Role Phone Tavia Mosquera Primary Care Provider [phone] Reason for Referral * Imaging (Routine) - Closed Specialty Diagnoses / Procedures Referred By Contac t Referred To Contact Diagnoses Right kidney absent Procedures Ultrasound renal limited Dmitri Sequeira MD Phone: tel: fax: Referral ID Status Reason Start Date Expiration Date Visits Re quested Visits Authorized [id number] Closed 09/22/2023 09/21/2024 1 1 Encounter Details Date Type Department Care Team (Latest Contact Info) Description 09/22/2023 Office Communication [facility] 100 [facility] [address] [place] [address] Dmitri Sequeira MD [address] [facility] [address] [place] [phone] Right kidney absent (Primary Dx) Social History [...] saw him--put on schedule 09/22/23 so I glove pairer write a note * Telephone Encounter - [...] Primary documented in this encounter Care Teams Netezza Developer Relationship Specialty Start Date End Date [facility] [address] [place] [phone] PCP - General 04/29/22 documented as of this encounter
== END 2024-10-08 09:00 | disposition home or self-care (01) ==
LOC: HO.HOS 08:47
PROVIDERS: PCP Family Medicine
DX: G56.03 Carpal tunnel syndrome, bilateral upper limbs (principal)
CPT/HCPCS: 99024

== ENCOUNTER → 2024-10-08 08:46 | Outpatient (BNVA) | payer MEDICAID, SELFPAY | PROVIDERS: PCP Family Medicine | DX: G56.03 Carpal tunnel syndrome, bilateral upper limbs (principal) | CPT/HCPCS: 99212 ==

== ENCOUNTER 2024-10-11 13:26 | Outpatient (REF) | payer MEDICAID, SELFPAY ==
--- NOTE | ~2024-10-11 | XR_ITS ---
EXAM: 4 view cervical spine x-ray TECHNIQUE: AP, lateral, AP odontoid, and swimmer's view INDICATION: Right-sided neck pain PRIOR: None FINDINGS: There is straightening of the cervical lordosis. There is no prevertebral soft tissue swelling. Anterior plate and screws fuse C5-6. There is also hardware fusing C6-7 anteriorly. There is mature bony bridging between C5-C7. C2-3 demonstrates subtle retrolisthesis. C3-4 demonstrates mild anterolisthesis and mild disc space narrowing. XR/XR cervical spine 3V IMPRESSION: There is straightening of the expected cervical lordosis. This can be idiopathic, but can also be related to degenerative change, muscle spasm, or posterior soft tissue injury. Anterior fusion C5-C7 Electronically signed by: Anatoliy Reyes MD 10/11/2024 01:46 PM EDT
--- OUTSIDE RECORDS SUMMARY | 2024-10-11 13:37 | XMS_ITS | Clinical Summary ---
Author Organization [facility] Address [address] [place] [address] Phone Care Team Providers Care Offender Job Retention Specialist Name Role Phone Lucrecia Pitt MD Primary Care Provider [phone] Medications ketoconazole (NIZORAL) 2 % cream Apply [...] AM EDT Office Visit Orthopedic Surgery - [place] [address] [phone] Nick Hooper, DPM Acute gout of left [...] AM EDT Office Visit Orthopedic Surgery - [place] [phone] [phone] Nick Hooper, DPM [address] [address] Health Maintenance Due Date Last Done Comments [...] Months Insurance MEDICAID - [place] Care Teams Offender Job Retention Specialist Relationship Specialty Start Date End Date Lucrecia Pitt MD 230 [facility] 1 [place] [address] PCP - General 09/23/22
--- OUTSIDE RECORDS SUMMARY | 2024-10-11 13:37 | XMS_ITS | Clinical Summary ---
Author Organization [facility] Address [address] [facility] [address] [place] [address] [place] [address] Phone Care Team Providers Care Telephone Operator Receptionist Name Role Phone Demetri Tavia Primary Care Provider [phone] Allergies Active Allergy Reactions Criticality Noted Date [...] plan. Moderate persistent asthma 02/24/202211/18 Overview (11/18/2022): -manager credit risk Dr. Wan -continue Flovent -continue Singulair -continue albuterol prn Last Assessment & Plan: -manager credit risk Dr. Wan -continue Flovent -continue Singulair -continue [...] 03/05/2022 CHOLHDLRAT 3.2 03/05/2022 -continue lifestyle modifications Encounters Date Type Department Care Team Description 08/21/2024 Orders Only [facility] [address] [place] [address] [place] [address] Dmitri Sequeira MD Right kidney absent from Last 3 Months Immunizations Immunization Administration Dates Next Due Hepatitis [...] Cancer Screening: Sigmoidoscopy 02/15/2017 Influenza Vaccine (#1) 2024 , 11/01/2022, 02/18/2022, Additional history exists Pneumococcal Vaccine: 50+ Years Completed 11/01/2022, 10/24/2014, 06/25/2014, Additional history exists Pneumococcal Vaccine: Peds ( 0 to 5 Years) and At-Risk Patients (6 to 49 Years) Discontinued 11/01/2022, 10/24/2014, 06/25/2014, Additional history exists Insurance Medicaid [place] Medicaid [place] Care Teams Telephone Operator Receptionist Relationship Specialty Start Date End Date [facility] [address] [place] [address] PCP - General 04/29/22
--- OUTSIDE RECORDS SUMMARY | 2024-10-11 13:37 | XMS_ITS | Patient Health Record ---
Author Organization [facility] Address [address] [place] [address] Care Team Providers Care Fibreglass Laminator Name Role Phone Aleksandr Spangler Jr [phone] Reason For Referral No Information Plan Of Treatment No Information
== END 2024-10-11 13:27 | disposition home or self-care (01) ==
LOC: HO.HHCX 13:26
PROVIDERS: Visit Provider Family Medicine
DX: M54.2 Cervicalgia (principal)
CPT/HCPCS: 72040

== ENCOUNTER → 2024-10-11 13:30 | Outpatient (BNV) | payer MEDICAID, SELFPAY | PROVIDERS: Visit Provider Radiology Diagnostic Radiology | DX: M43.22 Fusion of spine, cervical region (principal) | CPT/HCPCS: 72040 ==

== ENCOUNTER 2024-12-22 07:07 | Outpatient (REF) | payer MEDICAID, SELFPAY ==
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
--- OUTSIDE RECORDS SUMMARY | 2024-12-22 07:11 | XMS_ITS | Encounter Summary ---
Author Organization [employer] Address [address] [facility] 7t [place] [address] Care Team Providers Care Administrative Analyst Name Role Phone Mirtha Lunsford MD Primary Care Provider + [phone] Victoria Radford PharmD Unavailable Acosta Sinha CORRECTIONAL FOOD SERVICE SUPERVISOR Unavailable Unavailable Flip Wan MD Unavailable [phone] Dmitri Sequeira MD Unavailable [phone] Stephane Pisano MD Unavailable Melvin Claros MD Unavailable [phone] Artur Aguilar MD Unavailable [phone] Suzette Bond MD Unavailable [phone] Reason for Visit * Reason Onset Date Comments Other 11/23/2022 Encounter Details Date Type Department Care Team (Late st Contact Info) Description 11/23/2022 Telephone [facility] [address] [place] [address] [phone] Mirtha Lunsford MD [address] [place], [place] [phone] Other Social History Tobacco Use Types Packs/Day [...] helping him. Any questions, contact nidia at [phone] documented in this encounter Plan of Treatment Upcoming Encounters Date Type Department Care Team (Late st Contact Info) Description 02/11/2025 8:00 AM EST Office Visit [facility] ADULT DENTAL [address] [place] [address] Rebecca Capps documented as of this encounter Goals Goal Patient Goal Type Associated Problems Recent Progress Patient-Stated? Author Blood Pressure < 140/90 Blood Pressure 122/74( 025 10:22 AM EDT) No Victoria Mayo, PharmD documented as of this encounter Visit Diagnoses Not on filedocumented in this encounter Additional Health Concerns Assessment Noted Time PHQ-9 Depression Total Score: 10 023 3:38 PM EDT documented as of this encounter Care Teams Administrative Analyst Relationship Specialty Start Date End Date Mirtha Lunsford MD [address] [place] [address] PCP - General Family Medicine 03/04/15 Victoria aRdford, PharmD [address] [place] [address] Pharmacist Internal Medicine 08/03/22 Acosta Sinha FNP [address] [place] [address] Nurse Practitioner Family Medicine 01/17/23 Flip Wan MD 5 [place] [address] Pulmonary Disease 02/02/24 Dmitri Sequeira MD [address] [facility] [address] [place] [address] Nephrology 02/10/24 Stephane Pisano MD [address] 3rd [place] [address] General Surgery 02/10/24 Melvin Claros MD [address] [place] [address] Cardiology 04/16/24 Artur Aguilar MD [address] [place] [address] Endocrinology 05/31/24 Suzette Bond MD [address] [place] [address] Orthopaedic Surgery 10/03/24 NARAYAN LICEA Border Patrol AgentOil Gas And Pipe Tester 01/06/23 02/06/24 Ghassan Fletcher Border Patrol AgentOil Gas And Pipe Tester 02/07/24 Joyce Espino PA-C Lung Cancer Screening Program Radiology 07/31/24 documented as of this encounter
--- OUTSIDE RECORDS SUMMARY | 2024-12-22 07:11 | XMS_ITS | Encounter Summary ---
Author Organization [employer] Address [address] [facility] 7t [place] [address] Care Team Providers Care Decorating Supervisor Name Role Phone Mirtha Lunsford MD Primary Care Provider + [phone] Victoria Radford PharmD Unavailable Acosta Sinha WATER PROOFER Unavailable Unavailable Flip Wan MD Unavailable [phone] Dmitri Sequeira MD Unavailable [phone] Stephane Pisano MD Unavailable Melvin Claros MD Unavailable [phone] Artur Aguilar MD Unavailable [phone] Suzette Bond MD Unavailable [phone] Reason for Visit * Reason Comments Med Refill Encounter Details Date Type Department Care Team (Late st Contact Info) Description 09/23/2022 Refill [facility] PEDS [address] [place], [place] [phone] Mirtha Lunsford MD [address] [place] [address] Seasonal allergies Social History Tobacco Use Types [...] Description 02/11/2025 8:00 AM EST Office Visit [facility] ADULT DENTAL [address] [place] [address] Rebecca Capps documented as of this encounter Goals Goal Patient Goal Type Associated Problems Recent Progress Patient-Stated? Author Blood Pressure < 140/90 Blood Pressure 122/74( 025 10:22 AM EDT) No Victoria Mayo PharmD documented as of this encounter Visit Diagnoses Diagnosis Seasonal allergies Allergic rhinitis, cause unspecified documented in this encounter Additional Health Concerns Assessment Noted Time PHQ-9 Depression Total Score: 10 023 3:38 PM EDT documented as of this encounter Care Teams Decorating Supervisor Relationship Specialty Start Date End Date Mirtha Lunsford MD [address] [place] [address] PCP - General Family Medicine 03/04/15 Victoria Radford, PharmD [address] [place] [address] Pharmacist Internal Medicine 08/03/22 Acosta Sinha FNP [address] [place] [address] Nurse Practitioner Family Medicine 01/17/23 Flip Wan MD [address] [place] [address] Pulmonary Disease 02/02/24 Dmitri Sequeira MD 100 [facility] 200 [place] [address] Nephrology 02/10/24 Stephane Pisano MD [address] 3rd [place] [address] General Surgery 02/10/24 Melvin Claros MD [address] [place] [address] Cardiology 04/16/24 Artur Aguilar MD [address] [place] [address] Endocrinology 05/31/24 Suzette Bond MD [address] [place] [address] Orthopaedic Surgery 10/03/24 NARAYAN LICEA Contact Worker LithographyAir Sealing Technician 01/06/23 02/06/24 Ghassan Fletcher Contact Worker LithographyAir Sealing Technician 02/07/24 Joyce Espino PA-C Lung Cancer Screening Program Radiology 07/31/24 documented as of this encounter
--- OUTSIDE RECORDS SUMMARY | 2024-12-22 07:11 | XMS_ITS | Encounter Summary ---
Author Organization [employer] Address [address] [facility] 7t [place] [address] Care Team Providers Care Fitness And Wellness Manager Name Role Phone Mirtha Lunsford MD Primary Care Provider + [phone] Victoria Radford PharmD Unavailable [phone] Acosta Sinha CLIENT SERVICES MANAGER Unavailable Unavailable Flip Wan MD Unavailable [phone] Dmitri Sequeira MD Unavailable [phone] Stephane Pisano MD Unavailable Melvin Claros MD Unavailable [phone] Artur Aguilar MD Unavailable [phone] Suzette Bond MD Unavailable [phone] Reason for Visit * Reason Comments Med Refill Encounter Details Date Type Department Care Team (Late st Contact Info) Description 11/15/2022 Refill [facility] MED & PEDS [address] [place], [place] [phone] Mirtah Lunsford MD [address] [place] [address] Seasonal allergies Social History Tobacco Use Types [...] Description 02/11/2025 8:00 AM EST Office Visit [facility] ADULT DENTAL [address] [place] [address] Rebecca Capps documented as of this encounter [...] documented as of this encounter Care Teams Fitness And Wellness Manager Relationship Specialty Start Date End Date Mirtha Lunsford MD [address] [place] [address] PCP - General Family Medicine 03/04/15 Victoria Radford, PharmD [address] [place] [address] Pharmacist Internal Medicine 08/03/22 Acosta Sinha FNP [address] [place] [address] Nurse Practitioner Family Medicine 01/17/23 Flip Wan MD [address] [place] [address] Pulmonary Disease 02/02/24 Dmitri Sequeira MD 100 [facility] 200 [place] [address] Nephrology 02/10/24 Stephane Pisano MD [address] 3rd [place] [address] General Surgery 02/10/24 Melvin Claros MD [address] [place] [address] Cardiology 04/16/24 Artur Aguilar MD [address] [place] [address] Endocrinology 05/31/24 Suzette Bond MD [address] [place] [address] Orthopaedic Surgery 10/03/24 NARAYAN LICEA Account RepresentativeTin Pot Operator 01/06/23 02/06/24 Ghassan Fletcher Account RepresentativeTin Pot Operator 02/07/24 Joyce Espino PA-C Lung Cancer Screening Program Radiology 07/31/24 documented as of this encounter
--- OUTSIDE RECORDS SUMMARY | 2024-12-22 07:11 | XMS_ITS | Clinical Summary ---
Author Organization [employer] Address [address] [place] [address] Care Team Providers Care Prison Classification Counselor Name Role Phone Mirtha Lunsford MD Primary Care Provider + [phone] Victoria Radford PharmD Unavailable Acosta Sinha BLADE BONER Unavailable Unavailable Flip Wan MD Unavailable [phone] Dmitri Sequeira MD Unavailable Stephane Pisano MD Unavailable Melvin Claros MD Unavailable Artur Aguilar MD Unavailable Suzette Bond MD Unavailable [phone] Allergies Active Allergy Reactions Criticality Noted Date Comments Amlodipine Swelling 05/11/2022 Other reaction(s): Swelling Ibuprofen 07/20/2017 Other reaction(s): avoids due to having single kidney, KIDNEY ISSUES, Other (see comments) Other reaction(s): KIDNEY ISSUES Other Reaction(s): KIDNEY ISSUES Denies Tylenol allergy , States he has never had any reaction to Tylenol , Iodinated Contrast Media Unknown High 04/06/2019 Other reaction(s): Unknown Levofloxacin Rash Low 07/03/2023 Mushroom Vomiting Low 08/30/2024 Mushroom Extract Complex (Obsolete) Vomiting Low 05/11/2022 [...] without complication Inject under the skin. Active terbinafine (Athletes Foot, Terbinafine,) 1 % [...] chew. 90 tablet 3 06/09/19 25 Active atorvastatin (Lipitor) 80 MG tabletIndicatio ns:Dyslipidemia TAKE 1 TABLET BY MOUTH EVERY MORNING 90 tablet 1 07/26/19 25 Active loratadine (Claritin) 10 MG tabletIndicatio ns:Seasonal allergies TAKE 1 TABLET BY MOUTH EVERY MORNING 90 tablet 1 08/29/19 25 Active acetaminophen (Tylenol 8 Hour) 650 MG ER tablet Take 1 tablet (650 mg) by mouth every 8 (eight) hours if needed for mild pain. Do not crush, chew, or split. 50 tablet 1 10/12/19 25 2025 Active Diclofenac Sodium 1 % gel Apply 2 g topically if needed in the morning, at noon, in the evening, and at bedtime (pain). 150 g 1 10/12/19 25 Active neomycin-bacitr acin-polymyxin (Neosporin) 5-400-5000 ointmentIndicat ions:Insect bite of right upper arm, initial encounter Apply topically 4 times daily. 14.2 g 10/24/19 25 Active albuterol (Ventolin HFA) 108 (90 Base) MCG/ACT inhalerIndicati ons:Moderate persistent asthma with acute exacerbation INHALE 2 PUFFS BY MOUTH EVERY 4 HOURS NEEDED FOR WHEEZING OR SHORTNESS OF BREATH 18 g 1 10/24/19 25 Active albuterol (2.5 MG/3ML) 0.083% nebulizer solutionIndicat ions:Moderate persistent asthma with acute exacerbation Take 3 mL by nebulization every 4 (four) hours if needed for wheezing. 75 mL 2 10/24/19 25 Active baclofen (Lioresal) 10 MG tabletIndicatio ns:Sacroiliac joint dysfunction TAKE 1 TABLET BY MOUTH THREE TIMES DAILY IN THE MORNING, AT NOON, AND AT BEDTIME NEEDED FOR MUSCLE SPASMS 60 tablet 1 11/10/19 25 Active lidocaine (Lidoderm) 5 % patchIndication s:Sacroiliac joint dysfunction APPLY 1 PATCH TOPICALLY TO SKIN, LEAVE ON FOR 12 HOURS AND OFF FOR 12 HOURS DIRECTED 30 patch 1 11/20/19 25 Active mometasone (Elocon) 0.1 % creamIndication s:Rash APPLY TO THE AFFECTED AREA(S) TOPICALLY EVERY DAY 45 g 1 11/20/19 25 Active pregabalin (Lyrica) 150 MG capsuleIndicati ons:Chronic bilateral low back pain, unspecified whether sciatica present TAKE 1 CAPSULE BY MOUTH TWICE DAILY IN THE MORNING AND IN THE EVENING 60 capsule 12/01/19 25 Active pregabalin (Lyrica) 150 MG capsuleIndicati ons:Chronic bilateral low back pain, unspecified whether sciatica present TAKE 1 CAPSULE BY MOUTH TWICE DAILY IN THE MORNING AND IN THE EVENING 60 capsule 10/27/19 25 2024 Discontinued predniSONE (Deltasone) 20 MG tabletIndicatio ns:Moderate persistent asthma with exacerbation Take 2 tablets (40 mg) by mouth Once per day for 5 days. 10 tablet 11/20/19 25 2024 Active Problems Problem Noted Date Diagnosed Date Dental caries 11/22/2024 Fractured dental mandaeism with loss of materi al 11/22/2024 Multiple lipomas 06/18/2024 Overview (06/18/2024): Multiple lipomas [...] 06/18/24. Hx of chest pain 04/16/2024 Overview (11/19/2024): -Patient followed at [facility] with Dr. Agueda Claros DO. Note from 04/12/24 reviewed. --nuclear stress report from 11/07/24: negative ECG portion of stress test, myocardial perfusion imaging normal, EF 51% Stiffness of joints of both hands 02/23/2024 [...] 33.0 to 33.9 in adult 08/29/2023 Overview (12/17/2024): Discussed weight, diet, exercise with patient in relation to health conditions. Used motivational interviewing to illicit change talk and established initial goals with patient. Number for weight management given 12/17/24 Assessment & Plan (12/17/2024 10:58 AM EDT): Discussed weight, diet, exercise with patient in relation to health conditions. Used motivational interviewing to illicit change talk and established initial goals with patient. Number for weight management given 12/17/24 Assessment & Plan (06/18/2024 3:05 PM EDT): [...] polyps 08/24/2023 Cardiac risk counseling 06/17/2023 Overview (12/03/2024): Calculated 06/17/23 The 10-year ASCVD risk score [...] and nutrition interventions discussed. -Patient followed at [facility] with Dr. Agueda Claros DO. Seen 11/28/24 echo and stress test 2024 wnl Fissure in skin of foot 06/17/2023 Overview [...] retention. I spoke with JULIETA Wood at [facility] pain clinic and they want the last CT scan faxed at [phone], they will fu with patient this week. Order lumbar MRI ro cord compromise Other specified health status 07/02/2022 Overview (06/18/2024): -next physical exam due after 06/18/25 -eye care facilitated by [facility] -dental home is [facility] -health care proxy filed 12/19/23 Assessment & Plan (06/18/2024 3:03 PM EDT): -next physical exam due after 06/18/25 -eye care facilitated by [facility] -dental home is [facility] -health care proxy filed 12/19/23 Assessment & Plan (12/19/2023 9:30 AM EDT): -next physical exam due after 05/29/2024 -eye care facilitated by [facility] -dental home is [facility] -health care proxy filed 12/19/23 Assessment & Plan (05/30/2023 10:13 AM EDT): -next physical exam due after 02/28/2023 -eye care facilitated by [facility] -dental home is [facility] -health care proxy given on [...] benign adenoma. Biochemical workup showed mass not medical secretary teacher including dexamethasone suppression test. Repeat CT done [...] benign adenoma. Biochemical workup showed mass not medical secretary teacher including dexamethasone suppression test. Repeat CT done [...] benign adenoma. Biochemical workup showed mass not medical secretary teacher including dexamethasone suppression test. Repeat CT done 2019. Follow up Dr. Aguilar 1 year recommended. -referral placed 05/30/23 Assessment & Plan (01/24/2023 9:53 AM EST): Seen by Dr. Aguilar 05/08/2021 (prior was followed by Dr. Moseley) Hx incidental finding right adrenal nodule found in CT preformed in ER Feb 2018 c/w benign adenoma. Biochemical workup showed mass not medical secretary teacher including dexamethasone suppression test. Repeat CT done [...] plan. Moderate persistent asthma 02/24/2022 Overview (02/02/2024): -electrician Dr. Wan seen 02/02/24 -Well controlled on current regimen of Xolair, Combivent, Advair, albuterol MDI. -last prednisone use 12/28/23 for exacerbation, given by pulmonary Assessment & Plan (12/17/2024 10:58 AM EDT): -electrician Dr. Wan seen 02/02/24 -Well controlled on current regimen of Xolair, Combivent, Advair, albuterol MDI. -last prednisone use 12/28/23 for exacerbation, given by pulmonary Assessment & Plan (06/18/2024 3:06 PM EDT): -electrician Dr. Wan seen 02/02/24 -Well controlled on current regimen of Xolair, Combivent, Advair, albuterol MDI. -last prednisone use 12/28/23 for exacerbation, given by pulmonary Assessment & Plan (02/23/2024 10:09 AM EST): -electrician Dr. Wan seen 02/02/24 -Well controlled on current regimen of Xolair, Combivent, Advair, albuterol MDI. -last prednisone use 12/28/23 for exacerbation, given by pulmonary Assessment & Plan (05/30/2023 12:31 PM EDT): -electrician Dr. Wan seen 12/2022 -Well controlled on current regimen of Xolair, Combivent, Advair, albuterol MDI. Continue current Assessment & Plan (01/24/2023 9:53 AM EST): -electrician Dr. Wan seen 12/2022 -Well controlled on current regimen of Xolair, Combivent, Advair, albuterol MDI. Continue current Assessment & Plan (12/20/2022 8:01 PM EDT): Few wheezing on lung exam,reports feeling well -offered NBZ tx here but refuse states will get at home ,and got pump tx before coming that may cause elevated HR -continue his regular inh and montelukast -continue care w electrician -planned apt for next month -advised to get booster for COVID 19 at vaccine clinic, pt s/p p20 and flu vaccine already Assessment & Plan (11/01/2022 9:02 AM EDT): -electrician Dr. Wan -continue Flovent -continue Singulair -continue albuterol prn Assessment & Plan (06/28/2022 10:09 AM EDT): Normal lung exam. advised to call Dr. Wan, his electrician, for kristan't. continue Flovent, Singulair, may use [...] kidney disease 08/19/2020 Essential hypertension 08/19/2020 Overview (11/19/2024): -followed by [facility] -echo 03/31/23 EF 60-65% no changes compared to02/2017 -Blood pressure is slightly above goal, recommended monitoring at home. -Continue lifestyle modifications -Continue current medications -cardiology note from 04/12/23, no changes, follow up 6 months -echo 10/24/24 unremarkable with EF 60-65%, no evidence of pulmonary hypertension -nuclear stress report from 11/07/24: negative ECG portion of stress test, myocardial perfusion imaging normal, EF 51% Assessment & Plan (12/17/2024 10:58 AM EDT): -followed by [facility] -echo 03/31/23 EF 60-65% no changes compared to02/2017 -Blood pressure is slightly above goal, recommended monitoring at home. -Continue lifestyle modifications -Continue current medications -cardiology note from 04/12/23, no changes, follow up 6 months Assessment & Plan (06/18/2024 3:06 PM EDT): -followed by [facility] -echo 03/31/23 EF 60-65% no changes compared to02/2017 -Blood pressure is slightly above goal, recommended monitoring at home. -Continue lifestyle modifications -Continue current medications -cardiology note from 04/12/23, no changes, follow up 6 months Assessment & Plan (11/03/2023 10:12 AM EDT): -followed by [facility] -echo 03/31/23 EF 60-65% no changes compared to02/2017 -Blood pressure is at goal -Continue lifestyle modifications -Continue current medications -cardiology note from 04/12/23, no changes, follow up 6 months Assessment & Plan (05/30/2023 12:31 PM EDT): -followed by [facility] -echo 03/31/23 EF 60-65% no changes [...] psychiatric prescriber Loraine Bunch Dyslipidemia 03/09/2012 Overview (12/17/2024): Lab Results Component Value Date CHOL 183 08/26/2023 CHOL 237 (H) 05/30/2023 TRIG 78 08/26/2023 TRIG 139 05/30/2023 TRIG 159 (H) 03/05/2022 HDL 78 08/26/2023 HDL 79 05/30/2023 LDLCHOLCAL 90 08/26/2023 LDLCHOLCAL 131 (H) 05/30/2023 -atorvastatin increased from 40mg to 80mg by [facility] 08/2023 -continue lifestyle modifications Assessment & Plan (12/17/2024 10:58 AM EDT): Lab Results Component Value Date CHOL 183 08/26/2023 CHOL 237 (H) 05/30/2023 TRIG 78 08/26/2023 TRIG 139 05/30/2023 TRIG 159 (H) 03/05/2022 HDL 78 08/26/2023 HDL 79 05/30/2023 LDLCHOLCAL 90 08/26/2023 LDLCHOLCAL 131 (H) 05/30/2023 -atorvastatin increased from 40mg to 80mg by [facility] 08/2023 -continue lifestyle modifications Assessment & Plan (06/18/2024 3:03 PM EDT): Lab Results Component Value Date CHOL 183 08/26/2023 CHOL 237 (H) 05/30/2023 TRIG 78 08/26/2023 TRIG 139 05/30/2023 TRIG 159 (H) 03/05/2022 HDL 78 08/26/2023 HDL 79 05/30/2023 LDLCHOLCAL 90 08/26/2023 LDLCHOLCAL 131 (H) 05/30/2023 -atorvastatin increased from 40mg to 80mg by [facility] 08/2023 -continue lifestyle modifications Assessment & Plan [...] as pharmacomtherapy, [facility] smoking cessation group, and [facility] pharmacy smoking cessation clinic -14mg and 7mg patches trialed 11/01/2022 Discussed USPSTF recommends annual lung cancer screening with low dose CT in people who meet the following criteria: -ages 50 to 80 years. -have a 20 pack-year smoking history. -currently smoke cigarettes or quit within the past 15 years. -LDCT: referral on 05/30/2023 to pharmacy with [facility]: patient seen in [facility] 10/31/23 and reports smoking 4-5cigs/day and denies using NRT, states he will continue efforts without NRT. Ordered LDCT 06/18/24. Assessment & Plan (06/18/2024 3:02 PM EDT): -Cigg/day: 5 -Age started: 23 -Total years smokin -Pack year history: 15 packs Encouraged smoking cessation resources such as pharmacomtherapy, [facility] smoking cessation group, and [facility] pharmacy smoking cessation clinic -14mg and [...] as pharmacomtherapy, [facility] smoking cessation group, and [facility] pharmacy smoking cessation clinic -14mg and [...] diet and exercise,discussed healthy life style -discussed senior office assistant referral -referred today Acute dehydration 09/23/2022 10/27/2022 [...] for one week only and not terminal superintendent. Acute idiopathic gout involv ing toe of [...] 10/27/2022 Absent kidney 08/19/2020 02/10/2024 Rheumatoid arthritis (CMS/HCC) 08/19/2020 10/27/2022 Nicotine dependence 08/19/2020 07/03/19 Mild intermittent asthma 11/22/2016 Episodic opioid dependence ([facility]) 03/09/2012 07/02/2022 Encounters Date Type Department Care Team Description 12/17/2024 10:45 AM EDT Office Visit [facility] [address] [place] [phone] Mirtha Lunsford MD Dyslipidemia (Primary Dx); Moderate persistent asthma without complication; Prostate cancer screening; Routine screening for STI (sexually transmitted infection); Essential hypertension; Class 1 obesity due to excess calories with serious comorbidity and body mass index (BMI) of 33.0 to 33.9 in adult 12/17/2024 Travel 12/14/2024 Telephone [facility] [address] [place] [address] [phone] Mirtha Lunsford MD chart prep 11/30/2024 Refill [facility] [address] [place] [address] [phone] Mirtha Lunsford MD Chronic bilateral low back pain, unspecified whether sciatica present 11/22/2024 9:30 AM EDT Office Visit [facility] [address] [place] [address] [phone] Elmer Lopez DDS Fractured dental mandaeism with loss of material (Primary Dx); Dental caries 11/19/2024 3:15 PM EDT Office Visit [address] [phone] Kitty Funk NP Moderate persistent asthma with exacerbation (Primary Dx) 11/19/2024 Travel 11/18/2024 Refill [facility] [address] [place] [phone] Mirtha Lunsford MD Sacroiliac joint dysfunction; Rash 11/08/2024 Refill [facility] [address] [place] [phone] Shayla Ferrer DO Sacroiliac joint dysfunction 10/26/2024 Refill [facility] [address] [place] [address] [phone] Mirtha Lunsford MD Chronic bilateral low back pain, unspecified whether sciatica present 10/24/2024 Orders Only [facility] [address] [place] [phone] Provider, MD Thalia Essential hypertension (Primary Dx) 10/23/2024 6:40 PM EDT Office Visit [facility] [address] [place] [phone] Leonora Quintero CNP Insect bite of right upper arm, initial encounter (Primary Dx); Moderate persistent asthma with acute exacerbation; Cervical radiculopathy 10/23/2024 Travel 10/11/2024 1:00 PM EDT Office Visit [facility] [address] [place] [address] [phone] Shayla Ferrer DO Neck pain (Primary Dx); Excessive foreskin; Sacroiliac joint dysfunction 10/11/2024 Telephone [facility] [address] [place] [phone] Shayla Ferrer DO Results 10/11/2024 Orders Only [facility] [address] [place] [address] [phone] Shayla Ferrer DO 10/11/2024 Travel 09/27/2024 Telephone [facility] [address] [place] [address] [phone] Mirtha Lunsford MD November Recalls 09/27/2024 Travel 09/27/2024 Refill [facility] [address] [place] [phone] Mirtha Lunsford MD Chronic bilateral low back pain, unspecified whether sciatica present 09/21/2024 Refill [facility] [address] [place] [address] [phone] Mirtha Lunsford MD Moderate persistent asthma without [...] oz) 12/17/2024 10:22 A M EDT Height 172.7 cm (5' 8 ) 10/23/2024 6:19 PM EDT Body Mass Index 33.85 10/23/2024 6:19 PM EDT Plan of Treatment Upcoming Encounters Date Type Department Care Team (Late st Contact Info) Description 02/11/2025 8:00 AM EST Office Visit [facility] [address] [place] [phone] Alberto Cappssa Health Maintenance Due Date Last Done Comments CT Colonography 1970 FIT DNA/Cologuard 1970 FIT 1970 FOBT 1970 Sigmoidoscopy 1970 Colonoscopy 08/23/2024 08/24/2023, 06/21, 07/08/2023, Additional history exists Colorectal Cancer Screening 08/23/2024 Influenza Vaccine (#1) 2024 , 11/01/2022, 02/18/2022, Additional history exists DTaP/Tdap/Td Vaccines (2 - Td or Tdap) 10/24/2024 10/24/2014, 11/15/2011, 11/15/2011, Additional history exists Dental X-Ray: Bitewings 01/16/2025 01/16/20 24, 04/15/2021, 03/26/2021, Additional history exists Dental Oral Exam 01/19/2025 07/18/2024, , 07/25/2020, Additional history exists Dental Prophylaxis 01/19/2025 07/18/2024, 1 03/17/2023, 07/25/2020, Additional history exists SDOH Screening 06/06/2025 06/06/2024 Depression Screening 06/18/2025 06/18/2024, 06/19/19 Disability Screening 06/18/2025 06/18/2024 Alcohol/Substance Use Screening 12/17/2025 12/17/2024 Tobacco Screening 12/17/2025 12/17/2024 Dental X-Ray: Full Mouth 01/16/2027 024, 07/25/2020, [...] Additional history exists HIV Screening Completed 02/28/2024, 0 09/2023, 03/12/2022 [...] Procedure Name Priority Date/Time Associated Diagnosis Comments 5 MOB RESIN-BASED COMPOSITE - 3 SURF, POSTERIOR Routine 11/22/2024 9:30 AM EDT CASE PRESENTATION, DETAILED AND EXTENSIVE TREATMENT PLANNING Routine 11/22/2024 9:30 AM EDT 7 ML RESIN-BASED COMPOSITE - 2 SURF, ANTERIOR Routine 11/22/2024 9:30 AM EDT TRANSTHORACIC ECHO (TTE) COMPLETE Routine 10/16/2024 10:50 AM EDT XR CERVICAL SPINE 3V Routine 10/11/2024 1:30 PM EDT PROPHYLAXIS - ADULT Routine 07/18/2024 8 :00 AM EDT Dental calculus Dental plaque PERIODIC ORAL EVALUATION - ESTABLISHED PATIENT Routine 07/18/2024 8:00 AM EDT HEPATITIS C AB W/REFL TO [...] Recently Relevant to Health Maintenance Results * Transthoracic echo (TTE) complete (10/16/2024 10:50 AM EDT) us Historical Provider MD [facility] ECHO PROCEDURES Final Result * XR CERVICAL SPINE 3V (10/11/2024 1:30 PM EDT) Anatomical Region Laterality Modality Abdomen Radiographic Ursula ging 10/11/2024 1:30 PM EDT Narrative 10/11/2024 1:49 PM EDT [address] [address] XRay Report Signed Patient: Yuri Stokes MR#: [id number] : 1970 Acct:[id number] Age/Sex: 54 / M ADM Date: 10/11/24 Loc: HO.HHCX Attending Dr: Shayla Ferrer DO Ordering Physician: Shayla Ferrer DO Date of Service: 10/11/24 Procedure(s): XR cervical spine 3V Accession Number(s): [id number] cc: Shayla Ferrer DO EXAM: 4 view cervical spine x-ray TECHNIQUE: AP, lateral, AP odontoid, and swimmer's view INDICATION: Right-sided neck pain PRIOR: None FINDINGS: There is straightening of the cervical lordosis. There is no prevertebral soft tissue swelling. Anterior plate and screws fuse C5-6. There is also hardware fusing C6-7 anteriorly. There is mature bony bridging between C5-C7. C2-3 demonstrates subtle retrolisthesis. C3-4 demonstrates mild anterolisthesis and mild disc space narrowing. XR/XR cervical spine 3V IMPRESSION: There is straightening of the expected cervical lordosis. This can be idiopathic, but can also be related to degenerative change, muscle spasm, or posterior soft tissue injury. Anterior fusion C5-C7 Electronically signed by: Anatoliy Reyes MD 10/11/2024 01:46 PM EDT Dictated By: Anatoliy Reyes MD Signed By: <Electronically signed by Anatoliy Reyes MD in OV> 10/11/24 1346 DD/ 1330 TD/TT: 10/11/24 1335 Core Layer Machine Operator: Procedure Note Donotuseinterpreter, Image - 10/11/[address] [address] XRay Report Signed Patient: Yuri Stokes MR#: [id number] : 1970Acct:[id number] Age/Sex: 54 / MADM Date: 10/11/24 Loc: HO.HHCX Attending Dr: Shayla eFrrer DO Ordering Physician: Shayla Ferrer DO Date of Service: 10/11/24 Procedure(s): XR cervical spine 3V Accession Number(s): [id number] cc: Shayla Ferrer DO EXAM: 4 view cervical spine x-ray TECHNIQUE: AP, lateral, AP odontoid, and swimmer's view INDICATION: Right-sided neck pain PRIOR: None FINDINGS: There is straightening of the cervical lordosis. There is no prevertebral soft tissue swelling. Anterior plate and screws fuse C5-6. There is also hardware fusing C6-7 anteriorly. There is mature bony bridging between C5-C7. C2-3 demonstrates subtle retrolisthesis. C3-4 demonstrates mild anterolisthesis and mild disc space narrowing. XR/XR cervical spine 3V IMPRESSION: There is straightening of the expected cervical lordosis. This can be idiopathic, but can also be related to degenerative change, muscle spasm, or posterior soft tissue injury. Anterior fusion C5-C7 Electronically signed by: Anatoliy Reyes MD 10/11/2024 01:46 PM EDT RP Dictated By: Anatoliy Reyes MD Signed By: <Electronically signed by Anatoliy Reyes MD in OV> 10/11/24 1346 DD/ 1330 TD/TT: 10/11/24 1335 Core Layer Machine Operator: Shayla Ferrer DO IMG XR PROCEDURES Final Resu lt * Hepatitis C Antibody with Reflex to HCV, RNA, Quantitative, Real-Time PCR (02/28/2024 9:26 AM EST) Hepatitis C Antibody Nonreactive Nonreactive [facility] Comment:Antibodies to HCV no t detected; does not exclude early acuteHCV infection. Blood Venous blood specimen / Unknown 02/28/2024 9:26 AM EST 02/28/2024 11:15 AM EST iMrtha Lunsford MD LAB BLOOD ORDERABLES Final Result Performing Organization Address [facility] Co de Phone Number [facility] [address] [place] [address] [phone] * HIV-1/2 Antigen and Antibodies, Fourth Generation, with Reflexes (02/28/2024 9:26 AM EST) HIV AB/AG Nonreactive Nonreactive [facility] Comment:HIV-1 p24 Ag and/or HIV-1/HIV-2 Ab not detected.A test result that is nonreactive does not exclude thepossibility of exposure to or infection with HIV-1 and/orHIV-2. Nonreactive results in this assay for individualswith prior exposure to HIV-1 and/or HIV-2 may be due toantigen and antibody levels that are below the limit ofdetection of this assay.The [employer] HIV Ag/Ab Combo assay result andsupplemental assay results should be interpreted inconjunction with the patient's clinical presentation,history and other laboratory results. If the results areinconsistent with clinical evidence, additional testing issuggested to confirm the result. Blood Venous blood specimen / Unknown 02/28/2024 9:26 AM EST 02/28/2024 11:15 AM EST Mirtha Lunsford MD LAB BLOOD ORDERABLES Final Result Performing Organization Address [facility] Co de Phone Number [facility] [address] [place] [address] [phone] * Lipid Panel, Standard (08/26/2023 9:11 AM EDT) Triglycerides 78 <150 mg/dL [facility] Comment:Desirable Triglyceri de: less than 150 mg/dLBorderline High Triglyceride 150-199 mg/dLHigh Triglyceride: 200-499 mg/dLVery High Triglyceride: greater than or equal to 5OO mg/dL Cholesterol 183 <200 mg/dL [facility] Comment:Desirable Cholestero l: less than 200 mg/dLBorderline High Cholesterol: 200-239 mg/dLHigh Cholesterol: greater than 239 mg/dL LDL Cholesterol Calculated 90 <100 mg/dL [facility] Comment:Desirable LDL: less than 100 mg/dLNear Optimal/Above Optimal LDL: 110- 129 mg/dLBorderline High LDL: 130-159 mg/dLHigh LDL: 160-189 mg/dLVery High LDL: greater than or equal to 190 mg/dL HDL Cholesterol 78 >40 mg/dL [facility] Comment:Desirable HDL: great er than 40 mg/dL Note: This HDL assay may give artificially low results in patients with liver disease. 08/26/2023 9:11 AM EDT 08/26/2023 11:07 AM EDT Mirtha Lunsford MD LAB BLOOD ORDERABLES Final Result [facility] [address] [place] [phone] * (ABNORMAL) Colonoscopy (07/08/2023) Colonoscopy Abnormal( A) Normal Comment:Multiple polyps with Dr. Pisano, repeat 1 year Historical Provider HEALTH MAINTENANCE Edited Result - Final from Last 3 Months or Most Recently Relevant to Health Maintenance Insurance 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 Advance Directives and Living Will 12/19/2023 Health Care Proxy 12/19/23 Care Teams Prison Classification Counselor Relationship Specialty Start Date End Date [facility], MD Mirtha [address] [place] [address] PCP - General Family Medicine 03/04/15 Victoria Radford PharmD [address] [place] [address] Pharmacist Internal Medicine 08/03/22 Acosta Sinha FNP [address] [place] [address] Nurse Practitioner Family Medicine 01/17/23 Flip Wan MD [address] [place] [address] Pulmonary Disease 02/02/24 Dmitri Sequeira MD [address] [place] [address] Nephrology 02/10/24 Stephane Pisano MD [address] 3rd [place] [address] General Surgery 02/10/24 Melvin Claors MD 596 [place] [address] Cardiology 04/16/24 Artur Aguilar MD [address] [place] [address] Endocrinology 05/31/24 Suzette Bond MD [address] [place] [address] Orthopaedic Surgery 10/03/24 Ghassan Justine Electric Motor FitterBit Sander 02/07/24June,Joyce Hoover PA-C Lung Cancer Screening Program Radiology 07/31/24
--- OUTSIDE RECORDS SUMMARY | 2024-12-22 07:12 | XMS_ITS | Encounter Summary ---
Author Organization [employer] Address 75 [facility] 7t [place] [address] Care Team Providers Care Biological Science Aide Name Role Phone Mirtha Lunsford MD Primary Care Provider + [phone] Victoria Radford PharmD Unavailable +[phone] Acosta Sinha Unavailable Unavailable Flip Wan MD Unavailable [phone] Dmitri Sequeira MD Unavailable +[phone] Stephane Pisano MD Unavailable +[phone] Melvin Claros MD Unavailable +[phone] Artur Aguilar MD Unavailable +[phone] Suzette Bond MD Unavailable +[phone] Reason for Visit * Reason Comments Med Refill Encounter Details Date Type Department Care Team (Late st Contact Info) Description 02/02/2023 Refill [facility] MEDICINE 230 [place] [address] Acosta Sinha FNP Social History Tobacco Use [...] Description 02/11/2025 8:00 AM EST Office Visit [facility] ADULT DENTAL 230 [place] [address] Rebecca Capps documented as of this encounter [...] documented as of this encounter Care Teams Biological Science Aide Relationship Specialty Start Date End Date Mirtha Lunsford MD 230 [place] [address] PCP - General Family Medicine 03/04/15 Victoria Radford PharmD 230 [place] [address] Pharmacist Internal Medicine 08/03/22 Acosta Sinha FNP 230 [place] [address] Nurse Practitioner Family Medicine 01/17/23 Flip Wan MD 5 [place] [address] Pulmonary Disease 02/02/24 Dmitri Sequeira MD 100 [facility] [address] [place] [address] Nephrology 02/10/24 Stephane Pisano MD 11 [facility] 3rd [place] [address] General Surgery 02/10/24 Melvin Claros MD 596 [place] [address] Cardiology 04/16/24 Artur Aguilar MD [address] [place] [address] Endocrinology 05/31/24 Suzette Bond MD [address] [place] [address] Orthopaedic Surgery 10/03/24 NARAYAN LICEA Air Crew SupervisorDialysis Equipment Technician 01/06/23 02/06/24 Ghassan Fletcher Air Crew SupervisorDialysis Equipment Technician 02/07/24 Kenzie,Joyce Hoover PA-C Lung Cancer Screening Program Radiology 07/31/24 documented as of this encounter
--- OUTSIDE RECORDS SUMMARY | 2024-12-22 07:12 | XMS_ITS | Clinical Summary ---
Author Organization 175 [facility] Address 175 [place] [address] Phone Care Team Providers Care Vacuum Cleaner Operator Name Role Phone Lucrecia Pitt MD Primary Care Provider [phone] Medications ketoconazole (NIZORAL) 2 % cream Apply topically 1 (one) time each day. 30 g 2 Active Encounters Date Type Department Care Team Description 11/05/2024 10:15 AM EDT Office Visit Orthopedic Surgery [facility] [address] [address] Nick Hooper, DPM Pes planus of both feet (Primary Dx); Dermatophytosis of nail; Tinea pedis [...] Care Team (Late st Contact Info) Description 12/26/2024 9:15 AM EST Office Visit Orthopedic [facility] [address] [place] [address] [place] [phone] Nick Hooper, DPM [address] [place] [phone] Health Maintenance Due Date Last Done Comments Colorectal Cancer Screening: Colonoscopy 1968 RSV Immunization Adult Patients (1 - Risk 50-74 years 1-dose series) 02/15/2018 Social Influencers of Health Screening 03/18/2023 Depression [...] to complete this topic Insurance MEDICAID - [place] Care Teams Vacuum Cleaner Operator Relationship Specialty Start Date End Date Lucrecia Pitt MD [address] [address] PCP - General 09/23/22
--- OUTSIDE RECORDS SUMMARY | 2024-12-22 07:12 | XMS_ITS | Encounter Summary ---
Author Organization [employer] Address 75 [facility] 7t [place] [address] Care Team Providers Care Crystal Mounter Name Role Phone Mirtha Lunsford MD Primary Care Provider + [phone] Victoria Radford PharmD Unavailable [phone] Acosta Sinha SPA ASSOCIATE Unavailable Unavailable Flip Wan MD Unavailable [phone] Dmitri Sequeira MD Unavailable [phone] Stephane Pisano MD Unavailable +[phone] Melvin Claros MD Unavailable [phone] Artur Aguilar MD Unavailable +[phone] Suzette Bond MD Unavailable +[phone] Encounter Details Date Type Department Care Team (Latest Contact Info) Description 07/03/2018 Abstract [facility] CONVERSIONS Dental, Provider, DDS Social History [...] Description 02/11/2025 8:00 AM EST Office Visit [facility] ADULT DENTAL 230 [place] [address] Rebecca Capps documented as of this encounter Visit Diagnoses Not on filedocumented in this encounter Care Teams Crystal Mounter Relationship Specialty Start Date End Date Mirtha Lunsford MD 230 [place] [address] PCP - General Family Medicine 03/04/15 Victoria Radford PharmD 230 [place] [address] Pharmacist Internal Medicine 08/03/22 Acosta Sinha FNP 230 [place] [address] Nurse Practitioner Family Medicine 01/17/23 Flip Wan MD 5 [place] [address] Pulmonary Disease 02/02/24 Dmitri Sequeira MD [address] [phone] Nephrology 02/10/24 Stephane Pisano MD 11 [facility] 3rd [place] [address] General Surgery 02/10/24 Melvin Claros MD 596 [place] [address] Cardiology 04/16/24 Artur Aguilar MD [address] [place] [address] Endocrinology 05/31/24 Suzette Bond MD [address] [place] [address] Orthopaedic Surgery 10/03/24 NARAYAN LICEA Glass Novelty MakerToe Stapler 01/06/23 02/06/24 Ghassan Fletcher Glass Novelty MakerToe Stapler 02/07/24 Joyce Espino PA-C Lung Cancer Screening Program Radiology 07/31/24 documented as of this encounter
--- OUTSIDE RECORDS SUMMARY | 2024-12-22 07:12 | XMS_ITS | Encounter Summary ---
Author Organization [employer] Address 75 [facility] 7t [place] [address] Care Team Providers Care Wood Tile Installer Name Role Phone Mirtha Lunsford MD Primary Care Provider + [phone] Victoria Radford PharmD Unavailable +[phone] Acosta Sinha APPLIED PSYCHOLOGY TEACHER Unavailable Unavailable Flip Wan MD Unavailable +[phone] Dmitri Sequeira MD Unavailable [phone] Stephane Pisano MD Unavailable +[phone] Melvin Claros MD Unavailable [phone] Artur Aguilar MD Unavailable +[phone] Suzette Bond MD Unavailable [phone] Encounter Details Date Type Department Care Team (Late st Contact Info) Description 05/14/2024 Orders Only [facility] MEDICINE 230 [place], [place] [phone] Mirtha Lunsford MD 230 [place], [place] [phone] Class 1 obesity due to excess calories [...] Description 02/11/2025 8:00 AM EST Office Visit [facility] ADULT DENTAL 230 [place] [address] Rebecca Capps documented as of this encounter Goals Goal Patient Goal Type Associated Problems Recent Progress Patient-Stated? Author Blood Pressure < 140/90 Blood Pressure 122/74(10/27/2 025 10:22 AM EDT) No Victoria Mayo [...] documented as of this encounter Care Teams Wood Tile Installer Relationship Specialty Start Date End Date Mirtha Lunsford MD 230 [place] [address] PCP - General Family Medicine 03/04/15 Victoria Radford PharmD [address] [place] [address] Pharmacist Internal Medicine 08/03/22 Acosta Sinha FNP [address] [place] [address] Nurse Practitioner Family Medicine 01/17/23 Flip Wan MD 5 [place] [address] Pulmonary Disease 02/02/24 Dmitri Sequeira MD [address] [address] Nephrology 02/10/24 Stephane Pisano MD 11 [facility] 3rd [place] [address] General Surgery 02/10/24 Melvin Claros MD 596 [place] [address] Cardiology 04/16/24 Artur Aguilar MD [address] [place] [address] Endocrinology 05/31/24 Suzette Bond MD [address] [place] [address] Orthopaedic Surgery 10/03/24 Ghassan Feltcher Cell InstallerDog Or Animal Sitter 02/07/24June,Joyce Hoover PA-C Lung Cancer Screening Program Radiology 07/31/24 documented as of this encounter
--- OUTSIDE RECORDS SUMMARY | 2024-12-22 07:12 | XMS_ITS | Encounter Summary ---
Author Organization [employer] Address 75 [facility] 7t [place] [address] Care Team Providers Care Clinical Mental Health Counselor Name Role Phone Mirtha Lunsford MD Primary Care Provider + [phone] Victoria Radford PharmD Unavailable +[phone] Acosta Sinha DIGITAL MEASUREMENT ADVISOR Unavailable Unavailable Flip Wan MD Unavailable [phone] Dmitri Sequeira MD Unavailable +[phone] Stephane Pisano MD Unavailable +[phone] Melvin Claros MD Unavailable [phone] Artur Aguilar MD Unavailable [phone] Suzette Bond MD Unavailable [phone] Reason for Visit * Reason Comments Med Refill Encounter Details Date Type Department Care Team (Late st Contact Info) Description 12/29/2023 Refill [facility] MEDICINE 230 [place], [place] [phone] Anya Mluler, ANP 230 [place] [address] Essential hypertension Social History Tobacco Use Types [...] t he electric, gas, oil or water [employer] threatened to shut off services in your [...] Description 02/11/2025 8:00 AM EST Office Visit [facility] ADULT DENTAL 230 [place] [address] Rebecca Capps documented as of this encounter [...] documented as of this encounter Care Teams Clinical Mental Health Counselor Relationship Specialty Start Date End Date Mirtha Lunsford MD 230 [place] [address] PCP - General Family Medicine 03/04/15 Victoria Radford, PharmD [address] [place] [address] Pharmacist Internal Medicine 08/03/22 Acosta Sinha FNP [address] [place] [address] Nurse Practitioner Family Medicine 01/17/23 Flip Wan MD 5 [place] [address] Pulmonary Disease 02/02/24 Dmitri Sequeira MD 100 [facility] 200 [place] [address] Nephrology 02/10/24 Stephane Pisano MD [address] 3rd [place] [address] General Surgery 02/10/24 Melvin Claros MD 596 [place] [address] Cardiology 04/16/24 Artur Aguilar MD [address] [place] [address] Endocrinology 05/31/24 Suzette Bond MD [address] [place] [address] Orthopaedic Surgery 10/03/24 NARAYAN LICEA Contact Acid Plant OperatorProgressive Die Maker 01/06/23 02/06/24 Ghassan Fletcher Contact Acid Plant OperatorProgressive Die Maker 02/07/24June,Joyce Hoover PA-C Lung Cancer Screening Program Radiology 07/31/24 documented as of this encounter
--- OUTSIDE RECORDS SUMMARY | 2024-12-22 07:12 | XMS_ITS | Encounter Summary ---
Author Organization [employer] Address 75 [facility] 7t [place] [address] Care Team Providers Care Filer Helper Name Role Phone Mirtha Lunsford MD Primary Care Provider + [phone] Victoria Radford PharmD Unavailable [phone] Acosta Sinha PARTS CASTING MACHINE OPERATOR Unavailable Unavailable Flip Wan MD Unavailable [phone] Dmitri Sequeira MD Unavailable [phone] Stephane Pisano MD Unavailable [phone] Melvin Claros MD Unavailable [phone] Artur Aguilar MD Unavailable [phone] Suzette Bond MD Unavailable [phone] Reason for Referral * Consultation (Routine) - Closed Specialty Diagnoses / Procedures Referred By Contac t Referred To Contact Nutrition Diagnoses Class 1 obesity due to excess calories with serious comorbidity and body mass index (BMI) of 33.0 to 33.9 in adult Kalli Henderson MD 230 [place] [address] Phone: tel: fax: Referral ID Status Reason Start Date Expiration Date V isits Requested Visits Authorized [id number] Closed Consult and Treat 05/10/2024 05/10/2025 1 1 Encounter Details Date Type Department Care Team (Late st Contact Info) Description 05/10/2024 Orders Only [facility] MEDICINE 230 [place] [address] Kalli Henderson MD 230 [place] [address] Class 1 obesity due to excess calories [...] Description 02/11/2025 8:00 AM EST Office Visit [facility] ADULT DENTAL 230 [place] [address] Rebecca Capps Scheduled Referrals Name Type Priority [...] documented as of this encounter Care Teams Filer Helper Relationship Specialty Start Date End Date Mirtha Lunsford MD [address] [place] [address] PCP - General Family Medicine 03/04/15 PetesVictoria Duran, PharmD [address] [place] [address] Pharmacist Internal Medicine 08/03/22 Acosta Sinha FNP [address] [place] [address] Nurse Practitioner Family Medicine 01/17/23 Flip Wan MD [address] [place] [address] Pulmonary Disease 02/02/24 Dmitri Sequeira MD 100 [facility] 200 [place] [address] Nephrology 02/10/24 Stephane Pisano MD [address] 3rd [place] [address] General Surgery 02/10/24 Melvin Claros MD 596 [place] [address] Cardiology 04/16/24 Artur Aguilar MD [address] [place] [address] Endocrinology 05/31/24 Suzette Bond MD [address] [place] [address] Orthopaedic Surgery 10/03/24 Ghassan Houoie Automotive Light MechanicManager Lpn 02/07/24June,Joyce Hoover PA-C Lung Cancer Screening Program Radiology 07/31/24 documented as of this encounter
--- OUTSIDE RECORDS SUMMARY | 2024-12-22 07:12 | XMS_ITS | Encounter Summary ---
Author Organization [employer] Address 75 [facility] 7t [place] [address] Care Team Providers Care Line Patroller Name Role Phone Mirtha Lunsford MD Primary Care Provider + [phone] Victoria Radford PharmD Unavailable [phone] Acosta Sinha Unavailable Unavailable Flip Wan MD Unavailable [phone] Dmitri Sequeira MD Unavailable [phone] Stephane Pisano MD Unavailable [phone] Melvin Claros MD Unavailable [phone] Artur Aguilar MD Unavailable [phone] Suzette Bond MD Unavailable [phone] Encounter Details Date Type Department Care Team (Latest Contact Info) Description 12/17/2024 Travel Social History Tobacco Use Types Packs/Day [...] AM EDT documented as of this encounter Functional Status * Over the last 2 weeks, how often have you been bothered by any of the following problems? Question Answer Date of Assessment Author Feeling nervous, anxious, or on edge 3 11/22 10:23 AM Joyce Morales MA Not being able to stop or co ntrol worrying 3 12/17/2024 10:23 AM Joyce Morales M A Worrying too much about diff erent things 3 12/17/2024 10:23 AM Joyce Morales M A Trouble relaxing 3 12/17/2024 10:23 AM Joyce Morales MA Being so restless that it is hard to sit still 3 12/17/2024 10:23 AM Joyce Morales M A Becoming easily annoyed or irritable 3 11/22 10:23 AM EDT Joyce Nava MA Feeling afraid as if somethi ng awful might happen 3 12/17/2024 10:23 AM EDT Joyce Nava M A ALLISON-7 Total Score 21 12/17/2024 10:23 AM EDT Joyce Nava MA documented as of this encounter Plan of Treatment Upcoming Encounters Date Type Department Care Team (Late st Contact Info) Description 02/11/2025 8:00 AM EST Office Visit [facility] ADULT DENTAL 230 [place] [address] Rebecca Capps documented as of this encounter [...] documented as of this encounter Care Teams Line Patroller Relationship Specialty Start Date End Date Mirtha Lunsford MD 230 [place] [address] PCP - General Family Medicine 03/04/15 PetesVictoria Duran, PharmD [address] [place] [address] Pharmacist Internal Medicine 08/03/22 Acosta Sinha FNP 230 [place] [address] Nurse Practitioner Family Medicine 01/17/23 Flip Wan MD [address] [place] [address] Pulmonary Disease 02/02/24 Dmitri Sequeira MD [address] [place] [address] Nephrology 02/10/24 Stephane Pisano MD [address] 3rd [place] [address] General Surgery 02/10/24 Melvin Claros MD 596 [place] [address] Cardiology 04/16/24 Artur Aguilar MD [address] [place] [address] Endocrinology 05/31/24 Suzette Bond MD [address] [place] [address] Orthopaedic Surgery 10/03/24 Ghassan Houoie Lesson InstructorCampus Recruiting Intern 02/07/24June,Joyce Hoover PA-C Lung Cancer Screening Program Radiology 07/31/24 documented as of this encounter
--- OUTSIDE RECORDS SUMMARY | 2024-12-22 07:12 | XMS_ITS | Encounter Summary ---
Author Organization [employer] Address 75 [facility] 7t [place] [address] Care Team Providers Care Boom Boss Name Role Phone Mirtha Lunsford MD Primary Care Provider + [phone] Victoria Radford PharmD Unavailable [phone] Acosta Sinha GEOLOGICAL SCIENCE TEACHER Unavailable Unavailable Flip Wan MD Unavailable [phone] Dmitri Sequeira MD Unavailable +[phone] Stephane Pisano MD Unavailable [phone] Melvin Claros MD Unavailable [phone] Artur Aguilar MD Unavailable +[phone] Suzette Bond MD Unavailable [phone] Reason for Visit * Reason Comments Med Refill Encounter Details Date Type Department Care Team (Late st Contact Info) Description 04/03/2024 Refill [facility] MEDICINE 230 [place], [place] [phone] Mirtha Lunsford MD 230 [place], [place] [phone] Mild intermittent asthma without complication Social History [...] [facility] ADULT DENTAL 230 [place] [address] Rebecca Capps documented as of this encounter [...] documented as of this encounter Care Teams Boom Boss Relationship Specialty Start Date End Date Mirtha Lunsford MD 230 [place] [address] PCP - General Family Medicine 03/04/15 Victoria Radford, PharmD [address] [place] [address] Pharmacist Internal Medicine 08/03/22 Acosta Sinha FNP [address] [place] [address] Nurse Practitioner Family Medicine 01/17/23 Flip Wan MD 5 [place] [address] Pulmonary Disease 02/02/24 Dmitri Sequeira MD [address] [address] Nephrology 02/10/24 Stephane Pisano MD [address] 3rd [place] [address] General Surgery 02/10/24 Melvin Claros MD 596 [place] [address] Cardiology 04/16/24 Artur Aguilar MD [address] [place] [address] Endocrinology 05/31/24 Suzette Bond MD [address] [place] [address] Orthopaedic Surgery 10/03/24 Ghassan Fletcher Junior Programmer AnalystInspector And Tester 02/07/24June,Joyce Hoover PA-C Lung Cancer Screening Program Radiology 07/31/24 documented as of this encounter
--- OUTSIDE RECORDS SUMMARY | 2024-12-22 07:12 | XMS_ITS | Encounter Summary ---
Author Organization [employer] Address 75 [facility] 7t [place] [address] Care Team Providers Care Piano And Organ Refinisher Name Role Phone Mirtha Lunsford MD Primary Care Provider + [phone] Victoria Radford PharmD Unavailable Acosta Sinha OFFICE MACHINES TEACHER Unavailable Unavailable lFip Wan MD Unavailable [phone] Dmitri Sequeira MD Unavailable +[phone] Stephane Pisano MD Unavailable +[phone] Melvin Claros MD Unavailable [phone] Artur Aguilar MD Unavailable [phone] Suzette Bond MD Unavailable [phone] Encounter Details Date Type Department Care Team (Late st Contact Info) Description 08/24/2023 Abstract [facility] MEDICINE 230 [place], [place] [phone] Mirtha Lunsford MD [address], [place] [phone] Social History Tobacco Use Types Packs/Day Years [...] your housing situation today? I have nava sing 12/06/[address] you li [...] 02/11/2025 8:00 AM EST Office Visit [facility] ADULT DENTAL 230 [place] [address] Rebecca Capps documented as of this encounter [...] documented as of this encounter Care Teams Piano And Organ Refinisher Relationship Specialty Start Date End Date Mirtha Lunsford MD [address] [place] [address] PCP - General Family Medicine 03/04/15 Victoria Radford PharmD [address] [place] [address] Pharmacist Internal Medicine 08/03/22 Acosta Sinha FNP [address] [place] [address] Nurse Practitioner Family Medicine 01/17/23 Flip Wan MD 5 [place] [address] Pulmonary Disease 02/02/24 Dmitri Sequeira MD [address] [place] [phone] Nephrology 02/10/24 Stephane Pisano MD [address] 3rd [place] [address] General Surgery 02/10/24 Melvin Claros MD 596 [place] [address] Cardiology 04/16/24 Artur Aguilar MD [address] [place] [address] Endocrinology 05/31/24 Suzette Bond MD [address] [place] [address] Orthopaedic Surgery 10/03/24 NARAYAN LICEA Raw Finish Mill OperatorCastings Drafter 01/06/23 02/06/24 Ghassan Fletcher Raw Finish Mill OperatorCastings Drafter 02/07/24 Joyce Espino PA-C Lung Cancer Screening Program Radiology 07/31/24 documented as of this encounter
--- OUTSIDE RECORDS SUMMARY | 2024-12-22 07:12 | XMS_ITS | Patient Health Record ---
Author Organization [facility] Address [address] [place] [address] Care Team Providers Care Compliance Representative Dealer Name Role Phone Aleksandr Spangler Jr Reason For Referral No Information Plan Of Treatment No Information
--- OUTSIDE RECORDS SUMMARY | 2024-12-22 07:12 | XMS_ITS | Encounter Summary ---
Author Organization [employer] Address 75 [facility] 7t [place] [address] Care Team Providers Care System Validation Engineer Name Role Phone Mirtha Lunsford MD Primary Care Provider + [phone] Victoria Radford PharmD Unavailable [phone] Acosta Sinha MARKETING AUTOMATION SPECIALIST Unavailable Unavailable Flip Wan MD Unavailable [phone] Dmitri Sequeira MD Unavailable +[phone] Stephane Pisano MD Unavailable [phone] Melvin Claros MD Unavailable [phone] Artur Aguilar MD Unavailable +[phone] Suzette Bond MD Unavailable +[phone] Reason for Visit * Reason Comments Med Refill Encounter Details Date Type Department Care Team (Late st Contact Info) Description 11/13/2022 Refill [facility] [address] [place] [phone] Mirtha Lunsford MD 230 [place], [place] [phone] Essential hypertension (Primary Dx) Social History Tobacco [...] Description 02/11/2025 8:00 AM EST Office Visit [facility] 230 [place] [address] Rbeecca Capps documented as of this encounter Goals [...] documented as of this encounter Care Teams System Validation Engineer Relationship Specialty Start Date End Date Mirtha Lunsford MD 230 [place] [address] PCP - General Family Medicine 03/04/15 Victoria Radford, GypsyD 230 [place] [address] Pharmacist Internal Medicine 08/03/22 Acosta Sinha FNP 230 [place] [address] Nurse Practitioner Family Medicine 01/17/23 Flip Wan MD [address] [place] [address] Pulmonary Disease 02/02/24 Dmitri Sequeira MD 100 [facility] 200 [place] [address] Nephrology 02/10/24 Stephane Pisano MD [address] 3rd [place] [address] General Surgery 02/10/24 Melvin Claros MD 596 [place] [address] Cardiology 04/16/24 Artur Aguilar MD [address] [place] [address] Endocrinology 05/31/24 Suzette Bond MD [address] [place] [address] Orthopaedic Surgery 10/03/24 NARAYAN LICEA Rn BuildingStem Processing Machine Operator 01/06/23 02/06/24 Ghassan [place] Rn BuildingStem Processing Machine Operator 02/07/24 Joyce Espino PA-C Lung Cancer Screening Program Radiology 07/31/24 documented as of this encounter
--- OUTSIDE RECORDS SUMMARY | 2024-12-22 07:12 | XMS_ITS | Encounter Summary ---
Author Organization [employer] Address 75 [facility] 7t [place] [address] Care Team Providers Care Shell Molder Name Role Phone Mirtha Lunsford MD Primary Care Provider + [phone] Victoria Radford PharmD Unavailable +[phone] Acosta Sinha MANAGER STUDENT SERVICES Unavailable Unavailable Flip Wan MD Unavailable [phone] Dmitri Sequeira MD Unavailable [phone] Stephane Pisano MD Unavailable [phone] Melvin Claros MD Unavailable [phone] Artur Aguilar MD Unavailable [phone] Suzette Bond MD Unavailable [phone] Encounter Details Date Type Department Care Team (Latest Contact Info) Description 07/25/2020 Abstract [facility] Dental, Provider, DDS Social [...] Description 02/11/2025 8:00 AM EST Office Visit [facility] 230 [place] [address] Rebecca Capps documented as of this encounter Visit Diagnoses Not on filedocumented in this encounter Care Teams Shell Molder Relationship Specialty Start Date End Date Mirtha Lunsford MD 230 [place] [address] PCP - General Family Medicine 03/04/15 Victoria Radford PharmD 230 [place] [address] Pharmacist Internal Medicine 08/03/22 Acosta Sinha FNP 230 [place] [address] Nurse Practitioner Family Medicine 01/17/23 Flip Wan MD 5 [place] [address] Pulmonary Disease 02/02/24 Dmitri Sequeira MD [address] [phone] Nephrology 02/10/24 Stephane Pisano MD 11 [facility] 3rd [place] [address] General Surgery 02/10/24 Melvin Claros MD 596 [place] [address] Cardiology 04/16/24 Artur Aguilar MD [address] [place] [address] Endocrinology 05/31/24 Suzette Bond MD [address] [place] [address] Orthopaedic Surgery 10/03/24 NARAYAN LICEA Automation Controls EngineerDirector Information 01/06/23 02/06/24 Ghassan [place] Automation Controls EngineerDirector Information 02/07/24 Joyce Espino PA-C Lung Cancer Screening Program Radiology 07/31/24 documented as of this encounter
--- OUTSIDE RECORDS SUMMARY | 2024-12-22 07:12 | XMS_ITS | Encounter Summary ---
Author Organization [employer] Address 75 [facility] 7t [place] [address] Care Team Providers Care Senior Power Scheduler Name Role Phone Mirtha Lunsford MD Primary Care Provider + [phone] Victoria Radford PharmD Unavailable [phone] Acosta Sinha PIECER Unavailable Unavailable Flip Wan MD Unavailable [phone] Dmitri Sequeira MD Unavailable [phone] Stephane Pisano MD Unavailable [phone] Melvin Claros MD Unavailable [phone] Artur Aguilar MD Unavailable [phone] Suzette Bond MD Unavailable [phone] Reason for Visit * Reason Comments Med Refill Encounter Details Date Type Department Care Team (Late st Contact Info) Description 04/12/2024 Refill [facility] 230 [place], [place] [phone] Mirtha Lunsford MD 230 [place], [place] [phone] Moderate persistent asthma without complication Social History [...] Description 02/11/2025 8:00 AM EST Office Visit [facility] 230 [place] [address] Rebecca Capps documented as of this encounter Goals Goal Patient Goal Type Associated Problems Recent Progress Patient-Stated? Author Blood Pressure < 140/90 Blood Pressure 122/74( 025 10:22 AM EDT) No Piers-Gambl e, Victoria, PharmD Reduce tobacco use (cigarettes, smokeless, etc) Tobacco Use No Petes-Chase fu, Victoria, PharmD documented as of this encounter Visit Diagnoses Diagnosis Moderate persistent asthma without complication documented in this encounter Additional Health Concerns Assessment Noted Time PHQ-9 Depression Total Score: 0 06/17/19 24 9:26 AM EDT documented as of this encounter Care Teams Senior Power Scheduler Relationship Specialty Start Date End Date Mirtha Lunsford MD 230 [place] [address] PCP - General Family Medicine 03/04/15 Victoria Radford, PharmD [address] [place] [address] Pharmacist Internal Medicine 08/03/22 Acosta Sinha FNP [address] [place] [address] Nurse Practitioner Family Medicine 01/17/23 Flip Wan MD 5 [place] [address] Pulmonary Disease 02/02/24 Dmitri Sequeira MD [address] [address] Nephrology 02/10/24 Stephane Pisano MD [address] 3rd [place] [address] General Surgery 02/10/24 Melvin Claros MD 596 [place] [address] Cardiology 04/16/24 Artur Aguilar MD [address] [place] [address] Endocrinology 05/31/24 Suzette Bond MD [address] [place] [address] Orthopaedic Surgery 10/03/24 Ghassan [place] Scouring Pads SupervisorAir Brakes Inspector 02/07/24June,Joyce [place] PA-C Lung Cancer Screening Program Radiology 07/31/24 documented as of this encounter
--- OUTSIDE RECORDS SUMMARY | 2024-12-22 07:12 | XMS_ITS | Encounter Summary ---
Author Organization [employer] Address 75 [facility] 7t [place] [address] Care Team Providers Care Lower School Spanish Teacher Name Role Phone Mirtha Lunsford MD Primary Care Provider + [phone] Victoria Radford PharmD Unavailable [phone] Acosta Sinha BRAKE LINING DRILLER Unavailable Unavailable Flip Wan MD Unavailable [phone] Dmitri Sequeira MD Unavailable [phone] Stephane Pisano MD Unavailable [phone] Melvin Claros MD Unavailable [phone] Artur Aguilar MD Unavailable [phone] Suzette Bond MD Unavailable [phone] Reason for Visit * Reason Comments Med Refill Encounter Details Date Type Department Care Team (Late st Contact Info) Description 05/08/2024 Refill [facility] [address] [place] [phone] Mirtha Lunsford MD 230 [place], [place] [phone] Social History Tobacco Use Types Packs/Day Years [...] 02/11/2025 8:00 AM EST Office Visit [facility] 230 [place] [address] Rebecca Capps documented as of this encounter Goals Goal Patient Goal Type Associated Problems Recent Progress Patient-Stated? Author Blood Pressure < 140/90 Blood Pressure 122/74( 025 10:22 AM EDT) No AnaVictoria Frost, PharmD Reduce tobacco use (cigarettes, smokeless, etc) Tobacco Use No Piers-Gambl e, Victoria, PharmD documented as of this encounter Visit Diagnoses Not on filedocumented in this encounter Additional Health Concerns Assessment Noted Time PHQ-9 Depression Total Score: 0 06/17/19 9:26 AM EDT documented as of this encounter Care Teams Lower School Spanish Teacher Relationship Specialty Start Date End Date Mirtha Lunsford MD 230 [place] [address] PCP - General Family Medicine 03/04/15 Victoria Radford, PharmD [address] [place] [address] Pharmacist Internal Medicine 08/03/22 Acosta Sinha FNP [address] [place] [address] Nurse Practitioner Family Medicine 01/17/23 Flip Wan MD 5 [place] [address] Pulmonary Disease 02/02/24 Dmitri Sequeira MD [address] [place] [phone] Nephrology 02/10/24 Stephane Pisano MD [address] 3rd [place] [address] General Surgery 02/10/24 Melvin Claros MD 596 [place] [address] Cardiology 04/16/24 Artur Aguilar MD [address] [place] [address] Endocrinology 05/31/24 Suzette Bond MD [address] [place] [address] Orthopaedic Surgery 10/03/24 Ghassan [place] Adjunct Professor Of LawCamp Manager 02/07/24June,Joyce Hoover PA-C Lung Cancer Screening Program Radiology 07/31/24 documented as of this encounter
--- OUTSIDE RECORDS SUMMARY | 2024-12-22 07:12 | XMS_ITS | Encounter Summary ---
Author Organization [employer] Address 75 [facility] 7t [place] [address] Care Team Providers Care Machine Engineer Name Role Phone Mirhta Lunsford MD Primary Care Provider + [phone] Victoria Radford PharmD Unavailable Acosta Sinha MEDICAL PHYSICS TEACHER Unavailable Unavailable Flip Wan MD Unavailable [phone] Dmitri Sequeira MD Unavailable [phone] Stephane Pisano MD Unavailable Melvin Claros MD Unavailable [phone] Artur Aguilar MD Unavailable [phone] Suzette Bond MD Unavailable [phone] Encounter Details Date Type Department Care Team (Late st Contact Info) Description 09/08/2022 Abstract [facility] 230 [place], [place] [phone] Mirtha Lunsford MD 230 [place], [place] [phone] Social History Tobacco Use Types Packs/Day Years [...] Office Visit [facility]ULT [facility] 230 [place] [address] Rebecca Capps documented as of this encounter [...] documented as of this encounter Care Teams Machine Engineer Relationship Specialty Start Date End Date Mirtha Lunsford MD 230 [place] [address] PCP - General Family Medicine 03/04/15 Victoria Radford, PharmD 230 [place] [address] Pharmacist Internal Medicine 08/03/22 Acosta Sinha FNP 230 [place] [address] Nurse Practitioner Family Medicine 01/17/23 Flip Wan MD 5 [place] [address] Pulmonary Disease 02/02/24 Dmitri Sequeira MD [address] [address] Nephrology 02/10/24 Stephane Pisano MD 11 [facility] 3rd [place] [address] General Surgery 02/10/24 Melvin Claros MD 596 [place] [address] Cardiology 04/16/24 Artur Aguilar MD [address] [place] [address] Endocrinology 05/31/24 Suzette Bond MD [address] [place] [address] Orthopaedic Surgery 10/03/24 NARAYAN LICEA Salesforce Business AnalystLaborer Orchard 01/06/23 02/06/24 Ghassan [place] Salesforce Business AnalystLaborer Orchard 02/07/24June,Joyce Hoover PA-C Lung Cancer Screening Program Radiology 07/31/24 documented as of this encounter
--- OUTSIDE RECORDS SUMMARY | 2024-12-22 07:12 | XMS_ITS | Encounter Summary ---
Author Organization [employer] Address 75 [facility] 7t [place] [address] Care Team Providers Care Ornamental Ironworker Helper Name Role Phone Mirtha Lunsford MD Primary Care Provider + [phone] Victoria Radford PharmD Unavailable [phone] Acosta Sinha DIRECTOR HOSPICE OPERATIONS Unavailable Unavailable Flip Wan MD Unavailable [phone] Dmitri Sequeira MD Unavailable [phone] Stephane Pisano MD Unavailable Melvin Claros MD Unavailable [phone] Artur Aguilar MD Unavailable [phone] Suzette Bond MD Unavailable [phone] Reason for Visit * Reason Comments Med Refill Encounter Details Date Type Department Care Team (Late st Contact Info) Description 09/06/2023 Refill [facility] 230 [place], [place] [phone] Mirtha Lunsford MD 230 [place] [address] Social History Tobacco Use Types Packs/Day Years [...] Description 02/11/2025 8:00 AM EST Office Visit [facility] 230 [place] [address] Rebecca Capps documented as of this encounter [...] documented as of this encounter Care Teams Ornamental Ironworker Helper Relationship Specialty Start Date End Date Mirtha Lunsford MD 230 [place] [address] PCP - General Family Medicine 03/04/15 Victoria Radford PharmD 230 [place] [address] Pharmacist Internal Medicine 08/03/22 Acosta Sinha FNP 230 [place] [address] Nurse Practitioner Family Medicine 01/17/23 Flip Wan MD 5 [place] [address] Pulmonary Disease 02/02/24 Dmitri Sequeira MD 100 [facility] 200 [place] [address] Nephrology 02/10/24 Stephane Pisano MD [address] 3rd [place] [address] General Surgery 02/10/24 Melvin Claros MD 596 [place] [address] Cardiology 04/16/24 Artur Aguilar MD [address] [place] [address] Endocrinology 05/31/24 Suzette Bond MD [address] [place] [address] Orthopaedic Surgery 10/03/24 NARAYAN LICEA Clerical WarehousemanHygiene Coordinator 01/06/23 02/06/24 Ghassan [place] Clerical WarehousemanHygiene Coordinator 02/07/24 Joyce Espino PA-C Lung Cancer Screening Program Radiology 07/31/24 documented as of this encounter
--- OUTSIDE RECORDS SUMMARY | 2024-12-22 07:12 | XMS_ITS | Encounter Summary ---
Author Organization [employer] Address 75 [facility] 7t [place] [address] Care Team Providers Care Pneumatic Tool Operator Name Role Phone Mirtha Lunsford MD Primary Care Provider + [phone] Victoria Radford PharmD Unavailable [phone] Acosta Sinha TAFE REGISTRAR Unavailable Unavailable Flip Wan MD Unavailable [phone] Dmitri Sequeira MD Unavailable [phone] Stephane Pisano MD Unavailable [phone] Melvin Claros MD Unavailable [phone] Artur Aguilar MD Unavailable [phone] Suzette Bond MD Unavailable [phone] Reason for Visit * Reason Comments Med Refill Encounter Details Date Type Department Care Team (Late st Contact Info) Description 01/04/2024 Refill [facility] 230 [place], [place] [phone] Shayla Ferrer DO 230 [place] [address] Social History Tobacco Use Types Packs/Day Years [...] t he electric, gas, oil or water [employer] threatened to shut off services in your [...] Description 02/11/2025 8:00 AM EST Office Visit [facility] 230 [place] [address] Rebecca Capps documented as of this encounter Goals Goal Patient Goal Type Associated Problems Recent Progress Patient-Stated? Author Blood Pressure < 140/90 Blood Pressure 122/74( 025 10:22 AM EDT) No Marlene Mayosa, PharmD Reduce tobacco use (cigarettes, smokeless, etc) Tobacco Use No Piers-Gambl e, Victoria, PharmD documented as of this encounter Visit Diagnoses Not on filedocumented in this encounter Additional Health Concerns Assessment Noted Time PHQ-9 Depression Total Score: 0 06/17/19 24 9:26 AM EDT documented as of this encounter Care Teams Pneumatic Tool Operator Relationship Specialty Start Date End Date Mirtha Lunsford MD 230 [place] [address] PCP - General Family Medicine 03/04/15 Victoria Radford, PharmD [address] [place] [address] Pharmacist Internal Medicine 08/03/22 Acosta Sinha FNP [address] [place] [address] Nurse Practitioner Family Medicine 01/17/23 Flip Wan MD 5 [place] [address] Pulmonary Disease 02/02/24 Dmitri Sequeira MD 100 [facility] 200 [place] [address] Nephrology 02/10/24 Stephane Pisano MD [address] 3rd [place] [address] General Surgery 02/10/24 Melvin Claros MD 596 [place] [address] Cardiology 04/16/24 Artur Aguilar MD [address] [place] [address] Endocrinology 05/31/24 Suzette Bond MD [address] [place] [address] Orthopaedic Surgery 10/03/24 NARAYAN LICEA Oyster TongerThermal Molder 01/06/23 02/06/24 Ghassan [place] Oyster TongerThermal Molder 02/07/24June,Joyce Hoover PA-C Lung Cancer Screening Program Radiology 07/31/24 documented as of this encounter
[2024-12-22 08:22] LABS: Syphilis Screen Nonreactive (Nonreactive)
[2024-12-22 08:23] LABS: Prostate Specific Antigen 1.84 ng/mL (<0.05-4.0)
[2024-12-22 08:24] LABS: HIV Num 1 0.07 S/CO (0.00-0.99); ~HepC Num1 0.06 S/CO (0.00-0.79); ~Hepatitis C Antibody Nonreactive (Nonreactive)
[2024-12-22 12:06] LABS: CT PCR Urine NOT DETECTED (Not Detect.); NG PCR Urine NOT DETECTED (Not Detect.)
== END 2024-12-22 07:08 | disposition home or self-care (01) ==
LOC: HO.LAB 07:07
PROVIDERS: PCP Family Medicine; Visit Provider Family Medicine
DX: Z11.4 Encounter for screening for human immunodeficiency virus [HIV] (principal); Z11.59 Encounter for screening for other viral diseases; Z20.2 Contact with and (suspected) exposure to infections with a predominantly sexual mode of transmission; Z12.5 Encounter for screening for malignant neoplasm of prostate
CPT/HCPCS: 84153; 86780; 86803; 87389; 87491; 87591

== ENCOUNTER 2025-01-07 10:54 | Emergency (ER) | payer MEDICAID, SELFPAY ==
[2025-01-07 11:33] VITALS: BP 152/71; PULSE 80; RESP 16; TEMP 36.3; O2SAT 97; BMI 35.5
--- NOTE | 2025-01-07 11:51 | ED.GENADULT ---
HPI - General Adult General Chief complaint: Abdominal Pain Stated complaint: Stomach Pain Time Seen by Provider: 01/07/25 11:46 Source: patient Mode of arrival: ambulatory Limitations: no limitations History of Present Illness ED Provider: Andrei Cortez HPI narrative: 54 yold male presents to the ED for abdominal pain bloating and right leg swelling. Patient sent by urgent care for evaluation. Related Data Home Medications ?Medication ?Instructions ?Recorded ?Confirmed cyclobenzaprine 10 mg tablet 10 mg PO BEDTIME PRN muscle pain 11/28/22 07/05/24 ipratropium 20 mcg-albuterol 100 1 puff inhalation BID Shortness Of 11/28/22 07/05/24 mcg/actuation mist for inhalation Breath Or Wheezing (Combivent Respimat) escitalopram oxalate 5 mg tablet 5 mg PO DAILY 12/30/22 07/05/24 (Lexapro) lisinopril 20 mg tablet 20 mg PO QAM 12/30/22 07/05/24 loratadine 10 mg tablet 10 mg PO DAILY 05/11/23 07/05/24 atorvastatin 40 mg tablet 40 mg PO QAM 06/20/23 07/05/24 carvedilol 3.125 mg tablet 3.125 mg PO BID 06/20/23 07/05/24 escitalopram oxalate 10 mg tablet 10 mg PO DAILY 06/20/23 07/05/24 hydroxyzine pamoate 25 mg capsule 25 mg PO DAILY PRN anxiety 06/20/23 07/05/24 hydroxyzine pamoate 50 mg capsule 50 mg PO DAILY PRN anxiety 06/20/23 07/05/24 metoprolol succinate 25 mg 12.5 mg PO DAILY 06/20/23 07/05/24 tablet,extended release 24 hr nicotine 7 mg/24 hr daily 1 patch transdermal Q24H 06/20/23 07/05/24 transdermal patch pregabalin 150 mg capsule (Lyrica) 150 mg PO DAILY 06/20/23 07/05/24 terbinafine HCl 1 % topical cream 1 appl topical BID 06/20/23 07/05/24 Previous Rx's ?Medication ?Instructions ?Recorded omalizumab 150 mg subcutaneous 225 mg subcut Q2W 28 days #3 ea 12/11/20 solution (Xolair) acetaminophen 325 mg tablet 650 mg (2 x 325 mg) PO Q6H PRN 08/19/22 (Tylenol) pain #30 tabs amlodipine 5 mg tablet 5 mg PO DAILY #30 tabs 12/03/22 albuterol sulfate 90 mcg/actuation 2 inh inhalation Q6H PRN shortness 05/06/23 breath activated powder inhaler of breath or wheezing #1 ea [id number]-[id number] 2.5 20 ml PO Q4H PRN cough #118 mL 10/18/23 mg-5 mg-50 mg/5 mL oral liquid (Robitussin Cough and Cold CF) albuterol sulfate 2.5 mg/3 mL 2.5 mg (3 mL) inhalation Q4-6H PRN 01/21/24 (0.083 %) solution for nebulization shortness of breath or wheezing #75 mL benzonatate 100 mg capsule 100 mg PO TID PRN cough #20 caps 01/21/24 fluticasone propionate 50 1 spray intranasal BID #48 mL 05/04/24 mcg/actuation nasal spray,suspension dexamethasone 1 mg tablet 1 mg PO ONCE #1 tab 05/31/24 sodium,potassium,mag sulfates 17.5 See Rx Instructions PO .COMPLEX 07/05/24 gram-3.13 gram-1.6 gram oral soln #354 mL (Suprep Bowel Prep Kit) amoxicillin 875 mg-potassium 1 tab PO BID 7 days #14 tabs 10/01/24 clavulanate 125 mg tablet fluticasone propionate 115 2 puff PO Q12H #12 grams 12/27/24 mcg-salmeterol 21 mcg/actuation HFA inhaler (Advair HFA) montelukast 10 mg tablet 10 mg PO QPM #90 tabs 12/27/24 Allergies Allergy/AdvReac Type Severity Reaction Status Date / Time Iodinated Contrast Media Allergy Severe Unknown Verified 01/07/25 11:35 levofloxacin Allergy Mild Rash Verified 01/07/25 11:35 ibuprofen (From MOTRIN) Allergy Unknown KIDNEY Verified 01/07/25 11:35 ISSUES mushroom AdvReac Mild VOMITING Verified 01/07/25 11:35 amlodipine AdvReac Unknown Swelling Verified 01/07/25 11:35 Review of Systems Review of Systems: abdominal bloating and right leg swelling Yes all other systems are reviewed and are negative [facility] Past Medical History Medical History (Updated 01/07/25 @ 12:17 by RAMANDEEP Frankel) History of adenomatous polyp of colon Nicotine dependence, cigarettes, uncomplicated History of rectal polyps Asthma Asthma with exacerbation Hypertension 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 Arthritis Surgical History (Updated 10/01/24 @ 08:57 by STEPHANY Luna) History of hand surgery History of rectal sphincterotomy History of hydrocelectomy History of colonoscopy History of left nephrectomy H/O neck surgery Previous back surgery Family History Family History Mother Hypertension Asthma Father Medical history unknown Social History Social History (Updated 07/27/24 @ 09:54 by Joyce Espino PA-C) Household Members: None Housing: Apartment Do you presently have visiting nurse or other home services: No Alcohol intake: current Alcohol intake frequency: holidays/special occasions only Alcohol type: beer Patient Tobacco Use Status: Current everyday Tobacco user Tobacco use type: Cigarette Years Smoked: (onset 18, 1ppd x 36yrs, 30+PYH) e-Cigarette/Vaping Use: Former Use Second Hand Smoke Exposure: No Advance Directives: No Advance Directives Information Provided: No service: No Current occupational status: unemployed 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 Physical Exam ED Vital Signs: Vital Signs - 24 hr 01/07/25 11:33 Temperature 97.4 F Pulse Rate 80 Respiratory Rate 16 Blood Pressure 152/71 H Pulse Oximetry 97 Oxygen Delivery Method Room Air BMI result Body Mass Index 35.5 Const General: cooperative, healthy appearing, comfortable, no acute distress, well developed, alert, awake and Physically active Orientation/consciousness: patient oriented x3 HENMT Head: Yes normal to inspection, Yes No palpable skull fracture present, Yes normocephalic and Yes atraumatic Eyes General: appearance normal, both eyes and all related structures Neck Neck: Yes normal visual inspection, Yes full ROM, Yes no lymphadenopathy, Yes no meningeal signs, Yes trachea midline, Yes supple, No anterior neck swelling and No tender Chest Chest palpation & inspection: normal inspection of the chest and normal palpation of entire chest wall Resp Effort & Inspection: normal respiratory effort and able to speak in complete sentences Auscultation: clear to auscultation bilaterally Cardio Jugular venous distension: no JVD Heart sounds: S1 normal heart sound present and S2 normal heart sound present GI Other: positive for abdominal bloating Inspection: Yes normal to inspection Palpation (GI): Soft to palpation, not firm, nontender, no guarding and not rigid General: Yes no CVA tenderness Back/Spine/Pelvis Back: no CVA tenderness and No back tenderness Skin General skin exam: no rashes or lesions noted, elasticity normal and turgor normal Neuro General: patient oriented x3, gait normal, tone normal, moves all extremities, Normal light touch and pain sensation, no meningeal signs, no focal motor deficits, CN's II-XI intact bilaterally, normal sensation to monofilament and decrease sensation to monofilament Extrem Other: positive for right leg swelling General: Yes normal to inspection, Yes full ROM and Yes capillary refill normal Psych Appearance: grossly normal, well kempt and not disheveled Medical Decision Making Medical Decision Making MDM Narrative: 54-year-old male sent from [facility] for abdominal swelling and right leg swelling. Patient states 9 lb weight gain. Patient informed to necessity for evaluation such as EKG, blood work, cat scan imaging possible ultrasound of lower extremities. Patient refused and would like to leave and come back in the morning. Patient explained risks including without evaluation. Patient has left before signing of AMA paper Differential Diagnosis Differential Diagnoses: The differential diagnosis associated with the presentation includes (ascites, canacer, DVT) Admission/Observation Consideration of admission/observation: Escalation of care including admission/observation considered Independent Historian Clinical information obtained from an independent historian. History obtained from or confirmed by: Other (patient) Discharge Plan Discharge Clinical Impression: Leg swelling, Abdominal swelling Patient Disposition: Left Against Medical Advice Prescriptions: No Action Xolair 150 mg recon soln 225 mg subcut Q2W 28 Days Qty: 3 12RF Rx Instructions: requires multiple injection sites; do not exceed 150 mg per injection site; NEXT DOSE: 11/30/22 fluticasone propionate 50 mcg/actuation spray,suspension 1 spray intranasal BID Qty: 48 0RF montelukast 10 mg tablet 10 mg PO QPM Qty: 90 0RF fluticasone propion-salmeterol [Advair HFA] 115-21 mcg/actuation HFA aerosol inhaler 2 puff PO Q12H Qty: 12 4RF loratadine 10 mg tablet 10 mg PO DAILY acetaminophen [Tylenol] 325 mg tablet 650 mg PO Q6H PRN (Reason: pain) Qty: 30 0RF albuterol sulfate 90 mcg/actuation aerosol powdr breath activated 2 inh inhalation Q6H PRN (Reason: shortness of breath or wheezing) Qty: 1 0RF cyclobenzaprine 10 mg tablet 10 mg PO BEDTIME PRN (Reason: muscle pain) Combivent Respimat 20-100 mcg/actuation mist 1 puff inhalation BID amlodipine 5 mg Tablet 5 mg PO DAILY Qty: 30 0RF Protocol: Hold for SBP< HOLD for SBP < : 90 Robitussin Cough and Cold CF 2.5-5-50 mg/5 mL liquid 20 ml PO Q4H PRN (Reason: cough) Qty: 118 0RF benzonatate 100 mg capsule 100 mg PO TID PRN (Reason: cough) Qty: 20 0RF albuterol sulfate 2.5 mg /3 mL (0.083 %) solution for nebulization 2.5 mg inhalation Q4-6H PRN (Reason: shortness of breath or wheezing) Qty: 75 0RF lisinopril 20 mg tablet 20 mg PO QAM escitalopram oxalate [Lexapro] 5 mg tablet 5 mg PO DAILY pregabalin [Lyrica] 150 mg capsule 150 mg PO DAILY atorvastatin 40 mg tablet 40 mg PO QAM escitalopram oxalate 10 mg tablet 10 mg PO DAILY carvedilol 3.125 mg tablet 3.125 mg PO BID hydroxyzine pamoate 50 mg capsule 50 mg PO DAILY PRN (Reason: anxiety) hydroxyzine pamoate 25 mg capsule 25 mg PO DAILY PRN (Reason: anxiety) metoprolol succinate 25 mg tablet extended release 24 hr 12.5 mg PO DAILY nicotine 7 mg/24 hr patch 24 hour 1 patch transdermal Q24H terbinafine HCl 1 % cream 1 appl topical BID dexamethasone 1 mg tablet 1 mg PO ONCE Qty: 1 0RF sodium,potassium,mag sulfates [Suprep Bowel Prep Kit] 17.5-3.13-1.6 gram recon soln See Rx Instructions PO .COMPLEX Qty: 354 0RF Rx Instructions: DILUTE; drink full amount early evening before AND next morning at least 2 hr before procedure; follow w 960 mL water PO amoxicillin-pot clavulanate 875-125 mg tablet 1 tab PO BID 7 Days Qty: 14 0RF Stand Alone Forms: Against Medical Advice Discharge Date/Time: 01/07/25 14:02 Print Language: Hungarian
== END 2025-01-07 14:02 | disposition left against medical advice (07) ==
LOC: HO.ED 14:03
PROVIDERS: Emergency Provider Emergency Medicine
DX: R60.0 Localized edema (principal); R19.00 Intra-abdominal and pelvic swelling, mass and lump, unspecified site; R10.9 Unspecified abdominal pain; F17.200 Nicotine dependence, unspecified, uncomplicated; Z71.6 Tobacco abuse counseling; Z53.29 Procedure and treatment not carried out because of patient's decision for other reasons
CPT/HCPCS: 99281; 99282

== ENCOUNTER 2025-01-08 04:05 | Emergency (ER) | payer MEDICAID, SELFPAY ==
[2025-01-08 04:10] VITALS: BP 156/91; PULSE 111; RESP 20; TEMP 36.2; O2SAT 95; BMI 35.5
[2025-01-08 04:30] LABS: Hematocrit 44.1 % (42.0-52.0); Hemoglobin 14.6 g/dl (14.0-18.0); Imm Gran Abs Auto 0.21 X10*3/uL (0.00-0.03); Imm Gran Pct Auto 1.5 % (0.0-0.4); Lymphocytes Absolute Auto 1.3 X10*3/uL (1.2-4.9); MANUAL DIFF FLAG NO; Mean Corpuscular HGB Conc 33.1 g/dl (31.0-36.0); Mean Corpuscular Hemoglobin 30.7 pg (27.0-33.0); Mean Corpuscular Volume 92.6 fL (80.0-98.0); NRBC Abs Auto 0.000 X10*3/uL (0.0-0.012); NRBC Pct Auto 0.0 /100WBC (0.0-0.2); Platelet Count 259 X10*3/uL (160-400); Red Blood Count 4.76 X10*6/uL (4.60-5.80); White Blood Count 14.3 X10*3/uL (4.8-10.8)
[2025-01-08 04:42] LABS: Alanine Aminotransferase 25 U/L (0-40); Albumin Level 4.3 g/dL (3.5-5.0); Alkaline Phosphatase 122 U/L (39-117); Anion Gap 13 (12-20); Aspartate Amino Transferase 19 U/L (5-37); Blood Urea Nitrogen 20 mg/dL (9-16); Calcium 9.1 mg/dL (8.4-10.2); Carbon Dioxide 19 mmol/L (22-29); Chloride 109 mmol/L (96-108); Creatinine Clr Calc Pharmacy 87.7; Estimated Glomerular Filt Rate > 60; Lipase 30 U/L (8-78); Potassium 4.2 mmol/L (3.3-5.1); Sodium 137 mmol/L (135-145); Total Protein 7.4 g/dL (6.5-8.0)
[2025-01-08 04:51] VITALS: BP 143/94; PULSE 88; RESP 16; TEMP 36.7; O2SAT 96
--- NOTE | 2025-01-08 06:00 | ED.GENADULT ---
HPI - General Adult General Chief complaint: General Medical Stated complaint: swollen stomach Time Seen by Provider: 01/08/25 05:57 Source: patient and old records reviewed Mode of arrival: ambulatory Limitations: no limitations History of Present Illness ED Provider: LICHA ROWE narrative: 54 yo male with pMH of carpal tunnel, arthritis, gastritis, anemia, HTN who presents with c/o 1 week of abdominal bloating after he eats. He denies any nausea, vomiting, diarrhea. He denies any fever. He states he went to [facility] yesterday and they ordered an outpatient H pylori test. He did not understand that it was outpatient. He states his doctor should have explained to him the testing better. He does not report any GI bleed symptoms. When I interviewed him he was asking about the wait time as he needs to get his son to school at 07:30. Related Data Home Medications ?Medication ?Instructions ?Recorded ?Confirmed cyclobenzaprine 10 mg tablet 10 mg PO BEDTIME PRN muscle pain 11/28/22 07/05/24 ipratropium 20 mcg-albuterol 100 1 puff inhalation BID Shortness Of 11/28/22 07/05/24 mcg/actuation mist for inhalation Breath Or Wheezing (Combivent Respimat) escitalopram oxalate 5 mg tablet 5 mg PO DAILY 12/30/22 07/05/24 (Lexapro) lisinopril 20 mg tablet 20 mg PO QAM 12/30/22 07/05/24 loratadine 10 mg tablet 10 mg PO DAILY 05/11/23 07/05/24 atorvastatin 40 mg tablet 40 mg PO QAM 06/20/23 07/05/24 carvedilol 3.125 mg tablet 3.125 mg PO BID 06/20/23 07/05/24 escitalopram oxalate 10 mg tablet 10 mg PO DAILY 06/20/23 07/05/24 hydroxyzine pamoate 25 mg capsule 25 mg PO DAILY PRN anxiety 06/20/23 07/05/24 hydroxyzine pamoate 50 mg capsule 50 mg PO DAILY PRN anxiety 06/20/23 07/05/24 metoprolol succinate 25 mg 12.5 mg PO DAILY 06/20/23 07/05/24 tablet,extended release 24 hr nicotine 7 mg/24 hr daily 1 patch transdermal Q24H 06/20/23 07/05/24 transdermal patch pregabalin 150 mg capsule (Lyrica) 150 mg PO DAILY 06/20/23 07/05/24 terbinafine HCl 1 % topical cream 1 appl topical BID 06/20/23 07/05/24 Previous Rx's ?Medication ?Instructions ?Recorded omalizumab 150 mg subcutaneous 225 mg subcut Q2W 28 days #3 ea 12/11/20 solution (Xolair) acetaminophen 325 mg tablet 650 mg (2 x 325 mg) PO Q6H PRN 08/19/22 (Tylenol) pain #30 tabs amlodipine 5 mg tablet 5 mg PO DAILY #30 tabs 12/03/22 albuterol sulfate 90 mcg/actuation 2 inh inhalation Q6H PRN shortness 05/06/23 breath activated powder inhaler of breath or wheezing #1 ea [id number]-PC-[id number] 2.5 20 ml PO Q4H PRN cough #118 mL 10/18/23 mg-5 mg-50 mg/5 mL oral liquid (Robitussin Cough and Cold CF) albuterol sulfate 2.5 mg/3 mL 2.5 mg (3 mL) inhalation Q4-6H PRN 01/21/24 (0.083 %) solution for nebulization shortness of breath or wheezing #75 mL benzonatate 100 mg capsule 100 mg PO TID PRN cough #20 caps 01/21/24 fluticasone propionate 50 1 spray intranasal BID #48 mL 05/04/24 mcg/actuation nasal spray,suspension dexamethasone 1 mg tablet 1 mg PO ONCE #1 tab 05/31/24 sodium,potassium,mag sulfates 17.5 See Rx Instructions PO .COMPLEX 07/05/24 gram-3.13 gram-1.6 gram oral soln #354 mL (Suprep Bowel Prep Kit) amoxicillin 875 mg-potassium 1 tab PO BID 7 days #14 tabs 10/01/24 clavulanate 125 mg tablet fluticasone propionate 115 2 puff PO Q12H #12 grams 12/27/24 mcg-salmeterol 21 mcg/actuation HFA inhaler (Advair HFA) montelukast 10 mg tablet 10 mg PO QPM #90 tabs 12/27/24 Allergies Allergy/AdvReac Type Severity Reaction Status Date / Time Iodinated Contrast Media Allergy Severe Unknown Verified 01/08/25 04:12 levofloxacin Allergy Mild Rash Verified 01/08/25 04:12 ibuprofen (From MOTRIN) Allergy Unknown KIDNEY Verified 01/08/25 04:12 ISSUES mushroom AdvReac Mild VOMITING Verified 01/08/25 04:12 amlodipine AdvReac Unknown Swelling Verified 01/08/25 04:12 Review of Systems Review of Systems: Constitutional : No Weight loss, No Fever, No Chills Cardiovascular : No Chest Pain, No SOB, NoEdema Respiratory : No Cough, No Sputum, No Wheezing Gastrointestinal : Positive Nausea, no Vomiting, no Diarrhea, positive abdominal Pain, No Hematochezia, No Melena Genitourinary : No Dysuria, No Urinary Frequency, No Hematuria, No Urgency Musculoskeletal : No joint pain, No Myalgias, No Joint Swelling Skin : No Skin Lesions, No rash Neuro : No Weakness, No Numbness, No Dizziness, No Headache Psych : No Anxiety/Panic, No Depression All other systems reviewed and are negative. Yes all other systems are reviewed and are negative [facility] Past Medical History Attestation statement: The following information was validated with the patient. 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 Arthritis Surgical History History of hand surgery History of rectal sphincterotomy History of hydrocelectomy History of colonoscopy History of left nephrectomy H/O neck surgery Previous back surgery Family History Family History Mother Hypertension Asthma Father Medical history unknown Social History Social History Household Members: None Housing: Apartment Do you presently have visiting nurse or other home services: No Alcohol intake: current Alcohol intake frequency: holidays/special occasions only Alcohol type: beer Patient Tobacco Use Status: Current everyday Tobacco user Tobacco use type: Cigarette Years Smoked: (onset 18, 1ppd x 36yrs, 30+PYH) Smoked in Last 30 Days: Yes e-Cigarette/Vaping Use: Former Use Second Hand Smoke Exposure: No Use of substances other than those prescribed or required for medical reasons: No Advance Directives: No Advance Directives Information Provided: Yes Do you have a plan to hurt others: No Plan service: No Current occupational status: unemployed 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 Oriented X3. No acute distress. Eyes: Pupils equal, round and reactive to light. ENT: Pharynx normal. Neck: Normal inspection. Neck supple. CVS: Normal heart rate and rhythm. Pulses normal. Respiratory: No respiratory distress. Breath sounds normal. Abdomen: Soft and nontender. Normal bowel sounds Skin: Skin warm and dry. Normal skin color. Normal skin turgor. Extremities: No lower extremity edema. Neuro: Oriented X 3. No motor deficit. No sensory deficit. C Medical Decision Making Medical Decision Making [facility] Narrative: 54 yo male with pMH of carpal tunnel, arthritis, gastritis, anemia, HTN who presents with c/o 1 week of abdominal distention every time he eats. He has no GI bleed symptoms. He has no nausea, vomiting, diarrhea. He does have planned outpatient testing with his primary care doctor. He has relatively benign abdominal exam with mild distention but otherwise no tenderness to palpation. At this time I offered x-ray to look for stool burden, ultrasound of gallbladder as well. He declines further workup in our emergency department due to childcare issues. Differential Diagnosis Differential Diagnoses: The differential diagnosis associated with the presentation includes Mass, gastritis, biliary colic, pancreatitis, peptic ulcer disease Admission/Observation Consideration of admission/observation: Escalation of care including admission/observation considered He refuses further workup and wants to be discharged, shared decision-making patient is stable Lab Data [facility] Lab Attestation statement: I reviewed the patient's lab results. 01/08/25 04:22 01/08/25 04:22 Labs: Lab Results 01/08/25 Range/Units 04:22 WBC 14.3 H (4.8-10.8) X10*3/uL RBC 4.76 (4.60-5.80) X10*6/uL Hgb 14.6 (14.0-18.0) g/dl Hct 44.1 (42.0-52.0) % MCV 92.6 (80.0-98.0) fL MCH 30.7 (27.0-33.0) pg MCHC 33.1 (31.0-36.0) g/dl RDW 12.7 (11.0-16.0) % Plt Count 259 (160-400) X10*3/uL MPV 11.0 (9.4-12.4) fL Immature Gran % (Auto) 1.5 H (0.0-0.4) % Neut % (Auto) 79.1 H (45-73) % Lymph % (Auto) 9.2 L (20-40) % Newberry % (Auto) 9.7 (2-11) % Eos % (Auto) 0.1 (0-4) % Baso % (Auto) 0.4 (0-2) % Lymph # (Auto) 1.3 (1.2-4.9) X10*3/uL Newberry # (Auto) 1.4 H (0.1-1.2) X10*3/uL Eos # (Auto) 0.0 (0.0-0.4) X10*3/uL Baso # (Auto) 0.1 (0.0-0.2) X10*3/uL Abs Immat Gran (auto) 0.21 H (0.00-0.03) X10*3/uL Absolute Neuts (auto) 11.3 H (2.0-8.3) x10*3/uL Absolute Nucleated RBC 0.000 (0.0-0.012) X10*3/uL Nucleated RBC % (auto) 0.0 (0.0-0.2) /100WBC Sodium 137 (135-145) mmol/L Potassium 4.2 (3.3-5.1) mmol/L Chloride 109 H (96-108) mmol/L Carbon Dioxide 19 L (22-29) mmol/L Anion Gap 13 (12-20) BUN 20 H (9-16) mg/dL Creatinine 1.04 (0.5-1.4) mg/dL Estim Creat Clear Calc 87.7 Estimated GFR > 60 Random Glucose 178 H (60-115) mg/dL Calcium 9.1 (8.4-10.2) mg/dL Total Bilirubin 0.3 (0.0-1.0) mg/dL AST 19 (5-37) U/L ALT 25 (0-40) U/L Alkaline Phosphatase 122 H (39-117) U/L Total Protein 7.4 (6.5-8.0) g/dL Albumin 4.3 (3.5-5.0) g/dL Lipase 30 (8-78) U/L External Record Review External record reviewed: Outpatient record, Prior outpatient labs and Prior outpatient radiology Discharge Plan Discharge Clinical Impression: Abdominal pain Qualifiers: Abdominal location: unspecified location Qualified Code(s): R10.9 - Unspecified abdominal pain Patient Disposition: Home, Self-Care Instructions: Abdominal Pain (ED) Additional Instructions: Your labs appeared at baseline You were offered imaging of your abdomen while in the department today including ultrasound and x-ray You did declined these services You can return at any time Please follow up with the lab for your outpatient study as plan with your primary care doctor Return for any worsening pain, fever, inability to tolerate drinking or eating, or any other concerns Prescriptions: No Action Xolair 150 mg recon soln 225 mg subcut Q2W 28 Days Qty: 3 12RF Rx Instructions: requires multiple injection sites; do not exceed 150 mg per injection site; NEXT DOSE: 11/30/22 fluticasone propionate 50 mcg/actuation spray,suspension 1 spray intranasal BID Qty: 48 0RF montelukast 10 mg tablet 10 mg PO QPM Qty: 90 0RF fluticasone propion-salmeterol [Advair HFA] 115-21 mcg/actuation HFA aerosol inhaler 2 puff PO Q12H Qty: 12 4RF loratadine 10 mg tablet 10 mg PO DAILY acetaminophen [Tylenol] 325 mg tablet 650 mg PO Q6H PRN (Reason: pain) Qty: 30 0RF albuterol sulfate 90 mcg/actuation aerosol powdr breath activated 2 inh inhalation Q6H PRN (Reason: shortness of breath or wheezing) Qty: 1 0RF cyclobenzaprine 10 mg tablet 10 mg PO BEDTIME PRN (Reason: muscle pain) Combivent Respimat 20-100 mcg/actuation mist 1 puff inhalation BID amlodipine 5 mg Tablet 5 mg PO DAILY Qty: 30 0RF Protocol: Hold for SBP< HOLD for SBP < : 90 Robitussin Cough and Cold CF 2.5-5-50 mg/5 mL liquid 20 ml PO Q4H PRN (Reason: cough) Qty: 118 0RF benzonatate 100 mg capsule 100 mg PO TID PRN (Reason: cough) Qty: 20 0RF albuterol sulfate 2.5 mg /3 mL (0.083 %) solution for nebulization 2.5 mg inhalation Q4-6H PRN (Reason: shortness of breath or wheezing) Qty: 75 0RF lisinopril 20 mg tablet 20 mg PO QAM escitalopram oxalate [Lexapro] 5 mg tablet 5 mg PO DAILY pregabalin [Lyrica] 150 mg capsule 150 mg PO DAILY atorvastatin 40 mg tablet 40 mg PO QAM escitalopram oxalate 10 mg tablet 10 mg PO DAILY carvedilol 3.125 mg tablet 3.125 mg PO BID hydroxyzine pamoate 50 mg capsule 50 mg PO DAILY PRN (Reason: anxiety) hydroxyzine pamoate 25 mg capsule 25 mg PO DAILY PRN (Reason: anxiety) metoprolol succinate 25 mg tablet extended release 24 hr 12.5 mg PO DAILY nicotine 7 mg/24 hr patch 24 hour 1 patch transdermal Q24H terbinafine HCl 1 % cream 1 appl topical BID dexamethasone 1 mg tablet 1 mg PO ONCE Qty: 1 0RF sodium,potassium,mag sulfates [Suprep Bowel Prep Kit] 17.5-3.13-1.6 gram recon soln See Rx Instructions PO .COMPLEX Qty: 354 0RF Rx Instructions: DILUTE; drink full amount early evening before AND next morning at least 2 hr before procedure; follow w 960 mL water PO amoxicillin-pot clavulanate 875-125 mg tablet 1 tab PO BID 7 Days Qty: 14 0RF Print Language: Azerbaijani
[2025-01-08 06:28] LABS: Appearance Urine Clear; Glucose Urine UA 500 mg/dL (Negative); PH 6.0 (5.0-9.0); Specific Gravity - Urine 1.025 (1.005-1.025); UMIC TRIGGER UACC YES
[2025-01-08 06:35] VITALS: BP 143/94; PULSE 88; RESP 16; TEMP 36.7; O2SAT 96
== END 2025-01-08 06:35 | disposition home or self-care (01) ==
PROVIDERS: Emergency Provider Emergency Medicine
DX: R10.9 Unspecified abdominal pain (principal); I10 Essential (primary) hypertension; Z88.1 Allergy status to other antibiotic agents; Z88.6 Allergy status to analgesic agent; Z91.041 Radiographic dye allergy status
CPT/HCPCS: 36415; 80053; 81001; 83690; 85025; 99283

== ENCOUNTER 2025-01-11 | Outpatient (REF) | payer MEDICAID, SELFPAY ==
--- OUTSIDE RECORDS SUMMARY | 2024-09-28 06:58 | XMS_ITS | Patient Health Record ---
Author Organization [facility] Address [address] [place] [address] Care Team Providers Care Commercial Pilot Name Role Phone Aleksandr Spangler Jr Reason For Referral No Information Plan Of Treatment No Information
--- OUTSIDE RECORDS SUMMARY | 2024-09-28 06:58 | XMS_ITS | Clinical Summary ---
Author Organization [employer] Address [address] [place] [address] Care Team Providers Care Raker Buffing Wheel Name Role Phone Mirtha Lunsford MD Primary Care Provider [phone] Victoria Radford PharmD Unavailable Acosta Sinha ELECTRONIC SYSTEM ENGINEER Unavailable Unavailable Flip Wan MD Unavailable [phone] Dmitri Sequeira MD Unavailable Stephane Pisano MD Unavailable Melvin Claros MD Unavailable [phone] Artur Aguilar MD Unavailable Allergies Active Allergy [...] MORNING 90 tablet 1 08/29/19 25 Active albuterol (Ventolin HFA) 108 (90 Base) MCG/ACT inhalerIndicati ons:Moderate persistent asthma without complication INHALE 2 PUFFS BY MOUTH EVERY 4 HOURS NEEDED FOR WHEEZING OR SHORTNESS OF BREATH 18 g 1 09/22/19 25 Active pregabalin (Lyrica) 150 MG capsuleIndicati ons:Chronic bilateral low back pain, unspecified whether sciatica present TAKE 1 CAPSULE BY MOUTH TWICE DAILY IN THE MORNING AND IN THE EVENING 60 capsule 09/28/19 25 Active albuterol (Ventolin HFA) 108 (90 [...] EVENING 60 capsule 08/03/19 25 2024 Discontinued pregabalin (Lyrica) 150 MG capsuleIndicati ons:Chronic bilateral low back pain, unspecified whether sciatica present TAKE 1 CAPSULE BY MOUTH TWICE DAILY IN THE MORNING AND IN THE EVENING 60 capsule 09/01/19 25 2024 Discontinued Active Problems Problem Noted [...] pain 04/16/2024 Overview (04/16/2024): -Patient followed at [facility] with Dr. Agueda Claros DO. [...] and nutrition interventions discussed. -Patient followed at [facility] with Dr. Agueda Claros [...] retention. I spoke with JULIETA Wood at [facility] pain clinic and they want the last CT scan faxed at [phone], they will fu with patient this week. Order lumbar MRI ro cord compromise Other specified health status 07/02/2022 Overview (06/18/2024): -next physical exam due after 06/18/25 -eye care facilitated by [facility] -dental home is [facility] -health care proxy filed 12/19/23 Assessment & Plan (06/18/2024 3:03 PM EDT): -next physical exam due after 06/18/25 -eye care [facility] -dental home is [facility] -health care proxy filed 12/19/23 Assessment & Plan (12/19/2023 9:30 AM EDT): -next physical exam due after 05/29/2024 -[facility]dental home is [facility] -health care proxy filed 12/19/23 Assessment & Plan (05/30/2023 10:13 AM EDT): -next physical exam due after 02/28/2023 -[facility] -dental home is [facility] -health care proxy given on 05/30/2023 [...] plan. Moderate persistent asthma 02/24/2022 Overview (02/02/2024): -community health nurse staff Dr. Wan seen 02/02/24 -Well controlled on current regimen of Xolair, Combivent, Advair, albuterol MDI. -last prednisone use 12/28/23 for exacerbation, given by pulmonary Assessment & Plan (06/18/2024 3:06 PM EDT): -community health nurse staff Dr. Wan seen 02/02/24 -Well controlled on current regimen of Xolair, Combivent, Advair, albuterol MDI. -last prednisone use 12/28/23 for exacerbation, given by pulmonary Assessment & Plan (02/23/2024 10:09 AM EST): -community health nurse staff Dr. Wan seen 02/02/24 -Well controlled on current regimen of Xolair, Combivent, Advair, albuterol MDI. -last prednisone use 12/28/23 for exacerbation, given by pulmonary Assessment & Plan (05/30/2023 12:31 PM EDT): -community health nurse staff Dr. Wan seen 12/2022 -Well controlled on current regimen of Xolair, Combivent, Advair, albuterol MDI. Continue current Assessment & Plan (01/24/2023 9:53 AM EST): -community health nurse staff Dr. Wan seen 12/2022 -Well controlled on current regimen of Xolair, Combivent, Advair, albuterol MDI. Continue current Assessment & Plan (12/20/2022 8:01 PM EDT): Few wheezing on lung exam,reports feeling well -offered NBZ tx here but refuse states will get at home ,and got pump tx before coming that may cause elevated HR -continue his regular inh and montelukast -continue care w community health nurse staff -planned apt for next month -advised to get booster for COVID 19 at vaccine clinic, pt s/p p20 and flu vaccine already Assessment & Plan (11/01/2022 9:02 AM EDT): -community health nurse staff Dr. Wan -continue Flovent -continue Singulair -continue albuterol prn Assessment & Plan (06/28/2022 10:09 AM EDT): Normal lung exam. advised to call Dr. Wan, his community health nurse staff, for kristan't. continue Flovent, Singulair, may use [...] Essential hypertension 08/19/2020 Overview (06/18/2024): -followed by [facility] -echo 03/31/23 EF 60-65% no changes compared to02/2017 -Blood pressure is slightly above goal, recommended monitoring at home. -Continue lifestyle modifications -Continue current medications -cardiology note from 04/12/23, no changes, follow up 6 months Assessment & Plan (06/18/2024 3:06 PM EDT): -followed by [facility] -echo 03/31/23 EF 60-65% no changes compared to02/2017 -Blood pressure is slightly above goal, recommended monitoring at home. -Continue lifestyle modifications -Continue current medications -cardiology note from 04/12/23, no changes, follow up 6 months Assessment & Plan (11/03/2023 10:12 AM EDT): -followed by [facility] -echo 03/31/23 EF 60-65% no changes compared to02/2017 -Blood pressure is at goal -Continue lifestyle modifications -Continue current medications -cardiology note from 04/12/23, no changes, follow up 6 months Assessment & Plan (05/30/2023 12:31 PM EDT): -followed by [facility] -echo 03/31/23 EF 60-65% no [...] -atorvastatin increased from 40mg to 80mg by [facility] 08/2023 -continue lifestyle modifications Assessment & Plan (06/18/2024 3:03 PM EDT): Lab Results Component Value Date CHOL 183 08/26/2023 CHOL 237 (H) 05/30/2023 TRIG 78 08/26/2023 TRIG 139 05/30/2023 TRIG 159 (H) 03/05/2022 HDL 78 08/26/2023 HDL 79 05/30/2023 LDLCHOLCAL 90 08/26/2023 LDLCHOLCAL 131 (H) 05/30/2023 -atorvastatin increased from 40mg to 80mg by [facility] 08/2023 -continue lifestyle modifications Assessment & Plan [...] diet and exercise,discussed healthy life style -discussed [facility] nurse referral -referred today Acute dehydration 09/23/2022 10/27/2022 [...] is for one week only and not longterm. Acute idiopathic gout involv ing toe of [...] Encounters Date Type Department Care Team Description 09/27/2024 Telephone [facility] [address] [place] [address] Mirtha Lunsford MD November Recalls 09/27/2024 Travel 09/27/2024 Refill [facility] [address] [place] [address] Mirtha Lunsford MD Chronic bilateral low back pain, unspecified whether sciatica present 09/21/2024 Refill [facility] [address] [place] [address] Mirtha Lunsford MD Moderate persistent asthma without complication 08/31/2024 Refill [facility] [address] [place] [phone] Mirtha Lunsford MD Chronic bilateral low back pain, unspecified whether sciatica present 08/30/2024 Orders Only GENERIC EXTERNAL DATA DEPARTMENT Provider, Generic External Data 08/26/2024 Refill [facility] [address] [place] [address] Mirtha Lunsford MD Seasonal allergies 08/12/2024 Refill [facility] [address] [place] [address] Mirtha Lunsford MD Sacroiliac joint dysfunction; Rash 08/02/2024 Refill [facility] [address] [place] [address] Kalli Henderson MD Chronic bilateral low back pain, unspecified whether sciatica present 07/30/2024 Refill [facility] [address] [place] [address] Mirtha Lunsford MD Moderate persistent asthma without complication 07/24/2024 Refill [facility] [address] [place] [phone] Victoria Radford, PharmD Dyslipidemia 07/18/2024 8:00 AM EDT Office Visit [facility] [address] [place] [phone] Rebecca Capps Dental calculus (Primary Dx); Dental plaque 07/15/2024 Orders Only GENERIC EXTERNAL DATA DEPARTMENT Provider, Generic External Data 07/03/2024 Refill [facility] [address] [place] [phone] Mirtha Lunsford MD Chronic bilateral low back [...] Care Team (Late st Contact Info) Description 12/17/2024 10:45 AM EDT Office Visit [facility] [address] [place] [address] Mirtha Lunsford MD [address] [place] [address] 02/11/2025 8:00 AM EST Office Visit [facility] [address] [place] [address] Rebecca Capps Health Maintenance Due Date Last [...] 06/06/2025 06/06/2024 Depression Screening 06/18/2025 06/18/2024, 06/19/19 25 Disability Screening 06/18/2025 06/18/2024 Tobacco Screening 07/18/2025 [...] of4 resultswithin the time period is included. TROPONIN I HIGH SENSITIVITY 23.4 <3.5 - 35.0 ng/L [facility] Comment:The Lamb high sens itivity Troponin-I results should beused in conjunction with other diagnostic information suchas ECG, clinical observations and information, and patientsymptoms to aid in the diagnosis of [place]. 08/30/2024 11:4 8 AM EDT 08/30/2024 11:51 AM EDT us Generic External Data Provider LAB BLOOD ORDERAB LES Final Result [facility] [address], [place] [phone] * (ABNORMAL) CBC auto differential (08/30/2024 8:57 AM EDT) Only the most recent of2 resultswithin the time period is included. White Blood Count 12.0(H) 4.8 - 10.8 X10*3/uL [facility] Red Blood Count 5.24 4.60 - 5.80 X10*6/uL [facility] Hemoglobin 16.2 14.0 - 18.0 g/dl [facility] Hematocrit 47.6 42.0 - 52.0 % [facility] Mean Corpuscular Volume 90.8 80.0 - 98.0 fL [facility] Mean Corpuscular Hemoglobin 30.9 27.0 - 33.0 pg [facility] Mean Corpuscular HGB Conc 34.0 31.0 - 36.0 g/dl [facility] Red Cell Distribution Width 13.2 11.0 - 16.0 % [facility] Platelet Count 255 160 - 400 X10*3/uL [facility] Mean Platelet Volume 11.3 9.4 - 12.4 fL [facility] Neutrophils Percent Auto 65.9 45 - 73 % [facility] Imm Gran Pct Auto 4.3(H) 0.0 - 0.4 % [facility] Lymphocytes Percent Auto 15.8(L) 20 - 40 % [facility] Monocytes Percent Auto 8.1 2 - 11 % [facility] Eosinophils Percent Auto 5.1(H) 0 - 4 % [facility] Basophils Percent Auto 0.8 0 - 2 % [facility] NRBC Pct Auto 0.0 0.0 - 0.2 /100WBC [facility] Neutrophils Absolute Auto 7.9 2.0 - 8.3 x10*3/uL [facility] Imm Gran Abs Auto 0.52(H) 0.00 - 0.03 X10*3/uL [facility] Lymphocytes Absolute Auto 1.9 1.2 - 4.9 X10*3/uL [facility] Monocytes Absolute Auto 1.0 0.1 - 1.2 X10*3/uL [facility] Eosinophils Absolute Auto 0.6(H) 0.0 - 0.4 X10*3/uL [facility] Basophils Absolute Auto 0.1 0.0 - 0.2 X10*3/uL [facility] NRBC Abs Auto 0.000 0.0 - 0.012 X10*3/uL [facility] 08/30/2024 8:57 AM EDT 08/30/2024 9:02 AM EDT us Generic External Data Provider LAB BLOOD ORDERAB LES Final Result Performing Organization Address [facility]/ZIP Co de Phone Number [facility] [address] [place] [phone] * (ABNORMAL) Uric acid (08/30/2024 8:57 AM EDT) Uric Acid 9.9(H) 3.4 - 7.0 mg/dL [facility] 08/30/2024 8:57 AM EDT 08/30/2024 9:02 AM EDT us Generic External Data Provider LAB BLOOD ORDERAB LES Final Result Performing Organization Address City/[facility]/ZIP Co de Phone Number [facility] [address] [place] [phone] * B Type Natriuretic Peptide (BNP) (08/30/2024 8:57 AM EDT) B Type Natriuretic Peptide <10 <100 pg/mL [facility] 08/30/2024 8:57 AM EDT 08/30/2024 9:02 AM EDT us Generic External Data Provider LAB BLOOD ORDERAB LES Final Result Performing Organization Address City/[facility]/ZIP Co de Phone Number [facility] [address] [place] [phone] * Magnesium (08/30/2024 8:57 AM EDT) Pathologist [facility] Magnesium 2.3 1.6 - 2.6 mg/dL [facility] 08/30/2024 8:57 AM EDT 08/30/2024 9:02 AM EDT us Generic External Data Provider LAB BLOOD ORDERAB LES Final Result Performing Organization Address [facility] Co de Phone Number [facility] [address] [place] [phone] * (ABNORMAL) Hepatic Function Panel (08/30/2024 8:57 AM EDT) [facility] Bilirubin, Total 0.9 0.0 - 1.0 mg/dL [facility] Bilirubin, Direct 0.3 0.0 - 0.5 mg/dL [facility] Aspartate Amino Transferase 30 5 - 37 U/L [facility] Alanine Aminotransferase 41(H) 0 - 40 U/L [facility] Total Protein 7.7 6.5 - 8.0 g/dL [facility] Albumin Level 4.6 3.5 - 5.0 g/dL [facility] Alkaline Phosphatase 124(H) 39 - 117 U/L [facility] 08/30/2024 8:57 AM EDT 08/30/2024 9:02 AM EDT us Generic External Data Provider LAB BLOOD ORDERAB LES Final Result Performing Organization Address [facility] Co de Phone Number [facility] [address] [place] [phone] * (ABNORMAL) Basic Metabolic Panel (08/30/2024 8:57 AM EDT) [facility] Sodium 137 135 - 145 mmol/L [facility] Potassium 4.3 3.3 - 5.1 mmol/L [facility] Chloride 105 96 - 108 mmol/L [facility] Carbon Dioxide 23 22 - 29 mmol/L [facility] Anion Gap 13 12 - 20 [facility] Urea Nitrogen (BUN) 20(H) 9 - 16 mg/dL [facility] Creatinine, Serum 1.20 0.5 - 1.4 mg/dL [facility] Creatinine Clr Calc Pharmacy 74.1 [facility] Comment:eGFR (calculated fro m the MDRD study equation) and eCrCl(calculated from the Cockcroft-Gault equation) are based ondifferent parameters and may not yield comparable results.If eCrCl result is absurd, please check patient'sheight/weight. Estimated Glomerular Filt Rate >60 [facility] Comment:Chronic Kidney Disea se: Estimated GFR < 60 mL/min/1.17x9Zntmyr Kidney Disease: Estimated GFR < 15 mL/min/1.73m2 Glucose 105 60 - 115 mg/dL [facility] Calcium 9.5 8.4 - 10.2 mg/dL [facility] 08/30/2024 8:57 AM EDT 08/30/2024 9:02 AM EDT us Generic External Data Provider LAB BLOOD ORDERAB LES Final Result [facility] [address] [place] [phone] * XR Chest 2 Views (08/30/2024 8:10 AM EDT) Anatomical Region Laterality Modality Chest Radiographic Ursula ging 08/30/2024 8:10 AM EDT Narrative 08/30/2024 9:17 AM EDT [address] [address] XRay Report Signed Patient: Yuri Stokes MR#: [id number] : 1970 Acct:[id number] Age/Sex: 54 / M ADM Date: 08/30/24 Loc: HO.ED Attending Dr: Ordering Physician: Jena Corrales DO Date of Service: 08/30/24 Procedure(s): XR chest 2V Accession Number(s): [id number] cc: Mirtha Lunsford MD; Jena Corrales DO [...] signed by Artur Walker MD in OV> 08/30/24 0914 DD/ 0810 TD/TT: 08/30/24 0909 Broach Grinder: Procedure Note Donotuseinterpreter, Image - 08/30/2024 [place] [address] XRay Report Signed Patient: Yuri Stokes MR#: [id number] : 1970Acct:[id number] Age/Sex: 54 / MADM Date: 08/30/24 Loc: HO.ED Attending Dr: Ordering Physician: Jena Corrales DO Date of Service: 08/30/24 Procedure(s): XR chest 2V Accession Number(s): [id number] cc: Mirtha Lunsford MD; Jena Corrales DO [...] signed by Artur Walker MD in OV> 08/30/24 0914 DD/ 0810 TD/TT: 08/30/24 0909 Broach Grinder: [facility] External Provider IMG XR PROCEDURES Edited Result - Final * XR Chest 1 View (07/15/2024 1:48 AM EDT) Anatomical Region Laterality Modality Chest Radiographic Ursula ging 07/15/2024 1:48 AM EDT Narrative 07/15/2024 1:49 AM EDT [place] [address] XRay Report Signed Patient: Yuri Stokes MR#: [id number] : 1970 Acct:[id number] Age/Sex: 54 / M ADM Date: 07/15/24 Loc: HO.ED Attending Dr: Ordering Physician: Javed Olsen MD Date of Service: 07/15/24 Procedure(s): XR chest 1V Accession Number(s): [id number] cc: Mirtha Lunsford MD; Javed Olsen MD [...] by Adrian Park MD in OV> 07/15/24 0149 DD/ 7 TD/TT: 07/15/24147 Broach Grinder: Procedure Note Donotuseinterpreter, Image - 07/15/[address] [address] XRay Report Signed Patient: Yuri Stokes MR#: [id number] : 1970Acct:[id number] Age/Sex: 54 / MADM Date: 07/15/24 Loc: HO.ED Attending Dr: Ordering Physician: Javed Olsen MD Date of Service: 07/15/24 Procedure(s): XR chest 1V Accession Number(s): [id number] cc: Mirtha Lunsford MD; Javed Olsen MD [...] in OV> 07/15/24148 DD/ 7 TD/TT: 07/15/24147 Broach Grinder: [facility] External Provider IMG XR PROCEDURES Edited Result - Final * SARS-CoV-2 RNA, Influenza A/B, and RSV RNA, Ql NAAT (07/15/2024 1:22 AM EDT) Influenza A PCR NEGATIVE Negative [facility] Influenza B PCR NEGATIVE Negative [facility] Resp Syncy Virus RNA Qual PCR NEGATIVE Negative [facility] SARS COV2 PCR NEGATIVE Negative [facility] Comment:All test results mus t [...] use by authorized laboratories.Testing performed on the [employer] GeneXpert utilizingreal-time RT-PCR.All SARS CoV2 and positive influenza A/B results arereported to [facility]. 07/15/2024 1:22 AM EDT 07/15/2024 1:28 AM EDT us Generic External Data Provider LAB MICROBIOLOGY - GENERAL ORDERABLES Final Result [facility] [address] [place] [phone] * (ABNORMAL) Comprehensive Metabolic Panel (07/15/2024 1:22 AM EDT) Sodium 141 135 - 145 mmol/L [facility] Potassium 4.1 3.3 - 5.1 mmol/L [facility] Chloride 110(H) 96 - 108 mmol/L [facility] Carbon Dioxide 20(L) 22 - 29 mmol/L [facility] Anion Gap 15 12 - 20 [facility] Urea Nitrogen (BUN) 15 9 - 16 mg/dL [facility] Creatinine, Serum 1.06 0.5 - 1.4 mg/dL [facility] Creatinine Clr Calc Pharmacy 88.4 [facility] Comment:eGFR (calculated fro m the MDRD study equation) and eCrCl(calculated from the Cockcroft-Gault equation) are based ondifferent parameters and may not yield comparable results.If eCrCl result is absurd, please check patient'sheight/weight. Estimated Glomerular Filt Rate >60 [facility] Comment:Chronic Kidney Disea se: Estimated GFR < 60 mL/min/1.14h1Qryaee Kidney Disease: Estimated GFR < 15 mL/min/1.73m2 Glucose 93 60 - 115 mg/dL [facility] Calcium 8.8 8.4 - 10.2 mg/dL [facility] Bilirubin, Total 0.3 0.0 - 1.0 mg/dL [facility] Aspartate Amino Transferase 29 5 - 37 U/L [facility] Alanine Aminotransferase 34 0 - 40 U/L [facility] Total Protein 6.8 6.5 - 8.0 g/dL [facility] Albumin Level 4.1 3.5 - 5.0 g/dL [facility] Alkaline Phosphatase 113 39 - 117 U/L [facility] 07/15/2024 1:22 AM EDT 07/15/2024 1:28 AM EDT us Generic External Data Provider LAB BLOOD ORDERAB LES Final Result Performing Organization Address [facility]/ZIP Co de Phone Number [facility] [address] [place] [phone] * Hepatitis C Antibody with Reflex to HCV, RNA, Quantitative, Real-Time PCR (02/28/2024 9:26 AM EST) Hepatitis C Antibody Nonreactive Nonreactive [facility] Comment:Antibodies to HCV no t detected; does not exclude early acuteHCV infection. Blood Venous blood specimen / Unknown 02/28/2024 9:26 AM EST 02/28/2024 11:15 AM EST us Mirtha Lunsford MD LAB BLOOD ORDERABLES Final Result Performing Organization Address [facility]/ZIP Co de Phone Number [facility] [address] [place] [phone] * HIV-1/2 Antigen and Antibodies, Fourth Generation, with Reflexes (02/28/2024 9:26 AM EST) HIV AB/AG Nonreactive Nonreactive [facility] Comment:HIV-1 p24 Ag and/or HIV-1/HIV-2 Ab not detected.A test result that is nonreactive does not exclude thepossibility of exposure to or infection with HIV-1 and/orHIV-2. Nonreactive results in this assay for individualswith prior exposure to HIV-1 and/or HIV-2 may be due toantigen and antibody levels that are below the limit ofdetection of this assay.The mycujoonity HIV Ag/Ab Combo assay result andsupplemental assay results should be interpreted inconjunction with the patient's clinical presentation,history and other laboratory results. If the results areinconsistent with clinical evidence, additional testing issuggested to confirm the result. Blood Venous blood specimen / Unknown 02/28/2024 9:26 AM EST 02/28/2024 11:15 AM EST us Mirtha Lunsford MD LAB BLOOD ORDERABLES Final Result [facility] [address] [place] [phone] * Lipid Panel, Standard (08/26/2023 9:11 AM EDT) Triglycerides 78 <150 mg/dL [facility] Comment:Desirable Triglyceri de: less than 150 mg/dLBorderline High Triglyceride 150-199 mg/dLHigh Triglyceride: 200-499 mg/dLVery High Triglyceride: greater than or equal to 5OO mg/dL Cholesterol 183 <200 mg/dL [facility] Comment:Desirable Cholestero l: less than 200 mg/dLBorderline High Cholesterol: 200-239 mg/dLHigh Cholesterol: greater than 239 mg/dL LDL Cholesterol Calculated 90 <100 mg/dL [facility] Comment:Desirable LDL: less than 100 mg/dLNear Optimal/Above Optimal LDL: 110- 129 mg/dLBorderline High LDL: 130-159 mg/dLHigh LDL: 160-189 mg/dLVery High LDL: greater than or equal to 190 mg/dL HDL Cholesterol 78 >40 mg/dL [facility] Comment:Desirable HDL: great er than 40 mg/dL Note: This HDL assay may give artificially low results in patients with liver disease. 08/26/2023 9:11 AM EDT 08/26/2023 11:07 AM EDT Mirtha Lunsford MD LAB BLOOD ORDERABLES Final Result [facility] [address] [place] [phone] * (ABNORMAL) Colonoscopy (07/08/2023) Colonoscopy Abnormal( A) Normal Comment:Multiple polyps with Dr. Pisano, repeat 1 year Historical Provider HEALTH MAINTENANCE Edited Result - Final from Last 3 Months or Most Recently Relevant to Health Maintenance Insurance C3 [facility] MEDICAID STAND ADULT Advance Directives Documents on File Type Date Recorded Patient Transportation Dispatcher Expl anation Advance Directives and Living Will 12/19/2023 Health Care Proxy 12/19/23 Care Teams Raker Buffing Wheel Relationship Specialty Start Date End Date Jonn, MD Mirtha [address] [place] [address] PCP - General Family Medicine 03/04/15 Victoria Radford PharmD [address] [place] [address] Pharmacist Internal Medicine 08/03/22 Acosta Sinha FNP [address] [place] [address] Nurse Practitioner Family Medicine 01/17/23 Flip Wan MD [address] [place] [address] Pulmonary Disease 02/02/24 Dmitri Sequeira MD [address] [place] [phone] Nephrology 02/10/24 Stephane Pisano MD [address] [place] [address] 3rd Floor [place], [place] General Surgery 02/10/24 Melvin Claros MD [address] [place] [address] Cardiology 04/16/24 Artur Aguilar MD 10 [facility] [address] [place] [id number] Endocrinology 05/31/24 Ghassan [facility] Home Stereo Equipment InstallerLatex Caster 02/07/24June,Joyce Hoover PA-C Lung Cancer Screening Program Radiology 07/31/24
--- OUTSIDE RECORDS SUMMARY | 2024-09-28 06:58 | XMS_ITS | Encounter Summary ---
Author Organization [facility] Address [address] [facility] [address] [place] [address] Phone Care Team Providers Care Air Brush Decorator Name Role Phone Tavia Mosquera Primary Care Provider [phone] Reason for Referral * Imaging (Routine) - Closed Specialty Diagnoses / Procedures Referred By Contac t Referred To Contact Diagnoses Right kidney absent Procedures Ultrasound renal limited Dmitri Sequeira MD Phone: tel: fax: Referral ID Status Reason Start Date Expiration Date Visits Re quested Visits Authorized [id number] Closed 09/22/2023 09/21/2024 1 1 Encounter Details Date Type Department Care Team (Latest Contact Info) Description 09/22/2023 Office Communication [facility] [address] [place] [address] Dmitri Sequeira MD [address] [facility] [address] [place] [phone] Right kidney absent (Primary Dx) Social History [...] saw him--put on schedule 09/22/23 so I crystal finisher write a note * Telephone Encounter - [...] Primary documented in this encounter Care Teams Air Brush Decorator Relationship Specialty Start Date End Date [facility] [address] [place] [id number] PCP - General 04/29/22 documented as of this encounter
--- OUTSIDE RECORDS SUMMARY | 2024-09-28 06:58 | XMS_ITS | Clinical Summary ---
Author Organization [address] [facility] Address 175 [place] [address] Phone Care Team Providers Care Irrigation Manager Name Role Phone Lucrecia Pitt MD Primary Care Provider + [phone] Medications ketoconazole (NIZORAL) 2 % cream Apply [...] AM EDT Office Visit Orthopedic Surgery - [place] [address] [phone] Nick Hooper, DPM Acute gout of left [...] AM EDT Office Visit Orthopedic Surgery - [place] [address] [phone] Nick Hooper, DPM [address] [address] Health Maintenance Due Date Last Done Comments [...] Months Insurance MEDICAID - [place] Care Teams Irrigation Manager Relationship Specialty Start Date End Date Lucrecia Pitt MD [address] [facility] 1 [place] [address] PCP - General 09/23/22
[2024-10-16 13:53] VITALS: BMI 32.4
--- NOTE | 2024-10-16 14:54 | HO.ANESPROP2 ---
HPI - Anesthesia Eval Consult details Narrative: 54yo M for Colonoscopy with Possible Polypectomy [facility] Active Problems Active Problems: All Active Problems Preop pulmonary/respiratory exam (Acute) Bilateral carpal tunnel syndrome (Acute) History of adenomatous polyp of colon (Acute) Nicotine dependence, cigarettes, uncomplicated (Acute) Numbness and tingling in both hands (Acute) Myofascial pain (Acute) Arthritis of right shoulder (Acute) Severe persistent asthma (Acute) Cough (Acute) History of rectal polyps (Acute) Asthma (Acute) Gastritis (Acute) Acute pyelonephritis (Acute) Acute right flank pain (Acute) Engages in vaping (Acute) Hip pain (Acute) Environmental allergies (Acute) 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 (Acute) H/O neck surgery (Chronic) Arthritis (Acute) Past Medical History Medical History (Updated 09/26/24 @ 13:16 by Flip Wan MD) History of adenomatous polyp of colon Nicotine dependence, cigarettes, uncomplicated History of rectal polyps Asthma Asthma with exacerbation Hypertension 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 Arthritis Family History Family History Mother Hypertension Asthma Father Medical history unknown Family history of problems with anesthesia: No Surgical History Surgical History (Updated 10/01/24 @ 08:57 by STEPHANY Luna) History of hand surgery History of rectal sphincterotomy History of hydrocelectomy History of colonoscopy History of left nephrectomy H/O neck surgery Previous back surgery History of Problems with Anesthesia: No Social History Social History (Updated 07/27/24 @ 09:54 by Joyce Espino PA-C) Household Members: None Housing: Apartment Do you presently have visiting nurse or other home services: No Alcohol intake: current Alcohol intake frequency: holidays/special occasions only Alcohol type: beer Patient Tobacco Use Status: Current everyday Tobacco user Tobacco use type: Cigarette Years Smoked: (onset 18, 1ppd x 36yrs, 30+PYH) e-Cigarette/Vaping Use: Former Use Second Hand Smoke Exposure: No service: No Current occupational status: unemployed 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 Meds Allergies Allergy/AdvReac Type Severity Reaction Status Date / Time Iodinated Contrast Media Allergy Severe Unknown Verified 10/08/24 08:55 levofloxacin Allergy Mild Rash Verified 10/08/24 08:55 ibuprofen (From MOTRIN) Allergy Unknown KIDNEY Verified 10/08/24 08:55 ISSUES mushroom AdvReac Mild VOMITING Verified 10/08/24 08:55 amlodipine AdvReac Unknown Swelling Verified 10/08/24 08:55 Home Medications ?Medication ?Instructions ?Recorded ?Confirmed ?Last Taken ?Type cyclobenzaprine 10 mg tablet 10 mg PO BEDTIME PRN muscle pain 11/28/22 07/05/24 Unknown History ipratropium 20 mcg-albuterol 100 1 puff inhalation BID Shortness Of 11/28/22 07/05/24 Unknown History mcg/actuation mist for inhalation Breath Or Wheezing (Combivent Respimat) escitalopram oxalate 5 mg tablet 5 mg PO DAILY 12/30/22 07/05/24 Unknown History (Lexapro) lisinopril 20 mg tablet 20 mg PO QAM 12/30/22 07/05/24 Unknown History loratadine 10 mg tablet 10 mg PO DAILY 05/11/23 07/05/24 Unknown History atorvastatin 40 mg tablet 40 mg PO QAM 06/20/23 07/05/24 Unknown History carvedilol 3.125 mg tablet 3.125 mg PO BID 06/20/23 07/05/24 Unknown History escitalopram oxalate 10 mg tablet 10 mg PO DAILY 06/20/23 07/05/24 Unknown History hydroxyzine pamoate 25 mg capsule 25 mg PO DAILY PRN anxiety 06/20/23 07/05/24 Unknown History hydroxyzine pamoate 50 mg capsule 50 mg PO DAILY PRN anxiety 06/20/23 07/05/24 Unknown History metoprolol succinate 25 mg 12.5 mg PO DAILY 06/20/23 07/05/24 Unknown History tablet,extended release 24 hr nicotine 7 mg/24 hr daily 1 patch transdermal Q24H 06/20/23 07/05/24 Unknown History transdermal patch pregabalin 150 mg capsule (Lyrica) 150 mg PO DAILY 06/20/23 07/05/24 Unknown History terbinafine HCl 1 % topical cream 1 appl topical BID 06/20/23 07/05/24 Unknown History Exam Height,Weight and Vital Signs: Height 5 ft 8 in Weight 96.615 kg Assessment and Plan Final Anesthetic Review Family History of Problems with Anesthesia: No History of Problems with Anesthesia: No
--- NOTE | 2025-01-08 11:42 | HO.ANESPROP2 ---
HPI - Anesthesia Eval Consult details Narrative: 54yo M for Colonoscopy with Possible Polypectomy Follows [facility] Cardiology for htn, hx of CP. Eval 09/2024 for c/o CP. Echo and Stress WNL PMFSH Active Problems Active Problems: All Active Problems Abdominal pain (Acute) Preop pulmonary/respiratory exam (Acute) Bilateral carpal tunnel syndrome (Acute) History of adenomatous polyp of colon (Acute) Nicotine dependence, cigarettes, uncomplicated (Acute) Numbness and tingling in both hands (Acute) Myofascial pain (Acute) Arthritis of right shoulder (Acute) Severe persistent asthma (Acute) Cough (Acute) History of rectal polyps (Acute) Asthma (Acute) Gastritis (Acute) Acute pyelonephritis (Acute) Acute right flank pain (Acute) Engages in vaping (Acute) Hip pain (Acute) Environmental allergies (Acute) 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 (Acute) H/O neck surgery (Chronic) Arthritis (Acute) Past Medical History Medical History History of adenomatous polyp of colon Nicotine dependence, cigarettes, uncomplicated History of rectal polyps Asthma Asthma with exacerbation Hypertension 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 Arthritis Family History Family History Mother Hypertension Asthma Father Medical history unknown Family history of problems with anesthesia: No Surgical History Surgical History History of hand surgery History of rectal sphincterotomy History of hydrocelectomy History of colonoscopy History of left nephrectomy H/O neck surgery Previous back surgery History of Problems with Anesthesia: No Social History Social History Household Members: None Housing: Apartment Do you presently have visiting nurse or other home services: No Alcohol intake: current Alcohol intake frequency: holidays/special occasions only Alcohol type: beer Patient Tobacco Use Status: Current everyday Tobacco user Tobacco use type: Cigarette Years Smoked: (onset 18, 1ppd x 36yrs, 30+PYH) Smoked in Last 30 Days: Yes e-Cigarette/Vaping Use: Former Use Second Hand Smoke Exposure: No Use of substances other than those prescribed or required for medical reasons: No Advance Directives: No Advance Directives Information Provided: Yes Do you have a plan to hurt others: No Plan service: No Current occupational status: unemployed 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 Meds Allergies Allergy/AdvReac Type Severity Reaction Status Date / Time Iodinated Contrast Media Allergy Severe Unknown Verified 01/08/25 04:12 levofloxacin Allergy Mild Rash Verified 01/08/25 04:12 ibuprofen (From MOTRIN) Allergy Unknown KIDNEY Verified 01/08/25 04:12 ISSUES mushroom AdvReac Mild VOMITING Verified 01/08/25 04:12 amlodipine AdvReac Unknown Swelling Verified 01/08/25 04:12 Home Medications ?Medication ?Instructions ?Recorded ?Confirmed ?Last Taken ?Type cyclobenzaprine 10 mg tablet 10 mg PO BEDTIME PRN muscle pain 11/28/22 07/05/24 Unknown History ipratropium 20 mcg-albuterol 100 1 puff inhalation BID Shortness Of 11/28/22 07/05/24 Unknown History mcg/actuation mist for inhalation Breath Or Wheezing (Combivent Respimat) escitalopram oxalate 5 mg tablet 5 mg PO DAILY 12/30/22 07/05/24 Unknown History (Lexapro) lisinopril 20 mg tablet 20 mg PO QAM 12/30/22 07/05/24 Unknown History loratadine 10 mg tablet 10 mg PO DAILY 05/11/23 07/05/24 Unknown History atorvastatin 40 mg tablet 40 mg PO QAM 06/20/23 07/05/24 Unknown History carvedilol 3.125 mg tablet 3.125 mg PO BID 06/20/23 07/05/24 Unknown History escitalopram oxalate 10 mg tablet 10 mg PO DAILY 06/20/23 07/05/24 Unknown History hydroxyzine pamoate 25 mg capsule 25 mg PO DAILY PRN anxiety 06/20/23 07/05/24 Unknown History hydroxyzine pamoate 50 mg capsule 50 mg PO DAILY PRN anxiety 06/20/23 07/05/24 Unknown History metoprolol succinate 25 mg 12.5 mg PO DAILY 06/20/23 07/05/24 Unknown History tablet,extended release 24 hr nicotine 7 mg/24 hr daily 1 patch transdermal Q24H 06/20/23 07/05/24 Unknown History transdermal patch pregabalin 150 mg capsule (Lyrica) 150 mg PO DAILY 06/20/23 07/05/24 Unknown History terbinafine HCl 1 % topical cream 1 appl topical BID 06/20/23 07/05/24 Unknown History Exam Height,Weight and Vital Signs: Height 5 ft 8 in Weight 96.615 kg Pertinent Lab Results Pertinent Lab Results: Laboratory Tests 01/08/25 04:22 WBC 14.3 H Hgb 14.6 Hct 44.1 Plt Count 259 Sodium 137 Potassium 4.2 Chloride 109 H Carbon Dioxide 19 L BUN 20 H Creatinine 1.04 Narrative Narrative: Nuc Stress 10/2024 ECHO 09/2024 Assessment and Plan Assessment Anesthesia Assessment: Chart Reviewed Final Anesthetic Review Family History of Problems with Anesthesia: No History of Problems with Anesthesia: No
--- OUTSIDE RECORDS SUMMARY | 2025-04-02 12:23 | XMS_ITS | Encounter Summary ---
Author Organization [employer] Address [address] [facility] 7t [place] [address] Care Team Providers Care Lining Sewer Name Role Phone Mirtha Lunsford MD Primary Care Provider Victoria Radford PharmD Unavailable Acosta Sinha CERTIFIED DRUG COUNSELOR Unavailable Unavailable Flip Wan MD Unavailable [phone] Dimtri Sequeira MD Unavailable [phone] Stephane Pisano MD Unavailable [phone] Melvin Claros MD Unavailable Artur Aguilar MD Unavailable Suzette Bond MD Unavailable [phone] Amelia Rodrigez Unavailable Reason for Visit * Reason Comments Med Refill Encounter Details Date Type Department Care Team (Late st Contact Info) Description 09/23/2022 Refill [facility] [address] [place], [place] [phone] Mirtha Lunsford MD [address] [place], [place] [phone] Seasonal allergies Social History Tobacco Use Types [...] on file documented as of this encounter Goals Goal Patient Goal Type Associated Problems Recent Progress Patient-Stated? Author Blood Pressure < 140/90 Blood Pressure 118/72( 026 9:15 AM EST) No Victoria Mayo, PharmD documented as of this encounter Visit Diagnoses Diagnosis Seasonal allergies Allergic rhinitis, cause unspecified documented in this encounter Additional Health Concerns Assessment Noted Time PHQ-9 Depression Total Score: 10 023 3:38 PM EDT documented as of this encounter Care Teams Lining Sewer Relationship Specialty Start Date End Date Mirtha Lunsford MD [address] [place] [address] PCP - General Family Medicine 03/04/15 Victoria Radford, PharmD [address] [place] [address] Pharmacist Internal Medicine 08/03/22 Acosta Sinha FNP [address] [place] [address] Nurse Practitioner Family Medicine 01/17/23 Flip Wan MD [address] [place] [address] Pulmonary Disease 02/02/24 Dmitri Sequeira MD 100 [facility] 200 [place] [address] Nephrology 02/10/24 Stephane Pisano MD 11 [facility] 3rd [place] [address] General Surgery 02/10/24 Melvin Claros MD 596 [place] [address] Cardiology 04/16/24 Artur Aguilar MD [address] [place] [address] Endocrinology 05/31/24 Suzette Bond MD [address] [place] [address] Orthopaedic Surgery 10/03/24 Amelia Rodrigez 02/25/25 03/15/25 NARAYAN LICEA Tube BufferFilament Wound Parts Fabricator 01/06/23 02/06/24 Ghassan Fletcher Tube BufferFilament Wound Parts Fabricator 02/07/24 03/06/25 Kenzie,Joyce Hoover PA-C Lung Cancer Screening Program Radiology 07/31/24 Bess Moyer Tube BufferFilament Wound Parts Fabricator 03/07/25 documented as of this encounter
--- OUTSIDE RECORDS SUMMARY | 2025-04-02 12:23 | XMS_ITS | Encounter Summary ---
Author Organization [employer] Address [address] [facility] [address] [place] [address] Care Team Providers Care Manager Bakery Name Role Phone Mirtha Lunsford MD Primary Care Provider Victoria Radford PharmD Unavailable Acosta Sinha Unavailable Unavailable Flip Wan MD Unavailable [phone] Dmitri Sequeira MD Unavailable [phone] Stephane Pisano MD Unavailable [phone] Melvin Claros MD Unavailable Artur Aguilar MD Unavailable Suzette Bond MD Unavailable Amelia Rodrigez Unavailable Reason for Visit * Reason Onset Date Comments Other 11/23/2022 Encounter Details Date Type Department Care Team (Late st Contact Info) Description 11/23/2022 Telephone [facility] [address] [place] [address] [phone] Mirtha Lunsford MD [address] [place], [place] [phone] Other Social History Tobacco Use Types Packs/Day [...] Miscellaneous Notes * Telephone Encounter - Melody Jacob - 11/23/2022 9:17 AM EDT Tc from bess with ICP states pt is requesting for a higher dosage to the nicotine patches. States he feels like it is not helping him. Any questions, contact bess at [phone] documented in this encounter Plan of Treatment Not on [...] documented as of this encounter Care Teams Manager Bakery Relationship Specialty Start Date End Date Mirtha Lunsford MD [address] [place] [address] PCP - General Family Medicine 03/04/15 Victoria Radford, PharmD [address] [place] [phone] Pharmacist Internal Medicine 08/03/22 Acosta Sniha FNP [address] [place], [place] Nurse Practitioner Family Medicine 01/17/23 Flip Wan MD [address] [place] [id number] Pulmonary Disease 02/02/24 Dmitri Sequeira MD [address] [place] [phone] Nephrology 02/10/24 Stephane Pisano MD [address] [place] [address] General Surgery 02/10/24 Melvin Claros MD [address] [place] [address] Cardiology 04/16/24 Artur Aguilar MD [address] [place] [address] Endocrinology 05/31/24 Suzette Bond MD [address] [place] [address] Orthopaedic Surgery 10/03/24 Amelia Rodrigez 02/25/25 03/15/25 NARAYAN LICEA Him AssistantMechanical Service Specialist 01/06/23 02/06/24 Ghassan Fletcher Him AssistantMechanical Service Specialist 02/07/24 03/06/25 Joyce Espino PA-C Lung Cancer Screening Program Radiology 07/31/24 Bess Moyer Him AssistantMechanical Service Specialist 03/07/25 documented as of this encounter
--- OUTSIDE RECORDS SUMMARY | 2025-04-02 12:23 | XMS_ITS | Clinical Summary ---
Author Organization [employer] Address [address] [facility] [address] [place] [address] Care Team Providers Care Jewelry Jobber Name Role Phone Mirtha Lunsford MD Primary Care Provider [phone] Victoria Radford PharmD Unavailable [phone] Acosta Sinha Unavailable Unavailable Flip Wan MD Unavailable [phone] Dmitri Sequeira MD Unavailable Stephane Pisano [...] mouth in the morning. 90 tablet 3 6 12:50 PM EST 025 Active metoprolol succinate XL (Toprol-XL) 25 MG 24 hr tabletIndicatio ns:Essential hypertension Take 1 tablet by mouth once daily. Do not crush or chew. 90 tablet 3 6 12:50 PM EST 025 Active neomycin-bacitr acin-polymyxin (Neosporin) 5-400-5000 ointmentIndicat ions:Insect bite of right upper arm, initial encounter Apply topically 4 times daily. 14.2 g 025 Active albuterol (2.5 MG/3ML) 0.083% nebulizer solutionIndicat ions:Moderate persistent asthma with acute exacerbation Take 3 mL by nebulization every 4 (four) hours if needed for wheezing. 75 mL 2 025 Active lidocaine (Lidoderm) 5 % patchIndication s:Sacroiliac joint dysfunction APPLY 1 PATCH TOPICALLY TO SKIN, LEAVE ON FOR 12 HOURS AND OFF FOR 12 HOURS DIRECTED 30 patch 1 025 Active Combivent Respimat 20-100 MCG/ACT inhalerIndicati ons:Mild intermittent asthma without complication INHALE 1 PUFF 4 TIMES A DAY, MAY TAKE ADDITIONAL PUFFS NEEDED. (MAX OF 6 PUFFS PER DAY) 4 g 7 025 Active baclofen (Lioresal) 10 MG tabletIndicatio ns:Sacroiliac joint dysfunction TAKE 1 TABLET BY MOUTH THREE TIMES DAILY IN THE MORNING, AT NOON, AND AT BEDTIME NEEDED FOR MUSCLE SPASMS 60 tablet 1 6 12:50 PM EST 025 Active atorvastatin (Lipitor) 80 MG tabletIndicatio [...] after initial 7d rx. 60 tablet 2 6 12:50 PM EST 025 Active nicotine polacrilex (Nicorette Mini) 2 MG lozengeIndicati ons:Cigarette nicotine dependence without complication,To bacco abuse counseling Allow 1 lozenge to dissolve in mouth every 2 hours or less as needed in place of cigarette 100 lozenge 2 5 10:18 AM EST 025 Active loratadine (Claritin) 10 MG tabletIndicatio ns:Seasonal allergies TAKE 1 TABLET BY MOUTH EVERY MORNING 90 tablet 1 026 Active allopurinol (Zyloprim) 100 MG tabletIndicatio ns:Acute idiopathic gout involving toe of right foot Take 1 tablet (100 mg) by mouth Once per day. 30 tablet 11 6 3:09 PM EST 026 2026 Active pregabalin (Lyrica) 150 MG capsuleIndicati ons:Chronic bilateral low back pain, unspecified whether sciatica present Take 1 capsule (150 mg) by mouth 2 times daily. 60 capsule 6 12:50 PM EST 026 Active albuterol (Ventolin HFA) 108 (90 Base) MCG/ACT inhalerIndicati ons:Moderate persistent asthma with acute exacerbation INHALE 2 PUFFS BY MOUTH EVERY 4 HOURS NEEDED FOR WHEEZING OR SHORTNESS OF BREATH 18 g 1 026 Active Diclofenac Sodium 1 % gel Apply 2 g topically if needed in the morning, at noon, in the evening, and at bedtime (pain). 150 g 1 025 2025 Discontinued(M ed list cleanup (will not trigger notification to Pharmacy)) albuterol (Ventolin HFA) 108 (90 Base) MCG/ACT inhalerIndicati ons:Moderate persistent asthma with acute exacerbation INHALE 2 PUFFS BY MOUTH EVERY 4 HOURS NEEDED FOR WHEEZING OR SHORTNESS OF BREATH 18 g 1 025 2025 Discontinued(R eorder (will not trigger notification to Pharmacy)) acetaminophen (Tylenol 8 Hour) 650 MG ER tablet Take 1 tablet (650 mg) by mouth every 8 (eight) hours if needed for mild pain. Do not crush, chew, or split. 50 tablet 1 5 1:44 PM EST 025 2025 Discontinued(M ed list cleanup (will not trigger notification to Pharmacy)) clotrimazole (Lotrimin) 1 % cream Apply topically 2 times daily. 30 g 1 5 1:44 PM EST 025 2025 Discontinued(M ed list cleanup (will not trigger notification to Pharmacy)) pregabalin (Lyrica) 150 MG capsuleIndicati ons:Chronic bilateral low back pain, unspecified whether sciatica present Take 1 capsule (150 mg) by mouth 2 times daily. 60 capsule 5 11:37 AM EST 025 2025 Discontinued(R eorder (will not trigger notification to Pharmacy)) predniSONE (Deltasone) 20 MG tabletIndicatio ns:Acute idiopathic gout involving toe of right foot 2 tabs po daily for 5 days 10 tablet 6 3:09 PM EST 026 2025 Discontinued(M ed list cleanup (will not trigger notification to Pharmacy)) Active Problems Problem Noted Date Diagnosed Date Dental caries 11/22/2024 Fractured dental jainism with loss of materi al 11/22/2024 Multiple [...] to him. Referred to General Surgery 06/18/24. Hx of chest pain 04/16/2024 Overview (11/19/2024): -Patient followed at [facility] with Dr. Agueda Claros DO. Note from 04/12/24 reviewed. --nuclear stress report from 11/07/24: negative ECG portion of stress test, myocardial perfusion imaging normal, EF 51% Stiffness of joints of both hands 02/23/2024 Overview (03/12/2025): Ongoing stiffness and pain to both hands. -Inflammatory and rheumatoid labs Feb 2024 were negative. -NCS scheduled 06/20/24 -s/p left Left Carpal tunnel release 03/11/[address] Bond Assessment & Plan (06/18/2024 2:55 PM EDT): Ongoing stiffness and pain to both hands. - Inflammatory and rheumatoid labs Feb 2024 were negative. - NCS scheduled 06/20/24 Class 1 obesity due to exces s [...] and nutrition interventions discussed. -Patient followed at [facility] with Dr. Agueda Claros DO. [...] PT 11/01/2022. Acute gouty arthropathy 09/08/2022 Overview (03/20/2025): Lab Results Component Value Date URICACID 9.9 (H) 08/30/2024 -titrate allopurinol Assessment & Plan (03/20/2025 9:53 AM EST): Assessment & Plan (05/30/2023 12:32 PM EDT): [...] re gion with neurogenic claudication 09/07/2022 Overview (03/20/2025): Pt was referred to neuro surgery on with Dr. Dougherty. MRI on 09/23/2022 revealed L5-S1 epidural lipomatosis nearly completey ephasis the thecal sack, L4-L5 broad base left disk protusion compressing the left L5 nerve root, L3-L4 and L2-L3 with epidural lipomatosis. -Cyclobenzaprine at night for back pain -Continue lyrica. -He will work on weight loss and PT. -he requests driving placard. It is unclear if he qualifies. He does use a cane but can walk > 200 feet. Will refer to physical therapy for evaluation and treatment. Assessment & Plan (03/20/2025 9:53 AM EST): Pt was referred to neuro surgery on with Dr. Dougherty. MRI on 09/23/2022 revealed L5-S1 epidural lipomatosis nearly completey ephasis the thecal sack, L4-L5 broad base left disk protusion compressing the left L5 nerve root, L3-L4 and L2-L3 with epidural lipomatosis. -Cyclobenzaprine at night for back pain -Continue lyrica. -He will work on weight loss and PT. -he requests driving placard. It is unclear if he qualifies. He does use a cane but can walk > 200 feet. Will refer to physical therapy for evaluation and treatment. Orders: Referral to Physical Therapy; Future Assessment & Plan (05/30/2023 12:32 PM EDT): [...] retention. I spoke with JULIETA Wood at [facility] pain clinic and they want the last CT scan faxed at [phone], they will fu with patient this week. Order lumbar MRI ro cord compromise Other specified health status 07/02/2022 Overview (06/18/2024): -next physical exam due after 06/18/25 -eye care facilitated by [facility] -dental home is [facility] -health care proxy filed 12/19/23 Assessment & Plan (06/18/2024 3:03 PM EDT): -next physical exam due after 06/18/25 -eye care facilitated by [facility] -dental home is [facility] -health care proxy filed 12/19/23 Assessment & Plan (12/19/2023 9:30 AM EDT): -next physical exam due after 05/29/2024 -eye care facilitated by [facility] -dental home is [facility] -health care proxy filed 12/19/23 Assessment & Plan (05/30/2023 10:13 AM EDT): -next physical exam due after 02/28/2023 -eye care facilitated by [facility] -dental home is [facility] -health care proxy given on 05/30/2023 Assessment & Plan (11/01/2022 9:15 AM EDT): -next physical exam due after 02/28/2023 -[facility] -dental home is Adrenal cortical adenoma 06/28/2022 Overview (03/19/2025): Seen by Dr. Aguilar 05/08/2021 (prior was followed by Dr. Moseley) Hx incidental finding right adrenal nodule found in CT preformed in ER Feb 2018 c/w benign adenoma. Biochemical workup showed mass not manager field services including dexamethasone suppression test. Repeat CT done [...] dexamethasone suppression test to monitor adrenal function. -CT 01/11/25 done in ER Impression: Right adrenal gland reveals a stable 2.2 cm low-density adrenal nodule (4; 180, 3 Hounsfield units), likely stable adenoma. No acute abnormalities or CT explanation for reported history of abdominal pain. Stable right adrenal nodule/adenoma. -Follow up Dr. Aguilar 1 year recommended Assessment & Plan (03/20/2025 9:53 AM EST): Seen by Dr. Aguilar 05/08/2021 (prior was followed by Dr. Moseley) Hx incidental finding right adrenal nodule found in CT preformed in ER Feb 2018 c/w benign adenoma. Biochemical workup showed mass not manager field services including dexamethasone suppression test. Repeat CT done [...] dexamethasone suppression test to monitor adrenal function. -CT 01/11/25 done in ER Impression: Right adrenal gland reveals a stable 2.2 cm low-density adrenal nodule (4; 180, 3 Hounsfield units), likely stable adenoma. No acute abnormalities or CT explanation for reported history of abdominal pain. Stable right adrenal nodule/adenoma. -Follow up Dr. Aguilar 1 year recommended Assessment & Plan (02/23/2024 10:08 AM EST): Seen by Dr. Aguilar 05/08/2021 (prior was followed by Dr. Moseley) Hx incidental finding right adrenal nodule found in CT preformed in ER Feb 2018 c/w benign adenoma. Biochemical workup showed mass not manager field services including dexamethasone suppression test. Repeat CT done [...] benign adenoma. Biochemical workup showed mass not manager field services including dexamethasone suppression test. Repeat CT done 2019. Follow up Dr. Aguilar 1 year recommended. -referral placed 05/30/23 Assessment & Plan (01/24/2023 9:53 AM EST): Seen by Dr. Aguilar 05/08/2021 (prior was followed by Dr. Moseley) Hx incidental finding right adrenal nodule found in CT preformed in ER Feb 2018 c/w benign adenoma. Biochemical workup showed mass not manager field services including dexamethasone suppression test. Repeat CT done [...] the plan. 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 Wan seen 03/19/25 -Well controlled on current regimen of Xolair, Combivent, Advair, albuterol MDI. -last prednisone use 12/28/23 for exacerbation, given by pulmonary Assessment & Plan (03/20/2025 9:53 AM EST): -cnc operator programmer Dr. Wan seen 02/02/24 -Well controlled on current regimen of Xolair, Combivent, Advair, albuterol MDI. -last prednisone use 12/28/23 for exacerbation, given by pulmonary Orders: albuterol (Ventolin HFA) 108 (90 Base) MCG/ACT inhaler; INHALE 2 PUFFS BY MOUTH EVERY 4 HOURS NEEDED FOR WHEEZING OR SHORTNESS OF BREATH Assessment & Plan (03/20/2025 9:53 AM EST): -cnc operator programmer Dr. Wan seen 02/02/24 -Well controlled on current regimen of Xolair, Combivent, Advair, albuterol MDI. -last prednisone use 12/28/23 for exacerbation, given by pulmonary Assessment & Plan (12/17/2024 10:58 AM EDT): -cnc operator programmer Dr. Wan seen 02/02/24 -Well controlled on current regimen of Xolair, Combivent, Advair, albuterol MDI. -last prednisone use 12/28/23 for exacerbation, given by pulmonary Assessment & Plan (06/18/2024 3:06 PM EDT): -cnc operator programmer Dr. Wan seen 02/02/24 -Well controlled on current regimen of Xolair, Combivent, Advair, albuterol MDI. -last prednisone use 12/28/23 for exacerbation, given by pulmonary Assessment & Plan (02/23/2024 10:09 AM EST): -cnc operator programmer Dr. Wan seen 02/02/24 -Well controlled on current regimen of Xolair, Combivent, Advair, albuterol MDI. -last prednisone use 12/28/23 for exacerbation, given by pulmonary Assessment & Plan (05/30/2023 12:31 PM EDT): -cnc operator programmer Dr. Wan seen 12/2022 -Well controlled on current regimen of Xolair, Combivent, Advair, albuterol MDI. Continue current Assessment & Plan (01/24/2023 9:53 AM EST): -cnc operator programmer Dr. Wan seen 12/2022 -Well controlled on current regimen of Xolair, Combivent, Advair, albuterol MDI. Continue current Assessment & Plan (12/20/2022 8:01 PM EDT): Few wheezing on lung exam,reports feeling well -offered NBZ tx here but refuse states will get at home ,and got pump tx before coming that may cause elevated HR -continue his regular inh and montelukast -continue care w cnc operator programmer -planned apt for next month -advised to get booster for COVID 19 at vaccine clinic, pt s/p p20 and flu vaccine already Assessment & Plan (11/01/2022 9:02 AM EDT): -cnc operator programmer Dr. Wan -continue Flovent -continue Singulair -continue albuterol prn Assessment & Plan (06/28/2022 10:09 AM EDT): Normal lung exam. advised to call Dr. aWn, his cnc operator programmer, for kristan't. continue Flovent, Singulair, may use [...] wound. Avoid nephrotoxic agents Assessment & Plan (03/20/2025 9:53 AM EST): Assessment & Plan (05/30/2023 12:34 PM EDT): [...] to lack of breath. Assessment & Plan (03/20/2025 9:53 AM EST): Sleep study 04/18/2017 revealed 1. [...] titration. Stage 2 chronic kidney disease 08/19/2020 Assessment & Plan (03/20/2025 9:53 AM EST): Lab Results Component Value Date CREATININE 1.10 02/22/2025 CREATININE 1.29 01/19/2025 CREATININE 1.20 08/30/2024 CREATININE 1.12 11/21/2021 CREATININE 1.04 09/14/2020 CREATININE 1.04 09/14/2020 EGFR >60 02/22/2025 EGFR 58 01/19/2025 EGFR >60 08/30/2024 Stable, pt has one kidney, avoid nephrotoxic agents. Essential hypertension 08/19/2020 Overview (11/19/2024): -followed by [facility] -echo 03/31/23 EF 60-65% no [...] imaging normal, EF 51% Assessment & Plan (03/20/2025 9:53 AM EST): -followed by [facility] -echo 03/31/23 EF 60-65% no [...] Plan (12/17/2024 10:58 AM EDT): -followed by [facility] -echo 03/31/23 EF 60-65% no changes compared to02/2017 -Blood pressure is slightly above goal, recommended monitoring at home. -Continue lifestyle modifications -Continue current medications -cardiology note from 04/12/23, no changes, follow up 6 months Assessment & Plan (06/18/2024 3:06 PM EDT): -followed by [facility] -echo 03/31/23 EF 60-65% no changes compared to02/2017 -Blood pressure is slightly above goal, recommended monitoring at home. -Continue lifestyle modifications -Continue current medications -cardiology note from 04/12/23, no changes, follow up 6 months Assessment & Plan (11/03/2023 10:12 AM EDT): -followed by [facility] -echo 03/31/23 EF 60-65% no changes compared to02/2017 -Blood pressure is at goal -Continue lifestyle modifications -Continue current medications -cardiology note from 04/12/23, no changes, follow up 6 months Assessment & Plan (05/30/2023 12:31 PM EDT): -followed by [facility] -echo 03/31/23 EF 60-65% no changes [...] depressive disorder, in partial remission 03/09/2012 Overview (03/19/2025): -Followed by psychiatric prescriber Loraine Bunch -denies suicidial or homacidial ideation Assessment & Plan (03/20/2025 9:53 AM EST): -Followed by psychiatric prescriber Loraine Bunch -denies suicidial or homacidial ideation Assessment & Plan (06/18/2024 3:03 PM EDT): -Followed by psychiatric prescriber Loraine Bunch Assessment & Plan (05/30/2023 12:33 PM EDT): Followed by psychiatric prescriber Loraine Bunch Dyslipidemia 03/09/2012 Overview (03/19/2025): Lab Results Component Value Date CHOL 183 08/26/2023 CHOL 237 (H) 05/30/2023 TRIG 78 08/26/2023 TRIG 139 05/30/2023 TRIG 159 (H) 03/05/2022 HDL 78 08/26/2023 HDL 79 05/30/2023 LDLCHOLCAL 90 08/26/2023 LDLCHOLCAL 131 (H) 05/30/2023 -atorvastatin increased from 40mg to 80mg by [facility] 08/2023 -continue lifestyle modifications Assessment & Plan (03/20/2025 9:53 AM EST): Lab Results Component Value Date CHOL 183 08/26/2023 CHOL 237 (H) 05/30/2023 TRIG 78 08/26/2023 TRIG 139 05/30/2023 TRIG 159 (H) 03/05/2022 HDL 78 08/26/2023 HDL 79 05/30/2023 LDLCHOLCAL 90 08/26/2023 LDLCHOLCAL 131 (H) 05/30/2023 -atorvastatin increased from 40mg to 80mg by [facility] 08/2023 -continue lifestyle modifications Assessment & Plan (12/17/2024 10:58 AM EDT): Lab Results Component Value Date CHOL 183 08/26/2023 CHOL 237 (H) 05/30/2023 TRIG 78 08/26/2023 TRIG 139 05/30/2023 TRIG 159 (H) 03/05/2022 HDL 78 08/26/2023 HDL 79 05/30/2023 LDLCHOLCAL 90 08/26/2023 LDLCHOLCAL 131 (H) 05/30/2023 -atorvastatin increased from 40mg to 80mg by [facility] 08/2023 -continue lifestyle modifications Assessment & Plan (06/18/2024 3:03 PM EDT): Lab Results Component Value Date CHOL 183 08/26/2023 CHOL 237 (H) 05/30/2023 TRIG 78 08/26/2023 TRIG 139 05/30/2023 TRIG 159 (H) 03/05/2022 HDL 78 08/26/2023 HDL 79 05/30/2023 LDLCHOLCAL 90 08/26/2023 LDLCHOLCAL 131 (H) 05/30/2023 -atorvastatin increased from 40mg to 80mg by [facility] 08/2023 -continue lifestyle modifications Assessment & Plan [...] -continue lifestyle modifications Nicotine dependence 03/09/2012 Overview (03/20/2025): -Cigg/day: down to 2.5 cig per day from 5 -Age started: 23 -Total years smokin -Pack year history: 15 packs Encouraged smoking cessation resources such as pharmacomtherapy, [facility] smoking cessation group, and [facility] pharmacy smoking cessation clinic -14mg and 7mg patches trialed 11/01/2022 Discussed USPSTF recommends annual lung cancer screening with low dose CT in people who meet the following criteria: -LDCT: referral on 05/30/2023 to pharmacy with [facility] -Per CDTM: patient seen in [facility]TM 10/31/23 and reports smoking 4-5cigs/day and denies using NRT, states he will continue efforts without NRT. Ordered LDCT 06/18/24. We will call about LDCT 03/20/25 Assessment & Plan (03/20/2025 9:53 AM EST): -Cigg/day: down to 2.5 cig per day from 5 -Age started: 23 -Total years smokin -Pack year history: 15 packs Encouraged smoking cessation resources such as pharmacomtherapy, [facility] smoking cessation group, and [facility] pharmacy smoking cessation clinic -14mg and 7mg patches trialed 11/01/2022 Discussed USPSTF recommends annual lung cancer screening with low dose CT in people who meet the following criteria: -[facility] 10/31/23 and reports smoking 4-5cigs/day and denies using NRT, states he will continue efforts without NRT. Ordered LDCT 06/18/24. We will call about LDCT 03/20/25 Assessment & Plan (06/18/2024 3:02 PM EDT): -Cigg/day: 5 -Age started: 23 -Total years smokin -Pack year history: 15 packs Encouraged smoking cessation resources such as pharmacomtherapy, [facility] smoking cessation group, and [facility] pharmacy smoking cessation clinic -14mg [...] as pharmacomtherapy, [facility] smoking cessation group, and [facility] pharmacy smoking cessation clinic -14mg [...] Problem Noted Date Diagnosed Date Resolved Date Ingrown nail of great toe 06/18/2024 Overview (06/18/2024): - Podiatry referral was placed 06/18/24. Assessment & Plan (06/18/2024 3:01 PM EDT): - Podiatry referral was placed 06/18/24. Leg muscle spasm 06/18/2024 10/03/2024 Overview (06/18/2024): Left leg spasm, likely from underlying back issues. No evidence of nerve compression. - Recommended to continue with orthopedics Assessment & Plan (06/18/2024 2:59 PM EDT): Left leg spasm, likely from underlying back issues. No evidence of nerve compression. 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 Acute idiopathic gout involv ing toe [...] Mild intermittent asthma 11/22/2016 Episodic opioid dependence ([facility]/HCC) 03/09/2012 07/02/2022 Encounters Date Type Department Care Team Description 04/02/2025 Refill [facility] [address] [place], [place] [phone] Mirtha Lunsford MD Chronic bilateral low back pain, unspecified whether sciatica present 03/20/2025 9:00 AM EST Office Visit [facility] [address] [place] [address] [phone] Mirtha Lunsford MD Essential hypertension (Primary Dx); Dyslipidemia; Cigarette nicotine dependence without complication; Obstructive sleep apnea of adult; Moderate persistent asthma without complication; Recurrent major depressive disorder, in partial remission ([facility]); Spinal stenosis of lumbar region with neurogenic claudication; Stage 2 chronic kidney disease; History of nephrectomy; Adrenal cortical adenoma, unspecified laterality; Dietary counseling; Exercise counseling; Gout, unspecified cause, unspecified chronicity, unspecified site; Moderate persistent asthma with acute exacerbation; Acute gouty arthropathy; Encounter for immunization 03/20/2025 Results Follow-Up [facility] [address] [place] [address] [phone] Mirtha Lunsford MD Uric acid 03/20/[address] [facility] [address] [place] [phone] Mirtha Lunsford MD Lung screening referral fax 03/20/[address] [phone] Mirtha Lunsford MD 03/20/2025 Travel 03/15/[address] [address] Joyce Nava MA chartprep 03/15/2025 Patient Outreach [facility] [address] [place] [address] Mirtha Lunsford MD 03/12/2025 Patient Outreach [address] [phone] Mirtha Lunsford MD Pre-visit Planning (SDOH Screening negative and Tobacco screening positive) 03/07/2025 Telephone [facility] [address] [place] [address] Mirtha Lunsford MD Care Coordination (CP Care Plan) 03/04/2025 Refill [facility] [address] [place] [address] Mirtha Lunsford MD Chronic bilateral low back pain, unspecified whether sciatica present 02/27/2025 11:00 AM EST Office Visit [address] [address] Mirtha Lunsford MD Acute idiopathic gout involving toe of right foot (Primary Dx); Chest discomfort 02/27/2025 Travel 02/26/[address] [address] Mirtha Lunsford MD chart prep 02/26/2025 Patient Outreach [facility] [address] [place] [address] Mirtha Lunsford MD Care Coordination (CP Care Coordination Chart Review) 02/25/2025 Patient Outreach [address] [phone] Mirtha Lunsford MD 02/22/2025 Orders Only GENERIC EXTERNAL DATA DEPARTMENT Provider, Generic External Data 02/21/[address] [address] Mirtha Lunsford MD Seasonal allergies 01/24/2025 Results Follow-Up [facility] [address] [place] [phone] Anibal Lenz MD Helicobacter pylori Antigen, EIA, Stool 01/24/[address] [address] Mirtha Lunsford MD Chronic bilateral low back pain, unspecified whether sciatica present 01/22/2025 11:00 AM EST Office Visit [address] [address] Anya Muller ANP Pain of upper abdomen (Primary Dx); Abdominal bloating; Cigarette nicotine dependence without complication; Tobacco abuse counseling 01/22/2025 Travel 01/22/[address] [facility] [address] [place] [phone] Mirtha Lunsford MD Chronic bilateral low back pain, unspecified whether sciatica present 01/19/2025 Orders Only GENERIC EXTERNAL DATA DEPARTMENT Provider, Generic External Data 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 (Primary Dx) 01/19/2025 Refill [facility] [address] [place] [phone] Mirtha Lunsford MD Rash 01/17/[address] [address] Mirtha Lunsford MD Dyslipidemia 01/09/2025 Refill [facility] [address] [place] [phone] Mirtha Lunsford MD Sacroiliac joint dysfunction 01/07/2025 9:40 AM EST Office Visit [facility] [address] [place] [phone] Anibal Lenz MD Pain of upper abdomen (Primary Dx); Acute gouty arthritis; Rash 01/07/[address] [facility] [address] [place] [phone] Mirtha Lunsford MD Care Coordination 01/07/2025 Travel from Last 3 Months Immunizations Immunization Administration Dates Next Due Hep A, Adult 05/30/2023,11/01/2022,06/28/2022 Hep B, adult 01/24/2023,08/02/2022,06/28/2022 Influenza injectable quadriv alent IIV4 with preservative 11/01/2022,11/08/2017,01/12/2017,11/18 Influenza injectable quadriv alent preservative free 02/18/2022,11/10/2020,11/28/2019,11/25,11/13/2018,11/21/2014 Influenza, IIV3, injectable 02/18/2022,0 11/10/2020,11/26/2019,11/13,11/08/2017,01/12/2017,11/19/2015 ,11/21/2014,01/20/2012,01/13/2010 Influenza, Recombinant, inje ctable, preservative free 12/20/2024 Influenza, Split (incl. lopez fied surface antigen) 01/20/2012 Influenza, Unspecified 11/10/2020,2019,11/13/2018,11/08,01/12/2017,11/19/2015,11/21/2014 ,01/20/2012,01/13/2010 Influenza, seasonal, injecta ble, preservative free 11/03/2023 Moderna Covid-19 Vaccine 12+ 07/06/2021, 07/06/2021,02/27/2021,02/27,05/23/2020,05/23/2020,04/25/2020 ,04/25/2020 Moderna Covid-19 Vaccine 6+ Bivalent 02/18/2022, 02/18/2022 Pfizer Covid-19 Vaccine 12+ 03/20/2025, 3 Pneumococcal Conjugate PCV 20 11/01/2022 Pneumococcal Polysaccharide PPSV23 10/24/2014,,01/22/2008 Pneumococcal, Unspecified 01/22/2008 TD (adult), 2 Lf tetanus tox oid, preservative free, adsorbed 11/15/2011,05/26/2007 Td (adult) 11/15/2011 Td (adult), 5 Lf tetanus tox oid, preservative free, adsorbed 11/15/2011 Td, Adsorbed, Preservative F ree, Adult Use, Lf Unspecified 05/26/2007 Tdap 12/20/2024,10/24/2014 Zoster, Recombinant 04/27/2021,2021 Family History Medical History [...] is your housing situation today? I have navayogi laureano 08/29/[address] you li ve. Do you have problems with any of the following? None of the above 08/29/2023 Food Insecurity Answer Date Recorded Within the past 12 months, y ou worried that your food would run out before you got money to buy more: Never True 03/12/2025 Within the past 12 months,th e food [...] Sign Reading Time Taken Comments Blood Pressure 118/72 03/20/2025 9:15 AM EST Pulse 104 03/20/2025 9:15 AM EST Temperature 37.2 C (98.9 F) 03/20/2025 9:15 AM EST Respiratory Rate 20 03/20/2025 9:15 AM EST Oxygen Saturation 98% 03/20/2025 9:15 AM EST Inhaled Oxygen Concentration - - Weight 106 kg (233 lb) 03/20/2025 9:15 AM EST Height 167.6 cm (5' 6 ) 02/27/2025 10:45 AM EST Body Mass Index 37.61 02/27/2025 10:45 AM EST Plan of Treatment Health Maintenance Due Date Last Done Comments CT Colonography 1970 FIT DNA/Cologuard 1968 FIT 1968 FOBT 1970 Sigmoidoscopy 1970 RSV Patients and Patients Aged 60 years or older (1 - Risk 50-74 years 1-dose series) 02/15/2018 Colonoscopy 08/23/2024 08/24/2023, 06/21, 07/08/2023, Additional history exists Colorectal Cancer Screening 08/23/2024 Dental X-Ray: Bitewings 01/16/2025 01/16/20 24, 04/15/2021, 03/26/2021, Additional history exists Dental Oral Exam 01/19/2025 07/18/2024, , 07/25/2020, Additional history exists Dental Prophylaxis 01/19/2025 07/18/2024, 1 03/17/2023, 07/25/2020, Additional history exists Depression Screening 06/18/2025 06/18/2024, 06/19/19 Disability Screening 06/18/2025 06/18/2024 Alcohol/Substance Use Screening 12/17/2025 12/17/2024 SDOH Screening 03/12/2026 03/12/2025 Tobacco Screening 03/20/2026 03/20/2025 Dental X-Ray: Full Mouth 01/16/2027 024, 07/25/2020, 07/25/2020, Additional history exists Lipid Panel 08/25/2028 08/26/2023, 0 09/2023, 03/05/2022 DTaP/Tdap/Td Vaccines (3 - Td [...] 12/22/2024 , 02/28/2024, 05/30/2023, Additional history exists COVID-19 Vaccine Completed 03/20/2025, , 01/24/2023, Additional history exists HIB Vaccines Aged Out [...] Pressure 118/72( 026 9:15 AM EST) No Piers-Gambl e, Victoria, PharmD Reduce tobacco use (cigarettes, smokeless, etc) Tobacco Use No Piers-Gambl e, Victoria, PharmD Procedures Procedure Name Priority Date/Time Associated Diagnosis Comments URIC ACID Routine 03/20/2025 10:00 AM EST Gout, unspecified cause, unspecified chronicity, unspecified site ECG 12-LEAD Routine 02/27/2025 12:52 PM EST Chest discomfort URINALYSIS, COMPLETE, WITH REFLEX TO CULTURE Routine 02/22/2025 5:50 AM EST XR FOOT 3+ VIEWS RIGHT Routine 5:42 AM EST MAGNESIUM Routine 02/22/2025 4:57 AM EST COMPREHENSIVE METABOLIC PANEL Routine 02/22/2025 4:57 AM EST COVID-19 ID NOW ([place]CO[place]O) Routine 02/22/2025 4:57 AM EST CBC WITH AUTO DIFFERENTIAL Routine 02/22/2025 4:57 AM EST INFLUENZA A B2 ID NOW ([place] Jock) Routine 02/22/2025 4:57 AM EST HELICOBACTER PYLORI AG, EIA, STOOL Routine 01/23/2025 5:35 AM EST Pain of upper abdomen CT ABDOMEN PELVIS WO CONTRAST Routine 01/19/2025 4:47 PM EST LIPASE Routine 01/19/2025 12:50 PM EST MAGNESIUM Routine 01/19/2025 12:50 PM EST COMPREHENSIVE METABOLIC PANEL Routine 01/19/2025 12:50 PM EST CBC WITH AUTO DIFFERENTIAL Routine 01/19/2025 12:50 PM EST HEPATITIS C AB W/REFL TO HCV RNA, QN, PCR Routine 12/22/2024 7:26 AM EDT Routine screening for STI (sexually transmitted infection) HIV 1/2 ANTIGEN/ANTIBODY, FOURTH GENERATION W/RFL Routine 12/22/2024 7:26 AM EDT Routine screening for STI (sexually transmitted infection) PROPHYLAXIS - ADULT Routine 07/18/2024 8 :00 [...] Recently Relevant to Health Maintenance Results * Uric acid (03/20/2025 10:00 AM EST) Uric Acid 5.7 3.4 - 7.0 mg/dL [facility] Blood Venous blood specimen / Unknown 03/20/2025 10:00 AM EST 03/20/2025 11:39 AM EST Mirtha Lunsford MD LAB BLOOD ORDERABLES Final Result [facility] [address] [place] [phone] * ECG 12 lead (02/27/2025 12:52 PM EST) Narrative Mirtha Lunsford MD - 02/27/2025 12:52 PM EST NSR without evidence of ischemia or infarction Mirtha Lunsford MD ECG ORDERABLES Final Resu lt * Urinalysis, Complete, with Reflex to Culture (02/22/2025 5:50 AM EST) Color Urine Yellow [facility] Appearance Urine Clear [facility] PH 5.5 5.0 - 9.0 [facility] Glucose Urine UA Negative Negative mg/dL [facility] Urine Blood Negative Negative [facility] Specific Pyatt - Urine 1.020 1.005 - 1.025 [facility] Urine Protein Negative Neg-Trace mg/dL [facility] Urine Ketones Negative Negative mg/dL [facility] Nitrite Urine Negative Negative [facility] Leukocyte Esterase Urine Negative Negative [facility] RBC Urine 0-2 0 - 2 /HPF [facility] Urine WBC 0-5 0 - 5 /HPF [facility] Urine Squamous Epithelial Cell 0-2 0 - 2 /HPF [facility] Urine Bacteria None Seen None Seen [facility] Hyaline Casts, Urine 0-2 0 - 2 /LPF [facility] 02/22/2025 5:50 AM EST 02/22/2025 5:53 AM EST Narrative [facility] - 02/22/2025 5:58 AM EST Urine, Clean Catch us Generic External Data Provider LAB URINE ORDERAB LES Final Result Performing Organization Address City/State/[facility] Co de Phone Number [facility] [address] [place] [phone] * XR Foot 3+ Views Right (02/22/2025 5:42 AM EST) Anatomical Region Laterality Modality Lower Extremities, Foot Right Radiogra phic Imaging 02/22/2025 5:42 AM EST Narrative 02/22/2025 5:43 AM EST [address] [address] XRay Report Signed Patient: Yuri Stokes MR#: [id number] : 1970 Acct:[id number] Age/Sex: 55 / M ADM Date: 02/22/25 Loc: HO.ED Attending Dr: Ordering Physician: Jj Montana MD Date of Service: 02/22/25 Procedure(s): XR foot RT min 3V Accession Number(s): [id number] cc: Mirtha Lunsford MD; Jj Montana MD Reason for Exam: gout 1st MTP pain CLINICAL HISTORY: gout 1st MTP pain 3 view right foot Comparison: CR/SR - XR FOOT 1-2 VIEWS RIGHT - 11/11/22 11:08 EDT CR/SR - XR FOOT 1-2 VIEWS RIGHT - 07/07/22 07:55 EDT Findings: Arthritic change involves the 1st metatarsal phalangeal joint. There is a periarticular erosion noted along the medial aspect of the 1st metatarsal head which can be seen in association with gouty arthritis. Associated soft tissue swelling is noted. The remaining joint spaces appear relatively well maintained. Minimal calcaneal spurring is noted. No fracture is seen. No radiopaque foreign body. IMPRESSION: 1. Findings suggesting possible gouty arthritis involving the 1st metatarsal phalangeal joint. This document has been electronically signed by: Jairo Arenas MD on 02/22/2025 05:42:28 Dictated By: Jairo Arenas Jr, MD Signed By: <Electronically signed by Jairo Arenas Jr, MD in OV> 02/22/25 0543 DD/ TD/TT: 02/22/2542 New Media Strategist: Procedure Note Donotuseinterpreter, Image - 02/22/2025 [place] [address] XRay Report Signed Patient: Yuri Stokes MR#: [id number] : 1970Acct:[id number] Age/Sex: 55 / MADM Date: 02/22/25 Loc: HO.ED Attending Dr: Ordering Physician: Jj Montana MD Date of Service: 02/22/25 Procedure(s): XR foot RT min 3V Accession Number(s): [id number] cc: Mirtha Lunsford MD; Jj Montana MD Reason for Exam: gout 1st MTP pain CLINICAL HISTORY: gout 1st MTP pain 3 view right foot Comparison: CR/SR - XR FOOT 1-2 VIEWS RIGHT - 11/11/22 11:08 EDT CR/SR - XR FOOT 1-2 VIEWS RIGHT - 07/07/22 07:55 EDT Findings: Arthritic change involves the 1st metatarsal phalangeal joint. There is a periarticular erosion noted along the medial aspect of the 1st metatarsal head which can be seen in association with gouty arthritis. Associated soft tissue swelling is noted. The remaining joint spaces appear relatively well maintained. Minimal calcaneal spurring is noted. No fracture is seen. No radiopaque foreign body. IMPRESSION: 1. Findings suggesting possible gouty arthritis involving the 1st metatarsal phalangeal joint. This document has been electronically signed by: Jairo Arenas MD on 02/22/2025 05:42:28 Dictated By: Jairo Arenas Jr, MD Signed By: <Electronically signed by Jairo Arenas Jr, MD inOV> 02/22/2543 DD/ 1 TD/TT: 02/22/25541 New Media Strategist: [facility] External Provider IMG XR PROCEDURES Edited Result - Final * Influenza A B2 ID NOW ([place]) (02/22/2025 4:57 AM EST) IDNOW SERIAL# [id number] [facility] Influenza A Negative Negative [facility] Influenza B2 Negative Negative [facility] Influenza A B2 Note See Note [facility] Comment:The [place] ID NOW In fluenza A B2 test is used for thequalitative detection of influenza A and B from patientswith signs and symptoms of respiratory infection.Negative results do not preclude influenza virus infectionand should not be used as the sole basis for diagnosis,treatment or other patient management decisions.There is a risk of false negative results due to thepresence of variants in the viral targets of the assay, lowlevels of virus in the specimen and co- infection withRespiratory Syncytial Virus. 02/22/2025 4:57 AM EST 02/22/2025 5:01 AM EST Generic External Data Provider LAB MICROBIOLOGY - GENERAL ORDERABLES Final Result [facility] [address] [place] [phone] * COVID-19 ID NOW ([place]) (02/22/2025 4:57 AM EST) Pathologist [facility] IDNOW SERIAL# [id number] [facility] COVID-19 TEST Negative Negative [facility] COVID-19 NOTE See Note [facility] Comment: Results are for the identification of SARS-CoV2 RNA. TheSARS-CoV2 RNA is generally detectable in respiratory samplesduring the acute phase of infection. Positive results areindicative of the presence of SARS-CoV-2 RNA; clinicalcorrelation with patient history and other diagnosticinformation is necessary to determine patient infectionstatus. Positive results do not rule out bacterial infectionor co- infection with other viruses.Testing facilities within the [facility] and itsterritories are required to report all positive results tothe appropriate public health authorities.Negative results should be treated as presumptive and, ifinconsistent with clinical signs and symptoms or necessaryfor patient management, should be tested with differentauthorized or cleared molecular tests. Negative results donot preclude SARS-CoV2 RNA infection and should not be usedas the sole basis for patient management decisions. Negativeresults should be considered in the context of a patient'srecent exposures, history and the presence of clinical signsand symptoms consistent with COVID-19.This test has been authorized by the FDA under an EmergencyUse Authorization (EUA) for use by authorized laboratories.Testing performed on the [place] ID NOW utilizing NAAT. 02/22/2025 4:57 AM EST 02/22/2025 5:01 AM EST us Generic External Data Provider LAB MOLECULAR [place] GNOSTICS ORDERABLES Final Result [facility] [address] [place] [phone] * (ABNORMAL) CBC auto differential (02/22/2025 4:57 AM EST) Only the most recent of2 resultswithin the time period is included. [facility] White Blood Count 10.8 4.8 - 10.8 X10*3/uL [facility] Red Blood Count 5.04 4.60 - 5.80 X10*6/uL [facility] Hemoglobin 15.6 14.0 - 18.0 g/dl [facility] Hematocrit 45.9 42.0 - 52.0 % [facility] Mean Corpuscular Volume 91.1 80.0 - 98.0 fL [facility] Mean Corpuscular Hemoglobin 31.0 27.0 - 33.0 pg [facility] Mean Corpuscular HGB Conc 34.0 31.0 - 36.0 g/dl [facility] Red Cell Distribution Width 13.0 11.0 - 16.0 % [facility] Platelet Count 227 160 - 400 X10*3/uL [facility] Mean Platelet Volume 11.1 9.4 - 12.4 fL [facility] Neutrophils Percent Auto 65.2 45 - 73 % [facility] Imm Gran Pct Auto 1.6(H) 0.0 - 0.4 % [facility] Lymphocytes Percent Auto 19.0(L) 20 - 40 % [facility] Monocytes Percent Auto 9.3 2 - 11 % [facility] Eosinophils Percent Auto 4.3(H) 0 - 4 % [facility] Basophils Percent Auto 0.6 0 - 2 % [facility] NRBC Pct Auto 0.0 0.0 - 0.2 /100WBC [facility] Neutrophils Absolute Auto 7.1 2.0 - 8.3 x10*3/uL [facility] Imm Gran Abs Auto 0.17(H) 0.00 - 0.03 X10*3/uL [facility] Lymphocytes Absolute Auto 2.1 1.2 - 4.9 X10*3/uL [facility] Monocytes Absolute Auto 1.0 0.1 - 1.2 X10*3/uL [facility] Eosinophils Absolute Auto 0.5(H) 0.0 - 0.4 X10*3/uL [facility] Basophils Absolute Auto 0.1 0.0 - 0.2 X10*3/uL [facility] NRBC Abs Auto 0.000 0.0 - 0.012 X10*3/uL [facility] 02/22/2025 4:57 AM EST 02/22/2025 5:01 AM EST Generic External Data Provider LAB BLOOD ORDERAB LES Final Result Performing Organization Address [facility]/ZIP Co de Phone Number [facility] [address] [place] [phone] * Magnesium (02/22/2025 4:57 AM EST) Only the most recent of2 resultswithin the time period is included. Magnesium 2.1 1.6 - 2.6 mg/dL [facility] 02/22/2025 4:57 AM EST 02/22/2025 5:01 AM EST Generic External Data Provider LAB BLOOD ORDERAB LES Final Result Performing Organization Address [facility] Co de Phone Number [facility] [address] [place] [phone] * (ABNORMAL) Comprehensive Metabolic Panel (02/22/2025 4:57 AM EST) Only the most recent of2 resultswithin the time period is included. Sodium 138 135 - 145 mmol/L [facility] Potassium 4.1 3.3 - 5.1 mmol/L [facility] Chloride 106 96 - 108 mmol/L [facility] Carbon Dioxide 23 22 - 29 mmol/L [facility] Anion Gap 13 12 - 20 [facility] Urea Nitrogen (BUN) 20(H) 9 - 16 mg/dL [facility] Creatinine, Serum 1.10 0.5 - 1.4 mg/dL [facility] Creatinine Clr Calc Pharmacy 81.9 [facility] Comment:eGFR (calculated fro m the MDRD study equation) and eCrCl(calculated from the Cockcroft-Gault equation) are based ondifferent parameters and may not yield comparable results.If eCrCl result is absurd, please check patient'sheight/weight. Estimated Glomerular Filt Rate >60 [facility] Comment:Chronic Kidney Disea se: Estimated GFR < 60 mL/min/1.82z2Ggtuto Kidney Disease: Estimated GFR < 15 mL/min/1.73m2 Glucose 169(H) 60 - 115 mg/dL [facility] Calcium 9.7 8.4 - 10.2 mg/dL [facility] Bilirubin, Total 0.6 0.0 - 1.0 mg/dL [facility] Aspartate Amino Transferase 21 5 - 37 U/L [facility] Alanine Aminotransferase 29 0 - 40 U/L [facility] Total Protein 7.6 6.5 - 8.0 g/dL [facility] Albumin Level 4.4 3.5 - 5.0 g/dL [facility] Alkaline Phosphatase 127(H) 39 - 117 U/L [facility] 02/22/2025 4:57 AM EST 02/22/2025 5:01 AM EST us Generic External Data Provider LAB BLOOD ORDERAB LES Final Result [facility] [address] [place] [phone] * Helicobacter pylori??Antigen, EIA, Stool (01/23/2025 5:35 AM EST) H pylori Ag Stool SEE NOTE [facility] Comment:HELICOBACTER PYLORI AG, EIA, STOOL Micro Number: [id number] Test Status: Final Specimen Source: Stool Specimen Quality: Adequate H.pylori Ag: Not Detected Antimicrobials, proton pump inhibitors, and bismuth preparations inhibit H. pylori and ingestion up to two weeks prior to testing may cause false negative results. If clinically indicated the test should be repeated on a new specimen obtained two weeks after discontinuing treatment. Reference Range: Not DetectedTHIS TEST WAS PERFORMED AT:[facility] [place] [phone] PRINCE MD Stool Rectal contents / Unknown 01/23/2025 5:35 AM EST 01/23/2025 11:21 AM EST us Anibal Lenz MD LAB BODY FLUIDS AND STOOLS ORDER LITO Final Result [facility] [address] [place] [phone] * CT Abdomen Pelvis w/o Contrast (01/19/2025 4:47 PM EST) Anatomical Region Laterality Modality Body, Pelvis, Abdomen Computed T omography 01/19/2025 4:47 PM EST Narrative 01/19/2025 4:49 PM EST [address] [address] [address] Scan Report Signed Patient: Yuri Stokes MR#: [id number] : 1970 Acct:[id number] Age/Sex: 54 / M ADM Date: 01/19/25 Loc: HO.ED Attending Dr: Ordering Physician: Kassandra Al [facility] Date of Service: 01/19/25 Procedure(s): CT abdomen pelvis wo IV con Accession Number(s): [id number] cc: Mirtha Lunsford MD; Kassandra Al [facility] Report Number: [id number]: Total DLP = 639.00 mGy-cm Reason for [...] in OV> 01/19/251647 DD/ 46 TD/TT: 01/19/251646 New Media Strategist: Procedure Note Donotuseinterpreter, Image - 01/19/[address] [place] [address] [address] Scan Report Signed Patient: Yuri Stokes MR#: [id number] : 1970Acct:[id number] Age/Sex: 54 / MADM Date: 01/19/25 Loc: HO.ED Attending Dr: Ordering Physician: Kassandra Al [facility] Date of Service: 01/19/25 Procedure(s): CT abdomen pelvis wo IV con Accession Number(s): [id number] cc: Mirtha Lunsford MD; Kassandra Al [facility] Report Number: [id number]: Total DLP = 639.00 mGy-cm Reason for [...] in OV> 01/19/251647 DD/ 46 TD/TT: 01/19/251646 New Media Strategist: [facility] External Provider IMG CT PROCEDURES Final Result * Lipase (01/19/2025 12:50 PM EST) Pathologist [facility] Lipase 49 8 - 78 U/L [facility] 01/19/2025 12:5 0 PM EST 01/19/2025 12:53 PM EST Generic External Data Provider LAB BLOOD ORDERAB LES Final Result Performing Organization Address [facility] Co de Phone Number [facility] [address] [place] [phone] * Hepatitis C Antibody with Reflex to HCV, RNA, Quantitative, Real-Time PCR (12/22/2024 7:26 AM EDT) Pathologist [facility] Hepatitis C Antibody Nonreactive Nonreactive [facility] Comment:Antibodies to HCV no t detected; does not exclude early acuteHCV infection. Blood Venous blood specimen / Unknown 12/22/2024 7:26 AM EDT 12/22/2024 7:26 AM EDT Mirtha Lunsford MD LAB BLOOD ORDERABLES Final Result Performing Organization Address [facility]/ZIP Co de Phone Number [facility] [address] [place] [phone] * HIV-1/2 Antigen and Antibodies, Fourth Generation, with Reflexes (12/22/2024 7:26 AM EDT) HIV AB/AG Nonreactive Nonreactive [facility] Comment:HIV-1 p24 Ag and/or HIV-1/HIV-2 Ab not detected.A test result that is nonreactive does not exclude thepossibility of exposure to or infection with HIV-1 and/orHIV-2. Nonreactive results in this assay for individualswith prior exposure to HIV-1 and/or HIV-2 may be due toantigen and antibody levels that are below the limit ofdetection of this assay.The [employer] HIV Ag/Ab Combo assay result andsupplemental assay results should be interpreted inconjunction with the patient's clinical presentation,history and other laboratory results. If the results areinconsistent with clinical evidence, additional testing issuggested to confirm the result. Blood Venous blood specimen / Unknown 12/22/2024 7:26 AM EDT 12/22/2024 7:26 AM EDT us Mirtha Lunsford MD LAB BLOOD ORDERABLES Final Result [facility] [address] [place] [phone] * Lipid Panel, Standard (08/26/2023 9:11 AM EDT) Triglycerides 78 <150 mg/dL [facility] Comment:Desirable Triglyceri de: less than 150 mg/dLBorderline High Triglyceride 150-199 mg/dLHigh Triglyceride: 200-499 mg/dLVery High Triglyceride: greater than or equal to 5OO mg/dL Cholesterol 183 <200 mg/dL [facility] Comment:Desirable Cholestero l: less than 200 mg/dLBorderline High Cholesterol: 200-239 mg/dLHigh Cholesterol: greater than 239 mg/dL LDL Cholesterol Calculated 90 <100 mg/dL [facility] Comment:Desirable LDL: less than 100 mg/dLNear Optimal/Above Optimal LDL: 110- 129 mg/dLBorderline High LDL: 130-159 mg/dLHigh LDL: 160-189 mg/dLVery High LDL: greater than or equal to 190 mg/dL HDL Cholesterol 78 >40 mg/dL [facility] Comment:Desirable HDL: great er than 40 mg/dL Note: This HDL assay may give artificially low results in patients with liver disease. 08/26/2023 9:11 AM EDT 08/26/2023 11:07 AM EDT Mirtha Lunsford MD LAB BLOOD ORDERABLES Final Result [facility] [address] [place] [phone] * (ABNORMAL) Colonoscopy (07/08/2023) Colonoscopy Abnormal( A) Normal Comment:Multiple polyps with Dr. Pisano, repeat 1 year Historical Provider HEALTH MAINTENANCE Edited Result - Final from Last 3 Months or Most Recently Relevant to Health Maintenance Insurance [facility] C3 DENTAL-[facility] MEDICAID STAND ADULT Advance Directives Documents on File Type Date Recorded Patient Employee Relations Representative Expl anation Advance Directives and Living Will 12/19/2023 Health Care Proxy 12/19/23 Care Teams Jewelry Jobber Relationship Specialty Start Date End Date Jonn, MD Mirtha [address] [place] [address] PCP - General Family Medicine 03/04/15 [place] Radford, GypsyD [address] [place] [address] Pharmacist Internal Medicine 08/03/22 Acosta Sinha FNP [address] [place] [address] Nurse Practitioner Family Medicine 01/17/23 Flip Wan MD [address] [place] [address] Pulmonary Disease 02/02/24 Dmitri Sequeira MD [address] [place] [address] Nephrology 02/10/24 Stephane Pisano MD [address] 3rd [place] [address] General Surgery 02/10/24 Melvin Claros MD 596 [place] [address] Cardiology 04/16/24 Artur Aguilar MD [address] [place] [address] Endocrinology 05/31/24 Suzette Bond MD [address] [place] [address] Orthopaedic Surgery 10/03/24June,Joyce Hoover PA-C Lung Cancer Screening Program Radiology 07/31/24 Bess Moyer Clerical GraderPlodding Machine Operator 03/07/25
--- OUTSIDE RECORDS SUMMARY | 2025-04-02 12:23 | XMS_ITS | Encounter Summary ---
Author Organization [employer] Address 75 [facility] 7t [place] [address] Care Team Providers Care Java Web Developer Name Role Phone Mirtha Lunsford MD Primary Care Provider Victoria Radford PharmD Unavailable Acosta Sinha CROCHETER Unavailable Unavailable Flip Wan MD Unavailable [phone] Dmitri Sequeira MD Unavailable Stephane Pisano MD Unavailable Melvin Claros MD Unavailable Artur Aguilar MD Unavailable Suzette Bond MD Unavailable [phone] Amelia Rodrigez Unavailable Reason for Visit * Reason Comments Med Refill Encounter Details Date Type Department Care Team (Late st Contact Info) Description 11/15/2022 Refill [facility] CHC MED & PEDS [address] [place], [place] [address] Mirtha Lunsford MD 230 [place], [place] [phone] Seasonal allergies Social History Tobacco Use Types [...] documented as of this encounter Care Teams Java Web Developer Relationship Specialty Start Date End Date Mirtha Lunsford MD [address] [place] [address] PCP - General Family Medicine 03/04/15 Victoria Radford, PharmD [address] [place] [address] Pharmacist Internal Medicine 08/03/22 Acosta Sinha FNP [address] [place] [address] Nurse Practitioner Family Medicine 01/17/23 Flip Wan MD [address] [place] [address] Pulmonary Disease 02/02/24 Dmitri Sequeira MD 100 [facility] 200 [place] [address] Nephrology 02/10/24 Stephane Pisano MD 11 [facility] 3rd [place] [address] General Surgery 02/10/24 Melvin Claros MD 596 [place] [address] Cardiology 04/16/24 Artur Aguilar MD [address] [place] [address] Endocrinology 05/31/24 Suzette Bond MD [address] [place] [address] Orthopaedic Surgery 10/03/24 Amelia Rodrigez 02/25/25 03/15/25 NARAYAN LICEA High Risk Case ManagerPaper Box Maker 01/06/23 02/06/24 Ghassan Fletcher High Risk Case ManagerPaper Box Maker 02/07/24 03/06/25 Kenzie,Joyce Hoover PA-C Lung Cancer Screening Program Radiology 07/31/24 Bess Moyer High Risk Case ManagerPaper Box Maker 03/07/25 documented as of this encounter
--- OUTSIDE RECORDS SUMMARY | 2025-04-02 12:23 | XMS_ITS | Encounter Summary ---
Author Organization [employer] Address 75 [facility] 7t [place] [address] Care Team Providers Care Certified Control Systems Technician Name Role Phone Mirtha Lnusford MD Primary Care Provider Victoria Radford PharmD Unavailable Acosta Sinha FIELD ARTILLERY OPERATIONS MAN Unavailable Unavailable Flip Wan MD Unavailable [phone] Dmitri Sequeira MD Unavailable [phone] Stephane Pisano MD Unavailable Melvin Claros MD Unavailable Artur Aguilar MD Unavailable Suzette Bond MD Unavailable Amelia Rodrigez Unavailable Reason for Visit * Reason Comments Med Refill Encounter Details Date Type Department Care Team (Late st Contact Info) Description 11/13/2022 Refill [facility] [address] [place] [phone] Mirtha Lunsford MD 230 [place], [place] [phone] Essential hypertension (Primary Dx) Social History Tobacco [...] Pressure 118/72( 026 9:15 AM EST) No Victoira Mayo, PharmD documented as of this encounter Visit Diagnoses Diagnosis Essential hypertension- Primary Unspecified essential hypertension documented in this encounter Additional Health Concerns Assessment Noted Time PHQ-9 Depression Total Score: 10 023 3:38 PM EDT documented as of this encounter Care Teams Certified Control Systems Technician Relationship Specialty Start Date End Date Mirtha Lunsford MD [address] [place] [address] PCP - General Family Medicine 03/04/15 Victoria Radford, PharmD [address] [place] [address] Pharmacist Internal Medicine 08/03/22 Acosta Sinha FNP [address] [place] [address] Nurse Practitioner Family Medicine 01/17/23 Flip Wan MD [address] [place] [address] Pulmonary Disease 02/02/24 Dmitri Sequeira MD [address] [address] Nephrology 02/10/24 Stephane Pisano MD [address] [place] [address] 3rd [place] [address] General Surgery 02/10/24 Melvin Claros MD 596 [place] [address] Cardiology 04/16/24 Artur Aguilar MD [address] [place] [address] Endocrinology 05/31/24 Suzette Bond MD [address] [place] [address] Orthopaedic Surgery 10/03/24 Amelia Rodrigez 02/25/25 03/15/25 NARAYAN LICEA Fermenting Cellars ReceiverSeconds Grader 01/06/23 02/06/24 Ghassan Fletcher Fermenting Cellars ReceiverSeconds Grader 02/07/24 03/06/25June,Joyce Hoover PA-C Lung Cancer Screening Program Radiology 07/31/24 Bess Moyer Fermenting Cellars ReceiverSeconds Grader 03/07/25 documented as of this encounter
--- OUTSIDE RECORDS SUMMARY | 2025-04-02 12:23 | XMS_ITS | Encounter Summary ---
Author Organization [employer] Address 75 [facility] 7t [place] [address] Care Team Providers Care Special Events Fundraiser Name Role Phone Mirtha Lunsford MD Primary Care Provider Victoria Radford PharmD Unavailable Acosta Sinha Unavailable Unavailable Flip Wan MD Unavailable [phone] Dmitri Sequeira MD Unavailable [phone] Stephane Pisano MD Unavailable Melvin Claros MD Unavailable [phone] Artur Aguilar MD Unavailable Suzette Bond MD Unavailable [phone] Reason for Visit * Reason Comments Med Refill Encounter Details Date Type Department Care Team (Late st Contact Info) Description 04/02/2025 Refill [facility] CHC MED & PEDS [address] [place] [address] Mirtha Lunsford MD 230 [place] [address] Chronic bilateral low back pain, unspecified whether [...] Time PHQ-9 Depression Total Score: 0 06/19/19 9:06 AM EDT documented as of this encounter Care Teams Special Events Fundraiser Relationship Specialty Start Date End Date Mirtha Lunsford MD 230 [place] [address] PCP - General Family Medicine 03/04/15 Victoria Radford, GypsyD [address] [place] [address] Pharmacist Internal Medicine 08/03/22 Acosta Sinha FNP 230 [place], [place] Nurse Practitioner Family Medicine 01/17/23 Flip Wan MD 5 [place] [address] Pulmonary Disease 02/02/24 Dmitri Sequeira MD [address] [place] [address] 200 [place] [address] Nephrology 02/10/24 Stephane Pisano MD 11 [facility] 3rd [place] [address] General Surgery 02/10/24 Melvin Claros MD 596 [place] [address] Cardiology 04/16/24 Artur Aguilar MD [address] [place] [address] Endocrinology 05/31/24 Suzette Bond MD [address] [place] [address] Orthopaedic Surgery 10/03/24 Kenzie,Joyce Hoover PA-C Lung Cancer Screening Program Radiology 07/31/24 Bess Moyer Sleep ManagerDock Pumper 03/07/25 documented as of this encounter
--- OUTSIDE RECORDS SUMMARY | 2025-04-02 12:24 | XMS_ITS | Clinical Summary ---
Author Organization [facility] Address [address] [facility] [address] [address] [place] [address] [place] [address] Phone Care Team Providers Care Drain Cleaner Name Role Phone Demetri Tavia Primary Care Provider [phone] Allergies Active Allergy Reactions Criticality Noted Date [...] plan. Moderate persistent asthma 02/24/202211/18 Overview (11/18/2022): -breading machine tender Dr. Wan -continue Flovent -continue Singulair -continue albuterol prn Last Assessment & Plan: -breading machine tender Dr. Wan -continue Flovent -continue Singulair -continue [...] Date Smoking Tobacco: Every Day Cigarettes 0.3 43.1 Started: 02/21/1982 Alcohol Use Standard Drinks/Week Comments [...] 10/24/2014, 06/25/2014, Additional history exists Insurance Medicaid [place] Medicaid [place] Care Teams Drain Cleaner Relationship Specialty Start Date End Date [facility] 230 [facility] [place] [address] PCP - General 04/29/22
--- OUTSIDE RECORDS SUMMARY | 2025-04-02 12:24 | XMS_ITS | Encounter Summary ---
Author Organization [employer] Address [address] [facility] [address] 7t [place] [address] Care Team Providers Care Ground Instructor Advanced Name Role Phone Mirtha Lunsford MD Primary Care Provider Victoria Radford PharmD Unavailable Acosta Sinha Unavailable Unavailable Flip Wan MD Unavailable [phone] Dmitri Sequeira MD Unavailable Stephane Pisano MD Unavailable [phone] Melvin Claros MD Unavailable [phone] Artur Aguilar MD Unavailable [phone] Suzette Bond MD Unavailable [phone] Amelia Rodrigez Unavailable Reason for Visit * Reason Comments Med Refill Encounter Details Date Type Department Care Team (Late st Contact Info) Description 05/08/2024 Refill [facility] 230 [place], [place] [phone] Mirtha Lusnford MD 230 [place], [place] [phone] Social History Tobacco Use Types Packs/Day Years [...] documented as of this encounter Care Teams Ground Instructor Advanced Relationship Specialty Start Date End Date Mirtha Lunsford MD 230 [place] [address] PCP - General Family Medicine 03/04/15 Victoria Radford PharmD 230 [place] [address] Pharmacist Internal Medicine 08/03/22 Acosta Sinha FNP 230 [place] [address] Nurse Practitioner Family Medicine 01/17/23 Flip Wan MD 5 [place] [address] Pulmonary Disease 02/02/24 Dmitri Sequeira MD [address] [place] [address] Nephrology 02/10/24 Stephane Pisano MD 11 [facility] 3rd [place] [address] General Surgery 02/10/24 Melvin Claros MD 596 [place] [address] Cardiology 04/16/24 Artur Aguilar MD [address] [place] [address] Endocrinology 05/31/24 Suzette Bond MD [address] [facility] [address] [place] [address] Orthopaedic Surgery 10/03/24 Amelia Rodrigez 02/25/25 03/15/25 Ghassan Fletcher Telephone SurveyorVice President Tax 02/07/24 03/06/25June,Joyce Hoover PA-C Lung Cancer Screening Program Radiology 07/31/24 Bess Moyer Telephone SurveyorVice President Tax 03/07/25 documented as of this encounter
--- OUTSIDE RECORDS SUMMARY | 2025-04-02 12:24 | XMS_ITS | Encounter Summary ---
Author Organization [employer] [facility] Address 75 [facility] 7t [place] [address] Care Team Providers Care Pari Mutual Ticket Checker Name Role Phone Mirtha Lunsford MD Primary Care Provider [phone] Victoria Radford PharmD Unavailable Acosta Sinha MANAGER PART Unavailable Unavailable Flip Wan MD Unavailable [phone] Dmitri Sequeira MD Unavailable Stephane Pisano MD Unavailable Melvin Claros MD Unavailable [phone] Artur Aguilar MD Unavailable Suzette Bond MD Unavailable Amelia Rodrigez Unavailable Encounter Details Date Type Department Care Team (Latest Contact Info) Description 07/03/2018 Abstract [facility] CONVERSIONS Dental, Provider, DDS Social History [...] on filedocumented in this encounter Care Teams Pari Mutual Ticket Checker Relationship Specialty Start Date End Date Mirtha Lunsford MD [address] [place] [phone] PCP - General Family Medicine 03/04/15 Victoria Radford PharmD 230 [place] [address] Pharmacist Internal Medicine 08/03/22 Acosta Sinha FNP 230 [place] [address] Nurse Practitioner Family Medicine 01/17/23 Flip Wan MD 5 [place] [address] Pulmonary Disease 02/02/24 Dmitri Sequeira MD 100 [facility] 200 [place] [address] Nephrology 02/10/24 Stephane Pisano MD [address] 3rd [place] [address] General Surgery 02/10/24 Melvin Claros MD 596 [place] [address] Cardiology 04/16/24 Artur Aguilar MD [address] [place] [address] Endocrinology 05/31/24 Suzette Bond MD [address] [place] [address] Orthopaedic Surgery 10/03/24 Amelia Rodrigez 02/25/25 03/15/25 NARAYAN LICEA Brattice BuilderDialysis Social Worker 01/06/23 02/06/24 Ghassan Fletcher Brattice BuilderDialysis Social Worker 02/07/24 03/06/25June,Joyce Hoover PA-C Lung Cancer Screening Program Radiology 07/31/24 Bess Moyer Brattice BuilderDialysis Social Worker 03/07/25 documented as of this encounter
--- OUTSIDE RECORDS SUMMARY | 2025-04-02 12:24 | XMS_ITS | Encounter Summary ---
Author Organization [employer] Address 75 [facility] 7t [place] [address] Care Team Providers Care Batter Scaler Name Role Phone Mirtha Lunsford MD Primary Care Provider Victoria Radford PharmD Unavailable Acosta Sinha PHOTOFLASH POWDER MIXER Unavailable Unavailable Flip Wan MD Unavailable [phone] Dmitri Sequeira MD Unavailable [phone] Stephane Pisano MD Unavailable [phone] Melvin Claros MD Unavailable Artur Aguilar MD Unavailable [phone] Suzette Bond MD Unavailable [phone] Amelia Rodrigez Unavailable Encounter Details Date Type Department Care Team (Late st Contact Info) Description 05/14/2024 Orders Only [facility] MEDICINE 230 [place], [place] [phone] Mirtha Lunsford MD 230 [place], [place] [phone] Class 1 obesity due to excess calories [...] documented as of this encounter Care Teams Batter Scaler Relationship Specialty Start Date End Date Mirtha Lunsford MD 230 [place] [address] PCP - General Family Medicine 03/04/15 Victoria Radford PharmD 230 [place] [address] Pharmacist Internal Medicine 08/03/22 Acosta Sinha FNP [address] [place] [address] Nurse Practitioner Family Medicine 01/17/23 Flip Wan MD 5 [place] [address] Pulmonary Disease 02/02/24 Dmitri Sequeira MD [address] [address] Nephrology 02/10/24 Stephane Pisano MD 11 [facility] 3rd [place] [address] General Surgery 02/10/24 Melvin Claros MD 596 [place] [address] Cardiology 04/16/24 Artur Aguilar MD [address] [place] [address] Endocrinology 05/31/24 Suzette Bond MD [address] [facility] [address] [place] [address] Orthopaedic Surgery 10/03/24 mAelia Rodrigez 02/25/25 03/15/25 Ghassan Fletcher Innovation ManagerCsr Retail 02/07/24 03/06/25June,Joyce Hoover PA-C Lung Cancer Screening Program Radiology 07/31/24 Bess Moyer Innovation ManagerCsr Retail 03/07/25 documented as of this encounter
--- OUTSIDE RECORDS SUMMARY | 2025-04-02 12:24 | XMS_ITS | Encounter Summary ---
Author Organization [employer] [facility] Address 75 [facility] 7t [place] [address] Care Team Providers Care Boilermaking Supervisor Name Role Phone Mirtha Lunsford MD Primary Care Provider [phone] Victoria Radford PharmD Unavailable [phone] Acosta Sinha PHYSICAL THERAPIST AIDE Unavailable Unavailable Flip Wan MD Unavailable [phone] Dmitri Sequeira MD Unavailable Stephane Pisano MD Unavailable Melvin Claros MD Unavailable [phone] Artur Aguilar MD Unavailable [phone] Suzette Bond MD Unavailable [phone] Amelia Rodrigez Unavailable Encounter Details Date Type Department Care Team (Latest Contact Info) Description 07/25/2020 Abstract [facility] CONVERSIONS Dental, Provider, DDS Social History Tobacco [...] on filedocumented in this encounter Care Teams Boilermaking Supervisor Relationship Specialty Start Date End Date Mirtha Lunsford MD [address] [place] [address] PCP - General Family Medicine 03/04/15 Victoria Rafdord PharmD 230 [place] [address] Pharmacist Internal Medicine 08/03/22 Acosta Sinha FNP 230 [place] [address] Nurse Practitioner Family Medicine 01/17/23 Flip Wan MD 5 [place] [address] Pulmonary Disease 02/02/24 Dmitri Sequeira MD 100 [facility] 200 [place] [address] Nephrology 02/10/24 Stephane Pisano MD [address] 3rd [place] [address] General Surgery 02/10/24 Melvin Claros MD 596 [place] [address] Cardiology 04/16/24 Artur Aguilar MD [address] [place] [address] Endocrinology 05/31/24 Suzette Bond MD [address] [place] [address] Orthopaedic Surgery 10/03/24 Amelia Rodrigez 02/25/25 03/15/25 NARAYAN LICEA Railroad Supervisor Of EnginesPaper Inserter 01/06/23 02/06/24 Ghassan Fletcher Railroad Supervisor Of EnginesPaper Inserter 02/07/24 03/06/25June,Joyce Hoover PA-C Lung Cancer Screening Program Radiology 07/31/24 Bess Moyer Railroad Supervisor Of EnginesPaper Inserter 03/07/25 documented as of this encounter
--- OUTSIDE RECORDS SUMMARY | 2025-04-02 12:24 | XMS_ITS | Encounter Summary ---
Author Organization [employer] Address 75 [facility] 7t [place] [address] Care Team Providers Care Range Rider Name Role Phone Mirtha Lunsford MD Primary Care Provider Victoria Radford PharmD Unavailable Acosta Sinha SUPPLY CHAIN GENERALIST Unavailable Unavailable Flip Wan MD Unavailable [phone] Dmitri Sequeira MD Unavailable Stephane Pisano MD Unavailable Melvin Claros MD Unavailable [phone] Artur Aguilar MD Unavailable [phone] Suzette Bond MD Unavailable Amelia Rodrigez Unavailable Encounter Details Date Type Department Care Team (Late st Contact Info) Description 09/08/2022 Abstract [facility] MEDICINE 230 [place], [place] [phone] Mirtha Lunsford MD 230 [place] [address] Social History Tobacco Use Types Packs/Day Years [...] documented as of this encounter Care Teams Range Rider Relationship Specialty Start Date End Date Mirtha Lunsford MD [address] [place] [address] PCP - General Family Medicine 03/04/15 Victoria Radford, PharmD [address] [place] [address] Pharmacist Internal Medicine 08/03/22 Acosta Sinha FNP [address] [place] [address] Nurse Practitioner Family Medicine 01/17/23 Flip Wan MD [address] [place] [address] Pulmonary Disease 02/02/24 Dmitri Sequeira MD [address] [place] [address] Nephrology 02/10/24 Stephane Pisano MD 11 [facility] 3rd [place] [address] General Surgery 02/10/24 Melvin Claros MD 596 [place] [address] Cardiology 04/16/24 Artur Aguilar MD [address] [place] [address] Endocrinology 05/31/24 Suzette Bond MD [address] [place] [address] Orthopaedic Surgery 10/03/24 Amelia Rodrigez 02/25/25 03/15/25 NARAYAN LICEA Combination Machine TenderSolderer Dipper 01/06/23 02/06/24 Ghassan Fletcher Combination Machine TenderSolderer Dipper 02/07/24 03/06/25 May,Joyce Hoover PA-C Lung Cancer Screening Program Radiology 07/31/24 Bess Moyer Combination Machine TenderSolderer Dipper 03/07/25 documented as of this encounter
--- OUTSIDE RECORDS SUMMARY | 2025-04-02 12:24 | XMS_ITS | Encounter Summary ---
Author Organization [employer] Address [address] [facility] [address] 7t [place] [address] Care Team Providers Care Hat Marker Name Role Phone Mirtha Lunsford MD Primary Care Provider Victoria Radford PharmD Unavailable Acosta Sinha Unavailable Unavailable Flip Wan MD Unavailable [phone] Dmitri Sequeira MD Unavailable Stephane Pisano MD Unavailable Melvin Claros MD Unavailable Artur Aguilar MD Unavailable Suzette Bond MD Unavailable [phone] Amelia Rodrigez Unavailable Reason for Visit * Reason Comments Med Refill Encounter Details Date Type Department Care Team (Late st Contact Info) Description 01/22/2025 Refill [facility] 230 [place], [place] [phone] Mirtha Lunsford MD 230 [place], [place] [phone] Chronic bilateral low back pain, unspecified whether [...] documented as of this encounter Care Teams Hat Marker Relationship Specialty Start Date End Date Mirtha Lunsford MD [address] [place] [address] PCP - General Family Medicine 03/04/15 Victoria Radford, GypsyD [address] [place] [address] Pharmacist Internal Medicine 08/03/22 Acosta Sinha FNP [address] [place] [address] Nurse Practitioner Family Medicine 01/17/23 Flip Wan MD 5 [place] [address] Pulmonary Disease 02/02/24 Dmitri Sequeira MD 100 [facility] 200 [place] [address] Nephrology 02/10/24 Stephane Pisano MD [address] 3rd [place] [address] General Surgery 02/10/24 Melvin Claros MD 596 [place] [address] Cardiology 04/16/24 Artur Aguilar MD [address] [place] [address] Endocrinology 05/31/24 Suzette Bond MD [address] [place] [address] Orthopaedic Surgery 10/03/24 Amelia Rodrigez 02/25/25 03/15/25 Ghassan Fletcher Snout PullerMushroom Growing Supervisor 02/07/24 03/06/25June,Joyce Hoover PA-C Lung Cancer Screening Program Radiology 07/31/24 Bess Moyer Snout PullerMushroom Growing Supervisor 03/07/25 documented as of this encounter
--- OUTSIDE RECORDS SUMMARY | 2025-04-02 12:24 | XMS_ITS | Encounter Summary ---
Author Organization [employer] Address 75 [facility] 7t [place] [address] Care Team Providers Care Cattle And Wheat Farmer Name Role Phone Mirtha Lunsford MD Primary Care Provider Victoria Radford PharmD Unavailable Acosta Sinha Unavailable Unavailable Flip Wan MD Unavailable [phone] Dmitri Sequeira MD Unavailable Stephane iPsano MD Unavailable [phone] Melvin Claros MD Unavailable Artur Aguilar MD Unavailable Suzette Bond MD Unavailable Amelia Rodrigez Unavailable Reason for Visit * Reason Comments Med Refill Encounter Details Date Type Department Care Team (Late st Contact Info) Description 04/03/2024 Refill [facility] 230 [place], [place] [phone] Mirtha Lunsford MD 230 [place], [place] [phone] Mild intermittent asthma without complication Social History [...] t he electric, gas, oil or water [employer] threatened to shut off services in your [...] documented as of this encounter Care Teams Cattle And Wheat Farmer Relationship Specialty Start Date End Date Mirtha Lunsford MD 230 [place] [address] PCP - General Family Medicine 03/04/15 Victoria Radford PharmD [address] [place] [address] Pharmacist Internal Medicine 08/03/22 Acosta Sinha FNP [address] [place] [address] Nurse Practitioner Family Medicine 01/17/23 Flip Wan MD [address] [place] [address] Pulmonary Disease 02/02/24 Dmitri Sequeira MD 100 [facility] 200 [place] [address] Nephrology 02/10/24 Stephane Pisano MD 11 [facility] 3rd [place] [address] General Surgery 02/10/24 Melvin Claros MD 596 [place] [address] Cardiology 04/16/24 Artur Aguilar MD [address] [place] [address] Endocrinology 05/31/24 Suzette Bond MD [address] [place] [address] Orthopaedic Surgery 10/03/24 Amelia Rodrigez 02/25/25 03/15/25 Ghassan Fletcher Agent Based ModelerApparatus Engineering Technologist 02/07/24 03/06/25June,Joyce Hoover PA-C Lung Cancer Screening Program Radiology 07/31/24 Bess Moyer Agent Based ModelerApparatus Engineering Technologist 03/07/25 documented as of this encounter
--- OUTSIDE RECORDS SUMMARY | 2025-04-02 12:24 | XMS_ITS | Encounter Summary ---
Author Organization [employer] Address 75 [facility] 7t [place] [address] Care Team Providers Care Family Medicine Physician Name Role Phone Mirtha Lunsford MD Primary Care Provider Victoria Radford PharmD Unavailable Acosta Sinha Unavailable Unavailable Flip Wan MD Unavailable [phone] Dmitri Sequeira MD Unavailable [phone] Stephane Pisano MD Unavailable [phone] Melvin Claros MD Unavailable Artur Aguilar MD Unavailable [phone] Suzette Bond MD Unavailable [phone] Amelia Rodrigez Unavailable Reason for Visit * Reason Comments Med Refill Encounter Details Date Type Department Care Team (Late st Contact Info) Description 01/04/2024 Refill [facility] MEDICINE 230 [place], [place] [phone] Shayla Ferrer DO 230 [place], [place] [phone] Social History Tobacco Use Types Packs/Day Years [...] as of this encounter Care Teams Family Medicine Physician Relationship Specialty Start Date End Date Mirtha Lunsford MD 230 [place] [address] PCP - General Family Medicine 03/04/15 Victoria Radford, Duy 230 [place] [address] Pharmacist Internal Medicine 08/03/22 Acosta Sinha FNP 230 [place], [place] Nurse Practitioner Family Medicine 01/17/23 Flip Wan MD 5 [place] [address] Pulmonary Disease 02/02/24 Dmitri Sequeira MD [address] [place] [address] 200 [place] [address] Nephrology 02/10/24 Stephane Pisano MD 11 [facility] 3rd [place] [address] General Surgery 02/10/24 Melvin Claros MD 596 [place] [address] Cardiology 04/16/24 Artur Aguilar MD [address] [place] [address] Endocrinology 05/31/24 Suzette Bond MD [address] [facility] [address] [place] [address] Orthopaedic Surgery 10/03/24 Amelia Rodrigez 02/25/25 03/15/25 NARAYAN LICEA Orthopedically Impaired TeacherFountain Jerk 01/06/23 02/06/24 Ghassan Fletcher Orthopedically Impaired TeacherFountain Jerk 02/07/24 03/06/25June,Joyce Hoover PA-C Lung Cancer Screening Program Radiology 07/31/24 Bess Moyer Orthopedically Impaired TeacherFountain Jerk 03/07/25 documented as of this encounter
--- OUTSIDE RECORDS SUMMARY | 2025-04-02 12:24 | XMS_ITS | Encounter Summary ---
Author Organization [employer] Address 75 [facility] 7t [place] [address] Care Team Providers Care Options Trader Name Role Phone Mirtha Lunsford MD Primary Care Provider + [phone] Victoria Radford PharmD Unavailable [phone] Acosta Sinha CYLINDER PRESS OPERATOR Unavailable Unavailable Flip Wan MD Unavailable Dmitri Sequeira MD Unavailable [phone] Stephane Pisano MD Unavailable Melvin Claros MD Unavailable [phone] Artur Aguilar MD Unavailable [phone] Suzette Bond MD Unavailable [phone] Amelia Rodrigez Unavailable Reason for Referral * Consultation (Routine) - Closed Specialty Diagnoses / Procedures Referred By Contjoe t Referred To Contact Nutrition Diagnoses Class 1 obesity due to excess calories with serious comorbidity and body mass index (BMI) of 33.0 to 33.9 in adult Kalli Henderson MD 230 [place] [address] Phone: tel: fax: Referral ID Status Reason Start Date Expiration Date V isits Requested Visits Authorized [id number] Closed Consult and Treat 05/10/2024 05/10/2025 1 1 Encounter Details Date Type Department Care Team (Late st Contact Info) Description 05/10/2024 Orders Only [facility] MEDICINE [address] [place] [address] [phone] Kalli Henderson MD 230 [place] [address] Class 1 obesity due to excess calories [...] as of this encounter Plan of Treatment Scheduled Referrals Name Type Priority Associated Diagnoses [...] Pressure 118/72( 026 9:15 AM EST) No Petes-Victoria Swanson, PharmD Reduce tobacco use [...] documented as of this encounter Care Teams Options Trader Relationship Specialty Start Date End Date Mirtha Lunsford MD [address] [place] [address] PCP - General Family Medicine 03/04/15 PetesVictoria Duran, PharmD [address] [place] [address] Pharmacist Internal Medicine 08/03/22 Acosta Sinha FNP [address] [place] [address] Nurse Practitioner Family Medicine 01/17/23 Flip Wan MD [address] [place] [address] Pulmonary Disease 02/02/24 Dmitri Sequeira MD [address] 200 [place] [address] Nephrology 02/10/24 Stephane Pisano MD [address] 3rd [place] [address] General Surgery 02/10/24 Melvin Claros MD 596 [place] [address] Cardiology 04/16/24 Artur Aguilar MD [address] [place] [address] Endocrinology 05/31/24 Suzette Bond MD [address] [place] [address] Orthopaedic Surgery 10/03/24 Amelia Rodrigez 02/25/25 03/15/25 Ghassan Fletcher Clamshell EngineerLine Erector 02/07/24 03/06/25June,Joyce Hoover PA-C Lung Cancer Screening Program Radiology 07/31/24 Bess Moyer Clamshell EngineerLine Erector 03/07/25 documented as of this encounter
--- OUTSIDE RECORDS SUMMARY | 2025-04-02 12:24 | XMS_ITS | Encounter Summary ---
Author Organization [employer] Address 75 [facility] 7t [place] [address] Care Team Providers Care Battery Filler Name Role Phone Mirtha Lunsford MD Primary Care Provider [phone] Victoria Radford PharmD Unavailable Acosta Sinha EDITING CLERK Unavailable Unavailable Flip Wan MD Unavailable [phone] Dmitri Sequeira MD Unavailable Stephane Pisano MD Unavailable Melvin Claros MD Unavailable [phone] Atrur Aguilar MD Unavailable [phone] Suzette Bond MD Unavailable [phone] Amelia Rodrigez Unavailable Encounter Details Date Type Department Care Team (Late st Contact Info) Description 08/24/2023 Abstract [facility] MEDICINE 230 [place], [place] [phone] Mirtha Lunsford MD 230 [place], [place] [phone] Social History Tobacco Use Types Packs/Day Years [...] documented as of this encounter Care Teams Battery Filler Relationship Specialty Start Date End Date Mirtha Lunsford MD [address] [place] [address] PCP - General Family Medicine 03/04/15 Victoria Radford PharmD 230 [place] [address] Pharmacist Internal Medicine 08/03/22 Acosta Sinha FNP 230 [place] [address] Nurse Practitioner Family Medicine 01/17/23 Flip Wan MD 5 [place] [address] Pulmonary Disease 02/02/24 Dmitri Sequeira MD [address] [phone] Nephrology 02/10/24 Stephane Pisano MD [address] 3rd [place] [address] General Surgery 02/10/24 Melvin Claros MD 596 [place] [address] Cardiology 04/16/24 Artur Aguilar MD [address] [place] [address] Endocrinology 05/31/24 Suzette Bond MD [address] [place] [address] Orthopaedic Surgery 10/03/24 Amelia Rodrigez 02/25/25 03/15/25 NARAYAN LICEA Laborer Pie BakeryManager Harbor 01/06/23 02/06/24 Ghassan Fletcher Laborer Pie BakeryManager Harbor 02/07/24 03/06/25 Joyce Espino PA-C Lung Cancer Screening Program Radiology 07/31/24 Bess Moeyr Laborer Pie BakeryManager Harbor 03/07/25 documented as of this encounter
--- OUTSIDE RECORDS SUMMARY | 2025-04-02 12:24 | XMS_ITS | Patient Health Record ---
Author Organization [facility] Address [address] [place] [address] Phone [phone] Care Team Providers Care Campus Dean Name Role Phone Aníbal Mooney M.D., Aleksandr Unavailable Reason For Referral No Information Social History Sex Observation Social History Observation Description Sex Observation Male Plan Of Treatment No Information
--- OUTSIDE RECORDS SUMMARY | 2025-04-02 12:24 | XMS_ITS | Encounter Summary ---
Author Organization [employer] Address 75 [facility] 7t [place] [address] Care Team Providers Care Casting Tester Name Role Phone Mirtha Lunsford MD Primary Care Provider Victoria Radford PharmD Unavailable Acosta Sinha Unavailable Unavailable Flip Wan MD Unavailable Dmitri Sequeira MD Unavailable Stephane Pisano MD Unavailable [phone] Melvin Claros MD Unavailable [phone] Artur Aguilar MD Unavailable Suzette Bond MD Unavailable Amelia Rodrigez Unavailable Reason for Visit * Reason Comments Med Refill Encounter Details Date Type Department Care Team (Late st Contact Info) Description 12/29/2023 Refill [facility] MEDICINE 230 [place], [place] [phone] Anya Muller, ANKIT 230 [place], [place] [phone] Essential hypertension Social History Tobacco Use Types [...] documented as of this encounter Care Teams Casting Tester Relationship Specialty Start Date End Date Mirtha Lunsford MD 230 [place] [address] PCP - General Family Medicine 03/04/15 Victoria Radford, Duy 230 [place] [address] Pharmacist Internal Medicine 08/03/22 Acosta Sinha FNP 230 [place], [place] Nurse Practitioner Family Medicine 01/17/23 Flip Wan MD 5 [place] [address] Pulmonary Disease 02/02/24 Dmitri Sequeira MD [address] [place] [address] 200 [place] [address] Nephrology 02/10/24 Stephane Pisano MD 11 [facility] 3rd [place] [address] General Surgery 02/10/24 Melvin Claros MD 596 [place] [address] Cardiology 04/16/24 Artur Aguilar MD [address] [place] [address] Endocrinology 05/31/24 Suzette Bond MD [address] [facility] [address] [place] [address] Orthopaedic Surgery 10/03/24 Amelia Rodrigez 02/25/25 03/15/25 NARAYAN LICEA Concrete Paving Machine OperatorSeo Executive 01/06/23 02/06/24 Ghassan Fletcher Concrete Paving Machine OperatorSeo Executive 02/07/24 03/06/25June,Joyce Hoover PA-C Lung Cancer Screening Program Radiology 07/31/24 Bess Moyer Concrete Paving Machine OperatorSeo Executive 03/07/25 documented as of this encounter
--- OUTSIDE RECORDS SUMMARY | 2025-04-02 12:24 | XMS_ITS | Encounter Summary ---
Author Organization [employer] Address [address] [facility] [address] 7t [place] [address] Care Team Providers Care Metal Mockup Maker Name Role Phone Mirtha Lunsford MD Primary Care Provider + [phone] Victoria Radford PharmD Unavailable Acosta Sinha Unavailable Unavailable Flip Wan MD Unavailable [phone] Dmitri Sequeira MD Unavailable [phone] Stephane Pisano MD Unavailable [phone] Melvin Claros MD Unavailable [phone] Artur Aguilar MD Unavailable [phone] Szuette Bond MD Unavailable [phone] Amelia Rodrigez Unavailable Reason for Visit * Reason Comments Med Refill Encounter Details Date Type Department Care Team (Late st Contact Info) Description 02/02/2023 Refill [facility] MEDICINE 230 [place], [place] [phone] Acosta Sinha FNP Social History Tobacco Use [...] the past 12 months, has t he [employer], [employer], oil or water [employer] threatened to shut off services in your [...] 118/72( 026 9:15 AM EST) No Victoria Mayo PharmD documented as of this encounter Visit Diagnoses Not on filedocumented in this encounter Additional Health Concerns Assessment Noted Time PHQ-9 Depression Total Score: 10 023 3:38 PM EDT documented as of this encounter Care Teams Metal Mockup Maker Relationship Specialty Start Date End Date Mirtha Lunsford MD 230 [place] [address] PCP - General Family Medicine 03/04/15 Victoria Radford, PharmD [address] [place] [address] Pharmacist Internal Medicine 08/03/22 Acosta Sinha FNP [address] [place] [address] Nurse Practitioner Family Medicine 01/17/23 Flip Wan MD [address] [place] [address] Pulmonary Disease 02/02/24 Dmitri Sequeira MD [address] 200 [place] [address] Nephrology 02/10/24 Stephane Pisano MD [address] 3rd [place] [address] General Surgery 02/10/24 Melvin Claros MD 596 [place] [address] Cardiology 04/16/24 Artur Aguilar MD [address] [place] [address] Endocrinology 05/31/24 Suzette Bond MD [address] [place] [address] Orthopaedic Surgery 10/03/24 Amelia Rodrigez 02/25/25 03/15/25 NARAYAN LICEA Volcanology ProfessorSmokehouse Worker 01/06/23 02/06/24 Ghassan Fletcher Volcanology ProfessorSmokehouse Worker 02/07/24 03/06/25 Joyce Espino PA-C Lung Cancer Screening Program Radiology 07/31/24 Bess Moyer Volcanology ProfessorSmokehouse Worker 03/07/25 documented as of this encounter
--- OUTSIDE RECORDS SUMMARY | 2025-04-02 12:24 | XMS_ITS | Clinical Summary ---
Author Organization [facility] Address 175 [place] [address] Phone Care Team Providers Care Entrepreneur Name Role Phone Lucrecia Pitt MD Primary Care Provider [phone] Medications ketoconazole (NIZORAL) 2 % cream Apply topically 1 (one) time each day. 30 g 2 Active Surgical History Surgery Date Site/Laterality Comments NECK [...] 02/15/2018 Social Influencers of Health Screening 03/18/2023 COVID-19 Vaccine ( season) 2024 11/10/2023, 01/24/2023, 02/18/2022, Additional history exists Influenza Vaccine (#1) 2024 , 11/01/2022, 02/18/2022, Additional history exists DTaP,Tdap,and Td Vaccines (4 - Td or Tdap) 10/24/2024 10/24/2014, 11/15/2011, 05/26/2007 Depression Screening 02/21/2025 Hypertension/CHF/CAD Annual BMP Blood Test 08/30/2025 08/30/2024, [...] topic Insurance MEDICAID - [place] Care Teams Entrepreneur Relationship Specialty Start Date End Date Lucrecia Pitt MD 230 [facility] 1 [place] [address] PCP - General 09/23/22
--- OUTSIDE RECORDS SUMMARY | 2025-04-02 12:24 | XMS_ITS | Encounter Summary ---
Author Organization [employer] Address 75 [facility] 7t [place] [address] Care Team Providers Care Exterior Interior Specialist Name Role Phone Mirtha Lunsford MD Primary Care Provider Victoria Radford PharmD Unavailable [phone] Acosta Sinha Unavailable Unavailable Flip Wan MD Unavailable [phone] Dmitri Sequeira MD Unavailable Stephane Pisano MD Unavailable Melvin Claros MD Unavailable Artur Aguilar MD Unavailable [phone] Szuette Bond MD Unavailable Amelia Rodrigez Unavailable Reason for Visit * Reason Comments Med Refill Encounter Details Date Type Department Care Team (Late st Contact Info) Description 04/12/[address] [facility] MEDICINE 230 [place], [place] [phone] Mirtha Lunsford MD 230 [place], [place] [phone] Moderate persistent asthma without complication Social History [...] t he electric, gas, oil or water [employer] threatened to shut off services in your [...] documented as of this encounter Care Teams Exterior Interior Specialist Relationship Specialty Start Date End Date Mirtha Lunsford MD 230 [place] [address] PCP - General Family Medicine 03/04/15 Victoria Radford PharmD [address] [place] [address] Pharmacist Internal Medicine 08/03/22 Acosta Sinha FNP [address] [place] [address] Nurse Practitioner Family Medicine 01/17/23 Flip Wan MD [address] [place] [address] Pulmonary Disease 02/02/24 Dmitri Sequeira MD 100 [facility] 200 [place] [address] Nephrology 02/10/24 Stephane Pisano MD 11 [facility] 3rd [place] [address] General Surgery 02/10/24 Melvin Claros MD 596 [place] [address] Cardiology 04/16/24 Artur Aguilar MD [address] [place] [address] Endocrinology 05/31/24 Suzette Bond MD [address] [place] [address] Orthopaedic Surgery 10/03/24 Amelia Rodrigez 02/25/25 03/15/25 hGassan Fletcher Chorus DancerDirect Service Professional 02/07/24 03/06/25June,Joyce Hoover PA-C Lung Cancer Screening Program Radiology 07/31/24 Bess Moyer Chorus DancerDirect Service Professional 03/07/25 documented as of this encounter
--- OUTSIDE RECORDS SUMMARY | 2025-04-02 12:24 | XMS_ITS | Encounter Summary ---
Author Organization [employer] Address 75 [facility] 7t [place] [address] Care Team Providers Care Development Mechanic Name Role Phone Mirtha Lunsford MD Primary Care Provider Victoria Radford PharmD Unavailable Acosta Sinha Unavailable Unavailable Flip Wan MD Unavailable [phone] Dmitri Sequeira MD Unavailable Stephane Pisano MD Unavailable [phone] Melvin Claros MD Unavailable Artur Aguilar MD Unavailable [phone] Suzette Bond MD Unavailable Amelia Rodrigez Unavailable Reason for Visit * Reason Comments Med Refill Encounter Details Date Type Department Care Team (Late st Contact Info) Description 09/06/[address] [facility] MEDICINE 230 [place], [place] [phone] Mirtha Lunsford MD 230 [place], [place] [phone] Social History Tobacco Use Types Packs/Day Years [...] Pressure 118/72( 026 9:15 AM EST) No Petes-Chase fu, Victoria, PharmD Reduce tobacco use (cigarettes, smokeless, etc) Tobacco Use No Piers-Gambl e, Victoria, PharmD documented as of this encounter Visit Diagnoses Not on filedocumented in this encounter Additional Health Concerns Assessment Noted Time PHQ-9 Depression Total Score: 0 06/17/19 24 9:26 AM EDT documented as of this encounter Care Teams Development Mechanic Relationship Specialty Start Date End Date Mirtha Lunsford MD [address] [place] [address] PCP - General Family Medicine 03/04/15 PetesVictoria Duran, PharmD 230 [place] [address] Pharmacist Internal Medicine 08/03/22 Acosta Sinha FNP 230 [place] [address] Nurse Practitioner Family Medicine 01/17/23 Flip Wan MD 5 [place] [address] Pulmonary Disease 02/02/24 Dmitri Sequeira MD 100 [facility] 200 [place] [address] Nephrology 02/10/24 Stephane Pisano MD 11 [facility] 3rd [place] [address] General Surgery 02/10/24 Melvin Claros MD 596 [place] [address] Cardiology 04/16/24 Artur Aguilar MD [address] [place] [address] Endocrinology 05/31/24 Suzette Bond MD [address] [place] [address] Orthopaedic Surgery 10/03/24 Amelia Rodrigez 02/25/25 03/15/25 NARAYAN LICEA Account TechnicianAgricultural Economist 01/06/23 02/06/24 Ghassan Fletcher Account TechnicianAgricultural Economist 02/07/24 03/06/25 Joyce Espino PA-C Lung Cancer Screening Program Radiology 07/31/24 Bess Moyer Account TechnicianAgricultural Economist 03/07/25 documented as of this encounter
== END 2025-01-11 00:01 | disposition home or self-care (01) ==
LOC: CF
PROVIDERS: PCP Family Medicine; Visit Provider Surgery
DX: N48.1 Balanitis (principal); F52.4 Premature ejaculation; Z86.0101 Personal history of adenomatous and serrated colon polyps
CPT/HCPCS: 99202

== ENCOUNTER 2025-01-11 10:09 | Outpatient (AMB) | payer MEDICAID, SELFPAY ==
--- NOTE | 2025-01-11 10:17 | MHC.OFFVIS ---
Intake Visit Reasons: Circumcision consult Intake Note: New Patient Is Present for Circumcision Consultation Urology Med: None Antibiotic Allergy: Levofloxacin Blood Thinner: None Pt feels like he has excess foreskin, which he thinks is getting worse and would like to look into cicumcision PSA 12/22/24- 1.84 Factory Clerk Required: No Accompanied by: Self / Same As Patient Allergies Iodinated Contrast Media Allergy (Severe, Verified 01/11/25 10:20) Unknown levofloxacin Allergy (Mild, Verified 01/11/25 10:20) Rash ibuprofen (From MOTRIN) Allergy (Unknown, Verified 01/11/25 10:20) KIDNEY ISSUES mushroom Adverse Reaction (Mild, Verified 01/11/25 10:20) VOMITING amlodipine Adverse Reaction (Unknown, Verified 01/11/25 10:20) Swelling HPI Comments Details: Yuri is a pleasant male. 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 This causes disruptive stream. 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 Arthritis Surgical History History of hand surgery History of rectal sphincterotomy History of hydrocelectomy History of colonoscopy History of left nephrectomy H/O neck surgery Previous back surgery Family History Mother Hypertension Asthma Father Medical history unknown Social History Household Members: None Housing: Apartment Do you presently have visiting nurse or other home services: No Alcohol intake: current Alcohol intake frequency: holidays/special occasions only Alcohol type: beer Patient Tobacco Use Status: Current everyday Tobacco user Tobacco use type: Cigarette Years Smoked: (onset 18, 1ppd x 36yrs, 30+PYH) e-Cigarette/Vaping Use: Former Use Second Hand Smoke Exposure: No service: No Current occupational status: unemployed 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 Review of Systems Const Denies chills and Denies fever(s) Card Reports no additional complaints and Denies syncope Resp Denies cough GI Denies abdominal pain and Denies heartburn Reports as per HPI and Denies change in libido Neuro Denies syncope Psych Denies change in libido Endo Denies change in libido Physical Exam Const General: cooperative, healthy appearing, comfortable and no acute distress Orientation/consciousness: patient oriented x3 HEENT Face and sinus: Yes normal facial exam Mouth: moist mucous membranes Neck Neck: Yes normal visual inspection, Yes full ROM and Yes trachea midline Chest Chest palpation & inspection: normal inspection of the chest Resp Effort & Inspection: normal respiratory effort, able to speak in complete sentences and no respiratory distress GI Inspection: Yes normal to inspection Back/Spine/Pelvis Cervical Spine: normal cervical lordosis Thoracic/Lumbar Spine: thoracic and lumbar spine normal to inspection Skin General skin exam: no rashes or lesions noted Neuro General: patient oriented x3, gait normal, tone normal and moves all extremities Extrem General: Yes normal to inspection and Yes capillary refill normal Assessment & Plan Assessment & Plan (1) Balanitis: Code(s): N48.1 - Balanitis Category: Medical (2) Premature ejaculation: Code(s): F52.4 - Premature ejaculation Category: Medical Plan Risks, benefits and alternatives to therapy were discussed. These include but are not limited to infection, bleeding, damage to local organs and tissues, need for further interventions. Anesthetic risks regarding cardiac arrhythmia, blood clots, and potential mortality were discussed. The patient understands the typical recovery time and the outpatient nature of the procedure. After consideration of these risks the patient gives full informed consent and they wish to move ahead with the procedure. Circumcision Patient Instructions: This note is constructed using voice recognition software. While every effort has been made to ensure accuracy assistant professor of radiology errors may have been included. Imaging studies, laboratory and physical exam results were discussed and reviewed in detail. No major barriers to patient understanding were identified. An opportunity to ask questions regarding the treatment plan was provided. All questions were answered. The patient expressed understanding and agreement with the above treatment plan. The patient is aware they should contact our office by phone for worsening of their current condition or the appearance of new urologic symptoms. Compliance is encouraged with any medications and followup testing that is ordered. It is a privilege to participate in the urologic care of your patient. If you have any questions or concerns regarding treatment for the above conditions, or other urologic issues, please do not hesitate to contact me. The office telephone contact is [phone]. Sincerely, Dr Pieter Caceres MD, [facility] - Urology Compassionate Specialist Care for the Genitourinary System Coding Level of Care Code New Pt Level 4 (77393) Diagnoses Balanitis N48.1 Premature ejaculation F52.4
== END 2025-01-11 10:40 | disposition home or self-care (01) ==
LOC: HO.HUSH 10:10
PROVIDERS: Visit Provider Urology
DX: N48.1 Balanitis (principal); F52.4 Premature ejaculation
CPT/HCPCS: 99204

== ENCOUNTER 2025-01-19 11:58 | Emergency (ER) | payer MEDICAID, SELFPAY ==
--- NOTE | ~2025-01-19 | CT_ITS ---
CLINICAL HISTORY: Gen. Abd Pain Exam: Nonenhanced CT abdomen and pelvis with multiplanar reformats. Comparison: 09/13/2022. Findings: CT abdomen: Lung bases are clear. Liver is free of focal lesions and ductal dilatation. Gallbladder is unremarkable. Spleen is unremarkable. Pancreas and left adrenal gland appear unremarkable. Right adrenal gland reveals a stable 2.2 cm low-density adrenal nodule (4; 180, 3 Hounsfield units), likely stable adenoma. Left kidney is absent. Right kidney appears unremarkable. No free intraperitoneal fluid or retroperitoneal masses or adenopathy. Abdominal aorta is normal caliber with minimal calcific athero sclerosis. Bowel loops reveal no abnormal wall thickening or distention. The appendix is unremarkable. Minimal colonic diverticulosis is present, without CT evidence of diverticulitis. CT pelvis: Prostate gland and seminal vesicles are stable. Urinary bladder is free of gross filling defects. No pelvic masses, fluid or adenopathy. Osseous structures reveal no destructive osseous lesions. Impression: 1. No acute abnormalities or CT explanation for reported history of abdominal pain. 2. Stable right adrenal nodule/adenoma. This document has been electronically signed by: James Winkler MD on 01/19/2025 16:47:53
[2025-01-19 12:09] VITALS: BP 134/82; PULSE 92; RESP 20; TEMP 35.6; O2SAT 96; BMI 36.0
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
[2025-01-19 12:53] LABS: MANUAL DIFF FLAG NO
[2025-01-19 12:55] LABS: Hematocrit 47.5 % (42.0-52.0); Hemoglobin 15.9 g/dl (14.0-18.0); Imm Gran Abs Auto 0.21 X10*3/uL (0.00-0.03); Imm Gran Pct Auto 1.7 % (0.0-0.4); Lymphocytes Absolute Auto 1.9 X10*3/uL (1.2-4.9); Mean Corpuscular HGB Conc 33.5 g/dl (31.0-36.0); Mean Corpuscular Hemoglobin 30.9 pg (27.0-33.0); Mean Corpuscular Volume 92.4 fL (80.0-98.0); NRBC Abs Auto 0.000 X10*3/uL (0.0-0.012); NRBC Pct Auto 0.0 /100WBC (0.0-0.2); Platelet Count 233 X10*3/uL (160-400); Red Blood Count 5.14 X10*6/uL (4.60-5.80); White Blood Count 12.1 X10*3/uL (4.8-10.8)
[2025-01-19 13:20] LABS: Alanine Aminotransferase 43 U/L (0-40); Albumin Level 4.6 g/dL (3.5-5.0); Alkaline Phosphatase 122 U/L (39-117); Anion Gap 15 (12-20); Aspartate Amino Transferase 29 U/L (5-37); Blood Urea Nitrogen 26 mg/dL (9-16); Calcium 9.7 mg/dL (8.4-10.2); Carbon Dioxide 24 mmol/L (22-29); Chloride 104 mmol/L (96-108); Creatinine Clr Calc Pharmacy 71.2; Estimated Glomerular Filt Rate 58; Lipase 49 U/L (8-78); Magnesium 2.4 mg/dL (1.6-2.6); Potassium 4.9 mmol/L (3.3-5.1); Sodium 138 mmol/L (135-145); Total Protein 7.6 g/dL (6.5-8.0)
--- OUTSIDE RECORDS SUMMARY | 2025-01-19 14:20 | XMS_ITS | Encounter Summary ---
Author Organization [employer] Address [address] [facility] [address] [place] [address] Care Team Providers Care [place] Commissioner Name Role Phone Mirtha Lunsford MD Primary Care Provider Victoria Radford PharmD Unavailable Acosta Sinha Unavailable Unavailable Flip Wan MD Unavailable [phone] Dmitri Sequeira MD Unavailable [phone] Stephane Pisano MD Unavailable [phone] Melvin Claros MD Unavailable Artur Aguilar MD Unavailable Suzette Bond MD Unavailable Reason for Visit * Reason Comments Med Refill Encounter Details Date Type Department Care Team (Late st Contact Info) Description 11/15/2022 Refill [facility] [address] [place] [address] Mirtha Lunsford MD [address] [place] [address] Seasonal allergies Social History Tobacco Use Types [...] Description 02/11/2025 8:00 AM EST Office Visit [facility] [address] [place] [address] Rebecca Capps documented as of this encounter Goals Goal Patient Goal Type Associated Problems Recent Progress Patient-Stated? Author Blood Pressure < 140/90 Blood Pressure 128/82( 025 9:35 AM EST) No Victoria Mayo, GypsyD documented as of this encounter Visit Diagnoses Diagnosis Seasonal allergies Allergic rhinitis, cause unspecified documented in this encounter Additional Health Concerns Assessment Noted Time PHQ-9 Depression Total Score: 10 023 3:38 PM EDT documented as of this encounter Care Teams [place] Commissioner Relationship Specialty Start Date End Date Mirtha Lunsford MD [address] [place] [address] PCP - General Family Medicine 03/04/15 Victoria Radford, PharmD [address] [place] [address] Pharmacist Internal Medicine 08/03/22 Acosta Sinha FNP [address] [place] [address] Nurse Practitioner Family Medicine 01/17/23 Flip Wan MD [address] [place] [address] Pulmonary Disease 02/02/24 Dmitri Sequeira MD [address] [id number] Nephrology 02/10/24 Stephane Pisano MD [address] [facility] 3rd [place] [address] General Surgery 02/10/24 Melvin Claros MD [address] [place] [address] Cardiology 04/16/24 Artur Aguilar MD [address] [place] [address] Endocrinology 05/31/24 Suzette Bond MD [address] [place] [address] Orthopaedic Surgery 10/03/24 NARAYAN LICEA [employer] 01/06/23 02/06/24 Ghassan Fletcher [employer] Manager 02/07/24June,Joyce Hoover PA-C Lung Cancer Screening Program Radiology 07/31/24 documented as of this encounter
--- OUTSIDE RECORDS SUMMARY | 2025-01-19 14:20 | XMS_ITS | Clinical Summary ---
Author Organization [employer] Address [address] [facility] [address] [place] [address] Care Team Providers Care Employee Benefits Administrator Name Role Phone Mirtha Lunsford MD Primary Care Provider [phone] Victoria Radford PharmD Unavailable Acosta Sinha Unavailable Unavailable Flip Wan MD Unavailable [phone] Dmitri Sequeira MD Unavailable Stephane Pisano MD Unavailable [phone] Melvin Claros MD Unavailable [phone] Artur Aguilar MD Unavailable [phone] Suzette Bond MD Unavailable Allergies Active Allergy [...] AT BEDTIME 90 tablet 1 023 Active omalizumab (Xolair) 150 MG/ML injectionIndica tions:Moderate [...] or chew. 90 tablet 3 025 Active atorvastatin (Lipitor) 80 MG tabletIndicatio ns:Dyslipidemia TAKE 1 TABLET BY MOUTH EVERY MORNING 90 tablet 1 025 Active loratadine (Claritin) 10 MG tabletIndicatio ns:Seasonal allergies TAKE 1 TABLET BY MOUTH EVERY MORNING 90 tablet 1 025 Active Diclofenac Sodium 1 % gel Apply 2 g topically if needed in the morning, at noon, in the evening, and at bedtime (pain). 150 g 1 025 Active neomycin-bacitr acin-polymyxin (Neosporin) 5-400-5000 ointmentIndicat ions:Insect bite of right upper arm, initial encounter Apply topically 4 times daily. 14.2 g 025 Active albuterol (Ventolin HFA) 108 (90 Base) MCG/ACT inhalerIndicati ons:Moderate persistent asthma with acute exacerbation INHALE 2 PUFFS BY MOUTH EVERY 4 HOURS NEEDED FOR WHEEZING OR SHORTNESS OF BREATH 18 g 1 025 Active albuterol (2.5 MG/3ML) 0.083% nebulizer solutionIndicat ions:Moderate persistent asthma with acute exacerbation Take 3 mL by nebulization every 4 (four) hours if needed for wheezing. 75 mL 2 025 Active lidocaine (Lidoderm) 5 % patchIndication s:Sacroiliac joint dysfunction APPLY 1 PATCH TOPICALLY TO SKIN, LEAVE ON FOR 12 HOURS AND OFF FOR 12 HOURS DIRECTED 30 patch 1 025 Active mometasone (Elocon) 0.1 % creamIndication s:Rash APPLY TO THE AFFECTED AREA(S) TOPICALLY EVERY DAY 45 g 1 025 Active Combivent Respimat 20-100 MCG/ACT inhalerIndicati ons:Mild intermittent asthma without complication INHALE 1 PUFF 4 TIMES A DAY, MAY TAKE ADDITIONAL PUFFS NEEDED. (MAX OF 6 PUFFS PER DAY) 4 g 7 025 Active pregabalin (Lyrica) 150 MG capsuleIndicati ons:Chronic bilateral low back pain, unspecified whether sciatica present TAKE 1 CAPSULE BY MOUTH TWICE DAILY IN THE MORNING AND IN THE EVENING 60 capsule 025 Active predniSONE (Deltasone) 10 MG tablet Take 4 tablets (40 mg) by mouth Once per day for 3 days, THEN 3 tablets (30 mg) Once per day for 3 days, THEN 2 tablets (20 mg) Once per day for 3 days, THEN 1 tablet (10 mg) Once per day for 3 days. 30 tablet 5 1:44 PM EST 2024 Active acetaminophen (Tylenol 8 Hour) 650 MG ER tablet Take 1 tablet (650 mg) by mouth every 8 (eight) hours if needed for mild pain. Do not crush, chew, or split. 50 tablet 1 5 1:44 PM EST 2025 Active clotrimazole (Lotrimin) 1 % cream Apply topically 2 times daily. 30 g 1 5 1:44 PM EST Active baclofen (Lioresal) 10 MG tabletIndicatio ns:Sacroiliac joint dysfunction TAKE 1 TABLET BY MOUTH THREE TIMES DAILY IN THE MORNING, AT NOON, AND AT BEDTIME NEEDED FOR MUSCLE SPASMS 60 tablet 1 025 Active Combivent Respimat 20-100 MCG/ACT inhalerIndicati ons:Mild intermittent asthma without complication INHALE 1 PUFF BY INHALATION ROUTE 4 TIMES EVERY DAY MAY TAKE ADDITIONAL PUFFS NEEDED NOT TO EXCEED 6 PUFFS IN 24HRS 4 g 7 025 2024 Discontinued acetaminophen (Tylenol 8 Hour) 650 MG ER tablet Take 1 tablet (650 mg) by mouth every 8 (eight) hours if needed for mild pain. Do not crush, chew, or split. 50 tablet 1 025 2024 Discontinued(R eorder (will not trigger notification to Pharmacy)) baclofen (Lioresal) 10 MG tabletIndicatio ns:Sacroiliac joint [...] THE EVENING 60 capsule 025 2024 Discontinued Active Problems Problem Noted Date Diagnosed Date Dental caries 11/22/2024 Fractured dental congregational with loss of materi al 11/22/2024 Multiple [...] pain 04/16/2024 Overview (11/19/2024): -Patient followed at [facility] with Dr. Agueda Claros DO. [...] and nutrition interventions discussed. -Patient followed at [facility] with Dr. Ageuda Claros DO. Seen 11/28/24 echo and stress [...] retention. I spoke with JULIETA Wood at [facility] pain clinic and they want the last CT scan faxed at [phone], they will fu with patient this week. Order lumbar MRI ro cord compromise Other specified health status 07/02/2022 Overview (06/18/2024): -next physical exam due after 06/18/25 -eye care facilitated by [facility] -dental home is [facility] -health care proxy filed 12/19/23 Assessment & Plan (06/18/2024 3:03 PM EDT): -next physical exam due after 06/18/25 -eye care facilitated by [facility] -dental home is [facility] -health care proxy filed 12/19/23 Assessment & Plan (12/19/2023 9:30 AM EDT): -next physical exam due after 05/29/2024 -eye care facilitated by [facility] -dental home is [facility] -health care proxy filed 12/19/23 Assessment & Plan (05/30/2023 10:13 AM EDT): -next physical exam due after 02/28/2023 -eye care facilitated by [facility] -dental home is [facility] -health care proxy given on [...] benign adenoma. Biochemical workup showed mass not press secretary including dexamethasone suppression test. Repeat CT [...] benign adenoma. Biochemical workup showed mass not press secretary including dexamethasone suppression test. Repeat CT [...] benign adenoma. Biochemical workup showed mass not press secretary including dexamethasone suppression test. Repeat CT done 2019. Follow up Dr. Aguilar 1 year recommended. -referral placed 05/30/23 Assessment & Plan (01/24/2023 9:53 AM EST): Seen by Dr. Aguilar 05/08/2021 (prior was followed by Dr. Moseley) Hx incidental finding right adrenal nodule found in CT preformed in ER Feb 2018 c/w benign adenoma. Biochemical workup showed mass not press secretary including dexamethasone suppression test. Repeat CT [...] plan. 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 Wan seen 02/02/24 -Well controlled on current regimen of Xolair, Combivent, Advair, albuterol MDI. 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 Wan seen 02/02/24 -Well controlled on current regimen of Xolair, Combivent, Advair, albuterol MDI. 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 Wan seen 02/02/24 -Well controlled on current regimen of Xolair, Combivent, Advair, albuterol MDI. 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 Wan seen 02/02/24 -Well controlled on current regimen of Xolair, Combivent, Advair, albuterol MDI. 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 Wan seen 12/2022 -Well controlled on current regimen of Xolair, Combivent, Advair, albuterol MDI. 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 Wan seen 12/2022 -Well controlled on current regimen of Xolair, Combivent, Advair, albuterol MDI. Continue current Assessment & Plan (12/20/2022 8:01 PM EDT): Few wheezing on lung exam,reports feeling well -offered NBZ tx here but refuse states will get at home ,and got pump tx before coming that may cause elevated HR -continue his regular inh and montelukast -continue care w laborer bituminous paving -planned apt for next month -advised to get booster for COVID 19 at vaccine clinic, pt s/p p20 and flu vaccine already Assessment & Plan (11/01/2022 9:02 AM EDT): -laborer bituminous paving Dr. Wan -continue Flovent -continue Singulair -continue albuterol prn Assessment & Plan (06/28/2022 10:09 AM EDT): Normal lung exam. advised to call Dr. Wan, his laborer bituminous paving, for kristan't. continue Flovent, Singulair, may use [...] Essential hypertension 08/19/2020 Overview (11/19/2024): -followed by [facility] -echo 03/31/23 [...] Plan (12/17/2024 10:58 AM EDT): -followed by [facility] -echo 03/31/23 EF 60-65% no changes compared to02/2017 -Blood pressure is slightly above goal, recommended monitoring at home. -Continue lifestyle modifications -Continue current medications -cardiology note from 04/12/23, no changes, follow up 6 months Assessment & Plan (06/18/2024 3:06 PM EDT): -followed by [facility] -echo 03/31/23 EF 60-65% no changes compared to02/2017 -Blood pressure is slightly above goal, recommended monitoring at home. -Continue lifestyle modifications -Continue current medications -cardiology note from 04/12/23, no changes, follow up 6 months Assessment & Plan (11/03/2023 10:12 AM EDT): -followed by [facility] -echo 03/31/23 EF 60-65% no changes compared to02/2017 -Blood pressure is at goal -Continue lifestyle modifications -Continue current medications -cardiology note from 04/12/23, no changes, follow up 6 months Assessment & Plan (05/30/2023 12:31 PM EDT): -followed by [facility] -echo 03/31/23 [...] goal -Continue lifestyle modifications -Continue current medications Recurrent major depressive disorder, in partial remission 03/09/2012 Overview (06/29/2023): -Followed by psychiatric prescriber [...] -atorvastatin increased from 40mg to 80mg by [facility] 08/2023 -continue lifestyle modifications Assessment & Plan (12/17/2024 10:58 AM EDT): Lab Results Component Value Date CHOL 183 08/26/2023 CHOL 237 (H) 05/30/2023 TRIG 78 08/26/2023 TRIG 139 05/30/2023 TRIG 159 (H) 03/05/2022 HDL 78 08/26/2023 HDL 79 05/30/2023 LDLCHOLCAL 90 08/26/2023 LDLCHOLCAL 131 (H) 05/30/2023 -atorvastatin increased from 40mg to 80mg by [facility] 08/2023 -continue lifestyle modifications Assessment & Plan [...] as pharmacomtherapy, [facility], and [facility] pharmacy smoking cessation clinic -14mg and [...] as pharmacomtherapy, [facility] smoking [facility] group, and [facility] pharmacy smoking cessation clinic -14mg and [...] as pharmacomtherapy, [facility] smoking [facility], and [facility] pharmacy smoking cessation clinic -14mg and [...] diet and exercise,discussed healthy life style -discussed pvc monitor referral -referred today Acute dehydration 09/23/2022 10/27/2022 [...] 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 Acute idiopathic gout involv ing toe of [...] 10/27/2022 Absent kidney 08/19/2020 02/10/2024 Rheumatoid arthritis ([facility]) 08/19/2020 10/27/2022 Nicotine dependence 08/19/2020 07/03/19 Mild intermittent asthma 11/22/2016 Episodic opioid dependence ([facility]) 03/09/2012 07/02/2022 Encounters Date Type Department Care Team Description 01/19/2025 Orders Only GENERIC EXTERNAL DATA DEPARTMENT Provider, Generic External Data 01/19/2025 Refill [facility] [address] [place] [id number] Mirtha Lunsford MD Rash 01/17/2025 Refill [facility] [address] [place] [phone] Mirtha Lunsford MD Dyslipidemia 01/09/2025 Refill [facility] [address] [phone] Mirtha Lunsford MD Sacroiliac joint dysfunction 01/07/2025 9:40 AM EST Office Visit [facility] [address] [place] [phone] Anibal Lenz MD Pain of upper abdomen (Primary Dx); Acute gouty arthritis; Rash 01/07/2025 Telephone [facility] [address] [place] [phone] Mirtha Lunsford MD Care Coordination 01/07/2025 Travel 12/27/2024 Refill [facility] [address] [phone] Mirtha Lunsford MD Chronic bilateral low back pain, unspecified whether sciatica present 12/23/2024 Refill [facility] [address] [place] [phone] Mirtha Lunsford MD Mild intermittent asthma without complication 12/17/2024 10:45 AM EDT Office Visit [address] [phone] Mirtha Lunsford MD Dyslipidemia (Primary Dx); Moderate persistent asthma without complication; Prostate cancer screening; Routine screening for STI (sexually transmitted infection); Essential hypertension; Class 1 obesity due to excess calories with serious comorbidity and body mass index (BMI) of 33.0 to 33.9 in adult 12/17/2024 Travel 12/14/[address] [phone] Mirtha Lunsford MD chart prep 11/30/2024 Refill [facility] [address] [address] Mirtha Lunsford MD Chronic bilateral low back pain, unspecified whether sciatica present 11/22/2024 9:30 AM EDT Office Visit [facility] [address] [place] [phone] Elmer Lopez DDS Fractured dental congregational with loss of material (Primary Dx); Dental caries 11/19/2024 3:15 PM EDT Office Visit [address] [phone] Kitty Funk NP Moderate persistent asthma with exacerbation (Primary Dx) 11/19/2024 Travel 11/18/[address] [place] [address] Mirtha Lunsford MD Sacroiliac joint dysfunction; Rash 11/08/2024 Refill [facility] [address] [place] [phone] Nabil ShaylaDO Sacroiliac joint dysfunction 10/26/2024 Refill [facility] [address] [place] [phone] Mirtha Lunsford MD Chronic bilateral low back pain, unspecified whether sciatica present 10/24/2024 Orders Only [facility] [address] [place] [phone] Provider, MD Thalia Essential hypertension (Primary Dx) 10/23/2024 6:40 PM EDT Office Visit [facility] [address] [address] Leonora Quintero CNP Insect bite of right upper arm, initial encounter (Primary Dx); Moderate persistent asthma with acute exacerbation; Cervical radiculopathy 10/23/2024 Travel from Last 3 Months Immunizations Immunization Administration [...] Sign Reading Time Taken Comments Blood Pressure 128/82 01/07/2025 9:35 AM EST Pulse 100 01/07/2025 9:35 AM EST Temperature 36.9 C (98.4 F) 01/07/2025 9:35 AM EST Respiratory Rate 18 01/07/2025 9:35 AM EST Oxygen Saturation 97% 01/07/2025 9:35 AM EST Inhaled Oxygen Concentration - - Weight 99.8 kg (220 lb) 01/07/2025 9:35 AM EST Height 172.7 cm (5' 8 ) 10/23/2024 6:19 PM EDT Body Mass Index 33.45 10/23/2024 6:19 PM EDT Plan of Treatment Upcoming Encounters Date Type Department Care Team (Late st Contact Info) Description 02/11/2025 8:00 AM EST Office Visit [facility] [address] [place] [address] Rebecca Capps Health Maintenance Due Date Last Done Comments CT Colonography 1968 FIT DNA/Cologuard 1968 FIT 1968 FOBT 1968 Sigmoidoscopy 1968 RSV Patients and Patients Aged 60 years or older (1 - Risk 50-74 years 1-dose series) 02/15/2018 Colonoscopy 08/23/2024 08/24/2023, 06/21, 07/08/2023, Additional history exists Colorectal Cancer Screening 08/23/2024 COVID-19 Vaccine (2024- season) 2024 11/10/2023, 01/24/2023, 02/18/2022, Additional history exists Dental X-Ray: Bitewings 01/16/2025 01/16/20 24, 04/15/2021, 03/26/2021, Additional history exists Dental Oral Exam 01/19/2025 07/18/2024, , 07/25/2020, Additional history exists Dental Prophylaxis 01/19/2025 07/18/2024, 1 03/17/2023, 07/25/2020, Additional history exists SDOH Screening 06/06/2025 06/06/2024 Depression Screening 06/18/2025 06/18/2024, 06/19/19 Disability Screening 06/18/2025 06/18/2024 Alcohol/Substance Use Screening 12/17/2025 12/17/2024 Tobacco Screening 01/07/2026 01/07/2025 Dental X-Ray: Full Mouth 01/16/202701/15/ 024, 07/25/2020, 07/25/2020, Additional history exists Lipid Panel 08/25/2028 08/26/2023, 0409/2023, 03/05/2022 DTaP/Tdap/Td Vaccines (3 - Td or Tdap) 12/20/2034 12/20/2024, 10/24/2014, 11/15/2011, Additional history exists Zoster Vaccines Completed 04/27/2021, 2021 Pneumococcal Vaccine: 50+ Years Completed 11/01/2022, 10/24/2014, 06/25/2014, Additional history exists Hepatitis B Vaccines Completed 01/24/2023, 08/02/2022, 06/28/2022 Hepatitis A Vaccines Completed 05/30/2023, 11/01/2022, 06/28/2022 Influenza Vaccine Completed 12/20/2024, , 11/01/2022, Additional history exists HIV Screening Completed 12/22/2024, 08/2024, 05/30/2023, Additional history exists Hepatitis C Screening Completed 12/22/2024 , 02/28/2024, 05/30/2023, Additional history exists HIB Vaccines Aged Out [...] Pressure 128/82( 025 9:35 AM EST) No Piers-Gambl e, Victoria, PharmD Reduce tobacco use (cigarettes, smokeless, etc) Tobacco Use No Piers-Gambl e, Victoria, PharmD Procedures Procedure Name Priority Date/Time Associated Diagnosis Comments LIPASE Routine 01/19/2025 12:50 PM EST MAGNESIUM Routine 01/19/2025 12:50 PM EST COMPREHENSIVE METABOLIC PANEL Routine 01/19/2025 12:50 PM EST CBC WITH AUTO DIFFERENTIAL Routine 01/19/2025 12:50 PM EST SYPHILIS SCREEN Routine 12/22/2024 7:26 AM EDT Routine screening for STI (sexually transmitted infection) HIV 1/2 ANTIGEN/ANTIBODY, FOURTH GENERATION W/RFL Routine 12/22/2024 7:26 AM EDT Routine screening for STI (sexually transmitted infection) HEPATITIS C AB W/REFL TO HCV RNA, QN, PCR Routine 12/22/2024 7:26 AM EDT Routine screening for STI (sexually transmitted infection) PSA, TOTAL Routine 12/22/2024 7:26 AM EDT Prostate cancer screening CHLAMYDIA/TRICHOMONAS/ NEISSERIA GONORRHOEAE, PCR, URINE Routine 12/22/2024 7:22 AM EDT Routine screening for STI (sexually transmitted infection) 5 MOB RESIN-BASED COMPOSITE - 3 SURF, POSTERIOR Routine 11/22/2024 9:30 AM EDT CASE PRESENTATION, DETAILED AND EXTENSIVE TREATMENT PLANNING Routine 11/22/2024 9:30 AM EDT 7 ML RESIN-BASED COMPOSITE - 2 SURF, ANTERIOR Routine 11/22/2024 9:30 AM EDT PROPHYLAXIS - ADULT Routine 07/18/2024 8 :00 AM EDT Dental calculus Dental plaque PERIODIC ORAL EVALUATION - ESTABLISHED PATIENT Routine 07/18/2024 8:00 AM EDT INTRAORAL - COMPLETE SERIES OF RADIOGRAPHIC IMAGES Routine 01/16/2024 8:00 AM EST LIPID PANEL, STANDARD Routine 08/26/2023 9:11 AM EDT HM COLONOSCOPY Routine 08/24/2023 2:44 PM EDT from Last 3 Months or Most Recently Relevant to Health Maintenance Results * (ABNORMAL) CBC auto differential (01/19/2025 12:50 PM EST) White Blood Count 12.1(H) 4.8 - 10.8 X10*3/uL [facility] Red Blood Count 5.14 4.60 - 5.80 X10*6/uL [facility] Hemoglobin 15.9 14.0 - 18.0 g/dl [facility] Hematocrit 47.5 42.0 - 52.0 % [facility] Mean Corpuscular Volume 92.4 80.0 - 98.0 fL [facility] Mean Corpuscular Hemoglobin 30.9 27.0 - 33.0 pg [facility] Mean Corpuscular HGB Conc 33.5 31.0 - 36.0 g/dl [facility] Red Cell Distribution Width 13.0 11.0 - 16.0 % [facility] Platelet Count 233 160 - 400 X10*3/uL [facility] Mean Platelet Volume 10.5 9.4 - 12.4 fL [facility] Neutrophils Percent Auto 70.9 45 - 73 % [facility] Imm Gran Pct Auto 1.7(H) 0.0 - 0.4 % [facility] Lymphocytes Percent Auto 15.5(L) 20 - 40 % [facility] Monocytes Percent Auto 9.4 2 - 11 % [facility] Eosinophils Percent Auto 2.1 0 - 4 % [facility] Basophils Percent Auto 0.4 0 - 2 % [facility] NRBC Pct Auto 0.0 0.0 - 0.2 /100WBC [facility] Neutrophils Absolute Auto 8.6(H) 2.0 - 8.3 x10*3/uL [facility] Imm Gran Abs Auto 0.21(H) 0.00 - 0.03 X10*3/uL [facility] Lymphocytes Absolute Auto 1.9 1.2 - 4.9 X10*3/uL [facility] Monocytes Absolute Auto 1.1 0.1 - 1.2 X10*3/uL [facility] Eosinophils Absolute Auto 0.3 0.0 - 0.4 X10*3/uL [facility] Basophils Absolute Auto 0.1 0.0 - 0.2 X10*3/uL [facility] NRBC Abs Auto 0.000 0.0 - 0.012 X10*3/uL [facility] 01/19/2025 12:5 0 PM EST 01/19/2025 12:53 PM EST us Generic External Data Provider LAB BLOOD ORDERAB LES Final Result Performing Organization Address [facility]/ZIP Co de Phone Number [facility] [address] [place] [phone] * Magnesium (01/19/2025 12:50 PM EST) [facility] Magnesium 2.4 1.6 - 2.6 mg/dL [facility] 01/19/2025 12:5 0 PM EST 01/19/2025 12:53 PM EST Generic External Data Provider LAB BLOOD ORDERAB LES Final Result Performing Organization Address [facility]/ZIP Co de Phone Number [facility] [address] [place] [phone] * Lipase (01/19/2025 12:50 PM EST) [facility] Lipase 49 8 - 78 U/L [facility] 01/19/2025 12:5 0 PM EST 01/19/2025 12:53 PM EST Generic External Data Provider LAB BLOOD ORDERAB LES Final Result Performing Organization Address [facility] de Phone Number [facility] [address] [place] [phone] * (ABNORMAL) Comprehensive Metabolic Panel (01/19/2025 12:50 PM EST) [facility] Sodium 138 135 - 145 mmol/L [facility] Potassium 4.9 3.3 - 5.1 mmol/L [facility] Chloride 104 96 - 108 mmol/L [facility] Carbon Dioxide 24 22 - 29 mmol/L [facility] Anion Gap 15 12 - 20 [facility] Urea Nitrogen (BUN) 26(H) 9 - 16 mg/dL [facility] Creatinine, Serum 1.29 0.5 - 1.4 mg/dL [facility] Creatinine Clr Calc Pharmacy 71.2 [facility] Comment:eGFR (calculated fro m the MDRD study equation) and eCrCl(calculated from the Cockcroft-Gault equation) are based ondifferent parameters and may not yield comparable results.If eCrCl result is absurd, please check patient'sheight/weight. Estimated Glomerular Filt Rate 58 [facility] Comment:Chronic Kidney Disea se: Estimated GFR < 60 mL/min/[id number] Kidney Disease: Estimated GFR < 15 mL/min/1.73m2 Glucose 99 60 - 115 mg/dL [facility] Calcium 9.7 8.4 - 10.2 mg/dL [facility] Bilirubin, Total 0.5 0.0 - 1.0 mg/dL [facility] Aspartate Amino Transferase 29 5 - 37 U/L [facility] Alanine Aminotransferase 43(H) 0 - 40 U/L [facility] Total Protein 7.6 6.5 - 8.0 g/dL [facility] Albumin Level 4.6 3.5 - 5.0 g/dL [facility] Alkaline Phosphatase 122(H) 39 - 117 U/L [facility] 01/19/2025 12:5 0 PM EST 01/19/2025 12:53 PM EST us Generic External Data Provider LAB BLOOD ORDERAB LES Final Result Performing Organization Address City/[facility]/ZIP Co de Phone Number [facility] [address] [place] [phone] * Syphilis Screen (12/22/2024 7:26 AM EDT) Syphilis Screen Nonreactive Nonreactive [facility] Blood Venous blood specimen / Unknown 12/22/2024 7:26 AM EDT 12/22/2024 7:26 AM EDT us Mirtha Lunsford MD LAB BLOOD ORDERABLES Final Result Performing Organization Address City/[facility]/ZIP Co de Phone Number [facility] [address] [place] [phone] * Hepatitis C Antibody with Reflex to HCV, RNA, Quantitative, Real-Time PCR (12/22/2024 7:26 AM EDT) Pathologist [facility] Hepatitis C Antibody Nonreactive Nonreactive [facility] Comment:Antibodies to HCV no t detected; does not exclude early acuteHCV infection. Blood Venous blood specimen / Unknown 12/22/2024 7:26 AM EDT 12/22/2024 7:26 AM EDT us Mirtha Lunsford MD LAB BLOOD ORDERABLES Final Result [facility] [address] [place] [phone] * HIV-1/2 Antigen and Antibodies, Fourth Generation, with Reflexes (12/22/2024 7:26 AM EDT) [facility] HIV AB/AG Nonreactive Nonreactive [facility] Comment:HIV-1 p24 Ag and/or HIV-1/HIV-2 Ab not detected.A test result that is nonreactive does not exclude thepossibility of exposure to or infection with HIV-1 and/orHIV-2. Nonreactive results in this assay for individualswith prior exposure to HIV-1 and/or HIV-2 may be due toantigen and antibody levels that are below the limit ofdetection of this assay.The [employer]ash[employer] HIV Ag/Ab Combo assay result andsupplemental assay results should be interpreted inconjunction with the patient's clinical presentation,history and other laboratory results. If the results areinconsistent with clinical evidence, additional testing issuggested to confirm the result. Blood Venous blood specimen / Unknown 12/22/2024 7:26 AM EDT 12/22/2024 7:26 AM EDT us Mritha Lunsford MD LAB BLOOD ORDERABLES Final Result [facility] [address] [place] [address] [phone] * PSA,Total (12/22/2024 7:26 AM EDT) Prostate Specific Antigen 1.84 <0.05 - 4.0 ng/mL [facility] Comment:PSA methodology: Paolo Seo i ChemiluminescentMicroparticle Immunoassay (CMIA) Blood Venous blood specimen / Unknown 12/22/2024 7:26 AM EDT 12/22/2024 7:26 AM EDT us Mirtha Lunsford MD LAB BLOOD ORDERABLES Final Result [facility] [address] [place] [phone] * Chlamydia/N. Gonorrhoeae, PCR, Urine (12/22/2024 7:22 AM EDT) Pathologist [facility] CT PCR, Urine NOT DETECTED Not Detect. [facility] Comment:A not detected test result does not exclude the possibilityof infection because test results can be affected byimproper specimen collection, concurrent antibiotic therapy,or the number of organisms in the specimen which may bebelow the sensitivity of the test. As with many diagnostictests, results from the Xpert CT/NG assay should beinterpreted in conjunction with other laboratory andclinical data available to the clinician.The Xpert CT/NG assay should not be used for the evaluationof suspected sexual abuse or for other medico-legalindications. Additional testing is recommended in anycircumstance when false positive or false negative resultscould lead to adverse medical, social or psychologicalconsequences. NG PCR, Urine NOT DETECTED Not Detect. [facility] Comment:A not detected test result does not exclude the possibilityof infection because test results can be affected byimproper specimen collection, concurrent antibiotic therapy,or the number of organisms in the specimen which may bebelow the sensitivity of the test. As with many diagnostictests, results from the Xpert CT/NG assay should beinterpreted in conjunction with other laboratory andclinical data available to the clinician.The Xpert CT/NG assay should not be used for the evaluationof suspected sexual abuse or for other medico-legalindications. Additional testing is recommended in anycircumstance when false positive or false negative resultscould lead to adverse medical, social or psychologicalconsequences. Urine (Urine, Random) 12/22/2024 7:22 AM EDT 12/22/2024 7:38 AM EDT Mirtha Lunsford MD LAB URINE ORDERABLES Final Result Performing Organization Address [facility] Co de Phone Number [facility] [address] [place] [phone] * Lipid Panel, Standard (08/26/2023 9:11 AM EDT) Triglycerides 78 <150 mg/dL [facility] Comment:Desirable Triglyceri de: less than 150 mg/dLBorderline High Triglyceride 150-199 mg/dLHigh Triglyceride: 200-499 mg/dLVery High Triglyceride: greater than or equal to 5OO mg/dL Cholesterol 183 <200 mg/dL [facility] Comment:Desirable Cholestero l: less than 200 mg/dLBorderline High Cholesterol: 200-239 mg/dLHigh Cholesterol: greater than 239 mg/dL LDL Cholesterol Calculated 90 <100 mg/dL [facility] Comment:Desirable LDL: less than 100 mg/dLNear Optimal/Above Optimal LDL: 110- 129 mg/dLBorderline High LDL: 130-159 mg/dLHigh LDL: 160-189 mg/dLVery High LDL: greater than or equal to 190 mg/dL HDL Cholesterol 78 >40 mg/dL [facility] Comment:Desirable HDL: great er than 40 mg/dL Note: This HDL assay may give artificially low results in patients with liver disease. 08/26/2023 9:11 AM EDT 08/26/2023 11:07 AM EDT Mirtha Lunsford MD LAB BLOOD ORDERABLES Final Result Performing Organization Address [facility] Co de Phone Number [facility] [address] [place] [phone] * (ABNORMAL) Colonoscopy (07/08/2023) Colonoscopy Abnormal( A) Normal Comment:Multiple polyps with Dr. Pisano, repeat 1 year us Historical Provider HEALTH MAINTENANCE Edited Result - Final from Last 3 Months or Most Recently Relevant to Health Maintenance Insurance [facility] C3 DENTAL-[facility] MEDICAID STAND ADULT Advance Directives Documents on File Type Date Recorded Patient Foster Care Case Manager Expl anation Advance Directives and Living Will 12/19/2023 Health Care Proxy 12/19/23 Care Teams Employee Benefits Administrator Relationship Specialty Start Date End Date Jonn, MD Mirtha [address] [place] [address] PCP - General Family Medicine 03/04/15 Victoria Radford PharmD [address] [place] [address] Pharmacist Internal Medicine 08/03/22 Acosta Sinha FNP [address] [place] [address] Nurse Practitioner Family Medicine 01/17/23 Flip Wan MD 5 [place] [address] Pulmonary Disease 02/02/24 Dmitri Sequeira MD 100 [facility] 200 [place] [address] Nephrology 02/10/24 Stephane Pisano MD 11 [facility] 3rd [place] [address] General Surgery 02/10/24 Melvin Claros MD 596 [place] [address] Cardiology 04/16/24 Artur Aguilar MD [address] [place] [address] Endocrinology 05/31/24 Suzette Bond MD [address] [facility] [address] [place] [address] Orthopaedic Surgery 10/03/24 Ghassan Fletcher Manager PsychologySpecial Police Officer 02/07/24June,Joyce Hoover PA-C Lung Cancer Screening Program Radiology 07/31/24
--- OUTSIDE RECORDS SUMMARY | 2025-01-19 14:20 | XMS_ITS | Encounter Summary ---
Author Organization [employer] Address 75 [facility] 7t [place] [address] Care Team Providers Care Farm Loan Representative Name Role Phone Mirtha Lunsford MD Primary Care Provider Victoria Radford PharmD Unavailable Acosta Sinha Unavailable Unavailable Flip Wan MD Unavailable Dmitri Sequeira MD Unavailable Stephane Pisano MD Unavailable Melvin Claros MD Unavailable Artur Aguilar MD Unavailable Suzette Bond MD Unavailable Reason for Visit * Reason Comments Med Refill Encounter Details Date Type Department Care Team (Late st Contact Info) Description 09/23/2022 Refill [facility] [address] [place] [address] Mirtha Lunsford MD 230 [place] [address] Seasonal allergies Social History Tobacco Use Types [...] Description 02/11/2025 8:00 AM EST Office Visit [facility] ADULT DENTAL [address] [place] [address] Rebecca Capps documented as of this encounter [...] documented as of this encounter Care Teams Farm Loan Representative Relationship Specialty Start Date End Date Mirtha Lunsford MD [address] [place] [address] PCP - General Family Medicine 03/04/15 Victoria Radford, PharmD [address] [place] [address] Pharmacist Internal Medicine 08/03/22 Acosta Sinha FNP [address] [place] [address] Nurse Practitioner Family Medicine 01/17/23 Flip Wan MD 5 [place] [address] Pulmonary Disease 02/02/24 Dmitri Sequeira MD [address] [address] Nephrology 02/10/24 Stephane Pisano MD 11 [facility] 3rd [place] [address] General Surgery 02/10/24 Melvin Claros MD 596 [place] [address] Cardiology 04/16/24 Artur Aguilar MD [address] [place] [address] Endocrinology 05/31/24 Suzette Bond MD [address] [place] [address] Orthopaedic Surgery 10/03/24 NARAYAN LICEA WeighterBlocker Polishing 01/06/23 02/06/24 Ghassan Fletcher WeighterBlocker Polishing 02/07/24June,Joyce Hoover PA-C Lung Cancer Screening Program Radiology 07/31/24 documented as of this encounter
--- OUTSIDE RECORDS SUMMARY | 2025-01-19 14:20 | XMS_ITS | Encounter Summary ---
Author Organization [employer] Address 75 [facility] 7t [place] [address] Care Team Providers Care Instrument Maker And Repairer Name Role Phone Mirtha Lunsford MD Primary Care Provider Victoria Radford PharmD Unavailable [phone] Acosta Sinha Unavailable Unavailable Flip Wan MD Unavailable [phone] Dmitri Sequeira MD Unavailable Stephane Pisano MD Unavailable Melvin Claros MD Unavailable Artur Aguilar MD Unavailable [phone] Suzette Bond MD Unavailable Reason for Visit * Reason Onset Date Comments Other 11/23/2022 Encounter Details Date Type Department Care Team (Late st Contact Info) Description 11/23/2022 Telephone [facility] MEDICINE [address] [place] [address] [phone] Mirtha Lunsford MD [address] [place], [place] [phone] Other Social History Tobacco Use Types Packs/Day [...] helping him. Any questions, contact nidia at [phone] documented in this encounter Plan of Treatment Upcoming Encounters Date Type Department Care Team (Late st Contact Info) Description 02/11/2025 8:00 AM EST Office Visit [facility] ADULT DENTAL [address] [place] [address] Rebecca Capps documented as of this encounter Goals Goal Patient Goal Type Associated Problems Recent Progress Patient-Stated? Author Blood Pressure < 140/90 Blood Pressure 128/82( 025 9:35 AM EST) No Victoria Mayo, PharmD documented as of this encounter Visit Diagnoses Not on filedocumented in this encounter Additional Health Concerns Assessment Noted Time PHQ-9 Depression Total Score: 10 023 3:38 PM EDT documented as of this encounter Care Teams Instrument Maker And Repairer Relationship Specialty Start Date End Date Mirtha Lunsford MD [address] [place] [address] PCP - General Family Medicine 03/04/15 Victoria Radford, PharmD [address] [place] [address] Pharmacist Internal Medicine 08/03/22 Acosta Sinha FNP [address] [place] [address] Nurse Practitioner Family Medicine 01/17/23 Flip Wan MD [address] [place] [address] Pulmonary Disease 02/02/24 Dmitri Sequeira MD 100 [facility] [address] [place] [address] Nephrology 02/10/24 Stephane Pisano MD [address] 3rd [place] [address] General Surgery 02/10/24 Melvin Claros MD 596 [place] [address] Cardiology 04/16/24 Artur Aguilar MD [address] [place] [address] Endocrinology 05/31/24 Suzette Bond MD [address] [place] [address] Orthopaedic Surgery 10/03/24 NARAYAN LICEA Accounting Support SpecialistAgency Owner 01/06/23 02/06/24 Ghassan Fletcher Accounting Support SpecialistAgency Owner 02/07/24 Kenzie,Joyce Hoover PA-C Lung Cancer Screening Program Radiology 07/31/24 documented as of this encounter
--- OUTSIDE RECORDS SUMMARY | 2025-01-19 14:21 | XMS_ITS | Encounter Summary ---
Author Organization [employer] Address [address] [facility] [address] 7t [place] [address] Care Team Providers Care Respiratory Therapy Assistant Name Role Phone Mirtha Lunsford MD Primary Care Provider Victoria Radford PharmD Unavailable Acosta Sinha Unavailable Unavailable Flip Wan MD Unavailable Dmitri Sequeira MD Unavailable Stephane Pisano MD Unavailable [phone] Melvin Claros MD Unavailable [phone] Artur Aguilar MD Unavailable [phone] Suzette Bond MD Unavailable Reason for Visit * Reason Comments Med Refill Encounter Details Date Type Department Care Team (Late st Contact Info) Description 11/13/2022 Refill [facility] 230 [place], [place] [phone] Mirtha Lunsford MD 230 [place], [place] [phone] Essential hypertension (Primary Dx) Social History Tobacco [...] Description 02/11/2025 8:00 AM EST Office Visit [facility] ADULT DENTAL [address] [place] [address] Rebecca Capps documented as of this encounter Goals Goal Patient Goal Type Associated Problems Recent Progress Patient-Stated? Author Blood Pressure < 140/90 Blood Pressure 128/82( 025 9:35 AM EST) No Victoria Mayo PharmD documented as of this encounter Visit Diagnoses Diagnosis Essential hypertension- Primary Unspecified essential hypertension documented in this encounter Additional Health Concerns Assessment Noted Time PHQ-9 Depression Total Score: 10 023 3:38 PM EDT documented as of this encounter Care Teams Respiratory Therapy Assistant Relationship Specialty Start Date End Date Mirtha Lunsford MD 230 [place] [address] PCP - General Family Medicine 03/04/15 Victoria Radford, PharmD [address] [place] [address] Pharmacist Internal Medicine 08/03/22 Acosta Sinha FNP 230 [place] [address] Nurse Practitioner Family Medicine 01/17/23 Flip Wan MD 5 [place] [address] Pulmonary Disease 02/02/24 Dmitri Sequeira MD 100 [facility] 200 [place] [address] Nephrology 02/10/24 Stephane Pisano MD 11 [facility] 3rd [place] [address] General Surgery 02/10/24 Melvin Claros MD 596 [place] [address] Cardiology 04/16/24 Artur Aguilar MD [address] [place] [address] Endocrinology 05/31/24 Suzette Bond MD [address] [place] [address] Orthopaedic Surgery 10/03/24 NARAYAN LICEA Hand Paint MixerSkiing Instructor 01/06/23 02/06/24 Ghassan Fletcher Hand Paint MixerSkiing Instructor 02/07/24 Kenzie,Joyce Hoover PA-C Lung Cancer Screening Program Radiology 07/31/24 documented as of this encounter
--- OUTSIDE RECORDS SUMMARY | 2025-01-19 14:21 | XMS_ITS | Encounter Summary ---
Author Organization [employer] Address 75 [facility] 7t [place] [address] Care Team Providers Care Pickers Material Handlers Name Role Phone Mirtha Lunsford MD Primary Care Provider Victoria Radford PharmD Unavailable [phone] Acosta Sinha Unavailable Unavailable lFip Wan MD Unavailable Dmitri Sequeira MD Unavailable Stephane Pisano MD Unavailable [phone] Melvin Claros MD Unavailable Artur Aguilar MD Unavailable [phone] Suzette Bnod MD Unavailable [phone] Reason for Visit * Reason Comments Med Refill Encounter Details Date Type Department Care Team (Late st Contact Info) Description 04/03/2024 Refill [facility] MED[facility] [address] [place], [place] [phone] Mirtha Lunsford MD 230 [place], [place] [phone] Mild intermittent asthma without complication Social History [...] Description 02/11/2025 8:00 AM EST Office Visit [facility] ADULT DENTAL 230 [place] [address] Rebecca Capps documented as of this encounter [...] documented as of this encounter Care Teams Pickers Material Handlers Relationship Specialty Start Date End Date Mirtha Lunsford MD 230 [place] [address] PCP - General Family Medicine 03/04/15 Victoria Radford, PharmD 230 [place] [address] Pharmacist Internal Medicine 08/03/22 Acosta Sinha FNP 230 [place] [address] Nurse Practitioner Family Medicine 01/17/23 Flip Wan MD 5 [place] [address] Pulmonary Disease 02/02/24 Dmitri Sequeira MD [address] [address] Nephrology 02/10/24 Stephane Pisano MD 11 [facility] 3rd [place] [address] General Surgery 02/10/24 Melvin Claros MD 596 [place] [address] Cardiology 04/16/24 Artur Aguilar MD [address] [place] [address] Endocrinology 05/31/24 Suzette Bond MD [address] [place] [address] Orthopaedic Surgery 10/03/24 Ghassan Fletcher Hydrotel OperatorVial Gauger 02/07/24June,Joyce Hoover PA-C Lung Cancer Screening Program Radiology 07/31/24 documented as of this encounter
--- OUTSIDE RECORDS SUMMARY | 2025-01-19 14:21 | XMS_ITS | Encounter Summary ---
Author Organization [employer] Address 75 [facility] 7t [place] [address] Care Team Providers Care Subpoena Server Name Role Phone Mirtha Lunsford MD Primary Care Provider Victoria Radford PharmD Unavailable [phone] Acosta Sinha Unavailable Unavailable Flip Wan MD Unavailable [phone] Dmitri Sequeira MD Unavailable [phone] Stephane Pisano MD Unavailable Melvin Claros MD Unavailable [phone] Artur Aguilar MD Unavailable Suzette Bond MD Unavailable Reason for Visit * Reason Comments Med Refill Encounter Details Date Type Department Care Team (Late st Contact Info) Description 01/17/2025 Refill [facility] MEDICINE [address] [place], [place] [phone] Mirtha Lunsford MD 230 [place], [place] [phone] Dyslipidemia Social History Tobacco Use Types Packs/Day Years [...] Description 02/11/2025 8:00 AM EST Office Visit [facility] ADULT DENTAL [address] [place] [address] Rebecca Capps documented as of this encounter Goals Goal Patient Goal Type Associated Problems Recent Progress Patient-Stated? Author Blood Pressure < 140/90 Blood Pressure 128/82( 025 9:35 AM EST) No Piers-Gambl e, Victoria, PharmD Reduce tobacco use (cigarettes, smokeless, etc) Tobacco Use No Piers-Gambl e, Victoria, PharmD documented as of this encounter Visit Diagnoses Diagnosis Dyslipidemia Other and unspecified hyperlipidemia documented in this encounter Additional Health Concerns Assessment Noted Time PHQ-9 Depression Total Score: 0 06/19/19 25 9:06 AM EDT documented as of this encounter Care Teams Subpoena Server Relationship Specialty Start Date End Date Mirtha Lunsford MD 230 [place] [address] PCP - General Family Medicine 03/04/15 Victoria Radford, PharmD [address] [place] [address] Pharmacist Internal Medicine 08/03/22 Acosta Sinha FNP [address] [place] [address] Nurse Practitioner Family Medicine 01/17/23 Flip Wan MD 5 [place] [address] Pulmonary Disease 02/02/24 Dmitri Sequeira MD [address] [address] Nephrology 02/10/24 Stephane Pisano MD 11 [facility] 3rd [place] [address] General Surgery 02/10/24 Melvin Claros MD 596 [place] [address] Cardiology 04/16/24 Artur Aguilar MD [address] [facility] [address] [place] [address] Endocrinology 05/31/24 Suzette Bond MD [address] [facility] [address] [place] [address] Orthopaedic Surgery 10/03/24 Ghassan Fletcher Health Analytics ConsultantTechnology Applications Engineer 02/07/24June,Joyce Hoover PA-C Lung Cancer Screening Program Radiology 07/31/24 documented as of this encounter
--- OUTSIDE RECORDS SUMMARY | 2025-01-19 14:21 | XMS_ITS | Encounter Summary ---
Author Organization [employer] [facility] Address 75 [facility] 7t [place] [address] Care Team Providers Care Independent Living Specialist Name Role Phone Mirtha Lunsford MD Primary Care Provider Victoria Radford PharmD Unavailable Acosta Sinha BILL OF LADING CLERK Unavailable Unavailable Flip Wan MD Unavailable [phone] Dmitri Sequeira MD Unavailable Stephane iPsano MD Unavailable Melvin Claros MD Unavailable [phone] Artur Aguilar MD Unavailable [phone] Suzette Bond MD Unavailable Encounter Details Date Type Department Care Team (Latest Contact Info) Description 07/25/2020 Abstract [facility] CONVERSIONS Dental, Provider, DDS Social History Tobacco [...] Description 02/11/2025 8:00 AM EST Office Visit [facility] ADULT DENTAL 230 [place] [address] Rebecca Capps documented as of this encounter Visit Diagnoses Not on filedocumented in this encounter Care Teams Independent Living Specialist Relationship Specialty Start Date End Date Mirtha Lunsford MD 230 [place] [address] PCP - General Family Medicine 03/04/15 Victoria Radford PharmD [address] [place] [address] Pharmacist Internal Medicine 08/03/22 Acosta Sinha FNP 230 [place] [address] Nurse Practitioner Family Medicine 01/17/23 Flip Wan MD 5 [place] [address] Pulmonary Disease 02/02/24 Dmitri Sequeira MD [address] [facility] 200 [place] [address] Nephrology 02/10/24 Stephane Pisano MD [address] 3rd [place] [address] General Surgery 02/10/24 Melvin Claros MD 596 [place] [address] Cardiology 04/16/24 Artur Aguilar MD [address] [place] [address] Endocrinology 05/31/24 Suzette Bond MD [address] [place] [address] Orthopaedic Surgery 10/03/24 NARAYAN LICEA Microcomputer Support SpecialistScreen Examiner 01/06/23 02/06/24 Ghassan Fletcher Microcomputer Support SpecialistScreen Examiner 02/07/24 Joyce Espino PA-C Lung Cancer Screening Program Radiology 07/31/24 documented as of this encounter
--- OUTSIDE RECORDS SUMMARY | 2025-01-19 14:21 | XMS_ITS | Encounter Summary ---
Author Organization [employer] [facility] Address 75 [facility] 7t [place] [address] Care Team Providers Care Ambulatory Care Name Role Phone Mirtha Lunsford MD Primary Care Provider Victoria Radford PharmD Unavailable Acosta Sinha AGRICULTURAL ENGINEERING TECHNOLOGIST Unavailable Unavailable Flip Wan MD Unavailable [phone] Dmitri Sequeira MD Unavailable [phone] Stephane Pisano MD Unavailable [phone] Melvin Claros MD Unavailable Artur Aguilar MD Unavailable Suzette Bond MD Unavailable Encounter Details Date Type Department Care Team (Latest Contact Info) Description 07/03/2018 Abstract [facility] CONVERSIONS Dental, Provider, DDS Social History [...] Description 02/11/2025 8:00 AM EST Office Visit [facility] ADULT DENTAL 230 [place] [address] Rebecca Capps documented as of this encounter Visit Diagnoses Not on filedocumented in this encounter Care Teams Ambulatory Care Relationship Specialty Start Date End Date Mirtha Lunsford MD 230 [place] [address] PCP - General Family Medicine 03/04/15 Victoria Radford PharmD [address] [place] [address] Pharmacist Internal Medicine 08/03/22 Acosta Sinha FNP 230 [place] [address] Nurse Practitioner Family Medicine 01/17/23 Flip Wan MD 5 [place] [address] Pulmonary Disease 02/02/24 Dmitri Sequeira MD 100 [facility] 200 [place] [address] Nephrology 02/10/24 Stephane Pisano MD 11 [facility] 3rd [place] [address] General Surgery 02/10/24 Melvin Claros MD 596 [place] [address] Cardiology 04/16/24 Artur Aguilar MD [address] [place] [address] Endocrinology 05/31/24 Suzette Bond MD [address] [place] [address] Orthopaedic Surgery 10/03/24 NARAYAN LICEA Stock FitterJuvenile Justice Officer 01/06/23 02/06/24 Ghassan Fletcher Stock FitterJuvenile Justice Officer 02/07/24 Joyce Espino PA-C Lung Cancer Screening Program Radiology 07/31/24 documented as of this encounter
--- OUTSIDE RECORDS SUMMARY | 2025-01-19 14:21 | XMS_ITS | Encounter Summary ---
Author Organization [employer] Address [address] [facility] [address] [address] 7t [place] [address] Care Team Providers Care Machine Ceramic Coater Name Role Phone Mirtha Lunsford MD Primary Care Provider [phone] Victoria Radford PharmD Unavailable Acosta Sinha Unavailable Unavailable Flip Wan MD Unavailable [phone] Dmitri Sequeira MD Unavailable [phone] Stephane Pisano MD Unavailable [phone] Melvin Claros MD Unavailable [phone] Artur Aguilar MD Unavailable [phone] Suzette Bond MD Unavailable Reason for Visit * Reason Comments Med Refill Encounter Details Date Type Department Care Team (Late st Contact Info) Description 05/08/2024 Refill [facility] 230 [place], [place] [phone] Mirtha Lunsford MD 230 [place] [address] Social History Tobacco Use Types Packs/Day Years [...] Description 02/11/2025 8:00 AM EST Office Visit [facility] 230 [place] [address] Rebecca Capps documented as of this encounter [...] as of this encounter Care Teams Machine Ceramic Coater Relationship Specialty Start Date End Date Mirtha Lunsford MD 230 [place] [address] PCP - General Family Medicine 03/04/15 Victoria Radford, PharmD 230 [place] [address] Pharmacist Internal Medicine 08/03/22 Acosta Sinha FNP 230 [place] [address] Nurse Practitioner Family Medicine 01/17/23 Flip Wan MD 5 [place] [address] Pulmonary Disease 02/02/24 Dmitri Sequeira MD 100 [facility] 200 [place] [phone] Nephrology 02/10/24 Stephane Pisano MD 11 [facility] 3rd [place] [address] General Surgery 02/10/24 Melvin Claros MD 596 [place] [address] Cardiology 04/16/24 Artur Aguilar MD [address] [place] [address] Endocrinology 05/31/24 Suzette Bond MD [address] [place] [address] Orthopaedic Surgery 10/03/24 Ghassan Fletcher Polyethylene CombinerVessel Ordinary Seaman 02/07/24June,Joyce Hoover PA-C Lung Cancer Screening Program Radiology 07/31/24 documented as of this encounter
--- OUTSIDE RECORDS SUMMARY | 2025-01-19 14:21 | XMS_ITS | Encounter Summary ---
Author Organization [employer] Address [address] [facility] 7t [place] [address] Care Team Providers Care Roll Capper Name Role Phone Mirtha Lunsford MD Primary Care Provider Victoria Radford PharmD Unavailable [phone] Acosta Sinha Unavailable Unavailable Flip Wan MD Unavailable [phone] Dmitri Sequeira MD Unavailable Stephane Pisano MD Unavailable Melvin Claros MD Unavailable [phone] Artur Aguilar MD Unavailable Suzette Bond MD Unavailable [phone] Reason for Visit * Reason Comments Med Refill Encounter Details Date Type Department Care Team (Late st Contact Info) Description 01/04/2024 Refill [facility] 230 [place], [place] [phone] Shayla Ferrer DO 230 [place], [place] [phone] Social History Tobacco Use Types Packs/Day Years [...] Office Visit [facility] 230 [place] [address] Rebecca Capps documented as of this encounter [...] documented as of this encounter Care Teams Roll Capper Relationship Specialty Start Date End Date Mirtha Lunsford MD 230 [place] [address] PCP - General Family Medicine 03/04/15 Victoria Radford, PharmD 230 [place] [address] Pharmacist Internal Medicine 08/03/22 Acosta Sinha FNP 230 [place] [address] Nurse Practitioner Family Medicine 01/17/23 Flip Wan MD 5 [place] [address] Pulmonary Disease 02/02/24 Dmitri Sequeira MD [address] [phone] Nephrology 02/10/24 Stephane Pisano MD 11 [facility] 3rd [place] [address] General Surgery 02/10/24 Melvin Claros MD 596 [place] [address] Cardiology 04/16/24 Artur Aguilar MD [address] [place] [address] Endocrinology 05/31/24 Suzette Bond MD [address] [place] [address] Orthopaedic Surgery 10/03/24 NARAYAN LICEA Financial ExaminerBlue Split Trimmer 01/06/23 02/06/24 Ghassan Fletcher Financial ExaminerBlue Split Trimmer 02/07/24 May,Joyce Hoover PA-C Lung Cancer Screening Program Radiology 07/31/24 documented as of this encounter
--- OUTSIDE RECORDS SUMMARY | 2025-01-19 14:21 | XMS_ITS | Encounter Summary ---
Author Organization [email or web address] Address [address] [facility] 7t [place] [address] Care Team Providers Care Log Raft Worker Name Role Phone Mirtha Lunsford MD Primary Care Provider Victoria Radford PharmD Unavailable Acosta Sinha Unavailable Unavailable Flip Wan MD Unavailable [phone] Dmitri Sequeira MD Unavailable Stephane Pisano MD Unavailable Melvin Claros MD Unavailable Artur Aguilar MD Unavailable [phone] Suzette Bond MD Unavailable Reason for Visit * Reason Comments Med Refill Encounter Details Date Type Department Care Team (Late st Contact Info) Description 01/19/2025 Refill [facility] 230 [place], [place] [phone] Mirtha Lunsford MD 230 [place], [place] [phone] Rash Social History Tobacco Use Types Packs/Day Years [...] Description 02/11/2025 8:00 AM EST Office Visit [facility] 230 [place] [address] Rebecca Capps documented as of this encounter Goals Goal Patient Goal Type Associated Problems Recent Progress Patient-Stated? Author Blood Pressure < 140/90 Blood Pressure 128/82( 025 9:35 AM EST) No Piers-Gambl e, Victoria, PharmD Reduce tobacco use (cigarettes, smokeless, etc) Tobacco Use No Piers-Gambl e, Victoria, PharmD documented as of this encounter Visit Diagnoses Diagnosis Rash Rash and other nonspecific skin eruption documented in this encounter Additional Health Concerns Assessment Noted Time PHQ-9 Depression Total Score: 0 06/19/19 25 9:06 AM EDT documented as of this encounter Care Teams Log Raft Worker Relationship Specialty Start Date End Date Mirtha Lunsford MD 230 [place] [address] PCP - General Family Medicine 03/04/15 Victoria Radford, PharmD [address] [place] [address] Pharmacist Internal Medicine 08/03/22 Acosta Sinha FNP [address] [place] [address] Nurse Practitioner Family Medicine 01/17/23 Flip Wan MD 5 [place] [address] Pulmonary Disease 02/02/24 Dmitri Sequeira MD [address] [address] Nephrology 02/10/24 Stephane Pisano MD 11 [facility] 3rd [place] [address] General Surgery 02/10/24 Melvin Claros MD 596 [place] [address] Cardiology 04/16/24 Artur Aguilar MD [address] [place] [address] Endocrinology 05/31/24 Suzette Bond MD [address] [place] [address] Orthopaedic Surgery 10/03/24 Ghassan Fletcher Mild Disabilities TeacherStereotype Caster 02/07/24June,Joyce Hoover PA-C Lung Cancer Screening Program Radiology 07/31/24 documented as of this encounter
--- OUTSIDE RECORDS SUMMARY | 2025-01-19 14:21 | XMS_ITS | Encounter Summary ---
Author Organization [employer] Address [address] [facility] [address] 7t [place] [address] Care Team Providers Care Fan Mail Editor Name Role Phone Mirtha Lunsford MD Primary Care Provider [phone] Victoria Radford PharmD Unavailable Acosta Sinha CLEANING SPECIALIST Unavailable Unavailable Flip Wan MD Unavailable [phone] Dmitri Sequeira MD Unavailable Stephane Pisano MD Unavailable [phone] Melvin Claros MD Unavailable Artur Aguilar MD Unavailable [phone] Suzette Bond MD Unavailable Encounter Details Date Type Department Care Team (Late st Contact Info) Description 05/14/2024 Orders Only [facility] 230 [place], [place] [phone] Mirtha Lunsford MD 230 [place], [place] [phone] Class 1 obesity due to excess calories [...] Description 02/11/2025 8:00 AM EST Office Visit [facility] 230 [place] [address] Rebecca Capps documented as of this encounter Goals Goal Patient Goal Type Associated Problems Recent Progress Patient-Stated? Author Blood Pressure < 140/90 Blood Pressure 128/82( 025 9:35 AM EST) No Victoria Mayo PharmD Reduce tobacco [...] documented as of this encounter Care Teams Fan Mail Editor Relationship Specialty Start Date End Date Mirtha Lunsford MD [address] [place] [address] PCP - General Family Medicine 03/04/15 Victoria Radford PharmD [address] [place] [address] Pharmacist Internal Medicine 08/03/22 Acosta Sinha FNP [address] [place] [address] Nurse Practitioner Family Medicine 01/17/23 Flip Wan MD 5 [place] [address] Pulmonary Disease 02/02/24 Dmitri Sequeira MD [address] [address] Nephrology 02/10/24 Stephane Pisano MD 11 [facility] 3rd [place] [address] General Surgery 02/10/24 Melvin Claros MD 596 [place] [address] Cardiology 04/16/24 Artur Aguilar MD 10 [facility] [address] [place] [address] Endocrinology 05/31/24 Suzette Bond MD [address] [facility] [address] [place] [address] Orthopaedic Surgery 10/03/24 Ghassan Fletcher Sap Bw ArchitectChief Knowledge Officer 02/07/24June,Joyce Hoover PA-C Lung Cancer Screening Program Radiology 07/31/24 documented as of this encounter
--- OUTSIDE RECORDS SUMMARY | 2025-01-19 14:21 | XMS_ITS | Encounter Summary ---
Author Organization [employer] Address [address] [facility] [address] 7t [place] [address] Care Team Providers Care Code Clerk Name Role Phone Mirtha Lunsford MD Primary Care Provider Victoria Radford PharmD Unavailable Acosta Sinha Unavailable Unavailable Flip Wan MD Unavailable [phone] Dmitri Sequeira MD Unavailable [phone] Stephane Pisano MD Unavailable Melvin Claros MD Unavailable Artur Aguilar MD Unavailable Suzette Bond MD Unavailable Reason for Visit * Reason Comments Med Refill Encounter Details Date Type Department Care Team (Late st Contact Info) Description 12/29/2023 Refill [facility] 230 [place], [place] [phone] Anya Muller ANP 230 [place], [place] [phone] Essential hypertension Social History Tobacco Use Types [...] Description 02/11/2025 8:00 AM EST Office Visit [facility]ULT [facility] 230 [place] [address] Rebecca Capps documented as of this encounter [...] documented as of this encounter Care Teams Code Clerk Relationship Specialty Start Date End Date Mirtha Lunsford MD 230 [place] [address] PCP - General Family Medicine 03/04/15 Victoria Radford, PharmD [address] [place] [address] Pharmacist Internal Medicine 08/03/22 Acosta Sinha FNP [address] [place] [address] Nurse Practitioner Family Medicine 01/17/23 Flip Wan MD 5 [place] [address] Pulmonary Disease 02/02/24 Dmitri Sequeira MD [address] [phone] Nephrology 02/10/24 Stephane Pisano MD [address] [facility] 3rd [place] [address] General Surgery 02/10/24 Melvin Claros MD 596 [place] [address] Cardiology 04/16/24 Artur Aguilar MD [address] [place] [address] Endocrinology 05/31/24 Suzette Bond MD [address] [place] [address] Orthopaedic Surgery 10/03/24 NARAYAN LICEA Florist'S DecoratorMedical Sales Specialist 01/06/23 02/06/24 Ghassan Fletcher Florist'S DecoratorMedical Sales Specialist 02/07/24 May,Joyce Hoover PA-C Lung Cancer Screening Program Radiology 07/31/24 documented as of this encounter
--- OUTSIDE RECORDS SUMMARY | 2025-01-19 14:21 | XMS_ITS | Encounter Summary ---
Author Organization [employer] Address 75 [facility] 7t [place] [address] Care Team Providers Care Antique Finisher Name Role Phone Mirtha Lunsford MD Primary Care Provider + [phone] Victoria Radford PharmD Unavailable [phone] Acosta Sinha Unavailable Unavailable Flip Wan MD Unavailable Dmitri Sequeira MD Unavailable [phone] Stephane Pisano MD Unavailable [phone] Melvin Claros MD Unavailable [phone] Artur Aguilar MD Unavailable [phone] Suzette Bond MD Unavailable [phone] Reason for Visit * Reason Comments Med Refill Encounter Details Date Type Department Care Team (Late st Contact Info) Description 02/02/2023 Refill [facility] 230 [place] [address] Acosta Sinha FNP Social History Tobacco Use [...] Description 02/11/2025 8:00 AM EST Office Visit [facility] ADULT D[facility] 230 [place] [address] Rebecca Capps documented as of this encounter [...] documented as of this encounter Care Teams Antique Finisher Relationship Specialty Start Date End Date Mirtha Lunsford MD 230 [place] [address] PCP - General Family Medicine 03/04/15 Victoria Radford PharmD 230 [place] [address] Pharmacist Internal Medicine 08/03/22 Acosta Sinha FNP 230 [place] [address] Nurse Practitioner Family Medicine 01/17/23 Flip Wan MD 5 [place] [address] Pulmonary Disease 02/02/24 Dmitri Sequeira MD [address] [place] [address] Nephrology 02/10/24 Stephane Pisano MD 11 [facility] 3rd [place] [address] General Surgery 02/10/24 Melvin Claros MD 596 [place] [address] Cardiology 04/16/24 Artur Aguilar MD [address] [place] [address] Endocrinology 05/31/24 Suzette Bond MD [address] [place] [address] Orthopaedic Surgery 10/03/24 NARAYAN LICEA Integrated Circuit Design EngineerLoading Dock Helper 01/06/23 02/06/24 Ghassan Fletcher Integrated Circuit Design EngineerLoading Dock Helper 02/07/24 Joyce Espino PA-C Lung Cancer Screening Program Radiology 07/31/24 documented as of this encounter
--- OUTSIDE RECORDS SUMMARY | 2025-01-19 14:21 | XMS_ITS | Encounter Summary ---
Author Organization [employer] Address [address] [facility] 7t [place] [address] Care Team Providers Care Hvac Manager Name Role Phone Mirtha Lunsford MD Primary Care Provider Victoria Radford PharmD Unavailable Acosta Sinha Unavailable Unavailable Flip Wan MD Unavailable [phone] Dmitri Sequeira MD Unavailable [phone] Stephane Pisano MD Unavailable [phone] Melvin Claros MD Unavailable Artur Aguilar MD Unavailable Suzette Bond MD Unavailable Reason for Visit * Reason Comments Med Refill Encounter Details Date Type Department Care Team (Late st Contact Info) Description 04/12/2024 Refill [facility] 230 [place], [place] [phone] Mirtha Lunsford MD 230 [place], [place] [phone] Moderate persistent asthma without complication Social History [...] Description 02/11/2025 8:00 AM EST Office Visit [facility] 230 [place] [address] Rebecca Capps documented as of this encounter [...] documented as of this encounter Care Teams Hvac Manager Relationship Specialty Start Date End Date Mirtha Lunsford MD 230 [place] [address] PCP - General Family Medicine 03/04/15 Victoria Radford, PharmD 230 [place] [address] Pharmacist Internal Medicine 08/03/22 Acosta Sinha FNP 230 [place] [address] Nurse Practitioner Family Medicine 01/17/23 Flip Wan MD 5 [place] [address] Pulmonary Disease 02/02/24 Dmitri Sequeira MD [address] [address] Nephrology 02/10/24 Stephane Pisano MD 11 [facility] 3rd [place] [address] General Surgery 02/10/24 Melvin Claros MD 596 [place] [address] Cardiology 04/16/24 Artur Aguilar MD [address] [place] [address] Endocrinology 05/31/24 Suzette Bond MD [address] [place] [address] Orthopaedic Surgery 10/03/24 Ghassan Fletcher Assistant Manager RetailJordan Worker 02/07/24June,Joyce Hoover PA-C Lung Cancer Screening Program Radiology 07/31/24 documented as of this encounter
--- OUTSIDE RECORDS SUMMARY | 2025-01-19 14:21 | XMS_ITS | Clinical Summary ---
Author Organization [facility] Address [address] [place] [address] [place] [address] Phone Care Team Providers Care Narrow Gauge Brakeman Name Role Phone Demetri Tavia Primary Care Provider [phone] Allergies Active Allergy Reactions Criticality Noted Date [...] adenoma 06/28/2022 023 Environmental allergy 06/28/2022 11/18/2022 Pain of hip region 06/28/2022 Vaping 06/28/2022 11/18/2022 Right flank pain 06/28/2022 11/18/2022 Post-traumatic stress disorder 06/21/2022 0 11/18/2022 Overview (11/18/2022): Last Assessment & Plan: Trauma [...] plan. Moderate persistent asthma 02/24/202211/18 Overview (11/18/2022): -site supervising technical operator Dr. Wan -continue Flovent -continue Singulair -continue albuterol prn Last Assessment & Plan: -site supervising technical operator Dr. Wan -continue Flovent -continue Singulair [...] Date Smoking Tobacco: Every Day Cigarettes 0.3 42.9 Started: 02/21/1982 Alcohol Use Standard Drinks/Week Comments [...] 10/24/2014, 06/25/2014, Additional history exists Insurance Medicaid [place] Medicaid [place] Care Teams Narrow Gauge Brakeman Relationship Specialty Start Date End Date [facility] 230 [facility] [place] [address] PCP - General 04/29/22
--- OUTSIDE RECORDS SUMMARY | 2025-01-19 14:21 | XMS_ITS | Clinical Summary ---
Author Organization 175 [facility] Address 175 [place] [address] Phone Care Team Providers Care General Superintendent Name Role Phone Lucrecia Pitt MD Primary Care Provider [phone] Medications ketoconazole (NIZORAL) 2 % cream Apply topically 1 (one) time each day. 30 g 2 Active Encounters Date Type Department Care Team Description 11/05/2024 10:15 AM EDT Office Visit Orthopedic Surgery [facility] [address] [address] Nick Hooper, DPM Pes planus [...] 09/19/2024 8:47 AM EDT Plan of Treatment Health Maintenance Due Date Last Done Comments Colorectal Cancer Screening: Colonoscopy 1968 RSV Immunization Adult Patients (1 - Risk 50-74 years 1-dose series) 02/15/2018 Social Influencers of Health Screening 03/18/2023 Depression Screening 02/22/2024 COVID-19 Vaccine ( season) 2024 11/10/2023, 01/24/2023, 02/18/2022, Additional history exists Influenza Vaccine (#1) 2024 , 11/01/2022, 02/18/2022, [...] Completed 05/30/2023, 11/01/2022, 06/28/2022 HIV Screening Completed 12/22/2024, 02/28/2024 Hepatitis C Screening Completed 12/22/2024, 025 HIB Vaccines Aged Out No longer eligi [...] topic Insurance MEDICAID - [place] Care Teams General Superintendent Relationship Specialty Start Date End Date Lucrecia Pitt MD 230 [facility] 1 [place] [address] PCP - General 09/23/22
--- OUTSIDE RECORDS SUMMARY | 2025-01-19 14:21 | XMS_ITS | Encounter Summary ---
Author Organization [employer] Address 75 [facility] 7t [place] [address] Care Team Providers Care Patrol Mother Name Role Phone Mirtha Lunsford MD Primary Care Provider + [phone] Victoria Radford PharmD Unavailable [phone] Acosta Sinha Unavailable Unavailable Flip Wan MD Unavailable [phone] Dmitri Sequeira MD Unavailable [phone] Stephane Pisano MD Unavailable [phone] Melvin Claros MD Unavailable [phone] Artur Aguilar MD Unavailable [phone] Suzette Bond MD Unavailable [phone] Reason for Referral * Consultation (Routine) - Closed Specialty Diagnoses / Procedures Referred By Ruthie reyes Referred To Contact Nutrition Diagnoses Class 1 obesity due to excess calories with serious comorbidity and body mass index (BMI) of 33.0 to 33.9 in adult Kalli Henderson MD [address] [place] [address] Phone: tel: fax: Referral ID Status Reason Start Date Expiration Date V isits Requested Visits Authorized [id number] Closed Consult and Treat 05/10/2024 05/10/2025 1 1 Encounter Details Date Type Department Care Team (Late st Contact Info) Description 05/10/2024 Orders Only [facility] [address] [place] [phone] Kalli Henderson MD 230 [place] [address] Class 1 obesity due to excess calories [...] 02/11/2025 8:00 AM EST Office Visit [facility] ADULT [facility] 230 [place] [address] Rebecca Capps Scheduled Referrals Name Type Priority [...] documented as of this encounter Care Teams Patrol Mother Relationship Specialty Start Date End Date Mirtha Lunsford MD 230 [place] [address] PCP - General Family Medicine 03/04/15 Piers-Tye, Victoria, PharmD [address] [place] [address] Pharmacist Internal Medicine 08/03/22 Acosta Sinha FNP [address] [place] [address] Nurse Practitioner Family Medicine 01/17/23 Flip Wan MD 5 [place] [address] Pulmonary Disease 02/02/24 Dmitri Sequeira MD 100 [address] [place] [address] Nephrology 02/10/24 Stephane Pisano MD [address] 3rd [place] [address] General Surgery 02/10/24 Melvin Claros MD 596 [place] [address] Cardiology 04/16/24 Artur Aguilar MD [address] [place] [address] Endocrinology 05/31/24 Suzette Bond MD [address] [place] [address] Orthopaedic Surgery 10/03/24 Ghassan Houoie Master Of CeremoniesRailway Engineer 02/07/24June,Joyce Hoover PA-C Lung Cancer Screening Program Radiology 07/31/24 documented as of this encounter
--- OUTSIDE RECORDS SUMMARY | 2025-01-19 14:21 | XMS_ITS | Patient Health Record ---
Author Organization [facility] Address [address] [place] [address] Care Team Providers Care Travel Money Advisor Name Role Phone Aleksandr Spangler Jr [phone] Reason For Referral No Information Plan Of Treatment No Information
--- OUTSIDE RECORDS SUMMARY | 2025-01-19 14:21 | XMS_ITS | Encounter Summary ---
Author Organization [employer] Address 75 [facility] 7t [place] [address] Care Team Providers Care Head Sawyer Automatic Name Role Phone Mirtha Lunsford MD Primary Care Provider [phone] Victoria Radford PharmD Unavailable Acosta Sinha ENVIRONMENTAL ENGINEERING INTERN Unavailable Unavailable Flip Wan MD Unavailable [phone] Dmitri Sequeira MD Unavailable [phone] Stephane Pisano MD Unavailable Melvin Claros MD Unavailable [phone] Artur Aguilar MD Unavailable Suzette Bond MD Unavailable [phone] Encounter Details Date Type Department Care Team (Late st Contact Info) Description 09/08/2022 Abstract [facility] MED[facility] 230 [place], [place] [phone] Mirtha Lunsford MD 230 [place], [place] [phone] Social History Tobacco Use Types Packs/Day Years [...] Description 02/11/2025 8:00 AM EST Office Visit [facility] ADULT DENTAL 230 [place] [address] Rebecca Capps documented as of this encounter [...] documented as of this encounter Care Teams Head Sawyer Automatic Relationship Specialty Start Date End Date Mirtha Lunsford MD 230 [place] [address] PCP - General Family Medicine 03/04/15 Victoria Radford, PharmD 230 [place] [address] Pharmacist Internal Medicine 08/03/22 Acosta Sinha FNP 230 [place] [address] Nurse Practitioner Family Medicine 01/17/23 Flip Wan MD 5 [place] [address] Pulmonary Disease 02/02/24 Dmitri Sequeira MD [address] [address] Nephrology 02/10/24 Stephane Pisano MD 11 [facility] 3rd [place] [address] General Surgery 02/10/24 Melvin Claros MD 596 [place] [address] Cardiology 04/16/24 Artur Aguilar MD [address] [place] [address] Endocrinology 05/31/24 Suzette Bond MD [address] [place] [address] Orthopaedic Surgery 10/03/24 NARAYAN LICEA Radiologist Chief Of Breast ImagingKennel Attendant 01/06/23 02/06/24 Ghassan Fletcher Radiologist Chief Of Breast ImagingKennel Attendant 02/07/24June,Joyce Hoover PA-C Lung Cancer Screening Program Radiology 07/31/24 documented as of this encounter
--- OUTSIDE RECORDS SUMMARY | 2025-01-19 14:21 | XMS_ITS | Encounter Summary ---
Author Organization [employer] Address [address] [facility] 7t [place] [address] Care Team Providers Care Business Intelligence Architect Name Role Phone Mirtha Lunsford MD Primary Care Provider [phone] Victoria Radford PharmD Unavailable [phone] Acosta Sinha WHARF HAND Unavailable Unavailable Flip Wan MD Unavailable Dmitri Sequeira MD Unavailable Stephane Pisano MD Unavailable [phone] Melvin Claros MD Unavailable Artur Aguilar MD Unavailable Suzette Bond MD Unavailable Encounter Details Date Type Department Care Team (Late st Contact Info) Description 08/24/2023 Abstract [facility] MEDICINE [address] [place], [place] [phone] Mirtha Lunsford MD [address] [place], [place] [phone] Social History Tobacco Use Types Packs/Day Years [...] 8:00 AM EST Office Visit [facility] ADULT DENTAL [address] [place] [address] Rebecca Capps documented as of this encounter [...] as of this encounter Care Teams Business Intelligence Architect Relationship Specialty Start Date End Date Mirtha Lunsford MD [address] [place] [address] PCP - General Family Medicine 03/04/15 Victoria Radford PharmD [address] [place] [address] Pharmacist Internal Medicine 08/03/22 Acosta Sinha FNP [address] [place] [address] Nurse Practitioner Family Medicine 01/17/23 Flip Wan MD 5 [place] [address] Pulmonary Disease 02/02/24 Dmitri Sequeira MD [address] [phone] Nephrology 02/10/24 Stephane Pisano MD [address] [facility] 3rd [place] [address] General Surgery 02/10/24 Melvin Claros MD [address] [place] [address] Cardiology 04/16/24 Artur Aguilar MD [address] [place] [address] Endocrinology 05/31/24 Suzette Bond MD [address] [place] [address] Orthopaedic Surgery 10/03/24 NARAYAN LICEA Arc TrimmerTap Out Operator 01/06/23 02/06/24 Ghassan Fletcher Arc TrimmerTap Out Operator 02/07/24 Joyce Espino PA-C Lung Cancer Screening Program Radiology 07/31/24 documented as of this encounter
--- OUTSIDE RECORDS SUMMARY | 2025-01-19 14:21 | XMS_ITS | Encounter Summary ---
Author Organization [employer] Address [address] [facility] 7t [place] [address] Care Team Providers Care Chief Clerk Shelter Name Role Phone Mirtha Lunsford MD Primary Care Provider Victoria Radford PharmD Unavailable Acosta Sinha Unavailable Unavailable Flip Wan MD Unavailable [phone] Dmitri Sequeira MD Unavailable [phone] Stephane Pisano MD Unavailable Melvin Claros MD Unavailable Artur Aguilar MD Unavailable [phone] Suzette Bond MD Unavailable Reason for Visit * Reason Comments Med Refill Encounter Details Date Type Department Care Team (Late st Contact Info) Description 09/06/2023 Refill [facility] MEDICINE [address] [place], [place] [phone] Mirtha Lunsford MD [address] [place], [place] [phone] Social History Tobacco Use Types Packs/Day Years [...] 02/11/2025 8:00 AM EST Office Visit [facility] ADULT DENTAL [address] [place] [address] Rebecca Capps documented as of this encounter [...] as of this encounter Care Teams Chief Clerk Shelter Relationship Specialty Start Date End Date Mirtah Lunsford MD [address] [place] [address] PCP - General Family Medicine 03/04/15 Victoria Radford, Duy [address] [place] [address] Pharmacist Internal Medicine 08/03/22 Acosta Sinha FNP [address] [place] [address] Nurse Practitioner Family Medicine 01/17/23 Flip Wan MD 5 [place] [address] Pulmonary Disease 02/02/24 Dmitri Sequeira MD 100 [facility] [address] [place] [address] Nephrology 02/10/24 Stephane Pisano MD [address] 3rd [place] [address] General Surgery 02/10/24 Melvin Claros MD [address] [place] [address] Cardiology 04/16/24 Artur Augilar MD [address] [place] [address] Endocrinology 05/31/24 Suzette Bond MD [address] [place] [address] Orthopaedic Surgery 10/03/24 NARAYAN LICEA Machine TailerCider Maker 01/06/23 02/06/24 Ghassan Fletcher Machine TailerCider Maker 02/07/24 Joyce Espino PA-C Lung Cancer Screening Program Radiology 07/31/24 documented as of this encounter
--- OUTSIDE RECORDS SUMMARY | 2025-01-19 14:21 | XMS_ITS | Encounter Summary ---
Author Organization [employer] Address [address] [facility] [address] 7[address] [place] [address] Care Team Providers Care Inspector Wreath Name Role Phone Mirtha Lunsford MD Primary Care Provider [phone] Victoria Radford PharmD Unavailable [phone] Acosta Sinha Unavailable Unavailable Flip Wan MD Unavailable [phone] Dmitri Sequeira MD Unavailable [phone] Stephane Pisano MD Unavailable Melvin Claros MD Unavailable Artur Aguilar MD Unavailable Suzette Bond MD Unavailable Encounter Details Date Type Department Care Team (Late st Contact Info) Description 01/19/2025 Orders Only GENERIC EXTERNAL DATA DEPARTMENT Provider, Generic External Data Social History Tobacco Use Types Packs/Day Years [...] your housing situation today? I have nava laureaon 08/29/[address] you li [...] [facility] ADULT DENTAL [address] [place] [address] Rebecca Capps documented as of this encounter [...] Diagnosis Comments CBC WITH AUTO DIFFERENTIAL Routine 01/19/2025 12:50 PM EST MAGNESIUM Routine 01/19/2025 12:50 PM EST LIPASE Routine 01/19/2025 12:50 PM EST COMPREHENSIVE METABOLIC PANEL Routine 01/19/2025 12:50 PM EST documented in this encounter Results * Lipase (01/19/2025 12:50 PM EST) Pathologist [facility] Lipase 49 8 - 78 U/L [facility] 01/19/2025 12:5 0 PM EST 01/19/2025 12:53 PM EST Generic External Data Provider LAB BLOOD ORDERAB LES Final Result Performing Organization Address City/[facility]/ZIP Co de Phone Number [facility] [address] [place] [phone] * Magnesium (01/19/2025 12:50 PM EST) Pathologist [facility] Magnesium 2.4 1.6 - 2.6 mg/dL [facility] 01/19/2025 12:5 0 PM EST 01/19/2025 12:53 PM EST Generic External Data Provider LAB BLOOD ORDERAB LES Final Result Performing Organization Address City/[facility]/ZIP Co de Phone Number [facility] [address] [place] [phone] * (ABNORMAL) Comprehensive Metabolic Panel (01/19/2025 12:50 PM EST) Pathologist [facility] Sodium 138 135 - 145 mmol/L [facility] Potassium 4.9 3.3 - 5.1 mmol/L [facility] Chloride 104 96 - 108 mmol/L [facility] Carbon Dioxide 24 22 - 29 mmol/L [facility] Anion Gap 15 12 - 20 [facility] Urea Nitrogen (BUN) 26(H) 9 - 16 mg/dL [facility] Creatinine, Serum 1.29 0.5 - 1.4 mg/dL [facility] Creatinine Clr Calc Pharmacy 71.2 [facility] Comment:eGFR (calculated fro m the MDRD study equation) and eCrCl(calculated from the Cockcroft-Gault equation) are based ondifferent parameters and may not yield comparable results.If eCrCl result is absurd, please check patient'sheight/weight. Estimated Glomerular Filt Rate 58 [facility] Comment:Chronic Kidney Disea se: Estimated GFR < 60 mL/min/[id number] Kidney Disease: Estimated GFR < 15 mL/min/1.73m2 Glucose 99 60 - 115 mg/dL [facility] Calcium 9.7 8.4 - 10.2 mg/dL [facility] Bilirubin, Total 0.5 0.0 - 1.0 mg/dL [facility] Aspartate Amino Transferase 29 5 - 37 U/L [facility] Alanine Aminotransferase 43(H) 0 - 40 U/L [facility] Total Protein 7.6 6.5 - 8.0 g/dL [facility] Albumin Level 4.6 3.5 - 5.0 g/dL [facility] Alkaline Phosphatase 122(H) 39 - 117 U/L [facility] 01/19/2025 12:5 0 PM EST 01/19/2025 12:53 PM EST us Generic External Data Provider LAB BLOOD ORDERAB LES Final Result [facility] [address] [place] [phone] * (ABNORMAL) CBC auto differential (01/19/2025 12:50 PM EST) White Blood Count 12.1(H) 4.8 - 10.8 X10*3/uL [facility] Red Blood Count 5.14 4.60 - 5.80 X10*6/uL [facility] Hemoglobin 15.9 14.0 - 18.0 g/dl [facility] Hematocrit 47.5 42.0 - 52.0 % [facility] Mean Corpuscular Volume 92.4 80.0 - 98.0 fL [facility] Mean Corpuscular Hemoglobin 30.9 27.0 - 33.0 pg [facility] Mean Corpuscular HGB Conc 33.5 31.0 - 36.0 g/dl [facility] Red Cell Distribution Width 13.0 11.0 - 16.0 % [facility] Platelet Count 233 160 - 400 X10*3/uL [facility] Mean Platelet Volume 10.5 9.4 - 12.4 [facility] Neutrophils Percent Auto 70.9 45 - 73 % [facility] Imm Gran Pct Auto 1.7(H) 0.0 - 0.4 % [facility] Lymphocytes Percent Auto 15.5(L) 20 - 40 % [facility] Monocytes Percent Auto 9.4 2 - 11 % [facility] Eosinophils Percent Auto 2.1 0 - 4 % [facility] Basophils Percent Auto 0.4 0 - 2 % [facility] NRBC Pct Auto 0.0 0.0 - 0.2 /100WBC [facility] Neutrophils Absolute Auto 8.6(H) 2.0 - 8.3 x10*3/uL [facility] Imm Gran Abs Auto 0.21(H) 0.00 - 0.03 X10*3/uL [facility] Lymphocytes Absolute Auto 1.9 1.2 - 4.9 X10*3/uL [facility] Monocytes Absolute Auto 1.1 0.1 - 1.2 X10*3/uL [facility] Eosinophils Absolute Auto 0.3 0.0 - 0.4 X10*3/uL [facility] Basophils Absolute Auto 0.1 0.0 - 0.2 X10*3/uL [facility] NRBC Abs Auto 0.000 0.0 - 0.012 X10*3/uL [facility] 01/19/2025 12:5 0 PM EST 01/19/2025 12:53 PM EST us Generic External Data Provider LAB BLOOD ORDERAB LES Final Result [facility] [address] [place] [phone] documented in this encounter Visit Diagnoses Not on filedocumented in this encounter Additional Health Concerns Assessment Noted Time PHQ-9 Depression Total Score: 0 06/19/19 25 9:06 AM EDT documented as of this encounter Care Teams Inspector Wreath Relationship Specialty Start Date End Date Mirtha Lunsford MD [address] [place] [address] PCP - General Family Medicine 03/04/15 Victoria Radford PharmD [address] [place] [phone] Pharmacist Internal Medicine 08/03/22 Acosta Sinha FNP [address] [place] [address] Nurse Practitioner Family Medicine 01/17/23 Flip Wan MD 5 [place] [address] Pulmonary Disease 02/02/24 Dmitri Sequeira MD 100 [facility] [address] [place] [address] Nephrology 02/10/24 Stephane Pisano MD [address] 3rd [place] [address] General Surgery 02/10/24 Melvin Claros MD [address] [place] [address] Cardiology 04/16/24 Artur Aguilar MD [address] [place] [address] Endocrinology 05/31/24 Suzette Bond MD [address] [place] [address] Orthopaedic Surgery 10/03/24 Ghassan Fletcher Computer MechanicInbound Customer Service Representative 02/07/24June,Joyce Hoover PA-C Lung Cancer Screening Program Radiology 07/31/24 documented as of this encounter
[2025-01-19 14:43] VITALS: TEMP 36.6
[2025-01-19 15:01] VITALS: BP 117/82; PULSE 82; RESP 16; TEMP 36.6; O2SAT 98
== END 2025-01-19 18:47 | disposition left against medical advice (07) ==
PROVIDERS: Physician Assistant Medical; Emergency Provider Emergency Medicine; PCP Family Medicine
DX: R14.0 Abdominal distension (gaseous) (principal); R10.84 Generalized abdominal pain; I10 Essential (primary) hypertension; J45.909 Unspecified asthma, uncomplicated; Z79.51 Long term (current) use of inhaled steroids; Z79.899 Other long term (current) drug therapy; F17.200 Nicotine dependence, unspecified, uncomplicated; Z71.6 Tobacco abuse counseling
CPT/HCPCS: 36415; 74176; 80053; 83690; 83735; 85025; 96361; 96374; 99284; J1885

== ENCOUNTER → 2025-01-19 14:48 | Outpatient (BNV) | payer MEDICAID, SELFPAY | PROVIDERS: PCP Family Medicine; Visit Provider Radiology Diagnostic Radiology | DX: R10.9 Unspecified abdominal pain (principal) | CPT/HCPCS: 74176 ==

== ENCOUNTER 2025-01-23 08:17 | Outpatient (REF) | payer MEDICAID, SELFPAY ==
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
--- OUTSIDE RECORDS SUMMARY | 2025-01-23 13:36 | XMS_ITS | Encounter Summary ---
Author Organization [employer] Address [address] [facility] 7t [place] [address] Care Team Providers Care Neuroscience Specialist Name Role Phone Mirtha Lunsford MD Primary Care Provider Victoria Radford PharmD Unavailable Acosta Sinha Unavailable Unavailable Flip Wan MD Unavailable [phone] Dmitri Sequeira MD Unavailable Stephane Pisano MD Unavailable Melvin Claros MD Unavailable [phone] Artur Aguilar MD Unavailable Suzette Bond MD Unavailable Reason for Visit * Reason Onset Date Comments Other 11/23/2022 Encounter Details Date Type Department Care Team (Late st Contact Info) Description 11/23/2022 Telephone [facility] MED[facility]INE [address] [place] [phone] Mirtha Lunsford MD [address] [place], [place] [phone] Other Social History Tobacco Use Types Packs/Day [...] helping him. Any questions, contact nidia at [phone] documented in this encounter Plan of Treatment Upcoming Encounters Date Type Department Care Team (Late st Contact Info) Description 02/11/2025 8:00 AM EST Office Visit [facility] ADULT DENTAL [address] [place] [address] Rebecca Capps 03/20/2025 10:15 AM EST Office Visit [facility] MED[facility]INE [address] [place] [address] Mirtha Lunsford MD [address] [place] [phone] documented as of this encounter Goals Goal Patient Goal Type Associated Problems Recent Progress Patient-Stated? Author Blood Pressure < 140/90 Blood Pressure 118/80( 025 10:52 AM EST) No Victoria Mayo, PharmD documented as of this encounter Visit Diagnoses Not on filedocumented in this encounter Additional Health Concerns Assessment Noted Time PHQ-9 Depression Total Score: 10 023 3:38 PM EDT documented as of this encounter Care Teams Neuroscience Specialist Relationship Specialty Start Date End Date Mirtha Lunsford MD [address] [place] [address] PCP - General Family Medicine 03/04/15 Victoria Radford, PharmD [address] [place] [phone] Pharmacist Internal Medicine 08/03/22 Acosta Sinha FNP [address] [place] [address] Nurse Practitioner Family Medicine 01/17/23 Flip Wan MD [address] [place] [address] Pulmonary Disease 02/02/24 Dmitri Sequeira MD [address] [facility] [address] [place] [phone] Nephrology 02/10/24 Stephane Pisano MD [address] [facility] 3rd [place] [address] General Surgery 02/10/24 Melvin Claros MD [address] [place] [address] Cardiology 04/16/24 Artur Aguilar MD [address] [place] [address] Endocrinology 05/31/24 Suzette Bond MD [address] [place] [address] Orthopaedic Surgery 10/03/24 NARAYAN LICEA Hospice EducatorMetal Sprayer Machined Parts 01/06/23 02/06/24 Ghassan Fletcher Hospice EducatorMetal Sprayer Machined Parts 02/07/24 Joyce Espino PA-C Lung Cancer Screening Program Radiology 07/31/24 documented as of this encounter
--- OUTSIDE RECORDS SUMMARY | 2025-01-23 13:36 | XMS_ITS | Encounter Summary ---
Author Organization [employer] Address [address] [place] [address] Care Team Providers Care [facility] Vat Worker Name Role Phone Mirtha Lunsford MD Primary Care Provider [phone] Victoria Radford PharmD Unavailable Acosta Sinha Unavailable Unavailable Flip Wan MD Unavailable [phone] Dmitri Sequeira MD Unavailable [phone] Stephane Pisano MD Unavailable Melvin Claros MD Unavailable [phone] Artur Aguilar MD Unavailable [phone] Suzette Bond MD Unavailable Reason for Visit * Reason Comments Med Refill Encounter Details Date Type Department Care Team (Late st Contact Info) Description 05/08/2024 Refill [facility] [address] [place], [place] [phone] Mirtha Lunsford MD [address] [place] [address] Social History Tobacco Use Types Packs/Day Years [...] Description 02/11/2025 8:00 AM EST Office Visit [facility] [address] [place], [place] [phone] Rebecca Capps 03/20/2025 10:15 AM EST Office Visit [facility] [address] [place] [address] Mirtha Lunsford MD [address] [place] [address] documented as of this encounter Goals Goal Patient Goal Type Associated Problems Recent Progress Patient-Stated? Author Blood Pressure < 140/90 Blood Pressure 118/80( 025 10:52 AM EST) No Victoria Mayo, PharmD Reduce tobacco use (cigarettes, smokeless, etc) Tobacco Use No Piers-Gambl e, Victoria, PharmD documented as of this encounter Visit Diagnoses Not on filedocumented in this encounter Additional Health Concerns Assessment Noted Time PHQ-9 Depression Total Score: 0 06/17/19 24 9:26 AM EDT documented as of this encounter Care Teams [facility] [facility] Vat Worker Relationship Specialty Start Date End Date Mirtha Lunsford MD [address] [place] [phone] PCP - General Family Medicine 03/04/15 Victoria Radford, PharmD [address] [place] [address] Pharmacist Internal Medicine 08/03/22 Acosta Sinha FNP [address] [place], [place] Nurse Practitioner Family Medicine 01/17/23 Flip Wan MD [address] [place] [address] Pulmonary Disease 02/02/24 Dmitri Sequeira MD [address] [phone] Nephrology 02/10/24 Stephane Pisano MD [address] [facility] [address] [place] [address] General Surgery 02/10/24 Melvin Claros MD [address] [place] [address] Cardiology 04/16/24 Artur Aguilar MD [address] [place] [address] Endocrinology 05/31/24 Suzette Bond MD [address] [place] [address] Orthopaedic Surgery 10/03/24 Ghassan Fletcher Inside Sales Territory ManagerEducation Program Specialist 02/07/24June,Joyce Hoover PA-C Lung Cancer Screening Program Radiology 07/31/24 documented as of this encounter
--- OUTSIDE RECORDS SUMMARY | 2025-01-23 13:36 | XMS_ITS | Encounter Summary ---
Author Organization [employer] Address [address] [facility] [address] [place] [address] Care Team Providers Care Drainage Inspector Name Role Phone Mirtha Lunsford MD Primary Care Provider + [phone] Victoria Radford PharmD Unavailable [phone] Acosta Sinha Unavailable Unavailable Flip Wan MD Unavailable [phone] Dmitri Sequeira MD Unavailable [phone] Stephane Pisano MD Unavailable [phone] Melvin Claros MD Unavailable [phone] Artur Aguilar MD Unavailable [phone] Suzette Bond MD Unavailable [phone] Reason for Referral * Consultation (Routine) - Closed Specialty Diagnoses / Procedures Referred By Ruthie reyes Referred To Contact Nutrition Diagnoses Class 1 obesity due to excess calories with serious comorbidity and body mass index (BMI) of 33.0 to 33.9 in adult Kalli Henderson MD [address] [place] [phone] Phone: tel: fax: Referral ID Status Reason Start Date Expiration Date V isits Requested Visits Authorized [id number] Closed Consult and Treat 05/10/2024 05/10/2025 1 1 Encounter Details Date Type Department Care Team (Late st Contact Info) Description 05/10/2024 Orders Only [facility] [address] [place] [phone] Kalli Henderson MD [address] [place] [address] Class 1 obesity due to excess calories [...] 8:00 AM EST Office Visit [facility] [address] [place] [address] Rebecca Capps 03/20/2025 10:15 AM EST Office Visit [facility] [address] [place] [address] Mirtha Lunsford MD [address] [place] [address] Scheduled Referrals Name Type Priority Associated Diagnoses [...] Pressure 118/80( 025 10:52 AM EST) No Piers-Gambl e, Victoria, PharmD [...] documented as of this encounter Care Teams Drainage Inspector Relationship Specialty Start Date End Date Mirtha Lunsford MD [address] [place] [phone] PCP - General Family Medicine 03/04/15 Piers-, Victoria, PharmD [address] [place] [address] Pharmacist Internal Medicine 08/03/22 Acosta Sinha FNP [address] [place] [address] Nurse Practitioner Family Medicine 01/17/23 Flip Wan MD 5 [place] [address] Pulmonary Disease 02/02/24 Dmitri Sequeira MD [address] [facility] [address] [place] [address] Nephrology 02/10/24 Stephane Pisano MD [address] [place] [address] General Surgery 02/10/24 Melvin Claros MD [address] [place] [address] Cardiology 04/16/24 Artur Aguilar MD [address] [place] [address] Endocrinology 05/31/24 Suzette Bond MD [address] [place] [address] Orthopaedic Surgery 10/03/24 Ghassan Fletcher Sail RepairerNursing Staff Development Coordinator 02/07/24June,Joyce Hoover PA-C Lung Cancer Screening Program Radiology 07/31/24 documented as of this encounter
--- OUTSIDE RECORDS SUMMARY | 2025-01-23 13:36 | XMS_ITS | Clinical Summary ---
Author Organization [employer] Address [address] [place] [address] Care Team Providers Care [employer] Attorney Name Role Phone Mirtha Lunsford MD Primary Care Provider [phone] Victoria Radford PharmD Unavailable Acosta Sinha Unavailable Unavailable Flip Wan MD Unavailable [phone] Dmitri Sequeira MD Unavailable [phone] Stephane Pisano MD Unavailable [phone] Melvin Claros MD Unavailable Artur Aguilar MD Unavailable [phone] Suzette Bond MD Unavailable Allergies Active [...] or chew. 90 tablet 3 025 Active loratadine (Claritin) 10 MG tabletIndicatio [...] FOR 12 HOURS DIRECTED 30 patch 1 Active Combivent Respimat 20-100 MCG/ACT inhalerIndicati ons:Mild [...] IN THE EVENING 60 capsule 025 Active acetaminophen (Tylenol 8 Hour) 650 MG ER tablet Take 1 tablet (650 mg) by mouth every 8 (eight) hours if needed for mild pain. Do not crush, chew, or split. 50 tablet 1 5 1:44 PM EST 025 2025 Active clotrimazole (Lotrimin) 1 % cream Apply topically 2 times daily. 30 g 1 5 1:44 PM EST 025 Active baclofen (Lioresal) 10 MG tabletIndicatio ns:Sacroiliac joint dysfunction TAKE 1 TABLET BY MOUTH THREE TIMES DAILY IN THE MORNING, AT NOON, AND AT BEDTIME NEEDED FOR MUSCLE SPASMS 60 tablet 1 025 Active atorvastatin (Lipitor) 80 MG tabletIndicatio ns:Dyslipidemia TAKE 1 TABLET BY MOUTH EVERY MORNING 90 tablet 1 025 Active mometasone (Elocon) 0.1 % creamIndication s:Rash APPLY TO THE AFFECTED AREA(S) TOPICALLY EVERY DAY 45 g 1 025 Active famotidine (Pepcid) 20 MG tabletIndicatio ns:Pain of upper abdomen,Abdomin al bloating Take 1 tablet twice daily 60 tablet 5 10:18 AM EST 025 Active varenicline (Chantix) 1 MG tabletIndicatio ns:Cigarette nicotine dependence without complication Take 1 tablet (1 mg) by mouth 2 times daily. Take with full glass of water. Start after initial 7d rx. 60 tablet 2 5 10:18 AM EST 025 Active simethicone (Mylicon) 80 MG chewable tabletIndicatio ns:Abdominal bloating Chew 1 tablet (80 mg) every 6 (six) hours if needed (bloating) for up to 10 days. 40 tablet 5 10:18 AM EST 025 2024 Active nicotine polacrilex (Nicorette Mini) 2 MG lozengeIndicati ons:Cigarette nicotine dependence without complication,To bacco abuse counseling Allow 1 lozenge to dissolve in mouth every 2 hours or less as needed in place of cigarette 100 lozenge 2 5 10:18 AM EST Active atorvastatin (Lipitor) 80 MG tabletIndicatio ns:Dyslipidemia TAKE 1 TABLET BY MOUTH EVERY MORNING 90 tablet 1 025 2024 Discontinued acetaminophen (Tylenol 8 Hour) [...] SPASMS 60 tablet 1 025 2024 Discontinued mometasone (Elocon) 0.1 % creamIndication s:Rash APPLY TO THE AFFECTED AREA(S) TOPICALLY EVERY DAY 45 g 1 025 2024 Discontinued pregabalin (Lyrica) 150 MG capsuleIndicati ons:Chronic bilateral low back pain, unspecified whether sciatica present TAKE 1 CAPSULE BY MOUTH TWICE DAILY IN THE MORNING AND IN THE EVENING 60 capsule 025 2024 Discontinued predniSONE (Deltasone) 10 MG tablet Take 4 tablets (40 mg) by mouth Once per day for 3 days, THEN 3 tablets (30 mg) Once per day for 3 days, THEN 2 tablets (20 mg) Once per day for 3 days, THEN 1 tablet (10 mg) Once per day for 3 days. 30 tablet 5 1:44 PM EST 025 2024 Active Problems Problem Noted Date Diagnosed Date Dental caries 11/22/2024 Fractured dental yazidism with loss of materi al 11/22/2024 Multiple [...] pain 04/16/2024 Overview (11/19/2024): -Patient followed at [facility] with Dr. Agueda Claros DO. [...] and nutrition interventions discussed. -Patient followed at [facility] with Dr. Agueda Claros DO. [...] retention. I spoke with JULIETA Wood at [facility] pain [facility] and they want the last CT scan faxed at [phone], they will fu with patient this week. Order lumbar MRI ro cord compromise Other specified health status 07/02/2022 Overview (06/18/2024): -next physical exam due after 06/18/25 -eye care facilitated by [facility] -dental home is [facility] -health care proxy filed 12/19/23 Assessment & Plan (06/18/2024 3:03 PM EDT): -next physical exam due after 06/18/25 -eye care facilitated by [facility] -dental home is [facility] -health care proxy filed 12/19/23 Assessment & Plan (12/19/2023 9:30 AM EDT): -next physical exam due after 05/29/2024 -eye care facilitated by [facility] -dental home is [facility] -health care proxy filed 12/19/23 Assessment & Plan (05/30/2023 10:13 AM EDT): -next physical exam due after 02/28/2023 -eye care facilitated by [facility] -dental home is [facility] -health care proxy given on 05/30/2023 Assessment & Plan (11/01/2022 9:15 AM EDT): -next physical exam due after 02/28/2023 -eye care facilitated by [facility] -dental home is Adrenal cortical adenoma 06/28/2022 Overview (01/21/2025): Seen by Dr. Aguilar 05/08/2021 (prior was followed by Dr. Moseley) Hx incidental finding right adrenal nodule found in CT preformed in ER Feb 2018 c/w benign adenoma. Biochemical workup showed mass not secretary to board of commissioners including dexamethasone suppression test. Repeat CT done [...] -Follow up Dr. Aguilar 1 year recommended -CT 01/11/25 done in ER Impression: Right adrenal gland reveals a stable 2.2 cm low-density adrenal nodule (4; 180, 3 Hounsfield units), likely stable adenoma. No acute abnormalities or CT explanation for reported history of abdominal pain. Stable right adrenal nodule/adenoma. Assessment & Plan (02/23/2024 10:08 AM EST): Seen by Dr. Aguilar 05/08/2021 (prior was followed by Dr. Moseley) Hx incidental finding right adrenal nodule found in CT preformed in ER Feb 2018 c/w benign adenoma. Biochemical workup showed mass not secretary to board of commissioners including dexamethasone suppression test. Repeat CT done [...] adenoma. Biochemical workup showed mass not secretary to board of commissioners including dexamethasone suppression test. Repeat CT done 2019. Follow up Dr. Aguilar 1 year recommended. -referral placed 05/30/23 Assessment & Plan (01/24/2023 9:53 AM EST): Seen by Dr. Aguilar 05/08/2021 (prior was followed by Dr. Moseley) Hx incidental finding right adrenal nodule found in CT preformed in ER Feb 2018 c/w benign adenoma. Biochemical workup showed mass not secretary to board of commissioners including dexamethasone suppression test. Repeat CT done [...] plan. Moderate persistent asthma 02/24/2022 Overview (02/02/2024): -global safety officer Dr. Wan seen 02/02/24 -Well controlled on current regimen of Xolair, Combivent, Advair, albuterol MDI. -last prednisone use 12/28/23 for exacerbation, given by pulmonary Assessment & Plan (12/17/2024 10:58 AM EDT): -global safety officer Dr. Wan seen 02/02/24 -Well controlled on current regimen of Xolair, Combivent, Advair, albuterol MDI. -last prednisone use 12/28/23 for exacerbation, given by pulmonary Assessment & Plan (06/18/2024 3:06 PM EDT): -global safety officer Dr. Wan seen 02/02/24 -Well controlled on current regimen of Xolair, Combivent, Advair, albuterol MDI. -last prednisone use 12/28/23 for exacerbation, given by pulmonary Assessment & Plan (02/23/2024 10:09 AM EST): -global safety officer Dr. Wan seen 02/02/24 -Well controlled on current regimen of Xolair, Combivent, Advair, albuterol MDI. -last prednisone use 12/28/23 for exacerbation, given by pulmonary Assessment & Plan (05/30/2023 12:31 PM EDT): -global safety officer Dr. Wan seen 12/2022 -Well controlled on current regimen of Xolair, Combivent, Advair, albuterol MDI. Continue current Assessment & Plan (01/24/2023 9:53 AM EST): -global safety officer Dr. Wan seen 12/2022 -Well controlled on current regimen of Xolair, Combivent, Advair, albuterol MDI. Continue current Assessment & Plan (12/20/2022 8:01 PM EDT): Few wheezing on lung exam,reports feeling well -offered NBZ tx here but refuse states will get at home ,and got pump tx before coming that may cause elevated HR -continue his regular inh and montelukast -continue care w global safety officer -planned apt for next month -advised to get booster for COVID 19 at vaccine clinic, pt s/p p20 and flu vaccine already Assessment & Plan (11/01/2022 9:02 AM EDT): -global safety officer Dr. Wan -continue Flovent -continue Singulair -continue albuterol prn Assessment & Plan (06/28/2022 10:09 AM EDT): Normal lung exam. advised to call Dr. Wan, his global safety officer, for kristan't. continue Flovent, Singulair, may use [...] 3 years recommended -colonoscopy intake with Dr. Psiano 07/08/23 with multiple polyps recommending repeat in [...] Essential hypertension 08/19/2020 Overview (11/19/2024): -followed by [facility] -echo 03/31/23 EF 60-65% no [...] Plan (12/17/2024 10:58 AM EDT): -followed by [facility] -echo 03/31/23 EF 60-65% no changes compared to02/2017 -Blood pressure is slightly above goal, recommended monitoring at home. -Continue lifestyle modifications -Continue current medications -cardiology note from 04/12/23, no changes, follow up 6 months Assessment & Plan (06/18/2024 3:06 PM EDT): -followed by [facility] -echo 03/31/23 EF 60-65% no changes compared to02/2017 -Blood pressure is slightly above goal, recommended monitoring at home. -Continue lifestyle modifications -Continue current medications -cardiology note from 04/12/23, no changes, follow up 6 months Assessment & Plan (11/03/2023 10:12 AM EDT): -followed by [facility] -echo 03/31/23 EF 60-65% no changes compared to02/2017 -Blood pressure is at goal -Continue lifestyle modifications -Continue current medications -cardiology note from 04/12/23, no changes, follow up 6 months Assessment & Plan (05/30/2023 12:31 PM EDT): -followed by [facility] -echo 03/31/23 EF 60-65% [...] will need chem f up then after Bhuepndra inh dose was increased -EKG today HR [...] as pharmacomtherapy, [facility] smoking cessation group, and [facility] pharmacy smoking cessation clinic -14mg and [...] as pharmacomtherapy, [facility] smoking cessation group, and [facility] pharmacy smoking cessation clinic -14mg and [...] Encouraged smoking cessation resources such as pharmacomtherapy, [facility] smoking cessation group, and [facility] pharmacy smoking cessation clinic -14mg and [...] diet and exercise,discussed healthy life style -discussed ad operations specialist referral -referred today Acute dehydration 09/23/2022 [...] is for one week only and not long term care pharmacist. Acute idiopathic gout involv ing toe of [...] 02/10/2024 Asthma 06/28/2022 10/27/2022 Environmental allergies 06/28/2022 12/2 Use of combustion-free vaporization device 06/28/2022 02/10/2024 [...] 10/27/2022 Absent kidney 08/19/2020 02/10/2024 Rheumatoid arthritis ([facility]/H[facility]) 08/19/2020 10/27/2022 Nicotine dependence 08/19/2020 07/03/19 Mild intermittent asthma 11/22/2016 Episodic opioid dependence ([facility]) 03/09/2012 07/02/2022 Encounters Date Type Department Care Team Description 01/22/2025 11:00 AM EST Office Visit [facility] [address] [place] [phone] Anya Muller ANP Pain of upper abdomen (Primary Dx); Abdominal bloating; Cigarette nicotine dependence without complication; Tobacco abuse counseling 01/22/2025 Travel 01/22/2025 Refill [facility] [address] [place] [address] [phone] Mirtha Lunsford MD Chronic bilateral low back pain, unspecified whether sciatica present 01/19/2025 Orders Only GENERIC EXTERNAL DATA DEPARTMENT Provider, Generic External Data 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 (Primary Dx) 01/19/2025 Refill [facility] [address] [place] [address] [phone] Mirtha Lunsford MD Rash 01/17/2025 Refill [facility] [address] [place] [address] [phone] Mirtha Lunsford MD Dyslipidemia 01/09/2025 Refill [facility] [address] [place] [address] [phone] Mirtha Lunsford MD Sacroiliac joint dysfunction 01/07/2025 9:40 AM EST Office Visit [facility] [address] [place] [address] [phone] Anibal Lenz MD Pain of upper abdomen (Primary Dx); Acute gouty arthritis; Rash 01/07/2025 Telephone [facility] [address] [place] [address] [phone] Mirtha Lunsford MD Care Coordination 01/07/2025 Travel 12/27/2024 Refill [facility] [address] [place] [address] [phone] Mirtha Lunsford MD Chronic bilateral low back pain, unspecified whether sciatica present 12/23/2024 Refill [facility] [address] [place] [address] [phone] Mirtha Lunsford MD Mild intermittent asthma without complication 12/17/2024 10:45 AM EDT Office Visit [facility] [address] [place] [address] [phone] Mirtha Lunsford MD Dyslipidemia (Primary Dx); Moderate persistent asthma without complication; Prostate cancer screening; Routine screening for STI (sexually transmitted infection); Essential hypertension; Class 1 obesity due to excess calories with serious comorbidity and body mass index (BMI) of 33.0 to 33.9 in adult 12/17/2024 Travel 12/14/2024 Telephone [facility] [address] [place] [address] [phone] Mirtha Lunsford MD chart prep 11/30/2024 Refill [facility] [address] [place] [address] [phone] Mirtha Lunsford MD Chronic bilateral low back pain, unspecified whether sciatica present 11/22/2024 9:30 AM EDT Office Visit [facility] [address] [place] [address] [phone] Elmer Lopez DDS Fractured dental yazidism with loss of material (Primary Dx); Dental caries 11/19/2024 3:15 PM EDT Office Visit [facility] [address] [place] [address] [phone] Kitty Funk NP Moderate persistent asthma with exacerbation (Primary Dx) 11/19/2024 Travel 11/18/[address] [phone] Mirtha Lunsford MD Sacroiliac joint dysfunction; Rash 11/08/2024 Refill [facility] [address] [place] [phone] Shayla Ferrer DO Sacroiliac joint dysfunction 10/26/2024 Refill [facility] [address] [place] [address] Mirtha Lunsford MD Chronic bilateral low back pain, unspecified whether sciatica present 10/24/2024 Orders Only [facility] [address] [place] [address] Provider, MD Thalia Essential hypertension (Primary Dx) from Last 3 Months Immunizations Immunization Administration [...] Mass Index 34.82 01/22/2025 10:52 AM EST Plan of Treatment Upcoming Encounters Date Type Department Care Team (Late st Contact Info) Description 02/11/2025 8:00 AM EST Office Visit [facility] [address] [place] [address] Rebecca Capps 03/20/2025 10:15 AM EST Office Visit [facility] [address] [place] [address] Mirtha Lunsford MD [address] [place] [phone] Health Maintenance Due Date Last Done Comments CT Colonography 1968 FIT DNA/Cologuard 1968 FIT 1968 FOBT 1970 Sigmoidoscopy 1970 RSV Patients and Patients Aged 60 years or older (1 - Risk 50-74 years 1-dose series) 02/15/2018 Colonoscopy 08/23/2024 08/24/2023, 06/21, 07/08/2023, Additional history exists Colorectal Cancer Screening 08/23/2024 COVID-19 Vaccine ( season) 2024 11/10/2023, 01/24/2023, 02/18/2022, Additional history exists Dental X-Ray: Bitewings 01/16/2025 01/16/20 24, 04/15/2021, 03/26/2021, Additional history exists Dental Oral Exam 01/19/2025 07/18/2024, , 07/25/2020, Additional history exists Dental Prophylaxis 01/19/2025 07/18/2024, 1 03/17/2023, 07/25/2020, Additional history exists SDOH Screening 06/06/2025 06/06/2024 Depression Screening 06/18/2025 06/18/2024, 06/19/19 25 Disability Screening 06/18/2025 06/18/2024 Alcohol/Substance Use Screening 12/17/2025 12/17/2024 Tobacco Screening 01/22/2026 01/22/2025 Dental X-Ray: Full Mouth 01/16/2027 024, 07/25/2020, 07/25/2020, Additional history exists Lipid Panel 08/25/2028 08/26/2023, 04/0 09/2023, 03/05/2022 DTaP/Tdap/Td Vaccines (3 - Td or [...] Procedure Name Priority Date/Time Associated Diagnosis Comments CT ABDOMEN PELVIS WO CONTRAST Routine 01/19/2025 4:47 PM EST LIPASE Routine 01/19/2025 12:50 PM EST MAGNESIUM [...] Recently Relevant to Health Maintenance Results * CT Abdomen Pelvis w/o Contrast (01/19/2025 4:47 PM EST) Anatomical Region Laterality Modality Body, Pelvis, Abdomen Computed T omography 01/19/2025 4:47 PM EST Narrative 01/19/2025 4:49 PM EST [address] [address] [address] Scan Report Signed Patient: Yuri Stokes MR#: [id number] : 1970 Acct:[id number] Age/Sex: 54 / M ADM Date: 01/19/25 Loc: HO.ED Attending Dr: Ordering Physician: Kassandra Al Date of Service: 01/19/25 Procedure(s): CT abdomen pelvis wo IV con Accession Number(s): [id number] cc: Mirtha Lunsford MD; Kassandra Al [facility] Report Number: [id number]: Total DLP = 639.00 mGy-cm Reason for Exam: Gen. Abd Pain CLINICAL HISTORY: Gen. Abd Pain Exam: Nonenhanced CT abdomen and pelvis with multiplanar reformats. Comparison: 09/13/2022. Findings: CT abdomen: Lung bases are clear. Liver is free of focal lesions and ductal dilatation. Gallbladder is unremarkable. Spleen is unremarkable. Pancreas and left adrenal gland appear unremarkable. Right adrenal gland reveals a stable 2.2 cm low-density adrenal nodule (4; 180, 3 Hounsfield units), likely stable adenoma. Left kidney is absent. Right kidney appears unremarkable. No free intraperitoneal fluid or retroperitoneal masses or adenopathy. Abdominal aorta is normal caliber with minimal calcific athero sclerosis. Bowel loops reveal no abnormal wall thickening or distention. The appendix is unremarkable. Minimal colonic diverticulosis is present, without CT evidence of diverticulitis. CT pelvis: Prostate gland and seminal vesicles are stable. Urinary bladder is free of gross filling defects. No pelvic masses, fluid or adenopathy. Osseous structures reveal no destructive osseous lesions. Impression: 1. No acute abnormalities or CT explanation for reported history of abdominal pain. 2. Stable right adrenal nodule/adenoma. This document has been electronically signed by: James Winkler MD on 01/19/2025 16:47:53 Dictated By: James Winkler MD Signed By: <Electronically signed by James Winkler MD in OV> 01/19/258 DD/ 46 TD/TT: 01/19/251646 Test Lead: Procedure Note Donotuseinterpreter, Image - 01/19/[address] [place] [address] [address] Scan Report Signed Patient: Yuri Stokes MR#: [id number] : 1970Acct:[id number] Age/Sex: 54 / MADM Date: 01/19/25 Loc: HO.ED Attending Dr: Ordering Physician: Kassandra lA [facility] Date of Service: 01/19/25 Procedure(s): CT abdomen pelvis wo IV con Accession Number(s): [id number] cc: Mirtha Lunsford MD; Kassandra Al [facility] Report Number: [id number]: Total DLP = 639.00 mGy-cm Reason for Exam: Gen. Abd Pain CLINICAL HISTORY: Gen. Abd Pain Exam: Nonenhanced CT abdomen and pelvis with multiplanar reformats. Comparison: 09/13/2022. Findings: CT abdomen: Lung bases are clear. Liver is free of focal lesions and ductal dilatation. Gallbladder is unremarkable. Spleen is unremarkable. Pancreas and left adrenal gland appear unremarkable. Right adrenal gland reveals a stable 2.2 cm low-density adrenal nodule (4; 180, 3 Hounsfield units), likely stable adenoma. Left kidney is absent. Right kidney appears unremarkable. No free intraperitoneal fluid or retroperitoneal masses or adenopathy. Abdominal aorta is normal caliber with minimal calcific athero sclerosis. Bowel loops reveal no abnormal wall thickening or distention. The appendix is unremarkable. Minimal colonic diverticulosis is present, without CT evidence of diverticulitis. CT pelvis: Prostate gland and seminal vesicles are stable. Urinary bladder is free of gross filling defects. No pelvic masses, fluid or adenopathy. Osseous structures reveal no destructive osseous lesions. Impression: 1. No acute abnormalities or CT explanation for reported history of abdominal pain. 2. Stable right adrenal nodule/adenoma. This document has been electronically signed by: James Winkler MD on 01/19/2025 16:47:53 Dictated By: James Winkler MD Signed By: <Electronically signed by James Winkler MD in OV> 01/19/251647 DD/ 46 TD/TT: 01/19/251646 Test Lead: [facility] External Provider IMG CT PROCEDURES Final Result * (ABNORMAL) CBC auto differential (01/19/2025 12:50 PM EST) White Blood Count 12.1(H) 4.8 - 10.8 X10*3/uL [facility] Red Blood Count 5.14 4.60 - 5.80 X10*6/uL [facility] Hemoglobin 15.9 14.0 - 18.0 g/dl [facility] Hematocrit 47.5 42.0 - 52.0 % [facility] Mean Corpuscular Volume 92.4 80.0 - 98.0 fL [facility] Mean Corpuscular Hemoglobin 30.9 27.0 - 33.0 pg [facility] Mean Corpuscular HGB Conc 33.5 31.0 - 36.0 g/dl [facility] Red Cell Distribution Width 13.0 11.0 - 16.0 % [facility] Platelet Count 233 160 - 400 X10*3/uL [facility] Mean Platelet Volume 10.5 9.4 - 12.4 fL [facility] Neutrophils Percent Auto 70.9 45 - 73 % [facility] Imm Gran Pct Auto 1.7(H) 0.0 - 0.4 % [facility] Lymphocytes Percent Auto 15.5(L) 20 - 40 % [facility] Monocytes Percent Auto 9.4 2 - 11 % [facility] Eosinophils Percent Auto 2.1 0 - 4 % [facility] Basophils Percent Auto 0.4 0 - 2 % [facility] NRBC Pct Auto 0.0 0.0 - 0.2 /100WBC [facility] Neutrophils Absolute Auto 8.6(H) 2.0 - 8.3 x10*3/uL [facility] Imm Gran Abs Auto 0.21(H) 0.00 - 0.03 X10*3/uL [facility] Lymphocytes Absolute Auto 1.9 1.2 - 4.9 X10*3/uL [facility] Monocytes Absolute Auto 1.1 0.1 - 1.2 X10*3/uL [facility] Eosinophils Absolute Auto 0.3 0.0 - 0.4 X10*3/uL [facility] Basophils Absolute Auto 0.1 0.0 - 0.2 X10*3/uL [facility] NRBC Abs Auto 0.000 0.0 - 0.012 X10*3/uL [facility] 01/19/2025 12:5 0 PM EST 01/19/2025 12:53 PM EST Generic External Data Provider LAB BLOOD ORDERAB LES Final Result Performing Organization Address [facility] Co de Phone Number [facility] [address] [place] [phone] * Magnesium (01/19/2025 12:50 PM EST) [facility] Magnesium 2.4 1.6 - 2.6 mg/dL [facility] 01/19/2025 12:5 0 PM EST 01/19/2025 12:53 PM EST us Generic External Data Provider LAB BLOOD ORDERAB LES Final Result Performing Organization Address [facility] de Phone Number [facility] [address] [place] [phone] * Lipase (01/19/2025 12:50 PM EST) [facility] Lipase 49 8 - 78 U/L [facility] 01/19/2025 12:5 0 PM EST 01/19/2025 12:53 PM EST Generic External Data Provider LAB BLOOD ORDERAB LES Final Result Performing Organization Address [facility] de Phone Number [facility] [address] [place] [address] [phone] * (ABNORMAL) Comprehensive Metabolic Panel (01/19/2025 12:50 PM EST) [facility] Sodium 138 135 - 145 mmol/L [facility] Potassium 4.9 3.3 - 5.1 mmol/L [facility] Chloride 104 96 - 108 mmol/L [facility] Carbon Dioxide 24 22 - 29 mmol/L [facility] Anion Gap 15 12 - 20 [facility] Urea Nitrogen (BUN) 26(H) 9 - 16 mg/dL [facility] Creatinine, Serum 1.29 0.5 - 1.4 mg/dL [facility] Creatinine Clr Calc Pharmacy 71.2 [facility] Comment:eGFR (calculated fro m the MDRD study equation) and eCrCl(calculated from the Cockcroft-Gault equation) are based ondifferent parameters and may not yield comparable results.If eCrCl result is absurd, please check patient'sheight/weight. Estimated Glomerular Filt Rate 58 [facility] Comment:Chronic Kidney Disea se: Estimated GFR < 60 mL/min/1.68l9Efiuak Kidney Disease: Estimated GFR < 15 mL/min/1.73m2 Glucose 99 60 - 115 mg/dL [facility] Calcium 9.7 8.4 - 10.2 mg/dL [facility] Bilirubin, Total 0.5 0.0 - 1.0 mg/dL [facility] Aspartate Amino Transferase 29 5 - 37 U/L [facility] Alanine Aminotransferase 43(H) 0 - 40 U/L [facility] Total Protein 7.6 6.5 - 8.0 g/dL [facility] Albumin Level 4.6 3.5 - 5.0 g/dL [facility] Alkaline Phosphatase 122(H) 39 - 117 U/L [facility] 01/19/2025 12:5 0 PM EST 01/19/2025 12:53 PM EST us Generic External Data Provider LAB BLOOD ORDERAB LES Final Result [facility] [address] [place] [address] [phone] * Syphilis Screen (12/22/2024 7:26 AM EDT) Syphilis Screen Nonreactive Nonreactive [facility] Blood Venous blood specimen / Unknown 12/22/2024 7:26 AM EDT 12/22/2024 7:26 AM EDT Mirtha Lunsford MD LAB BLOOD ORDERABLES Final Result Performing Organization Address [facility]/ZIP Co de Phone Number [facility] [address] [place] [address] [phone] * Hepatitis C Antibody with Reflex to HCV, RNA, Quantitative, Real-Time PCR (12/22/2024 7:26 AM EDT) Hepatitis C Antibody Nonreactive Nonreactive [facility] Comment:Antibodies to HCV no t detected; does not exclude early acuteHCV infection. Blood Venous blood specimen / Unknown 12/22/2024 7:26 AM EDT 12/22/2024 7:26 AM EDT Mirtha Lunsford MD LAB BLOOD ORDERABLES Final Result Performing Organization Address City/[facility] Co de Phone Number [facility] [address] [place] [address] [phone] * HIV-1/2 Antigen and Antibodies, Fourth Generation, with Reflexes (12/22/2024 7:26 AM EDT) HIV AB/AG Nonreactive Nonreactive [facility] Comment:HIV-1 p24 Ag and/or HIV-1/HIV-2 Ab not detected.A test result that is nonreactive does not exclude thepossibility of exposure to or infection with HIV-1 and/orHIV-2. Nonreactive results in this assay for individualswith prior exposure to HIV-1 and/or HIV-2 may be due toantigen and antibody levels that are below the limit ofdetection of this assay.The [email or web address] HIV Ag/Ab Combo assay result andsupplemental assay results should be interpreted inconjunction with the patient's clinical presentation,history and other laboratory results. If the results areinconsistent with clinical evidence, additional testing issuggested to confirm the result. Blood Venous blood specimen / Unknown 12/22/2024 7:26 AM EDT 12/22/2024 7:26 AM EDT Mirtha Lunsford MD LAB BLOOD ORDERABLES Final Result [facility] [address] [place] [address] [phone] * PSA,Total (12/22/2024 7:26 AM EDT) Prostate Specific Antigen 1.84 <0.05 - 4.0 ng/mL [facility] Comment:PSA methodology: Abb ady Alimario i ChemiluminescentMicroparticle Immunoassay (CMIA) Blood Venous blood specimen / Unknown 12/22/2024 7:26 AM EDT 12/22/2024 7:26 AM EDT Mirtha Lunsford MD LAB BLOOD ORDERABLES Final Result Performing Organization Address City/[facility]/ZIP Co de Phone Number [facility] [address] [place] [address] [phone] * Chlamydia/N. Gonorrhoeae, PCR, Urine (12/22/2024 7:22 AM EDT) CT PCR, Urine NOT DETECTED Not Detect. [facility] Comment:A not detected test result [...] NG PCR, Urine NOT DETECTED Not Detect. [facility] Comment:A not detected test result [...] 7:22 AM EDT 12/22/2024 7:38 AM EDT us Mirtha Lunsford MD LAB URINE ORDERABLES Final Result [facility] [address] [place] [phone] * Lipid Panel, Standard (08/26/2023 9:11 AM EDT) Triglycerides 78 <150 mg/dL [facility] Comment:Desirable Triglyceri de: less than 150 mg/dLBorderline High Triglyceride 150-199 mg/dLHigh Triglyceride: 200-499 mg/dLVery High Triglyceride: greater than or equal to 5OO mg/dL Cholesterol 183 <200 mg/dL [facility] Comment:Desirable Cholestero l: less than 200 mg/dLBorderline High Cholesterol: 200-239 mg/dLHigh Cholesterol: greater than 239 mg/dL LDL Cholesterol Calculated 90 <100 mg/dL [facility] Comment:Desirable LDL: less than 100 mg/dLNear Optimal/Above Optimal LDL: 110- 129 mg/dLBorderline High LDL: 130-159 mg/dLHigh LDL: 160-189 mg/dLVery High LDL: greater than or equal to 190 mg/dL HDL Cholesterol 78 >40 mg/dL [facility] Comment:Desirable HDL: great er than 40 mg/dL Note: This HDL assay may give artificially low results in patients with liver disease. 08/26/2023 9:11 AM EDT 08/26/2023 11:07 AM EDT Mirtha Lunsford MD LAB BLOOD ORDERABLES Final Result [facility] [address] [place] [phone] [phone] * (ABNORMAL) Colonoscopy (07/08/2023) Colonoscopy Abnormal( A) Normal Comment:Multiple polyps with Dr. 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 Advance Directives and Living Will 12/19/2023 Health Care Proxy 12/19/23 Care Teams Trust And Estates Attorney Relationship Specialty Start Date End Date [place], MD Mirtha [address] [place] [address] PCP - General Family Medicine 03/04/15 Victoria Radford PharmD [address] [place] [address] Pharmacist Internal Medicine 08/03/22 Acosta Sinha FNP [address] [place] [address] Nurse Practitioner Family Medicine 01/17/23 Flip Wan MD [address] [place] [address] Pulmonary Disease 02/02/24 Dmitri Sequeira MD [address] [place] [phone] Nephrology 02/10/24 Stephane Pisano MD [address] [place] [address] 3rd Floor [place], [place] General Surgery 02/10/24 Melvin Claros MD [address] [place] [address] Cardiology 04/16/24 Artur Aguilar MD [address] [place] [address] Endocrinology 05/31/24 Suzette Bond MD [address] [place] [address] Orthopaedic Surgery 10/03/24 Ghassan [facility] Tube Former OperatorPearl Diver 02/07/24June,Joyce Hoover PA-C Lung Cancer Screening Program Radiology 07/31/24
--- OUTSIDE RECORDS SUMMARY | 2025-01-23 13:36 | XMS_ITS | Encounter Summary ---
Author Organization [employer] Address [address] [facility] 7t [place] [address] Care Team Providers Care Relationship Assoc Name Role Phone Mirtha Lunsford MD Primary Care Provider Victoria Radford PharmD Unavailable Acosta Sinha Unavailable Unavailable Flip Wan MD Unavailable [phone] Dmitri Sequeira MD Unavailable [phone] Stephane Pisano MD Unavailable Melvin Claros MD Unavailable [phone] Artur Aguilar MD Unavailable Suzette Bond MD Unavailable Reason for Visit * Reason Comments Med Refill Encounter Details Date Type Department Care Team (Late st Contact Info) Description 09/23/2022 Refill [facility] [address] [place] [address] Mirtha Lunsford MD [address] [place] [address] Seasonal allergies Social History Tobacco Use Types [...] Description 02/11/2025 8:00 AM EST Office Visit [facility] [address] [place] [address] Rebecca Capps 03/20/2025 10:15 AM EST Office Visit [facility] [address] [place] [address] Mirtha Lunsford MD [address] [place] [address] documented as of this encounter Goals Goal [...] documented as of this encounter Care Teams Relationship Assoc Relationship Specialty Start Date End Date Mirtha Lunsford MD [address] [place] [address] PCP - General Family Medicine 03/04/15 Victoria Radford, PharmD [address] [place] [address] Pharmacist Internal Medicine 08/03/22 Acosta Sinha FNP [address] [place] [address] Nurse Practitioner Family Medicine 01/17/23 Flip Wan MD [address] [place] [address] Pulmonary Disease 02/02/24 Dmitri Sequeira MD [address] [place] [address] Nephrology 02/10/24 Stephane Pisano MD [address] 3rd [place] [address] General Surgery 02/10/24 Melvin Claros MD [address] [place] [address] Cardiology 04/16/24 Artur Aguilar MD [address] [place] [address] Endocrinology 05/31/24 Suzette Bond MD [address] [place] [address] Orthopaedic Surgery 10/03/24 NARAYAN LICEA Allergist/ImmunologistData Developer 01/06/23 02/06/24 Ghassan Fletcher Allergist/ImmunologistData Developer 02/07/24 Joyce Espino PA-C Lung Cancer Screening Program Radiology 07/31/24 documented as of this encounter
--- OUTSIDE RECORDS SUMMARY | 2025-01-23 13:36 | XMS_ITS | Encounter Summary ---
Author Organization [employer] Address [address] [facility] [address] 7t [place] [address] Care Team Providers Care Care Aid Name Role Phone Mirtha Lunsford MD Primary Care Provider Victoria Radford PharmD Unavailable Acosta Sinha Unavailable Unavailable Flip Wan MD Unavailable [phone] Dmitri Sequeira MD Unavailable Stephane Pisano MD Unavailable Melvin Claros MD Unavailable [phone] Artur Aguilar MD Unavailable Suzette Bond MD Unavailable [phone] Reason for Visit * Reason Comments Med Refill Encounter Details Date Type Department Care Team (Late st Contact Info) Description 11/13/2022 Refill [facility] [address] [place], [place] [phone] Mirtha Lunsford MD [address] [place], [place] [phone] Essential hypertension (Primary Dx) Social History Tobacco [...] Visit [facility] ADULT DENT[facility] [address] [place] [address] Rebecca Capps 03/20/2025 10:15 AM EST Office Visit [facility] [address] [place] [address] Mirtha Lunsford MD [address] [place] [address] documented as of this encounter Goals Goal Patient Goal Type Associated Problems Recent Progress Patient-Stated? Author Blood Pressure < 140/90 Blood Pressure 118/80( 025 10:52 AM EST) No Victoria Mayo PharmD documented as of this encounter Visit Diagnoses Diagnosis Essential hypertension- Primary Unspecified essential hypertension documented in this encounter Additional Health Concerns Assessment Noted Time PHQ-9 Depression Total Score: 10 023 3:38 PM EDT documented as of this encounter Care Teams Care Aid Relationship Specialty Start Date End Date Mirtha Lunsford MD [address] [place] [address] PCP - General Family Medicine 03/04/15 Victoria Radford, PharmD [address] [place] [address] Pharmacist Internal Medicine 08/03/22 Acosta Sinha FNP [address] [place] [address] Nurse Practitioner Family Medicine 01/17/23 Flip Wan MD [address] [place] [address] Pulmonary Disease 02/02/24 Dmitri Sequeira MD [address] [place] [address] Nephrology 02/10/24 Stephane Pisano MD [address] 3rd [place] [address] General Surgery 02/10/24 Mevlin Claros MD [address] [place] [address] Cardiology 04/16/24 Artur Aguilar MD [address] [place] [address] Endocrinology 05/31/24 Suzette Bond MD [address] [place] [address] Orthopaedic Surgery 10/03/[address] JusticeTandem Mill Sticker 01/06/23 02/06/[address] JusticeTandem Mill Sticker 02/07/24 Kenzie,oJyce Hoover PA-C Lung Cancer Screening Program Radiology 07/31/24 documented as of this encounter
--- OUTSIDE RECORDS SUMMARY | 2025-01-23 13:36 | XMS_ITS | Encounter Summary ---
Author Organization [employer] Address [address] [facility] 7t [place] [address] Care Team Providers Care Scoop Driver Name Role Phone Mirtha Lunsford MD Primary Care Provider [phone] Victoria Radford PharmD Unavailable Acosta Sinha Unavailable Unavailable Flip Wan MD Unavailable [phone] Dmitri Sequeira MD Unavailable [phone] Stephane Pisano MD Unavailable [phone] Melvin Claros MD Unavailable [phone] Artur Aguilar MD Unavailable [phone] Suzette Bond MD Unavailable [phone] Reason for Visit * Reason Comments Med Refill Encounter Details Date Type Department Care Team (Late st Contact Info) Description 02/02/2023 Refill [facility] [address] [place] [address] Acosta Sinha FNP Social History Tobacco Use [...] Description 02/11/2025 8:00 AM EST Office Visit [facility] [address] [place] [address] Rebecca Capps 03/20/2025 10:15 AM EST Office Visit [facility] [address] [place] [address] Mirtha Lunsford MD [address] [place] [address] documented as of this encounter Goals Goal Patient Goal Type Associated Problems Recent Progress Patient-Stated? Author Blood Pressure < 140/90 Blood Pressure 118/80( 025 10:52 AM EST) No Piers-Gambl eVictoria, PharmD documented as of this encounter Visit Diagnoses Not on filedocumented in this encounter Additional Health Concerns Assessment Noted Time PHQ-9 Depression Total Score: 10 023 3:38 PM EDT documented as of this encounter Care Teams Scoop Driver Relationship Specialty Start Date End Date Mirtha Lunsford MD [address] [place] [address] PCP - General Family Medicine 03/04/15 Victoria Radford PharmD [address] [place] [address] Pharmacist Internal Medicine 08/03/22 Acosta Sinha FNP [address] [place] [address] Nurse Practitioner Family Medicine 01/17/23 Flip Wan MD [address] [place] [address] Pulmonary Disease 02/02/24 Dmitri Sequeira MD [address] [address] Nephrology 02/10/24 Stephane Pisano MD [address] 3rd [place] [address] General Surgery 02/10/24 Melvin Claros MD [address] [place] [address] Cardiology 04/16/24 Artur Aguilar MD [address] [place] [address] Endocrinology 05/31/24 Suzette Bond MD [address] [place] [address] Orthopaedic Surgery 10/03/24 NARAYAN LICEA Instrument SterilizerTread Cutter 01/06/23 02/06/24 Ghassan Fletcher Instrument SterilizerTread Cutter 02/07/24 Kenzie,Joyce Hoover PA-C Lung Cancer Screening Program Radiology 07/31/24 documented as of this encounter
--- OUTSIDE RECORDS SUMMARY | 2025-01-23 13:36 | XMS_ITS | Encounter Summary ---
Author Organization [employer] Address [address] [facility] 7t [place] [address] Care Team Providers Care Denture Technician Name Role Phone Mirtha Lunsford MD Primary Care Provider Victoria Radford PharmD Unavailable [phone] Acosta Sinha Unavailable Unavailable Flip Wan MD Unavailable [phone] Dmitri Sequeira MD Unavailable Stephane Pisano MD Unavailable [phone] Melvin Claros MD Unavailable [phone] Artur Aguilar MD Unavailable Suzette Bond MD Unavailable Reason for Visit * Reason Comments Med Refill Encounter Details Date Type Department Care Team (Late st Contact Info) Description 11/15/2022 Refill [facility] [address] [place] [address] Mirtha Lunsford MD [address] [place] [address] Seasonal allergies Social History Tobacco Use Types [...] Description 02/11/2025 8:00 AM EST Office Visit [facility] [address] [place] [address] Rebecca Capps 03/20/2025 10:15 AM EST Office Visit [facility] [address] [place] [address] Mirtha Lunsford MD [address] [place] [address] documented as of this encounter Goals Goal [...] documented as of this encounter Care Teams Denture Technician Relationship Specialty Start Date End Date Mirtha Lunsford MD [address] [place] [address] PCP - General Family Medicine 03/04/15 Victoria Radford, PharmD [address] [place] [address] Pharmacist Internal Medicine 08/03/22 Acosta Sinha FNP [address] [place] [address] Nurse Practitioner Family Medicine 01/17/23 Flip Wan MD [address] [place] [address] Pulmonary Disease 02/02/24 Dmitri Sequeira MD [address] [place] [address] Nephrology 02/10/24 Stephane Pisano MD [address] 3rd [place] [address] General Surgery 02/10/24 Melvin Claros MD [address] [place] [address] Cardiology 04/16/24 Artur Aguilar MD [address] [place] [address] Endocrinology 05/31/24 Suzette Bond MD [address] [place] [address] Orthopaedic Surgery 10/03/24 NARAYAN LICEA Community Recreation CoordinatorOperations Logistics Analyst 01/06/23 02/06/24 Ghassan Fletcher Community Recreation CoordinatorOperations Logistics Analyst 02/07/24 Joyce Espino PA-C Lung Cancer Screening Program Radiology 07/31/24 documented as of this encounter
--- OUTSIDE RECORDS SUMMARY | 2025-01-23 13:36 | XMS_ITS | Encounter Summary ---
Author Organization [employer] Address [address] [facility] [address] 7t [place] [address] Care Team Providers Care Supervisor Water Treatment Plant Name Role Phone Mirtha Lunsford MD Primary Care Provider [phone] Victoria Radford PharmD Unavailable Acosta Sinha AIRCRAFT METALSMITH Unavailable Unavailable Flip Wan MD Unavailable [phone] Dmitri Sequeira MD Unavailable [phone] Stephane Pisano MD Unavailable [phone] Melvin Claros MD Unavailable Artur Aguilar MD Unavailable Suzette Bond MD Unavailable [phone] Encounter Details Date Type Department Care Team (Late st Contact Info) Description 05/14/2024 Orders Only [facility] [address] [place], [place] [phone] Mirtha Lunsford MD [address] [place], [place] [phone] Class 1 obesity due to excess calories [...] Description 02/11/2025 8:00 AM EST Office Visit [facility] [address] [place] [address] Rebecca Capps 03/20/2025 10:15 AM EST Office Visit [facility] [address] [place] [address] Mirtha Lunsford MD [address] [place] [address] documented as of this encounter Goals Goal [...] documented as of this encounter Care Teams Supervisor Water Treatment Plant Relationship Specialty Start Date End Date Mirtha Lunsford MD [address] [place] [address] PCP - General Family Medicine 03/04/15 Victoria Radford, PharmD [address] [place] [address] Pharmacist Internal Medicine 08/03/22 Acosta Sinha FNP [address] [place] [address] Nurse Practitioner Family Medicine 01/17/23 Flip Wan MD [address] [place] [address] Pulmonary Disease 02/02/24 Dmitri Sequeira MD [address] [address] Nephrology 02/10/24 Stephane Pisano MD [address] [place] [address] 3rd [place] [address] General Surgery 02/10/24 Melvin Claros MD [address] [place] [address] Cardiology 04/16/24 Artur Aguilar MD [address] [place] [address] Endocrinology 05/31/24 Suzette Bond MD [address] [facility] [address] [place] [address] Orthopaedic Surgery 10/03/24 Ghassan Fletcher Marketing Content SpecialistDo All Operator 02/07/24June,Joyce Hoover PA-C Lung Cancer Screening Program Radiology 07/31/24 documented as of this encounter
--- OUTSIDE RECORDS SUMMARY | 2025-01-23 13:37 | XMS_ITS | Patient Health Record ---
Author Organization [facility] Address [address] [place] [address] Care Team Providers Care Solution Designer Name Role Phone Aleksandr Spangler Jr Reason For Referral No Information Plan Of Treatment No Information
--- OUTSIDE RECORDS SUMMARY | 2025-01-23 13:37 | XMS_ITS | Encounter Summary ---
Author Organization [employer] [facility] Address [address] [facility] 7t [place] [address] Care Team Providers Care Mixing Tank Operator Name Role Phone Mirtha Lunsford MD Primary Care Provider Victoria Radford PharmD Unavailable [phone] Acosta Sinha GRAVE DIGGER Unavailable Unavailable Flip Wan MD Unavailable [phone] Dmitri Sequeira MD Unavailable [phone] Stephane Pisano MD Unavailable Melvin Claros MD Unavailable Artur Aguilar MD Unavailable Suzette Bond MD Unavailable Encounter Details Date Type Department Care Team (Latest Contact Info) Description 07/25/2020 Abstract [facility] CONVERSIONS Dental, Provider, DDS Social History [...] Description 02/11/2025 8:00 AM EST Office Visit [facility] [address] [place] [phone] Rebecca Capps 03/20/2025 10:15 AM EST Office Visit [facility] [address] [place], [place] [phone] Mirtha Lunsford MD [address] [place] [address] documented as of this encounter Visit Diagnoses Not on filedocumented in this encounter Care Teams Mixing Tank Operator Relationship Specialty Start Date End Date Mirtha Lunsford MD [address] [place] [address] PCP - General Family Medicine 03/04/15 Victoria Radford, GypsyD [address] [place] [address] Pharmacist Internal Medicine 08/03/22 Acosta Sinha FNP [address] [place] [address] Nurse Practitioner Family Medicine 01/17/23 Flip Wan MD 5 [place] [address] Pulmonary Disease 02/02/24 Dmitri Sequeira MD 100 [facility] 200 [place] [address] Nephrology 02/10/24 Stephane Pisano MD 11 [facility] 3rd [place] [address] General Surgery 02/10/24 Melvin Claros MD 5[address] [place] [address] Cardiology 04/16/24 Artur Aguilar MD [address] [place] [address] Endocrinology 05/31/24 Suzette Bond MD [address] [place] [address] Orthopaedic Surgery 10/03/24 NARAYAN LICEA Hog PusherBinder Operator 01/06/23 02/06/24 Ghassan Fletcher Hog PusherBinder Operator 02/07/24 May,Joyce Hoover PA-C Lung Cancer Screening Program Radiology 07/31/24 documented as of this encounter
--- OUTSIDE RECORDS SUMMARY | 2025-01-23 13:37 | XMS_ITS | Encounter Summary ---
Author Organization [employer] Address 75 [facility] 7t [place] [address] Care Team Providers Care Internal Controls Consultant Name Role Phone Mirtha Lunsford MD Primary Care Provider Victoria Radford PharmD Unavailable Acosta Sinha Unavailable Unavailable Flip Wan MD Unavailable [phone] Dmitri Sequeira MD Unavailable [phone] Stephane Pisano MD Unavailable Melvin Claros MD Unavailable [phone] Artur Aguilar MD Unavailable Suzette Bond MD Unavailable Reason for Visit * Reason Comments Med Refill Encounter Details Date Type Department Care Team (Late st Contact Info) Description 04/03/2024 Refill [facility] MEDICINE [address] [place], [place] [phone] Mirtha Lunsford MD 230 [place], [place] [phone] Mild intermittent asthma without complication Social History [...] Description 02/11/2025 8:00 AM EST Office Visit [facility] ADULT DENTAL 230 [place], [place] [phone] Rebecca Capps 03/20/2025 10:15 AM EST Office Visit [facility] MEDICINE 230 [place] [address] Mirtha Lunsford MD 230 [place] [address] documented as of this encounter Goals Goal [...] documented as of this encounter Care Teams Internal Controls Consultant Relationship Specialty Start Date End Date Mirtha Lunsford MD 230 [place] [address] PCP - General Family Medicine 03/04/15 Victoria Radford, PharmD [address] [place] [address] Pharmacist Internal Medicine 08/03/22 Acosta Sinha FNP [address] [place] [address] Nurse Practitioner Family Medicine 01/17/23 Flip Wan MD [address] [place] [address] Pulmonary Disease 02/02/24 Dmitri Sequeira MD [address] [address] Nephrology 02/10/24 Stephane Pisano MD [address] [place] [address] 3rd [place] [address] General Surgery 02/10/24 Melvin Claros MD 596 [place] [address] Cardiology 04/16/24 Artur Aguilar MD [address] [place] [address] Endocrinology 05/31/24 Suzette Bond MD [address] [place] [address] Orthopaedic Surgery 10/03/24 Ghassan Fletcher Circulation AnalystEcho Tech 02/07/24June,Joyce Hoover PA-C Lung Cancer Screening Program Radiology 07/31/24 documented as of this encounter
--- OUTSIDE RECORDS SUMMARY | 2025-01-23 13:37 | XMS_ITS | Encounter Summary ---
Author Organization [employer] Address 75 [facility] 7t [place] [address] Care Team Providers Care Shoe Stitcher Name Role Phone Mirtha Lunsford MD Primary Care Provider [phone] Victoria Radford PharmD Unavailable [phone] Acosta Sinha FARM EQUIPMENT TECHNICIAN Unavailable Unavailable Flip Wan MD Unavailable [phone] Dmitri Sequeira MD Unavailable [phone] Stephane Pisano MD Unavailable [phone] Melvin Claros MD Unavailable Artur Aguilar MD Unavailable [phone] Suzette Bond MD Unavailable Encounter Details Date Type Department Care Team (Late st Contact Info) Description 08/24/2023 Abstract [facility] MEDICINE 230 [place], [place] [phone] Mirtha Lunsford MD 230 [place], [place] [phone] Social History Tobacco Use Types Packs/Day Years [...] Description 02/11/2025 8:00 AM EST Office Visit [facility] ADULT DENTAL [address] [place] [address] Rebecca Capps 03/20/2025 10:15 AM EST Office Visit [facility] MEDICINE 230 [place] [address] Mirtha Lunsford MD 230 [place] [address] documented as of this encounter Goals Goal Patient Goal Type Associated Problems Recent Progress Patient-Stated? Author Blood Pressure < 140/90 Blood Pressure 118/80( 025 10:52 AM EST) No Piers-Gambl e, Victoria, PharmD Reduce tobacco use (cigarettes, smokeless, etc) Tobacco Use No Piers-Gambl e, Victoria, PharmD documented as of this encounter Procedures Procedure Name Priority Date/Time Associated Diagnosis Comments COLONOSCOPY Routine 08/24/2023 2:44 PM EDT documented in this encounter Visit Diagnoses Not on filedocumented in this encounter Additional Health Concerns Assessment Noted Time PHQ-9 Depression Total Score: 0 06/17/19 9:26 AM EDT documented as of this encounter Care Teams Shoe Stitcher Relationship Specialty Start Date End Date Mirtha Lunsford MD 230 [place] [address] PCP - General Family Medicine 03/04/15 Victoria Radford PharmD 230 [place] [address] Pharmacist Internal Medicine 08/03/22 Acosta Sinha FNP [address] [place] [address] Nurse Practitioner Family Medicine 01/17/23 Flip Wan MD 5 [place] [address] Pulmonary Disease 02/02/24 Dmitri Sequeira MD [address] [address] Nephrology 02/10/24 Stephane Pisano MD 11 [facility] 3rd [place] [address] General Surgery 02/10/24 Melvin Claros MD 596 [place] [address] Cardiology 04/16/24 Artur Aguilar MD [address] [place] [address] Endocrinology 05/31/24 Suzette Bond MD [address] [facility] [address] [place] [address] Orthopaedic Surgery 10/03/24 NARAYAN LICEA Wire Rope Sling MakerSecond Cutter 01/06/23 02/06/24 Ghassan Fletcher Wire Rope Sling MakerSecond Cutter 02/07/24 May,Joyce Hoover PA-C Lung Cancer Screening Program Radiology 07/31/24 documented as of this encounter
--- OUTSIDE RECORDS SUMMARY | 2025-01-23 13:37 | XMS_ITS | Encounter Summary ---
Author Organization [employer] Address [address] [facility] [address] 7t [place] [address] Care Team Providers Care Horse Buyer Name Role Phone Mirtha Lunsford MD Primary Care Provider [phone] Victoria Radford PharmD Unavailable [phone] Acosta Sinha Unavailable Unavailable Flip Wan MD Unavailable [phone] Dmitri Sequeira MD Unavailable [phone] Stephane Pisano MD Unavailable Melvin Claros MD Unavailable [phone] Artur Aguilar MD Unavailable [phone] Suzette Bond MD Unavailable [phone] Encounter Details Date Type Department Care Team (Latest Contact Info) Description 01/22/2025 Travel Social History Tobacco Use Types Packs/Day [...] Description 02/11/2025 8:00 AM EST Office Visit [facility] ADULT DENTAL 230 [place] [address] Rebecca Capps 03/20/2025 10:15 AM EST Office Visit [facility] MEDICINE 230 [place] [address] Mirtha Lunsford MD 230 [place] [address] documented as of this encounter Goals Goal [...] documented as of this encounter Care Teams Horse Buyer Relationship Specialty Start Date End Date Mirtha Lunsford MD 230 [place] [address] PCP - General Family Medicine 03/04/15 Victoria Radford, PharmD 230 [place] [address] Pharmacist Internal Medicine 08/03/22 Acosta Sinha FNP [address] [place] [address] Nurse Practitioner Family Medicine 01/17/23 Flip Wan MD 5 [place] [address] Pulmonary Disease 02/02/24 Dmitri Sequeira MD [address] [address] Nephrology 02/10/24 Stephane Pisano MD 11 [facility] 3rd [place] [address] General Surgery 02/10/24 Melvin Claros MD 596 [place] [address] Cardiology 04/16/24 Artur Aguilar MD [address] [place] [address] Endocrinology 05/31/24 Suzette Bond MD [address] [facility] [address] [place] [address] Orthopaedic Surgery 10/03/24 Ghassan Fletcher Soot BlowerSupervisor [employer] 02/07/24June,Joyce Hoover PA-C Lung Cancer Screening Program Radiology 07/31/24 documented as of this encounter
--- OUTSIDE RECORDS SUMMARY | 2025-01-23 13:37 | XMS_ITS | Encounter Summary ---
Author Organization [employer] Address 75 [facility] 7t [place] [address] Care Team Providers Care Looping Inspector Name Role Phone Mirtha Lunsford MD Primary Care Provider Victoria Radford PharmD Unavailable [phone] Acosta Sinha Unavailable Unavailable Flip Wan MD Unavailable [phone] Dmitri Sequeira MD Unavailable Stephane Pisano MD Unavailable Melvin Claros MD Unavailable Artur Aguilar MD Unavailable Suzette Bond MD Unavailable Reason for Visit * Reason Comments Med Refill Encounter Details Date Type Department Care Team (Late st Contact Info) Description 01/04/2024 Refill [facility] 230 [place], [place] [phone] Shayla Ferrer DO 230 [place], [place] [phone] Social History Tobacco Use Types Packs/Day Years [...] 02/11/2025 8:00 AM EST Office Visit [facility] ADULT DENTAL 230 [place], [place] [phone] Rebecca Capps 03/20/2025 10:15 AM EST Office Visit [facility] 230 [place] [address] Mirtha Lunsford MD 230 [place], [place] [phone] documented as of this encounter Goals Goal [...] documented as of this encounter Care Teams Looping Inspector Relationship Specialty Start Date End Date Mirtha Lunsford MD 230 [place] [address] PCP - General Family Medicine 03/04/15 Victoria Radford, PharmD [address] [place] [address] Pharmacist Internal Medicine 08/03/22 Acosta Sinha FNP 230 [place] [address] Nurse Practitioner Family Medicine 01/17/23 Flip Wan MD 5 [place] [address] Pulmonary Disease 02/02/24 Dmitri Sequeira MD [address] [address] Nephrology 02/10/24 Stephane Pisano MD 11 [facility] 3rd [place] [address] General Surgery 02/10/24 Melvin Claros MD 596 [place] [address] Cardiology 04/16/24 Artur Aguilar MD [address] [place] [address] Endocrinology 05/31/24 Suzette Bond MD [address] [place] [address] Orthopaedic Surgery 10/03/24 NARAYAN LICEA Life Sciences ManagerUnix Architect 01/06/23 02/06/24 Ghassan Fletcher Life Sciences ManagerUnix Architect 02/07/24 Joyce Espino PA-C Lung Cancer Screening Program Radiology 07/31/24 documented as of this encounter
--- OUTSIDE RECORDS SUMMARY | 2025-01-23 13:37 | XMS_ITS | Encounter Summary ---
Author Organization [employer] Address 75 [facility] 7t [place] [address] Care Team Providers Care Parts Counter Specialist Name Role Phone Mirtha Lunsford MD Primary Care Provider Victoria Radford PharmD Unavailable Acosta Sinha Unavailable Unavailable Flip Wan MD Unavailable [phone] Dmitri Sequeira MD Unavailable Stephane Pisano MD Unavailable [phone] Melvin Claros MD Unavailable Artur Aguilar MD Unavailable [phone] Suzette Bond MD Unavailable Reason for Visit * Reason Comments Med Refill Encounter Details Date Type Department Care Team (Late st Contact Info) Description 01/17/[address] [facility] MEDICINE 230 [place], [place] [phone] Mirtha Lunsford MD 230 [place], [place] [phone] Dyslipidemia Social History Tobacco Use Types Packs/Day [...] Description 02/11/2025 8:00 AM EST Office Visit [facility] ADULT DENTAL 230 [place] [address] Rebecca Capps 03/20/2025 10:15 AM EST Office Visit [facility] MEDICINE 230 [place] [address] Mirtha Lunsford MD 230 [place] [address] documented as of this encounter Goals Goal [...] documented as of this encounter Care Teams Parts Counter Specialist Relationship Specialty Start Date End Date Mirtha Lunsford MD 230 [place] [address] PCP - General Family Medicine 03/04/15 Victoria Radford PharmD [address] [place] [address] Pharmacist Internal Medicine 08/03/22 Acosta Sinha FNP 230 [place], [place] Nurse Practitioner Family Medicine 01/17/23 Flip Wan MD 5 [place] [address] Pulmonary Disease 02/02/24 Dmitri Sequeira MD 100 [facility] 200 [place] [address] Nephrology 02/10/24 Stephane Pisano MD 11 [facility] 3rd [place] [address] General Surgery 02/10/24 Melvin Claros MD 596 [place] [address] Cardiology 04/16/24 Artur Aguilar MD [address] [place] [address] Endocrinology 05/31/24 Suzette Bond MD [address] [place] [address] Orthopaedic Surgery 10/03/24 Ghassan Fletcher Tack WelderEqual Opportunity Assistant 02/07/24June,Joyce Hoover PA-C Lung Cancer Screening Program Radiology 07/31/24 documented as of this encounter
--- OUTSIDE RECORDS SUMMARY | 2025-01-23 13:37 | XMS_ITS | Encounter Summary ---
Author Organization [employer] Address 75 [facility] 7t [place] [address] Care Team Providers Care Hearing Aid Technician Name Role Phone Mirtha Lunsford MD Primary Care Provider Victoria Radford PharmD Unavailable Acosta Sinha Unavailable Unavailable Flip Wan MD Unavailable [phone] Dmitri Sequeira MD Unavailable Stephane Pisano MD Unavailable [phone] Melvin Claros MD Unavailable Artur Aguilar MD Unavailable Suzette Bond MD Unavailable [phone] Reason for Visit * Reason Comments Med Refill Encounter Details Date Type Department Care Team (Late st Contact Info) Description 04/12/2024 Refill [facility] MEDICINE 230 [place], [place] [phone] Mirtha Lunsford MD 230 [place], [place] [phone] Moderate persistent asthma without complication Social History [...] Description 02/11/2025 8:00 AM EST Office Visit [facility] ADULT DENTAL 230 [place], [place] [phone] Rebecca Capps 03/20/2025 10:15 AM EST Office Visit [facility] MEDICINE 230 [place] [address] Mirtha Lunsford MD 230 [place] [address] documented as of this encounter Goals Goal [...] as of this encounter Care Teams Hearing Aid Technician Relationship Specialty Start Date End Date Mirtha Lunsford MD 230 [place] [address] PCP - General Family Medicine 03/04/15 Victoria Radford, PharmD [address] [place] [address] Pharmacist Internal Medicine 08/03/22 Acosta Sinha FNP [address] [place] [address] Nurse Practitioner Family Medicine 01/17/23 Flip Wan MD [address] [place] [address] Pulmonary Disease 02/02/24 Dmitri Sequeira MD [address] [address] Nephrology 02/10/24 Stephane Pisano MD [address] [place] [address] 3rd [place] [address] General Surgery 02/10/24 Melvin Claros MD 596 [place] [address] Cardiology 04/16/24 Artur Aguilar MD [address] [place] [address] Endocrinology 05/31/24 Suzette Bond MD [address] [place] [address] Orthopaedic Surgery 10/03/24 Ghassan Fletcher Instructional AssistantEarly Childhood Teacher 02/07/24June,Joyce Hoover PA-C Lung Cancer Screening Program Radiology 07/31/24 documented as of this encounter
--- OUTSIDE RECORDS SUMMARY | 2025-01-23 13:37 | XMS_ITS | Encounter Summary ---
Author Organization [employer] Address [address] [facility] [address] 7t [place] [address] Care Team Providers Care Neon Sign Maker Name Role Phone Mirtha Lunsford MD Primary Care Provider Victoria Radford PharmD Unavailable Acosta Sinha Unavailable Unavailable Flip Wan MD Unavailable [phone] Dmitri Sequeira MD Unavailable [phone] Stephane Pisano MD Unavailable [phone] Melvin Claros MD Unavailable Artur Aguilar MD Unavailable Suzette Bond MD Unavailable [phone] Reason for Visit * Reason Comments Med Refill Encounter Details Date Type Department Care Team (Late st Contact Info) Description 12/29/2023 Refill [facility] MEDICINE 230 [place], [place] [phone] Anya Muller ANP 230 [place], [place] [phone] Essential hypertension Social History Tobacco Use Types [...] [facility] ADULT DENTAL 230 [place] [address] Rebecca Capps 03/20/2025 10:15 AM EST Office Visit [facility] MEDICINE 230 [place] [address] Mirtha Lusnford MD 230 [place] [address] documented as of this encounter Goals Goal Patient Goal Type Associated Problems Recent Progress Patient-Stated? Author Blood Pressure < 140/90 Blood Pressure 118/80( 025 10:52 AM EST) No Victoria Mayo PharmNaresh Reduce tobacco use (cigarettes, smokeless, etc) Tobacco Use No Victoria Mayo PharmD documented as of this encounter Visit Diagnoses Diagnosis Essential hypertension Unspecified essential hypertension documented in this encounter Additional Health Concerns Assessment Noted Time PHQ-9 Depression Total Score: 0 06/17/19 24 9:26 AM EDT documented as of this encounter Care Teams Neon Sign Maker Relationship Specialty Start Date End Date Mirtha Lunsford MD 230 [place] [address] PCP - General Family Medicine 03/04/15 Victoria Radford, PharmD 230 [place] [address] Pharmacist Internal Medicine 08/03/22 Acosta Sinha FNP 230 [place] [address] Nurse Practitioner Family Medicine 01/17/23 Flip Wan MD 5 [place] [address] Pulmonary Disease 02/02/24 Dmitri Sequeira MD [address] [address] Nephrology 02/10/24 Stephane Pisano MD 11 [facility] 3rd [place] [address] General Surgery 02/10/24 Melvin Claros MD 596 [place] [address] Cardiology 04/16/24 Artur Aguilar MD [address] [place] [address] Endocrinology 05/31/24 Suzette Bond MD [address] [place] [address] Orthopaedic Surgery 10/03/24 NARAYAN LICEA Management ProfessorLarge Engine Assembler 01/06/23 02/06/24 Ghassan Fletcher Management ProfessorLarge Engine Assembler 02/07/24 Joyce Espino PA-C Lung Cancer Screening Program Radiology 07/31/24 documented as of this encounter
--- OUTSIDE RECORDS SUMMARY | 2025-01-23 13:37 | XMS_ITS | Encounter Summary ---
Author Organization [employer] Address 75 [facility] 7t [place] [address] Care Team Providers Care Cinder Crew Worker Name Role Phone Mirtha Lunsford MD Primary Care Provider Victoria Radford PharmD Unavailable [phone] Acosta Sinha Unavailable Unavailable Flip Wan MD Unavailable [phone] Dmitri Sequeira MD Unavailable [phone] Stephane Pisano MD Unavailable Melvin Claros MD Unavailable [phone] Artur Aguilar MD Unavailable [phone] Suzette Bond MD Unavailable Reason for Visit * Reason Comments Med Refill Encounter Details Date Type Department Care Team (Late st Contact Info) Description 09/06/2023 Refill [facility] MEDICINE 230 [place], [place] [phone] Mirtha Lunsford MD 230 [place], [place] [phone] Social History Tobacco Use Types Packs/Day Years [...] is your housing situation today? I have nvaa laureano 08/29/[address] you [...] Description 02/11/2025 8:00 AM EST Office Visit [facility] ADULT DENTAL [address] [place] [address] Rebecca Capps 03/20/2025 10:15 AM EST Office Visit [facility] MEDICINE 230 [place] [address] Mirtha Lunsford MD 230 [place] [address] documented as of this encounter Goals Goal [...] documented as of this encounter Care Teams Cinder Crew Worker Relationship Specialty Start Date End Date Mirtha Lunsford MD 230 [place] [address] PCP - General Family Medicine 03/04/15 Victoria Radford, GypsyD [address] [place] [address] Pharmacist Internal Medicine 08/03/22 Acosta Sinha FNP [address] [place] [address] Nurse Practitioner Family Medicine 01/17/23 Flip Wan MD 5 [place] [address] Pulmonary Disease 02/02/24 Dmitri Sequeira MD 100 [facility] 200 [place] [address] Nephrology 02/10/24 Stephane Pisano MD 11 [facility] 3rd [place] [address] General Surgery 02/10/24 Melvin Claros MD 596 [place] [address] Cardiology 04/16/24 Artur Aguilar MD [address] [place] [address] Endocrinology 05/31/24 Suzette Bond MD [address] [facility] [address] [place] [address] Orthopaedic Surgery 10/03/24 NARAYAN LICEA Insurance ClerkSolar Resource Assessor 01/06/23 02/06/24 Ghassan Fletcher Insurance ClerkSolar Resource Assessor 02/07/24June,Joyce Hoover PA-C Lung Cancer Screening Program Radiology 07/31/24 documented as of this encounter
--- OUTSIDE RECORDS SUMMARY | 2025-01-23 13:37 | XMS_ITS | Encounter Summary ---
Author Organization [employer] Address [address] 7t [place] [address] Care Team Providers Care Bottom Precipitator Operator Name Role Phone Mirtha Lunsford MD Primary Care Provider [phone] Victoria Radford PharmD Unavailable [phone] Acosta Sinha Unavailable Unavailable Flip Wan MD Unavailable [phone] Dmitri Sequeira MD Unavailable Stephane Pisano MD Unavailable Melvin Claros MD Unavailable Artur Aguilar MD Unavailable Suzette Bond MD Unavailable Encounter Details Date Type Department Care Team (Late st Contact Info) Description 01/19/2025 Orders Only GENERIC EXTERNAL DATA DEPARTMENT Provider, Generic External Data 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 (Primary Dx) Social History Tobacco Use Types [...] 02/11/2025 8:00 AM EST Office Visit [facility] ADULT DENTAL [address] [place] [address] Rebecca Capps 03/20/2025 10:15 AM EST Office Visit [facility] MEDICINE [address] [place] [address] Mirtha Lunsford MD 230 [place] [address] documented as of this encounter Goals Goal [...] WO CONTRAST Routine 01/19/2025 4:47 PM EST CBC WITH AUTO DIFFERENTIAL Routine 01/19/2025 12:50 PM EST MAGNESIUM Routine 01/19/2025 12:50 PM EST LIPASE Routine 01/19/2025 12:50 PM EST COMPREHENSIVE METABOLIC PANEL Routine 01/19/2025 12:50 PM EST documented in this encounter Results * CT Abdomen Pelvis w/o Contrast (01/19/2025 4:47 PM EST) Anatomical Region Laterality Modality Body, Pelvis, Abdomen Computed T omography 01/19/2025 4:47 PM EST Narrative 01/19/2025 4:49 PM EST [place] [address] CT Scan Report Signed Patient: Yuri Stokes MR#: [id number] : 1970 Acct:[id number] Age/Sex: 54 / M ADM Date: 01/19/25 Loc: .ED Attending Dr: [facility]: [facility]/19/25 Procedure(s): CT abdomen pelvis wo IV con Accession Number(s): [id number] cc: Mirtha Lunsford MD; Kassandra Al [facility] Report Number: [id number]: Total DLP = 639.00 mGy-cm Reason for [...] in OV> 01/19/251647 DD/ 46 TD/TT: 01/19/251646 Production Dispatcher: Procedure Note Donotuseinterpreter, Image - 01/19/[address] [place] [address] [address] Scan Report Signed Patient: Yuri Stokes MR#: [id number] : 1970Acct:[id number] Age/Sex: 54 / MADM Date: 01/19/25 Loc: HO.ED Attending Dr: Ordering Physician: Kassandra Al [facility] Date of Service: 01/19/25 Procedure(s): CT abdomen pelvis wo IV con Accession Number(s): [id number] cc: Mirtha Lunsford MD; Kassandra Al [facility]- Report Number: [id number]: Total DLP = 639.00 mGy-cm Reason for [...] signed by James Winkler MD in OV> 01/19/25 1648 DD/ 1647 TD/TT: 01/19/25 164 Production Dispatcher: [facility] External Provider IMG CT PROCEDURES Final Result * Lipase (01/19/2025 12:50 PM EST) Lipase 49 8 - 78 U/L [facility] 01/19/2025 12:5 0 PM EST 01/19/2025 12:53 PM EST Generic External Data Provider LAB BLOOD ORDERAB LES Final Result [facility] [address] [place] [phone] * Magnesium (01/19/2025 12:50 PM EST) Magnesium 2.4 1.6 - 2.6 mg/dL [facility] 01/19/2025 12:5 0 PM EST 01/19/2025 12:53 PM EST us Generic External Data Provider LAB BLOOD ORDERAB LES Final Result [facility] [address] [place] [address] [phone] * (ABNORMAL) Comprehensive Metabolic Panel (01/19/2025 12:50 PM EST) Sodium 138 135 - 145 mmol/L [facility] Potassium 4.9 3.3 - 5.1 mmol/L [facility] Chloride 104 96 - 108 mmol/L [facility] Carbon Dioxide 24 22 - 29 mmol/L [facility] Anion Gap 15 12 - 20 [facility] Urea Nitrogen (BUN) 26(H) 9 - 16 mg/dL [facility] Creatinine, Serum 1.29 0.5 - 1.4 mg/dL [facility] Creatinine Clr Calc Pharmacy 71.2 [facility] Comment:eGFR (calculated fro m the MDRD study equation) and eCrCl(calculated from the Cockcroft-Gault equation) are based ondifferent parameters and may not yield comparable results.If eCrCl result is absurd, please check patient'sheight/weight. Estimated Glomerular Filt Rate 58 [facility] Comment:Chronic Kidney Disea se: Estimated GFR < 60 mL/min/1.61o4Wjyuer Kidney Disease: Estimated GFR < 15 mL/min/1.73m2 Glucose 99 60 - 115 mg/dL [facility] Calcium 9.7 8.4 - 10.2 mg/dL [facility] Bilirubin, Total 0.5 0.0 - 1.0 mg/dL [facility] Aspartate Amino Transferase 29 5 - 37 U/L [facility] Alanine Aminotransferase 43(H) 0 - 40 U/L [facility] Total Protein 7.6 6.5 - 8.0 g/dL [facility] Albumin Level 4.6 3.5 - 5.0 g/dL [facility] Alkaline Phosphatase 122(H) 39 - 117 U/L [facility] 01/19/2025 12:5 0 PM EST 01/19/2025 12:53 PM EST us Generic External Data Provider LAB BLOOD ORDERAB LES Final Result [facility] [address] [place] [address] [phone] * (ABNORMAL) CBC auto differential (01/19/2025 12:50 PM EST) White Blood Count 12.1(H) 4.8 - 10.8 X10*3/uL [facility] Red Blood Count 5.14 4.60 - 5.80 X10*6/uL [facility] Hemoglobin 15.9 14.0 - 18.0 g/dl [facility] Hematocrit 47.5 42.0 - 52.0 % [facility] Mean Corpuscular Volume 92.4 80.0 - 98.0 fL [facility] Mean Corpuscular Hemoglobin 30.9 27.0 - 33.0 pg [facility] Mean Corpuscular HGB Conc 33.5 31.0 - 36.0 g/dl [facility] Red Cell Distribution Width 13.0 11.0 - 16.0 % [facility] Platelet Count 233 160 - 400 X10*3/uL [facility] Mean Platelet Volume 10.5 9.4 - 12.4 fL [facility] Neutrophils Percent Auto 70.9 45 - 73 % [facility] Imm Gran Pct Auto 1.7(H) 0.0 - 0.4 % [facility] Lymphocytes Percent Auto 15.5(L) 20 - 40 % [facility] Monocytes Percent Auto 9.4 2 - 11 % [facility] Eosinophils Percent Auto 2.1 0 - 4 % [facility] Basophils Percent Auto 0.4 0 - 2 % [facility] NRBC Pct Auto 0.0 0.0 - 0.2 /100WBC [facility] Neutrophils Absolute Auto 8.6(H) 2.0 - 8.3 x10*3/uL [facility] Imm Gran Abs Auto 0.21(H) 0.00 - 0.03 X10*3/uL [facility] Lymphocytes Absolute Auto 1.9 1.2 - 4.9 X10*3/uL [facility] Monocytes Absolute Auto 1.1 0.1 - 1.2 X10*3/uL [facility] Eosinophils Absolute Auto 0.3 0.0 - 0.4 X10*3/uL [facility] Basophils Absolute Auto 0.1 0.0 - 0.2 X10*3/uL [facility] NRBC Abs Auto 0.000 0.0 - 0.012 X10*3/uL [facility] 01/19/2025 12:5 0 PM EST 01/19/2025 12:53 PM EST us Generic External Data Provider LAB BLOOD ORDERAB LES Final Result Performing Organization Address City/State/[facility] Co de Phone Number [facility] [address] [place] [address] [phone] documented in this encounter Visit Diagnoses Diagnosis 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- Primary documented in this encounter Additional Health Concerns Assessment Noted Time PHQ-9 Depression Total Score: 0 06/19/19 25 9:06 AM EDT documented as of this encounter Care Teams Bottom Precipitator Operator Relationship Specialty Start Date End Date iMrtha Lunsford MD [address] [place] [address] PCP - General Family Medicine 03/04/15 Victoria Radford PharmD [address] [place] [address] Pharmacist Internal Medicine 08/03/22 Acosta Sinha FNP [address] [place] [address] Nurse Practitioner Family Medicine 01/17/23 Flip Wan MD [address] [place] [address] Pulmonary Disease 02/02/24 Dmitri Sequeira MD [address] [place] [address] Nephrology 02/10/24 Stephane Pisano MD [address] 3rd [place] [address] General Surgery 02/10/24 Melvin Claros MD [address] [place] [address] Cardiology 04/16/24 Artur Aguilar MD [address] [place] [address] Endocrinology 05/31/24 Suzette Bond MD [address] [place] [address] Orthopaedic Surgery 10/03/24 Ghassan Fletcher Core Shaper SidesSoda Maker 02/07/24June,Joyce Hoover PA-C Lung Cancer Screening Program Radiology 07/31/24 documented as of this encounter
--- OUTSIDE RECORDS SUMMARY | 2025-01-23 13:37 | XMS_ITS | Encounter Summary ---
Author Organization [employer] Address [address] [facility] 7t [place] [address] Care Team Providers Care Hot Pipe Gauger Name Role Phone Mirtha Lunsford MD Primary Care Provider [phone] Victoria Radford PharmD Unavailable Acosta Sinha UNIT SECY Unavailable Unavailable Flip Wan MD Unavailable [phone] Dmitri Sequeira MD Unavailable Stephane Pisano MD Unavailable Melvin Claros MD Unavailable Artur Aguilar MD Unavailable Suzette Bond MD Unavailable Encounter Details Date Type Department Care Team (Late st Contact Info) Description 09/08/[address] [facility] MEDICINE [address] [place], [place] [phone] Mirtha Lunfsord MD [address] [place], [place] [phone] Social History Tobacco Use Types Packs/Day Years [...] 02/11/2025 8:00 AM EST Office Visit [facility] ADULT DENTAL [address] [place] [address] Rebecca Capsp 03/20/2025 10:15 AM EST Office Visit [facility] MED[facility] [address] [place] [address] Mirtha Lunsford MD [address] [place] [address] documented as of this encounter Goals Goal [...] documented as of this encounter Care Teams Hot Pipe Gauger Relationship Specialty Start Date End Date Mirtha Lunsford MD [address] [place] [address] PCP - General Family Medicine 03/04/15 Victoria Radford, PharmD [address] [place] [address] Pharmacist Internal Medicine 08/03/22 Acosta Sinha FNP [address] [place] [address] Nurse Practitioner Family Medicine 01/17/23 Flip Wan MD [address] [place] [address] Pulmonary Disease 02/02/24 Dmitri Sequeira MD [address] [phone] Nephrology 02/10/24 Stephane Pisano MD [address] 3rd [place] [address] General Surgery 02/10/24 Melvin Claros MD [address] [place] [address] Cardiology 04/16/24 Artur Aguilar MD [address] [place] [address] Endocrinology 05/31/24 Suzette Bond MD [address] [place] [address] Orthopaedic Surgery 10/03/[address] And BuildingPlant Operations Coordinator 01/06/23 02/06/[address] And BuildingPlant Operations Coordinator 02/07/24 Joyce Espino PA-C Lung Cancer Screening Program Radiology 07/31/24 documented as of this encounter
--- OUTSIDE RECORDS SUMMARY | 2025-01-23 13:37 | XMS_ITS | Encounter Summary ---
Author Organization [employer] Address [address] 7t [place] [address] Care Team Providers Care Armored Cable Machine Operator Name Role Phone Mirtha Lunsford MD Primary Care Provider Victoria Radford PharmD Unavailable Acosta Sinha Unavailable Unavailable Flip Wan MD Unavailable [phone] Dmitri Sequeira MD Unavailable [phone] Stephane Pisano MD Unavailable [phone] Melvin Claros MD Unavailable Artur Aguilar MD Unavailable [phone] Suzette Bond MD Unavailable Reason for Visit * Reason Comments Med Refill Encounter Details Date Type Department Care Team (Late st Contact Info) Description 01/22/2025 Refill [facility] [address] [place], [place] [phone] Mirtha Lunsford MD [address] [place], [place] [phone] Chronic bilateral low back pain, unspecified whether [...] Description 02/11/2025 8:00 AM EST Office Visit [facility] ADULT DENTAL [address] [place] [address] Rebecca Capps 03/20/2025 10:15 AM EST Office Visit [facility] MEDICINE [address] [place] [address] Mirtha Lunsford MD [address] [place] [address] documented as of this encounter Goals Goal Patient Goal Type Associated Problems Recent Progress Patient-Stated? Author Blood Pressure < 140/90 Blood Pressure 118/80( 025 10:52 AM EST) No Ana-Victoria Swanson, PharmD Reduce tobacco use (cigarettes, smokeless, etc) Tobacco Use No Piers-Gambl e, Victoria, PharmD documented as of this encounter Visit Diagnoses Diagnosis Chronic bilateral low back pain, unspecified whether sciatica present documented in this encounter Additional Health Concerns Assessment Noted Time PHQ-9 Depression Total Score: 0 06/19/19 25 9:06 AM EDT documented as of this encounter Care Teams Armored Cable Machine Operator Relationship Specialty Start Date End Date Mirtha Lunsford MD [address] [place] [address] PCP - General Family Medicine 03/04/15 Victoria Radford, PharmD [address] [place] [address] Pharmacist Internal Medicine 08/03/22 Acosta Sinha FNP [address] [place] [address] Nurse Practitioner Family Medicine 01/17/23 Flip Wan MD [address] [place] [address] Pulmonary Disease 02/02/24 Dmitri Sequeira MD [address] [address] Nephrology 02/10/24 Stephane Pisano MD [address] [place] [address] [address] [place] [address] General Surgery 02/10/24 Melvin Claros MD [address] [place] [address] Cardiology 04/16/24 Artur Aguilar MD [address] [place] [address] Endocrinology 05/31/24 Suzette Bond MD [address] [place] [address] Orthopaedic Surgery 10/03/24 Ghassan Houoie Laundromat WorkerBladder Cleaner 02/07/24June,Joyce Hoover PA-C Lung Cancer Screening Program Radiology 07/31/24 documented as of this encounter
--- OUTSIDE RECORDS SUMMARY | 2025-01-23 13:37 | XMS_ITS | Encounter Summary ---
Author Organization [employer] Address [address] [facility] 7t [place] [address] Care Team Providers Care Clerical Production Worker Name Role Phone Mirtha Lunsford MD Primary Care Provider Victoria Radford PharmD Unavailable Acosta Sinha Unavailable Unavailable Flip Wan MD Unavailable [phone] Dmitri Sequeira MD Unavailable [phone] Stephane Pisano MD Unavailable Melvin Claros MD Unavailable Artur Aguilar MD Unavailable [phone] Suzette Bond MD Unavailable [phone] Reason for Visit * Reason Comments Med Refill Encounter Details Date Type Department Care Team (Late st Contact Info) Description 01/19/2025 Refill [facility] MEDICINE [address] [place], [place] [phone] Mirtha Lunsford MD [address] [place], [place] [phone] Rash Social History Tobacco Use Types Packs/Day [...] Description 02/11/2025 8:00 AM EST Office Visit [facility] ADULT DENTAL [address] [place] [address] Rebecca Capps 03/20/2025 10:15 AM EST Office Visit [facility] MEDICINE [address] [place] [address] Mirtha Lunsford MD [address] [place] [address] documented as of this encounter Goals Goal [...] documented as of this encounter Care Teams Clerical Production Worker Relationship Specialty Start Date End Date Mirtha Lunsford MD [address] [place] [address] PCP - General Family Medicine 03/04/15 Victoria Radford PharmD [address] [place] [address] Pharmacist Internal Medicine 08/03/22 Acosta Sinha FNP [address] [place] [address] Nurse Practitioner Family Medicine 01/17/23 Flip Wan MD 5 [place] [address] Pulmonary Disease 02/02/24 Dmitri Sequeira MD [address] [address] Nephrology 02/10/24 Stephane Pisano MD 11 [facility] 3rd [place] [address] General Surgery 02/10/24 Melvin Claros MD 596 [place] [address] Cardiology 04/16/24 Artur Aguilar MD [address] [address] Endocrinology 05/31/24 Suzette Bond MD [address] [facility] [address] [place] [address] Orthopaedic Surgery 10/03/24 Ghassan Fletcher String Top SealerCoat Room Attendant 02/07/24June,Joyce Hoover PA-C Lung Cancer Screening Program Radiology 07/31/24 documented as of this encounter
--- OUTSIDE RECORDS SUMMARY | 2025-01-23 13:37 | XMS_ITS | Encounter Summary ---
Author Organization [employer] [facility] Address [address] [facility] 7t [place] [address] Care Team Providers Care Airline Hostess Name Role Phone Mirtha Lunsford MD Primary Care Provider Victoria Radford PharmD Unavailable [phone] Acosta Sinha POWDER BLENDER AND POURER Unavailable Unavailable Flip Wan MD Unavailable [phone] Dmitri Sequeira MD Unavailable [phone] Stephane Pisano MD Unavailable [phone] Melvin Claros MD Unavailable Artur Aguilar MD Unavailable [phone] Suzette Bond MD Unavailable Encounter Details Date Type Department Care Team (Latest Contact Info) Description 07/03/2018 Abstract [facility] Dental, Provider, DDS Social History Tobacco [...] AM EST Office Visit [facility] ADULT DENTAL 230 [place], [place] [phone] Rebecca Capps 03/20/2025 10:15 AM EST Office Visit [facility] MEDICINE [address] [place] [address] Mirtha Lunsford MD 230 [place] [address] documented as of this encounter Visit Diagnoses Not on filedocumented in this encounter Care Teams Airline Hostess Relationship Specialty Start Date End Date Mirtha Lunsford MD 230 [place] [address] PCP - General Family Medicine 03/04/15 Victoria Radford, GypsyD [address] [place] [address] Pharmacist Internal Medicine 08/03/22 Acosta Sinha FNP [address] [place] [address] Nurse Practitioner Family Medicine 01/17/23 Flip Wan MD 5 [place] [address] Pulmonary Disease 02/02/24 Dmitri Sequeira MD [address] [address] Nephrology 02/10/24 Stephane Pisano MD 11 [facility] 3rd [place] [address] General Surgery 02/10/24 Melvin Claros MD 596 [place] [address] Cardiology 04/16/24 Artur Aguialr MD [address] [place] [address] Endocrinology 05/31/24 Suzette Bond MD [address] [facility] [address] [place] [address] Orthopaedic Surgery 10/03/24 NARAYAN LICEA IronworkerDirector Of Creative Services 01/06/23 02/06/24 Ghassan Fletcher IronworkerDirector Of Creative Services 02/07/24 May,Joyce Hoover PA-C Lung Cancer Screening Program Radiology 07/31/24 documented as of this encounter
== END 2025-01-23 08:18 | disposition home or self-care (01) ==
LOC: HO.HHCLNP 08:17
PROVIDERS: Visit Provider Emergency Medicine
DX: G56.03 Carpal tunnel syndrome, bilateral upper limbs (principal); R10.10 Upper abdominal pain, unspecified
CPT/HCPCS: 87338; 99212

== ENCOUNTER 2025-01-23 08:17 | Outpatient (AMB) | payer MEDICAID, SELFPAY ==
--- OUTSIDE RECORDS SUMMARY | 2025-01-23 08:25 | XMS_ITS | Clinical Summary ---
Author Organization [facility] Address [address] [place] [address] [place] [address] Phone Care Team Providers Care Instructor Pilot Name Role Phone Demetri Tavia Primary Care Provider [phone] Allergies Active Allergy Reactions Criticality Noted Date [...] plan. Moderate persistent asthma 02/24/202211/18 Overview (11/18/2022): -sharepoint application architect Dr. Wan -continue Flovent -continue Singulair -continue albuterol prn Last Assessment & Plan: -sharepoint application architect Dr. Wan -continue Flovent -continue Singulair -continue [...] 10/24/2014, 06/25/2014, Additional history exists Insurance Medicaid [place] Medicaid [place] Care Teams Instructor Pilot Relationship Specialty Start Date End Date [facility] [address] [facility] [place] [address] PCP - General 04/29/22
--- OUTSIDE RECORDS SUMMARY | 2025-01-23 08:25 | XMS_ITS | Clinical Summary ---
Author Organization [facility] Address [address] [place] [address] Phone Care Team Providers Care Photography Intern Name Role Phone Lucrecia Pitt MD Primary Care Provider [phone] Medications ketoconazole (NIZORAL) 2 % cream Apply topically 1 (one) time each day. 30 g 2 Active Encounters Date Type Department Care Team Description 11/05/2024 10:15 AM EDT Office Visit Orthopedic Surgery [facility] [address] [address] Nick Hooper, DPM Pes planus [...] topic Insurance MEDICAID - [place] Care Teams Photography Intern Relationship Specialty Start Date End Date Lucrecia Pitt MD [address] [facility] 1 [place] [address] PCP - General 09/23/22
--- NOTE | 2025-01-23 08:29 | MHC.OFFVIS ---
Intake Visit Reasons: OV - Discuss Left Carpal Tunnel Release Intake Note: Yuri is a 54 year old right hand dominant male who presents today for a follow up of his Left Carpal Tunnel Syndrome. He is s/p Right Carpal Tunnel Release from 09/17/24 with AR. He would like to discuss moving forward with a Left Carpal Tunnel Release. IMPRESSION 06/20/24: 1. This is an abnormal nerve conduction study. 2. There is electrodiagnostic evidence for left moderate-severe in right mild median neuropathy at the wrist, consistent with carpal tunnel syndrome. 3. There is no electrodiagnostic evidence for ulnar neuropathy. Allergies Iodinated Contrast Media Allergy (Severe, Verified 01/23/25 08:30) Unknown levofloxacin Allergy (Mild, Verified 01/23/25 08:30) Rash ibuprofen (From MOTRIN) Allergy (Unknown, Verified 01/23/25 08:30) KIDNEY ISSUES mushroom Adverse Reaction (Mild, Verified 01/23/25 08:30) VOMITING amlodipine Adverse Reaction (Unknown, Verified 01/23/25 08:30) Swelling HPI HPI OV - Discuss Left Carpal Tunnel Release: Details: Yuri is a 54 year old right hand dominant male who presents today for a follow up of his Left Carpal Tunnel Syndrome. He is s/p Right Carpal Tunnel Release from 09/17/24 with AR. He would like to discuss moving forward with a Left Carpal Tunnel Release. Numbness and tingling is reported to be intermittent, daily, and worse at night in the left hand. Patient denies any new medical diagnoses or new medication since previous evaluation. IMPRESSION 06/20/24: 1. This is an abnormal nerve conduction study. 2. There is electrodiagnostic evidence for left moderate-severe in right mild median neuropathy at the wrist, consistent with carpal tunnel syndrome. 3. There is no electrodiagnostic evidence for ulnar neuropathy. [facility] Medical History History of adenomatous polyp of colon Nicotine dependence, cigarettes, uncomplicated History of rectal polyps Asthma Asthma with exacerbation Hypertension 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 Arthritis Surgical History History of hand surgery History of rectal sphincterotomy History of hydrocelectomy History of colonoscopy History of left nephrectomy H/O neck surgery Previous back surgery Family History Mother Hypertension Asthma Father Medical history unknown Social History Household Members: None Housing: Apartment Do you presently have visiting nurse or other home services: No Alcohol intake: current Alcohol intake frequency: holidays/special occasions only Alcohol type: beer Patient Tobacco Use Status: Current everyday Tobacco user Tobacco use type: Cigarette Years Smoked: (onset 18, 1ppd x 36yrs, 30+PYH) e-Cigarette/Vaping Use: Former Use Second Hand Smoke Exposure: No service: No Current occupational status: unemployed 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 Good APB muscle firing and good finger cross. Vascular: Capillary refill brisk. ROM: Patient can make a fist and extend all their digits. Skin: No lacerations or abrasions noted. General: No ecchymosis. No erythema or evidence of infection. Assessment & Plan Assessment & Plan (1) Bilateral carpal tunnel syndrome: Code(s): G56.03 - Carpal tunnel syndrome, bilateral upper limbs Category: Medical Plan 1. Left carpal tunnel syndrome Symptoms intermittent, daily, worse at night I educated the patient about the condition. I discussed both operative and nonoperative treatment options. The patient would like to proceed with surgery. The risks and benefits of operative treatment were discussed with the patient and the patient wishes to proceed with surgery. These risks include, but are not limited to, risk of damage to blood vessels, nerves, tendons, infection, recurrence, incomplete relief of preoperative symptoms, persistent pain, possible need for further surgery, and the risks associated with regional blocks and/or anesthesia. Plan is to take the patient to the operating room at some point in the next few weeks for the following procedures: 1. Left carpal tunnel release under local All of the preoperative paperwork including the consent was discussed today. All of the patient's questions were answered in the clinic today. The patient understands that they will be in contact with our regional vice president surgical sales to discuss scheduling their procedure. Patient denies diabetes, blood thinners, asthma, heart issues, lung issues, kidney issues, or current smoking. 2. Status post right carpal tunnel release DOS 09/17/2024 With complete symptomatic resolution postoperatively Patient appears to have recovered very well No further intervention indicated Coding Level of Care Code Est Pt Level 4 (36413) Diagnoses Bilateral carpal tunnel syndrome G56.03
== END 2025-01-23 09:08 | disposition home or self-care (01) ==
LOC: HO.HOS 08:18
PROVIDERS: PCP Family Medicine
DX: G56.03 Carpal tunnel syndrome, bilateral upper limbs (principal)
CPT/HCPCS: 99214